=== PATIENT | female | born 1975 | race Caucasian/White ===

== ENCOUNTER 2024-04-22 00:16 | Outpatient (CLI) | payer MEDICARE, SELFPAY ==
--- NOTE | 2024-04-22 | DI.US_ITS ---
Exam(s) US RENAL EXAM: US RENAL CLINICAL HISTORY: Urinary retention, R33.9; assess for hydro and f/u on renal cysts TECHNIQUE: Ultrasound of both kidneys performed using standard protocol. COMPARISON: No exams were available for comparison FINDINGS: RIGHT KIDNEY: Measures 9.2 cm in length. There is somewhat decreased corticomedullary differentiation implying chr onic renal disease, similar to the opposite side.. There are cortical cysts seen in both kidneys, la rgest on the right side measuring 1.3 x 1.5 cm. No solid renal masses. However, there are multiple tiny hyperechoic foci seen throughout the kidney, similar to the opposite side. These are probably t iny nonobstructive calculi LEFT KIDNEY: Exhibits similar appearance to the right kidney. Measures 9.4 cm in length. Also exhibits decreased corticomedullary differentiation, similar to the opposite side. There are few cortical cysts also noted the largest measuring 1.0 x 1.4 cm. This is at the midpole level. There are no solid renal masses but there also multiple small hyperechoic foci seen throughout the left kidney similar to the opposite side. URINARY BLADDER: Prevoid volume is 562 cc Postvoid volume is 11 cc No evidence of bladder mass nor diverticuli. However, the bladder wall is indented by what appears t o be a lobulated fibroid uterus. Ureterovesical jets: Both not able to be visualized. IMPRESSION: 1. Both kidneys exhibit symmetrical appearing decreased corticomedullary differentiation and multipl e hyperechoic foci throughout both kidneys, possibly representing nonobstructive calculi. Appearance of the kidneys is that of chronic bilateral medical renal disease. There are no solid renal masses and no hydronephrosis. 2. Urinary bladder empties adequately. There is no obvious mass within the urinary bladder but the urinary bladder is significantly indented by enlarged lobulated fibroid appearing uterus. Recommend dedicated ultrasound examination of uterus to differentiate fibroids from endometrium and endometrial thickness as well as visualization of the ovaries. DATA REPOSITORY:
--- OUTSIDE RECORDS SUMMARY | 2024-04-22 00:18 | XMS_ITS | Encounter Summary ---
Author Organization [facility] [place] [address] Care Team Providers Care Resort Manager Name Role Phone Haylie Steward MD Primary Care Provider + [phone] Encounter Details Date Type Department Care Team (Latest Contact Info) Description 04/18/2024 Travel Social History Tobacco Use Types Packs/Day Years Used Date Smoking Tobacco: Never Smokeless Tobacco: Never Alcohol Use Standard Drinks/Week Comments Not Currently 0 (1 standard drink = 0.6 oz pur e alcohol) [id number] Health Literacy Answer Date Recor ded How often do you need to hav e someone help you when you read instructions, pamphlets, or other written material from your doctor or pharmacy? Rarely 02/15/2024 [facility] Utilities Answer Date Recorded In the past 12 months has th e electric, gas, oil, or water company threatened to shut off services in your home? No 02/15/2024 Overall Financial Resource Strain (CARDIA) Answe r Date Recorded How hard is it for you to pa y for the very basics like food, housing, medical care, and heating? Not hard at all 02/15/2024 Hunger Vital Sign Answer Date Recorded Within the past 12 months, y ou worried that your food would run out before you got the money to buy more. Never true 02/15/20 24 Within the past 12 months, t he food you bought just didn't last and you didn't have money to get more. Never true 02/15/2024 PRAPARE - Transportation Answer Date Re corded In the past 12 months, has l ack of transportation kept you from medical appointments or from getting medications? No 02/01 In the past 12 months, has l ack of transportation kept you from meetings, work, or from getting things needed for daily living? No 02/15/2024 Housing Stability Vital Sign Answer Jevon e Recorded In the last 12 months, was t here a time when you were not able to pay the mortgage or rent on time? Patient declined 02/15/20 24 In the past 12 months, how m any times have you moved where you were living? 0 02/15/2024 At any time in the past 12 m onths, were you homeless or living in a care home (including now)? No 02/15/2024 [facility] IPV Inpatient Questions Answer Date Recorded Does Anyone Try to Keep You From Having Contact with Others or Doing Things Outside Your Home? no 02/29/2024 Feels Threatened by Someone no 02/02 Feels Unsafe at Home or Work/School no 02/29/2024 Physical Signs of Abuse Present no 02/29/2024 Sex and Gender Information Value Date Recorded Sex Assigned at Female 02/25/2023 12:01 PM EDT Gender Identity Female 02/25/2023 12:01 PM EDT Sexual Orientation Straight 02/25/2023 12 :01 PM EDT documented as of this encounter Plan of Treatment Upcoming Encounters Date Type Department Care Team (Latest Contact Info) Description 04/22/2024 9:45 AM EST Scheduled View Only Radiation Oncology at [address] [phone] 04/25/2024 8:30 AM EST Scheduled View Only Radiation Oncology at [address] [phone] 04/26/2024 3:00 PM EST Scheduled View Only Radiation Oncology at [address] [phone] 04/26/2024 3:30 PM EST Office Visit Radiation Oncology at [address] [phone] Ofe Fonseca MD [facility] [place] [address] 04/28/2024 2:45 PM EST Scheduled View Only Radiation Oncology at [address] [phone] 04/29/2024 3:00 PM EST Scheduled View Only Radiation Oncology at [address] [address] 05/02/2024 3:45 PM EST Scheduled View Only Radiation Oncology at [address] [phone] 05/03/2024 1:45 PM EST Scheduled View Only Radiation Oncology at [address] [address] 05/03/2024 2:15 PM EST Office Visit Radiation Oncology at [address] [phone] Ofe Fonseca MD [facility] [place] [address] 05/05/2024 8:15 AM EST Scheduled View Only Radiation Oncology at [address] [address] 05/06/2024 12:30 PM EST Scheduled View Only Radiation Oncology at [address] [phone] 05/09/2024 3:00 PM EST Scheduled View Only Radiation Oncology at [address] [address] 05/10/2024 2:30 PM EST Scheduled View Only Radiation Oncology at [address] [phone] 05/10/2024 3:15 PM EST Office Visit Radiation Oncology at [address] [address] Ofe Fonseca MD [facility] [place] [address] 05/11/2024 2:45 PM EST Scheduled View Only Radiation Oncology at [address] [phone] 06/03/2024 3:30 PM EST Appointment Ultrasound at [place] [phone] Mira Hutchison [facility] [place] [address] 06/23/2024 4:00 PM EST Appointment Mammography/DXA at [place] [phone] Miryam Feliciano MD [facility] [place] [address] 07/12/2024 8:00 AM EDT Laboratory Appointment Lab [address] [place], [place] [phone] 07/12/2024 9:30 AM EDT Office Visit Nephrology Hypertension at [place] [phone] Sharmin Jean-Baptiste, [facility] [place] [address] 07/13/2024 10:30 AM EDT Laboratory Appointment [place] [facility] [address] [place] [phone] 07/13/2024 11:30 AM EDT Office Visit Hematology [place] [phone] Salena Alvares, [facility] [place] [address] 07/13/2024 12:45 PM EDT Appointment Hematology and Oncology at [place] [phone] documented as of this encounter Visit Diagnoses Not on filedocumented in this encounter Care Teams Resort Manager Relationship Specialty Start Date End Date Haylie Steward MD [facility] [place] [place] [address] PCP - General General Internal Medicine 08/04/22 documented as of this encounter
--- OUTSIDE RECORDS SUMMARY | 2024-04-22 00:18 | XMS_ITS | Encounter Summary ---
Author Organization [facility] [place] [address] Care Team Providers Care Circuit Breaker Mechanic Name Role Phone Haylie Steward MD Primary Care Provider + [phone] Encounter Details Date Type Department Care Team (Latest Contact Info) Description 04/20/2024 Travel Social History Tobacco Use Types Packs/Day [...] from your doctor or pharmacy? Rarely 02/15/2024 [facility] Utilities Answer Date Recorded In the past [...] were you homeless or living in a assisted (including now)? No 02/15/2024 [facility] IPV Inpatient [...] EST Scheduled View Only Radiation Oncology at [address] [address] 04/25/2024 8:30 AM EST Scheduled View Only Radiation Oncology at [address] [phone] 04/26/2024 3:00 PM EST Scheduled View Only Radiation Oncology at [address] [phone] 04/26/2024 3:30 PM EST Office Visit Radiation Oncology at [address] [phone] Ofe Fonseca MD [facility] [place] [address] 04/28/2024 2:45 PM EST Scheduled View Only Radiation Oncology at [address] [address] 04/29/2024 3:00 PM EST Scheduled View Only Radiation Oncology at [address] [address] 05/02/2024 3:45 PM EST Scheduled View Only Radiation Oncology at [address] [phone] 05/03/2024 1:45 PM EST Scheduled View Only Radiation Oncology at [address] [phone] 05/03/2024 2:15 PM EST Office Visit Radiation Oncology at [address] [address] Ofe Fonseca MD [facility] [place] [address] 05/05/2024 8:15 AM EST Scheduled View Only Radiation Oncology at [address] [address] 05/06/2024 12:30 PM EST Scheduled View Only Radiation Oncology at [address] [address] 05/09/2024 3:00 PM EST Scheduled View Only Radiation Oncology at [address] [address] 05/10/2024 2:30 PM EST Scheduled View Only Radiation Oncology at [address] [address] 05/10/2024 3:15 PM EST Office Visit Radiation Oncology at [address] [address] Ofe Fonseca MD [facility] [place] [address] 05/11/2024 2:45 PM EST Scheduled View Only Radiation Oncology at [address] [address] 06/03/2024 3:30 PM EST Appointment Ultrasound at [place] [phone] Mira Hutchison [facility] [place] [address] 06/23/2024 4:00 PM EST Appointment Mammography/DXA at [place] [phone] Miryam Feliciano MD [facility] [place] [address] 07/12/2024 8:00 AM EDT Laboratory Appointment Lab [address] [place], [place] [phone] 07/12/2024 9:30 AM EDT Office Visit Nephrology Hypertension at [place] [phone] Sharmin Jean-Baptiste, [facility] [place] [address] 07/13/2024 10:30 AM EDT Laboratory Appointment [place] [facility] [place] [address] [place] [phone] 07/13/2024 11:30 AM EDT Office Visit Hematology [place] [phone] Salena Alvares, [facility] [place] [address] 07/13/2024 12:45 PM EDT Appointment Hematology and Oncology at [place] [phone] documented as of this encounter Visit Diagnoses Not on filedocumented in this encounter Care Teams Circuit Breaker Mechanic Relationship Specialty Start Date End Date Haylie Steward MD [facility] [place] [address] PCP - General General Internal Medicine 08/04/22 documented as of this encounter
--- OUTSIDE RECORDS SUMMARY | 2024-04-22 00:18 | XMS_ITS ---
[place] [address] Care Team Providers Care Assembler Skylights Name Role Phone Haylie Steward MD Primary Care Provider [phone] Active Problems Problem Noted Date Diagnosed Date Malignant neoplasm of lower- inner quadrant of left breast in female, estrogen receptor positive 01/19/2024 Overview (01/19/2024): 01/14/24 bx [place]: ER+/ID+/HER2 pending left breast IDC, low grade, and DCIS, low grade 01/14/24 left breast U/S bx [place]: 1.3 cm, 7:00, 3 FN Bipolar 1 disorder 07/15/2023 [place] intoxication, accide ntal or unintentional, initial encounter 09/06/2022 CKD (chronic kidney disease) stage 2, GFR 60-89 ml/min 08/08/2022 Hyperparathyroidism 08/08/2022 Anemia 08/08/2022 Chronic pansinusitis 08/13/2020 Chronic tonsillitis 08/13/2020 White coat syndrome without diagnosis of hyperte nsion 07/15/2018 Abnormal antibody titer 11/29/2017 Herpes zoster without complication 11/29/2017 Bipolar affective, mixed 03/03/2016 Overview (10/01/2022): On lithium since 2003 On lithium since 2003 Overview: On lithium since 2003 H/O toe surgery 03/03/2016 Hypothyroidism 03/03/2016 Irritable bowel syndrome 03/03/2016 Overview (10/01/2022): Uses Lotronex Uses Lotronex Overview: Uses Lotronex Benign neoplasm of skin 08/10/2013 Current Oncology Plans Goserelin (Zoladex) [place] [place] 10.8 mg* Plan Start Date:04/15/2024 Plan Provider:Miryam Feliciano MD Linked Problems Malignant neoplasm of lower- inner quadrant of left breast in female, estrogen receptor positive Treatment Medications No medications scheduled. Past Plans No past plan information found. Radiation Treatments * No radiation treatments are documented for this patient in [facility]. Treatments may have been administered in another system.
--- OUTSIDE RECORDS SUMMARY | 2024-04-22 00:18 | XMS_ITS | Clinical Summary ---
Author Organization [facility] Address [facility] [place] [address] Care Team Providers Care Hospital Coordinator Name Role Phone Haylie Steward MD Primary Care Provider [phone] Allergies Active Allergy Reactions Criticality Noted Date Comments Ibuprofen Low 08/10/2013 Patient states it affects her bipolar medication [place]. Nsaids (Non-Steroidal Anti-Inflammatory Drug) 03/03/2016 All interfere with lithium Tolmetin 03/03/2016 All interfere with lithium Medications Medication Sig Dispensed Refills Start Date End Date Status clonazePAM (KlonoPIN) 0.5 mg disintegrating tablet Take 0.5 mg by mouth daily as needed. Active acetaminophen (Tylenol) 500 mg tablet Take 1,000 mg by mouth every 6 hours as needed for Pain. Active calciTRIoL (Rocaltrol) 0.25 mcg capsuleIndications:S tage 3a chronic kidney disease (CKD) Take 1 capsule by mouth daily. 90 tablet 3 07/28/2023 Active zolpidem (Ambien) 5 mg tablet Take 1 tablet by mouth nightly as needed for Sleep. 10 tablet 1 02/08/2024 Active Additional Information Patient not taking.Reported on 04/19/2024 Bifidobacterium infantis (ALIGN) 4 mg Capsule Take by mouth. Active loperamide (Imodium A-D) 2 mg capsule Take 2 mg by mouth 4 times daily as needed for Diarrhea. Takes one tablet twice daily Active psyllium seed, with sugar, (FIBER ORAL) Take by mouth 3 times daily. Active emollient combination no.111 (REMEDY PHYTOPLEX MOISTURIZER TOP) Apply topically. Phytoplex Remedy Moisturizer: Apply to area of radiation twice a day but no less than 2 hours before a treatment. Active divalproex ER (Depakote ER) 250 mg ER 24 hr tablet 2 tabs AM and 3 tabs PM. 150 tablet 2 03/23/2024 Active buPROPion XL (Wellbutrin XL) 150 mg XL 24 hr tablet Take 1 tablet by mouth every morning. 90 tablet 03/23/2024 Active pilocarpine (Salagen) 5 mg tablet Take 1 tablet by mouth 3 times daily. 90 tablet 2 03/23/2024 Active cariprazine (Vraylar) 1.5 mg capsule 03/23/2021 Active multivitamin with minerals (One-A-Day) Tablet Take 1 tablet by mouth. Active letrozole (Femara) 2.5 mg tablet Take 1 tablet by mouth daily. Please call clinic before starting. 90 tablet 3 04/15/2024 Active Additional Information Patient not taking.Reported on 04/19/2024 Active Problems Problem Noted Date Diagnosed Date Malignant neoplasm of lower- inner quadrant of left breast in female, estrogen receptor positive 01/19/2024 Overview (01/19/2024): 01/14/24 bx [place]: ER+/MS+/HER2 pending left breast IDC, low grade, and DCIS, low grade 01/14/24 left breast U/S bx [place]: 1.3 cm, 7:00, 3 FN Bipolar 1 disorder 07/15/2023 [place] intoxication, accide ntal or unintentional, initial encounter [...] Uses Lotronex Benign neoplasm of skin 08/10/2013 Encounters Date Type Department Care Team Description 04/20/2024 Travel 04/19/2024 11:00 AM EST Office Visit Radiation Oncology at [address] [phone] Ofe Fonseca MD Malignant neoplasm of lower-inner quadrant of left breast in female, estrogen receptor positive 04/18/2024 Travel 04/15/2024 2:42 PM EST - 04/15/2024 11:59 PM EST Hospital Encounter Hematology and Oncology at [place] [phone] Malignant neoplasm of lower-inner quadrant of left breast in female, estrogen receptor positive Discharge Disposition: Home 04/15/2024 Travel 04/15/2024 Orders Only Hematology [place] [phone] Salena Alvares APRN 04/14/2024 9:20 AM EST [place] [address] Mira Hutchison, JULIUS Urinary retention 04/14/2024 Telephone Hematology [place] [phone] Haylie Pinzon, bull chain operator Management (Misc questions about AI and [place]) 04/13/2024 Travel 04/13/2024 Telephone Hematology [place] [phone] Kimberlee Kennedy RN 04/12/2024 12:15 PM EST Office Visit Radiation Oncology at [address] [phone] Ofe Fonseca MD Malignant neoplasm of lower-inner quadrant of left breast in female, estrogen receptor positive 04/11/2024 9:40 AM EST Office Visit Neph[place] [address] Sharmin Jean-Baptiste APRN CKD (chronic kidney disease) stage 2, GFR 60-89 ml/min; Vitamin D deficiency; Stress incontinence, female 04/11/2024 8:30 AM EST Laboratory Appointment Lab [address] [place] [address] CKD (chronic kidney disease) stage 2, GFR 60-89 ml/min; Vitamin D deficiency 04/11/2024 Travel 04/08/2024 Travel 04/07/2024 3:30 PM EST Office [place] [address] Yoselin Rolle APRN Malignant neoplasm of lower-inner quadrant of left breast in female, estrogen receptor positive 04/07/2024 2:00 PM EST Office Visit Hematology [place] [address] Miryam Feliciano MD Malignant neoplasm of lower-inner quadrant of left breast in female, estrogen receptor positive; Aromatase inhibitor use; Medication management 04/07/2024 Travel 03/22/2024 12:30 PM EST Ancillary Appointment Radiation Oncology at [address] [address] Ofe Fonseca MD Malignant neoplasm of lower-inner quadrant of left breast in female, estrogen receptor positive 03/22/2024 Notes Only Radiation Oncology at [address] [phone] Anusha Washburn, GRAIN MIXER 03/22/2024 Travel 03/22/2024 Orders [place] [address] Ofe Fonseca MD Malignant neoplasm of lower-inner quadrant of left breast in female, estrogen receptor positive 03/20/2024 Travel 03/15/2024 2:55 PM EST Laboratory Appointment Lab [address] [place] [address] Bipolar 1 disorder 03/15/2024 Travel 03/01/2024 Telephone General [place] [address] Danelle Davis RN 02/29/2024 2:30 PM EDT - 02/29/2024 3:48 PM EDT Surgery Out[facility] [place] [phone] Hailey Dawson MD MASTECTOMY PARTIAL (WRVU 10.13) 02/29/2024 2:05 PM EDT Anesthesia Event Outpatient Surgery [place] [phone] Obdulio Herring MD Mancini, Amy L, [facility] 02/29/2024 1:00 PM EDT - 02/29/2024 4:42 PM EDT Hospital Encounter Out[facility] [place] [phone] Hailey Dawson MD Discharge Disposition: Home 02/22/2024 9:00 AM EDT Office Visit Radiation Oncology at [address] [phone] Ofe Fonseca MD Malignant neoplasm of lower-inner quadrant of left breast in female, estrogen receptor positive 02/22/2024 Travel 02/15/2024 External Results Laboratory [place] [phone] 02/15/2024 Travel 02/12/2024 Telephone Hematology and Oncology at [place] [phone] Sharmin Farnsworth Other (02/11 - Oncotype submitted) 02/11/2024 Notes Only Hematology and Oncology at [place] [phone] Miryam Feliciano MD 02/05/2024 1:12 PM EDT Anesthesia Event [place] [place] [address] Betsy Alcaraz MD 02/05/2024 12:40 PM EDT - 02/05/2024 2:37 PM EDT Surgery [facility] [place] [phone] Hailey Dawson MD MASTECTOMY PARTIAL (WRVU 10.13) 02/05/2024 12:30 PM EDT - 02/05/2024 11:59 PM EDT Hospital [place] [address] Hailey Dawson MD History of breast cancer Discharge Disposition: Home 02/05/2024 12:00 PM EDT - 02/05/2024 12:29 PM EDT Hospital [place] [address] Hailey Dawson MD History of breast cancer Discharge Disposition: Home 02/05/2024 11:12 AM EDT - 02/05/2024 4:30 PM EDT Hospital Encounter Outpatient [facility] [place] [phone] Hailey Dawson MD Discharge Disposition: Home 02/04/2024 Telephone Mammography at [place] [phone] Glendy Tovar, RN 02/02/2024 Patient Outreach Hematology and Oncology at [place] [phone] Alma Moseley RN 02/01/2024 8:50 AM EDT - 02/01/2024 11:59 PM EDT Hospital [place] [address] Aleida Sosa MD Abnormal finding on breast imaging Discharge Disposition: Home 02/01/2024 8:49 AM EDT Hospital [place] [address] Hailey Dawson MD History of breast cancer Discharge Disposition: Home 02/01/2024 8:49 AM EDT Hospital [place] [address] Aleida Sosa MD Abnormal finding on breast imaging Discharge Disposition: Home 02/01/2024 Travel 01/28/2024 8:05 AM EDT Laboratory Appointment Lab [place] [address] Bipolar 1 disorder 01/28/2024 Orders Only General Surgery at [place] [phone] Hailey Dawson MD History of breast cancer 01/28/2024 Travel 01/26/2024 Travel 01/26/2024 Patient Outreach Hematology and Oncology at [place] [phone] Alma Moseley RN 01/25/2024 12:51 PM EDT - 01/25/2024 11:59 PM EDT Hospital [place] [address] Martha Martino MD Abnormal finding on breast imaging Discharge Disposition: Home 01/25/2024 7:00 AM EDT Office [place] [address] Hailey Dawson MD History of breast cancer; Malignant neoplasm of lower-inner quadrant of left breast in female, estrogen receptor positive 01/25/2024 Patient Outreach Hematology [place] [address] Alma Moseley RN 01/24/2024 Travel 01/22/2024 Patient Outreach Hematology [place] [address] Alma Moseley, RN from Last 3 Months Immunizations Name Administration Dates Next Due Hepatitis B Adult (Engerix-B, Recombivax) 2018 Influenza (FluBlok) Quadriva lent, Recombinant Preservative Free 01/24/2020 Influenza Quadrivalent, Preservative Free 2018,05/24/2018 Influenza Unspecified Formulation 02/22/2017 MMR Vaccine LIVE 04/21/2018 Tdap (Adacel, Boostrix) 11/19/2017 Tuberculin Skin Test, PPD 11/19/2017 Family History Medical History Relation Comments Prostate Cancer Father Prostate Cancer Maternal Grandfather Arrhythmia Mother Bladder Cancer Mother Melanoma Mother Cancer Paternal Aunt salivary gland c ancer Pancreatic Cancer Paternal Aunt Prostate Cancer Paternal Uncle Breast Cancer Neg Hx Ovarian Cancer Neg Hx Relation Status Comments Father Alive Maternal Grandfather Mother Alive Paternal Aunt Alive Paternal Uncle Alive Social History Tobacco Use Types Packs/Day Years Used Date Smoking Tobacco: Never Smokeless Tobacco: Never Tobacco Cessation:Counseling Given: Not Answered Alcohol Use Standard Drinks/Week Comments Not Currently 0 (1 standard drink = 0.6 oz pur e alcohol) B1300 Health Literacy Answer Date Recor ded How often do you need to hav e someone help you when you read instructions, pamphlets, or other written material from your doctor or pharmacy? Rarely 02/15/2024 [facility] Utilities Answer Date Recorded In [...] were you homeless or living in a snf (including now)? No 02/15/2024 [facility] IPV Inpatient [...] Orientation Straight 02/25/2023 12 :01 PM EDT Last Filed Vital Signs Vital Sign Reading Time Taken Comments Blood Pressure 144/74 04/19/2024 11:12 AM EST Pulse 69 04/19/2024 11:12 AM EST Temperature 37.1 ??C (98.8 ??F) 04/19/2024 1 1:12 AM EST Respiratory Rate 16 04/19/2024 11:1 2 AM EST Oxygen Saturation 100% 04/19/2024 11: 12 AM EST Inhaled Oxygen Concentration - - Weight 65.7 kg (144 lb 12.8 oz) 024 11:12 AM EST Height 157.5 cm (5' 2.01) 04/12/2024 1 2:02 PM EST Body Mass Index 26.48 04/12/2024 12:02 PM EST Plan of Treatment Upcoming Encounters Date Type Department Care Team (Latest Contact Info) Description 04/22/2024 9:45 AM EST Scheduled View Only Radiation Oncology at [address] [phone] 04/25/2024 8:30 AM EST Scheduled View Only Radiation Oncology at [address] [phone] 04/26/2024 3:00 PM EST Scheduled View Only Radiation Oncology at [address] [phone] 04/26/2024 3:30 PM EST Office Visit Radiation Oncology at [address] [phone] Ofe Fonseca MD [facility] [place] [address] 04/28/2024 2:45 PM EST Scheduled View Only Radiation Oncology at [address] [phone] 04/29/2024 3:00 PM EST Scheduled View Only Radiation Oncology at [address] [phone] 05/02/2024 3:45 PM EST Scheduled View Only Radiation Oncology at [address] [phone] 05/03/2024 1:45 PM EST Scheduled View Only Radiation Oncology at [address] [address] 05/03/2024 2:15 PM EST Office Visit Radiation Oncology at [address] [phone] Ofe Fonseca MD [facility] [place] [address] 05/05/2024 8:15 AM EST Scheduled View Only Radiation Oncology at [address] [address] 05/06/2024 12:30 PM EST Scheduled View Only Radiation Oncology at [address] [phone] 05/09/2024 3:00 PM EST Scheduled View Only Radiation Oncology at [address] [phone] 05/10/2024 2:30 PM EST Scheduled View Only Radiation Oncology at [address] [phone] 05/10/2024 3:15 PM EST Office Visit Radiation Oncology at [address] [phone] Ofe Fonseca MD [facility] [place] [address] 05/11/2024 2:45 PM EST Scheduled View Only Radiation Oncology at [address] [address] 06/03/2024 3:30 PM EST Appointment Ultrasound at [place] [phone] Mira Hutchison [facility] [place] [address] 06/23/2024 4:00 PM EST Appointment Mammography/DXA at [place] [phone] Miryam Feliciano MD [facility] [place] [address] 07/12/2024 8:00 AM EDT Laboratory Appointment Lab [place] [phone] 07/12/2024 9:30 AM EDT Office Visit Nephrology Hypertension at [place] [phone] Sharmin Jean-Baptiste [facility] [place] [address] 07/13/2024 10:30 AM EDT Laboratory Appointment Lab at [facility] Hematology Oncology [address] [place] [phone] 07/13/2024 11:30 AM EDT Office Visit Hematology and Oncology at [place] [phone] Salena Alvares APRN [facility] [place] [address] 07/13/2024 12:45 PM EDT Appointment Hematology and Oncology at [facility] [place] [phone] Health Maintenance Due Date Last Done Comments CT Colonography 1974 FIT DNA 1974 FIT 1974 Sigmoidoscopy 1974 Pneumococcal Vaccine: At-Ris k 5-64yrs (1 of 2 - PCV) 02/24/1980 HIV screen 02/24/1992 Hepatitis C Screening 02/24/1992 HPV test 02/24/2004 PAP Smear 02/24/2004 Breast Cancer Share Decision Needed 2014 Hepatitis B vaccine (0-59 yrs) (2) 06/29/20182018 Covid-19 Vaccine (2 - 2023-2 5 season) 2024 04/12/2021 Influenza (Flu) vaccine (1 o f 1 - Influenza standard series) 01/03/2024 01/24/2020, 01/18/2019, 05/24/2018, Additional history exists Zoster vaccine (1 of 2) 02/24/2024 Breast Cancer screening 01/13/2026 01/14/20, 11/10/2022, 11/10/2022 Diabetes Screening (HgbA1C o r Glucose) 04/11/2027 04/11/2024, 01/21/2024, 10/26/2023, Additional history exists Lipid Screening 06/25/2027 06/25/2022 Tetanus/Diphtheria/Pertussis Vaccines (2 - Td or Tdap) 11/20/2027 11/19/2017 Colonoscopy 06/11/2033 06/11/2023, 06/11/2023 Colorectal Cancer Screening 06/11/2033 Sigmoidoscopy (10 year) with FIT yearly 06/11/2033 06/11/2023, 06/11/2023 Procedures Procedure Name Priority Date/Time Associated Diagnosis Comments URINALYSIS MICROSCOPIC EXAM Routine 04/11/2024 9:07 AM EST CKD (chronic kidney disease) stage 2, GFR 60-89 ml/min URINALYSIS DIPSTICK Routine 04/11/2024 9 :07 AM EST CKD (chronic kidney disease) stage 2, GFR 60-89 ml/min _URINALYSIS WITH MICRSOCOPIC Routine 04/11/2024 9:07 AM EST CKD (chronic kidney disease) stage 2, GFR 60-89 ml/min PROTEIN/CREATININE RATIO, URINE Routine 04/11/2024 9:07 AM EST CKD (chronic kidney disease) stage 2, GFR 60-89 ml/min ALBUMIN LEVEL Routine 04/11/2024 9:05 AM EST CKD (chronic kidney disease) stage 2, GFR 60-89 ml/min BASIC METABOLIC PANEL Routine 04/11/2024 9:05 AM EST CKD (chronic kidney disease) stage 2, GFR 60-89 ml/min CBC (WITH DIFF) Routine 04/11/2024 9:05 AM EST CKD (chronic kidney disease) stage 2, GFR 60-89 ml/min FERRITIN Routine 04/11/2024 9:05 AM EST CKD (chronic kidney disease) stage 2, GFR 60-89 ml/min IRON AND TIBC Routine 04/11/2024 9:05 AM EST CKD (chronic kidney disease) stage 2, GFR 60-89 ml/min PHOSPHORUS Routine 04/11/2024 9:05 AM EST CKD (chronic kidney disease) stage 2, GFR 60-89 ml/min PTH Routine 04/11/2024 9:05 AM EST CKD (chronic kidney disease) stage 2, GFR 60-89 ml/min VITAMIN D, 25-HYDROXY Routine 04/11/2024 9:05 AM EST CKD (chronic kidney disease) stage 2, GFR 60-89 ml/min Vitamin D deficiency CT RAD ONC CHEST INTERP ONLY Routine 03/22/2024 1:33 PM EST Carcinoma of lower-inner quadrant of breast, left TSH Routine 03/15/2024 12:27 PM EST Bipolar 1 disorder T4, FREE Routine 03/15/2024 12:27 PM EST Bipolar 1 disorder T3, FREE Routine 03/15/2024 12:27 PM EST Bipolar 1 disorder T4 TOTAL Routine 03/15/2024 12:27 PM EST Bipolar 1 disorder T3 TOTAL Routine 03/15/2024 12:27 PM EST Bipolar 1 disorder XR FLUORO NO RAD <1HR - OR USE Routine 02/29/2024 3:25 PM EDT MAMMO SPECIMEN LEFT Routine 02/29/2024 3 :20 PM EDT SURGICAL PATHOLOGY Routine 02/29/2024 3: 16 PM EDT MODIFIER MAGSEED Yes 02/29/2024 2:07 PM EDT BREAST CANCER MODIFIER , RE-EXCISION Yes 02/29/2024 2:07 PM EDT BREAST CANCER Mastectomy Partial ([id number]) Yes 02/29/2024 2:07 PM EDT BREAST CANCER GENETIC STUDY SCAN 02/24/2024 12 :00 AM EDT SURGICAL PATHOLOGY SCAN Routine 02/15/2024 1:24 PM EDT MAMMO SPECIMEN LEFT Routine 02/05/2024 2 :53 PM EDT History of breast cancer MAMMO SPECIMEN LEFT Routine 02/05/2024 2 :24 PM EDT History of breast cancer SURGICAL PATHOLOGY Routine 02/05/2024 2: 03 PM EDT MODIFIER MAGSEED Yes 02/05/2024 1:12 PM EDT breast cancer Intraop [place] Lymph Id W/Dye Injection ([id number]) Yes 02/05/2024 1:12 PM EDT breast cancer Bx/Remv, Lymph Node, Deep Axill ([id number]) Yes 02/05/2024 1:12 PM EDT breast cancer Mastectomy Partial ([id number]) Yes 02/05/2024 1:12 PM EDT breast cancer MAMMO DIAGNOSTIC WITHOUT CAD LEFT Routine 02/01/2024 10:36 AM EDT Abnormal finding on breast imaging MAMMO MAGSEED PLACEMENT MULTIPLE LEFT Routine 02/01/2024 10:17 AM EDT History of breast cancer MAMMO US BIOPSY MULTIPLE LEFT Routine 02/01/2024 10:17 AM EDT Abnormal finding on breast imaging SURGICAL PATHOLOGY Routine 02/01/2024 10 :06 AM EDT Abnormal finding on breast imaging VALPROIC ACID LEVEL, TOTAL Routine 01/28/2024 8:10 AM EDT Bipolar 1 disorder MAMMO BREAST US LIMITED LEFT Routine 01/25/2024 1:45 PM EDT Abnormal finding on breast imaging MAMMO SCREENING CAD BILATERAL (CH) Routine 01/14/2024 8:39 AM EDT COLONOSCOPY Routine 06/11/2023 3:10 PM EST HC VENIPUNCTURE Routine 06/25/2022 9:49 AM EST Bipolar affective disorder, remission status unspecified from Last 3 Months or Most Recently Relevant to Health Maintenance Results * Urinalysis Microscopic Exam (04/11/2024 9:07 AM EST) Bacteria, Urine None None /HPF 10:15 AM EST [facility] RBC, Urine 0 0 - 4 /HPF 04/11/2024 10:15 AM EST [facility] WBC, Urine 0 0 - 5 /HPF 04/11/2024 10:15 AM [facility] Squamous Epithelial Cells, Urine 0 0 - 5 /HPF 04/11/2024 10:15 AM [facility] Hyaline Casts, Urine 0 0 - 2 /LPF 04/11/2024 10:15 AM [facility] Urine Non Blood Collection / Unknown 04/11/2024 9:07 AM EST 04/11/2024 9:07 AM EST Sharmin eJan-Baptiste APRN URINE ORDERABLES Performing Organization Address City/[facility]/ZIP Co de Phone Number [facility] [place] [address] * Protein/Creatinine Ratio, urine (04/11/2024 9:07 AM EST) Protein, Urine <4 0 - 12 mg/dL 04/11/2024 10:07 AM [facility] Creatinine, Urine 10 mg/dL 04/11/2024 10:07 AM [facility] Protein / Creatinine Ratio, Urine <0.4 ratio 04/11/2024 10:07 AM [facility] Urine URINE SPECIMEN / Unknown Non Blood Collection / Unknown 04/11/2024 9:07 AM EST 04/11/2024 9:07 AM EST Sharmin Jean-Baptiste APRN URINE ORDERABLES Performing Organization Address City/[facility]/ZIP Co de Phone Number [facility] [place] [address] * Urinalysis Dipstick (04/11/2024 9:07 AM EST) Glucose, Urine Dipstick Negative Negative 04/11/2024 10:15 AM [facility] Protein, Urine Dipstick Negative Negative 04/11/2024 10:15 AM [facility] Bilirubin, Urine Dipstick Negative Negative 04/11/2024 10:15 AM [facility] Comment:Clinical correlation required for positive Urine Bilirubin results as false positive may occur with some drugs and drug related products. If a false positive is suspected a serum total bilirubin should be considered if clinically indicated. Urobilinogen, Urine Dipstick Normal Normal, 0.2 mg/dL, 1.0 mg/dL 04/11/2024 10:15 AM [facility] pH, Urine (dipstick) 7.0 5.0 - 8.0 04/11/2024 10:15 AM [facility] Blood, Urine Dipstick Negative Negative 04/11/2024 10:15 AM [facility] Ketone, Urine Dipstick Negative Negative 04/11/2024 10:15 AM [facility] Nitrite, Urine Dipstick Negative Negative 04/11/2024 10:15 AM [facility] Leukocytes, Urine Dipstick Negative Negative 04/11/2024 10:15 AM [facility] Specific [place] Urine Automated 1.006 1.005 - 1.030 04/11/2024 10:15 AM [facility] Appearance, Urine Dipstick Clear Clear 04/11/2024 10:15 AM [facility] Color, Urine Dipstick Yellow Yellow, Dark Yellow 04/11/2024 10:15 AM [facility] CULTURE ADDED? 04/11/2024 10:15 AM [facility] Urine Non Blood Collection / Unknown 04/11/2024 9:07 AM EST 04/11/2024 9:07 AM EST Sharmin Jean-Baptiste APRN URINE ORDERABLES [facility] [place] [address] * (ABNORMAL) PTH (04/11/2024 9:05 AM EST) Parathyroid Hormone 92(H) 15 - 65 pg/mL 04/11/2024 10:03 AM [facility] Blood VENOUS BLOOD SPECIMEN / Unknown Venipuncture / Unknown 04/11/2024 9:05 AM EST 04/11/2024 9:05 AM EST Sharmin Antonia Jean-Baptiste VISUAL MERCHANDISING DIRECTOR CHEMISTRY ORDERAB LES [facility] [place] [address] * (ABNORMAL) Iron and TIBC (04/11/2024 9:05 AM EST) Iron 73 30 - 150 mcg/dL 04/11/2024 11:11 AM EST [facility] TIBC 381 250 - 450 mcg/dL 04/11/2024 11:11 AM EST [facility] Iron Saturation 19(L) 20 - 50 % 11:11 AM EST [facility] Blood VENOUS BLOOD SPECIMEN / Unknown Venipuncture / Unknown 04/11/2024 9:05 AM EST 04/11/2024 9:05 AM EST Sharmin Antonia Jean-Baptiste VISUAL MERCHANDISING DIRECTOR CHEMISTRY ORDERAB LES Performing Organization Address City/[facility]/ZIP Co de Phone Number [facility] [place] [address] * Vitamin D, 25-Hydroxy (04/11/2024 9:05 AM EST) Vitamin D Total 25 OH 33 21 - 100 ng/ml 04/11/2024 11:53 AM EST [facility] Vitamin D Total 25 OH Interp Sufficient 04/11/2024 11:53 AM EST [facility] Blood VENOUS BLOOD SPECIMEN / Unknown Venipuncture / Unknown 04/11/2024 9:05 AM EST 04/11/2024 9:05 AM EST Sharmin Antonia Jean-Baptiste VISUAL MERCHANDISING DIRECTOR CHEMISTRY ORDERAB LES [facility] [place] [address] * (ABNORMAL) CBC (with Diff) (04/11/2024 9:05 AM [facility]) [facility] White Blood Cell 4.88 4.00 - 9.50 x10(3)/mc L 04/11/2024 9:37 AM [facility] Red Blood Cell 4.47 4.00 - 5.21 x10(6)/mc L 04/11/2024 9:37 AM [facility] Hemoglobin 13.7 11.7 - 15.5 g/dL 04/11/2024 9:37 AM [facility] Hematocrit 43.1 35.7 - 45.8 % 04/11/2024 9:37 AM [facility] Mean Cell Volume 96.4(H) 82.6 - 94.4 fL 04/11/2024 9:37 AM [facility] Mean Cell Hemoglobin 30.6 27.1 - 32.0 pg 04/11/2024 9:37 AM [facility] Mean Cell Hemoglobin Concentration 31.8 31.7 - 35.0 g/dL 04/11/2024 9:37 AM [facility] Platelet 185 145 - 357 x10(3)/mc L 04/11/2024 9:37 AM [facility] Mean Platelet Volume 9.6 7.6 - 12.9 fL 04/11/2024 9:37 AM [facility] RDW Standard Deviation 47.8(H) 37.0 - 46.0 fL 04/11/2024 9:37 AM [facility] RDW coefficient of variation 13.3 11.5 - 14.1 % 04/11/2024 9:37 AM [facility] NRBC% auto 0.0 % 04/11/2024 9:37 AM [facility] NRBC Absolute <0.01 <0.01 x10(3)/mc L 04/11/2024 9:37 AM [facility] Neutrophil % 60.7 % 04/11/2024 9:37 AM [facility] Neutrophil Absolute (ANC) - Automated 2.96 1.70 - 6.10 x10(3)/mc L 04/11/2024 9:37 AM [facility] Lymph % 25.8 % 04/11/2024 9:37 AM [facility] Lymph Absolute 1.26 0.90 - 3.20 x10(3)/mc L 04/11/2024 9:37 AM [facility] Monocyte % 9.0 % 04/11/2024 9:37 AM [facility] Monocyte Absolute 0.44 0.30 - 0.90 x10(3)/mc L 04/11/2024 9:37 AM [facility] Eos % 3.7 % 04/11/2024 9:37 AM [facility] Eos Absolute 0.18 0.00 - 0.40 x10(3)/mc L 04/11/2024 9:37 AM [facility] Basophil % 0.6 % 04/11/2024 9:37 AM [facility] Baso Absolute <0.04 0.00 - 0.10 x10(3)/mc L 04/11/2024 9:37 AM [facility] Immature Gran % 0.2 % 9:37 AM [facility] Immature Gran Absolute <0.04 0.00 - 0.04 x10(3)/mc L 04/11/2024 9:37 AM [facility] Blood VENOUS BLOOD SPECIMEN / Unknown Venipuncture / Unknown 04/11/2024 9:05 AM EST 04/11/2024 9:05 AM EST Sharmin Jean-Baptiste VISUAL MERCHANDISING DIRECTOR HEMATOLOGY ORDERA BLES [facility] [address] * Phosphorus (04/11/2024 9:05 AM EST) Phosphorus 2.8 2.5 - 4.5 mg/dL 04/11/2024 9:59 AM EST [facility] Blood VENOUS BLOOD SPECIMEN / Unknown Venipuncture / Unknown 04/11/2024 9:05 AM EST 04/11/2024 9:05 AM EST Sharmin L Estiven VISUAL MERCHANDISING DIRECTOR CHEMISTRY ORDERAB LES Performing Organization Address City/[facility]/ZIP Co de Phone Number [facility] [place] [address] * Ferritin (04/11/2024 9:05 AM EST) Pathologist [facility] Ferritin 37 6 - 175 ng/ml 04/11/2024 10:05 AM EST [facility] Blood VENOUS BLOOD SPECIMEN / Unknown Venipuncture / Unknown 04/11/2024 9:05 AM EST 04/11/2024 9:05 AM EST Sharmin L Estiven VISUAL MERCHANDISING DIRECTOR CHEMISTRY ORDERAB LES Performing Organization Address [facility] Co de Phone Number [facility] [place] [address] * Albumin Level (04/11/2024 9:05 AM EST) Pathologist [facility] Albumin 4.1 3.2 - 5.2 g/dL 04/11/2024 9:59 AM EST [facility] Blood VENOUS BLOOD SPECIMEN / Unknown Venipuncture / Unknown 04/11/2024 9:05 AM EST 04/11/2024 9:05 AM EST Sharmin L Estiven VISUAL MERCHANDISING DIRECTOR CHEMISTRY ORDERAB LES Performing Organization Address City/[facility] Co de Phone Number [facility] [place] [address] * (ABNORMAL) Basic Metabolic Panel Non-fasting (04/11/2024 9:05 AM EST) Pathologist [facility] Glucose 83 65 - 99 mg/dL 04/11/2024 9:59 AM [facility] Comment: Fasting Glucose Interpretive Criteria: Normal: 65-99 mg/dL ?? Prediabetes: 100-125 mg/dL ?? Consistent with Diabetes Mellitus: > or = 126 mg/dL ?? Classification and Diagnosis of Diabetes: Standards of Care in Diabetes - 2022. Diabetes Care 2022; 46:S19. Fasting is defined as no caloric intake for at least 8 hours. Blood Urea Nitrogen 26(H) 8 - 18 mg/dL 04/11/2024 9:59 AM [facility] Creatinine 0.99 0.70 - 1.20 mg/dL 04/11/2024 9:59 AM [facility] Sodium 144 135 - 145 mMol/L 04/11/2024 9:59 AM [facility] Potassium 4.7 3.5 - 5.0 mMol/L 04/11/2024 9:59 AM [facility] Chloride 110(H) 98 - 107 mMol/L 04/11/2024 9:59 AM [facility] Carbon Dioxide 20(L) 22 - 31 mMol/L 04/11/2024 9:59 AM [facility] Anion Gap 14 5 - 15 mMol/L 04/11/2024 9:59 AM [facility] Calcium 10.2 8.5 - 10.5 mg/dL 04/11/2024 9:59 AM [facility] Est Glomerular Filtration Rate - Female 70 mL/min/1. 73 m?? 04/11/2024 9:59 AM [facility] Comment: This patient's estimated GFR was calculated using the 2020 CKD-EPI equation. The estimated GFR can vary from the measured GFR by up to 30% in the absence of rapidly changing kidney function. Assessment of the estimated GFR is not appropriate when creatinine concentrations are rapidly changing. For clinical situations in which a more precise estimate of GFR is necessary, consider alternative methods of GFR estimation such as a 24-hour urine creatinine clearance. Assignment of CKD stage 1 - 5 for patients with an eGFR near the transition point between stages may be based on clinical assessment of muscle mass and symptoms in addition to eGFR. Link: eGFR Calculator [employer] Fasting Status Yes 04/11/2024 9:59 AM EST [facility] Blood VENOUS BLOOD SPECIMEN / Unknown Venipuncture / Unknown 04/11/2024 9:05 AM EST 04/11/2024 9:05 AM EST Sharmin Jean-Baptiste VISUAL MERCHANDISING DIRECTOR CHEMISTRY ORDERAB LES [facility] [place] [address] * CT Rad Onc Chest Interp Only (03/22/2024 1:33 PM EST) WORKSTATION ID [id number] RAD Anatomical Region Laterality Modality Chest Computed Tomogra phy Impressions 03/22/2024 3:[address] for radiation planning. Postsurgical changes in left breast and left axilla. Thank you for letting us participate in the care of this patient. ??If you are a health care provider and have any questions regarding this report, please contact the number below. ??For patients who have questions please contact the health director career services that requested your imaging first. ? Electronically signed by: Obdulio Gilliland MD, [facility] ??([phone]), at 03/22/2024 3:53 PM Narrative 03/22/2024 3:53 PM EST EXAMINATION: CT RAD ONC CHEST INTERP ONLY CLINICAL HISTORY: 49 y/o f w/breast ca, L, IDC, gr 1, ER+MS+, Her2-, DCIS, s/p lumpectomy & SNB followed by reexcision, pT1b pN0. ??Oncotype DX 12. C50.312, Malignant neoplasm of lower-inner quadrant of left female breast TECHNIQUE: Limited CT without the use of oral or IV contrast performed for the purposes of localization for radiation treatment. COMPARISON: MRI abdomen 06/25/2023 FINDINGS: Chest: Expiratory motion degraded study. The heart is normal in size. There are postsurgical changes in the left breast and left axilla. Abdomen: There is cholelithiasis. Hypodense lesions in the kidneys have been characterized previously as cysts. There are nonobstructing renal stones. Osseous structures: No aggressive bone lesions. Procedure Note Obdulio Gilliland MD - 03/22/2024 EXAMINATION: CT RAD ONC CHEST INTERP ONLY CLINICAL HISTORY: 49 y/o f w/breast ca, L, IDC, gr 1, ER+MS+, Her2-, DCIS,s/p lumpectomy & SNB followed by reexcision, pT1b pN0. Oncotype DX 12. C50.312, Malignant neoplasm of lower-inner quadrant of left femalebreast TECHNIQUE: Limited CT without the use of oral or IV contrast performed forthe purposes of localization for radiation treatment. COMPARISON: MRI abdomen 06/25/2023 FINDINGS: Chest: Expiratory motion degraded study. The heart is normal in size. There are postsurgical changes in the left breast and left axilla. Abdomen: There is cholelithiasis. Hypodense lesions in the kidneys have been characterized previously as cysts. There are nonobstructing renalstones. Osseous structures: No aggressive bone lesions. IMPRESSION Limited CT for radiation planning. Postsurgical changes in left breast andleft axilla. Thank you for letting us participate in the care of this patient. If youare a health care provider and have any questions regarding this report,please contact the number below. For patients who have questions please contactthe health director career services that requested your imaging first. Electronically signed by: Obdulio Gilliland MD, [facility]([phone]), at 03/22/2024 3:53 PM Ofe Fonseca MD IMG OUTSIDE INTERPRE TATION ORDERABLES * T3, free (03/15/2024 12:27 PM EST) Free T3 2.3 2.0 - 4.4 pg/mL 03/15/2024 1:18 PM EST [facility] Blood VENOUS BLOOD SPECIMEN / Unknown Venipuncture / Unknown 03/15/2024 12:27 PM EST 03/15/2024 12:27 PM EST Michelet Monge MD CHEMISTRY ORDERABLES Performing Organization Address City/[facility]/ZIP Co de Phone Number [facility] [place] [address] * (ABNORMAL) T3 Total (03/15/2024 12:27 PM EST) Pathologist [facility] T3 Total 73(L) 80 - 200 ng/dL 03/15/2024 1:18 PM EST [facility] Blood VENOUS BLOOD SPECIMEN / Unknown Venipuncture / Unknown 03/15/2024 12:27 PM EST 03/15/2024 12:27 PM EST Michelet Monge MD CHEMISTRY ORDERABLES Performing Organization Address [facility] Co de Phone Number [facility] [place] [address] * TSH (03/15/2024 12:27 PM EST) Pathologist [facility] Thyroid Stimulating Hormone 1.85 0.27 - 4.20 mcIU/mL 03/15/2024 1:18 PM EST [facility] Comment: Reference Interval (mcIU/mL): ?? Females: ? First Trimester: 0.23-3.88 ? Second Trimester: 0.22-3.90 ? Third Trimester: 0.44-4.66 Blood VENOUS BLOOD SPECIMEN / Unknown Venipuncture / Unknown 03/15/2024 12:27 PM EST 03/15/2024 12:27 PM EST Michelet Monge MD CHEMISTRY ORDERABLES Performing Organization Address City/[facility]/ZIP Co de Phone Number [facility] [place] [address] * T4, free (03/15/2024 12:27 PM EST) Free T4 1.49 0.93 - 1.70 ng/dL 03/15/2024 1:18 PM EST [facility] Comment: Reference Interval (ng/dL): ?? Females: ? First Trimester: 0.97-1.68 ? Second Trimester: 0.77-1.51 ? Third Trimester: 0.77-1.49 Blood VENOUS BLOOD SPECIMEN / Unknown Venipuncture / Unknown 03/15/2024 12:27 PM EST 03/15/2024 12:27 PM EST Michelet Monge MD CHEMISTRY ORDERABLES Performing Organization Address City/[facility]/ZIP Co de Phone Number [facility] [place] [address] * T4 Total (03/15/2024 12:27 PM EST) T4 Total 8.6 5.3 - 11.6 mcg/dL 03/15/2024 1:18 PM EST [facility] Comment: Reference Interval (mcg/dL): ?? Females: ? First Trimester: 6.3-13.5 ? Second Trimester: 7.1-14.3 ? Third Trimester: 6.9-14.1 Blood VENOUS BLOOD SPECIMEN / Unknown Venipuncture / Unknown 03/15/2024 12:27 PM EST 03/15/2024 12:27 PM EST Michelet Monge MD CHEMISTRY ORDERABLES Performing Organization Address City/[facility]/ZIP Co de Phone Number [facility] [place] [address] * XR Fluoro No Rad <1Hr - OR Use (02/29/2024 3:25 PM EDT) Narrative Dicom, Auditing User - 02/29/2024 3:58 PM EDT This exam is auto-finalizing. No interpretation was done. Hailey Dawson MD [facility] FLUORO ORDERABL ES * Mammo Specimen Left (02/29/2024 3:20 PM EDT) Only the most recent of3 resultswithin the time period is included. WORKSTATION ID [id number] 1 RAD Anatomical Region Laterality Modality Breast Left Mammography Narrative 02/29/2024 4:06 PM EDT EXAMINATION: MAMMO SPECIMEN LEFT INDICATION: Intraoperative specimen image for adequacy of lesion and/or clip removal TECHNIQUE: A radiograph was obtained of the excised Left breast specimen. COMPARISONS: Preoperative imaging FINDINGS: The Magseed, ??was present in the specimen. ??Margins were felt to be adequate by single plane radiography. Dr. Urrutia was informed in the operating room of the results by Gunner at 1525. Thank you for letting us participate in the care of this patient. ??If you are a health care provider and have any questions regarding this report, please contact the number below. ??For patients who have questions please contact the health director career services that requested your imaging first. ? [facility] [address] [place], [place] ??[id number] Hailey Dawson MD [facility] MAMMO ORDERABLE S * Surgical Pathology (02/29/2024 3:16 PM EDT) Only the most recent of3 resultswithin the time period is included. Case Report Surgical Pathology Report ? Case: [id number] ? Authorizing Provider: ??Hailey Dawson MD ? Collected: ? 02/29/2024 1516 ? [facility] ??Received: ?02/29/2024 1538 ? [facility] ? Pathologist: ? Andrez, Sil, MD ? Specimens: ?? A) - Breast, Left, Left breast partial mastectomy lesion 3 ? B) - Breast, Left, Margin, Lateral Margin of Left Breast Lesion 1 ? C) - Breast, Left, Margin, Posterior Margin of Left Breast Lesion 1 ? 03/15/2024 4:06 PM [facility] Final Diagnosis A. Breast, Left, Partial Mastectomy: - Benign breast tissue with fibrocystic changes including columnar cell change/hyperplasia, adenosis, usual ductal hyperplasia and apocrine metaplasia. - Negative for malignancy. B. Breast, Left lateral margin, Excision: - Breast tissue with marked procedure related changes. - Negative for malignancy. C. Breast, Left posterior margin, Excision: - Breast tissue with focal florid usual ductal hyperplasia, negative for malignancy. 03/15/2024 4:06 PM [facility] Additional Studies Task ID IHC/Special Stains Result A2-2 Calponin Positive A5-2 Calponin Positive A10-2 Calponin Positive A13-2 Calponin Positive A14-2 Calponin Positive A15-2 Calponin Positive B3-2 p63 Positive B3-3 Calponin Positive C2-2 CK5 Positive in area of interest C2-3 ER (Clone SP1) Patchy positive in area of interest 03/15/2024 4:06 PM [facility] Disclaimer(s) Formalin-fixed, paraffin-embedded tissue sections are studied using the polymer technique with appropriate positive and negative controls. These IHC studies provide the pathologist with adjunctive diagnostic information. Antibody specificity has been verified by testing antibodies on a series of in-house tissues with known immunohistochemical performance characteristics. The clinical interpretation of any antibody positive staining or its absence is evaluated within the context of clinical presentation, morphology, histopathological criteria and other diagnostic tests. 03/15/2024 4:06 PM [facility] Clinical Information A. Breast, Left, Left breast partial mastectomy lesion 3 Known malignancy - as specified in Clinical Information BREAST CANCER Left breast partial mastectomy lesion 3 03/15/2024 4:06 PM [facility] Gross Description A. Breast, Left, Left breast partial mastectomy lesion 3. A - Labeled/Fixative: C - Labeled/Fixative: Posterior margin of left breast lesion #1, fresh., fresh. Quantity/Size/Weight: Single, 5.0 x 4.5 x 1.7 cm ,17 g. SPECIMEN DESCRIPTION Resection Specimen: Intact, partial mastectomy. Lesion 3. Specimen radiograph: The Magseed, was present in the specimen. Margins were felt to be adequate by radiograph. Specimen Description: According to the established protocol the ink designations are red (medial), yellow (lateral), orange (superior), green (inferior), black (posterior) and blue (anterior). Tissue Sections: The specimen is serially sectioned perpendicular to the long axis from medial-red to lateral-yellow into slices, each averaging 0.7 cm in thickness. LESION Description: 1.2 x 0.9 x 0.7 cm, white, firm, mass, with ill-defined borders. Very ill-defined dense fibrous tissue with the Magseeds in Slice V Location: Slice V. Nearest Margin(s): 0.1 cm. Other Margin(s): 0.2 cm, anterior-blue. Other Margin(s): 0.2 cm, inferior-green. Other Margin(s): 1 cm, superior-orange. Other Margin(s): 0.1 cm, lateral-yellow. Parenchyma: Fibroadipose tissue Sections/Processing: Entirely submit sections in 17 cassettes as follows: A1-A2: Slice I, medial margin, perpendicular entirely submitted A3-A5: Slice II, dense fibrous tissue with anterior and posterior margin, entirely submitted A6-A9: Slice III, dense fibrous tissues anterior to posterior margin, entirely submitted A10-A12: Slice IV, dense fibrous tissue with anterior and posterior margin A13-A15: Slice V, dense fibrous tissue with anterior posterior and superior inferior margin, Megseeds is identified A16-A17: Slice , lateral margin, perpendicular entirely submitted Ischemic time: 38 minutes B. Breast, Left, Margin, Lateral Margin of Left Breast Lesion 1. B - Labeled/Fixative: Lateral margin of left breast lesion #1, fresh. Quantity/Size: Single, 3.0 x 2.0 x 1.1 cm. Tissue Description: Single fibroadipose tissue, and the margin is inked yellow; 2 clippers are identified within the tissue. Sections/Processing: Entirely submitted in 3 cassettes labeled B1-B3. C. Breast, Left, Margin, Posterior Margin of Left Breast Lesion 1. C - Labeled/Fixative: Posterior margin of left breast lesion #1, fresh. Quantity/Size: Two, 3.2 x 2.5 x 0.9 cm. Tissue Description: 2 fragmented fibroadipose tissue; the margin is inked black. Sections/Processing: Entirely submitted in 3 cassettes as follows: C1-C2: Fibroadipose tissue with black inked margin C3: Additional separate fragmented tissue 03/15/2024 4:06 PM [facility] Result Note Routine 03/15/2024 4:06 PM [facility] Tissue LEFT BREAST STRUCTURE / Unknown 02/29/2024 3:16 PM EDT 02/29/2024 3:38 PM EDT Comment:BREAST CANCER Left breast partial mastectomy lesion 3 Tissue specimen (specimen) SPECIMEN FROM LEFT BREAST / Unknown 02/29/2024 3:20 PM EDT 02/29/2024 3:52 PM EDT Comment:BREAST CANCER Lateral Margin of Left Breast Tissue specimen (specimen) SPECIMEN FROM LEFT BREAST / Unknown 02/29/2024 3:23 PM EDT 02/29/2024 3:52 PM EDT Comment:BREAST CANCER Posterior Margin of Left Breast Lesion 1 Hailey Dawson MD PATHOLOGY/CYTOLOGY ORDERABLES [facility] [place] [phone] * Scan Doc: Genetic Study (02/24/2024 12:00 AM EDT) Narrative 02/24/2024 12:00 AM EDT Ordered by an unspecified provider. Scanning Provider MEDIA MGR SCAN EXT O RDR/RSLT * Scan Doc: Surgical Pathology (02/15/2024 1:24 PM EDT) Historical Provider MEDIA MGR SCAN EX T ORDR/RSLT * Mammo Diagnostic Without Cad Left (02/01/2024 10:36 AM EDT) WORKSTATION ID [id number] 1 DH RAD Anatomical Region Laterality Modality Breast Left Mammography Narrative 02/01/2024 1:27 PM EDT EXAMINATION: MAMMO DIAGNOSTIC WITHOUT CAD LEFT CLINICAL INDICATION: Check marker placement TECHNIQUE: Cranio-caudal and lateral digital mammography of the right breast was performed to determine biopsy marker placement COMPARISON: Pre biopsy imaging. BREAST DENSITY: The breast tissue is heterogeneously dense, which may obscure small masses. FINDINGS: LEFT: The Magseed marker was in the expected location for lesion #1, #2 and #3. Please see separately dictated report from same day for lesion location descriptors. ASSESSMENT: Post procedure mammogram for marker placement. I have personally reviewed the image(s) and the resident's interpretation and agree with the findings, Martha Martino MD at 02/01/2024 1:27 PM Thank you for letting us participate in the care of this patient. ??If you are a health care provider and have any questions regarding this report, please contact the number below. ??For patients who have questions please contact the health director career services that requested your imaging first. ? [facility] [address] [place], [place] ??[address] Aleida Urban MD IMG MAMM O ORDERABLES * Mammo Magseed Placement Multiple Left (02/01/2024 10:17 AM EDT) WORKSTATION ID [id number] 1 RAD Anatomical Region Laterality Modality Breast Left Mammography Impressions 02/01/2024 1:27 PM EDT Status post successful Magseed localization of left breast lesions #1, #2, and #3. Images annotated on PACS for the operating surgeon. PROCEDURAL ATTESTATION: Fellow: Fernandez Welch M.D. Attending: I was present with the resident for the guevara component(s) of the procedure and otherwise remained immediately available for the duration of the procedure. I attest to having personally viewed the images/test and approve the above interpretation. I have personally reviewed the image(s) and the resident's interpretation and agree with the findings, Martha Martino MD at 02/01/2024 1:27 PM Thank you for letting us participate in the care of this patient. ??If you are a health care provider and have any questions regarding this report, please contact the number below. ??For patients who have questions please contact the health director career services that requested your imaging first. ? [facility] [address] [place], [place] ??[id number] Narrative 02/01/2024 1:27 PM EDT EXAMINATION: MAMMO MAGSEED PLACEMENT MULTIPLE LEFT CLINICAL HISTORY: breast cancer- please place seeds in lesions 1, 2,3 Left Breast Lesion # 1: 1.2 cm mass, 6:00 radian, 3 cm from the nipple. Left Breast Lesion # 2: 0.4 cm mass, 6:00 radian, 4 cm from the nipple Left Breast Lesion # 3: 0.7 cm mass, 12:00 radian, 2 cm the nipple TECHNIQUE:Informed consent was confirmed and a timeout procedure was performed per protocol. Using sterile technique and local anesthetic (less than 5 cc's of 1% lidocaine) a needle localization of lesion #1, #2, and #3 in the Left was performed using ultrasound guidance. The needle tip was placed at the lesion. After confirming satisfactory positioning of the needle the Magseed was deployed. The same process was repeated for all 3 lesions. CC and ML views of the breast were performed to mammographically verify seed placement for the surgeon. There were no complications. Images were annotated in PACS for the operating surgeon. Hailey Dawson MD IMG MAMMO ORDERABLE S * Mammo US Biopsy Multiple Left (02/01/2024 10:17 AM EDT) WORKSTATION ID [id number] 3 RAD Anatomical Region Laterality Modality Breast Left Mammography Impressions 02/07/2024 1:26 PM EDT Probably concordant result RECOMMENDATION: Surgical consultation for known left breast cancer and conveyed to the operating surgeon via Joppel message. These results were discussed with the patient by Glendy Tovar RN 02/04/2024 9:56 AM REVIEW PATH CONFERENCE?: No Preliminary report signed by: Fernandez Welch MD at 02/05/2024 7:50 AM I have personally reviewed the image(s) and the resident's interpretation and agree with the findings, Martha Martino MD at 02/07/2024 1:26 PM Thank you for letting us participate in the care of this patient. ??If you are a health care provider and have any questions regarding this report, please contact the number below. ??For patients who have questions please contact the health director career services that requested your imaging first. ? [facility] [address] [place], [place] ??[phone] Narrative 02/07/2024 1:26 PM EDT EXAMINATION: MAMMO US BIOPSY MULTIPLE LEFT CLINICAL HISTORY: abnormal finding on breast imaging Lesion #2 Left Breast Lesion # 2: 0.6 cm mass, 6:00 radian, 4 cm from the nipple Lesion #3 Left Breast Lesion # 3: 0.7 cm mass, 12:00 radian, 2 cm from the nipple PROCEDURAL DETAILS: Informed consent was obtained. Sterile technique was deployed. Approximately 10 cc of 1% lidocaine used for local anesthesia. A small skin incision was made and a biopsy was performed under ultrasound guidance. 4 core biopsy specimens were obtained using a Achieve 14g device. A Magseed marker clip was placed. The same process was repeated for lesion #3. Cranio-caudal and lateral digital mammography performed to determine Magseed placement. All three Magseeds were shown to be at the expected location. Images were annotated on PACS for the operating surgeon. COMPLICATIONS: None. ?? PROCEDURAL ATTESTATION: Fellow: Fernandez Welch M.D. Attending: I was present with the resident for the guevara component(s) of the procedure and otherwise remained immediately available for the duration of the procedure. I attest to having personally viewed the images/test and approve the above interpretation. PATHOLOGIC DIAGNOSIS: Lesion #2: Benign breast tissue with adenosis, columnar cell change, pseudoangiomatous stromal hyperplasia (PASH), and stromal fibrosis. Lesion #3: Benign breast tissue with columnar cell change, pseudoangiomatous stromal hyperplasia (PASH), stromal fibrosis, and cysts. Aleida Urban MD IMG MAMM O ORDERABLES * Valproic Acid Level, Total (01/28/2024 8:10 AM EDT) Valproic Acid 82 <=125 mg/L 01/28/2024 9:40 AM EDT [facility] Comment: Therapeutic Range: ??Anticonvulsant Therapy: ??50-100 mg/L ?? Manic Episodes Associated with Bipolar Disorder: ??50-125 mg/L Blood VENOUS BLOOD SPECIMEN / Unknown Venipuncture / Unknown 01/28/2024 8:10 AM EDT 01/28/2024 8:12 AM EDT Michelet Monge MD CHEMISTRY ORDERABLES [facility] [place] [address] * US Breast Limited Left (01/25/2024 1:45 PM EDT) WORKSTATION ID [id number] 1 RAD Anatomical Region Laterality Modality Breast Left Mammography Impressions 01/25/2024 2:52 PM EDT Sonographic correlates for breast MRI lesions #2 and #3 identified above. RECOMMENDATION: Recommend ultrasound-guided biopsy of lesion #2 and lesion #3 FINAL ASSESSMENT: BI-RADS Category 4b: Suspicious Finding - Biopsy Should Be Considered. ??Moderate suspicion of malignancy (more than 10% but no more than 50%) Thank you for letting us participate in the care of this patient. ??If you are a health care provider and have any questions regarding this report, please contact the number below. ??For patients who have questions please contact the health director career services that requested your imaging first. ? Narrative 01/25/2024 2:52 PM EDT EXAMINATION: US ??BREAST LIMITED LEFT CLINICAL HISTORY: abnormal finding Call back from staging breast MRI 2 additional lesions in the left breast COMPARISONS: Prior mammograms, ultrasound, and breast MRI AREA SCANNED: Superior and inferior left breast, 12:00 and 6:00 FINDINGS: Breast MRI lesion #2 corresponds to an irregular mass with associated vascularity at 6:00, 4 cm from the nipple measuring 0.6 x 0.4 cm in greatest dimension. Recommend ultrasound-guided biopsy. Breast MRI lesion #3 corresponds to an irregular mass at 12:00, 2 cm radial from the nipple measuring 0.7 x 0.5 cm in greatest dimension. Associated vascularity is identified. Recommend ultrasound-guided biopsy. Martha Martino MD IMG MAMMO ORDERABLES * MAMMO SCREENING CAD BILATERAL (CH) (01/14/2024 8:39 AM EDT) PT CLASS O RAD ADMITDTTM [id number] RAD PT RAD INFO [id number]^Steward^ Haylie RAD EXAM DESC MADDSCCH^MG Mammo Digital Screening Bilateral.^RIS RAD WORKSTATION ID [id number] RAD Anatomical Region Laterality Modality Other 01/14/2024 8:39 AM EDT Impressions 01/14/2024 11:24 AM EDT BI-RADS Category 0: Incomplete - Need Additional Imaging Evaluation RECOMMENDATION: Recall for additional imaging and/or comparison with prior examination(s) * ??Regular screening mammograms starting at age 40 reduce the risk of from breast cancer. * ??Individuals should discuss the risks and benefits with their provider to determine their preferred breast cancer screening schedule, and at what age screening should stop. * ??Individuals should report any breast changes to a health care provider right away. * ??Some Individuals, because of their family history, a genetic tendency, or other factors, should consider being screened with annual breast MRI as well as with mammograms. * ??Screening mammography may not detect 10-15% of?breast cancers. Thank you for letting us participate in the care of this patient. ??If you are a health care provider and have any questions regarding this report, please contact the number below. ??For patients who have questions please contact the health director career services that requested your imaging first. ? [address], [place] ??[address] Narrative 01/14/2024 11:24 AM EDT EXAMINATION: MG Mammo Digital Screening Bilateral. REASON FOR EXAM: Screening Family history of breast cancer: None Reproductive history: Nulliparous No personal history of breast cancer. COMPARISON: Previous mammograms were reviewed. TECHNIQUE: ??CC and MLO views were obtained of BOTH breasts. 2D and 3D tomosynthesis images were obtained. Computer aided detection was used FINDINGS: A 13 mm focal asymmetry with architectural distortion at approximately 7 o'clock 3 cm from the nipple in the left breast. BREAST DENSITY: The breasts are heterogeneously dense, which may obscure small masses. Procedure Note Mario Lee MD - 01/14/2024 EXAMINATION: MG Mammo Digital Screening Bilateral. REASON FOR EXAM: Screening Family history of breast cancer: None Reproductive history: Nulliparous No personal history of breast cancer. COMPARISON: Previous mammograms were reviewed. TECHNIQUE: CC and MLO views were obtained of BOTH breasts. 2D and 3D tomosynthesis images were obtained. Computer aided detection was used FINDINGS: A 13 mm focal asymmetry with architectural distortion atapproximately 7 o'clock 3 cm from the nipple in the left breast. BREAST DENSITY: The breasts are heterogeneously dense, which may obscuresmall masses. IMPRESSION BI-RADS Category 0: Incomplete - Need Additional Imaging Evaluation RECOMMENDATION: Recall for additional imaging and/or comparison with priorexamination(s) * Regular screening mammograms starting at age 40 reduce the risk ofdeath from breast cancer. * Individuals should discuss the risks and benefits with their providerto determine their preferred breast cancer screening schedule, and at whatage screening should stop. * Individuals should report any breast changes to a health care providerright away. * Some Individuals, because of their family history, a genetic tendency,or other factors, should consider being screened with annual breast MRI aswell as with mammograms. * Screening mammography may not detect 10-15% of?breast cancers. Thank you for letting us participate in the care of this patient. If youare a health care provider and have any questions regarding this report,please contact the number below. For patients who have questions please contactthe health director career services that requested your imaging first. [address] [address] Haylie Steward MD PACS IMAGES * COLONOSCOPY (06/11/2023 3:10 PM EST) [facility] Signature COLONOSCOPY [facility] Procedure Date: 06/11/2023 3:10 PM ? Patient Name: Nataliya Morifn ? N: [id number] ? Date of : 1975 ? Age: 48 ? Order #: [id number] ? Instrument Name: [id number] ? Procedure: ? Colonoscopy Indications: ? Chronic diarrhea, Iron deficiency ? anemia, prior normal colo 2014 ? (including non-targeted colon ? biopsies) Providers: ? Jack Page MD, Iggy Mason ? Juancarlos, Ольга Gurrola, Marce ? Rolly Bermeo MD: ?Haylie Steward MD, Lyssa Tolliver ? [place] Medicines: ? Monitored Anesthesia Care Complications: ? No immediate complications. Procedure: ? Pre-Anesthesia Assessment: ? - Prior to the procedure, a History ? and Physical was performed, and ? patient medications, allergies and ? sensitivities were reviewed. The ? patient's tolerance of previous ? anesthesia was reviewed. ? - The risks and benefits of the ? procedure and the sedation options ? and risks were discussed with the ? patient. All questions were ? answered and informed consent was ? obtained. ? - Patient identification and ? proposed procedure were verified ? prior to the procedure by the ? physician, the nurse, the ? manufacturers agent and the light technician. The ? procedure was verified in the ? pre-procedure area in the endoscopy ? suite. ? - Pre-procedure physical ? examination revealed no ? contraindications to sedation. ? - ASA Grade Assessment: III - A ? patient with severe systemic ? disease. ? - After reviewing the risks and ? benefits, the patient was deemed in ? satisfactory condition to undergo ? the procedure. ? - Monitored anesthesia care under ? the supervision of a DIRECTOR PHARMACY SERVICES was ? determined to be medically ? necessary for this procedure based ? on severe comorbidity (greater than ? ASA Grade II) and patient's history ? of problems with anesthesia. ? The procedure, indications, ? benefits, risks and alternatives ? were explained to the patient. ? Specifically discussed were ? potential complications including, ? but not limited to, bleeding, ? perforation, infection, missing a ? cancer, and adverse medication ? reactions. The patient was placed ? in the left lateral decubitus ? position, and a digital rectal exam ? was performed. The Colonoscope was ? inserted in the anus and under ? direct visualization, advanced to ? the terminal ileum. Careful ? inspection was made as the ? colonoscope was withdrawn. The ? colonoscopy was performed without ? difficulty. The patient tolerated ? the procedure well. The quality of ? the bowel preparation was evaluated ? using the BBPS ([place] Bowel ? Preparation Scale) with scores of: ? Right Colon = 3 (entire mucosa seen ? well with no residual staining, ? small fragments of stool or opaque ? liquid), Transverse Colon = 3 ? (entire mucosa seen well with no ? residual staining, small fragments ? of stool or opaque liquid) and Left ? Colon = 3 (entire mucosa seen well ? with no residual staining, small ? fragments of stool or opaque ? liquid). The total BBPS score ? equals 9. The quality of the bowel ? preparation was excellent. The ? terminal ileum, ileocecal valve, ? appendiceal orifice, and rectum ? were photographed. Scope withdrawal ? time was 7 minutes. ? Findings: ? The terminal ileum appeared normal. ? The colonic mucosa appeared normal throughout. ? Biopsies for histology were taken with a cold forceps ? from the ascending colon, transverse colon, ? descending colon and sigmoid colon for evaluation of ? microscopic colitis. No polyps. ? Moderate Sedation: ? See anesthesia notes. Impression: ?- No obvious lower GI sources of ? chronic blood loss. ? - No overt ileitis or colitis to ? explain chronic diarrhea. ? - Non-targeted colon biopsies taken ? to rule out microscopic colitis. ? - Suspect iron deficiency anemia ? was in setting of abnormal uterine ? bleeding rather than GI losses. ? Consider evaluation for small bowel ? sources of blood loss if iron ? deficiency recurs in absence of ? uterine bleeding. Recommendation: ?- Patient has a contact number ? available for emergencies. The ? signs and symptoms of potential ? delayed complications were ? discussed with the patient. Return ? to normal activities tomorrow. ? Written discharge instructions were ? provided to the patient. ? - Await pathology results. ? - OK to use loperamide (Imodium) as ? needed (up to 16 mg total daily ? dose) for constipation. ? - Follow-up with Ms. Euceda in GI ? clinic to discuss further testing ? and next-line medications if ? diarrhea persists despite Imodium. ? - Repeat average-risk colorectal ? cancer screening in 10 years. ? Attending Participation: ? I was present and participated during the entire ? procedure, including non-guevara portions. ? Jack Page MD 06/11/2023 4:11:27 PM This report has been signed electronically. Number of Addenda: 0 Note Initiated On: 06/11/2023 3:10 PM PROVATION 06/11/2023 3:10 PM EST Haylie Steward MD GENERAL SURGICAL ORD ERABLES PROVATION * Lipid Panel (Reflex Direct LDL) (06/25/2022 9:49 AM EST) Cholesterol, Total 202 mg/dL [facility] Comment: Lower Risk: <200 mg/dL Average Risk: 200-239 mg/dL Higher Risk: >qa=429 mg/dL Triglyceride 97 mg/dL [facility] Comment: Average Risk/Lower Risk: <150 mg/dL Borderline High Risk: 150-199 mg/dL High Risk: 200-499 mg/dL Very High Risk: >ki=606 mg/dL HDL Cholesterol 83 mg/dL [facility] Comment: Males: ?? Higher Risk: <40 mg/dL Females: ?? Higher Risk: <50 mg/dL LDL Cholesterol 100 mg/dL [facility] Comment: Lowest Risk: <100 mg/dL Lower Risk: 100-129 mg/dL Borderline High Risk: 130-159 mg/dL High Risk: 160-189 mg/dL Very High Risk: >za=196 mg/dL Cholesterol/HDL Ratio 2.4 ratio [facility] Lipid Interpretation See Note [facility] Comment: Lipid management should be guided by a patient? s ASCVD risk, goals and preferences. ACC/AHA Guidelines recommend high intensity statin if clinical ASCVD or LDL greater than or equal to 190 mg/dL. http://[employer].com/KAR-TSO-Owomzglfa Adults aged 40-75 with LDL 70-189 mg/dL should have their 10 year ASCVD risk estimated with the ACC/AHA ASCVD risk pedigree researcher http://tools.acc.org/EEGZH-Gknc-Wdfffveev/ Statin should be discussed if risk greater than or equal to 7.5% in non-diabetics. With diabetes, moderate intensity statin is recommended if risk less than 7.5%, high intensity if risk greater than or equal to 7.5%. Annual lipid monitoring on statins is not necessary. Evaluate secondary causes of Triglycerides greater than 500 mg/dL or LDL greater than 190 mg/dL: See table 6 of ACC/AHA Guideline. Lifestyle modification is a critical component of ASCVD risk reduction. Blood 06/25/2022 9:49 AM EST 06/25/2022 9:55 AM EST Narrative Resulting Agency Comment Spec In Lab Michelet Monge MD CHEMISTRY ORDERABLES [facility] [place] [address] from Last 3 Months or Most Recently Relevant to Health Maintenance Advance Directives * Attempt Cardiopulmonary Resuscitation - Inpatient (Latest Code Status on File) Date Activated Date Inactivated Comments 09/06/2022 11:08 PM 09/09/2022 2:21 PM Question Answer Comments Code Status decision made by: Patient Care Teams Hospital Coordinator Relationship Specialty Start Date End Date Haylie Steward [place] [address] [place] [address] PCP - General General Internal Medicine 08/04/22
--- OUTSIDE RECORDS SUMMARY | 2024-04-22 00:18 | XMS_ITS | Encounter Summary ---
Author Organization [facility] [place] [address] Care Team Providers Care Timber Trimmer Name Role Phone Haylie Steward MD Primary Care Provider + [phone] Encounter Details Date Type Department Care Team (Latest Contact Info) Description 04/15/2024 Travel Social History Tobacco Use Types Packs/Day [...] from your doctor or pharmacy? Rarely 02/15/2024 [facility] Utilities Answer Date Recorded In the [...] were you homeless or living in a prison (including now)? No 02/15/2024 [facility] IPV Inpatient [...] EST Scheduled View Only Radiation Oncology at [address] [phone] 04/25/2024 8:30 AM EST Scheduled View Only Radiation Oncology at [address] [phone] 04/26/2024 3:00 PM EST Scheduled View Only Radiation Oncology at [address] [phone] 04/26/2024 3:30 PM EST Office Visit Radiation Oncology at [address] [phone] Ofe Fonseca MD [facility] [place] [address] 04/28/2024 2:45 PM EST Scheduled View Only Radiation Oncology at [address] [phone] 04/29/2024 3:00 PM EST Scheduled View Only Radiation Oncology at [address] [phone] 05/02/2024 3:45 PM EST Scheduled View Only Radiation Oncology at [address] [phone] 05/03/2024 1:45 PM EST Scheduled View Only Radiation Oncology at [address] [phone] 05/03/2024 2:15 PM EST Office Visit Radiation Oncology at [address] [phone] Ofe Fonseca MD [facility] [place] [address] 05/05/2024 8:15 AM EST Scheduled View Only Radiation Oncology at [address] [phone] 05/06/2024 12:30 PM EST Scheduled View Only Radiation Oncology at [address] [address] 05/09/2024 3:00 PM EST Scheduled View Only Radiation Oncology at [address] [phone] 05/10/2024 2:30 PM EST Scheduled View Only Radiation Oncology at [address] [phone] 05/10/2024 3:15 PM EST Office Visit Radiation Oncology at [address] [phone] Ofe Fonseca MD [facility] [place] [address] 05/11/2024 2:45 PM EST Scheduled View Only Radiation Oncology at [address] [phone] 06/03/2024 3:30 PM EST Appointment Ultrasound at [place] [phone] Mira Hutchison [facility] [place] [address] 06/23/2024 4:00 PM EST Appointment Mammography/DXA at [place] [phone] Miryam Feliciano MD [facility] [place] [address] 07/12/2024 8:00 AM EDT Laboratory Appointment Lab [address] [place], [place] [phone] 07/12/2024 9:30 AM EDT Office Visit Nephrology Hypertension at [place] [phone] Sharmin Jean-Baptiste, [facility] [place] [address] 07/13/2024 10:30 AM EDT Laboratory Appointment Lab at [facility] Hematology Oncology [address] [place] [phone] 07/13/2024 11:30 AM EDT Office Visit Hematology [place] [phone] Salena Alvares, [facility] [place] [place] [address] 07/13/2024 12:45 PM EDT Appointment Hematology and Oncology at [place] [phone] documented as of this encounter Visit Diagnoses Not on filedocumented in this encounter Care Teams Timber Trimmer Relationship Specialty Start Date End Date Haylie Steward MD [place] [address] PCP - General General Internal Medicine 08/04/22 documented as of this encounter
--- OUTSIDE RECORDS SUMMARY | 2024-04-22 00:18 | XMS_ITS | Encounter Summary ---
Author Organization [facility] Address [facility] [place] [address] Care Team Providers Care Key Account Executive Name Role Phone Haylie Steward MD Primary Care Provider + [phone] Reason for Visit * Reason Comments On Treatment Visit Encounter Details Date Type Department Care Team (Late st Contact Info) Description 04/19/2024 11:00 AM EST Office Visit Radiation Oncology at [address] [phone] Ofe Fonseca MD [facility] [place] [address] Malignant neoplasm of lower-inner quadrant of left breast in female, estrogen receptor positive Social History Tobacco Use Types Packs/Day Years [...] from your doctor or pharmacy? Rarely 02/15/2024 [facility] Utilities Answer Date Recorded In the past 12 months has th e [employer], gas, oil, or water company threatened to [...] money to buy more. Never true 02/15/20 Within the past 12 months, t he [...] or rent on time? Patient declined 02/15/20 In the past 12 months, how m any times have you moved where you were living? 0 02/15/2024 At any time in the past [address] [facility], were you homeless or living in a longterm (including now)? No 02/15/2024 DH IPV Inpatient [...] PM EDT documented as of this encounter Last Filed Vital Signs Vital Sign Reading [...] 12.8 oz) 024 11:12 AM EST Height - - Body Mass Index 26.48 04/12/2024 12:02 PM EST documented in this encounter Progress Notes * Ofe Fonseca MD - 04/19/2024 11:00 AM EST Images from the original note were not included. DIAGNOSIS: Breast ca, L, IDC, gr 1, ER+OK+, Her2-, DCIS, s/p lumpectomy & SNB followed by reexcision, pT1b pN0. Oncotype DX 12. CURRENT TREATMENT DOSE: 15.96 Gy L breast ANTICIPATED TOTAL DOSE: 42.56 Gy L breast, 52.56 Gy lumpectomy bed Current # of xrt received: 6 L breast Anticipated total # of xrt txs: 16 L breast, 20 lumpectomy bed Evaluation of port verification films: Approved. For details, see electronic film record in [employer]. Changes in Medical Condition: Headache yesterday, took 1000 mg tylenol which lessened it; mild headache today, less than yesterday; h/o headaches in the past which were more frequent & more painful than recent headaches. Tired. Skin w/in irrad'd area ok; asks if residual bruise on upper L breast is expected. Urologist has ordered US of kidneys, to be done @ [facility] 04/22/24. PCP not concerned about cholelithiasis seen on Ctsim. Pain?: See above. Your Medications Accurate as of April 19, 2024 11:34 AM. If you have any questions, ask your nurse or doctor. Continued medications, unchanged Dose Details acetaminophen 500 mg tablet Commonly known as: Tylenol Take 1,000 mg by mouth every 6 hours as needed for Pain. 1,000 mg Refills: 0 Bifidobacterium infantis 4 mg Capsule Commonly known as: ALIGN Take by mouth. Refills: 0 buPROPion XL 150 mg XL 24 hr tablet Commonly known as: Wellbutrin XL Take 1 tablet by mouth every morning. 150 mg Quantity: 90 tablet Refills: 0 calciTRIoL 0.25 mcg capsule Commonly known as: Rocaltrol Take 1 capsule by mouth daily. 0.25 mcg Quantity: 90 tablet Refills: 3 clonazePAM 0.5 mg disintegrating tablet Commonly known as: KlonoPIN Take 0.5 mg by mouth daily as needed. 0.5 mg Refills: 0 divalproex ER 250 mg ER 24 hr tablet Commonly known as: Depakote ER 2 tabs AM and 3 tabs PM. Quantity: 150 tablet Refills: 2 FIBER ORAL Take by mouth 3 times daily. Refills: 0 letrozole 2.5 mg tablet Commonly known as: Femara Take 1 tablet by mouth daily. Please call clinic before starting. 2.5 mg Quantity: 90 tablet Refills: 3 loperamide 2 mg capsule Commonly known as: Imodium A-D Take 2 mg by mouth 4 times daily as needed for Diarrhea. Takes one tablet twice daily 2 mg Refills: 0 multivitamin with minerals Tablet Commonly known as: One-A-Day Take 1 tablet by mouth. 1 tablet Refills: 0 pilocarpine 5 mg tablet Commonly known as: Salagen Take 1 tablet by mouth 3 times daily. 5 mg Quantity: 90 tablet Refills: 2 REMEDY PHYTOPLEX MOISTURIZER TOP Apply topically. Phytoplex Remedy Moisturizer: Apply to area of radiation twice a day but no less than 2 hours before a treatment. Refills: 0 Vraylar 1.5 mg capsule Generic drug: cariprazine Refills: 0 zolpidem 5 mg tablet Commonly known as: Ambien Take 1 tablet by mouth nightly as needed for Sleep. 5 mg Quantity: 10 tablet Refills: 1 Physical Exam: BP 144/74 (Patient Position: Sitting) Pulse 69 Temp 37.1 ??C (98.8 ??F) (Temporal) Resp 16 Wt 65.7 kg (144 lb 12.8 oz) SpO2 100% BMI 26.48 kg/m?? A&Ox3, NAD. 10 x 5 cm light green ecchymosis L breast @ 12:00. L breast w/o erythema. No neuro deficit. Amb stable. Imagin03/22/24 Dx'ic Rad Interp Ctsim: There is cholelithiasis. Hypodense lesions in the kidneyshave been characterized previously as cysts. There are nonobstructing renal stones. Performance Status: KPS 100% Response to xrt: As expected. Irradiation Related Symptoms: None. Reassurement given that bruising after lumpectomy can take a while to clear; will likely be resolved by about a month after xrt completion. Treatment for Symptom Control: Remedy cream. Pain Management: Not needed. Recommendation on Continuing Course of xrt: Continue. Watch headaches; if worsen consider MRI brain. documented in this encounter Plan of Treatment Upcoming Encounters Date Type Department Care Team (Latest Contact Info) Description 04/22/2024 9:45 AM EST Scheduled View Only Radiation Oncology at [address] [phone] 04/25/2024 8:30 AM EST Scheduled View Only Radiation Oncology at [address] [phone] 04/26/2024 3:00 PM EST Scheduled View Only Radiation Oncology at [address] [phone] 04/26/2024 3:30 PM EST Office Visit Radiation Oncology at [address] [phone] Ofe Fonseca MD [facility] [place] [address] 04/28/2024 2:45 PM EST Scheduled View Only Radiation Oncology at [address] [phone] 04/29/2024 3:00 PM EST Scheduled View Only Radiation Oncology at [address] [phone] 05/02/2024 3:45 PM EST Scheduled View Only Radiation Oncology at [address] [phone] 05/03/2024 1:45 PM EST Scheduled View Only Radiation Oncology at [address] [phone] 05/03/2024 2:15 PM EST Office Visit Radiation Oncology at [address] [phone] Ofe Fonseca MD [facility] [place] [place] [address] 05/05/2024 8:15 AM EST Scheduled View Only Radiation Oncology at [address] [phone] 05/06/2024 12:30 PM EST Scheduled View Only Radiation Oncology at [address] [phone] 05/09/2024 3:00 PM EST Scheduled View Only Radiation Oncology at [address] [phone] 05/10/2024 2:30 PM EST Scheduled View Only Radiation Oncology at [address] [phone] 05/10/2024 3:15 PM EST Office Visit Radiation Oncology at [address] [phone] Ofe Fonseca MD [facility] [place] [address] 05/11/2024 2:45 PM EST Scheduled View Only Radiation Oncology at [address] [phone] 06/03/2024 3:30 PM EST Appointment Ultrasound at [place] [phone] Mira Hutchison APRN [facility] [place] [address] 06/23/2024 4:00 PM EST Appointment Mammography/[place] [phone] Miryam Feliciano MD [facility] [place] [address] 07/12/2024 8:00 AM EDT Laboratory Appointment Lab [address] [place] [phone] 07/12/2024 9:30 AM EDT Office Visit Neph[place] [phone] Sharmin Jean-Baptiste, [facility] [place] [address] 07/13/2024 10:30 AM EDT Laboratory Appointment Lab at [facility] Hematology Oncology [address] [place], [place] [phone] 07/13/2024 11:30 AM EDT Office Visit Hematology [place] [phone] Salena Alvares, [facility] [place] [address] 07/13/2024 12:45 PM EDT Appointment Hematology [place] [phone] documented as of this encounter Visit Diagnoses Diagnosis Malignant neoplasm of lower-inner quadrant of left breast in female, estrogen receptor positive documented in this encounter Care Teams Key Account Executive Relationship Specialty Start Date [place] [address] PCP - General General Internal Medicine 08/04/22 documented as of this encounter
--- OUTSIDE RECORDS SUMMARY | 2024-04-22 00:19 | XMS_ITS | Encounter Summary ---
Author Organization [facility] [place] [address] Care Team Providers Care Special Warfare Combatant Crewman Name Role Phone Haylie Steward MD Primary Care Provider [phone] Encounter Details Date Type Department Care Team (Latest Contact Info) Description 04/11/2024 8:30 AM EST Laboratory Appointment Lab [address] [place] [phone] CKD (chronic kidney disease) stage 2, GFR 60-89 ml/min; Vitamin D deficiency Social History Tobacco Use Types Packs/Day Years [...] from your doctor or pharmacy? Rarely 02/15/2024 [employer] Utilities Answer Date Recorded In the past 12 months has th e [employer], gas, oil, or water [employer] threatened to shut off services in your [...] any time in the past 12 m [facility], were you homeless or living in a fpc (including now)? No 02/15/2024 DH IPV Inpatient [...] EST Scheduled View Only Radiation Oncology at [address] [phone] 04/25/2024 8:30 AM EST Scheduled View Only Radiation Oncology at [address] [phone] 04/26/2024 3:00 PM EST Scheduled View Only Radiation Oncology at [address] [phone] 04/26/2024 3:30 PM EST Office Visit Radiation Oncology at [address] [phone] Ofe Fonseca MD [facility] [place] [address] 04/28/2024 2:45 PM EST Scheduled View Only Radiation Oncology at [address] [phone] 04/29/2024 3:00 PM EST Scheduled View Only Radiation Oncology at [address] [phone] 05/02/2024 3:45 PM EST Scheduled View Only Radiation Oncology at [address] [phone] 05/03/2024 1:45 PM EST Scheduled View Only Radiation Oncology at [address] [phone] 05/03/2024 2:15 PM EST Office Visit Radiation Oncology at [address] [phone] Ofe Fonseca MD [facility] [place] [address] 05/05/2024 8:15 AM EST Scheduled View Only Radiation Oncology at [address] [phone] 05/06/2024 12:30 PM EST Scheduled View Only Radiation Oncology at [address] [phone] 05/09/2024 3:00 PM EST Scheduled View Only Radiation Oncology at [address] [phone] 05/10/2024 2:30 PM EST Scheduled View Only Radiation Oncology at [address] [phone] 05/10/2024 3:15 PM EST Office Visit Radiation Oncology at [address] [phone] Ofe Fonseca MD [facility] [place] [address] 05/11/2024 2:45 PM EST Scheduled View Only Radiation Oncology at [address] [phone] 06/03/2024 3:30 PM EST Appointment Ultrasound at [place] [phone] Mira Hutchison SENIOR MAINTENANCE MACHINIST [facility] [place] [address] 06/23/2024 4:00 PM EST Appointment Mammography/DXA at [place] [phone] Miryam Feliciano MD [facility] [place] [address] 07/12/2024 8:00 AM EDT Laboratory Appointment Lab [address] [place], [place] [phone] 07/12/2024 9:30 AM EDT Office Visit Nephrology Hypertension at [place] [phone] Sharmin Jean-Baptiste [facility] [place] [address] 07/13/2024 10:30 AM EDT Laboratory Appointment Lab at [facility] [place] Oncology [address] [place] [phone] 07/13/2024 11:30 AM EDT Office Visit Hematology and Oncology at [place] [phone] Salena Alvares SENIOR MAINTENANCE MACHINIST [facility] [address] 07/13/2024 12:45 PM EDT Appointment Hematology [place] [phone] documented as of this encounter Procedures Procedure Name Priority Date/Time Associated Diagnosis Comments _URINALYSIS WITH MICRSOCOPIC Routine 04/11/2024 9:07 AM EST CKD (chronic kidney disease) stage 2, GFR 60-89 ml/min URINALYSIS MICROSCOPIC EXAM Routine 04/11/2024 9:07 AM [...] 2, GFR 60-89 ml/min Vitamin D deficiency CBC (WITH DIFF) Routine 04/11/2024 9:05 AM [...] kidney disease) stage 2, GFR 60-89 ml/min documented in this encounter Results * Urinalysis Microscopic Exam (04/11/2024 9:07 AM EST) Bacteria, Urine None None /HPF 10:15 AM [facility] RBC, Urine 0 0 - 4 /HPF 04/11/2024 10:15 AM [facility] WBC, Urine 0 0 - 5 /HPF 04/11/2024 10:15 AM [facility] Squamous Epithelial Cells, Urine 0 0 - 5 /HPF 04/11/2024 10:15 AM [facility] Hyaline Casts, Urine 0 0 - 2 /LPF 04/11/2024 10:15 AM [facility] Urine Non Blood Collection / Unknown 04/11/2024 9:07 AM EST 04/11/2024 9:07 AM EST Sharmin Jean-Baptiste APRN URINE ORDERABLES [facility] [place] [address] * Urinalysis Dipstick (04/11/2024 9:07 AM EST) Glucose, Urine Dipstick Negative Negative 04/11/2024 10:15 AM EST [facility] Protein, Urine Dipstick Negative Negative 04/11/2024 10:15 AM [facility] Bilirubin, Urine Dipstick Negative Negative 04/11/2024 10:15 AM [facility] Comment:Clinical correlation required for positive Urine Bilirubin results as false positive may occur with some drugs and drug related products. If a false positive is suspected a serum total bilirubin should be considered if clinically indicated. Urobilinogen, Urine Dipstick Normal Normal, 0.2 mg/dL, 1.0 mg/dL 04/11/2024 10:15 AM [facility] pH, Urine (dipstick) 7.0 5.0 - 8.0 04/11/2024 10:15 AM [facility] Blood, Urine Dipstick Negative Negative 04/11/2024 10:15 AM [facility] Ketone, Urine Dipstick Negative Negative 04/11/2024 10:15 AM [facility] Nitrite, Urine Dipstick Negative Negative 04/11/2024 10:15 AM [facility] Leukocytes, Urine Dipstick Negative Negative 04/11/2024 10:15 AM [facility] Specific [place] Urine Automated 1.006 1.005 - 1.030 04/11/2024 10:15 AM [facility] Appearance, Urine Dipstick Clear Clear 04/11/2024 10:15 AM [facility] Color, Urine Dipstick Yellow Yellow, Dark Yellow 04/11/2024 10:15 AM [facility] CULTURE ADDED? 04/11/2024 10:15 AM [facility] Urine Non Blood Collection / Unknown 04/11/2024 9:07 AM EST 04/11/2024 9:07 AM EST Sharmin Jean-Baptiste APRN URINE ORDERABLES [facility] [place] [address] * Protein/Creatinine Ratio, urine (04/11/2024 9:07 AM EST) Protein, Urine <4 0 - 12 mg/dL 04/11/2024 10:07 AM [facility] Creatinine, Urine 10 mg/dL 04/11/2024 10:07 AM [facility] Protein / Creatinine Ratio, Urine <0.4 ratio 04/11/2024 10:07 AM EST [facility] Urine URINE SPECIMEN / Unknown Non Blood Collection / Unknown 04/11/2024 9:07 AM EST 04/11/2024 9:07 AM EST Sharmin Jean-Baptiste SENIOR MAINTENANCE MACHINIST URINE ORDERABLES Performing Organization Address City/[facility]/ZIP Co de Phone Number [facility] [place] [address] * Albumin Level (04/11/2024 9:05 AM EST) Albumin 4.1 3.2 - 5.2 g/dL 04/11/2024 9:59 AM [facility] Blood VENOUS BLOOD SPECIMEN / Unknown Venipuncture / Unknown 04/11/2024 9:05 AM EST 04/11/2024 9:05 AM EST Sharmin Jean-Baptiste SENIOR MAINTENANCE MACHINIST CHEMISTRY ORDERAB LES [facility] [place] [address] * (ABNORMAL) Basic Metabolic Panel Non-fasting (04/11/2024 9:05 AM EST) Glucose 83 65 - 99 mg/dL 04/11/2024 9:59 AM [facility] Comment: Fasting Glucose Interpretive Criteria: Normal: 65-99 mg/dL ?? Prediabetes: 100-125 mg/dL ?? Consistent with Diabetes Mellitus: > or = 126 mg/dL ?? Classification and Diagnosis of Diabetes: Standards of Care in Diabetes - 2022. Diabetes Care 202; 46:S19. Fasting is defined as no caloric intake for at least 8 hours. Blood Urea Nitrogen 26(H) 8 - 18 mg/dL 04/11/2024 9:59 AM EST [facility] Creatinine 0.99 0.70 - 1.20 mg/dL 04/11/2024 9:59 AM [facility] Sodium 144 135 - 145 mMol/L 04/11/2024 9:59 AM [facility] Potassium 4.7 3.5 - 5.0 mMol/L 04/11/2024 9:59 AM [facility] Chloride 110(H) 98 - 107 mMol/L 04/11/2024 9:59 AM [facility] Carbon Dioxide 20(L) 22 - 31 mMol/L 04/11/2024 9:59 AM [facility] Anion Gap 14 5 - 15 mMol/L 04/11/2024 9:59 AM [facility] Calcium 10.2 8.5 - 10.5 mg/dL 04/11/2024 9:59 AM [facility] Est Glomerular Filtration Rate - Female 70 mL/min/1. 73 m?? 04/11/2024 9:59 AM [facility] Comment: This patient's estimated GFR [...] Foundation Fasting Status Yes 04/11/2024 9:59 AM [facility] Blood VENOUS BLOOD SPECIMEN / Unknown Venipuncture / Unknown 04/11/2024 9:05 AM EST 04/11/2024 9:05 AM EST Sharmin Jean-Baptiste APRN CHEMISTRY ORDERAB LES [facility] [place] [address] * (ABNORMAL) CBC (with Diff) (04/11/2024 9:05 AM EST) White Blood Cell 4.88 4.00 - 9.50 x10(3)/mc L 04/11/2024 9:37 AM [facility] Red Blood Cell 4.47 4.00 - 5.21 x10(6)/mc L 04/11/2024 9:37 AM [facility] Hemoglobin 13.7 11.7 - 15.5 g/dL 04/11/2024 9:37 AM [facility] Hematocrit 43.1 35.7 - 45.8 % 04/11/2024 9:37 AM [facility] Mean Cell Volume 96.4(H) 82.6 - 94.4 fL 04/11/2024 9:37 AM [facility] Mean Cell Hemoglobin 30.6 27.1 - 32.0 pg 04/11/2024 9:37 AM [facility] Mean Cell Hemoglobin Concentration 31.8 31.7 - 35.0 g/dL 04/11/2024 9:37 AM [facility] Platelet 185 145 - 357 x10(3)/mc L 04/11/2024 9:37 AM [facility] Mean Platelet Volume 9.6 7.6 - 12.9 fL 04/11/2024 9:37 AM [facility] RDW Standard Deviation 47.8(H) 37.0 - 46.0 fL 04/11/2024 9:37 AM [facility] RDW coefficient of variation 13.3 11.5 - 14.1 % 04/11/2024 9:37 AM [facility] NRBC% auto 0.0 % 04/11/2024 9:37 AM [facility] NRBC Absolute <0.01 <0.01 x10(3)/mc L 04/11/2024 9:37 AM [facility] Neutrophil % 60.7 % 04/11/2024 9:37 AM [facility] Neutrophil Absolute (ANC) - Automated 2.96 1.70 - 6.10 x10(3)/mc L 04/11/2024 9:37 AM [facility] Lymph % 25.8 % 04/11/2024 9:37 AM [facility] Lymph Absolute 1.26 0.90 - 3.20 x10(3)/mc L 04/11/2024 9:37 AM [facility] Monocyte % 9.0 % 04/11/2024 9:37 AM [facility] Monocyte Absolute 0.44 0.30 - 0.90 x10(3)/mc L 04/11/2024 9:37 AM [facility] Eos % 3.7 % 04/11/2024 9:37 AM [facility] Eos Absolute 0.18 0.00 - 0.40 x10(3)/mc L 04/11/2024 9:37 AM [facility] Basophil % 0.6 % 04/11/2024 9:37 AM [facility] Baso Absolute <0.04 0.00 - 0.10 x10(3)/mc L 04/11/2024 9:37 AM [facility] Immature Gran % 0.2 % 9:37 AM [facility] Immature Gran Absolute <0.04 0.00 - 0.04 x10(3)/mc L 04/11/2024 9:37 AM [facility] Blood VENOUS BLOOD SPECIMEN / Unknown Venipuncture / Unknown 04/11/2024 9:05 AM EST 04/11/2024 9:05 AM EST Sharmin Jean-Baptiste SENIOR MAINTENANCE MACHINIST HEMATOLOGY ORDERA BLES [facility] [place] [address] * Ferritin (04/11/2024 9:05 AM EST) Ferritin 37 6 - 175 ng/ml 04/11/2024 10:05 AM [facility] Blood VENOUS BLOOD SPECIMEN / Unknown Venipuncture / Unknown 04/11/2024 9:05 AM EST 04/11/2024 9:05 AM EST Sharmin Jean-Baptiste SENIOR MAINTENANCE MACHINIST CHEMISTRY ORDERAB LES Performing Organization Address City/[facility]/ZIP Co de Phone Number [facility] [place] [address] * (ABNORMAL) Iron and TIBC (04/11/2024 9:05 [...] 04/11/2024 9:05 AM EST Sharmin Antonia Jean-Baptiste SENIOR MAINTENANCE MACHINIST CHEMISTRY ORDERAB LES Performing Organization Address City/[facility]/ZIP Co de Phone Number [facility] [place] [address] * Phosphorus (04/11/2024 9:05 AM EST) Phosphorus 2.8 2.5 - 4.5 mg/dL 04/11/2024 9:59 AM EST [facility] Blood VENOUS BLOOD SPECIMEN / Unknown Venipuncture / Unknown 04/11/2024 9:05 AM EST 04/11/2024 9:05 AM EST Sharmingilberto Jean-Baptiste SENIOR MAINTENANCE MACHINIST CHEMISTRY ORDERAB LES [facility] [place] [address] * (ABNORMAL) PTH (04/11/2024 9:05 AM EST) Parathyroid Hormone 92(H) 15 - 65 pg/mL 04/11/2024 10:03 AM EST [facility] Blood VENOUS BLOOD SPECIMEN / Unknown Venipuncture / Unknown 04/11/2024 9:05 AM EST 04/11/2024 9:05 AM EST Sharmin Jean-Baptiste SENIOR MAINTENANCE MACHINIST CHEMISTRY ORDERAB LES Performing Organization Address City/[facility]/ZIP Co de Phone Number [facility] [place] [address] * Vitamin D, 25-Hydroxy (04/11/2024 9:05 AM EST) Vitamin D Total 25 OH 33 21 - 100 ng/ml 04/11/2024 11:53 AM EST [facility] Vitamin D Total 25 OH Interp Sufficient 04/11/2024 11:53 AM EST [facility] Blood VENOUS BLOOD SPECIMEN / Unknown Venipuncture / Unknown 04/11/2024 9:05 AM EST 04/11/2024 9:05 AM EST Sharmin Jean-Baptiste SENIOR MAINTENANCE MACHINIST CHEMISTRY ORDERAB LES Performing Organization Address City/[facility]/ZIP Co de Phone Number [facility] [place] [address] documented in this encounter Visit Diagnoses Diagnosis CKD (chronic kidney disease) stage 2, GFR 60-89 ml/min Chronic kidney disease, Stage II (mild) Vitamin D deficiency Unspecified vitamin D deficiency documented in this encounter Care Teams Special Warfare Combatant Crewman Relationship Specialty Start Date End Date Haylie Steward MD [place] [address] PCP - General General Internal Medicine 08/04/22 documented as of this encounter
--- OUTSIDE RECORDS SUMMARY | 2024-04-22 00:19 | XMS_ITS | Encounter Summary ---
[place] [address] Care Team Providers Care Sap Functional Analyst Name Role Phone Haylie Steward MD Primary Care Provider + [phone] Reason for Referral * Consultation (Routine) - Closed Specialty Diagnoses / Procedures Referred By Contac t Referred To Contact Urology Diagnoses Stress incontinence, female Sharmin Jean-Baptiste APRN [facility] [place] [address] [facility] [place] [address] Referral ID Status Reason Start Date Expiration Date V isits Requested Visits Authorized [id number] Closed Consult, Test & Treat 04/11/2024 04/11/2025 1 1 Encounter Details Date Type Department Care Team (Latest Contact Info) Description 04/11/2024 9:40 AM EST Office Visit Nephrology [place] [phone] Sharmin Jean-Baptiste APRN [facility] [place] [address] CKD (chronic kidney disease) stage 2, GFR 60-89 ml/min; Vitamin D deficiency; Stress incontinence, female Social History Tobacco Use Types Packs/Day Years [...] from your doctor or pharmacy? Rarely 02/15/2024 [facility] Utilities Answer Date Recorded In the [...] any time in the past 12 m [facility], were you homeless or living in a halfway (including now)? No 02/15/2024 [facility] Inpatient [...] Sign Reading Time Taken Comments Blood Pressure 132/79 04/11/2024 9:26 AM EST Pulse 67 04/11/2024 9:26 AM EST Temperature - - Respiratory Rate - - Oxygen Saturation - - Inhaled Oxygen Concentration - - Weight 67.1 kg (148 lb) 04/11/2024 9:26 AM EST Height 157.5 cm (5' 2) 04/11/2024 9:26 AM EST Body Mass Index 27.07 04/11/2024 9:26 AM EST documented in this encounter Progress Notes * Sharmin Jean-Baptiste, ELECTRONICS DEPARTMENT MANAGER - 04/11/2024 9:40 AM EST Images from the original note were not included. Nephrology/Hypertension Clinic Follow-up Note [id number] ID: 49 y.o.year-old female being seen for follow up of CKD Stage 2 with history of lithium use. S: Interim history - Patient was last seen by nephrology on 10/27/23, when at that time her GFR was stable at 65. She has been diagnosed with breast cancer. She underwent a left partial mastectomy on 02/29/24 and will be starting radiation tomorrow. Since her last visit, Nataliya has been doing well. Trying to stay active with walking. She just returned from a long weekend in [place]. She shares that her energy level is doing better. She is sleeping well. No lightheadedness or dizziness. No SOB. No chest pain/pressure. Appetite good. Hydration good. No N/V/D. She reports some urinary leakage which is distressing for her. She is wearing a pad and leaking urine daily. No bloody or foamy urine. No dysuria. No swelling. Occasional use of NSAIDs for post op pain. GFR Trend Over Time: Lab Results Component Value Date ESTGFR 70 04/11/2024 ESTGFR 67 01/21/2024 ESTGFR 65 10/26/2023 ESTGFR 64 07/28/2023 ESTGFR 48 (L) 06/08/2023 ESTGFR 57 (L) 04/23/2023 ESTGFR 58 (L) 02/12/2023 ESTGFR 52 (L) 01/06/2023 ESTGFR 59 (L) 10/01/2022 ESTGFR 37 (L) 09/09/2022 ESTGFR 40 (L) 09/08/2022 ESTGFR 39 (L) 09/07/2022 ESTGFR 36 (L) 09/07/2022 ESTGFR 33 (L) 09/06/2022 ESTGFR 48 (L) 08/04/2022 ESTGFR 42 (L) 06/25/2022 ESTGFR 46 (L) 12/26/2020 Past Medical History: Patient Active Problem List Diagnosis Code CKD (chronic kidney disease) stage 2, GFR 60-89 ml/min N18.2 Hyperparathyroidism E21.3 Anemia D64.9 [place] intoxication, accidental or unintentional, initial encounter T56.891A Abnormal antibody titer R76.0 Benign neoplasm of skin D23.9 Bipolar affective, mixed F31.60 Chronic pansinusitis J32.4 Chronic tonsillitis J35.01 H/O toe surgery Z98.890 Herpes zoster without complication B02.9 Hypothyroidism E03.9 Irritable bowel syndrome K58.9 White coat syndrome without diagnosis of hypertension R03.0 Bipolar 1 disorder F31.9 Malignant neoplasm of lower-inner quadrant of left breast in female, estrogen receptor positive C50.312, Z17.0 Outpatient Encounter Medications as of 04/11/2024 Medication Sig Dispense Refill divalproex ER (Depakote ER) 250 mg ER 24 hr tablet 2 tabs AM and 3 tabs PM. 150 tablet 2 buPROPion XL (Wellbutrin XL) 150 mg XL 24 hr tablet Take 1 tablet by mouth every morning. 90 tablet0 pilocarpine (Salagen) 5 mg tablet Take 1 tablet by mouth 3 times daily. 90 tablet 2 emollient combination no.111 (REMEDY PHYTOPLEX MOISTURIZER TOP) Apply topically. Phytoplex Remedy Moisturizer: Apply to area of radiation twice a day but no less than 2 hours before a treatment. Bifidobacterium infantis (ALIGN) 4 mg Capsule Take by mouth. loperamide (Imodium A-D) 2 mg capsule Take 2 mg by mouth 4 times daily as needed for Diarrhea. Takes one tablet twice daily psyllium seed, with sugar, (FIBER ORAL) Take by mouth 3 times daily. zolpidem (Ambien) 5 mg tablet Take 1 tablet by mouth nightly as needed for Sleep. 10 tablet 1 calciTRIoL (Rocaltrol) 0.25 mcg capsule Take 1 capsule by mouth daily. 90 tablet 3 clonazePAM (KlonoPIN) 0.5 mg disintegrating tablet Take 0.5 mg by mouth daily as needed. acetaminophen (Tylenol) 500 mg tablet Take 1,000 mg by mouth every 6 hours as needed for Pain. No facility-administered encounter medications on file as of 04/11/2024. Allergies Allergen Reactions Nsaids (Non-Steroidal Anti-Inflammatory Drug) All interfere with lithium Tolmetin All interfere with lithium Ibuprofen Patient states it affects her bipolar medication [place]. O: Vitals: 04/11/24 0926 BP: 132/79 Pulse: 67 Weight: 67.1 kg (148 lb) Height: 157.5 cm (5' 2) General: Arrived ambulatory. Alert, comfortable. Cooperative with exam. CV: S1 and S2. HR regular. JVP not elevated. Resp: Lungs clear with no crackles or wheezes. Respirations non labored. : No CVA tenderness. Ext: Warm. No cyanosis. No edema. Labs: Recent Results (from the past 72 hour(s)) Phosphorus Result Value Ref Range Phosphorus 2.8 2.5 - 4.5 mg/dL CBC (with Diff) Result Value Ref Range White Blood Cell 4.88 4.00 - 9.50 x10(3)/mcL Red Blood Cell 4.47 4.00 - 5.21 x10(6)/mcL Hemoglobin 13.7 11.7 - 15.5 g/dL Hematocrit 43.1 35.7 - 45.8 % Mean Cell Volume 96.4 (H) 82.6 - 94.4 fL Mean Cell Hemoglobin 30.6 27.1 - 32.0 pg Mean Cell Hemoglobin Concentration 31.8 31.7 - 35.0 g/dL Platelet 185 145 - 357 x10(3)/mcL Mean Platelet Volume 9.6 7.6 - 12.9 fL RDW Standard Deviation 47.8 (H) 37.0 - 46.0 fL RDW coefficient of variation 13.3 11.5 - 14.1 % NRBC% auto 0.0 % NRBC Absolute <0.01 <0.01 x10(3)/mcL Neutrophil % 60.7 % Neutrophil Absolute (ANC) - Automated 2.96 1.70 - 6.10 x10(3)/mcL Lymph % 25.8 % Lymph Absolute 1.26 0.90 - 3.20 x10(3)/mcL Monocyte % 9.0 % Monocyte Absolute 0.44 0.30 - 0.90 x10(3)/mcL Eos % 3.7 % Eos Absolute 0.18 0.00 - 0.40 x10(3)/mcL Basophil % 0.6 % Baso Absolute <0.04 0.00 - 0.10 x10(3)/mcL Immature Gran % 0.2 % Immature Gran Absolute <0.04 0.00 - 0.04 x10(3)/mcL Basic Metabolic Panel Non-fasting Result Value Ref Range Glucose 83 65 - 99 mg/dL Blood Urea Nitrogen 26 (H) 8 - 18 mg/dL Creatinine 0.99 0.70 - 1.20 mg/dL Sodium 144 135 - 145 mMol/L Potassium 4.7 3.5 - 5.0 mMol/L Chloride 110 (H) 98 - 107 mMol/L Carbon Dioxide 20 (L) 22 - 31 mMol/L Anion Gap 14 5 - 15 mMol/L Calcium 10.2 8.5 - 10.5 mg/dL Est Glomerular Filtration Rate - Female 70 mL/min/1.73 m?? Fasting Status Yes Albumin Level Result Value Ref Range Albumin 4.1 3.2 - 5.2 g/dL A/P: 49 y.o.year-old female seen for follow up for CKD Stage 2 with history of lithium use. CKD Stage 2 with a GFR of 70 today. Her GFR has been improving since September of 2022. Risk factors for worsening renal function reviewed. Discussed importance of good blood pressure control, adequate hydration, and avoidance of NSAIDs. Will refer to urology for stress incontinence. Hemodynamics - BP appears to be adequately controlled. Continue current management. Fluid volume status acceptable. Anemia - No anemia related to chronic disease. KDIGO Hgb goal in CKD is 10.0-11.5g/dL. Ferritin >100ng/dl, TSAT >20% Bone and mineral - PTH, calcium and phos acceptable. Continue calcitriol 0.25mcg daily. KDIGO PTH goals in CKD: PTH < 150pg/ml Acid-base - Metabolic acidosis is not present. Electrolytes - Potassium and sodium are in range. Nutrition - Normal albumin suggests adequate protein intake. Transplant/access referral - Not indicated. Return to clinic - Will return in approximately 3 months for follow-up. Patient encouraged to reachout with any questions or concerns. >the total time spent [id number] AND total time the provider spent counseling was 30 minutes. CC: Haylie Steward MD @[email or web address]@ documented in this encounter Plan of Treatment Upcoming Encounters Date Type Department Care Team (Latest Contact Info) Description 04/22/2024 9:45 AM EST Scheduled View Only Radiation Oncology at [address] [phone] 04/25/2024 8:30 AM EST Scheduled View Only Radiation Oncology at [address] [phone] 04/26/2024 3:00 PM EST Scheduled View Only Radiation Oncology at [address] [phone] 04/26/2024 3:30 PM EST Office Visit Radiation Oncology at [address] [phone] Ofe Fonseca MD [facility] DR RADIATION [place] [address] 04/28/2024 2:45 PM EST Scheduled View Only Radiation Oncology at [address] [phone] 04/29/2024 3:00 PM EST Scheduled View Only Radiation Oncology at [address] [phone] 05/02/2024 3:45 PM EST Scheduled View Only Radiation Oncology at [address] [phone] 05/03/2024 1:45 PM EST Scheduled View Only Radiation Oncology at [address] [phone] 05/03/2024 2:15 PM EST Office Visit Radiation Oncology at [address] [phone] Ofe Fonseca MD [facility] RADIATION [place] [address] 05/05/2024 8:15 AM EST Scheduled View Only Radiation Oncology at [address] [phone] 05/06/2024 12:30 PM EST Scheduled View Only Radiation Oncology at [address] [phone] 05/09/2024 3:00 PM EST Scheduled View Only Radiation Oncology at [address] [phone] 05/10/2024 2:30 PM EST Scheduled View Only Radiation Oncology at [address] [phone] 05/10/2024 3:15 PM EST Office Visit Radiation Oncology at [address] [phone] Ofe Fonseca MD [facility] RADIATION [place] [address] 05/11/2024 2:45 PM EST Scheduled View Only Radiation Oncology at [address] [phone] 06/03/2024 3:30 PM EST Appointment [place] [phone] Mira Hutchison APRN [facility] [place] [address] 06/23/2024 4:00 PM EST Appointment Mammography/[place] [phone] Miryam Feliciano MD [facility] DR MEDICAL [place] [address] 07/12/2024 8:00 AM EDT Laboratory Appointment Lab [address] [phone] 07/12/2024 9:30 AM EDT Office Visit Nephrology [place] [phone] Sharmin Jean-Baptiste [facility] [place] [address] 07/13/2024 10:30 AM EDT Laboratory Appointment Lab at [facility] Hematology Oncology [address] [place] [phone] 07/13/2024 11:30 AM EDT Office Visit Hematology [place] [phone] Salena Alvares [facility] DR MEDICAL [place] [address] 07/13/2024 12:45 PM EDT Appointment Hematology [place] [phone] Scheduled Referrals Name Type Priority Associated Diagnoses Orde r Schedule Referral to Urology Outpatient Referral Routine Stress incontinence, female Ordered: 04/11/2024 documented as of this encounter Results * Protein/Creatinine Ratio, urine (04/11/2024 9:07 AM EST) Protein, Urine <4 0 - 12 mg/dL 04/11/2024 10:07 AM [facility] Creatinine, Urine 10 mg/dL 04/11/2024 10:07 AM [facility] Protein / Creatinine Ratio, Urine <0.4 ratio 04/11/2024 10:07 AM [facility] Urine URINE SPECIMEN / Unknown Non Blood Collection / Unknown 04/11/2024 9:07 AM EST 04/11/2024 9:07 AM EST Sharmin Jean-Baptiste ELECTRONICS DEPARTMENT MANAGER URINE ORDERABLES Performing Organization Address City/[facility]/ZIP Co de Phone Number [facility] [place] [address] * Vitamin D, 25-Hydroxy (04/11/2024 9:05 AM EST) Vitamin D Total 25 OH 33 21 - 100 ng/ml 04/11/2024 11:53 AM EST [facility] Vitamin D Total 25 OH Interp Sufficient 04/11/2024 11:53 AM EST [facility] Blood VENOUS BLOOD SPECIMEN / Unknown Venipuncture / Unknown 04/11/2024 9:05 AM EST 04/11/2024 9:05 AM EST Sharmin Antonia AgueroEstiven ELECTRONICS DEPARTMENT MANAGER CHEMISTRY ORDERAB LES Performing Organization Address City/[facility]/ZIP Co de Phone Number [facility] [place] [address] * (ABNORMAL) PTH (04/11/2024 9:05 AM EST) Parathyroid Hormone 92(H) 15 - 65 pg/mL 04/11/2024 10:03 AM EST [facility] Blood VENOUS BLOOD SPECIMEN / Unknown Venipuncture / Unknown 04/11/2024 9:05 AM EST 04/11/2024 9:05 AM EST Sharmin Antonia MckenzieEstiven ELECTRONICS DEPARTMENT MANAGER CHEMISTRY ORDERAB LES Performing Organization Address City/[facility]/ZIP Co de Phone Number [facility] [place] [address] * Phosphorus (04/11/2024 9:05 AM EST) Phosphorus 2.8 2.5 - 4.5 mg/dL 04/11/2024 9:59 AM EST [facility] Blood VENOUS BLOOD SPECIMEN / Unknown Venipuncture / Unknown 04/11/2024 9:05 AM EST 04/11/2024 9:05 AM EST Sharmingilberto Jean-Baptiste ELECTRONICS DEPARTMENT MANAGER CHEMISTRY ORDERAB LES Performing Organization Address City/[facility]/ZIP Co de Phone Number [facility] [place] [address] * (ABNORMAL) Iron and TIBC (04/11/2024 9:05 AM EST) Iron 73 30 - 150 mcg/dL 04/11/2024 11:11 AM EST [facility] TIBC 381 250 - 450 mcg/dL 04/11/2024 11:11 AM EST [facility] Iron Saturation 19(L) 20 - 50 % 11:11 AM EST [facility] Blood VENOUS BLOOD SPECIMEN / Unknown Venipuncture / Unknown 04/11/2024 9:05 AM EST 04/11/2024 9:05 AM EST Sharmin L Estiven ELECTRONICS DEPARTMENT MANAGER CHEMISTRY ORDERAB LES Performing Organization Address City/[facility]/ZIP Co de Phone Number [facility] [place] [address] * Ferritin (04/11/2024 9:05 AM EST) Ferritin 37 6 - 175 ng/ml 04/11/2024 10:05 AM EST [facility] Blood VENOUS BLOOD SPECIMEN / Unknown Venipuncture / Unknown 04/11/2024 9:05 AM EST 04/11/2024 9:05 AM EST Sharmin L Estiven ELECTRONICS DEPARTMENT MANAGER CHEMISTRY ORDERAB LES Performing Organization Address City/[facility]/ZIP Co de Phone Number [facility] [place] [address] * (ABNORMAL) CBC (with Diff) (04/11/2024 9:05 AM EST) White Blood Cell 4.88 4.00 - 9.50 x10(3)/mc L 04/11/2024 9:37 AM [facility] Red Blood Cell 4.47 4.00 - 5.21 x10(6)/mc L 04/11/2024 9:37 AM [facility] Hemoglobin 13.7 11.7 - 15.5 g/dL 04/11/2024 9:37 AM [facility] Hematocrit 43.1 35.7 - 45.8 % 04/11/2024 9:37 AM [facility] Mean Cell Volume 96.4(H) 82.6 - 94.4 fL 04/11/2024 9:37 AM [facility] Mean Cell Hemoglobin 30.6 27.1 - 32.0 pg 04/11/2024 9:37 AM [facility] Mean Cell Hemoglobin Concentration 31.8 31.7 - 35.0 g/dL 04/11/2024 9:37 AM [facility] Platelet 185 145 - 357 x10(3)/mc L 04/11/2024 9:37 AM [facility] Mean Platelet Volume 9.6 7.6 - 12.9 fL 04/11/2024 9:37 AM [facility] RDW Standard Deviation 47.8(H) 37.0 - 46.0 fL 04/11/2024 9:37 AM [facility] RDW coefficient of variation 13.3 11.5 - 14.1 % 04/11/2024 9:37 AM [facility] NRBC% auto 0.0 % 04/11/2024 9:37 AM [facility] NRBC Absolute <0.01 <0.01 x10(3)/mc L 04/11/2024 9:37 AM [facility] Neutrophil % 60.7 % 04/11/2024 9:37 AM [facility] Neutrophil Absolute (ANC) - Automated 2.96 1.70 - 6.10 x10(3)/mc L 04/11/2024 9:37 AM [facility] Lymph % 25.8 % 04/11/2024 9:37 AM [facility] Lymph Absolute 1.26 0.90 - 3.20 x10(3)/mc L 04/11/2024 9:37 AM [facility] Monocyte % 9.0 % 04/11/2024 9:37 AM [facility] Monocyte Absolute 0.44 0.30 - 0.90 x10(3)/mc L 04/11/2024 9:37 AM [facility] Eos % 3.7 % 04/11/2024 9:37 AM [facility] Eos Absolute 0.18 0.00 - 0.40 x10(3)/mc L 04/11/2024 9:37 AM [facility] Basophil % 0.6 % 04/11/2024 9:37 AM [facility] Baso Absolute <0.04 0.00 - 0.10 x10(3)/mc L 04/11/2024 9:37 AM [facility] Immature Gran % 0.2 % 9:37 AM [facility] Immature Gran Absolute <0.04 0.00 - 0.04 x10(3)/mc L 04/11/2024 9:37 AM [facility] Blood VENOUS BLOOD SPECIMEN / Unknown Venipuncture / Unknown 04/11/2024 9:05 AM EST 04/11/2024 9:05 AM EST Sharmin Jean-Baptiste ELECTRONICS DEPARTMENT MANAGER HEMATOLOGY ORDERA BLES [facility] [place] [address] * (ABNORMAL) Basic Metabolic Panel Non-fasting (04/11/2024 9:05 AM EST) Glucose 83 65 - 99 mg/dL 04/11/2024 9:59 AM [facility] Comment: Fasting Glucose Interpretive Criteria: Normal: 65-99 mg/dL ?? Prediabetes: 100-125 mg/dL ?? Consistent with Diabetes Mellitus: > or = 126 mg/dL ?? Classification and Diagnosis of Diabetes: Standards of Care in Diabetes - 2022. Diabetes Care 202; 46:S19. Fasting is defined as no caloric intake for at least 8 hours. Blood Urea Nitrogen 26(H) 8 - 18 mg/dL 04/11/2024 9:59 AM [facility] Creatinine 0.99 0.70 - 1.20 mg/dL 04/11/2024 9:59 AM [facility] Sodium 144 135 - 145 mMol/L 04/11/2024 9:59 AM [facility] Potassium 4.7 3.5 - 5.0 mMol/L 04/11/2024 9:59 AM [facility] Chloride 110(H) 98 - 107 mMol/L 04/11/2024 9:59 AM [facility] Carbon Dioxide 20(L) 22 - 31 mMol/L 04/11/2024 9:59 AM [facility] Anion Gap 14 5 - 15 mMol/L 04/11/2024 9:59 AM [facility] Calcium 10.2 8.5 - 10.5 mg/dL 04/11/2024 9:59 AM [facility] Est Glomerular Filtration Rate - Female 70 mL/min/1. 73 m?? 04/11/2024 9:59 AM [facility] Comment: This patient's estimated GFR was [...] Fasting Status Yes 04/11/2024 9:59 AM EST [facility] Blood VENOUS BLOOD SPECIMEN / Unknown Venipuncture / Unknown 04/11/2024 9:05 AM EST 04/11/2024 9:05 AM EST Sharmin Antonia Jean-Baptiste ELECTRONICS DEPARTMENT MANAGER CHEMISTRY ORDERAB LES [facility] [place] [address] * Albumin Level (04/11/2024 9:05 AM EST) Albumin 4.1 3.2 - 5.2 g/dL 04/11/2024 9:59 AM EST [facility] Blood VENOUS BLOOD SPECIMEN / Unknown Venipuncture / Unknown 04/11/2024 9:05 AM EST 04/11/2024 9:05 AM EST Sharmin L Estiven ELECTRONICS DEPARTMENT MANAGER CHEMISTRY ORDERAB LES Performing Organization Address City/[facility]/ZIP Co de Phone Number [facility] [place] [address] documented in this encounter Visit Diagnoses Diagnosis CKD (chronic kidney disease) stage 2, GFR 60-89 ml/min Chronic kidney disease, Stage II (mild) Vitamin D deficiency Unspecified vitamin D deficiency Stress incontinence, female Female stress incontinence documented in this encounter Care Teams Sap Functional Analyst Relationship Specialty Start Date End Date Haylie Steward MD [facility] [address] PCP - General General Internal Medicine 08/04/22 documented as of this encounter
--- OUTSIDE RECORDS SUMMARY | 2024-04-22 00:19 | XMS_ITS | Encounter Summary ---
[place] [address] Care Team Providers Care Co Founder And President Name Role Phone Haylie Steward MD Primary Care Provider + [phone] Encounter Details Date Type Department Care Team (Latest Contact Info) Description 03/15/2024 2:55 PM EST Laboratory Appointment Lab [address]L [place] [phone] Bipolar 1 disorder Social History Tobacco Use Types Packs/Day Years [...] from your doctor or pharmacy? Rarely 02/15/2024 [facility] Utilities Answer Date Recorded In the past 12 months has [employer], [employer], oil, or water [employer] threatened to shut off services in your [...] any time in the past 12 m [facility], were you homeless or living in a fci (including now)? No 02/15/2024 DH IPV Inpatient [...] EST Scheduled View Only Radiation Oncology at [address] [address] 04/25/2024 8:30 AM EST Scheduled View Only Radiation Oncology at [address] [address] 04/26/2024 3:00 PM EST Scheduled View Only Radiation Oncology at [address] [address] 04/26/2024 3:30 PM EST Office Visit Radiation Oncology at [address] [address] Ofe Fonseca MD [facility] DR [place] [address] 04/28/2024 2:45 PM EST Scheduled View Only Radiation Oncology at [address] [address] 04/29/2024 3:00 PM EST Scheduled View Only Radiation Oncology at [address] [address] 05/02/2024 3:45 PM EST Scheduled View Only Radiation Oncology at [address] [address] 05/03/2024 1:45 PM EST Scheduled View Only Radiation Oncology at [address] [address] 05/03/2024 2:15 PM EST Office Visit Radiation Oncology at [address] [address] Ofe Fonseca MD [facility] [place] [address] 05/05/2024 8:15 AM EST Scheduled View Only Radiation Oncology at [address] [address] 05/06/2024 12:30 PM EST Scheduled View Only Radiation Oncology at [address] [address] 05/09/2024 3:00 PM EST Scheduled View Only Radiation Oncology at [address] [address] 05/10/2024 2:30 PM EST Scheduled View Only Radiation Oncology at [address] [address] 05/10/2024 3:15 PM EST Office Visit Radiation Oncology at [address] [address] Ofe Fonseca MD [facility] [place] [address] 05/11/2024 2:45 PM EST Scheduled View Only Radiation Oncology at [address] [address] 06/03/2024 3:30 PM EST Appointment Ultrasound at [place] [phone] Mira Hutchison G[employer] REGULATOR REPAIRER HELPER [facility] [place] [address] 06/23/2024 4:00 PM EST Appointment Mammography/[place] [address] Miryam Feliciano MD [facility] [place] [address] 07/12/2024 8:00 AM EDT Laboratory Appointment Lab [address] [place], [place] [phone] 07/12/2024 9:30 AM EDT Office Visit Nephrology Hypertension at [place] [phone] Sharmin Jean-Baptiste [facility] [place] [address] 07/13/2024 10:30 AM EDT Laboratory Appointment Lab at [facility] Hematology Oncology [address] [place] [phone] 07/13/2024 11:30 AM EDT Office Visit Hematology [place] [phone] Salena Alvares [facility] [place] [address] 07/13/2024 12:45 PM EDT Appointment Hematology [place] [address] documented as of this encounter Procedures Procedure Name Priority Date/Time Associated Diagnosis Comments T3, FREE Routine 03/15/2024 12:27 PM EST Bipolar 1 disorder T3 TOTAL Routine 03/15/2024 12:27 PM EST Bipolar 1 disorder TSH Routine 03/15/2024 12:27 PM EST Bipolar 1 disorder T4, FREE Routine 03/15/2024 12:27 PM EST Bipolar 1 disorder T4 TOTAL Routine 03/15/2024 12:27 PM EST Bipolar 1 disorder documented in this encounter Results * TSH (03/15/2024 12:27 PM EST) Thyroid Stimulating Hormone 1.85 0.27 - 4.20 mcIU/mL 03/15/2024 1:18 PM EST [facility] Comment: Reference Interval (mcIU/mL): ?? Females: ? First Trimester: 0.23-3.88 ? Second Trimester: 0.22-3.90 ? Third Trimester: 0.44-4.66 Blood VENOUS BLOOD SPECIMEN / Unknown Venipuncture / Unknown 03/15/2024 12:27 PM EST 03/15/2024 12:27 PM EST Michelet Monge MD CHEMISTRY ORDERABLES [facility] [place] [address] * T4, free (03/15/2024 12:27 PM EST) Free T4 1.49 0.93 - 1.70 ng/dL 03/15/2024 1:18 PM EST [facility] Comment: Reference Interval (ng/dL): ?? Females: ? First Trimester: 0.97-1.68 ? Second Trimester: 0.77-1.51 ? Third Trimester: 0.77-1.49 Blood VENOUS BLOOD SPECIMEN / Unknown Venipuncture / Unknown 03/15/2024 12:27 PM EST 03/15/2024 12:27 PM EST Michelet Monge MD CHEMISTRY ORDERABLES [facility] [place] [address] * T3, free (03/15/2024 12:27 PM EST) Free T3 2.3 2.0 - 4.4 pg/mL 03/15/2024 1:18 PM EST [facility] Blood VENOUS BLOOD SPECIMEN / Unknown Venipuncture / Unknown 03/15/2024 12:27 PM EST 03/15/2024 12:27 PM EST Michelet Monge MD CHEMISTRY ORDERABLES Performing Organization Address City/[facility]/ZIP Co de Phone Number [facility] [place] [address] * T4 Total (03/15/2024 12:27 PM EST) T4 Total 8.6 5.3 - 11.6 mcg/dL 03/15/2024 1:18 PM EST [facility] Comment: Reference Interval (mcg/dL): ?? Females: ? First Trimester: 6.3-13.5 ? Second Trimester: 7.1-14.3 ? Third Trimester: 6.9-14.1 Blood VENOUS BLOOD SPECIMEN / Unknown Venipuncture / Unknown 03/15/2024 12:27 PM EST 03/15/2024 12:27 PM EST Michelet Monge MD CHEMISTRY ORDERABLES Performing Organization Address City/[facility]/ZIP Co de Phone Number [facility] [place] [address] * (ABNORMAL) T3 Total (03/15/2024 12:27 PM EST) T3 Total 73(L) 80 - 200 ng/dL 03/15/2024 1:18 PM EST [facility] Blood VENOUS BLOOD SPECIMEN / Unknown Venipuncture / Unknown 03/15/2024 12:27 PM EST 03/15/2024 12:27 PM EST Michelet Monge MD CHEMISTRY ORDERABLES Performing Organization Address City/State/[place] Co de Phone Number [facility] [place] [address] documented in this encounter Visit Diagnoses Diagnosis Bipolar 1 disorder Bipolar I disorder, most recent episode (or current) unspecified documented in this encounter Care Teams Co Founder And President Relationship Specialty Start Date [place] [address] PCP - General General Internal Medicine 08/04/22 documented as of this encounter
--- OUTSIDE RECORDS SUMMARY | 2024-04-22 00:19 | XMS_ITS | Encounter Summary ---
[place] [address] Care Team Providers Care Variety Lathe Operator Name Role Phone Haylie Steward MD Primary Care Provider + [phone] Reason for Visit * Treatment/Therapy Plan Authorization (Routine) - Authorized Specialty Diagnoses / Procedures Referred By Contac t Referred To Contact Diagnoses Malignant neoplasm of lower-inner quadrant of left breast in female, estrogen receptor positive Procedures INFUSION Miryam Feliciano MD [facility] [place] [address] [facility] Hem Onc [address] [place] [address] Referral ID Status Reason Start Date Expiration Date V isits Requested Visits Authorized [id number] Authorized 04/14/2024 04/14/2025 99 Encounter Details Date Type Department Care Team (Latest Contact Info) Description 04/15/2024 2:42 PM EST - 04/15/2024 11:59 PM EST Hospital Encounter Hematology [place] [phone] Malignant neoplasm of lower-inner quadrant of left breast in female, estrogen receptor positive Discharge Disposition: Home Social History Tobacco Use Types Packs/Day Years [...] from your doctor or pharmacy? Rarely 02/15/2024 [facility] Utilities Answer Date Recorded In the past [...] any time in the past 12 m [facility], were you homeless or living in [...] Sign Reading Time Taken Comments Blood Pressure 168/96 04/15/2024 3:03 PM EST Pulse 65 04/15/2024 3:03 PM EST Temperature 36.9 ??C (98.5 ??F) 04/15/2024 3:03 PM ES T Respiratory Rate 18 04/15/2024 3:03 PM EST Oxygen Saturation 95% 04/15/2024 3:03 PM EST Inhaled Oxygen Concentration - - Weight - - Height - - Body Mass Index - - documented in this encounter Medications at Time of Discharge Medication Sig Dispensed Refills Start Date End Date letrozole (Femara) 2.5 mg tablet Take 1 tablet by mouth daily. Please call clinic before starting. 90 tablet 3 04/15/2024 cariprazine (Vraylar) 1.5 mg capsule 03/23/2021 multivitamin with minerals (One-A-Day) Tablet Take 1 tablet by mouth. divalproex ER (Depakote ER) 250 mg ER 24 hr tablet 2 tabs AM and 3 tabs PM. 150 tablet 2 03/23/2024 buPROPion XL (Wellbutrin XL) 150 mg XL 24 hr tablet Take 1 tablet by mouth every morning. 90 tablet 03/23/2024 pilocarpine (Salagen) 5 mg tablet Take 1 tablet by mouth 3 times daily. 90 tablet 2 03/23/2024 emollient combination no.111 (REMEDY PHYTOPLEX MOISTURIZER TOP) [...] needed for Sleep. 10 tablet 1 02/08/2024 calciTRIoL (Rocaltrol) 0.25 mcg capsuleIndications:Stage 3a chronic kidney disease (CKD) Take 1 capsule by mouth daily. 90 tablet 3 07/28/2023 clonazePAM (KlonoPIN) 0.5 mg disintegrating tablet Take 0.5 mg by mouth daily as needed. acetaminophen (Tylenol) 500 mg tablet Take 1,000 mg by mouth every 6 hours as needed for Pain. lithium 300 mg capsule 04/11/202104/19 documented as of this encounter Progress Notes * Ольга Stallings RN - 04/15/2024 3:16 PM EST Patient Name: Nataliya Morfin Patient Age: 49 y.o. Birthdate: 1975 Admit date: 04/15/2024 Attending Physician: No att. providers found Nataliya Morfin is a 49 y.o. female with a diagnosis of 1. Malignant neoplasm of lower-inner quadrant of left breast in female, estrogen receptor positive who presents to [facility] today for a medication injection of Zoladex. PROTOCOL: [id number] (first time injection) This patient meets criteria per their therapy plan to receive treatment at this date/time. Permission to treat from provider confirmed. See MAR for complete admiration details. Injection administered to LLQ. Tolerated well. documented in this encounter Plan of Treatment Upcoming Encounters Date Type Department Care Team (Latest Contact Info) Description 04/22/2024 9:45 AM EST Scheduled View Only Radiation Oncology at [address] [address] 04/25/2024 8:30 AM EST Scheduled View Only Radiation Oncology at [address] [address] 04/26/2024 3:00 PM EST Scheduled View Only Radiation Oncology at [address] [address] 04/26/2024 3:30 PM EST Office Visit Radiation Oncology at [address] [address] Ofe Fonseca MD [facility] [place] [address] 04/28/2024 2:45 PM EST Scheduled View Only Radiation Oncology at [address] [address] 04/29/2024 3:00 PM EST Scheduled View Only Radiation Oncology at [address] [address] 05/02/2024 3:45 PM EST Scheduled View Only Radiation Oncology at [address] [address] 05/03/2024 1:45 PM EST Scheduled View Only Radiation Oncology at [address] [address] 05/03/2024 2:15 PM EST Office Visit Radiation Oncology at [address] [address] Ofe Fonseca MD [facility] [place] [address] 05/05/2024 8:15 AM EST Scheduled View Only Radiation Oncology at [address] [address] 05/06/2024 12:30 PM EST Scheduled View Only Radiation Oncology at [address] [address] 05/09/2024 3:00 PM EST Scheduled View Only Radiation Oncology at [address] [address] 05/10/2024 2:30 PM EST Scheduled View Only Radiation Oncology at [address] [address] 05/10/2024 3:15 PM EST Office Visit Radiation Oncology at [address] [address] Ofe Fonseca MD [facility] [place] [address] 05/11/2024 2:45 PM EST Scheduled View Only Radiation Oncology at [address] [address] 06/03/2024 3:30 PM EST Appointment Ultrasound at [place] [phone] Mira Hutchison [facility] [place] [address] 06/23/2024 4:00 PM EST Appointment Mammography/DXA at [place] [phone] Miryam Feliciano MD [facility] [place] [address] 07/12/2024 8:00 AM EDT Laboratory Appointment Lab [address] [place], [place] [phone] 07/12/2024 9:30 AM EDT Office Visit Nephrology Hypertension at [place] [phone] Sharmin Jean-Baptiste, [facility] [place] [address] 07/13/2024 10:30 AM EDT Laboratory Appointment Lab at [facility] Hematology Oncology [address] [place] [phone] 07/13/2024 11:30 AM EDT Office Visit Hematology [place] [phone] Salena Alvares [facility] [place] [address] 07/13/2024 12:45 PM EDT Appointment Hematology [place] [phone] documented as of this encounter Visit Diagnoses Diagnosis Malignant neoplasm of lower-inner quadrant of left breast in female, estrogen receptor positive documented in this encounter Administered Medications Inactive Administered Medications - up to 3 most recent administrations Medication Order MAR Action Action Date Dose Rate Site goserelin (Zoladex) implant 10.8 mg 10.8 mg, Subcutaneous, ONCE, 1 dose, On Thu04/15/24 at 1515, Routine, This agent is restricted to outpatient use. Is this drug being given as an outpatient? Yes Given 04/15/2024 3:12 PM EST 10.8 mg Left Lower Quadrant lidocaine (Xylocaine) 1% (10 mg/mL) injection 30 mg 30 mg (3 mL), Subcutaneous, ONCE, 1 dose, On Thu04/15/24 at 1515, Order either ice or lidocaine for the injection. Inject up to 3 mL., Routine Given 04/15/2024 3:12 PM EST 30 mg documented in this encounter Care Teams Variety Lathe Operator Relationship Specialty Start Date [place] [address] PCP - General General Internal Medicine 08/04/22 documented as of this encounter
--- OUTSIDE RECORDS SUMMARY | 2024-04-22 00:19 | XMS_ITS | Encounter Summary ---
Author Organization [facility] [place] [address] Care Team Providers Care Buzzle Buffer Name Role Phone Haylie Steward MD Primary Care Provider + [phone] Encounter Details Date Type Department Care Team (Latest Contact Info) Description 04/13/2024 Travel Social History Tobacco Use Types Packs/Day [...] from your doctor or pharmacy? Rarely 02/15/2024 [facility] Utilities Answer Date Recorded In [...] were you homeless or living in a alf (including now)? No 02/15/2024 DH IPV Inpatient [...] EST Scheduled View Only Radiation Oncology at [address] [address] 04/25/2024 8:30 AM EST Scheduled View Only Radiation Oncology at [address] [address] 04/26/2024 3:00 PM EST Scheduled View Only Radiation Oncology at [address] [address] 04/26/2024 3:30 PM EST Office Visit Radiation Oncology at [address] [address] Ofe Fonseca MD [facility] [place] [address] 04/28/2024 2:45 PM EST Scheduled View Only Radiation Oncology at [address] [address] 04/29/2024 3:00 PM EST Scheduled View Only Radiation Oncology at [address] [address] 05/02/2024 3:45 PM EST Scheduled View Only Radiation Oncology at [address] [address] 05/03/2024 1:45 PM EST Scheduled View Only Radiation Oncology at [address] [address] 05/03/2024 2:15 PM EST Office Visit Radiation Oncology at [address] [address] Ofe Fonseca MD [facility] [place] [address] 05/05/2024 8:15 AM EST Scheduled View Only Radiation Oncology at [address] [address] 05/06/2024 12:30 PM EST Scheduled View Only Radiation Oncology at [address] [address] 05/09/2024 3:00 PM EST Scheduled View Only Radiation Oncology at [address] [address] 05/10/2024 2:30 PM EST Scheduled View Only Radiation Oncology at [address] [address] 05/10/2024 3:15 PM EST Office Visit Radiation Oncology at [address] [address] Ofe Fonseca MD [facility] [place] [address] 05/11/2024 2:45 PM EST Scheduled View Only Radiation Oncology at [address] [address] 06/03/2024 3:30 PM EST Appointment Ultrasound at [place] [phone] Mira Hutchison [facility] [place] [address] 06/23/2024 4:00 PM EST Appointment Mammography/DXA at [place] [phone] Miryam Feliciano MD [facility] [place] [address] 07/12/2024 8:00 AM EDT Laboratory Appointment Lab [address] [place], [place] [phone] 07/12/2024 9:30 AM EDT Office Visit Nephrology Hypertension at [place] [phone] Sharmin Jean-Baptiste, [facility] [place] [address] 07/13/2024 10:30 AM EDT Laboratory Appointment Lab at [facility] Hematology Oncology [address] [place] [phone] 07/13/2024 11:30 AM EDT Office Visit Hematology [place] [phone] Salena Avlares, [facility] [place] [address] 07/13/2024 12:45 PM EDT Appointment Hematology and Oncology at [place] [phone] documented as of this encounter Visit Diagnoses Not on filedocumented in this encounter Care Teams Buzzle Buffer Relationship Specialty Start Date End Date Haylie Steward MD [facility] [place] [address] PCP - General General Internal Medicine 08/04/22 documented as of this encounter
--- OUTSIDE RECORDS SUMMARY | 2024-04-22 00:19 | XMS_ITS | Encounter Summary ---
Author Organization [facility] [place] [address] Care Team Providers Care Metal Polisher Name Role Phone Haylie Steward MD Primary Care Provider + [phone] Encounter Details Date Type Department Care Team (Late st Contact Info) Description 04/13/2024 Telephone Hematology [place] [phone] Kimberlee Kennedy, RN Social History Tobacco Use Types Packs/Day Years [...] from your doctor or pharmacy? Rarely 02/15/2024 [facility] Utilities Answer Date Recorded In the past 12 months has [facility], gas, oil, or water [employer] threatened to shut off services in your [...] any time in the past 12 m [facility], were you homeless or living in a nursing home (including now)? No 02/15/2024 DH IPV [...] PM EDT documented as of this encounter Miscellaneous Notes * Telephone Encounter - Kimberlee Kennedy RN - 04/13/2024 10:10 AM EST Message forwarded to the team. No order or note found for letrozole. Letrozole unknown to this RN administered via injection. Regarding: letrozole Nataliya called today and has decided to get the letrozole injections. She is scheduled for this Thursday for the one. She has a few questions about side affects and also about getting COVID shot Please give her a call back [phone] documented in this encounter Plan of Treatment Upcoming Encounters Date Type Department Care Team (Latest Contact Info) Description 04/22/2024 9:45 AM EST Scheduled View Only Radiation Oncology at [address] [address] 04/25/2024 8:30 AM EST Scheduled View Only Radiation Oncology at [address] [address] 04/26/2024 3:00 PM EST Scheduled View Only Radiation Oncology at [address] [address] 04/26/2024 3:30 PM EST Office Visit Radiation Oncology at [address] [address] Ofe Fonseca MD [facility] [place] [place] [address] 04/28/2024 2:45 PM EST Scheduled View Only Radiation Oncology at [address] [address] 04/29/2024 3:00 PM EST Scheduled View Only Radiation Oncology at [address] [address] 05/02/2024 3:45 PM EST Scheduled View Only Radiation Oncology at [address] [address] 05/03/2024 1:45 PM EST Scheduled View Only Radiation Oncology at [address] [address] 05/03/2024 2:15 PM EST Office Visit Radiation Oncology at [address] [address] Ofe Fonseca MD [facility] [place] [address] 05/05/2024 8:15 AM EST Scheduled View Only Radiation Oncology at [address] [address] 05/06/2024 12:30 PM EST Scheduled View Only Radiation Oncology at [address] [address] 05/09/2024 3:00 PM EST Scheduled View Only Radiation Oncology at [address] [address] 05/10/2024 2:30 PM EST Scheduled View Only Radiation Oncology at [address] [address] 05/10/2024 3:15 PM EST Office Visit Radiation Oncology at [address] [address] Ofe Fonseca MD [facility] [place] [address] 05/11/2024 2:45 PM EST Scheduled View Only Radiation Oncology at [address] [address] 06/03/2024 3:30 PM EST Appointment [place] [address] Mira Hutchison [facility] [place] [address] 06/23/2024 4:00 PM EST Appointment Mammography/DXA at [place] [phone] Miryam Feliciano MD [facility] [place] [address] 07/12/2024 8:00 AM EDT Laboratory Appointment Lab [address] [phone] 07/12/2024 9:30 AM EDT Office Visit Nephrology Hypertension at [place] [phone] Sharmin Jean-Baptiste [facility] [place] [address] 07/13/2024 10:30 AM EDT Laboratory Appointment Lab at [facility] Hematology Oncology [address] [place] [phone] 07/13/2024 11:30 AM EDT Office Visit Hematology [place] [phone] Salena Alvares APRN [facility] [place] [address] 07/13/2024 12:45 PM EDT Appointment Hematology [place] [phone] documented as of this encounter Visit Diagnoses Not on filedocumented in this encounter Care Teams Metal Polisher Relationship Specialty Start Date End Date Haylie Steward MD [facility] [place] [address] PCP - General General Internal Medicine 08/04/22 documented as of this encounter
--- OUTSIDE RECORDS SUMMARY | 2024-04-22 00:19 | XMS_ITS | Encounter Summary ---
Author Organization [facility] [place] [address] Care Team Providers Care Respiratory Therapy Aide Name Role Phone Haylie Steward MD Primary Care Provider + [phone] Encounter Details Date Type Department Care Team (Latest Contact Info) Description 03/22/2024 Travel Social History Tobacco Use Types Packs/Day [...] from your doctor or pharmacy? Rarely 02/15/2024 [facility] Utilities Answer Date Recorded In the [...] EST Scheduled View Only Radiation Oncology at [address] [address] 04/25/2024 8:30 AM EST Scheduled View Only Radiation Oncology at [address] [address] 04/26/2024 3:00 PM EST Scheduled View Only Radiation Oncology at [address] [address] 04/26/2024 3:30 PM EST Office Visit Radiation Oncology at [address] [address] Ofe Fonseca MD [facility] [place] [address] 04/28/2024 2:45 PM EST Scheduled View Only Radiation Oncology at [address] [address] 04/29/2024 3:00 PM EST Scheduled View Only Radiation Oncology at [address] [address] 05/02/2024 3:45 PM EST Scheduled View Only Radiation Oncology at [address] [address] 05/03/2024 1:45 PM EST Scheduled View Only Radiation Oncology at [address] [address] 05/03/2024 2:15 PM EST Office Visit Radiation Oncology at [address] [address] Ofe Fonseca MD [facility] RADIATION [place] [address] 05/05/2024 8:15 AM EST Scheduled View Only Radiation Oncology at [address] [address] 05/06/2024 12:30 PM EST Scheduled View Only Radiation Oncology at [address] [address] 05/09/2024 3:00 PM EST Scheduled View Only Radiation Oncology at [address] [address] 05/10/2024 2:30 PM EST Scheduled View Only Radiation Oncology at [address] [address] 05/10/2024 3:15 PM EST Office Visit Radiation Oncology at [address] [address] Ofe Fonseca MD [facility] [place] [address] 05/11/2024 2:45 PM EST Scheduled View Only Radiation Oncology at [address] [address] 06/03/2024 3:30 PM EST Appointment Ultrasound at [place] [phone] Mira Hutchison [facility] [place] [address] 06/23/2024 4:00 PM EST Appointment Mammography/DXA at [place] [phone] Miryam Feliciano MD [facility] [place] [place] [address] 07/12/2024 8:00 AM EDT Laboratory Appointment Lab [address] [place], [place] [phone] 07/12/2024 9:30 AM EDT Office Visit Nephrology Hypertension at [place] [phone] Sharmin Jean-Baptiste, [facility] [place] [address] 07/13/2024 10:30 AM EDT Laboratory Appointment Lab at [facility] [place] [place] Hematology Oncology [address] [place] [phone] 07/13/2024 11:30 AM EDT Office Visit Hematology [place] [phone] Salena Alvares, [facility] [place] [address] 07/13/2024 12:45 PM EDT Appointment Hematology and Oncology at [place] [phone] documented as of this encounter Visit Diagnoses Not on filedocumented in this encounter Care Teams Respiratory Therapy Aide Relationship Specialty Start Date End Date Haylie Steward MD [facility] [place] [address] PCP - General General Internal Medicine 08/04/22 documented as of this encounter
--- OUTSIDE RECORDS SUMMARY | 2024-04-22 00:19 | XMS_ITS | Encounter Summary ---
Author Organization [facility] [place] [address] Care Team Providers Care Car Designer Name Role Phone Haylie Steward MD Primary Care Provider + [phone] Encounter Details Date Type Department Care Team (Latest Contact Info) Description 04/07/2024 Travel Social History Tobacco Use Types Packs/Day [...] from your doctor or pharmacy? Rarely 02/15/2024 [facility] Utilities Answer Date Recorded In the past [...] were you homeless or living in a usp (including now)? No 02/15/2024 [facility] IPV Inpatient [...] EST Scheduled View Only Radiation Oncology at [address] [address] 04/25/2024 8:30 AM EST Scheduled View Only Radiation Oncology at [address] [address] 04/26/2024 3:00 PM EST Scheduled View Only Radiation Oncology at [address] [address] 04/26/2024 3:30 PM EST Office Visit Radiation Oncology at [address] [address] Ofe Fonseca MD [facility] [place] [address] 04/28/2024 2:45 PM EST Scheduled View Only Radiation Oncology at [address] [address] 04/29/2024 3:00 PM EST Scheduled View Only Radiation Oncology at [address] [address] 05/02/2024 3:45 PM EST Scheduled View Only Radiation Oncology at [address] [address] 05/03/2024 1:45 PM EST Scheduled View Only Radiation Oncology at [address] [address] 05/03/2024 2:15 PM EST Office Visit Radiation Oncology at [address] [address] Ofe Fonseca MD [facility] [place] [address] 05/05/2024 8:15 AM EST Scheduled View Only Radiation Oncology at [address] [address] 05/06/2024 12:30 PM EST Scheduled View Only Radiation Oncology at [address] [address] 05/09/2024 3:00 PM EST Scheduled View Only Radiation Oncology at [address] [address] 05/10/2024 2:30 PM EST Scheduled View Only Radiation Oncology at [address] [address] 05/10/2024 3:15 PM EST Office Visit Radiation Oncology at [address] [address] Ofe Fonseca MD [facility] [place] [address] 05/11/2024 2:45 PM EST Scheduled View Only Radiation Oncology at [address] [address] 06/03/2024 3:30 PM EST Appointment Ultrasound at [place] [phone] Mira Hutchison [facility] [place] [address] 06/23/2024 4:00 PM EST Appointment Mammography/DXA at [place] [phone] Miryam Feliciano MD [facility] [place] [address] 07/12/2024 8:00 AM EDT Laboratory Appointment Lab [address] [place], [place] [phone] 07/12/2024 9:30 AM EDT Office Visit Nephrology Hypertension at [place] [phone] Sharmin Jean-Baptiste, [facility] [place] [address] 07/13/2024 10:30 AM EDT Laboratory Appointment Lab at [facility] Hematology Oncology [address] [place] [phone] 07/13/2024 11:30 AM EDT Office Visit H[place] [phone] Salena Alvares, [facility] [place] [address] 07/13/2024 12:45 PM EDT Appointment Hematology and Oncology at [place] [phone] documented as of this encounter Visit Diagnoses Not on filedocumented in this encounter Care Teams Car Designer Relationship Specialty Start Date End Date Haylie Steward MD [facility] [place] [address] PCP - General General Internal Medicine 08/04/22 documented as of this encounter
--- OUTSIDE RECORDS SUMMARY | 2024-04-22 00:19 | XMS_ITS | Encounter Summary ---
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 Rarely 02/15/2024 [facility] Utilities Answer Date Recorded In the past 12 months has e electric, gas, oil, or water company [...] were you homeless or living in a retirement (including now)? No 02/15/2024 [facility] IPV Inpatient [...] PM EDT documented as of this encounter Progress Notes * Yoselin Rolle, DONOR SERVICES TEAM LEADER - 04/07/2024 3:30 PM EST Nataliya Morfin returns to clinic today for a hospital check. She is s/p left partial mastectomy performed by Dr. [place] on 02/29/24. She states She is doing well postoperatively and is not needing pain medication. She denies fever or chills. She has no other complaints at this time. On Physical examination, looks well and is in NAD. The inframammary incision is intact without disruption, erythema or drainage. She is healing quite well. Assessment: S/P left partial mastectomy. Doing well, no evidence of cellulitis or wound disruption.Plan for radiation therapy to start next week. Plan: Will return in follow up with new baseline mammogram in January of 2025. She will call in the interim with any new concerns. Yoselin Rolle APRN documented in this encounter Plan of Treatment Upcoming Encounters Date Type Department Care Team (Latest Contact Info) Description 04/22/2024 9:45 AM EST Scheduled View Only Radiation Oncology at [address] [address] 04/25/2024 8:30 AM EST Scheduled View Only Radiation Oncology at [address] [address] 04/26/2024 3:00 PM EST Scheduled View Only Radiation Oncology at [address] [address] 04/26/2024 3:30 PM EST Office Visit Radiation Oncology at [address] [address] Ofe Fonseca MD [facility] RADI[place] [address] 04/28/2024 2:45 PM EST Scheduled View Only Radiation Oncology at [address] [address] 04/29/2024 3:00 PM EST Scheduled View Only Radiation Oncology at [address] [address] 05/02/2024 3:45 PM EST Scheduled View Only Radiation Oncology at [address] [address] 05/03/2024 1:45 PM EST Scheduled View Only Radiation Oncology at [address] [address] 05/03/2024 2:15 PM EST Office Visit Radiation Oncology at [address] [address] Ofe Fonseca MD [facility] RADIATION [place] [address] 05/05/2024 8:15 AM EST Scheduled View Only Radiation Oncology at [address] [address] 05/06/2024 12:30 PM EST Scheduled View Only Radiation Oncology at [address] [address] 05/09/2024 3:00 PM EST Scheduled View Only Radiation Oncology at [address] [address] 05/10/2024 2:30 PM EST Scheduled View Only Radiation Oncology at [address] [address] 05/10/2024 3:15 PM EST Office Visit Radiation Oncology at [address] [address] Ofe Fonseca MD [facility] RADIATION ONCOLOGY [place] [phone] 05/11/2024 2:45 PM EST Scheduled View Only Radiation Oncology at [address] [address] 06/03/2024 3:30 PM EST Appointment Ultrasound at [place] [phone] Mira Hutchison APRN [facility] [place] [address] 06/23/2024 4:00 PM EST Appointment Mammography/[place] [phone] Miryam Feliciano MD [facility] MED[place] [address] 07/12/2024 8:00 AM EDT Laboratory Appointment Lab [place] [address] 07/12/2024 9:30 AM EDT Office Visit Nephrology Hypertension at [place] [phone] Sharmin Jean-Baptiste, [facility] [place] [address] 07/13/2024 10:30 AM EDT Laboratory Appointment Lab at [facility] [place]ology Oncology [address] [place] [phone] 07/13/2024 11:30 AM EDT Office Visit Hematology and Oncology at [place] [phone] Salena Alvares, [facility] [place] [address] 07/13/2024 12:45 PM EDT Appointment Hematology and Oncology at [place] [phone] Scheduled Orders Name Type Priority Associated Diagnoses Orde r Schedule Mammo Diagnostic CAD and Edward Bilateral Imaging Routine Malignant neoplasm of lower-inner quadrant of left breast in female, estrogen receptor positive Expected: 01/18/2025, Expires: 10/11/2025 documented as of this encounter Visit Diagnoses Diagnosis Malignant neoplasm of lower-inner quadrant of left breast in female, estrogen receptor positive documented in this encounter Care Teams 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
--- OUTSIDE RECORDS SUMMARY | 2024-04-22 00:19 | XMS_ITS | Encounter Summary ---
Author Organization [facility] Address [facility] [place] [address] Care Team Providers Care Shelter Director Name Role Phone Haylie Steward MD Primary Care Provider + [phone] Reason for Visit * Reason Comments On Treatment Visit Encounter Details Date Type Department Care Team (Late st Contact Info) Description 04/12/2024 12:15 PM EST Office Visit Radiation Oncology at [address] [phone] Ofe Fonseca MD [facility] [place] [address] Malignant neoplasm of lower-inner quadrant of left [...] from your doctor or pharmacy? Rarely 02/15/2024 [facility] Utilities Answer Date Recorded In the past 12 months has th e [employer], gas, oil, or water company threatened to [...] any time in the past 12 [facility], were you homeless or living in a detention (including now)? No 02/15/2024 [facility] IPV Inpatient [...] Sign Reading Time Taken Comments Blood Pressure 145/83 04/12/2024 12:02 PM EST Pulse 60 04/12/2024 12:02 PM EST Temperature 37 ??C (98.6 ??F) 04/12/2024 12:02 PM EST Respiratory Rate 18 04/12/2024 12:02 PM EST Oxygen Saturation 100% 04/12/2024 12:02 PM EST Inhaled Oxygen Concentration - - Weight 65.1 kg (143 lb 9.6 oz) 04/12/2024 12:02 PM EST Height 157.5 cm (5' 2.01) 04/12/2024 12:[address] Body Mass Index 26.26 04/12/2024 12:02 PM EST documented in this encounter Progress Notes * Ofe Fonseca MD - 04/12/2024 12:15 PM EST Images from the original note were not included. DIAGNOSIS: Breast ca, L, IDC, gr 1, ER+VT+, Her2-, DCIS, s/p lumpectomy & SNB followed by reexcision, pT1b pN0. Oncotype DX 12. CURRENT TREATMENT DOSE: 2.66 Gy L breast ANTICIPATED TOTAL DOSE: 42.56 Gy L breast, 52.56 Gy lumpectomy bed Current # of xrt received: 1 L breast Anticipated total # of xrt txs: 16 L breast, 20 lumpectomy bed Evaluation of port verification films: Approved. For details, see electronic film record in [employer]. Changes in Medical Condition: None. Pain?: No Your Medications Accurate as of April 12, 2024 1:04 PM. If you have any questions, ask your [...] by mouth 3 times daily. Refills: 0 loperamide 2 mg capsule Commonly known as: Imodium A-D Take 2 mg by mouth 4 times daily as needed for Diarrhea. Takes one tablet twice daily 2 mg Refills: 0 pilocarpine 5 mg tablet Commonly known as: Salagen Take 1 tablet by mouth 3 times daily. 5 mg Quantity: 90 tablet Refills: 2 REMEDY PHYTOPLEX MOISTURIZER TOP Apply topically. Phytoplex Remedy Moisturizer: Apply to area of radiation twice a day but no less than 2 hours before a treatment. Refills: 0 zolpidem 5 mg tablet Commonly known as: Ambien Take 1 tablet by mouth nightly as needed for Sleep. 5 mg Quantity: 10 tablet Refills: 1 Physical Exam: BP 145/83 (Patient Position: Sitting) Pulse 60 Temp 37 ??C (98.6 ??F) (Temporal) Resp 18 Ht 157.5 cm (5' 2.01) Wt 65.1 kg (143 lb 9.6 oz) SpO2 100% BMI 26.26 kg/m?? A&Ox3, NAD. Amb stable. Imagin03/22/24 Dx'ic Rad Interp Ctsim: There is cholelithiasis. Hypodense lesions in the kidneyshave been characterized previously as cysts. There are nonobstructing renal stones. Performance Status: KPS 100% Response to xrt: As expected. Irradiation Related Symptoms: None. Treatment for Symptom Control: Remedy cream. Pain Management: Not needed. Recommendation on Continuing Course of xrt: Continue. Discussed Ctsim finding of cholelithiasis & hypodense lesions in kidneys probably representing cysts. Recommend defer eval/tx of cholelithiasis to PCP (Isael Chou); Nataliya agrees and she asked that her solar process engineer (Mary Jean-Baptiste APRN) be informed about the kidney findings. documented in this encounter Plan of Treatment Upcoming Encounters Date Type Department Care Team (Latest Contact Info) Description 04/22/2024 9:45 AM EST Scheduled View Only Radiation Oncology at [address] [address] 04/25/2024 8:30 AM EST Scheduled View Only Radiation Oncology at [address] [address] 04/26/2024 3:00 PM EST Scheduled View Only Radiation Oncology at [address] [address] 04/26/2024 3:30 PM EST Office Visit Radiation Oncology at [address] [phone] Ofe Fonseca MD [facility] [place] [address] 04/28/2024 2:45 PM EST Scheduled View Only Radiation Oncology at [address] [address] 04/29/2024 3:00 PM EST Scheduled View Only Radiation Oncology at [address] [address] 05/02/2024 3:45 PM EST Scheduled View Only Radiation Oncology at [address] [address] 05/03/2024 1:45 PM EST Scheduled View Only Radiation Oncology at [address] [address] 05/03/2024 2:15 PM EST Office Visit Radiation Oncology at [address] [address] Ofe Fonseca MD [facility] [place] [address] 05/05/2024 8:15 AM EST Scheduled View Only Radiation Oncology at [address] [address] 05/06/2024 12:30 PM EST Scheduled View Only Radiation Oncology at [address] [address] 05/09/2024 3:00 PM EST Scheduled View Only Radiation Oncology at [address] [address] 05/10/2024 2:30 PM EST Scheduled View Only Radiation Oncology at [address] [address] 05/10/2024 3:15 PM EST Office Visit Radiation Oncology at [address] [address] Ofe Fonseca MD [facility] DR [place] [address] 05/11/2024 2:45 PM EST Scheduled View Only Radiation Oncology at [address] [address] 06/03/2024 3:30 PM EST Appointment Ultrasound at [place] [phone] [facility] [address] 06/23/2024 4:00 PM EST Appointment Mammography/DXA at [place] [phone] Miryam Feliciano MD [facility] [place] [address] 07/12/2024 8:00 AM EDT Laboratory Appointment Lab [place] [phone] 07/12/2024 9:30 AM EDT Office Visit [place] [phone] [facility] [address] 07/13/2024 10:30 AM EDT Laboratory Appointment Lab at [facility] Hematology Oncology [address] [place] [phone] 07/13/2024 11:30 AM EDT Office Visit H[place]ology [place] [address] Salena Alvares APRN [facility] [place] [address] 07/13/2024 12:45 PM EDT Appointment H[place]ology [place] [phone] documented as of this encounter Visit Diagnoses Diagnosis Malignant neoplasm of lower-inner quadrant of left breast in female, estrogen receptor positive documented in this encounter Care Teams Shelter Director Relationship Specialty Start Date [place] [address] PCP - General General Internal Medicine 08/04/22 documented as of this encounter
--- OUTSIDE RECORDS SUMMARY | 2024-04-22 00:19 | XMS_ITS | Encounter Summary ---
Author Organization [facility] Address [facility] [place] [address] Care Team Providers Care [employer] Power [employer] Manager Name Role Phone Haylie Steward MD Primary Care Provider + [phone] Reason for Visit * Reason Comments Advice Only * Consultation (Routine) - Closed Specialty Diagnoses / Procedures Referred By Contac t Referred To Contact Hematology and Oncology Diagnoses Breast cancer s/p L breast partial mastectomy on 02.05.24 Procedures NEW PATIENT Hailey Dawson MD [facility] [place] [address] Miryam Feliciano MD [facility] [place] [address] Referral ID Status Reason Start Date Expiration Date Visits Re quested Visits Authorized [id number] Closed 03/02/2024 03/02/2025 1 1 Encounter Details Date Type Department Care Team (Late st Contact Info) Description 04/07/2024 2:00 PM EST Office Visit [place] [address] Miryam Feliciano MD [facility] [place] [address] Malignant neoplasm of lower-inner quadrant of left breast in female, estrogen receptor positive; Aromatase inhibitor use; Medication management Social History Tobacco Use Types Packs/Day Years [...] from your doctor or pharmacy? Rarely 02/15/2024 [facility] Utilities Answer Date Recorded In [...] in the past 12 m [facility], were you homeless or living in a intermediate (including now)? No 02/15/2024 [facility] IPV Inpatient [...] Sign Reading Time Taken Comments Blood Pressure 148/93 04/07/2024 2:09 PM EST Pulse 75 04/07/2024 2:09 PM EST Temperature 37 ??C (98.6 ??F) 04/07/2024 2:09 PM EST Respiratory Rate 18 04/07/2024 2:09 PM EST Oxygen Saturation 99% 04/07/2024 2:09 PM EST Inhaled Oxygen Concentration - - Weight 67.4 kg (148 lb 9.4 oz) 04/07/2024 2:09 P M EST Height 157.9 cm (5' 2.17) 04/07/2024 2:09 PM ES T Body Mass Index 27.03 04/07/2024 2:09 PM EST documented in this encounter Progress Notes * Miryam Feliciano MD - 04/07/2024 2:00 PM EST Images from the original note were not included. [facility] Patient Name: Nataliya Morfin is a 49 y.o. female from [place], [place] (45 min away). : 1975 Visit Date: 04/07/2024 PCP: Haylie Steward MD Breast surgical oncology: Hailey Dawson MD Radiation oncology: Ofe Fonseca MD Referring provider: Hailey Dawson MD [facility] [place] [address] Reason for visit: Consultation was requested by Dr. Dawson for new diagnosis of breast cancer. Summary: 49 y.o. female with stage IA invasive ductal carcinoma of the LEFT breast, ER+ / ME+ / HER2-, Oncotype 12, originally diagnosed 01/14/2024, s/p BCS & SLNB on 02/08 w/ positive margins, s/pre-excision on 02/28, here to establish care. Oncotype DX RS: 12; 3% recurrence risk Genetics: 01/19/2024: IXI-Playitae 74-gene panel showed VUS in CHEK2 and RB1 CHEK2 [id number] NGS: N/A Menopausal Status: pre-menopausal Contraception/ Fertility: Not sexually active CURRENT TX: Pending ONCOLOGIC HX: Presented with screening mammogrram 01/14/2024- screening mammogram ([facility]) A 13 mm focal asymmetry with architectural distortion at approximately 7 o'clock 3 cm from the nipple in the left breast. 01/14/2024- diagnostic mammogram and ultrasound ([facility]) Diagnostic mammogram: 15 mm spiculated mass in the left breast at 7 o'clock 4 cm from the nipple. Diagnostic ultrasound: Spiculated hypoechoic mass, 12 mm in greatest dimension containing central calcifications at 7 o'clock 4 cm from the nipple. 01/21/2024- MRI breast IMPRESSION LEFT BREAST: Biopsy-proven malignancy in the lower inner quadrant, anterior to mid depth measuring about 1.5 cm. 2. Areas of more confluent nonmass enhancement and possible mass as described above (#2 and #3) while these areas likely represent background parenchymal enhancement, further evaluation with ultrasound is recommended. If the ultrasound is negative, MRI guided biopsy may be suggested. RIGHT BREAST: Exam limited by marked background parenchymal enhancement without focal suspicious findings. RECOMMENDATION: MRI directed ultrasound of the left breast as described above. If ultrasound is negative, MR guided biopsy may be recommended. Ultrasound evaluation of left-sided low axillary lymph nodes. 01/25/2024- diagnostic mammogram and ultrasound AREA SCANNED: Superior and inferior left breast, [...] Associated vascularity is identified. Recommend ultrasound-guided biopsy. IMPRESSION Sonographic correlates for breast MRI lesions #2 and #3 identified above. RECOMMENDATION: Recommend ultrasound-guided biopsy of lesion #2 and lesion #3 01/14/2024- core needle biopsy, left breast IDC, low grade, LVI- DCIS, low grade, cribiform pattern wo comedonecrosis ER+ >90%, moderate. ME+ >90%, strong. HER2- by FISH with ratio 1.8. 02/01/2024- core needle biopsy, left breast lesion #2 and #3 Lesion #2: Benign breast tissue with adenosis, columnar cell change, pseudoangiomatous stromal hyperplasia (PASH), and stromal fibrosis. Lesion #3: Benign breast tissue with columnar cell change, pseudoangiomatous stromal hyperplasia (PASH), stromal fibrosis, and cysts. 02/05/2024- BCS & SLNB A. Breast, left. partial mastectomy Lesion 2: - Focal ductal carcinoma in situ (DCIS), intermediate nuclear grade without necrosis, measuring 2 mm in greatest dimension. - Margin negative for DCIS: 1.5 mm to inferior, 2 mm to anterior, >2 mm to residual margins in this specimen. - Columnar cell change and columnar cell hyperplasia. - Fibrocystic changes (cysts, sclerosing adenosis, and stromal fibrosis). - Biopsy site changes. B. Breast, left, lesion 1, excision: - Invasive ductal carcinoma, 9mm, low grade, single focus. LVI-. DCIS present, EIC-, grade 2, solidand cribiform patterns. Margins: invasive carcinoma present at posterior and lateral margins. DCIS present at lateral margin. - Ductal carcinoma in situ. - Columnar cell change and columnar cell hyperplasia. - Fibrocystic changes (cysts, sclerosing adenosis, and stromal fibrosis). - Biopsy site changes. C. Left sentinel node excision: - Two lymph nodes, negative for malignancy. (0/2) 02/29/2024- Re-excision surgery A. Breast, Left, Partial Mastectomy: Lesion 3 Benign breast tissue with fibrocystic changes including columnar cell change/hyperplasia, adenosis, usual ductal hyperplasia and apocrine metaplasia. - Negative for malignancy. B. Breast, Left lateral margin, Excision: - Breast tissue with marked procedure related changes. - Negative for malignancy. C. Breast, Left posterior margin, Excision: - Breast tissue with focal florid usual ductal hyperplasia, negative for malignancy. 03/22/2024- Ctsim Interval History: 04/07/2024- here to establish care Starting radiation next week with Dr. Fonseca Doing well after surgery - full ROM and no lymphedema ROS negative for headache, CP, SOB, n/v/d/c. Assessment & Plan: 49 y.o. female with stage IA invasive ductal carcinoma of the LEFT breast, ER+ / ME+ / HER2-, Oncotype 12, originally diagnosed 01/14/2024, s/p BCS & SLNB on 02/08 w/ positive margins, s/p re-excision on 02/28, here to establish care. Today we discussed the diagnosis of breast cancer in broad strokes starting with the anatomy of thebreast and normal ductal cells, through the evolution of atypia, ductal carcinoma in situ, and invasive disease. We reviewed her imaging and pathology reports in detail. The significance of invasive disease was discussed in terms of having access to lymph and blood vessels, allowing for spread of cancer cells throughout the body despite local treatment with surgery and radiation. I let her know the purpose of antihormonal therapy is to reduce her risk for cancer cells surviving outside of the breast and metastatic breast cancer. We discussed the option of tamoxifen briefly. Side effects including rare occurrence of uterine cancer and VTE were discussed. Given her use of Wellbutrin and desire to continue on this medication, and the interaction this has with tamoxifen, we discussed in more detail the option of ovarian suppression with aromatase inhibitor, which is her preferred treatment. I let her know ovarian suppressioncan be achieved with a shot that is given just underneath the skin every 12 weeks. We would monitorher estradiol and FSH levels periodically to ensure adequate suppression. I let her know the other option is oophorectomy. I encouraged her to try the shot first to see how she feels with it. After this shot is given, a few weeks later we can start letrozole. I explained the mechanism of action of letrozole which is an aromatase inhibitor. It is an oral medication taken once a day without regard to food, for a duration of at least 5 years. Side effects include arthralgia, vaginal dryness, hot flashes, mood change, weight gain, hair loss, brain fog, and loss in bone density. We would obtain a baseline DEXA, and every 2 years. If she were approaching osteoporosis we would start a bisphosphonate. I encouraged her to take vitamin D 2000 units daily and start weightbearing exercise, 30 minutes/day, 5 days/week to prevent bone loss. Regarding the CHEK2 variant of uncertain significance - evidence suggests that cancer risks for heterozygotes range from population to high risk, influenced by the specific variant, family history, and other risk factors. This CHEK2 variant is a rare missense mutation. Studies suggest that it does not affect protein function, however there are insufficient data to conclude its role in disease. I encouraged Nataliya to remain up-to-date with cancer screenings including colorectal, DISASTER RECOVERY COORDINATOR and skin checks. I do not plan on any additional surveillance testing beyond standard of care given the uncertainsignificance of this mutation. 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, rare, uncertain significance -Encouraged routine cancer screenings Recommendations/Plan: Schedule OFS, check estradiol/FSH in 2-3 weeks (will try to arrange when she is at [facility]) Proceed with radiation as planned Start letrozole 2 weeks after radiation is complete; assuming adequate ovarian suppression - Rx sent Follow-up: RTC in 12 weeks with labs, 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 Was working as [employer]; stopped when she was diagnosed. Enjoys art, spending time with family/friends, being outside, walking, skiing. Review of Symptoms: As per HPI, all other systems were reviewed and are negative. Review of Systems - Oncology Allergies: Allergies as of 04/07/2024 - Review Complete 03/22/2024 Allergen Reaction Noted Nsaids (non-steroidal anti-inflammatory drug) 03/03/2016 Tolmetin 03/03/2016 Ibuprofen 08/10/2013 Medical History: Past Medical History: Diagnosis Date Bipolar 1 disorder Breast cancer Chronic kidney disease (CKD) stage G3b/A1, moderately decreased glomerular filtration rate (GFR) between 30-44 mL/min/1.73 square meter and albuminuria creatinine ratio less than 30 mg/g Hyperparathyroidism Hypothyroid OCD (obsessive compulsive disorder) IBS - takes immodium daily Current Medications: Current Outpatient Medications Medication Sig divalproex ER (Depakote ER) 250 mg ER 24 hr tablet 2 tabs AM and 3 tabs PM. buPROPion XL (Wellbutrin XL) 150 mg XL 24 hr tablet Take 1 tablet by mouth every morning. pilocarpine (Salagen) 5 mg tablet Take 1 tablet by mouth 3 times daily. emollient combination no.111 (REMEDY PHYTOPLEX MOISTURIZER TOP) [...] by mouth nightly as needed for Sleep. calciTRIoL (Rocaltrol) 0.25 mcg capsule Take 1 capsule by mouth daily. clonazePAM (KlonoPIN) 0.5 mg disintegrating tablet Take 0.5 mg by mouth daily as needed. acetaminophen (Tylenol) 500 mg tablet Take 1,000 mg by mouth every 6 hours as needed for Pain. Stopped Synthroid recently Vitamin D daily Surgical History: Past Surgical History: Procedure Laterality Date EYE SURGERY tear ducts as a child MAMMO MAGSEED PLACEMENT MULTIPLE LEFT Left 02/01/2024 Mammo Magseed Placement Multiple Left 02/01/2024 Martha Martino MD [facility] RAD MAMMOGRAPHY MAMMO US BIOPSY LEFT Left 01/14/2024 Mammo Us Biopsy Left 01/14/2024 MAMMO US BIOPSY MULTIPLE LEFT Left 02/01/2024 Mammo US Biopsy Multiple Left 02/01/2024 Martha Martino MD [facility] RAD MAMMOGRAPHY PRO BX/REMV, LYMPH NODE, DEEP AXILL Left 02/05/2024 BIOPSY OR EXCISION OF LYMPH NODE(S), OPEN, DEEP AXILLARY NODE(S) (WRVU 6.43) performed by Hailey Dawson MD at [facility] OSC PRO COLONOSCOPY, BIOPSY N/A 06/11/2023 COLONOSCOPY FLEXIBLE, WITH BX (WRVU 3.56) performed by Jack Page MD at [facility] ENDOSCOPY PRO INTRAOP SENTINEL LYMPH ID W/DYE INJECTION Left 02/05/2024 INTRAOPERATIVE ID (MAPPING) SENTINEL LYMPH NODE,INCLUDES INJECTION (WRVU 2.5) performed by Hailey Dawson MD at [facility] OSC PRO MASTECTOMY PARTIAL Left 02/05/2024 MASTECTOMY PARTIAL (WRVU 10.13) performed by Hailey Dawson MD at [facility] OSC PRO MASTECTOMY PARTIAL Left 02/29/2024 MASTECTOMY PARTIAL (WRVU 10.13) performed by Hailey Dawson MD at [facility] OSC PRO UPPER GI ENDOSCOPY, BIOPSY N/A 06/11/2023 EGD WITH BIOPSY (WRVU 2.39) performed by Jack Page MD at [facility] ENDOSCOPY TOE SURGERY Family History: Family History Problem (# of Occurrences) Relation (Name,Age of Onset) Arrhythmia (1) Mother Cancer (1) Paternal Aunt: salivary gland cancer Prostate Cancer (3) Father (71), Maternal Grandfather, Paternal Uncle Pancreatic Cancer (1) Paternal Aunt Bladder Cancer (1) Mother (82) Melanoma (1) Mother (62) Negative family history of: Breast Cancer, Ovarian Cancer Social History: reports that she has never smoked. She has never used smokeless tobacco. She reports that she does not currently use alcohol. She reports that she does not use drugs. Physical Exam: Vital signs and weight : Wt Readings from Last 3 Encounters: 02/29/24 62.7 kg (138 lb 4.8 oz) 02/22/24 63.9 kg (140 lb 12.8 oz) 02/05/24 62.1 kg (137 lb) Temp Readings from Last 3 Encounters: 02/29/24 36 ??C (96.8 ??F) (Temporal) 02/22/24 37.2 ??C (98.9 ??F) (Temporal) 02/05/24 36 ??C (96.8 ??F) (Temporal) BP Readings from Last 3 Encounters: 02/29/24 142/85 02/22/24 143/78 02/05/24 158/79 Pulse Readings from Last 3 Encounters: 02/29/24 77 02/22/24 76 02/05/24 68 ECOG PS: 0 Physical Exam Vitals reviewed. Constitutional: General: She is not in acute distress. Appearance: Normal appearance. She is not ill-appearing. HENT: Head: Normocephalic and atraumatic. Mouth/Throat: Mouth: Mucous membranes are moist. Pharynx: Oropharynx is clear. Eyes: Extraocular Movements: Extraocular movements intact. Conjunctiva/sclera: Conjunctivae normal. Pupils: Pupils are equal, round, and reactive to light. Cardiovascular: Rate and Rhythm: Normal rate and regular rhythm. Heart sounds: No murmur heard. Pulmonary: Effort: Pulmonary effort is normal. Breath sounds: Normal breath sounds. No wheezing or rales. Chest: Chest wall: No mass or tenderness. Breasts: Right: No mass or tenderness. Left: No mass or tenderness. Abdominal: General: Abdomen is flat. Bowel sounds are normal. There is no distension. Palpations: There is no mass. Musculoskeletal: General: No swelling or tenderness. Normal range of motion. Cervical back: Normal range of motion. Lymphadenopathy: Cervical: No cervical adenopathy. Skin: General: Skin is warm and dry. Neurological: General: No focal deficit present. Mental Status: She is alert and oriented to person, place, and time. Psychiatric: Mood and Affect: Mood normal. Behavior: Behavior normal. Labs: Lab Results Component Value Date WBC 5.97 01/21/2024 HGB 14.6 01/21/2024 HCT 46.2 (H) 01/21/2024 MCV 98.1 (H) 01/21/2024 PLATELET 226 01/21/2024 Lab Results Component Value Date NEUTROABS 3.68 01/21/2024 Lab Results Component Value Date NA 143 01/21/2024 K 4.3 01/21/2024 CL 109 (H) 01/21/2024 CO2 23 01/21/2024 BUN 29 (H) 01/21/2024 CREATININE 1.03 01/21/2024 GLUCOSE 77 01/21/2024 CALCIUM 10.1 01/21/2024 ESTGFR 67 01/21/2024 Lab Results Component Value Date ALT 25 01/21/2024 AST 23 01/21/2024 ALKPHOS 82 01/21/2024 BILITOT 0.2 01/21/2024 BILIDIR <0.1 09/26/2022 ALBUMIN 4.1 01/21/2024 PROT 6.8 01/21/2024 Pathology: Biopsy - Pathology : Component Ref Range & Units Case Report Surgical Pathology Report Case: [id number] Authorizing Provider: Mario Lee MD Collected: 01/14/2024 1330 Ordering Location: Laboratory Received: 01/14/2024 1727 Pathologist: Tati Wilkins DO Specimen: Breast, Left, Left Breast Mass Final Diagnosis Left breast, core needle biopsy: - Invasive ductal carcinoma, low grade (modified SBR score = 5), measuring at least 6 mm. - Lymphovascular invasion absent. 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 - Studies for ER, ME, and HER2 have been ordered; results will be issued in an addendum. at 1120 Addendum 2 SPECIAL TEST PERFORMED: Test: Oncotype DX [facility] Case: [id number] Performing Lab: [facility] Performing Lab Case: [id number] Reported by Owen Barbour M.D. Date reported: 02/24/2024 For the full text of the [facility] report(s), please refer to the Chart Review Media tab in the electronic health record (eDH). Addendum electronically signed by Tati Wilkins DO on 03/01/2024 at 1332 Addendum Immunohistochemistry Studies (A1) Estrogen Receptor (ER) immunoreactivity: Positive Cancer cells with immunostaining: >90% Stain intensity: Moderate Progesterone Receptor (ME) immunoreactivity: Positive Cancer cells with immunostaining: >90% Stain intensity: Strong HER2 FISH: separate report to follow Component Indication for Study Specimen Tissue Case/Block ID [id number] A1-6 HER2 FISH Final Report Method Fluorescence in situ hybridization (FISH) with chromosome 17 centromere (17p11.1-q11.1) probe and alocus specific probe for the HER2 gene locus (17q11.2-q12). HER2/CHRISTOFER FISH Results Negative Total # signals/Total # nuclei counted for HER2 probe 145 Total # Signals/Total # Nuclei counted for CEP-17 probe 81 HER2 to CEP-17 Ratio (Normal Range <2.0) 1.8 Total # Nuclei Counted 40 Average # HER2 Signals/Cell 3.6 Surgical Pathology s/p definitive breast surgery: Synoptic Report INVASIVE CARCINOMA OF THE BREAST: Resection 8th Edition - Protocol posted: 04/15/2023INVASIVE CARCINOMA OF THE BREAST: RESECTION - B, C SPECIMEN Procedure Excision (less than total mastectomy) Specimen Laterality Left TUMOR Tumor Site Lesion 1 Histologic Type Invasive carcinoma of no special type (ductal) Histologic Grade (Dyana Histologic Score) Glandular (Acinar) / Tubular Differentiation Score 2 Nuclear Pleomorphism Score 2 Mitotic Rate Score 1 Overall Grade Grade 1 (scores of 3, 4 or 5) Tumor Size Greatest dimension of largest invasive focus (Millimeters): 9 mm Tumor Focality Single focus of invasive carcinoma Ductal Carcinoma In Situ (DCIS) Present Negative for extensive intraductal component (EIC) Architectural Patterns Cribriform Solid Nuclear Grade Grade II (intermediate) Necrosis Not identified Lymphatic and / or Vascular Invasion Not identified Treatment Effect in the Breast No known presurgical therapy MARGINS Margin Status for Invasive Carcinoma Invasive carcinoma present at margin Margin(s) Involved by Invasive Carcinoma Posterior: in specimen B Lateral: in specimen B Distance from Invasive Carcinoma to Anterior Margin 4 mm Distance from Invasive Carcinoma to Superior Margin Greater than: 5 mm Distance from Invasive Carcinoma to Inferior Margin Greater than: 5 mm Distance from Invasive Carcinoma to Medial Margin Greater than: 5 mm Margin Status for DCIS DCIS present at margin Margin(s) Involved by DCIS Lateral REGIONAL LYMPH NODES Regional Lymph Node Status All regional lymph nodes negative for tumor Total Number of Lymph Nodes Examined (sentinel and non-sentinel) 2 Number of Elba Nodes Examined 2 pTNM CLASSIFICATION (AJCC 8th Edition) Reporting of pT, pN, and (when applicable) pM categories is based on information available to the pathologist at the time the report is issued. As per the AJCC (Chapter 1, 8th Ed.) it is the managingphysician???s responsibility to establish the final pathologic stage based upon all pertinent information, including but potentially not limited to this pathology report. pT Category pT1b pN Category pN0 N Suffix (sn) . Clinical Information A. Breast, Left, left partial breast mastectomy *Other - as specified in Clinical Information Left partial breast mastectomy Clin info-breast cancer B. Breast, Left, left breast tissue lesion 1 *Other - as specified in Clinical Information left breast tissue lesion 1 Clin info-Breast cancer C. Elba Lymph Node, Left [place]ba Node *Other - as specified in Clinical Information Left [place] Node Gross Description A. Breast, Left, left partial breast mastectomy. A - Labeled/Fixative: Left partial breast mastectomy, fresh. Quantity/Size/Weight: Single, 4.5 x 4.3 x 1.3 cm ,9 g. SPECIMEN DESCRIPTION Resection Specimen: Intact, partial mastectomy. Specimen radiograph: Coiled clip identified on radiograph. Specimen Description: According to the established protocol the ink designations are red (medial), yellow (lateral), orange (superior), green (inferior), black (posterior) and blue (anterior). Tissue Sections: The specimen is serially sectioned perpendicular to the long axis from medial-red to lateral-yellow into VII slices, each averaging 0.3 cm in thickness. LESION Description: 0.8 x 0.7 x 0.5 cm, ruiz-brown to white, firm, mass, with circumscribed borders. Location: Slice 3 and slice 4. Nearest Margin(s): 0.2 cm, posterior-black. Other Margin(s): 0.8 cm, superior-orange. Other Margin(s): 0.9 cm, medial-red. Other Margin(s): 0.9 cm, lateral-yellow. Other Margin(s): 1.0 cm, anterior-blue. Other Margin(s): 1.6 cm, inferior-green. Wire/clip: Slice #4, within the mass Parenchyma: Yellow lobulated adipose tissue with a scant amount of intermixed ruiz-white fibrous tissue comprising less than 10% of the entire specimen Sections/Processing: Inked, serially sectioned and entirely submitted in 12 cassettes as follows: A1: Perpendicular sections of the medial margin A2-A3: Bisected slice #2 A4-A5: Bisected slice #3 to include new accounts representative mass in block A5 A6-A7: Bisected slice #4 to include new accounts representative mass and the site containing the biopsy clip A8-A9: Bisected slice #5 A10-A11: Bisected slice #6 A12: Perpendicular sections of the lateral margin B. Breast, Left, left breast tissue lesion 1. B - Labeled/Fixative: Breast, left, breast tissue lesion #1, fresh. Quantity/Size/Weight: Single, 3.5 x 3.3 x 1.7 cm ,8 g. SPECIMEN DESCRIPTION Resection Specimen: Intact, partial mastectomy. Specimen radiograph: Coiled clip identified on radiograph. Specimen Description: According to the established protocol the ink designations are red (medial), yellow (lateral), orange (superior), green (inferior), black (posterior) and blue (anterior). Tissue Sections: The specimen is serially sectioned perpendicular to the long axis from medial-red to lateral-yellow into slices, each averaging 0.3 cm in thickness. LESION Description: 0.7 x 0.6 x 0.5 cm, ruiz-white, firm, mass, with circumscribed borders. Location: Slice #4 and slice #5. Nearest Margin(s): 0.2 cm, posterior-black. Other Margin(s): 0.3 cm, lateral-yellow. Other Margin(s): 0.7 cm, medial-red. Other Margin(s): 0.1 cm, inferior-green. Other Margin(s): 0.8 cm, anterior-blue. Other Margin(s): 1.3 cm, superior-orange. Wire/clip: Slice #5 within the mass Parenchyma: Yellow lobulated adipose tissue with a minimal amount of intermixed ruiz-white fibrous tissue comprising approximately 10% of the entire specimen Sections/Processing: Inked, serially sectioned and entirely submitted in 9 cassettes as follows: B1: Perpendicular sections of the medial margin B2: Slice #2 B3-B4: Bisected slice #3 B5-B6: Bisected slice #4 to include new accounts representative mass B7-B8: Bisected slice #5 to include new accounts representative mass and the site containing the biopsy clip B9: Perpendicular sections of the lateral margin C. Elba Lymph Node, Left Elba Node. C - Labeled/Fixative: Elba lymph node, left, fresh. Quantity/Size: Two, 0.5 x 0.4 x 0.4 cm and 0.7 x 0.4 x 0.3 cm. Tissue Description: Adipose tissue with two, up to 0.7 x 0.4 x 0.3 cm. Sections/Processing: Entirely submitted in 2 cassettes as follows: C1: Smaller bisected candidate lymph node C2: Larger bisected candidate lymph node CAK Result Note Routine Resulting Agency [facility] Specimen Collected: 02/05/24 14:03 Last Resulted: 02/18/24 11:55 Status: Final result Visible to patient: Yes (not seen) Next appt: Today at 02:00 PM in Hematology and Oncology (Miryam Feliciano MD) 0 Result Notes Component Ref Range & Units Case Report Surgical Pathology Report Case: [id number] Authorizing Provider: Hailey Dawson MD Collected: 02/29/2024 0196 [facility] Received: 02/29/2024 1538 [facility] Pathologist: Sil Maguire MD Specimens: A) - Breast, Left, Left breast partial mastectomy lesion 3 B) - Breast, Left, Margin, Lateral Margin of Left Breast Lesion 1 C) - Breast, Left, Margin, Posterior Margin of Left Breast Lesion 1 Final Diagnosis A. Breast, Left, Partial Mastectomy: [...] florid usual ductal hyperplasia, negative for malignancy. at 1606 Additional Studies Task ID IHC/Special Stains Result A2-2 Calponin Positive A5-2 Calponin Positive A10-2 Calponin Positive A13-2 Calponin Positive A14-2 Calponin Positive A15-2 Calponin Positive B3-2 p63 Positive B3-3 Calponin Positive C2-2 CK5 Positive in area of interest C2-3 ER (Clone SP1) Patchy positive in area of interest Disclaimer(s) Formalin-fixed, paraffin-embedded tissue sections are studied [...] morphology, histopathological criteria and other diagnostic tests. Clinical Information A. Breast, Left, Left breast partial mastectomy lesion 3 Known malignancy - as specified in Clinical Information BREAST CANCER Left breast partial mastectomy lesion 3 Gross Description A. Breast, Left, Left breast [...] inked margin C3: Additional separate fragmented tissue Result Note Routine Resulting Agency [facility] Specimen Collected: 02/29/24 15:16 Last Resulted: 03/15/24 16:06 Breast Imaging: Screening mammogram: Details Reading Physician Reading Date Result Priority Mario Lee MD [phone] 2753 01/14/2024 Routine Narrative & Impression EXAMINATION: MG Mammo Digital Screening Bilateral. REASON [...] heterogeneously dense, which may obscure small masses. IMPRESSION BI-RADS Category 0: Incomplete - Need Additional Imaging Evaluation RECOMMENDATION: Recall for additional imaging and/or comparison with prior examination(s) * Regular screening mammograms starting at age 40 reduce the risk of from breast cancer. * Individuals should discuss the risks and benefits with their provider to determine their preferred breast cancer screening schedule, and at what age screening should stop. * Individuals should report any breast changes to a health care provider right away. * Some Individuals, because of their family history, a genetic tendency, or other factors, should consider being screened with annual breast MRI as well as with mammograms. * Screening mammography may not detect 10-15% of?breast cancers. Thank you for letting us participate in the care of this patient. If you are a health care provider and have any questions regarding this report, please contact the number below. For patients who have questions please contact the health neonatal critical care nurse that requested your imaging first. [address] [place] [id number] Component 2 mo ago PT CLASS O ADMITDTTM [id number] PT INFO [id number]^Steward^Haylie EXAM DESC [facility]^MG Mammo Digital Screening Bilateral.^RIS WORKSTATION ID [id number] Resulting Agency [facility] Exam Ended: 01/14/24 08:39 Last Resulted: 01/14/24 11:24 Details Reading Physician Reading Date Result Priority Mario Lee MD [phone] 01/14/2024 Routine Narrative & Impression EXAMINATION: US Breast Limited Left. CLINICAL HISTORY: Left breast- 7 o'clock 3 cmm fn 13 mm FA with arc dist TECHNIQUE AND VIEWS OBTAINED: Full field ML, compression CC and MLO views were obtained of the LEFT breast. 2D and 3D tomosynthesis images were obtained. Computer Assisted Detection was used. Diagnostic ultrasound followed. COMPARISON: Prior images BREAST DENSITY: FINDINGS: Diagnostic mammogram: 15 mm spiculated mass in the left breast at 7 o'clock 4 cm from the nipple. Diagnostic ultrasound: Spiculated hypoechoic mass, 12 mm in greatest dimension containing central calcifications at 7 o'clock 4 cm from the nipple. IMPRESSION Suspicious breast mass FINAL ASSESSMENT: BI-RADS Category 4c: Suspicious Finding - Biopsy Should Be Considered. High suspicion of malignancy (more than 50% but no more than 95%) RECOMMENDATION: Tissue diagnosis Thank you for letting us participate in the care of this patient. If you are a health care provider and have any questions regarding this report, please contact the number below. For patients who have questions please contact the health neonatal critical care nurse that requested your imaging first. Component 2 mo ago PT CLASS O ADMITDTTM [phone] PT INFO [phone]^Jesus^Mario EXAM DESC [facility]^US Breast Limited Left.^RIS WORKSTATION ID [id number] Resulting Agency [facility] Exam Ended: 01/14/24 13:23 Last Resulted: 01/14/24 14:17 Diagnostic mammogram and U/S: MRI breast: Details Reading Physician Reading Date Result Priority Malgorzata De aSntiago MD [phone] 01/21/2024 Narrative & Impression EXAMINATION: MRI BREAST WWO CONTRAST BILAT CLINICAL INDICATION: 48 year-old with recently diagnosed left breast cancer based on biopsy of screen detected mass. Staging TECHNIQUE: Multiplanar sequences were obtained pre- and post- Dotarem enhancement, to include SPGR weighted dynamic run-off and subtraction sequences obtained after the intravenous administration of 12 ccs of Dotarem. Computer algorithm analysis for lesion detection and kinetic contrast enhancement curve analysis was performed, using [employer] software. COMPARISON STUDIES: Compared and/or correlated with prior studies including recent mammography and ultrasound. FINDINGS: Background Enhancement Pattern (first post Dotarem image): Marked (>75% breast) Amount of Fibroglandular Tissue: The breast tissue is heterogeneously dense, which may obscure small masses. LEFT Breast: Evaluation for small masses is limited due to marked background parenchymal enhancement in the form of scattered foci with some areas more confluent than others. 1. In the inferior, slightly medial breast, anterior to mid depth, there is an approximately 15 x 14 x 11 mm spiculated, homogeneously enhancing mass with biopsy clip artifact, corresponding to the biopsy-proven malignancy (postcontrast axial series image 95, sagittal series image 54). It shows persistent kinetics. 2. Inferior and slightly lateral to the known malignancy, at mid depth, there is an oblong, partially circumscribed heterogeneously enhancing mass measuring about 14 x 15 mm, with persistent kinetics (axial series image 109, sagittal series image 52). 3. In the upper, slightly lateral breast at anterior depth, there is a confluent area of focal, heterogeneous nonmass enhancement measuring approximately 11 x 7 mm (axial series image 73). On the delayed sagittal image this has the appearance of a mass (sagittal series image 48). Associated persistent kinetics noted. RIGHT Breast: Evaluation for small masses is limited due to marked background parenchymal enhancement in the form of scattered foci with some areas more confluent than others. No dominant or suspicious mass or nonmass enhancement is seen. A subcentimeter, circumscribed, rim-enhancing mass with internal precontrast T1 signal is seen on axial images 90 and sagittal image 157. This is consistent with a cyst with proteinaceous contents. Other scattered cysts are seen on the T2-weighted series. Lymph Node Basins/Other: There is no evidence of internal mammary or axillary adenopathy. However, a small group of 3 left low axillary lymph nodes may be better evaluated with ultrasound. No significant abnormalities are seen in the chest wall or skin. IMPRESSION LEFT BREAST: Biopsy-proven malignancy in the lower inner quadrant, anterior to mid depth measuring about 1.5 cm. 2. Areas of more confluent nonmass enhancement and possible mass as described above (#2 and #3) while these areas likely represent background parenchymal enhancement, further evaluation with ultrasound is recommended. If the ultrasound is negative, MRI guided biopsy may be suggested. RIGHT BREAST: Exam limited by marked background parenchymal enhancement without focal suspicious findings. RECOMMENDATION: MRI directed ultrasound of the left breast as described above. If ultrasound is negative, MR guided biopsy may be recommended. Ultrasound evaluation of left-sided low axillary lymph nodes. FINAL ASSESSMENT: LEFT BREAST: BI-RADS Category 4b: Suspicious Finding - Biopsy Should Be Considered. Moderate suspicion of malignancy (more than 10% but no more than 50%) RIGHT BREAST: BI-RADS Category 2: Benign Thank you for letting us participate in the care of this patient. If you are a health care provider and have any questions regarding this report, please contact the number below. For patients who have questions please contact the health neonatal critical care nurse that requested your imaging first. Electronically signed by: Malgorzata De Santiago [facility] ([phone]), at 01/21/2024 3:42 PM Component 2 mo ago WORKSTATION ID [id number] Resulting Agency [facility] Exam Ended: 01/21/24 11:05 Last Resulted: 01/21/24 15:42 Narrative & Impression EXAMINATION: US BREAST LIMITED LEFT CLINICAL HISTORY: abnormal finding Call [...] Associated vascularity is identified. Recommend ultrasound-guided biopsy. IMPRESSION Sonographic correlates for breast MRI lesions #2 and #3 identified above. RECOMMENDATION: Recommend ultrasound-guided biopsy of lesion #2 and lesion #3 FINAL ASSESSMENT: BI-RADS Category 4b: Suspicious Finding - Biopsy Should Be Considered. Moderate suspicion of malignancy (more than 10% but no more than 50%) Thank you for letting us participate in the care of this patient. If you are a health care provider and have any questions regarding this report, please contact the number below. For patients who have questions please contact the health neonatal critical care nurse that requested your imaging first. Electronically signed by: Aleida Bolanos MD, [facility] ([phone]), at 01/25/2024 2:52 PM Component 2 mo ago WORKSTATION ID [id number] Resulting Agency Rad Exam Ended: 01/25/24 13:45 Last Resulted: 01/25/24 14:52 Annual mammogram: Ordered per surgery Imaging: DEXA scan: Ordered and pending Total time spent: 100 minutes with > 50% spend in discussion of above, [id number] time and coordination of care with the patient today Perla Feliciano MD Medical Oncology [facility] Distribution TechEnvironmental Engineer, [facility] [employer] Office Cancer.[facility] documented in this encounter Plan of Treatment Upcoming Encounters Date Type Department Care Team (Latest Contact Info) Description 04/22/2024 9:45 AM EST Scheduled View Only Radiation Oncology at [address] [phone] 04/25/2024 8:30 AM EST Scheduled View Only Radiation Oncology at [address] [phone] 04/26/2024 3:00 PM EST Scheduled View Only Radiation Oncology at [address] [phone] 04/26/2024 3:30 PM EST Office Visit Radiation Oncology at [address] [phone] Ofe Fonseca MD [facility] [place] [address] 04/28/2024 2:45 PM EST Scheduled View Only Radiation Oncology at [address] [phone] 04/29/2024 3:00 PM EST Scheduled View Only Radiation Oncology at [address] [phone] 05/02/2024 3:45 PM EST Scheduled View Only Radiation Oncology at [address] [phone] 05/03/2024 1:45 PM EST Scheduled View Only Radiation Oncology at [address] [phone] 05/03/2024 2:15 PM EST Office Visit Radiation Oncology at [address] [phone] Ofe Fonseca MD [facility] [place] [address] 05/05/2024 8:15 AM EST Scheduled View Only Radiation Oncology at [address] [phone] 05/06/2024 12:30 PM EST Scheduled View Only Radiation Oncology at [address] [phone] 05/09/2024 3:00 PM EST Scheduled View Only Radiation Oncology at [address] [phone] 05/10/2024 2:30 PM EST Scheduled View Only Radiation Oncology at [address] [phone] 05/10/2024 3:15 PM EST Office Visit Radiation Oncology at [address] [phone] Ofe Fonseca MD [facility] [address] [place] [address] 05/11/2024 2:45 PM EST Scheduled View Only Radiation Oncology at [address] [address] 06/03/2024 3:30 PM EST Appointment Ultrasound at [address] Mira Hutchison [facility] [place] [address] 06/23/2024 4:00 PM EST Appointment Mammography/[place] [address] Miryam Feliciano MD [facility] [place] [address] 07/12/2024 8:00 AM EDT Laboratory Appointment Lab [address] [place] [address] 07/12/2024 9:30 AM EDT Office Visit Neph[place] [address] Sharmin Jean-Baptiste [facility] [place] [address] 07/13/2024 10:30 AM EDT Laboratory Appointment Lab at [facility] Hematology Oncology [address] [place], [place] [phone] 07/13/2024 11:30 AM EDT Office Visit Hematology and Oncology at [place] [phone] Salena Alvares [facility] [place] [address] 07/13/2024 12:45 PM EDT Appointment Hematology and Oncology at [place] [phone] Scheduled Orders Name Type Priority Associated Diagnoses Orde r Schedule Estradiol Lab Routine Malignant neoplasm of lower-inner quadrant of left breast in female, estrogen receptor positive Every 12 Weeks for 4 Occurrences starting 04/14/2024 until 04/14/2025 Follicle Stimulating Hormone Lab Routine Malignant neoplasm of lower-inner quadrant of left breast in female, estrogen receptor positive Every 12 Weeks for 4 Occurrences starting 04/14/2024 until 04/14/2025 DXA Central Spine, Hip, and/or Whole Body (Generic) Imaging Routine Malignant neoplasm of lower-inner quadrant of left breast in female, estrogen receptor positive Aromatase inhibitor use Expected: 05/16/2024 (Approximate), Expires: 04/15/2026 Estradiol Lab Routine Malignant neoplasm of lower-inner quadrant of left breast in female, estrogen receptor positive Expected: 04/29/2024 (Approximate), Expires: 10/29/2024 Follicle Stimulating Hormone Lab Routine Malignant neoplasm of lower-inner quadrant of left breast in female, estrogen receptor positive Expected: 04/29/2024 (Approximate), Expires: 10/29/2024 documented as of this encounter Visit Diagnoses Diagnosis Malignant neoplasm of lower-inner quadrant of left breast in female, estrogen receptor positive Aromatase inhibitor use Use of aromatase inhibitors Medication management Encounter for long-term (current) use of other medications documented in this encounter Care Teams [employer] Manager Relationship Specialty Start Date [place] [address] PCP - General General Internal Medicine 08/04/22 documented as of this encounter
--- OUTSIDE RECORDS SUMMARY | 2024-04-22 00:19 | XMS_ITS | Encounter Summary ---
Author [facility] [place] [address] Care Team Providers Care Accountant Controller Name Role Phone Haylie Steward MD Primary Care Provider [phone] Reason for Referral * Consultation (Routine) - Closed Specialty Diagnoses / Procedures Referred By Contac t Referred To Contact Radiation Oncology Diagnoses Malignant neoplasm of lower-inner quadrant of left breast in female, estrogen receptor positive Procedures Simulation for Radiation Therapy Planning Ofe Fonseca MD [facility] [place] [address] [facility] Rad Onc Office [address] [place] [phone] Referral ID Status Reason Start Date Expiration Date V isits Requested Visits Authorized [id number] Closed Consult, Test & Treat 03/22/2024 05/03/2024 6 6 Encounter Details Date Type Department Care Team (Late st Contact Info) Description 03/22/2024 Orders Only Radiation [place] [address] Ofe Fonseca MD [facility] [place] [address] Malignant neoplasm of lower-inner quadrant of left [...] from your doctor or pharmacy? Rarely 02/15/2024 [facility] Utilities Answer Date Recorded In [...] any time in the past 12 [address] [place], were you homeless or living in a [...] EST Scheduled View Only Radiation Oncology at [address] [phone] 04/25/2024 8:30 AM EST Scheduled View Only Radiation Oncology at [address] [phone] 04/26/2024 3:00 PM EST Scheduled View Only Radiation Oncology at [address] [phone] 04/26/2024 3:30 PM EST Office Visit Radiation Oncology at [address] [phone] Ofe Fonseca MD [facility] [place] [address] 04/28/2024 2:45 PM EST Scheduled View Only Radiation Oncology at [address] [phone] 04/29/2024 3:00 PM EST Scheduled View Only Radiation Oncology at [address] [address] 05/02/2024 3:45 PM EST Scheduled View Only Radiation Oncology at [address] [address] 05/03/2024 1:45 PM EST Scheduled View Only Radiation Oncology at [address] [phone] 05/03/2024 2:15 PM EST Office Visit Radiation Oncology at [address] [phone] Ofe Fonseca MD [facility] [place] [place] [address] 05/05/2024 8:15 AM EST Scheduled View Only Radiation Oncology at [address] [phone] 05/06/2024 12:30 PM EST Scheduled View Only Radiation Oncology at [address] [address] 05/09/2024 3:00 PM EST Scheduled View Only Radiation Oncology at [address] [phone] 05/10/2024 2:30 PM EST Scheduled View Only Radiation Oncology at [address] [phone] 05/10/2024 3:15 PM EST Office Visit Radiation Oncology at [address] [phone] Ofe Fonseca MD [facility] [place] [address] 05/11/2024 2:45 PM EST Scheduled View Only Radiation Oncology at [address] [phone] 06/03/2024 3:30 PM EST Appointment Ultrasound at [place] [phone] Mira Hutchison APRN [facility] [place] [address] 06/23/2024 4:00 PM EST Appointment Mammography/[place] [address] Miryam Feliciano MD [facility] [place] [address] 07/12/2024 8:00 AM EDT Laboratory Appointment Lab [address] [place] [phone] 07/12/2024 9:30 AM EDT Office Visit Nephrology Hypertension at [place] [address] Sharmin Jean-Baptiste, [facility] [place] [address] 07/13/2024 10:30 AM EDT Laboratory Appointment Lab at [facility] Hematology Oncology [address] [place], [place] [phone] 07/13/2024 11:30 AM EDT Office Visit Hematology [place] [address] Slaena Alvares, [facility] [place] [address] 07/13/2024 12:45 PM EDT Appointment Hematology and Oncology at [place] [address] Scheduled Orders Name Type Priority Associated Diagnoses Orde r Schedule Simulation for Radiation Therapy Planning Radiation Oncology Routine Malignant neoplasm of lower-inner quadrant of left breast in female, estrogen receptor positive Expected: 03/22/2024, Expires: 09/21/2024 documented as of this encounter Visit Diagnoses Diagnosis Malignant neoplasm of lower-inner quadrant of left breast in female, estrogen receptor positive documented in this encounter Care Teams Accountant Controller Relationship Specialty Start Date End [place] [address] PCP - General General Internal Medicine 08/04/22 documented as of this encounter
--- OUTSIDE RECORDS SUMMARY | 2024-04-22 00:19 | XMS_ITS | Encounter Summary ---
Author Organization Formerly [facility] [place] [address] Care Team Providers Care Squeegeer And Former Name Role Phone Haylie Steward MD Primary Care Provider + [phone] Encounter Details Date Type Department Care Team (Late st Contact Info) Description 04/15/2024 Orders Only [place] [phone] Salena Alvares APRN [facility] [place] [address] Social History Tobacco Use Types Packs/Day Years [...] from your doctor or pharmacy? Rarely 02/15/2024 [facility] Utilities Answer Date Recorded In the past 12 months has [employer] electric, gas, oil, or water company threatened [...] the money to buy more. Never true 10/14/20 24 Within the past 12 months, t [...] any time in the past 12 m [facility], were you homeless or living in a [...] EST Scheduled View Only Radiation Oncology at [address] [phone] 04/25/2024 8:30 AM EST Scheduled View Only Radiation Oncology at [address] [phone] 04/26/2024 3:00 PM EST Scheduled View Only Radiation Oncology at [address] [phone] 04/26/2024 3:30 PM EST Office Visit Radiation Oncology at [address] [address] [facility] RADIATION [place] [address] 04/28/2024 2:45 PM EST Scheduled View Only Radiation Oncology at [address] [phone] 04/29/2024 3:00 PM EST Scheduled View Only Radiation Oncology at [address] [address] 05/02/2024 3:45 PM EST Scheduled View Only Radiation Oncology at [address] [address] 05/03/2024 1:45 PM EST Scheduled View Only Radiation Oncology at [address] [phone] 05/03/2024 2:15 PM EST Office Visit Radiation Oncology at [address] [phone] [facility] [place] [address] 05/05/2024 8:15 AM EST Scheduled View Only Radiation Oncology at [address] [address] 05/06/2024 12:30 PM EST Scheduled View Only Radiation Oncology at [address] [address] 05/09/2024 3:00 PM EST Scheduled View Only Radiation Oncology at [address] [address] 05/10/2024 2:30 PM EST Scheduled View Only Radiation Oncology at [address] [address] 05/10/2024 3:15 PM EST Office Visit Radiation Oncology at [address] [phone] [facility] [place] [address] 05/11/2024 2:45 PM EST Scheduled View Only Radiation Oncology at [address] [address] 06/03/2024 3:30 PM EST Appointment Ultrasound at [place] [phone] Mira Hutchison [facility] [address] 06/23/2024 4:00 PM EST Appointment Mammography/DXA at [place] [phone] [facility] [place] [address] 07/12/2024 8:00 AM EDT Laboratory Appointment Lab [address] [place], [place] [phone] 07/12/2024 9:30 AM EDT Office Visit Nephrology Hypertension at [place] [phone] Sharmin Jean-Baptiste MANAGER OF PROJECT MANAGEMENT [facility] [place] [address] 07/13/2024 10:30 AM EDT Laboratory Appointment Lab at [facility] Hematology Oncology [address] [place] [phone] 07/13/2024 11:30 AM EDT Office Visit Hematology [place] [phone] [address] [facility] [place] [address] 07/13/2024 12:45 PM EDT Appointment Hematology [place] [phone] documented as of this encounter Visit Diagnoses Not on filedocumented in this encounter Care Teams Squeegeer And Former Relationship Specialty Start Date [place] [address] PCP - General General Internal Medicine 08/04/22 documented as of this encounter
--- OUTSIDE RECORDS SUMMARY | 2024-04-22 00:19 | XMS_ITS | Encounter Summary ---
Author Organization [facility] [place] [address] Care Team Providers Care Rn Observation Name Role Phone Haylie Steward MD Primary Care Provider + [phone] Encounter Details Date Type Department Care Team (Latest Contact Info) Description 04/11/2024 Travel Social History Tobacco Use Types Packs/Day [...] doctor or pharmacy? Rarely 02/15/2024 [facility] Utilities Answer Date Recorded In the past [...] EST Scheduled View Only Radiation Oncology at [address] [phone] 04/25/2024 8:30 AM EST Scheduled View Only Radiation Oncology at [address] [phone] 04/26/2024 3:00 PM EST Scheduled View Only Radiation Oncology at [address] [phone] 04/26/2024 3:30 PM EST Office Visit Radiation Oncology at [address] [phone] Ofe Fonseca MD [facility] [place] [address] 04/28/2024 2:45 PM EST Scheduled View Only Radiation Oncology at [address] [address] 04/29/2024 3:00 PM EST Scheduled View Only Radiation Oncology at [address] [address] 05/02/2024 3:45 PM EST Scheduled View Only Radiation Oncology at [address] [address] 05/03/2024 1:45 PM EST Scheduled View Only Radiation Oncology at [address] [phone] 05/03/2024 2:15 PM EST Office Visit Radiation Oncology at [address] [phone] Ofe Fonseca MD [facility] [place] [address] 05/05/2024 8:15 AM EST Scheduled View Only Radiation Oncology at [address] [address] 05/06/2024 12:30 PM EST Scheduled View Only Radiation Oncology at [address] [address] 05/09/2024 3:00 PM EST Scheduled View Only Radiation Oncology at [address] [address] 05/10/2024 2:30 PM EST Scheduled View Only Radiation Oncology at [address] [address] 05/10/2024 3:15 PM EST Office Visit Radiation Oncology at [address] [phone] Ofe Fonseca MD [facility] [place] [address] 05/11/2024 2:45 PM EST Scheduled View Only Radiation Oncology at [address] [address] 06/03/2024 3:30 PM EST Appointment Ultrasound at [place] [phone] Mira Hutchison [facility] [address] 06/23/2024 4:00 PM EST Appointment Mammography/DXA at [place] [phone] Miryam Feliciano MD [facility] [place] [address] 07/12/2024 8:00 AM EDT Laboratory Appointment Lab [address] [place], [place] [phone] 07/12/2024 9:30 AM EDT Office Visit Nephrology Hypertension at [place] [phone] Sharmin Jean-Baptiste, [facility] [place] [address] 07/13/2024 10:30 AM EDT Laboratory Appointment Lab at [facility] Hematology Oncology [address] [place] [phone] 07/13/2024 11:30 AM EDT Office Visit Hematology [place] [phone] Salena Alvares, [facility] [place] [address] 07/13/2024 12:45 PM EDT Appointment Hematology and Oncology at [place] [phone] documented as of this encounter Visit Diagnoses Not on filedocumented in this encounter Care Teams Rn Observation Relationship Specialty Start Date End Date Haylie Steward MD [facility] [place] [address] PCP - General General Internal Medicine 08/04/22 documented as of this encounter
--- OUTSIDE RECORDS SUMMARY | 2024-04-22 00:19 | XMS_ITS | Encounter Summary ---
Author Organization [facility] [place] [address] Care Team Providers Care Director Consumer Affairs Name Role Phone Haylie Steward MD Primary Care Provider [phone] Reason for Visit * Consultation (Routine) - Closed Specialty Diagnoses / Procedures Referred By Contac t Referred To Contact Radiation Oncology Diagnoses Malignant neoplasm of lower-inner quadrant of left breast in female, estrogen receptor positive Procedures Simulation for Radiation Therapy Planning Ofe Fonseca MD [facility] [place] [address] [facility] Rad Onc Office [address] [place] [phone] Referral ID Status Reason Start Date Expiration Date V isits Requested Visits Authorized [id number] Closed Consult, Test & Treat 02/22/2024 02/21/2025 1 1 Encounter Details Date Type Department Care Team (Latest Contact Info) Description 03/22/2024 12:30 PM EST Ancillary Appointment Radiation Oncology at [address] [phone] Ofe Fonseca MD [facility] [place] [address] Malignant neoplasm of lower-inner quadrant of left [...] from your doctor or pharmacy? Rarely 02/15/2024 [facility] Utilities Answer Date Recorded In the [...] any time in the past 12 m [facility], were you homeless or living in [...] PM EDT documented as of this encounter Patient Instructions * Patient Instructions* Mell Blum RN - 03/22/2024 12:30 PM EST Information for Patients receiving radiation therapy to the Breast Approximately two weeks after your first treatment, you may begin to experience side effects causedby the radiation. These effects may continue throughout the treatment period and not start improving until 1-2 weeks after treatment is completed. Your doctor will tell you which side effects you aremost likely to experience, when you will notice them and how long they might last. It is important to follow the appropriate instructions to minimize your discomfort. Skin Care Wash skin in the treatment field with lukewarm water and mild or moisturizing, unscented soap daily. Blot skin dry with a soft towel. Do not apply any ointment, salve, deodorant, perfume, cologne, cosmetic or self- remedy to the treatment area while you are undergoing radiation and for 1-2 weeks following treatment. An all natural deodorant with no aluminum can be used if necessary. Moisturizing cream will be provided for you. This may be used in the treatment area once daily beginning on your first treatment day. Do not apply 2 hours before your radiation treatments. As dryness/redness develop you can use this more often. Do not rub or scratch the skin in the treatment field. This includes shaving unless you use an electric razor. If your skin becomes dry or itchy, tell your nurse or doctor. If necessary, your doctor may order a medication specifically for this problem. Do not use hot water bottles, heating lights, electric heating pads, or hot packs to the treatment area. Keep treated areas out of the sun throughout the treatment period. Be careful of sun exposure to the treatment field for one year following treatment. Please use SPF> 30 to all exposed areas of skin and limit sun exposure. Avoid tight fitting clothes. Examine your skin in the treatment area daily and watch for changes. If you cannot reach the whole treatment field ask a family member to look at it and apply cream as needed. Be careful to keep the area under your breast clean and dry as this area can get irritated first. You will meet with your nurse and doctor weekly, typically on Thursday following radiation treatment. They will check your skin and help you with any side effects you are having. Please ask to see thenurse if you have concerns in between these days. During the last weeks of treatment you may notice some peeling of skin and/or a moist reaction. Be sure to let us know if this happens so we can provide you with further skin care instructions.. Continue to stay active, walk daily, eat healthy foods and drink several glasses of water each day. Fatigue You may notice that you feel unusually tired towards the end of treatment. This is not unusual. We recommend that you pace your activities and plan for rest periods to avoid becoming over-tired. Feel free to direct any questions or concerns you may have related to your treatment to your nurse or doctor. [facility] Radiation Oncology Our normal business hours are: Thursday - Thursday 8 AM to 5 PM [place], [place], [place] For emergent situations after hours please call for either location and ask for the Radiation Oncologist oncology physician. documented in this encounter Progress Notes * Mell Blum RN - 03/22/2024 12:30 PM EST Radiation Oncology Simulation Note Nataliya Morfin is here for radiation planning , undergoing a simulation to the left breast for breastcancer treatment . Usual radiation oncology routines and purpose of on treatment visits were explained. Remedy Moisturizing cream provided and instructions for use reviewed Anticipatory Guidance: Please see AVS Barriers to Treatment/ Compliance issues identified: Patient confirms they can have no difficulties lying flat. pre- medication plan made: OTC acetaminophen prn Referrals: [facility] per routine Answers submitted by the patient for this visit: (Submitted on 03/20/2024) Distress: 3 * Ofe Fonseca MD - 03/22/2024 12:30 PM EST Here for sim. 02/29/24 reexcision of L inframammary lumpectomy margins including fascia of pec major followed by supra-areolar incision to excise 3rd lesion & inferior margin of this lumpectomy noted to be superior margin of prior lumpectomy cavity, placement bx cavity clips, L breast partial recon. Path: Lumpectomy & reexcision of margins neg. S: No c/o. O: Ecchymosis central L breast. L inframammary incision 5-7:00 well healed. Periareolar L breast lumpectomy incision 11-2:00 healing well. A: Healed adequately for sim. Discussed possible partial breast xrt of 5 fxs targeting just L inframammary lumpectomy bed vs 20 fxs including whole L breast. P: Sim today. Sim: Breast bd immobilization; wire on L breast inframammary & suprareolar lumpectomy scars; flat bbs on L breast perimeter; CT through chest free breathing & then with deep inspiration breath hold (DIBH) angled & then also flat; VMAT aPBI vs 3D WBRT planned. She tolerated sim well, w/o problem. Tx Plan: VMAT aPBI vs 3D WBRT. Start xrt 1-[address] Jodie yepez for sytemic tx 04/07/24. documented in this encounter Plan of Treatment Upcoming Encounters Date Type Department Care Team (Latest Contact Info) Description 04/22/2024 9:45 AM EST Scheduled View Only Radiation Oncology at [address] [phone] 04/25/2024 8:30 AM EST Scheduled View Only Radiation Oncology at [address] [address] 04/26/2024 3:00 PM EST Scheduled View Only Radiation Oncology at [address] [address] 04/26/2024 3:30 PM EST Office Visit Radiation Oncology at [address] [phone] Ofe Fonseca MD [facility] [place] [address] 04/28/2024 2:45 PM EST Scheduled View Only Radiation Oncology at [address] [address] 04/29/2024 3:00 PM EST Scheduled View Only Radiation Oncology at [address] [address] 05/02/2024 3:45 PM EST Scheduled View Only Radiation Oncology at [address] [address] 05/03/2024 1:45 PM EST Scheduled View Only Radiation Oncology at [address] [address] 05/03/2024 2:15 PM EST Office Visit Radiation Oncology at [address] [address] Ofe Fonseca MD [facility] [place] [address] 05/05/2024 8:15 AM EST Scheduled View Only Radiation Oncology at [address] [address] 05/06/2024 12:30 PM EST Scheduled View Only Radiation Oncology at [address] [address] 05/09/2024 3:00 PM EST Scheduled View Only Radiation Oncology at [address] [address] 05/10/2024 2:30 PM EST Scheduled View Only Radiation Oncology at [address] [address] 05/10/2024 3:15 PM EST Office Visit Radiation Oncology at [address] [address] Ofe Fonseca MD [facility] [place] [address] 05/11/2024 2:45 PM EST Scheduled View Only Radiation Oncology at [address] [phone] 06/03/2024 3:30 PM EST Appointment Ultrasound at [place] [phone] Mira Hutchison, [facility] [place] [address] 06/23/2024 4:00 PM EST Appointment Mammography/DXA at [place] [phone] Miryam Feliciano MD [facility] [place] [address] 07/12/2024 8:00 AM EDT Laboratory Appointment Lab [address] [place], [place] [phone] 07/12/2024 9:30 AM EDT Office Visit Nephrology Hypertension at [place] [phone] Sharmin Jean-Baptiste [facility] [place] [address] 07/13/2024 10:30 AM EDT Laboratory Appointment Lab at [facility] Hematology Oncology [address] [place], [place] [phone] 07/13/2024 11:30 AM EDT Office Visit Hematology [place] [phone] Salena Alvares [facility] [place] [address] 07/13/2024 12:45 PM EDT Appointment Hematology and Oncology at [place] [phone] documented as of this encounter Visit Diagnoses Diagnosis Malignant neoplasm of lower-inner quadrant of left breast in female, estrogen receptor positive documented in this encounter Care Teams Director Consumer Affairs Relationship Specialty Start Date [place] [address] PCP - General General Internal Medicine 08/04/22 documented as of this encounter
--- OUTSIDE RECORDS SUMMARY | 2024-04-22 00:19 | XMS_ITS | Encounter Summary ---
[place] [address] Care Team Providers Care Train Dispatcher Name Role Phone Haylie Steward MD Primary Care Provider + [phone] Reason for Visit * Consultation (Routine) - Closed Specialty Diagnoses / Procedures Referred By Contac t Referred To Contact Urology Diagnoses Stress incontinence, female Sharmin Jean-Baptiste [facility] [place] [address] [facility] [place] [address] Referral ID Status Reason Start Date Expiration Date V isits Requested Visits Authorized [id number] Closed Consult, Test & Treat 04/11/2024 04/11/2025 1 1 Encounter Details Date Type Department Care Team (Late st Contact Info) Description 04/14/2024 9:20 AM EST Office [place] [address] Mira Rod [facility] [place] [address] Urinary retention Social History Tobacco Use Types Packs/Day Years [...] from your doctor or pharmacy? Rarely 02/15/2024 [facility] Utilities Answer Date Recorded In the past [...] in the past 12 m [facility], were you homeless or living in a [facility] (including now)? No 02/15/2024 IPV Inpatient Questions Answer Date Recorded Does [...] Sign Reading Time Taken Comments Blood Pressure 150/72 04/14/2024 9:22 AM EST Pulse 70 04/14/2024 9:22 AM EST Temperature - - Respiratory Rate - - Oxygen Saturation - - Inhaled Oxygen Concentration - - Weight - - Height - - Body Mass Index - - documented in this encounter Patient Instructions * Patient Instructions* Mira Rod APRN - 04/14/2024 9:20 AM EST Please feel free to call and schedule your imaging at your convenience. Please be aware you may be on hold for awhile waiting to hear from a hybrid car mechanic, please be patient with them as they are receiving many calls. [facility] [place] Ultrasounds: [phone] documented in this encounter Progress Notes * Mira Rod APRN - 04/14/2024 9:20 AM EST Urinary Incontinence New Patient Workup - Female Nataliya Morfin 1975 [id number] Reason for Visit: This is a female 49 y.o. seen in follow up for urinary incontinence. 09/16/2022 She is wearing a pad and is leaking without warning. No dysuria or hematuria. She never feels that she empties well and does not feel the urge to push. Sometimes however. She will double void within 10-15 mins. Symptoms were at their worst August 16-. They have been recently a bit better. She presented to the ED 10 days ago with elevated Orin levels and was switched to Depakote at that time. She is followed by Nephrology for elevated creatinine. Notes from Haylie Steward MD on file have been received and reviewed. Nocturia: x 4. Nocturnal enuresis: No. Drinks mostly water, about 8 glasses per a day. 04/14/2024: Nataliya returns today for follow up of her urinary incontinence. At her last visit, we discussed pelvic stretching, behavioral modifications including timed and double voiding. We had discussed pelvic floor PT, however she declined. She is here today to follow up. Was doing well for some time. She has started having some intermittent leakage again. She is up 4 or more times at night to urinate. If she limits fluids prior to bed, this doesn't seemto help. PVR 450cc shortly after she had voided. She was able to void an additional 200cc. She is currently receiving treatment for breast cancer and this is stressful for her. Last UTI: None recently. Bowel Problems: Normal Gyne: G 0 P 0 # 0 Patient Active Problem List Diagnosis Code CKD (chronic kidney disease) stage 2, GFR 60-89 ml/min N18.2 Hyperparathyroidism E21.3 Anemia D64.9 Orin intoxication, accidental or unintentional, initial encounter T56.891A [...] in female, estrogen receptor positive C50.312, Z17.0 Past Medical History: Diagnosis Date Bipolar 1 disorder Breast cancer Chronic kidney disease (CKD) stage G3b/A1, moderately decreased glomerular filtration rate (GFR) between 30-44 mL/min/1.73 square meter and albuminuria creatinine ratio less than 30 mg/g Hyperparathyroidism Hypothyroid OCD (obsessive compulsive disorder) Past Surgical History: Procedure Laterality Date EYE SURGERY tear ducts as a child MAMMO MAGSEED PLACEMENT MULTIPLE LEFT Left 02/01/2024 Mammo Magseed Placement Multiple Left 02/01/2024 Martha Martino MD [facility] RAD MAMMOGRAPHY MAMMO US BIOPSY LEFT Left 01/14/2024 Mammo Us Biopsy Left 01/14/2024 MAMMO US BIOPSY MULTIPLE LEFT Left 02/01/2024 Mammo US Biopsy Multiple Left 02/01/2024 Martha Martino MD [facility] RAD MAMMOGRAPHY PRO BX/REMV, LYMPH NODE, DEEP AXILL Left 02/05/2024 BIOPSY OR EXCISION OF LYMPH NODE(S), OPEN, DEEP AXILLARY NODE(S) (WRVU 6.43) performed by Hailey Dawson MD at [facility] OSC PRO COLONOSCOPY, BIOPSY N/A 06/11/2023 COLONOSCOPY FLEXIBLE, WITH BX (WRVU 3.56) performed by Jack Page MD at [facility] ENDOSCOPY PRO INTRAOP SENTINEL LYMPH ID W/DYE INJECTION Left 02/05/2024 INTRAOPERATIVE ID (MAPPING) SENTINEL LYMPH NODE,INCLUDES INJECTION (WRVU 2.5) performed by Hailey Dawson MD at [facility] OSC PRO MASTECTOMY PARTIAL Left 02/05/2024 MASTECTOMY PARTIAL (WRVU 10.13) performed by Hailey Dawson MD at [facility] OSC PRO MASTECTOMY PARTIAL Left 02/29/2024 MASTECTOMY PARTIAL (WRVU 10.13) performed by Hailey Dawson MD at [facility] OSC PRO UPPER GI ENDOSCOPY, BIOPSY N/A 06/11/2023 EGD WITH BIOPSY (WRVU 2.39) performed by Jack Page MD at [facility] ENDOSCOPY TOE SURGERY Social: No smoking No alcohol. 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 RS - No cough or breathing difficulties. CVS No chest pain or WOO. No claudication. GI - Normal appetite and bowels. MUSCULOSKELETAL: No joint or muscle aches or dysfunction. Physical Exam Pleasant woman in no acute distress. Oriented to Person, place and time. Healthy appearance. Color normal. No significant skin lesions. Abdomen: The abdomen is soft, non-tender, without masses or organomegaly. There is no hepatosplenomegaly. The bladder is not palpable. There is no CV angle tenderness. Pelvic: The external genitalia are normal with normal hair distribution and no lesions. The meatus is in a normal location with a normal configuration. The urethra is not tender. There are no urethral masses. The patient does not leak in the supine position with valsalva and with coughing. There kari Gr. 0 cystocele and a Gr. 0 rectocele. There are no pelvic masses. The patient can Kegel effectively. Pelvic floor tenderness bilaterally. PVR: 450cc measured in the supine position with the bladder scanner shortly after the patient had voided. Able to void an additional 200cc. U/A: negative for RBC, WBC and Nitrates. Impression: 47 year old with elevated PVR. Urinary incontinence likely was overflow incontinence. Likely a pelvic floor dysfunction component, Symptoms had improved by recently worsened. Plan: Continue Behavioral modifications including timed and double voiding, moderation of bladder irritants moderation of bowels. . Discussed Pelvic floor dysfunction and high tone pelvic floor. Discussed PFPT. Patient declined. Discussed relaxation, medication, yoga, stretching and stress management. Discussed recommendation for CIC to preserve kidney function and to help with leakage. OAB symptoms. We discussed risk of kidney injury if we do nothing. She declined attempting in clinic, however, we discussed the process and she brought home a few catheters. She will think about giving this a try. Next available CHANDANA documented in this encounter Miscellaneous Notes * Addendum Note - Mira Rod APRN - 04/14/2024 9:20 AM ESTAddended by: MIRA ROD on: 04/14/2024 03:19 PM Modules accepted: Orders documented in this encounter Plan of Treatment Upcoming Encounters Date Type Department Care Team (Latest Contact Info) Description 04/22/2024 9:45 AM EST Scheduled View Only Radiation Oncology at [address] [phone] 04/25/2024 8:30 AM EST Scheduled View Only Radiation Oncology at [address] [phone] 04/26/2024 3:00 PM EST Scheduled View Only Radiation Oncology at [address] [phone] 04/26/2024 3:30 PM EST Office Visit Radiation Oncology at [address] [address] Ofe Fonseca MD [facility] [place] [address] 04/28/2024 2:45 PM EST Scheduled View Only Radiation Oncology at [address] [address] 04/29/2024 3:00 PM EST Scheduled View Only Radiation Oncology at [address] [address] 05/02/2024 3:45 PM EST Scheduled View Only Radiation Oncology at [address] [address] 05/03/2024 1:45 PM EST Scheduled View Only Radiation Oncology at [address] [phone] 05/03/2024 2:15 PM EST Office Visit Radiation Oncology at [address] [phone] Ofe Fonseca MD [facility] RADI[place] [address] 05/05/2024 8:15 AM EST Scheduled View Only Radiation Oncology at [address] [address] 05/06/2024 12:30 PM EST Scheduled View Only Radiation Oncology at [address] [phone] 05/09/2024 3:00 PM EST Scheduled View Only Radiation Oncology at [address] [phone] 05/10/2024 2:30 PM EST Scheduled View Only Radiation Oncology at [address] [address] 05/10/2024 3:15 PM EST Office Visit Radiation Oncology at [address] [phone] Ofe Fonseca MD [facility] [place] [address] 05/11/2024 2:45 PM EST Scheduled View Only Radiation Oncology at [address] [phone] 06/03/2024 3:30 PM EST Appointment Ultrasound at [place] [phone] Mira Rod [employer] [facility] [place] [address] 06/23/2024 4:00 PM EST Appointment Mammography/DXA at [place] [phone] Miryam Feliciano MD [facility] [place] [address] 07/12/2024 8:00 AM EDT Laboratory Appointment Lab [address] [place], [place] [phone] 07/12/2024 9:30 AM EDT Office Visit Nephrology Hypertension at [place] [phone] Sharmin Jean-Baptiste [facility] [place] [address] 07/13/2024 10:30 AM EDT Laboratory Appointment Lab at [facility] [place] On[place] [address] [place] [phone] 07/13/2024 11:30 AM EDT Office Visit Hematology and Oncology at [place] [phone] Salena Alvares APRN [facility] [place] [address] 07/13/2024 12:45 PM EDT Appointment Hematology [place] [phone] Scheduled Orders Name Type Priority Associated Diagnoses Orde r Schedule US Retroperitoneal Complete Imaging Routine Urinary retention Expected: 04/14/2024, Expires: 10/14/2024 documented as of this encounter Visit Diagnoses Diagnosis Urinary retention Retention of urine, unspecified documented in this encounter Care Teams Train Dispatcher Relationship Specialty Start Date End [place] [address] PCP - General General Internal Medicine 08/04/22 documented as of this encounter
--- OUTSIDE RECORDS SUMMARY | 2024-04-22 00:19 | XMS_ITS | Encounter Summary ---
Author Organization [facility] [place] [address] Care Team Providers Care Field Counsel Name Role Phone Haylie Steward MD Primary Care Provider + [phone] Encounter Details Date Type Department Care Team (Latest Contact Info) Description 04/08/2024 Travel Social History Tobacco Use Types Packs/Day [...] from your doctor or pharmacy? Rarely 02/15/2024 [facility] Utilities Answer Date Recorded In the [...] were you homeless or living in a penitentiary (including now)? No 02/15/2024 [facility] IPV Inpatient [...] EST Scheduled View Only Radiation Oncology at [address] [phone] 04/25/2024 8:30 AM EST Scheduled View Only Radiation Oncology at [address] [phone] 04/26/2024 3:00 PM EST Scheduled View Only Radiation Oncology at [address] [address] 04/26/2024 3:30 PM EST Office Visit Radiation Oncology at [address] [phone] Ofe Fonseca MD [facility] DR [place] [address] 04/28/2024 2:45 PM EST Scheduled View Only Radiation Oncology at [address] [phone] 04/29/2024 3:00 PM EST Scheduled View Only Radiation Oncology at [address] [phone] 05/02/2024 3:45 PM EST Scheduled View Only Radiation Oncology at [address] [phone] 05/03/2024 1:45 PM EST Scheduled View Only Radiation Oncology at [address] [address] 05/03/2024 2:15 PM EST Office Visit Radiation Oncology at [address] [phone] Ofe Fonseca MD [facility] [place] [address] 05/05/2024 8:15 AM EST Scheduled View Only Radiation Oncology at [address] [phone] 05/06/2024 12:30 PM EST Scheduled View Only Radiation Oncology at [address] [phone] 05/09/2024 3:00 PM EST Scheduled View Only Radiation Oncology at [address] [phone] 05/10/2024 2:30 PM EST Scheduled View Only Radiation Oncology at [address] [address] 05/10/2024 3:15 PM EST Office Visit Radiation Oncology at [address] [phone] Ofe Fonseca MD [facility] [place] [address] 05/11/2024 2:45 PM EST Scheduled View Only Radiation Oncology at [address] [address] 06/03/2024 3:30 PM EST Appointment Ultrasound at [place] [phone] Mira Hutchison [facility] [place] [address] 06/23/2024 4:00 PM EST Appointment Mammography/DXA at [place] [phone] Miryam Feliciano MD [facility] DR [place]ICAL [place] [address] 07/12/2024 8:00 AM EDT Laboratory Appointment Lab [address] [place], [place] [phone] 07/12/2024 9:30 AM EDT Office Visit Nephrology Hypertension at [place] [phone] Sharmin Jean-Baptiste, [facility] [place] [address] 07/13/2024 10:30 AM EDT Laboratory Appointment Lab at [facility] Hematology Oncology [address] [place] [phone] 07/13/2024 11:30 AM EDT Office Visit Hematology [place] [phone] Salena Alvares, [facility] DR [place]ICAL [place] [address] 07/13/2024 12:45 PM EDT Appointment Hematology and Oncology at [place] [phone] documented as of this encounter Visit Diagnoses Not on filedocumented in this encounter Care Teams Field Counsel Relationship Specialty Start Date End Date Haylie Steward MD [facility] [place] [address] PCP - General General Internal Medicine 08/04/22 documented as of this encounter
--- OUTSIDE RECORDS SUMMARY | 2024-04-22 00:19 | XMS_ITS | Encounter Summary ---
Author Organization [facility] [place] [address] Care Team Providers Care Fire And Safety Helper Name Role Phone Haylie Steward MD Primary Care Provider [phone] Encounter Details Date Type Department Care Team (Late st Contact Info) Description 03/22/2024 Notes Only Radiation Oncology at [address] [phone] Anusha Washburn, RISK MANAGEMENT MANAGER OFFICE OF CARE MANAGEMENT Social History Tobacco Use Types Packs/Day Years [...] your doctor or pharmacy? Rarely 02/15/2024 [facility] Utilities Answer Date Recorded In the past 12 months has [employer], gas, oil, or water boosk threatened to shut off services in your [...] were you homeless or living in a fdc (including now)? No 02/15/2024 [facility] IPV Inpatient [...] as of this encounter Progress Notes * Anusha Washburn, RISK MANAGEMENT MANAGER - 03/22/2024 1:54 PM EST Reason for Referral: Brief assessment of social and emotional needs. Met with Nataliya after her sim today to introduce myself and role of dialysis social worker to assess/address barriers to getting to and through treatments; address support needs and connect with community services and resources as needed. Family/Social Supports: Nataliya identified her parents as her primary supports. She also identified other extended family and friends as supports. Living Situation/Daily Activities/Transportation: Nataliya manages her daily chores and activities. She does not expect any issues with transportation. Work/Finances/Insurance: Nataliya has income from [employer] 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 She indicated she is able to manage her financial obligations. Nataliyahas Medicare A&B. Gave her the contact information to Oanh robles she needs to look into financial assistance with out of pocket medical expenses. Advance Directives: Nataliya has not completed her advance directive. Utilization of Community Resources: None at this time. Adjustment to Illness/Mental Health Concerns: Nataliya indicated she does have a team of mental healthproviders that she sees on a regular basis. Nataliya indicated she feels she is coping as best as she can. Offered support. Identified Needs: Nataliya did not identify any specific needs at this time. Referrals: None at this time. Social Work Interventions: Brief assessment Supportive Counseling Plan: Informed Nataliya of RISK MANAGEMENT MANAGER availability and contact information. Will follow to assess/address psychosocial needs. INDIA Clifford, FIELD PROPERTY LOSS SPECIALIST, OSW-C Store Cashier [facility] documented in this encounter Plan of Treatment Upcoming Encounters Date Type Department Care Team (Latest Contact Info) Description 04/22/2024 9:45 AM EST Scheduled View Only Radiation Oncology at [address] [phone] 04/25/2024 8:30 AM EST Scheduled View Only Radiation Oncology at [address] [address] 04/26/2024 3:00 PM EST Scheduled View Only Radiation Oncology at [address] [phone] 04/26/2024 3:30 PM EST Office Visit Radiation Oncology at [address] [phone] Ofe Fonseca MD [facility] [place] [address] 04/28/2024 2:45 PM EST Scheduled View Only Radiation Oncology at [address] [address] 04/29/2024 3:00 PM EST Scheduled View Only Radiation Oncology at [address] [phone] 05/02/2024 3:45 PM EST Scheduled View Only Radiation Oncology at [address] [phone] 05/03/2024 1:45 PM EST Scheduled View Only Radiation Oncology at [address] [phone] 05/03/2024 2:15 PM EST Office Visit Radiation Oncology at [address] [phone] Ofe Fonseca MD [facility] [place] [address] 05/05/2024 8:15 AM EST Scheduled View Only Radiation Oncology at [address] [address] 05/06/2024 12:30 PM EST Scheduled View Only Radiation Oncology at [address] [address] 05/09/2024 3:00 PM EST Scheduled View Only Radiation Oncology at [address] [address] 05/10/2024 2:30 PM EST Scheduled View Only Radiation Oncology at [address] [address] 05/10/2024 3:15 PM EST Office Visit Radiation Oncology at [address] [address] Ofe Fonseca MD [facility] [place] [address] 05/11/2024 2:45 PM EST Scheduled View Only Radiation Oncology at [address] [address] 06/03/2024 3:30 PM EST Appointment Ultrasound at [place] [address] Mira Hutchison [facility] [address] 06/23/2024 4:00 PM EST Appointment Mammography/DXA at [address] Miryam Feliciano MD [facility] [place] [address] 07/12/2024 8:00 AM EDT Laboratory Appointment Lab [address] [place] [address] 07/12/2024 9:30 AM EDT Office Visit Nephrology Hypertension at [place] [address] Sharmin Jean-Baptiste [facility] [place] [address] 07/13/2024 10:30 AM EDT Laboratory Appointment Lab at [facility] Hematology Oncology [address] [place] [address] 07/13/2024 11:30 AM EDT Office Visit Hematology and Oncology at [place] [phone] Salena Alvares [facility] [place] [address] 07/13/2024 12:45 PM EDT Appointment Hematology and Oncology at [address] documented as of this encounter Visit Diagnoses Not on filedocumented in this encounter Care Teams Fire And Safety Helper Relationship Specialty Start Date End Date Haylie Steward MD [facility] [address] PCP - General General Internal Medicine 08/04/22 documented as of this encounter
--- OUTSIDE RECORDS SUMMARY | 2024-04-22 00:19 | XMS_ITS | Encounter Summary ---
Author Organization [facility] [place] [address] Care Team Providers Care Wagon Winder Name Role Phone Haylie Steward MD Primary Care Provider + [phone] Encounter Details Date Type Department Care Team (Latest Contact Info) Description 03/20/2024 Travel Social History Tobacco Use Types Packs/Day [...] from your doctor or pharmacy? Rarely 02/15/[address] [facility] Utilities Answer Date Recorded In the [...] EST Scheduled View Only Radiation Oncology at [address] [phone] 04/25/2024 8:30 AM EST Scheduled View Only Radiation Oncology at [address] [address] 04/26/2024 3:00 PM EST Scheduled View Only Radiation Oncology at [address] [address] 04/26/2024 3:30 PM EST Office Visit Radiation Oncology at [address] [address] Ofe Fonseca MD [facility] [place] [address] 04/28/2024 2:45 PM EST Scheduled View Only Radiation Oncology at [address] [address] 04/29/2024 3:00 PM EST Scheduled View Only Radiation Oncology at [address] [address] 05/02/2024 3:45 PM EST Scheduled View Only Radiation Oncology at [address] [address] 05/03/2024 1:45 PM EST Scheduled View Only Radiation Oncology at [address] [address] 05/03/2024 2:15 PM EST Office Visit Radiation Oncology at [address] [address] Ofe Fonseca MD [facility] RADIATION [place] [address] 05/05/2024 8:15 AM EST Scheduled View Only Radiation Oncology at [address] [address] 05/06/2024 12:30 PM EST Scheduled View Only Radiation Oncology at [address] [phone] 05/09/2024 3:00 PM EST Scheduled View Only Radiation Oncology at [address] [address] 05/10/2024 2:30 PM EST Scheduled View Only Radiation Oncology at [address] [address] 05/10/2024 3:15 PM EST Office Visit Radiation Oncology at [address] [address] Ofe Fonseca MD [facility] [place] [address] 05/11/2024 2:45 PM EST Scheduled View Only Radiation Oncology at [address] [address] 06/03/2024 3:30 PM EST Appointment Ultrasound at [place] [phone] Mira Hutchison [facility] [place] [address] 06/23/2024 4:00 PM EST Appointment Mammography/DXA at [place] [phone] Miryam Feliciano MD [facility] [place] [address] 07/12/2024 8:00 AM EDT Laboratory Appointment Lab [address] [place], [place] [phone] 07/12/2024 9:30 AM EDT Office Visit Nephrology Hypertension at [place] [phone] Sharmin Jean-Baptiste, [facility] [place] [address] 07/13/2024 10:30 AM EDT Laboratory Appointment Lab [place] [facility] [place] [address] [place] [phone] 07/13/2024 11:30 AM EDT Office Visit H[place]ology [place] [phone] Salena Alvares, [facility] [place] [address] 07/13/2024 12:45 PM EDT Appointment Hematology and Oncology at [place] [phone] documented as of this encounter Visit Diagnoses Not on filedocumented in this encounter Care Teams Wagon Winder Relationship Specialty Start Date End Date Haylie Steward MD [facility] [place] [address] PCP - General General Internal Medicine 08/04/22 documented as of this encounter
--- OUTSIDE RECORDS SUMMARY | 2024-04-22 00:19 | XMS_ITS | Encounter Summary ---
Author Organization [facility] [place] [address] Care Team Providers Care Generator Mechanic Name Role Phone Haylie Steward MD Primary Care Provider + [phone] Encounter Details Date Type Department Care Team (Latest Contact Info) Description 03/15/2024 Travel Social History Tobacco Use Types Packs/Day [...] from your doctor or pharmacy? Rarely 02/15/2024 [facility] Utilities Answer Date Recorded In the [...] EST Scheduled View Only Radiation Oncology at [address] [address] 04/25/2024 8:30 AM EST Scheduled View Only Radiation Oncology at [address] [address] 04/26/2024 3:00 PM EST Scheduled View Only Radiation Oncology at [address] [address] 04/26/2024 3:30 PM EST Office Visit Radiation Oncology at [address] [address] Ofe Fonseca MD [facility] [place] [address] 04/28/2024 2:45 PM EST Scheduled View Only Radiation Oncology at [address] [address] 04/29/2024 3:00 PM EST Scheduled View Only Radiation Oncology at [address] [address] 05/02/2024 3:45 PM EST Scheduled View Only Radiation Oncology at [address] [address] 05/03/2024 1:45 PM EST Scheduled View Only Radiation Oncology at [address] [address] 05/03/2024 2:15 PM EST Office Visit Radiation Oncology at [address] [address] Ofe Fonseca MD [facility] [place] [address] 05/05/2024 8:15 AM EST Scheduled View Only Radiation Oncology at [address] [address] 05/06/2024 12:30 PM EST Scheduled View Only Radiation Oncology at [address] [address] 05/09/2024 3:00 PM EST Scheduled View Only Radiation Oncology at [address] [address] 05/10/2024 2:30 PM EST Scheduled View Only Radiation Oncology at [address] [address] 05/10/2024 3:15 PM EST Office Visit Radiation Oncology at [address] [address] Ofe Fonseca MD [facility] [place] [address] 05/11/2024 2:45 PM EST Scheduled View Only Radiation Oncology at [address] [address] 06/03/2024 3:30 PM EST Appointment Ultrasound at [place] [phone] Mira Hutchison [facility] [address] 06/23/2024 4:00 PM EST Appointment Mammography/DXA at [place] [phone] Miryam Feliciano MD [facility] [place] [address] 07/12/2024 8:00 AM EDT Laboratory Appointment Lab [address] [place], [place] [phone] 07/12/2024 9:30 AM EDT Office Visit Nephrology Hypertension at [place] [phone] Sharmin Jean-Baptiste, [facility] [place] [address] 07/13/2024 10:30 AM EDT Laboratory Appointment Lab at [facility] Hematology Oncology [address] [place] [phone] 07/13/2024 11:30 AM EDT Office Visit Hematology [place] [phone] Salena Alvares, [facility] [place] [address] 07/13/2024 12:45 PM EDT Appointment Hematology and Oncology at [place] [phone] documented as of this encounter Visit Diagnoses Not on filedocumented in this encounter Care Teams Generator Mechanic Relationship Specialty Start Date End Date Haylie Steward MD [facility] [place] [address] PCP - General General Internal Medicine 08/04/22 documented as of this encounter
--- OUTSIDE RECORDS SUMMARY | 2024-04-22 00:19 | XMS_ITS | Encounter Summary ---
[place] [address] Care Team Providers Care Restaurant General Manager Name Role Phone Haylie Steward MD Primary Care Provider + [phone] Reason for Visit * Reason Onset Date Comments Medication Management 04/14/2024 Misc quest ions about AI and Goserlin Encounter Details Date Type Department Care Team (Late st Contact Info) Description 04/14/2024 Telephone Hematology [place] [phone] Haylie Pinzon, filler shredder Management (Misc questions about AI and Goserlin) Social History Tobacco Use Types Packs/Day Years [...] from your doctor or pharmacy? Rarely 02/15/2024 [facility] Utilities Answer Date Recorded In the [...] in the past 12 m [facility], were you homeless or living in a [...] encounter Miscellaneous Notes * Telephone Encounter - Haylie Pinzon RN - 04/14/2024 10:53 AM EST Summary: [facility] questions From: Kimberlee Kennedy RN Sent: 04/13/2024 11:06 AM EST To: Miryam Feliciano MD; Salena Alvares APRN Subject: Letrozole injection Patient left a message re letrozole injection and S/E. She is schedule for this this Thursday. ----- Message from Salena Alvares sent at 04/14/2024 10:35 AM EST ----- Regarding: RE: Letrozole injection Letrozole is not an injection. She has a therapy plan in place for goserelin which is an injection.Once she is good on goserelin we will add letrozole Call placed to patient and spoke to Nataliya. Reviewed side effect profile from [facility]. Reviewed common side effects with endocrine therapy. Sent UpToDate patient information on Goserelin via [employer] message. All questions answered to patient's apparent satisfaction. documented in this encounter Plan of Treatment Upcoming Encounters Date Type Department Care Team (Latest Contact Info) Description 04/22/2024 9:45 AM EST Scheduled View Only Radiation Oncology at [address] [address] 04/25/2024 8:30 AM EST Scheduled View Only Radiation Oncology at [address] [address] 04/26/2024 3:00 PM EST Scheduled View Only Radiation Oncology at [address] [address] 04/26/2024 3:30 PM EST Office Visit Radiation Oncology at [address] [address] Ofe Fonseca MD [facility] [place] [address] 04/28/2024 2:45 PM EST Scheduled View Only Radiation Oncology at [address] [address] 04/29/2024 3:00 PM EST Scheduled View Only Radiation Oncology at [address] [address] 05/02/2024 3:45 PM EST Scheduled View Only Radiation Oncology at [address] [address] 05/03/2024 1:45 PM EST Scheduled View Only Radiation Oncology at [address] [address] 05/03/2024 2:15 PM EST Office Visit Radiation Oncology at [address] [address] Ofe Fonseca MD [facility] [place] [address] 05/05/2024 8:15 AM EST Scheduled View Only Radiation Oncology at [address] [address] 05/06/2024 12:30 PM EST Scheduled View Only Radiation Oncology at [address] [address] 05/09/2024 3:00 PM EST Scheduled View Only Radiation Oncology at [address] [address] 05/10/2024 2:30 PM EST Scheduled View Only Radiation Oncology at [address] [address] 05/10/2024 3:15 PM EST Office Visit Radiation Oncology at [address] [address] Ofe Fonseca MD [facility] [place] [address] 05/11/2024 2:45 PM EST Scheduled View Only Radiation Oncology at [address] [address] 06/03/2024 3:30 PM EST [place]oint[place] [phone] Mira Hutchison APRN [facility] [place] [address] 06/23/2024 4:00 PM EST Appointment Mammography/[place] [phone] Miryam Feliciano MD [facility] [place] [address] 07/12/2024 8:00 AM EDT Laboratory Appointment Lab [place] [address] 07/12/2024 9:30 AM EDT Office Visit Nephrology Hypertension at [place] [address] Sharmin Jean-Baptiste, [facility] [place] [address] 07/13/2024 10:30 AM EDT Laboratory Appointment Lab at [facility] Hematology Oncology [address] [place], [place] [phone] 07/13/2024 11:30 AM EDT Office Visit Hematology [place] [phone] Salena Alvares [facility] [place] [place] [address] 07/13/2024 12:45 PM EDT Appointment Hematology and Oncology at [place] [phone] documented as of this encounter Visit Diagnoses Not on filedocumented in this encounter Care Teams Restaurant General Manager Relationship Specialty Start Date End Date Haylie Steward [place] [address] PCP - General General Internal Medicine 08/04/22 documented as of this encounter
--- OUTSIDE RECORDS SUMMARY | 2024-04-22 00:20 | XMS_ITS | Encounter Summary ---
Author Organization [facility] [place] [address] Care Team Providers Care Marketing Proposal Coordinator Name Role Phone Haylie Steward MD Primary Care Provider + [phone] Encounter Details Date Type Department Care Team (Late st Contact Info) Description 02/02/2024 Patient Outreach Hematology and Oncology at [facility] [place] [phone] Alma Moseley, RN Social History Tobacco Use Types Packs/Day Years Used Date Smoking Tobacco: Never Smokeless Tobacco: Never Alcohol Use Standard Drinks/Week Comments Not Currently 0 (1 standard drink = 0.6 oz pur e alcohol) Overall Financial Resource Strain (CARDIA) Answe r Date Recorded How hard is it for you to pa y for the very basics like food, housing, medical care, and heating? Not very hard 01/20/2024 PRAPARE - Transportation Answer Date Re corded In the past 12 months, has l ack of transportation kept you from medical appointments or from getting medications? No 01/02 In the past 12 months, has l ack of transportation kept you from meetings, work, or from getting things needed for daily living? No 01/20/2024 [facility] Inpatient Questions Answer Date Recorded Does Anyone Try to Keep You From Having Contact with Others or Doing Things Outside Your Home? no 09/06/2022 Feels Threatened by Someone no 10/2022 Feels Unsafe at Home or Work/School no 09/06/2022 Physical Signs of Abuse Present no 09/06/2022 Sex and Gender Information Value Date Recorded Sex Assigned at Female 02/25/2023 12:01 PM EDT Gender Identity Female 02/25/2023 12:01 PM EDT Sexual Orientation Straight 02/25/2023 12 :01 PM EDT documented as of this encounter Progress Notes * Alma Moseley RN - 02/02/2024 3:40 PM EDT [facility] Nurse Navigator Call for the Comprehensive Breast Program (CBP) Nataliya Morfin is a 48 y.o. 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 She met with Dr. Dawson on 01/24 in surgical oncology consultation. Additional left breast biopsies (2) were done on 01/31 at [facility]. Reason for call: Nataliya called Dr. Dawson today regarding her surgical pathology report from her01/31 left breast biopsies. Contacted Nataliya per request of Dr. Dawsno and left her a message on her listed cell phone. Plan: The pathology report is not yet ready. Let Nataliya know that Dr. Dawson will call her with the results when available. Nataliya has our contact numbers. documented in this encounter Plan of Treatment Upcoming Encounters Date Type Department Care Team (Latest Contact Info) Description 04/22/2024 9:45 AM EST Scheduled View Only Radiation Oncology at [address] [address] 04/25/2024 8:30 AM EST Scheduled View Only Radiation Oncology at [address] [address] 04/26/2024 3:00 PM EST Scheduled View Only Radiation Oncology at [address] [address] 04/26/2024 3:30 PM EST Office Visit Radiation Oncology at [address] [address] Ofe Fonseca MD [facility] [place] [address] 04/28/2024 2:45 PM EST Scheduled View Only Radiation Oncology at [address] [address] 04/29/2024 3:00 PM EST Scheduled View Only Radiation Oncology at [address] [address] 05/02/2024 3:45 PM EST Scheduled View Only Radiation Oncology at [address] [address] 05/03/2024 1:45 PM EST Scheduled View Only Radiation Oncology at [address] [address] 05/03/2024 2:15 PM EST Office Visit Radiation Oncology at [address] [address] Ofe Fonseca MD [facility] [place] [address] 05/05/2024 8:15 AM EST Scheduled View Only Radiation Oncology at [address] [address] 05/06/2024 12:30 PM EST Scheduled View Only Radiation Oncology at [address] [address] 05/09/2024 3:00 PM EST Scheduled View Only Radiation Oncology at [address] [address] 05/10/2024 2:30 PM EST Scheduled View Only Radiation Oncology at [address] [address] 05/10/2024 3:15 PM EST Office Visit Radiation Oncology at [address] [address] Ofe Fonseca MD [facility] [place] [address] 05/11/2024 2:45 PM EST Scheduled View Only Radiation Oncology at [address] [address] 06/03/2024 3:30 PM EST Appointment Ultrasound at [place] [phone] Mira Hutchison, [facility] [place] [address] 06/23/2024 4:00 PM EST Appointment Mammography/DXA at [place] [phone] Miryam Feliciano MD [facility] [place] [address] 07/12/2024 8:00 AM EDT Laboratory Appointment Lab [address] [place], [place] [phone] 07/12/2024 9:30 AM EDT Office Visit Nephrology Hypertension at [place] [phone] Sharmin Jean-Baptiste, [facility] [place] [address] 07/13/2024 10:30 AM EDT Laboratory Appointment Lab at [facility] Hematology Oncology [address] [place] [phone] 07/13/2024 11:30 AM EDT Office Visit Hematology [place] [phone] Salena Alvares, [facility] [place] [address] 07/13/2024 12:45 PM EDT Appointment Hematology [place] [phone] documented as of this encounter Visit Diagnoses Not on filedocumented in this encounter Care Teams Marketing Proposal Coordinator Relationship Specialty Start Date End Date Haylie Steward MD [place] [address] PCP - General General Internal Medicine 08/04/22 documented as of this encounter
--- OUTSIDE RECORDS SUMMARY | 2024-04-22 00:20 | XMS_ITS | Encounter Summary ---
Author Organization [facility] [place] [address] Care Team Providers Care Smooth [employer] Worker [employer] Name Role Phone Haylie Steward MD Primary Care Provider [phone] Encounter Details Date Type Department Care Team (Late st Contact Info) Description 02/05/2024 12:40 PM EDT - 02/05/2024 2:37 PM EDT Surgery [place] [address] Mignon Dawson MD [facility] [place] [address] MASTECTOMY PARTIAL (WRVU 10.13) Social History Tobacco Use Types Packs/Day Years [...] things needed for daily living? No 01/20/2024 DH IPV Inpatient Questions Answer Date Recorded Does Anyone Try to Keep You From Having Contact with Others or Doing Things Outside Your Home? no 02/05/2024 Feels Threatened by Someone no 0 08/2023 Feels Unsafe at Home or Work/School no 02/05/2024 Physical Signs of Abuse Present no 02/05/2024 Sex and Gender Information Value Date Recorded Sex Assigned at Female 02/25/2023 12:01 PM EDT Gender Identity Female 02/25/2023 12:01 PM EDT Sexual Orientation Straight 02/25/2023 12 :01 PM EDT documented as of this encounter Last Filed Vital Signs Vital Sign Reading Time Taken Comments Blood Pressure 152/73 02/05/2024 12:10 PM EDT Pulse 66 02/05/2024 12:10 PM EDT Temperature 36.1 ??C (97 ??F) 02/05/2024 12:10 PM EDT Respiratory Rate 18 02/05/2024 12:10 PM EDT Oxygen Saturation 95% 02/05/2024 12:10 PM EDT Inhaled Oxygen Concentration - - Weight 62.1 kg (137 lb) 02/05/2024 12:10 PM EDT Height 157.5 cm (5' 2) 02/05/2024 12:10 PM EDT Body Mass Index 25.06 02/05/2024 12:10 PM EDT documented in this encounter Discharge Instructions * Discharge Instructions* Lynette Almonte RN - 02/05/2024 10:39 AM EDT Okay to shower 24 hours Activity as tolerated Call [phone] with any questions Do not soak incision for 2 weeks Will call with pathology results when available Ice pack to breast as needed Okay to use tylenol and/or ibuprofen as needed for pain (Recommend taking 650 mg of tylenol 4 hours as needed) Wear bra for comfort (you may want to wear / until swelling improves) At 3:45pm you received 975 mg of acetaminophen- Your next dose should not be taken before 6-8 hourshave passed or as advised by your provider. Next dose not before- 10pm-midnight You should not take more than a total of 3000 mg of acetaminophen in a 24 hour period. General Anesthesia Discharge Instructions Go home and rest. You may be sleepy for several hours. Take it easy as sudden position changes may cause nausea and/or dizziness. Use caution on stairs. Follow a light to regular diet as tolerated today. If nausea occurs, start with clear liquids, and progress slowly to a regular diet. Do not drive, operate machinery, drink alcoholic beverages or make any legal decisions after havinggeneral anesthesia. The medications given change your reaction time and alter your judgement. IV site -- slight redness is normal, you can use warm compresses. If tenderness and redness increases or foul drainage occurs, please contact your M.D. Patients who have had endotracheal tubes/LMA (tubes used by the anesthesia staff to ensure a safe airway during your operation) may have a sore throat. This is normal and cold liquids or soothing lozenges will help ease this discomfort. Narcotic pain medications can cause constipation, please ask the surgeons office what they recommend for prevention of this. Some non-pharmaceutical means of constipation prevention include increasing intake of fluids, eating more fruits and vegetables as well as fruit juices. If you are uncomfortable and/or unable to urinate within 8 hours of discharge and it is before 5 pm, call your physician. If it is after 5pm go to the closest emergency room or call the hospital paint striping machine operator at [phone] and ask for physician director of slot operations covering for your physician. Questions or problems after 5pm or on a weekend: Call the [facility] paint striping machine operator at and ask for the physician director of slot operations covering for your doctor. documented in this encounter Medications at Time of Discharge Medication Sig Dispensed Refills Start Date End Date cariprazine (Vraylar) 1.5 mg capsule 03/23/2021 zolpidem (Ambien) 5 mg tablet Take 1 [...] for Pain. lithium 300 mg capsule 04/11/202104/19 buPROPion XL (Wellbutrin XL) 150 mg XL 24 hr tablet Take 1 tablet by mouth every morning. 90 tablet 01/26/2024 03/23/2024 levothyroxine (Synthroid) 75 mcg tablet Take 1 tablet by mouth every morning. 90 tablet 01/26/2024 03/23/2024 divalproex ER (Depakote ER) 250 mg ER 24 hr tablet 2 tabs AM and 3 tabs PM. 150 tablet 2 01/12/2024 03/23/2024 pilocarpine (Salagen) 5 mg tablet Take 1 tablet by mouth 3 times daily. 90 tablet 2 01/12/2024 03/23/2024 documented as of this encounter H&P Notes * Mignon Dawson MD - 02/05/2024 10:38 AM EDT Patient Name: Nataliya Morfin Patient Age: 48 y.o. Birthdate: 1975 Admit date: (Not on file) Attending Physician: Mignon Dawson MD HPI Nataliya is a 48 yo female seen in surgical consultation at the request of Dr. Steward. She presents to discuss newly diagnosed left breast cancer. She does have a FH of cancer and genetic testing has been performed which was negative for a deleterious mutation. Nataliya presented for screening mammogram in January,. Breasts are hetherogenously dense. Right breast was normal. In the left breast: FINDINGS: A 13 mm focal asymmetry with architectural distortion at approximately 7 o'clock 3 cm from the nipple in the left breast. Call back imaging was suspicious and biopsy confirmed low grade ER/CT+ IDC , her2 negative. Given breast density, MRI was performed- additional imaging is recommended on the left. IMPRESSION LEFT BREAST: Biopsy-proven malignancy in the [...] background parenchymal enhancement without focal suspicious findings. Nataliya denies known breast masses or adenopathy. She has no nipple discharge or prior biopsies. FH Family History of Cancer Problem Relation Age of Onset Melanoma Mother 62 Bladder Cancer Mother 82 Prostate Cancer Father 71 Prostate Cancer Maternal Grandfather Prostate Cancer Paternal Uncle Pancreatic Cancer Paternal Aunt Cancer Paternal Aunt salivary gland cancer SH: non smoker. 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 . Past Medical History Past Medical History: Diagnosis Date Bipolar 1 disorder Chronic kidney disease (CKD) stage G3b/A1, moderately decreased glomerular filtration rate (GFR) between 30-44 mL/min/1.73 square meter and albuminuria creatinine ratio less than 30 mg/g Hyperparathyroidism Hypothyroid OCD (obsessive compulsive disorder) Review of Systems Constitutional: Negative. HENT: Negative. Eyes: Negative. Respiratory: Negative. Cardiovascular: Negative. Gastrointestinal: Negative. Endocrine: Negative. Genitourinary: Negative. Musculoskeletal: Negative. Skin: Negative. Allergic/Immunologic: Negative. Neurological: Negative. Hematological: Negative. Psychiatric/Behavioral: The patient is nervous/anxious. Objective Physical Exam Constitutional: Appearance: Normal appearance. Cardiovascular: Rate and Rhythm: Normal rate and regular rhythm. Pulmonary: Effort: Pulmonary effort is normal. Breath sounds: Normal breath sounds. Chest: Breasts: Right: No mass. Left: No mass. Lymphadenopathy: Upper Body: Right upper body: No supraclavicular or axillary adenopathy. Left upper body: No supraclavicular or axillary adenopathy. Skin: General: Skin is warm. Neurological: General: No focal deficit present. Mental Status: She is alert. Imaging as in hpi. I have personally reviewed MRI and mammogram. Assessment and Plan Nataliya is a 48 yo female with radiographic stage I IDC of the left breast.No symptomatic or chemicaleidence of metastasis. Discussed options for surgery. We reviewed the MRI findings and plan u/s later today. Regardless of results, Nataliya is a candidate for breast conservation and is most interestedin this option understanding survival is equivalent. We will plan seed localization of lesion 1 (and 2 or 3 if needed). . We also discussed the technique and rationale for sentinel node biopsy and wewill proceed with this as well. We briefly touched upon systemic adjuvant therapy. Nataliya is willing to undergo chemotherapy if indicated and understands that oncotype DX testing will likely be recommended to determine the need. Sheis also aware that we will recommend at least 5 years of endocrine therapy for management of her2+ disease. Lesions 2 and 3 benign on biopsy. Stable for partial mastectomy of lesion 1 and sentinel node. documented in this encounter Miscellaneous Notes * Op Note - Mignon Dawson MD - 02/05/2024 1:40 PM EDT [facility] Operative Note Patient Name: Nataliya Morfin : [id number] MR#: [id number] Case Date: 02/05/2024 Surgeon: Surgeons and Role: * Mignon Dawson MD - Primary * Jurgen Bell MD - Resident - Assisting * Natalie Vargas MD - Resident - Assisting Preoperative diagnosis: breast cancer - left Postoperative diagnosis: breast cancer Procedure(s) (LRB): MASTECTOMY PARTIAL (WRVU 10.13) (Left) BIOPSY OR EXCISION OF LYMPH NODE(S), OPEN, DEEP AXILLARY NODE(S) (WRVU 6.43) (Left) INTRAOPERATIVE ID (MAPPING) SENTINEL LYMPH NODE,INCLUDES INJECTION (WRVU 2.5) (Left) MODIFIER MAGSEED (Left) Anesthesia: General Estimated Blood Loss: 14cc Specimens removed during surgery: ID Type Source Tests Collected by Time Destination 1 : left partial breast mastectomy Tissue Breast, Left SURGICAL PATHOLOGY Mignon Dawson MD 02/05/2024 1403 2 : left breast tissue lesion 1 Tissue Breast, Left SURGICAL PATHOLOGY Mignon Dawson MD 02/05/2024 1430 3 : Left Wilson Node Tissue Wilson Lymph Node SURGICAL PATHOLOGY Mignon Dawson MD 02/05/2024 1449 Surgical Closure: Primary Closure - skin incision is completely closed without any wires, malachi, drains or other devices Disposition: awakened from anesthesia, extubated and taken to the recovery room in a stable condition, having suffered no apparent untoward event. Condition: doing well without problems (Please see the Surgical Encounter Summary for any Implant and Specimen details pertinent to this patient.) HPI/Surgical Indications: Nataliya is a 48 yo female with left breast cancer. She presents for partialmastectomy and sentinel node excision. Procedure Description: Operative Procedure: Nataliya presented to radiology for seed localization of the mass and clip in thelower central left breast. She then was admitted through Same-Day Surgery. She was brought to the Operating Room and laid supine on the operating table. Sedatives were administered intravenously and an LMA was placed. The left breast was prepped and draped in sterile fashion. Time-out confirmed thepatient's identity, the correct surgical site, and the administration of prophylactic antibiotics. Once the time out had been confirmed, attention was turned to the breast. I injected 2cc of magtracefor lymphatic mapping and performed massage for 5 minutes. Here an incision was made in the inframammary fold. A flap was elevated superiorly. Guided by the seed, we attempted excision of lesion 1. On xray however, this lesion 2. I then widely excised a circumferential . A circumferential core of tissue was widely excised superiorly. The tissue was inked on the anatomic margins and sent to Radiology where the mass and clip were confirmed to be in the surgical specimen. Of note, the inferior margin of the second excision was the superior margin of the initial excision and the medial margin was excised asthe lateral margin of excision 1. The wound was irrigated and hemostasis achieved. Biopsy cavity clips were placed. Partial breast reconstruction was undertaken, and the wound was closed in layers. Sterile dressings were applied. Attention was then turned to the axilla. Here an incision was made and brought through the clavipectoral fascia. Guided by the magtrace, I identified 2 sentinel nodes which I excised. The highest hadan ex vivo count of 3842. Remaining count within the axilla was 204. There was not palpable adenopathy. Satisfied that all sentinel nodes were removed, the wound was irrigated and hemostased and closed in layers. Surgical Infection Prevention Bundle Used? N/A Attestation: Case Date: 02/05/2024 I was present and I participated during the entire procedure (does not need to include opening and closing). MIGNON DAWSON MD 02/05/2024 documented in this encounter Plan of Treatment Upcoming Encounters Date Type Department Care Team (Latest Contact Info) Description 04/22/2024 9:45 AM EST Scheduled View Only Radiation Oncology at [address] [phone] 04/25/2024 8:30 AM EST Scheduled View Only Radiation Oncology at [address] [phone] 04/26/2024 3:00 PM EST Scheduled View Only Radiation Oncology at [address] [phone] 04/26/2024 3:30 PM EST Office Visit Radiation Oncology at [address] [address] Ofe Fonseca MD [facility] [place] [address] 04/28/2024 2:45 PM EST Scheduled View Only Radiation Oncology at [address] [address] 04/29/2024 3:00 PM EST Scheduled View Only Radiation Oncology at [address] [phone] 05/02/2024 3:45 PM EST Scheduled View Only Radiation Oncology at [address] [address] 05/03/2024 1:45 PM EST Scheduled View Only Radiation Oncology at [address] [phone] 05/03/2024 2:15 PM EST Office Visit Radiation Oncology at [address] [address] Ofe Fonseca MD [facility] RADIATION [place] [address] 05/05/2024 8:15 AM EST Scheduled View Only Radiation Oncology at [address] [address] 05/06/2024 12:30 PM EST Scheduled View Only Radiation Oncology at [address] [address] 05/09/2024 3:00 PM EST Scheduled View Only Radiation Oncology at [address] [phone] 05/10/2024 2:30 PM EST Scheduled View Only Radiation Oncology at [address] [phone] 05/10/2024 3:15 PM EST Office Visit Radiation Oncology at [address] [address] Ofe Fonseca MD [facility] [place] [address] 05/11/2024 2:45 PM EST Scheduled View Only Radiation Oncology at [address] [address] 06/03/2024 3:30 PM EST Appointment Ultrasound at [place] [phone] Mira Hutchison [facility] [place] [address] 06/23/2024 4:00 PM EST Appointment Mammography/DXA at [place] [phone] Miryam Feliciano MD [facility] [place] [address] 07/12/2024 8:00 AM EDT Laboratory Appointment Lab [address] [phone] 07/12/2024 9:30 AM EDT Office Visit Nephrology Hypertension at [place] [phone] Sharmin Jean-Baptiste [employer] [facility] [place] [address] 07/13/2024 10:30 AM EDT Laboratory Appointment Lab at [facility] Hematology Oncology [address] [place] [phone] 07/13/2024 11:30 AM EDT Office Visit H[place] [address] Salena Alvares APRN [facility] DR MEDICAL ONCOLOGY [place] [phone] 07/13/2024 12:45 PM EDT Appointment Hematology [place] [address] documented as of this encounter Procedures Procedure Name Priority Date/Time Associated Diagnosis Comments SURGICAL PATHOLOGY Routine 02/05/2024 2: 03 PM EDT MODIFIER MAGSEED Yes 02/05/2024 1:12 PM EDT breast cancer Intraop Wilson Lymph Id W/Dye Injection (11951) Yes 02/05/2024 1:12 PM EDT breast cancer Bx/Remv, Lymph Node, Deep Axill (84738) Yes 02/05/2024 1:12 PM EDT breast cancer Mastectomy Partial (07361) Yes 02/05/2024 1:12 PM EDT breast cancer documented in this encounter Results * Surgical Pathology (02/05/2024 2:03 PM EDT) Case Report Surgical Pathology Report ? Case: [id number] ? Authorizing Provider: ??Mignon Dawson MD ? Collected: ? 02/05/2024 1403 ? Ordering Location: ? [facility] ??Received: ?02/05/2024 1455 ? [facility] ? Hospital ? Pathologist: ? Tati Wilkins, DO ? Specimens: ?? A) - Breast, Left, left partial breast mastectomy ? B) - Breast, Left, left breast tissue lesion 1 ? C) - Wilson Lymph Node, Left Wilson Node ? 02/18/2024 11:55 AM EDT [facility] Final Diagnosis A. Breast, left. partial mastectomy: - Focal ductal carcinoma in situ (DCIS), [...] left, lesion 1, excision: - Invasive ductal carcinoma (see Synoptic Report). - Ductal carcinoma in situ. - Columnar cell change and columnar cell hyperplasia. - Fibrocystic changes (cysts, sclerosing adenosis, and stromal fibrosis). - Biopsy site changes. C. Left sentinel node excision: - Two lymph nodes, negative for malignancy. (0/2) 02/18/2024 11:55 AM [facility] Synoptic Report INVASIVE CARCINOMA OF THE BREAST: Resection INVASIVE CARCINOMA OF THE BREAST: RESECTION - B, C 8th Edition - Protocol posted: 04/15/2023 SPECIMEN ?? Procedure: ?Excision (less than total mastectomy) ?? Specimen Laterality: ?Left TUMOR ?? Tumor Site: ?Lesion 1 ?? Histologic Type: ?Invasive carcinoma of no special type (ductal) ?? Histologic Grade (Dyana Histologic Score): ? Glandular (Acinar) / Tubular Differentiation: ?Score 2 ? Nuclear Pleomorphism: ?Score 2 ? Mitotic Rate: ?Score 1 ? Overall Grade: ?Grade 1 (scores of 3, 4 or 5) ?? Tumor Size: ?Greatest dimension of largest invasive focus (Millimeters): 9 mm ?? Tumor Focality: ?Single focus of invasive carcinoma ?? Ductal Carcinoma In Situ (DCIS): ?Present ? : ?Negative for extensive intraductal component (EIC) ? Architectural Patterns: ?Cribriform ? Architectural Patterns: ?Solid ? Nuclear Grade: ?Grade II (intermediate) ? Necrosis: ?Not identified ?? Lymphatic and / or Vascular Invasion: ?Not identified ?? Treatment Effect in the Breast: ?No known presurgical therapy MARGINS ?? Margin Status for Invasive Carcinoma: ?Invasive carcinoma present at margin ? Margin(s) Involved by Invasive Carcinoma: ?Posterior: in specimen B ? Margin(s) Involved by Invasive Carcinoma: ?Lateral: in specimen B ? Distance from Invasive Carcinoma to Anterior Margin: ?4 mm ? Distance from Invasive Carcinoma to Superior Margin: ?Greater than: 5 mm ? Distance from Invasive Carcinoma to Inferior Margin: ?Greater than: 5 mm ? Distance from Invasive Carcinoma to Medial Margin: ?Greater than: 5 mm ?? Margin Status for DCIS: ?DCIS present at margin ? Margin(s) Involved by DCIS: ?Lateral REGIONAL LYMPH NODES ?? Regional Lymph Node Status: ? : ?All regional lymph nodes negative for tumor ? Total Number of Lymph Nodes Examined (sentinel and non-sentinel): ?2 ? Number of Wilson Nodes Examined: ?2 pTNM CLASSIFICATION (AJCC 8th Edition) ?? Reporting of pT, pN, and (when applicable) pM categories is based on information available to the pathologist at the time the report is issued. As per the AJCC (Chapter 1, 8th Ed.) it is the managing physician? s responsibility to establish the final pathologic stage based upon all pertinent information, including but potentially not limited to this pathology report. ?? pT Category: ?pT1b ?? pN Category: ?pN0 ?? N Suffix: ?(sn) 02/18/2024 11:55 AM EDT [facility] Clinical Information A. Breast, Left, left partial breast mastectomy *Other - as specified in Clinical Information Left partial breast mastectomy Clin info-breast cancer B. Breast, Left, left breast tissue lesion 1 *Other - as specified in Clinical Information left breast tissue lesion 1 Clin info-Breast cancer C. Wilson Lymph Node, Left Wilson Node *Other - as specified in Clinical Information Left Wilson Node 02/18/2024 11:55 AM EDT [facility] Gross Description A. Breast, Left, left partial breast mastectomy. A - Labeled/Fixative: Left partial breast mastectomy, fresh. Quantity/Size/Ryan ght: Single, 4.5 x 4.3 x 1.3 cm [...] less than 10% of the entire specimen Sections/Processi ng: Inked, serially sectioned and entirely submitted in 12 cassettes as follows: A1: Perpendicular sections of the medial margin A2-A3: Bisected slice #2 A4-A5: Bisected slice #3 to include account representative mass in block A5 A6-A7: Bisected slice #4 to include account representative mass and the site containing the biopsy clip A8-A9: Bisected slice #5 A10-A11: Bisected slice #6 A12: Perpendicular sections of the lateral margin B. Breast, Left, left breast tissue lesion 1. B - Labeled/Fixative: Breast, left, breast tissue lesion #1, fresh. Quantity/Size/Ryan ght: Single, 3.5 x 3.3 x 1.7 cm [...] comprising approximately 10% of the entire specimen Sections/Processi ng: Inked, serially sectioned and entirely submitted in 9 cassettes as follows: B1: Perpendicular sections of the medial margin B2: Slice #2 B3-B4: Bisected slice #3 B5-B6: Bisected slice #4 to include account representative mass B7-B8: Bisected slice #5 to include account representative mass and the site containing the biopsy clip B9: Perpendicular sections of the lateral margin C. Wilson Lymph Node, Left Wilson Node. C - Labeled/Fixative: Wilson lymph node, left, fresh. Quantity/Size: Two, 0.5 x 0.4 x 0.4 cm and 0.7 x 0.4 x 0.3 cm. Tissue Description: Adipose tissue with two, up to 0.7 x 0.4 x 0.3 cm. Sections/Processi ng: Entirely submitted in 2 cassettes as follows: C1: Smaller bisected candidate lymph node C2: Larger bisected candidate lymph node CAK 02/18/2024 11:55 AM EDT [facility] Result Note Routine 02/18/2024 11:55 AM EDT [facility] Tissue LEFT BREAST STRUCTURE / Unknown 02/05/2024 2:03 PM EDT 02/05/2024 2:55 PM EDT Comment:Left partial breast mastectomy Clin info-breast cancer Tissue specimen (specimen) LEFT BREAST STRUCTURE / Unknown 02/05/2024 2:30 PM EDT 02/05/2024 2:55 PM EDT Comment:left breast tissue l esion 1 Clin info-Breast cancer Tissue specimen (specimen) SENTINEL LYMPH NODE / Unknown 02/05/2024 2:49 PM EDT 02/05/2024 3:12 PM EDT Comment:Left Wilson Node Mignon Dawson MD PATHOLOGY/CYTOLOGY ORDERABLES [facility] [place] [address] documented in this encounter Visit Diagnoses Not on filedocumented in this encounter Administered Medications Inactive Administered Medications - up to 3 most recent administrations Medication Order MAR Action Action Date Dose Rate Site acetaminophen (Tylenol) tablet 975 mg 975 mg, Oral, ONCE, 1 dose, On Thu02/05/24 at 1600, Administer with a SIP of water only. Maximum dose of acetaminophen is 4,000 mg from all sources in 24 hours., PACU Recovery, Routine Given 02/05/2024 3:39 PM EDT 975 mg BUPivacaine (pf) (Marcaine) (5 mg/mL) 0.5% injection PRN, Starting on Thu02/05/24 at 1340, Until Thu02/05/24 at 1838, Intra-Operative (Intra-Procedure), Routine Given 02/05/2024 1:40 PM EDT 15.5 mLs 19- Surgical Site fentaNYL (pf) (50 mcg/mL) multi-dose injection 25 mcg 25 mcg, Intravenous, EVERY 5 MIN PRN, Starting on Thu02/05/24 at 1512, Until Thu02/05/24 at 1636, Pain, Mild to moderate pain (1-5 out of 10), Hold for respiratory rate less than 10 per minute. Maximum dose 200 mcg over one hour, including OR administration. If ordered with HYDROmorphone or morphine, give HYDROmorphone or morphine first and use fentaNYL for breakthrough pain., PACU Recovery, Routine Given 02/05/2024 3:47 PM EDT 25 mcg lidocaine (pf) (Xylocaine) (10 mg/mL) 1% injection PRN, Starting on Thu02/05/24 at 1415, Until Thu02/05/24 at 1838, Intra-Operative (Intra-Procedure), Routine Given 02/05/2024 2:15 PM EDT 15.5 mLs 19- Surgical Site documented in this encounter Active and Recently Administered Medications Times are shown in EDT. Scheduled Medication Order 02/03/2024 02/04/2024 02/05/2024 acetaminophen (Tylenol) tablet 975 mg (COMPLETED) 975 mg, Oral, ONCE, 1 dose, On Thu02/05/24 at 1600, Administer with a SIP of water only. Maximum dose of acetaminophen is 4,000 mg from all sources in 24 hours., PACU Recovery, Routine 1539 (Given - Provid er: Lynette Almonte RN) ceFAZolin (Ancef) (100 mg/mL) injection solution 2 g (COMPLETED) 2 g, Intravenous, ONCE, 1 dose, On Thu02/05/24 at 1215, To be prepared by and administered by Anesthesia. Reconstitute each ceFAZolin 1 gram vial with 10 mL of NS or SWFI = 100 mg/mL May inject IV without further dilution over 3 to 5 minutes., Day of Surgery (Day of Procedure), Indication for (Active or Suspected): Prophylaxis 1328 (New Bag - Prov ider: Nicole Maza CRNA) PRN Medication Order 02/03/2024 02/04/2024 02/05/2024 BUPivacaine (pf) (Marcaine) (5 mg/mL) 0.5% injection (CANCELED) PRN, Starting on Thu02/05/24 at 1340, Until Thu02/05/24 at 1838, Intra-Operative (Intra-Procedure), Routine 1340 (Given - Provid er: Mignon Dawson MD - Comment: Bupivacaine 0.5% plain 30 mls mixed w/ Lidocaine 1% plain 30 mls on sterile field) fentaNYL (pf) (50 mcg/mL) multi-dose injection 25 mcg (CANCELED)(Linked Group 1) 25 mcg, Intravenous, EVERY 5 MIN PRN, Starting on Thu02/05/24 at 1512, Until Thu02/05/24 at 1636, Pain, Mild to moderate pain (1-5 out of 10), Hold for respiratory rate less than 10 per minute. Maximum dose 200 mcg over one hour, including OR administration. If ordered with HYDROmorphone or morphine, give HYDROmorphone or morphine first and use fentaNYL for breakthrough pain., PACU Recovery, Routine 1547 (Given - Provid er: Lynette Almonte RN) lidocaine (pf) (Xylocaine) (10 mg/mL) 1% injection (CANCELED) PRN, Starting on Thu02/05/24 at 1415, Until Thu02/05/24 at 1838, Intra-Operative (Intra-Procedure), Routine 1415 (Given - Provid er: Mignon Dawson MD - Comment: Bupivacaine 0.5% plain 30 mls mixed w/ Lidocaine 1% plain 30 mls on sterile field) Linked Groups Order Group 1: fentaNYL (pf) (50 mcg/mL) multi-dose injection 25 mcg (CANCELED)Jump to med 25 mcg, Intravenous, EVERY 5 MIN PRN, Starting on Thu02/05/24 at 1512, Until Thu02/05/24 at 1636, Pain, Mild to moderate pain (1-5 out of 10), Hold for respiratory rate less than 10 per minute. Maximum dose 200 mcg over one hour, including OR administration. If ordered with HYDROmorphone or morphine, give HYDROmorphone or morphine first and use fentaNYL for breakthrough pain., PACU Recovery, Routine Or fentaNYL (pf) (50 mcg/mL) multi-dose injection 50 mcg (CANCELED) 50 mcg, Intravenous, EVERY 5 MIN PRN, Starting on Thu02/05/24 at 1512, Until Thu02/05/24 at 1636, Pain, Moderate to severe pain (6-10 out of 10), Hold for respiratory rate less than 10 per minute. Maximum dose 200 mcg over one hour, including OR administration. If ordered with HYDROmorphone or morphine, give HYDROmorphone or morphine first and use fentaNYL for breakthrough pain., PACU Recovery, Routine documented in this encounter Care Teams Smooth And Burr Worker Composites Relationship Specialty Start Date End Date [place] [address] [place] [address] PCP - General General Internal Medicine 08/04/22 documented as of this encounter
--- OUTSIDE RECORDS SUMMARY | 2024-04-22 00:20 | XMS_ITS | Encounter Summary ---
Author Organization [facility] [place] [address] Care Team Providers Care Card Mounter Name Role Phone Haylie Steward MD Primary Care Provider + [phone] Encounter Details Date Type Department Care Team (Latest Contact Info) Description 02/22/2024 Travel Social History Tobacco Use Types Packs/Day [...] from your doctor or pharmacy? Rarely 02/15/2024 [facility] Utilities Answer Date Recorded In the [...] were you homeless or living in a jail (including now)? No 02/15/2024 [facility] Inpatient Questions Answer Date Recorded Does Anyone Try to Keep You From Having Contact with Others or Doing Things Outside Your Home? no 02/05/2024 Feels Threatened by Someone no 08/2023 Feels Unsafe at Home or Work/School [...] EST Scheduled View Only Radiation Oncology at [address] [phone] 04/25/2024 8:30 AM EST Scheduled View Only Radiation Oncology at [address] [phone] 04/26/2024 3:00 PM EST Scheduled View Only Radiation Oncology at [address] [phone] 04/26/2024 3:30 PM EST Office Visit Radiation Oncology at [address] [address] Ofe Fonseca MD [facility] [place] [address] 04/28/2024 2:45 PM EST Scheduled View Only Radiation Oncology at [address] [phone] 04/29/2024 3:00 PM EST Scheduled View Only Radiation Oncology at [address] [address] 05/02/2024 3:45 PM EST Scheduled View Only Radiation Oncology at [address] [address] 05/03/2024 1:45 PM EST Scheduled View Only Radiation Oncology at [address] [phone] 05/03/2024 2:15 PM EST Office Visit Radiation Oncology at [address] [phone] Ofe Fonseca MD [facility] [place] [address] 05/05/2024 8:15 AM EST Scheduled View Only Radiation Oncology at [address] [address] 05/06/2024 12:30 PM EST Scheduled View Only Radiation Oncology at [address] [address] 05/09/2024 3:00 PM EST Scheduled View Only Radiation Oncology at [address] [phone] 05/10/2024 2:30 PM EST Scheduled View Only Radiation Oncology at [address] [address] 05/10/2024 3:15 PM EST Office Visit Radiation Oncology at [address] [address] Ofe Fonseca MD [facility] DR [facility] [address] 05/11/2024 2:45 PM EST Scheduled View Only Radiation Oncology at [address] [phone] 06/03/2024 3:30 PM EST Appointment Ultrasound at [place] [phone] Mira Hutchison [facility] [place] [address] 06/23/2024 4:00 PM EST Appointment Mammography/DXA at [place] [phone] Miryam Feliciano MD [facility] [place] [address] 07/12/2024 8:00 AM EDT Laboratory Appointment Lab [address] [place], [place] [phone] 07/12/2024 9:30 AM EDT Office Visit Nephrology Hypertension at [place] [phone] Sharmin Jean-Baptiste, [facility] [place] [address] 07/13/2024 10:30 AM EDT Laboratory Appointment Lab at [facility] [place] On[place] [address] [place] [phone] 07/13/2024 11:30 AM EDT Office Visit H[place] [phone] Salena Alvares, [facility] [place] [address] 07/13/2024 12:45 PM EDT Appointment Hematology and Oncology at [place] [phone] documented as of this encounter Visit Diagnoses Not on filedocumented in this encounter Care Teams Card Mounter Relationship Specialty Start Date End Date Haylie Steward MD [facility] [place] [address] PCP - General General Internal Medicine 08/04/22 documented as of this encounter
--- OUTSIDE RECORDS SUMMARY | 2024-04-22 00:20 | XMS_ITS | Encounter Summary ---
Author Organization [facility] [place] [address] Care Team Providers Care Sales Development Associate Name Role Phone Haylie Steward MD Primary Care Provider [phone] Encounter Details Date Type Department Care Team (Latest Contact Info) Description 02/01/2024 8:49 AM EDT Hospital Encounter [place]ography [place] [phone] Hailey Dawson MD [facility] [address] History of breast cancer Discharge Disposition: Home Social History Tobacco Use [...] things needed for daily living? No 01/20/2024 [facility] Inpatient Questions Answer Date Recorded Does Anyone [...] PM EDT documented as of this encounter Medications at Time of Discharge [...] 01/12/2024 03/23/2024 documented as of this encounter Plan of Treatment Upcoming Encounters Date Type Department Care Team (Latest Contact Info) Description 04/22/2024 9:45 AM EST Scheduled View Only Radiation Oncology at [address] [phone] 04/25/2024 8:30 AM EST Scheduled View Only Radiation Oncology at [address] [phone] 04/26/2024 3:00 PM EST Scheduled View Only Radiation Oncology at [address] [address] 04/26/2024 3:30 PM EST Office Visit Radiation Oncology at [address] [phone] fOe Fonseca MD [facility] [place] [address] 04/28/2024 2:45 PM EST Scheduled View Only Radiation Oncology at [address] [address] 04/29/2024 3:00 PM EST Scheduled View Only Radiation Oncology at [address] [address] 05/02/2024 3:45 PM EST Scheduled View Only Radiation Oncology at [address] [address] 05/03/2024 1:45 PM EST Scheduled View Only Radiation Oncology at [address] [address] 05/03/2024 2:15 PM EST Office Visit Radiation Oncology at [address] [address] Ofe Fonseca MD [facility] [place] [address] 05/05/2024 8:15 AM EST Scheduled View Only Radiation Oncology at [address] [address] 05/06/2024 12:30 PM EST Scheduled View Only Radiation Oncology at [address] [address] 05/09/2024 3:00 PM EST Scheduled View Only Radiation Oncology at [address] [address] 05/10/2024 2:30 PM EST Scheduled View Only Radiation Oncology at [address] [address] 05/10/2024 3:15 PM EST Office Visit Radiation Oncology at [address] [address] Ofe Fonseca MD [facility] [place] [address] 05/11/2024 2:45 PM EST Scheduled View Only Radiation Oncology at [address] [address] 06/03/2024 3:30 PM EST Appointment [place]tras[place] [phone] Mira Hutchison [employer] [facility] [place] [address] 06/23/2024 4:00 PM EST Appointment Mammography/DXA at [place] [phone] Miryam Feliciano MD [facility] [place] [address] 07/12/2024 8:00 AM EDT Laboratory Appointment Lab [address] [place] [phone] 07/12/2024 9:30 AM EDT Office Visit Nephrology [place] [phone] Sharmin Jean-Baptiste [facility] [place] [address] 07/13/2024 10:30 AM EDT Laboratory Appointment [place] [facility] [place] [address] [place] [phone] 07/13/2024 11:30 AM EDT Office Visit Hematology [place] [address] Salena Alvares APRN [facility] [place] [address] 07/13/2024 12:45 PM EDT Appointment Hematology [place] [phone] documented as of this encounter Procedures Procedure Name Priority Date/Time Associated Diagnosis Comments MAMMO MAGSEED PLACEMENT MULTIPLE LEFT Routine 02/01/2024 10:17 AM EDT History of breast cancer documented in this encounter Results * Mammo Magseed Placement Multiple Left (02/01/2024 10:17 AM EDT) WORKSTATION ID [id number] 1 RAD Anatomical Region Laterality Modality Breast [...] who have questions please contact the health life care planner that requested your imaging first. ? [facility] [address] [place], [place] [id number] Narrative 02/01/2024 1:27 PM EDT EXAMINATION: MAMMO [...] Hailey Dawson MD IMG MAMMO ORDERABLE S documented in this encounter Visit Diagnoses Diagnosis History of breast cancer Personal history of malignant neoplasm of breast documented in this encounter Administered Medications Inactive Administered Medications - up to 3 most recent administrations Medication Order MAR Action Action Date Dose Rate Site lidocaine (Xylocaine) 1% (10 mg/mL) injection 0-200 mg 0-200 mg (0-20 mL), Subcutaneous, ONCE, 1 dose, On 02/01/24 at 0945, Radiology Protocol Medication, Routine Given 02/01/2024 9:30 AM EDT 10 mg documented in this encounter Care Teams Sales Development Associate Relationship Specialty Start Date End Date Haylie tSeward MD [facility] [address] PCP - General General Internal Medicine 08/04/22 documented as of this encounter
--- OUTSIDE RECORDS SUMMARY | 2024-04-22 00:20 | XMS_ITS | Encounter Summary ---
Author Organization [facility] [place] [address] Care Team Providers Care Freelance Director Name Role Phone Haylie Steward MD Primary Care Provider + [phone] Encounter Details Date Type Department Care Team (Latest Contact Info) Description 02/15/2024 Travel Social History Tobacco Use Types Packs/Day [...] your doctor or pharmacy? Rarely 02/15/2024 [facility] Utilities Answer Date Recorded In the [...] were you homeless or living in a half-way (including now)? No 02/15/2024 [facility] Inpatient [...] EST Scheduled View Only Radiation Oncology at [address] [phone] 04/25/2024 8:30 AM EST Scheduled View Only Radiation Oncology at [address] [phone] 04/26/2024 3:00 PM EST Scheduled View Only Radiation Oncology at [address] [address] 04/26/2024 3:30 PM EST Office Visit Radiation Oncology at [address] [address] Ofe Fonseca MD [facility] [place] [address] 04/28/2024 2:45 PM EST Scheduled View Only Radiation Oncology at [address] [address] 04/29/2024 3:00 PM EST Scheduled View Only Radiation Oncology at [address] [address] 05/02/2024 3:45 PM EST Scheduled View Only Radiation Oncology at [address] [address] 05/03/2024 1:45 PM EST Scheduled View Only Radiation Oncology at [address] [address] 05/03/2024 2:15 PM EST Office Visit Radiation Oncology at [address] [phone] Ofe Fonseca MD [facility] RADIATION [place] [address] 05/05/2024 8:15 AM EST Scheduled View Only Radiation Oncology at [address] [address] 05/06/2024 12:30 PM EST Scheduled View Only Radiation Oncology at [address] [address] 05/09/2024 3:00 PM EST Scheduled View Only Radiation Oncology at [address] [address] 05/10/2024 2:30 PM EST Scheduled View Only Radiation Oncology at [address] [address] 05/10/2024 3:15 PM EST Office Visit Radiation Oncology at [address] [address] Ofe Fonseca MD [facility] [place] [address] 05/11/2024 2:45 PM EST Scheduled View Only Radiation Oncology at [address] [address] 06/03/2024 3:30 PM EST Appointment Ultrasound at [place] [phone] Mira Hutchison [facility] [place] [address] 06/23/2024 4:00 PM EST Appointment Mammography/DXA at [place] [phone] Miryam Feliciano MD [facility] [place] [place] [address] 07/12/2024 8:00 AM EDT Laboratory Appointment Lab [address] [place], [place] [phone] 07/12/2024 9:30 AM EDT Office Visit Nephrology Hypertension at [place] [phone] Sharmin Jean-Baptiste, [facility] [place] [address] 07/13/2024 10:30 AM EDT Laboratory Appointment Lab at [facility] [place] Hematology Oncology [address] [place] [phone] 07/13/2024 11:30 AM EDT Office Visit Hematology [place] [phone] Salena Alvares, [facility] [place] [address] 07/13/2024 12:45 PM EDT Appointment Hematology and Oncology at [place] [phone] documented as of this encounter Visit Diagnoses Not on filedocumented in this encounter Care Teams Freelance Director Relationship Specialty Start Date End Date Haylie Steward MD [facility] [place] [address] PCP - General General Internal Medicine 08/04/22 documented as of this encounter
--- OUTSIDE RECORDS SUMMARY | 2024-04-22 00:20 | XMS_ITS | Encounter Summary ---
Author Organization [place] [address] Care Team Providers Care Animal Feeder Name Role Phone Haylie Steward MD Primary Care Provider + [phone] Encounter Details Date Type Department Care Team (Late st Contact Info) Description 02/11/2024 Notes Only Hematology [place] [address] Miryam Feliciano MD [facility] [place] [address] Social History Tobacco Use Types Packs/Day Years [...] for daily living? No 01/20/2024 [facility] Inpatient Questions Answer Date Recorded Does Anyone [...] as of this encounter Progress Notes * Miryam Feliciano MD - 02/11/2024 7:45 PM EDT Please submit for Oncotype testing Node status: [x] Negative [] Micromets [] Node Positive 1-3 nodes [] Node Positive 4+ nodes ER [] Negative [x] Positive CT [] Negative [x] Positive HER2 [x] Negative [] Positive Menopausal status: [x] Pre [] Post [] Unknown Tumor size (in centimeters): 1.5cm ICD-10 code: C50.919 Do you want a specific sample tested? If so, please include specimen ID#: documented in this encounter Plan of Treatment Upcoming Encounters Date Type Department Care Team (Latest Contact Info) Description 04/22/2024 9:45 AM EST Scheduled View Only Radiation Oncology at [address] [phone] 04/25/2024 8:30 AM EST Scheduled View Only Radiation Oncology at [address] [phone] 04/26/2024 3:00 PM EST Scheduled View Only Radiation Oncology at [address] [address] 04/26/2024 3:30 PM EST Office Visit Radiation Oncology at [address] [address] Ofe Fonseca MD [facility] RADI[place] [address] 04/28/2024 2:45 PM EST Scheduled View Only Radiation Oncology at [address] [address] 04/29/2024 3:00 PM EST Scheduled View Only Radiation Oncology at [address] [address] 05/02/2024 3:45 PM EST Scheduled View Only Radiation Oncology at [address] [address] 05/03/2024 1:45 PM EST Scheduled View Only Radiation Oncology at [address] [address] 05/03/2024 2:15 PM EST Office Visit Radiation Oncology at [address] [address] Ofe Fonseca MD [facility] [place] [address] 05/05/2024 8:15 AM EST Scheduled View Only Radiation Oncology at [address] [address] 05/06/2024 12:30 PM EST Scheduled View Only Radiation Oncology at [address] [address] 05/09/2024 3:00 PM EST Scheduled View Only Radiation Oncology at [address] [address] 05/10/2024 2:30 PM EST Scheduled View Only Radiation Oncology at [address] [address] 05/10/2024 3:15 PM EST Office Visit Radiation Oncology at [address] [address] Ofe Fonseca MD [facility] [address] [place] [address] 05/11/2024 2:45 PM EST Scheduled View Only Radiation Oncology at [address] [address] 06/03/2024 3:30 PM EST Appointment Ultrasound at [place] [address] Mira Hutchison, [facility] [place] [address] 06/23/2024 4:00 PM EST Appointment Mammography/DXA at [place] [address] Miryam Feliciano MD [facility] [place] [address] 07/12/2024 8:00 AM EDT Laboratory Appointment Lab [address] [place] [address] 07/12/2024 9:30 AM EDT Office Visit Nephrology Hypertension at [place] [address] Sharmin Jean-Baptiste, [facility] [place] [address] 07/13/2024 10:30 AM EDT Laboratory Appointment Lab at [facility] [place] Hematology Oncology [address] [place], [place] [phone] 07/13/2024 11:30 AM EDT Office Visit Hematology and Oncology at [place] [phone] Salena Alvares [facility] [place] [address] 07/13/2024 12:45 PM EDT Appointment Hematology and Oncology at [place] [phone] documented as of this encounter Visit Diagnoses Not on filedocumented in this encounter Care Teams Animal Feeder Relationship Specialty Start Date End Date Haylie Steward MD [facility] [address] PCP - General General Internal Medicine 08/04/22 documented as of this encounter
--- OUTSIDE RECORDS SUMMARY | 2024-04-22 00:20 | XMS_ITS | Encounter Summary ---
Author Organization [facility] [place] [address] Care Team Providers Care Betting Clerks Name Role Phone Haylie Steward MD Primary Care Provider [phone] Encounter Details Date Type Department Care Team (Late st Contact Info) Description 02/29/2024 2:30 PM EDT - 02/29/2024 3:48 PM EDT Surgery [facility] [place] [address] Mignon Dawson MD [facility] [place] [address] MASTECTOMY PARTIAL (WRVU 10.13) Social History Tobacco [...] from your doctor or pharmacy? Rarely 02/15/2024 [place] Utilities Answer Date Recorded In the past [...] any time in the past 12 m [facility], were you homeless or living in a correction (including now)? No 02/15/2024 DH IPV Inpatient [...] Sign Reading Time Taken Comments Blood Pressure 148/86 02/29/2024 1:25 PM EDT Pulse 69 02/29/2024 1:25 PM EDT Temperature 37 ??C (98.6 ??F) 02/29/2024 1:25 PM EDT Respiratory Rate 14 02/29/2024 1:25 PM EDT Oxygen Saturation 99% 02/29/2024 1:25 PM EDT Inhaled Oxygen Concentration - - Weight 62.7 kg (138 lb 4.8 oz) 02/29/2024 1:00 P M EDT Height 157.5 cm (5' 2) 02/29/2024 1:00 PM EDT Body Mass Index 25.3 02/29/2024 1:00 PM EDT documented in this encounter Discharge Instructions * Discharge Instructions* Lilian Lozano, RN - 02/29/2024 7:18 AM EDT General Anesthesia Discharge Instructions Go home and rest. You may be sleepy for several hours. Take it easy as sudden position changes may cause nausea and/or dizziness. Use caution on stairs. Do not smoke if you are alone. Follow a light to regular diet as [...] closest emergency room or call the hospital drier operator head at [phone] and ask for physician green promotions specialist covering for your physician. Questions or problems after 5pm or on a weekend: Call the [facility] drier operator head at and ask for the physician green promotions specialist covering for your doctor. You received 15 mg of Toradol at 2 pm. Your next dose should not be taken before 8 pm today. Okay to shower 24 hours Activity as tolerated Call [phone] with any questions Do not soak incision for 2 weeks Will call with pathology results when available Ice pack to breast as needed Okay to use tylenol and/or ibuprofen as needed for pain (Recommend taking 650 mg of tylenol and 400 mg ibuprofen every 6 hours as needed) Wear bra for comfort (you may want to wear 24/11 until swelling improves) I documented in this encounter Medications at Time of Discharge Medication Sig Dispensed Refills Start Date End Date cariprazine (Vraylar) 1.5 mg capsule 03/23/2021 Bifidobacterium infantis (ALIGN) 4 mg Capsule Take [...] 01/12/2024 03/23/2024 documented as of this encounter Progress Notes * Lilian Lozano RN - 02/29/2024 4:44 PM EDT Pt arrived to pacu awake and with unsupported airway on 6L simple mask O2. Bra with fluffy gauze inplace, no drainage present. Incisions appear c/d/I. Pt is reporting no nausea but does have 4/10 pain to L breast. Applied ice pack and gave PO Tylenol. Tolerated sips of water. Discharge instructions and medications reviewed with patient and escort. All questions answered andwritten copy sent home with patient. Patient ambulated to car for discharge accompanied by [facility] staff member. documented in this encounter H&P Notes * Mignon Dawson MD - 02/29/2024 7:19 AM EDT Patient Name: Nataliya Morfin Patient Age: 49 y.o. Birthdate: 1975 Admit date: (Not on [...] was suspicious and biopsy confirmed low grade ER/WY+ IDC , her2 negative. Given breast density, [...] salivary gland cancer SH: non smoker. 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 . [...] radiographic stage I IDC of the left breast.stable for re-excision including lesion 3 given radiographic appearance is similar to lesion 2 which was unexpectedly upgraded. documented in this encounter Miscellaneous Notes * Op Note - Mignon Dawson MD - 02/29/2024 2:27 PM EDT [facility] Operative Note Patient Name: Nataliya Morfin : [id number] MR#: [id number] Case Date: 02/29/2024 Surgeon: Surgeons and Role: * Mignon Dawson MD - Primary * Yudith Walter MD - Resident - Assisting Preoperative diagnosis: BREAST CANCER Postoperative diagnosis: BREAST CANCER Procedure(s) (LRB): MASTECTOMY PARTIAL (WRVU 10.13) (Left) MODIFIER , RE-EXCISION (N/A) MODIFIER MAGSEED (Left) Anesthesia: General Estimated Blood Loss: 22 mL Specimens removed during surgery: ID Type Source Tests Collected by Time Destination 1 : Left breast partial mastectomy lesion 3 Tissue Breast, Left SURGICAL PATHOLOGY Yudy Dawson MD 02/29/2024 1516 2 : Lateral Margin of Left Breast Lesion 1 Tissue Breast, Left, Margin SURGICAL PATHOLOGY Mignon Dawson MD 02/29/2024 1520 3 : Posterior Margin of Left Breast Lesion 1 Tissue Breast, Left, Margin SURGICAL PATHOLOGY Mignon Dawson MD 02/29/2024 1523 Surgical Closure: Primary Closure - skin incision [...] this patient.) HPI/Surgical Indications: Nataliya is a 49 yo female with left breast cancer. She returns for positivemargins after partial mastectomy of lesion 1. 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 Plan for excision of lesion 3given similarity in features. Procedure Description: Operative Procedure: Nataliya was admitted through Same-Day Surgery. She was brought to the Operating Room and laid supine on the operating table. Sedatives were administered intravenously and an LMA was placed. The left breast was prepped and draped in sterile fashion. Time-out confirmed the patient's identity, the correct surgical site, and the administration of prophylactic antibiotics. Once the time out had been confirmed, attention was turned to the breast. I then re-opened the incision in the infra-mammary fold. I identified the biopsy cavity and excised the posterior margin (including fascia of the pec major) and lateral marging. Guided by the localizing seed, I then made a counter incision on the areolar border. I widely excised a circumferential core of tissue. The tissue was inked on the anatomic margins and sent to Radiology where the seed was confirmed to be in the surgical specimen. Of note, the inferior margin of this excision was the superior margin of the prior cavity. The wound was irrigated and hemostasis achieved. Biopsy cavity clips were placed. Partial breast reconstruction was undertaken, and the wound was closed in layers. Sterile dressings were applied. Surgical Infection Prevention Bundle Used? N/A Attestation: Case Date: 02/29/2024 I was present and I participated during the entire procedure (does not need to include opening and closing). MIGNON DAWSON MD 02/29/2024 documented in this encounter Plan of Treatment Upcoming Encounters Date Type Department Care Team (Latest Contact Info) Description 04/22/2024 9:45 AM EST Scheduled View Only Radiation Oncology at [address] [address] 04/25/2024 8:30 AM EST Scheduled View Only Radiation Oncology at [address] [address] 04/26/2024 3:00 PM EST Scheduled View Only Radiation Oncology at [address] [address] 04/26/2024 3:30 PM EST Office Visit Radiation Oncology at [address] [address] Ofe Fonseca MD [facility] [place] [address] 04/28/2024 2:45 PM EST Scheduled View Only Radiation Oncology at [address] [address] 04/29/2024 3:00 PM EST Scheduled View Only Radiation Oncology at [address] [address] 05/02/2024 3:45 PM EST Scheduled View Only Radiation Oncology at [address] [address] 05/03/2024 1:45 PM EST Scheduled View Only Radiation Oncology at [address] [address] 05/03/2024 2:15 PM EST Office Visit Radiation Oncology at [address] [address] Ofe Fonseca MD [facility] [place] [address] 05/05/2024 8:15 AM EST Scheduled View Only Radiation Oncology at [address] [address] 05/06/2024 12:30 PM EST Scheduled View Only Radiation Oncology at [address] [address] 05/09/2024 3:00 PM EST Scheduled View Only Radiation Oncology at [address] [address] 05/10/2024 2:30 PM EST Scheduled View Only Radiation Oncology at [address] [address] 05/10/2024 3:15 PM EST Office Visit Radiation Oncology at [address] [address] Ofe Fonseca MD [facility] [place] [address] 05/11/2024 2:45 PM EST Scheduled View Only Radiation Oncology at [address] [phone] 06/03/2024 3:30 PM EST [place] [address] Mira Hutchison APRN [facility] [place] [address] 06/23/2024 4:00 PM EST Appointment Mammography/[place] [phone] Miryam Feliciano MD [facility] [place] [address] 07/12/2024 8:00 AM EDT Laboratory Appointment Lab [address] [address] 07/12/2024 9:30 AM EDT Office Visit Nephrology Hypertension at [place] [phone] Sharmin Jean-Baptiste, [facility] [place] [address] 07/13/2024 10:30 AM EDT Laboratory Appointment Lab at [facility] Hematology Oncology [address] [place], [place] [phone] 07/13/2024 11:30 AM EDT Office Visit Hematology and Oncology at [place] [phone] Salena Alvares, [facility] [place] [address] 07/13/2024 12:45 PM EDT Appointment Hematology [place] [phone] documented as of this encounter Procedures Procedure Name Priority Date/Time Associated Diagnosis Comments XR FLUORO NO RAD <1HR - OR USE Routine 02/29/2024 3:25 PM EDT MAMMO SPECIMEN LEFT Routine 02/29/2024 3 :20 PM EDT SURGICAL PATHOLOGY Routine 02/29/2024 3: 16 PM EDT MODIFIER MAGSEED Yes 02/29/2024 2:07 PM EDT BREAST CANCER MODIFIER , RE-EXCISION Yes 02/29/2024 2:07 PM EDT BREAST CANCER Mastectomy Partial (17423) Yes 02/29/2024 2:07 PM EDT BREAST CANCER documented in this encounter Results * XR Fluoro No Rad <1Hr - OR Use (02/29/2024 3:25 PM EDT) Narrative Dicom, Auditing User - 02/29/2024 3:58 PM EDT This exam is auto-finalizing. No interpretation was done. Mignon Dawson MD IMG FLUORO ORDERABL ES * Mammo Specimen Left (02/29/2024 3:20 PM EDT) WORKSTATION ID Radio [id number] RAD Anatomical Region Laterality Modality Breast [...] who have questions please contact the health career development coordinator/teacher that requested your imaging first. ? [facility] [address], [place] ??[address] Mignon Dawson MD IMG MAMMO ORDERABLE S * Surgical Pathology (02/29/2024 3:16 PM EDT) Case Report Surgical Pathology Report ? Case: [id number] ? Authorizing Provider: ??Mignon Dawson MD ? Collected: ? 02/29/2024 1516 ? Ordering Location: ? [facility] ??Received: ?02/29/2024 1538 ? [facility] ? Hospital ? Pathologist: ? Sil Maguire MD ? Specimens: ?? A) - Breast, Left, Left breast partial mastectomy lesion 3 ? B) - Breast, Left, Margin, Lateral Margin of Left Breast Lesion 1 ? C) - Breast, Left, Margin, Posterior Margin of Left Breast Lesion 1 ? 03/15/2024 4:06 PM [facility] Final Diagnosis A. Breast, Left, [...] negative for malignancy. 03/15/2024 4:06 PM [facility] Additional Studies Task ID IHC/Special Stains Result A2-2 Calponin Positive A5-2 Calponin Positive A10-2 Calponin Positive A13-2 Calponin Positive A14-2 Calponin Positive A15-2 Calponin Positive B3-2 p63 Positive B3-3 Calponin Positive C2-2 CK5 Positive in area of interest C2-3 ER (Clone SP1) Patchy positive in area of interest 03/15/2024 4:06 PM [facility] Disclaimer(s) Formalin-fixed, paraffin-embedded tissue sections [...] other diagnostic tests. 03/15/2024 4:06 PM [facility] Clinical Information A. Breast, Left, Left breast partial mastectomy lesion 3 Known malignancy - as specified in Clinical Information BREAST CANCER Left breast partial mastectomy lesion 3 03/15/2024 4:06 PM [facility] Gross Description A. Breast, Left, [...] separate fragmented tissue 03/15/2024 4:06 PM [facility] Result Note Routine 03/15/2024 4:06 PM [facility] Tissue LEFT BREAST STRUCTURE / [...] Posterior Margin of Left Breast Lesion 1 Mignon Dawson MD PATHOLOGY/CYTOLOGY ORDERABLES [facility] [place] [address] documented in this encounter Visit Diagnoses Not on filedocumented in this encounter Administered Medications Inactive Administered Medications - up to 3 most recent administrations Medication Order MAR Action Action Date Dose Rate Site acetaminophen (Tylenol) tablet 650 mg 650 mg, Oral, EVERY 4 HOURS PRN, Starting on Thu02/29/24 at 1537, Until Thu02/29/24 at 1848, Pain, Maximum dose of acetaminophen is 4000 mg from all sources in 24 hours. When ordered for pain, acetaminophen should be given even when other ordered pain medications are indicated. , Routine Given 02/29/2024 4:11 PM EDT 650 mg BUPivacaine (pf) (Marcaine) (5 mg/mL) 0.5% injection PRN, Starting on Thu02/29/24 at 1428, Until Thu02/29/24 at 1848, Intra-Operative (Intra-Procedure), Routine Given 02/29/2024 3:30 PM EDT 10 mLs 19- Surgical Site Given 02/29/2024 2:48 PM EDT 1 mL 19 - Surgical Site Given 02/29/2024 2:28 PM EDT 1 mL 19 - Surgical Site lidocaine (pf) (Xylocaine) (10 mg/mL) 1% injection PRN, Starting on Thu02/29/24 at 1430, Until Thu02/29/24 at 1848, Intra-Operative (Intra-Procedure), Routine Given 02/29/2024 3:31 PM EDT 10 mLs 19- Surgical Site Given 02/29/2024 2:48 PM EDT 1 mL 19 - Surgical Site Given 02/29/2024 2:28 PM EDT 1 mL 19 - Surgical Site documented in this encounter Active and Recently Administered Medications Times are shown in EDT. Scheduled Medication Order 02/27/2024 02/28/2024 02/29/2024 ceFAZolin (Ancef) (100 mg/mL) injection solution 2 g (COMPLETED) 2 g, Intravenous, ONCE, 1 dose, On Thu02/29/24 at 1330, To be prepared by and administered by Anesthesia. Reconstitute each ceFAZolin 1 gram vial with 10 mL of NS or SWFI = 100 mg/mL May inject IV without further dilution over 3 to 5 minutes., Day of Surgery (Day of Procedure), Indication for (Active or Suspected): Prophylaxis 1419 (New Bag - Prov ider: Ann Pugh CRNA) Continuous Medication Order 02/27/2024 02/28/2024 02/29/2024 lactated ringers infusion (CANCELED) 1,000 mL, at 100 mL/hr, Intravenous, CONTINUOUS, Starting on Thu02/29/24 at 1330, Until Thu02/29/24 at 1646, Day of Surgery (Day of Procedure) 1405 (New Bag - Prov ider: Ann Pugh CRNA)1436 (Anesthesia Volume Adjustment - Provider: Ann Pugh CRNA)1556 (Anesthesia Volume Adjustment - Provider: Ann Pugh CRNA) PRN Medication Order 02/27/2024 02/28/2024 02/29/2024 acetaminophen (Tylenol) tablet 650 mg 650 mg, Oral, EVERY 4 HOURS PRN, Starting on Thu02/29/24 at 1537, Until Thu02/29/24 at 1848, Pain, Maximum dose of acetaminophen is 4000 mg from all sources in 24 hours. When ordered for pain, acetaminophen should be given even when other ordered pain medications are indicated. , Routine 1611 (Given - Provid er: Liilan Lozano RN) BUPivacaine (pf) (Marcaine) (5 mg/mL) 0.5% injection (CANCELED) PRN, Starting on Thu02/29/24 at 1428, Until Thu02/29/24 at 1848, Intra-Operative (Intra-Procedure), Routine 1428 (Given - Provid er: Mignon Dawson MD - Comment: 30mL 0.5% Bupivicaine mixed 1:1 with 30mL 1% Lidocaine; total given 2 mL)1448 (Given - Provider: Mignon Dawson MD - Comment: 30mL 0.5% Bupivicaine mixed 1:1 with 30mL 1% Lidocaine; total given 4 mL)1530 (Given - Provider: Mignon Dawson MD - Comment: 30mL 0.5% Bupivicaine mixed 1:1 with 30mL 1% Lidocaine; total given 24 mL) lidocaine (pf) (Xylocaine) (10 mg/mL) 1% injection (CANCELED) PRN, Starting on Thu02/29/24 at 1430, Until Thu02/29/24 at 1848, Intra-Operative (Intra-Procedure), Routine 1428 (Given - Provid er: Mignon Dawson MD - Comment: 30mL 0.5% Bupivicaine mixed 1:1 with 30mL 1% Lidocaine; total given 2 mL)1448 (Given - Provider: Mignon Dawson MD - Comment: 30mL 0.5% Bupivicaine mixed 1:1 with 30mL 1% Lidocaine; total given 4 mL)1531 (Given - Provider: Mignon Dawson MD - Comment: 30mL 0.5% Bupivicaine mixed 1:1 with 30mL 1% Lidocaine; total given 24 mL) No Frequency Medication Order 02/27/2024 02/28/2024 02/29/2024 ceFAZolin (Ancef) 1 gram injection 1 dose, Starting on Thu02/29/24 at 1310, Until Thu02/29/24 at 1848, Maya Solomon: cabinet override 1315 (Due) documented in this encounter Care Teams Betting Clerks Relationship Specialty Start Date [place] [address] PCP - General General Internal Medicine 08/04/22 documented as of this encounter
--- OUTSIDE RECORDS SUMMARY | 2024-04-22 00:20 | XMS_ITS | Encounter Summary ---
Author Organization [facility] [place] [address] Care Team Providers Care Stagecraft Professor Name Role Phone Haylie Steward MD Primary Care Provider + [phone] Encounter Details Date Type Department Care Team (Latest Contact Info) Description 02/01/2024 Travel Social History Tobacco Use Types Packs/Day [...] Scheduled View Only Radiation Oncology at [address] [address] 04/25/2024 8:30 AM EST Scheduled View Only Radiation Oncology at [address] [address] 04/26/2024 3:00 PM EST Scheduled View Only Radiation Oncology at [address] [address] 04/26/2024 3:30 PM EST Office Visit Radiation Oncology at [address] [address] Ofe Fonseca MD [facility] [address] [place] [address] 04/28/2024 2:45 PM EST Scheduled View Only Radiation Oncology at [address] [address] 04/29/2024 3:00 PM EST Scheduled View Only Radiation Oncology at [address] [address] 05/02/2024 3:45 PM EST Scheduled View Only Radiation Oncology at [address] [address] 05/03/2024 1:45 PM EST Scheduled View Only Radiation Oncology at [address] [address] 05/03/2024 2:15 PM EST Office Visit Radiation Oncology at [address] [address] Ofe Fonseca MD [facility] [place] [address] 05/05/2024 8:15 AM EST Scheduled View Only Radiation Oncology at [address] [address] 05/06/2024 12:30 PM EST Scheduled View Only Radiation Oncology at [address] [address] 05/09/2024 3:00 PM EST Scheduled View Only Radiation Oncology at [address] [address] 05/10/2024 2:30 PM EST Scheduled View Only Radiation Oncology at [address] [address] 05/10/2024 3:15 PM EST Office Visit Radiation Oncology at [address] [address] Ofe Fonseca MD [facility] [place] [address] 05/11/2024 2:45 PM EST Scheduled View Only Radiation Oncology at [address] [address] 06/03/2024 3:30 PM EST Appointment [place] [phone] Mira Hutchison APRN [facility] [place] [address] 06/23/2024 4:00 PM EST Appointment Mammography/[place] [phone] Miryam Feliciano MD [facility] [place] [address] 07/12/2024 8:00 AM EDT Laboratory Appointment Lab [address] [address] 07/12/2024 9:30 AM EDT Office Visit Nephrology [place] [address] Sharmin Jean-Baptiste, [facility] [place] [address] 07/13/2024 10:30 AM EDT Laboratory Appointment Lab at [facility] [place] [address] [place] [address] 07/13/2024 11:30 AM EDT Office Visit Hematology and Oncology at [place] [phone] Salena Alvares, [facility] [place] [address] 07/13/2024 12:45 PM EDT Appointment Hematology and Oncology at [place] [address] documented as of this encounter Visit Diagnoses Not on filedocumented in this encounter Care Teams Stagecraft Professor Relationship Specialty Start Date End [place] [address] PCP - General General Internal Medicine 08/04/22 documented as of this encounter
--- OUTSIDE RECORDS SUMMARY | 2024-04-22 00:20 | XMS_ITS | Encounter Summary ---
Author Organization [facility] [place] [address] Care Team Providers Care Medication Assistant Name Role Phone Haylie Steward MD Primary Care Provider + [phone] Encounter Details Date Type Department Care Team (Late st Contact Info) Description 02/04/2024 Telephone [place] [phone] Glendy Tovar, RN Social History Tobacco Use Types Packs/Day [...] things needed for daily living? No 01/20/2024 IPV Inpatient Questions Answer Date Recorded Does [...] Scheduled View Only Radiation Oncology at [address] [address] 04/25/2024 8:30 AM EST Scheduled View Only Radiation Oncology at [address] [address] 04/26/2024 3:00 PM EST Scheduled View Only Radiation Oncology at [address] [address] 04/26/2024 3:30 PM EST Office Visit Radiation Oncology at [address] [address] Ofe Fonseca MD [facility] [place] [address] 04/28/2024 2:45 PM EST Scheduled View Only Radiation Oncology at [address] [address] 04/29/2024 3:00 PM EST Scheduled View Only Radiation Oncology at [address] [address] 05/02/2024 3:45 PM EST Scheduled View Only Radiation Oncology at [address] [address] 05/03/2024 1:45 PM EST Scheduled View Only Radiation Oncology at [address] [address] 05/03/2024 2:15 PM EST Office Visit Radiation Oncology at [address] [address] Ofe Fonseca MD [facility] [place] [address] 05/05/2024 8:15 AM EST Scheduled View Only Radiation Oncology at [address] [address] 05/06/2024 12:30 PM EST Scheduled View Only Radiation Oncology at [address] [address] 05/09/2024 3:00 PM EST Scheduled View Only Radiation Oncology at [address] [address] 05/10/2024 2:30 PM EST Scheduled View Only Radiation Oncology at [address] [address] 05/10/2024 3:15 PM EST Office Visit Radiation Oncology at [address] [address] Ofe Fonseca MD [facility] DR [place] [address] 05/11/2024 2:45 PM EST Scheduled View Only Radiation Oncology at [address] [address] 06/03/2024 3:30 PM EST Appointment Ultrasound at [place] [phone] Mira Hutchison APRN [facility] [place] [address] 06/23/2024 4:00 PM EST Appointment Mammography/[place] [address] Miryam Feliciano MD [facility] [place] [address] 07/12/2024 8:00 AM EDT Laboratory Appointment Lab [address] [place] [phone] 07/12/2024 9:30 AM EDT Office Visit Nephrology Hypertension at [place] [address] Sharmin Jean-Baptiste, [facility] [place] [address] 07/13/2024 10:30 AM EDT Laboratory Appointment Lab [place] [facility] On[place] [address] [place] [address] 07/13/2024 11:30 AM EDT Office Visit Hematology [place] [address] Salena Alvares, [facility] [address] [place] [address] 07/13/2024 12:45 PM EDT Appointment Hematology [place] [address] documented as of this encounter Visit Diagnoses Not on filedocumented in this encounter Care Teams Medication Assistant Relationship Specialty Start Date [place] [address] PCP - General General Internal Medicine 08/04/22 documented as of this encounter
--- OUTSIDE RECORDS SUMMARY | 2024-04-22 00:20 | XMS_ITS | Encounter Summary ---
Author Organization [facility] [place] [address] Care Team Providers Care Weaving Supervisor Name Role Phone Haylie Steward MD Primary Care Provider + [phone] Encounter Details Date Type Department Care Team (Late st Contact Info) Description 03/01/2024 Telephone [place] [phone] Danelle Davis, RN Social History Tobacco Use Types Packs/Day [...] from your doctor or pharmacy? Rarely 02/15/2024 [facility] Utilities Answer Date Recorded In the past 12 months has [facility] [employer], gas, oil, or water [employer] threatened to shut off services in your [...] any time in the past 12 m [facility], were you homeless or living in a [...] encounter Miscellaneous Notes * Telephone Encounter - Danelle Davis RN - 03/01/2024 11:40 AM EDT Received a VMM from Nataliya wanting to confirm if it was okay for her to use deodorant following her procedure with Dr. Dawson yesterday. Per Dr. Dawson I called Nataliya back to inform her that is was okay to use deodorant. Nataliya was appreciative of my call. documented in this encounter Plan of Treatment Upcoming Encounters Date Type Department Care Team (Latest Contact Info) Description 04/22/2024 9:45 AM EST Scheduled View Only Radiation Oncology at [address] [address] 04/25/2024 8:30 AM EST Scheduled View Only Radiation Oncology at [address] [phone] 04/26/2024 3:00 PM EST Scheduled View Only Radiation Oncology at [address] [address] 04/26/2024 3:30 PM EST Office Visit Radiation Oncology at [address] [address] Ofe Fonseca MD [facility] [place] [address] 04/28/2024 2:45 PM EST Scheduled View Only Radiation Oncology at [address] [address] 04/29/2024 3:00 PM EST Scheduled View Only Radiation Oncology at [address] [address] 05/02/2024 3:45 PM EST Scheduled View Only Radiation Oncology at [address] [address] 05/03/2024 1:45 PM EST Scheduled View Only Radiation Oncology at [address] [address] 05/03/2024 2:15 PM EST Office Visit Radiation Oncology at [address] [address] Ofe Fonseca MD [facility] [place] [address] 05/05/2024 8:15 AM EST Scheduled View Only Radiation Oncology at [address] [address] 05/06/2024 12:30 PM EST Scheduled View Only Radiation Oncology at [address] [address] 05/09/2024 3:00 PM EST Scheduled View Only Radiation Oncology at [address] [address] 05/10/2024 2:30 PM EST Scheduled View Only Radiation Oncology at [address] [address] 05/10/2024 3:15 PM EST Office Visit Radiation Oncology at [address] [address] Ofe Fonseca MD [facility] [place] [address] 05/11/2024 2:45 PM EST Scheduled View Only Radiation Oncology at [address] [address] 06/03/2024 3:30 PM EST Appointment [place] [address] Mira Hutchison [facility] [place] [address] 06/23/2024 4:00 PM EST Appointment Mammography/DXA at [place] [phone] Miryam Feliciano MD [facility] [place] [address] 07/12/2024 8:00 AM EDT Laboratory Appointment Lab [address] [place] [phone] 07/12/2024 9:30 AM EDT Office Visit Nephrology Hypertension at [place] [phone] Sharmin Jean-Baptiste [facility] [place] [address] 07/13/2024 10:30 AM EDT Laboratory Appointment Lab [place] [facility] [place] [address] [place] [phone] 07/13/2024 11:30 AM EDT Office Visit Hematology [place] [address] Salena Alvares APRN [facility] [place] [address] 07/13/2024 12:45 PM EDT Appointment Hematology [place] [address] documented as of this encounter Visit Diagnoses Not on filedocumented in this encounter Care Teams Weaving Supervisor Relationship Specialty Start Date [place] [address] PCP - General General Internal Medicine 08/04/22 documented as of this encounter
--- OUTSIDE RECORDS SUMMARY | 2024-04-22 00:20 | XMS_ITS | Encounter Summary ---
Author Organization [facility] [place] [address] Care Team Providers Care Ballet Company Member Name Role Phone Haylie Steward MD Primary Care Provider [phone] Encounter Details Date Type Department Care Team (Latest Contact Info) Description 02/05/2024 11:12 AM EDT - 02/05/2024 4:30 PM EDT Hospital Encounter [place] [address] Mignon Dawson MD [facility] [place] [address] Discharge Disposition: Home Social History Tobacco Use [...] Sign Reading Time Taken Comments Blood Pressure 158/79 02/05/2024 3:45 PM EDT Pulse 68 02/05/2024 3:45 PM EDT Temperature 36 ??C (96.8 ??F) 02/05/2024 3:0 5 PM EDT warm blankets applied Respiratory Rate 20 02/05/2024 3:30 PM EDT Oxygen Saturation 100% 02/05/2024 3:4 5 PM EDT Inhaled Oxygen Concentration - - Weight 62.1 kg (137 lb) 02/05/2024 12:1 0 PM EDT Height 157.5 cm (5' 2) 02/05/2024 12:1 0 PM EDT Body Mass Index 25.06 02/05/2024 12:10 PM EDT documented in this encounter Discharge Instructions * Discharge Instructions* Lynette Almonte RN - 02/05/2024 10:39 AM EDT Okay to shower 24 hours Activity as tolerated Call [phone] with any questions Do not soak incision [...] closest emergency room or call the hospital soaking room operator at [phone] and ask for physician filteration operator covering for your physician. Questions or problems after 5pm or on a weekend: Call the [facility] soaking room operator at and ask for the physician filteration operator covering for your doctor. 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 Given breast density, [...] salivary gland cancer SH: non smoker. 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 . [...] Dawson MD - 02/05/2024 1:40 PM EDT [facility] Operative Note Patient Name: Nataliya Morfin : [id number] MR#: [id number] Case Date: 02/05/2024 Surgeon: Surgeons and Role: [...] Dawson MD 02/05/2024 1430 3 : Left Caldwell Node Tissue Caldwell Lymph Node SURGICAL PATHOLOGY Mignon Dawson MD [...] EST Scheduled View Only Radiation Oncology at [address] [address] 04/25/2024 8:30 AM EST Scheduled View Only Radiation Oncology at [address] [address] 04/26/2024 3:00 PM EST Scheduled View Only Radiation Oncology at [address] [address] 04/26/2024 3:30 PM EST Office Visit Radiation Oncology at [address] [address] Ofe Fonseca MD [facility] [place] [address] 04/28/2024 2:45 PM EST Scheduled View Only Radiation Oncology at [address] [address] 04/29/2024 3:00 PM EST Scheduled View Only Radiation Oncology at [address] [address] 05/02/2024 3:45 PM EST Scheduled View Only Radiation Oncology at [address] [address] 05/03/2024 1:45 PM EST Scheduled View Only Radiation Oncology at [address] [address] 05/03/2024 2:15 PM EST Office Visit Radiation Oncology at [address] [address] Ofe Fonseca MD [facility] [place] [address] 05/05/2024 8:15 AM EST Scheduled View Only Radiation Oncology at [address] [address] 05/06/2024 12:30 PM EST Scheduled View Only Radiation Oncology at [address] [address] 05/09/2024 3:00 PM EST Scheduled View Only Radiation Oncology at [address] [address] 05/10/2024 2:30 PM EST Scheduled View Only Radiation Oncology at [address] [address] 05/10/2024 3:15 PM EST Office Visit Radiation Oncology at [address] [address] Ofe Fonseca MD [facility] [place] [address] 05/11/2024 2:45 PM EST Scheduled View Only Radiation Oncology at [address] [address] 06/03/2024 3:30 PM EST [place] [address] Mira Hutchison ORDER PICKER [facility] [place] [address] 06/23/2024 4:00 PM EST Appointment Mammography/DXA at [place] [phone] Miryam Feliciano MD [facility] [place] [address] 07/12/2024 8:00 AM EDT Laboratory Appointment Lab [place] [phone] 07/12/2024 9:30 AM EDT Office Visit Nephrology Hypertension at [place] [phone] Sharmin Jean-Baptiste ORDER PICKER [facility] [place] [address] 07/13/2024 10:30 AM EDT Laboratory Appointment Lab at [facility] Hematology Oncology [address] [place] [phone] 07/13/2024 11:30 AM EDT Office Visit Hematology [place] [address] Salena Alvares APRN [facility] DR MEDICAL ONCOLOGY [place] [phone] 07/13/2024 12:45 PM EDT Appointment Hematology [place] [address] documented as of this encounter Procedures Procedure Name Priority Date/Time Associated Diagnosis Comments SURGICAL PATHOLOGY Routine 02/05/2024 2: 03 PM EDT MODIFIER MAGSEED Yes 02/05/2024 1:12 PM EDT breast cancer Intraop Caldwell Lymph Id W/Dye Injection (85882) Yes 02/05/2024 1:12 PM EDT breast cancer Bx/Remv, Lymph Node, Deep Axill ([id number]) Yes 02/05/2024 1:12 PM EDT breast cancer Mastectomy Partial ([id number]) Yes 02/05/2024 1:12 PM EDT breast cancer documented in this encounter Results * Surgical Pathology (02/05/2024 2:03 PM EDT) Case Report Surgical Pathology Report ? Case: [id number] ? Authorizing Provider: ??Mignon Dawson MD ? Collected: ? 02/05/2024 1403 ? Ordering Location: ? [facility] ??Received: ?02/05/2024 1455 ? [facility] ? Hospital ? Pathologist: ? Tait Wilkins, DO ? Specimens: ?? A) - Breast, Left, left partial breast mastectomy ? B) - Breast, Left, left breast tissue lesion 1 ? C) - Caldwell Lymph Node, Left Caldwell Node ? 02/18/2024 11:55 AM EDT [facility] Final Diagnosis A. Breast, left. [...] negative for malignancy. (0/2) 02/18/2024 11:55 AM T [facility] Synoptic Report INVASIVE CARCINOMA OF THE [...] (sentinel and non-sentinel): ?2 ? Number of Caldwell Nodes Examined: ?2 pTNM CLASSIFICATION (AJCC 8th [...] N Suffix: ?(sn) 02/18/2024 11:55 AM EDT [facility] Clinical Information A. Breast, Left, left partial breast mastectomy *Other - as specified in Clinical Information Left partial breast mastectomy Clin info-breast cancer B. Breast, Left, left breast tissue lesion 1 *Other - as specified in Clinical Information left breast tissue lesion 1 Clin info-Breast cancer C. Caldwell Lymph Node, Left Caldwell Node *Other - as specified in Clinical Information Left Caldwell Node 02/18/2024 11:55 AM EDT [facility] Gross Description A. Breast, Left, [...] #2 A4-A5: Bisected slice #3 to include hvac sales representative mass in block A5 A6-A7: Bisected slice #4 to include hvac sales representative mass and the site containing the [...] #3 B5-B6: Bisected slice #4 to include hvac sales representative mass B7-B8: Bisected slice #5 to include hvac sales representative mass and the site containing the biopsy clip B9: Perpendicular sections of the lateral margin C. Caldwell Lymph Node, Left Caldwell Node. C - Labeled/Fixative: Caldwell lymph node, left, fresh. Quantity/Size: Two, 0.5 x 0.4 x 0.4 cm and 0.7 x 0.4 x 0.3 cm. Tissue Description: Adipose tissue with two, up to 0.7 x 0.4 x 0.3 cm. Sections/Processi ng: Entirely submitted in 2 cassettes as follows: C1: Smaller bisected candidate lymph node C2: Larger bisected candidate lymph node CAK 02/18/2024 11:55 AM EDT [facility] Result Note Routine 02/18/2024 11:55 AM T [facility] Tissue LEFT BREAST STRUCTURE / [...] PM EDT 02/05/2024 3:12 PM EDT Comment:Left Caldwell Node Mignon Dawson MD PATHOLOGY/CYTOLOGY ORDERABLES [facility] [place] [address] documented in this encounter Visit Diagnoses Not [...] Given 02/05/2024 3:39 PM EDT 975 mg fentaNYL (pf) (50 mcg/mL) multi-dose injection 25 [...] Given 02/05/2024 3:47 PM EDT 25 mcg documented in this encounter Active and Recently [...] Routine documented in this encounter Care Teams Ballet Company Member Relationship Specialty Start Date End [place] [address] PCP - General General Internal Medicine 08/04/22 documented as of this encounter
--- OUTSIDE RECORDS SUMMARY | 2024-04-22 00:20 | XMS_ITS | Encounter Summary ---
Author Organization [facility] Address [facility] [place] [address] Care Team Providers Care Project Analyst Name Role Phone Haylie Steward MD Primary Care Provider [phone] Encounter Details Date Type Department Care Team (Latest Contact Info) Description 02/05/2024 12:00 PM EDT - 02/05/2024 12:29 PM EDT Hospital [place] [phone] Mignon Dawson MD [facility] [address] History of breast cancer Discharge Disposition: Home [...] things needed for daily living? No 01/20/2024 [facility] Inpatient Questions Answer Date Recorded Does Anyone [...] Scheduled View Only Radiation Oncology at [address] [phone] 04/25/2024 8:30 AM EST Scheduled View Only Radiation Oncology at [address] [address] 04/26/2024 3:00 PM EST Scheduled View Only Radiation Oncology at [address] [address] 04/26/2024 3:30 PM EST Office Visit Radiation Oncology at [address] [address] fOe Fonseca MD [facility] [place] [address] 04/28/2024 2:45 PM EST Scheduled View Only Radiation Oncology at [address] [address] 04/29/2024 3:00 PM EST Scheduled View Only Radiation Oncology at [address] [address] 05/02/2024 3:45 PM EST Scheduled View Only Radiation Oncology at [address] [address] 05/03/2024 1:45 PM EST Scheduled View Only Radiation Oncology at [address] [address] 05/03/2024 2:15 PM EST Office Visit Radiation Oncology at [address] [address] Ofe Fonseca MD [facility] [place] [address] 05/05/2024 8:15 AM EST Scheduled View Only Radiation Oncology at [address] [address] 05/06/2024 12:30 PM EST Scheduled View Only Radiation Oncology at [address] [address] 05/09/2024 3:00 PM EST Scheduled View Only Radiation Oncology at [address] [address] 05/10/2024 2:30 PM EST Scheduled View Only Radiation Oncology at [address] [address] 05/10/2024 3:15 PM EST Office Visit Radiation Oncology at [address] [address] Ofe Fonseca MD [facility] [place] [address] 05/11/2024 2:45 PM EST Scheduled View Only Radiation Oncology at [address] [address] 06/03/2024 3:30 PM EST Appointment Ultrasound at [place] [phone] Mira Hutchison, [facility] [place] [address] 06/23/2024 4:00 PM EST Appointment Mammography/DXA at [place] [phone] Miryam Feliciano MD [facility] [place] [address] 07/12/2024 8:00 AM EDT Laboratory Appointment Lab [address] [phone] 07/12/2024 9:30 AM EDT Office Visit Ne[place] [phone] Sharmin Jean-Baptiste, [facility] [place] [address] 07/13/2024 10:30 AM EDT Laboratory Appointment Lab at [facility] Hematology Oncology [address] [place] [address] 07/13/2024 11:30 AM EDT Office Visit Hematology [place] [address] Salena Alvares APRN [facility] [place] [address] 07/13/2024 12:45 PM EDT Appointment Hematology [place] [address] documented as of this encounter Procedures Procedure Name Priority Date/Time Associated Diagnosis Comments MAMMO SPECIMEN LEFT Routine 02/05/2024 2 :24 PM EDT History of breast cancer documented in this encounter Results * Mammo Specimen Left (02/05/2024 2:24 PM EDT) Pathologist [employer] WORKSTATION ID [id number] 1 RAD Anatomical Region Laterality Modality Breast Left Mammography Narrative 02/11/2024 11:11 AM EDT EXAMINATION: MAMMO SPECIMEN LEFT INDICATION: Intraoperative specimen image for adequacy of lesion and/or clip removal TECHNIQUE: A radiograph was obtained of the excised Left breast specimen. COMPARISONS: Preoperative imaging FINDINGS: The Magseed is in the specimen. No mass or biopsy clip is present within the specimen. Margins were felt to be not adequately clear by single plane radiography. This may represent either lesion #2 or #3. MIGNON DAWSON was informed in the operating room of the results by Dr. Bolanos ??at 14:12 hours. I have personally reviewed the image(s) and the resident's interpretation and agree with the findings, Aleida Bolanos MD at 02/11/2024 11:11 AM Thank you for letting us participate in the care of this patient. ??If you are a health care provider and have any questions regarding this report, please contact the number below. ??For patients who have questions please contact the health childcare teacher that requested your imaging first. ? [facility] [address] [place], [place] ??[address] Mignon Dawson MD IMG MAMMO ORDERABLE S documented in this encounter Visit Diagnoses Diagnosis History of breast cancer Personal history of malignant neoplasm of breast documented in this encounter Care Teams Project Analyst Relationship Specialty Start Date [place] [address] PCP - General General Internal Medicine 08/04/22 documented as of this encounter
--- OUTSIDE RECORDS SUMMARY | 2024-04-22 00:20 | XMS_ITS | Encounter Summary ---
[place] [address] Care Team Providers Care Calcine Furnace Loader Name Role Phone Haylie Steward MD Primary Care Provider + [phone] Encounter Details Date Type Department Care Team (Late st Contact Info) Description 02/05/2024 1:12 PM EDT Anesthesia Event [facility] [place] [address] Betsy Alcaraz MD [facility] [place] [address] Anesthesia Record Procedure Summary Procedure Name Responsible Anesthesiologist Anesthesia Start Time Anesthesia Stop Time MASTECTOMY PARTIAL (WRVU 10.13) (Left: Breast) Betsy Alcaraz MD 02/05/24 1312 02/05/24 1510 Events Date Time Event Comment 02/05/2024 1254 1312 AN Verify 1312 Start 1317 An Start Data 1317 An Induction 1319 An Intubation 1321 Anesthesia Ready 1335 Break/Relief In I assumed ca re for Break Relief before which we: 1. Identified the patient 2. Identified the responsible provider(s) 3. Reviewed the pertinent medical history 4. Discussed the surgical plan and course 5. Reviewed intra-op anesthesia management and issues during anesthesia 6. Set expectations for the relief (and/or post-procedure) period 7. Allowed opportunity for questions and acknowledgement of understanding Jourdan Dickerson CRNA 1341 Quick Note Local injected by surgeon 1359 Break/Relief In I assumed ca re for Break Relief before which we: 1. Identified the patient 2. Identified the responsible provider(s) 3. Reviewed the pertinent medical history 4. Discussed the surgical plan and course 5. Reviewed intra-op anesthesia management and issues during anesthesia 6. Set expectations for the relief (and/or post-procedure) period 7. Allowed opportunity for questions and acknowledgement of understanding Elda Garcia CRNA 1415 Break/Relief Out 1510 Stop 1510 Recovery or ICU Handoff Shahla ent care was transferred to the destination unit staff after review of the patient's medical history, current anesthetic/surgical status and plan, according to the Provider Handoff Checklist. Meds Name Total midazolam 2 mg fentaNYL 100 mcg lidocaine IV 100 mg propofoL 200 mg propofol INF 521.55 mg dexAMETHasone 8 mg ondansetron 8 mg PHENYLephrine 480 mcg ceFAZolin (Ancef) (100 mg/mL) injection solution 2 g 2 g lactated ringers 800 mL * Agents Name O2 * Blood No blood administrations on file. Lines, Drains, and Airways Type Details Placement Removal Incision 02/05/24; (in OR); L eft; axilla; LDA not present upon assessment; 02/29/24; 1528 02/05/24 0000 by Lynette Almonte RN 02/29/24 1528 by Estelle Danielle RN PIV 02/05/24; 1220; yinh-cxj-livmio catheter system; 20 gauge; Anatomical Landmarks; emk; intradermal injection; no longer indicated, removed per policy/procedure, site care per policy/procedure, catheter/device intact; 02/05/24; 1620 (site benign) 02/05/24 1220 by Ale Clemens RN 02/05/24 1620 by Lynette Almonte RN Supraglottic Mask Ventilation: No t Attempted (0); LMA Type: iGel; LMA Size: 3; Inserted by: Link SCHNEIDER; Removal Date: 02/05/24; Removal Time: 151302/05/24 1319 by Nicole Maza CRNA 02/05/24 1514 by Lynette Almonte, ORALIA documented in this encounter Social History Tobacco Use Types Packs/Day Years [...] PM EDT documented as of this encounter OR Notes * Anesthesia Postprocedure Evaluation - Betsy Alcaraz MD - 02/05/2024 3:55 PM EDT Department of Anesthesiology Post-procedure Note Patient: Nataliya Morfin Procedure Summary Date: 02/05/24 Room / Location: [facility] [place] [address] [place] [address] OSC Anesthesia Start: 1312 Anesthesia Stop: 151 Procedures: MASTECTOMY PARTIAL (WRVU 10.13) (Left: Breast) BIOPSY OR EXCISION OF LYMPH NODE(S), OPEN, DEEP AXILLARY NODE(S) (WRVU 6.43) (Left: Axilla) INTRAOPERATIVE ID (MAPPING) SENTINEL LYMPH NODE,INCLUDES INJECTION (WRVU 2.5) (Left) MODIFIER MAGSEED (Left) Diagnosis: (breast cancer) Surgeons: Hailey Dawson MD Responsible Provider: Betsy Alcaraz MD Anesthesia Type: general ASA Status: 3 All Anesthesia Providers: Anesthesiologist: Betsy Alcaraz MD [place] MACHINE OPERATOR: Nicole Maza CRNA Vitals Value Taken Time BP 158/79 02/05/24 1545 Temp 36 ??C (96.8 ??F) 02/05/24 1505 Pulse 71 02/05/24 1552 Resp 20 02/05/24 1530 SpO2 100 % 02/05/24 1552 Pain Level 7 02/05/24 1547 Vitals shown include unfiled device data. Patient Location: PACU/[facility] Level of Consciousness: Awake and Alert Pain Management: Satisfactory Analgesia PONV: None Cardiovascular Status: At Baseline Respiratory Status: At Baseline Postoperative Fluid Status: Intravascular EUvolemia Possible Anesthetic Complications: NONE apparent at time of evaluation Final Primary Anesthesia Type: General (The anesthetic type performed was the same as planned.) Comments: * Anesthesia Preprocedure Evaluation - Betsy Alcaraz MD - 02/05/2024 12:52 PM EDT Pre-Anesthesia Evaluation for: Nataliya Morfin a 48 y.o. female. Procedure(s): MASTECTOMY PARTIAL (WRVU 10.13) BIOPSY OR EXCISION OF LYMPH NODE(S), OPEN, DEEP AXILLARY NODE(S) (WRVU 6.43) INTRAOPERATIVE ID (MAPPING) SENTINEL LYMPH NODE,INCLUDES INJECTION (WRVU 2.5) MODIFIER MAGSEED Patient Active Problem List Diagnosis Date Noted ??? Malignant neoplasm of lower-inner quadrant of left breast in female, estrogen receptor hdfaacqu47/17/2024 ??? Bipolar 1 disorder 07/15/2023 ??? [place] intoxication, accidental or unintentional, initial encounter 09/06/2022 ??? CKD (chronic kidney disease) stage 2, GFR 60-89 ml/min 08/08/2022 ??? Hyperparathyroidism 08/08/2022 ??? Anemia 08/08/2022 ??? Chronic pansinusitis 08/13/2020 ??? Chronic tonsillitis 08/13/2020 ??? White coat syndrome without diagnosis of hypertension 07/15/2018 ??? Abnormal antibody titer 11/29/2017 ??? Herpes zoster without complication 11/29/2017 ??? Bipolar affective, mixed 03/03/2016 ??? H/O toe surgery 03/03/2016 ??? Hypothyroidism 03/03/2016 ??? Irritable bowel syndrome 03/03/2016 ??? Benign neoplasm of skin 08/10/2013 Past Medical History: Diagnosis Date ??? Bipolar 1 disorder ??? Chronic kidney disease (CKD) stage G3b/A1, moderately decreased glomerular filtration rate (GFR) between 30-44 mL/min/1.73 square meter and albuminuria creatinine ratio less than 30 mg/g ??? Hyperparathyroidism ??? Hypothyroid ??? OCD (obsessive compulsive disorder) Past Surgical History: Procedure Laterality Date ??? EYE SURGERY tear ducts as a child ??? MAMMO MAGSEED PLACEMENT MULTIPLE LEFT Left 02/01/2024 Mammo Magseed Placement Multiple Left 02/01/2024 Martha Martino MD [facility] RAD MAMMOGRAPHY ??? MAMMO US BIOPSY LEFT Left 01/14/2024 Mammo Us Biopsy Left 01/14/2024 ??? PRO COLONOSCOPY, BIOPSY N/A 06/11/2023 COLONOSCOPY FLEXIBLE, WITH BX (WRVU 3.56) performed by Jack Page MD at [facility] ENDOSCOPY ??? PRO UPPER GI ENDOSCOPY, BIOPSY N/A 06/11/2023 EGD WITH BIOPSY (WRVU 2.39) performed by Jack Page MD at [facility] ENDOSCOPY ??? TOE SURGERY Social History Tobacco Use ??? Smoking status: Never ??? Smokeless tobacco: Never Substance Use Topics ??? Alcohol use: Not Currently Social History Substance and Sexual Activity Drug Use Never Allergies Allergen Reactions ??? Nsaids (Non-Steroidal Anti-Inflammatory Drug) All interfere with lithium All interfere with lithium ??? Tolmetin All interfere with lithium ??? Ibuprofen Other reaction(s): Other, Other (See Comments), Unknown Patient states it affects her bipolar medication [place]. Medications: MAR and/or home medications have been reviewed. Physical Exam: Preprocedure Vitals Current as of 02/05/24 1252 BP: 152/73 Pulse: 66 Resp: 18 SpO2: 95 Temp: 36.1 ??C (97 ??F) Height: 157.5 cm (5' 2) (02/05/24) Weight: 62.1 kg (137 lb) (02/05/24) BMI: 25.05 IBW: 50.1 kg (110 lb 7.8 oz) Last edited 02/05/24 1210 by CC Airway Assessment: Mallampati: I TM distance: >3 FB Neck ROM: full Cardiovascular Assessment: Rhythm: regular Rate: normal Pulmonary Assessment: unlabored breathing Dental Assessment: - normal exam Misc Assessment: IV access: Peripheral line Last Filed Perioperative Cognitive Screening None Anesthesia Plan: ASA 3 general, with a(n) intravenous induction 48 y.o. female with a history of bipolar disorder and OCD, hypothyroidism, CKD, and breast cancer scheduled for: Procedure(s): MASTECTOMY PARTIAL (WRVU 10.13) BIOPSY OR EXCISION OF LYMPH NODE(S), OPEN, DEEP AXILLARY NODE(S) (WRVU 6.43) INTRAOPERATIVE ID (MAPPING) SENTINEL LYMPH NODE,INCLUDES INJECTION (WRVU 2.5) MODIFIER MAGSEED Previous anesthetics without issue- no airway records at URI/COVID symptoms: no Tobacco: no GERD: no Plan GA with routine monitors- LMA. Plans and risks reviewed. Questions answered. Region - Other Informed Consent: Anesthetic plan and risks discussed with patient. Plan discussed with [place] MACHINE OPERATOR and attending. Anesthesia Screening documented in this encounter Miscellaneous Notes * Addendum Note - Nicole Maza CRNA - 02/05/2024 4:23 PM EDT Addendum created 02/05/24 1623 by Nicole Maza CRNA Intraprocedure Meds edited documented in this encounter Plan of Treatment Upcoming Encounters Date Type Department Care Team (Latest Contact Info) Description 04/22/2024 9:45 AM EST Scheduled View Only Radiation Oncology at [address] [phone] 04/25/2024 8:30 AM EST Scheduled View Only Radiation Oncology at [address] [phone] 04/26/2024 3:00 PM EST Scheduled View Only Radiation Oncology at [address] [phone] 04/26/2024 3:30 PM EST Office Visit Radiation Oncology at [address] [phone] Ofe Fonseca MD [facility] [place] [address] 04/28/2024 2:45 PM EST Scheduled View Only Radiation Oncology at [address] [phone] 04/29/2024 3:00 PM EST Scheduled View Only Radiation Oncology at [address] [phone] 05/02/2024 3:45 PM EST Scheduled View Only Radiation Oncology at [address] [phone] 05/03/2024 1:45 PM EST Scheduled View Only Radiation Oncology at [address] [phone] 05/03/2024 2:15 PM EST Office Visit Radiation Oncology at [address] [phone] Ofe Fonseca MD [facility] [place] [address] 05/05/2024 8:15 AM EST Scheduled View Only Radiation Oncology at [address] [phone] 05/06/2024 12:30 PM EST Scheduled View Only Radiation Oncology at [address] [phone] 05/09/2024 3:00 PM EST Scheduled View Only Radiation Oncology at [address] [phone] 05/10/2024 2:30 PM EST Scheduled View Only Radiation Oncology at [address] [phone] 05/10/2024 3:15 PM EST Office Visit Radiation Oncology at [address] [phone] Ofe Fonseca MD [facility] [place] [address] 05/11/2024 2:45 PM EST Scheduled View Only Radiation Oncology at [address] [phone] 06/03/2024 3:30 PM EST Appointment Ultrasound at [place] [phone] Mira Hutchison [facility] [place] [address] 06/23/2024 4:00 PM EST Appointment Mammography/DXA at [place] [phone] Miryam Feliciano MD [facility] [place] [address] 07/12/2024 8:00 AM EDT Laboratory Appointment Lab [address] [place] [phone] 07/12/2024 9:30 AM EDT Office Visit Nephrology [place] [phone] Sharmin Jean-Baptiste [facility] [address] 07/13/2024 10:30 AM EDT Laboratory Appointment [place] [facility] [address] [place] [phone] 07/13/2024 11:30 AM EDT Office Visit Hematology [place] [phone] Salena Alvares APRN [facility] [place] [address] 07/13/2024 12:45 PM EDT Appointment Hematology [place] [phone] documented as of this encounter Visit Diagnoses Not on filedocumented in this encounter Administered Medications Inactive Administered Medications - up to 3 most recent administrations Medication Order MAR Action Action Date Dose Rate Site ceFAZolin (Ancef) (100 mg/mL) injection solution 2 g 2 g, Intravenous, ONCE, 1 dose, On Thu02/05/24 at 1215, To be prepared by and administered by Anesthesia. Reconstitute each ceFAZolin 1 gram vial with 10 mL of NS or SWFI = 100 mg/mL May inject IV without further dilution over 3 to 5 minutes., Day of Surgery (Day of Procedure), Indication for (Active or Suspected): Prophylaxis New Bag 02/05/2024 1:28 PM EDT 2 g dexAMETHasone (Decadron) injection Intravenous, PRN, Starting on Thu02/05/24 at 1324, Until Thu02/05/24 at 1511, Anesthesia Intra-op, Routine Given 02/05/2024 2:57 PM EDT 4 mg Given 02/05/2024 1:24 PM EDT 4 mg fentaNYL (pf) (50 mcg/mL) multi-dose injection Intravenous, PRN, Starting on Thu02/05/24 at 1317, Until Thu02/05/24 at 1511, Anesthesia Intra-op, Routine Given 02/05/2024 2:25 PM EDT 25 mcg Given 02/05/2024 1:59 PM EDT 25 mcg Given 02/05/2024 1:17 PM EDT 50 mcg lactated ringers infusion Intravenous, CONTINUOUS PRN, Starting on Thu02/05/24 at 1314, Until Thu02/05/24 at 1511, Anesthesia Intra-op New Bag 02/05/2024 1:14 PM EDT lidocaine (pf) (Xylocaine) (20 mg/mL) 2% injection syringe Intravenous, PRN, Starting on Thu02/05/24 at 1318, Until Thu02/05/24 at 1511, Anesthesia Intra-op, Routine Given 02/05/2024 1:18 PM EDT 100 mg midazolam (pf) (Versed) (1 mg/mL) multi-dose injection Intravenous, PRN, Starting on Thu02/05/24 at 1315, Until Thu02/05/24 at 1511, Anesthesia Intra-op, Routine Given 02/05/2024 1:15 PM EDT 2 mg ondansetron (pf) (Zofran) (2 mg/mL) injection Intravenous, PRN, Starting on Thu02/05/24 at 1326, Until Thu02/05/24 at 1511, Anesthesia Intra-op, Routine Given 02/05/2024 3:00 PM EDT 4 mg Given 02/05/2024 1:26 PM EDT 4 mg PHENYLephrine in NS (PF) (KYRA-SYNEPHRINE) 0.8 mg/10 mL (80 mcg/mL) multi-dose injection Syringe Intravenous, PRN, Starting on Thu02/05/24 at 1332, Until Thu02/05/24 at 1511, Anesthesia Intra-op, Routine Given 02/05/2024 2:50 PM EDT 80 mcg Given 02/05/2024 2:44 PM EDT 80 mcg Given 02/05/2024 2:38 PM EDT 80 mcg propofoL (Diprivan) (10 mg/mL) infusion Intravenous, CONTINUOUS PRN, Starting on Thu02/05/24 at 1322, Until Thu02/05/24 at 1511, Anesthesia Intra-op, Routine New Bag 02/05/2024 1:22 PM EDT 100 mcg/kg/min 32.94 mL/hr propofoL (Diprivan) 10 mg/mL bolus injection (Anesthesia) Intravenous, PRN, Starting on Thu02/05/24 at 1318, Until Thu02/05/24 at 1511, Anesthesia Intra-op Given 02/05/2024 1:22 PM EDT 30 mg Given 02/05/2024 1:18 PM EDT 170 mg documented in this encounter Care Teams Calcine Furnace Loader Relationship Specialty Start Date End Date [place] [address] PCP - General General Internal Medicine 08/04/22 documented as of this encounter
--- OUTSIDE RECORDS SUMMARY | 2024-04-22 00:20 | XMS_ITS | Encounter Summary ---
Author Organization [facility] [place] [address] Care Team Providers Care Boat Outfitting Supervisor Name Role Phone Haylie Steward MD Primary Care Provider [phone] Reason for Referral * Consultation (Routine) - Closed Specialty Diagnoses / Procedures Referred By Contac t Referred To Contact Radiation Oncology Diagnoses Malignant neoplasm of lower-inner quadrant of left breast in female, estrogen receptor positive Procedures Simulation for Radiation Therapy Planning Ofe Fonseca MD [facility] [place] [address] St Rad Onc Office [address] [place] [phone] Referral ID Status Reason Start Date Expiration Date V isits Requested Visits Authorized [id number] Closed Consult, Test & Treat 02/22/2024 02/21/2025 1 1 Reason for Visit * Reason Comments Radiation Consult * Consultation (Routine) - Closed Specialty Diagnoses / Procedures Referred By Contac t Referred To Contact Radiation Oncology Diagnoses Breast cancer Hailey Dawson MD [facility] [place] [address] [facility] [address] [place] [phone] Referral ID Status Reason Start Date Expiration Date Visits Re quested Visits Authorized [id number] Closed 01/28/2024 01/27/2025 1 1 Encounter Details Date Type Department Care Team (Late st Contact Info) Description 02/22/2024 9:00 AM EDT Office Visit Radiation Oncology at [address] [phone] Ofe Fonseca MD [facility] DR [place] [address] Malignant neoplasm of lower-inner quadrant of left [...] the past 12 months has th e [employer], gas, oil, or water [employer] threatened to shut off services in your [...] any time in the past 12 m [facility], were you homeless or living in a long term (including now)? No 02/15/2024 DH IPV Inpatient [...] Sign Reading Time Taken Comments Blood Pressure 143/78 02/22/2024 9:00 AM EDT Pulse 76 02/22/2024 9:00 AM EDT Temperature 37.2 ??C (98.9 ??F) 02/22/2024 9:00 AM ED T Respiratory Rate 18 02/22/2024 9:00 AM EDT Oxygen Saturation 100% 02/22/2024 9:00 AM EDT Inhaled Oxygen Concentration - - Weight 63.9 kg (140 lb 12.8 oz) 02/22/2024 9:00 AM EDT Height - - Body Mass Index 25.75 02/05/2024 12:10 PM EDT documented in this encounter Patient Instructions * Patient Instructions* Ofe Fonseca MD - 02/22/2024 9:00 AM EDT Someone will call you to schedule Ctsimulation for T., 04/12/24 @ soonest. documented in this encounter Progress Notes * Mell Blum RN - 02/22/2024 9:00 AM EDT RADIATION ONCOLOGY NURSING INITIAL NURSING ASSESSMENT IDENTIFICATION: Nataliya Morfin is a 48 y.o. year-old female with left breast cancer PRESENTING SYMPTOMS/CHIEF COMPLAINT: Here today for NPW REVIEW OF SYSTEMS: Review of Systems - Oncology 02/15/2024 10:19 AM REVIEW OF SYSTEMS Constitutional Weight gain Weakness Fatigue, lack of energy Drowsiness Pain Ear / nose / throat / mouth None of the above Eyes None of the above Respiratory None of the above Cardiovascular None of the above Gastrointestinal None of the above Skin, hair None of the above Musculoskeletal None of the above Neurological Headaches Hematologic / Lymphatic Sore or swollen lymph nodes, glands Genitourinary Frequent urination IN THE PAST 12 MONTHS HAVE YOU: Fallen more than one time? No Injured yourself as result of the fall? N/a Experienced difficulty with walking/problems with balance? No Do you use any assistive devices? No Any history of collagen vascular diseases:No Any Implanted Devices/Hardware: No If yes please put alert in ARIA patient summary Prior Radiotherapy: No Prior Chemotherapy: No Prior Hormone Therapy: No Other: Patient denies history of Scleroderma and Lupus LEARNING ASSESSMENT REVIEWED: Yes ADVANCED DIRECTIVE: Not discussed today. PAIN ASSESSMENT: 4-5 out of 10 left breast/axillary region *eD-H Adult PCS Flow Sheet if 4 or above SOCIAL ASSESSMENT: See EDH social assessment information entered. Support Systems: Here today with her father Barriers to treatment: None identified Referrals/Interventions: vegetable worker visit on day per routine. RADIATION SPECIFIC TEACHING: [facility] Radiation Therapy and You provided by Dr. Fonseca Site specific teaching : Breast teaching to be done by nursing on day of simulation Other: PLAN: Per Dr. Fonseca * Ofe Fonseca MD - 02/22/2024 9:00 AM EDT Images from the original note were not included. CC: Referred by Dr. Steward for eval for xrt for breast ca. HPI: Nataliya is a 48 y/o f who presented w/L breast abnlty on screening mmg. 01/05/24 genetic testing neg, 2 Variants of Uncertain Significance. 01/14/24 B screening mm mm L breast focal asymmetry w/architectural distortion @ 7:00, 3 cm from nipple. 01/14/24 dx'ic L mmg & L breast US: Spiculated mass @ 7:00, 4 cm from nipple. 01/14/24 US guided core needle bx L breast. Path: IDC, DCIS, ER+IL+, Her2-. Oncotype DX 12. 01/21/24 MRI B breasts: LEFT BREAST: Biopsy-proven malignancy in the lower inner quadrant, anterior to mid depth measuring about 1.5 cm. 2. Areas of more confluent nonmass enhancement and possible mass as described above (#2 and #3) while these areas likely represent background parenchymal enhancement, further evaluation with ultrasound is recommended. If the ultrasound is negative, MRI guided biopsy may be suggested. 01/25/24 US L breast: Breast MRI lesion #2 corresponds to an irregular mass with associated vascularity at 6:00, 4 cm from the nipple measuring 0.6 x 0.4 cm in greatest dimension. Recommend ultrasound-guided biopsy. Breast MRI lesion #3 corresponds to an irregular mass at 12:00, 2 cm radial from the nipple measuring 0.7 x 0.5 cm in greatest dimension. Associated vascularity is identified. Recommend ultrasound-guided biopsy. 02/01/24 core needle bx L breast lesion #2 (0.6 cm mass @ 6:00, 4 cm from nipple) & L breast lesion #3 (0.7 cm mass @ 12:00, 2 cm from nipple). Path: L breast lesion #2 bx benign. L breast lesion #3 bx benign. 02/05/24 L breast lumpectomy w/inframammary incision, inferior margin of 2nd excision was superior margin of initial excision & medial margin was excised as lateral margin of excision 1; placementbx cavity clips, partial breast recon, SNB. Path: DCIS, low to intermed gr, 2 mm, RM neg. IDC, gr 1, 9 mm, DCIS, RM + (posterior & lateral RM), 2 sentinel lymph nodes (both neg, 0/2), pT1b pN0. S: Still w/discomfort L axilla. No hand/arm swelling. ROM shoulders ok; doing exercises. Energy level decreased. Accompanied by father. Past Medical History: Diagnosis Date Bipolar 1 disorder Breast cancer Chronic kidney disease (CKD) stage G3b/A1, moderately decreased glomerular filtration rate (GFR) between 30-44 mL/min/1.73 square meter and albuminuria creatinine ratio less than 30 mg/g Hyperparathyroidism Hypothyroid OCD (obsessive compulsive disorder) No lupus/scleroderma. No prior xrt. Past Surgical History: Procedure Laterality Date EYE SURGERY tear ducts as a child MAMMO MAGSEED PLACEMENT MULTIPLE LEFT Left 02/01/2024 Mammo Magseed Placement Multiple Left 02/01/2024 Martha Martino MD [facility] RAD MAMMOGRAPHY MAMMO US BIOPSY LEFT Left 01/14/2024 Mammo Us Biopsy Left 01/14/2024 MAMMO US BIOPSY MULTIPLE LEFT Left 02/01/2024 Mammo US Biopsy Multiple Left 02/01/2024 Martha Martino MD [facility] RAD MAMMOGRAPHY PRO BX/REMV, LYMPH NODE, DEEP AXILL Left 02/05/2024 BIOPSY OR EXCISION OF LYMPH NODE(S), OPEN, DEEP AXILLARY NODE(S) (WRVU 6.43) performed by Hailey Dawson MD at [facility] OSC PRO COLONOSCOPY, BIOPSY N/A 06/11/2023 COLONOSCOPY FLEXIBLE, WITH BX (WRVU 3.56) performed by Jack Page MD at [facility] ENDOSCOPY PRO INTRAOP SENTINEL LYMPH ID W/DYE INJECTION Left 02/05/2024 INTRAOPERATIVE ID (MAPPING) SENTINEL LYMPH NODE,INCLUDES INJECTION (WRVU 2.5) performed by Hailey Dawson MD at [facility] OSC PRO MASTECTOMY PARTIAL Left 02/05/2024 MASTECTOMY PARTIAL (WRVU 10.13) performed by Hailey Dawson MD at [facility] OSC PRO UPPER GI ENDOSCOPY, BIOPSY N/A 06/11/2023 EGD WITH BIOPSY (WRVU 2.39) performed by Jack Page MD at [facility] ENDOSCOPY TOE SURGERY Your Medications Accurate as of February 22, 2024 10:06 AM. If you have any questions, ask [...] tablet Refills: 2 FIBER ORAL Take by mouth. Refills: 0 levothyroxine 75 mcg tablet Commonly known as: Synthroid Take 1 tablet by mouth every morning. 75 mcg Quantity: 90 tablet Refills: 0 loperamide 2 mg capsule Commonly known as: Imodium A-D Take 2 mg by mouth 4 times daily as needed for Diarrhea. Takes one tablet twice daily 2 mg Refills: 0 pilocarpine 5 mg tablet Commonly known as: Salagen Take 1 tablet by mouth 3 times daily. 5 mg Quantity: 90 tablet Refills: 2 zolpidem 5 mg tablet Commonly known as: Ambien Take 1 tablet by mouth nightly as needed for Sleep. 5 mg Quantity: 10 tablet Refills: 1 Physical Exam Constitutional: General: She is not in acute distress. Comments: BP 143/78 (Patient Position: Sitting) Pulse 76 Temp 37.2 ??C (98.9 ??F) (Temporal) Resp 18 Wt 63.9 kg (140 lb 12.8 oz) LMP 02/29/2024 (Exact Date) SpO2 100% BMI 25.75 kg/m?? HENT: Head: Normocephalic. Eyes: General: No scleral icterus. Right eye: No discharge. Left eye: No discharge. Extraocular Movements: Extraocular movements intact. Conjunctiva/sclera: Conjunctivae normal. Pulmonary: Effort: Pulmonary effort is normal. No respiratory distress. Breath sounds: No stridor. Chest: Breasts: Right: No inverted nipple, mass, nipple discharge, skin change or tenderness. Left: Skin change (Walsh ecchymosis along superior border NAC) present. No inverted nipple, mass, nipple discharge or tenderness. Abdominal: General: There is no distension. Palpations: Abdomen is soft. There is no mass. Tenderness: There is no abdominal tenderness. There is no guarding or rebound. Musculoskeletal: General: No swelling. Cervical back: Normal range of motion and neck supple. No tenderness. Right lower leg: No edema. Left lower leg: No edema. Lymphadenopathy: Head: Right side of head: No submental, submandibular, preauricular, posterior auricular or occipital adenopathy. Left side of head: No submental, submandibular, preauricular, posterior auricular or occipital adenopathy. Cervical: No cervical adenopathy. Upper Body: Right upper body: No supraclavicular or axillary adenopathy. Left upper body: No supraclavicular or axillary adenopathy. Neurological: Mental Status: She is alert and oriented to person, place, and time. Coordination: Coordination normal. Gait: Gait normal. Psychiatric: Mood and Affect: Mood normal. Behavior: Behavior normal. Thought Content: Thought content normal. Judgment: Judgment normal. A: Breast ca, L, IDC, gr 1, ER+IL+, Her2-, DCIS, s/p lumpectomy & SNB, pT1b pN0, w/+ resection margin. Oncotype DX 12. P: Reexcision 02/29/24. Following reexcision, we discussed possible xrt to improve likelihood of cure. Xrt would likely be given in 20 fxs. Possible side effects of xrt to breast discussed, w/acute/immediate side effects including: Pinkening, soreness & peeling of skin in treated area; swelling of treated breast; soreness of treated breast; cough; shortness of breath; tiredness. Acute/immediate side effects usually temporary. Late/termite control technician side effects to breast discussed include: Treated breast may shrink, become firmer & sit higher on chest; achiness/stiffness of chest wall on treated side; small risk of adverse effect on heart; rib fracture on treated side; CT after xrt may show scarring w/in small volume of lung on treated side; radiotherapy associated 2nd malignancy. Risk of occurrence of late/long-term sideeffects small. Need for CTsim prior to xrt discussed. She would like to proceed w/xrt & will return 03/22/[address] Jodie yepez for systemic tx 04/07/24. I certify spending at least 50 mins in providing care to this patient today as reflected by the following activities: - review of patient's medical record in the chart, including interpretation of imaging, laboratory and pathologic studies referenced above - documenting the outcome of today's visit as above documented in this encounter Plan of Treatment Upcoming Encounters Date Type Department Care Team (Latest Contact Info) Description 04/22/2024 9:45 AM EST Scheduled View Only Radiation Oncology at [address] [phone] 04/25/2024 8:30 AM EST Scheduled View Only Radiation Oncology at [address] [phone] 04/26/2024 3:00 PM EST Scheduled View Only Radiation Oncology at [address] [phone] 04/26/2024 3:30 PM EST Office Visit Radiation Oncology at [address] [phone] Ofe Fonseca MD [facility] [place] [address] 04/28/2024 2:45 PM EST Scheduled View Only Radiation Oncology at [address] [phone] 04/29/2024 3:00 PM EST Scheduled View Only Radiation Oncology at [address] [phone] 05/02/2024 3:45 PM EST Scheduled View Only Radiation Oncology at [address] [phone] 05/03/2024 1:45 PM EST Scheduled View Only Radiation Oncology at [address] [phone] 05/03/2024 2:15 PM EST Office Visit Radiation Oncology at [address] [phone] Ofe Fonseca MD [facility] [place] [address] 05/05/2024 8:15 AM EST Scheduled View Only Radiation Oncology at [address] [phone] 05/06/2024 12:30 PM EST Scheduled View Only Radiation Oncology at [address] [phone] 05/09/2024 3:00 PM EST Scheduled View Only Radiation Oncology at [address] [phone] 05/10/2024 2:30 PM EST Scheduled View Only Radiation Oncology at [address] [phone] 05/10/2024 3:15 PM EST Office Visit Radiation Oncology at [address] [phone] Ofe Fonseca MD [facility] [place] [address] 05/11/2024 2:45 PM EST Scheduled View Only Radiation Oncology at [address] [phone] 06/03/2024 3:30 PM EST Appointment Ultrasound at [place] [phone] Mira Hutchison APRN [facility] [place] [address] 06/23/2024 4:00 PM EST Appointment Mammography/[place] [phone] Miryam Feliciano MD [facility] [place] [address] 07/12/2024 8:00 AM EDT Laboratory Appointment Lab [address] [place] [phone] 07/12/2024 9:30 AM EDT Office Visit Nephrology [place] [address] Sharmin Jean-Baptiste, [facility] [address] 07/13/2024 10:30 AM EDT Laboratory Appointment Lab at [facility] Hematology Oncology [address] [place] [phone] 07/13/2024 11:30 AM EDT Office Visit Hematology [place] [address] Salena Alvares, [facility] [place] [address] 07/13/2024 12:45 PM EDT Appointment Hematology [place] [address] Scheduled Orders Name Type Priority Associated Diagnoses Orde r Schedule Simulation for Radiation Therapy Planning Radiation Oncology Routine Malignant neoplasm of lower-inner quadrant of left breast in female, estrogen receptor positive Expected: 04/12/2024, Expires: 10/12/2024 documented as of this encounter Visit Diagnoses Diagnosis Malignant neoplasm of lower-inner quadrant of left breast in female, estrogen receptor positive documented in this encounter Care Teams Boat Outfitting Supervisor Relationship Specialty Start Date [place] [address] PCP - General General Internal Medicine 08/04/22 documented as of this encounter
--- OUTSIDE RECORDS SUMMARY | 2024-04-22 00:20 | XMS_ITS | Encounter Summary ---
Author Organization [facility] Address [facility] [place] [address] Care Team Providers Care Adult And Pediatric Neurologist Name Role Phone Haylie Steward MD Primary Care Provider [phone] Encounter Details Date Type Department Care Team (Latest Contact Info) Description 02/05/2024 12:30 PM EDT - 02/05/2024 11:59 PM EDT Hospital En[place] [address] Mignon Dawson MD [facility] [place] [address] History of breast cancer Discharge Disposition: Home [...] for daily living? No 01/20/2024 [facility] Inpatient Questions Answer Date Recorded [...] EST Scheduled View Only Radiation Oncology at [address] [phone] 04/25/2024 8:30 AM EST Scheduled View Only Radiation Oncology at [address] [phone] 04/26/2024 3:00 PM EST Scheduled View Only Radiation Oncology at [address] [phone] 04/26/2024 3:30 PM EST Office Visit Radiation Oncology at [address] [phone] fOe Fonseca MD [facility] [place] [address] 04/28/2024 2:45 PM EST Scheduled View Only Radiation Oncology at [address] [phone] 04/29/2024 3:00 PM EST Scheduled View Only Radiation Oncology at [address] [phone] 05/02/2024 3:45 PM EST Scheduled View Only Radiation Oncology at [address] [phone] 05/03/2024 1:45 PM EST Scheduled View Only Radiation Oncology at [address] [phone] 05/03/2024 2:15 PM EST Office Visit Radiation Oncology at [address] [address] Ofe Fonseca MD [facility] [place] [address] 05/05/2024 8:15 AM EST Scheduled View Only Radiation Oncology at [address] [phone] 05/06/2024 12:30 PM EST Scheduled View Only Radiation Oncology at [address] [address] 05/09/2024 3:00 PM EST Scheduled View Only Radiation Oncology at [address] [address] 05/10/2024 2:30 PM EST Scheduled View Only Radiation Oncology at [address] [phone] 05/10/2024 3:15 PM EST Office Visit Radiation Oncology at [address] [phone] Ofe Fonseca MD [facility] [place] [address] 05/11/2024 2:45 PM EST Scheduled View Only Radiation Oncology at [address] [address] 06/03/2024 3:30 PM EST Appointment Ultrasound at [place] [phone] Mira Hutchison, [facility] [address] 06/23/2024 4:00 PM EST Appointment Mammography/DXA at [place] [phone] Miryam Feliciano MD [facility] [place] [address] 07/12/2024 8:00 AM EDT Laboratory Appointment Lab [address], [place] [phone] 07/12/2024 9:30 AM EDT Office Visit [place] [phone] Sharmin Jean-Baptiste, [facility] [place] [address] 07/13/2024 10:30 AM EDT Laboratory Appointment Lab at [facility] Hematology Oncology [address] [place] [phone] 07/13/2024 11:30 AM EDT Office Visit Hematology [place] [address] Salena Alvares APRN [facility] [place] [address] 07/13/2024 12:45 PM EDT Appointment Hematology [place] [address] documented as of this encounter Procedures Procedure Name Priority Date/Time Associated Diagnosis Comments MAMMO SPECIMEN LEFT Routine 02/05/2024 2 :53 PM EDT History of breast cancer documented in this encounter Results * Mammo Specimen Left (02/05/2024 2:53 PM EDT) Pathologist ServiceMesh WORKSTATION ID [id number] 1 RAD Anatomical Region Laterality Modality Breast Left Mammography Narrative 02/05/2024 3:17 PM EDT EXAMINATION: MAMMO SPECIMEN LEFT INDICATION: Intraoperative specimen image for adequacy of lesion and/or clip removal TECHNIQUE: A radiograph was obtained of the excised Left breast specimen. COMPARISONS: Preoperative imaging FINDINGS: The Magseed, heart shaped shaped clip and mass are in the specimen. ??Margins were felt to be adequate by single plane radiography. MIGNON DAWSON was informed in the operating room of the results by Dr. Bolanos at 14:42 hours. Thank you for letting us participate in the care of this patient. ??If you are a health care provider and have any questions regarding this report, please contact the number below. ??For patients who have questions please contact the health respiratory care technician that requested your imaging first. ? [facility] [address] [place], [place] ??[address] Mignon Dawson MD IMG MAMMO ORDERABLE S documented in this encounter Visit Diagnoses Diagnosis History of breast cancer Personal history of malignant neoplasm of breast documented in this encounter Care Teams Adult And Pediatric Neurologist Relationship Specialty Start Date End Date Haylie Steward MD [facility] [address] PCP - General General Internal Medicine 08/04/22 documented as of this encounter
--- OUTSIDE RECORDS SUMMARY | 2024-04-22 00:20 | XMS_ITS | Encounter Summary ---
Author [facility] [place] [address] Care Team Providers Care Box Toe Buffer Name Role Phone Haylie Steward MD Primary Care Provider [phone] Encounter Details Date Type Department Care Team (Latest Contact Info) Description 02/29/2024 1:00 PM EDT - 02/29/2024 4:42 PM EDT Hospital Encounter [place] [address] Mignon Dawson MD [facility] [place] [address] Discharge Disposition: Home Social History Tobacco Use [...] your doctor or pharmacy? Rarely 02/15/2024 [facility] Utilities Answer Date Recorded In [...] any time in the past 12 m [facility], were you homeless or living in a chcf (including now)? No 02/15/2024 [facility] IPV Inpatient [...] Sign Reading Time Taken Comments Blood Pressure 142/85 02/29/2024 4:15 PM EDT Pulse 77 02/29/2024 4:30 PM EDT Temperature 36 ??C (96.8 ??F) 02/29/2024 3:53 PM EDT Respiratory Rate 15 02/29/2024 4:15 PM EDT Oxygen Saturation 99% 02/29/2024 4:30 PM EDT Inhaled Oxygen Concentration - - Weight 62.7 kg (138 lb 4.8 oz) 02/29/2024 1:00 P M EDT Height 157.5 cm (5' 2) 02/29/2024 1:00 PM EDT Body Mass Index 25.3 02/29/2024 1:00 PM EDT documented in this encounter Discharge Instructions * Discharge Instructions* Lilian Lozano RN - 02/29/2024 7:18 AM EDT General [...] closest emergency room or call the hospital profiler operator at [phone] and ask for physician sales enablement consultant covering for your physician. Questions or problems after 5pm or on a weekend: Call the [facility] profiler operator at and ask for the physician sales enablement consultant covering for your doctor. You received 15 mg of Toradol at 2 pm. Your next dose should not be taken before 8 pm today. Okay to shower 24 hours Activity as tolerated Call [phone] with any questions Do not soak incision [...] was suspicious and biopsy confirmed low grade ER/VT+ IDC , her2 negative. Given breast density, [...] salivary gland cancer SH: non smoker. 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 [...] Dawson MD - 02/29/2024 2:27 PM EDT [facility] Operative Note Patient Name: Nataliya Morfin : [id number] MR#: [id number] Case Date: 02/29/2024 Surgeon: Surgeons and Role: [...] EST Scheduled View Only Radiation Oncology at [address] [phone] 04/25/2024 8:30 AM EST Scheduled View Only Radiation Oncology at [address] [address] 04/26/2024 3:00 PM EST Scheduled View Only Radiation Oncology at [address] [address] 04/26/2024 3:30 PM EST Office Visit Radiation Oncology at [address] [address] Ofe Fonseca MD [facility] [place] [address] 04/28/2024 2:45 PM EST Scheduled View Only Radiation Oncology at [address] [phone] 04/29/2024 3:00 PM EST Scheduled View Only Radiation Oncology at [address] [address] 05/02/2024 3:45 PM EST Scheduled View Only Radiation Oncology at [address] [address] 05/03/2024 1:45 PM EST Scheduled View Only Radiation Oncology at [address] [address] 05/03/2024 2:15 PM EST Office Visit Radiation Oncology at [address] [address] Ofe Fonseca MD [facility] [place] [address] 05/05/2024 8:15 AM EST Scheduled View Only Radiation Oncology at [address] [address] 05/06/2024 12:30 PM EST Scheduled View Only Radiation Oncology at [address] [address] 05/09/2024 3:00 PM EST Scheduled View Only Radiation Oncology at [address] [address] 05/10/2024 2:30 PM EST Scheduled View Only Radiation Oncology at [address] [address] 05/10/2024 3:15 PM EST Office Visit Radiation Oncology at [address] [address] Ofe Fonseca MD [facility] [place] [address] 05/11/2024 2:45 PM EST Scheduled View Only Radiation Oncology at [address] [address] 06/03/2024 3:30 PM EST [place] [phone] Mira Hutchison APRN [facility] [place] [address] 06/23/2024 4:00 PM EST Appointment Mammography/[place] [address] Miryam Feliciano MD [facility] [place] [address] 07/12/2024 8:00 AM EDT Laboratory Appointment Lab [address] [phone] 07/12/2024 9:30 AM EDT Office Visit Nephrology Hypertension at [place] [phone] Sharmin Jean-Baptiste, [facility] [place] [address] 07/13/2024 10:30 AM EDT Laboratory Appointment Lab at [facility] Hematology Oncology [address] [place], [place] [phone] 07/13/2024 11:30 AM EDT Office Visit Hematology and Oncology at [place] [phone] Salena Alvares, [facility] [place] [address] 07/13/2024 12:45 PM EDT Appointment Hematology and Oncology at [place] [phone] documented as of this encounter Procedures Procedure [...] 2:07 PM EDT BREAST CANCER Mastectomy Partial (83727) Yes 02/29/2024 2:07 PM EDT BREAST CANCER documented in this encounter Results * XR Fluoro No Rad <1Hr - OR Use (02/29/2024 3:25 PM EDT) Narrative Dicom, Auditing User - 02/29/2024 3:58 PM EDT This exam is auto-finalizing. No interpretation was done. Mignon Dawson MD IMG FLUORO ORDERABL ES * Mammo Specimen Left (02/29/2024 3:20 PM EDT) WORKSTATION ID [id number] 1 RAD Anatomical Region Laterality Modality Breast [...] who have questions please contact the health rn progressive care unit that requested your imaging first. ? [facility] [address], [place] ??[address] Mignon Dawson MD IMG MAMMO ORDERABLE S * Surgical Pathology (02/29/2024 3:16 PM EDT) Case Report Surgical Pathology Report ? Case: [id number] ? Authorizing Provider: ??Mignon Dawson MD ? Collected: ? 02/29/2024 1516 ? Ordering Location: ? [facility] ??Received: ?02/29/2024 1538 ? [facility] ? Hospital ? Pathologist: ? Sil Maguire MD ? Specimens: ?? A) - Breast, Left, Left breast partial mastectomy lesion 3 ? B) - Breast, Left, Margin, Lateral Margin of Left Breast Lesion 1 ? C) - Breast, Left, Margin, Posterior Margin of Left Breast Lesion 1 ? 03/15/2024 4:06 PM [facility] Final Diagnosis A. Breast, Left, [...] negative for malignancy. 03/15/2024 4:06 PM [facility] Additional Studies Task ID IHC/Special Stains Result A2-2 Calponin Positive A5-2 Calponin Positive A10-2 Calponin Positive A13-2 Calponin Positive A14-2 Calponin Positive A15-2 Calponin Positive B3-2 p63 Positive B3-3 Calponin Positive C2-2 CK5 Positive in area of interest C2-3 ER (Clone SP1) Patchy positive in area of interest 03/15/2024 4:06 PM [facility] Disclaimer(s) Formalin-fixed, paraffin-embedded tissue sections [...] other diagnostic tests. 03/15/2024 4:06 PM [facility] Clinical Information A. Breast, Left, Left breast partial mastectomy lesion 3 Known malignancy - as specified in Clinical Information BREAST CANCER Left breast partial mastectomy lesion 3 03/15/2024 4:06 PM [facility] Gross Description A. Breast, Left, [...] separate fragmented tissue 03/15/2024 4:06 PM [facility] Result Note Routine 03/15/2024 4:06 PM [facility] Tissue LEFT BREAST STRUCTURE / [...] Lesion 1 Mignon Dawson MD PATHOLOGY/CYTOLOGY ORDERABLES [facility] [place] [address] documented in this encounter Visit Diagnoses Not [...] Given 02/29/2024 4:11 PM EDT 650 mg documented in this encounter Active and Recently [...] , Routine 1611 (Given - Provid er: Lilian Lozano RN) BUPivacaine (pf) (Marcaine) (5 mg/mL) [...] (Due) documented in this encounter Care Teams Box Toe Buffer Relationship Specialty Start Date End Date Haylie Steward MD [facility] [place] [address] PCP - General General Internal Medicine 08/04/22 documented as of this encounter
--- OUTSIDE RECORDS SUMMARY | 2024-04-22 00:20 | XMS_ITS | Encounter Summary ---
[place] [address] Care Team Providers Care Slp Teacher Name Role Phone Haylie Steward MD Primary Care Provider [phone] Encounter Details Date Type Department Care Team (Late st Contact Info) Description 02/29/2024 2:05 PM EDT Anesthesia Event [place] [phone] Obdulio Herring MD [facility] [place] [address] Ann Pugh CRNA [facility] [place] [address] Anesthesia Record Procedure Summary Procedure Name Responsible Anesthesiologist Anesthesia Start Time Anesthesia Stop Time MASTECTOMY PARTIAL (WRVU 10.13) (Left: Breast) Obdulio Herring MD 02/29/24 1405 02/29/24 1556 Events Date Time Event Comment 02/29/2024 1405 AN Verify 1405 Start 1408 1408 An Start Data 1412 An Induction 1415 An Intubation 1419 Anesthesia Ready 1427 Procedure Start 1434 Break/Relief In I assumed ca re for Break Relief before which we: 1. Identified the patient 2. Identified the responsible provider(s) 3. Reviewed the pertinent medical history 4. Discussed the surgical plan and course 5. Reviewed intra-op anesthesia management and issues during anesthesia 6. Set expectations for the relief (and/or post-procedure) period 7. Allowed opportunity for questions and acknowledgement of understanding Gladis Womack CRNA 1453 Break/Relief Out 1545 Procedure Stop 1550 Extubation/LMA Out 1551 an stop data 1556 Recovery or ICU Handoff Shahla ent care was transferred to the destination unit staff after review of the patient's medical history, current anesthetic/surgical status and plan, according to the Provider Handoff Checklist. 1556 Stop Meds Name Total midazolam 2 mg fentaNYL 100 mcg lidocaine IV 25 mg propofoL 400 mg propofol INF 256.22 mg ePHEDrine 15 mg PHENYLephrine 480 mcg dexAMETHasone 8 mg ondansetron 8 mg ceFAZolin (Ancef) (100 mg/mL) injection solution 2 g 2 g ketorolac 15 mg lactated ringers infusion 1,100 mL * Agents Name O2 Air * Blood No blood administrations on file. Lines, Drains, and Airways Type Details Placement Removal Incision 02/29/24; 1427; Left , lower; breast 02/29/24 1427 by Estelle Danielle RN Incision 02/29/24; 1427; Left , upper; breast (aerola incision) 02/29/24 1427 by Kimberlee Pagan RN Incision 02/05/24; (in OR); L eft; axilla; LDA not present upon assessment; 02/29/24; 1528 02/05/24 0000 by Lynette Almonte RN 02/29/24 1528 by Estelle Danielle, RN Supraglottic Mask Ventilation: Ea sy (1); LMA Type: iGel; LMA Size: 3; Inserted by: Ann Pugh CRNA; Removal Date: 02/29/24; Removal Time: 1550 02/29/24 1420 by Ann Pugh CRNA 02/29/24 1550 by Ann Pugh CRNA PIV 02/29/24; 1426; 02/29/24; 1633 02/29/24 1426 by Ann Pugh CRNA 02/29/24 1633 by Lilian Lozano RN documented in this encounter Social History Tobacco [...] from your doctor or pharmacy? Rarely 02/15/2024 [facility] Utilities Answer Date Recorded In [...] in the past 12 m [facility], were you homeless or living in a senior living (including now)? No 02/15/2024 [facility] IPV Inpatient [...] OR Notes * Anesthesia Postprocedure Evaluation - Obdulio Herring MD - 03/01/2024 6:21 AM EDT Department of Anesthesiology Post-procedure Note Patient: Nataliya Morfin Procedure Summary Date: 02/29/24 Room / Location: [address] [facility] Anesthesia Start: 1405 Anesthesia Stop: 1556 Procedures: MASTECTOMY PARTIAL (WRVU 10.13) (Left: Breast) MODIFIER , RE-EXCISION MODIFIER MAGSEED (Left: Breast) Diagnosis: (BREAST CANCER) Surgeons: Hailey Dawson MD Responsible Provider: Obdulio Herring MD Anesthesia Type: general ASA Status: 2 All Anesthesia Providers: Anesthesiologist: Obdulio Herring MD [employer]: Ann Pugh CRNA Vitals Value Taken Time BP 142/85 02/29/24 1615 Temp 36 ??C (96.8 ??F) 02/29/24 1553 Pulse 77 02/29/24 1630 Resp 15 02/29/24 1615 SpO2 99 % 02/29/24 1630 Pain Level 4 02/29/24 1630 Patient Location: PACU/[facility] Level of Consciousness: Awake and Alert Pain Management: Satisfactory Analgesia PONV: None Cardiovascular Status: At Baseline and Hemodynamically Stable Respiratory Status: At Baseline and Room Air Postoperative Fluid Status: Intravascular EUvolemia Possible Anesthetic Complications: NONE apparent at time of evaluation Final Primary Anesthesia Type: General (The anesthetic type performed was the same as planned.) Comments: * Anesthesia Preprocedure Evaluation - Obdulio Herring MD - 02/29/2024 1:17 PM EDT Pre-Anesthesia Evaluation for: Nataliya Morfin a 49 y.o. female. Procedure(s): MASTECTOMY PARTIAL (WRVU 10.13) MODIFIER , RE-EXCISION Patient Active Problem List Diagnosis Date Noted ??? 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 Bipolar 1 disorder 07/15/2023 ??? Rodanthe intoxication, accidental or unintentional, initial encounter 09/06/2022 [...] Diagnosis Date ??? Bipolar 1 disorder ??? Breast cancer ??? Chronic kidney disease (CKD) stage G3b/A1, [...] Placement Multiple Left 02/01/2024 Martha Martino MD [facility] RAD MAMMOGRAPHY ??? MAMMO US BIOPSY LEFT Left 01/14/2024 Mammo Us Biopsy Left 01/14/2024 ??? MAMMO US BIOPSY MULTIPLE LEFT Left 02/01/2024 Mammo US Biopsy Multiple Left 02/01/2024 Martha Martino MD [facility] RAD MAMMOGRAPHY ??? PRO BX/REMV, LYMPH NODE, DEEP AXILL Left 02/05/2024 BIOPSY OR EXCISION OF LYMPH NODE(S), OPEN, DEEP AXILLARY NODE(S) (WRVU 6.43) performed by Hailey Dawson MD at [facility] OSC ??? PRO COLONOSCOPY, BIOPSY N/A 06/11/2023 COLONOSCOPY FLEXIBLE, WITH BX (WRVU 3.56) performed by Jack Page MD at [facility] ENDOSCOPY ??? PRO INTRAOP SENTINEL LYMPH ID W/DYE INJECTION Left 02/05/2024 INTRAOPERATIVE ID (MAPPING) SENTINEL LYMPH NODE,INCLUDES INJECTION (WRVU 2.5) performed by Hailey Dawson MD at [facility] OSC ??? PRO MASTECTOMY PARTIAL Left 02/05/2024 MASTECTOMY PARTIAL (WRVU 10.13) performed by Hailey Dawson MD at [facility] OSC ??? PRO UPPER GI ENDOSCOPY, BIOPSY N/A 06/11/2023 EGD WITH BIOPSY (WRVU 2.39) performed by Jack Page MD at [facility] ENDOSCOPY ??? TOE SURGERY Social History Tobacco Use ??? Smoking status: Never ??? Smokeless tobacco: Never Substance Use Topics ??? Alcohol use: Not Currently Social History Substance and Sexual Activity Drug Use Never Allergies Allergen Reactions ??? Nsaids (Non-Steroidal Anti-Inflammatory Drug) All interfere with lithium ??? Tolmetin All interfere with lithium ??? Ibuprofen Patient states it affects her bipolar medication Rodanthe. Medications: MAR and/or home medications have been reviewed. Physical Exam: Preprocedure Vitals Current as of 02/29/24 1317 No BP, pulse, respiration, SpO2, or temperature recorded. Height: Weight: BMI: IBW: Airway Assessment: Mallampati: I TM distance: >3 FB Neck ROM: full Cardiovascular Assessment: Rhythm: regular Rate: normal Pulmonary Assessment: unlabored breathing Dental Assessment: - normal exam Misc Assessment: IV access: Peripheral line Last Filed Perioperative Cognitive Screening None Anesthesia Plan: ASA 2 general, with a(n) intravenous induction Nataliya Morfin is a 49 y.o. female who presents for partial mastectomy PMH: bipolar disorder and OCD, hypothyroidism, CKD, and breast cancer Anesth Hx: similar procedure about 3 weeks ago, no issues, iGel 3 METS > 4, denies card/pulm hx or symptoms. Labs: 01/21/24 10/26/23 07/28/23 0913 0827 0947 WBC 5.97 5.0 5.8 HGB 14.6 14.9 14.2 HCT 46.2* 46.4* 45.2 PLATELET 226 187 210 01/21/24 10/26/23 07/28/23 0913 0827 0947 NA 143 139 141 K 4.3 4.3 4.5 CL 109* 108* 108* CO2 23 22 25 BUN 29* 32* 31* CREATININE 1.03 1.05 1.06 01/21/24 07/09/23 0913 0812 AST 23 22 ALT 25 22 ALKPHOS 82 78 BILITOT 0.2 -- No results for input(s): PT, INR, PTT in the last 168 hours. No results found for: ABORH Pt is appropriately NPO Anesthetic Plan GA with LMA Standard ASA monitors, IV access Region - Other Informed Consent: Anesthetic plan and risks discussed with patient. Plan discussed with [employer] and attending. Anesthesia Screening documented in this encounter Plan of Treatment Upcoming Encounters Date Type Department Care Team (Latest Contact Info) Description 04/22/2024 9:45 AM EST Scheduled View Only Radiation Oncology at [address] [phone] 04/25/2024 8:30 AM EST Scheduled View Only Radiation Oncology at [address] [address] 04/26/2024 3:00 PM EST Scheduled View Only Radiation Oncology at [address] [address] 04/26/2024 3:30 PM EST Office Visit Radiation Oncology at [address] [phone] Ofe Fonseca MD [facility] [place] [address] 04/28/2024 2:45 PM EST Scheduled View Only Radiation Oncology at [address] [phone] 04/29/2024 3:00 PM EST Scheduled View Only Radiation Oncology at [address] [address] 05/02/2024 3:45 PM EST Scheduled View Only Radiation Oncology at [address] [phone] 05/03/2024 1:45 PM EST Scheduled View Only Radiation Oncology at [address] [address] 05/03/2024 2:15 PM EST Office Visit Radiation Oncology at [address] [address] Ofe Fonseca MD [facility] [place] [address] 05/05/2024 8:15 AM EST Scheduled View Only Radiation Oncology at [address] [phone] 05/06/2024 12:30 PM EST Scheduled View Only Radiation Oncology at [address] [phone] 05/09/2024 3:00 PM EST Scheduled View Only Radiation Oncology at [address] [phone] 05/10/2024 2:30 PM EST Scheduled View Only Radiation Oncology at [address] [phone] 05/10/2024 3:15 PM EST Office Visit Radiation Oncology at [address] [phone] Ofe Fonseca MD [facility] [place] [address] 05/11/2024 2:45 PM EST Scheduled View Only Radiation Oncology at [address] [phone] 06/03/2024 3:30 PM EST [place] [address] Mira Hutchison APRN [facility] [place] [address] 06/23/2024 4:00 PM EST Appointment Mammography/[place] [phone] Miryam Feliciano MD [facility] [place] [address] 07/12/2024 8:00 AM EDT Laboratory Appointment Lab [address] [place] [phone] 07/12/2024 9:30 AM EDT Office Visit Nephrology Hypertension at [place] [phone] Sharmin Jean-Baptiste, [facility] [place] [address] 07/13/2024 10:30 AM EDT Laboratory Appointment Lab at [facility] Hemat[facility] Oncology [address] [place], [place] [phone] 07/13/2024 11:30 AM EDT Office Visit Hematology and Oncology at [place] [phone] Salena Alvares, [facility] [place] [address] 07/13/2024 12:45 PM EDT Appointment Hematology [place] [phone] documented as of this encounter Visit Diagnoses [...] for (Active or Suspected): Prophylaxis New Bag 02/29/2024 2:19 PM EDT 2 g dexAMETHasone (Decadron) injection Intravenous, PRN, Starting on Thu02/29/24 at 1419, Until Thu02/29/24 at 1556, Anesthesia Intra-op, Routine Given 02/29/2024 2:19 PM EDT 8 mg ePHEDrine sulfate (5 mg/mL) multi-dose injection Intravenous, PRN, Starting on Thu02/29/24 at 1505, Until Thu02/29/24 at 1556, Anesthesia Intra-op, Routine Given 02/29/2024 3:25 PM EDT 5 mg Given 02/29/2024 3:13 PM EDT 5 mg Given 02/29/2024 3:05 PM EDT 5 mg fentaNYL (pf) (50 mcg/mL) multi-dose injection Intravenous, PRN, Starting on Thu02/29/24 at 1412, Until Thu02/29/24 at 1556, Anesthesia Intra-op, Routine Given 02/29/2024 2:49 PM EDT 50 mcg Given 02/29/2024 2:26 PM EDT 25 mcg Given 02/29/2024 2:12 PM EDT 25 mcg ketorolac (Toradol) (30 mg/mL) injection Intravenous, PRN, Starting on Thu02/29/24 at 1419, Until Thu02/29/24 at 1556, Anesthesia Intra-op, Routine Given 02/29/2024 2:19 PM EDT 15 mg lactated ringers infusion 1,000 mL, at 100 mL/hr, Intravenous, CONTINUOUS, Starting on Thu02/29/24 at 1330, Until Thu02/29/24 at 1646, Day of Surgery (Day of Procedure) New Bag 02/29/2024 2:05 PM EDT lidocaine (pf) (Xylocaine) (20 mg/mL) 2% injection syringe Intravenous, PRN, Starting on Thu02/29/24 at 1412, Until Thu02/29/24 at 1556, Anesthesia Intra-op, Routine Given 02/29/2024 2:12 PM EDT 25 mg midazolam (pf) (Versed) (1 mg/mL) multi-dose injection Intravenous, PRN, Starting on Thu02/29/24 at 1407, Until Thu02/29/24 at 1556, Anesthesia Intra-op, Routine Given 02/29/2024 2:09 PM EDT 1 mg Given 02/29/2024 2:07 PM EDT 1 mg ondansetron (pf) (Zofran) (2 mg/mL) injection Intravenous, PRN, Starting on Thu02/29/24 at 1419, Until Thu02/29/24 at 1556, Anesthesia Intra-op, Routine Given 02/29/2024 3:33 PM EDT 4 mg Given 02/29/2024 2:19 PM EDT 4 mg PHENYLephrine in NS (PF) (KYRA-SYNEPHRINE) 0.8 mg/10 mL (80 mcg/mL) multi-dose injection Syringe Intravenous, PRN, Starting on Thu02/29/24 at 1430, Until Thu02/29/24 at 1556, Anesthesia Intra-op, Routine Given 02/29/2024 3:25 PM EDT 80 mcg Given 02/29/2024 3:13 PM EDT 40 mcg Given 02/29/2024 3:05 PM EDT 40 mcg propofoL (Diprivan) (10 mg/mL) infusion Intravenous, CONTINUOUS PRN, Starting on Thu02/29/24 at 1413, Until Thu02/29/24 at 1556, Anesthesia Intra-op, Routine Rate/Dose Change 02/29/2024 3:36 PM EDT 100 mcg/kg/min 33.06 mL/hr New Bag 02/29/2024 2:13 PM EDT 50 mcg/kg/min 16.53 mL/h r propofoL (Diprivan) 10 mg/mL bolus injection (Anesthesia) Intravenous, PRN, Starting on Thu02/29/24 at 1412, Until Thu02/29/24 at 1556, Anesthesia Intra-op Given 02/29/2024 3:41 PM EDT 20 mg Given 02/29/2024 3:37 PM EDT 30 mg Given 02/29/2024 3:36 PM EDT 30 mg documented in this encounter Care Teams Slp Teacher Relationship Specialty Start Date End Date Haylie Steward MD [facility] [place] [address] PCP - General General Internal Medicine 08/04/22 documented as of this encounter
--- OUTSIDE RECORDS SUMMARY | 2024-04-22 00:20 | XMS_ITS | Encounter Summary ---
[facility] [place] [address] Care Team Providers Care Book Packer Name Role Phone Haylie Steward MD Primary Care Provider + [phone] Encounter Details Date Type Department Care Team (Late st Contact Info) Description 02/15/2024 External [place] [address] Social History Tobacco Use Types Packs/Day Years [...] from your doctor or pharmacy? Rarely 02/15/2024 [facility] Utilities Answer Date Recorded In the past 12 months has e [employer], gas, oil, or water [employer] threatened to shut off services in your [...] EST Scheduled View Only Radiation Oncology at [address] [address] 04/25/2024 8:30 AM EST Scheduled View Only Radiation Oncology at [address] [address] 04/26/2024 3:00 PM EST Scheduled View Only Radiation Oncology at [address] [address] 04/26/2024 3:30 PM EST Office Visit Radiation Oncology at [address] [address] Ofe Fonseca MD [facility] [place] [address] 04/28/2024 2:45 PM EST Scheduled View Only Radiation Oncology at [address] [address] 04/29/2024 3:00 PM EST Scheduled View Only Radiation Oncology at [address] [address] 05/02/2024 3:45 PM EST Scheduled View Only Radiation Oncology at [address] [address] 05/03/2024 1:45 PM EST Scheduled View Only Radiation Oncology at [address] [address] 05/03/2024 2:15 PM EST Office Visit Radiation Oncology at [address] [address] Ofe Fonseca MD [facility] [place] [address] 05/05/2024 8:15 AM EST Scheduled View Only Radiation Oncology at [address] [address] 05/06/2024 12:30 PM EST Scheduled View Only Radiation Oncology at [address] [address] 05/09/2024 3:00 PM EST Scheduled View Only Radiation Oncology at [address] [address] 05/10/2024 2:30 PM EST Scheduled View Only Radiation Oncology at [address] [address] 05/10/2024 3:15 PM EST Office Visit Radiation Oncology at [address] [address] Ofe Fonseca MD [facility] [place] [address] 05/11/2024 2:45 PM EST Scheduled View Only Radiation Oncology at [address] [address] 06/03/2024 3:30 PM EST Appointment Ultrasound at [place] [phone] Mira Hutchison, [facility] [place] [address] 06/23/2024 4:00 PM EST Appointment Mammography/DXA at [place] [phone] Miryam Feliciano MD [facility] [place] [address] 07/12/2024 8:00 AM EDT Laboratory Appointment Lab [address] [place] [address] 07/12/2024 9:30 AM EDT Office Visit Nephrology Hypertension at [place] [phone] Sharmin Jean-Baptiste, [facility] [place] [address] 07/13/2024 10:30 AM EDT Laboratory Appointment Lab at [facility] [place] Oncology [address] [place], [place] [phone] 07/13/2024 11:30 AM EDT Office Visit Hematology [place] [address] Salena Alvares [facility] [place] [address] 07/13/2024 12:45 PM EDT Appointment Hematology and Oncology at [place] [phone] documented as of this encounter Procedures Procedure Name Priority Date/Time Associated Diagnosis Comments SURGICAL PATHOLOGY SCAN Routine 02/15/2024 1:24 PM EDT documented in this encounter Results * Scan Doc: Surgical Pathology (02/15/2024 1:24 PM EDT) Historical Provider MD MORRISSEY MGR SCAN EX T ORDR/RSLT documented in this encounter Visit Diagnoses Not on filedocumented in this encounter Care Teams Book Packer Relationship Specialty Start Date End Date Haylie Steward MD [facility] [place] [address] PCP - General General Internal Medicine 08/04/22 documented as of this encounter
--- OUTSIDE RECORDS SUMMARY | 2024-04-22 00:20 | XMS_ITS | Encounter Summary ---
[place] [address] Care Team Providers Care Jet Operator Name Role Phone Haylie Steward MD Primary Care Provider + [phone] Reason for Visit * Reason Onset Date Comments Other 02/12/202402/11 - Oncotype submitted Encounter Details Date Type Department Care Team (Late st Contact Info) Description 02/12/2024 Telephone Hematology [place] [phone] Sharmin Farnsworth Other (02/11 - Oncotype submitted) Social History Tobacco Use Types Packs/Day Years [...] things needed for daily living? No 01/20/2024 [facility] Inpatient Questions Answer Date Recorded Does [...] Scheduled View Only Radiation Oncology at [address] [address] 04/25/2024 8:30 AM EST Scheduled View Only Radiation Oncology at [address] [address] 04/26/2024 3:00 PM EST Scheduled View Only Radiation Oncology at [address] [address] 04/26/2024 3:30 PM EST Office Visit Radiation Oncology at [address] [address] Ofe Fonseca MD [facility] [place] [address] 04/28/2024 2:45 PM EST Scheduled View Only Radiation Oncology at [address] [address] 04/29/2024 3:00 PM EST Scheduled View Only Radiation Oncology at [address] [address] 05/02/2024 3:45 PM EST Scheduled View Only Radiation Oncology at [address] [address] 05/03/2024 1:45 PM EST Scheduled View Only Radiation Oncology at [address] [address] 05/03/2024 2:15 PM EST Office Visit Radiation Oncology at [address] [address] Ofe Fonseca MD [facility] [place] [address] 05/05/2024 8:15 AM EST Scheduled View Only Radiation Oncology at [address] [address] 05/06/2024 12:30 PM EST Scheduled View Only Radiation Oncology at [address] [address] 05/09/2024 3:00 PM EST Scheduled View Only Radiation Oncology at [address] [address] 05/10/2024 2:30 PM EST Scheduled View Only Radiation Oncology at [address] [address] 05/10/2024 3:15 PM EST Office Visit Radiation Oncology at [address] [address] Ofe Fonseca MD [facility] [place] [address] 05/11/2024 2:45 PM EST Scheduled View Only Radiation Oncology at [address] [address] 06/03/2024 3:30 PM EST Appointment Ultrasound at [place] [phone] Mira Hutchison APRN [facility] [place] [address] 06/23/2024 4:00 PM EST Appointment Mammography/[place] [phone] Miryam Feliciano MD [facility] [place] [address] 07/12/2024 8:00 AM EDT Laboratory Appointment Lab [address] [place] [address] 07/12/2024 9:30 AM EDT Office Visit Neph[place] [phone] Sharmin Jean-Baptiste, [facility] [place] [address] 07/13/2024 10:30 AM EDT Laboratory Appointment Lab at [facility] [facility] Hematology Oncology [address] [place] [phone] 07/13/2024 11:30 AM EDT Office Visit Hematology [place] [phone] Salena Alvares, [facility] [place] [address] 07/13/2024 12:45 PM EDT Appointment Hematology [place] [phone] documented as of this encounter Visit Diagnoses Not on filedocumented in this encounter Care Teams Jet Operator Relationship Specialty Start Date [place] [address] PCP - General General Internal Medicine 08/04/22 documented as of this encounter
--- OUTSIDE RECORDS SUMMARY | 2024-04-22 00:21 | XMS_ITS | Encounter Summary ---
Author Organization [facility] [place] [address] Care Team Providers Care Beet Flumer Name Role Phone Haylie Steward MD Primary Care Provider + [phone] Encounter Details Date Type Department Care Team (Late st Contact Info) Description 01/14/2024 Interpretation Only [address] [address] Mario Lee MD [facility] [place] [address] Social History Tobacco Use Types Packs/Day Years Used Date Smoking Tobacco: Never Smokeless Tobacco: Never Alcohol Use Standard Drinks/Week Comments Not Currently 0 (1 standard drink = 0.6 oz pur e alcohol) DH IPV Inpatient Questions Answer Date Recorded Does Anyone Try to Keep You From Having Contact with Others or Doing Things Outside Your Home? no 09/06/2022 Feels Threatened by Someone no 050 10/2022 Feels Unsafe at Home or Work/School [...] EST Scheduled View Only Radiation Oncology at [address] [address] 04/25/2024 8:30 AM EST Scheduled View Only Radiation Oncology at [address] [address] 04/26/2024 3:00 PM EST Scheduled View Only Radiation Oncology at [address] [address] 04/26/2024 3:30 PM EST Office Visit Radiation Oncology at [address] [address] Ofe Fonseca MD [facility] [place] [address] 04/28/2024 2:45 PM EST Scheduled View Only Radiation Oncology at [address] [address] 04/29/2024 3:00 PM EST Scheduled View Only Radiation Oncology at [address] [address] 05/02/2024 3:45 PM EST Scheduled View Only Radiation Oncology at [address] [address] 05/03/2024 1:45 PM EST Scheduled View Only Radiation Oncology at [address] [address] 05/03/2024 2:15 PM EST Office Visit Radiation Oncology at [address] [address] Ofe Fonseca MD [facility] [place] [address] 05/05/2024 8:15 AM EST Scheduled View Only Radiation Oncology at [address] [address] 05/06/2024 12:30 PM EST Scheduled View Only Radiation Oncology at [address] [address] 05/09/2024 3:00 PM EST Scheduled View Only Radiation Oncology at [address] [address] 05/10/2024 2:30 PM EST Scheduled View Only Radiation Oncology at [address] [address] 05/10/2024 3:15 PM EST Office Visit Radiation Oncology at [address] [address] Ofe Fonseca MD [facility] [place] [address] 05/11/2024 2:45 PM EST Scheduled View Only Radiation Oncology at [address] [address] 06/03/2024 3:30 PM EST [place]ointment [place] [address] Mira Hutchison COMPLETION MANAGER [facility] [place] [address] 06/23/2024 4:00 PM EST Appointment Mammography/DXA at [place] [phone] Miryam Feliciano MD [facility] [place] [address] 07/12/2024 8:00 AM EDT Laboratory Appointment Lab [place] [phone] 07/12/2024 9:30 AM EDT Office Visit Nephrology Hypertension at [place] [phone] Sharmin Jean-Baptiste COMPLETION MANAGER [facility] [place] [address] 07/13/2024 10:30 AM EDT Laboratory Appointment Lab at [facility] [place] Oncology [address] [place] [phone] 07/13/2024 11:30 AM EDT Office Visit Hematology [place] [address] Salena Alvares APRN [facility] DR MEDICAL ONCOLOGY [place] [phone] 07/13/2024 12:45 PM EDT Appointment Hematology [place] [address] documented as of this encounter Procedures Procedure Name Priority Date/Time Associated Diagnosis Comments MAMMO US BIOPSY LEFT Routine 01/14/2024 2:12 PM EDT documented in this encounter Results * Mammo Us Biopsy Left (01/14/2024 2:12 PM EDT) PT CLASS O RAD ADMITDTTM [id number] RAD PT RAD MD INFO [id number]^Viazme nski^Mario RAD EXAM DESC MAUBXL^US Guided Breast Biopsy Core Left.^RIS RAD WORKSTATION ID [id number] RAD Anatomical Region Laterality Modality Breast Left Mammography 01/14/2024 2:12 PM EDT Impressions 01/14/2024 2:16 PM EDT Successful ultrasound guided biopsy of left breast. Thank you for letting us participate in the care of this patient. ??If you are a health care provider and have any questions regarding this report, please contact the number below. ??For patients who have questions please contact the health home care specialist that requested your imaging first. ? [address] [place], [place] ??[address] Narrative 01/14/2024 2:16 PM EDT EXAMINATION: US Guided Breast Biopsy Core Left., MG Mammo Post Clip Placement Left CLINICAL HISTORY: left breast mass Suspicious breast mass on diagnostic evaluation. TECHNIQUE: Following discussion of relative risks and benefits, patient signed informed consent. The patient was placed supine on the examination table, the left breast was prepped and draped in normal sterile fashion. The mass was reidentified with ultrasound and the site was marked. Skin and intervening soft tissues were infiltrated with 1% lidocaine, a john was made in the skin with an 11 blade, and 14-gauge biopsy instrument was utilized to obtain several cores under ultrasonographic guidance. Biopsy marker was placed. All instruments were withdrawn. Skin incision was secured with a Steri-Strip, gauze and Tegaderm dressing was applied. Postprocedure two-view mammogram demonstrates biopsy marker at the site of mammographic abnormality. There were no immediate complications. FINDINGS: left breast mass. Procedure Note Mario Lee MD - 01/14/2024 EXAMINATION: US Guided Breast Biopsy Core Left., MG Mammo Post ClipPlacement Left CLINICAL HISTORY: left breast mass Suspicious breast mass on diagnostic evaluation. TECHNIQUE: Following discussion of relative risks and benefits, patient signedinformed consent. The patient was placed supine on the examination table, the leftbreast was prepped and draped in normal sterile fashion. The mass wasreidentified with ultrasound and the site was marked. Skin and intervening soft tissueswere infiltrated with 1% lidocaine, a john was made in the skin with an 11blade, and 14-gauge biopsy instrument was utilized to obtain several cores under ultrasonographic guidance. Biopsy marker was placed. All instrumentswere withdrawn. Skin incision was secured with a Steri-Strip, gauze andTegaderm dressing was applied. Postprocedure two-view mammogram demonstratesbiopsy marker at the site of mammographic abnormality. There were no immediate complications. FINDINGS: left breast mass. IMPRESSION Successful ultrasound guided biopsy of left breast. Thank you for letting us participate in the care of this patient. If youare a health care provider and have any questions regarding this report,please contact the number below. For patients who have questions please contactthe health home care specialist that requested [place] [address] Mario Lee MD IMG MAMMO ORDERAB LES documented in this encounter Visit Diagnoses Not on filedocumented in this encounter Care Teams Beet Flumer Relationship Specialty Start Date [place] [address] PCP - General General Internal Medicine 08/04/22 documented as of this encounter
--- OUTSIDE RECORDS SUMMARY | 2024-04-22 00:21 | XMS_ITS | Encounter Summary ---
Author Organization [place] [address] Care Team Providers Care Supervisor [employer] Name Role Phone Haylie Steward MD Primary Care Provider + [phone] Encounter Details Date Type Department Care Team (Late st Contact Info) Description 01/22/2024 Patient Outreach Hematology and Oncology at [facility] [place] [phone] Alma Moseley, RN Social History Tobacco Use [...] needed for daily living? No 01/20/2024 [facility] Inpatient Questions Answer Date Recorded [...] Progress Notes * Alma Moseley RN - 01/22/2024 2:19 PM EDT [facility] Nurse Navigator Call for the Comprehensive Breast Program (CBP) Nataliya Morfin is a 48 y.o. 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 Surgical consultation is scheduled on 01/[address] Dawson. Reason for call: contacted Nataliya per request of Dr. Dawson to let her know additional imaging (from 01/20 breast MRI) is recommended. 01/21/24 breast MRI - radiologist's RECOMMENDATION: MRI directed ultrasound of the left breast as described above. If ultrasound is negative, MR guided biopsy may be recommended. Ultrasound evaluation of left- sided low axillary lymph nodes. Plan: We spoke briefly as Nataliya was on another call attempting to get the ultrasound scheduled and coordinate time off with her boss. She understands she may contact this life insurance underwriter should she have any questions about the imaging recommended by our radiologist and Dr. Dawson. Nataliya has our contact numbers and thanked us for our time. Plan to meet with her on 01/24 after her surgical oncology consult. documented in this encounter Plan of Treatment Upcoming Encounters Date Type Department Care Team (Latest Contact Info) Description 04/22/2024 9:45 AM EST Scheduled View Only Radiation Oncology at [address] [address] 04/25/2024 8:30 AM EST Scheduled View Only Radiation Oncology at [address] [address] 04/26/2024 3:00 PM EST Scheduled View Only Radiation Oncology at [address] [address] 04/26/2024 3:30 PM EST Office Visit Radiation Oncology at [address] [address] Ofe Fonseca MD [facility] RADIATION [place] [address] 04/28/2024 2:45 PM EST Scheduled View Only Radiation Oncology at [address] [address] 04/29/2024 3:00 PM EST Scheduled View Only Radiation Oncology at [address] [address] 05/02/2024 3:45 PM EST Scheduled View Only Radiation Oncology at [address] [address] 05/03/2024 1:45 PM EST Scheduled View Only Radiation Oncology at [address] [address] 05/03/2024 2:15 PM EST Office Visit Radiation Oncology at [address] [address] Ofe Fonseca MD [facility] RADI[place] [address] 05/05/2024 8:15 AM EST Scheduled View Only Radiation Oncology at [address] [address] 05/06/2024 12:30 PM EST Scheduled View Only Radiation Oncology at [address] [address] 05/09/2024 3:00 PM EST Scheduled View Only Radiation Oncology at [address] [address] 05/10/2024 2:30 PM EST Scheduled View Only Radiation Oncology at [address] [address] 05/10/2024 3:15 PM EST Office Visit Radiation Oncology at [address] [phone] Ofe Fonseca MD [facility] [place] [address] 05/11/2024 2:45 PM EST Scheduled View Only Radiation Oncology at [address] [phone] 06/03/2024 3:30 PM EST Appointment Ultrasound at [place] [phone] Mira Hutchison [facility] [place] [address] 06/23/2024 4:00 PM EST Appointment Mammography/DXA at [place] [phone] Miryam Feliciano MD [facility] [place] [address] 07/12/2024 8:00 AM EDT Laboratory Appointment Lab [address] [place], [place] [phone] 07/12/2024 9:30 AM EDT Office Visit Nephrology Hypertension at [place] [phone] Sharmin Jean-Baptiste [facility] [place] [address] 07/13/2024 10:30 AM EDT Laboratory Appointment Lab at [facility] Hematology Oncology [address] [place] [phone] 07/13/2024 11:30 AM EDT Office Visit Hematology and Oncology at [place] [phone] Salena Alvares [facility] [place] [address] 07/13/2024 12:45 PM EDT Appointment Hematology [place] [address] documented as of this encounter Visit Diagnoses Not on filedocumented in this encounter Care Teams Supervisor Epoxy Fabrication Relationship Specialty Start Date End [place] [address] PCP - General General Internal Medicine 08/04/22 documented as of this encounter
--- OUTSIDE RECORDS SUMMARY | 2024-04-22 00:21 | XMS_ITS | Encounter Summary ---
Author Organization [facility] [place] [address] Care Team Providers Care Softball Coach Name Role Phone Haylie Steward MD Primary Care Provider + [phone] Reason for Visit * Reason Onset Date Comments Results 01/19/2024 Encounter Details Date Type Department Care Team (Late st Contact Info) Description 01/19/2024 Telephone Hematology [place] [address] Iggy Gandhi V, [facility] Hematology/[place] [address] Results Social History Tobacco Use Types Packs/Day Years [...] things needed for daily living? No 01/20/2024 [facility] Inpatient Questions Answer Date Recorded Does Anyone [...] encounter Miscellaneous Notes * Telephone Encounter - Iggy Gandhi V [facility] - 01/19/2024 4:01 PM EDT This test result was discussed with the patient by phone. A copy of the test results have been scanned in the medical record and sent to Nataliya. A summary of the results is provided below. Please be advised that [place] law requires that all health care workers respect the confidentiality of this information and not pass it along to other health care providers, insurance companies, or individuals without the written permission of the patient. The Familial Cancer Program welcomes any questions about these matters. Our phone number is: [phone]. On 01/05/2024 Nataliya was seen for genetic counseling and subsequently underwent genetic testing for a hereditary predisposition to cancers in eight major organ systems including breast, gynecologic, gastrointestinal, endocrine, genitourinary, skin, brain/nervous system, sarcoma and hematologic, as well as predisposition to hyperparathyroidism. Following are the results of this test. Result: [facility]'s Multi-Cancer Panel and Hereditary Hyperparathyroidism Panel showed no pathogenic mutations were detected. This means that Nataliya does not carry a mutation in the genes detectable by this test. The following 74 genes were evaluated for sequence changes and exonic deletions/duplications: AIP, ALK, AP2S1, APC, EVELYN, AXIN2, BAP1, BARD1, BLM, BMPR1A, BRCA1, BRCA2, BRIP1, CASR, CDC73, CDH1, CDK4, CDKN1B, CDKN2A (p14ARF), CDKN2A (w32JLM1L), CHEK2, CTNNA1, DICER1, EGFR, EPCAM (Deletion/duplication testing only), FH, FLCN, GNA11, GREM1 (Promoter region deletion/duplication testing only), HOXB13, KIT, LZTR1, MAX, MBD4, MEN1, MET, MITF, MLH1, MSH2, MSH3, MSH6, MUTYH, NF1, NF2, NTHL1, PALB2, PDGFRA, PMS2, POLD1, POLE, POT1, LROWG4B, PTCH1, PTEN, RAD51C, RAD51D, RB1, RET, SDHA (sequencing only), SDHAF2, SDHB, SDHC, SDHD, SMAD4, SMARCA4, SMARCB1, SMARCE1, STK11, SUFU, CUCJ795, TP53, TRPV6, TSC1, TSC2, and VHL. A variant of uncertain significance (VUS) was detected in the following two genes: CHEK2, specifically c.1336A>G (p.Ixv390Wez) RB1, specifically c.2558G>A (p.Djs366Htg) Please see discussion below regarding VUS classifications. Interpretation: This test did not identify an underlying genetic cause for the personal history of hyperparathyroidism and breast cancer or family history of prostate cancer, bladder cancer, pancreatic cancer, and melanoma. Possible explanations for this negative test result include: Nataliya's hyperparathyroidism and breast cancer and the cancer in her family may be due to non genetic, environmental causes. There could be a mutation in Nataliya's family that Nataliya did not inherit. There could be mutations in other cancer genes not included in this test, or in genes yet to be discovered. There is a very small chance that a pathogenic variant/mutation could be missed due to limitations in the testing. Additional germline genetic testing for Nataliya is not recommended at this time. Variant of Uncertain Significance (VUS) It is unclear at this time whether the CHEK2 or RB1 VUSs identified in Nataliya are cancer-associated mutations or benign changes in the genes with no increased cancer risks. [facility] is continually collecting and analyzing their data, in an effort to reclassify these variants as either cancer-causing mutations or benign changes. It is important to remember that a vast majority of variants of uncertain significance are normal, benign changes in the gene. Given her recent diagnosis of breast cancer, the CHEK2 variant was investigated further. Per ClinVar, this CHEK2 variant is currently classified as Likely Benign by several labs including [facility] [employer] [place], [facility], and [employer]. There are several other labs that also classify this variant as a VUS alongside [facility]. There are no labs reporting a Pathogenic or Likely Pathogenic classification per ClinVar. Based on this evidence, it is unlikely that this CHEK2 variant is related to Nataliya's recent diagnosis of breast cancer. The RB1 variant is currently reported in ClinVar as being classified as a VUS by [facility], [facility] [employer] [place], and [facility]. There are no alternative classifications of this variant reported in ClinVar. We will be contacted by the laboratory, in the future, if a reclassification is made and we would then notify Nataliya. It is important that Nataliya's phone number and mailing address stay updated in the [facility] system, in order for us to reach her in the future, should an amended report be issued. Family members should NOT be tested for the variants of uncertain significance identified inSarah in order to find out their own cancer risks. Screening Recommendations Based on genetic test results and personal and/or family history, we recommend: Breast cancer screening Clinical breast exams and imaging as recommended by Nataliya's oncologists. Gynecologic cancer screening Pelvic exams and/or Pap smears as recommended by Nataliya's sports director or primary care provider. Colon cancer screening Baseline colorectal cancer screening starting by age 45-50 is important for everyone, regardless ofgenetic predisposition. If Nataliya hasn't begun screening yet she should discuss the available screening options with her primary care provider. Skin cancer screening Skin cancer screening and sun protection are important for everyone, regardless of genetic predisposition. Consideration of routine dermatologic/skin exams, as recommended by Nataliya's primary care provider or filling operator. documented in this encounter Plan of Treatment Upcoming Encounters Date Type Department Care Team (Latest Contact Info) Description 04/22/2024 9:45 AM EST Scheduled View Only Radiation Oncology at [address] [phone] 04/25/2024 8:30 AM EST Scheduled View Only Radiation Oncology at [address] [address] 04/26/2024 3:00 PM EST Scheduled View Only Radiation Oncology at [address] [address] 04/26/2024 3:30 PM EST Office Visit Radiation Oncology at [address] [address] Ofe Fonseca MD [facility] [place] [address] 04/28/2024 2:45 PM EST Scheduled View Only Radiation Oncology at [address] [address] 04/29/2024 3:00 PM EST Scheduled View Only Radiation Oncology at [address] [address] 05/02/2024 3:45 PM EST Scheduled View Only Radiation Oncology at [address] [address] 05/03/2024 1:45 PM EST Scheduled View Only Radiation Oncology at [address] [address] 05/03/2024 2:15 PM EST Office Visit Radiation Oncology at [address] [address] Ofe Fonseca MD [facility] [place] [address] 05/05/2024 8:15 AM EST Scheduled View Only Radiation Oncology at [address] [address] 05/06/2024 12:30 PM EST Scheduled View Only Radiation Oncology at [address] [address] 05/09/2024 3:00 PM EST Scheduled View Only Radiation Oncology at [address] [address] 05/10/2024 2:30 PM EST Scheduled View Only Radiation Oncology at [address] [address] 05/10/2024 3:15 PM EST Office Visit Radiation Oncology at [address] [phone] Ofe Fonseca MD [facility] [place] [address] 05/11/2024 2:45 PM EST Scheduled View Only Radiation Oncology at [address] [address] 06/03/2024 3:30 PM EST Appointment Ultrasound at [place] [phone] Mira Hutchison [facility] [address] 06/23/2024 4:00 PM EST Appointment Mammography/DXA at [place] [phone] Miryam Feliciano MD [facility] [place] [place] [address] 07/12/2024 8:00 AM EDT Laboratory Appointment Lab [address] [place], [place] [phone] 07/12/2024 9:30 AM EDT Office Visit Nephrology Hypertension at [place] [phone] Sharmin Jean-Baptiste TATTOO AND BODY ARTIST [facility] [place] [address] 07/13/2024 10:30 AM EDT Laboratory Appointment Lab at [facility] Hematology Oncology [address] [place] [phone] 07/13/2024 11:30 AM EDT Office Visit Hematology [place] [address] Salena Alvares APRN [facility] [place] [address] 07/13/2024 12:45 PM EDT Appointment Hematology [place] [phone] documented as of this encounter Visit Diagnoses Not on filedocumented in this encounter Care Teams Softball Coach Relationship Specialty Start Date End [place] [address] PCP - General General Internal Medicine 08/04/22 documented as of this encounter
--- OUTSIDE RECORDS SUMMARY | 2024-04-22 00:21 | XMS_ITS | Encounter Summary ---
Author Organization [facility] [place] [address] Care Team Providers Care Slip Tender Name Role Phone Haylie Steward MD Primary Care Provider + [phone] Encounter Details Date Type Department Care Team (Latest Contact Info) Description 01/19/2024 Travel Social History Tobacco Use Types Packs/Day [...] EST Scheduled View Only Radiation Oncology at [address] [address] 04/25/2024 8:30 AM EST Scheduled View Only Radiation Oncology at [address] [address] 04/26/2024 3:00 PM EST Scheduled View Only Radiation Oncology at [address] [address] 04/26/2024 3:30 PM EST Office Visit Radiation Oncology at [address] [phone] Ofe Fonseca MD [facility] DR [place] [address] 04/28/2024 2:45 PM EST Scheduled View Only Radiation Oncology at [address] [address] 04/29/2024 3:00 PM EST Scheduled View Only Radiation Oncology at [address] [address] 05/02/2024 3:45 PM EST Scheduled View Only Radiation Oncology at [address] [address] 05/03/2024 1:45 PM EST Scheduled View Only Radiation Oncology at [address] [address] 05/03/2024 2:15 PM EST Office Visit Radiation Oncology at [address] [address] Ofe Fonseca MD [facility] [place] [address] 05/05/2024 8:15 AM EST Scheduled View Only Radiation Oncology at [address] [address] 05/06/2024 12:30 PM EST Scheduled View Only Radiation Oncology at [address] [address] 05/09/2024 3:00 PM EST Scheduled View Only Radiation Oncology at [address] [address] 05/10/2024 2:30 PM EST Scheduled View Only Radiation Oncology at [address] [address] 05/10/2024 3:15 PM EST Office Visit Radiation Oncology at [address] [address] Ofe Fonseca MD [facility] [place] [address] 05/11/2024 2:45 PM EST Scheduled View Only Radiation Oncology at [address] [address] 06/03/2024 3:30 PM EST [place] [phone] Mira Hutchison APRN [facility] [place] [address] 06/23/2024 4:00 PM EST Appointment Mammography/[place] [phone] Miryam Feliciano MD [facility] [place] [address] 07/12/2024 8:00 AM EDT Laboratory Appointment Lab [place] [phone] 07/12/2024 9:30 AM EDT Office Visit Ne[place] [address] Sharmin Jean-Baptiste, [facility] [place] [address] 07/13/2024 10:30 AM EDT Laboratory Appointment Lab at [facility] Hematology Oncology [address] [place] [address] 07/13/2024 11:30 AM EDT Office Visit Hematology and Oncology at [place] [phone] Salena Alvares, [facility] [place] [address] 07/13/2024 12:45 PM EDT Appointment Hematology and Oncology at [place] [address] documented as of this encounter Visit Diagnoses Not on filedocumented in this encounter Care Teams Slip Tender Relationship Specialty Start Date End [place] [address] PCP - General General Internal Medicine 08/04/22 documented as of this encounter
--- OUTSIDE RECORDS SUMMARY | 2024-04-22 00:21 | XMS_ITS | Encounter Summary ---
Author Organization [facility] [place] [address] Care Team Providers Care Nurses Assistant Name Role Phone Haylie Steward MD Primary Care Provider + [phone] Encounter Details Date Type Department Care Team (Late st Contact Info) Description 01/20/2024 Patient Outreach Hematology and Oncology at [facility] [place] [phone] Alma Moseley, RN Social History Tobacco Use [...] things needed for daily living? No 01/20/2024 COUNTS INCLUDE 234 BEDS AT [facility] Inpatient Questions Answer Date Recorded Does [...] Progress Notes * Alma Moseley RN - 01/20/2024 1:31 PM EDT [facility] Nurse Navigation Patient Care Plan for the Comprehensive Breast Program (CBP) Date of call: 01/19 (01/19 left message) Reason for call: contacted Nataliya Morfin via phone to assess for nurse navigation services, per CBP notification, and to see if she had any questions prior to her surgical oncology consultation at [facility]. Introduced her to the CBP. Nataliya Morfin is a 48 y.o. 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 Nataliya sounds positive and states she has support from family and friends. A friend who is a PA at [facility] will accompany her to her surgical consultaiton. She appears to be coping ok but is anxious to meet with a breast surgeon to determine a treatment plan. Nataliya is followed by Dr. Chente Soto in [place] and meets with him regularly. 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 She asked when she will be able to return to work and we discussed that if a partial mastectomy is planned she may be able to return to work in about a week or so and if a mastecotmy is planned it would be several weeks. We reviewed that Dr. Dawson will discuss surgical options (partial mastecotmy or mastectomy) with her and, if she is ready to schedule surgery on 01/24, she may meet with our operating room surgical technician. She asked when surgery might happen and we discussed a few weeks after her consult. She understands she will meet with a breast medical oncologist after surgery to discuss systemic treatment options which may include endocrine therapy. Menopausal status: LMP was 12/27. She states her menses have been irregular for about 2 years and previous to this she had frequent periods. MyDH is active. Plan: Appointments for breast MRI and consultation with a breast surgeon have been scheduled. She was introduced to the CBP and told she would receive information about her diagnosis and treatment for her review (the Breast Cancer Treatment Handbook). Plan to meet with Nataliya on the day of her surgical oncology consultation. She understands that Marybeth Linton, IDNIA, CCM, our social studies teacher, and I are available to her for support/concerns. Addressed her questions and encouraged her to contact me with any additional questions or concerns.She has our contact information. FAMILY HISTORY Nataliya met with one of our genetic counselors on 01/04 (Personal history of hyperparathyroidism, high serum calcium, and low urine calcium) and underwent genetic testing. Per her conversation with Gavino Gandhi [facility], on 01/18: Multi-Cancer Panel and Hereditary Hyperparathyroidism Panel showed no pathogenic mutations were detected. Nataliya states she did not understand the significance of a variant of uncertain significance (VUS) detected in two genes. We reviewed that no additional genetic testing was recommended and,per this marine underwriter's separate communication with Brandie Pickett [facility], no further genetic testing is recommended in light of her recent breast cancer diagnosis. Laterality:Left Is this a recurrence:No Family history of breast cancer:No Family history of ovarian cancer: No Personal history or breast cancer:No Method of detection: Mammogram Method of diagnosis: Ultrasound Core Biopsy Identified Barriers: Patient comments or concerns: none identified at this time. She has no concerns regarding insurance(states her insurance has been good in covering a lot so far), finances or transportation. documented in this encounter Plan of Treatment Upcoming Encounters Date Type Department Care Team (Latest Contact Info) Description 04/22/2024 9:45 AM EST Scheduled View Only Radiation Oncology at [address] [address] 04/25/2024 8:30 AM EST Scheduled View Only Radiation Oncology at [address] [address] 04/26/2024 3:00 PM EST Scheduled View Only Radiation Oncology at [address] [address] 04/26/2024 3:30 PM EST Office Visit Radiation Oncology at [address] [address] Ofe Fonseca MD [facility] [place] [address] 04/28/2024 2:45 PM EST Scheduled View Only Radiation Oncology at [address] [address] 04/29/2024 3:00 PM EST Scheduled View Only Radiation Oncology at [address] [address] 05/02/2024 3:45 PM EST Scheduled View Only Radiation Oncology at [address] [address] 05/03/2024 1:45 PM EST Scheduled View Only Radiation Oncology at [address] [address] 05/03/2024 2:15 PM EST Office Visit Radiation Oncology at [address] [address] Ofe Fonseca MD [facility] [place] [address] 05/05/2024 8:15 AM EST Scheduled View Only Radiation Oncology at [address] [address] 05/06/2024 12:30 PM EST Scheduled View Only Radiation Oncology at [address] [address] 05/09/2024 3:00 PM EST Scheduled View Only Radiation Oncology at [address] [address] 05/10/2024 2:30 PM EST Scheduled View Only Radiation Oncology at [address] [address] 05/10/2024 3:15 PM EST Office Visit Radiation Oncology at [address] [phone] Ofe Fonseca MD [facility] [place] [address] 05/11/2024 2:45 PM EST Scheduled View Only Radiation Oncology at [address] [phone] 06/03/2024 3:30 PM EST Appointment Ultrasound at [place] [phone] Mira Hutchison BUCKLE INSPECTOR [facility] [address] 06/23/2024 4:00 PM EST Appointment Mammography/DXA at [place] [phone] Miryam Feliciano MD [facility] [place] [address] 07/12/2024 8:00 AM EDT Laboratory Appointment Lab [address] [place], [place] [phone] 07/12/2024 9:30 AM EDT Office Visit Nephrology Hypertension at [place] [phone] Sharmin Jean-Baptiste [facility] [place] [address] 07/13/2024 10:30 AM EDT Laboratory Appointment Lab at [facility] Hematology Oncology [address] [place] [phone] 07/13/2024 11:30 AM EDT Office Visit Hematology and Oncology at [place] [phone] Salena Alvares APRN [facility] [place] [address] 07/13/2024 12:45 PM EDT Appointment Hematology [place] [phone] documented as of this encounter Visit Diagnoses Not on filedocumented in this encounter Care Teams Nurses Assistant Relationship Specialty Start Date End [place] [address] PCP - General General Internal Medicine 08/04/22 documented as of this encounter
--- OUTSIDE RECORDS SUMMARY | 2024-04-22 00:21 | XMS_ITS | Encounter Summary ---
[place] [address] Care Team Providers Care Tool Smith Name Role Phone Haylie Steward MD Primary Care Provider [phone] Reason for Referral * Diagnostic Test (Routine) - Closed Specialty Diagnoses / Procedures Referred By Contac t Referred To Contact Radiology Diagnoses Malignant neoplasm of left female breast, unspecified estrogen receptor status, unspecified site of breast Procedures MRI Breast wwo Contrast Hailey Oro MD [facility] [place] [address] [place] [address] Referral ID Status Reason Start Date Expiration Date V isits Requested Visits Authorized [id number] Closed Specialty Service Requested 01/18/2024 07/17/2025 1 1 Reason for Visit * Diagnostic Test (Routine) - Closed Specialty Diagnoses / Procedures Referred By Contac t Referred To Contact Radiology Diagnoses Malignant neoplasm of left female breast, unspecified estrogen receptor status, unspecified site of breast Procedures MRI Breast wwo Contrast Hailey Oro MD [facility] [address] [place] [address] Referral ID Status Reason Start Date Expiration Date V isits Requested Visits Authorized [id number] Closed Specialty Service Requested 01/18/2024 07/17/2025 1 1 Encounter Details Date Type Department Care Team (Latest Contact Info) Description 01/21/2024 9:42 AM EDT - 01/21/2024 11:59 PM EDT Hospital Encounter MRI at [facility] [address] Hailey Dawson MD [facility] [address] Malignant neoplasm of left female breast, unspecified estrogen receptor status, unspecified site of breast Discharge Disposition: Home Social History Tobacco Use [...] things needed for daily living? No 01/20/2024 [facility] Inpatient Questions Answer Date Recorded Does [...] Date cariprazine (Vraylar) 1.5 mg capsule 03/23/2021 calciTRIoL (Rocaltrol) 0.25 mcg capsuleIndications:Stage 3a chronic kidney disease (CKD) Take 1 capsule by mouth daily. 90 tablet 3 07/28/2023 clonazePAM (KlonoPIN) 0.5 mg disintegrating tablet Take 0.5 mg by mouth daily as needed. acetaminophen (Tylenol) 500 mg tablet Take 1,000 mg by mouth every 6 hours as needed for Pain. lithium 300 mg capsule 04/11/202104/19 divalproex ER (Depakote ER) 250 mg ER 24 hr tablet 2 tabs AM and 3 tabs PM. 150 tablet 2 01/12/2024 03/23/2024 pilocarpine (Salagen) 5 mg tablet Take 1 tablet by mouth 3 times daily. 90 tablet 2 01/12/2024 03/23/2024 buPROPion XL (Wellbutrin XL) 150 mg XL 24 hr tablet Take 1 tablet by mouth every morning. 90 tablet 10/20/2023 01/26/2024 levothyroxine (Synthroid) 75 mcg tablet Take 1 tablet by mouth every morning. 90 tablet 10/20/2023 01/26/2024 documented as of this encounter Plan of Treatment Upcoming Encounters Date Type Department Care Team (Latest Contact Info) Description 04/22/2024 9:45 AM EST Scheduled View Only Radiation Oncology at [address] [address] 04/25/2024 8:30 AM EST Scheduled View Only Radiation Oncology at [address] [address] 04/26/2024 3:00 PM EST Scheduled View Only Radiation Oncology at [address] [address] 04/26/2024 3:30 PM EST Office Visit Radiation Oncology at [address] [address] Ofe Fonseca MD [facility] [place] [address] 04/28/2024 2:45 PM EST Scheduled View Only Radiation Oncology at [address] [address] 04/29/2024 3:00 PM EST Scheduled View Only Radiation Oncology at [address] [address] 05/02/2024 3:45 PM EST Scheduled View Only Radiation Oncology at [address] [address] 05/03/2024 1:45 PM EST Scheduled View Only Radiation Oncology at [address] [address] 05/03/2024 2:15 PM EST Office Visit Radiation Oncology at [address] [address] Ofe Fonseca MD [facility] [address] 05/05/2024 8:15 AM EST Scheduled View Only Radiation Oncology at [address] [address] 05/06/2024 12:30 PM EST Scheduled View Only Radiation Oncology at [address] [address] 05/09/2024 3:00 PM EST Scheduled View Only Radiation Oncology at [address] [address] 05/10/2024 2:30 PM EST Scheduled View Only Radiation Oncology at [address] [address] 05/10/2024 3:15 PM EST Office Visit Radiation Oncology at [address] [address] Ofe Fonseca MD [facility] RADIATION [place] [address] 05/11/2024 2:45 PM EST Scheduled View Only Radiation Oncology at [address] [address] 06/03/2024 3:30 PM EST Appointment Ultrasound at [address] Mira Hutchison [facility] [place] [address] 06/23/2024 4:00 PM EST Appointment Mammography/DXA at [place] [phone] Miryam Feliciano MD [facility] [place] [address] 07/12/2024 8:00 AM EDT Laboratory Appointment Lab [address] [place] [address] 07/12/2024 9:30 AM EDT Office Visit Ne[place] [address] Sharmin Jean-Baptiste [facility] [place] [address] 07/13/2024 10:30 AM EDT Laboratory Appointment Lab at [facility] H[facility] Oncology [address] [place], [place] [phone] 07/13/2024 11:30 AM EDT Office Visit Hematology and Oncology at [place] [phone] Salena Alvares [facility] [place] [address] 07/13/2024 12:45 PM EDT Appointment Hematology and Oncology at [place] [phone] documented as of this encounter Procedures Procedure Name Priority Date/Time Associated Diagnosis Comments MRI BREAST WWO CONTRAST BILAT Routine 01/21/2024 11:05 AM EDT Malignant neoplasm of left female breast, unspecified estrogen receptor status, unspecified site of breast documented in this encounter Results * MRI Breast wwo Contrast Bilat (01/21/2024 11:05 AM EDT) WORKSTATION ID [id number] 2 DH RAD Anatomical Region Laterality Modality Breast Bilateral Magnetic Resonan ce Impressions 01/21/2024 3:42 PM EDT LEFT BREAST: Biopsy-proven malignancy in the lower [...] who have questions please contact the health care coordinator that requested your imaging first. ? Electronically signed by: Malgorzata De Santiago [facility] [place] ([phone]), at 01/21/2024 3:42 PM Narrative 01/21/2024 3:42 PM EDT EXAMINATION: MRI BREAST WWO CONTRAST BILAT CLINICAL [...] contrast enhancement curve analysis was performed, using [employer] software. COMPARISON STUDIES: Compared and/or correlated with [...] seen in the chest wall or skin. Hailey Dawson MD IMG MRI ORDERABLES documented in this encounter Visit Diagnoses Diagnosis Malignant neoplasm of left female breast, unspecified estrogen receptor status, unspecified site of breast documented in this encounter Administered Medications Inactive Administered Medications - up to 3 most recent administrations Medication Order MAR Action Action Date Dose Rate Site gadoterate meglumine (Dotarem) (0.5 mMol/mL) injection solution 0-100 mL 0-100 mL, Intravenous, ONCE PRN, 1 dose, Starting on Yaneth 01/21/24 at 1144, Until Yaneth 01/21/24 at 1055, Per Protocol, Radiology Contrast, Routine Given 01/21/2024 10:55 AM EDT 12 mLs documented in this encounter Care Teams Tool Smith Relationship Specialty Start Date End [place] [address] PCP - General General Internal Medicine 08/04/22 documented as of this encounter
--- OUTSIDE RECORDS SUMMARY | 2024-04-22 00:21 | XMS_ITS | Encounter Summary ---
Author Organization Formerly [facility] Address [facility] [place] [address] Care Team Providers Care Glass Cleaning Machine Tender Name Role Phone Haylie Steward MD Primary Care Provider + [phone] Encounter Details Date Type Department Care Team (Latest Contact Info) Description 01/25/2024 12:51 PM EDT - 01/25/2024 11:59 PM EDT Hospital [place] [address] Martha Martino MD [facility] [place] [address] Abnormal finding on breast imaging Discharge Disposition: Home Social History Tobacco Use [...] things needed for daily living? No 01/20/2024 [facility] Inpatient Questions Answer Date Recorded Does Anyone Try to Keep You From Having Contact with Others or Doing Things Outside Your Home? no 09/06/2022 Feels Threatened by Someone no 05/0 10/2022 Feels Unsafe at Home or Work/School [...] EST Scheduled View Only Radiation Oncology at [address] [phone] 04/25/2024 8:30 AM EST Scheduled View Only Radiation Oncology at [address] [address] 04/26/2024 3:00 PM EST Scheduled View Only Radiation Oncology at [address] [address] 04/26/2024 3:30 PM EST Office Visit Radiation Oncology at [address] [address] Ofe Fonseca MD [facility] [place] [address] 04/28/2024 2:45 PM EST Scheduled View Only Radiation Oncology at [address] [address] 04/29/2024 3:00 PM EST Scheduled View Only Radiation Oncology at [address] [address] 05/02/2024 3:45 PM EST Scheduled View Only Radiation Oncology at [address] [address] 05/03/2024 1:45 PM EST Scheduled View Only Radiation Oncology at [address] [address] 05/03/2024 2:15 PM EST Office Visit Radiation Oncology at [address] [address] Ofe Fonseca MD [facility] [place] [address] 05/05/2024 8:15 AM EST Scheduled View Only Radiation Oncology at [address] [address] 05/06/2024 12:30 PM EST Scheduled View Only Radiation Oncology at [address] [address] 05/09/2024 3:00 PM EST Scheduled View Only Radiation Oncology at [address] [address] 05/10/2024 2:30 PM EST Scheduled View Only Radiation Oncology at [address] [address] 05/10/2024 3:15 PM EST Office Visit Radiation Oncology at [address] [address] Ofe Fonseca MD [facility] [place] [address] 05/11/2024 2:45 PM EST Scheduled View Only Radiation Oncology at [address] [address] 06/03/2024 3:30 PM EST Appointment Ultrasound at [place] [phone] Mira Hutchison [facility] [place] [address] 06/23/2024 4:00 PM EST Appointment Mammography/DXA at [place] [phone] Miryam Feliciano MD [facility] [place] [address] 07/12/2024 8:00 AM EDT Laboratory Appointment Lab [address] [phone] 07/12/2024 9:30 AM EDT Office Visit [place] [phone] Sharmin Jean-Baptiste [facility] [place] [address] 07/13/2024 10:30 AM EDT Laboratory Appointment Lab at [facility] Hematology Oncology [address] [place] [phone] 07/13/2024 11:30 AM EDT Office Visit Hematology [place] [address] Salena Alvares APRN [facility] DR MEDICAL ONCOLOGY [place] [phone] 07/13/2024 12:45 PM EDT Appointment Hematology [place] [address] documented as of this encounter Procedures Procedure Name Priority Date/Time Associated Diagnosis Comments MAMMO BREAST US LIMITED LEFT Routine 01/25/2024 1:45 PM EDT Abnormal finding on breast imaging documented in this encounter Results * US Breast Limited Left (01/25/2024 1:45 PM EDT) WORKSTATION ID [id number] 1 [facility] Anatomical Region Laterality Modality Breast Left Mammography [...] who have questions please contact the health patient care specialist that requested your imaging first. ? Narrative [...] biopsy. Martha Martino MD IMG MAMMO ORDERABLES documented in this encounter Visit Diagnoses Diagnosis Abnormal finding on breast imaging Other (abnormal) findings on radiological examination of breast documented in this encounter Care Teams Glass Cleaning Machine Tender Relationship Specialty Start Date End [place] [address] PCP - General General Internal Medicine 08/04/22 documented as of this encounter
--- OUTSIDE RECORDS SUMMARY | 2024-04-22 00:21 | XMS_ITS | Encounter Summary ---
Author Organization Formerly [facility] [place] [address] Care Team Providers Care Perfect Binder Operator Name Role Phone Haylie Steward MD Primary Care Provider + [phone] Encounter Details Date Type Department Care Team (Late st Contact Info) Description 01/14/2024 Interpretation Only [address] [address] Mario Lee MD [facility] [place] [address] Social History Tobacco Use Types Packs/Day Years [...] EST Scheduled View Only Radiation Oncology at [address] [address] 04/25/2024 8:30 AM EST Scheduled View Only Radiation Oncology at [address] [address] 04/26/2024 3:00 PM EST Scheduled View Only Radiation Oncology at [address] [address] 04/26/2024 3:30 PM EST Office Visit Radiation Oncology at [address] [address] Ofe Fonseca MD [facility] [place] [address] 04/28/2024 2:45 PM EST Scheduled View Only Radiation Oncology at [address] [address] 04/29/2024 3:00 PM EST Scheduled View Only Radiation Oncology at [address] [address] 05/02/2024 3:45 PM EST Scheduled View Only Radiation Oncology at [address] [address] 05/03/2024 1:45 PM EST Scheduled View Only Radiation Oncology at [address] [address] 05/03/2024 2:15 PM EST Office Visit Radiation Oncology at [address] [address] Ofe Fonseca MD [facility] [place] [address] 05/05/2024 8:15 AM EST Scheduled View Only Radiation Oncology at [address] [address] 05/06/2024 12:30 PM EST Scheduled View Only Radiation Oncology at [address] [address] 05/09/2024 3:00 PM EST Scheduled View Only Radiation Oncology at [address] [address] 05/10/2024 2:30 PM EST Scheduled View Only Radiation Oncology at [address] [address] 05/10/2024 3:15 PM EST Office Visit Radiation Oncology at [address] [address] Ofe Fonseca MD [facility] [place] [address] 05/11/2024 2:45 PM EST Scheduled View Only Radiation Oncology at [address] [address] 06/03/2024 3:30 PM EST [place] [address] Mira Hutchison [employer] [facility] [place] [address] 06/23/2024 4:00 PM EST Appointment Mammography/DXA at [place] [phone] Miryam Feliciano MD [facility] [place] [address] 07/12/2024 8:00 AM EDT Laboratory Appointment Lab [address] [phone] 07/12/2024 9:30 AM EDT Office Visit Nephrology Hypertension at [place] [phone] Sharmin Jean-Baptiste [employer] [facility] [place] [address] 07/13/2024 10:30 AM EDT Laboratory Appointment Lab at [facility] Hematology Oncology [address] [place] [phone] 07/13/2024 11:30 AM EDT Office Visit Hematology [place] [address] Salena Alvares APRN [facility] DR MEDICAL ONCOLOGY [place] [phone] 07/13/2024 12:45 PM EDT Appointment Hematology [place] [address] documented as of this encounter Procedures Procedure Name Priority Date/Time Associated Diagnosis Comments MAMMO DIAGNOSTIC CAD AND EDWARD RIGHT Routine 01/14/2024 2:13 PM EDT documented in this encounter Results * Mammo Diagnostic Cad and Edward Right (01/14/2024 2:13 PM EDT) PT CLASS O RAD ADMITDTTM [id number] RAD PT RAD INFO [id number]^Viazme nski^Mario RAD EXAM DESC MADDUIRTO^MG Mammo Post Clip Placement Left^RIS RAD WORKSTATION ID [id number] RAD Anatomical Region Laterality Modality Breast Right Mammography 01/14/2024 1:47 PM EDT Impressions 01/14/2024 2:16 PM EDT Successful ultrasound guided biopsy of left breast. Thank you for letting us participate in the care of this patient. ??If you are a health care provider and have any questions regarding this report, please contact the number below. ??For patients who have questions please contact the health hearing healthcare practitioner that requested your imaging first. ? [address] ??[address] Narrative 01/14/2024 2:16 PM EDT EXAMINATION: US [...] patients who have questions please contactthe health hearing healthcare practitioner that [place] [address] Mario Lee MD IMG MAMMO ORDERAB LES documented in this encounter Visit Diagnoses Not on filedocumented in this encounter Care Teams Perfect Binder Operator Relationship Specialty Start Date End Date Haylie Steward MD [facility] [place] [address] PCP - General General Internal Medicine 08/04/22 documented as of this encounter
--- OUTSIDE RECORDS SUMMARY | 2024-04-22 00:21 | XMS_ITS | Encounter Summary ---
Author Organization [facility] [place] [address] Care Team Providers Care Swimming Coach Name Role Phone Haylie Steward MD Primary Care Provider + [phone] Encounter Details Date Type Department Care Team (Late st Contact Info) Description 01/14/2024 Lab [place] [id number] Mario Lee MD [facility] [place] [address] Social History Tobacco Use Types Packs/Day Years [...] EST Scheduled View Only Radiation Oncology at [address] [phone] 04/25/2024 8:30 AM EST Scheduled View Only Radiation Oncology at [address] [phone] 04/26/2024 3:00 PM EST Scheduled View Only Radiation Oncology at [address] [phone] 04/26/2024 3:30 PM EST Office Visit Radiation Oncology at [address] [phone] Ofe Fonseca MD [facility] [place] [address] 04/28/2024 2:45 PM EST Scheduled View Only Radiation Oncology at [address] [address] 04/29/2024 3:00 PM EST Scheduled View Only Radiation Oncology at [address] [address] 05/02/2024 3:45 PM EST Scheduled View Only Radiation Oncology at [address] [address] 05/03/2024 1:45 PM EST Scheduled View Only Radiation Oncology at [address] [address] 05/03/2024 2:15 PM EST Office Visit Radiation Oncology at [address] [address] Ofe Fonseca MD [facility] [place] [address] 05/05/2024 8:15 AM EST Scheduled View Only Radiation Oncology at [address] [address] 05/06/2024 12:30 PM EST Scheduled View Only Radiation Oncology at [address] [address] 05/09/2024 3:00 PM EST Scheduled View Only Radiation Oncology at [address] [address] 05/10/2024 2:30 PM EST Scheduled View Only Radiation Oncology at [address] [address] 05/10/2024 3:15 PM EST Office Visit Radiation Oncology at [address] [address] Ofe Fonseca MD [facility] [place] [address] 05/11/2024 2:45 PM EST Scheduled View Only Radiation Oncology at [address] [address] 06/03/2024 3:30 PM EST Appointment Ultrasound at [place] [phone] Mira Hutchison [facility] [place] [address] 06/23/2024 4:00 PM EST Appointment Mammography/DXA at [place] [phone] Miryam Feliciano MD [facility] [place] [address] 07/12/2024 8:00 AM EDT Laboratory Appointment Lab [address] [phone] 07/12/2024 9:30 AM EDT Office Visit Nephrology Hypertension at [place] [phone] Sharmin Jean-Baptiste LOTTERY OFFICE MANAGER [facility] [place] [address] 07/13/2024 10:30 AM EDT Laboratory Appointment Lab at [facility] Hematology Oncology [address] [place] [phone] 07/13/2024 11:30 AM EDT Office Visit Hematology [place] [phone] Salena Alvares APRN [facility] DR MEDICAL ONCOLOGY [place], [place] [phone] 07/13/2024 12:45 PM EDT Appointment Hematology [place] [phone] documented as of this encounter Procedures Procedure Name Priority Date/Time Associated Diagnosis Comments HER-2 FISH Routine 01/14/2024 1:30 PM EDT SURGICAL PATHOLOGY (REQ ENTRY) Routine 01/14/2024 1:30 PM EDT documented in this encounter Results * HER-2 FISH (01/14/2024 1:30 PM EDT) Indication for Study 01/20/2024 9:11 AM T [facility] Specimen Tissue Case/Block ID [id number] 01/20/2024 9:11 AM EDT [facility] HER2 FISH Final Report Method Fluorescence in situ hybridization (FISH) with chromosome 17 centromere (17p11.1-q11.1) probe and a locus specific probe for the HER2 gene locus (17q11.2-q12). 01/20/2024 9:11 AM EDT [facility] HER2/CHRISTOFER FISH Results Negative 01/20/2024 9:11 AM EDT [facility] Total # signals/Total # nuclei counted for HER2 probe 145 01/20/2024 9:11 AM EDT [facility] Total # Signals/Total # Nuclei counted for CEP-17 probe 81 01/20/2024 9:11 AM EDT [facility] HER2 to CEP-17 Ratio (Normal Range <2.0) 1.8 01/20/2024 9:11 AM EDT [facility] Total # Nuclei Counted 40 01/20/2024 9:11 AM EDT [facility] Average # HER2 Signals/Cell 3.6 01/20/2024 9:11 AM EDT [facility] HER2 FISH Interpretation Paraffin-embedded tissue sections were submitted for HER2 (ERBB2) gene amplification analysis by FISH. Direct analysis was performed using the Telogis Kit. Slide adequacy and signal enumeration were evaluated and satisfactory for both control and patient slides. A signal ratio derived from the HER2 probe and the CEP-17 centromere probe of greater than or equal to 2.0 is considered positive for HER2 gene amplification. The 2013 ASCO/CAP guideline recommendation for HER2 testing in breast cancer states that samples with a HER2 to CEP-17 ratio of less than 2.0 are non-amplified. Specimens with a HER2 to CEP-17 range of greater than or equal to 2.0 are considered amplified. This test is approved by the U.S. FDA for clinical diagnostic use. Reference: Omero CURTIS, et al. Recommendations for human epidermal growth factor receptor 2 testing in breast cancer: [place] Society of Clinical Oncology/College of [place] Pathologists clinical practice guideline update. J Clin Oncol. 2013 Mar 04. Omero CURTIS, et al. Human Epidermal Growth Factor Receptor 2 Testing in Breast Cancer: [place] Society of Clinical Oncology/College of [place] Pathologists Clinical Practice Guideline Focused Update. Arch Pathol Lab Med. 2017September 30/J Clin Oncol. 2017September 30. 01/20/2024 9:11 AM EDT [facility] Sign-out by This result has been reviewed by MARNI CALLAHAN MD, on 01/20/24 at 9:11 AM. 01/20/2024 9:11 AM EDT [facility] Tissue LEFT BREAST STRUCTURE / Unknown 01/14/2024 1:30 PM EDT 01/15/2024 10:24 AM EDT Mario Lee MD MOLECULAR ORDERAB LES [facility] [place] [address] * (ABNORMAL) Surgical Pathology (Req Entry) (01/14/2024 1:30 PM EDT) Case Report Surgical Pathology Report ? Case: [id number] ? Authorizing Provider: ??Mario Lee MD ?? Collected: ? 01/14/2024 1330 ? Ordering Location: ? Laboratory ? Received: ?01/14/2024 1727 ? Pathologist: ? Tati Wilkins, DO ? Specimen: ?Breast, Left, Left Breast Mass ? 4 1:32 PM EDT [facility] Final Diagnosis Left breast, core needle biopsy: - Invasive ductal carcinoma, low grade (modified SBR score = 5), measuring at least 6 mm. - Lymphovascular invasion absent. 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 - Studies for ER, NM, and HER2 have been ordered; results will be issued in an addendum. 4 1:32 PM EDT [facility] Addendum 2 SPECIAL TEST PERFORMED: Test: Oncotype DX [facility] Case: [id number] Performing Lab: [facility] Performing Lab Case: [id number] Reported by Owen Barbour M.D. Date reported: 02/24/2024 For the full text of the [employer] report(s), please refer to the Chart Review Media tab in the electronic health record (eDH). 1:32 PM EDT [facility] Addendum electronically signed by Tati Wilkins DO on 03/01/2024 at 1:32 PM Addendum Immunohistochemistry Studies (A1) Estrogen Receptor (ER) immunoreactivity: Positive Cancer cells with immunostaining: >90% Stain intensity: Moderate Progesterone Receptor (NM) immunoreactivity: Positive Cancer cells with immunostaining: >90% Stain intensity: Strong HER2 FISH: separate report to follow -- *Diagnostic guevara for hormone receptors (ASCO/CAP GUIDELINES, 2020): Negative immunoreactivity: <1% tumor cells with immunostaining Positive immunoreactivity: >=1% tumor cells with immunostaining Low Positive: 1-10% tumor cells with immunostaining* *There are limited data on the overall benefit of endocrine therapies for patients with low level (1-10%) ER expression, but they currently suggest possible benefit, so patients are considered eligible for endocrine treatment. There are data that suggest invasive cancers with these results are heterogeneous in both behavior and biology and often have gene expression profiles more similar to ER-negative cancers. Immunohistochemical assays were performed on paraffin-embedded tissue sections fixed in 10% neutral buffered formalin for 6-72 hours using the polymer system technique with appropriate controls. The assays were performed according to the gear shaper set up operator's instructions using Anti-ER (SP1) and Anti-NM (16) antibodies. These tests were developed and their performance characteristics determined by [facility]. They may not have been cleared or approved by the US Food and Drug Administration. The FDA does not require such tests to go through premarket FDA review. These tests are used for clinical purposes and should not be regarded as investigational or for research. This laboratory is certified under the Clinical Laboratory Improvement Amendments (CLIA) as qualified to perform high complexity clinical laboratory testing. 1:32 PM EDT [facility] Addendum electronically signed by Tati Wilkins DO on 01/18/2024 at 10:41 AM Clinical Information Left Breast Mass 1:32 PM EDT [facility] Gross Description A. Breast, Left, Left Breast Mass. A - Labeled/Fixative: Left breast mass, formalin. Quantity/Size: Three, 1.0 x 0.1 cm to 1.6 x 0.2 cm Tissue Description: Yellow fibrofatty needle core biopsies. Sections/Processing: Entirely submitted in 1 cassette labeled A1. Ischemic time: 1 minute Total fixation time in formalin: 7 hours 29 minutes The ASCO/CAP guideline related to formalin fixation time has been met (6-72 hours). The ASCO/CAP guideline related to cold ischemic time has been met (<1 hour). 1:32 PM EDT [facility] Result Note THIS RESULT REQUIR ES PHYSICIAN/JAZMIN FOLLOW UP(A) 1:32 PM EDT [facility] Tissue LEFT BREAST STRUCTURE / Unknown 01/14/2024 1:30 PM EDT 01/14/2024 5:27 PM EDT Mario Lee MD PATHOLOGY/CYTOLOG Y ORDERABLES [facility] [place] [address] documented in this encounter Visit Diagnoses Not on filedocumented in this encounter Care Teams Swimming Coach Relationship Specialty Start Date End Date Haylie Steward MD [facility] [place] [address] PCP - General General Internal Medicine 08/04/22 documented as of this encounter
--- OUTSIDE RECORDS SUMMARY | 2024-04-22 00:21 | XMS_ITS | Encounter Summary ---
[place] [address] Care Team Providers Care Lead Network Engineer Name Role Phone Haylie Steward MD Primary Care Provider + [phone] Reason for Referral * Diagnostic Test (Routine) - Closed Specialty Diagnoses / Procedures Referred By Contac t Referred To Contact Radiology Diagnoses Malignant neoplasm of left female breast, unspecified estrogen receptor status, unspecified site of breast Procedures MRI Breast wwo Contrast Hailey Oro MD [facility] [place] [address] [place] [address] Referral ID Status Reason Start Date Expiration Date V isits Requested Visits Authorized [id number] Closed Specialty Service Requested 01/18/2024 07/17/2025 1 1 Encounter Details Date Type Department Care Team (Late st Contact Info) Description 01/18/2024 Orders [place] [phone] [facility] [place] [place] [address] Malignant neoplasm of left female breast, unspecified estrogen receptor status, unspecified site of breast Social History Tobacco Use Types Packs/Day Years [...] Scheduled View Only Radiation Oncology at [address] [phone] 04/25/2024 8:30 AM EST Scheduled View Only Radiation Oncology at [address] [phone] 04/26/2024 3:00 PM EST Scheduled View Only Radiation Oncology at [address] [phone] 04/26/2024 3:30 PM EST Office Visit Radiation Oncology at [address] [address] [facility] DR [place] [address] 04/28/2024 2:45 PM EST Scheduled View Only Radiation Oncology at [address] [address] 04/29/2024 3:00 PM EST Scheduled View Only Radiation Oncology at [address] [address] 05/02/2024 3:45 PM EST Scheduled View Only Radiation Oncology at [address] [address] 05/03/2024 1:45 PM EST Scheduled View Only Radiation Oncology at [address] [address] 05/03/2024 2:15 PM EST Office Visit Radiation Oncology at [address] [address] [facility] [place] [address] 05/05/2024 8:15 AM EST Scheduled View Only Radiation Oncology at [address] [address] 05/06/2024 12:30 PM EST Scheduled View Only Radiation Oncology at [address] [address] 05/09/2024 3:00 PM EST Scheduled View Only Radiation Oncology at [address] [address] 05/10/2024 2:30 PM EST Scheduled View Only Radiation Oncology at [address] [address] 05/10/2024 3:15 PM EST Office Visit Radiation Oncology at [address] [phone] [facility] [place] [address] 05/11/2024 2:45 PM EST Scheduled View Only Radiation Oncology at [address] [address] 06/03/2024 3:30 PM EST [place]ointment [place] [phone] Mira Hutchison APRN [facility] [place] [address] 06/23/2024 4:00 PM EST Appointment Mammography/[place] [phone] [facility] [place] [address] 07/12/2024 8:00 AM EDT Laboratory Appointment Lab [address] [place] [phone] 07/12/2024 9:30 AM EDT Office Visit Neph[place] [address] Sharmin Jean-Baptiste, [facility] [place] [address] 07/13/2024 10:30 AM EDT Laboratory Appointment Lab at [facility] Hematology Oncology [address] [place] [phone] 07/13/2024 11:30 AM EDT Office Visit Hematology [place] [phone] Salena Alvares, [facility] [place] [address] 07/13/2024 12:45 PM EDT Appointment Hematology [place] [phone] documented as of this encounter Results * MRI Breast wwo Contrast Bilat (01/21/2024 11:05 AM EDT) WORKSTATION ID [id number] 2 DH RAD Anatomical Region Laterality Modality [...] who have questions please contact the health acute care occupational therapist that requested your imaging first. ? Electronically signed by: Malgorzata De [facility] ([phone]), at 01/21/2024 3:42 PM Narrative 01/21/2024 3:42 [...] contrast enhancement curve analysis was performed, using Versa software. COMPARISON STUDIES: Compared and/or correlated with [...] chest wall or skin. Hailey Dawson MD [facility] [place] ORDERABLES * (ABNORMAL) Comprehensive metabolic panel Non-fasting (01/21/2024 9:13 AM EDT) Glucose 77 65 - 99 mg/dL 01/21/2024 9:58 AM EDT [facility] Comment: Fasting Glucose Interpretive Criteria: Normal: 65-99 mg/dL ?? Prediabetes: 100-125 mg/dL ?? Consistent with Diabetes Mellitus: > or = 126 mg/dL ?? Classification and Diagnosis of Diabetes: Standards of Care in Diabetes - 2022. Diabetes Care 202; 46:S19. Fasting is defined as no caloric intake for at least 8 hours. Blood Urea Nitrogen 29(H) 8 - 18 mg/dL 01/21/2024 9:58 AM [facility] Creatinine 1.03 0.70 - 1.20 mg/dL 01/21/2024 9:58 AM [facility] Sodium 143 135 - 145 mMol/L 01/21/2024 9:58 AM [facility] Potassium 4.3 3.5 - 5.0 mMol/L 01/21/2024 9:58 AM [facility] Chloride 109(H) 98 - 107 mMol/L 01/21/2024 9:58 AM [facility] Carbon Dioxide 23 22 - 31 mMol/L 01/21/2024 9:58 AM [facility] Anion Gap 11 5 - 15 mMol/L 01/21/2024 9:58 AM [facility] Calcium 10.1 8.5 - 10.5 mg/dL 01/21/2024 9:58 AM [facility] Protein, Total 6.8 6.1 - 8.0 g/dL 01/21/2024 9:58 AM [facility] Albumin 4.1 3.2 - 5.2 g/dL 01/21/2024 9:58 AM [facility] Aspartate Aminotransferase 23 <=30 unit/L 01/21/2024 9:58 AM [facility] Alanine Aminotransferase 25 0 - 30 unit/L 01/21/2024 9:58 AM [facility] Alkaline Phosphatase 82 35 - 105 unit/L 01/21/2024 9:58 AM [facility] Bilirubin, Total 0.2 <=1.3 mg/dL 01/21/2024 9:58 AM [facility] Est Glomerular Filtration Rate - Female 67 mL/min/1. 73 m?? 01/21/2024 9:58 AM [facility] Comment: This patient's estimated GFR was [...] Calculator [employer] Fasting Status Yes 01/21/2024 9:58 AM EDT [facility] Blood VENOUS BLOOD SPECIMEN / Unknown Venipuncture / Unknown 01/21/2024 9:13 AM EDT 01/21/2024 9:13 AM EDT Hailey Dawson MD CHEMISTRY ORDERABLE S [facility] [place] [address] * (ABNORMAL) CBC (with Diff) (01/21/2024 9:13 AM EDT) White Blood Cell 5.97 4.00 - 9.50 x10(3)/mc L 01/21/2024 10:06 AM [facility] Red Blood Cell 4.71 4.00 - 5.21 x10(6)/mc L 01/21/2024 10:06 AM [facility] Hemoglobin 14.6 11.7 - 15.5 g/dL 01/21/2024 10:06 AM [facility] Hematocrit 46.2(H) 35.7 - 45.8 % 01/21/2024 10:06 AM [facility] Mean Cell Volume 98.1(H) 82.6 - 94.4 fL 01/21/2024 10:06 AM [facility] Mean Cell Hemoglobin 31.0 27.1 - 32.0 pg 01/21/2024 10:06 AM [facility] Mean Cell Hemoglobin Concentration 31.6(L) 31.7 - 35.0 g/dL 01/21/2024 10:06 AM [facility] Platelet 226 145 - 357 x10(3)/mc L 01/21/2024 10:06 AM [facility] Mean Platelet Volume 9.6 7.6 - 12.9 fL 01/21/2024 10:06 AM [facility] RDW Standard Deviation 47.8(H) 37.0 - 46.0 fL 01/21/2024 10:06 AM [facility] RDW coefficient of variation 13.2 11.5 - 14.1 % 01/21/2024 10:06 AM [facility] NRBC% auto 0.0 % 01/21/2024 10:06 AM [facility] NRBC Absolute <0.01(H) 0.00 - 0.00 x10(3)/mc L 01/21/2024 10:06 AM [facility] Neutrophil % 61.7 % 01/21/2024 10:06 AM [facility] Neutrophil Absolute (ANC) - Automated 3.68 1.70 - 6.10 x10(3)/mc L 01/21/2024 10:06 AM [facility] Lymph % 26.5 % 01/21/2024 10:06 AM [facility] Lymph Absolute 1.58 0.90 - 3.20 x10(3)/mc L 01/21/2024 10:06 AM [facility] Monocyte % 8.5 % 01/21/2024 10:06 AM [facility] Monocyte Absolute 0.51 0.30 - 0.90 x10(3)/mc L 01/21/2024 10:06 AM [facility] Eos % 2.5 % 01/21/2024 10:06 AM [facility] Eos Absolute 0.15 0.00 - 0.40 x10(3)/mc L 01/21/2024 10:06 AM EDT [facility] Basophil % 0.3 % 01/21/2024 10:06 AM EDT [facility] Baso Absolute <0.04 0.00 - 0.10 x10(3)/mc L 01/21/2024 10:06 AM EDT [facility] Immature Gran % 0.5 % 10:06 AM EDT [facility] Immature Gran Absolute <0.04 0.00 - 0.04 x10(3)/mc L 01/21/2024 10:06 AM EDT [facility] Blood VENOUS BLOOD SPECIMEN / Unknown Venipuncture / Unknown 01/21/2024 9:13 AM EDT 01/21/2024 9:13 AM EDT Hailey Dawson MD HEMATOLOGY ORDERABL ES Performing Organization Address City/State/[facility] Co de Phone Number [facility] [place] [phone] documented in this encounter Visit Diagnoses Diagnosis Malignant neoplasm of left female breast, unspecified estrogen receptor status, unspecified site of breast Malignant neoplasm of left female breast, unspecified estrogen receptor status, unspecified site of breast documented in this encounter Care Teams Lead Network Engineer Relationship Specialty Start Date [place] [address] PCP - General General Internal Medicine 08/04/22 documented as of this encounter
--- OUTSIDE RECORDS SUMMARY | 2024-04-22 00:21 | XMS_ITS | Encounter Summary ---
Author Organization [facility] [place] [address] Care Team Providers Care Automotive Lube Technician Name Role Phone Haylie Steward MD Primary Care Provider + [phone] Encounter Details Date Type Department Care Team (Latest Contact Info) Description 01/28/2024 8:05 AM EDT Laboratory Appointment Lab [address] [place] [phone] Bipolar 1 disorder Social History Tobacco Use [...] Scheduled View Only Radiation Oncology at [address] [address] 04/25/2024 8:30 AM EST Scheduled View Only Radiation Oncology at [address] [address] 04/26/2024 3:00 PM EST Scheduled View Only Radiation Oncology at [address] [address] 04/26/2024 3:30 PM EST Office Visit Radiation Oncology at [address] [address] Ofe Fonseca MD [facility] [place] [address] 04/28/2024 2:45 PM EST Scheduled View Only Radiation Oncology at [address] [address] 04/29/2024 3:00 PM EST Scheduled View Only Radiation Oncology at [address] [address] 05/02/2024 3:45 PM EST Scheduled View Only Radiation Oncology at [address] [address] 05/03/2024 1:45 PM EST Scheduled View Only Radiation Oncology at [address] [address] 05/03/2024 2:15 PM EST Office Visit Radiation Oncology at [address] [address] Ofe Fonseca MD [facility] RADIATION ONCOLOGY [place], [place] [address] 05/05/2024 8:15 AM EST Scheduled View Only Radiation Oncology at [address] [address] 05/06/2024 12:30 PM EST Scheduled View Only Radiation Oncology at [address] [address] 05/09/2024 3:00 PM EST Scheduled View Only Radiation Oncology at [address] [address] 05/10/2024 2:30 PM EST Scheduled View Only Radiation Oncology at [address] [address] 05/10/2024 3:15 PM EST Office Visit Radiation Oncology at [address] [address] Ofe Fonseca MD [facility] [place] [address] 05/11/2024 2:45 PM EST Scheduled View Only Radiation Oncology at [address] [address] 06/03/2024 3:30 PM EST Appointment Ultrasound at [place] [phone] Mira Hutchison APRN [facility] [place] [address] 06/23/2024 4:00 PM EST Appointment Mammography/DXA at [place] [phone] Miryam Feliciano MD [facility] [place] [address] 07/12/2024 8:00 AM EDT Laboratory Appointment Lab [place] [phone] 07/12/2024 9:30 AM EDT Office Visit [place] [address] Sharmin Jean-Baptiste, [facility] [place] [address] 07/13/2024 10:30 AM EDT Laboratory Appointment Lab at [facility] Hematology Oncology [address] [place] [address] 07/13/2024 11:30 AM EDT Office Visit Hematology [place] [address] Salena Alvares, [facility] [place] [address] 07/13/2024 12:45 PM EDT Appointment Hematology [place] [address] documented as of this encounter Procedures Procedure Name Priority Date/Time Associated Diagnosis Comments VALPROIC ACID LEVEL, TOTAL Routine 01/28/2024 8:10 AM EDT Bipolar 1 disorder documented in this encounter Results * Valproic Acid Level, Total (01/28/2024 8:10 AM EDT) Valproic Acid 82 <=125 mg/L 01/28/2024 9:[address] [facility] Comment: Therapeutic Range: ??Anticonvulsant Therapy: ??50-100 mg/L ?? Manic Episodes Associated with Bipolar Disorder: ??50-125 mg/L Blood VENOUS BLOOD SPECIMEN / Unknown Venipuncture / Unknown 01/28/2024 8:10 AM EDT 01/28/2024 8:12 AM EDT Michelet Monge MD CHEMISTRY ORDERABLES [place] [address] documented in this encounter Visit Diagnoses Diagnosis Bipolar 1 disorder Bipolar I disorder, most recent episode (or current) unspecified documented in this encounter Care Teams Automotive Lube Technician Relationship Specialty Start Date [place] [address] PCP - General General Internal Medicine 08/04/22 documented as of this encounter
--- OUTSIDE RECORDS SUMMARY | 2024-04-22 00:21 | XMS_ITS | Encounter Summary ---
Author Organization [facility] [place] [address] Care Team Providers Care Entry Table Operator Name Role Phone Haylie Steward MD Primary Care Provider + [phone] Encounter Details Date Type Department Care Team (Late st Contact Info) Description 01/26/2024 Patient Outreach Hematology and Oncology at [facility] [place] [phone] Alma Moseley, RN Social History Tobacco Use [...] things needed for daily living? No 01/20/2024 [facility] Inpatient Questions Answer Date Recorded [...] Progress Notes * Alma Moseley RN - 01/26/2024 2:41 PM EDT [facility] Nurse Navigator Call for the Comprehensive Breast Program (CBP) Nataliya Morfin is a 48 y.o. female with ER/WY+/Her-2 negative left breast cancer. She met with Dr. Dawson on 01/24 in surgical oncology consultation. Reason for call: contacted Nataliya per request of Dr. Dawson regarding upcoming breast biopsy appt. on 01/31. (Breast MRI 01/20 and left breast U/S 01/24: our radiologist recommend ultrasound- guided biopsy of (left) lesion #2 and lesion #3). Plan: Nataliya states she is fine with the date and time of this appt. on 01/31. She has our contact numbers and thanked us for our time. documented in this encounter Plan of Treatment Upcoming Encounters Date Type Department Care Team (Latest Contact Info) Description 04/22/2024 9:45 AM EST Scheduled View Only Radiation Oncology at [address] [address] 04/25/2024 8:30 AM EST Scheduled View Only Radiation Oncology at [address] [address] 04/26/2024 3:00 PM EST Scheduled View Only Radiation Oncology at [address] [address] 04/26/2024 3:30 PM EST Office Visit Radiation Oncology at [address] [address] Ofe Fonseca MD [facility] [place] [address] 04/28/2024 2:45 PM EST Scheduled View Only Radiation Oncology at [address] [address] 04/29/2024 3:00 PM EST Scheduled View Only Radiation Oncology at [address] [address] 05/02/2024 3:45 PM EST Scheduled View Only Radiation Oncology at [address] [address] 05/03/2024 1:45 PM EST Scheduled View Only Radiation Oncology at [address] [address] 05/03/2024 2:15 PM EST Office Visit Radiation Oncology at [address] [address] Ofe Fonseca MD [facility] [place] [address] 05/05/2024 8:15 AM EST Scheduled View Only Radiation Oncology at [address] [address] 05/06/2024 12:30 PM EST Scheduled View Only Radiation Oncology at [address] [address] 05/09/2024 3:00 PM EST Scheduled View Only Radiation Oncology at [address] [address] 05/10/2024 2:30 PM EST Scheduled View Only Radiation Oncology at [address] [address] 05/10/2024 3:15 PM EST Office Visit Radiation Oncology at [address] [address] Ofe Fonseca MD [facility] [place] [address] 05/11/2024 2:45 PM EST Scheduled View Only Radiation Oncology at [address] [address] 06/03/2024 3:30 PM EST Appointment Ultrasound at [place] [phone] Mira Hutchison, [facility] [place] [address] 06/23/2024 4:00 PM EST Appointment Mammography/DXA at [place] [phone] Miryam Feliciano MD [facility] [place] [address] 07/12/2024 8:00 AM EDT Laboratory Appointment Lab [address] [place], [place] [phone] 07/12/2024 9:30 AM EDT Office Visit Nephrology Hypertension at [place] [phone] Sharmin Jean-Baptiste, [facility] [place] [address] 07/13/2024 10:30 AM EDT Laboratory Appointment Lab at [facility] Hematology Oncology [address] [place] [phone] 07/13/2024 11:30 AM EDT Office Visit Hematology [place] [address] Salena Alvares, [facility] [address] 07/13/2024 12:45 PM EDT Appointment Hematology [place] [phone] documented as of this encounter Visit Diagnoses Not on filedocumented in this encounter Care Teams Entry Table Operator Relationship Specialty Start Date End Date Haylie Steward MD [facility] [place] [address] PCP - General General Internal Medicine 08/04/22 documented as of this encounter
--- OUTSIDE RECORDS SUMMARY | 2024-04-22 00:21 | XMS_ITS | Encounter Summary ---
Author Organization [facility] [place] [address] Care Team Providers Care Hair Designer Name Role Phone Haylie Steward MD Primary Care Provider + [phone] Encounter Details Date Type Department Care Team (Latest Contact Info) Description 01/28/2024 Travel Social History Tobacco Use Types Packs/Day [...] EST Scheduled View Only Radiation Oncology at [address] [address] 04/25/2024 8:30 AM EST Scheduled View Only Radiation Oncology at [address] [address] 04/26/2024 3:00 PM EST Scheduled View Only Radiation Oncology at [address] [address] 04/26/2024 3:30 PM EST Office Visit Radiation Oncology at [address] [address] Ofe Fonseca MD [facility] DR [facility] [address] 04/28/2024 2:45 PM EST Scheduled View Only Radiation Oncology at [address] [address] 04/29/2024 3:00 PM EST Scheduled View Only Radiation Oncology at [address] [address] 05/02/2024 3:45 PM EST Scheduled View Only Radiation Oncology at [address] [address] 05/03/2024 1:45 PM EST Scheduled View Only Radiation Oncology at [address] [address] 05/03/2024 2:15 PM EST Office Visit Radiation Oncology at [address] [address] Ofe Fonseca MD [facility] [place] [address] 05/05/2024 8:15 AM EST Scheduled View Only Radiation Oncology at [address] [address] 05/06/2024 12:30 PM EST Scheduled View Only Radiation Oncology at [address] [address] 05/09/2024 3:00 PM EST Scheduled View Only Radiation Oncology at [address] [address] 05/10/2024 2:30 PM EST Scheduled View Only Radiation Oncology at [address] [address] 05/10/2024 3:15 PM EST Office Visit Radiation Oncology at [address] [address] Ofe Fonseca MD [facility] [place] [address] 05/11/2024 2:45 PM EST Scheduled View Only Radiation Oncology at [address] [address] 06/03/2024 3:30 PM EST Appointment [place] [phone] Mira Hutchison APRN [facility] [place] [address] 06/23/2024 4:00 PM EST Appointment Mammography/[place] [address] Miryam Feliciano MD [facility] [place] [address] 07/12/2024 8:00 AM EDT Laboratory Appointment Lab [place] [address] 07/12/2024 9:30 AM EDT Office Visit Nephrology [place] [address] Sharmin Jean-Baptiste, [facility] [place] [address] 07/13/2024 10:30 AM EDT Laboratory Appointment Lab at [facility] Hematology Oncology [address] [place] [address] 07/13/2024 11:30 AM EDT Office Visit Hematology and Oncology at [place] [phone] Salena Alvares, [facility] [place] [address] 07/13/2024 12:45 PM EDT Appointment Hematology and Oncology at [place] [address] documented as of this encounter Visit Diagnoses Not on filedocumented in this encounter Care Teams Hair Designer Relationship Specialty Start Date [place] [address] PCP - General General Internal Medicine 08/04/22 documented as of this encounter
--- OUTSIDE RECORDS SUMMARY | 2024-04-22 00:21 | XMS_ITS | Encounter Summary ---
[place] [address] Care Team Providers Care Senior Product Designer Name Role Phone Haylie Steward MD Primary Care Provider + [phone] Reason for Referral * Diagnostic Test (Routine) - Authorized Specialty Diagnoses / Procedures Referred By Contac heike Referred To Contact Radiology Diagnoses History of breast cancer Procedures Mammo Magtrace Mignon Dawson MD [facility] [place] [address] [facility] [place] [address] Referral ID Status Reason Start Date Expiration Date Visits Requested Visits Authorized [id number] Authorized Specialty Service Requested 01/28/2024 07/27/2025 1 1 Encounter Details Date Type Department Care Team (Late st Contact Info) Description 01/28/2024 Orders Only [place] [address] Mignon Dawson MD [facility] [place] [address] History of breast cancer Social History Tobacco Use Types Packs/Day Years [...] EST Scheduled View Only Radiation Oncology at [address] [address] 04/25/2024 8:30 AM EST Scheduled View Only Radiation Oncology at [address] [address] 04/26/2024 3:00 PM EST Scheduled View Only Radiation Oncology at [address] [address] 04/26/2024 3:30 PM EST Office Visit Radiation Oncology at [address] [address] Ofe Fonseca MD [facility] [place] [address] 04/28/2024 2:45 PM EST Scheduled View Only Radiation Oncology at [address] [address] 04/29/2024 3:00 PM EST Scheduled View Only Radiation Oncology at [address] [address] 05/02/2024 3:45 PM EST Scheduled View Only Radiation Oncology at [address] [address] 05/03/2024 1:45 PM EST Scheduled View Only Radiation Oncology at [address] [address] 05/03/2024 2:15 PM EST Office Visit Radiation Oncology at [address] [address] Ofe Fonseca MD [facility] [place] [address] 05/05/2024 8:15 AM EST Scheduled View Only Radiation Oncology at [address] [address] 05/06/2024 12:30 PM EST Scheduled View Only Radiation Oncology at [address] [address] 05/09/2024 3:00 PM EST Scheduled View Only Radiation Oncology at [address] [address] 05/10/2024 2:30 PM EST Scheduled View Only Radiation Oncology at [address] [address] 05/10/2024 3:15 PM EST Office Visit Radiation Oncology at [address] [address] Ofe Fonseca MD [facility] [place] [address] 05/11/2024 2:45 PM EST Scheduled View Only Radiation Oncology at [address] [address] 06/03/2024 3:30 PM EST Appointment Ultrasound at [address] Mira Hutchison [facility] [place] [address] 06/23/2024 4:00 PM EST Appointment Mammography/[place] [address] Miryam Feliciano MD [facility] [place] [address] 07/12/2024 8:00 AM EDT Laboratory Appointment Lab [address] [place] [address] 07/12/2024 9:30 AM EDT Office Visit [place] [address] Sharmin Jean-Baptiste [facility] [place] [address] 07/13/2024 10:30 AM EDT Laboratory Appointment Lab at [facility] Hematology Oncology [address] [place], [place] [phone] 07/13/2024 11:30 AM EDT Office Visit Hematology and Oncology at [place] [phone] Salena Alvares [facility] [place] [address] 07/13/2024 12:45 PM EDT Appointment Hematology and Oncology at [place] [phone] Scheduled Orders Name Type Priority Associated Diagnoses Orde r Schedule Mammo Magtrace Imaging Routine History of breast cancer Expected: 01/28/2024, Expires: 04/28/2024 documented as of this encounter Results * Mammo Specimen Left (02/05/2024 2:53 PM EDT) WORKSTATION ID [id number] 1 RAD Anatomical Region [...] who have questions please contact the health emergency care tech that requested your imaging first. ? Electronically signed by: Aleida Bolanos MD, [facility] ([phone]), at 02/05/2024 3:17 PM [facility] [address] [place], [place] ??[address] Mignon Daswon MD IMG MAMMO ORDERABLE S * Mammo Specimen Left (02/05/2024 2:24 PM EDT) WORKSTATION ID [id number] 1 RAD Anatomical Region [...] who have questions please contact the health emergency care tech that requested your imaging first. ? Electronically signed by: Aleida Bolanos MD, [facility] ([phone]), at 02/11/2024 11:11 AM [facility] [address] [place], [place] ??[address] Mignon Dawson MD IMG MAMMO ORDERABLE S documented in this encounter Visit Diagnoses Diagnosis History of breast cancer Personal history of malignant neoplasm of breast History of breast cancer Personal history of malignant neoplasm of breast History of breast cancer Personal history of malignant neoplasm of breast documented in this encounter Care Teams Senior Product Designer Relationship Specialty Start Date [place] [address] PCP - General General Internal Medicine 08/04/22 documented as of this encounter
--- OUTSIDE RECORDS SUMMARY | 2024-04-22 00:21 | XMS_ITS | Encounter Summary ---
Author Organization [facility] [place] [address] Care Team Providers Care Heel Coverer Machine Operator Name Role Phone Haylie Steward MD Primary Care Provider + [phone] Encounter Details Date Type Department Care Team (Latest Contact Info) Description 01/21/2024 Travel Social History Tobacco Use Types Packs/Day [...] EST Scheduled View Only Radiation Oncology at [address] [address] 04/25/2024 8:30 AM EST Scheduled View Only Radiation Oncology at [address] [address] 04/26/2024 3:00 PM EST Scheduled View Only Radiation Oncology at [address] [address] 04/26/2024 3:30 PM EST Office Visit Radiation Oncology at [address] [address] Ofe Fonseca MD [facility] DR [place] [address] 04/28/2024 2:45 PM EST Scheduled View Only Radiation Oncology at [address] [address] 04/29/2024 3:00 PM EST Scheduled View Only Radiation Oncology at [address] [address] 05/02/2024 3:45 PM EST Scheduled View Only Radiation Oncology at [address] [address] 05/03/2024 1:45 PM EST Scheduled View Only Radiation Oncology at [address] [address] 05/03/2024 2:15 PM EST Office Visit Radiation Oncology at [address] [address] Ofe Fonseca MD [facility] [place] [address] 05/05/2024 8:15 AM EST Scheduled View Only Radiation Oncology at [address] [address] 05/06/2024 12:30 PM EST Scheduled View Only Radiation Oncology at [address] [address] 05/09/2024 3:00 PM EST Scheduled View Only Radiation Oncology at [address] [address] 05/10/2024 2:30 PM EST Scheduled View Only Radiation Oncology at [address] [address] 05/10/2024 3:15 PM EST Office Visit Radiation Oncology at [address] [address] Ofe Fonseca MD [facility] [place] [address] 05/11/2024 2:45 PM EST Scheduled View Only Radiation Oncology at [address] [address] 06/03/2024 3:30 PM EST [place] [address] Mira Hutchison APRN [facility] [place] [address] 06/23/2024 4:00 PM EST Appointment Mammography/[place] [address] Miryam Feliciano MD [facility] [place] [address] 07/12/2024 8:00 AM EDT Laboratory Appointment Lab 3[place] [address] 07/12/2024 9:30 AM EDT Office Visit [place] [address] Sharmin Jean-Baptiste, [facility] [place] [address] 07/13/2024 10:30 AM EDT Laboratory Appointment Lab at [facility] [place]ology Oncology [address] [place] [address] 07/13/2024 11:30 AM EDT Office Visit Hematology and Oncology at [place] [phone] Salena Alvares, [facility] [place] [address] 07/13/2024 12:45 PM EDT Appointment Hematology and Oncology at [place] [address] documented as of this encounter Visit Diagnoses Not on filedocumented in this encounter Care Teams Heel Coverer Machine Operator Relationship Specialty Start Date [place] [address] PCP - General General Internal Medicine 08/04/22 documented as of this encounter
--- OUTSIDE RECORDS SUMMARY | 2024-04-22 00:21 | XMS_ITS | Encounter Summary ---
Author Organization [facility] [place] [address] Care Team Providers Care Retail Field Merchandiser Name Role Phone Haylie Steward MD Primary Care Provider + [phone] Encounter Details Date Type Department Care Team (Latest Contact Info) Description 01/24/2024 Travel Social History Tobacco Use Types Packs/Day [...] Scheduled View Only Radiation Oncology at [address] [address] 04/25/2024 8:30 AM EST Scheduled View Only Radiation Oncology at [address] [address] 04/26/2024 3:00 PM EST Scheduled View Only Radiation Oncology at [address] [address] 04/26/2024 3:30 PM EST Office Visit Radiation Oncology at [address] [address] Ofe Fonseca MD [facility] DR [place] [address] 04/28/2024 2:45 PM EST Scheduled View Only Radiation Oncology at [address] [address] 04/29/2024 3:00 PM EST Scheduled View Only Radiation Oncology at [address] [address] 05/02/2024 3:45 PM EST Scheduled View Only Radiation Oncology at [address] [address] 05/03/2024 1:45 PM EST Scheduled View Only Radiation Oncology at [address] [address] 05/03/2024 2:15 PM EST Office Visit Radiation Oncology at [address] [address] Ofe Fonseca MD [facility] [place] [address] 05/05/2024 8:15 AM EST Scheduled View Only Radiation Oncology at [address] [address] 05/06/2024 12:30 PM EST Scheduled View Only Radiation Oncology at [address] [address] 05/09/2024 3:00 PM EST Scheduled View Only Radiation Oncology at [address] [address] 05/10/2024 2:30 PM EST Scheduled View Only Radiation Oncology at [address] [address] 05/10/2024 3:15 PM EST Office Visit Radiation Oncology at [address] [address] Ofe Fonseca MD [facility] [place] [address] 05/11/2024 2:45 PM EST Scheduled View Only Radiation Oncology at [address] [address] 06/03/2024 3:30 PM EST Appointment [place] [address] Mira Hutchison APRN [facility] [address] 06/23/2024 4:00 PM EST Appointment Mammography/[place] [address] Miryam Feliciano MD [facility] [place] [address] 07/12/2024 8:00 AM EDT Laboratory Appointment Lab [address] [address] 07/12/2024 9:30 AM EDT Office Visit Nephrology [place] [address] Sharmin Jean-Baptiste, [facility] [place] [address] 07/13/2024 10:30 AM EDT Laboratory Appointment Lab at [facility] Hematology Oncology [address] [place] [address] 07/13/2024 11:30 AM EDT Office Visit Hematology and Oncology at [place] [phone] Salena Alvares, [facility] [place] [address] 07/13/2024 12:45 PM EDT Appointment Hematology and Oncology at [place] [address] documented as of this encounter Visit Diagnoses Not on filedocumented in this encounter Care Teams Retail Field Merchandiser Relationship Specialty Start Date [place] [address] PCP - General General Internal Medicine 08/04/22 documented as of this encounter
--- OUTSIDE RECORDS SUMMARY | 2024-04-22 00:21 | XMS_ITS | Encounter Summary ---
Author Organization [facility] [place] [address] Care Team Providers Care Cocoa Powder Mixer Operator Name Role Phone Haylie Steward MD Primary Care Provider [phone] Encounter Details Date Type Department Care Team (Late st Contact Info) Description 01/18/2024 Notes Only General Surgery at [facility] [place] [phone] Madison Ng Social History Tobacco Use Types Packs/Day Years [...] doctor or pharmacy? Rarely 02/15/2024 [facility] Utilities Answer Date Recorded In the past 12 months has [facility] [employer], gas, oil, or water [employer] threatened to shut off services in your [...] time in the past 12 m [place], were you homeless or living in a [...] as of this encounter Progress Notes * Madison Ng - 01/18/2024 5:04 PM EDT New Breast Cancer Referral Nataliya Morfin [id number] Biopsy Location: Biopsy Date:01/13/24 Date of referral:01.18.24 [x]Packet sent [x]Patient notified of appointments [] Nakia to deliver packet at first appt Diagnoses: Left breast, core needle biopsy: - Invasive ductal carcinoma, low grade (modified SBR score = 5), measuring at least 6 mm. - Lymphovascular invasion absent. 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 Receptors: ER/NV+ Her 2 - Tumor size: 6mm Scans: MRI 01/21/24 Lab: 01/21/24 Surgeon: Samir 01/25/24 - Post/op 03/02/24(per Hailey move to 930 on 03.03.24) Confirmed with pt through portal on 02.16.24. Post/op with Yoselin Rolle 04.07.24 to c/w Dr. Feliciano [employer]: Date of Surgery:03.07.24 Med/Onc: Jodie 04.07.24 Rad/Onc:[facility] - 02.22.24 Physical Therapy: Outside Records: [x]Path slides [x] Images [x] Clinic notes [] Image review ordered Neoadjuvant []Yes []No Pt responded to [facility] message 02.16.24 [facility]'s Perla and Yoselin to 04/07 Per Perla - Pt agrees to this plan documented in this encounter Plan of Treatment Upcoming Encounters Date Type Department Care Team (Latest Contact Info) Description 04/22/2024 9:45 AM EST Scheduled View Only Radiation Oncology at [address] [phone] 04/25/2024 8:30 AM EST Scheduled View Only Radiation Oncology at [address] [phone] 04/26/2024 3:00 PM EST Scheduled View Only Radiation Oncology at [address] [address] 04/26/2024 3:30 PM EST Office Visit Radiation Oncology at [address] [address] Ofe Fonseca MD [facility] RADIATION [place] [address] 04/28/2024 2:45 PM EST Scheduled View Only Radiation Oncology at [address] [address] 04/29/2024 3:00 PM EST Scheduled View Only Radiation Oncology at [address] [address] 05/02/2024 3:45 PM EST Scheduled View Only Radiation Oncology at [address] [address] 05/03/2024 1:45 PM EST Scheduled View Only Radiation Oncology at [address] [phone] 05/03/2024 2:15 PM EST Office Visit Radiation Oncology at [address] [address] Ofe Fonseca MD [facility] [place] [address] 05/05/2024 8:15 AM EST Scheduled View Only Radiation Oncology at [address] [address] 05/06/2024 12:30 PM EST Scheduled View Only Radiation Oncology at [address] [phone] 05/09/2024 3:00 PM EST Scheduled View Only Radiation Oncology at [address] [address] 05/10/2024 2:30 PM EST Scheduled View Only Radiation Oncology at [address] [address] 05/10/2024 3:15 PM EST Office Visit Radiation Oncology at [address] [address] Ofe Fonseca MD [facility] [place] [address] 05/11/2024 2:45 PM EST Scheduled View Only Radiation Oncology at [address] [address] 06/03/2024 3:30 PM EST [place] [address] Mira Hutchison APRN [facility] [address] 06/23/2024 4:00 PM EST Appointment Mammography/[place] [phone] Miryam Feliciano MD [facility] [place] [address] 07/12/2024 8:00 AM EDT Laboratory Appointment Lab [address] [address] 07/12/2024 9:30 AM EDT Office Visit Nephrology [place] [phone] Sharmin Jean-Baptiste, [facility] [place] [address] 07/13/2024 10:30 AM EDT Laboratory Appointment Lab at [place] Hematology Oncology [address] [place], [place] [phone] 07/13/2024 11:30 AM EDT Office Visit Hematology and Oncology at [place] [phone] Salena Alvares, [facility] [place] [address] 07/13/2024 12:45 PM EDT Appointment Hematology and Oncology at [place] [phone] documented as of this encounter Visit Diagnoses Not on filedocumented in this encounter Care Teams Cocoa Powder Mixer Operator Relationship Specialty Start Date [place] [address] PCP - General General Internal Medicine 08/04/22 documented as of this encounter
--- OUTSIDE RECORDS SUMMARY | 2024-04-22 00:21 | XMS_ITS | Encounter Summary ---
[place] [address] Care Team Providers Care Home Health Assistant Name Role Phone Haylie Steward MD Primary Care Provider + [phone] Encounter Details Date Type Department Care Team (Latest Contact Info) Description 01/21/2024 9:15 AM EDT Laboratory Appointment Lab [address] [place] [phone] Malignant neoplasm of left female breast, unspecified [...] Scheduled View Only Radiation Oncology at [address] [phone] 04/25/2024 8:30 AM EST Scheduled View Only Radiation Oncology at [address] [address] 04/26/2024 3:00 PM EST Scheduled View Only Radiation Oncology at [address] [address] 04/26/2024 3:30 PM EST Office Visit Radiation Oncology at [address] [address] Ofe Fonseca MD [facility] RADI[place] [address] 04/28/2024 2:45 PM EST Scheduled View Only Radiation Oncology at [address] [address] 04/29/2024 3:00 PM EST Scheduled View Only Radiation Oncology at [address] [address] 05/02/2024 3:45 PM EST Scheduled View Only Radiation Oncology at [address] [address] 05/03/2024 1:45 PM EST Scheduled View Only Radiation Oncology at [address] [phone] 05/03/2024 2:15 PM EST Office Visit Radiation Oncology at [address] [address] Ofe Fonseca MD [facility] DR [place] [address] 05/05/2024 8:15 AM EST Scheduled View Only Radiation Oncology at [address] [phone] 05/06/2024 12:30 PM EST Scheduled View Only Radiation Oncology at [address] [phone] 05/09/2024 3:00 PM EST Scheduled View Only Radiation Oncology at [address] [address] 05/10/2024 2:30 PM EST Scheduled View Only Radiation Oncology at [address] [address] 05/10/2024 3:15 PM EST Office Visit Radiation Oncology at [address] [address] Ofe Fonseca MD [facility] DR [place] [address] 05/11/2024 2:45 PM EST Scheduled View Only Radiation Oncology at [address] [address] 06/03/2024 3:30 PM EST [place] [phone] Mira Hutchison APRN [facility] [place] [address] 06/23/2024 4:00 PM EST Appointment Mammography/[place] [phone] Miryam Feliciano MD [facility] DR [place] [address] 07/12/2024 8:00 AM EDT Laboratory Appointment Lab [address] [place] [address] 07/12/2024 9:30 AM EDT Office Visit [place] [address] Sharmin Jean-Baptiste, [facility] [place] [address] 07/13/2024 10:30 AM EDT Laboratory Appointment Lab at [facility] [place]ematology Oncology [address] [place] [phone] 07/13/2024 11:30 AM EDT Office Visit Hematology [place] [phone] Salena Alvares, [facility] [place] [address] 07/13/2024 12:45 PM EDT Appointment Hematology [place] [address] documented as of this encounter Procedures Procedure Name Priority Date/Time Associated Diagnosis Comments CBC (WITH DIFF) Routine 01/21/2024 9:13 AM EDT Malignant neoplasm of left female breast, unspecified estrogen receptor status, unspecified site of breast COMPREHENSIVE METABOLIC PANEL Routine 01/21/2024 9:13 AM EDT Malignant neoplasm of left female breast, unspecified estrogen receptor status, unspecified site of breast documented in this encounter Results * (ABNORMAL) Comprehensive metabolic panel Non-fasting (01/21/2024 9:13 AM EDT) Glucose 77 65 - 99 mg/dL 01/21/2024 9:58 AM EDT [facility] Comment: Fasting Glucose Interpretive Criteria: [...] 8 - 18 mg/dL 01/21/2024 9:58 AM [facility] Creatinine 1.03 0.70 - 1.20 mg/dL 01/21/2024 9:58 AM [facility] Sodium 143 135 - 145 mMol/L 01/21/2024 9:58 AM [facility] Potassium 4.3 3.5 - 5.0 mMol/L 01/21/2024 9:58 AM [facility] Chloride 109(H) 98 - 107 mMol/L 01/21/2024 9:58 AM [facility] Carbon Dioxide 23 22 - 31 mMol/L 01/21/2024 9:58 AM [facility] Anion Gap 11 5 - 15 mMol/L 01/21/2024 9:58 AM [facility] Calcium 10.1 8.5 - 10.5 mg/dL 01/21/2024 9:58 AM [facility] Protein, Total 6.8 6.1 - 8.0 g/dL 01/21/2024 9:58 AM [facility] Albumin 4.1 3.2 - 5.2 g/dL 01/21/2024 9:58 AM [facility] Aspartate Aminotransferase 23 <=30 unit/L 01/21/2024 9:58 AM [facility] Alanine Aminotransferase 25 0 - 30 unit/L 01/21/2024 9:58 AM [facility] Alkaline Phosphatase 82 35 - 105 unit/L 01/21/2024 9:58 AM [facility] Bilirubin, Total 0.2 <=1.3 mg/dL 01/21/2024 9:58 AM [facility] Est Glomerular Filtration Rate - Female 67 mL/min/1. 73 m?? 01/21/2024 9:58 AM [facility] Comment: This patient's estimated GFR [...] Foundation Fasting Status Yes 01/21/2024 9:58 AM [facility] Blood VENOUS BLOOD SPECIMEN / Unknown Venipuncture / Unknown 01/21/2024 9:13 AM EDT 01/21/2024 9:13 AM EDT Hailey Dawson MD CHEMISTRY ORDERABLE S [facility] [place] [address] * (ABNORMAL) CBC (with Diff) (01/21/2024 9:13 AM EDT) White Blood Cell 5.97 4.00 - 9.50 x10(3)/mc L 01/21/2024 10:06 AM [facility] Red Blood Cell 4.71 4.00 - 5.21 x10(6)/mc L 01/21/2024 10:06 AM [facility] Hemoglobin 14.6 11.7 - 15.5 g/dL 01/21/2024 10:06 AM [facility] Hematocrit 46.2(H) 35.7 - 45.8 % 01/21/2024 10:06 AM [facility] Mean Cell Volume 98.1(H) 82.6 - 94.4 fL 01/21/2024 10:06 AM [facility] Mean Cell Hemoglobin 31.0 27.1 - 32.0 pg 01/21/2024 10:06 AM [facility] Mean Cell Hemoglobin Concentration 31.6(L) 31.7 - 35.0 g/dL 01/21/2024 10:06 AM [facility] Platelet 226 145 - 357 x10(3)/mc L 01/21/2024 10:06 AM [facility] Mean Platelet Volume 9.6 7.6 - 12.9 fL 01/21/2024 10:06 AM [facility] RDW Standard Deviation 47.8(H) 37.0 - 46.0 fL 01/21/2024 10:06 AM [facility] RDW coefficient of variation 13.2 11.5 - 14.1 % 01/21/2024 10:06 AM [facility] NRBC% auto 0.0 % 01/21/2024 10:06 AM [facility] NRBC Absolute <0.01(H) 0.00 - 0.00 x10(3)/mc L 01/21/2024 10:06 AM [facility] Neutrophil % 61.7 % 01/21/2024 10:06 AM [facility] Neutrophil Absolute (ANC) - Automated 3.68 1.70 - 6.10 x10(3)/mc L 01/21/2024 10:06 AM [facility] Lymph % 26.5 % 01/21/2024 10:06 AM [facility] Lymph Absolute 1.58 0.90 - 3.20 x10(3)/mc L 01/21/2024 10:06 AM [facility] Monocyte % 8.5 % 01/21/2024 10:06 AM [facility] Monocyte Absolute 0.51 0.30 - 0.90 x10(3)/mc L 01/21/2024 10:06 AM [facility] Eos % 2.5 % 01/21/2024 10:06 AM EDT [facility] Eos Absolute 0.15 0.00 - 0.40 x10(3)/mc L 01/21/2024 10:06 AM EDT [facility] Basophil % 0.3 % 01/21/2024 10:06 AM EDT [facility] Baso Absolute <0.04 0.00 - 0.10 x10(3)/mc L 01/21/2024 10:06 AM EDT [facility] Immature Gran % 0.5 % 10:06 AM EDT [facility] Immature Gran Absolute <0.04 0.00 - 0.04 x10(3)/mc L 01/21/2024 10:06 AM EDT [facility] Blood VENOUS BLOOD SPECIMEN / Unknown Venipuncture / Unknown 01/21/2024 9:13 AM EDT 01/21/2024 9:13 AM EDT Hailey Dawson MD HEMATOLOGY ORDERABL ES [facility] [place] [address] documented in this encounter Visit Diagnoses Diagnosis Malignant neoplasm of left female breast, unspecified estrogen receptor status, unspecified site of breast documented in this encounter Care Teams Home Health Assistant Relationship Specialty Start Date End Date Haylie Steward [place] [address] PCP - General General Internal Medicine 08/04/22 documented as of this encounter
--- OUTSIDE RECORDS SUMMARY | 2024-04-22 00:21 | XMS_ITS | Encounter Summary ---
[place] [address] Care Team Providers Care Snagger Name Role Phone Haylie Steward MD Primary Care Provider + [phone] Reason for Visit * Consultation (Urgent) - Authorized Specialty Diagnoses / Procedures Referred By Contac t Referred To Contact Surgical Oncology / General Surgery Diagnoses Malignant neoplasm of unspecified site of left female breast Date and time per Hailey Knight BREAST, INVASIVE DUCTAL CARCINOMA, LOW GRADE, W/ DCIS Procedures [facility] [place] [address] [place] [address] Hailey Dawson MD [facility] [place] [address] Referral ID Status Reason Start Date Expiration Date Visits Requested Visits Authorized [id number] Authorized Consult, Test & Treat PCP Updated and/or Approved 01/17/2024 07/16/2024 6 6 Encounter Details Date Type Department Care Team (Late st Contact Info) Description 01/25/2024 7:00 AM EDT Office [place] [address] Hailey Dawson MD [facility] [place] [address] History of breast cancer; Malignant neoplasm of [...] Sign Reading Time Taken Comments Blood Pressure 163/82 01/25/2024 6:58 AM EDT Pulse 84 01/25/2024 6:58 AM EDT Temperature 36.2 ??C (97.2 ??F) 01/25/2024 6:58 AM ED T Respiratory Rate 16 01/25/2024 6:58 AM EDT Oxygen Saturation 97% 01/25/2024 6:58 AM EDT Inhaled Oxygen Concentration - - Weight - - Height - - Body Mass Index - - documented in this encounter Progress Notes * Hailey Dawson MD - 01/25/2024 7:00 AM EDT Subjective Patient ID: Nataliya Morfin is a 48 y.o. female. HPI Nataliya is a 48 yo female [...] was suspicious and biopsy confirmed low grade ER/AK+ IDC , her2 negative. Given breast density, [...] salivary gland cancer SH: non smoker. 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 . Past Medical History: Diagnosis Date Bipolar 1 [...] years of endocrine therapy for management of er+ disease. I will follow up with Nataliya pending call back imaging. Risks of surgery including bleeding, infection, need for additional surgery and lymphedema were discussed. We will finalize the surgical plan once we have results from pending evaluation. documented in this encounter Plan of Treatment Upcoming Encounters Date Type Department Care Team (Latest Contact Info) Description 04/22/2024 9:45 AM EST Scheduled View Only Radiation Oncology at [address] [address] 04/25/2024 8:30 AM EST Scheduled View Only Radiation Oncology at [address] [address] 04/26/2024 3:00 PM EST Scheduled View Only Radiation Oncology at [address] [address] 04/26/2024 3:30 PM EST Office Visit Radiation Oncology at [address] [phone] Ofe Fonseca MD [facility] [place] [address] 04/28/2024 2:45 PM EST Scheduled View Only Radiation Oncology at [address] [address] 04/29/2024 3:00 PM EST Scheduled View Only Radiation Oncology at [address] [address] 05/02/2024 3:45 PM EST Scheduled View Only Radiation Oncology at [address] [phone] 05/03/2024 1:45 PM EST Scheduled View Only Radiation Oncology at [address] [phone] 05/03/2024 2:15 PM EST Office Visit Radiation Oncology at [address] [address] Ofe Fonseca MD [facility] [place] [address] 05/05/2024 8:15 AM EST Scheduled View Only Radiation Oncology at [address] [phone] 05/06/2024 12:30 PM EST Scheduled View Only Radiation Oncology at [address] [address] 05/09/2024 3:00 PM EST Scheduled View Only Radiation Oncology at [address] [address] 05/10/2024 2:30 PM EST Scheduled View Only Radiation Oncology at [address] [phone] 05/10/2024 3:15 PM EST Office Visit Radiation Oncology at [address] [phone] Ofe Fonseca MD [facility] [place] [address] 05/11/2024 2:45 PM EST Scheduled View Only Radiation Oncology at [address] [phone] 06/03/2024 3:30 PM EST Appointment Ultrasound at [place] [phone] Mira Hutchison, [facility] [address] 06/23/2024 4:00 PM EST Appointment Mammography/DXA at [place] [phone] Miryam Feliciano MD [facility] [place] [address] 07/12/2024 8:00 AM EDT Laboratory Appointment Lab [address] [place], [place] [phone] 07/12/2024 9:30 AM EDT Office Visit Nephrology Hypertension at [place] [phone] Sharmin Jean-Baptiste, [facility] [address] 07/13/2024 10:30 AM EDT Laboratory Appointment Lab at [facility] [place] [address] [place] [phone] 07/13/2024 11:30 AM EDT Office Visit Hematology [place] [phone] Salena Alvares, [facility] [place] [address] 07/13/2024 12:45 PM EDT Appointment Hematology and Oncology at [place] [phone] documented as of this encounter Results * Mammo Magseed Placement Multiple Left (02/01/2024 10:17 AM EDT) WORKSTATION ID [id number] 1 RAD Anatomical [...] who have questions please contact the health critical care transport nurse that requested your imaging first. ? Formerly [facility] [place] ??[id number] Narrative 02/01/2024 1:27 PM EDT EXAMINATION: MAMMO [...] Personal history of malignant neoplasm of breast Malignant neoplasm of lower-inner quadrant of left breast in female, estrogen receptor positive History of breast cancer Personal history of malignant neoplasm of breast documented in this encounter Care Teams Snagger Relationship Specialty Start Date End Date Haylie Steward MD [facility] [place] [address] PCP - General General Internal Medicine 08/04/22 documented as of this encounter
--- OUTSIDE RECORDS SUMMARY | 2024-04-22 00:21 | XMS_ITS | Encounter Summary ---
Author Organization [facility] [place] [address] Care Team Providers Care Senior Enterprise Architect Name Role Phone Haylie Steward MD Primary Care Provider + [phone] Encounter Details Date Type Department Care Team (Late st Contact Info) Description 01/14/2024 Interpretation Only [address] [address] Mario Lee MD [facility] DR [place] [address] Social History Tobacco Use Types Packs/Day Years [...] Scheduled View Only Radiation Oncology at [address] [address] 04/25/2024 8:30 AM EST Scheduled View Only Radiation Oncology at [address] [address] 04/26/2024 3:00 PM EST Scheduled View Only Radiation Oncology at [address] [address] 04/26/2024 3:30 PM EST Office Visit Radiation Oncology at [address] [address] Ofe Fonseca MD [facility] [place] [address] 04/28/2024 2:45 PM EST Scheduled View Only Radiation Oncology at [address] [address] 04/29/2024 3:00 PM EST Scheduled View Only Radiation Oncology at [address] [address] 05/02/2024 3:45 PM EST Scheduled View Only Radiation Oncology at [address] [address] 05/03/2024 1:45 PM EST Scheduled View Only Radiation Oncology at [address] [address] 05/03/2024 2:15 PM EST Office Visit Radiation Oncology at [address] [address] Ofe Fonseca MD [facility] [place] [address] 05/05/2024 8:15 AM EST Scheduled View Only Radiation Oncology at [address] [address] 05/06/2024 12:30 PM EST Scheduled View Only Radiation Oncology at [address] [address] 05/09/2024 3:00 PM EST Scheduled View Only Radiation Oncology at [address] [address] 05/10/2024 2:30 PM EST Scheduled View Only Radiation Oncology at [address] [address] 05/10/2024 3:15 PM EST Office Visit Radiation Oncology at [address] [address] Ofe Fonseca MD [facility] [place] [address] 05/11/2024 2:45 PM EST Scheduled View Only Radiation Oncology at [address] [address] 06/03/2024 3:30 PM EST Appointment [place] [address] Mira Hutchison BATTERY INSTALLER [facility] [address] 06/23/2024 4:00 PM EST Appointment Mammography/DXA at [place] [phone] Miryam Feliciano MD [facility] [place] [address] 07/12/2024 8:00 AM EDT Laboratory Appointment Lab [place] [phone] 07/12/2024 9:30 AM EDT Office Visit Nephrology Hypertension at [place] [phone] Sharmin Jean-Baptiste BAT[employer] INST[employer]ER [facility] [place] [address] 07/13/2024 10:30 AM EDT Laboratory Appointment Lab [place] [facility] [place] [address] [place] [phone] 07/13/2024 11:30 AM EDT Office Visit Hematology [place] [address] Salena Alvares APRN [facility] DR MEDICAL ONCOLOGY [place] [phone] 07/13/2024 12:45 PM EDT Appointment Hematology [place] [address] documented as of this encounter Procedures Procedure Name Priority Date/Time Associated Diagnosis Comments MAMMO BREAST US LIMITED LEFT Routine 01/14/2024 1:23 PM EDT documented in this encounter Results * US Breast Limited Left (01/14/2024 1:23 PM EDT) PT CLASS O RAD ADMITDTTM [id number] RAD PT RAD MD INFO [id number]^Viazme nski^Mario RAD EXAM DESC MAUBRL^US Breast Limited Left.^RIS RAD WORKSTATION ID [id number] RAD Anatomical Region Laterality Modality Breast Left Mammography 01/14/2024 12:3 6 PM EDT Impressions 01/14/2024 2:17 PM EDT Suspicious breast mass FINAL ASSESSMENT: BI-RADS Category 4c: Suspicious Finding - Biopsy Should Be Considered. ??High suspicion of malignancy (more than 50% but no more than 95%) RECOMMENDATION: Tissue diagnosis Thank you for letting us participate in the care of this patient. ??If you are a health care provider and have any questions regarding this report, please contact the number below. ??For patients who have questions please contact the health medical care administrator that requested your imaging first. ? Electronically signed by: Mario Lee MD, [facility] ([phone]), at 01/14/2024 2:17 PM Narrative 01/14/2024 2:17 PM EDT EXAMINATION: US Breast Limited Left. CLINICAL HISTORY: Left breast- 7 o'clock 3 cmm fn 13 mm FA with arc dist TECHNIQUE AND VIEWS OBTAINED: Full field ML, compression CC and MLO views were obtained of the LEFT breast. 2D and 3D tomosynthesis images were obtained. ?? Computer Assisted Detection was used. Diagnostic ultrasound followed. COMPARISON: Prior images BREAST DENSITY: FINDINGS: Diagnostic mammogram: 15 mm spiculated mass in the left breast at 7 o'clock 4 cm from the nipple. Diagnostic ultrasound: Spiculated hypoechoic mass, 12 mm in greatest dimension containing central calcifications at 7 o'clock 4 cm from the nipple. Procedure Note Mario Lee MD - 01/14/2024 EXAMINATION: US Breast Limited Left. CLINICAL HISTORY: Left breast- 7 o'clock 3 cmm fn 13 mm FA with arc dist TECHNIQUE AND VIEWS OBTAINED: Full field ML, compression CC and MLO views were obtained of the LEFTbreast. 2D and 3D tomosynthesis images were obtained. Computer AssistedDetection was used. Diagnostic ultrasound followed. COMPARISON: Prior images BREAST DENSITY: FINDINGS: Diagnostic mammogram: 15 mm spiculated mass in the left breast at 7o'clock 4 cm from the nipple. Diagnostic ultrasound: Spiculated hypoechoic mass, 12 mm in greatestdimension containing central calcifications at 7 o'clock 4 cm from the nipple. IMPRESSION Suspicious breast mass FINAL ASSESSMENT: BI-RADS Category 4c: Suspicious Finding - Biopsy Should Be Considered.High suspicion of malignancy (more than 50% but no more than 95%) RECOMMENDATION: Tissue diagnosis Thank you for letting us participate in the care of this patient. If youare a health care provider and have any questions regarding this report,please contact the number below. For patients who have questions please contactthe health medical care administrator that requested your imaging first. Electronically signed by: Mario Lee MD, [facility]([phone]), at 01/14/2024 2:17 PM Mario Lee MD IMG MAMMO ORDERAB LES documented in this encounter Visit Diagnoses Not on filedocumented in this encounter Care Teams Senior Enterprise Architect Relationship Specialty Start Date End Date Haylie Steward MD [facility] [place] [address] PCP - General General Internal Medicine 08/04/22 documented as of this encounter
--- OUTSIDE RECORDS SUMMARY | 2024-04-22 00:21 | XMS_ITS | Encounter Summary ---
Author Organization [facility] [place] [address] Care Team Providers Care Hay Baler Name Role Phone Haylie Steward MD Primary Care Provider + [phone] Encounter Details Date Type Department Care Team (Latest Contact Info) Description 01/26/2024 Travel Social History Tobacco Use Types Packs/Day [...] EST Scheduled View Only Radiation Oncology at [address] [address] 04/25/2024 8:30 AM EST Scheduled View Only Radiation Oncology at [address] [address] 04/26/2024 3:00 PM EST Scheduled View Only Radiation Oncology at [address] [address] 04/26/2024 3:30 PM EST Office Visit Radiation Oncology at [address] [address] Ofe Fonseca MD [facility] DR [place] [address] 04/28/2024 2:45 PM EST Scheduled View Only Radiation Oncology at [address] [address] 04/29/2024 3:00 PM EST Scheduled View Only Radiation Oncology at [address] [address] 05/02/2024 3:45 PM EST Scheduled View Only Radiation Oncology at [address] [address] 05/03/2024 1:45 PM EST Scheduled View Only Radiation Oncology at [address] [address] 05/03/2024 2:15 PM EST Office Visit Radiation Oncology at [address] [address] Ofe Fonseca MD [facility] [place] [address] 05/05/2024 8:15 AM EST Scheduled View Only Radiation Oncology at [address] [address] 05/06/2024 12:30 PM EST Scheduled View Only Radiation Oncology at [address] [address] 05/09/2024 3:00 PM EST Scheduled View Only Radiation Oncology at [address] [address] 05/10/2024 2:30 PM EST Scheduled View Only Radiation Oncology at [address] [address] 05/10/2024 3:15 PM EST Office Visit Radiation Oncology at [address] [address] Ofe Fonseca MD [facility] [place] [address] 05/11/2024 2:45 PM EST Scheduled View Only Radiation Oncology at [address] [address] 06/03/2024 3:30 PM EST Appointment [place] [phone] Mira Hutchison APRN [facility] [place] [address] 06/23/2024 4:00 PM EST Appointment Mammography/[place] [phone] Miryam Feliciano MD [facility] [place] [address] 07/12/2024 8:00 AM EDT Laboratory Appointment Lab [place] [phone] 07/12/2024 9:30 AM EDT Office Visit Nephrology [place] [address] Sharmin Jean-Baptiste, [facility] [place] [address] 07/13/2024 10:30 AM EDT Laboratory Appointment Lab [place] [facility] [place] On[place] [address] [place] [address] 07/13/2024 11:30 AM EDT Office Visit Hematology and Oncology at [place] [phone] Salena Alvares, [facility] [place] [place] [address] 07/13/2024 12:45 PM EDT Appointment Hematology and Oncology at [place] [address] documented as of this encounter Visit Diagnoses Not on filedocumented in this encounter Care Teams Hay Baler Relationship Specialty Start Date [place] [address] PCP - General General Internal Medicine 08/04/22 documented as of this encounter
--- OUTSIDE RECORDS SUMMARY | 2024-04-22 00:21 | XMS_ITS | Encounter Summary ---
Author Organization [facility] Address [facility] [place] [address] Care Team Providers Care Distribution Supervisor Name Role Phone Haylie Steward MD Primary Care Provider + [phone] Encounter Details Date Type Department Care Team (Latest Contact Info) Description 02/01/2024 8:50 AM EDT - 02/01/2024 11:59 PM EDT Hospital En[place] [address] Aleida Sosa MD [facility] [place] [address] Abnormal finding on breast imaging Discharge Disposition: [...] for daily living? No 01/20/2024 [facility] Inpatient Questions Answer Date Recorded Does Anyone Try to Keep You From Having Contact with Others or Doing Things Outside Your Home? no 09/06/2022 Feels Threatened by Someone no 0 10/2022 Feels Unsafe at Home or Work/School [...] Scheduled View Only Radiation Oncology at [address] [address] 04/25/2024 8:30 AM EST Scheduled View Only Radiation Oncology at [address] [address] 04/26/2024 3:00 PM EST Scheduled View Only Radiation Oncology at [address] [address] 04/26/2024 3:30 PM EST Office Visit Radiation Oncology at [address] [address] Ofe Fonseca MD [facility] [place] [address] 04/28/2024 2:45 PM EST Scheduled View Only Radiation Oncology at [address] [address] 04/29/2024 3:00 PM EST Scheduled View Only Radiation Oncology at [address] [address] 05/02/2024 3:45 PM EST Scheduled View Only Radiation Oncology at [address] [address] 05/03/2024 1:45 PM EST Scheduled View Only Radiation Oncology at [address] [address] 05/03/2024 2:15 PM EST Office Visit Radiation Oncology at [address] [address] Ofe Fonseca MD [facility] [place] [address] 05/05/2024 8:15 AM EST Scheduled View Only Radiation Oncology at [address] [address] 05/06/2024 12:30 PM EST Scheduled View Only Radiation Oncology at [address] [address] 05/09/2024 3:00 PM EST Scheduled View Only Radiation Oncology at [address] [address] 05/10/2024 2:30 PM EST Scheduled View Only Radiation Oncology at [address] [address] 05/10/2024 3:15 PM EST Office Visit Radiation Oncology at [address] [address] Ofe Fonseca MD [facility] [place] [address] 05/11/2024 2:45 PM EST Scheduled View Only Radiation Oncology at [address] [address] 06/03/2024 3:30 PM EST Appointment Ultrasound at [place] [phone] Mira Hutchison, [facility] [place] [address] 06/23/2024 4:00 PM EST Appointment Mammography/DXA at [place] [phone] Miryam Feliciano MD [facility] [address] 07/12/2024 8:00 AM EDT Laboratory Appointment Lab [address] [place] [phone] 07/12/2024 9:30 AM EDT Office Visit Nephrology [place] [address] Sharmin Jean-Baptiste [facility] [place] [address] 07/13/2024 10:30 AM EDT Laboratory Appointment Lab at [facility] Hematology Oncology [address] [place] [phone] 07/13/2024 11:30 AM EDT Office Visit Hematology [place] [phone] Salena Alvares APRN [facility] [place] [address] 07/13/2024 12:45 PM EDT Appointment Hematology [place] [address] documented as of this encounter Procedures Procedure Name Priority Date/Time Associated Diagnosis Comments MAMMO DIAGNOSTIC WITHOUT CAD LEFT Routine 02/01/2024 10:36 AM EDT Abnormal finding on breast imaging documented in this encounter Results * Mammo Diagnostic Without Cad Left (02/01/2024 10:36 AM EDT) [employer] WORKSTATION ID [id number] RAD Anatomical Region Laterality Modality Breast [...] who have questions please contact the health family member caretaker that requested your imaging first. ? [facility] [address] [place], [place] ??[address] Aleida Urban MD IMG MAMM O ORDERABLES documented in this encounter Visit Diagnoses Diagnosis Abnormal finding on breast imaging Other (abnormal) findings on radiological examination of breast documented in this encounter Care Teams Distribution Supervisor Relationship Specialty Start Date [place] [address] PCP - General General Internal Medicine 08/04/22 documented as of this encounter
--- OUTSIDE RECORDS SUMMARY | 2024-04-22 00:21 | XMS_ITS | Encounter Summary ---
Author Organization [facility] [place] [address] Care Team Providers Care Manufacturing Engineering Director Name Role Phone Haylie Steward MD Primary Care Provider + [phone] Encounter Details Date Type Department Care Team (Late st Contact Info) Description 01/25/2024 Patient Outreach Hematology and Oncology at [facility] [place] [phone] Bob Flower, RN Social History Tobacco Use Types Packs/Day [...] for daily living? No 01/20/2024 [facility] Inpatient Questions Answer Date Recorded Does Anyone [...] as of this encounter Progress Notes * Bob Flower, RN - 01/25/2024 7:52 AM EDT Images from the original note were not included. Comprehensive Breast Program (CBP) Nurse Navigator Note Nataliya Morfin is a 48 y.o. female with ER/AZ+/Her-2 negative left breast cancer. I met with the patient and her friend, Aruna, after her surgical oncology consultation. Nataliya plans for partial mastectomy and SLN surgery. She states her surgery may be on 02/04. She understands she will have left breast ultrasound today and her plan may change based upon results. Dr. Dawson will call her to review any needed changes. 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 She will plans to take a few days off (up to a week) after partial mastectomy. SPECIFIC TEACHIN. Breast Cancer Treatment Handbook (Nellie Royal, 2021) was sent via mail. 2. She understands she will meet with a medical oncologist and a radiation oncologist after surgeryand that [facility] will arrange these appts. as well as a follow up with Dr. Dawson post operatively. 3. Contact phone number for questions or concerns in the immediate post- operative period. 4. Comprehensive Breast Program Binder provided. 5. Post Breast Surgery Exercises handout created by physical therapists at [facility] to begin after partial mastectomy and continue until she is back to her baseline. 6. Breast Cancer Treatment Process care map provided and reviewed. 7. Contact information for the general surgery clinic nurses was given and the doctor java integration developer system explained. Twenty minutes was spent in education and providing support. She verbalized understanding of the plan of care and states all her questions were answered. Nataliya has our contact information. She will schedule surgery after results of ultrasound (and possibly biopsy) are known. Pre-op MRI: Yes Abnormalities detected Ipsilateral (other than index lesion) Referral to familial counseling: No 01/25/2024 Cancer Distress Distress 7 Distress - money None of the above Distress - emotional Worry or anxiety Sadness or depression Fear Distress - symptoms Sleep Fatigue What kind of help I would like information about help Multiple values from one day are sorted in reverse-chronological order 01/25/2024 Social Determinants of Health (SDoH v3) What kind of help? I would like information about help Referrals made today Social work Nataliya has our social work associate's number and will call her as needed. Currently she reports no financial difficulties and states her insurance is good. BOB FLOWER RN documented in this encounter Plan of Treatment Upcoming Encounters Date Type Department Care Team (Latest Contact Info) Description 04/22/2024 9:45 AM EST Scheduled View Only Radiation Oncology at [address] [address] 04/25/2024 8:30 AM EST Scheduled View Only Radiation Oncology at [address] [address] 04/26/2024 3:00 PM EST Scheduled View Only Radiation Oncology at [address] [address] 04/26/2024 3:30 PM EST Office Visit Radiation Oncology at [address] [phone] Ofe Fonseca MD [facility] [place] [address] 04/28/2024 2:45 PM EST Scheduled View Only Radiation Oncology at [address] [address] 04/29/2024 3:00 PM EST Scheduled View Only Radiation Oncology at [address] [address] 05/02/2024 3:45 PM EST Scheduled View Only Radiation Oncology at [address] [address] 05/03/2024 1:45 PM EST Scheduled View Only Radiation Oncology at [address] [address] 05/03/2024 2:15 PM EST Office Visit Radiation Oncology at [address] [address] Ofe Fonseca MD [facility] [place] [address] 05/05/2024 8:15 AM EST Scheduled View Only Radiation Oncology at [address] [address] 05/06/2024 12:30 PM EST Scheduled View Only Radiation Oncology at [address] [address] 05/09/2024 3:00 PM EST Scheduled View Only Radiation Oncology at [address] [address] 05/10/2024 2:30 PM EST Scheduled View Only Radiation Oncology at [address] [address] 05/10/2024 3:15 PM EST Office Visit Radiation Oncology at [address] [address] Ofe Fonseca MD [facility] [place] [address] 05/11/2024 2:45 PM EST Scheduled View Only Radiation Oncology at [address] [address] 06/03/2024 3:30 PM EST Appointment [place] [phone] Mira Hutchison APRN [facility] [address] 06/23/2024 4:00 PM EST Appointment Mammography/[place] [phone] Miryam Feliciano MD [facility] [place] [place] [address] 07/12/2024 8:00 AM EDT Laboratory Appointment Lab [address] [place] [address] 07/12/2024 9:30 AM EDT Office Visit Nephrology Hypertension [place] [address] Sharmin Jean-Baptiste, [facility] [place] [address] 07/13/2024 10:30 AM EDT Laboratory Appointment Lab at [facility] Hematology Oncology [address] [place], [place] [phone] 07/13/2024 11:30 AM EDT Office Visit Hematology [place] [address] Salena Alvares [facility] [place] [address] 07/13/2024 12:45 PM EDT Appointment Hematology and Oncology at [place] [phone] documented as of this encounter Visit Diagnoses Not on filedocumented in this encounter Care Teams Manufacturing Engineering Director Relationship Specialty Start Date End Date Haylie Steward MD [facility] [place] [address] PCP - General General Internal Medicine 08/04/22 documented as of this encounter
--- OUTSIDE RECORDS SUMMARY | 2024-04-22 00:21 | XMS_ITS | Encounter Summary ---
Author Organization Formerly [facility] [place] [address] Care Team Providers Care Chief Growth Officer Name Role Phone Haylie Steward MD Primary Care Provider + [phone] Encounter Details Date Type Department Care Team (Latest Contact Info) Description 02/01/2024 8:49 AM EDT Hospital Encounter [place] [phone] Aleida Sosa MD [facility] [place] [address] Abnormal finding on breast imaging Discharge Disposition: [...] things needed for daily living? No 01/20/2024 [facility] Inpatient Questions Answer Date Recorded Does Anyone [...] as of this encounter Progress Notes * Fernandez Welch MD - 01/29/2024 12:05 PM EDT Procedure date: scheduled for 01/31 Procedure type: left Breast biopsy and Magseed placement, multiple Special Instructions: none Allergies: Nsaids (non-steroidal anti-inflammatory drug), Tolmetin, and Ibuprofen Medications: Current Outpatient Medications: buPROPion XL (Wellbutrin XL) 150 mg XL 24 hr tablet, Take 1 tablet by mouth every morning., Disp: 90 tablet, Rfl: 0 levothyroxine (Synthroid) 75 mcg tablet, Take 1 tablet by mouth every morning., Disp: 90 tablet, Rfl: 0 divalproex ER (Depakote ER) 250 mg ER 24 hr tablet, 2 tabs AM and 3 tabs PM., Disp: 150 tablet, Rfl: 2 pilocarpine (Salagen) 5 mg tablet, Take 1 tablet by mouth 3 times daily., Disp: 90 tablet, Rfl: 2 calciTRIoL (Rocaltrol) 0.25 mcg capsule, Take 1 capsule by mouth daily., Disp: 90 tablet, Rfl: 3 clonazePAM (KlonoPIN) 0.5 mg disintegrating tablet, Take 0.5 mg by mouth daily as needed., Disp: , Rfl: acetaminophen (Tylenol) 500 mg tablet, Take 1,000 mg by mouth every 6 hours as needed for Pain., Disp: , Rfl: Anticoagulation status: none Imaging reviewed and procedural plan approved by Dr. Fernandez Welch MD documented in this encounter Plan of Treatment Upcoming Encounters Date Type Department Care Team (Latest Contact Info) Description 04/22/2024 9:45 AM EST Scheduled View Only Radiation Oncology at [address] [phone] 04/25/2024 8:30 AM EST Scheduled View Only Radiation Oncology at [address] [phone] 04/26/2024 3:00 PM EST Scheduled View Only Radiation Oncology at [address] [address] 04/26/2024 3:30 PM EST Office Visit Radiation Oncology at [address] [phone] Ofe Fonseca MD [facility] [place] [address] 04/28/2024 2:45 PM EST Scheduled View Only Radiation Oncology at [address] [address] 04/29/2024 3:00 PM EST Scheduled View Only Radiation Oncology at [address] [address] 05/02/2024 3:45 PM EST Scheduled View Only Radiation Oncology at [address] [address] 05/03/2024 1:45 PM EST Scheduled View Only Radiation Oncology at [address] [phone] 05/03/2024 2:15 PM EST Office Visit Radiation Oncology at [address] [phone] Ofe Fonseca MD [facility] [place] [address] 05/05/2024 8:15 AM EST Scheduled View Only Radiation Oncology at [address] [phone] 05/06/2024 12:30 PM EST Scheduled View Only Radiation Oncology at [address] [phone] 05/09/2024 3:00 PM EST Scheduled View Only Radiation Oncology at [address] [phone] 05/10/2024 2:30 PM EST Scheduled View Only Radiation Oncology at [address] [address] 05/10/2024 3:15 PM EST Office Visit Radiation Oncology at [address] [phone] Ofe Fonseca MD [facility] [place] [address] 05/11/2024 2:45 PM EST Scheduled View Only Radiation Oncology at [address] [address] 06/03/2024 3:30 PM EST Appointment Ultrasound at [place] [phone] Mira Hutchison [facility] [place] [address] 06/23/2024 4:00 PM EST Appointment Mammography/DXA at [place] [phone] Miryam Feliciano MD [facility] DR [place] [address] 07/12/2024 8:00 AM EDT Laboratory Appointment Lab [address] [place], [place] [phone] 07/12/2024 9:30 AM EDT Office Visit Nephrology Hypertension at [place] [phone] Sharmin Jean-Baptiste, [facility] [place] [address] 07/13/2024 10:30 AM EDT Laboratory Appointment Lab at [place] Hematology Oncology [address] [place] [phone] 07/13/2024 11:30 AM EDT Office Visit Hematology [place] [phone] Salena Alvares [facility] DR [place]ICAL [place] [address] 07/13/2024 12:45 PM EDT Appointment Hematology [place] [phone] documented as of this encounter Procedures Procedure Name Priority Date/Time Associated Diagnosis Comments MAMMO US BIOPSY MULTIPLE LEFT Routine 02/01/2024 10:17 AM EDT Abnormal finding on breast imaging SURGICAL PATHOLOGY Routine 02/01/2024 10 :06 AM EDT Abnormal finding on breast imaging documented in this encounter Results * Mammo US Biopsy Multiple Left (02/01/2024 10:17 AM EDT) WORKSTATION ID [id number] RAD Anatomical Region Laterality Modality Breast Left Mammography Impressions 02/07/2024 1:26 PM EDT Probably concordant result RECOMMENDATION: Surgical consultation for known left breast cancer and conveyed to the operating surgeon via [employer] message. These results were discussed with the [...] have questions please contact the health career manager that requested your imaging first. ? [facility] [address] [place], [place] ??[address] Narrative 02/07/2024 1:26 PM EDT EXAMINATION: MAMMO [...] Urban MD IMG MAMM O ORDERABLES * Surgical Pathology (02/01/2024 10:06 AM EDT) Case Report Surgical Pathology Report ? Case: [id number] ? Authorizing Provider: ??Cj Urban, ?Collected: ? 02/01/2024 1006 ? Aleida Rowley MD ? Ordering Location: ? Mammography at [place] ?Received: ?02/01/2024 1446 ? Pathologist: ? Fely Carter DO ? Specimens: ?? A) - Breast, Left, LEFT BREAST LESION #2 ? B) - Breast, Left, LEFT BREAST LESION #3 ? 02/04/2024 8:38 AM EDT [facility] Final Diagnosis A. Breast, Left, lesion #2, core needle biopsy: - Benign breast tissue with adenosis, columnar cell change, pseudoangiomatous stromal hyperplasia (PASH), and stromal fibrosis. B. Breast, Left, lesion #3, core needle biopsy: - Benign breast tissue with columnar cell change, pseudoangiomatous stromal hyperplasia (PASH), stromal fibrosis, and cysts. 02/04/2024 8:38 AM EDT [facility] Discussion Deeper levels were examined. 02/04/2024 8:38 AM EDT [facility] Clinical Information A. Breast, Left, LEFT BREAST LESION #2 Mass Rule out malignancy B. Breast, Left, LEFT BREAST LESION #3 Mass Rule out malignancy 02/04/2024 8:38 AM EDT [facility] Gross Description A. Breast, Left, LEFT BREAST LESION #2. A - Labeled/Fixative: Left breast lesion #2, formalin. Quantity/Size: Multiple, ranging from 0.2 to 1.8 cm Tissue Description: Hernandez-yellow fibrofatty needle core biopsies. Sections/Processing : Entirely submitted in 2 cassettes labeled A1-A2. Ischemic time: 1 minute B. Breast, Left, LEFT BREAST LESION #3. B - Labeled/Fixative: Left breast lesion #3, formalin. Quantity/Size: Multiple, ranging from 0.1 to 1.6 cm Tissue Description: Hernandez-yellow fibrofatty needle core biopsies. Sections/Processing : Entirely submitted in 2 cassettes labeled B1-B2. Ischemic time: 3 minutes CCP 02/04/2024 8:38 AM EDT [facility] Result Note Routine 02/04/2024 8:38 AM EDT [facility] Tissue LEFT BREAST STRUCTURE / Unknown 02/01/2024 10:06 AM EDT 02/01/2024 2:46 PM EDT Tissue specimen (specimen) LEFT BREAST STRUCTURE / Unknown 02/01/2024 10:10 AM EDT 02/01/2024 2:50 PM EDT Aleida Urban MD PATHOLOG Y/CYTOLOGY ORDERABLES Performing Organization Address City/State/[facility] Co de Phone Number [facility] [place] [phone] documented in this encounter Visit Diagnoses Diagnosis Abnormal finding on breast imaging Other (abnormal) findings on radiological examination of breast documented in this encounter Administered Medications Inactive Administered Medications - up to 3 most recent administrations Medication Order MAR Action Action Date Dose Rate Site lidocaine (Xylocaine) 1% (10 mg/mL) injection 0-200 mg 0-200 mg (0-20 mL), Subcutaneous, ONCE, 1 dose, On 02/01/24 at 0945, Radiology Protocol Medication, Routine Given 02/01/2024 9:40 AM EDT 10 mg documented in this encounter Care Teams Chief Growth Officer Relationship Specialty Start Date End Date aHylie Steward MD [facility] [place] [address] PCP - General General Internal Medicine 08/04/22 documented as of this encounter
--- OUTSIDE RECORDS SUMMARY | 2024-04-22 00:22 | XMS_ITS | Encounter Summary ---
Author Organization Formerly [facility] [place] [address] Care Team Providers Care Weight Loss Sales Consultant Name Role Phone Haylie Steward MD Primary Care Provider + [phone] Encounter Details Date Type Department Care Team (Late st Contact Info) Description 01/14/2024 Interpretation Only [address] [phone] Mario Lee MD [facility] [place] [address] Social History Tobacco Use Types Packs/Day Years [...] Scheduled View Only Radiation Oncology at [address] [phone] 04/25/2024 8:30 AM EST Scheduled View Only Radiation Oncology at [address] [address] 04/26/2024 3:00 PM EST Scheduled View Only Radiation Oncology at [address] [phone] 04/26/2024 3:30 PM EST Office Visit Radiation Oncology at [address] [phone] Ofe Fonseca MD [facility] [place] [address] 04/28/2024 2:45 PM EST Scheduled View Only Radiation Oncology at [address] [phone] 04/29/2024 3:00 PM EST Scheduled View Only Radiation Oncology at [address] [phone] 05/02/2024 3:45 PM EST Scheduled View Only Radiation Oncology at [address] [phone] 05/03/2024 1:45 PM EST Scheduled View Only Radiation Oncology at [address] [phone] 05/03/2024 2:15 PM EST Office Visit Radiation Oncology at [address] [phone] Ofe Fonseca MD [facility] [place] [address] 05/05/2024 8:15 AM EST Scheduled View Only Radiation Oncology at [address] [phone] 05/06/2024 12:30 PM EST Scheduled View Only Radiation Oncology at [address] [phone] 05/09/2024 3:00 PM EST Scheduled View Only Radiation Oncology at [address] [address] 05/10/2024 2:30 PM EST Scheduled View Only Radiation Oncology at [address] [address] 05/10/2024 3:15 PM EST Office Visit Radiation Oncology at [address] [phone] Ofe Fonseca MD [facility] [place] [address] 05/11/2024 2:45 PM EST Scheduled View Only Radiation Oncology at [address] [phone] 06/03/2024 3:30 PM EST [place] [phone] Mira Hutchison EXPORT FREIGHT MANAGER [facility] [address] 06/23/2024 4:00 PM EST Appointment Mammography/DXA at [place] [phone] Miryam Feliciano MD [facility] [place] [address] 07/12/2024 8:00 AM EDT Laboratory Appointment Lab [address] [phone] 07/12/2024 9:30 AM EDT Office Visit Nephrology Hypertension at [place] [phone] Sharmin Jean-Baptiste EXPORT FREIGHT MANAGER [facility] [place] [address] 07/13/2024 10:30 AM EDT Laboratory Appointment Lab at [facility] Hematology Oncology [address] [place] [phone] 07/13/2024 11:30 AM EDT Office Visit Hematology [place] [phone] Salena Alvares APRN [facility] DR MEDICAL ONCOLOGY [place] [phone] 07/13/2024 12:45 PM EDT Appointment Hematology [place] [phone] documented as of this encounter Procedures Procedure Name Priority Date/Time Associated Diagnosis Comments MAMMO DIAGNOSTIC CAD AND JOAN LEFT (CH) Routine 01/14/2024 1:46 PM EDT documented in this encounter Results * MAMMO DIAGNOSTIC CAD AND JOAN LEFT (CH) (01/14/2024 1:46 PM EDT) PT CLASS O RAD ADMITDTTM [id number] RAD PT RAD MD INFO [id number]^Viazme nski^Mario RAD EXAM DESC MADDUILTOCH^MG Mammo Diagnostic Left w/ Joan.^RIS RAD WORKSTATION ID [id number] RAD Anatomical Region Laterality Modality Other 01/14/2024 1:46 PM EDT Impressions 01/14/2024 2:14 PM EDT Suspicious breast mass FINAL ASSESSMENT: [...] who have questions please contact the health healthcare architect that requested your imaging first. ? [address] [place], [place] ??[address] Narrative 01/14/2024 2:14 PM EDT EXAMINATION: MG Mammo Diagnostic Left w/ Joan. CLINICAL HISTORY: Left breast- 7 o'clock 3 cmm fn 13 mm FA with arc dist TECHNIQUE AND VIEWS OBTAINED: Full field ML, compression CC and MLO views were obtained of the LEFT breast. 2D and 3D tomosynthesis images were obtained. ?? Computer Assisted Detection was used. Diagnostic ultrasound followed. COMPARISON: Prior images BREAST DENSITY: The breasts are heterogeneously dense, which may obscure small masses. FINDINGS: Diagnostic mammogram: 15 mm spiculated mass in the left breast at 7 o'clock 4 cm from the nipple. Diagnostic ultrasound: Spiculated hypoechoic mass, 12 mm in greatest dimension containing central calcifications at 7 o'clock 4 cm from the nipple. Procedure Note Mario Lee MD - 01/14/2024 EXAMINATION: MG Mammo Diagnostic Left w/ Joan. CLINICAL HISTORY: Left breast- 7 o'clock 3 cmm fn 13 mm FA with arc dist TECHNIQUE AND VIEWS OBTAINED: Full field ML, compression CC and MLO views were obtained of the LEFTbreast. 2D and 3D tomosynthesis images were obtained. Computer AssistedDetection was used. Diagnostic ultrasound followed. COMPARISON: Prior images BREAST DENSITY: The breasts are heterogeneously dense, which may obscure small masses. FINDINGS: Diagnostic mammogram: 15 mm spiculated mass [...] patients who have questions please contactthe health healthcare architect that [place] [address] Mario Lee MD PACS IMAGES documented in this encounter Visit Diagnoses Not on filedocumented in this encounter Care Teams Weight Loss Sales Consultant Relationship Specialty Start Date End Date Haylie Steward MD [place] [address] PCP - General General Internal Medicine 08/04/22 documented as of this encounter
--- OUTSIDE RECORDS SUMMARY | 2024-04-22 00:22 | XMS_ITS | Encounter Summary ---
[place] [address] Care Team Providers Care Humidifier Maintenance Worker Name Role Phone Haylie Steward MD Primary Care Provider [phone] Encounter Details Date Type Department Care Team (Latest Contact Info) Description 07/09/2023 7:55 AM EST Laboratory Appointment Lab [address] [place] [phone] Hypercalcemia; Hypothyroidism, acquired; Stage 3b chronic kidney disease; Bipolar 1 disorder Social History Tobacco Use Types Packs/Day Years Used Date Smoking Tobacco: Never Smokeless Tobacco: Never Alcohol Use Standard Drinks/Week Comments Not Currently 0 (1 standard drink = 0.6 oz pur e alcohol) IPV Inpatient Questions Answer Date Recorded Does [...] Scheduled View Only Radiation Oncology at [address] [phone] 04/25/2024 8:30 AM EST Scheduled View Only Radiation Oncology at [address] [address] 04/26/2024 3:00 PM EST Scheduled View Only Radiation Oncology at [address] [phone] 04/26/2024 3:30 PM EST Office Visit Radiation Oncology at [address] [phone] Ofe Fonseca MD [facility] [place] [address] 04/28/2024 2:45 PM EST Scheduled View Only Radiation Oncology at [address] [phone] 04/29/2024 3:00 PM EST Scheduled View Only Radiation Oncology at [address] [phone] 05/02/2024 3:45 PM EST Scheduled View Only Radiation Oncology at [address] [phone] 05/03/2024 1:45 PM EST Scheduled View Only Radiation Oncology at [address] [phone] 05/03/2024 2:15 PM EST Office Visit Radiation Oncology at [address] [phone] Ofe Fonseca MD [facility] [place] [address] 05/05/2024 8:15 AM EST Scheduled View Only Radiation Oncology at [address] [phone] 05/06/2024 12:30 PM EST Scheduled View Only Radiation Oncology at [address] [address] 05/09/2024 3:00 PM EST Scheduled View Only Radiation Oncology at [address] [address] 05/10/2024 2:30 PM EST Scheduled View Only Radiation Oncology at [address] [address] 05/10/2024 3:15 PM EST Office Visit Radiation Oncology at [address] [phone] Ofe Fonseca MD [facility] [place] [address] 05/11/2024 2:45 PM EST Scheduled View Only Radiation Oncology at [address] [address] 06/03/2024 3:30 PM EST Appointment Ultrasound at [address] Mira Hutchison [facility] [place] [address] 06/23/2024 4:00 PM EST Appointment Mammography/DXA at [place] [phone] Miryam Feliciano MD [facility] [place] [address] 07/12/2024 8:00 AM EDT Laboratory Appointment Lab [address] [phone] 07/12/2024 9:30 AM EDT Office Visit Nephrology Hypertension at [place] [phone] Sharmin Jean-Baptiste [facility] [place] [address] 07/13/2024 10:30 AM EDT Laboratory Appointment Lab at [facility] Hematology Oncology [address] [place] [address] 07/13/2024 11:30 AM EDT Office Visit Hematology [place] [phone] Salena Alvares, SUPERVISOR CORRESPONDENCE SECTION [facility] [place] [address] 07/13/2024 12:45 PM EDT Appointment Hematology [place] [phone] documented as of this encounter Procedures Procedure Name Priority Date/Time Associated Diagnosis Comments TSH CASCADE Routine 07/09/2023 8:12 AM EST Hypothyroidism, acquired CALCIUM IONIZED SERUM Routine 07/09/2023 8:12 AM EST Hypercalcemia CYSTATIN C Routine 07/09/2023 8:12 AM EST Stage 3b chronic kidney disease ALANINE AMINOTRANSFERASE Routine 8:12 AM EST Bipolar 1 disorder ASPARTATE AMINOTRANSFERASE Routine 07/09/2023 8:12 AM EST Bipolar 1 disorder ALKALINE PHOSPHATASE Routine 07/09/2023 8:12 AM EST Bipolar 1 disorder documented in this encounter Results * Alanine Aminotransferase (07/09/2023 8:12 AM EST) Alanine Aminotransferase 22 0 - 30 unit/L [facility] Blood 07/09/2023 8:12 AM EST 07/09/2023 8:16 AM EST Narrative Resulting Agency Comment Spec In Lab Michelet Monge MD CHEMISTRY ORDERABLES [facility] [place] [address] * Aspartate Aminotransferase (07/09/2023 8:12 AM EST) Aspartate Aminotransferase 22 0 - 30 unit/L [facility] Blood 07/09/2023 8:12 AM EST 07/09/2023 8:16 AM EST Narrative Resulting Agency Comment Spec In Lab Michelet Monge MD CHEMISTRY ORDERABLES Performing Organization Address City/[facility] Co de Phone Number [facility] [place] [address] * Alkaline Phosphatase (07/09/2023 8:12 AM EST) Alkaline Phosphatase 78 35 - 105 unit/L [facility] Blood 07/09/2023 8:12 AM EST 07/09/2023 8:16 AM EST Narrative Resulting Agency Comment Spec In Lab Michelet Monge MD CHEMISTRY ORDERABLES Performing Organization Address [facility] de Phone Number [facility] [place] [address] * (ABNORMAL) Cystatin C (07/09/2023 8:12 AM EST) Cystatin C (SEPTEMBER) 1.23(H) 0.63 - 1.03 mg/L [facility] Comment: Test Performed by: [address] [address] [address] Reporter: Owen Zurita M.D. Ph.D.; CLIA# [id number] Cystatin C Egfr (SEPTEMBER) 58(L) >60 mL/min/BS A [facility] Comment: Estimated GFR calculated using the CKD-EPI Cystatin C (2012) equation. ADDITIONAL INFORMATION Cystatin C-based eGFR may differ substantially from creatinine- based eGFR in patients with abnormal muscle mass or acutely changing renal function. ??Please interpret together with relevant clinical features. On 09/27/2020 the cystatin C assay method changed. Cystatin C eGFR results > 50 ml/min/1.73m2 are approximately 10% lower with the new assay. Test Performed by: [address] [address] [address] Reporter: Owen Zurita M.D. Ph.D.; CLIA# [id number] Blood 07/09/2023 8:12 AM EST 07/09/2023 12:53 PM EST Narrative Resulting Agency Comment Spec In Lab Angela Heredia MD LAB SEND OUT ORDERAB LES Performing Organization Address [facility] de Phone Number [facility] [place] [address] * TSH [place] (07/09/2023 8:12 AM EST) Thyroid Stimulating Hormone 1.91 0.27 - 4.20 mcIU/mL [facility] Comment: Reference Interval (mcIU/mL): Females: ??First Trimester: 0.23-3.88 ??Second Trimester: 0.22-3.90 ??Third Trimester: 0.44-4.66 Blood 07/09/2023 8:12 AM EST 07/09/2023 8:16 AM EST Narrative Resulting Agency Comment Spec In Lab Angela Heredia MD CHEMISTRY ORDERABLES Performing Organization Address [facility] Phone Number [facility] [place] [address] * Calcium, Ionized, Serum (07/09/2023 8:12 AM EST) Ionized Calcium 1.32 1.15 - 1.33 mmol/L [facility] Comment: Note: Total bilirubin higher than 20 mg/dL may lead to falsely low ionized calcium. This test has not been cleared by the [place] FDA. Performance characteristics of this test were determined by [facility] in accordance with CLIA requirements. This laboratory is qualified under CLIA to perform high-complexity testing. Blood 07/09/2023 8:12 AM EST 07/09/2023 8:16 AM EST Narrative Resulting Agency Comment Spec In Lab Angela Heredia MD CHEMISTRY ORDERABLES Performing Organization Address [facility]/State/[place] [address] documented in this encounter Visit Diagnoses Diagnosis Hypercalcemia Hypothyroidism, acquired Unspecified hypothyroidism Stage 3b chronic kidney disease Bipolar 1 disorder Bipolar I disorder, most recent episode (or current) unspecified documented in this encounter Care Teams Humidifier Maintenance Worker Relationship Specialty Start Date [place] [address] PCP - General General Internal Medicine 08/04/22 documented as of this encounter
--- OUTSIDE RECORDS SUMMARY | 2024-04-22 00:22 | XMS_ITS | Encounter Summary ---
[place] [address] Care Team Providers Care Comp Field Case Manager Name Role Phone Haylie Steward MD Primary Care Provider [phone] Encounter Details Date Type Department Care Team (Latest Contact Info) Description 10/26/2023 8:05 AM EDT Laboratory Appointment Lab [address] [place] [phone] CKD (chronic kidney disease) stage 2, GFR 60-89 ml/min; Hyperparathyroidism ; Bipolar 1 disorder Social History Tobacco Use [...] Scheduled View Only Radiation Oncology at [address] [phone] 04/25/2024 8:30 AM EST Scheduled View Only Radiation Oncology at [address] [address] 04/26/2024 3:00 PM EST Scheduled View Only Radiation Oncology at [address] [phone] 04/26/2024 3:30 PM EST Office Visit Radiation Oncology at [address] [phone] Ofe Fonseca MD [facility] [place] [address] 04/28/2024 2:45 PM EST Scheduled View Only Radiation Oncology at [address] [phone] 04/29/2024 3:00 PM EST Scheduled View Only Radiation Oncology at [address] [phone] 05/02/2024 3:45 PM EST Scheduled View Only Radiation Oncology at [address] [address] 05/03/2024 1:45 PM EST Scheduled View Only Radiation Oncology at [address] [phone] 05/03/2024 2:15 PM EST Office Visit Radiation Oncology at [address] [phone] Ofe Fonseca MD [facility] [place] [address] 05/05/2024 8:15 AM EST Scheduled View Only Radiation Oncology at [address] [phone] 05/06/2024 12:30 PM EST Scheduled View Only Radiation Oncology at [address] [phone] 05/09/2024 3:00 PM EST Scheduled View Only Radiation Oncology at [address] [address] 05/10/2024 2:30 PM EST Scheduled View Only Radiation Oncology at [address] [phone] 05/10/2024 3:15 PM EST Office Visit Radiation Oncology at [address] [phone] Ofe Fonseca MD [facility] [place] [address] 05/11/2024 2:45 PM EST Scheduled View Only Radiation Oncology at [address] [address] 06/03/2024 3:30 PM EST Appointment Ultrasound at [place] [phone] [facility] [place] [address] 06/23/2024 4:00 PM EST Appointment Mammography/DXA at [place] [phone] Miryam Feliciano MD [facility] [place] [address] 07/12/2024 8:00 AM EDT Laboratory Appointment Lab [address] [phone] 07/12/2024 9:30 AM EDT Office Visit Nephrology [place] [phone] [address] Jean-Baptiste [facility] [place] [address] 07/13/2024 10:30 AM EDT Laboratory Appointment Lab at [facility] Hematology Oncology [address] [place] [phone] 07/13/2024 11:30 AM EDT Office Visit Hematology [place] [phone] Salena Alvares APRN [facility] [place] [address] 07/13/2024 12:45 PM EDT Appointment Hematology [place] [phone] documented as of this encounter Procedures Procedure Name Priority Date/Time Associated Diagnosis Comments HC URINALYSIS ROUTINE Routine 10/26/2023 9:38 AM EDT CKD (chronic kidney disease) stage 2, GFR 60-89 ml/min PROTEIN/CREATININE RATIO, URINE Routine 10/26/2023 9:38 AM EDT CKD (chronic kidney disease) stage 2, GFR 60-89 ml/min PTH Routine 10/26/2023 8:27 AM EDT CKD (chronic kidney disease) stage 2, GFR 60-89 ml/min Hyperparathyroidism HEMOGRAM Routine 10/26/2023 8:27 AM EDT CKD (chronic kidney disease) stage 2, GFR 60-89 ml/min DIFFERENTIAL, AUTOMATED Routine 10/26/2023 8:27 AM EDT CKD (chronic kidney disease) stage 2, GFR 60-89 ml/min IRON AND TIBC Routine 10/26/2023 8:27 AM EDT CKD (chronic kidney disease) stage 2, GFR 60-89 ml/min VITAMIN D, 25-HYDROXY Routine 10/26/2023 8:27 AM EDT CKD (chronic kidney disease) stage 2, GFR 60-89 ml/min Hyperparathyroidism CBC (WITH DIFF) Routine 10/26/2023 8:27 AM EDT CKD (chronic kidney disease) stage 2, GFR 60-89 ml/min TSH Routine 10/26/2023 8:27 AM EDT Bipolar 1 disorder PHOSPHORUS Routine 10/26/2023 8:27 AM EDT CKD (chronic kidney disease) stage 2, GFR 60-89 ml/min Hyperparathyroidism FERRITIN Routine 10/26/2023 8:27 AM EDT CKD (chronic kidney disease) stage 2, GFR 60-89 ml/min ALBUMIN LEVEL Routine 10/26/2023 8:27 AM EDT CKD (chronic kidney disease) stage 2, GFR 60-89 ml/min VALPROIC ACID LEVEL, TOTAL Routine 10/26/2023 8:27 AM EDT Bipolar 1 disorder BASIC METABOLIC PANEL Routine 10/26/2023 8:27 AM EDT CKD (chronic kidney disease) stage 2, GFR 60-89 ml/min documented in this encounter Results * Protein/Creatinine Ratio, urine (10/26/2023 9:38 AM EDT) Creatinine, Urine 13 mg/dL [facility] Protein, Urine <6 0 - 12 mg/dL [facility] Protein / Creatinine Ratio, Urine <0.5 ratio [facility] Urine 10/26/2023 9:38 AM EDT 10/26/2023 9:47 AM EDT Narrative Resulting Agency Comment Spec In Lab Sharmin Jean-Baptiste APRN URINE ORDERABLES [facility] [place] [address] * _Urinalysis with microscopic (10/26/2023 9:38 AM EDT) Glucose, Urine Dipstick Negative Negative mg/dL [facility] Protein, Urine Dipstick Negative Negative mg/dL [facility] Bilirubin, Urine Dipstick Negative Negative mg/dL [facility] Comment: Clinical correlation required for positive Urine Bilirubin results as false positive may occur with some drugs and drug related products. If a false positive is suspected a serum total bilirubin should be considered if clinically indicated. Urobilinogen, Urine Dipstick Normal Normal mg/dL [facility] pH, Urn (dipstick) 6.5 5.0 - 8.0 [facility] Blood, Urine Dipstick Negative Negative mg/dL [facility] Ketone, Urine Dipstick Negative Negative mg/dL [facility] Nitrite, Urine Dipstick Negative Negative [facility] Leukocytes, Urine Dipstick Negative Negative [facility] Appearance, Urine Dipstick Clear Clear [facility] Specific Bath Urine Automated 1.006 1.005 - 1.030 [facility] Color, Urine Dipstick Yellow Yellow [facility] RBC, Urine 0 0 - 4 /HPF [facility] WBC, Urine 0 0 - 5 /HPF [facility] Squamous Epithelial Cells Raw Data, Urine 1 <=4 /HPF [facility] Urine 10/26/2023 9:38 AM EDT 10/26/2023 9:47 AM EDT Narrative Resulting Agency Comment Spec In Lab Sharmin Jean-Baptiste APRN URINE ORDERABLES [facility] [place] [address] * Differential, Automated (10/26/2023 8:27 AM EDT) Neutrophil % 58.3 % [facility] Neutrophil Absolute 2.94 1.70 - 6.10 x10(3)/[facility] Lymph % 29.0 % [facility] Lymphocytes Abs 1.5 0.9 - 3.2 x10(3)/[facility] Monocyte % 8.7 % [facility] Monocyte Abs 0.4 0.3 - 0.9 x10(3)/[facility] Eos % 3.4 % [facility] Eosinophils Abs 0.2 0.0 - 0.4 x10(3)/[facility] Basophil % 0.4 % [facility] Baso Absolute 0.0 0.0 - 0.1 x10(3)/[facility] Immature Gran % 0.20 % [facility] Comment: Immature granulocytes(IG's)percentage and absolute count will include metamyelocytes, myelocytes, and promyelocytes. Blood smears from CBCs yielding IG's will be scanned manually for concordance. If this scan disagrees with the automated IG or if promyelocytes are noted, a manual differential will be performed. Immature Gran Absolute 0.01 0.00 - 0.04 x10(3)/[facility] Blood 10/26/2023 8:27 AM EDT 10/26/2023 8:33 AM EDT Narrative Resulting Agency Comment Spec In Lab Sharmin Jean-Baptiste APRN HEMATOLOGY ORDERA BLES [facility] [place] [address] * (ABNORMAL) Hemogram (10/26/2023 8:27 AM EDT) White Blood Cell 5.0 4.0 - 9.5 x10(3)/[facility] Red Blood Cell 4.77 4.00 - 5.21 x10(6)/[facility] Hemoglobin 14.9 11.7 - 15.5 g/dL [facility] Hematocrit 46.4(H) 35.7 - 45.8 % [facility] Mean Cell Volume 97.3(H) 82.6 - 94.4 fL [facility] Mean Cell Hemoglobin 31.2 27.1 - 32.0 pg [facility] Mean Cell Hemoglobin Concentration 32.1 31.7 - 35.0 g/dL [facility] Platelet 187 145 - 357 x10(3)/mc L [facility] RDW Standard Deviation 47.1(H) 37.0 - 46.0 fL [facility] RDW coefficient of variation 13.2 11.5 - 14.1 % [facility] Mean Platelet Volume 9.5 7.6 - 12.9 fL [facility] NRBC% auto 0.0 % [facility] NRBC Absolute 0.000 0.000 - 0.000 x10(3)/mc L [facility] Blood 10/26/2023 8:27 AM EDT 10/26/2023 8:33 AM EDT Narrative Resulting Agency Comment Spec In Lab Sharmin Jean-Baptiste APRN HEMATOLOGY ORDERA BLES Performing Organization Address City/[facility]/ZIP Co de Phone Number [facility] [place] [address] * Valproic Acid Level, Total (10/26/2023 8:27 AM EDT) Valproic Acid 80 mg/L [facility] Comment: Therapeutic Range: Anticonvulsant Therapy: ??50-100 mg/L Manic Episodes Associated with Bipolar Disorder: ??50-125 mg/L Blood 10/26/2023 8:27 AM EDT 10/26/2023 8:33 AM EDT Narrative Resulting Agency Comment Spec In Lab Michelet Monge MD CHEMISTRY ORDERABLES Performing Organization Address City/[facility]/ZIP Co de Phone Number [facility] [place] [address] * TSH (10/26/2023 8:27 AM EDT) Thyroid Stimulating Hormone 1.89 0.27 - 4.20 mcIU/mL [facility] Comment: Reference Interval (mcIU/mL): Females: ??First Trimester: 0.23-3.88 ??Second Trimester: 0.22-3.90 ??Third Trimester: 0.44-4.66 Blood 10/26/2023 8:27 AM EDT 10/26/2023 8:33 AM EDT Narrative Resulting Agency Comment Spec In Lab Michelet Monge MD CHEMISTRY ORDERABLES Performing Organization Address [facility]/ZIP Co de Phone Number [facility] [place] [address] * Ferritin (10/26/2023 8:27 AM EDT) Ferritin 45 6 - 175 ng/mL [facility] Comment: Please note that as of 04/08/2023, the reference intervals for Ferritin have been updated. Blood 10/26/2023 8:27 AM EDT 10/26/2023 8:33 AM EDT Narrative Resulting Agency Comment Spec In Lab Sharmin L Estiven TRAIN ENGINEER CHEMISTRY ORDERAB LES Performing Organization Address [facility] Co de Phone Number [facility] [place] [address] * Iron and TIBC (10/26/2023 8:27 AM EDT) Iron 89 30 - 150 mcg/dL [facility] TIBC 323 250 - 450 mcg/dL [facility] Iron Saturation 28 20 - 50 % [facility] Blood 10/26/2023 8:27 AM EDT 10/26/2023 8:33 AM EDT Narrative Resulting Agency Comment Spec In Lab Sharmin L Estiven TRAIN ENGINEER CHEMISTRY ORDERAB LES Performing Organization Address [facility]/ZIP Co de Phone Number [facility] [place] [address] * Phosphorus (10/26/2023 8:27 AM EDT) Phosphorus 3.2 2.5 - 4.5 mg/dL [facility] Blood 10/26/2023 8:27 AM EDT 10/26/2023 8:33 AM EDT Narrative Resulting Agency Comment Spec In Lab Sharmin L Estiven TRAIN ENGINEER CHEMISTRY ORDERAB LES Performing Organization Address [facility]/ZIP Co de Phone Number [facility] [place] [address] * Vitamin D, 25-Hydroxy (10/26/2023 8:27 AM EDT) Vitamin D Total 25 OH 33 21 - 100 ng/mL [facility] Vit D Interp Sufficient [facility] Blood 10/26/2023 8:27 AM EDT 10/26/2023 8:33 AM EDT Narrative Resulting Agency Comment Spec In Lab Sharmin L Estiven TRAIN ENGINEER CHEMISTRY ORDERAB LES Performing Organization Address [facility] Co de Phone Number [facility] [place] [address] * (ABNORMAL) PTH (10/26/2023 8:27 AM EDT) Parathyroid Hormone 103(H) 15 - 65 pg/mL [facility] Blood 10/26/2023 8:27 AM EDT 10/26/2023 8:33 AM EDT Narrative Resulting Agency Comment Spec In Lab Sharmin L Estiven TRAIN ENGINEER CHEMISTRY ORDERAB LES Performing Organization Address [facility] Co de Phone Number [facility] [place] [address] * (ABNORMAL) Basic Metabolic Panel (non-fasting) (10/26/2023 8:27 AM EDT) Glucose 72 65 - 199 mg/dL [facility] Comment:Diabetes: >=200 mg/d L plus symptoms Blood Urea Nitrogen 32(H) 8 - 18 mg/dL [facility] Creatinine 1.05 0.70 - 1.20 mg/dL [facility] Sodium 139 135 - 145 mmol/L [facility] Potassium 4.3 3.5 - 5.0 mmol/L [facility] Comment: Please note: ??Patients with WBC >100,000 may have falsely elevated Potassium levels. ??For accurate Potassium quantification in these patients send serum separator tube (gold top) for subsequent determinations. ??Contact the Clinical Chemistry Laboratory if there are any questions. Chloride 108(H) 98 - 107 mmol/L [facility] Carbon Dioxide 22 22 - 31 mmol/L [facility] Anion Gap 9 5 - 15 mmol/L [facility] Calcium 10.3 8.5 - 10.5 mg/dL [facility] Est Glomerular Filtration Rate 65 >=60 mL/min/1. 73 m?? [facility] Comment: This patient's estimated [...] urine creatinine clearance. Assignment of CKD stage 1-5 for patients with an eGFR near the transition point between stages may be based on clinical assessment of muscle mass and symptoms in addition to eGFR. Blood 10/26/2023 8:27 AM EDT 10/26/2023 8:33 AM EDT Narrative Resulting Agency Comment Spec In Lab Sharmin Jean-Baptiste TRAIN ENGINEER CHEMISTRY ORDERAB LES [facility] [place] [address] * Albumin Level (10/26/2023 8:27 AM EDT) Albumin 3.9 3.2 - 5.2 g/dL [facility] Blood 10/26/2023 8:27 AM EDT 10/26/2023 8:33 AM EDT Narrative Resulting Agency Comment Spec In Lab Sharmin Jean-Baptiste TRAIN ENGINEER CHEMISTRY ORDERAB LES [facility] [place] [address] documented in this encounter Visit Diagnoses Diagnosis CKD (chronic kidney disease) stage 2, GFR 60-89 ml/min Chronic kidney disease, Stage II (mild) Hyperparathyroidism Hyperparathyroidism, unspecified Bipolar 1 disorder Bipolar I disorder, most recent episode (or current) unspecified documented in this encounter Care Teams Comp Field Case Manager Relationship Specialty Start Date End [place] [address] PCP - General General Internal Medicine 08/04/22 documented as of this encounter
--- OUTSIDE RECORDS SUMMARY | 2024-04-22 00:22 | XMS_ITS | Encounter Summary ---
Author Organization [facility] [place] [address] Care Team Providers Care Mica Machine Operator Name Role Phone Haylie Steward MD Primary Care Provider [phone] Encounter Details Date Type Department Care Team (Latest Contact Info) Description 10/27/2023 Travel Social History Tobacco Use Types Packs/Day [...] EST Scheduled View Only Radiation Oncology at [address] [phone] 04/25/2024 8:30 AM EST Scheduled View Only Radiation Oncology at [address] [phone] 04/26/2024 3:00 PM EST Scheduled View Only Radiation Oncology at [address] [phone] 04/26/2024 3:30 PM EST Office Visit Radiation Oncology at [address] [phone] Ofe Fonseca MD [facility] [place] [address] 04/28/2024 2:45 PM EST Scheduled View Only Radiation Oncology at [address] [phone] 04/29/2024 3:00 PM EST Scheduled View Only Radiation Oncology at [address] [phone] 05/02/2024 3:45 PM EST Scheduled View Only Radiation Oncology at [address] [phone] 05/03/2024 1:45 PM EST Scheduled View Only Radiation Oncology at [address] [phone] 05/03/2024 2:15 PM EST Office Visit Radiation Oncology at [address] [phone] Ofe Fonseca MD [facility] [place] [address] 05/05/2024 8:15 AM EST Scheduled View Only Radiation Oncology at [address] [phone] 05/06/2024 12:30 PM EST Scheduled View Only Radiation Oncology at [address] [phone] 05/09/2024 3:00 PM EST Scheduled View Only Radiation Oncology at [address] [phone] 05/10/2024 2:30 PM EST Scheduled View Only Radiation Oncology at [address] [phone] 05/10/2024 3:15 PM EST Office Visit Radiation Oncology at [address] [phone] Ofe Fonseca MD [facility] [place] [address] 05/11/2024 2:45 PM EST Scheduled View Only Radiation Oncology at [address] [phone] 06/03/2024 3:30 PM EST [place] [phone] Mira Hutchison, [facility] [place] [address] 06/23/2024 4:00 PM EST Appointment Mammography/[place] [phone] Miryam Feliciano MD [facility] [place] [address] 07/12/2024 8:00 AM EDT Laboratory Appointment Lab [address] [place] [phone] 07/12/2024 9:30 AM EDT Office Visit [place] [phone] Sharmin Jean-Baptiste [facility] [address] 07/13/2024 10:30 AM EDT Laboratory Appointment Lab at [facility] Hematology Oncology [address] [place] [phone] 07/13/2024 11:30 AM EDT Office Visit Hematology [place] [address] Salena Alvares APRN [facility] [place] [address] 07/13/2024 12:45 PM EDT Appointment Hematology [place] [phone] documented as of this encounter Visit Diagnoses Not on filedocumented in this encounter Care Teams Mica Machine Operator Relationship Specialty Start Date End [place] [address] PCP - General General Internal Medicine 08/04/22 documented as of this encounter
--- OUTSIDE RECORDS SUMMARY | 2024-04-22 00:22 | XMS_ITS | Encounter Summary ---
Author Organization [facility] [place] [address] Care Team Providers Care Volleyball Player Name Role Phone Haylie Steward MD Primary Care Provider [phone] Encounter Details Date Type Department Care Team (Late st Contact Info) Description 12/31/2023 Orders Only Hematology [place] [address] [address] [facility] [facility] [place] [address] Hyperparathyroidism Social History Tobacco Use Types Packs/Day Years Used Date Smoking Tobacco: Never Smokeless Tobacco: Never Alcohol Use Standard Drinks/Week Comments Not Currently 0 (1 standard drink = 0.6 oz pur e alcohol) [facility] Inpatient Questions Answer Date Recorded Does [...] Scheduled View Only Radiation Oncology at [address] [phone] 04/25/2024 8:30 AM EST Scheduled View Only Radiation Oncology at [address] [phone] 04/26/2024 3:00 PM EST Scheduled View Only Radiation Oncology at [address] [phone] 04/26/2024 3:30 PM EST Office Visit Radiation Oncology at [address] [phone] Ofe Fonseca MD [facility] [place] [address] 04/28/2024 2:45 PM EST Scheduled View Only Radiation Oncology at [address] [phone] 04/29/2024 3:00 PM EST Scheduled View Only Radiation Oncology at [address] [phone] 05/02/2024 3:45 PM EST Scheduled View Only Radiation Oncology at [address] [phone] 05/03/2024 1:45 PM EST Scheduled View Only Radiation Oncology at [address] [phone] 05/03/2024 2:15 PM EST Office Visit Radiation Oncology at [address] [phone] Ofe Fonseca MD [facility] [place] [address] 05/05/2024 8:15 AM EST Scheduled View Only Radiation Oncology at [address] [phone] 05/06/2024 12:30 PM EST Scheduled View Only Radiation Oncology at [address] [phone] 05/09/2024 3:00 PM EST Scheduled View Only Radiation Oncology at [address] [phone] 05/10/2024 2:30 PM EST Scheduled View Only Radiation Oncology at [address] [phone] 05/10/2024 3:15 PM EST Office Visit Radiation Oncology at [address] [phone] Ofe Fonseca MD [facility] [place] [address] 05/11/2024 2:45 PM EST Scheduled View Only Radiation Oncology at [address] [phone] 06/03/2024 3:30 PM EST [place]oint[place] [phone] Mira Hutchison EXPERIMENTAL MECHANIC [facility] [place] [place] [address] 06/23/2024 4:00 PM EST Appointment Mammography/DXA at [place] [phone] Miryam Feliciano MD [facility] [place] [address] 07/12/2024 8:00 AM EDT Laboratory Appointment Lab [address] [phone] 07/12/2024 9:30 AM EDT Office Visit Nephrology Hypertension at [place] [phone] Sharmin Jean-Baptiste EXPERIMENTAL MECHANIC [facility] [place] [address] 07/13/2024 10:30 AM EDT Laboratory Appointment Lab at [facility] Hematology Oncology [address] [place] [phone] 07/13/2024 11:30 AM EDT Office Visit Hematology [place] [phone] Salena Alvares APRN [facility] [place] [address] 07/13/2024 12:45 PM EDT Appointment Hematology [place] [phone] documented as of this encounter Visit Diagnoses Diagnosis Hyperparathyroidism Hyperparathyroidism, unspecified documented in this encounter Care Teams Volleyball Player Relationship Specialty Start Date End Date Haylie Steward MD [facility] [place] [address] PCP - General General Internal Medicine 08/04/22 documented as of this encounter
--- OUTSIDE RECORDS SUMMARY | 2024-04-22 00:22 | XMS_ITS | Encounter Summary ---
Author Organization [facility] [place] [address] Care Team Providers Care Agriscience Teacher Name Role Phone Haylie Steward MD Primary Care Provider [phone] Encounter Details Date Type Department Care Team (Latest Contact Info) Description 07/09/2023 Travel Social History Tobacco Use Types Packs/Day [...] EST Scheduled View Only Radiation Oncology at [address] [phone] 04/25/2024 8:30 AM EST Scheduled View Only Radiation Oncology at [address] [phone] 04/26/2024 3:00 PM EST Scheduled View Only Radiation Oncology at [address] [phone] 04/26/2024 3:30 PM EST Office Visit Radiation Oncology at [address] [phone] Ofe Fonseca MD [facility] [place] [address] 04/28/2024 2:45 PM EST Scheduled View Only Radiation Oncology at [address] [phone] 04/29/2024 3:00 PM EST Scheduled View Only Radiation Oncology at [address] [phone] 05/02/2024 3:45 PM EST Scheduled View Only Radiation Oncology at [address] [phone] 05/03/2024 1:45 PM EST Scheduled View Only Radiation Oncology at [address] [phone] 05/03/2024 2:15 PM EST Office Visit Radiation Oncology at [address] [phone] fOe Fonseca MD [facility] [place] [address] 05/05/2024 8:15 AM EST Scheduled View Only Radiation Oncology at [address] [address] 05/06/2024 12:30 PM EST Scheduled View Only Radiation Oncology at [address] [phone] 05/09/2024 3:00 PM EST Scheduled View Only Radiation Oncology at [address] [phone] 05/10/2024 2:30 PM EST Scheduled View Only Radiation Oncology at [address] [phone] 05/10/2024 3:15 PM EST Office Visit Radiation Oncology at [address] [phone] Ofe Fonseca MD [facility] [place] [address] 05/11/2024 2:45 PM EST Scheduled View Only Radiation Oncology at [address] [phone] 06/03/2024 3:30 PM EST [place] [phone] Mira Hutchison, [facility] [address] 06/23/2024 4:00 PM EST Appointment Mammography/[place] [phone] Miryam Feliciano MD [facility] [place] [address] 07/12/2024 8:00 AM EDT Laboratory Appointment Lab [address] [place] [phone] 07/12/2024 9:30 AM EDT Office Visit [place] [phone] Sharmin Jean-Baptiste [facility] [place] [address] 07/13/2024 10:30 AM EDT Laboratory Appointment Lab at [facility] [place] Hematology Oncology [address] [place] [phone] 07/13/2024 11:30 AM EDT Office Visit Hematology [place] [address] Salena Alvares APRN [facility] [place] [place] [address] 07/13/2024 12:45 PM EDT Appointment Hematology [place] [phone] documented as of this encounter Visit Diagnoses Not on filedocumented in this encounter Care Teams Agriscience Teacher Relationship Specialty Start Date [place] [address] PCP - General General Internal Medicine 08/04/22 documented as of this encounter
--- OUTSIDE RECORDS SUMMARY | 2024-04-22 00:22 | XMS_ITS | Encounter Summary ---
[place] [address] Care Team Providers Care Bill Of Lading Clerk Name Role Phone Haylie Steward MD Primary Care Provider [phone] Reason for Visit * Reason Comments Genetic Evaluation * Consultation (Priority 1) - Closed Specialty Diagnoses / Procedures Referred By Mirlande burroughs Referred To Contact Hematology and Oncology Diagnoses Hyperparathyroidism Hypocalciuria Angela Heredia MD [facility] [place] [address] [facility] [address] [place] [address] Referral ID Status Reason Start Date Expiration Date V isits Requested Visits Authorized [id number] Closed Consult, Test & Treat 07/16/2023 07/15/2024 1 1 Encounter Details Date Type Department Care Team (Late st Contact Info) Description 01/05/2024 10:00 AM EDT Office Visit Hematology [place] [address] Brandie Pickett, [facility] [place] [address] Hyperparathyroidism; Hypocalciuria; Family history of malignant neoplasm of prostate; Family history of pancreatic cancer Social History Tobacco Use Types Packs/Day [...] as of this encounter Progress Notes * Brandie Pickett LGC - 01/05/2024 10:00 AM EDT Nataliya Morfin was seen by EDGARD Bellamy in consultation at the request of Angela rob regarding possible heritable predisposition to cancer. I spent 25 minutes of this in person encounter with the patient gathering medical and family history and discussing the likelihood of a genetic predisposition to cancer and the option of genetic testing. EDGARD Webster was present for today's visit, with Nataliya's permission. Reason for referral/Chief complaint Personal history of hyperparathyroidism, high serum calcium, and low urine calcium. Medical history Cancer hx and treatment: Nataliya is 48yo female who denies any personal history of cancer. Other relevant medical history: Nataliya follows with Dr. Heredia in endocrinology for her history of hyperparathyroidism. Per encounter with Dr. Heredia on 07/07/2023, Nataliya's history is as follows: She has a history of bipolar disorder and was previously on Rosa starting from 2003 until September 2022, when it was discontinued during a hospitalization for lithium toxicity. She has been noted since early 2022 to have hyperparathyroidism in setting of CKD and a high normal calcium. Not currently o n calcium supplementation, does take 1000 IU of vitamin D daily. Was previously drinking 2 glasses of milk daily, but has not been doing so recently. She has been following with nephrology, next visit this month. She does continue to have polyuria and polydipsia. 24 hour urine calcium was performedtwice so far, with urine calcium low. Of note, urine volume was high. Hypercalcemia now resolved, although calcium remains high normal with elevated PTH. Initially thought that hyperparathyroidism was caused by long winder tender use of lithium, as lithium is known to be associated with hyperparathyroidism. Rosa use can be associated with 4 gland hyperplasia or a parathyroid adenoma/unmasking of primary hyperparathyroidism. It is also known to raise the calcium set point. Since cessation of lithium, her serum calcium level has fallen, which is reassuring, but it remains high normal. However, her PTH level remains high. I have reviewed her case at our weekly endocrine case conference. As her 24 hour urine calcium is very low, this makes primary hyperparathyroidism unlikely and raises the possibility that she could possibly have FHH. In this case, genetic testing could be pursued. Another possibility is secondary hyperparathyroidism from CKD. Her estimate GFR isnow 48. Will obtain a cystatin- C as an alternative measure of her renal function to assess if her CKD could explain this degree of hyperparathyroidism. Will also check a serum ionized calcium. Her urine volume is very high and she endorses symptoms of polyuria, polydipsia - unclear if she also has a component of nephrogenic DI. Follow up to be determined by results of above testing. Family History of Cancer Problem Relation Age of Onset Melanoma Mother 62 Bladder Cancer Mother 82 Prostate Cancer Father 71 Prostate Cancer Maternal Grandfather Prostate Cancer Paternal Uncle Pancreatic Cancer Paternal Aunt Cancer Paternal Aunt salivary gland cancer Nataliya does not report any family history of hyperparathyroidism. Maternal ethnic background is Citizen [place], Turkish, and [place]. Paternal ethnic background is Mongolian, Citizen [place], and [place]. There is no known Ashkenazi Caodaism ancestry. Genetic risk assessment Based on Nataliya's history of hyperparathyroidism in the setting of hypercalcemia and hypocalciuria, the likelihood Nataliya would be found to have a mutation in a gene associated with familial hypocalciuric hypercalcemia (FHH) is high enough to offer Nataliya genetic testing. While Nataliya has a history of lithium use and CKD which have been associated with hyperparathyroidism and hypercalcemia, the persistent hyperparathyroidism and hypercalcemia in the setting of low urine calcium remains unexplained.Therefore, it is reasonable to offer Nataliya genetic analysis of FHH genes. We reviewed FHH is typically a benign condition that does not require surgical intervention as treatment, therefore, results of this testing may guide medical management recommendations for Nataliya and her family members. Additionally, based on personal and/or family history, the likelihood that Nataliya would be found to have a mutation in a cancer predisposition gene is high enough to offer the option of genetic testing. Specifically, Nataliya meets NCCN criteria for BRCA1/2 gene analysis based on her family history of prostate cancer in her father and paternal uncle and pancreatic cancer in her paternal aunt. Genetic test results may inform Nataliya and her family members of their hereditary cancer risks and guide cancer screening recommendations. We reviewed the three types of results: positive, negative, variant of uncertain significance. Positive results indicate a genetic mutation associated with a risk for cancer or FHH was identified andwe will review medical management recommendations for Nataliya and her family. Negative results indicate no mutations associated with a risk for cancer or FHH were identified. Variants of uncertain significance are genetic changes that do not have enough evidence to determine if they are a genetic mutation associated with a risk for cancer/FHH, or if they are a benign change in the gene that do not cause a risk. Panel genetic testing for an inherited predisposition to cancer, including breast cancer, was discussed. The risks, benefits and limitations of panel genetic testing were reviewed, specifically a high rate of identifying a variant of uncertain significance, lack of knowledge of cancer risk for newly identified, moderate risk genes included in the panel and lack of effective screening, as well as cancer risk for other cancers not observed in the family. We reviewed dominant inheritance, meaning that if a mutation is detected there is a 50% chance for Nataliya's siblings to have also inherited the same gene alteration. Nataliya opted for testing with [facility] Multi-Cancer Panel and Hereditary Hyperparathyroidism Panel,a next generation sequencing panel that simultaneously analyzes 74 genes, including FHH genes, BRCA1, and BRCA2, that contribute to increased risk for hyperparathyroidism and/or cancer. Nataliya was consented. Her blood sample was drawn and sent to [facility]. We reviewed [facility] billing policy. [facility] offers a patient assistance program (PAP) to help reduce the cost of testing. Once the insurance claim is settled, a billing services manager from [facility] will reach out to Nataliya to discuss potential ways to reduce cost (such as the PAP) should the final patient cost be greater than $100. Testing will take up to 3 weeks from when the lab receives the sample. Nataliya will be contacted via telephone once her test results become available. At that time, we will discuss with Nataliya the implications that this test result may have for her as well as her family members, review any recommendedscreening guidelines for cancer prevention and early detection, and answer any questions she may have. documented in this encounter Plan of Treatment Upcoming Encounters Date Type Department Care Team (Latest Contact Info) Description 04/22/2024 9:45 AM EST Scheduled View Only Radiation Oncology at [address] [phone] 04/25/2024 8:30 AM EST Scheduled View Only Radiation Oncology at [address] [phone] 04/26/2024 3:00 PM EST Scheduled View Only Radiation Oncology at [address] [phone] 04/26/2024 3:30 PM EST Office Visit Radiation Oncology at [address] [phone] Ofe Fonseca MD [facility] [place] [address] 04/28/2024 2:45 PM EST Scheduled View Only Radiation Oncology at [address] [phone] 04/29/2024 3:00 PM EST Scheduled View Only Radiation Oncology at [address] [phone] 05/02/2024 3:45 PM EST Scheduled View Only Radiation Oncology at [address] [phone] 05/03/2024 1:45 PM EST Scheduled View Only Radiation Oncology at [address] [phone] 05/03/2024 2:15 PM EST Office Visit Radiation Oncology at [address] [phone] Ofe Fonseca MD [facility] [place] [address] 05/05/2024 8:15 AM EST Scheduled View Only Radiation Oncology at [address] [phone] 05/06/2024 12:30 PM EST Scheduled View Only Radiation Oncology at [address] [phone] 05/09/2024 3:00 PM EST Scheduled View Only Radiation Oncology at [address] [address] 05/10/2024 2:30 PM EST Scheduled View Only Radiation Oncology at [address] [phone] 05/10/2024 3:15 PM EST Office Visit Radiation Oncology at [address] [phone] Ofe Fonseac MD [facility] DR [place] [address] 05/11/2024 2:45 PM EST Scheduled View Only Radiation Oncology at [address] [phone] 06/03/2024 3:30 PM EST Appointment Ultrasound at [place] [phone] Mira Hutchison APRN [facility] [place] [place] [address] 06/23/2024 4:00 PM EST Appointment Mammography/DXA at [place] [phone] Miryam Feliciano MD [facility] [place]ICAL [place] [address] 07/12/2024 8:00 AM EDT Laboratory Appointment Lab [address] [phone] 07/12/2024 9:30 AM EDT Office Visit Nephrology Hypertension at [place] [address] Sharmin Jean-Baptiste, [facility] [place] [address] 07/13/2024 10:30 AM EDT Laboratory Appointment Lab [place] [facility] [place] On[place] [address] [place] [phone] 07/13/2024 11:30 AM EDT Office Visit Hematology and Oncology at [place] [phone] Salena Alvares, [facility] DR [place]ICAL [place] [address] 07/13/2024 12:45 PM EDT Appointment Hematology and Oncology at [place] [phone] Scheduled Referrals Name Type Priority Associated Diagnoses Orde r Schedule Referral to Genetics Outpatient Referral Routine Hyperparathyroidism Hypocalciuria Ordered: 07/16/2023 documented as of this encounter Visit Diagnoses Diagnosis Hyperparathyroidism Hyperparathyroidism, unspecified Hypocalciuria Hypocalcemia Family history of malignant neoplasm of prostate Family history of pancreatic cancer Family history of malignant neoplasm of gastrointestinal tract documented in this encounter Care Teams Bill Of Lading Clerk Relationship Specialty Start Date [place] [address] PCP - General General Internal Medicine 08/04/22 documented as of this encounter
--- OUTSIDE RECORDS SUMMARY | 2024-04-22 00:22 | XMS_ITS | Encounter Summary ---
Author Organization [facility] [place] [address] Care Team Providers Care Scrap Piler Name Role Phone Haylie Steward MD Primary Care Provider + [phone] Encounter Details Date Type Department Care Team (Latest Contact Info) Description 07/28/2023 11:00 AM EDT Office Visit Nephrology [place] [address] Sharmin Jean-Baptiste APRN [facility] [place] [address] Stage 3a chronic kidney disease (CKD); CKD (chronic kidney disease) stage 2, GFR 60-89 ml/min; Hyperparathyroidism; White coat syndrome without diagnosis of hypertension Social History Tobacco Use Types Packs/Day Years Used Date Smoking Tobacco: Never Smokeless Tobacco: Never Alcohol Use Standard Drinks/Week Comments Not Currently 0 (1 standard drink = 0.6 oz pur e alcohol) [facility] Inpatient Questions Answer Date Recorded [...] Sign Reading Time Taken Comments Blood Pressure 138/56 07/28/2023 10:53 AM EDT Pulse 65 07/28/2023 10:53 AM EDT Temperature - - Respiratory Rate - - Oxygen Saturation 100% 07/28/2023 10:53 AM EDT Inhaled Oxygen Concentration - - Weight 58 kg (127 lb 12.8 oz) 07/28/2023 10:53 A M EDT Height 160 cm (5' 2.99) 07/28/2023 10:53 AM EDT Body Mass Index 22.64 07/28/2023 10:53 AM EDT documented in this encounter Progress Notes * Sharmin Jean-Baptiste, JULIUS - 07/28/2023 11:00 AM EDT Images from the original note were not included. Nephrology/Hypertension Clinic Follow-up Note [id number] ID: 48 y.o.year-old female being seen for follow up of CKD Stage 3 with history of lithium use. S: Interim history - Patient was last seen by nephrology on 04/23/23, when at that time her GFR was stable at 57. No hospitalizations, surgeries, or new diagnoses since last visit. Since last visit, Nataliya has been feeling well. Energy level good. No SOB. No chest pain/pressure. Appetite good. Hydration good. No N/V/D. No changes in urination. Voiding several times a day. Nocturia every few hours. No dysuria. No swelling. Mood and memory good. GFR Trend Over Time: Lab Results Component Value Date ESTGFR 64 07/28/2023 ESTGFR 48 (L) 06/08/2023 [...] History: Patient Active Problem List Diagnosis Code Stage 3a chronic kidney disease (CKD) N18.31 Hyperparathyroidism E21.3 Anemia D64.9 Ulmer intoxication, accidental or unintentional, initial encounter T56.891A Abnormal antibody titer R76.0 Benign neoplasm of skin D23.9 Bipolar affective, mixed F31.60 Chronic pansinusitis J32.4 Chronic tonsillitis J35.01 H/O toe surgery Z98.890 Herpes zoster without complication B02.9 Hypothyroidism E03.9 Irritable bowel syndrome K58.9 White coat syndrome without diagnosis of hypertension R03.0 Bipolar 1 disorder F31.9 Outpatient Encounter Medications as of 07/28/2023 Medication Sig Dispense Refill buPROPion XL (Wellbutrin XL) 150 mg XL 24 hr tablet Take 1 tablet by mouth every morning. 90 tablet0 pilocarpine (Salagen) 5 mg tablet Take 1 tablet by mouth 3 times daily. 90 tablet 2 levothyroxine (Synthroid) 75 mcg tablet Take 1 tablet by mouth every morning. 90 tablet 0 divalproex ER (Depakote ER) 250 mg ER 24 hr tablet 2 tabs AM and 3 tabs PM. 150 tablet 2 [DISCONTINUED] cholecalciferol, Vitamin D3, 25 mcg (1,000 unit) Capsule Take 1,000 Units by mouth daily. clonazePAM (KlonoPIN) 0.5 mg disintegrating tablet Take 0.5 mg by mouth daily as needed. acetaminophen (Tylenol) 500 mg tablet Take 1,000 mg by mouth every 6 hours as needed for Pain. calciTRIoL (Rocaltrol) 0.25 mcg capsule Take 1 capsule by mouth daily. 90 tablet 3 [DISCONTINUED] buPROPion XL (Wellbutrin XL) 150 mg XL 24 hr tablet Take 1 tablet by mouth every morning. 90 tablet 0 [DISCONTINUED] levothyroxine (Synthroid) 75 mcg tablet Take 1 tablet by mouth every morning. 90 tablet 0 [DISCONTINUED] pilocarpine (Salagen) 5 mg tablet Take 1 tablet by mouth 3 times daily. 90 tablet 2 [DISCONTINUED] Alosetron (Lotronex) 0.5 mg tablet Take 0.5 mg by mouth 2 times daily. No facility-administered encounter medications on file as of 07/28/2023. Allergies Allergen Reactions Nsaids (Non-Steroidal Anti-Inflammatory Drug) All interfere with lithium All interfere with lithium Tolmetin All interfere with lithium Ibuprofen Other reaction(s): Other, Other (See Comments), Unknown Patient states it affects her bipolar medication Ulmer. O: Vitals: 07/28/23 1053 BP: 138/56 BP Location (NBP): Left arm Patient Position: Sitting BP Cuff Sizes: Adult (25-34 cm) Pulse: 65 SpO2: 100% Weight: 58 kg (127 lb 12.8 oz) Height: 160 cm (5' 2.99) General: Arrived ambulatory. Alert, comfortable. Cooperative with exam. HEENT: Sclera white. Mucous membranes moist. No lymphadenopathy. CV: S1 and S2. HR regular. JVP not elevated. Resp: Lungs clear with no crackles or wheezes. Respirations non labored. Abd: Soft. + BS. No bruit. Non tender. : No CVA tenderness. Ext: Warm. No cyanosis. No edema. Skin: No rash. Neuro: Intact. Psych: Mood appropriate Labs: Recent Results (from the past 72 hour(s)) PTH Result Value Ref Range PTH 121 (H) 15 - 65 pg/mL Phosphorus Result Value Ref Range Phosphorus 3.5 2.5 - 4.5 mg/dL Iron and TIBC Result Value Ref Range Iron 94 30 - 150 mcg/dL TIBC 363 250 - 450 mcg/dL Iron Saturation 26 20 - 50 % Ferritin Result Value Ref Range Ferritin 36 6 - 175 ng/mL Basic Metabolic Panel (non-fasting) Result Value Ref Range Glucose Lvl 72 65 - 199 mg/dL BUN 31 (H) 8 - 18 mg/dL Creatinine 1.06 0.70 - 1.20 mg/dL Sodium 141 135 - 145 mmol/L Potassium 4.5 3.5 - 5.0 mmol/L Chloride 108 (H) 98 - 107 mmol/L CO2 25 22 - 31 mmol/L Anion Gap 8 5 - 15 mmol/L Calcium 9.9 8.5 - 10.5 mg/dL Estimated GFR 64 >=60 mL/min/1.73 m?? Albumin Level Result Value Ref Range Albumin 4.3 3.2 - 5.2 g/dL Hemogram Result Value Ref Range WBC 5.8 4.0 - 9.5 x10(3)/mcL RBC 4.74 4.00 - 5.21 x10(6)/mcL Hemoglobin 14.2 11.7 - 15.5 g/dL Hematocrit 45.2 35.7 - 45.8 % MCV 95.4 (H) 82.6 - 94.4 fL MCH 30.0 27.1 - 32.0 pg MCHC 31.4 (L) 31.7 - 35.0 g/dL Platelets 210 145 - 357 x10(3)/mcL RDWSD 56.6 (H) 37.0 - 46.0 fL RDWCV 15.9 (H) 11.5 - 14.1 % MPV 9.8 7.6 - 12.9 fL nRBC % Auto 0.0 % nRBC Abs Auto 0.000 0.000 - 0.000 x10(3)/mcL Differential, Automated Result Value Ref Range Neutrophils % 61.5 % Neutr Abs (ANC) 3.60 1.70 - 6.10 x10(3)/mcL Lymphocytes % 27.4 % Lymphocytes Abs 1.6 0.9 - 3.2 x10(3)/mcL Monocytes % 8.2 % Monocyte Abs 0.5 0.3 - 0.9 x10(3)/mcL Eosinophils % 2.1 % Eosinophils Abs 0.1 0.0 - 0.4 x10(3)/mcL Basophils % 0.3 % Basophils Abs 0.0 0.0 - 0.1 x10(3)/mcL Immature Gran % 0.50 % Nessa Gran Abs 0.03 0.00 - 0.04 x10(3)/mcL Protein/Creatinine Ratio, urine Result Value Ref Range U Creatinine 9 mg/dL U Protein Ran <6 0 - 12 mg/dL Prot/Cre Ratio <0.7 ratio _Urinalysis with microscopic Result Value Ref Range Glucose UA Negative Negative mg/dL Protein UA Negative Negative mg/dL Bilirubin UA Negative Negative mg/dL Urobilinogen UA Normal Normal mg/dL pH UA 6.5 5.0 - 8.0 Blood UA Negative Negative mg/dL Ketones UA Negative Negative mg/dL Nitrite UA Negative Negative Leukocytes UA Negative Negative mcL Appearance UA Clear Clear Spec Advance UA 1.005 1.005 - 1.030 Color UA Yellow Yellow RBC UA 0 0 - 4 /HPF WBC UA 0 0 - 5 /HPF Squam Epith UA 1 <=4 /HPF A/P: 48 y.o.year-old female seen for follow up for CKD Stage 3 with history of lithium use. CKD Stage 2 with GFR of 64 today, slowing improved over the last 3 years. By cystin-c her GFR is 58and very stable. HTN - BP appears to be adequately controlled without antihypertensives. Diabetes - Not present. Anemia - No anemia related to chronic disease. Iron stores adequate. KDIGO Hgb goal in CKD is 10.0-11.5g/dL. Ferritin >100ng/dl, TSAT >20% Bone and mineral - PTH mildly elevated. Will increase calcitriol to 0.5mcg. Calcium and phos in range. KDIGO PTH goals in CKD: Stage 3 - PTH 35-70pg/ml Stage 4 - PTH 70-110pg/ml Stage 5 - PTH 150-300pg/ml Acid-base - Metabolic acidosis is not present. Electrolytes - Potassium and sodium are in range. Nutrition - Normal albumin suggests adequate protein intake. Transplant/access referral - Not indicated. Return to clinic - Will return in approximately 3-4 months for follow-up. Patient encouraged to reach out with any questions or concerns. >the total time spent [id number] AND total time the provider spent counseling was 30 minutes. CC: Haylie Steward MD @[email or web address]@ documented in this encounter Plan of Treatment Upcoming Encounters Date Type Department Care Team (Latest Contact Info) Description 04/22/2024 9:45 AM EST Scheduled View Only Radiation Oncology at [address] [phone] 04/25/2024 8:30 AM EST Scheduled View Only Radiation Oncology at [address] [phone] 04/26/2024 3:00 PM EST Scheduled View Only Radiation Oncology at [address] [phone] 04/26/2024 3:30 PM EST Office Visit Radiation Oncology at [address] [phone] Ofe Fonseca MD [facility] [place] [place] [address] 04/28/2024 2:45 PM EST Scheduled View Only Radiation Oncology at [address] [phone] 04/29/2024 3:00 PM EST Scheduled View Only Radiation Oncology at [address] [phone] 05/02/2024 3:45 PM EST Scheduled View Only Radiation Oncology at [address] [phone] 05/03/2024 1:45 PM EST Scheduled View Only Radiation Oncology at [address] [phone] 05/03/2024 2:15 PM EST Office Visit Radiation Oncology at [address] [phone] Ofe Fonseca MD [facility] [place] [address] 05/05/2024 8:15 AM EST Scheduled View Only Radiation Oncology at [address] [phone] 05/06/2024 12:30 PM EST Scheduled View Only Radiation Oncology at [address] [phone] 05/09/2024 3:00 PM EST Scheduled View Only Radiation Oncology at [address] [phone] 05/10/2024 2:30 PM EST Scheduled View Only Radiation Oncology at [address] [phone] 05/10/2024 3:15 PM EST Office Visit Radiation Oncology at [address] [phone] Ofe Fonseca MD [facility] [place] [address] 05/11/2024 2:45 PM EST Scheduled View Only Radiation Oncology at [address] [phone] 06/03/2024 3:30 PM EST Appointment Ultrasound at [place] [phone] Mira Hutchison, [facility] [place] [address] 06/23/2024 4:00 PM EST Appointment Mammography/DXA at [place] [phone] Miryam Feliciano MD [facility] [place] [place] [address] 07/12/2024 8:00 AM EDT Laboratory Appointment Lab [address] [place], [place] [phone] 07/12/2024 9:30 AM EDT Office Visit Nephrology Hypertension at [place] [phone] Sharmin Jean-Baptiste, [facility] [place] [address] 07/13/2024 10:30 AM EDT Laboratory Appointment Lab at [facility] Hematology Oncology [address] [place], [place] [phone] 07/13/2024 11:30 AM EDT Office Visit Hematology [place] [phone] [facility] [address] 07/13/2024 12:45 PM EDT Appointment Hematology and Oncology at [place] [phone] documented as of this encounter Results * Protein/Creatinine Ratio, urine (07/28/2023 9:48 AM EDT) Creatinine, Urine 9 mg/dL [facility] Protein, Urine <6 0 - 12 mg/dL [facility] Protein / Creatinine Ratio, Urine <0.7 ratio [facility] Urine 07/28/2023 9:48 AM EDT 07/28/2023 10:01 AM EDT Narrative Resulting Agency Comment Spec In Lab Sharmingilberto Mckenzieeverett MADRID URINE ORDERABLES [facility] [place] [address] * _Urinalysis with microscopic (07/28/2023 9:48 AM EDT) Glucose, Urine Dipstick Negative Negative mg/dL [facility] Protein, Urine Dipstick Negative Negative mg/dL [facility] Bilirubin, Urine Dipstick Negative Negative mg/dL [facility] Comment: Clinical correlation required for positive Urine Bilirubin results as false positive may occur with some drugs and drug related products. If a false positive is suspected a serum total bilirubin should be considered if clinically indicated. Urobilinogen, Urine Dipstick Normal Normal mg/dL [facility] pH, Urn (dipstick) 6.5 5.0 - 8.0 [facility] Blood, Urine Dipstick Negative Negative mg/dL [facility] Ketone, Urine Dipstick Negative Negative mg/dL [facility] Nitrite, Urine Dipstick Negative Negative [facility] Leukocytes, Urine Dipstick Negative Negative [facility] Appearance, Urine Dipstick Clear Clear [facility] Specific Advance Urine Automated 1.005 1.005 - 1.030 [facility] Color, Urine Dipstick Yellow Yellow [facility] RBC, Urine 0 0 - 4 /HPF [facility] WBC, Urine 0 0 - 5 /HPF [facility] Squamous Epithelial Cells Raw Data, Urine 1 <=4 /HPF [facility] Urine 07/28/2023 9:48 AM EDT 07/28/2023 10:01 AM EDT Narrative Resulting Agency Comment Spec In Lab Sharmingilberto Jean-Baptiste TRAINING AND DEVELOPMENT ASSISTANT URINE ORDERABLES Performing Organization Address City/[facility]/ZIP Co de Phone Number [facility] [place] [address] * Vitamin D, 25-Hydroxy (07/28/2023 9:47 AM EDT) Vitamin D Total 25 OH 41 21 - 100 ng/mL [facility] Vit D Interp Sufficient [facility] Blood 07/28/2023 9:47 AM EDT 07/28/2023 10:06 AM EDT Narrative Resulting Agency Comment Spec In Lab Sharmingilberto Jean-Baptiste TRAINING AND DEVELOPMENT ASSISTANT CHEMISTRY ORDERAB LES Performing Organization Address City/[facility] Co de Phone Number [facility] [place] [address] * (ABNORMAL) PTH (07/28/2023 9:47 AM EDT) Parathyroid Hormone 121(H) 15 - 65 pg/mL [facility] Blood 07/28/2023 9:47 AM EDT 07/28/2023 10:06 AM EDT Narrative Resulting Agency Comment Spec In Lab Sharmingilberto Jean-Baptiste TRAINING AND DEVELOPMENT ASSISTANT CHEMISTRY ORDERAB LES Performing Organization Address [facility] Co de Phone Number [facility] [place] [address] * Phosphorus (07/28/2023 9:47 AM EDT) Phosphorus 3.5 2.5 - 4.5 mg/dL [facility] Blood 07/28/2023 9:47 AM EDT 07/28/2023 10:06 AM EDT Narrative Resulting Agency Comment Spec In Lab Sharmin Jean-Baptiste TRAINING AND DEVELOPMENT ASSISTANT CHEMISTRY ORDERAB LES Performing Organization Address [facility]/ZIP Co de Phone Number [facility] [place] [address] * Iron and TIBC (07/28/2023 9:47 AM EDT) Iron 94 30 - 150 mcg/dL [facility] TIBC 363 250 - 450 mcg/dL [facility] Iron Saturation 26 20 - 50 % [facility] Blood 07/28/2023 9:47 AM EDT 07/28/2023 10:06 AM EDT Narrative Resulting Agency Comment Spec In Lab Sharmin Jean-Baptiste TRAINING AND DEVELOPMENT ASSISTANT CHEMISTRY ORDERAB LES Performing Organization Address [facility] Co de Phone Number [facility] [place] [address] * Ferritin (07/28/2023 9:47 AM EDT) Ferritin 36 6 - 175 ng/mL [facility] Comment: Please note that as of 04/08/2023, the reference intervals for Ferritin have been updated. Blood 07/28/2023 9:47 AM EDT 07/28/2023 10:06 AM EDT Narrative Resulting Agency Comment Spec In Lab Sharmin Jean-Baptiste TRAINING AND DEVELOPMENT ASSISTANT CHEMISTRY ORDERAB LES Performing Organization Address [facility] Co de Phone Number [facility] [place] [address] * (ABNORMAL) Basic Metabolic Panel (non-fasting) (07/28/2023 9:47 AM EDT) Glucose 72 65 - 199 mg/dL [facility] Comment:Diabetes: >=200 mg/d L plus symptoms Blood Urea Nitrogen 31(H) 8 - 18 mg/dL [facility] Creatinine 1.06 0.70 - 1.20 mg/dL [facility] Sodium 141 135 - 145 mmol/L [facility] Potassium 4.5 3.5 - 5.0 mmol/L [facility] Comment: Please note: ??Patients with WBC >100,000 may have falsely elevated Potassium levels. ??For accurate Potassium quantification in these patients send serum separator tube (gold top) for subsequent determinations. ??Contact the Clinical Chemistry Laboratory if there are any questions. Chloride 108(H) 98 - 107 mmol/L [facility] Carbon Dioxide 25 22 - 31 mmol/L [facility] Anion Gap 8 5 - 15 mmol/L [facility] Calcium 9.9 8.5 - 10.5 mg/dL [facility] Est Glomerular Filtration Rate 64 >=60 mL/min/1. 73 m?? [facility] Comment: This patient's estimated GFR [...] and symptoms in addition to eGFR. Blood 07/28/2023 9:47 AM EDT 07/28/2023 10:06 AM EDT Narrative Resulting Agency Comment Spec In Lab Sharmin Jean-Baptiste APRN CHEMISTRY ORDERAB LES [facility] [place] [address] * Albumin Level (07/28/2023 9:47 AM EDT) Albumin 4.3 3.2 - 5.2 g/dL [facility] Blood 07/28/2023 9:47 AM EDT 07/28/2023 10:06 AM EDT Narrative Resulting Agency Comment Spec In Lab Sharmin Jean-Baptiste TRAINING AND DEVELOPMENT ASSISTANT CHEMISTRY ORDERAB LES [facility] [place] [address] documented in this encounter Visit Diagnoses Diagnosis Stage 3a chronic kidney disease (CKD) CKD (chronic kidney disease) stage 2, GFR 60-89 ml/min Chronic kidney disease, Stage II (mild) Hyperparathyroidism Hyperparathyroidism, unspecified White coat syndrome without diagnosis of hypertension Elevated blood pressure reading without diagnosis of hypertension documented in this encounter Care Teams Scrap Piler Relationship Specialty Start Date [place] [address] PCP - General General Internal Medicine 08/04/22 documented as of this encounter
--- OUTSIDE RECORDS SUMMARY | 2024-04-22 00:22 | XMS_ITS | Encounter Summary ---
Author Organization [facility] [place] [address] Care Team Providers Care Productivity Engineer Name Role Phone Haylie Steward MD Primary Care Provider [phone] Encounter Details Date Type Department Care Team (Latest Contact Info) Description 01/05/2024 Travel Social History Tobacco Use Types Packs/Day [...] EST Scheduled View Only Radiation Oncology at [address] [phone] 04/25/2024 8:30 AM EST Scheduled View Only Radiation Oncology at [address] [phone] 04/26/2024 3:00 PM EST Scheduled View Only Radiation Oncology at [address] [phone] 04/26/2024 3:30 PM EST Office Visit Radiation Oncology at [address] [phone] Ofe Fonseca MD [facility] [place] [address] 04/28/2024 2:45 PM EST Scheduled View Only Radiation Oncology at [address] [phone] 04/29/2024 3:00 PM EST Scheduled View Only Radiation Oncology at [address] [phone] 05/02/2024 3:45 PM EST Scheduled View Only Radiation Oncology at [address] [phone] 05/03/2024 1:45 PM EST Scheduled View Only Radiation Oncology at [address] [phone] 05/03/2024 2:15 PM EST Office Visit Radiation Oncology at [address] [phone] Ofe Fonseca MD [facility] [place] [address] 05/05/2024 8:15 AM EST Scheduled View Only Radiation Oncology at [address] [phone] 05/06/2024 12:30 PM EST Scheduled View Only Radiation Oncology at [address] [phone] 05/09/2024 3:00 PM EST Scheduled View Only Radiation Oncology at [address] [phone] 05/10/2024 2:30 PM EST Scheduled View Only Radiation Oncology at [address] [phone] 05/10/2024 3:15 PM EST Office Visit Radiation Oncology at [address] [phone] Ofe Fonseca MD [facility] [place] [address] 05/11/2024 2:45 PM EST Scheduled View Only Radiation Oncology at [address] [phone] 06/03/2024 3:30 PM EST Appointment [place] [phone] Mira Hutchison, [facility] [place] [place] [address] 06/23/2024 4:00 PM EST Appointment Mammography/[place] [phone] Miryam Feliciano MD [facility] [place] [address] 07/12/2024 8:00 AM EDT Laboratory Appointment Lab [address] [place] [phone] 07/12/2024 9:30 AM EDT Office Visit Nephrology [place] [phone] Sharmin Jean-Baptiste [facility] [place] [address] 07/13/2024 10:30 AM EDT Laboratory Appointment Lab at [facility] [place] Oncology [address] [place] [phone] 07/13/2024 11:30 AM EDT Office Visit Hematology [place] [address] Salena Alvares APRN [facility] [place] [address] 07/13/2024 12:45 PM EDT Appointment Hematology [place] [phone] documented as of this encounter Visit Diagnoses Not on filedocumented in this encounter Care Teams Productivity Engineer Relationship Specialty Start Date [place] [address] PCP - General General Internal Medicine 08/04/22 documented as of this encounter
--- OUTSIDE RECORDS SUMMARY | 2024-04-22 00:22 | XMS_ITS | Encounter Summary ---
Author Organization [facility] [place] [address] Care Team Providers Care Account Services Coordinator Name Role Phone Haylie Steward MD Primary Care Provider + [phone] Encounter Details Date Type Department Care Team (Latest Contact Info) Description 10/27/2023 11:30 AM EDT Office Visit Neph[place] [phone] Sharmin Jean-Baptiste APRN [facility] [place] [address] CKD (chronic kidney disease) stage 2, GFR 60-89 ml/min; Hyperparathyroidism Social History Tobacco Use Types Packs/Day Years Used Date Smoking Tobacco: Never Smokeless Tobacco: Never Alcohol Use Standard Drinks/Week Comments Not Currently 0 (1 standard drink = 0.6 oz pur e alcohol) [facility] Inpatient Questions Answer Date Recorded Does [...] Sign Reading Time Taken Comments Blood Pressure 125/63 10/27/2023 11:48 AM EDT Pulse 61 10/27/2023 11:48 AM EDT Temperature - - Respiratory Rate - - Oxygen Saturation - - Inhaled Oxygen Concentration - - Weight 58.5 kg (129 lb) 10/27/2023 11:48 AM EDT Height 160 cm (5' 3) 10/27/2023 11:48 AM EDT Body Mass Index 22.85 10/27/2023 11:48 AM EDT documented in this encounter Progress Notes * Sharmin Jean-Baptiste, BRICK TOSSER - 10/27/2023 11:30 AM EDT Images from the original note were not included. Nephrology/Hypertension Clinic Follow-up Note [id number] ID: 48 y.o.year-old female being seen for follow up of CKD Stage 2 with history of lithium use. S: Interim history - Patient was last seen by nephrology on 07/28/23, when at that time her GFR was stable/improved at 64. No hospitalizations, surgeries, or new diagnoses since last visit. Today, Nataliya shares that she has been feeling well. No lightheadedness or dizziness. No SOB. No chest pain/pressure. Appetite good. Hydration good. No N/V/D. No changes in urination. Voiding several times a day. Nocturia. No bloody or foamy urine. No dysuria. Able to empty bladder. No swelling. GFR Trend Over Time: Lab Results Component Value Date ESTGFR 65 10/26/2023 ESTGFR 64 07/28/2023 ESTGFR [...] 60-89 ml/min N18.2 Hyperparathyroidism E21.3 Anemia D64.9 [place] intoxication, accidental or unintentional, initial encounter T56.891A Abnormal antibody titer R76.0 Benign neoplasm of skin D23.9 Bipolar affective, mixed F31.60 Chronic pansinusitis J32.4 Chronic tonsillitis J35.01 H/O toe surgery Z98.890 Herpes zoster without complication B02.9 Hypothyroidism E03.9 Irritable bowel syndrome K58.9 White coat syndrome without diagnosis of hypertension R03.0 Bipolar 1 disorder F31.9 Outpatient Encounter Medications as of 10/27/2023 Medication Sig Dispense Refill buPROPion XL (Wellbutrin [...] and 3 tabs PM. 150 tablet 2 calciTRIoL (Rocaltrol) 0.25 mcg capsule Take 1 capsule by mouth daily. 90 tablet 3 clonazePAM (KlonoPIN) 0.5 mg disintegrating tablet Take 0.5 mg by mouth daily as needed. acetaminophen (Tylenol) 500 mg tablet Take 1,000 mg by mouth every 6 hours as needed for Pain. [DISCONTINUED] divalproex ER (Depakote ER) 250 mg ER 24 hr tablet Take 2 tablets by mouth twice daily 120 tablet 0 No facility-administered encounter medications on file as of 10/27/2023. Allergies Allergen Reactions Nsaids (Non-Steroidal Anti-Inflammatory Drug) All interfere with lithium All interfere with lithium Tolmetin All interfere with lithium Ibuprofen Other reaction(s): Other, Other (See Comments), Unknown Patient states it affects her bipolar medication [place]. O: Vitals: 10/27/23 1148 BP: 125/63 Pulse: 61 Weight: 58.5 kg (129 lb) Height: 160 cm (5' 3) General: Arrived ambulatory. Alert, comfortable. Cooperative with [...] Recent Results (from the past 72 hour(s)) Albumin Level Result Value Ref Range Albumin 3.9 3.2 - 5.2 g/dL Basic Metabolic Panel (non-fasting) Result Value Ref Range Glucose Lvl 72 65 - 199 mg/dL BUN 32 (H) 8 - 18 mg/dL Creatinine 1.05 0.70 - 1.20 mg/dL Sodium 139 135 - 145 mmol/L Potassium 4.3 3.5 - 5.0 mmol/L Chloride 108 (H) 98 - 107 mmol/L CO2 22 22 - 31 mmol/L Anion Gap 9 5 - 15 mmol/L Calcium 10.3 8.5 - 10.5 mg/dL Estimated GFR 65 >=60 mL/min/1.73 m?? PTH Result Value Ref Range PTH 103 (H) 15 - 65 pg/mL Vitamin D, 25-Hydroxy Result Value Ref Range 25-OH Vit D Total 33 21 - 100 ng/mL 25-OH Vit D Interp Sufficient Phosphorus Result Value Ref Range Phosphorus 3.2 2.5 - 4.5 mg/dL Iron and TIBC Result Value Ref Range Iron 89 30 - 150 mcg/dL TIBC 323 250 - 450 mcg/dL Iron Saturation 28 20 - 50 % Ferritin Result Value Ref Range Ferritin 45 6 - 175 ng/mL TSH Result Value Ref Range TSH 1.89 0.27 - 4.20 mcIU/mL Valproic Acid Level, Total Result Value Ref Range Valproic Lvl 80 mg/L Hemogram Result Value Ref Range WBC 5.0 4.0 - 9.5 x10(3)/mcL RBC 4.77 4.00 - 5.21 x10(6)/mcL Hemoglobin 14.9 11.7 - 15.5 g/dL Hematocrit 46.4 (H) 35.7 - 45.8 % MCV 97.3 (H) 82.6 - 94.4 fL MCH 31.2 27.1 - 32.0 pg MCHC 32.1 31.7 - 35.0 g/dL Platelets 187 145 - 357 x10(3)/mcL RDWSD 47.1 (H) 37.0 - 46.0 fL RDWCV 13.2 11.5 - 14.1 % MPV 9.5 7.6 - 12.9 fL nRBC % Auto 0.0 % nRBC Abs Auto 0.000 0.000 - 0.000 x10(3)/mcL Differential, Automated Result Value Ref Range Neutrophils % 58.3 % Neutr Abs (ANC) 2.94 1.70 - 6.10 x10(3)/mcL Lymphocytes % 29.0 % Lymphocytes Abs 1.5 0.9 - 3.2 x10(3)/mcL Monocytes % 8.7 % Monocyte Abs 0.4 0.3 - 0.9 x10(3)/mcL Eosinophils % 3.4 % Eosinophils Abs 0.2 0.0 - 0.4 x10(3)/mcL Basophils % 0.4 % Basophils Abs 0.0 0.0 - 0.1 x10(3)/mcL Immature Gran % 0.20 % Nessa Gran Abs 0.01 0.00 - 0.04 x10(3)/mcL _Urinalysis with microscopic Result Value Ref Range Glucose UA Negative Negative mg/dL Protein UA Negative Negative mg/dL Bilirubin UA Negative Negative mg/dL Urobilinogen UA Normal Normal mg/dL pH UA 6.5 5.0 - 8.0 Blood UA Negative Negative mg/dL Ketones UA Negative Negative mg/dL Nitrite UA Negative Negative Leukocytes UA Negative Negative mcL Appearance UA Clear Clear Spec Turin UA 1.006 1.005 - 1.030 Color UA Yellow Yellow RBC UA 0 0 - 4 /HPF WBC UA 0 0 - 5 /HPF Squam Epith UA 1 <=4 /HPF Protein/Creatinine Ratio, urine Result Value Ref Range U Creatinine 13 mg/dL U Protein Ran <6 0 - 12 mg/dL Prot/Cre Ratio <0.5 ratio A/P: 48 y.o.year-old female seen for follow up for CKD Stage 2 with history of lithium use. CKD Stage 2 with a GFR of 65 today. Stable/improving over last several years. Proteinuria and hematuria are absent. Risk factors for worsening renal function reviewed. Discussed importance of adequate hydration and avoidance of NSAIDs. HTN - BP appears to be adequately controlled, not on any antihypertensives. Anemia - No anemia related to chronic disease. Iron stores adequate. KDIGO Hgb goal in CKD is 10.0-11.5g/dL. Ferritin >100ng/dl, TSAT >20% Bone and mineral - PTH improving. Calcium and phos in range. 25 OH Vit D sufficient. Continue calcitriol 0.25mcg daily. Will continue to trend BMM labs every 3-4 months. KDIGO PTH goals in CKD: PTH < 150pg/ml Acid-base - Metabolic acidosis is not present. Electrolytes - Potassium and sodium are in range. Nutrition - Normal albumin suggests adequate protein intake. Transplant/access referral - Not indicated. Return to clinic - Will return in approximately 3-4 year for follow-up. Patient encouraged to reachout with any questions or concerns. >the total time spent [id number] AND total time the provider spent counseling was 30 minutes. CC: Haylie Steward MD @[email or web address]@ documented in this encounter Plan of Treatment Upcoming Encounters Date Type Department Care Team (Latest Contact Info) Description 04/22/2024 9:45 AM EST Scheduled View Only Radiation Oncology at [address] [phone] 04/25/2024 8:30 AM EST Scheduled View Only Radiation Oncology at [address] [phone] 04/26/2024 3:00 PM EST Scheduled View Only Radiation Oncology at [address] [phone] 04/26/2024 3:30 PM EST Office Visit Radiation Oncology at [address] [phone] Ofe Fonseca MD [facility] [place] [address] 04/28/2024 2:45 PM EST Scheduled View Only Radiation Oncology at [address] [phone] 04/29/2024 3:00 PM EST Scheduled View Only Radiation Oncology at [address] [phone] 05/02/2024 3:45 PM EST Scheduled View Only Radiation Oncology at [address] [phone] 05/03/2024 1:45 PM EST Scheduled View Only Radiation Oncology at [address] [phone] 05/03/2024 2:15 PM EST Office Visit Radiation Oncology at [address] [phone] Ofe Fonseca MD [facility] [place] [address] 05/05/2024 8:15 AM EST Scheduled View Only Radiation Oncology at [address] [phone] 05/06/2024 12:30 PM EST Scheduled View Only Radiation Oncology at [address] [phone] 05/09/2024 3:00 PM EST Scheduled View Only Radiation Oncology at [address] [phone] 05/10/2024 2:30 PM EST Scheduled View Only Radiation Oncology at [address] [phone] 05/10/2024 3:15 PM EST Office Visit Radiation Oncology at [address] [phone] Ofe Fonseca MD [facility] [place] [address] 05/11/2024 2:45 PM EST Scheduled View Only Radiation Oncology at [address] [phone] 06/03/2024 3:30 PM EST [place]ment [place] [phone] Mira Hutchison BRICK TOSSER [facility] [place] [address] 06/23/2024 4:00 PM EST Appointment Mammography/DXA at [place] [phone] Miryam Feliciano MD [facility] [place] [address] 07/12/2024 8:00 AM EDT Laboratory Appointment Lab [address] [place] [phone] 07/12/2024 9:30 AM EDT Office Visit Nephrology Hypertension at [place] [phone] Sharmin Jean-Baptiste [facility] [address] 07/13/2024 10:30 AM EDT Laboratory Appointment Lab at [facility] Hematology Oncology [address] [place], [place] [phone] 07/13/2024 11:30 AM EDT Office Visit Hematology and Oncology at [place] [phone] Salena Alvares BRICK TOSSER [facility] [place] [address] 07/13/2024 12:45 PM EDT Appointment Hematology [place] [phone] documented as of this encounter Results * Protein/Creatinine Ratio, urine (10/26/2023 9:38 AM EDT) Creatinine, Urine 13 mg/dL [facility] Protein, Urine <6 0 - 12 mg/dL [facility] Protein / Creatinine Ratio, Urine <0.5 ratio [facility] Urine 10/26/2023 9:38 AM EDT 10/26/2023 9:47 AM EDT Narrative Resulting Agency Comment Spec In Lab Sharmin Jean-Baptiste BRICK TOSSER URINE ORDERABLES [facility] [place] [address] * _Urinalysis with microscopic (10/26/2023 9:38 AM EDT) Glucose, Urine Dipstick Negative Negative mg/dL [facility] Protein, Urine Dipstick Negative Negative mg/dL [facility] Bilirubin, Urine Dipstick Negative Negative mg/dL [facility] Comment: Clinical correlation required for positive Urine Bilirubin results as false positive may occur with some drugs and drug related products. If a false positive is suspected a serum total bilirubin should be considered if clinically indicated. Urobilinogen, Urine Dipstick Normal Normal mg/dL [facility] pH, Urn (dipstick) 6.5 5.0 - 8.0 [facility] Blood, Urine Dipstick Negative Negative mg/dL [facility] Ketone, Urine Dipstick Negative Negative mg/dL [facility] Nitrite, Urine Dipstick Negative Negative [facility] Leukocytes, Urine Dipstick Negative Negative [facility] Appearance, Urine Dipstick Clear Clear [facility] Specific Turin Urine Automated 1.006 1.005 - 1.030 [facility] Color, Urine Dipstick Yellow Yellow [facility] RBC, Urine 0 0 - 4 /HPF [facility] WBC, Urine 0 0 - 5 /HPF [facility] Squamous Epithelial Cells Raw Data, Urine 1 <=4 /HPF [facility] Urine 10/26/2023 9:38 AM EDT 10/26/2023 9:47 AM EDT Narrative Resulting Agency Comment Spec In Lab Sharmin Jean-Baptiste BRICK TOSSER URINE ORDERABLES Performing Organization Address City/[facility]/ZIP Co de Phone Number [facility] [place] [address] * Ferritin (10/26/2023 8:27 AM EDT) Ferritin 45 6 - 175 ng/mL [facility] Comment: Please note that as of 04/08/2023, the reference intervals for Ferritin have been updated. Blood 10/26/2023 8:27 AM EDT 10/26/2023 8:33 AM EDT Narrative Resulting Agency Comment Spec In Lab Sharmingilberto Jean-Baptiste BRICK TOSSER CHEMISTRY ORDERAB LES Performing Organization Address [facility] Co de Phone Number [facility] [place] [address] * Iron and TIBC (10/26/2023 8:27 AM EDT) Iron 89 30 - 150 mcg/dL [facility] TIBC 323 250 - 450 mcg/dL [facility] Iron Saturation 28 20 - 50 % [facility] Blood 10/26/2023 8:27 AM EDT 10/26/2023 8:33 AM EDT Narrative Resulting Agency Comment Spec In Lab Sharmin Jean-Baptiste BRICK TOSSER CHEMISTRY ORDERAB LES Performing Organization Address City/[facility]/ZIP Co de Phone Number [facility] [place] [address] * Phosphorus (10/26/2023 8:27 AM EDT) Phosphorus 3.2 2.5 - 4.5 mg/dL [facility] Blood 10/26/2023 8:27 AM EDT 10/26/2023 8:33 AM EDT Narrative Resulting Agency Comment Spec In Lab Sharmin Jean-Baptiste BRICK TOSSER CHEMISTRY ORDERAB LES Performing Organization Address City/[facility]/ZIP Co de Phone Number [facility] [place] [address] * Vitamin D, 25-Hydroxy (10/26/2023 8:27 AM EDT) Vitamin D Total 25 OH 33 21 - 100 ng/mL [facility] Vit D Interp Sufficient [facility] Blood 10/26/2023 8:27 AM EDT 10/26/2023 8:33 AM EDT Narrative Resulting Agency Comment Spec In Lab Sharmin Jean-Baptiste BRICK TOSSER CHEMISTRY ORDERAB LES Performing Organization Address [facility]/ZIP Co de Phone Number [facility] [place] [address] * (ABNORMAL) PTH (10/26/2023 8:27 AM EDT) Parathyroid Hormone 103(H) 15 - 65 pg/mL [facility] Blood 10/26/2023 8:27 AM EDT 10/26/2023 8:33 AM EDT Narrative Resulting Agency Comment Spec In Lab Sharmin Jean-Baptiste BRICK TOSSER CHEMISTRY ORDERAB LES Performing Organization Address City/[facility]/ZIP Co de Phone Number [facility] [address] * (ABNORMAL) Basic Metabolic Panel (non-fasting) (10/26/2023 8:27 AM EDT) Glucose 72 65 - 199 mg/dL [facility] Comment:Diabetes: >=200 mg/d L plus symptoms Blood Urea Nitrogen 32(H) 8 - 18 mg/dL [facility] Creatinine 1.05 0.70 - 1.20 mg/dL [facility] Sodium 139 135 - 145 mmol/L [facility] Potassium 4.3 3.5 - 5.0 mmol/L [facility] Comment: Please note: ??Patients with WBC >100,000 may have falsely elevated Potassium levels. ??For accurate Potassium quantification in these patients send serum separator tube (gold top) for subsequent determinations. ??Contact the Clinical Chemistry Laboratory if there are any questions. Chloride 108(H) 98 - 107 mmol/L [facility] Carbon Dioxide 22 22 - 31 mmol/L [facility] Anion Gap 9 5 - 15 mmol/L [facility] Calcium 10.3 8.5 - 10.5 mg/dL [facility] Est Glomerular Filtration Rate 65 >=60 mL/min/1. 73 m?? [facility] Comment: This patient's estimated [...] Agency Comment Spec In Lab Sharmin Jean-Baptiste BRICK TOSSER CHEMISTRY ORDERAB LES [facility] [place] [address] * Albumin Level (10/26/2023 8:27 AM EDT) Albumin 3.9 3.2 - 5.2 g/dL [facility] Blood 10/26/2023 8:27 AM EDT 10/26/2023 8:33 AM EDT Narrative Resulting Agency Comment Spec In Lab Sharmin Jean-Baptiste BRICK TOSSER CHEMISTRY ORDERAB LES [facility] [place] [address] documented in this encounter Visit Diagnoses Diagnosis CKD (chronic kidney disease) stage 2, GFR 60-89 ml/min Chronic kidney disease, Stage II (mild) Hyperparathyroidism Hyperparathyroidism, unspecified documented in this encounter Care Teams Account Services Coordinator Relationship Specialty Start Date End Date Haylie Steward MD [facility] [place] [address] PCP - General General Internal Medicine 08/04/22 documented as of this encounter
--- OUTSIDE RECORDS SUMMARY | 2024-04-22 00:22 | XMS_ITS | Encounter Summary ---
Author Organization [facility] [place] [address] Care Team Providers Care Cane Flume Feeding Machine Operator Name Role Phone Haylie Steward MD Primary Care Provider [phone] Encounter Details Date Type Department Care Team (Latest Contact Info) Description 07/28/2023 Travel Social History Tobacco Use Types Packs/Day [...] Scheduled View Only Radiation Oncology at [address] [phone] 04/25/2024 8:30 AM EST Scheduled View Only Radiation Oncology at [address] [phone] 04/26/2024 3:00 PM EST Scheduled View Only Radiation Oncology at [address] [phone] 04/26/2024 3:30 PM EST Office Visit Radiation Oncology at [address] [phone] Ofe Fonseca MD [facility] [place] [address] 04/28/2024 2:45 PM EST Scheduled View Only Radiation Oncology at [address] [address] 04/29/2024 3:00 PM EST Scheduled View Only Radiation Oncology at [address] [phone] 05/02/2024 3:45 PM EST Scheduled View Only Radiation Oncology at [address] [phone] 05/03/2024 1:45 PM EST Scheduled View Only Radiation Oncology at [address] [phone] 05/03/2024 2:15 PM EST Office Visit Radiation Oncology at [address] [phone] Ofe Fonseca MD [facility] [place] [address] 05/05/2024 8:15 AM EST Scheduled View Only Radiation Oncology at [address] [address] 05/06/2024 12:30 PM EST Scheduled View Only Radiation Oncology at [address] [phone] 05/09/2024 3:00 PM EST Scheduled View Only Radiation Oncology at [address] [phone] 05/10/2024 2:30 PM EST Scheduled View Only Radiation Oncology at [address] [phone] 05/10/2024 3:15 PM EST Office Visit Radiation Oncology at [address] [phone] Ofe Fonseca MD [facility] [place] [address] 05/11/2024 2:45 PM EST Scheduled View Only Radiation Oncology at [address] [phone] 06/03/2024 3:30 PM EST Appointment [place] [phone] Mira Hutchison, [facility] [place] [address] 06/23/2024 4:00 PM EST Appointment Mammography/[place] [phone] Miryam Feliciano MD [facility] [place] [address] 07/12/2024 8:00 AM EDT Laboratory Appointment Lab [address] [place] [phone] 07/12/2024 9:30 AM EDT Office Visit Nephrology [place] [phone] Sharmin Jean-Baptiste [facility] [place] [address] 07/13/2024 10:30 AM EDT Laboratory Appointment Lab at [facility] Hematology Oncology [address] [place] [phone] 07/13/2024 11:30 AM EDT Office Visit Hematology [place] [address] Salena Avlares APRN [facility] [place] [address] 07/13/2024 12:45 PM EDT Appointment Hematology [place] [phone] documented as of this encounter Visit Diagnoses Not on filedocumented in this encounter Care Teams Cane Flume Feeding Machine Operator Relationship Specialty Start Date [place] [address] PCP - General General Internal Medicine 08/04/22 documented as of this encounter
--- OUTSIDE RECORDS SUMMARY | 2024-04-22 00:22 | XMS_ITS | Encounter Summary ---
Author Organization [facility] [place] [address] Care Team Providers Care Butcher All Round Name Role Phone Haylie Steward MD Primary Care Provider [phone] Encounter Details Date Type Department Care Team (Latest Contact Info) Description 07/19/2023 Travel Social History Tobacco Use Types Packs/Day [...] Scheduled View Only Radiation Oncology at [address] [phone] 04/25/2024 8:30 AM EST Scheduled View Only Radiation Oncology at [address] [phone] 04/26/2024 3:00 PM EST Scheduled View Only Radiation Oncology at [address] [address] 04/26/2024 3:30 PM EST Office Visit Radiation Oncology at [address] [phone] Ofe Fonseca MD [facility] [place] [address] 04/28/2024 2:45 PM EST Scheduled View Only Radiation Oncology at [address] [phone] 04/29/2024 3:00 PM EST Scheduled View Only Radiation Oncology at [address] [phone] 05/02/2024 3:45 PM EST Scheduled View Only Radiation Oncology at [address] [phone] 05/03/2024 1:45 PM EST Scheduled View Only Radiation Oncology at [address] [phone] 05/03/2024 2:15 PM EST Office Visit Radiation Oncology at [address] [phone] Ofe Fonseca MD [facility] [place] [address] 05/05/2024 8:15 AM EST Scheduled View Only Radiation Oncology at [address] [phone] 05/06/2024 12:30 PM EST Scheduled View Only Radiation Oncology at [address] [phone] 05/09/2024 3:00 PM EST Scheduled View Only Radiation Oncology at [address] [phone] 05/10/2024 2:30 PM EST Scheduled View Only Radiation Oncology at [address] [phone] 05/10/2024 3:15 PM EST Office Visit Radiation Oncology at [address] [phone] Ofe Fonseca MD [facility] [place] [address] 05/11/2024 2:45 PM EST Scheduled View Only Radiation Oncology at [address] [phone] 06/03/2024 3:30 PM EST [place] [phone] Mira Hutchison, [facility] [place] [address] 06/23/2024 4:00 PM EST Appointment Mammography/[place] [phone] Miryam Feliciano MD [facility] [place] [address] 07/12/2024 8:00 AM EDT Laboratory Appointment Lab [address] [place] [phone] 07/12/2024 9:30 AM EDT Office Visit Ne[place] [phone] Sharmin Jean-Baptiste [facility] [place] [address] 07/13/2024 10:30 AM EDT Laboratory Appointment Lab at [facility] Hematology Oncology [address] [place] [phone] 07/13/2024 11:30 AM EDT Office Visit Hematology [place] [address] Salena Alvares APRN [facility] [place] [address] 07/13/2024 12:45 PM EDT Appointment Hematology [place] [phone] documented as of this encounter Visit Diagnoses Not on filedocumented in this encounter Care Teams Butcher All Round Relationship Specialty Start Date [place] [address] PCP - General General Internal Medicine 08/04/22 documented as of this encounter
--- OUTSIDE RECORDS SUMMARY | 2024-04-22 00:22 | XMS_ITS | Encounter Summary ---
[place] [address] Care Team Providers Care Principal Java Developer Name Role Phone Haylie Steward MD Primary Care Provider + [phone] Reason for Referral * Consultation (Priority 1) - Closed Specialty Diagnoses / Procedures Referred By Contac t Referred To Contact Hematology and Oncology Diagnoses Hyperparathyroidism Hypocalciuria Angela Heredia MD [facility] [place] [address] [facility] Hem Onc [address] [place] [address] Referral ID Status Reason Start Date Expiration Date V isits Requested Visits Authorized [id number] Closed Consult, Test & Treat 07/16/2023 07/15/2024 1 1 Encounter Details Date Type Department Care Team (Late st Contact Info) Description 07/16/2023 Orders [place] [phone] Angela Heredia MD [facility] [place] [address] Hyperparathyroidism; Hypocalciuria Social History Tobacco Use Types Packs/Day Years Used Date Smoking Tobacco: Never Smokeless Tobacco: Never Alcohol Use Standard Drinks/Week Comments Not Currently 0 (1 standard drink = 0.6 oz pur e alcohol) [facility] Inpatient Questions Answer Date Recorded [...] Scheduled View Only Radiation Oncology at [address] [phone] 04/25/2024 8:30 AM EST Scheduled View Only Radiation Oncology at [address] [address] 04/26/2024 3:00 PM EST Scheduled View Only Radiation Oncology at [address] [phone] 04/26/2024 3:30 PM EST Office Visit Radiation Oncology at [address] [phone] Ofe Fonseca MD [facility] [place] [address] 04/28/2024 2:45 PM EST Scheduled View Only Radiation Oncology at [address] [address] 04/29/2024 3:00 PM EST Scheduled View Only Radiation Oncology at [address] [address] 05/02/2024 3:45 PM EST Scheduled View Only Radiation Oncology at [address] [address] 05/03/2024 1:45 PM EST Scheduled View Only Radiation Oncology at [address] [address] 05/03/2024 2:15 PM EST Office Visit Radiation Oncology at [address] [phone] Ofe Fonseca MD [facility] [place] [address] 05/05/2024 8:15 AM EST Scheduled View Only Radiation Oncology at [address] [address] 05/06/2024 12:30 PM EST Scheduled View Only Radiation Oncology at [address] [address] 05/09/2024 3:00 PM EST Scheduled View Only Radiation Oncology at [address] [address] 05/10/2024 2:30 PM EST Scheduled View Only Radiation Oncology at [address] [address] 05/10/2024 3:15 PM EST Office Visit Radiation Oncology at [address] [address] Ofe Fonseca MD [facility] [place] [address] 05/11/2024 2:45 PM EST Scheduled View Only Radiation Oncology at [address] [address] 06/03/2024 3:30 PM EST Appointment [place] [phone] Mira Hutchison APRN [facility] [place] [address] 06/23/2024 4:00 PM EST Appointment Mammography/[place] [phone] Miryam Feliciano MD [facility] [place] [address] 07/12/2024 8:00 AM EDT Laboratory Appointment Lab [address] [place] [address] 07/12/2024 9:30 AM EDT Office Visit Nephrology Hypertension at [place] [address] Sharmin Jean-Baptiste, [facility] [place] [address] 07/13/2024 10:30 AM EDT Laboratory Appointment Lab at [facility] Hematology Oncology [address] [place], [place] [phone] 07/13/2024 11:30 AM EDT Office Visit Hematology and Oncology at [place] [phone] Salena Alvares, [facility] [place] [address] 07/13/2024 12:45 PM EDT Appointment Hematology and Oncology at [place] [phone] Scheduled Referrals Name Type Priority Associated Diagnoses Orde r Schedule Referral to Genetics Outpatient Referral Routine Hyperparathyroidism Hypocalciuria Ordered: 07/16/2023 documented as of this encounter Visit Diagnoses Diagnosis Hyperparathyroidism Hyperparathyroidism, unspecified Hypocalciuria Hypocalcemia documented in this encounter Care Teams Principal Java Developer Relationship Specialty Start Date End Date [place] [address] PCP - General General Internal Medicine 08/04/22 documented as of this encounter
--- OUTSIDE RECORDS SUMMARY | 2024-04-22 00:22 | XMS_ITS | Encounter Summary ---
Author Organization [facility] [place] [address] Care Team Providers Care Cigar Sorter Name Role Phone Haylie Steward MD Primary Care Provider [phone] Encounter Details Date Type Department Care Team (Latest Contact Info) Description 07/25/2023 Travel Social History Tobacco Use Types Packs/Day [...] Scheduled View Only Radiation Oncology at [address] [address] 04/25/2024 8:30 AM EST Scheduled View Only Radiation Oncology at [address] [address] 04/26/2024 3:00 PM EST Scheduled View Only Radiation Oncology at [address] [address] 04/26/2024 3:30 PM EST Office Visit Radiation Oncology at [address] [phone] Ofe Fonseca MD [facility] [place] [address] 04/28/2024 2:45 PM EST Scheduled View Only Radiation Oncology at [address] [phone] 04/29/2024 3:00 PM EST Scheduled View Only Radiation Oncology at [address] [address] 05/02/2024 3:45 PM EST Scheduled View Only Radiation Oncology at [address] [address] 05/03/2024 1:45 PM EST Scheduled View Only Radiation Oncology at [address] [address] 05/03/2024 2:15 PM EST Office Visit Radiation Oncology at [address] [phone] Ofe Fonseca MD [facility] [place] [address] 05/05/2024 8:15 AM EST Scheduled View Only Radiation Oncology at [address] [address] 05/06/2024 12:30 PM EST Scheduled View Only Radiation Oncology at [address] [address] 05/09/2024 3:00 PM EST Scheduled View Only Radiation Oncology at [address] [address] 05/10/2024 2:30 PM EST Scheduled View Only Radiation Oncology at [address] [address] 05/10/2024 3:15 PM EST Office Visit Radiation Oncology at [address] [phone] Ofe Fonseca MD [facility] [place] [address] 05/11/2024 2:45 PM EST Scheduled View Only Radiation Oncology at [address] [phone] 06/03/2024 3:30 PM EST [place]oint[place] [phone] Mira Hutchison, [facility] [place] [address] 06/23/2024 4:00 PM EST Appointment Mammography/[place] [phone] Miryam Feliciano MD [facility] [place] [address] 07/12/2024 8:00 AM EDT Laboratory Appointment Lab [address] [place] [phone] 07/12/2024 9:30 AM EDT Office Visit Neph[place] [phone] Sharmin Jean-Baptiste [facility] [place] [address] 07/13/2024 10:30 AM EDT Laboratory Appointment Lab at [facility] Hematology Oncology [address] [place] [phone] 07/13/2024 11:30 AM EDT Office Visit Hematology [place] [phone] Salena Alvares APRN [facility] [place] [address] 07/13/2024 12:45 PM EDT Appointment Hematology [place] [phone] documented as of this encounter Visit Diagnoses Not on filedocumented in this encounter Care Teams Cigar Sorter Relationship Specialty Start Date [place] [address] PCP - General General Internal Medicine 08/04/22 documented as of this encounter
--- OUTSIDE RECORDS SUMMARY | 2024-04-22 00:22 | XMS_ITS | Encounter Summary ---
Author Organization [facility] [place] [address] Care Team Providers Care Director Of Women'S Services Name Role Phone Haylie Steward MD Primary Care Provider [phone] Encounter Details Date Type Department Care Team (Latest Contact Info) Description 08/01/2023 Travel Social History Tobacco Use Types Packs/Day [...] EST Scheduled View Only Radiation Oncology at [address] [address] 04/25/2024 8:30 AM EST Scheduled View Only Radiation Oncology at [address] [address] 04/26/2024 3:00 PM EST Scheduled View Only Radiation Oncology at [address] [phone] 04/26/2024 3:30 PM EST Office Visit Radiation Oncology at [address] [address] Ofe Fonseca MD [facility] [place] [address] 04/28/2024 2:45 PM EST Scheduled View Only Radiation Oncology at [address] [address] 04/29/2024 3:00 PM EST Scheduled View Only Radiation Oncology at [address] [phone] 05/02/2024 3:45 PM EST Scheduled View Only Radiation Oncology at [address] [address] 05/03/2024 1:45 PM EST Scheduled View Only Radiation Oncology at [address] [phone] 05/03/2024 2:15 PM EST Office Visit Radiation Oncology at [address] [phone] Ofe Fonseca MD [facility] [place] [address] 05/05/2024 8:15 AM EST Scheduled View Only Radiation Oncology at [address] [address] 05/06/2024 12:30 PM EST Scheduled View Only Radiation Oncology at [address] [address] 05/09/2024 3:00 PM EST Scheduled View Only Radiation Oncology at [address] [address] 05/10/2024 2:30 PM EST Scheduled View Only Radiation Oncology at [address] [address] 05/10/2024 3:15 PM EST Office Visit Radiation Oncology at [address] [phone] Ofe Fonseca MD [facility] [place] [address] 05/11/2024 2:45 PM EST Scheduled View Only Radiation Oncology at [address] [phone] 06/03/2024 3:30 PM EST Appointment [place] [phone] Mira Hutchison, [facility] [place] [address] 06/23/2024 4:00 PM EST Appointment Mammography/[place] [phone] Miryam Feliciano MD [facility] [place] [address] 07/12/2024 8:00 AM EDT Laboratory Appointment Lab [address] [place] [phone] 07/12/2024 9:30 AM EDT Office Visit Nephrology [place] [phone] Sharmin Jean-Baptiste [facility] [place] [address] 07/13/2024 10:30 AM EDT Laboratory Appointment Lab at [facility] Hematology Oncology [address] [place] [phone] 07/13/2024 11:30 AM EDT Office Visit Hematology [place] [address] Salena Alvares APRN [facility] [place] [address] 07/13/2024 12:45 PM EDT Appointment Hematology [place] [phone] documented as of this encounter Visit Diagnoses Not on filedocumented in this encounter Care Teams Director Of Women'S Services Relationship Specialty Start Date [place] [address] PCP - General General Internal Medicine 08/04/22 documented as of this encounter
--- OUTSIDE RECORDS SUMMARY | 2024-04-22 00:22 | XMS_ITS | Encounter Summary ---
Author Organization [facility] [place] [address] Care Team Providers Care Lawn Mower Name Role Phone Haylie Steward MD Primary Care Provider [phone] Encounter Details Date Type Department Care Team (Latest Contact Info) Description 07/21/2023 Travel Social History Tobacco Use Types Packs/Day [...] Scheduled View Only Radiation Oncology at [address] [address] 04/25/2024 8:30 AM EST Scheduled View Only Radiation Oncology at [address] [address] 04/26/2024 3:00 PM EST Scheduled View Only Radiation Oncology at [address] [address] 04/26/2024 3:30 PM EST Office Visit Radiation Oncology at [address] [address] Ofe Fonseca MD [facility] [place] [address] 04/28/2024 2:45 PM EST Scheduled View Only Radiation Oncology at [address] [address] 04/29/2024 3:00 PM EST Scheduled View Only Radiation Oncology at [address] [address] 05/02/2024 3:45 PM EST Scheduled View Only Radiation Oncology at [address] [address] 05/03/2024 1:45 PM EST Scheduled View Only Radiation Oncology at [address] [address] 05/03/2024 2:15 PM EST Office Visit Radiation Oncology at [address] [phone] Ofe Fonseca MD [facility] [place] [address] 05/05/2024 8:15 AM EST Scheduled View Only Radiation Oncology at [address] [address] 05/06/2024 12:30 PM EST Scheduled View Only Radiation Oncology at [address] [phone] 05/09/2024 3:00 PM EST Scheduled View Only Radiation Oncology at [address] [address] 05/10/2024 2:30 PM EST Scheduled View Only Radiation Oncology at [address] [phone] 05/10/2024 3:15 PM EST Office Visit Radiation Oncology at [address] [phone] Ofe Fonseca MD [facility] [place] [address] 05/11/2024 2:45 PM EST Scheduled View Only Radiation Oncology at [address] [phone] 06/03/2024 3:30 PM EST Appointment [place] [phone] Mira Hutchison, [facility] [place] [address] 06/23/2024 4:00 PM EST Appointment Mammography/[place] [phone] Miryam Feliciano MD [facility] [place] [address] 07/12/2024 8:00 AM EDT Laboratory Appointment Lab [address] [place] [phone] 07/12/2024 9:30 AM EDT Office Visit Nephrology [place] [phone] Sharmin Jean-Baptiste [facility] [place] [address] 07/13/2024 10:30 AM EDT Laboratory Appointment Lab [place] [facility] [place] On[place] [address] [place] [phone] 07/13/2024 11:30 AM EDT Office Visit Hematology [place] [address] Salena Alvares APRN [facility] [place] [address] 07/13/2024 12:45 PM EDT Appointment Hematology [place] [phone] documented as of this encounter Visit Diagnoses Not on filedocumented in this encounter Care Teams Lawn Mower Relationship Specialty Start [place] [address] PCP - General General Internal Medicine 08/04/22 documented as of this encounter
--- OUTSIDE RECORDS SUMMARY | 2024-04-22 00:22 | XMS_ITS | Encounter Summary ---
Author Organization [facility] [place] [address] Care Team Providers Care Milk Pickup Driver Name Role Phone Haylie Steward MD Primary Care Provider + [phone] Encounter Details Date Type Department Care Team (Latest Contact Info) Description 08/24/2023 2:30 PM EDT TH Visit (TeleHealth) [place] [address] Rolly Cook MD [facility] [place] [address] Irritable bowel syndrome with both constipation and diarrhea Social History Tobacco Use Types Packs/Day Years Used Date Smoking Tobacco: Never Smokeless Tobacco: Never Alcohol Use Standard Drinks/Week Comments Not Currently 0 (1 standard drink = 0.6 oz pur e alcohol) IPV Inpatient Questions Answer Date Recorded Does Anyone Try to Keep You From Having Contact with Others or Doing Things Outside Your Home? no 09/06/2022 Feels Threatened by Someone no 0510/2022 Feels Unsafe at Home or Work/School no 09/06/2022 Physical Signs of Abuse Present no 09/06/2022 Sex and Gender Information Value Date Recorded Sex Assigned at Female 02/25/2023 12:01 PM EDT Gender Identity Female 02/25/2023 12:01 PM EDT Sexual Orientation Straight 02/25/2023 12 :01 PM EDT documented as of this encounter Progress Notes * Rolly Cook MD - 08/24/2023 2:30 PM EDT Images from the original note were not included. [facility] TELEMEDICINE PRO[facility] Chief Complaint: Nataliya Morfin is a 48 y[address] of Dr[address] Whit santos. provider found here for follow-up Detailed history: She was last seen by me June 15, 2023 my thoughts at that time were as follows: Assessment/Plan: Ms. Morfin is a 48 y.o. patient with the following issues: #Chronic altered bowel pattern with associated abdominal discomfort and bloating consistent with IBS -diarrhea predominant (IBS-D). Noted constipation when taking iron supplements. Recent worsening of diarrhea with discontinuation of iron supplements and recent antibiotics. Possible element of antibiotic related diarrhea - should ensure rule out C.diff. Also noted recent increased stress with newjob. Symptoms were improving but worsened with bowel prep last week. Normal colonoscopy last week but pending biopsies. Finally noted new diagnosis of hyperparathyroidism but calcium levels normal (and generally expect constipation with elevated calcium). # DARRIUS - no overt GI bleeding. History of menorrhagia and irregular periods. Hgb dropped to 9.5 in September 2022. Ferritin low at 12 at that time. Currently stable and stopped iron supplements recently. #Recent onset of esophageal dysphagia - negative EGD for structural causes. #Chronic heartburn and regurgitation consistent with GERD. No symptoms currently. We discussed that complete symptom relief may not be a fully achievable goal for this chronic condition, but that improvement in quality of life, healthy days at work and family functions, and also general symptom improvement may be more reasonable goals. We discussed that treatments should be tried individually and for periods of at least 4-8 weeks to truly assess symptom response. I did my bestto answer questions to the fullest ability. We discussed that recommended treatments should be tried individually for at least three months at a time to truly assess for a meaningful response, or as long as tolerated, before changing therapy. Recommendations: We discussed GI functional/motility disorders in depth today including pathophysiology, expected course, impact and treatment categories We also discussed realistic goals (with emphasis on improved quality of life) and patient responsibilities. Please see the patient handout for recommendations on general treatment measures including lifestyle, dietary, and non-prescription pharmacologic options. I will arrange a comprehensive evaluation of the structure and function of the patient's GI tract including the following investigations +/- referrals: Pending biopsies for celiac and microscopic colitis Stool studies - O+P, C.difficile, fecal elastase MRE Esophageal high resolution manometry Hydrogen breath test Follow-up with PCP for ongoing surveillance of DARRIUS Consider capsule endoscopy if recurrent anemia and menorrhagia resolves Try taking regular scheduled imodium Consider bile acid binder if refractory diarrhea We discussed the safety profile alosetron (Lotronex) - risk of ischemic colitis Consider referral to GI Behavioral Health team to work on specific psychologic measures for functional disorders Consider referral to GI dietitian Interval history: Her MRI revealed a large fibroid and I put a referral into gynecology - seen already - no plan for surgery Current regime working well - 2 BM per day Current Regimen: Imodium 4 mg BID Psyllium Align Past Therapies: Alosetron (Lotronex) Review of systems: 14-point review of systems reviewed and negative except as above. Medications: Outpatient Medications Prior to Visit Medication Sig Dispense Refill calciTRIoL (Rocaltrol) 0.25 mcg capsule Take 1 capsule by mouth daily. 90 tablet 3 buPROPion XL (Wellbutrin XL) 150 mg XL [...] and 3 tabs PM. 150 tablet 2 clonazePAM (KlonoPIN) 0.5 mg disintegrating tablet Take 0.5 mg by mouth daily as needed. acetaminophen (Tylenol) 500 mg tablet Take 1,000 mg by mouth every 6 hours as needed for Pain. No facility-administered medications prior to visit. Allergies: is allergic to nsaids (non-steroidal anti-inflammatory drug), tolmetin, and ibuprofen. Past Medical History: has a past medical history of Bipolar 1 disorder, Chronic kidney disease (CKD) stage G3b/A1, moderately decreased glomerular filtration rate (GFR) between 30-44 mL/min/1.73 square meter and albuminuria creatinine ratio less than 30 mg/g, Hyperparathyroidism, Hypothyroid, and OCD (obsessive compulsive disorder). Past Surgical History: has a past surgical history that includes Toe Surgery; Eye surgery; Upper GiEndoscopy, Biopsy (99224) (N/A, 06/11/2023); and Colonoscopy, Biopsy (71020) (N/A, 06/11/2023). Family History: family history includes Arrhythmia in her mother; Prostate Cancer in her father. denies family history of colon cancer, IBD, or celiac disease in mother father or other family members Social History: reports that she has never smoked. She has never used smokeless tobacco. She reports that she does not currently use alcohol. She reports that she does not use drugs. No Physical Examination performed during this telemedicine visit Questionnaire: 08/23/2023 4:11 PM [facility] Healthy Day Score 2 Work Absenteeism 0 Work Presenteeism 0.01 Laboratory studies, imaging, and procedures (in summary of my review of prior records): Fecal elastase was normal Stool O&P was negative MRI Enterography wwo Contrast Order: [id number] Status: Final result Visible to patient: Yes (seen) Next appt: Today at 02:30 PM in Gastroenterology (Rolly Cook MD) Dx: Irritable bowel syndrome with both co... 0 Result Notes 1 Follow-up Encounter Details Reading Physician Reading Date Result Priority Wenceslao Barksdale MD [phone] 2922 06/26/2023 Rober Del Rosario MD [phone] 06/26/2023 Narrative & Impression EXAMINATION: MRI ENTEROGRAPHY WWO CONTRAST CLINICAL HISTORY: diarrhea - rule out crohn's K58.2, Mixed irritable bowel syndrome TECHNIQUE: MRI of the abdomen and pelvis prior to and following the intravenous administration of 12ml of Dotarem. 0.5mg glucagon was also administered. Breeza was administered as an oral contrast. COMPARISON: None FINDINGS: GI tract: No dilated small or large bowel, bowel wall thickening, or mesenteric inflammation. No mural edema or hyperenhancement. Liver: Normal signal. Multiple punctate T2 hyperintense nonenhancing lesions, consistent with cysts. Bile ducts: Nondilated. Gallbladder: Cholelithiasis. Normal caliber wall. No pericholecystic fluid. Pancreas: Normal. Spleen: Normal. Adrenals: Normal. Kidneys: Symmetric nephrograms. No hydronephrosis. Numerous bilateral T2 hyperintense, nonenhancing lesions consistent with cysts. There is a T1 hyperintense, T2 hypointense, nonenhancing left upper pole lesion consistent with a proteinaceous or hemorrhagic cyst. Lymph nodes: No lymphadenopathy. Reproductive structures: Enlarged fibroid uterus with the largest posterior subserosal fibroid measuring 9 cm in diameter and compressing/ displacing the rectum. Osseous structures: No marrow signal abnormality. IMPRESSION 1. No evidence of active inflammatory bowel disease. 2. Enlarged fibroid uterus including a 9 cm posterior fibroid compressing/displacing the rectum. This measures slightly larger compared to ultrasounds from 2022. Consider CAREER PLACEMENT SERVICES COUNSELOR consultation. 3. Numerous bilateral renal cysts consistent with history of lithium usage. HIGH-RESOLUTION ESOPHAGEAL MANOMETRY PROCEDURE NOTE Patient: Nataliya Morfin [address]: [address] [address] : 1975 Date of service: 06/22/2023 Indication: Dysphagia Procedure: The patient arrived after an overnight fast. After verbal consent, a Nallely motility catheter with 36 circumferential sensors on 1 cm spacing with impedance sensors was inserted transnasally after application of topical anesthesia to the nasal passage. The catheter was positioned so that at least 2distal sensors were in the stomach and 2 proximal sensors were located above the UES. A 3-5 minute a cclimation period was provided followed by 10 wet swallows of 5 cc of water while supine. Normal values while supine: Upper esophageal sphincter residual pressure: < 12 mmHg Upper esophageal sphincter relaxation duration: > 480 msec Distal contractile integral (DCI): > 450 and < 8,000 mmHg x cm x s Distal latency time: > 4.5 sec Integrated EGJ relaxation pressure (IRP): < 15 mmHg Normal EGJ resting pressure (respiratory mean): 15-34 mmHg Findings: - Upper Esophageal Sphincter: normal mean residual pressure and relaxation duration - Body: 0% of swallows failed. 0% of swallows had premature contractions with shortened distal latency time. The remaining 100% of swallows were peristaltic, includin% of swallows with hypercontractility, 10% of swallows with weak peristalsis, and 0% of swallows with large breaks (>5 cm) in the 20mmHg isocontour line. - Esophagogastric Junction: Midpoint located 42 cm from the nares, and proximal extent located at 40 cm. 1cm hiatal hernia present. Normal resting pressure (mean 43 mmHg) and normal IRP in 90% of swallows (median 12.4 mmHg). - Bolus transit: Liquid boluses cleared in 100% of swallows. - Multiple rapid swallows: Peristaltic reserve: intact (ratio of post-multiple rapid swallow DCI to median DCI on 10 supine swallows is >=1.0) Deglutitive inhibition: normal deglutitive inhibition (DCI <100 mmHg*s*cm) during the maneuver Integrated relaxation pressure: 0 mmHg (normal <12 mmHg) - Rapid drink challenge: Esophageal body contractility: normal deglutitive inhibition (DCI <100 mmHg*s*cm) during the maneuver Integrated relaxation pressure: 0 mmHg (normal <12 mmHg) Workers Compensation Legal Secretary swallow: Impressions based on Westminster Classification v4.0: No evidence of a clinically significant disorder of peristalsis or EGJ outflow obstruction. Biopsies from colonoscopy negative for microscopic colitis Recent Hgb normal and ferritin stable at 36 Assessment/Plan: Ms. Morfin is a 48 y.o. patient with the following issues: #Chronic altered bowel pattern with associated abdominal discomfort and bloating consistent with IBS -diarrhea predominant (IBS-D). Noted constipation when taking iron supplements. Recent worsening of diarrhea with discontinuation of iron supplements and recent antibiotics. Possible element of antibiotic related diarrhea - should ensure rule out C.diff. Also noted recent increased stress with newjob. Symptoms were improving but worsened with bowel prep last week. Normal colonoscopy last week with normal biopsies. Finally noted new diagnosis of hyperparathyroidism but calcium levels normal (and generally expect constipation with elevated calcium). # DARRIUS - no overt GI bleeding. History of menorrhagia and irregular periods. Hgb dropped to 9.5 in September 2022. Ferritin low at 12 at that time. Currently stable despite stopping iron supplements. #Esophageal dysphagia - negative EGD for structural causes and HREM normal. #Chronic heartburn and regurgitation consistent with GERD. No symptoms currently. Recommendations: We further discussed GI functional/motility disorders in depth today including pathophysiology, expected course, impact and treatment categories We also discussed realistic goals (with emphasis on improved quality of life) and patient responsibilities. Please see the patient handout for recommendations on general treatment measures including lifestyle, dietary, and non-prescription pharmacologic options. Can forego Hydrogen breath test and C.difficile testing as doing so well (of course noting that sheis on Imodium but I would not expect her diarrhea to be completely controlled with small doses of Imodium. Also noting that she is not having any fever or abdominal pain or bleeding which is all reassuring and goes against the possibility of infection) Follow-up with PCP for ongoing surveillance of DARRIUS Consider capsule endoscopy if recurrent anemia and menorrhagia resolves Continue regular scheduled imodium Consider bile acid binder such as colestid or cholestyramine if refractory diarrhea We discussed the safety profile alosetron (Lotronex) - risk of ischemic colitis Consider referral to GI Behavioral Health team to work on specific psychologic measures for functional disorders Consider referral to GI dietitian We have not scheduled further follow-up at our center at this time, as the GI issues have improved and can be managed locally following our recommendations. We will refer the patient back to PCP for continued local care management, based on the care plan provided above. If the problem returns or worsens in the future despite following all of these recommendations, please submit a new consult to our center for re-evaluation. The patient was located in [place] at the time of their visit. TIME SPENT WITH PATIENT Time spent reviewing records prior to this encounter on day of appointment: 5 minutes Time spent during encounter with patient including counselin minutes Time spent documenting encounter after office visit: 2 minutes Rolly Cook MD [facility] [place] [address] documented in this encounter Plan of Treatment Upcoming Encounters Date Type Department Care Team (Latest Contact Info) Description 04/22/2024 9:45 AM EST Scheduled View Only Radiation Oncology at [address] [phone] 04/25/2024 8:30 AM EST Scheduled View Only Radiation Oncology at [address] [phone] 04/26/2024 3:00 PM EST Scheduled View Only Radiation Oncology at [address] [phone] 04/26/2024 3:30 PM EST Office Visit Radiation Oncology at [address] [phone] Ofe Fonseca MD [facility] [place] [address] 04/28/2024 2:45 PM EST Scheduled View Only Radiation Oncology at [address] [address] 04/29/2024 3:00 PM EST Scheduled View Only Radiation Oncology at [address] [phone] 05/02/2024 3:45 PM EST Scheduled View Only Radiation Oncology at [address] [address] 05/03/2024 1:45 PM EST Scheduled View Only Radiation Oncology at [address] [address] 05/03/2024 2:15 PM EST Office Visit Radiation Oncology at [address] [phone] Ofe Fonseca MD [facility] [place] [address] 05/05/2024 8:15 AM EST Scheduled View Only Radiation Oncology at [address] [address] 05/06/2024 12:30 PM EST Scheduled View Only Radiation Oncology at [address] [address] 05/09/2024 3:00 PM EST Scheduled View Only Radiation Oncology at [address] [address] 05/10/2024 2:30 PM EST Scheduled View Only Radiation Oncology at [address] [address] 05/10/2024 3:15 PM EST Office Visit Radiation Oncology at [address] [address] Ofe Fonseca MD [facility] [address] 05/11/2024 2:45 PM EST Scheduled View Only Radiation Oncology at [address] [phone] 06/03/2024 3:30 PM EST Appointment Ultrasound at [place] [phone] Mira Hutchison [employer] [facility] [place] [address] 06/23/2024 4:00 PM EST Appointment Mammography/DXA at [address] Miryam Feliciano MD [facility] [place] [address] 07/12/2024 8:00 AM EDT Laboratory Appointment Lab [address] [place], [place] [phone] 07/12/2024 9:30 AM EDT Office Visit Nephrology Hypertension at [address] Sharmin Jean-Baptiste [facility] [place] [address] 07/13/2024 10:30 AM EDT Laboratory Appointment Lab at [facility] Hematology Oncology [address] [place], [place] [phone] 07/13/2024 11:30 AM EDT Office Visit H[place]ology [place] [address] Salena Alvares [facility] [place] [address] 07/13/2024 12:45 PM EDT Appointment Hematology and Oncology at [place] [phone] documented as of this encounter Visit Diagnoses Diagnosis Irritable bowel syndrome with both constipation and diarrhea documented in this encounter Care Teams Milk Pickup Driver Relationship Specialty Start Date [place] [address] PCP - General General Internal Medicine 08/04/22 documented as of this encounter
--- OUTSIDE RECORDS SUMMARY | 2024-04-22 00:22 | XMS_ITS | Encounter Summary ---
[place] [address] Care Team Providers Care Golf Player Assistant Name Role Phone Haylie Steward MD Primary Care Provider + [phone] Reason for Visit * Reason Comments Follow-up * Consultation (Routine) - Closed Specialty Diagnoses / Procedures Referred By Mirlande burroughs Referred To Contact Obstetrics and Gynecology Diagnoses Fibroid OPERATIONS ENGINEER Rolly Cook MD [facility] [place] [address] [facility] Coagulating Drying Supervisor [address] [place] [address] Referral ID Status Reason Start Date Expiration Date V isits Requested Visits Authorized [id number] Closed Consult, Test & Treat 06/29/2023 06/28/2024 1 1 Encounter Details Date Type Department Care Team (Late st Contact Info) Description 07/21/2023 10:20 AM EDT Office Visit Obstetrics [place] [address] [place] Garcia MD [facility] DR OBSTETRICS [place] [address] Perimenopausal; Uterine leiomyoma, unspecified location Social History Tobacco Use Types Packs/Day Years [...] Sign Reading Time Taken Comments Blood Pressure 137/69 07/21/2023 10:22 AM EDT Pulse 68 07/21/2023 10:22 AM EDT Temperature 36.3 ??C (97.3 ??F) 07/21/2023 10:22 AM E DT Respiratory Rate 14 07/21/2023 10:22 AM EDT Oxygen Saturation 100% 07/21/2023 10:22 AM EDT Inhaled Oxygen Concentration - - Weight - - Height - - Body Mass Index - - documented in this encounter Progress Notes * [place] Garcia MD - 07/21/2023 10:20 AM EDT Images from the original note were not included. Gynecology Follow Up Visit Subjective: NATALIYA MORFIN is a 48 y.o. G0. female with PMH significant for Stage 3 CKD (last Cr 1.16), IBS, anemia, trauma history, hypothyroidism, who presents to discuss AUB-M. Use to be monthly for a couple of days. Workup thus far includes: -- Pelvic US demonstrating multiple fibroids, largest 8cm in diameter with possible intracavitary involvement. Normal 7mm endometrium thickness. Ovaries grossly within normal limits -- TSH 1.68 -- 01/2023 Hgb 14.0 At her last visit, she was counseled on hormonal medical management which she declined. In February,she experienced one day of light bleeding; only 2 days of light bleeding in March. In general, her menses have been more irregular and starting to spread out. Her bleeding is not super heavy or unmanageable. Not sure if she has any discomfort from the fibroid. No pelvic pain , pressure, heaviness. She does have some urinary frequency. Gets up many times per night to urinate. 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 Patient unsure when last pap was, believes >5 years ago. She is not sexually active for many years. Objective: Patient Vitals for the past 24 hrs: Temp Pulse Resp BP SpO2 07/21/23 1022 36.3 ??C (97.3 ??F) 68 14 137/69 100 % Physical Examination: General appearance - well appearing, NAD Chest - no increased WOB Abdomen - soft, nontender, nondistended Extremities - minimal LE edema 03/18/2023 TVUS: ------- UTERUS: ------- Uterus: Visualized Position: Anteverted Size (cm) L: 9.7 W: 5.3 H: 10.3 Description: Multiple fibroids - Largest 2 measured. ------- MYOMAS: ------- Site L(cm) W(cm) D(cm) Location Posterior 7.9 8.1 6.5 Subserosal Posterior right 2.2 2.2 2.7 Intramural, displaces endometrium Blood Flow RI PI Comments ENDOMETRIUM: Endometrium: Normal appearance Thickness(mm): 6.8 RIGHT OVARY: Status: Limited visualization Size (cm) L: 2.6 W: 1.5 H: 1.0 Vol (ml): 2.0 LEFT OVARY: Status: Visualized Size (cm) L: 1.5 W: 1.4 H: 1.1 Vol (ml): 1.2 Morphology: Normal appearance IMPRESSION Please note exam was performed transabdominally as patient was unable to tolerate the endovaginal probe, which limits detailed assessment of the pelvic structures. 1. Enlarged fibroid uterus, largest fibroid seen posteriorly, subserosal in location measuring nearly 8 cm in maximal diameter. Other fibroids displace the endometrium, cannot definitively exclude intracavitary involvement on this exam. 2. Suboptimal assessment of the endometrium, measured thickness of approximately 7 mm is within normal limits for a menstruating woman. 3. Normal appearance of the left ovary. 4. Limited visualization of the right ovary, grossly unremarkable as visualized. Assessment/Plan: Nataliya Morfin is 48 y.o. G0 with history significant for OCD, bipolar disorder (follows with psychiatry), CKD Stage 3 (last Cr 1.16) who presents to discuss fibroid management. She is currently not having any symptoms from the fibroids, except maybe it is contributing to her urinary frequency. She prefers to avoid surgery if possible, which I support. I think with the amount of bleeding that she is describing over recent months, she does not need endometrial sampling at this time. We talked about needing to reach out if she has increase in her bleeding. She agrees with this plan. In regard to cervical cancer screening, I think if she has had HPV neg paps in the past and has notbeen sexually active in many years, it is probably ok to defer further pap testing. An alternative would be to have pt self-collect and HPV swab. She declines pap testing at this time. A total of 35 minutes was spent on the day of the visit for completion of this encounter, includingpre-charting time, patient time, and post service wrap up. (Established patient total visit time: 94855 - 20min, 14673 - 30 min, 10061 - 40 min; New patient total visit times: 46868 - 30 min, 86544 - 45 min, 48071 - 60 min) [place] Garcia MD Obstetrics and Gynecology 07/21/2023 documented in this encounter Plan of Treatment Upcoming Encounters Date Type Department Care Team (Latest Contact Info) Description 04/22/2024 9:45 AM EST Scheduled View Only Radiation Oncology at [address] [phone] 04/25/2024 8:30 AM EST Scheduled View Only Radiation Oncology at [address] [phone] 04/26/2024 3:00 PM EST Scheduled View Only Radiation Oncology at [address] [phone] 04/26/2024 3:30 PM EST Office Visit Radiation Oncology at [address] [address] Ofe Fonseca MD [facility] [place] [address] 04/28/2024 2:45 PM EST Scheduled View Only Radiation Oncology at [address] [phone] 04/29/2024 3:00 PM EST Scheduled View Only Radiation Oncology at [address] [phone] 05/02/2024 3:45 PM EST Scheduled View Only Radiation Oncology at [address] [phone] 05/03/2024 1:45 PM EST Scheduled View Only Radiation Oncology at [address] [address] 05/03/2024 2:15 PM EST Office Visit Radiation Oncology at [address] [phone] Ofe Fonseca MD [facility] [place] [address] 05/05/2024 8:15 AM EST Scheduled View Only Radiation Oncology at [address] [phone] 05/06/2024 12:30 PM EST Scheduled View Only Radiation Oncology at [address] [phone] 05/09/2024 3:00 PM EST Scheduled View Only Radiation Oncology at [address] [phone] 05/10/2024 2:30 PM EST Scheduled View Only Radiation Oncology at [address] [phone] 05/10/2024 3:15 PM EST Office Visit Radiation Oncology at [address] [address] Ofe Fonseca MD [facility] [place] [address] 05/11/2024 2:45 PM EST Scheduled View Only Radiation Oncology at [address] [address] 06/03/2024 3:30 PM EST Appointment Ultrasound at [place] [phone] Mira Hutchison STAFF DESIGN ENGINEER [facility] [place] [address] 06/23/2024 4:00 PM EST Appointment Mammography/DXA at [place] [phone] Miryam Feliciano MD [facility] [place] [address] 07/12/2024 8:00 AM EDT Laboratory Appointment Lab [address] [phone] 07/12/2024 9:30 AM EDT Office Visit Neph[place] [phone] Sharmin Jean-Baptiste [facility] [place] [address] 07/13/2024 10:30 AM EDT Laboratory Appointment Lab at [facility] Hematology Oncology [address] [place] [phone] 07/13/2024 11:30 AM EDT Office Visit Hematology [place] [address] Salena Alvares APRN [facility] [place] [address] 07/13/2024 12:45 PM EDT Appointment Hematology [place] [address] Scheduled Referrals Name Type Priority Associated Diagnoses Order Schedule Referral to Gynecologic Oncology Outpatient Referral Routine Fibroid Ordered: 06/29/2023 documented as of this encounter Visit Diagnoses Diagnosis Perimenopausal Symptomatic menopausal or female climacteric states Uterine leiomyoma, unspecified location documented in this encounter Care Teams Golf Player Assistant Relationship Specialty Start Date [place] [address] PCP - General General Internal Medicine 08/04/22 documented as of this encounter
--- OUTSIDE RECORDS SUMMARY | 2024-04-22 00:22 | XMS_ITS | Encounter Summary ---
[place] [address] Care Team Providers Care Culinary Instructor Name Role Phone Haylie Steward MD Primary Care Provider [phone] Encounter Details Date Type Department Care Team (Latest Contact Info) Description 07/28/2023 9:45 AM EDT Laboratory Appointment Lab [address] [phone] Stage 3a chronic kidney disease (CKD) Social History Tobacco Use Types Packs/Day Years [...] EST Scheduled View Only Radiation Oncology at [address] [phone] 04/25/2024 8:30 AM EST Scheduled View Only Radiation Oncology at [address] [phone] 04/26/2024 3:00 PM EST Scheduled View Only Radiation Oncology at [address] [phone] 04/26/2024 3:30 PM EST Office Visit Radiation Oncology at [address] [phone] Ofe Fonseca MD [facility] [place] [address] 04/28/2024 2:45 PM EST Scheduled View Only Radiation Oncology at [address] [phone] 04/29/2024 3:00 PM EST Scheduled View Only Radiation Oncology at [address] [phone] 05/02/2024 3:45 PM EST Scheduled View Only Radiation Oncology at [address] [phone] 05/03/2024 1:45 PM EST Scheduled View Only Radiation Oncology at [address] [phone] 05/03/2024 2:15 PM EST Office Visit Radiation Oncology at [address] [phone] Ofe Fonseca MD [facility] [place] [address] 05/05/2024 8:15 AM EST Scheduled View Only Radiation Oncology at [address] [address] 05/06/2024 12:30 PM EST Scheduled View Only Radiation Oncology at [address] [address] 05/09/2024 3:00 PM EST Scheduled View Only Radiation Oncology at [address] [address] 05/10/2024 2:30 PM EST Scheduled View Only Radiation Oncology at [address] [phone] 05/10/2024 3:15 PM EST Office Visit Radiation Oncology at [address] [phone] Ofe Fonseca MD [facility] [place] [address] 05/11/2024 2:45 PM EST Scheduled View Only Radiation Oncology at [address] [address] 06/03/2024 3:30 PM EST Appointment Ultrasound at [place] [phone] Mira Hutchison [facility] [place] [address] 06/23/2024 4:00 PM EST Appointment Mammography/DXA at [place] [phone] Miryam Feliciano MD [facility] [place] [place] [address] 07/12/2024 8:00 AM EDT Laboratory Appointment Lab [place] [phone] 07/12/2024 9:30 AM EDT Office Visit Nephrology Hypertension at [place] [phone] Sharmin Jean-Baptiste [facility] [address] 07/13/2024 10:30 AM EDT Laboratory Appointment Lab at [facility] Hematology Oncology [address] [place] [phone] 07/13/2024 11:30 AM EDT Office Visit Hematology [place] [phone] Salena Alvares APRN [facility] [place] [address] 07/13/2024 12:45 PM EDT Appointment Hematology [place] [phone] documented as of this encounter Procedures Procedure Name Priority Date/Time Associated Diagnosis Comments HC URINALYSIS ROUTINE Routine 07/28/2023 9:48 AM EDT Stage 3a chronic kidney disease (CKD) PROTEIN/CREATININE RATIO, URINE Routine 07/28/2023 9:48 AM EDT Stage 3a chronic kidney disease (CKD) PTH Routine 07/28/2023 9:47 AM EDT Stage 3a chronic kidney disease (CKD) HEMOGRAM Routine 07/28/2023 9:47 AM EDT Stage 3a chronic kidney disease (CKD) DIFFERENTIAL, AUTOMATED Routine 07/28/2023 9:47 AM EDT Stage 3a chronic kidney disease (CKD) IRON AND TIBC Routine 07/28/2023 9:47 AM EDT Stage 3a chronic kidney disease (CKD) VITAMIN D, 25-HYDROXY Routine 07/28/2023 9:47 AM EDT Stage 3a chronic kidney disease (CKD) CBC (WITH DIFF) Routine 07/28/2023 9:47 AM EDT Stage 3a chronic kidney disease (CKD) PHOSPHORUS Routine 07/28/2023 9:47 AM EDT Stage 3a chronic kidney disease (CKD) FERRITIN Routine 07/28/2023 9:47 AM EDT Stage 3a chronic kidney disease (CKD) ALBUMIN LEVEL Routine 07/28/2023 9:47 AM EDT Stage 3a chronic kidney disease (CKD) BASIC METABOLIC PANEL Routine 07/28/2023 9:47 AM EDT Stage 3a chronic kidney disease (CKD) documented in this encounter Results * _Urinalysis with microscopic (07/28/2023 9:48 AM EDT) Glucose, Urine Dipstick Negative Negative mg/dL [facility] Protein, Urine Dipstick Negative Negative mg/dL [facility] Bilirubin, Urine Dipstick Negative Negative mg/dL [facility] Comment: Clinical correlation required for positive Urine Bilirubin results as false positive may occur with some drugs and drug related products. If a false positive is suspected a serum total bilirubin should be considered if clinically indicated. Urobilinogen, Urine Dipstick Normal Normal mg/dL [facility] pH, Urn (dipstick) 6.5 5.0 - 8.0 [facility] Blood, Urine Dipstick Negative Negative mg/dL [facility] Ketone, Urine Dipstick Negative Negative mg/dL [facility] Nitrite, Urine Dipstick Negative Negative [facility] Leukocytes, Urine Dipstick Negative Negative [facility] Appearance, Urine Dipstick Clear Clear [facility] Specific [place] Urine Automated 1.005 1.005 - 1.030 [facility] Color, Urine Dipstick Yellow Yellow [facility] RBC, Urine 0 0 - 4 /HPF [facility] WBC, Urine 0 0 - 5 /HPF [facility] Squamous Epithelial Cells Raw Data, Urine 1 <=4 /HPF [facility] Urine 07/28/2023 9:48 AM EDT 07/28/2023 10:01 AM EDT Narrative Resulting Agency Comment Spec In Lab Sharmin Jean-Baptiste WILDLIFE PHOTOGRAPHER URINE ORDERABLES Performing Organization Address City/[facility]/ZIP Co de Phone Number [facility] [place] [address] * Protein/Creatinine Ratio, urine (07/28/2023 9:48 AM EDT) Creatinine, Urine 9 mg/dL [facility] Protein, Urine <6 0 - 12 mg/dL [facility] Protein / Creatinine Ratio, Urine <0.7 ratio [facility] Urine 07/28/2023 9:48 AM EDT 07/28/2023 10:01 AM EDT Narrative Resulting Agency Comment Spec In Lab Sharmin Jean-Baptiste WILDLIFE PHOTOGRAPHER URINE ORDERABLES Performing Organization Address [facility] Co de Phone Number [facility] [place] [address] * Differential, Automated (07/28/2023 9:47 AM EDT) Neutrophil % 61.5 % [facility] Neutrophil Absolute 3.60 1.70 - 6.10 x10(3)/[facility] Lymph % 27.4 % [facility] Lymphocytes Abs 1.6 0.9 - 3.2 x10(3)/[facility] Monocyte % 8.2 % [facility] Monocyte Abs 0.5 0.3 - 0.9 x10(3)/[facility] Eos % 2.1 % [facility] Eosinophils Abs 0.1 0.0 - 0.4 x10(3)/[facility] Basophil % 0.3 % [facility] Baso Absolute 0.0 0.0 - 0.1 x10(3)/[facility] Immature Gran % 0.50 % [facility] Comment: Immature granulocytes(IG's)percentage and absolute count will include metamyelocytes, myelocytes, and promyelocytes. Blood smears from CBCs yielding IG's will be scanned manually for concordance. If this scan disagrees with the automated IG or if promyelocytes are noted, a manual differential will be performed. Immature Gran Absolute 0.03 0.00 - 0.04 x10(3)/[facility] Blood 07/28/2023 9:47 AM EDT 07/28/2023 10:06 AM EDT Narrative Resulting Agency Comment Spec In Lab Sharmin Jean-Baptiste WILDLIFE PHOTOGRAPHER HEMATOLOGY ORDERA BLES [facility] [place] [address] * (ABNORMAL) Hemogram (07/28/2023 9:47 AM EDT) White Blood Cell 5.8 4.0 - 9.5 x10(3)/ L [facility] Red Blood Cell 4.74 4.00 - 5.21 x10(6)/mc L [facility] Hemoglobin 14.2 11.7 - 15.5 g/dL [facility] Hematocrit 45.2 35.7 - 45.8 % [facility] Mean Cell Volume 95.4(H) 82.6 - 94.4 fL [facility] Mean Cell Hemoglobin 30.0 27.1 - 32.0 pg [facility] Mean Cell Hemoglobin Concentration 31.4(L) 31.7 - 35.0 g/dL [facility] Platelet 210 145 - 357 x10(3)/ L [facility] RDW Standard Deviation 56.6(H) 37.0 - 46.0 fL [facility] RDW coefficient of variation 15.9(H) 11.5 - 14.1 % [facility] Mean Platelet Volume 9.8 7.6 - 12.9 fL [facility] NRBC% auto 0.0 % [facility] NRBC Absolute 0.000 0.000 - 0.000 x10(3)/ L [facility] Blood 07/28/2023 9:47 AM EDT 07/28/2023 10:06 AM EDT Narrative Resulting Agency Comment Spec In Lab Sharmin Jean-Baptiste WILDLIFE PHOTOGRAPHER HEMATOLOGY ORDERA BLES Performing Organization Address [facility]/ZIP Co de Phone Number [facility] [place] [address] * Albumin Level (07/28/2023 9:47 AM EDT) Albumin 4.3 3.2 - 5.2 g/dL [facility] Blood 07/28/2023 9:47 AM EDT 07/28/2023 10:06 AM EDT Narrative Resulting Agency Comment Spec In Lab Sharmin Jean-Baptiste WILDLIFE PHOTOGRAPHER CHEMISTRY ORDERAB LES Performing Organization Address [facility] Co de Phone Number [facility] [place] [address] * (ABNORMAL) Basic Metabolic Panel (non-fasting) (07/28/2023 9:47 AM EDT) Glucose 72 65 - 199 mg/dL [facility] Comment:Diabetes: >=200 mg/d L plus symptoms Blood Urea Nitrogen 31(H) 8 - 18 mg/dL [facility] Creatinine 1.06 0.70 - 1.20 mg/dL [facility] Sodium 141 135 - 145 mmol/L [facility] Potassium 4.5 3.5 - 5.0 mmol/L [facility] Comment: Please note: ??Patients with WBC >100,000 may have falsely elevated Potassium levels. ??For accurate Potassium quantification in these patients send serum separator tube (gold top) for subsequent determinations. ??Contact the Clinical Chemistry Laboratory if there are any questions. Chloride 108(H) 98 - 107 mmol/L [facility] Carbon Dioxide 25 22 - 31 mmol/L [facility] Anion Gap 8 5 - 15 mmol/L [facility] Calcium 9.9 8.5 - 10.5 mg/dL [facility] Est Glomerular Filtration Rate 64 >=60 mL/min/1. 73 m?? [facility] Comment: This patient's estimated GFR [...] Comment Spec In Lab Sharmin L Estiven WILDLIFE PHOTOGRAPHER CHEMISTRY ORDERAB LES Performing Organization Address City/[facility]/ZIP Co de Phone Number [facility] [place] [address] * Ferritin (07/28/2023 9:47 AM EDT) Ferritin 36 6 - 175 ng/mL [facility] Comment: Please note that as of 04/08/2023, the reference intervals for Ferritin have been updated. Blood 07/28/2023 9:47 AM EDT 07/28/2023 10:06 AM EDT Narrative Resulting Agency Comment Spec In Lab Sharmin L Estiven WILDLIFE PHOTOGRAPHER CHEMISTRY ORDERAB LES [facility] [place] [address] * Iron and TIBC (07/28/2023 9:47 AM EDT) Iron 94 30 - 150 mcg/dL [facility] TIBC 363 250 - 450 mcg/dL [facility] Iron Saturation 26 20 - 50 % [facility] Blood 07/28/2023 9:47 AM EDT 07/28/2023 10:06 AM EDT Narrative Resulting Agency Comment Spec In Lab Sharmin Jean-Baptiste WILDLIFE PHOTOGRAPHER CHEMISTRY ORDERAB LES Performing Organization Address City/[facility]/ZIP Co de Phone Number [facility] [place] [address] * Phosphorus (07/28/2023 9:47 AM EDT) Phosphorus 3.5 2.5 - 4.5 mg/dL [facility] Blood 07/28/2023 9:47 AM EDT 07/28/2023 10:06 AM EDT Narrative Resulting Agency Comment Spec In Lab Sharmingilberto Jean-Baptiste WILDLIFE PHOTOGRAPHER CHEMISTRY ORDERAB LES Performing Organization Address City/[facility]/ZIP Co de Phone Number [facility] [place] [address] * (ABNORMAL) PTH (07/28/2023 9:47 AM EDT) Parathyroid Hormone 121(H) 15 - 65 pg/mL [facility] Blood 07/28/2023 9:47 AM EDT 07/28/2023 10:06 AM EDT Narrative Resulting Agency Comment Spec In Lab Sharmin Jean-Baptiste WILDLIFE PHOTOGRAPHER CHEMISTRY ORDERAB LES Performing Organization Address City/[facility]/ZIP Co de Phone Number [facility] [place] [address] * Vitamin D, 25-Hydroxy (07/28/2023 9:47 AM EDT) Vitamin D Total 25 OH 41 21 - 100 ng/mL [facility] Vit D Interp Sufficient [facility] Blood 07/28/2023 9:47 AM EDT 07/28/2023 10:06 AM EDT Narrative Resulting Agency Comment Spec In Lab Sharmin Jean-Baptiste WILDLIFE PHOTOGRAPHER CHEMISTRY ORDERAB LES [facility] [place] [address] documented in this encounter Visit Diagnoses Diagnosis Stage 3a chronic kidney disease (CKD) documented in this encounter Care Teams Culinary Instructor Relationship Specialty Start Date [place] [address] PCP - General General Internal Medicine 08/04/22 documented as of this encounter
--- OUTSIDE RECORDS SUMMARY | 2024-04-22 00:22 | XMS_ITS | Encounter Summary ---
Author Organization [facility] [place] [address] Care Team Providers Care Embedded Systems Designer Name Role Phone Haylie Steward MD Primary Care Provider [phone] Encounter Details Date Type Department Care Team (Late st Contact Info) Description 01/14/2024 Interpretation Only [address] [address] Haylie Steward MD [address] [place] [address] Social History Tobacco Use Types Packs/Day Years [...] Scheduled View Only Radiation Oncology at [address] [address] 04/25/2024 8:30 AM EST Scheduled View Only Radiation Oncology at [address] [address] 04/26/2024 3:00 PM EST Scheduled View Only Radiation Oncology at [address] [address] 04/26/2024 3:30 PM EST Office Visit Radiation Oncology at [address] [address] Ofe Fonseca MD [facility] RADIATION [place] [address] 04/28/2024 2:45 PM EST Scheduled View Only Radiation Oncology at [address] [address] 04/29/2024 3:00 PM EST Scheduled View Only Radiation Oncology at [address] [address] 05/02/2024 3:45 PM EST Scheduled View Only Radiation Oncology at [address] [address] 05/03/2024 1:45 PM EST Scheduled View Only Radiation Oncology at [address] [address] 05/03/2024 2:15 PM EST Office Visit Radiation Oncology at [address] [address] Ofe Fonseca MD [facility] [place] [address] 05/05/2024 8:15 AM EST Scheduled View Only Radiation Oncology at [address] [address] 05/06/2024 12:30 PM EST Scheduled View Only Radiation Oncology at [address] [address] 05/09/2024 3:00 PM EST Scheduled View Only Radiation Oncology at [address] [address] 05/10/2024 2:30 PM EST Scheduled View Only Radiation Oncology at [address] [address] 05/10/2024 3:15 PM EST Office Visit Radiation Oncology at [address] [address] Ofe Fonseca MD [facility] [place] [address] 05/11/2024 2:45 PM EST Scheduled View Only Radiation Oncology at [address] [address] 06/03/2024 3:30 PM EST Appointment Ultrasound at [place] [phone] Mira Hutchison TECHNICIAN INVENTORY SPECIALIST [facility] [address] 06/23/2024 4:00 PM EST Appointment Mammography/DXA at [place] [phone] Miryam Feliciano MD [facility] [place] [address] 07/12/2024 8:00 AM EDT Laboratory Appointment Lab [place] [phone] 07/12/2024 9:30 AM EDT Office Visit Nephrology Hypertension at [place] [phone] Sharmin Jean-Baptiste TECHNICIAN INVENTORY SPECIALIST [facility] [place] [address] 07/13/2024 10:30 AM EDT Laboratory Appointment Lab at [facility] Hematology Oncology [address] [place] [phone] 07/13/2024 11:30 AM EDT Office Visit Hematology [place] [address] Salena Alvares APRN [facility] DR MEDICAL ONCOLOGY [place] [phone] 07/13/2024 12:45 PM EDT Appointment Hematology [place] [address] documented as of this encounter Procedures Procedure Name Priority Date/Time Associated Diagnosis Comments MAMMO SCREENING CAD BILATERAL (CH) Routine 01/14/2024 8:39 AM EDT documented in this encounter Results * MAMMO SCREENING CAD BILATERAL (CH) (01/14/2024 8:39 AM EDT) PT CLASS O RAD ADMITDTTM [id number] RAD PT RAD MD INFO [id number]^Steward^ Haylie RAD EXAM DESC MADDSCCH^MG Mammo Digital [...] who have questions please contact the health health care sanitary technician that requested your imaging first. ? [address] ??[address] Narrative 01/14/2024 11:24 AM EDT EXAMINATION: MG [...] patients who have questions please contactthe health health care sanitary technician that [place] [address] Haylie Steward MD PACS IMAGES documented in this encounter Visit Diagnoses Not on filedocumented in this encounter Care Teams Embedded Systems Designer Relationship Specialty Start Date End Date Haylie Steward MD [facility] [place] [address] PCP - General General Internal Medicine 08/04/22 documented as of this encounter
--- OUTSIDE RECORDS SUMMARY | 2024-04-22 00:22 | XMS_ITS | Encounter Summary ---
[place] [address] Care Team Providers Care Atm Manager Name Role Phone Haylie Steward MD Primary Care Provider [phone] Encounter Details Date Type Department Care Team (Latest Contact Info) Description 01/05/2024 10:44 AM EDT - 01/05/2024 11:59 PM EDT Hospital Encounter [place]ematology [place] [address] Hyperparathyroidism Discharge Disposition: Home Social History Tobacco Use Types Packs/Day Years Used Date Smoking Tobacco: Never Smokeless Tobacco: Never Alcohol Use Standard Drinks/Week Comments Not Currently 0 (1 standard drink = 0.6 oz pur e alcohol) [facility] Questions Answer Date Recorded Does [...] mouth every morning. 90 tablet 10/20/2023 01/26/2024 pilocarpine (Salagen) 5 mg tablet Take 1 tablet by mouth 3 times daily. 90 tablet 2 10/20/2023 01/12/2024 levothyroxine (Synthroid) 75 mcg tablet Take 1 tablet by mouth every morning. 90 tablet 10/20/2023 01/26/2024 divalproex ER (Depakote ER) 250 mg ER 24 hr tablet 2 tabs AM and 3 tabs PM. 150 tablet 2 09/15/2023 01/12/2024 documented as of this encounter Plan of Treatment Upcoming Encounters Date Type Department Care Team (Latest Contact Info) Description 04/22/2024 9:45 AM EST Scheduled View Only Radiation Oncology at [address] [address] 04/25/2024 8:30 AM EST Scheduled View Only Radiation Oncology at [address] [address] 04/26/2024 3:00 PM EST Scheduled View Only Radiation Oncology at [address] [address] 04/26/2024 3:30 PM EST Office Visit Radiation Oncology at [address] [address] Ofe Fonseca MD [facility] [place] [address] 04/28/2024 2:45 PM EST Scheduled View Only Radiation Oncology at [address] [address] 04/29/2024 3:00 PM EST Scheduled View Only Radiation Oncology at [address] [address] 05/02/2024 3:45 PM EST Scheduled View Only Radiation Oncology at [address] [address] 05/03/2024 1:45 PM EST Scheduled View Only Radiation Oncology at [address] [address] 05/03/2024 2:15 PM EST Office Visit Radiation Oncology at [address] [address] Ofe Fonseca MD [facility] RADI[place] [address] 05/05/2024 8:15 AM EST Scheduled View Only Radiation Oncology at [address] [address] 05/06/2024 12:30 PM EST Scheduled View Only Radiation Oncology at [address] [address] 05/09/2024 3:00 PM EST Scheduled View Only Radiation Oncology at [address] [address] 05/10/2024 2:30 PM EST Scheduled View Only Radiation Oncology at [address] [address] 05/10/2024 3:15 PM EST Office Visit Radiation Oncology at [address] [address] Ofe Fonseca MD [facility] RADIATION [place] [address] 05/11/2024 2:45 PM EST Scheduled View Only Radiation Oncology at [address] [address] 06/03/2024 3:30 PM EST [place] [phone] Mira Hutchison [facility] [place] [address] 06/23/2024 4:00 PM EST Appointment Mammography/DXA at [place] [address] Miryam Feliciano MD [facility] [place] [address] 07/12/2024 8:00 AM EDT Laboratory Appointment Lab [address] [place] [address] 07/12/2024 9:30 AM EDT Office Visit Nephrology Hypertension at [place] [address] Sharmin Jean-Baptiste [facility] [place] [address] 07/13/2024 10:30 AM EDT Laboratory Appointment Lab at [facility] Hematology Oncology [address] [place] [address] 07/13/2024 11:30 AM EDT Office Visit Hematology [place] [address] Salena Alvares [facility] [place] [address] 07/13/2024 12:45 PM EDT Appointment Hematology [place] [address] documented as of this encounter Visit Diagnoses Diagnosis Hyperparathyroidism Hyperparathyroidism, unspecified documented in this encounter Care Teams Atm Manager Relationship Specialty Start Date [place] [address] PCP - General General Internal Medicine 08/04/22 documented as of this encounter
--- OUTSIDE RECORDS SUMMARY | 2024-04-22 00:22 | XMS_ITS | Encounter Summary ---
Author Organization [facility] [place] [address] Care Team Providers Care Director Operating Room Name Role Phone Haylie Steward MD Primary Care Provider [phone] Encounter Details Date Type Department Care Team (Latest Contact Info) Description 10/26/2023 Travel Social History Tobacco Use Types Packs/Day [...] Scheduled View Only Radiation Oncology at [address] [address] 04/25/2024 8:30 AM EST Scheduled View Only Radiation Oncology at [address] [address] 04/26/2024 3:00 PM EST Scheduled View Only Radiation Oncology at [address] [address] 04/26/2024 3:30 PM EST Office Visit Radiation Oncology at [address] [address] Ofe Fonseca MD [facility] [place] [address] 04/28/2024 2:45 PM EST Scheduled View Only Radiation Oncology at [address] [address] 04/29/2024 3:00 PM EST Scheduled View Only Radiation Oncology at [address] [address] 05/02/2024 3:45 PM EST Scheduled View Only Radiation Oncology at [address] [address] 05/03/2024 1:45 PM EST Scheduled View Only Radiation Oncology at [address] [address] 05/03/2024 2:15 PM EST Office Visit Radiation Oncology at [address] [address] Ofe Fonseca MD [facility] [place] [address] 05/05/2024 8:15 AM EST Scheduled View Only Radiation Oncology at [address] [address] 05/06/2024 12:30 PM EST Scheduled View Only Radiation Oncology at [address] [address] 05/09/2024 3:00 PM EST Scheduled View Only Radiation Oncology at [address] [address] 05/10/2024 2:30 PM EST Scheduled View Only Radiation Oncology at [address] [address] 05/10/2024 3:15 PM EST Office Visit Radiation Oncology at [address] [phone] Ofe Fonseca MD [facility] [place] [address] 05/11/2024 2:45 PM EST Scheduled View Only Radiation Oncology at [address] [phone] 06/03/2024 3:30 PM EST Appointment [place] [address] Mira Hutchison, [facility] [place] [address] 06/23/2024 4:00 PM EST Appointment Mammography/[place] [phone] Miryam Feliciano MD [facility] [place] [address] 07/12/2024 8:00 AM EDT Laboratory Appointment Lab [address] [place] [phone] 07/12/2024 9:30 AM EDT Office Visit Nephrology [place] [phone] Sharmin Jean-Baptiste [facility] [place] [address] 07/13/2024 10:30 AM EDT Laboratory Appointment Lab at [facility] [place] Oncology [address] [place] [phone] 07/13/2024 11:30 AM EDT Office Visit Hematology [place] [address] Salena Alvares APRN [facility] [place] [address] 07/13/2024 12:45 PM EDT Appointment Hematology [place] [address] documented as of this encounter Visit Diagnoses Not on filedocumented in this encounter Care Teams Director Operating Room Relationship Specialty Start Date [place] [address] PCP - General General Internal Medicine 08/04/22 documented as of this encounter
--- OUTSIDE RECORDS SUMMARY | 2024-04-22 00:23 | XMS_ITS | Encounter Summary ---
Author Organization [facility] [place] [address] Care Team Providers Care Dishwasher Name Role Phone Haylie Steward MD Primary Care Provider [phone] Encounter Details Date Type Department Care Team (Late st Contact Info) Description 06/10/2023 Telephone [place] [phone] Dahiana Johnston, RN Social History Tobacco Use Types Packs/Day Years Used Date Smoking Tobacco: Never Smokeless Tobacco: Never Alcohol Use Standard Drinks/Week Comments Not Currently 0 (1 standard drink = 0.6 oz pur e alcohol) [facility] Inpatient Questions Answer Date Recorded Does [...] encounter Miscellaneous Notes * Telephone Encounter - Dahiana Johnston, RN - 06/10/2023 8:16 AM EST Copied from CRM #[id number]. Topic: Specialty Dept CRMs - Orders >> Jun 08, 2023 11:58 AM Rosemarie Rapp wrote: Orders Request Specialist: Relationship (if other than patient-full name): self Type of Request: [x] Send orders Type/Name of Order: Labs If Labs and Imaging list name of specific test(s): 24 hour urine Date of Lab/Imaging/Testing Appt: Thursday morning 06/14/23 Date of Provider Appt: Angelina Heredia MD Appt Type with Provider: FUV Patient Requesting to Have Orders Sent to Facility Outside of [facility]: Yes If Yes, Name of Facility:[facility] Address: [address] [place] [address] Phone #: Fax #: [phone] Orders for 24 hr urine Ca & Creatinine have been faxed to [facility] with OK transmission report. Pt made aware via portal message. documented in this encounter Plan of Treatment Upcoming Encounters Date Type Department Care Team (Latest Contact Info) Description 04/22/2024 9:45 AM EST Scheduled View Only Radiation Oncology at [address] [address] 04/25/2024 8:30 AM EST Scheduled View Only Radiation Oncology at [address] [address] 04/26/2024 3:00 PM EST Scheduled View Only Radiation Oncology at [address] [address] 04/26/2024 3:30 PM EST Office Visit Radiation Oncology at [address] [address] Ofe Fonseca MD [facility] [place] [address] 04/28/2024 2:45 PM EST Scheduled View Only Radiation Oncology at [address] [address] 04/29/2024 3:00 PM EST Scheduled View Only Radiation Oncology at [address] [address] 05/02/2024 3:45 PM EST Scheduled View Only Radiation Oncology at [address] [address] 05/03/2024 1:45 PM EST Scheduled View Only Radiation Oncology at [address] [address] 05/03/2024 2:15 PM EST Office Visit Radiation Oncology at [address] [address] Ofe Fonseca MD [facility] [place] [address] 05/05/2024 8:15 AM EST Scheduled View Only Radiation Oncology at [address] [address] 05/06/2024 12:30 PM EST Scheduled View Only Radiation Oncology at [address] [address] 05/09/2024 3:00 PM EST Scheduled View Only Radiation Oncology at [address] [address] 05/10/2024 2:30 PM EST Scheduled View Only Radiation Oncology at [address] [address] 05/10/2024 3:15 PM EST Office Visit Radiation Oncology at [address] [address] Ofe Fonseca MD [facility] [place] [address] 05/11/2024 2:45 PM EST Scheduled View Only Radiation Oncology at [address] [address] 06/03/2024 3:30 PM EST Appointment [place] [address] Mira Hutchison APRN [facility] [place] [address] 06/23/2024 4:00 PM EST Appointment Mammography/[place] [address] Miryam Feliciano MD [facility] [place] [address] 07/12/2024 8:00 AM EDT Laboratory Appointment Lab [address] [place], [place] [phone] 07/12/2024 9:30 AM EDT Office Visit Nephrology [place] [address] Sharmin Jean-Baptiste [facility] [place] [address] 07/13/2024 10:30 AM EDT Laboratory Appointment Lab at [facility] Hematology Oncology [address] [place], [place] [phone] 07/13/2024 11:30 AM EDT Office Visit Hematology and Oncology at [place] [phone] Salena Alvares, [facility] [place] [address] 07/13/2024 12:45 PM EDT Appointment Hematology and Oncology at [place] [phone] documented as of this encounter Visit Diagnoses Not on filedocumented in this encounter Care Teams Dishwasher Relationship Specialty Start [place] [address] PCP - General General Internal Medicine 08/04/22 documented as of this encounter
--- OUTSIDE RECORDS SUMMARY | 2024-04-22 00:23 | XMS_ITS | Encounter Summary ---
[place] [address] Care Team Providers Care Sales Management Trainee Name Role Phone Haylie Steward MD Primary Care Provider + [phone] Reason for Visit * Diagnostic Test (Routine) - Closed Specialty Diagnoses / Procedures Referred By Contac t Referred To Contact Gastroenterology Diagnoses Dysphagia, unspecified type HREM - dysphagia Procedures High Resolution Esophageal Manometry PRG UNLISTED DIAGNOSTIC GASTROENTEROLOGY PROCEDURE PRG ESOPHAGEAL MOTILITY STUDY PRG GERD TST W NASAL IMPEDENCE ELECTROD Rolly Cook MD [facility] [place] [address] [facility] [address] [address] Referral ID Status Reason Start Date Expiration Date V isits Requested Visits Authorized [id number] Closed Test Only 06/15/2023 06/14/2024 1 1 Encounter Details Date Type Department Care Team (Latest Contact Info) Description 06/22/2023 9:00 AM EST Procedure [place] [address] Dysphagia, unspecified type Social History Tobacco Use Types Packs/Day Years Used Date Smoking Tobacco: Never Smokeless Tobacco: Never Alcohol Use Standard Drinks/Week Comments Not Currently 0 (1 standard drink = 0.6 oz pur e alcohol) [facility] Inpatient Questions Answer Date Recorded Does Anyone [...] as of this encounter Progress Notes * Kristie Noe RN - 06/22/2023 9:00 AM EST A description of the esophageal manometry procedure was provided to the patient. All questions wereanswered and the patient verbalized understanding. The HREM catheter was placed via the left naris without difficulty. The esophageal manometry procedure was performed and the catheter was removed. The patient tolerated the procedure well. * Rolly Cook MD - 06/22/2023 9:00 AM EST Images from the original note were not included. HIGH-RESOLUTION ESOPHAGEAL MANOMETRY PROCEDURE NOTE Patient: Nataliya Morfni Address: [address] [address] : 1975 Date of service: 06/22/2023 Indication: [...] relaxation pressure: 0 mmHg (normal <12 mmHg) Erp Programmer swallow: Impressions based on Weatherford Classification v4.0: No evidence of a clinically significant disorder of peristalsis or EGJ outflow obstruction. *These findings assume that mechanical obstruction has been ruled out. Rolly Cook MD, FRCPC Section of Gastroenterology and Hepatology [facility] [place] [address] V: [phone] F: [phone] CC/EC: [place] [address] documented in this encounter Plan of Treatment Upcoming Encounters Date Type Department Care Team (Latest Contact Info) Description 04/22/2024 9:45 AM EST Scheduled View Only Radiation Oncology at [address] [phone] 04/25/2024 8:30 AM EST Scheduled View Only Radiation Oncology at [address] [address] 04/26/2024 3:00 PM EST Scheduled View Only Radiation Oncology at [address] [address] 04/26/2024 3:30 PM EST Office Visit Radiation Oncology at [address] [address] Ofe Fonseca MD [facility] [place] [address] 04/28/2024 2:45 PM EST Scheduled View Only Radiation Oncology at [address] [address] 04/29/2024 3:00 PM EST Scheduled View Only Radiation Oncology at [address] [address] 05/02/2024 3:45 PM EST Scheduled View Only Radiation Oncology at [address] [address] 05/03/2024 1:45 PM EST Scheduled View Only Radiation Oncology at [address] [address] 05/03/2024 2:15 PM EST Office Visit Radiation Oncology at [address] [address] Ofe Fonseca MD [facility] [place] [address] 05/05/2024 8:15 AM EST Scheduled View Only Radiation Oncology at [address] [address] 05/06/2024 12:30 PM EST Scheduled View Only Radiation Oncology at [address] [address] 05/09/2024 3:00 PM EST Scheduled View Only Radiation Oncology at [address] [address] 05/10/2024 2:30 PM EST Scheduled View Only Radiation Oncology at [address] [address] 05/10/2024 3:15 PM EST Office Visit Radiation Oncology at [address] [address] Ofe Fonseca MD [facility] [place] [address] 05/11/2024 2:45 PM EST Scheduled View Only Radiation Oncology at [address] [address] 06/03/2024 3:30 PM EST Appointment Ultrasound at [place] [phone] Mira Hutchison [facility] [place] [address] 06/23/2024 4:00 PM EST Appointment Mammography/DXA at [place] [phone] Miryam Feliciano MD [facility] [place] [address] 07/12/2024 8:00 AM EDT Laboratory Appointment Lab [address] [place] [phone] 07/12/2024 9:30 AM EDT Office Visit Nephrology Hypertension at [place] [phone] Sharmin Jean-Baptiste [facility] [place] [address] 07/13/2024 10:30 AM EDT Laboratory Appointment Lab at [facility] Hematology Oncology [address] [place] [phone] 07/13/2024 11:30 AM EDT Office Visit Hematology [place] [phone] Salena Alvares APRN [facility] [place] [address] 07/13/2024 12:45 PM EDT Appointment Hematology [place] [phone] documented as of this encounter Visit Diagnoses Diagnosis Dysphagia, unspecified type documented in this encounter Care Teams Sales Management Trainee Relationship Specialty Start Date [place] [address] PCP - General General Internal Medicine 08/04/22 documented as of this encounter
--- OUTSIDE RECORDS SUMMARY | 2024-04-22 00:23 | XMS_ITS | Encounter Summary ---
[place] [address] Care Team Providers Care Compliance Spec Name Role Phone Haylie Steward MD Primary Care Provider + [phone] Reason for Referral * Consultation (Routine) - Closed Specialty Diagnoses / Procedures Referred By Contac t Referred To Contact Obstetrics and Gynecology Diagnoses Fibroid TRAFFIC RATE COMPUTER Rolly Cook MD [facility] [place] [address] [facility] [employer] [address] [place] [address] Referral ID Status Reason Start Date Expiration Date V isits Requested Visits Authorized [id number] Closed Consult, Test & Treat 06/29/2023 06/28/2024 1 1 Encounter Details Date Type Department Care Team (Late st Contact Info) Description 06/29/2023 Telephone [place] [address] Rolly Cook MD [facility] [place] [address] Social History Tobacco Use Types Packs/Day Years Used Date Smoking Tobacco: Never Smokeless Tobacco: Never Alcohol Use Standard Drinks/Week Comments Not Currently 0 (1 standard drink = 0.6 oz pur e alcohol) [facility] Inpatient Questions Answer Date Recorded Does [...] encounter Miscellaneous Notes * Telephone Encounter - Rolly Cook MD - 06/29/2023 1:15 PM EST Called regarding enlarging fibroid on MR enterography. She is aware of this finding and already contacted the nursing staff. Left message that I will put in referral as suggested by the radiologist. Rolly Cook MD, FRCPC Section of Gastroenterology and Hepatology [facility] [place] [address] [address] V: [phone] F: [phone] documented in this encounter Plan of Treatment Upcoming Encounters Date Type Department Care Team (Latest Contact Info) Description 04/22/2024 9:45 AM EST Scheduled View Only Radiation Oncology at [address] [phone] 04/25/2024 8:30 AM EST Scheduled View Only Radiation Oncology at [address] [phone] 04/26/2024 3:00 PM EST Scheduled View Only Radiation Oncology at [address] [address] 04/26/2024 3:30 PM EST Office Visit Radiation Oncology at [address] [phone] Ofe Fonseca MD [facility] RADIATION [place] [address] 04/28/2024 2:45 PM EST Scheduled View Only Radiation Oncology at [address] [address] 04/29/2024 3:00 PM EST Scheduled View Only Radiation Oncology at [address] [address] 05/02/2024 3:45 PM EST Scheduled View Only Radiation Oncology at [address] [address] 05/03/2024 1:45 PM EST Scheduled View Only Radiation Oncology at [address] [address] 05/03/2024 2:15 PM EST Office Visit Radiation Oncology at [address] [address] Ofe Fonseca MD [facility] [place] [address] 05/05/2024 8:15 AM EST Scheduled View Only Radiation Oncology at [address] [address] 05/06/2024 12:30 PM EST Scheduled View Only Radiation Oncology at [address] [address] 05/09/2024 3:00 PM EST Scheduled View Only Radiation Oncology at [address] [address] 05/10/2024 2:30 PM EST Scheduled View Only Radiation Oncology at [address] [address] 05/10/2024 3:15 PM EST Office Visit Radiation Oncology at [address] [phone] Ofe Fonseca MD [facility] RADIATION [place] [address] 05/11/2024 2:45 PM EST Scheduled View Only Radiation Oncology at [address] [address] 06/03/2024 3:30 PM EST Appointment Ultrasound at [place] [phone] Mira Hutchison REFINING STILL OPERATOR [facility] [place] [address] 06/23/2024 4:00 PM EST Appointment Mammography/DXA at [address] Miryam Feliciano MD [facility] [place] [address] 07/12/2024 8:00 AM EDT Laboratory Appointment Lab [address] [place] [address] 07/12/2024 9:30 AM EDT Office Visit Nephrology Hypertension at [address] Sharmin Jean-Baptiste [facility] [place] [address] 07/13/2024 10:30 AM EDT Laboratory Appointment Lab at [facility] Hematology Oncology [address] [place], [place] [phone] 07/13/2024 11:30 AM EDT Office Visit Hematology and Oncology at [place] [phone] Salena Alvares [facility] [place] [address] 07/13/2024 12:45 PM EDT Appointment Hematology and Oncology at [place] [phone] Scheduled Referrals Name Type Priority Associated Diagnoses Order Schedule Referral to Gynecologic Oncology Outpatient Referral Routine Fibroid Ordered: 06/29/2023 documented as of this encounter Visit Diagnoses Diagnosis Fibroid Leiomyoma of uterus, unspecified documented in this encounter Care Teams Compliance Spec Relationship Specialty Start Date [place] [address] PCP - General General Internal Medicine 08/04/22 documented as of this encounter
--- OUTSIDE RECORDS SUMMARY | 2024-04-22 00:23 | XMS_ITS | Encounter Summary ---
Author Organization [facility] [place] [address] Care Team Providers Care Hotel Or Motel Receptionist Name Role Phone Haylie Steward MD Primary Care Provider [phone] Encounter Details Date Type Department Care Team (Latest Contact Info) Description 06/08/2023 Travel Social History Tobacco Use Types Packs/Day [...] Scheduled View Only Radiation Oncology at [address] [address] 04/25/2024 8:30 AM EST Scheduled View Only Radiation Oncology at [address] [address] 04/26/2024 3:00 PM EST Scheduled View Only Radiation Oncology at [address] [address] 04/26/2024 3:30 PM EST Office Visit Radiation Oncology at [address] [address] Ofe Fonseca MD [facility] [place] [address] 04/28/2024 2:45 PM EST Scheduled View Only Radiation Oncology at [address] [address] 04/29/2024 3:00 PM EST Scheduled View Only Radiation Oncology at [address] [address] 05/02/2024 3:45 PM EST Scheduled View Only Radiation Oncology at [address] [address] 05/03/2024 1:45 PM EST Scheduled View Only Radiation Oncology at [address] [address] 05/03/2024 2:15 PM EST Office Visit Radiation Oncology at [address] [address] Ofe Fonseca MD [facility] [place] [address] 05/05/2024 8:15 AM EST Scheduled View Only Radiation Oncology at [address] [address] 05/06/2024 12:30 PM EST Scheduled View Only Radiation Oncology at [address] [address] 05/09/2024 3:00 PM EST Scheduled View Only Radiation Oncology at [address] [address] 05/10/2024 2:30 PM EST Scheduled View Only Radiation Oncology at [address] [address] 05/10/2024 3:15 PM EST Office Visit Radiation Oncology at [address] [phone] Ofe Fonseca MD [facility] [place] [address] 05/11/2024 2:45 PM EST Scheduled View Only Radiation Oncology at [address] [phone] 06/03/2024 3:30 PM EST Appointment [place] [phone] Mira Hutchison, [facility] [place] [address] 06/23/2024 4:00 PM EST Appointment Mammography/[place] [phone] Miryam Feliciano MD [facility] [place] [address] 07/12/2024 8:00 AM EDT Laboratory Appointment Lab [address] [place] [phone] 07/12/2024 9:30 AM EDT Office Visit Nephrology [place] [phone] Sharmin Jean-Baptiste [facility] [place] [address] 07/13/2024 10:30 AM EDT Laboratory Appointment Lab at [facility] Hematology Oncology [address] [place] [phone] 07/13/2024 11:30 AM EDT Office Visit Hematology [place] [address] Salena Alvares APRN [facility] [place] [address] 07/13/2024 12:45 PM EDT Appointment Hematology [place] [phone] documented as of this encounter Visit Diagnoses Not on filedocumented in this encounter Care Teams Hotel Or Motel Receptionist Relationship Specialty Start Date [place] [address] PCP - General General Internal Medicine 08/04/22 documented as of this encounter
--- OUTSIDE RECORDS SUMMARY | 2024-04-22 00:23 | XMS_ITS | Encounter Summary ---
Author Organization Formerly [facility] Address [facility] [place] [address] Care Team Providers Care Remedial Masseur Name Role Phone Haylie Steward MD Primary Care Provider [phone] Encounter Details Date Type Department Care Team (Latest Contact Info) Description 06/11/2023 1:19 PM EST - 06/11/2023 5:34 PM EST Hospital En[place] [address] Jack Page MD [facility] [place] [address] Discharge Disposition: Home Social History Tobacco Use Types Packs/Day Years Used Date Smoking Tobacco: Never Smokeless Tobacco: Never Alcohol Use Standard Drinks/Week Comments Not Currently 0 (1 standard drink = 0.6 oz pur e alcohol) [facility] Inpatient Questions Answer Date Recorded Does Anyone [...] Sign Reading Time Taken Comments Blood Pressure 125/71 06/11/2023 5:10 PM EST Pulse 64 06/11/2023 4:15 PM EST Temperature 36.5 ??C (97.7 ??F) 06/11/2023 1:59 PM ES T Respiratory Rate 18 06/11/2023 5:10 PM EST Oxygen Saturation 100% 06/11/2023 5:10 PM EST Inhaled Oxygen Concentration - - Weight - - Height - - Body Mass Index - - documented in this encounter Discharge Instructions * Discharge Instructions* Jenelle Pickett RN - 06/11/2023 4:34 PM EST Upper Endoscopy (EGD) and Colonoscopy: What to Expect at Home Your Recovery After you have an EGD and colonoscopy, you will stay at the clinic for 1 to 2 hours until the medicines wear off. Then you can go home. But you will need to arrange for a ride. Your doctor will tell you when you can eat and do your other usual activities. Your doctor will talk to you about when you will need your next colonoscopy. Your doctor can help you decide how often you need to be checked. This will depend on the results of your test and your risk for colorectal cancer. You may have a sore throat for a day or two after the test. After the test, you may be bloated or have gas pains. You may need to pass gas. If a biopsy was done or a polyp was removed, you may have streaks of blood in your stool (feces) for a few days. Problems such as heavy rectal bleeding may notoccur until several weeks after the test. This isn't common. But it can happen after polyps are arie stefano. This care sheet gives you a general idea about how long it will take for you to recover. But each person recovers at a different pace. Follow the steps below to get better as quickly as possible. How can you care for yourself at home? Activity Rest when you feel tired. You can do your normal activities when it feels okay to do so. Diet Follow your doctor's directions for eating. Unless your doctor has told you not to, drink plenty of fluids. This helps to replace the fluids that were lost during the colon prep. Do not drink alcohol. Medicines If you have a sore throat the day after the test, use an [id number]-[id number] spray or lozenges to numbyour throat. Warm salt water gargles can also help the discomfort. Your doctor will tell you if and when you can restart your medicines. He or she will also give you instructions about taking any new medicines. If you take blood thinners, such as warfarin (Coumadin), clopidogrel (Plavix), or aspirin, be sure to talk to your doctor. He or she will tell you if and when to start taking those medicines again. Make sure that you understand exactly what your doctor wants you to do. If polyps were removed or a biopsy was done during the test, your doctor may tell you not to take aspirin or other anti-inflammatory medicines for a few days. These include ibuprofen (Advil, Motrin) and naproxen (Aleve). Other instructions for patients who received sedation: You may have received medications during the procedure which effect your judgement and reaction time. For your safety, do not drive or operate machinery until the medicine wears off and you can think clearly. Your doctor may tell you not to drive or operate machinery until the day after your test. Do not sign legal documents or make major decisions until the medicine wears off and you can think clearly. The anesthesia can make it hard for you to fully understand what you are agreeing to. Be careful on stairs and when standing up quickly as you may be unsteady on your feet. IV site: Slight redness or tenderness is normal. You can use a warm compress if you would like. If tenderness and/or redness increase or if foul drainage occurs, please contact your doctor. Please call [phone] before 8pm Mon-Fri with problems, questions, or concerns. If you call after 8pm or on weekends, call the Hospital at [phone] and ask for the Candy Separator Enrobing filler leaf cutter long and the clean room operator will contact that person for you. When should you call for help? Call 325 anytime you think you may need emergency care. For example, call if: You passed out (lost consciousness). You pass maroon or bloody stools. You have trouble breathing. Call your doctor now or seek immediate medical care if: You have pain that does not get better after you take pain medicine. You are sick to your stomach or cannot drink fluids. You have new or worse belly pain. You have blood in your stools. You have a fever. You cannot pass stools or gas. Your throat still hurts after a day or two. Your throat still hurts after a day or two. Watch closely for changes in your health, and be sure to contact your doctor if you have any problems. Where can you learn more? You can view health information on myinfoQ, your personal patient account. Log in or sign up today. Content Version: 12.2 ?? [id number] [employer]. Care instructions adapted under license by [facility]. If you have questions about a medical condition or this instruction, always ask your healthcare professional. [employer] disclaims any warranty or liability for your use of this information. documented in this encounter Medications at Time of Discharge Medication Sig Dispensed Refills Start Date End Date cariprazine (Vraylar) 1.5 mg capsule 03/23/2021 clonazePAM (KlonoPIN) 0.5 mg disintegrating tablet Take 0.5 mg by mouth daily as needed. acetaminophen (Tylenol) 500 mg tablet Take 1,000 mg by mouth every 6 hours as needed for Pain. lithium 300 mg capsule 04/11/202104/19 cholecalciferol, Vitamin D3, 25 mcg (1,000 unit) Capsule Take 1,000 Units by mouth daily. 07/28/2023 buPROPion XL (Wellbutrin XL) 150 mg XL 24 hr tablet Take 1 tablet by mouth every morning. 90 tablet 04/15/2023 07/15/2023 divalproex ER (Depakote ER) 250 mg ER 24 hr tablet 2 tabs BID. 120 tablet 02 04/15/2023 06/29/2023 levothyroxine (Synthroid) 75 mcg tablet Take 1 tablet by mouth every morning. 90 tablet 04/15/2023 07/15/2023 pilocarpine (Salagen) 5 mg tablet Take 1 tablet by mouth 3 times daily. 90 tablet 2 04/15/2023 07/15/2023 Alosetron (Lotronex) 0.5 mg tablet Take 0.5 mg by mouth 2 times daily. 07/24/2022 07/07/2023 documented as of this encounter H&P Notes * Iggy Bauer MD - 06/11/2023 3:05 PM EST Gastroenterology and Hepatology Pre-Procedure History and Physical Exam Procedure: EGD / colo Indication: now-resolved DARRIUS, hx of abnormal uterine bleeding, hx of IBS-D, formerly on alosetron since stopped (05/22), having more loose stools since then, recent course of azithromycin for respiratory infection Patient Active Problem List Diagnosis Code Stage 3a chronic kidney disease (CKD) N18.31 Hyperparathyroidism E21.3 Anemia D64.9 [place] intoxication, accidental or unintentional, initial encounter T56.891A Abnormal antibody titer R76.0 Benign neoplasm of skin D23.9 Bipolar affective, mixed F31.60 Chronic pansinusitis J32.4 Chronic tonsillitis J35.01 H/O toe surgery Z98.890 Herpes zoster without complication B02.9 Hypothyroidism E03.9 Irritable bowel syndrome K58.9 White coat syndrome without diagnosis of hypertension R03.0 EXAM: HEENT: Airway examined, oropharynx clear Mallampati Score: per anesthesia LUNGS: Clear to auscultation HEART: Regular rate and rhythm, normal S1, S2 ABDOMEN: Normal bowel sounds, soft, non tender, non distended A/P: Proceed with the planned endoscopic procedure. ASA 3 - Patient with moderate systemic disease with functional limitations Sedation Plan: anesthesia Risks and benefits of the procedure explained to the patient. Consent form signed and included in the patient's chart. Iggy Bauer MD Advanced Endoscopy Fellow Gastroenterology & Hepatology documented in this encounter Plan of Treatment Upcoming Encounters Date Type Department Care Team (Latest Contact Info) Description 04/22/2024 9:45 AM EST Scheduled View Only Radiation Oncology at [address] [phone] 04/25/2024 8:30 AM EST Scheduled View Only Radiation Oncology at [address] [phone] 04/26/2024 3:00 PM EST Scheduled View Only Radiation Oncology at [address] [phone] 04/26/2024 3:30 PM EST Office Visit Radiation Oncology at [address] [phone] Ofe Fonseca MD [facility] [place] [address] 04/28/2024 2:45 PM EST Scheduled View Only Radiation Oncology at [address] [phone] 04/29/2024 3:00 PM EST Scheduled View Only Radiation Oncology at [address] [phone] 05/02/2024 3:45 PM EST Scheduled View Only Radiation Oncology at [address] [phone] 05/03/2024 1:45 PM EST Scheduled View Only Radiation Oncology at [address] [phone] 05/03/2024 2:15 PM EST Office Visit Radiation Oncology at [address] [phone] Ofe Fonseca MD [facility] [place] [address] 05/05/2024 8:15 AM EST Scheduled View Only Radiation Oncology at [address] [phone] 05/06/2024 12:30 PM EST Scheduled View Only Radiation Oncology at [address] [phone] 05/09/2024 3:00 PM EST Scheduled View Only Radiation Oncology at [address] [phone] 05/10/2024 2:30 PM EST Scheduled View Only Radiation Oncology at [address] [phone] 05/10/2024 3:15 PM EST Office Visit Radiation Oncology at [address] [phone] Ofe Fonseca MD [facility] [place] [address] 05/11/2024 2:45 PM EST Scheduled View Only Radiation Oncology at [address] [phone] 06/03/2024 3:30 PM EST Appointment Ultrasound at [place] [phone] Mira Hutchison [facility] [place] [address] 06/23/2024 4:00 PM EST Appointment Mammography/DXA at [place] [phone] Miryam Feliciano MD [facility] [place] [address] 07/12/2024 8:00 AM EDT Laboratory Appointment Lab [address] [place] [phone] 07/12/2024 9:30 AM EDT Office Visit Nephrology Hypertension at [place] [phone] Sharmin Jean-Baptiste [facility] [address] 07/13/2024 10:30 AM EDT Laboratory Appointment Lab at [facility] Hematology Oncology [address] [place] [phone] 07/13/2024 11:30 AM EDT Office Visit Hematology [place] [phone] Salena Alvares [facility] [place] [address] 07/13/2024 12:45 PM EDT Appointment Hematology and Oncology at [facility] [place] [address] documented as of this encounter Procedures Procedure Name Priority Date/Time Associated Diagnosis Comments SPECIMEN TO PATHOLOGY Routine 06/11/2023 4:05 PM EST SPECIMEN TO PATHOLOGY Routine 06/11/2023 3:51 PM EST SPECIMEN TO PATHOLOGY Routine 06/11/2023 3:51 PM EST SURGICAL PATHOLOGY REPORT Routine 06/11/2023 3:45 PM EST Colonoscopy, Biopsy ([id number]) 06/11/2023 3:27 PM EST Iron deficiency anemia, unspecified iron deficiency anemia type Upper Gi Endoscopy, Biopsy ([id number]) 06/11/2023 3:27 PM EST Iron deficiency anemia, unspecified iron deficiency anemia type UPPER GI ENDOSCOPY Routine 06/11/2023 3: 11 PM EST COLONOSCOPY Routine 06/11/2023 3:10 PM EST documented in this encounter Results * Specimen to Pathology (06/11/2023 4:05 PM EST) AP Specimen 06/11/2023 4:05 PM EST 06/11/2023 4:05 PM EST Narrative [facility] - 06/11/2023 4:05 PM EST Specimen requisition ordered. ??Separate Pathology report to follow Jack Page MD PATHOLOGY/CYTOLOGY O PADMINI [facility] [place] [address] * Specimen to Pathology (06/11/2023 3:51 PM EST) AP Specimen 06/11/2023 3:51 PM EST 06/11/2023 3:51 PM EST Narrative [facility] - 06/11/2023 3:51 PM EST Specimen requisition ordered. ??Separate Pathology report to follow Iggy Bauer MD PATHOLOGY/CYTOLOGY ORDERABLES Performing Organization Address [facility] [place] [address] * Specimen to Pathology (06/11/2023 3:51 PM EST) AP Specimen 06/11/2023 3:51 PM EST 06/11/2023 3:51 PM EST Narrative [facility] - 06/11/2023 3:51 PM EST Specimen requisition ordered. ??Separate Pathology report to follow Iggy Bauer MD PATHOLOGY/CYTOLOGY ORDERABLES Performing Organization Address [facility] [place] [address] * Surgical Pathology Report (06/11/2023 3:45 PM EST) Final Diagnosis [id number] ? Location: 4T; EA06; A The signing pathologist has (i) examined the relevant preparation(s) for the specimen(s) and (ii) rendered or confirmed the diagnosis(es). . ?Surgical Pathology DIAGNOSIS A - Duodenum biopsies. ??R/O celiac disease, biopsy (Multiple): - Duodenal mucosa within normal limits including preserved villous architecture. B - Gastric biopsies. ??R/O H. pylori, biopsy (Multiple): - Gastric antral type mucosa with mild reactive epithelial change. - Gastric body type mucosa within normal limits. - No h. pylori like microorganisms seen. C - Non targeted colon biopsies. R/O microscopic colitis, biopsy (Multiple) ?: - Colonic mucosa within normal limits. CR-PX Electronically signed by: ?Andrez NÚÑEZ, Sil Verified: ??06/17/2023 14:46 ??Pathologist Performed at: ??[facility], [place] [address] Real Estate Teacher: Eileen Singleton MD, [facility], ??CLIA Certificate: [id number] SPECIMEN(S) SUBMITTED A - duodenum biopsies. ??R/O celiac disease, biopsy (Multiple) B - gastric biopsies. ??R/O H. pylori, biopsy (Multiple) C - non targeted colon biopsies. R/O microscopic colitis, biopsy (Multiple) CLINICAL INFORMATION History of DARRIUS, diarrhea SPECIMEN PROCESSING A - Labeled/Fixative: Duodenum biopsies rule out celiac disease, formalin. Quantity/Size: Four, ranging from 0.5 to 0.6 cm. Tissue Description: Soft, pink tissues. Sections/Processi ng: Submitted in toto ??in 1 cassette labeled A1. B - Labeled/Fixative: Gastric biopsies rule out H. pylori, formalin. Quantity/Size: Six, ranging from 0.4 to 0.7 cm. Tissue Description: Soft, ruiz-pink tissues. Sections/Processi ng: Submitted in toto ??in 2 cassettes labeled B1-B2. C - Labeled/Fixative: Nontargeted colon biopsies, formalin. Quantity/Size: Multiple, ranging from 0.3 to 0.5 cm. Tissue Description: Soft, ruiz-pink tissues. Sections/Processi ng: Submitted in toto ??in 2 cassettes labeled C1-C2. ??sdy 06/17/2023 2:46 PM EST [facility] GI Biopsy 06/11/2023 3:45 PM EST 06/11/2023 3:45 PM EST GI Biopsy 06/11/2023 3:45 PM EST 06/11/2023 3:45 PM EST GI Biopsy 06/11/2023 3:45 PM EST 06/11/2023 3:45 PM EST Iggy Bauer MD PATHOLOGY/CYTOLOGY ORDERABLES [facility] [place] [address] [facility] [place] [address] * UPPER GI ENDOSCOPY (06/11/2023 3:11 PM EST) UPPER GI ENDOSCOPY [facility] Endoscopy Procedure Date: 06/11/2023 3:11 PM ? Patient Name: Nataliya Morfin ? Date of : 1975 ? Age: 48 ? Order #: [id number] ? Instrument Name: [id number] ? Procedure: ? Upper GI endoscopy Indications: ? Iron deficiency anemia Providers: ? Jack Page MD, Iggy Mason ? Marce Bauer, Ольга Warner ? Rolly Gurrola MD: ?Haylie Steward MD Medicines: ? Monitored Anesthesia Care Complications: ? [...] the ? physician, the nurse, the ? director of surgery and the holter scanning technician. The ? procedure was verified in [...] care under ? the supervision of a JEWEL SUPERVISOR was ? determined to be medically ? [...] cancer, and adverse medication ? reactions. The Endoscope was ? introduced through the mouth, and ? advanced to the third part of ? duodenum The upper GI endoscopy was ? accomplished without difficulty. ? The patient tolerated the procedure ? well. ? Findings: ? The Z-line was regular and was found 36 cm from the ? incisors. ? The esophagus was normal. ? The stomach was normal. Biopsies were taken with a ? cold forceps for Helicobacter pylori testing. ? The examined duodenum was normal. Biopsies for ? histology were taken with a cold forceps for ? evaluation of celiac disease. ? Moderate Sedation: ? See anesthesia notes. Impression: ?- Normal endoscopy without obvious ? upper GI source of chronic blood ? loss. ? - Gastric and duodenal biopsies ? obtained given history of iron ? deficiency anemia. Recommendation: ?- Await pathology results. ? - Proceed to colonoscopy. ? Attending Participation: ? I was present and participated during the entire ? procedure, including non-guevara portions. ? Jack Page MD 06/11/2023 3:47:35 PM This report has been signed electronically. Number of Addenda: 0 Note Initiated On: 06/11/2023 3:11 PM PROVATION 06/11/2023 3:11 PM EST Haylie Steward MD GENERAL SURGICAL ORD ERABLES PROVATION * COLONOSCOPY (06/11/2023 3:10 PM EST) COLONOSCOPY [facility] Endoscopy Procedure Date: 06/11/2023 3:10 PM ? Patient Name: Nataliya Morfin ? Date of : 1975 ? Age: 48 ? Order #: [id number] ? Instrument Name: [id number] ? Procedure: ? Colonoscopy Indications: ? Chronic diarrhea, Iron deficiency ? anemia, prior normal colo 2014 ? (including non-targeted colon ? biopsies) Providers: ? Jack Page MD, Iggy Mason ? Ольга Bauer, Marce ? Rolly Bermeo Referring MD: ?Haylie Steward MD, Lyssa Bland. ? [place] Medicines: ? Monitored Anesthesia Care Complications: ? [...] the ? physician, the nurse, the ? director of surgery and the holter scanning technician. The ? procedure was verified in [...] care under ? the supervision of a JEWEL SUPERVISOR was ? determined to be medically ? [...] preparation was evaluated ? using the BBPS ([place] Bowel ? Preparation Scale) with scores of: [...] Steward MD GENERAL SURGICAL ORD ERABLES PROVATION documented in this encounter Visit Diagnoses Not on filedocumented in this encounter Administered Medications Inactive Administered Medications - up to 3 most recent administrations Medication Order MAR Action Action Date Dose Rate Site lactated ringers infusion 100 mL/hr, Intravenous, CONTINUOUS, Starting on Yaneth 06/11/23 at 1415, Until Yaneth 06/11/23 at 1722, Endoscopy (Day of Procedure) New Bag 06/11/2023 3:20 PM EST New Bag 06/11/2023 2:08 PM EST 100 mL/hr 100 mL/hr documented in this encounter Active and Recently Administered Medications Times are shown in EST. Continuous Medication Order 06/09/2023 06/10/2023 06/11/2023 lactated ringers infusion (CANCELED) 100 mL/hr, Intravenous, CONTINUOUS, Starting on Yaneth 06/11/23 at 1415, Until Yaneth 06/11/23 at 1722, Endoscopy (Day of Procedure) 1408 (New Bag - Prov ider: Alison Howell RN)1519 (Paused - Provider: Fernandez Martino CRNA - Comment: Switch to gravity)1520 (New Bag - Provider: Fernandez Martino CRNA)1550 (Canceled Entry - Provider: Fernandez Martino CRNA - Comment: Switch to gravity)1551 (Anesthesia Volume Adjustment - Provider: Fernandez Martino CRNA)1614 (Stopped - Provider: Fernandez Martino CRNA) documented in this encounter Care Teams Remedial Masseur Relationship Specialty Start Date End [place] [address] PCP - General General Internal Medicine 08/04/22 documented as of this encounter
--- OUTSIDE RECORDS SUMMARY | 2024-04-22 00:23 | XMS_ITS | Encounter Summary ---
[place] [address] Care Team Providers Care Photovoltaic Technician Name Role Phone Haylie Steward MD Primary Care Provider + [phone] Encounter Details Date Type Department Care Team (Late st Contact Info) Description 06/17/2023 Telephone [place] [phone] Dahiana Johnston, RN Social History Tobacco Use [...] Telephone Encounter - Dahiana Johnston, RN - 06/17/2023 9:08 AM EST Copied from [facility] #[id number]. Topic: Specialty Dept CRMs - Generic Call >> Jun 17, 2023 8:45 AM Elin Rowley wrote: Specialist: Angela Heredia MD Relationship (if other than patient-full name): self Reason for Call: Patient had a 07/[address] Heredia and wants to know if she can do her 24 hour urine this Thursday or does it need to be done closer to the appointment. Please call to advise Per Dr Heredia's JEOVANNY note plan; At this point, suggest that we obtain DEXA imaging that includes the radius and also obtain a 24 hour urine calcium/creatinine. Her renal function is improving. I would have her follow up in severalmonths for reassessment and plan to repeat labs again at that time, to see if they continue to improve. Call to pt to LVM advising pt to see the answer to her question in a [employer] message. documented in this encounter Plan of Treatment Upcoming Encounters Date Type Department Care Team (Latest Contact Info) Description 04/22/2024 9:45 AM EST Scheduled View Only Radiation Oncology at [address] [phone] 04/25/2024 8:30 AM EST Scheduled View Only Radiation Oncology at [address] [address] 04/26/2024 3:00 PM EST Scheduled View Only Radiation Oncology at [address] [address] 04/26/2024 3:30 PM EST Office Visit Radiation Oncology at [address] [address] Ofe Fonseca MD [facility] [place] [address] 04/28/2024 2:45 PM EST Scheduled View Only Radiation Oncology at [address] [address] 04/29/2024 3:00 PM EST Scheduled View Only Radiation Oncology at [address] [address] 05/02/2024 3:45 PM EST Scheduled View Only Radiation Oncology at [address] [address] 05/03/2024 1:45 PM EST Scheduled View Only Radiation Oncology at [address] [address] 05/03/2024 2:15 PM EST Office Visit Radiation Oncology at [address] [address] Ofe Fonseca MD [facility] [place] [address] 05/05/2024 8:15 AM EST Scheduled View Only Radiation Oncology at [address] [address] 05/06/2024 12:30 PM EST Scheduled View Only Radiation Oncology at [address] [address] 05/09/2024 3:00 PM EST Scheduled View Only Radiation Oncology at [address] [address] 05/10/2024 2:30 PM EST Scheduled View Only Radiation Oncology at [address] [address] 05/10/2024 3:15 PM EST Office Visit Radiation Oncology at [address] [address] Ofe Fonseca MD [facility] [place] [address] 05/11/2024 2:45 PM EST Scheduled View Only Radiation Oncology at [address] [address] 06/03/2024 3:30 PM EST [place] [address] Mira Hutchison APRN [facility] [place] [address] 06/23/2024 4:00 PM EST Appointment Mammography/DXA at [place] [phone] Miryam Feliciano MD [facility] [place] [address] 07/12/2024 8:00 AM EDT Laboratory Appointment Lab [address] [phone] 07/12/2024 9:30 AM EDT Office Visit Nephrology Hypertension at [place] [phone] Sharmin Jean-Baptiste, [facility] [place] [address] 07/13/2024 10:30 AM EDT Laboratory Appointment Lab at [facility] Hematology Oncology [address] [place] [phone] 07/13/2024 11:30 AM EDT Office Visit Hematology and Oncology at [place] [phone] Salena Alvares, [facility] [place] [address] 07/13/2024 12:45 PM EDT Appointment Hematology [place] [phone] documented as of this encounter Visit Diagnoses Not on filedocumented in this encounter Additional Health Concerns Infection Onset Date Last Indicated Resolved Time Rule Out C. difficile 06/18/2023 06/18/20232023 2:04 PM EST documented as of this encounter Care Teams Photovoltaic Technician Relationship Specialty Start Date End [place] [address] PCP - General General Internal Medicine 08/04/22 documented as of this encounter
--- OUTSIDE RECORDS SUMMARY | 2024-04-22 00:23 | XMS_ITS | Encounter Summary ---
Author Organization [facility] [place] [address] Care Team Providers Care Industrial Relations Analyst Name Role Phone Haylie Steward MD Primary Care Provider [phone] Encounter Details Date Type Department Care Team (Latest Contact Info) Description 06/18/2023 12:44 PM EST - 06/18/2023 11:59 PM EST Hospital [place] [phone] Irritable bowel syndrome with both constipation and diarrhea Discharge Disposition: Home Social History Tobacco Use Types Packs/Day Years Used Date Smoking Tobacco: Never Smokeless Tobacco: Never Alcohol Use Standard Drinks/Week Comments Not Currently 0 (1 standard drink = 0.6 oz pur e alcohol) [facility] Inpatient Questions Answer Date Recorded Does [...] 07/24/2022 07/07/2023 documented as of this encounter Plan of Treatment Upcoming Encounters Date Type Department Care Team (Latest Contact Info) Description 04/22/2024 9:45 AM EST Scheduled View Only Radiation Oncology at [address] [address] 04/25/2024 8:30 AM EST Scheduled View Only Radiation Oncology at [address] [address] 04/26/2024 3:00 PM EST Scheduled View Only Radiation Oncology at [address] [address] 04/26/2024 3:30 PM EST Office Visit Radiation Oncology at [address] [phone] Ofe Fonseca MD [facility] [place] [address] 04/28/2024 2:45 PM EST Scheduled View Only Radiation Oncology at [address] [address] 04/29/2024 3:00 PM EST Scheduled View Only Radiation Oncology at [address] [address] 05/02/2024 3:45 PM EST Scheduled View Only Radiation Oncology at [address] [address] 05/03/2024 1:45 PM EST Scheduled View Only Radiation Oncology at [address] [address] 05/03/2024 2:15 PM EST Office Visit Radiation Oncology at [address] [address] Ofe Fonseca MD [facility] [address] 05/05/2024 8:15 AM EST Scheduled View Only Radiation Oncology at [address] [address] 05/06/2024 12:30 PM EST Scheduled View Only Radiation Oncology at [address] [address] 05/09/2024 3:00 PM EST Scheduled View Only Radiation Oncology at [address] [address] 05/10/2024 2:30 PM EST Scheduled View Only Radiation Oncology at [address] [phone] 05/10/2024 3:15 PM EST Office Visit Radiation Oncology at [address] [address] Ofe Fonseca MD [facility] [address] [place] [address] 05/11/2024 2:45 PM EST Scheduled View Only Radiation Oncology at [address] [address] 06/03/2024 3:30 PM EST Appointment Ultrasound at [place] [phone] Mira Hutchison, [facility] [place] [address] 06/23/2024 4:00 PM EST Appointment Mammography/[place] [phone] Miryam Feliciano MD [facility] [place] [address] 07/12/2024 8:00 AM EDT Laboratory Appointment Lab [address] [place] [address] 07/12/2024 9:30 AM EDT Office Visit [place] [phone] Sharmin Jean-Baptiste, [facility] [place] [address] 07/13/2024 10:30 AM EDT Laboratory Appointment Lab at [facility] Hematology Oncology [address] [place], [place] [phone] 07/13/2024 11:30 AM EDT Office Visit Hematology and Oncology at [place] [phone] Salena Alvares [facility] [place] [address] 07/13/2024 12:45 PM EDT Appointment Hematology and Oncology at [place] [phone] documented as of this encounter Procedures Procedure Name Priority Date/Time Associated Diagnosis Comments GIARDIA/CRYPTOSPOR IDIUM ANTIGENS ([facility]/CGP/APD/NLH) Routine 06/18/2023 7:58 AM EST Irritable bowel syndrome with both constipation and diarrhea ELASTASE, STOOL Routine 06/18/2023 7:58 AM EST Irritable bowel syndrome with both constipation and diarrhea documented in this encounter Results * Elastase, Stool (06/18/2023 7:58 AM EST) Elastase Stool (QST) 485 mcg/g [facility] Comment: Adult and Pediatric Reference Ranges for ??Pancreatic Elastase-1: ? Normal: ?>200 mcg/g Moderate Pancreatic ?Insufficiency: ?? 100-200 mcg/g ??Severe Pancreatic ?Insufficiency: ?<100 mcg/g Elastase-1 (E-1) assay results are expressed in mcg/g, which represent mcg E1/g feces. It is not necessary to interrupt enzyme substitution therapy. Test performed by [facility] ?[id number] [facility], ?[place] [address] ? Stepdown Nurse: Annemarie Coon MD,PHD,DEANN Test Reported by Ludivina Montero, Social IQ (Social Influence Quotient) [facility], [address] [place] [address] Arnulfo Sarah M.D., Ph.D., Director of Laboratories , [facility] [id number] Stool 06/18/2023 7:58 AM EST 06/18/2023 2:33 PM EST Narrative Resulting Agency Comment Spec In Lab Rolly Cook MD LAB SEND OUT ORDERAB LES [facility] [place] [address] * Giardia/Cryptosporidium Antigens ([facility]/CGP/APD/NLH) (06/18/2023 7:58 AM EST) Giardia Antigen Negative Negative [facility] Comment:Examination for othe r intestinal parasites requires foreign travel history. Cryptosporidium Antigen Negative Negative [facility] Stool 06/18/2023 7:58 AM EST 06/18/2023 1:09 PM EST Narrative Resulting Agency Comment Spec In Lab Rolly Cook MD MICROBIOLOGY - GENER AL ORDERABLES [facility] [address] documented in this encounter Visit Diagnoses Diagnosis Irritable bowel syndrome with both constipation and diarrhea documented in this encounter Additional Health Concerns Infection Onset Date Last Indicated Resolved Time Rule Out C. difficile 06/18/2023 06/18/20232023 2:04 PM EST documented as of this encounter Care Teams Industrial Relations Analyst Relationship Specialty Start Date End Date Haylie Steward [place] [address] PCP - General General Internal Medicine 08/04/22 documented as of this encounter
--- OUTSIDE RECORDS SUMMARY | 2024-04-22 00:23 | XMS_ITS | Encounter Summary ---
Author Organization [facility] [place] [address] Care Team Providers Care Software Engineer Intern Name Role Phone Haylie Steward MD Primary Care Provider [phone] Encounter Details Date Type Department Care Team (Latest Contact Info) Description 07/06/2023 Travel Social History Tobacco Use Types Packs/Day [...] Scheduled View Only Radiation Oncology at [address] [phone] 04/25/2024 8:30 AM EST Scheduled View Only Radiation Oncology at [address] [phone] 04/26/2024 3:00 PM EST Scheduled View Only Radiation Oncology at [address] [address] 04/26/2024 3:30 PM EST Office Visit Radiation Oncology at [address] [address] Ofe Fonseca MD [facility] [place] [address] 04/28/2024 2:45 PM EST Scheduled View Only Radiation Oncology at [address] [address] 04/29/2024 3:00 PM EST Scheduled View Only Radiation Oncology at [address] [address] 05/02/2024 3:45 PM EST Scheduled View Only Radiation Oncology at [address] [address] 05/03/2024 1:45 PM EST Scheduled View Only Radiation Oncology at [address] [address] 05/03/2024 2:15 PM EST Office Visit Radiation Oncology at [address] [address] Ofe Fonseca MD [facility] [place] [address] 05/05/2024 8:15 AM EST Scheduled View Only Radiation Oncology at [address] [address] 05/06/2024 12:30 PM EST Scheduled View Only Radiation Oncology at [address] [address] 05/09/2024 3:00 PM EST Scheduled View Only Radiation Oncology at [address] [address] 05/10/2024 2:30 PM EST Scheduled View Only Radiation Oncology at [address] [address] 05/10/2024 3:15 PM EST Office Visit Radiation Oncology at [address] [phone] Ofe Fonseca MD [facility] [place] [address] 05/11/2024 2:45 PM EST Scheduled View Only Radiation Oncology at [address] [phone] 06/03/2024 3:30 PM EST [place]oint[place] [phone] Mira Hutchison, [facility] [place] [address] 06/23/2024 4:00 PM EST Appointment Mammography/[place] [phone] Miryam Feliciano MD [facility] [place] [address] 07/12/2024 8:00 AM EDT Laboratory Appointment Lab [address] [place] [phone] 07/12/2024 9:30 AM EDT Office Visit Nephrology [place] [phone] Sharmin Jean-Baptiste [facility] [place] [address] 07/13/2024 10:30 AM EDT Laboratory Appointment Lab at [facility] Hematology Oncology [address] [place] [phone] 07/13/2024 11:30 AM EDT Office Visit Hematology [place] [address] Salena Alvares APRN [facility] [place] [address] 07/13/2024 12:45 PM EDT Appointment Hematology [place] [phone] documented as of this encounter Visit Diagnoses Not on filedocumented in this encounter Care Teams Software Engineer Intern Relationship Specialty Start Date [place] [address] PCP - General General Internal Medicine 08/04/22 documented as of this encounter
--- OUTSIDE RECORDS SUMMARY | 2024-04-22 00:23 | XMS_ITS | Encounter Summary ---
Author Organization [place], [place] Care Team Providers Care Bike Shop Manager Name Role Phone Haylie Steward MD Primary Care Provider [phone] Encounter Details Date Type Department Care Team (Latest Contact Info) Description 06/26/2023 7:10 AM EST Laboratory Appointment Lab [address] [place] [phone] Bipolar 1 disorder Social History Tobacco Use [...] EST Scheduled View Only Radiation Oncology at [address] [phone] 04/25/2024 8:30 AM EST Scheduled View Only Radiation Oncology at [address] [address] 04/26/2024 3:00 PM EST Scheduled View Only Radiation Oncology at [address] [address] 04/26/2024 3:30 PM EST Office Visit Radiation Oncology at [address] [address] Ofe Fonseca MD [facility] [place] [address] 04/28/2024 2:45 PM EST Scheduled View Only Radiation Oncology at [address] [address] 04/29/2024 3:00 PM EST Scheduled View Only Radiation Oncology at [address] [address] 05/02/2024 3:45 PM EST Scheduled View Only Radiation Oncology at [address] [address] 05/03/2024 1:45 PM EST Scheduled View Only Radiation Oncology at [address] [address] 05/03/2024 2:15 PM EST Office Visit Radiation Oncology at [address] [address] Ofe Fonseca MD [facility] [place] [address] 05/05/2024 8:15 AM EST Scheduled View Only Radiation Oncology at [address] [address] 05/06/2024 12:30 PM EST Scheduled View Only Radiation Oncology at [address] [address] 05/09/2024 3:00 PM EST Scheduled View Only Radiation Oncology at [address] [address] 05/10/2024 2:30 PM EST Scheduled View Only Radiation Oncology at [address] [address] 05/10/2024 3:15 PM EST Office Visit Radiation Oncology at [address] [address] Ofe Fonseca MD [facility] [place] [address] 05/11/2024 2:45 PM EST Scheduled View Only Radiation Oncology at [address] [address] 06/03/2024 3:30 PM EST Appointment Ultrasound at [place] [phone] Mira Hutchison, [facility] [place] [address] 06/23/2024 4:00 PM EST Appointment Mammography/DXA at [place] [phone] Miryam Feliciano MD [facility] [place] [address] 07/12/2024 8:00 AM EDT Laboratory Appointment Lab [address] [phone] 07/12/2024 9:30 AM EDT Office Visit [place] [phone] Sharmin Jean-Baptiste, [facility] [place] [address] 07/13/2024 10:30 AM EDT Laboratory Appointment Lab at [facility] Hematology Oncology [address] [place] [phone] 07/13/2024 11:30 AM EDT Office Visit Hematology [place] [address] Salena Alvares APRN [facility] [place] [address] 07/13/2024 12:45 PM EDT Appointment Hematology [place] [address] documented as of this encounter Procedures Procedure Name Priority Date/Time Associated Diagnosis Comments VALPROIC ACID LEVEL, TOTAL Routine 06/26/2023 7:19 AM EST Bipolar 1 disorder documented in this encounter Results * Valproic Acid Level, Total (06/26/2023 7:19 AM EST) Valproic Acid 37 mg/L [facility] Comment: Therapeutic Range: Anticonvulsant Therapy: ??50-100 mg/L Manic Episodes Associated with Bipolar Disorder: ??50-125 mg/L Blood 06/26/2023 7:19 AM EST 06/26/2023 7:26 AM EST Narrative Resulting Agency Comment Spec In Lab Michelet Monge MD CHEMISTRY ORDERABLES [facility] [place] [address] documented in this encounter Visit Diagnoses Diagnosis Bipolar 1 disorder Bipolar I disorder, most recent episode (or current) unspecified documented in this encounter Care Teams Bike Shop Manager Relationship Specialty Start Date End Date Haylie Steward MD [facility] [place] [address] PCP - General General Internal Medicine 08/04/22 documented as of this encounter
--- OUTSIDE RECORDS SUMMARY | 2024-04-22 00:23 | XMS_ITS | Encounter Summary ---
Author Organization [facility] [place] [address] Care Team Providers Care Acute Care Nursing Assistant Name Role Phone Haylie Steward MD Primary Care Provider [phone] Encounter Details Date Type Department Care Team (Latest Contact Info) Description 06/22/2023 Travel Social History Tobacco Use Types Packs/Day [...] EST Scheduled View Only Radiation Oncology at [address] [address] 04/25/2024 8:30 AM EST Scheduled View Only Radiation Oncology at [address] [address] 04/26/2024 3:00 PM EST Scheduled View Only Radiation Oncology at [address] [phone] 04/26/2024 3:30 PM EST Office Visit Radiation Oncology at [address] [phone] Ofe Fonseca MD [facility] [place] [address] 04/28/2024 2:45 PM EST Scheduled View Only Radiation Oncology at [address] [address] 04/29/2024 3:00 PM EST Scheduled View Only Radiation Oncology at [address] [address] 05/02/2024 3:45 PM EST Scheduled View Only Radiation Oncology at [address] [address] 05/03/2024 1:45 PM EST Scheduled View Only Radiation Oncology at [address] [address] 05/03/2024 2:15 PM EST Office Visit Radiation Oncology at [address] [address] Ofe Fonseca MD [facility] [place] [address] 05/05/2024 8:15 AM EST Scheduled View Only Radiation Oncology at [address] [address] 05/06/2024 12:30 PM EST Scheduled View Only Radiation Oncology at [address] [phone] 05/09/2024 3:00 PM EST Scheduled View Only Radiation Oncology at [address] [address] 05/10/2024 2:30 PM EST Scheduled View Only Radiation Oncology at [address] [address] 05/10/2024 3:15 PM EST Office Visit Radiation Oncology at [address] [phone] Ofe Fonseca MD [facility] [place] [address] 05/11/2024 2:45 PM EST Scheduled View Only Radiation Oncology at [address] [phone] 06/03/2024 3:30 PM EST Appointment [place] [phone] Mira Hutchison, [facility] [place] [address] 06/23/2024 4:00 PM EST Appointment Mammography/[place] [phone] Miryam Feliciano MD [facility] [place] [address] 07/12/2024 8:00 AM EDT Laboratory Appointment Lab [address] [place] [phone] 07/12/2024 9:30 AM EDT Office Visit Ne[place] [phone] Sharmin Jean-Baptiste [facility] [place] [address] 07/13/2024 10:30 AM EDT Laboratory Appointment Lab at [facility] Hematology Oncology [address] [place] [phone] 07/13/2024 11:30 AM EDT Office Visit Hematology [place] [address] Salena Alvares APRN [facility] [place] [address] 07/13/2024 12:45 PM EDT Appointment Hematology [place] [phone] documented as of this encounter Visit Diagnoses Not on filedocumented in this encounter Care Teams Acute Care Nursing Assistant Relationship Specialty Start Date [place] [address] PCP - General General Internal Medicine 08/04/22 documented as of this encounter
--- OUTSIDE RECORDS SUMMARY | 2024-04-22 00:23 | XMS_ITS | Encounter Summary ---
Author Organization [facility] [place] [address] Care Team Providers Care Tailoring Teacher Name Role Phone Haylie Steward MD Primary Care Provider [phone] Encounter Details Date Type Department Care Team (Latest Contact Info) Description 06/17/2023 Travel Social History Tobacco Use Types Packs/Day [...] Scheduled View Only Radiation Oncology at [address] [phone] 04/25/2024 8:30 AM EST Scheduled View Only Radiation Oncology at [address] [phone] 04/26/2024 3:00 PM EST Scheduled View Only Radiation Oncology at [address] [address] 04/26/2024 3:30 PM EST Office Visit Radiation Oncology at [address] [phone] Ofe Fonseca MD [facility] [place] [address] 04/28/2024 2:45 PM EST Scheduled View Only Radiation Oncology at [address] [address] 04/29/2024 3:00 PM EST Scheduled View Only Radiation Oncology at [address] [address] 05/02/2024 3:45 PM EST Scheduled View Only Radiation Oncology at [address] [address] 05/03/2024 1:45 PM EST Scheduled View Only Radiation Oncology at [address] [address] 05/03/2024 2:15 PM EST Office Visit Radiation Oncology at [address] [phone] Ofe Fonseca MD [facility] [place] [address] 05/05/2024 8:15 AM EST Scheduled View Only Radiation Oncology at [address] [address] 05/06/2024 12:30 PM EST Scheduled View Only Radiation Oncology at [address] [address] 05/09/2024 3:00 PM EST Scheduled View Only Radiation Oncology at [address] [address] 05/10/2024 2:30 PM EST Scheduled View Only Radiation Oncology at [address] [address] 05/10/2024 3:15 PM EST Office Visit Radiation Oncology at [address] [phone] Ofe Fonseca MD [facility] [place] [address] 05/11/2024 2:45 PM EST Scheduled View Only Radiation Oncology at [address] [phone] 06/03/2024 3:30 PM EST [place] [phone] Mira Hutchison, [facility] [place] [address] 06/23/2024 4:00 PM EST Appointment Mammography/[place] [phone] Miryam Feliciano MD [facility] [place] [address] 07/12/2024 8:00 AM EDT Laboratory Appointment Lab [address] [place] [phone] 07/12/2024 9:30 AM EDT Office Visit Ne[place] [phone] Sharmin Jean-Baptiste [facility] [place] [address] 07/13/2024 10:30 AM EDT Laboratory Appointment Lab at [facility] Hematology Oncology [address] [place] [phone] 07/13/2024 11:30 AM EDT Office Visit Hematology [place] [address] Salena Alvares APRN [facility] [place] [address] 07/13/2024 12:45 PM EDT Appointment Hematology [place] [phone] documented as of this encounter Visit Diagnoses Not on filedocumented in this encounter Care Teams Tailoring Teacher Relationship Specialty Start Date [place] [address] PCP - General General Internal Medicine 08/04/22 documented as of this encounter
--- OUTSIDE RECORDS SUMMARY | 2024-04-22 00:23 | XMS_ITS | Encounter Summary ---
Author [facility] [place] [address] Care Team Providers Care Slp Teacher Name Role Phone Haylie Steward MD Primary Care Provider + [phone] Encounter Details Date Type Department Care Team (Late st Contact Info) Description 06/18/2023 Telephone [place] [phone] Geoffrey Crews RN Social History Tobacco Use Types Packs/Day Years Used Date Smoking Tobacco: Never Smokeless Tobacco: Never Alcohol Use Standard Drinks/Week Comments Not Currently 0 (1 standard drink = 0.6 oz pur e alcohol) [facility], [facility] Inpatient Questions Answer Date Recorded Does [...] encounter Miscellaneous Notes * Telephone Encounter - Pallavi Maldonado RN - 06/19/2023 12:17 PM EST Images from the original note were not included. Rolly Cook MD Wilson, Tammy-Lynn A, RN; P [facility] [place] Caller: Unspecified (Yesterday, 3:00 PM) I think her diarrhea was worse in AM if I recall correctly. Recommend starting with 2 mg at qhs Can add 1 mg in early AM if ongoing Can increase to 2 mg if needed Can add additional dosing at noon if needed Thank you, Rolly HANKINS to pt. Spoke with pt. Discussed Dr. Cook's recommendations per this encounter. Pt agrees with plan and verbalizes understanding. She will call us next week with an update on how she responds. * Telephone Encounter - Geoffrey Crews RN - 06/18/2023 3:00 PM EST Patient calls the office leaving a message on the RN voicemail stating that Dr. Cook recommended Imodium and recommended it be on a schedule. Patient is asking when/? Should it be set times, how many times a day and how much? documented in this encounter Plan of Treatment Upcoming Encounters Date Type Department Care Team (Latest Contact Info) Description 04/22/2024 9:45 AM EST Scheduled View Only Radiation Oncology at [address] [phone] 04/25/2024 8:30 AM EST Scheduled View Only Radiation Oncology at [address] [address] 04/26/2024 3:00 PM EST Scheduled View Only Radiation Oncology at [address] [phone] 04/26/2024 3:30 PM EST Office Visit Radiation Oncology at [address] [phone] Ofe Fonseca MD [facility] [place] [address] 04/28/2024 2:45 PM EST Scheduled View Only Radiation Oncology at [address] [address] 04/29/2024 3:00 PM EST Scheduled View Only Radiation Oncology at [address] [address] 05/02/2024 3:45 PM EST Scheduled View Only Radiation Oncology at [address] [address] 05/03/2024 1:45 PM EST Scheduled View Only Radiation Oncology at [address] [address] 05/03/2024 2:15 PM EST Office Visit Radiation Oncology at [address] [phone] Ofe Fonseca MD [facility] [place] [address] 05/05/2024 8:15 AM EST Scheduled View Only Radiation Oncology at [address] [address] 05/06/2024 12:30 PM EST Scheduled View Only Radiation Oncology at [address] [address] 05/09/2024 3:00 PM EST Scheduled View Only Radiation Oncology at [address] [address] 05/10/2024 2:30 PM EST Scheduled View Only Radiation Oncology at [address] [address] 05/10/2024 3:15 PM EST Office Visit Radiation Oncology at [address] [phone] Ofe Fonseca MD [facility] [place] [address] 05/11/2024 2:45 PM EST Scheduled View Only Radiation Oncology at [address] [address] 06/03/2024 3:30 PM EST Appointment Ultrasound at [place] [phone] Mira Hutchison, [facility] [place] [address] 06/23/2024 4:00 PM EST Appointment Mammography/DXA at [place] [phone] Miryam Feliciano MD [facility] [place] [address] 07/12/2024 8:00 AM EDT Laboratory Appointment Lab [address] [place], [place] [phone] 07/12/2024 9:30 AM EDT Office Visit Nephrology Hypertension at [place] [phone] Sharmin Jean-Baptiste [facility] [place] [address] 07/13/2024 10:30 AM EDT Laboratory Appointment [place] [facility] [place] [address] [place], [place] [phone] 07/13/2024 11:30 AM EDT Office Visit Hematology and Oncology at [place] [phone] Salena Alvares [facility] [place] [address] 07/13/2024 12:45 PM EDT Appointment Hematology and Oncology at [place] [phone] documented as of this encounter Visit Diagnoses Not on filedocumented in this encounter Additional Health Concerns Infection Onset Date Last Indicated Resolved Time Rule Out C. difficile 06/18/2023 06/18/20232023 2:04 PM EST documented as of this encounter Care Teams Slp Teacher Relationship Specialty Start Date End [place] [address] PCP - General General Internal Medicine 08/04/22 documented as of this encounter
--- OUTSIDE RECORDS SUMMARY | 2024-04-22 00:23 | XMS_ITS | Encounter Summary ---
[place] [address] Care Team Providers Care Drier Name Role Phone Haylie Steward MD Primary Care Provider [phone] Encounter Details Date Type Department Care Team (Late st Contact Info) Description 06/17/2023 1:25 PM EST Laboratory Appointment Lab [address] [place] [phone] Social History Tobacco Use Types Packs/Day Years [...] Scheduled View Only Radiation Oncology at [address] [phone] 04/25/2024 8:30 AM EST Scheduled View Only Radiation Oncology at [address] [address] 04/26/2024 3:00 PM EST Scheduled View Only Radiation Oncology at [address] [address] 04/26/2024 3:30 PM EST Office Visit Radiation Oncology at [address] [phone] Ofe Fonseca MD [facility] [place] [address] 04/28/2024 2:45 PM EST Scheduled View Only Radiation Oncology at [address] [address] 04/29/2024 3:00 PM EST Scheduled View Only Radiation Oncology at [address] [address] 05/02/2024 3:45 PM EST Scheduled View Only Radiation Oncology at [address] [address] 05/03/2024 1:45 PM EST Scheduled View Only Radiation Oncology at [address] [address] 05/03/2024 2:15 PM EST Office Visit Radiation Oncology at [address] [address] Ofe Fonseca MD [facility] [place] [address] 05/05/2024 8:15 AM EST Scheduled View Only Radiation Oncology at [address] [address] 05/06/2024 12:30 PM EST Scheduled View Only Radiation Oncology at [address] [address] 05/09/2024 3:00 PM EST Scheduled View Only Radiation Oncology at [address] [address] 05/10/2024 2:30 PM EST Scheduled View Only Radiation Oncology at [address] [address] 05/10/2024 3:15 PM EST Office Visit Radiation Oncology at [address] [phone] Ofe Fonseca MD [facility] DR [place] [address] 05/11/2024 2:45 PM EST Scheduled View Only Radiation Oncology at [address] [address] 06/03/2024 3:30 PM EST Appointment Ultrasound at [place] [phone] Mira Hutchison, [facility] [place] [address] 06/23/2024 4:00 PM EST Appointment Mammography/DXA at [place] [phone] Miryam Feliciano MD [facility] [place] [address] 07/12/2024 8:00 AM EDT Laboratory Appointment Lab [address] [phone] 07/12/2024 9:30 AM EDT Office Visit Neph[place] [phone] Sharmin Jean-Baptiste, [facility] [place] [address] 07/13/2024 10:30 AM EDT Laboratory Appointment Lab [place] [facility] [place] [address] [place] [phone] 07/13/2024 11:30 AM EDT Office Visit Hematology [place] [address] Salena Alvares APRN [facility] [place] [address] 07/13/2024 12:45 PM EDT Appointment Hematology [place] [address] documented as of this encounter Visit Diagnoses Not on filedocumented in this encounter Care Teams Drier Relationship Specialty Start Date [place] [address] PCP - General General Internal Medicine 08/04/22 documented as of this encounter
--- OUTSIDE RECORDS SUMMARY | 2024-04-22 00:23 | XMS_ITS | Encounter Summary ---
[place] [address] Care Team Providers Care Histological Illustrator Name Role Phone Haylie Steward MD Primary Care Provider [phone] Encounter Details Date Type Department Care Team (Late st Contact Info) Description 06/11/2023 3:25 PM EST Anesthesia [place] [phone] Giselle Wall MD [facility] [place] [address] Fernandez Martino CRNA [facility] [place] [address] Anesthesia Record Procedure Summary Procedure Name Responsible Anesthesiologist Anesthesia Start Time Anesthesia Stop Time EGD WITH BIOPSY (WRVU 2.39) (Trunk) Giselle Wall MD 06/11/23 1525 06/11/23 1616 Events Date Time Event Comment 06/11/2023 1422 1525 AN Verify 1525 Start 1531 An Start Data Bite block angelica ju by Endo Staff. 1531 An Induction 1531 Anesthesia Ready 1536 Break/Relief In I assumed ca re for Break Relief before which we: 1. Identified the patient 2. Identified the responsible provider(s) 3. Reviewed the pertinent medical history 4. Discussed the surgical plan and course 5. Reviewed intra-op anesthesia management and issues during anesthesia 6. Set expectations for the relief (and/or post-procedure) period 7. Allowed opportunity for questions and acknowledgement of understanding Kali Hal DiamondROD 1554 Break/Relief Out 1612 an stop data 1616 Recovery or ICU Handoff Shahla ent care was transferred to the destination unit staff after review of the patient's medical history, current anesthetic/surgical status and plan, according to the Provider Handoff Checklist. 1616 Stop Meds Name Total Propofol INF 655.2 mg Dexmedetomidine 8 mcg lactated ringers infusion 400 mL * Agents Name O2 Air N2O O2 Auxiliary Flowmeter 1 * Blood No blood administrations on file. Lines, Drains, and Airways Type Details Placement Removal PIV 06/11/23; 1408; imka-qse-pefikt catheter system; 22 gauge; metacarpal vein (top of hand), right; no longer indicated, catheter/device intact; 06/11/23; 1717 06/11/23 1408 by Alison Howell, RN 06/11/23 171 by Jenelle Pickett RN documented in this encounter Social History [...] OR Notes * Anesthesia Postprocedure Evaluation - Giselle Wall MD - 06/11/2023 4:31 PM EST Department of Anesthesiology Post-procedure Note Patient: Nataliya Morfin Procedure Summary Date: 06/11/23 Room / Location: [facility] ENDO 2 / [facility] ENDOSCOPY Anesthesia Start: 1525 Anesthesia Stop: 1616 Procedures: EGD WITH BIOPSY (WRVU 2.39) (Trunk) COLONOSCOPY FLEXIBLE, WITH BX (WRVU 3.56) (Abdomen) Diagnosis: Iron deficiency anemia, unspecified iron deficiency anemia type (DARRIUS; diarrhea) Surgeons: Jack Page MD Responsible Provider: Giselle Wall MD Anesthesia Type: MAC ASA Status: 2 All Anesthesia Providers: Anesthesiologist: Giselle Wall MD LOOP PULLER: Fernandez Martino CRNA Vitals Value Taken Time BP 121/76 06/11/23 1630 Temp Pulse 64 06/11/23 1615 Resp 18 06/11/23 1615 SpO2 100 % 06/11/23 1631 Pain Level 0 06/11/23 1615 Vitals shown include unfiled device data. Patient Location: PACU/[facility] Level of Consciousness: Awake and Alert Pain Management: Satisfactory Analgesia PONV: None Cardiovascular Status: At Baseline and Hemodynamically Stable Respiratory Status: At Baseline and Room Air Postoperative Fluid Status: Intravascular EUvolemia Possible Anesthetic Complications: NONE apparent at time of evaluation Final Primary Anesthesia Type: MAC (The anesthetic type performed was the same as planned.) Comments: GISELLE WALL MD * Anesthesia Preprocedure Evaluation - Giselle Wall MD - 06/11/2023 2:20 PM EST Pre-Anesthesia Evaluation for: Nataliya Morfin a 48 y.o. female. Procedure(s): EGD, UPPER GI ENDOSCOPY (WRVU 2.09) COLONOSCOPY, DIAGNOSTIC (WRVU 3.26) Patient Active Problem List Diagnosis Date Noted ??? Riviera intoxication, accidental or unintentional, initial encounter 09/06/2022 ??? Stage 3a chronic kidney disease (CKD) 08/08/2022 ??? Hyperparathyroidism 08/08/2022 ??? Anemia 08/08/2022 [...] creatinine ratio less than 30 mg/g ??? OCD (obsessive compulsive disorder) Past Surgical History: Procedure Laterality Date ??? EYE SURGERY tear ducts as a child ??? TOE SURGERY Social History Tobacco Use [...] Patient states it affects her bipolar medication Riviera. Medications: MAR and/or home medications have been reviewed. Physical Exam: Preprocedure Vitals Current as of 06/11/23 1420 BP: 146/93 Pulse: 73 Resp: 16 SpO2: 100 Temp: 36.5 ??C (97.7 ??F) Height: Weight: BMI: IBW: Last edited 06/11/[address] Airway Assessment: Mallampati: II TM distance: >3 FB Neck ROM: full Cardiovascular Assessment: system normal Pulmonary Assessment: unlabored breathing Dental Assessment: - normal exam Misc Assessment: Patient is wearing No contact(s). 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 Plan discussed with LOOP PULLER. Anesthesia Screening documented in this encounter Plan of Treatment Upcoming Encounters Date Type Department Care Team (Latest Contact Info) Description 04/22/2024 9:45 AM EST Scheduled View Only Radiation Oncology at [address] [address] 04/25/2024 8:30 AM EST Scheduled View Only Radiation Oncology at [address] [address] 04/26/2024 3:00 PM EST Scheduled View Only Radiation Oncology at [address] [address] 04/26/2024 3:30 PM EST Office Visit Radiation Oncology at [address] [address] Ofe Fonseca MD [facility] [place] [address] 04/28/2024 2:45 PM EST Scheduled View Only Radiation Oncology at [address] [address] 04/29/2024 3:00 PM EST Scheduled View Only Radiation Oncology at [address] [address] 05/02/2024 3:45 PM EST Scheduled View Only Radiation Oncology at [address] [address] 05/03/2024 1:45 PM EST Scheduled View Only Radiation Oncology at [address] [address] 05/03/2024 2:15 PM EST Office Visit Radiation Oncology at [address] [address] Ofe Fonseca MD [facility] RAD[place] [address] 05/05/2024 8:15 AM EST Scheduled View Only Radiation Oncology at [address] [address] 05/06/2024 12:30 PM EST Scheduled View Only Radiation Oncology at [address] [address] 05/09/2024 3:00 PM EST Scheduled View Only Radiation Oncology at [address] [address] 05/10/2024 2:30 PM EST Scheduled View Only Radiation Oncology at [address] [address] 05/10/2024 3:15 PM EST Office Visit Radiation Oncology at [address] [address] Ofe Fonseca MD [facility] [place] [address] 05/11/2024 2:45 PM EST Scheduled View Only Radiation Oncology at [address] [address] 06/03/2024 3:30 PM EST Appointment Ultrasound at [place] [phone] Mira Hutchison IMMUNOHEMATOLOGIST [facility] [place] [address] 06/23/2024 4:00 PM EST Appointment Mammography/[place] [phone] Miryam Feliciano MD [facility] [place] [address] 07/12/2024 8:00 AM EDT Laboratory Appointment Lab [address] [phone] 07/12/2024 9:30 AM EDT Office Visit Neph[place] [phone] Sharmin Jean-Baptiste IMMUNOHEMATOLOGIST [facility] [place] [place] [address] 07/13/2024 10:30 AM EDT Laboratory Appointment Lab [place] [facility] [place] [address] [place] [phone] 07/13/2024 11:30 AM EDT Office Visit Hematology [place] [phone] Salena Alvares APRN [facility] [place] [address] 07/13/2024 12:45 PM EDT Appointment Hematology [place] [phone] documented as of this encounter Visit Diagnoses Not on filedocumented in this encounter Administered Medications Inactive Administered Medications - up to 3 most recent administrations Medication Order MAR Action Action Date Dose Rate Site dexmedeTOMIDine (Precedex) (4 mcg/mL) bolus injection (Anesthsia) Intravenous, PRN, Starting on Yaneth 24 at 1531, Until Yaneth 06/11/23 at 1618, Anesthesia Intra-op, Routine Given 06/11/2023 3:31 PM EST 8 mcg lactated ringers infusion 100 mL/hr, Intravenous, CONTINUOUS, Starting on Yaneth 06/11/23 at 1415, Until Yaneth 24 at 1722, Endoscopy (Day of Procedure) New Bag 06/11/2023 3:20 PM EST New Bag 06/11/2023 2:08 PM EST 100 mL/hr 100 mL/hr propofoL (Diprivan) (10 mg/mL) infusion Intravenous, CONTINUOUS PRN, Starting on Yaneth 06/11/23 at 1531, Until Yaneth 06/11/23 at 1618, Anesthesia Intra-op, Routine Rate/Dose Change 06/11/2023 3:46 PM EST 200 mcg/kg/min 75.6 mL/hr Rate/Dose Change 06/11/2023 3:44 PM EST 250 mcg/kg/min 94. 5 mL/hr New Bag 06/11/2023 3:31 PM EST 300 mcg/kg/min 113.4 mL/ hr documented in this encounter Care Teams Histological Illustrator Relationship Specialty Start Date End Date Haylie Steward MD [facility] [place] [address] PCP - General General Internal Medicine 08/04/22 documented as of this encounter
--- OUTSIDE RECORDS SUMMARY | 2024-04-22 00:23 | XMS_ITS | Encounter Summary ---
Author Organization [facility] [place] [address] Care Team Providers Care Structural Layout Worker Name Role Phone Haylie Steward MD Primary Care Provider [phone] Encounter Details Date Type Department Care Team (Latest Contact Info) Description 06/20/2023 Travel Social History Tobacco Use Types Packs/Day [...] Scheduled View Only Radiation Oncology at [address] [phone] 04/25/2024 8:30 AM EST Scheduled View Only Radiation Oncology at [address] [phone] 04/26/2024 3:00 PM EST Scheduled View Only Radiation Oncology at [address] [phone] 04/26/2024 3:30 PM EST Office Visit Radiation Oncology at [address] [phone] Ofe Fonseca MD [facility] [place] [address] 04/28/2024 2:45 PM EST Scheduled View Only Radiation Oncology at [address] [phone] 04/29/2024 3:00 PM EST Scheduled View Only Radiation Oncology at [address] [phone] 05/02/2024 3:45 PM EST Scheduled View Only Radiation Oncology at [address] [phone] 05/03/2024 1:45 PM EST Scheduled View Only Radiation Oncology at [address] [phone] 05/03/2024 2:15 PM EST Office Visit Radiation Oncology at [address] [phone] Ofe Fonseca MD [facility] [place] [address] 05/05/2024 8:15 AM EST Scheduled View Only Radiation Oncology at [address] [phone] 05/06/2024 12:30 PM EST Scheduled View Only Radiation Oncology at [address] [phone] 05/09/2024 3:00 PM EST Scheduled View Only Radiation Oncology at [address] [phone] 05/10/2024 2:30 PM EST Scheduled View Only Radiation Oncology at [address] [phone] 05/10/2024 3:15 PM EST Office Visit Radiation Oncology at [address] [phone] Ofe Fonseca MD [facility] [place] [address] 05/11/2024 2:45 PM EST Scheduled View Only Radiation Oncology at [address] [phone] 06/03/2024 3:30 PM EST [place]oint[place] [phone] Mira Hutchison, [facility] [place] [address] 06/23/2024 4:00 PM EST Appointment Mammography/[place] [phone] Miryam Feliciano MD [facility] [place] [address] 07/12/2024 8:00 AM EDT Laboratory Appointment Lab [address] [place] [phone] 07/12/2024 9:30 AM EDT Office Visit Neph[place] [phone] Sharmin Jean-Bapitste [facility] [place] [address] 07/13/2024 10:30 AM EDT Laboratory Appointment Lab at [facility] Hematology Oncology [address] [place] [phone] 07/13/2024 11:30 AM EDT Office Visit Hematology [place] [address] Salena Alvares APRN [facility] [place] [address] 07/13/2024 12:45 PM EDT Appointment Hematology [place] [phone] documented as of this encounter Visit Diagnoses Not on filedocumented in this encounter Care Teams Structural Layout Worker Relationship Specialty Start Date End [place] [address] PCP - General General Internal Medicine 08/04/22 documented as of this encounter
--- OUTSIDE RECORDS SUMMARY | 2024-04-22 00:23 | XMS_ITS | Encounter Summary ---
Author Organization [facility] [place] [address] Care Team Providers Care Senior It Project Manager Name Role Phone Haylie Steward MD Primary Care Provider [phone] Encounter Details Date Type Department Care Team (Late st Contact Info) Description 06/21/2023 9:08 AM EST - 06/21/2023 11:59 PM EST Hospital Encounter [facility] [address] [place] [phone] Angela Heredia MD [facility] [place] [address] Discharge Disposition: Home Social History Tobacco Use [...] Scheduled View Only Radiation Oncology at [address] [phone] 04/25/2024 8:30 AM EST Scheduled View Only Radiation Oncology at [address] [phone] 04/26/2024 3:00 PM EST Scheduled View Only Radiation Oncology at [address] [phone] 04/26/2024 3:30 PM EST Office Visit Radiation Oncology at [address] [phone] Ofe Fonseca MD [facility] [place] [address] 04/28/2024 2:45 PM EST Scheduled View Only Radiation Oncology at [address] [phone] 04/29/2024 3:00 PM EST Scheduled View Only Radiation Oncology at [address] [phone] 05/02/2024 3:45 PM EST Scheduled View Only Radiation Oncology at [address] [phone] 05/03/2024 1:45 PM EST Scheduled View Only Radiation Oncology at [address] [phone] 05/03/2024 2:15 PM EST Office Visit Radiation Oncology at [address] [phone] Ofe Fonseca MD [facility] [place] [address] 05/05/2024 8:15 AM EST Scheduled View Only Radiation Oncology at [address] [phone] 05/06/2024 12:30 PM EST Scheduled View Only Radiation Oncology at [address] [phone] 05/09/2024 3:00 PM EST Scheduled View Only Radiation Oncology at [address] [phone] 05/10/2024 2:30 PM EST Scheduled View Only Radiation Oncology at [address] [phone] 05/10/2024 3:15 PM EST Office Visit Radiation Oncology at [address] [phone] Ofe Fonseca MD [facility] [place] [address] 05/11/2024 2:45 PM EST Scheduled View Only Radiation Oncology at [address] [phone] 06/03/2024 3:30 PM EST Appointment Ultrasound at [place] [phone] Mira Hutchison [facility] [place] [address] 06/23/2024 4:00 PM EST Appointment Mammography/DXA at [place] [phone] Miryam Feliciano MD [facility] [place] [address] 07/12/2024 8:00 AM EDT Laboratory Appointment Lab [address] [place], [place] [phone] 07/12/2024 9:30 AM EDT Office Visit Nephrology Hypertension at [place] [phone] Sharmin Jean-Baptiste [facility] [place] [address] 07/13/2024 10:30 AM EDT Laboratory Appointment Lab at [facility] Hematology Oncology [address] [place], [place] [phone] 07/13/2024 11:30 AM EDT Office Visit Hematology [place] [phone] Salena Alvares [facility] [place] [address] 07/13/2024 12:45 PM EDT Appointment Hematology and Oncology at [place] [phone] documented as of this encounter Procedures Procedure Name Priority Date/Time Associated Diagnosis Comments U24 HRS AND VOLUME Routine 06/21/2023 7: 14 AM EST CALCIUM, URINE, 24 HOUR Routine 06/21/2023 7:14 AM EST documented in this encounter Results * U24 Hrs and Volume (06/21/2023 7:14 AM EST) Hours Collected 24 hour(s) [facility] Total Volume 5,678 mL [facility] Urine 06/21/2023 7:14 AM EST 06/21/2023 11:51 AM EST Narrative Resulting Agency Comment Spec In Lab Angela Heredia MD CHEMISTRY ORDERABLES Performing Organization Address City/[facility]/ZIP Co de Phone Number [facility] [place] [address] * Calcium, urine, 24 hour (06/21/2023 7:14 AM EST) Ca Concentration, U24 1.4 mg/dL [facility] Calcium, 24 Hour Urine 79.5 50.0 - 300.0 mg/24hr [facility] Comment:Reference Range: 50. 0-300.0 mg/24 hour based on diet. Urine 06/21/2023 7:14 AM EST 06/21/2023 11:51 AM EST Narrative Resulting Agency Comment Spec In Lab Angela Heredia MD URINE ORDERABLES Performing Organization Address City/[facility]/ZIP Co de Phone Number [facility] [place] [address] documented in this encounter Visit Diagnoses Not on filedocumented in this encounter Care Teams Senior It Project Manager Relationship Specialty Start Date End [place] [address] [place] [address] PCP - General General Internal Medicine 08/04/22 documented as of this encounter
--- OUTSIDE RECORDS SUMMARY | 2024-04-22 00:23 | XMS_ITS | Encounter Summary ---
[place] [address] Care Team Providers Care Operation Agent Name Role Phone Haylie Steawrd MD Primary Care Provider [phone] Reason for Referral * Diagnostic Test (Routine) - Closed Specialty Diagnoses / Procedures Referred By Mirlande burroughs Referred To Contact Radiology Diagnoses Irritable bowel syndrome with both constipation and diarrhea Procedures MRI Enterography wwo Contrast Rolly Cook MD [facility] [place] [address] [place] [address] Referral ID Status Reason Start Date Expiration Date V isits Requested Visits Authorized [id number] Closed Specialty Service Requested 06/15/2023 12/13/2024 1 1 * Diagnostic Test (Routine) - Closed Specialty Diagnoses / Procedures Referred By Mirlande burroughs Referred To Contact Gastroenterology Diagnoses Dysphagia, unspecified type HREM - dysphagia Procedures High Resolution Esophageal Manometry PRG UNLISTED DIAGNOSTIC GASTROENTEROLOGY PROCEDURE PRG ESOPHAGEAL MOTILITY STUDY PRG GERD TST W NASAL IMPEDENCE ELECTROD Rolly Cook MD [facility] [place] [address] [facility] [place] [address] [place] [address] Referral ID Status Reason Start Date Expiration Date V isits Requested Visits Authorized [id number] Closed Test Only 06/15/2023 06/14/2024 1 1 Encounter Details Date Type Department Care Team (Latest Contact Info) Description 06/15/2023 3:00 PM EST TH Visit (TeleHealth) [place] [address] Rolly Cook MD [facility] [place] [address] Dysphagia, unspecified type; Irritable bowel syndrome with both constipation and diarrhea Social History Tobacco Use Types Packs/Day Years Used Date Smoking Tobacco: Never Smokeless Tobacco: Never Alcohol Use Standard Drinks/Week Comments Not Currently 0 (1 standard drink = 0.6 oz pur e alcohol) [facility] Inpatient Questions Answer Date Recorded Does [...] this encounter Patient Instructions * Patient Instructions* Rolly Cook MD - 06/15/2023 3:00 PM EST Functional Bowel Disorders: Information Handout for Patients and Primary Care Providers Rolly Cook MD, FRCPC + Mukesh Torres MD, DEANN Chuck Fay APRN + Mehnaz Acosta APRN + Estelle Leon APRN + ANU Pierson RN + ORALIA Armenta, PhD [facility] What are functional bowel disorders? These are the most common type of gastrointestinal disorders in the [place] The most common functional bowel disorder in the [place] is irritable bowel syndrome (IBS) Irritable bowel syndrome affects the lower GI tract and can cause bloating, abdominal pain, diarrhea, and constipation Functional dyspepsia (FD) affects the upper GI tract and can cause bloating, burping, heartburn, nausea, fullness and stomach discomfort In functional disorders the gut is structurally/anatomically normal but is not functioning properlydue to abnormalities in the enteric (gut) nervous system Two mechanisms cause symptoms - heightened sensitivity of the gut to normal sensations (sensory nerves) and abnormal gut motility (motor nerves) These disorders are caused by a combination of a genetic factors, changes to the gut microbiota (intestinal bacteria) and environmental triggers How common are these disorders and what is the impact? 15-20% of general [place] population has IBS or FD or both IBS is the 2nd most common cause for lost work days (after common cold) in [place] IBS is estimated to cost the [place] economy 30 billion dollars per year These disorders are typically chronic and can have a significant impact on quality of life How is the diagnosis made? The diagnosis of a functional disorder is NOT a ???diagnosis of exclusion?? (common misconception) Investigations may be necessary to look for other disorders (such as celiac disease) that may be contributing to symptoms. Sometimes investigations are required if the diagnosis is unclear Work-up may include history (description of symptoms), physical exam, bloodwork, stool studies, diagnostic imaging, motility tests and endoscopy What is the prognosis? Functional bowel disorders are unfortunately chronic disorders and often have a major impact on patient quality of life, function, and relationships Symptoms may gradually resolve in some patients (highest rate in patients with immediate onset of symptoms after infection); remote computer terminal operator symptoms are expected in most patients however Most patients experience a variable course with varying degrees of symptom severity. Intermittent exacerbations (i.e. ???flares?? ) are common and may be caused by stress, infections, antibiotic exposure, and lack of adherence to treatment plans. Often there is no clear precipitant for an exacerbation though. When should a patient be re-evaluated? Patients with stable symptoms do NOT need episodic re-evaluation Subtle changes in symptoms and symptom flares are common Patients should be re-evaluated if they have progression or dramatic changes in symptoms, severe abdominal pain, swallowing difficulties, unexplained weight loss, anemia (low blood counts), or bleeding If you have concerns be sure to talk to your PRP or GI provider How do I use this information? Set realistic goals! Remember it is unlikely that any one measure will completely eliminate all symptoms ???Start low and go slow?? with all measures to avoid potential side effects Stay on any measure continuously for at least 4-6 weeks prior to assessing whether or not it is helping (improvements are often slow to occur) After an adequate trial ask yourself if the benefit is worth continuing the treatment Most patients will need multiple treatment measures (each giving a partial benefit) - this is called the ???layering strategy?? Remember that finding the right combination for you takes time and patience - there is NO ???miracle cure?? for functional disorders Remember there are limited treatment options available. We want to be absolutely sure that a measure is not effective or intolerable before stopping it and considering other options We specifically recommend all patients to do ALL general lifestyle and dietary measures. Patients that do not follow these general measures generally do not have improvement. We also specifically suggest using a fiber supplement (such as Metamucil) and probiotics together - this approach benefits most patients OTC (urwr-mdc-kfoqfog) medications can be used for ongoing bothersome symptoms as listed below Your doctor (PCP or [facility] Gastroenterology provider or Gastroenterology provider) may decide to use prescription medications if you have ongoing symptoms despite using lifestyle and dietary measures and OTC medications Your doctor will give you advice on treatments but it is your responsibility to work on these measures to improve your symptoms. Lack of following recommendations is a common cause for ongoing symptoms. If symptoms are controlled try easing back on measures - remember the main goal is to improve quality of life (not necessarily eliminate symptoms). Goals of Therapy Complete resolution of all symptoms is not a realistic goal for most patients. Although we hope for you to have decreased symptoms we believe the most important goal is to help you find strategies to cope with and understand your disorder. Ultimately, we hope that you are able to improve your quality of life and do the things that are important in your life! Non-Pharmacologic General Treatments Lifestyle measures Many lifestyle factors can worsen IBS symptoms However, IBS is not caused by these factors (common misconception) These lifestyle factors include the following: Inadequate sleep Weight gain Inadequate exercise Stress Depression/anxiety - this should be brought up to your Primary Care Provider (if left untreated it is unlikely the functional bowel disorder will improve) Dietary measures Trigger food avoidance - you should re-introduce foods once symptoms settle as overly restrictive diet can be unhealthy and even harmful Fatty foods, spicy foods, alcohol, and caffeine can worsen symptoms Consider a 2 week dairy-free trial for possible lactose-intolerance Your PCP or GI provider can refer you to a dietitian for formal instruction on specialized diets including the low FODMAP diet (but we don't recommend using this without dietitian involvement). Fiber Aim for a goal is 30 g fiber/day - some patients may require more or less Increase fiber by 5 g per week (remember ???start low and go slow?? ) Fiber can be from multiple dietary sources but supplementation may be helpful Fiber intake should include psyllium fiber; this is the type of fiber used in research studies for treatment of IBS Sources of psyllium include All-Bran psyllium buds, Metamucil, bulk psyllium ([employer]plerno stores and SurfEasy stores) Specifically we recommend starting Metamucil at a low dosage such as one teaspoon a day for one week then gradually increasing by one teaspoon per week until no further benefit with increasing dosageis achieved. Most patients take between 2 and 6 teaspoons per day. Fluid intake goal is 8-10 glasses/day (caffeine and alcohol count as minus one in calculation) Probiotics Promising area but convincing medical evidence is still lacking Txlm-yhm-cvryrbs supplements are not typically evaluated by FDA - quality/safety unclear and many products actually do not contain any probiotics at all Live-culture yogurts, kombucha and other dietary sources are an option Align, TuZen, and Visbiome are the three probiotics that are supported by medical research to have been shown benefit for IBS (available in most pharmacies, supermarkets or online) Florastor has been shown to benefit some post-infectious patients Psychology/Coping Skills Coping with chronic bothersome symptoms from functional disorders can be very challenging. Additionally it is not uncommon for functional disorders to contribute to feelings of stress, anxiety, and depression, which can actually worsen functional disorders. This can be a vicious cycle! Smartphone apps can be helpful for coping with IBS symptoms, and lessening the impact of stressors on IBS Headspace (anxiety/stress/mindfulness) Calm (anxiety/stress/mindfulness) CBT-I executive coach (insomnia/sleep problems) Curable (chronic pain) There is evidence for Cognitive Behavioral Therapy (CBT) for IBS - you can try this at home using aworkbook (Controlling IBS the Drug-Free Way: A 10-Step Plan for Symptom Relief by Joey Greenwood, Ph.D.) or work with a GI psychologist A local therapist may also be helpful for managing the impact of IBS and decreasing the likelihood that stressors will cause flares psychologytoday.[facility] ABCT.org ContextualScience.org Gut-directed hypnotherapy for IBS is also supported by research - you may find a provider at IBShyosis.efw-suhl OT Medications for Functional Gut Disorders Diarrhea Loperamide (Imodium) should be considered first for mild and intermittent symptoms - start with small doses and take several hours before needed (or even before bed) (it is generally considered safe for long-term use) Constipation Patients with mild constipation can use laxatives ???as needed?? (in other words, if you feel constipated or haven't had a regular bowel movement). However, patients with more severe constipation generally will need laxatives on a regular schedule (every day or every second day for example). This is called ???maintenance therapy?? . PEG 3350 (Miralax) is a stool softener that is safe for remote computer terminal operator usage (no risk of dependency) andthe dosage can be adjusted to achieve 1-2 soft bowel movements per day; you can take 17g twice daily if needed Milk of magnesia, magnesium supplements and lactulose are alternate stool softeners that are generally safe for regular use in most patients (you should ask your doctor though) Bisacodyl (Dulcolax) and senna (Senokot) are stimulant laxatives for occasional use only (they may lead to dependency with regular long-term use) Enemas and bowel preparations (e.g. Golytely) can be used to treat severe stool impaction ---- thisis called ???rescue therapy?? . Drink 2 litres in 4 hours in the evening then take another 2 litresover 4 hours the next morning. Alternately, you can mix 14 capfuls of Miralax with 64 oz (2 litres) of Gatorade. Drink half over 2hours in the evening then take the rest over 2 hours the next morning. After rescue therapy immediately begin aggressive ???maintenance therapy?? with the therapies above. Bloating/Pain Ensure constipation is completely treated - ongoing constipation is one of the most common causes for refractory pain and bloating in patients with a history of constipation Heating pad or hot-water bottle, exercise, , warm bath or shower, and warm beverages are all good treatments for painful bloating episodes Simethicone (Gas-X) can be helpful for occasional usage for painful bloating Peppermint oil may also be useful; a capsule form exists (IBgard) Tumeric may help with pain and bloating in some patients Acetominophen (Tylenol) is safest analgesic (pain reliever) on the GI tract NSAIDs (e.g. ibuprofen) can cause gut irritation/inflammation - it's best to use this type of pain reliever in low doses and frequency only While medical cannabis has been used to treat a variety of chronic pain disorders it has not been rigorously studied in functional disorders and may actually worsen symptoms in some patients. At thispoint we do NOT recommend using medical cannabis to treat functional disorders AVOID narcotics/opioids as they typically make symptoms much worse and there is a risk of addictionand/or dependence Heartburn/Nausea/Vomiting/Dyspepsia Weight loss, elevation of the head of the bed frame, cutting back on nicotine/alcohol/caffeine/fatty foods, and avoiding eating or drinking prior to bed may help with reflux symptoms OTC antacids can be used for mild and/or infrequent reflux symptoms Acid reducing medications such as proton-pump inhibitors (PPIs) and H2 blockers are effective at relieving reflux if persistent and bothersome symptoms despite dietary and lifestyle measures Chel and vitamin B6 may help with nausea L-carnitine, riboflavin, and coenzyme Q10 supplements have been reported to help some patients withchronic nausea and vomiting Capsaicin, turmeric, and FDgard (combination of peppermint and torrey) may help with after-meal bloating, fullness and discomfort If using cannabis (recreational or medical) consider stopping for at least a full month. While cannabis has been reported to help some patients with nausea, it may actually contribute to symptoms in some patients. Disclaimer This information is intended for educational purposes only It is not meant to replace direct patient-doctor care All medications should be used under the supervision of a Gastroenterology provider (local or ) or Primary Care Provider Authors are not liable for misuse/misinterpretation of this information Patient Resources [place] [employer] https://www.gastro.org/practice-guidance/hp-vzixlry-tytrbf/ topic/uexdyswwh-pkxla-kusgntni-ibs Badgut.org https://badgut.org/information-centre/e-q-fdueklois-topics/ibs/ AboutIBS.org https://www.aboutibs.org/ Uptodate.com https://www.BeepldaPlusmo.efw-suhl/contents/pfxfrniee-wszbf-wwkascoz-eteucc-vur-exfmcu documented in this encounter Progress Notes * Rolly Cook MD - 06/15/2023 3:00 PM EST [facility] TELEMEDICINE PROGRAM Chief Complaint: Nataliya Morfin is a 48 y.o. patient referred for consultation by Dr. Sherman ref. provider found for chronic diarrhea, DARRIUS History of Present Illness: 48 y.o. female with past medical history of chronic kidney disease (from chronic lithium), hyperparathyroidism, iron deficiency anemia, bipolar affective disorder, hypothyroidism She was seen by Lyssa Euceda with [facility] gastroenterology December 29, 2022 Chronically altered bowel movements -historically predominantly diarrhea. Variable course over timewith worsening 1-2 month again since taking antibiotic. Also noted recent increased stress with newjob. Currently 2-3 bowel movements per day. Can have associated urgency. No accidental bowel discharged. Associated generalized lower abdominal discomfort and bloating. No blood in stools or melena. Relatively new esophageal dysphagia for solids with intermittent sensation of food bolus obstruction requiring regurgitation or drinking water. Chronic heartburn and regurgitation. Only rare symptoms currently. No dyspepsia symptoms or nausea and vomiting. Appetite and weight stable. No NSAIDs. History of menorrhagia and irregular periods. Hgb dropped to 9.5 in September 2022. Ferritin low at 12 at that time. Treated with iron supplements - stopped 2 months ago Current Regimen: Imodium 2 mg - 2 to 4 pill prn Past Therapies: Alosetron (Lotronex) Review of systems: 14-point review of systems reviewed and negative except as above. Medications: Outpatient Medications Prior to Visit Medication Sig Dispense Refill buPROPion XL (Wellbutrin XL) 150 mg XL 24 hr tablet Take 1 tablet by mouth every morning. 90 tablet0 divalproex ER (Depakote ER) 250 mg ER 24 hr tablet 2 tabs BID. 120 tablet 02 levothyroxine (Synthroid) 75 mcg tablet Take 1 tablet by mouth every morning. 90 tablet 0 pilocarpine (Salagen) 5 mg tablet Take 1 tablet by mouth 3 times daily. 90 tablet 2 clonazePAM (KlonoPIN) 0.5 mg disintegrating tablet Take 0.5 mg by mouth daily as needed. acetaminophen (Tylenol) 500 mg tablet Take 1,000 mg by mouth every 6 hours as needed for Pain. cholecalciferol, Vitamin D3, 25 mcg (1,000 unit) Capsule Take 1,000 Units by mouth daily. Alosetron (Lotronex) 0.5 mg tablet Take 0.5 mg by mouth 2 times daily. No facility-administered medications prior to visit. Allergies: [...] Toe Surgery; Eye surgery; Upper GiEndoscopy, Biopsy (85579) (N/A, 06/11/2023); and Colonoscopy, Biopsy ([id number]) (N/A, 06/11/2023). Family History: family history includes [...] that she does not use drugs. Physical exam: No Physical Examination performed during this telemedicine visit Questionnaire: 06/14/2023 8:03 PM Q-[facility] BATTERY CDC Healthy Day Score 27 Work Absenteeism 0 Work Presenteeism 0 Laboratory studies, imaging, and procedures (in summary of my review of prior records): Collected: 06/11/23 9063 Result status: Final Resulting lab: [facility] Value: [facility] Procedure Date: 06/11/2023 3:11 PM Patient Name: Nataliya Morfin Date of : 1975 Age: 48 Order #: [id number] Instrument Name: [id number] Procedure: Upper GI endoscopy Indications: Iron deficiency anemia Providers: Jack Page MD, Iggy Bauer, Marce Bermeo, Ольга Gurrola, Rolly Maldonado Referring MD: Haylie Steward MD Medicines: Monitored Anesthesia Care Complications: No immediate complications. Procedure: Pre-Anesthesia Assessment: - Prior to the procedure, a History and Physical was performed, and patient medications, allergies and sensitivities were reviewed. The patient's tolerance of previous anesthesia was reviewed. - The risks and benefits of the procedure and the sedation options and risks were discussed with the patient. All questions were answered and informed consent was obtained. - Patient identification and proposed procedure were verified prior to the procedure by the physician, the nurse, the geologist petroleum and the computer forensics technician. The procedure was verified in the pre-procedure area in the endoscopy suite. - Pre-procedure physical examination revealed no contraindications to sedation. - ASA Grade Assessment: III - A patient with severe systemic disease. - After reviewing the risks and benefits, the patient was deemed in satisfactory condition to undergo the procedure. - Monitored anesthesia care under the supervision of a UNIVERSITY RELATIONS RECRUITER was determined to be medically necessary for this procedure based on severe comorbidity (greater than ASA Grade II) and patient's history of problems with anesthesia. The procedure, indications, benefits, risks and alternatives were explained to the patient. Specifically discussed were potential complications including, but not limited to, bleeding, perforation, infection, missing a cancer, and adverse medication reactions. The Endoscope was introduced through the mouth, and advanced to the third part of duodenum The upper GI endoscopy was accomplished without difficulty. The patient tolerated the procedure well. Findings: The Z-line was regular and was found 36 cm from the incisors. The esophagus was normal. The stomach was normal. Biopsies were taken with a cold forceps for Helicobacter pylori testing. The examined duodenum was normal. Biopsies for histology were taken with a cold forceps for evaluation of celiac disease. Moderate Sedation: See anesthesia notes. Impression: - Normal endoscopy without obvious upper GI source of chronic blood loss. - Gastric and duodenal biopsies obtained given history of iron deficiency anemia. Recommendation: - Await pathology results. - Proceed to colonoscopy. Collected: 06/11/23 1510 Result status: Corrected Resulting lab: [facility] Value: [facility] Procedure Date: 06/11/2023 3:10 PM Patient Name: Nataliya Morfin Date of : 1975 Age: 48 Order #: [id number] Instrument Name: [id number] Procedure: Colonoscopy Indications: Chronic diarrhea, Iron deficiency anemia, prior normal colo 2014 (including non-targeted colon biopsies) Providers: Jack Page MD, Iggy Bauer, Ольга Gurrola, Marce Bermeo, Rolly Maldonado Referring MD: Haylie Steward MD, Lyssa Euceda Medicines: Monitored Anesthesia Care Complications: No immediate complications. Procedure: Pre-Anesthesia Assessment: - Prior to the procedure, a History and Physical was performed, and patient medications, allergies and sensitivities were reviewed. The patient's tolerance of previous anesthesia was reviewed. - The risks and benefits of the procedure and the sedation options and risks were discussed with the patient. All questions were answered and informed consent was obtained. - Patient identification and proposed procedure were verified prior to the procedure by the physician, the nurse, the geologist petroleum and the computer forensics technician. The procedure was verified in the pre-procedure area in the endoscopy suite. - Pre-procedure physical examination revealed no contraindications to sedation. - ASA Grade Assessment: III - A patient with severe systemic disease. - After reviewing the risks and benefits, the patient was deemed in satisfactory condition to undergo the procedure. - Monitored anesthesia care under the supervision of a UNIVERSITY RELATIONS RECRUITER was determined to be medically necessary for this procedure based on severe comorbidity (greater than ASA Grade II) and patient's history of problems with anesthesia. The procedure, indications, benefits, risks and alternatives were explained to the patient. Specifically discussed were potential complications including, but not limited to, bleeding, perforation, infection, missing a cancer, and adverse medication reactions. The patient was placed in the left lateral decubitus position, and a digital rectal exam was performed. The Colonoscope was inserted in the anus and under direct visualization, advanced to the terminal ileum. Careful inspection was made as the colonoscope was withdrawn. The colonoscopy was performed without difficulty. The patient tolerated the procedure well. The quality of the bowel preparation was evaluated using the BBPS ([place] Bowel Preparation Scale) with scores of: Right Colon = 3 (entire mucosa seen well with no residual staining, small fragments of stool or opaque liquid), Transverse Colon = 3 (entire mucosa seen well with no residual staining, small fragments of stool or opaque liquid) and Left Colon = 3 (entire mucosa seen well with no residual staining, small fragments of stool or opaque liquid). The total BBPS score equals 9. The quality of the bowel preparation was excellent. The terminal ileum, ileocecal valve, appendiceal orifice, and rectum were photographed. Scope withdrawal time was 7 minutes. Findings: The terminal ileum appeared normal. The colonic mucosa appeared normal throughout. Biopsies for histology were taken with a cold forceps from the ascending colon, transverse colon, descending colon and sigmoid colon for evaluation of microscopic colitis. No polyps. Moderate Sedation: See anesthesia notes. Impression: - No obvious lower GI sources of chronic blood loss. - No overt ileitis or colitis to explain chronic diarrhea. - Non-targeted colon biopsies taken to rule out microscopic colitis. - Suspect iron deficiency anemia was in setting of abnormal uterine bleeding rather than GI losses. Consider evaluation for small bowel sources of blood loss if iron deficiency recurs in absence of uterine bleeding. Recommendation: - Patient has a contact number available for emergencies. The signs and symptoms of potential delayed complications were discussed with the patient. Return to normal activities tomorrow. Written discharge instructions were provided to the patient. - Await pathology results. - OK to use loperamide (Imodium) as needed (up to 16 mg total daily dose) for constipation. - Follow-up with Ms. Euceda in GI clinic to discuss further testing and next-line medications if diarrhea persists despite Imodium. - Repeat average-risk colorectal cancer screening in 10 years. Pathology still pending Assessment/Plan: Ms. Morfin is a 48 y.o. [...] functional disorders Consider referral to GI dietitian I will arrange a follow-up appointment after the above investigations to review the results and consolidate the diagnosis. Please note that generally specific treatment recommendations will not be discussed at that time. An additional follow-up appointment with a motility JAZMIN will be scheduled after this appointment to discuss specific recommendations for management. Patients should continue to work on general measures provided in our handout while awaiting this appointment. We also discussed the collaborative care model of the [facility] GI motility program. The patient should continue to work with their PCP +/- local GI as the primary point(s) of contact for urgent issues, medication refills and adjustments as needed for continuity of care purposes in between visits to our center based on the recommendations above. Recommend PCP to refer to local GI if patient does not have a local GI currently. Yearly or bi-yearly visits with a member of the motility team may be available for co-management purposes depending upon the specific circumstances of the patient's medical condition. RTC with me in after testing completed The patient was located in [place] at the time of their visit. TIME SPENT WITH PATIENT Time spent reviewing records prior to this encounter on day of appointment: 5 minutes Time spent during encounter with patient including counselin minutes Time spent documenting encounter after office visit: 5 minutes Rolly Cook MD [facility] [place] [address] documented in this encounter Plan of Treatment Upcoming Encounters Date Type Department Care Team (Latest Contact Info) Description 04/22/2024 9:45 AM EST Scheduled View Only Radiation Oncology at [address] [phone] 04/25/2024 8:30 AM EST Scheduled View Only Radiation Oncology at [address] [address] 04/26/2024 3:00 PM EST Scheduled View Only Radiation Oncology at [address] [address] 04/26/2024 3:30 PM EST Office Visit Radiation Oncology at [address] [phone] Ofe Fonseca MD [facility] [place] [address] 04/28/2024 2:45 PM EST Scheduled View Only Radiation Oncology at [address] [phone] 04/29/2024 3:00 PM EST Scheduled View Only Radiation Oncology at [address] [address] 05/02/2024 3:45 PM EST Scheduled View Only Radiation Oncology at [address] [address] 05/03/2024 1:45 PM EST Scheduled View Only Radiation Oncology at [address] [address] 05/03/2024 2:15 PM EST Office Visit Radiation Oncology at [address] [address] Ofe Fonseca MD [facility] [place] [address] 05/05/2024 8:15 AM EST Scheduled View Only Radiation Oncology at [address] [address] 05/06/2024 12:30 PM EST Scheduled View Only Radiation Oncology at [address] [address] 05/09/2024 3:00 PM EST Scheduled View Only Radiation Oncology at [address] [address] 05/10/2024 2:30 PM EST Scheduled View Only Radiation Oncology at [address] [address] 05/10/2024 3:15 PM EST Office Visit Radiation Oncology at [address] [phone] Ofe Fonseca MD [facility] [place] [address] 05/11/2024 2:45 PM EST Scheduled View Only Radiation Oncology at [address] [phone] 06/03/2024 3:30 PM EST Appointment Ultrasound at [place] [phone] Mira Hutchison APRN [facility] [place] [address] 06/23/2024 4:00 PM EST Appointment Mammography/DXA at [place] [phone] Miryam Feliciano MD [facility] [place] [address] 07/12/2024 8:00 AM EDT Laboratory Appointment Lab [address] [place] [address] 07/12/2024 9:30 AM EDT Office Visit Nephrology [place] [phone] Sharmin Jean-Baptiste, [facility] [place] [address] 07/13/2024 10:30 AM EDT Laboratory Appointment Lab at [facility] Hematology Oncology [address] [place] [phone] 07/13/2024 11:30 AM EDT Office Visit Hematology [place] [phone] Salena Alvares, [facility] [place] [address] 07/13/2024 12:45 PM EDT Appointment Hematology [place] [phone] Scheduled Orders Name Type Priority Associated Diagnoses Orde r Schedule High Resolution Esophageal Manometry GI Routine Dysphagia, unspecified type Expected: 06/15/2023, Expires: 12/15/2023 documented as of this encounter Results * MRI Enterography wwo Contrast (06/25/2023 6:04 PM EST) Anatomical Region Laterality Modality Abdomen Magnetic Resonan ce Impressions 06/26/2023 11:43 AM EST 1. ??No evidence of active inflammatory bowel disease. 2. ??Enlarged fibroid uterus including a 9 cm posterior fibroid compressing/displacing the rectum. This measures slightly larger compared to ultrasounds from 2022. Consider PROCESS CONTROL OPERATOR consultation. 3. ??Numerous bilateral renal cysts consistent with history of lithium usage. I have personally reviewed the image(s) and the resident's interpretation and agree with the findings, Wenceslao Barksdale MD at 06/26/2023 11:43 AM Thank you for letting us participate in the care of this patient. ??If you are a health care provider and have any questions regarding this report, please contact the number below. ??For patients who have questions please contact the health health care technician that requested your imaging first. ? Electronically signed by: Wenceslao Barksdale MD, [facility] ([phone]), at 06/26/2023 11:43 AM Narrative 06/26/2023 11:43 AM EST EXAMINATION: MRI ENTEROGRAPHY WWO CONTRAST CLINICAL HISTORY: diarrhea - rule out crohn's K58.2, Mixed irritable bowel syndrome TECHNIQUE: ??MRI of the abdomen and pelvis prior to and following the intravenous administration of 12ml of Dotarem. ??0.5mg glucagon was also administered. Breeza was administered [...] rectum. Osseous structures: No marrow signal abnormality. Procedure Note Wenceslao Barksdale MD - 06/26/2023 EXAMINATION: MRI ENTEROGRAPHY WWO CONTRAST CLINICAL HISTORY: diarrhea - rule out crohn's K58.2, Mixed irritable bowel syndrome TECHNIQUE: MRI of the abdomen and pelvis prior to and following theintravenous administration of 12ml of Dotarem. 0.5mg glucagon was also administered. Breeza was administered as an oral contrast. COMPARISON: None FINDINGS: GI tract: No dilated small or large bowel, bowel wall thickening, ormesenteric inflammation. No mural edema or hyperenhancement. Liver: Normal signal. Multiple punctate T2 hyperintense nonenhancinglesions, consistent with cysts. Bile ducts: Nondilated. Gallbladder: Cholelithiasis. Normal caliber wall. No pericholecysticfluid. Pancreas: Normal. Spleen: Normal. Adrenals: Normal. Kidneys: Symmetric nephrograms. No hydronephrosis. Numerous bilateral T2 hyperintense, nonenhancing lesions consistent with cysts. There is a T1 hyperintense, T2 hypointense, nonenhancing left upper pole lesionconsistent with a proteinaceous or hemorrhagic cyst. Lymph nodes: No lymphadenopathy. Reproductive structures: Enlarged fibroid uterus with the largestposterior subserosal fibroid measuring 9 cm in diameter and compressing/ displacingthe rectum. Osseous structures: No marrow signal abnormality. IMPRESSION 1. No evidence of active inflammatory bowel disease. 2. Enlarged fibroid uterus including a 9 cm posterior fibroid compressing/displacing the rectum. This measures slightly larger comparedto ultrasounds from 2022. Consider PROCESS CONTROL OPERATOR consultation. 3. Numerous bilateral renal cysts consistent with history of lithiumusage. I have personally reviewed the image(s) and the resident's interpretationand agree with the findings, Wenceslao Barksdale MD at 06/26/2023 11:43 AM Thank you for letting us participate in the care of this patient. If youare a health care provider and have any questions regarding this report,please contact the number below. For patients who have questions please contactthe health health care technician that requested your imaging first. Electronically signed by: Wenceslao Barksdale MD, [facility]([phone]), at 06/26/2023 11:43 AM Rolly Cook MD [facility] MRI ORDERABLES * Elastase, Stool (06/18/2023 7:58 AM EST) Pathologist [facility] Elastase Stool (QST) 485 mcg/g [facility] Comment: Adult and Pediatric Reference Ranges for ??Pancreatic Elastase-1: ? Normal: ?>200 mcg/g Moderate Pancreatic ?Insufficiency: ?? 100-200 mcg/g ??Severe Pancreatic ?Insufficiency: ?<100 mcg/g Elastase-1 (E-1) assay results are expressed in mcg/g, which represent mcg E1/g feces. It is not necessary to interrupt enzyme substitution therapy. Test performed by [facility] [place] ?[id number], ?[place] [address] ? National Van Owner Operator: Annemarie Coon MD,PHD,DEANN Test Reported by Ludivina Montero, [facility], [id number] [place] [address] Arnulfo Sarah M.D., Ph.D., Director of Laboratories , [facility] [id number] Stool 06/18/2023 7:58 AM EST 06/18/2023 2:33 PM EST Narrative Resulting Agency Comment Spec In Lab Rolly Cook MD LAB SEND OUT ORDERAB LES [facility] [place] [address] * Giardia/Cryptosporidium Antigens (MC/CGP/APD/NLH) (06/18/2023 7:58 AM EST) [facility] Giardia Antigen Negative Negative [facility] Comment:Examination for othe r intestinal parasites requires foreign travel history. Cryptosporidium Antigen Negative Negative [facility] Stool 06/18/2023 7:58 AM EST 06/18/2023 1:09 PM EST Narrative Resulting Agency Comment Spec In Lab Rolly Cook MD MICROBIOLOGY - GENER AL ORDERABLES [facility] [place] [address] documented in this encounter Visit Diagnoses Diagnosis Dysphagia, unspecified type Irritable bowel syndrome with both constipation and diarrhea Irritable bowel syndrome with both constipation and diarrhea documented in this encounter Care Teams Operation Agent Relationship Specialty Start Date End [place] [address] PCP - General General Internal Medicine 08/04/22 documented as of this encounter
--- OUTSIDE RECORDS SUMMARY | 2024-04-22 00:23 | XMS_ITS | Encounter Summary ---
[place] [address] Care Team Providers Care Manager Transmission Name Role Phone Haylie Steward MD Primary Care Provider [phone] Encounter Details Date Type Department Care Team (Latest Contact Info) Description 07/06/2023 7:50 AM EST Laboratory Appointment Lab [address] [place] [phone] Bipolar 1 disorder Social History Tobacco Use [...] EST Scheduled View Only Radiation Oncology at [address] [phone] 04/25/2024 8:30 AM EST Scheduled View Only Radiation Oncology at [address] [phone] 04/26/2024 3:00 PM EST Scheduled View Only Radiation Oncology at [address] [phone] 04/26/2024 3:30 PM EST Office Visit Radiation Oncology at [address] [phone] Ofe Fonseca MD [facility] [place] [address] 04/28/2024 2:45 PM EST Scheduled View Only Radiation Oncology at [address] [phone] 04/29/2024 3:00 PM EST Scheduled View Only Radiation Oncology at [address] [address] 05/02/2024 3:45 PM EST Scheduled View Only Radiation Oncology at [address] [phone] 05/03/2024 1:45 PM EST Scheduled View Only Radiation Oncology at [address] [phone] 05/03/2024 2:15 PM EST Office Visit Radiation Oncology at [address] [phone] Ofe Fonseca MD [facility] [place] [address] 05/05/2024 8:15 AM EST Scheduled View Only Radiation Oncology at [address] [phone] 05/06/2024 12:30 PM EST Scheduled View Only Radiation Oncology at [address] [phone] 05/09/2024 3:00 PM EST Scheduled View Only Radiation Oncology at [address] [phone] 05/10/2024 2:30 PM EST Scheduled View Only Radiation Oncology at [address] [phone] 05/10/2024 3:15 PM EST Office Visit Radiation Oncology at [address] [phone] Ofe Fonseca MD [facility] [place] [address] 05/11/2024 2:45 PM EST Scheduled View Only Radiation Oncology at [address] [phone] 06/03/2024 3:30 PM EST Appointment Ultrasound at [place] [phone] Mira Hutchison, [facility] [place] [address] 06/23/2024 4:00 PM EST Appointment Mammography/DXA at [place] [phone] Miryam Feliciano MD [facility] [place] [address] 07/12/2024 8:00 AM EDT Laboratory Appointment Lab [place] [phone] 07/12/2024 9:30 AM EDT Office Visit [place] [phone] Sharmin Jean-Baptiste, [facility] [address] 07/13/2024 10:30 AM EDT Laboratory Appointment Lab at [facility] Hematology Oncology [address] [place] [phone] 07/13/2024 11:30 AM EDT Office Visit Hematology [place] [address] Salena Alvares APRN [facility] [place] [address] 07/13/2024 12:45 PM EDT Appointment Hematology [place] [address] documented as of this encounter Procedures Procedure Name Priority Date/Time Associated Diagnosis Comments VALPROIC ACID LEVEL, TOTAL Routine 07/06/2023 8:03 AM EST Bipolar 1 disorder documented in this encounter Results * Valproic Acid Level, Total (07/06/2023 8:03 AM EST) Valproic Acid 90 mg/L [facility] Comment: Therapeutic Range: Anticonvulsant Therapy: ??50-100 mg/L Manic Episodes Associated with Bipolar Disorder: ??50-125 mg/L Blood 07/06/2023 8:03 AM EST 07/06/2023 8:23 AM EST Narrative Resulting Agency Comment Spec In Lab Michelet Monge MD CHEMISTRY ORDERABLES [facility] [place] [address] documented in this encounter Visit Diagnoses Diagnosis Bipolar 1 disorder Bipolar I disorder, most recent episode (or current) unspecified documented in this encounter Care Teams Manager Transmission Relationship Specialty Start Date End Date Haylie Steward MD [facility] [place] [address] PCP - General General Internal Medicine 08/04/22 documented as of this encounter
--- OUTSIDE RECORDS SUMMARY | 2024-04-22 00:23 | XMS_ITS | Encounter Summary ---
Author Organization [facility] [place] [address] Care Team Providers Care Motion Picture Director Name Role Phone Haylie Steward MD Primary Care Provider [phone] Encounter Details Date Type Department Care Team (Latest Contact Info) Description 06/09/2023 Travel Social History Tobacco Use Types Packs/Day [...] Scheduled View Only Radiation Oncology at [address] [phone] 04/25/2024 8:30 AM EST Scheduled View Only Radiation Oncology at [address] [phone] 04/26/2024 3:00 PM EST Scheduled View Only Radiation Oncology at [address] [phone] 04/26/2024 3:30 PM EST Office Visit Radiation Oncology at [address] [phone] Ofe Fonseca MD [facility] [place] [address] 04/28/2024 2:45 PM EST Scheduled View Only Radiation Oncology at [address] [phone] 04/29/2024 3:00 PM EST Scheduled View Only Radiation Oncology at [address] [address] 05/02/2024 3:45 PM EST Scheduled View Only Radiation Oncology at [address] [phone] 05/03/2024 1:45 PM EST Scheduled View Only Radiation Oncology at [address] [phone] 05/03/2024 2:15 PM EST Office Visit Radiation Oncology at [address] [phone] Ofe Fonseca MD [facility] [place] [address] 05/05/2024 8:15 AM EST Scheduled View Only Radiation Oncology at [address] [address] 05/06/2024 12:30 PM EST Scheduled View Only Radiation Oncology at [address] [phone] 05/09/2024 3:00 PM EST Scheduled View Only Radiation Oncology at [address] [phone] 05/10/2024 2:30 PM EST Scheduled View Only Radiation Oncology at [address] [address] 05/10/2024 3:15 PM EST Office Visit Radiation Oncology at [address] [phone] Ofe Fonseca MD [facility] [place] [address] 05/11/2024 2:45 PM EST Scheduled View Only Radiation Oncology at [address] [phone] 06/03/2024 3:30 PM EST Appointment [place] [phone] Mira Hutchison, [facility] [place] [address] 06/23/2024 4:00 PM EST Appointment Mammography/[place] [phone] Miryam Feliciano MD [facility] [place] [address] 07/12/2024 8:00 AM EDT Laboratory Appointment Lab [address] [place] [phone] 07/12/2024 9:30 AM EDT Office Visit Neph[place] [phone] Sharmin Jean-Baptiste [facility] [place] [address] 07/13/2024 10:30 AM EDT Laboratory Appointment Lab at [facility] Hematology Oncology [address] [place] [phone] 07/13/2024 11:30 AM EDT Office Visit Hematology [place] [address] Salena Alvares APRN [facility] [place] [address] 07/13/2024 12:45 PM EDT Appointment Hematology [place] [phone] documented as of this encounter Visit Diagnoses Not on filedocumented in this encounter Care Teams Motion Picture Director Relationship Specialty Start Date End [place] [address] PCP - General General Internal Medicine 08/04/22 documented as of this encounter
--- OUTSIDE RECORDS SUMMARY | 2024-04-22 00:23 | XMS_ITS | Encounter Summary ---
Author Organization [facility] Address [facility] [place] [address] Care Team Providers Care Drawing Hand Name Role Phone Haylie Steward MD Primary Care Provider + [phone] Encounter Details Date Type Department Care Team (Late st Contact Info) Description 06/11/2023 2:15 PM EST - 06/11/2023 3:15 PM EST [place] [address] Jack Page MD [facility] [place] [address] EGD WITH BIOPSY (WRVU 2.39) Social History Tobacco Use Types Packs/Day Years Used Date Smoking Tobacco: Never Smokeless Tobacco: Never Alcohol Use Standard Drinks/Week Comments Not Currently 0 (1 standard drink = 0.6 oz pur e alcohol) [facility] Inpatient Questions Answer Date Recorded Does Anyone [...] Sign Reading Time Taken Comments Blood Pressure - - Pulse 73 06/11/2023 1:59 PM EST Temperature 36.5 ??C (97.7 ??F) 06/11/2023 1:59 PM ES T Respiratory Rate 16 06/11/2023 1:59 PM EST Oxygen Saturation 100% 06/11/2023 1:59 PM EST Inhaled Oxygen Concentration - - [...] the day after the test, use an pvnw-bbi-brmfdrk spray or lozenges to numbyour throat. Warm [...] occurs, please contact your doctor. Please call [phone] before 8pm Mon-Fri with problems, questions, or concerns. If you call after 8pm or on weekends, call the Hospital at [phone] and ask for the Motor Power Connector compensation coordinator and the plugging machine operator will contact that person for you. When should you call for help? Call 446 anytime you think you may need emergency [...] more? You can view health information on [employer], your personal patient account. Log in or sign up today. Content Version: 12.2 ?? [id number] [employer]. Care instructions adapted under license by [facility]. If you have questions about a medical condition or this instruction, always ask your healthcare professional. [employer] disclaims any warranty or liability for your [...] disease (CKD) N18.31 Hyperparathyroidism E21.3 Anemia D64.9 Poneto intoxication, accidental or unintentional, initial encounter T56.891A [...] Scheduled View Only Radiation Oncology at [address] [phone] 04/25/2024 8:30 AM EST Scheduled View Only Radiation Oncology at [address] [address] 04/26/2024 3:00 PM EST Scheduled View Only Radiation Oncology at [address] [phone] 04/26/2024 3:30 PM EST Office Visit Radiation Oncology at [address] [phone] Ofe Fonseca MD [facility] [place] [address] 04/28/2024 2:45 PM EST Scheduled View Only Radiation Oncology at [address] [phone] 04/29/2024 3:00 PM EST Scheduled View Only Radiation Oncology at [address] [address] 05/02/2024 3:45 PM EST Scheduled View Only Radiation Oncology at [address] [address] 05/03/2024 1:45 PM EST Scheduled View Only Radiation Oncology at [address] [address] 05/03/2024 2:15 PM EST Office Visit Radiation Oncology at [address] [phone] Ofe Fonseca MD [facility] [place] [address] 05/05/2024 8:15 AM EST Scheduled View Only Radiation Oncology at [address] [address] 05/06/2024 12:30 PM EST Scheduled View Only Radiation Oncology at [address] [address] 05/09/2024 3:00 PM EST Scheduled View Only Radiation Oncology at [address] [address] 05/10/2024 2:30 PM EST Scheduled View Only Radiation Oncology at [address] [address] 05/10/2024 3:15 PM EST Office Visit Radiation Oncology at [address] [phone] Ofe Fonseca MD [facility] [place] [address] 05/11/2024 2:45 PM EST Scheduled View Only Radiation Oncology at [address] [phone] 06/03/2024 3:30 PM EST Appointment Ultrasound at [place] [phone] Mira Hutchison [facility] [place] [address] 06/23/2024 4:00 PM EST Appointment Mammography/DXA at [place] [phone] Miryam Feliciano MD [facility] [place] [address] 07/12/2024 8:00 AM EDT Laboratory Appointment Lab [address] [place], [place] [phone] 07/12/2024 9:30 AM EDT Office Visit Nephrology Hypertension at [place] [phone] Sharmin Jean-Baptiste [facility] [place] [address] 07/13/2024 10:30 AM EDT Laboratory Appointment Lab at [facility] Hematology Oncology [address] [place] [phone] 07/13/2024 11:30 AM EDT Office Visit Hematology and Oncology at [place] [phone] Salena Alvares [facility] [place] [address] 07/13/2024 12:45 PM EDT Appointment Hematology and Oncology at [facility] [place] [address] documented as of this encounter Procedures Procedure Name Priority Date/Time Associated Diagnosis Comments SPECIMEN TO PATHOLOGY Routine 06/11/2023 4:05 PM EST SPECIMEN TO PATHOLOGY Routine 06/11/2023 3:51 PM EST SPECIMEN TO PATHOLOGY Routine 06/11/2023 3:51 PM EST SURGICAL PATHOLOGY REPORT Routine 06/11/2023 3:45 PM EST Colonoscopy, Biopsy ([id number]) 06/11/2023 3:27 PM EST Iron deficiency anemia, unspecified iron deficiency anemia type Upper Gi Endoscopy, Biopsy ([id number]) 06/11/2023 3:27 PM EST Iron deficiency anemia, unspecified iron deficiency anemia type UPPER GI ENDOSCOPY Routine 06/11/2023 3: 11 PM EST COLONOSCOPY Routine 06/11/2023 3:10 PM EST documented in this encounter Results * Specimen to Pathology (06/11/2023 4:05 PM EST) AP Specimen 06/11/2023 4:05 PM EST 06/11/2023 4:05 PM EST Narrative [facility] - 06/11/2023 4:05 PM EST Specimen requisition ordered. ??Separate Pathology report to follow Jack Page MD PATHOLOGY/CYTOLOGY O PADMINI [facility] [place] [address] * Specimen to Pathology (06/11/2023 3:51 PM EST) AP Specimen 06/11/2023 3:51 PM EST 06/11/2023 3:51 PM EST Narrative [facility] - 06/11/2023 3:51 PM EST Specimen requisition ordered. ??Separate Pathology report to follow Iggy Bauer MD PATHOLOGY/CYTOLOGY ORDERABLES Performing Organization Address [facility] [place] [address] * Specimen to Pathology (06/11/2023 3:51 PM EST) AP Specimen 06/11/2023 3:51 PM EST 06/11/2023 3:51 PM EST Narrative [facility] - 06/11/2023 3:51 PM EST Specimen requisition ordered. ??Separate Pathology report to follow Iggy Bauer MD PATHOLOGY/CYTOLOGY ORDERABLES Performing Organization Address [facility] [place] [address] * Surgical Pathology Report (06/11/2023 3:45 PM EST) Final Diagnosis [id number] ? Location: 4T; EA06; A The signing [...] within normal limits. CR-PX Electronically signed by: ?Sil Maguire MD Verified: ??06/17/2023 14:46 ??Pathologist Performed at: ??-[facility] Dept. of Pathology, [place] [address] Sr. Payroll Processor: Eileen Singleton MD, FCAP, ??CLIA Certificate: [id number] SPECIMEN(S) SUBMITTED A - duodenum biopsies. ??R/O [...] labeled C1-C2. ??sdy 06/17/2023 2:[address] [facility] GI Biopsy 06/11/2023 3:45 PM EST 06/11/2023 3:45 PM EST GI Biopsy 06/11/2023 3:45 PM EST 06/11/2023 3:45 PM EST GI Biopsy 06/11/2023 3:45 PM EST 06/11/2023 3:45 PM EST Iggy Bauer MD PATHOLOGY/CYTOLOGY ORDERABLES [facility] [place] [id number] [facility] [place] [address] * UPPER GI ENDOSCOPY (06/11/2023 3:11 PM EST) UPPER GI ENDOSCOPY [facility] Endoscopy Procedure Date: 06/11/2023 3:11 PM ? Patient Name: Nataliya Morfin ? Date of : 1975 ? Age: 48 ? Order #: [id number] ? Instrument Name: [id number]- [id number] ? Procedure: ? Upper GI endoscopy Indications: [...] the ? physician, the nurse, the ? shovel operator and the renal technician. The ? procedure was verified in [...] care under ? the supervision of a DIRECT SUPPORT PROFESSIONAL was ? determined to be medically ? [...] * COLONOSCOPY (06/11/2023 3:10 PM EST) COLONOSCOPY [facility] Endoscopy Procedure Date: 06/11/2023 3:10 PM ? Patient Name: Nataliya Morfin ? Date of : 1975 ? Age: 48 ? Order #: [id number] ? Instrument Name: [id number]- [id number] ? Procedure: ? Colonoscopy Indications: ? Chronic diarrhea, Iron deficiency ? anemia, prior normal colo 2014 ? (including non-targeted colon ? biopsies) Providers: ? Jack Page MD, Iggy Mason ? Ольга Bauer, Marce ? Rolly Bermeo MD: ?Haylie Steward MD, Lyssa Bland. ? [place] Medicines: ? Monitored Anesthesia Care Complications: ? [...] the ? physician, the nurse, the ? shovel operator and the renal technician. The ? procedure was verified in [...] care under ? the supervision of a DIRECT SUPPORT PROFESSIONAL was ? determined to be medically ? [...] preparation was evaluated ? using the BBPS ([place] Bowel ? Preparation Scale) with scores of: [...] PR[employer]ATION documented in this encounter Visit Diagnoses Diagnosis Iron deficiency anemia, unspecified iron deficiency anemia type documented in this encounter Administered Medications Inactive [...] CRNA) documented in this encounter Care Teams Drawing Hand Relationship Specialty Start Date End Date [place] [address] PCP - General General Internal Medicine 08/04/22 documented as of this encounter
--- OUTSIDE RECORDS SUMMARY | 2024-04-22 00:23 | XMS_ITS | Encounter Summary ---
[place] [address] Care Team Providers Care Credit Historian Name Role Phone Haylie Steward MD Primary Care Provider [phone] Reason for Referral * Diagnostic Test (Routine) - Closed Specialty Diagnoses / Procedures Referred By Contac t Referred To Contact Radiology Diagnoses Irritable bowel syndrome with both constipation and diarrhea Procedures MRI Enterography wwo Contrast Rolly Cook MD [facility] [place] [address] [place] [address] Referral ID Status Reason Start Date Expiration Date V isits Requested Visits Authorized [id number] Closed Specialty Service Requested 06/15/2023 12/13/2024 1 1 Reason for Visit * Diagnostic Test (Routine) - Closed Specialty Diagnoses / Procedures Referred By Contac t Referred To Contact Radiology Diagnoses Irritable bowel syndrome with both constipation and diarrhea Procedures MRI Enterography wwo Contrast Rolly Cook MD [facility] [place] [address] [place] [address] Referral ID Status Reason Start Date Expiration Date V isits Requested Visits Authorized [id number] Closed Specialty Service Requested 06/15/2023 12/13/2024 1 1 Encounter Details Date Type Department Care Team (Latest Contact Info) Description 06/25/2023 2:58 PM EST - 06/25/2023 11:59 PM EST Hospital Encounter MRI [place] [place] [address] Rolly Cook MD [facility] [place] [address] Irritable bowel syndrome with both constipation and diarrhea Discharge Disposition: Home Social History Tobacco Use Types Packs/Day Years Used Date Smoking Tobacco: Never Smokeless Tobacco: Never Alcohol Use Standard Drinks/Week Comments Not Currently 0 (1 standard drink = 0.6 oz pur e alcohol) [facility] Inpatient Questions Answer Date Recorded Does [...] Scheduled View Only Radiation Oncology at [address] [address] 04/25/2024 8:30 AM EST Scheduled View Only Radiation Oncology at [address] [address] 04/26/2024 3:00 PM EST Scheduled View Only Radiation Oncology at [address] [phone] 04/26/2024 3:30 PM EST Office Visit Radiation Oncology at [address] [phone] Ofe Fonseca MD [facility] [place] [address] 04/28/2024 2:45 PM EST Scheduled View Only Radiation Oncology at [address] [phone] 04/29/2024 3:00 PM EST Scheduled View Only Radiation Oncology at [address] [address] 05/02/2024 3:45 PM EST Scheduled View Only Radiation Oncology at [address] [phone] 05/03/2024 1:45 PM EST Scheduled View Only Radiation Oncology at [address] [phone] 05/03/2024 2:15 PM EST Office Visit Radiation Oncology at [address] [phone] Ofe Fonseca MD [facility] [place] [address] 05/05/2024 8:15 AM EST Scheduled View Only Radiation Oncology at [address] [phone] 05/06/2024 12:30 PM EST Scheduled View Only Radiation Oncology at [address] [address] 05/09/2024 3:00 PM EST Scheduled View Only Radiation Oncology at [address] [address] 05/10/2024 2:30 PM EST Scheduled View Only Radiation Oncology at [address] [address] 05/10/2024 3:15 PM EST Office Visit Radiation Oncology at [address] [phone] Ofe Fonseca MD [facility] [place] [address] 05/11/2024 2:45 PM EST Scheduled View Only Radiation Oncology at [address] [phone] 06/03/2024 3:30 PM EST Appointment [place] [phone] Mira Hutchison APRN [facility] [address] 06/23/2024 4:00 PM EST Appointment Mammography/[place] [phone] Miryam Feliciano MD [facility] [place] [address] 07/12/2024 8:00 AM EDT Laboratory Appointment Lab [address] [address] 07/12/2024 9:30 AM EDT Office Visit Neph[place] [phone] Sharmin Jean-Baptiste, [facility] [place] [address] 07/13/2024 10:30 AM EDT Laboratory Appointment Lab at [facility] Hematology Oncology [address] [place] [phone] 07/13/2024 11:30 AM EDT Office Visit Hematology [place] [phone] Salena Alvares, [facility] [place] [address] 07/13/2024 12:45 PM EDT Appointment Hematology [place] [address] documented as of this encounter Procedures Procedure Name Priority Date/Time Associated Diagnosis Comments MRI ENTEROGRAPHY WITH/WO CONTRAST Routine 06/25/2023 6:04 PM EST Irritable bowel syndrome with both constipation and diarrhea documented in this encounter Results * MRI Enterography wwo Contrast (06/25/2023 6:04 PM EST) Anatomical Region Laterality Modality Abdomen Magnetic Resonan ce Impressions 06/26/2023 11:43 AM EST 1. ??No evidence of active inflammatory bowel disease. 2. ??Enlarged fibroid uterus including a 9 cm posterior fibroid compressing/displacing the rectum. This measures slightly larger compared to ultrasounds from 2022. Consider MIS SPECIALIST consultation. 3. ??Numerous bilateral renal cysts consistent [...] who have questions please contact the health medicare biller that requested your imaging first. ? Narrative 06/26/2023 11:43 AM EST EXAMINATION: MRI [...] slightly larger comparedto ultrasounds from 2022. Consider MIS SPECIALIST consultation. 3. Numerous bilateral renal cysts consistent [...] patients who have questions please contactthe health medicare biller that requested your imaging first. Rolly Cook MD IMG MRI ORDERABLES documented in this encounter Visit Diagnoses Diagnosis Irritable bowel syndrome with both constipation and diarrhea documented in this encounter Administered Medications Inactive Administered Medications - up to 3 most recent administrations Medication Order MAR Action Action Date Dose Rate Site flavored contrast (BREEZA) oral liquid 1,500 mL 1,500 mL, Oral, ONCE PRN, 1 dose, Starting on Yaneth 06/25/23 at 1803, Until Yaneth 06/25/23 at 1803, Per Protocol, Radiology Contrast, Routine Given 06/25/2023 6:03 PM EST 1,500 mLs gadoterate meglumine (Dotarem) (0.5 mMol/mL) injection solution 0-100 mL 0-100 mL, Intravenous, ONCE PRN, 1 dose, Starting on Yaneth 06/25/23 at 1802, Until Yaneth 06/25/23 at 1803, Per Protocol, Radiology Contrast, Routine Given 06/25/2023 6:03 PM EST 12 mLs glucagon (Glucagen) (1 mg/mL) injection solution 0.5 mg 0.5 mg, Intramuscular, ONCE, 1 dose, On Yaneth 06/25/23 at 0730, Radiology Protocol Medication, Routine Given 06/25/2023 5:30 PM EST 0.5 mg Left Deltoid documented in this encounter Care Teams Credit Historian Relationship Specialty Start Date End [place] [address] PCP - General General Internal Medicine 08/04/22 documented as of this encounter
--- OUTSIDE RECORDS SUMMARY | 2024-04-22 00:23 | XMS_ITS | Encounter Summary ---
Author Organization [facility] [place] [address] Care Team Providers Care Welt Cutter Name Role Phone Haylie Steward MD Primary Care Provider + [phone] Encounter Details Date Type Department Care Team (Late st Contact Info) Description 07/07/2023 1:00 PM EST Office [place] [phone] Angela Heredia MD [facility] [place] [address] Stage 3b chronic kidney disease; Hypothyroidism, acquired; Hypercalcemia; Hyperparathyroidism Social History Tobacco Use Types Packs/Day [...] Sign Reading Time Taken Comments Blood Pressure 124/81 07/07/2023 12:45 PM EST Pulse 68 07/07/2023 12:45 PM EST Temperature 36.9 ??C (98.4 ??F) 07/07/2023 12:[address] Respiratory Rate - - Oxygen Saturation 99% 07/07/2023 12:45 PM EST Inhaled Oxygen Concentration - - Weight 60 kg (132 lb 3.2 oz) 07/07/2023 12:45 PM EST Height 160 cm (5' 3) 07/07/2023 12:45 PM EST Body Mass Index 23.42 07/07/2023 12:45 PM EST documented in this encounter Progress Notes * Angela Heredia MD - 07/07/2023 1:00 PM EST Images from the original note were not included. [facility] Follow up visit: Reason for visit: hyperparathyroidism History: Nataliya Morfin is a 48 y.o. woman with a history of bipolar disorder diagnosed in 2003, CKD3, OCD, here for follow up of hyperparathyroidism. Last visit with me in 02/2023. She has a history of bipolardisorder and was previously on Kline starting from 2003 until September 2022, when it was discontinued during a hospitalization for lithium toxicity. She has been noted since early 2022 to have hyperparathyroidism in setting of CKD and a high normal calcium. Not currently on calcium supplementation, does take 1000 IU of vitamin D daily. Was previously drinking 2 glasses of milk daily, but has not been doing so recently. She has been following with nephrology, next visit this month. She does continue to have polyuria and polydipsia. 24 hour urine calcium was performed twice so far, with urine calcium low. Of note, urine volume was high. She has been losing some weight, and believes she has lost at least a few lbs since her last visit with me. History of Hyperparathyroidism: yes History of nephrolithiasis: no History of renal disease: yes History of vitamin D insufficiency/deficiency: no History of hypercalcemia: one episode of hypercalcemia in 09/2022 History of falls/fractures: no History of osteoporosis: no Family history of nephrolithiasis: possibly in father Family history of osteoporosis: no Family history of fractures: no History of thyroid disease: yes, on LT4 75 mcg daily - takes it in the morning Dental: last visit summer - does not require dental work to be done Past Medical History: Past Medical History Past Medical History: Diagnosis Date Bipolar 1 disorder Chronic kidney disease (CKD) stage G3b/A1, moderately decreased glomerular filtration rate (GFR) between 30-44 mL/min/1.73 square meter and albuminuria creatinine ratio less than 30 mg/g OCD (obsessive compulsive disorder) Past Surgical History: Past Surgical History Past Surgical History: Procedure Laterality Date EYE SURGERY tear ducts as a child TOE SURGERY Medications: Pilocarpine Depakote Wellbutrin Klonopin Levothyroxine Allergies: Nsaids (non-steroidal anti-inflammatory drug), Tolmetin, and Ibuprofen Social history: Lives with parents No cigarette use No alcohol use Review of systems: As noted in HPI, all other systems reviewed and negative Patient Vitals for the past 24 hrs: Temp Pulse BP SpO2 07/07/23 1245 36.9 ??C (98.4 ??F) 68 124/81 99 % Physical Exam: General: No acute distress, well appearing Head: atraumatic, normocephalic Eyes: no proptosis, no erythema Neck: no visible scars or goiter Resp: breathing comfortably; no respiratory distress Psych: AAO x 3; normal affect; memory intact Labs/Imaging: Latest Reference Range & Units 09/09/22 04:46 10/01/22 15:06 01/06/23 07:47 02/12/23 07:41 04/23/23 08:52 06/08/23 11:04 Sodium 135 - 145 mmol/L 145 148 (H) 141 142 142 141 Potassium 3.5 - 5.0 mmol/L 4.5 4.5 4.6 4.1 4.5 4.5 Chloride 98 - 107 mmol/L 115 (H) 113 (H) 108 (H) 113 (H) 108 (H) 107 CO2 22 - 31 mmol/L 22 19 (L) 25 18 (L) 26 21 (L) Anion Gap 5 - 15 mmol/L 8 16 (H) 8 11 8 13 BUN 8 - 18 mg/dL 14 34 (H) 18 31 (H) 26 (H) 20 (H) Creatinine 0.70 - 1.20 mg/dL 1.71 (H) 1.14 1.28 (H) 1.16 1.17 1.36 (H) Estimated GFR >=60 mL/min/1.73 m?? 37 (L) 59 (L) 52 (L) 58 (L) 57 (L) 48 (L) Calcium 8.5 - 10.5 mg/dL 10.3 10.5 10.2 9.9 10.1 10.1 Magnesium 0.69 - 1.07 mmol/L 0.95 Phosphorus 2.5 - 4.5 mg/dL 3.6 4.0 2.5 2.9 3.2 Glucose Lvl 65 - 199 mg/dL 102 75 85 85 77 81 (H): Data is abnormally high (L): Data is abnormally low Latest Reference Range & Units 09/26/22 08:44 10/01/22 15:06 01/06/23 07:47 02/12/23 07:41 04/23/23 08:52 06/08/23 11:04 Total Protein 6.1 - 8.0 g/dL 6.8 6.7 Albumin 3.2 - 5.2 g/dL 4.2 4.4 4.1 3.9 4.3 4.4 Total Bilirubin 0.2 - 1.3 mg/dL <0.2 (L) <0.2 (L) Bili, Direct 0.0 - 0.3 mg/dL <0.1 Alk Phos 35 - 105 unit/L 99 89 AST 0 - 30 unit/L 12 11 ALT 0 - 30 unit/L 13 12 (L): Data is abnormally low Latest Reference Range & Units 09/09/22 04:46 10/01/22 15:06 01/06/23 07:47 04/23/23 08:52 06/08/23 11:04 25-OH Vit D Total 21 - 100 ng/mL 24 36 36 31 41 25-OH Vit D Interp Insufficient Sufficient Sufficient Sufficient Sufficient Latest Reference Range & Units 06/25/22 09:49 08/04/22 13:58 09/06/22 08:52 09/09/22 04:46 10/01/22 15:06 01/06/23 07:47 02/12/23 07:41 04/23/23 08:52 06/08/23 11:04 TSH 0.27 - 4.20 mcIU/mL 4.10 0.61 1.68 PTH 15 - 65 pg/mL 187 (H) 143 (H) 125 (H) 109 (H) 94 (H) 138 (H) (H): Data is abnormally high Latest Reference Range & Units 02/13/23 06:46 06/21/23 07:14 Urine TV (ml) mL 3,800 3,800 5,678 Hours Collected hour(s) 24 24 U24 Ca Calc 50.0 - 300.0 mg/24hr 53.2 79.5 U24 Ca Conc mg/dL 1.4 1.4 U24 Creat Calc 0.70 - 1.60 g/24hr 0.38 (L) U24 Creat Conc mg/dL 10 (L): Data is abnormally low Dawn Sanchez MD [phone] 205410/01/2022 Narrative & Impression Renal (Signed Final 10/01/2022 07:53 pm) PATIENT INFO: ID #: [id number] : [birth year] (47 yrs)(F) Name: NATALIYA MORFIN Visit Date: 10/01/2022 02:08 pm PERFORMED BY: Attending: Dawn Sanchez MD Resident: Jayne NÚÑEZ [facility] Performed By: Monster Bhatia RDMS Referred By: SHAKA EPPS Location: [place] SERVICE(S) PROVIDED: URETRO - Retroperitoneal Complete - [id number] INDICATIONS: long-standing lithium use and CKD, requested by nephrology consultants to look for changes consistent with chronic renal damage from lithium, please coordinate with nephrology clinic (date/time currently pending) COMPARISON: No prior studies for comparison. RIGHT KIDNEY: Size (cm) L: 10.1 Cortical Thickness: Normal Cortical Echogenicity: Echogenic Hydronephrosis: No sonographic evidence Comment: Several cysts seen, largest seen in the mid pole measuring 1.2 x 1.3 x 1.1 cm and simple. Additional scattered punctate echogenic non- shadowing foci . LEFT KIDNEY: Size (cm) L: 9.4 Cortical Thickness: Normal Cortical Echogenicity: Echogenic Hydronephrosis: No sonographic evidence Comment: Several cysts seen, largest in the superior pole measuring 1.7 x 1.5 x 1.4 cm with avascular septation. Additional scattered punctate echogenic non-shadowing foci . URINARY BLADDER: Pre-void (cm) L: 10.0 AP: 4.7 TV: 9.1 Vol (ml): 223.9 Comment: Partially distended, normal contour. ADDITIONAL FINDINGS: Incompletely evaluated fibroid uterus, including nearly 7 cm posterior fibroid noted. IMPRESSION 1. Bilateral echogenic symmetric in size kidneys with several small cysts seen, largest on the left measuring up to 1.7 cm with avascular septation, as well as scattered punctate nonshadowing echogenic foci, sonographic appearance of which can be seen with lithium-induced nephropathy. 2. No collecting system dilatation, bilaterally 3. Normal contour of the partially distended bladder. 4. Incompletely evaluated fibroid uterus, including nearly 7 cm posterior fibroid. Consider dedicated pelvic ultrasound for more complete characterization. I have personally reviewed the image(s) and the resident's interpretation and agree with the findings, Dawn Sanchez MD at 10/01/2022 7:46 PM Assessment and Plan: 48 year old woman pleasant woman with hyperparathyroidism Hypercalcemia/hyperparathyroidism: Hypercalcemia now resolved, although calcium remains high normalwith elevated PTH. Initially thought that hyperparathyroidism was caused by fdc use of lithium, as lithium is known to be associated with hyperparathyroidism. Kline use can be associated with4 gland hyperplasia or a parathyroid adenoma/unmasking of primary hyperparathyroidism. It is also kn own to raise the calcium set point. Since cessation of lithium, her serum calcium level has fallen,which is reassuring, but it remains high normal. [...] secondary hyperparathyroidism from CKD. Her estimate GFR is now 48. Will obtain a cystatin-C as an alternative measure of herrenal function to assess if her CKD could explain this degree of hyperparathyroidism. Will also check a serum ionized calcium. Her urine volume is very high and she endorses symptoms of polyuria, polydipsia - unclear if she also has a component of nephrogenic DI. Follow up to be determined by results of above testing. Hypothyroidism, acquired: Repeat TFTs today. 40 minutes total time spent seeing patient today, pre-charting/reviewing previous labs/office notes, discussing evaluation and management of hyperparathyroidism, placing orders and on documentation. Angela Heredia MD [employer] driver Endocrinology Section [facility] documented in this encounter Plan of Treatment Upcoming Encounters Date Type Department Care Team (Latest Contact Info) Description 04/22/2024 9:45 AM EST Scheduled View Only Radiation Oncology at [address] [phone] 04/25/2024 8:30 AM EST Scheduled View Only Radiation Oncology at [address] [phone] 04/26/2024 3:00 PM EST Scheduled View Only Radiation Oncology at [address] [phone] 04/26/2024 3:30 PM EST Office Visit Radiation Oncology at [address] [phone] Ofe Fonseca MD [facility] [place] [place] [address] 04/28/2024 2:45 PM EST Scheduled View Only Radiation Oncology at [address] [phone] 04/29/2024 3:00 PM EST Scheduled View Only Radiation Oncology at [address] [phone] 05/02/2024 3:45 PM EST Scheduled View Only Radiation Oncology at [address] [phone] 05/03/2024 1:45 PM EST Scheduled View Only Radiation Oncology at [address] [phone] 05/03/2024 2:15 PM EST Office Visit Radiation Oncology at [address] [phone] Ofe Fonseca MD [facility] [place] [address] 05/05/2024 8:15 AM EST Scheduled View Only Radiation Oncology at [address] [phone] 05/06/2024 12:30 PM EST Scheduled View Only Radiation Oncology at [address] [phone] 05/09/2024 3:00 PM EST Scheduled View Only Radiation Oncology at [address] [phone] 05/10/2024 2:30 PM EST Scheduled View Only Radiation Oncology at [address] [phone] 05/10/2024 3:15 PM EST Office Visit Radiation Oncology at [address] [phone] Ofe Fonseca MD [facility] [place] [address] 05/11/2024 2:45 PM EST Scheduled View Only Radiation Oncology at [address] [phone] 06/03/2024 3:30 PM EST Appointment Ultrasound at [place] [phone] Mira Hutchison [facility] [place] [address] 06/23/2024 4:00 PM EST Appointment Mammography/[place] [phone] Miryam Feliciano MD [facility] [place] [address] 07/12/2024 8:00 AM EDT Laboratory Appointment Lab [address] [place] [phone] 07/12/2024 9:30 AM EDT Office Visit Nephrology [place] [phone] Sharmin Jean-Baptiste [facility] [place] [address] 07/13/2024 10:30 AM EDT Laboratory Appointment Lab at [facility] Hematology Oncology [address] [place] [phone] 07/13/2024 11:30 AM EDT Office Visit Hematology [place] [phone] Salena Alvares APRN [facility] [place] [address] 07/13/2024 12:45 PM EDT Appointment Hematology [place] [phone] documented as of this encounter Results * Calcium, Ionized, Serum (07/09/2023 8:12 AM EST) Ionized Calcium 1.32 1.15 - 1.33 mmol/L [facility] Comment: Note: Total bilirubin higher than 20 mg/dL may lead to falsely low ionized calcium. This test has not been cleared by the [place] FDA. Performance characteristics of this test were determined by [facility] in accordance with CLIA requirements. This laboratory is qualified under CLIA to perform high-complexity testing. Blood 07/09/2023 8:12 AM EST 07/09/2023 8:16 AM EST Narrative Resulting Agency Comment Spec In Lab Angela Heredia MD CHEMISTRY ORDERABLES Performing Organization Address City/[facility]/ZIP Co de Phone Number [facility] [place] [place] [address] * TSH [place] (07/09/2023 8:12 AM EST) Thyroid Stimulating Hormone 1.91 0.27 - 4.20 mcIU/mL [facility] Comment: Reference Interval (mcIU/mL): Females: ??First Trimester: 0.23-3.88 ??Second Trimester: 0.22-3.90 ??Third Trimester: 0.44-4.66 Blood 07/09/2023 8:12 AM EST 07/09/2023 8:16 AM EST Narrative Resulting Agency Comment Spec In Lab Angela Heredia MD CHEMISTRY ORDERABLES [facility] [place] [place] [address] * (ABNORMAL) Cystatin C (07/09/2023 8:12 AM EST) Cystatin C (SEPTEMBER) 1.23(H) 0.63 - 1.03 mg/L [facility] Comment: Test Performed by: [address] [address] Banana Carrier: Owen Zurita M.D. Ph.D.; CLIA# [id number] Cystatin C Egfr (SEPTEMBER) 58(L) >60 mL/min/BS A [facility] Comment: Estimated GFR calculated using the [...] with the new assay. Test Performed by: [facility] - [address] [address] Banana Carrier: Owen Zurita M.D. Ph.D.; CLIA# [id number] Blood 07/09/2023 8:12 AM EST 07/09/2023 12:53 PM EST Narrative Resulting Agency Comment Spec In Lab Angela Heredia MD LAB SEND OUT ORDERAB LES [facility] [place] [place] [address] documented in this encounter Visit Diagnoses Diagnosis Stage 3b chronic kidney disease Hypothyroidism, acquired Unspecified hypothyroidism Hypercalcemia Hyperparathyroidism Hyperparathyroidism, unspecified documented in this encounter Care Teams Welt Cutter Relationship Specialty Start Date End Date Haylie Steward MD [facility] [place] [address] PCP - General General Internal Medicine 08/04/22 documented as of this encounter
--- OUTSIDE RECORDS SUMMARY | 2024-04-22 00:23 | XMS_ITS | Encounter Summary ---
[place] [address] Care Team Providers Care Stable Hand Name Role Phone Haylie Steward MD Primary Care Provider [phone] Encounter Details Date Type Department Care Team (Latest Contact Info) Description 06/08/2023 11:25 AM EST Laboratory Appointment Lab [address] [place] [phone] Primary hyperparathyroidism ; Hyperparathyroidism ; Anemia in stage 3a chronic kidney disease; Stage 3a chronic kidney disease Social History Tobacco Use Types Packs/Day Years [...] Scheduled View Only Radiation Oncology at [address] [phone] 04/25/2024 8:30 AM EST Scheduled View Only Radiation Oncology at [address] [phone] 04/26/2024 3:00 PM EST Scheduled View Only Radiation Oncology at [address] [phone] 04/26/2024 3:30 PM EST Office Visit Radiation Oncology at [address] [phone] Ofe Fonseca MD [facility] [place] [address] 04/28/2024 2:45 PM EST Scheduled View Only Radiation Oncology at [address] [phone] 04/29/2024 3:00 PM EST Scheduled View Only Radiation Oncology at [address] [phone] 05/02/2024 3:45 PM EST Scheduled View Only Radiation Oncology at [address] [phone] 05/03/2024 1:45 PM EST Scheduled View Only Radiation Oncology at [address] [phone] 05/03/2024 2:15 PM EST Office Visit Radiation Oncology at [address] [phone] Ofe Fonseca MD [facility] [place] [address] 05/05/2024 8:15 AM EST Scheduled View Only Radiation Oncology at [address] [phone] 05/06/2024 12:30 PM EST Scheduled View Only Radiation Oncology at [address] [phone] 05/09/2024 3:00 PM EST Scheduled View Only Radiation Oncology at [address] [phone] 05/10/2024 2:30 PM EST Scheduled View Only Radiation Oncology at [address] [phone] 05/10/2024 3:15 PM EST Office Visit Radiation Oncology at [address] [phone] Ofe Fonseca MD [facility] [place] [address] 05/11/2024 2:45 PM EST Scheduled View Only Radiation Oncology at [address] [phone] 06/03/2024 3:30 PM EST Appointment Ultrasound at [address] Mira Hutchison [facility] [place] [address] 06/23/2024 4:00 PM EST Appointment Mammography/DXA at [place] [phone] Miryam Feliciano MD [facility] [place] [address] 07/12/2024 8:00 AM EDT Laboratory Appointment Lab [address] [phone] 07/12/2024 9:30 AM EDT Office Visit Nephrology Hypertension at [place] [phone] Sharmin Jean-Baptiste [facility] [place] [address] 07/13/2024 10:30 AM EDT Laboratory Appointment Lab at [facility] Hematology Oncology [address] [place] [phone] 07/13/2024 11:30 AM EDT Office Visit Hematology [place] [phone] Salena Alvares, ROLL THREADER OPERATOR [facility] [place] [address] 07/13/2024 12:45 PM EDT Appointment Hematology [place] [phone] documented as of this encounter Procedures Procedure Name Priority Date/Time Associated Diagnosis Comments PROTEIN/CREATININ E RATIO, URINE Routine 06/08/2023 11:22 AM EST Hyperparathyroidism Anemia in stage 3a chronic kidney disease Stage 3a chronic kidney disease PTH Routine 06/08/2023 11:04 AM EST Primary hyperparathyroidism IRON AND TIBC Routine 06/08/2023 11:04 AM EST Hyperparathyroidism Anemia in stage 3a chronic kidney disease Stage 3a chronic kidney disease VITAMIN D, 25-HYDROXY Routine 06/08/2023 11:04 AM EST Primary hyperparathyroidism PHOSPHORUS Routine 06/08/2023 11:04 AM EST Hyperparathyroidism Anemia in stage 3a chronic kidney disease Stage 3a chronic kidney disease FERRITIN Routine 06/08/2023 11:04 AM EST Hyperparathyroidism Anemia in stage 3a chronic kidney disease Stage 3a chronic kidney disease ALBUMIN LEVEL Routine 06/08/2023 11:04 AM EST Hyperparathyroidism Anemia in stage 3a chronic kidney disease Stage 3a chronic kidney disease BASIC METABOLIC PANEL Routine 06/08/2023 11:04 AM EST Hyperparathyroidism Anemia in stage 3a chronic kidney disease Stage 3a chronic kidney disease documented in this encounter Results * Protein/Creatinine Ratio, urine (06/08/2023 11:22 AM EST) Creatinine, Urine 24 mg/dL [facility] Protein, Urine <6 0 - 12 mg/dL [facility] Protein / Creatinine Ratio, Urine <0.2 ratio [facility] Urine 06/08/2023 11:2 2 AM EST 06/08/2023 11:37 AM EST Narrative Resulting Agency Comment Spec In Lab Horace Rogers MD URINE ORDERABLES Performing Organization Address City/State/[facility] Co de Phone Number [facility] [place] [address] * (ABNORMAL) Basic Metabolic Panel (non-fasting) (06/08/2023 11:04 AM EST) Glucose 81 65 - 199 mg/dL [facility] Comment:Diabetes: >=200 mg/d L plus symptoms Blood Urea Nitrogen 20(H) 8 - 18 mg/dL [facility] Creatinine 1.36(H) 0.70 - 1.20 mg/dL [facility] Sodium 141 135 - 145 mmol/L [facility] Potassium 4.5 3.5 - 5.0 mmol/L [facility] Comment: Please note: ??Patients with WBC >100,000 may have falsely elevated Potassium levels. ??For accurate Potassium quantification in these patients send serum separator tube (gold top) for subsequent determinations. ??Contact the Clinical Chemistry Laboratory if there are any questions. Chloride 107 98 - 107 mmol/L [facility] Carbon Dioxide 21(L) 22 - 31 mmol/L [facility] Anion Gap 13 5 - 15 mmol/L [facility] Calcium 10.1 8.5 - 10.5 mg/dL [facility] Est Glomerular Filtration Rate 48(L) >=60 mL/min/1. 73 m?? [facility] Comment: This patient's estimated GFR was [...] and symptoms in addition to eGFR. Blood 06/08/2023 11:0 4 AM EST 06/08/2023 11:19 AM EST Narrative Resulting Agency Comment Spec In Lab Horace Rogers MD CHEMISTRY ORDERABLES Performing Organization Address City/[facility]/ZIP Co de Phone Number [facility] [place] [address] * Ferritin (06/08/2023 11:04 AM EST) Ferritin 44 6 - 175 ng/mL [facility] Comment: Please note that as of 04/08/2023, the reference intervals for Ferritin have been updated. Blood 06/08/2023 11:0 4 AM EST 06/08/2023 11:19 AM EST Narrative Resulting Agency Comment Spec In Lab Horace Rogers MD CHEMISTRY ORDERABLES Performing Organization Address [facility] Co de Phone Number [facility] [place] [address] * Iron and TIBC (06/08/2023 11:04 AM EST) Iron 117 30 - 150 mcg/dL [facility] TIBC Not Calculated 250 - 450 mcg/dL [facility] Iron Saturation Not Calculated 20 - 50 % [facility] Blood 06/08/2023 11:0 4 AM EST 06/08/2023 11:19 AM EST Narrative Resulting Agency Comment Spec In Lab Horace Rogers MD CHEMISTRY ORDERABLES Performing Organization Address City/[facility] Co de Phone Number [facility] [place] [address] * Albumin Level (06/08/2023 11:04 AM EST) Albumin 4.4 3.2 - 5.2 g/dL [facility] Blood 06/08/2023 11:0 4 AM EST 06/08/2023 11:19 AM EST Narrative Resulting Agency Comment Spec In Lab Horace Rogers MD CHEMISTRY ORDERABLES Performing Organization Address City/[facility]/[place] [address] * Phosphorus (06/08/2023 11:04 AM EST) Phosphorus 3.2 2.5 - 4.5 mg/dL [facility] Blood 06/08/2023 11:0 4 AM EST 06/08/2023 11:19 AM EST Narrative Resulting Agency Comment Spec In Lab Horace Rogers MD CHEMISTRY ORDERABLES Performing Organization Address [facility] Co de Phone Number [facility] [place] [address] * (ABNORMAL) PTH (06/08/2023 11:04 AM EST) Parathyroid Hormone 138(H) 15 - 65 pg/mL [facility] Blood 06/08/2023 11:0 4 AM EST 06/08/2023 11:20 AM EST Narrative Resulting Agency Comment Spec In Lab Angela Heredia MD CHEMISTRY ORDERABLES Performing Organization Address [facility] Co de Phone Number [facility] [place] [address] * Vitamin D, 25-Hydroxy (06/08/2023 11:04 AM EST) Vitamin D Total 25 OH 41 21 - 100 ng/mL [facility] Vit D Interp Sufficient [facility] Blood 06/08/2023 11:0 4 AM EST 06/08/2023 11:19 AM EST Narrative Resulting Agency Comment Spec In Lab Angela Heredia MD CHEMISTRY ORDERABLES Performing Organization Address City/[facility] Co de Phone Number [facility] [place] [address] documented in this encounter Visit Diagnoses Diagnosis Primary hyperparathyroidism Hyperparathyroidism Hyperparathyroidism, unspecified Anemia in stage 3a chronic kidney disease Stage 3a chronic kidney disease documented in this encounter Care Teams Stable Hand Relationship Specialty Start Date End Date Haylie Steward MD PO [facility] [place] [address] PCP - General General Internal Medicine 08/04/22 documented as of this encounter
--- OUTSIDE RECORDS SUMMARY | 2024-04-22 00:23 | XMS_ITS | Encounter Summary ---
Author Organization [facility] [place] [address] Care Team Providers Care Nanotechnology Engineering Technician Name Role Phone Haylie Steward MD Primary Care Provider [phone] Encounter Details Date Type Department Care Team (Latest Contact Info) Description 06/25/2023 Travel Social History Tobacco Use Types Packs/Day [...] Scheduled View Only Radiation Oncology at [address] [phone] 04/25/2024 8:30 AM EST Scheduled View Only Radiation Oncology at [address] [phone] 04/26/2024 3:00 PM EST Scheduled View Only Radiation Oncology at [address] [phone] 04/26/2024 3:30 PM EST Office Visit Radiation Oncology at [address] [phone] [facility] [place] [address] 04/28/2024 2:45 PM EST Scheduled View Only Radiation Oncology at [address] [phone] 04/29/2024 3:00 PM EST Scheduled View Only Radiation Oncology at [address] [phone] 05/02/2024 3:45 PM EST Scheduled View Only Radiation Oncology at [address] [phone] 05/03/2024 1:45 PM EST Scheduled View Only Radiation Oncology at [address] [phone] 05/03/2024 2:15 PM EST Office Visit Radiation Oncology at [address] [phone] [facility] [place] [address] 05/05/2024 8:15 AM EST Scheduled View Only Radiation Oncology at [address] [phone] 05/06/2024 12:30 PM EST Scheduled View Only Radiation Oncology at [address] [phone] 05/09/2024 3:00 PM EST Scheduled View Only Radiation Oncology at [address] [phone] 05/10/2024 2:30 PM EST Scheduled View Only Radiation Oncology at [address] [phone] 05/10/2024 3:15 PM EST Office Visit Radiation Oncology at [address] [phone] [facility] [place] [address] 05/11/2024 2:45 PM EST Scheduled View Only Radiation Oncology at [address] [phone] 06/03/2024 3:30 PM EST Appointment [place] [phone] Mira Hutchison, [facility] [place] [address] 06/23/2024 4:00 PM EST Appointment Mammography/[place] [phone] [facility] [place] [address] 07/12/2024 8:00 AM EDT Laboratory Appointment Lab [address] [place] [phone] 07/12/2024 9:30 AM EDT Office Visit Nephrology [place] [phone] Sharmin Jean-Baptiste [facility] [place] [address] 07/13/2024 10:30 AM EDT Laboratory Appointment Lab at [facility] Oncology [address] [place] [phone] 07/13/2024 11:30 AM EDT Office Visit Hematology [place] [phone] [facility] [place] [address] 07/13/2024 12:45 PM EDT Appointment Hematology [place] [phone] documented as of this encounter Visit Diagnoses Not on filedocumented in this encounter Care Teams Nanotechnology Engineering Technician Relationship Specialty Start Date [place] [address] PCP - General General Internal Medicine 08/04/22 documented as of this encounter
--- OUTSIDE RECORDS SUMMARY | 2024-04-22 00:24 | XMS_ITS | Encounter Summary ---
[place] [address] Care Team Providers Care Superintendent Transmission Name Role Phone Haylie Steward MD Primary Care Provider [phone] Encounter Details Date Type Department Care Team (Latest Contact Info) Description 02/12/2023 7:15 AM EDT Laboratory Appointment Lab [address] [place] [phone] Bipolar 1 disorder Social History Tobacco Use [...] Scheduled View Only Radiation Oncology at [address] [phone] 04/25/2024 8:30 AM EST Scheduled View Only Radiation Oncology at [address] [phone] 04/26/2024 3:00 PM EST Scheduled View Only Radiation Oncology at [address] [phone] 04/26/2024 3:30 PM EST Office Visit Radiation Oncology at [address] [phone] Ofe Fonseca MD [facility] [place] [address] 04/28/2024 2:45 PM EST Scheduled View Only Radiation Oncology at [address] [phone] 04/29/2024 3:00 PM EST Scheduled View Only Radiation Oncology at [address] [phone] 05/02/2024 3:45 PM EST Scheduled View Only Radiation Oncology at [address] [phone] 05/03/2024 1:45 PM EST Scheduled View Only Radiation Oncology at [address] [phone] 05/03/2024 2:15 PM EST Office Visit Radiation Oncology at [address] [phone] Ofe Fonseca MD [facility] [place] [address] 05/05/2024 8:15 AM EST Scheduled View Only Radiation Oncology at [address] [phone] 05/06/2024 12:30 PM EST Scheduled View Only Radiation Oncology at [address] [phone] 05/09/2024 3:00 PM EST Scheduled View Only Radiation Oncology at [address] [phone] 05/10/2024 2:30 PM EST Scheduled View Only Radiation Oncology at [address] [phone] 05/10/2024 3:15 PM EST Office Visit Radiation Oncology at [address] [phone] Ofe Fonseca MD [facility] [place] [address] 05/11/2024 2:45 PM EST Scheduled View Only Radiation Oncology at [address] [phone] 06/03/2024 3:30 PM EST Appointment Ultrasound at [place] [phone] Mira Hutchison, [facility] [place] [address] 06/23/2024 4:00 PM EST Appointment Mammography/DXA at [place] [phone] Miryam Feliciano MD [facility] [place] [address] 07/12/2024 8:00 AM EDT Laboratory Appointment Lab [address] [place] [phone] 07/12/2024 9:30 AM EDT Office Visit Ne[place] [phone] Sharmin Jean-Baptiste [facility] [place] [address] 07/13/2024 10:30 AM EDT Laboratory Appointment Lab at [facility] Hematology Oncology [address] [place] [phone] 07/13/2024 11:30 AM EDT Office Visit Hematology [place] [phone] Salena Alvares APRN [facility] [place] [address] 07/13/2024 12:45 PM EDT Appointment Hematology [place] [phone] documented as of this encounter Procedures Procedure Name Priority Date/Time Associated Diagnosis Comments TSH Routine 02/12/2023 7:41 AM EDT Bipolar 1 disorder VALPROIC ACID LEVEL, TOTAL Routine 02/12/2023 7:41 AM EDT Bipolar 1 disorder COMPREHENSIVE METABOLIC PANEL Routine 02/12/2023 7:41 AM EDT Bipolar 1 disorder documented in this encounter Results * (ABNORMAL) Comprehensive metabolic panel (non-fasting) (02/12/2023 7:41 AM EDT) Glucose 85 65 - 199 mg/dL [facility] Comment:Diabetes: >=200 mg/d L plus symptoms Blood Urea Nitrogen 31(H) 8 - 18 mg/dL [facility] Creatinine 1.16 0.70 - 1.20 mg/dL [facility] Sodium 142 135 - 145 mmol/L [facility] Potassium 4.1 3.5 - 5.0 mmol/L [facility] Comment: Please note: ??Patients with WBC >100,000 may have falsely elevated Potassium levels. ??For accurate Potassium quantification in these patients send serum separator tube (gold top) for subsequent determinations. ??Contact the Clinical Chemistry Laboratory if there are any questions. Chloride 113(H) 98 - 107 mmol/L [facility] Carbon Dioxide 18(L) 22 - 31 mmol/L [facility] Anion Gap 11 5 - 15 mmol/L [facility] Calcium 9.9 8.5 - 10.5 mg/dL [facility] Protein, Total 6.7 6.1 - 8.0 g/dL [facility] Albumin 3.9 3.2 - 5.2 g/dL [facility] Aspartate Aminotransferase 11 0 - 30 unit/L [facility] Alanine Aminotransferase 12 0 - 30 unit/L [facility] Alkaline Phosphatase 89 35 - 105 unit/L [facility] Bilirubin, Total <0.2(L) 0.2 - 1.3 mg/dL [facility] Est Glomerular Filtration Rate 58(L) >=60 mL/min/1. 73 m?? [facility] Comment: This patient's estimated GFR [...] and symptoms in addition to eGFR. Blood 02/12/2023 7:41 AM EDT 02/12/2023 8:00 AM EDT Narrative Resulting Agency Comment Spec In Lab Michelet Monge MD CHEMISTRY ORDERABLES Performing Organization Address City/[facility] Co de Phone Number [facility] [place] [address] * TSH (02/12/2023 7:41 AM EDT) Thyroid Stimulating Hormone 1.68 0.27 - 4.20 mcIU/mL [facility] Comment: Reference Interval (mcIU/mL): Females: ??First Trimester: 0.23-3.88 ??Second Trimester: 0.22-3.90 ??Third Trimester: 0.44-4.66 Blood 02/12/2023 7:41 AM EDT 02/12/2023 8:00 AM EDT Narrative Resulting Agency Comment Spec In Lab Michelet Monge MD CHEMISTRY ORDERABLES [facility] [place] [address] * Valproic Acid Level, Total (02/12/2023 7:41 AM EDT) Valproic Acid 52 mg/L [facility] Comment: Therapeutic Range: Anticonvulsant Therapy: ??50-100 mg/L Manic Episodes Associated with Bipolar Disorder: ??50-125 mg/L Blood 02/12/2023 7:41 AM EDT 02/12/2023 8:00 AM EDT Narrative Resulting Agency Comment Spec In Lab Michelet Monge MD CHEMISTRY ORDERABLES Performing Organization Address [facility] Co de Phone Number [facility] [place] [address] documented in this encounter Visit Diagnoses Diagnosis Bipolar 1 disorder Bipolar I disorder, most recent episode (or current) unspecified documented in this encounter Care Teams Superintendent Transmission Relationship Specialty Start Date [place] [address] PCP - General General Internal Medicine 08/04/22 documented as of this encounter
--- OUTSIDE RECORDS SUMMARY | 2024-04-22 00:24 | XMS_ITS | Encounter Summary ---
Author Organization [facility] [place] [address] Care Team Providers Care Powder Coat Painter Name Role Phone Haylie Steward MD Primary Care Provider [phone] Encounter Details Date Type Department Care Team (Late st Contact Info) Description 02/24/2023 Telephone Obstetrics [place] [phone] Apoorva Gruber Social History Tobacco Use Types Packs/Day Years Used Date Smoking Tobacco: Never Smokeless Tobacco: Never Alcohol Use Standard Drinks/Week Comments Not Currently 0 (1 standard drink = 0.6 oz pur e alcohol) [facility] Inpatient Questions Answer Date Recorded Does [...] Scheduled View Only Radiation Oncology at [address] [phone] 04/25/2024 8:30 AM EST Scheduled View Only Radiation Oncology at [address] [phone] 04/26/2024 3:00 PM EST Scheduled View Only Radiation Oncology at [address] [address] 04/26/2024 3:30 PM EST Office Visit Radiation Oncology at [address] [phone] Ofe Fonseca MD [facility] [place] [address] 04/28/2024 2:45 PM EST Scheduled View Only Radiation Oncology at [address] [phone] 04/29/2024 3:00 PM EST Scheduled View Only Radiation Oncology at [address] [address] 05/02/2024 3:45 PM EST Scheduled View Only Radiation Oncology at [address] [address] 05/03/2024 1:45 PM EST Scheduled View Only Radiation Oncology at [address] [address] 05/03/2024 2:15 PM EST Office Visit Radiation Oncology at [address] [address] Ofe Fonseca MD [facility] [place] [address] 05/05/2024 8:15 AM EST Scheduled View Only Radiation Oncology at [address] [address] 05/06/2024 12:30 PM EST Scheduled View Only Radiation Oncology at [address] [address] 05/09/2024 3:00 PM EST Scheduled View Only Radiation Oncology at [address] [address] 05/10/2024 2:30 PM EST Scheduled View Only Radiation Oncology at [address] [phone] 05/10/2024 3:15 PM EST Office Visit Radiation Oncology at [address] [phone] Ofe Fonseca MD [facility] [place] [address] 05/11/2024 2:45 PM EST Scheduled View Only Radiation Oncology at [address] [phone] 06/03/2024 3:30 PM EST Appointment Ultrasound at [place] [phone] Mira Hutchison [facility] [address] 06/23/2024 4:00 PM EST Appointment Mammography/DXA at [place] [phone] Miryam Feliciano MD [facility] [place] [address] 07/12/2024 8:00 AM EDT Laboratory Appointment Lab [place] [phone] 07/12/2024 9:30 AM EDT Office Visit Ne[place] [phone] Sharmin Jean-Baptiste [facility] [place] [address] 07/13/2024 10:30 AM EDT Laboratory Appointment Lab at [facility] Hematology Oncology [address] [place] [phone] 07/13/2024 11:30 AM EDT Office Visit Hematology [place] [address] Salena Alvares APRN [facility] [place] [address] 07/13/2024 12:45 PM EDT Appointment Hematology [place] [address] documented as of this encounter Visit Diagnoses Not on filedocumented in this encounter Care Teams Powder Coat Painter Relationship Specialty Start Date [place] [address] PCP - General General Internal Medicine 08/04/22 documented as of this encounter
--- OUTSIDE RECORDS SUMMARY | 2024-04-22 00:24 | XMS_ITS | Encounter Summary ---
[place] [address] Care Team Providers Care Director Of Marketing Operations Name Role Phone Haylie Steward MD Primary Care Provider [phone] Reason for Visit * Consultation (Routine) - Closed Specialty Diagnoses / Procedures Referred By Contcele t Referred To Contact Obstetrics and Gynecology Diagnoses Menometrorrhagia [place] [address] [place] [address] [employer] [employer] [address] [place] [address] Referral ID Status Reason Start Date Expiration Date V isits Requested Visits Authorized [id number] Closed Consult, Test & Treat PCP Updated and/or Approved 01/07/2023 01/07/2024 12 12 Encounter Details Date Type Department Care Team (Latest Contact Info) Description 02/25/2023 1:00 PM EDT TH Visit (TeleHealth) Obstetrics [place] [phone] Claudia Andrews APRN [facility] [place] [address] Abnormal uterine bleeding (AUB); Perimenopausal Social History Tobacco Use Types Packs/Day Years [...] Taken Comments Blood Pressure - - Pulse - - Temperature - - Respiratory Rate - - Oxygen Saturation - - Inhaled Oxygen Concentration - - Weight 56.2 kg (124 lb) 02/20/2023 4:51 PM EDT Height 160 cm (5' 3) 02/20/2023 4:51 PM EDT Body Mass Index 21.97 02/20/2023 4:51 PM EDT documented in this encounter Progress Notes * Radha Barksdale LNA - 02/25/2023 1:00 PM EDT ____ Patient not reached ___X_Patient reached and the following information was reviewed/obtained per protocol. __X_Confirmed patient name and date of __X_Confirmed tele med appt (Virtual visit) is downloaded and functioning __X_Confirmed location of patient- TeleVisit is taking place in [place]__ [place]__[place]__[place]__ If not on myD, working on signing up for my Confirmed has completed any pre-visit questionnaires If has not received required previsit questionnaires, send via [facility] _X__Reviewed medications, allergies, pharmacy, pain/depression, education _X__Documented height/weight/LMP Other information or concerns: SERVANDO Scales * Claudia Andrews APRN - 02/25/2023 1:00 PM EDT Division of Obstetrics and Gynecology [facility] NEURORADIOLOGIST TeleHealth Encounter I provided care to the patient today via telehealth TOV. The patient voiced an understanding of thereason and intent of the visit. The patient provided verbal consent to bill their insurance for thevisit. [place] at time of this visit. Subjective: Nataliya Morfin is a 48 y.o. No obstetric history on file. who presents today on kind referral from Haylie Steward MD for AUB. Her history is significant for: stage 3 CKD, bipolar disorder, IBS, anemia, and hyperparathyroid disorder. Reports since October, she's had period more often - 2-3x/mo, sometimes lasting 2 days, sometimes lasting 10 days. Use to be monthly for a couple of days. Denies hot flashes, night sweats. Not sexually active, never on BC. Patient Active Problem List Diagnosis Date Noted Union intoxication, accidental or unintentional, initial encounter 09/06/2022 Stage 3b chronic kidney disease (CKD) 08/08/2022 Hyperparathyroidism 08/08/2022 Anemia 08/08/2022 Chronic pansinusitis 08/13/2020 Chronic tonsillitis 08/13/2020 White coat syndrome without diagnosis of hypertension 07/15/2018 Abnormal antibody titer 11/29/2017 Herpes zoster without complication 11/29/2017 Bipolar affective, mixed 03/03/2016 H/O toe surgery 03/03/2016 Hypothyroidism 03/03/2016 Irritable bowel syndrome 03/03/2016 Benign neoplasm of skin 08/10/2013 Past Medical History: Diagnosis Date Bipolar 1 disorder Chronic kidney disease (CKD) stage G3b/A1, moderately decreased glomerular filtration rate (GFR) between 30-44 mL/min/1.73 square meter and albuminuria creatinine ratio less than 30 mg/g OCD (obsessive compulsive disorder) Past Surgical History: Procedure Laterality Date EYE SURGERY tear ducts as a child TOE SURGERY Outpatient Medications Marked as Taking for the 02/25/23 encounter (TH Visit (TeleHealth)) with Claudia Andrews APRN Medication Sig Dispense Refill pilocarpine (Salagen) 5 mg tablet Take 1 tablet by mouth 3 times daily. 90 tablet 2 buPROPion XL (Wellbutrin XL) 150 mg XL 24 hr tablet Take 1 tablet by mouth every morning. 90 tablet0 divalproex ER (Depakote ER) 250 mg ER 24 hr tablet 2 tabs BID. 120 tablet 02 levothyroxine (Synthroid) 75 mcg tablet Take 1 tablet by mouth every morning. 90 tablet 0 clonazePAM (KlonoPIN) 0.5 mg disintegrating tablet Take 0.5 mg by mouth daily as needed. acetaminophen (Tylenol) 500 mg tablet Take 1,000 mg by mouth every 6 hours as needed for Pain. Alosetron (Lotronex) 0.5 mg tablet Take 0.5 mg by mouth 2 times daily. Allergies Allergen Reactions Nsaids (Non-Steroidal Anti-Inflammatory Drug) All interfere with lithium All interfere with lithium Tolmetin All interfere with lithium Ibuprofen Other reaction(s): Other, Other (See Comments), Unknown Patient states it affects her bipolar medication Union. ROS: See HPI, all others negative. Objective: Latest Reference Range & Units 01/06/23 07:47 Hemoglobin 11.7 - 15.5 g/dL 14.0 Hematocrit 35.7 - 45.8 % 44.6 Latest Reference Range & Units 02/12/23 07:41 TSH 0.27 - 4.20 mcIU/mL 1.68 General: Patient sitting comfortably in no acute distress. Appears stated age, average size female.Breathing unlabored. HEENT: Normocephalic, atraumatic, normal hair distribution, facial nerves grossly intact. Musculoskeletal: grossly normal, active ROM Psychiatric: A&O x4. Intact recent and remote memory, judgement and insight. Normal mood and affect. Assessment/Plan: Nataliya Morfin is a 48 y.o. No obstetric history on file. who presents today with AUB, likely indicative of typical perimenopause. Discussed expectant management, TVUS, EMB and medical management. Prefers TVUS and scheduled f/u w/Maryjane to review. US ordered - nervous about TVUS, discussed can convert to abdominal PRN. Claudia Andrews APRN documented in this encounter Plan of Treatment Upcoming Encounters Date Type Department Care Team (Latest Contact Info) Description 04/22/2024 9:45 AM EST Scheduled View Only Radiation Oncology at [address] [phone] 04/25/2024 8:30 AM EST Scheduled View Only Radiation Oncology at [address] [phone] 04/26/2024 3:00 PM EST Scheduled View Only Radiation Oncology at [address] [address] 04/26/2024 3:30 PM EST Office Visit Radiation Oncology at [address] [phone] Ofe Fonseca MD [facility] RADIATION [place] [address] 04/28/2024 2:45 PM EST Scheduled View Only Radiation Oncology at [address] [address] 04/29/2024 3:00 PM EST Scheduled View Only Radiation Oncology at [address] [phone] 05/02/2024 3:45 PM EST Scheduled View Only Radiation Oncology at [address] [phone] 05/03/2024 1:45 PM EST Scheduled View Only Radiation Oncology at [address] [address] 05/03/2024 2:15 PM EST Office Visit Radiation Oncology at [address] [phone] Ofe Fonseca MD [facility] [place] [address] 05/05/2024 8:15 AM EST Scheduled View Only Radiation Oncology at [address] [phone] 05/06/2024 12:30 PM EST Scheduled View Only Radiation Oncology at [address] [address] 05/09/2024 3:00 PM EST Scheduled View Only Radiation Oncology at [address] [address] 05/10/2024 2:30 PM EST Scheduled View Only Radiation Oncology at [address] [address] 05/10/2024 3:15 PM EST Office Visit Radiation Oncology at [address] [phone] Ofe Fonseca MD [facility] [place] [address] 05/11/2024 2:45 PM EST Scheduled View Only Radiation Oncology at [address] [address] 06/03/2024 3:30 PM EST Appointment Ultrasound at [place] [phone] Mira Hutchison [facility] [place] [address] 06/23/2024 4:00 PM EST Appointment Mammography/DXA at [place] [phone] Miryam Feliciano MD [facility] [place] [address] 07/12/2024 8:00 AM EDT Laboratory Appointment Lab 3[place] [phone] 07/12/2024 9:30 AM EDT Office Visit Nephrology Hypertension at [place] [phone] Sharmin Jean-Baptiste [facility] [place] [address] 07/13/2024 10:30 AM EDT Laboratory Appointment Lab at [facility] Hematology Oncology [address] [place] [phone] 07/13/2024 11:30 AM EDT Office Visit Hematology [place] [phone] Salena Alvares APRN [facility] [place] [address] 07/13/2024 12:45 PM EDT Appointment Hematology [place] [address] documented as of this encounter Visit Diagnoses Diagnosis Abnormal uterine bleeding (AUB) Perimenopausal Symptomatic menopausal or female climacteric states documented in this encounter Care Teams Director Of Marketing Operations Relationship Specialty Start Date [place] [address] PCP - General General Internal Medicine 08/04/22 documented as of this encounter
--- OUTSIDE RECORDS SUMMARY | 2024-04-22 00:24 | XMS_ITS | Encounter Summary ---
[place] [address] Care Team Providers Care Mobile Heavy Equipment Mechanic Name Role Phone Haylie Steward MD Primary Care Provider + [phone] Encounter Details Date Type Department Care Team (Latest Contact Info) Description 04/03/2023 3:00 PM EST Clinical Support Obstetrics [place] [phone] Abnormal uterine bleeding (AUB) Social History Tobacco Use Types Packs/Day Years Used Date Smoking Tobacco: Never Smokeless Tobacco: Never Alcohol Use Standard Drinks/Week Comments Not Currently 0 (1 standard drink = 0.6 oz pur e alcohol) [facility] Inpatient Questions Answer Date [...] as of this encounter Progress Notes * Hollie Shah, RN - 04/03/2023 3:00 PM EST Nataliya returns to the clinic with follow-up questions regarding her earlier appointment with Dr. Martini. Nataliya would like to discuss the possibility of EMB under conscious sedation. We discussed that thisis not something currently being offered in clinic, but likely can be performed [facility] atthe [facility] if she is unable to tolerate a pelvic exam. Message sent to attending to confirmMargot An would also like to discuss hysteroscopy versus EMB, and which might be a more effective procedure. documented in this encounter Plan of Treatment Upcoming Encounters Date Type Department Care Team (Latest Contact Info) Description 04/22/2024 9:45 AM EST Scheduled View Only Radiation Oncology at [address] [address] 04/25/2024 8:30 AM EST Scheduled View Only Radiation Oncology at [address] [phone] 04/26/2024 3:00 PM EST Scheduled View Only Radiation Oncology at [address] [address] 04/26/2024 3:30 PM EST Office Visit Radiation Oncology at [address] [phone] Ofe Fonseca MD [facility] [place] [address] 04/28/2024 2:45 PM EST Scheduled View Only Radiation Oncology at [address] [phone] 04/29/2024 3:00 PM EST Scheduled View Only Radiation Oncology at [address] [address] 05/02/2024 3:45 PM EST Scheduled View Only Radiation Oncology at [address] [address] 05/03/2024 1:45 PM EST Scheduled View Only Radiation Oncology at [address] [address] 05/03/2024 2:15 PM EST Office Visit Radiation Oncology at [address] [phone] Ofe Fonseca MD [facility] [address] 05/05/2024 8:15 AM EST Scheduled View Only Radiation Oncology at [address] [address] 05/06/2024 12:30 PM EST Scheduled View Only Radiation Oncology at [address] [address] 05/09/2024 3:00 PM EST Scheduled View Only Radiation Oncology at [address] [address] 05/10/2024 2:30 PM EST Scheduled View Only Radiation Oncology at [address] [address] 05/10/2024 3:15 PM EST Office Visit Radiation Oncology at [address] [address] Ofe Fonseca MD [facility] [address] 05/11/2024 2:45 PM EST Scheduled View Only Radiation Oncology at [address] [phone] 06/03/2024 3:30 PM EST Appointment Ultrasound at [place] [phone] Mira Hutchison APRN [facility] [place] [address] 06/23/2024 4:00 PM EST Appointment Mammography/DXA at [place] [phone] Miryam Feliciano MD [facility] [place] [address] 07/12/2024 8:00 AM EDT Laboratory Appointment Lab 3[place] [phone] 07/12/2024 9:30 AM EDT Office Visit Nephrology Hypertension at [place] [phone] Sharmin Jean-Baptiste, [facility] [place] [address] 07/13/2024 10:30 AM EDT Laboratory Appointment Lab at [facility] Hematology Oncology [address] [place] [phone] 07/13/2024 11:30 AM EDT Office Visit Hematology and Oncology at [place] [phone] Salena Alvares, [facility] [place] [address] 07/13/2024 12:45 PM EDT Appointment Hematology and Oncology at [place] [phone] documented as of this encounter Visit Diagnoses Diagnosis Abnormal uterine bleeding (AUB) documented in this encounter Care Teams Mobile Heavy Equipment Mechanic Relationship Specialty Start Date End Date Haylie Steward MD [facility] [place] [address] PCP - General General Internal Medicine 08/04/22 documented as of this encounter
--- OUTSIDE RECORDS SUMMARY | 2024-04-22 00:24 | XMS_ITS | Encounter Summary ---
Author Organization [facility] [place] [address] Care Team Providers Care Asphalt Worker Name Role Phone Haylie Steward MD Primary Care Provider + [phone] Encounter Details Date Type Department Care Team (Latest Contact Info) Description 04/23/2023 10:30 AM EST Office Visit Nephrology [place] [phone] Sharmin Jean-Baptiste APRN [facility] [place] [address] Stage 3b chronic kidney disease (CKD); Stage 3a chronic kidney disease (CKD); Hyperparathyroidism; Anemia, unspecified type Social History Tobacco Use Types Packs/Day Years Used Date Smoking Tobacco: Never Smokeless Tobacco: Never Alcohol Use Standard Drinks/Week Comments Not Currently 0 (1 standard drink = 0.6 oz pur e alcohol) [facility] Inpatient Questions Answer Date Recorded [...] Sign Reading Time Taken Comments Blood Pressure 138/74 04/23/2023 10:25 AM EST Pulse 74 04/23/2023 10:25 AM EST Temperature - - Respiratory Rate - - Oxygen Saturation - - Inhaled Oxygen Concentration - - Weight 60.3 kg (133 lb) 04/23/2023 10:25 AM EST Height 160 cm (5' 3) 04/23/2023 10:25 AM EST Body Mass Index 23.56 04/23/2023 10:25 AM EST documented in this encounter Progress Notes * Sharmin Jean-Baptiste, EXTENSION CLERK - 04/23/2023 10:30 AM EST Nephrology/Hypertension Clinic Follow-up Note [id number] ID: 48 y.o.year-old female being seen for follow up of CKD Stage 3 with history of lithium use. S: Interim history - Patient was last seen by nephrology on 01/06/23, when at that time her GFR was stable at 52. No hospitalizations, surgeries, or new diagnoses since last visit. Since last visit, Nataliya has been doing well. 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 She shares that her energy level is ok. She is sleeping well. No lightheadedness or dizziness. No SOB. No chest pain/pressure. Appetite good. Hydration good. No N/V/D. No changes in urination. Voiding several times a day. No bloody or foamy urine. No dysuria. No swelling. Bipolar symptoms controlled on current meds. No use of NSAIDs. Past Medical History: Patient Active Problem List Diagnosis Code Stage 3b chronic kidney disease (CKD) N18.32 Hyperparathyroidism E21.3 Anemia D64.9 Blessing intoxication, accidental or unintentional, initial encounter T56.891A Abnormal antibody titer R76.0 Benign neoplasm of skin D23.9 Bipolar affective, mixed F31.60 Chronic pansinusitis J32.4 Chronic tonsillitis J35.01 H/O toe surgery Z98.890 Herpes zoster without complication B02.9 Hypothyroidism E03.9 Irritable bowel syndrome K58.9 White coat syndrome without diagnosis of hypertension R03.0 Outpatient Encounter Medications as of 04/23/2023 Medication Sig Dispense Refill buPROPion XL (Wellbutrin [...] facility-administered encounter medications on file as of 04/23/2023. Allergies Allergen Reactions Nsaids (Non-Steroidal Anti-Inflammatory Drug) All interfere with lithium All interfere with lithium Tolmetin All interfere with lithium Ibuprofen Other reaction(s): Other, Other (See Comments), Unknown Patient states it affects her bipolar medication Blessing. O: There were no vitals filed for this visit. General: Arrived ambulatory. Alert, comfortable. Cooperative with exam. HEENT: Sclera white. Mucous membranes moist. No lymphadenopathy. CV: S1 and S2. HR regular. JVP not elevated. Resp: Lungs clear with no crackles or wheezes. Respirations non labored. Abd: Soft. + BS. No bruit. Non tender. : No CVA tenderness. Ext: Warm. No cyanosis. No edema. Skin: No rash. Neuro: Intact. Psych: Mood appropriate Labs: No results found for this or any previous visit (from the past 72 hour(s)). A/P: 48 y.o.year-old female seen for follow up for CKD Stage 3 with history of lithium use. CKD Stage 3a with GFR off 57 today, slowly improved since 2020. Risk factors for worsening renal function reviewed. Discussed importance of good blood pressure control, adequate hydration, and avoidance of NSAIDs. HTN - BP appears to be adequately controlled. Continue current management. Diabetes - Not present. Anemia - No anemia related to chronic disease. KDIGO Hgb goal in CKD is 10.0-11.5g/dL. Ferritin >100ng/dl, TSAT >20% Bone and mineral - PTH mildly elevated. She as recently started cholecalciferol 1,000u daily. Will recheck at next visit. Calcium and phos in range. KDIGO PTH [...] questions or concerns. >the total time spent [id number] AND total time the provider spent counseling was 30 minutes. CC: Haylie Steward MD @[email or web address]@ documented in this encounter Plan of Treatment Upcoming Encounters Date Type Department Care Team (Latest Contact Info) Description 04/22/2024 9:45 AM EST Scheduled View Only Radiation Oncology at [address] [phone] 04/25/2024 8:30 AM EST Scheduled View Only Radiation Oncology at [address] [phone] 04/26/2024 3:00 PM EST Scheduled View Only Radiation Oncology at [address] [phone] 04/26/2024 3:30 PM EST Office Visit Radiation Oncology at [address] [phone] Ofe Fonseca MD [facility] [place] [address] 04/28/2024 2:45 PM EST Scheduled View Only Radiation Oncology at [address] [phone] 04/29/2024 3:00 PM EST Scheduled View Only Radiation Oncology at [address] [phone] 05/02/2024 3:45 PM EST Scheduled View Only Radiation Oncology at [address] [phone] 05/03/2024 1:45 PM EST Scheduled View Only Radiation Oncology at [address] [phone] 05/03/2024 2:15 PM EST Office Visit Radiation Oncology at [address] [phone] Ofe Fonseca MD [facility] [place] [address] 05/05/2024 8:15 AM EST Scheduled View Only Radiation Oncology at [address] [phone] 05/06/2024 12:30 PM EST Scheduled View Only Radiation Oncology at [address] [phone] 05/09/2024 3:00 PM EST Scheduled View Only Radiation Oncology at [address] [phone] 05/10/2024 2:30 PM EST Scheduled View Only Radiation Oncology at [address] [phone] 05/10/2024 3:15 PM EST Office Visit Radiation Oncology at [address] [phone] Ofe Fonseca MD [facility] [place] [address] 05/11/2024 2:45 PM EST Scheduled View Only Radiation Oncology at [address] [phone] 06/03/2024 3:30 PM EST Appointment [place] [address] Mira Hutchison APRN [facility] [place] [address] 06/23/2024 4:00 PM EST Appointment Mammography/DXA at [place] [phone] Miryam Feliciano MD [facility] [place] [address] 07/12/2024 8:00 AM EDT Laboratory Appointment Lab [address] [place], [place] [phone] 07/12/2024 9:30 AM EDT Office Visit Nephrology Hypertension at [place] [phone] Sharmin Jean-Baptiste, [facility] [place] [address] 07/13/2024 10:30 AM EDT Laboratory Appointment Lab at [facility] Hematology Oncology [address] [place], [place] [phone] 07/13/2024 11:30 AM EDT Office Visit Hematology and Oncology at [place] [phone] Salena Alvares, [facility] [place] [address] 07/13/2024 12:45 PM EDT Appointment Hematology and Oncology at [place] [phone] documented as of this encounter Results * Protein/Creatinine Ratio, urine (04/23/2023 9:26 AM EST) Creatinine, Urine 12 mg/dL [facility] Protein, Urine <6 0 - 12 mg/dL [facility] Protein / Creatinine Ratio, Urine <0.5 ratio [facility] Urine 04/23/2023 9:26 AM EST 04/23/2023 9:32 AM EST Narrative Resulting Agency Comment Spec In Lab Sharmin Jean-Baptiste EXTENSION CLERK URINE ORDERABLES Performing Organization Address City/[facility]/ZIP Co de Phone Number [facility] [place] [address] * (ABNORMAL) _Urinalysis with microscopic (04/23/2023 9:26 AM EST) Glucose, Urine Dipstick Negative Negative mg/dL [facility] Protein, Urine Dipstick Negative Negative mg/dL [facility] Bilirubin, Urine Dipstick Negative Negative mg/dL [facility] Comment: Clinical correlation required for positive Urine Bilirubin results as false positive may occur with some drugs and drug related products. If a false positive is suspected a serum total bilirubin should be considered if clinically indicated. Urobilinogen, Urine Dipstick Normal Normal mg/dL [facility] pH, Urn (dipstick) 6.5 5.0 - 8.0 [facility] Blood, Urine Dipstick Trace(A) Negative mg/dL [facility] Ketone, Urine Dipstick Negative Negative mg/dL [facility] Nitrite, Urine Dipstick Negative Negative [facility] Leukocytes, Urine Dipstick Negative Negative mcL [facility] Appearance, Urine Dipstick Clear Clear [facility] Specific [place] Urine Automated 1.005 1.005 - 1.030 [facility] Color, Urine Dipstick Yellow Yellow [facility] RBC, Urine 0 0 - 4 /HPF [facility] WBC, Urine 0 0 - 5 /HPF [facility] Squamous Epithelial Cells Raw Data, Urine 1 <=4 /HPF [facility] Urine 04/23/2023 9:26 AM EST 04/23/2023 9:32 AM EST Narrative Resulting Agency Comment Spec In Lab Sharmin Jean-Baptiste EXTENSION CLERK URINE ORDERABLES Performing Organization Address City/[facility]/ZIP Co de Phone Number [facility] [place] [address] * Vitamin D, 25-Hydroxy (04/23/2023 8:52 AM EST) Vitamin D Total 25 OH 31 21 - 100 ng/mL [facility] Vit D Interp Sufficient [facility] Blood 04/23/2023 8:52 AM EST 04/23/2023 9:00 AM EST Narrative Resulting Agency Comment Spec In Lab Sharmin L Estiven EXTENSION CLERK CHEMISTRY ORDERAB LES Performing Organization Address City/[facility] Co de Phone Number [facility] [place] [address] * (ABNORMAL) PTH (04/23/2023 8:52 AM EST) Parathyroid Hormone 94(H) 15 - 65 pg/mL [facility] Blood 04/23/2023 8:52 AM EST 04/23/2023 9:00 AM EST Narrative Resulting Agency Comment Spec In Lab Sharmin L Estiven EXTENSION CLERK CHEMISTRY ORDERAB LES Performing Organization Address [facility] Co de Phone Number [facility] [place] [address] * Phosphorus (04/23/2023 8:52 AM EST) Phosphorus 2.9 2.5 - 4.5 mg/dL [facility] Blood 04/23/2023 8:52 AM EST 04/23/2023 9:00 AM EST Narrative Resulting Agency Comment Spec In Lab Sharmin L Estiven EXTENSION CLERK CHEMISTRY ORDERAB LES Performing Organization Address [facility] Co de Phone Number [facility] [place] [address] * (ABNORMAL) Iron and TIBC (04/23/2023 8:52 AM EST) Iron 71 30 - 150 mcg/dL [facility] TIBC 397 250 - 450 mcg/dL [facility] Iron Saturation 18(L) 20 - 50 % [facility] Blood 04/23/2023 8:52 AM EST 04/23/2023 9:00 AM EST Narrative Resulting Agency Comment Spec In Lab Sharmin L Estiven EXTENSION CLERK CHEMISTRY ORDERAB LES Performing Organization Address City/[facility]/ZIP Co de Phone Number [facility] [place] [address] * Ferritin (04/23/2023 8:52 AM EST) Ferritin 18 6 - 175 ng/mL [facility] Comment: Please note that as of 04/08/2023, the reference intervals for Ferritin have been updated. Blood 04/23/2023 8:52 AM EST 04/23/2023 9:00 AM EST Narrative Resulting Agency Comment Spec In Lab Sharmin Jean-Baptiste EXTENSION CLERK CHEMISTRY ORDERAB LES Performing Organization Address [facility] Co de Phone Number [facility] [place] [address] * (ABNORMAL) Basic Metabolic Panel (non-fasting) (04/23/2023 8:52 AM EST) Glucose 77 65 - 199 mg/dL [facility] Comment:Diabetes: >=200 mg/d L plus symptoms Blood Urea Nitrogen 26(H) 8 - 18 mg/dL [facility] Creatinine 1.17 0.70 - 1.20 mg/dL [facility] Sodium 142 135 - 145 mmol/L [facility] Potassium 4.5 3.5 - 5.0 mmol/L [facility] Comment: Please note: ??Patients with WBC >100,000 may have falsely elevated Potassium levels. ??For accurate Potassium quantification in these patients send serum separator tube (gold top) for subsequent determinations. ??Contact the Clinical Chemistry Laboratory if there are any questions. Chloride 108(H) 98 - 107 mmol/L [facility] Carbon Dioxide 26 22 - 31 mmol/L [facility] Anion Gap 8 5 - 15 mmol/L [facility] Calcium 10.1 8.5 - 10.5 mg/dL [facility] Est Glomerular Filtration Rate 57(L) >=60 mL/min/1. 73 m?? [facility] Comment: This patient's estimated GFR [...] and symptoms in addition to eGFR. Blood 04/23/2023 8:52 AM EST 04/23/2023 9:00 AM EST Narrative Resulting Agency Comment Spec In Lab Sharmin L Estiven EXTENSION CLERK CHEMISTRY ORDERAB LES Performing Organization Address City/[facility]/ZIP Co de Phone Number [facility] [place] [address] * Albumin Level (04/23/2023 8:52 AM EST) Albumin 4.3 3.2 - 5.2 g/dL [facility] Blood 04/23/2023 8:52 AM EST 04/23/2023 9:00 AM EST Narrative Resulting Agency Comment Spec In Lab Sharmin L Estiven EXTENSION CLERK CHEMISTRY ORDERAB LES Performing Organization Address City/[facility]/ZIP Co de Phone Number [facility] [place] [address] documented in this encounter Visit Diagnoses Diagnosis Stage 3b chronic kidney disease (CKD) Stage 3a chronic kidney disease (CKD) Hyperparathyroidism Hyperparathyroidism, unspecified Anemia, unspecified type documented in this encounter Care Teams Asphalt Worker Relationship Specialty Start Date [place] [address] PCP - General General Internal Medicine 08/04/22 documented as of this encounter
--- OUTSIDE RECORDS SUMMARY | 2024-04-22 00:24 | XMS_ITS | Encounter Summary ---
Author Organization [facility] [place] [address] Care Team Providers Care Airline Pilot Name Role Phone Haylie Steward MD Primary Care Provider + [phone] Encounter Details Date Type Department Care Team (Late st Contact Info) Description 02/14/2023 10:52 AM EDT - 02/14/2023 11:59 PM EDT Hospital Encounter [facility] Lab [address] [place] [phone] Angela Heredia MD [facility] [place] [address] Discharge Disposition: Home Social History Tobacco Use [...] for Pain. lithium 300 mg capsule 04/11/202104/19 pilocarpine (Salagen) 5 mg tablet Take 1 tablet by mouth 3 times daily. 90 tablet 2 02/11/2023 04/15/2023 buPROPion XL (Wellbutrin XL) 150 mg XL 24 hr tablet Take 1 tablet by mouth every morning. 90 tablet 02/11/2023 04/15/2023 divalproex ER (Depakote ER) 250 mg ER 24 hr tablet 2 tabs BID. 120 tablet 02 02/11/2023 04/15/2023 levothyroxine (Synthroid) 75 mcg tablet Take 1 tablet by mouth every morning. 90 tablet 02/02/2023 04/15/2023 ferrous sulfate EC (FeroSul) 325 mg (65 mg iron) DR tablet Take 1 tablet by mouth daily. 30 tablet 3 12/08/2022 02/25/2023 Alosetron (Lotronex) 0.5 mg tablet Take 0.5 mg by mouth 2 times daily. 07/24/2022 07/07/2023 documented as of this encounter Plan of Treatment Upcoming Encounters Date Type Department Care Team (Latest Contact Info) Description 04/22/2024 9:45 AM EST Scheduled View Only Radiation Oncology at [address] [phone] 04/25/2024 8:30 AM EST Scheduled View Only Radiation Oncology at [address] [phone] 04/26/2024 3:00 PM EST Scheduled View Only Radiation Oncology at [address] [phone] 04/26/2024 3:30 PM EST Office Visit Radiation Oncology at [address] [phone] Ofe Fonseca MD [facility] [place] [address] 04/28/2024 2:45 PM EST Scheduled View Only Radiation Oncology at [address] [phone] 04/29/2024 3:00 PM EST Scheduled View Only Radiation Oncology at [address] [phone] 05/02/2024 3:45 PM EST Scheduled View Only Radiation Oncology at [address] [phone] 05/03/2024 1:45 PM EST Scheduled View Only Radiation Oncology at [address] [phone] 05/03/2024 2:15 PM EST Office Visit Radiation Oncology at [address] [phone] Ofe Fonseca MD [facility] [place] [address] 05/05/2024 8:15 AM EST Scheduled View Only Radiation Oncology at [address] [phone] 05/06/2024 12:30 PM EST Scheduled View Only Radiation Oncology at [address] [phone] 05/09/2024 3:00 PM EST Scheduled View Only Radiation Oncology at [address] [phone] 05/10/2024 2:30 PM EST Scheduled View Only Radiation Oncology at [address] [phone] 05/10/2024 3:15 PM EST Office Visit Radiation Oncology at [address] [phone] Ofe Fonseca MD [facility] [place] [address] 05/11/2024 2:45 PM EST Scheduled View Only Radiation Oncology at [address] [phone] 06/03/2024 3:30 PM EST Appointment Ultrasound at [place] [phone] Mira Hutchison, [facility] [place] [address] 06/23/2024 4:00 PM EST Appointment Mammography/DXA at [place] [phone] Miryam Feliciano MD [facility] [place] [address] 07/12/2024 8:00 AM EDT Laboratory Appointment Lab [address] [place], [place] [phone] 07/12/2024 9:30 AM EDT Office Visit Nephrology Hypertension at [place] [phone] Sharmin Jean-Baptiste, [facility] [address] 07/13/2024 10:30 AM EDT Laboratory Appointment Lab at [facility] Hematology Oncology [address] [place] [phone] 07/13/2024 11:30 AM EDT Office Visit Hematology [place] [phone] Salena Alvares, [facility] [place] [address] 07/13/2024 12:45 PM EDT Appointment Hematology [place] [address] documented as of this encounter Procedures Procedure Name Priority Date/Time Associated Diagnosis Comments U24 HRS AND VOLUME Routine 02/13/2023 6: 46 AM EDT U24 HRS AND VOLUME Routine 02/13/2023 6: 46 AM EDT CALCIUM, URINE, 24 HOUR Routine 02/13/2023 6:46 AM EDT CREATININE, URINE, 24 HOUR Routine 02/13/2023 6:46 AM EDT documented in this encounter Results * U24 Hrs and Volume (02/13/2023 6:46 AM EDT) Hours Collected 24 hour(s) [facility] Total Volume 3,800 mL [facility] Urine 02/13/2023 6:46 AM EDT 02/14/2023 5:54 PM EDT Narrative Resulting Agency Comment Spec In Lab Angela Heredia MD CHEMISTRY ORDERABLES Performing Organization Address City/[facility]/ZIP Co de Phone Number [facility] [place] [address] * Calcium, urine, 24 hour (02/13/2023 6:46 AM EDT) Ca Concentration, U24 1.4 mg/dL [facility] Calcium, 24 Hour Urine 53.2 50.0 - 300.0 mg/24hr [facility] Comment:Reference Range: 50. 0-300.0 mg/24 hour based on diet. Urine 02/13/2023 6:46 AM EDT 02/14/2023 5:54 PM EDT Narrative Resulting Agency Comment Spec In Lab Angela Heredia MD URINE ORDERABLES [facility] [place] [address] * U24 Hrs and Volume (02/13/2023 6:46 AM EDT) Hours Collected 24 hour(s) [facility] Total Volume 3,800 mL [facility] Urine 02/13/2023 6:46 AM EDT 02/14/2023 5:54 PM EDT Narrative Resulting Agency Comment Spec In Lab Angela Heredia MD CHEMISTRY ORDERABLES Performing Organization Address City/[facility]/ZIP Co de Phone Number [facility] [place] [address] * (ABNORMAL) Creatinine, urine, 24 hour (02/13/2023 6:46 AM EDT) Cre Concentration, U24 10 mg/dL [facility] Creatinine, 24 Hour Urine 0.38(L) 0.70 - 1.60 g/24hr [facility] Urine 02/13/2023 6:46 AM EDT 02/14/2023 5:54 PM EDT Narrative Resulting Agency Comment Spec In Lab Angela Heredia MD URINE ORDERABLES Performing Organization Address City/[facility]/ZIP Co de Phone Number [facility] [place] [address] documented in this encounter Visit Diagnoses Not on filedocumented in this encounter Care Teams Airline Pilot Relationship Specialty Start Date End Date Haylie Steward MD [facility] [place] [address] PCP - General General Internal Medicine 08/04/22 documented as of this encounter
--- OUTSIDE RECORDS SUMMARY | 2024-04-22 00:24 | XMS_ITS | Encounter Summary ---
Author Organization [facility] [place] [address] Care Team Providers Care Manager Fast Food Name Role Phone Haylie Steward MD Primary Care Provider + [phone] Encounter Details Date Type Department Care Team (Late st Contact Info) Description 05/30/2023 Telephone [place] [phone] Penny Rosales Social History Tobacco Use Types Packs/Day Years [...] encounter Miscellaneous Notes * Telephone Encounter - Penny Rosales - 05/30/2023 11:51 AM EST Nataliya Morfin [id number] Diagnosis/Indication: DARRIUS; diarrhea Please review patient chart to confirm if previous Endoscopy procedure was performed within system. If yes, take note of Anesthesia type used. If previous procedure found, and with MAC/propofol Anesthesia support was used, schedule this procedure with Anesthesia and skip the Anesthesia portion of questions. If not performed within system, not performed at all, or performed with IVCS, ask Anesthesia questions. SCHEDULING QUESTIONS (ask all patient these questions) Have you ever had a/an Upper Endoscopy & Colonoscopy before? Yes: Date 01/22/14 [facility] If yes, did you have any problems with the procedure (such as waking up during the procedure, pain or difficulties afterwards, etc.)? No What type of sedation was used: MAC Do you take any blood thinners or have you been diagnosed with a bleeding disorder that increases your risk of bleeding with procedures? No Do you have a Pacemaker or Defibrillator device? If yes, send pool message to Cardiology with patient information and date or procedure. No Are you a diabetic? If yes, call PCP/managing provider to discuss use of prep and any questions or concerns related to. No Do you take any iron supplements or vitamins that contain iron? No Do you have a preference regarding the gender of your provider? No ANESTHESIA QUESTIONS (YES to any question, please book with Anesthesia support) Have you ever been diagnosed with Pulmonary Hypertension and/or Congential Heart Disease? No Have you been diagnosed with A-Fib (atrial fibrillation) that is NOT being well controled with medications? No Have you ever had an allergic or adverse reaction to Fentanyl or Versed? No Have you had a problem with sedation or anesthesia? (Waking up during procedure, extreme confusion after, etc.) No Do you have a diagnosis of Obstructive Sleep Apnea that requires the use of a c- pap machine? No Do you use an oxygen tank at home? No Do you use a rescue inhaler more than twice per day? (COPD, severe asthma) No Do you experience breathing problems when you lay flat for a period of time? No Do you take prescription narcotic pain medications, including suboxone or methodone? No SCHEDULING CONFIRMATIONS: Please note any and all parts of your conversation with the patient here. We offer all new patients an opportunity to have an appointment with one of our associate care providers to learn more about your upcoming procedure, ask questions and get answers. These appointmentsare offered via telehealth. Would you be interested in scheduling this appointment? (Only ask if NEW referral patient; skip this question if GI provider ordered the procedure.) No Is there any other information or concerns you would like to us to share with your care team in relation to your upcoming scheduled procedure? No You must have a responsible republican who will drive you to your procedure, stay on campus for the entire duration of your procedure, and drive you home from your procedure. Who will likely be your entry driver operator for the procedure? Please Verify the height and weight, and adjust if height and/or weight have changed Estimated body mass index is 23.56 kg/m?? as calculated from the following: Height as of 04/23/23: 160 cm (5' 3). Weight as of 04/23/23: 60.3 kg (133 lb). Age:48 y.o. documented in this encounter Plan of Treatment Upcoming Encounters Date Type Department Care Team (Latest Contact Info) Description 04/22/2024 9:45 AM EST Scheduled View Only Radiation Oncology at [address] [phone] 04/25/2024 8:30 AM EST Scheduled View Only Radiation Oncology at [address] [phone] 04/26/2024 3:00 PM EST Scheduled View Only Radiation Oncology at [address] [address] 04/26/2024 3:30 PM EST Office Visit Radiation Oncology at [address] [address] Ofe Fonseca MD [facility] RADIATION [place] [address] 04/28/2024 2:45 PM EST Scheduled View Only Radiation Oncology at [address] [address] 04/29/2024 3:00 PM EST Scheduled View Only Radiation Oncology at [address] [address] 05/02/2024 3:45 PM EST Scheduled View Only Radiation Oncology at [address] [address] 05/03/2024 1:45 PM EST Scheduled View Only Radiation Oncology at [address] [phone] 05/03/2024 2:15 PM EST Office Visit Radiation Oncology at [address] [address] Ofe Fonseca MD [facility] RADIATION [place] [address] 05/05/2024 8:15 AM EST Scheduled View Only Radiation Oncology at [address] [address] 05/06/2024 12:30 PM EST Scheduled View Only Radiation Oncology at [address] [address] 05/09/2024 3:00 PM EST Scheduled View Only Radiation Oncology at [address] [address] 05/10/2024 2:30 PM EST Scheduled View Only Radiation Oncology at [address] [address] 05/10/2024 3:15 PM EST Office Visit Radiation Oncology at [address] [address] Ofe Fonseca MD [facility] RADIATION [place] [address] 05/11/2024 2:45 PM EST Scheduled View Only Radiation Oncology at [address] [address] 06/03/2024 3:30 PM EST [place] [address] Mira Hutchison APRN [facility] [place] [address] 06/23/2024 4:00 PM EST Appointment Mammography/[place] [address] Miryam Feliciano MD [facility] [place] [address] 07/12/2024 8:00 AM EDT Laboratory Appointment Lab [address] [address] 07/12/2024 9:30 AM EDT Office Visit Nephrology Hypertension at [place] [address] Sharmin Jean-Baptiste, [facility] [place] [address] 07/13/2024 10:30 AM EDT Laboratory Appointment Lab at [place] Hematology Oncology [address] [place] [address] 07/13/2024 11:30 AM EDT Office Visit Hematology and Oncology at [place] [address] Salena Alvares, [facility] [place] [address] 07/13/2024 12:45 PM EDT Appointment Hematology and Oncology at [place] [address] documented as of this encounter Visit Diagnoses Not on filedocumented in this encounter Care Teams Manager Fast Food Relationship Specialty Start Date End [place] [address] PCP - General General Internal Medicine 08/04/22 documented as of this encounter
--- OUTSIDE RECORDS SUMMARY | 2024-04-22 00:24 | XMS_ITS | Encounter Summary ---
Author Organization [facility] [place] [address] Care Team Providers Care Weighbridge Operator Name Role Phone Haylie Steward MD Primary Care Provider [phone] Encounter Details Date Type Department Care Team (Latest Contact Info) Description 02/17/2023 Travel Social History Tobacco Use Types Packs/Day [...] EST Scheduled View Only Radiation Oncology at [address] [phone] 04/25/2024 8:30 AM EST Scheduled View Only Radiation Oncology at [address] [address] 04/26/2024 3:00 PM EST Scheduled View Only Radiation Oncology at [address] [address] 04/26/2024 3:30 PM EST Office Visit Radiation Oncology at [address] [address] Ofe Fonseca MD [facility] [place] [address] 04/28/2024 2:45 PM EST Scheduled View Only Radiation Oncology at [address] [address] 04/29/2024 3:00 PM EST Scheduled View Only Radiation Oncology at [address] [address] 05/02/2024 3:45 PM EST Scheduled View Only Radiation Oncology at [address] [address] 05/03/2024 1:45 PM EST Scheduled View Only Radiation Oncology at [address] [address] 05/03/2024 2:15 PM EST Office Visit Radiation Oncology at [address] [phone] Ofe Fonseca MD [facility] [address] 05/05/2024 8:15 AM EST Scheduled View Only Radiation Oncology at [address] [address] 05/06/2024 12:30 PM EST Scheduled View Only Radiation Oncology at [address] [address] 05/09/2024 3:00 PM EST Scheduled View Only Radiation Oncology at [address] [address] 05/10/2024 2:30 PM EST Scheduled View Only Radiation Oncology at [address] [address] 05/10/2024 3:15 PM EST Office Visit Radiation Oncology at [address] [phone] Ofe Fonseca MD [facility] [place] [address] 05/11/2024 2:45 PM EST Scheduled View Only Radiation Oncology at [address] [phone] 06/03/2024 3:30 PM EST Appointment [place] [phone] Mira Hutchison, [facility] [place] [address] 06/23/2024 4:00 PM EST Appointment Mammography/[place] [phone] Miryam Feliciano MD [facility] [place] [address] 07/12/2024 8:00 AM EDT Laboratory Appointment Lab [address] [place] [phone] 07/12/2024 9:30 AM EDT Office Visit Nephrology [place] [phone] Sharmin Jean-Baptiste [facility] [place] [address] 07/13/2024 10:30 AM EDT Laboratory Appointment Lab at [facility] Hematology Oncology [address] [place] [phone] 07/13/2024 11:30 AM EDT Office Visit Hematology [place] [address] Salena Alvares APRN [facility] [place] [address] 07/13/2024 12:45 PM EDT Appointment Hematology [place] [address] documented as of this encounter Visit Diagnoses Not on filedocumented in this encounter Care Teams Weighbridge Operator Relationship Specialty Start Date [place] [address] PCP - General General Internal Medicine 08/04/22 documented as of this encounter
--- OUTSIDE RECORDS SUMMARY | 2024-04-22 00:24 | XMS_ITS | Encounter Summary ---
Author Organization [facility] [place] [address] Care Team Providers Care Engineering Writer Name Role Phone Haylie Steward MD Primary Care Provider + [phone] Encounter Details Date Type Department Care Team (Latest Contact Info) Description 03/18/2023 2:40 PM EST - 03/18/2023 11:59 PM [facility] Hospital [place] [address] Ronaldo Andrews APRN [facility] OBSTETRICS [place] [address] Abnormal uterine bleeding (AUB); Perimenopausal Discharge Disposition: Home Social History Tobacco Use Types Packs/Day Years Used Date Smoking Tobacco: Never Smokeless Tobacco: Never Alcohol Use Standard Drinks/Week Comments Not Currently 0 (1 standard drink = 0.6 oz pur e alcohol) [facility] Inpatient Questions Answer [...] mouth every morning. 90 tablet 02/02/2023 04/15/2023 Alosetron (Lotronex) 0.5 mg tablet Take 0.5 mg by mouth 2 times daily. 07/24/2022 07/07/2023 documented as of this encounter Plan of Treatment Upcoming Encounters Date Type Department Care Team (Latest Contact Info) Description 04/22/2024 9:45 AM EST Scheduled View Only Radiation Oncology at [address] [address] 04/25/2024 8:30 AM EST Scheduled View Only Radiation Oncology at [address] [address] 04/26/2024 3:00 PM EST Scheduled View Only Radiation Oncology at [address] [address] 04/26/2024 3:30 PM EST Office Visit Radiation Oncology at [address] [phone] Ofe Fonseca MD [facility] [place] [address] 04/28/2024 2:45 PM EST Scheduled View Only Radiation Oncology at [address] [address] 04/29/2024 3:00 PM EST Scheduled View Only Radiation Oncology at [address] [address] 05/02/2024 3:45 PM EST Scheduled View Only Radiation Oncology at [address] [address] 05/03/2024 1:45 PM EST Scheduled View Only Radiation Oncology at [address] [phone] 05/03/2024 2:15 PM EST Office Visit Radiation Oncology at [address] [address] Ofe Fonseca MD [facility] [place] [address] 05/05/2024 8:15 AM EST Scheduled View Only Radiation Oncology at [address] [address] 05/06/2024 12:30 PM EST Scheduled View Only Radiation Oncology at [address] [phone] 05/09/2024 3:00 PM EST Scheduled View Only Radiation Oncology at [address] [address] 05/10/2024 2:30 PM EST Scheduled View Only Radiation Oncology at [address] [phone] 05/10/2024 3:15 PM EST Office Visit Radiation Oncology at [address] [address] Ofe Fonseca MD [facility] [place] [address] 05/11/2024 2:45 PM EST Scheduled View Only Radiation Oncology at [address] [address] 06/03/2024 3:30 PM EST Appointment Ultrasound at [place] [phone] Mira Hutchison [facility] [place] [place] [address] 06/23/2024 4:00 PM EST Appointment Mammography/DXA at [place] [phone] Miryam Feliciano MD [facility] [place] [address] 07/12/2024 8:00 AM EDT Laboratory Appointment Lab [address] [place], [place] [phone] 07/12/2024 9:30 AM EDT Office Visit Nephrology Hypertension at [place] [phone] Sharmin Jean-Baptiste, [facility] [place] [address] 07/13/2024 10:30 AM EDT Laboratory Appointment Lab at [facility] Hematology Oncology [address] [place], [place] [phone] 07/13/2024 11:30 AM EDT Office Visit Hematology and Oncology at [place] [phone] Salena Alvares, [facility] [address] 07/13/2024 12:45 PM EDT Appointment Hematology and Oncology at [place] [phone] documented as of this encounter Procedures Procedure Name Priority Date/Time Associated Diagnosis Comments US PELVIS COMPLETE Routine 03/18/2023 3: 12 PM EST Abnormal uterine bleeding (AUB) Perimenopausal documented in this encounter Results * US Pelvis Complete (03/18/2023 3:12 PM EST) Anatomical Region Laterality Modality Pelvis Ultrasound 03/18/2023 3:10 PM EST Impressions 03/18/2023 5:43 PM EST Please note exam was performed transabdominally as patient was unable to tolerate the endovaginal probe, which limits detailed assessment of the pelvic structures. 1. ??Enlarged fibroid uterus, largest fibroid seen posteriorly, subserosal in location measuring nearly 8 cm in maximal diameter. Other fibroids displace the endometrium, cannot definitively exclude intracavitary involvement on this exam. 2. ??Suboptimal assessment of the endometrium, measured thickness of approximately 7 mm is within normal limits for a menstruating woman. 3. ??Normal appearance of the left ovary. 4. ??Limited visualization of the right ovary, grossly unremarkable as visualized. I have personally reviewed the image(s) and the resident's interpretation and agree with the findings, Dawn Sanchez MD at 03/18/2023 5:36 PM Thank you for letting us participate in the care of this patient. If you are a health care provider and have any questions regarding this report, please contact the number above. For patients who have questions, please contact the health childcare center director that requested your imaging first. ? Dawn Sanchez Kierra Assistant Scientist Electronically Signed Final Report ?? 03/18/2023 05:43 pm Narrative 03/18/2023 5:43 PM EST Gynecological Report ?(Signed Final 03/18/2023 05:43 pm) PATIENT INFO: ID #: ? [id number] ?: ??[birth year] (48 yrs)(F) Name: ? EDTYA MORFIN ? Visit Date: 03/18/2023 03:10 pm PERFORMED BY: Attending: ?Laura NÚÑEZ, Dwan Wiseman Resident: ? Kalpesh NÚÑEZ, Saw Performed By: ? Betzy Miranda RDMS Referred By: ?RONALDO ANDREWS Location: ? [place] SERVICE(S) PROVIDED: UPEL - Pelvis Complete - [id number] ?[id number] INDICATIONS: NEEDS FEMALE TECH. AUB - likely typical perimenopausal; History of: Abnormal bleeding TECHNIQUE/SCAN QUALITY: Scan Quality: ?? Transabdominal US. ??Pt unable to ? tolerate endovaginal probe. -------- HISTORY: -------- Age: ?? 48 LMP: ?? 03/14/23 ?Day Of Cycle: ?? 5 Menses: ?Irregular Hormone Treatment: ? None per pt ------- UTERUS: ------- Uterus: ? Visualized Position: ?? Anteverted Size (cm) ?L: ??9.7 ? W: ?? 5.3 ?H: ??10.3 Description: ?? Multiple fibroids - Largest 2 measured. ------- MYOMAS: ------- Site ? L(cm) ? W(cm) ? D(cm) ? Location Posterior ?7.9 ? 8.1 ? 6.5 ? Subserosal Posterior right ?2.2 ? 2.2 ? 2.7 ? Intramural, ?displaces ?endometrium Blood Flow ?RI ? PI ?Comments ENDOMETRIUM: Endometrium: ?Normal appearance Thickness(mm): ?6.8 RIGHT OVARY: Status: ?? Limited visualization Size (cm) ?L: ??2.6 ? W: ?? 1.5 ?H: ??1.0 Vol (ml): ?2.0 LEFT OVARY: Status: ?? Visualized Size (cm) ?L: ??1.5 ? W: ?? 1.4 ?H: ??1.1 Vol (ml): ?1.2 Morphology: ?Normal appearance Procedure Note Dawn Sanchez MD - 03/18/2023 Gynecological Report (Signed Final 03/18/2023 05:43 pm) PATIENT INFO: ID #: [id number] : [birth year] (48 yrs)(F) Name: EDYTA MORFIN Visit Date: 03/18/2023 03:10 pm PERFORMED BY: Attending: Dawn Sanchez MD Resident: Saw Posey MD Performed By: Betzy Miranda RDMS Referred By: RONALDO ANDREWS Location: [place] SERVICE(S) PROVIDED: UPEL - Pelvis Complete - [id number] INDICATIONS: NEEDS FEMALE TECH. AUB - likely typical perimenopausal; History of: Abnormal bleeding TECHNIQUE/SCAN QUALITY: Scan Quality: Transabdominal US. Pt unable to tolerate endovaginal probe. -------- HISTORY: -------- Age: 48 LMP: 03/14/23 Day Of Cycle: 5 Menses: Irregular Hormone Treatment: None per pt ------- UTERUS: ------- Uterus: Visualized Position: Anteverted [...] the right ovary, grossly unremarkable as visualized. I have personally reviewed the image(s) and the resident's interpretation and agree with the findings, Dawn Sanchez MD at 03/18/2023 5:36 PM Thank you for letting us participate in the care of this patient. If you are a health care provider and have any questions regarding this report, please contact the number above. For patients who have questions, please contact the health childcare center director that requested your imaging first. Dawn Sanchez, [facility] Assistant Scientist Electronically Signed Final Report 03/18/2023 05:43 pm Ronaldo Andrews APRN IMG US PELVIC ORDERABLES documented in this encounter Visit Diagnoses Diagnosis Abnormal uterine bleeding (AUB) Perimenopausal Symptomatic menopausal or female climacteric states documented in this encounter Care Teams Engineering Writer Relationship Specialty Start Date [place] [address] PCP - General General Internal Medicine 08/04/22 documented as of this encounter
--- OUTSIDE RECORDS SUMMARY | 2024-04-22 00:24 | XMS_ITS | Encounter Summary ---
Author Organization [facility] [place] [address] Care Team Providers Care Sow Farm Technician Name Role Phone Haylie Steward MD Primary Care Provider [phone] Encounter Details Date Type Department Care Team (Latest Contact Info) Description 04/03/2023 Travel Social History Tobacco Use Types Packs/Day [...] Scheduled View Only Radiation Oncology at [address] [phone] 04/25/2024 8:30 AM EST Scheduled View Only Radiation Oncology at [address] [address] 04/26/2024 3:00 PM EST Scheduled View Only Radiation Oncology at [address] [address] 04/26/2024 3:30 PM EST Office Visit Radiation Oncology at [address] [phone] Ofe Fonseca MD [facility] [place] [address] 04/28/2024 2:45 PM EST Scheduled View Only Radiation Oncology at [address] [address] 04/29/2024 3:00 PM EST Scheduled View Only Radiation Oncology at [address] [address] 05/02/2024 3:45 PM EST Scheduled View Only Radiation Oncology at [address] [address] 05/03/2024 1:45 PM EST Scheduled View Only Radiation Oncology at [address] [address] 05/03/2024 2:15 PM EST Office Visit Radiation Oncology at [address] [address] Ofe Fonseca MD [facility] [place] [address] 05/05/2024 8:15 AM EST Scheduled View Only Radiation Oncology at [address] [address] 05/06/2024 12:30 PM EST Scheduled View Only Radiation Oncology at [address] [address] 05/09/2024 3:00 PM EST Scheduled View Only Radiation Oncology at [address] [address] 05/10/2024 2:30 PM EST Scheduled View Only Radiation Oncology at [address] [address] 05/10/2024 3:15 PM EST Office Visit Radiation Oncology at [address] [phone] Ofe Fonseca MD [facility] [place] [address] 05/11/2024 2:45 PM EST Scheduled View Only Radiation Oncology at [address] [phone] 06/03/2024 3:30 PM EST [place] [phone] Mira Hutchison, [facility] [place] [address] 06/23/2024 4:00 PM EST Appointment Mammography/[place] [phone] Miryam Feliciano MD [facility] [place] [address] 07/12/2024 8:00 AM EDT Laboratory Appointment Lab [address] [place] [phone] 07/12/2024 9:30 AM EDT Office Visit Neph[place] [phone] Sharmin Jean-Baptiste [facility] [place] [address] 07/13/2024 10:30 AM EDT Laboratory Appointment Lab at [facility] Hematology Oncology [address] [place] [phone] 07/13/2024 11:30 AM EDT Office Visit Hematology [place] [address] Salnea Alvares APRN [facility] [place] [address] 07/13/2024 12:45 PM EDT Appointment Hematology [place] [phone] documented as of this encounter Visit Diagnoses Not on filedocumented in this encounter Care Teams Sow Farm Technician Relationship Specialty Start Date [place] [address] PCP - General General Internal Medicine 08/04/22 documented as of this encounter
--- OUTSIDE RECORDS SUMMARY | 2024-04-22 00:24 | XMS_ITS | Encounter Summary ---
Author Organization [facility] [address] Care Team Providers Care Sheet Metal Roofer Name Role Phone Haylie Steward MD Primary Care Provider [phone] Encounter Details Date Type Department Care Team (Latest Contact Info) Description 04/08/2023 Travel Social History Tobacco Use Types Packs/Day [...] Scheduled View Only Radiation Oncology at [address] [phone] 04/25/2024 8:30 AM EST Scheduled View Only Radiation Oncology at [address] [address] 04/26/2024 3:00 PM EST Scheduled View Only Radiation Oncology at [address] [phone] 04/26/2024 3:30 PM EST Office Visit Radiation Oncology at [address] [address] Ofe Fonseca MD [facility] [place] [address] 04/28/2024 2:45 PM EST Scheduled View Only Radiation Oncology at [address] [address] 04/29/2024 3:00 PM EST Scheduled View Only Radiation Oncology at [address] [address] 05/02/2024 3:45 PM EST Scheduled View Only Radiation Oncology at [address] [address] 05/03/2024 1:45 PM EST Scheduled View Only Radiation Oncology at [address] [address] 05/03/2024 2:15 PM EST Office Visit Radiation Oncology at [address] [address] Ofe Fonseca MD [facility] [place] [address] 05/05/2024 8:15 AM EST Scheduled View Only Radiation Oncology at [address] [phone] 05/06/2024 12:30 PM EST Scheduled View Only Radiation Oncology at [address] [address] 05/09/2024 3:00 PM EST Scheduled View Only Radiation Oncology at [address] [address] 05/10/2024 2:30 PM EST Scheduled View Only Radiation Oncology at [address] [address] 05/10/2024 3:15 PM EST Office Visit Radiation Oncology at [address] [phone] Ofe Fonseca MD [facility] [place] [address] 05/11/2024 2:45 PM EST Scheduled View Only Radiation Oncology at [address] [phone] 06/03/2024 3:30 PM EST Appointment [place] [phone] Mira Hutchison, [facility] [address] 06/23/2024 4:00 PM EST Appointment Mammography/[place] [phone] Miryam Feliciano MD [facility] [place] [address] 07/12/2024 8:00 AM EDT Laboratory Appointment Lab [address] [place] [phone] 07/12/2024 9:30 AM EDT Office Visit Nephrology [place] [phone] Sharmin Jean-Baptiste [facility] [address] 07/13/2024 10:30 AM EDT Laboratory Appointment Lab at [facility] [place] Hematology Oncology [address] [place] [phone] 07/13/2024 11:30 AM EDT Office Visit Hematology [place] [address] Salena Alvares APRN [facility] [place] [address] 07/13/2024 12:45 PM EDT Appointment Hematology [place] [phone] documented as of this encounter Visit Diagnoses Not on filedocumented in this encounter Care Teams Sheet Metal Roofer Relationship Specialty Start Date End [place] [address] PCP - General General Internal Medicine 08/04/22 documented as of this encounter
--- OUTSIDE RECORDS SUMMARY | 2024-04-22 00:24 | XMS_ITS | Encounter Summary ---
Author Organization [facility] [place] [address] Care Team Providers Care Dinkey Mechanic Name Role Phone Haylie Steward MD Primary Care Provider [phone] Encounter Details Date Type Department Care Team (Late st Contact Info) Description 04/20/2023 Telephone [place] [phone] Mira Reyes Social History Tobacco Use Types Packs/Day Years Used Date Smoking Tobacco: Never Smokeless Tobacco: Never Alcohol Use Standard Drinks/Week Comments Not Currently 0 (1 standard drink = 0.6 oz pur e alcohol) [facility] Inpatient Questions Answer Date Recorded Does Anyone [...] Scheduled View Only Radiation Oncology at [address] [address] 04/25/2024 8:30 AM EST Scheduled View Only Radiation Oncology at [address] [address] 04/26/2024 3:00 PM EST Scheduled View Only Radiation Oncology at [address] [address] 04/26/2024 3:30 PM EST Office Visit Radiation Oncology at [address] [address] Ofe Fonseca MD [facility] [place] [address] 04/28/2024 2:45 PM EST Scheduled View Only Radiation Oncology at [address] [address] 04/29/2024 3:00 PM EST Scheduled View Only Radiation Oncology at [address] [address] 05/02/2024 3:45 PM EST Scheduled View Only Radiation Oncology at [address] [address] 05/03/2024 1:45 PM EST Scheduled View Only Radiation Oncology at [address] [address] 05/03/2024 2:15 PM EST Office Visit Radiation Oncology at [address] [phone] Ofe Fonseca MD [facility] [place] [address] 05/05/2024 8:15 AM EST Scheduled View Only Radiation Oncology at [address] [address] 05/06/2024 12:30 PM EST Scheduled View Only Radiation Oncology at [address] [address] 05/09/2024 3:00 PM EST Scheduled View Only Radiation Oncology at [address] [address] 05/10/2024 2:30 PM EST Scheduled View Only Radiation Oncology at [address] [address] 05/10/2024 3:15 PM EST Office Visit Radiation Oncology at [address] [phone] Ofe Fonseca MD [facility] [place] [address] 05/11/2024 2:45 PM EST Scheduled View Only Radiation Oncology at [address] [address] 06/03/2024 3:30 PM EST Appointment Ultrasound at [place] [phone] Mira Hutchison [facility] [place] [address] 06/23/2024 4:00 PM EST Appointment Mammography/DXA at [place] [phone] Miryam Feliciano MD [facility] [place] [address] 07/12/2024 8:00 AM EDT Laboratory Appointment Lab [address] [phone] 07/12/2024 9:30 AM EDT Office Visit [place] [phone] Sharmin Jean-Baptiste [facility] [address] 07/13/2024 10:30 AM EDT Laboratory Appointment Lab at [facility] [place] On[place] [address] [place] [phone] 07/13/2024 11:30 AM EDT Office Visit Hematology [place] [address] Salena Alvares APRN [facility] DR MEDICAL ONCOLOGY [place] [phone] 07/13/2024 12:45 PM EDT Appointment Hematology [place] [address] documented as of this encounter Visit Diagnoses Not on filedocumented in this encounter Care Teams Dinkey Mechanic Relationship Specialty Start Date End [place] [address] PCP - General General Internal Medicine 08/04/22 documented as of this encounter
--- OUTSIDE RECORDS SUMMARY | 2024-04-22 00:24 | XMS_ITS | Encounter Summary ---
Author Organization [facility] [place] [address] Care Team Providers Care Clock Smith Name Role Phone Haylie Steward MD Primary Care Provider [phone] Encounter Details Date Type Department Care Team (Latest Contact Info) Description 03/18/2023 Travel Social History Tobacco Use Types Packs/Day [...] Scheduled View Only Radiation Oncology at [address] [phone] 04/25/2024 8:30 AM EST Scheduled View Only Radiation Oncology at [address] [phone] 04/26/2024 3:00 PM EST Scheduled View Only Radiation Oncology at [address] [address] 04/26/2024 3:30 PM EST Office Visit Radiation Oncology at [address] [phone] Ofe Fonseca MD [facility] [place] [address] 04/28/2024 2:45 PM EST Scheduled View Only Radiation Oncology at [address] [address] 04/29/2024 3:00 PM EST Scheduled View Only Radiation Oncology at [address] [address] 05/02/2024 3:45 PM EST Scheduled View Only Radiation Oncology at [address] [address] 05/03/2024 1:45 PM EST Scheduled View Only Radiation Oncology at [address] [address] 05/03/2024 2:15 PM EST Office Visit Radiation Oncology at [address] [address] Ofe Fonseca MD [facility] [place] [address] 05/05/2024 8:15 AM EST Scheduled View Only Radiation Oncology at [address] [address] 05/06/2024 12:30 PM EST Scheduled View Only Radiation Oncology at [address] [address] 05/09/2024 3:00 PM EST Scheduled View Only Radiation Oncology at [address] [address] 05/10/2024 2:30 PM EST Scheduled View Only Radiation Oncology at [address] [address] 05/10/2024 3:15 PM EST Office Visit Radiation Oncology at [address] [phone] Ofe Fonseca MD [facility] DR [place] [address] 05/11/2024 2:45 PM EST Scheduled View Only Radiation Oncology at [address] [phone] 06/03/2024 3:30 PM EST [place] [phone] Mira Hutchison, [facility] [place] [address] 06/23/2024 4:00 PM EST Appointment Mammography/[place] [phone] Miryam Feliciano MD [facility] [place] [address] 07/12/2024 8:00 AM EDT Laboratory Appointment Lab [address] [place] [phone] 07/12/2024 9:30 AM EDT Office Visit [place] [phone] Sharmin Jean-Baptiste [facility] [place] [address] 07/13/2024 10:30 AM EDT Laboratory Appointment Lab at [facility] [place]ology Oncology [address] [place] [phone] 07/13/2024 11:30 AM EDT Office Visit Hematology [place] [address] Salena Alvares APRN [facility] DR [place] [address] 07/13/2024 12:45 PM EDT Appointment Hematology [place] [phone] documented as of this encounter Visit Diagnoses Not on filedocumented in this encounter Care Teams Clock Smith Relationship Specialty Start Date [place] [address] PCP - General General Internal Medicine 08/04/22 documented as of this encounter
--- OUTSIDE RECORDS SUMMARY | 2024-04-22 00:24 | XMS_ITS | Encounter Summary ---
Author Organization [facility] [place] [address] Care Team Providers Care Middle School Tutor Name Role Phone Haylie Steward MD Primary Care Provider [phone] Reason for Visit * Reason Comments Follow-up Encounter Details Date Type Department Care Team (Late st Contact Info) Description 04/03/2023 1:40 PM EST Office Visit Obstetrics [place] [address] Vini Martini MD [facility]ST[facility] [place] [address] Abnormal uterine bleeding (AUB); Perimenopausal; Stage 3b chronic kidney disease (CKD); Obsessive-compulsive disorder, unspecified type Social History Tobacco Use Types Packs/Day Years Used Date Smoking Tobacco: Never Smokeless Tobacco: Never Alcohol Use Standard Drinks/Week Comments Not Currently 0 (1 standard drink = 0.6 oz pur e alcohol) [facility] Inpatient Questions Answer Date Recorded [...] Sign Reading Time Taken Comments Blood Pressure 140/78 04/03/2023 1:42 PM EST Pulse 76 04/03/2023 1:42 PM EST Temperature 36.4 ??C (97.5 ??F) 04/03/2023 1:42 PM ES T Respiratory Rate 16 04/03/2023 1:42 PM EST Oxygen Saturation 100% 04/03/2023 1:42 PM EST Inhaled Oxygen Concentration - - Weight 58.7 kg (129 lb 8 oz) 04/03/2023 1:42 PM EST Height - - Body Mass Index 22.94 02/20/2023 4:51 PM EDT documented in this encounter Progress Notes * Vini Martini MD - 04/03/2023 1:40 PM EST Images from the original note were not included. Gynecology Follow Up Visit CC: AUB, desires surgical management Subjective: NATALIYA MORFIN is a 48 y.o. G0. female with PMH significant for Stage 3 CKD (last Cr 1.), IBS, anemia, trauma history, hypothyroidism, who presents to discuss surgical management of AUB. Since October, she's had period more often - 2-3x/mo, sometimes lasting 2 days, sometimes lasting 10 days. Use to be monthly for a couple of days. Workup thus far includes: -- TVUS demonstrating multiple fibroids, largest 8cm in diameter with possible intracavitary involvement. Normal 7mm endometrium thickness. Ovaries grossly within normal limits -- TSH 1.68 -- 01/2023 Hgb 14.0 At her last visit, she was counseled on hormonal medical management which she declined. In February,she experienced one day of light bleeding; only 2 days of light bleeding in March. 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 Patient unsure when last pap was, believes >5 years ago. Objective: Patient Vitals for the past 24 hrs: Temp Pulse Resp BP SpO2 04/03/23 1342 36.4 ??C (97.5 ??F) 76 16 140/78 100 % Physical Examination: General appearance - [...] Dawn Sanchez MD at 03/18/2023 5:36 PM Assessment/Plan: Nataliya Morfin is 48 y.o. G0 with history significant for OCD, bipolar disorder (follows with psychiatry), CKD Stage 3 (last Cr 1.16) who presents to review TVUS ordered in the settingof AUB, initially earlier this year with menses q2-3 weeks apart, now only 1-2 days of light vaginal spotting over the last 2 months. TVUS with findings of fibroid uterus, patient reports being told this previously. She reports no significant abdominal pain or cramping with or without menses; wouldalso expect fibroids to cause heavier and more irregular bleeding - fibroids appear asymptomatic atthis time. Given patient age, suspect menstrual changes to be consistent with perimenopausal changewould be reasonable to consider endometrial evaluation to r/o hyperplasia vs. malignancy. Patient is very nervous about pelvic exams in general, including need for speculum placement - reports history of uncomfortable gynecological exams in the past and preference for female providers. Toalleviate her anxiety regarding exams, I showed her sample speculums, pipelle used for biopsy, brush used for pap smear collection, etc. We thoroughly reviewed options outlined below: 1) endometrial biopsy in office - can offer PO medications, including ibuprofen and Ativan. Declines attempt today 2) hysteroscopy, D&C in the OR - would involve risks of anesthesia, however will avoid discomfort with exams and may allow more thorough endometrial evaluation 3) expectant management - which is reasonable given minimal bleeding x2 months. At minimum, recommend pap smear given no recent screening. All 40 minutes of today's appointment was spent counseling the patient on the above options. She isnot sure how to proceed and plans to reach out to our department with her decision. She would like to make a phone call right now to help guide her decision. Pt was discussed with Dr. Denny, attending portrait studio photographer, with whom the plan was formulated. Vini Martini MD, PGY3 Obstetrics and Gynecology 04/04/2023 * Maya Denny MD - 04/03/2023 1:40 PM EST The case was discussed in person at the time of the visit or immediately after the visit. The assessment and plan were formulated in discussion with me and I agree with them as documented. I have reviewed the history, physical exam, assessment and plan with the resident. Maya Denny MD documented in this encounter Plan of Treatment Upcoming Encounters Date Type Department Care Team (Latest Contact Info) Description 04/22/2024 9:45 AM EST Scheduled View Only Radiation Oncology at [address] [phone] 04/25/2024 8:30 AM EST Scheduled View Only Radiation Oncology at [address] [phone] 04/26/2024 3:00 PM EST Scheduled View Only Radiation Oncology at [address] [phone] 04/26/2024 3:30 PM EST Office Visit Radiation Oncology at [address] [phone] Ofe Fonseca MD [facility] [place] [address] 04/28/2024 2:45 PM EST Scheduled View Only Radiation Oncology at [address] [address] 04/29/2024 3:00 PM EST Scheduled View Only Radiation Oncology at [address] [phone] 05/02/2024 3:45 PM EST Scheduled View Only Radiation Oncology at [address] [address] 05/03/2024 1:45 PM EST Scheduled View Only Radiation Oncology at [address] [phone] 05/03/2024 2:15 PM EST Office Visit Radiation Oncology at [address] [phone] Ofe Fonseca MD [facility] [place] [address] 05/05/2024 8:15 AM EST Scheduled View Only Radiation Oncology at [address] [phone] 05/06/2024 12:30 PM EST Scheduled View Only Radiation Oncology at [address] [address] 05/09/2024 3:00 PM EST Scheduled View Only Radiation Oncology at [address] [address] 05/10/2024 2:30 PM EST Scheduled View Only Radiation Oncology at [address] [address] 05/10/2024 3:15 PM EST Office Visit Radiation Oncology at [address] [phone] Ofe Fonseca MD [facility] [place] [address] 05/11/2024 2:45 PM EST Scheduled View Only Radiation Oncology at [address] [address] 06/03/2024 3:30 PM EST Appointment Ultrasound at [place] [phone] Mira Hutchison APRN [facility] [place] [address] 06/23/2024 4:00 PM EST Appointment Mammography/DXA at [place] [phone] Miryam Feliciano MD [facility] [place] [address] 07/12/2024 8:00 AM EDT Laboratory Appointment Lab [place] [address] 07/12/2024 9:30 AM EDT Office Visit Neph[place] [phone] Sharmin Jean-Baptiste, [facility] [place] [address] 07/13/2024 10:30 AM EDT Laboratory Appointment Lab at [facility] [place] Hematology Oncology [address] [place] [phone] 07/13/2024 11:30 AM EDT Office Visit Hematology [place] [phone] Salena Alvares, [facility] [place] [address] 07/13/2024 12:45 PM EDT Appointment Hematology and Oncology at [place] [phone] documented as of this encounter Visit Diagnoses Diagnosis Abnormal uterine bleeding (AUB) Perimenopausal Symptomatic menopausal or female climacteric states Stage 3b chronic kidney disease (CKD) Obsessive-compulsive disorder, unspecified type documented in this encounter Care Teams Middle School Tutor Relationship Specialty Start Date End [place] [address] PCP - General General Internal Medicine 08/04/22 documented as of this encounter
--- OUTSIDE RECORDS SUMMARY | 2024-04-22 00:24 | XMS_ITS | Encounter Summary ---
[place] [address] Care Team Providers Care Ticker Maintainer Name Role Phone Haylie Steward MD Primary Care Provider [phone] Encounter Details Date Type Department Care Team (Latest Contact Info) Description 04/23/2023 9:00 AM EST Laboratory Appointment Lab [address] [place] [phone] Stage 3b chronic kidney disease (CKD) Social History Tobacco [...] EST Scheduled View Only Radiation Oncology at [address] [phone] 04/25/2024 8:30 AM EST Scheduled View Only Radiation Oncology at [address] [phone] 04/26/2024 3:00 PM EST Scheduled View Only Radiation Oncology at [address] [phone] 04/26/2024 3:30 PM EST Office Visit Radiation Oncology at [address] [phone] Ofe Fonseca MD [facility] [place] [address] 04/28/2024 2:45 PM EST Scheduled View Only Radiation Oncology at [address] [phone] 04/29/2024 3:00 PM EST Scheduled View Only Radiation Oncology at [address] [phone] 05/02/2024 3:45 PM EST Scheduled View Only Radiation Oncology at [address] [phone] 05/03/2024 1:45 PM EST Scheduled View Only Radiation Oncology at [address] [phone] 05/03/2024 2:15 PM EST Office Visit Radiation Oncology at [address] [phone] Ofe Fonseca MD [facility] [place] [address] 05/05/2024 8:15 AM EST Scheduled View Only Radiation Oncology at [address] [phone] 05/06/2024 12:30 PM EST Scheduled View Only Radiation Oncology at [address] [phone] 05/09/2024 3:00 PM EST Scheduled View Only Radiation Oncology at [address] [phone] 05/10/2024 2:30 PM EST Scheduled View Only Radiation Oncology at [address] [phone] 05/10/2024 3:15 PM EST Office Visit Radiation Oncology at [address] [phone] Ofe Fonseca MD [facility] [place] [address] 05/11/2024 2:45 PM EST Scheduled View Only Radiation Oncology at [address] [phone] 06/03/2024 3:30 PM EST Appointment Ultrasound at [place] [phone] Mira Hucthison [facility] [place] [address] 06/23/2024 4:00 PM EST Appointment Mammography/[place] [phone] Miryam Feliciano MD [facility] [place] [place] [address] 07/12/2024 8:00 AM EDT Laboratory Appointment Lab [address] [place] [phone] 07/12/2024 9:30 AM EDT Office Visit Nephrology Hypertension at [place] [phone] Sharmin Jean-Baptiste [facility] [place] [address] 07/13/2024 10:30 AM EDT Laboratory Appointment [place] [facility] [place] [address] [place] [phone] 07/13/2024 11:30 AM EDT Office Visit Hematology [place] [phone] Salena Alvares APRN [facility] [place] [address] 07/13/2024 12:45 PM EDT Appointment Hematology [place] [phone] documented as of this encounter Procedures Procedure Name Priority Date/Time Associated Diagnosis Comments HC URINALYSIS ROUTINE Routine 04/23/2023 9:26 AM EST Stage 3b chronic kidney disease (CKD) PROTEIN/CREATININE RATIO, URINE Routine 04/23/2023 9:26 AM EST Stage 3b chronic kidney disease (CKD) PTH Routine 04/23/2023 8:52 AM EST Stage 3b chronic kidney disease (CKD) HEMOGRAM Routine 04/23/2023 8:52 AM EST Stage 3b chronic kidney disease (CKD) DIFFERENTIAL, AUTOMATED Routine 04/23/2023 8:52 AM EST Stage 3b chronic kidney disease (CKD) IRON AND TIBC Routine 04/23/2023 8:52 AM EST Stage 3b chronic kidney disease (CKD) VITAMIN D, 25-HYDROXY Routine 04/23/2023 8:52 AM EST Stage 3b chronic kidney disease (CKD) CBC (WITH DIFF) Routine 04/23/2023 8:52 AM EST Stage 3b chronic kidney disease (CKD) PHOSPHORUS Routine 04/23/2023 8:52 AM EST Stage 3b chronic kidney disease (CKD) FERRITIN Routine 04/23/2023 8:52 AM EST Stage 3b chronic kidney disease (CKD) ALBUMIN LEVEL Routine 04/23/2023 8:52 AM EST Stage 3b chronic kidney disease (CKD) BASIC METABOLIC PANEL Routine 04/23/2023 8:52 AM EST Stage 3b chronic kidney disease (CKD) documented in this encounter Results * (ABNORMAL) _Urinalysis with microscopic (04/23/2023 9:26 AM EST) Glucose, Urine Dipstick Negative Negative mg/dL [facility] Protein, Urine Dipstick Negative Negative mg/dL [facility] Bilirubin, Urine Dipstick Negative Negative mg/dL [facility] Comment: Clinical correlation required for positive Urine Bilirubin results as false positive may occur with some drugs and drug related products. If a false positive is suspected a serum total bilirubin should be considered if clinically indicated. Urobilinogen, Urine Dipstick Normal Normal mg/dL [facility] pH, Urn (dipstick) 6.5 5.0 - 8.0 [facility] Blood, Urine Dipstick Trace(A) Negative mg/dL [facility] Ketone, Urine Dipstick Negative Negative mg/dL [facility] Nitrite, Urine Dipstick Negative Negative [facility] Leukocytes, Urine Dipstick Negative Negative mcL [facility] Appearance, Urine Dipstick Clear Clear [facility] Specific [place] Urine Automated 1.005 1.005 - 1.030 [facility] Color, Urine Dipstick Yellow Yellow [facility] RBC, Urine 0 0 - 4 /HPF [facility] WBC, Urine 0 0 - 5 /HPF [facility] Squamous Epithelial Cells Raw Data, Urine 1 <=4 /HPF [facility] Urine 04/23/2023 9:26 AM EST 04/23/2023 9:32 AM EST Narrative Resulting Agency Comment Spec In Lab Sharmin Jean-Baptiste APRN URINE ORDERABLES [facility] [place] [address] * Protein/Creatinine Ratio, urine (04/23/2023 9:26 AM EST) Creatinine, Urine 12 mg/dL [facility] Protein, Urine <6 0 - 12 mg/dL [facility] Protein / Creatinine Ratio, Urine <0.5 ratio [facility] Urine 04/23/2023 9:26 AM EST 04/23/2023 9:32 AM EST Narrative Resulting Agency Comment Spec In Lab Sharmin L Estiven [employer] URINE ORDERABLES [facility] [place] [address] * Differential, Automated (04/23/2023 8:52 AM EST) Neutrophil % 58.7 % [facility] Neutrophil Absolute 3.06 1.70 - 6.10 x10(3)/[facility] Lymph % 28.7 % [facility] Lymphocytes Abs 1.5 0.9 - 3.2 x10(3)/[facility] Monocyte % 8.1 % [facility] Monocyte Abs 0.4 0.3 - 0.9 x10(3)/[facility] Eos % 3.7 % [facility] Eosinophils Abs 0.2 0.0 - 0.4 x10(3)/[facility] Basophil % 0.6 % [facility] Baso Absolute 0.0 0.0 - 0.1 x10(3)/[facility] LABORATORY Immature Gran % 0.20 % [facility] Comment: Immature granulocytes(IG's)percentage and absolute count will include metamyelocytes, myelocytes, and promyelocytes. Blood smears from CBCs yielding IG's will be scanned manually for concordance. If this scan disagrees with the automated IG or if promyelocytes are noted, a manual differential will be performed. Immature Gran Absolute 0.01 0.00 - 0.04 x10(3)/[facility]ATORY Blood 04/23/2023 8:52 AM EST 04/23/2023 9:00 AM EST Narrative Resulting Agency Comment Spec In Lab Sharmin L Estiven [employer] HEMATOLOGY ORDERA BLES Performing Organization Address City/[facility]/ZIP Co de Phone Number [facility] [place] [address] * (ABNORMAL) Hemogram (04/23/2023 8:52 AM EST) White Blood Cell 5.2 4.0 - 9.5 x10(3)/mc L [facility] Red Blood Cell 4.63 4.00 - 5.21 x10(6)/mc L [facility] Hemoglobin 13.8 11.7 - 15.5 g/dL [facility] Hematocrit 43.8 35.7 - 45.8 % [facility] Mean Cell Volume 94.6(H) 82.6 - 94.4 fL [facility] Mean Cell Hemoglobin 29.8 27.1 - 32.0 pg [facility] Mean Cell Hemoglobin Concentration 31.5(L) 31.7 - 35.0 g/dL [facility] Platelet 249 145 - 357 x10(3)/mc L [facility] RDW Standard Deviation 48.6(H) 37.0 - 46.0 fL [facility] RDW coefficient of variation 13.8 11.5 - 14.1 % [facility] Mean Platelet Volume 9.2 7.6 - 12.9 fL [facility] NRBC% auto 0.0 % [facility] NRBC Absolute 0.000 0.000 - 0.000 x10(3)/mc L [facility] Blood 04/23/2023 8:52 AM EST 04/23/2023 9:00 AM EST Narrative Resulting Agency Comment Spec In Lab Sharmin L Estiven [employer] HEMATOLOGY ORDERA BLES Performing Organization Address City/[facility]/ZIP Co de Phone Number [facility] [place] [address] * Albumin Level (04/23/2023 8:52 AM EST) Albumin 4.3 3.2 - 5.2 g/dL [facility] Blood 04/23/2023 8:52 AM EST 04/23/2023 9:00 AM EST Narrative Resulting Agency Comment Spec In Lab Sharmin Jean-Baptiste [employer] CHEMISTRY ORDERAB LES [facility] [place] [address] * (ABNORMAL) Basic Metabolic Panel (non-fasting) (04/23/2023 8:52 AM EST) Glucose 77 65 - 199 mg/dL [facility] Comment:Diabetes: >=200 mg/d L plus symptoms Blood Urea Nitrogen 26(H) 8 - 18 mg/dL [facility] Creatinine 1.17 0.70 - 1.20 mg/dL [facility] Sodium 142 135 - 145 mmol/L [facility] Potassium 4.5 3.5 - 5.0 mmol/L [facility] Comment: Please note: ??Patients with WBC >100,000 may have falsely elevated Potassium levels. ??For accurate Potassium quantification in these patients send serum separator tube (gold top) for subsequent determinations. ??Contact the Clinical Chemistry Laboratory if there are any questions. Chloride 108(H) 98 - 107 mmol/L [facility] Carbon Dioxide 26 22 - 31 mmol/L [facility] Anion Gap 8 5 - 15 mmol/L [facility] Calcium 10.1 8.5 - 10.5 mg/dL [facility] Est Glomerular Filtration Rate 57(L) >=60 mL/min/1. 73 m?? [facility] Comment: This patient's estimated GFR [...] Comment Spec In Lab Sharmin L Estiven [employer] CHEMISTRY ORDERAB LES Performing Organization Address City/[facility]/ZIP Co de Phone Number [facility] [place] [address] * Ferritin (04/23/2023 8:52 AM EST) Ferritin 18 6 - 175 ng/mL [facility] Comment: Please note that as of 04/08/2023, the reference intervals for Ferritin have been updated. Blood 04/23/2023 8:52 AM EST 04/23/2023 9:00 AM EST Narrative Resulting Agency Comment Spec In Lab Sharmin L Estiven [employer] CHEMISTRY ORDERAB LES Performing Organization Address [facility] Co de Phone Number [facility] [address] * (ABNORMAL) Iron and TIBC (04/23/2023 8:52 AM EST) Iron 71 30 - 150 mcg/dL [facility] TIBC 397 250 - 450 mcg/dL [facility] Iron Saturation 18(L) 20 - 50 % [facility] Blood 04/23/2023 8:52 AM EST 04/23/2023 9:00 AM EST Narrative Resulting Agency Comment Spec In Lab Sharmin L Estiven [employer] CHEMISTRY ORDERAB LES Performing Organization Address [facility] Co de Phone Number [facility] [address] * Phosphorus (04/23/2023 8:52 AM EST) Phosphorus 2.9 2.5 - 4.5 mg/dL [facility] Blood 04/23/2023 8:52 AM EST 04/23/2023 9:00 AM EST Narrative Resulting Agency Comment Spec In Lab Sharmin L Estiven [employer] CHEMISTRY ORDERAB LES Performing Organization Address City/[facility] Co de Phone Number [facility] [address] * (ABNORMAL) PTH (04/23/2023 8:52 AM EST) Parathyroid Hormone 94(H) 15 - 65 pg/mL [facility] Blood 04/23/2023 8:52 AM EST 04/23/2023 9:00 AM EST Narrative Resulting Agency Comment Spec In Lab Sharmin L Estiven [employer] CHEMISTRY ORDERAB LES [facility] [address] * Vitamin D, 25-Hydroxy (04/23/2023 8:52 AM EST) Vitamin D Total 25 OH 31 21 - 100 ng/mL [facility] Vit D Interp Sufficient [facility] Blood 04/23/2023 8:52 AM EST 04/23/2023 9:00 AM EST Narrative Resulting Agency Comment Spec In Lab Sharmin L Estiven [employer] CHEMISTRY ORDERAB LES Performing Organization Address City/[facility]/ZIP Co de Phone Number [facility] [place] [address] documented in this encounter Visit Diagnoses Diagnosis Stage 3b chronic kidney disease (CKD) documented in this encounter Care Teams Ticker Maintainer Relationship Specialty Start Date End Date Haylie Steward MD [facility] [place] [address] PCP - General General Internal Medicine 08/04/22 documented as of this encounter
--- OUTSIDE RECORDS SUMMARY | 2024-04-22 00:24 | XMS_ITS | Encounter Summary ---
[place] [address] Care Team Providers Care Wood Heel Flap Trimmer Name Role Phone Haylie Steward MD Primary Care Provider [phone] Reason for Visit * Consultation (Routine) - Closed Specialty Diagnoses / Procedures Referred By Contac t Referred To Contact Endocrinology Diagnoses Disorder of parathyroid gland, unspecified [place] [address] [place] [address] [facility] [address] [place] [address] Referral ID Status Reason Start Date Expiration Date Visits Re quested Visits Authorized [id number] Closed 02/05/2023 02/05/2024 1 1 Encounter Details Date Type Department Care Team (Late st Contact Info) Description 02/12/2023 9:00 AM EDT Office [place] [phone] Victoriano Heredia MD [facility] [place] [address] Primary hyperparathyroidism; Hypercalcemia Social History Tobacco Use Types Packs/Day Years Used Date Smoking Tobacco: Never Smokeless Tobacco: Never Alcohol Use Standard Drinks/Week Comments Not Currently 0 (1 standard drink = 0.6 oz pur e alcohol) [facility] Inpatient Questions Answer Date Recorded Does Anyone [...] Sign Reading Time Taken Comments Blood Pressure 137/76 02/12/2023 8:43 AM EDT Pulse 66 02/12/2023 8:43 AM EDT Temperature 36.6 ??C (97.9 ??F) 02/12/2023 8:43 AM ED T Respiratory Rate - - Oxygen Saturation 99% 02/12/2023 8:43 AM EDT Inhaled Oxygen Concentration - - Weight 58.3 kg (128 lb 9.6 oz) 02/12/2023 8:43 A M EDT Height 160 cm (5' 3) 02/12/2023 8:43 AM EDT Body Mass Index 22.78 02/12/2023 8:43 AM EDT documented in this encounter Progress Notes * Victoriano Heredia MD - 02/12/2023 9:00 AM EDT Images from the original note were not included. [facility] New Patient Chief complaint: hyperparathyroidism History: Edyta Morfin is a 47 y.o. female with significant PMH of bipolar disorder diagnosed in 2003, CKD3, OCD, here for evaluation of hyperparathyroidism. She was on [place] starting from 2003 until September 2022. Diagnosed: in 2022 DEXA: not performed Still having menses History of Hyperparathyroidism: yes History of nephrolithiasis: no History of renal disease: yes History of vitamin D insufficiency/deficiency: no History of hypercalcemia: yes History of falls/fractures: no History of osteoporosis: no Family history of nephrolithiasis: possibly in father Family history of osteoporosis: no Family history of fractures: no History of thyroid disease: yes, on LT4 75 mcg daily - takes it in the morning, eats at variable times afterwards - 30 minutes to 1 hour later Calcium supplement: no Vitamin D supplement: no Dietary calcium intake: has cheese almost daily; has at least 2 glasses of milk daily Dental: last visit summer - does not require dental work to be done She tested positive for COVID at the end of January 2023. Still suffering from fatigue, sore throat. No SOB. Lost about 30 lbs in one year, has since gained back a few lbs. She does have some polydipsia - drinks at least 8 glasses of water daily, with resulting polyuria. Was having constipation, which may have been due to iron supplements. Past Medical History: Past Medical History: Diagnosis Date Bipolar 1 disorder Chronic kidney disease (CKD) stage G3b/A1, moderately decreased glomerular filtration rate (GFR) between 30-44 mL/min/1.73 square meter and albuminuria creatinine ratio less than 30 mg/g OCD (obsessive compulsive disorder) Past Surgical History: Past Surgical History: Procedure Laterality Date EYE SURGERY tear ducts as a child TOE SURGERY Medications: Current Outpatient Medications: pilocarpine (Salagen) 5 mg tablet, Take 1 tablet by mouth 3 times daily., Disp: 90 tablet, Rfl: 2 buPROPion XL (Wellbutrin XL) 150 mg XL 24 hr tablet, Take 1 tablet by mouth every morning., Disp: 90 tablet, Rfl: 0 divalproex ER (Depakote ER) 250 mg ER 24 hr tablet, 2 tabs BID., Disp: 120 tablet, Rfl: 02 levothyroxine (Synthroid) 75 mcg tablet, Take 1 tablet by mouth every morning., Disp: 90 tablet, Rfl: 0 clonazePAM (KlonoPIN) 0.5 mg disintegrating tablet, Take 0.5 mg by mouth daily as needed., Disp: , Rfl: acetaminophen (Tylenol) 500 mg tablet, Take 1,000 mg by mouth every 6 hours as needed for Pain., Disp: , Rfl: Alosetron (Lotronex) 0.5 mg tablet, Take 0.5 mg by mouth 2 times daily., Disp: , Rfl: ferrous sulfate EC (FeroSul) 325 mg (65 mg iron) DR tablet, Take 1 tablet by mouth daily., Disp: 30tablet, Rfl: 3 Allergies: Nsaids (non-steroidal anti-inflammatory drug), Tolmetin, and Ibuprofen Family history: Family History Problem Relation Age of Onset Arrhythmia Mother Prostate Cancer Father Social history: Lives with parents No cigarette use No alcohol use Review of systems: As noted in HPI, all other systems reviewed and negative Patient Vitals for the past 24 hrs: Temp Pulse BP SpO2 02/12/23 0843 36.6 ??C (97.9 ??F) 66 137/76 99 % Physical Exam: General: No acute distress, well appearing Eyes: no proptosis, no erythema Neck: no visible scars or goiter Resp: breathing comfortably; chest expansion bilaterally Extremities: no clubbing; no cyanosis Neuro: + tremor Psych: AAO x 3; normal affect; memory intact Skin: warm to touch; no jaundice Labs/Imaging: Latest Reference Range & Units 01/06/23 07:47 WBC 4.0 - 9.5 x10(3)/mcL 4.7 RBC 4.00 - 5.21 x10(6)/mcL 4.85 Hemoglobin 11.7 - 15.5 g/dL 14.0 Hematocrit 35.7 - 45.8 % 44.6 MCV 82.6 - 94.4 fL 92.0 MCH 27.1 - 32.0 pg 28.9 MCHC 31.7 - 35.0 g/dL 31.4 (L) RDWSD 37.0 - 46.0 fL 51.5 (H) RDWCV 11.5 - 14.1 % 15.3 (H) Platelets 145 - 357 x10(3)/mcL 273 MPV 7.6 - 12.9 fL 9.2 nRBC % Auto % 0.0 nRBC Abs Auto 0.000 - 0.000 x10(3)/mcL 0.000 Neutr Abs (ANC) 1.70 - 6.10 x10(3)/mcL 2.75 (L): Data is abnormally low (H): Data is abnormally high Latest Reference Range & Units 09/07/22 01:55 09/07/22 12:34 09/08/22 01:55 09/09/22 04:46 10/01/22 15:06 01/06/23 07:47 02/12/23 07:41 Sodium 135 - 145 mmol/L 145 145 145 145 148 (H) 141 142 Potassium 3.5 - 5.0 mmol/L 4.3 4.3 4.5 4.5 4.5 4.6 4.1 Chloride 98 - 107 mmol/L 120 (H) 118 (H) 117 (H) 115 (H) 113 (H) 108 (H) 113 (H) CO2 22 - 31 mmol/L 17 (L) 20 (L) 18 (L) 22 19 (L) 25 18 (L) Anion Gap 5 - 15 mmol/L 8 7 10 8 16 (H) 8 11 BUN 8 - 18 mg/dL 14 11 11 14 34 (H) 18 31 (H) Creatinine 0.70 - 1.20 mg/dL 1.74 (H) 1.61 (H) 1.57 (H) 1.71 (H) 1.14 1.28 (H) 1.16 Estimated GFR >=60 mL/min/1.73 m?? 36 (L) 39 (L) 40 (L) 37 (L) 59 (L) 52 (L) 58 (L) Calcium 8.5 - 10.5 mg/dL 9.5 10.0 10.2 10.3 10.5 10.2 9.9 Magnesium 0.69 - 1.07 mmol/L 0.99 1.17 (H) 0.99 0.95 Phosphorus 2.5 - 4.5 mg/dL 2.5 2.6 3.1 3.6 4.0 2.5 (H): Data is abnormally high (L): Data is abnormally low Latest Reference Range & Units 01/06/23 07:47 25-OH Vit D Total 21 - 100 ng/mL 36 25-OH Vit D Interp Sufficient Latest Reference Range & Units 02/12/23 07:41 TSH 0.27 - 4.20 mcIU/mL 1.68 Latest Reference Range & Units 08/04/22 13:58 09/09/22 04:46 10/01/22 15:06 01/06/23 07:47 PTH 15 - 65 pg/mL 187 (H) 143 (H) 125 (H) 109 (H) (H): Data is abnormally high Dawn Sanchez MD [phone] 205410/01/2022 Narrative & Impression Renal (Signed Final 10/01/2022 07:53 pm) PATIENT INFO: ID #: [id number] : [birth year] (47 yrs)(F) Name: EDYTA MORFIN Visit Date: 10/01/2022 02:08 pm PERFORMED BY: Attending: Dawn Sanchez MD Resident: Jayne NÚÑEZ, [facility] Performed By: Monster Bhatia RDMS Referred By: SHAKA EPPS Location: [place] SERVICE(S) PROVIDED: URETRO - Retroperitoneal Complete - [id number] INDICATIONS: long-standing lithium use and CKD, requested [...] at 10/01/2022 7:46 PM Assessment and Plan: 47 year old woman with mild intermittent hypercalcemia and hyperparathyroidism Hypercalcemia/hyperparathyroidism: May be caused by fci use of lithium. [place] is known to be associated with hyperparathyroidism, as it can be associated with 4 gland hyperplasia or a parathyroid adenoma/unmasking of primary hyperparathyroidism. It is also known to raise the calcium set point. Since cessation of lithium, her serum calcium level has fallen, which is reassuring. Her PTH level has also decreased, although it remains elevated. At this point, suggest that we obtain DEXA imaging that includes the radius and also obtain a 24 hour urine calcium/creatinine. Her renal function is improving. I would have her follow up in several months for reassessment and plan to repeat labs again at that time, to see if they continue to improve. 60 minutes total time spent seeing patient today, pre-charting/reviewing previous labs/office notes, placing orders and on documentation. Thank you for allowing me to participate in the care of Edyta Morfin. If you have any questions regarding the management/treatment plan as outlined above, or if I can be of further assistance, pleasedo not hesitate to contact me. Victoriano Heredia MD Associatehome care attendant Endocrinology Section [facility] documented in this encounter Plan of Treatment Upcoming Encounters Date Type Department Care Team (Latest Contact Info) Description 04/22/2024 9:45 AM EST Scheduled View Only Radiation Oncology at [address] [phone] 04/25/2024 8:30 AM EST Scheduled View Only Radiation Oncology at [address] [phone] 04/26/2024 3:00 PM EST Scheduled View Only Radiation Oncology at [address] [phone] 04/26/2024 3:30 PM EST Office Visit Radiation Oncology at [address] [phone] Ofe Fonseca MD [facility] [place] [address] 04/28/2024 2:45 PM EST Scheduled View Only Radiation Oncology at [address] [phone] 04/29/2024 3:00 PM EST Scheduled View Only Radiation Oncology at [address] [phone] 05/02/2024 3:45 PM EST Scheduled View Only Radiation Oncology at [address] [phone] 05/03/2024 1:45 PM EST Scheduled View Only Radiation Oncology at [address] [phone] 05/03/2024 2:15 PM EST Office Visit Radiation Oncology at [address] [phone] Ofe Fonseca MD [facility] [place] [address] 05/05/2024 8:15 AM EST Scheduled View Only Radiation Oncology at [address] [phone] 05/06/2024 12:30 PM EST Scheduled View Only Radiation Oncology at [address] [phone] 05/09/2024 3:00 PM EST Scheduled View Only Radiation Oncology at [address] [phone] 05/10/2024 2:30 PM EST Scheduled View Only Radiation Oncology at [address] [phone] 05/10/2024 3:15 PM EST Office Visit Radiation Oncology at [address] [phone] Ofe Fonseca MD [facility] [place] [address] 05/11/2024 2:45 PM EST Scheduled View Only Radiation Oncology at [address] [phone] 06/03/2024 3:30 PM EST Appointment Ultrasound at [place] [phone] Mira Hutchison APRN [facility] [address] 06/23/2024 4:00 PM EST Appointment Mammography/DXA at [place] [phone] Miryam Feliciano MD [facility] [place] [place] [address] 07/12/2024 8:00 AM EDT Laboratory Appointment Lab [address] [place] [phone] 07/12/2024 9:30 AM EDT Office Visit Ne[place] [address] Sharmin Jean-Baptiste, [facility] [place] [address] 07/13/2024 10:30 AM EDT Laboratory Appointment Lab at [facility] Hematology Oncology [address] [place] [phone] 07/13/2024 11:30 AM EDT Office Visit Hematology [place] [address] Salena Alvares, [facility] [place] [address] 07/13/2024 12:45 PM EDT Appointment Hematology [place] [phone] documented as of this encounter Results * DXA Central Spine, Hip, and/or Whole Body (Generic) (02/18/2023 1:23 PM EDT) Anatomical Region Laterality Modality C-spine, Hip N/A Digital Radiogra phy Impressions 02/19/2023 9:33 AM EDT Since the patient is a premenopausal woman, the ISCD recommends reporting bone mineral density diagnostic categories based on Z-scores. Measurements meet criteria for bone mineral density that is within expected range for patient age. Estimating Fracture Risk: ? The relationship between bone mineral density (BMD) and risk of fracture is well established. As BMD decreases, risk increases. Quantifying risk is difficult and is usually limited to estimation of the relative risk - a term which may have limited value when trying to discuss an individual's risk. Estimating the absolute risk for a patient requires an understanding of the incidence rate in a given population and consideration of multiple, partially independent, risk factors in addition to BMD. ? The World Health Organization (WHO) has developed a fracture risk prediction tool that calculates a ten-year risk of major osteoporotic fracture based on femoral neck bone density measurements and nine clinical risk factors for individuals who have not been treated for osteoporosis. This is available through an interactive web-based interface (http://www.shef.ac.uk/FRAX/) and can be used to estimate a given patient's absolute risk of major osteoporotic fracture or hip fracture over the next 10 years. These estimates may prove useful when discussing risk with a patient. It is important, however, to understand the tool's limitations and how a given individual's risk might differ from the tool's estimate. The tool does not take into account the dose-response associated with most risk factors. For example, the significant increase in risk associated with multiple prior fractures compared to a single prior fracture is not taken into account. Similarly, the location of a previous fracture, the amount of glucocorticoids and number of cigarettes smoked are not considered. These limitations are discussed in a Frequently Asked Questions section of the FRAX website which you are encouraged to review. ? DXA data sheets with BMD measurements and plots are available in [employer] under the imaging tab. Paper copies will be sent to providers without [employer] access. If you have received this report without the data sheet and do not have access to [employer], please contact Radiology Joinery Factory Worker at [phone] Thursday thru Thursday 8am-4pm. ? Bone Density Report ? Name: ?Edyta Morfin Age: ? 47 Sex: ? Female Ethnicity: ? White Date of : 1975 Referring Provider: VICTORIANO HEREDIA Study: Bone densitometry was performed. Model: Talk Local (S/N [id number]) SW version 13.6.1.3 Exam Date: February 18, 2023 Accession number: [id number] Bone Density: Region ? BMD ?T-score ??Z-score ? AP Spine(L1-L4) ?1.062 ?0.1 ?0.8 ? Femoral Neck (Left) ?0.735 ?? -1.0 ? -0.4 ? Total Hip (Left) ? 0.910 ?? -0.3 ?0.2 ? 1/3 Forearm (Left) ? 0.695 ?0.0 ?0.7 ? World Health Organization criteria for BMD/Z-score impression classify patients as: Within the expected range for age (Z-score greater than -2.0) Below the expected range for age ??(Z-score -2.0 or lower) Thank you for letting us participate in the care of this patient. ??If you are a health care provider and have any questions regarding this report, please contact the number below. ??For patients who have questions please contact the health disabilities caregiver that requested your imaging first. ? Narrative 02/19/2023 9:33 AM EDT EXAMINATION: DXA CENTRAL SPINE, HIP, AND/OR WHOLE BODY (GENERIC) CLINICAL HISTORY: 47 years Female hyperparathyroidism, evaluate for osteoporosis - please image forearm as well (as entered by ordering provider in the order requisition) TECHNIQUE: Scans were acquired at the lumbar spine, distal left forearm and left hip using the Hologic Horizon A system. COMPARISON: None FINDINGS: Femoral neck BMD: 0.735 g/cm2 Lowest Z-score at a diagnostic region of interest: Z-score: -0.4, PORSHA: Femoral neck, WHO diagnosis: ??within expected range for patient age. Procedure Note Brandee Nguyen MD - 02/19/2023 EXAMINATION: DXA CENTRAL SPINE, HIP, AND/OR WHOLE BODY (GENERIC) CLINICAL HISTORY: 47 years Female hyperparathyroidism, evaluate for osteoporosis - please image forearm as well (as entered by orderingprovider in the order requisition) TECHNIQUE: Scans were acquired at the lumbar spine, distal left forearmand left hip using the Hologic Horizon A system. COMPARISON: None FINDINGS: Femoral neck BMD: 0.735 g/cm2 Lowest Z-score at a diagnostic region of interest: Z-score: -0.4, PORSHA: Femoral neck, WHO diagnosis: within expected rangefor patient age. IMPRESSION Since the patient is a premenopausal woman, the ISCD recommends reportingbone mineral density diagnostic categories based on Z-scores. Measurements meet criteria for bone mineral density that is withinexpected range for patient age. Estimating Fracture Risk: ? The relationship between bone mineral density (BMD) and risk of fractureis well established. As BMD decreases, risk increases. Quantifying risk isdifficult and is usually limited to estimation of the relative risk - a term which mayhave limited value when trying to discuss an individual's risk. Estimatingthe absolute risk for a patient requires an understanding of the incidencerate in a given population and consideration of multiple, partially independent,risk factors in addition to BMD. ? The World Health Organization (WHO) has developed a fracture riskprediction tool that calculates a ten-year risk of major osteoporotic fracture basedon femoral neck bone density measurements and nine clinical risk factorsfor individuals who have not been treated for osteoporosis. This isavailable through an interactive web-based interface (http://www.shef.ac.uk/FRAX/)and can be used to estimate a given patient's absolute risk of majorosteoporotic fracture or hip fracture over the next 10 years. These estimates mayprove useful when discussing risk with a patient. It is important, however, to understand the tool's limitations and how a given individual's risk mightdiffer from the tool's estimate. The tool does not take into account thedose-response associated with most risk factors. For example, the significant increasein risk associated with multiple prior fractures compared to a single priorfracture is not taken into account. Similarly, the location of a previous fracture,the amount of glucocorticoids and number of cigarettes smoked are notconsidered. These limitations are discussed in a Frequently Asked Questions sectionof the FRAX website which you are encouraged to review. ? DXA data sheets with BMD measurements and plots are available in [employer] the imaging tab. Paper copies will be sent to providers without [employer] access.If you have received this report without the data sheet and do not haveaccess to [employer], please contact Radiology Joinery Factory Worker at [phone] Thursday 8am-4pm. Bone Density Report Name: Edyta Morfin Age: 47 Sex: Female Ethnicity: White Date of : 1975 Referring Provider: VICTORIANO HEREDIA Study: Bone densitometry was performed. Model: Talk Local (S/N [id number]) SW version 13.6.1.3 Exam Date: February 18, 2023 Accession number: [id number] Bone Density: Region BMD T-score Z-score AP Spine(L1-L4) 1.062 0.1 0.8 Femoral Neck (Left) 0.735 -1.0 -0.4 Total Hip (Left) 0.910 -0.3 0.2 1/3 Forearm (Left) 0.695 0.0 0.7 World Health Organization criteria for BMD/Z-score impression classify patients as: Within the expected range for age (Z-score greater than -2.0) Below the expected range for age (Z-score -2.0 or lower) Thank you for letting us participate in the care of this patient. If youare a health care provider and have any questions regarding this report,please contact the number below. For patients who have questions please contactthe health disabilities caregiver that requested your imaging first. Victoriano Heredia MD IMG DEXA ORDERABLES documented in this encounter Visit Diagnoses Diagnosis Primary hyperparathyroidism Hypercalcemia Primary hyperparathyroidism documented in this encounter Care Teams Wood Heel Flap Trimmer Relationship Specialty Start Date End Date [place] [address] PCP - General General Internal Medicine 08/04/22 documented as of this encounter
--- OUTSIDE RECORDS SUMMARY | 2024-04-22 00:24 | XMS_ITS | Encounter Summary ---
Author Organization [facility] [place] [address] Care Team Providers Care Manager Php Name Role Phone Haylie Steward MD Primary Care Provider + [phone] Encounter Details Date Type Department Care Team (Late st Contact Info) Description 02/17/2023 Telephone [place] [phone] Kamila Noriega, RN Social History Tobacco Use Types Packs/Day Years Used Date Smoking Tobacco: Never Smokeless Tobacco: Never Alcohol Use Standard Drinks/Week Comments Not Currently 0 (1 standard drink = 0.6 oz pur e alcohol) [facility] Inpatient Questions Answer Date Recorded Does Anyone [...] encounter Miscellaneous Notes * Telephone Encounter - Jamie Casey - 02/18/2023 4:14 PM EDT Patient is calling back again hoping for a call today with her test results. Please Call to Advise. * Telephone Encounter - Alexandra Ocampo - 02/18/2023 11:21 AM EDT Patient stated she was able to see results over the portal but would like to discuss with a provider Patient stated she is going to get her DXA scan today * Telephone Encounter - Jamie Casey - 02/17/2023 3:59 PM EDT Patient calling back again. Please Call to Advise. * Telephone Encounter - Kamila Noriega RN - 02/17/2023 1:34 PM EDT Copied from CRM #[id number]. Topic: Specialty Dept CRMs - Test Results >> Feb 16, 2023 3:42 PM Deya Soliman wrote: Test Results Request Specialist: Echt Relationship (if other than patient-full name): Patient Ordering Provider: Echt Type of Test: Labs Date of Test: 02/13/23 Where Was This Test Performed: [facility] >> Feb 17, 2023 9:38 AM Haylee Givens wrote: Patient said she collected a 24 hour urine sample on 02.13.23, and dropped it off at [facility] on 02.14.23. Patient would like to discuss results, and would also like to know if blood work is needed, per a message she received on [facility]. documented in this encounter Plan of Treatment Upcoming Encounters Date Type Department Care Team (Latest Contact Info) Description 04/22/2024 9:45 AM EST Scheduled View Only Radiation Oncology at [address] [phone] 04/25/2024 8:30 AM EST Scheduled View Only Radiation Oncology at [address] [address] 04/26/2024 3:00 PM EST Scheduled View Only Radiation Oncology at [address] [address] 04/26/2024 3:30 PM EST Office Visit Radiation Oncology at [address] [address] Ofe Fonseca MD [facility] RADIATION [place] [address] 04/28/2024 2:45 PM EST Scheduled View Only Radiation Oncology at [address] [address] 04/29/2024 3:00 PM EST Scheduled View Only Radiation Oncology at [address] [address] 05/02/2024 3:45 PM EST Scheduled View Only Radiation Oncology at [address] [address] 05/03/2024 1:45 PM EST Scheduled View Only Radiation Oncology at [address] [address] 05/03/2024 2:15 PM EST Office Visit Radiation Oncology at [address] [address] Ofe Fonseca MD [facility] [place] [address] 05/05/2024 8:15 AM EST Scheduled View Only Radiation Oncology at [address] [address] 05/06/2024 12:30 PM EST Scheduled View Only Radiation Oncology at [address] [address] 05/09/2024 3:00 PM EST Scheduled View Only Radiation Oncology at [address] [address] 05/10/2024 2:30 PM EST Scheduled View Only Radiation Oncology at [address] [address] 05/10/2024 3:15 PM EST Office Visit Radiation Oncology at [address] [address] Ofe Fonseca MD [facility] [place] [address] 05/11/2024 2:45 PM EST Scheduled View Only Radiation Oncology at [address] [address] 06/03/2024 3:30 PM EST Appointment Ultrasound at [place] [phone] Mira Hutchison [facility] [place] [place] [address] 06/23/2024 4:00 PM EST Appointment Mammography/DXA at [place] [phone] Miryam Feliciano MD [facility] [place] [address] 07/12/2024 8:00 AM EDT Laboratory Appointment Lab [address] [phone] 07/12/2024 9:30 AM EDT Office Visit Nephrology [place] [phone] Sharmin Jean-Baptiste [facility] [place] [address] 07/13/2024 10:30 AM EDT Laboratory Appointment Lab at [facility] [place] Oncology [address] [place] [phone] 07/13/2024 11:30 AM EDT Office Visit Hematology [place] [address] Salena Alvares APRN [facility] [place] [address] 07/13/2024 12:45 PM EDT Appointment Hematology [place] [phone] documented as of this encounter Visit Diagnoses Not on filedocumented in this encounter Care Teams Manager Php Relationship Specialty Start Date End Date [place] [address] PCP - General General Internal Medicine 08/04/22 documented as of this encounter
--- OUTSIDE RECORDS SUMMARY | 2024-04-22 00:24 | XMS_ITS | Encounter Summary ---
Author Organization [facility] [place] [address] Care Team Providers Care Textile Slitting Machine Operator Name Role Phone Haylie Steward MD Primary Care Provider + [phone] Encounter Details Date Type Department Care Team (Late st Contact Info) Description 02/20/2023 Orders [place] [phone] Victoriano Heredia MD [facility] [place] [address] Primary hyperparathyroidism Social History Tobacco Use Types Packs/Day Years Used Date Smoking Tobacco: Never Smokeless Tobacco: Never Alcohol Use Standard Drinks/Week Comments Not Currently 0 (1 standard drink = 0.6 oz pur e alcohol) [facility] Inpatient Questions Answer Date Recorded [...] as of this encounter Miscellaneous Notes * Addendum Note - Victoriano Heredia MD - 02/20/2023 3:20 PM EDTAddended by: VICTORIANO HEREDIA on: 02/20/2023 03:27 PM Modules accepted: Orders documented in this encounter Plan of Treatment Upcoming Encounters Date Type Department Care Team (Latest Contact Info) Description 04/22/2024 9:45 AM EST Scheduled View Only Radiation Oncology at [address] [phone] 04/25/2024 8:30 AM EST Scheduled View Only Radiation Oncology at [address] [address] 04/26/2024 3:00 PM EST Scheduled View Only Radiation Oncology at [address] [address] 04/26/2024 3:30 PM EST Office Visit Radiation Oncology at [address] [address] Ofe Fonseca MD [facility] DR [place] [address] 04/28/2024 2:45 PM EST Scheduled View Only Radiation Oncology at [address] [address] 04/29/2024 3:00 PM EST Scheduled View Only Radiation Oncology at [address] [address] 05/02/2024 3:45 PM EST Scheduled View Only Radiation Oncology at [address] [address] 05/03/2024 1:45 PM EST Scheduled View Only Radiation Oncology at [address] [address] 05/03/2024 2:15 PM EST Office Visit Radiation Oncology at [address] [address] Ofe Fonseca MD [facility] [place] [address] 05/05/2024 8:15 AM EST Scheduled View Only Radiation Oncology at [address] [address] 05/06/2024 12:30 PM EST Scheduled View Only Radiation Oncology at [address] [address] 05/09/2024 3:00 PM EST Scheduled View Only Radiation Oncology at [address] [address] 05/10/2024 2:30 PM EST Scheduled View Only Radiation Oncology at [address] [address] 05/10/2024 3:15 PM EST Office Visit Radiation Oncology at [address] [address] Ofe Fonseca MD [facility] [place] [place] [address] 05/11/2024 2:45 PM EST Scheduled View Only Radiation Oncology at [address] [address] 06/03/2024 3:30 PM EST Appointment Ultrasound at [place] [phone] Mira Hutchison APRN [facility] [place] [address] 06/23/2024 4:00 PM EST Appointment Mammography/[place] [phone] Miryam Feliciano MD [facility] [place] [address] 07/12/2024 8:00 AM EDT Laboratory Appointment Lab [address] [phone] 07/12/2024 9:30 AM EDT Office Visit Nephrology [place] [address] Sharmin Jean-Baptiste, [facility] [place] [address] 07/13/2024 10:30 AM EDT Laboratory Appointment Lab at [facility] Hematology Oncology [address] [place] [address] 07/13/2024 11:30 AM EDT Office Visit Hematology [place] [address] Salena Alvares, [facility] [place] [address] 07/13/2024 12:45 PM EDT Appointment Hematology [place] [address] documented as of this encounter Results * Vitamin D, 25-Hydroxy (06/08/2023 11:04 AM EST) Vitamin D Total 25 OH 41 21 - 100 ng/mL [facility] Vit D Interp Sufficient [facility] Blood 06/08/2023 11:0 4 AM EST 06/08/2023 11:19 AM EST Narrative Resulting Agency Comment Spec In Lab Victoriano Heredia MD CHEMISTRY ORDERABLES [facility] [place] [address] * (ABNORMAL) PTH (06/08/2023 11:04 AM EST) Parathyroid Hormone 138(H) 15 - 65 pg/mL [facility] Blood 06/08/2023 11:0 4 AM EST 06/08/2023 11:20 AM EST Narrative Resulting Agency Comment Spec In Lab Victoriano Heredia MD CHEMISTRY ORDERABLES [facility] [place] [address] documented in this encounter Visit Diagnoses Diagnosis Primary hyperparathyroidism documented in this encounter Care Teams Textile Slitting Machine Operator Relationship Specialty Start Date End Date Haylie Steward MD [facility] [place] [address] PCP - General General Internal Medicine 08/04/22 documented as of this encounter
--- OUTSIDE RECORDS SUMMARY | 2024-04-22 00:24 | XMS_ITS | Encounter Summary ---
Author Organization [facility] [place] [address] Care Team Providers Care Naval Marine Engineer Name Role Phone Haylie Steward MD Primary Care Provider + [phone] Encounter Details Date Type Department Care Team (Late st Contact Info) Description 06/05/2023 [place] [phone] Kamila Noriega RN Social History Tobacco Use Types Packs/Day Years Used Date Smoking Tobacco: Never Smokeless Tobacco: Never Alcohol Use Standard Drinks/Week Comments Not Currently 0 (1 standard drink = 0.6 oz pur e alcohol) [facility] In[facility] Questions Answer Date Recorded Does [...] encounter Miscellaneous Notes * Telephone Encounter - Kamila Noriega RN - 06/05/2023 2:54 PM EST Copied from [facility] #[id number]. Topic: Specialty Dept CRMs - Generic Call >> Jun 05, 2023 12:55 PM Kristie Merlos wrote: Specialist: : Angela Heredia MD Relationship (if other than patient-full name): self Reason for Call: Patient is calling and wondering if she needs to hold off on taking any of her meds before her getting her labs done. Please call to advise. documented in this encounter Plan of Treatment Upcoming Encounters Date Type Department Care Team (Latest Contact Info) Description 04/22/2024 9:45 AM EST Scheduled View Only Radiation Oncology at [address] [address] 04/25/2024 8:30 AM EST Scheduled View Only Radiation Oncology at [address] [address] 04/26/2024 3:00 PM EST Scheduled View Only Radiation Oncology at [address] [address] 04/26/2024 3:30 PM EST Office Visit Radiation Oncology at [address] [address] Ofe Fonseca MD [facility] [place] [address] 04/28/2024 2:45 PM EST Scheduled View Only Radiation Oncology at [address] [address] 04/29/2024 3:00 PM EST Scheduled View Only Radiation Oncology at [address] [address] 05/02/2024 3:45 PM EST Scheduled View Only Radiation Oncology at [address] [address] 05/03/2024 1:45 PM EST Scheduled View Only Radiation Oncology at [address] [address] 05/03/2024 2:15 PM EST Office Visit Radiation Oncology at [address] [address] Ofe Fonseca MD [facility] [place] [address] 05/05/2024 8:15 AM EST Scheduled View Only Radiation Oncology at [address] [address] 05/06/2024 12:30 PM EST Scheduled View Only Radiation Oncology at [address] [address] 05/09/2024 3:00 PM EST Scheduled View Only Radiation Oncology at [address] [address] 05/10/2024 2:30 PM EST Scheduled View Only Radiation Oncology at [address] [address] 05/10/2024 3:15 PM EST Office Visit Radiation Oncology at [address] [address] Ofe Fonseca MD [facility] [place] [address] 05/11/2024 2:45 PM EST Scheduled View Only Radiation Oncology at [address] [address] 06/03/2024 3:30 PM EST Appointment Ultrasound at [place] [phone] Mira Hutchison APRN [facility] [place] [address] 06/23/2024 4:00 PM EST Appointment Mammography/DXA at [place] [phone] Miryam Feliciano MD [facility] [place] [address] 07/12/2024 8:00 AM EDT Laboratory Appointment Lab [place] [address] 07/12/2024 9:30 AM EDT Office Visit Nephrology Hypertension at [place] [phone] Sharmin Jean-Baptiste, [facility] [address] 07/13/2024 10:30 AM EDT Laboratory Appointment Lab at [facility] Hematology Oncology [address] [place] [phone] 07/13/2024 11:30 AM EDT Office Visit Hematology [place] [phone] Salena Alvares, [facility] [place] [address] 07/13/2024 12:45 PM EDT Appointment Hematology and Oncology at [place] [phone] documented as of this encounter Visit Diagnoses Not on filedocumented in this encounter Additional Health Concerns Infection Onset Date Last Indicated Resolved Time Rule Out C. difficile 06/18/2023 06/18/20232023 2:04 PM EST documented as of this encounter Care Teams Naval Marine Engineer Relationship Specialty Start Date End Date Haylie Steward MD [facility] [place] [address] PCP - General General Internal Medicine 08/04/22 documented as of this encounter
--- OUTSIDE RECORDS SUMMARY | 2024-04-22 00:24 | XMS_ITS | Encounter Summary ---
Author Organization [facility] [place] [address] Care Team Providers Care Tower Control Operator Name Role Phone Haylie Steward MD Primary Care Provider + [phone] Reason for Visit * Reason Comments Follow-up Encounter Details Date Type Department Care Team (Late st Contact Info) Description 03/19/2023 8:00 AM EST Office Visit Obstetrics [place] [address] Maryjane Morton V, [facility] OBSTETRICS [place] [address] Abnormal uterine bleeding (AUB) Social History Tobacco Use Types Packs/Day Years Used Date Smoking Tobacco: Never Smokeless Tobacco: Never Alcohol Use Standard Drinks/Week Comments Not Currently 0 (1 standard drink = 0.6 oz pur e alcohol) [facility] Inpatient Questions Answer Date Recorded [...] Sign Reading Time Taken Comments Blood Pressure 146/79 03/19/2023 8:22 AM EST Pulse 74 03/19/2023 8:22 AM EST Temperature 35.9 ??C (96.7 ??F) 03/19/2023 8:22 AM ES T Respiratory Rate 18 03/19/2023 8:22 AM EST Oxygen Saturation 100% 03/19/2023 8:22 AM EST Inhaled Oxygen Concentration - - Weight 56.9 kg (125 lb 8 oz) 03/19/2023 8:22 AM EST Height - - Body Mass Index 22.23 02/20/2023 4:51 PM EDT documented in this encounter Progress Notes * Maryjane Morton V, SPECIAL EDUCATION CASE MANAGER - 03/19/2023 8:00 AM EST CC: ANGELA Subjective: Nataliya Morfin is a 48 y.o. No obstetric history on file. who presents today with concern for abnormal menstrual cycles. Pt arrived 17 minutes late for appointment. Her history is significant for Hypothyroid Hyperparathyroid Bipolar Chronic kidney disease Nataliya was seen for this concern 02/25/23 and per that note she described: Reports since October, she's had period more often - 2-3x/mo, sometimes lasting 2 days, sometimes lasting 10 days. Use to be monthly for a couple of days. Denies hot flashes, night sweats. Not sexually active, never on BC. She was given several options for follow up and opted for a TVUS. She had that done yesterday and is here to review the results. Pt has a significant trauma history ROS: See HPI, all others negative. Objective: LMP 02/20/2023 BP 146/79 Pulse 74 Temp 35.9 ??C (96.7 ??F) (Temporal) Resp 18 Wt 56.9 kg (125 lb 8 oz) LMP 03/15/2023 SpO2 100% BMI 22.23 kg/m?? Lab Results Component Value Date WBC 4.7 01/06/2023 HGB 14.0 01/06/2023 HCT 44.6 01/06/2023 MCV 92.0 01/06/2023 PLATELET 273 01/06/2023 Lab Results Component Value Date TSH 1.68 02/12/2023 Transabdominal pelvic US 03/18/23 TECHNIQUE/SCAN QUALITY: Scan Quality: Transabdominal US. Pt [...] the right ovary, grossly unremarkable as visualized. Pelvic Exam: deferred Assessment/Plan Nataliya Morfin is a 48 y.o. No obstetric history on file. who presents today with to discuss her abnormal periods and follow up TVUS results Likely etiology for AUB is fibroid uterus. We discussed medical and surgical options including Tranexamic acid 1.3gm PO TID until bleeding stops (typically about 4 days). Hormonal control including pill, patch, ring, LNG-IUD Surgical management At this time, Nataliya Morfin desires discussing surgical options. Referral to MD for follow up RTC for MD visit and prn Maryjane Morton APRN documented in this encounter Plan of Treatment Upcoming Encounters Date Type Department Care Team (Latest Contact Info) Description 04/22/2024 9:45 AM EST Scheduled View Only Radiation Oncology at [address] [phone] 04/25/2024 8:30 AM EST Scheduled View Only Radiation Oncology at [address] [address] 04/26/2024 3:00 PM EST Scheduled View Only Radiation Oncology at [address] [address] 04/26/2024 3:30 PM EST Office Visit Radiation Oncology at [address] [address] Ofe Fonseca MD [facility] [place] [address] 04/28/2024 2:45 PM EST Scheduled View Only Radiation Oncology at [address] [address] 04/29/2024 3:00 PM EST Scheduled View Only Radiation Oncology at [address] [address] 05/02/2024 3:45 PM EST Scheduled View Only Radiation Oncology at [address] [address] 05/03/2024 1:45 PM EST Scheduled View Only Radiation Oncology at [address] [address] 05/03/2024 2:15 PM EST Office Visit Radiation Oncology at [address] [address] Ofe Fonseca MD [facility] [place] [address] 05/05/2024 8:15 AM EST Scheduled View Only Radiation Oncology at [address] [address] 05/06/2024 12:30 PM EST Scheduled View Only Radiation Oncology at [address] [address] 05/09/2024 3:00 PM EST Scheduled View Only Radiation Oncology at [address] [address] 05/10/2024 2:30 PM EST Scheduled View Only Radiation Oncology at [address] [address] 05/10/2024 3:15 PM EST Office Visit Radiation Oncology at [address] [address] Ofe Fonseca MD [facility] [place] [address] 05/11/2024 2:45 PM EST Scheduled View Only Radiation Oncology at [address] [address] 06/03/2024 3:30 PM EST [place] [address] Mira Hutchison APRN [facility] [place] [address] 06/23/2024 4:00 PM EST Appointment Mammography/DXA at [place] [phone] Miryam Feliciano MD [facility] [place] [place] [address] 07/12/2024 8:00 AM EDT Laboratory Appointment Lab [place] [phone] 07/12/2024 9:30 AM EDT Office Visit Neph[place] [phone] Sharmin Jean-Baptiste, [facility] [place] [address] 07/13/2024 10:30 AM EDT Laboratory Appointment Lab at [facility] Hematology Oncology [address] [place], [place] [phone] 07/13/2024 11:30 AM EDT Office Visit Hematology and Oncology at [place] [phone] Salena Alvares, [facility] [place] [address] 07/13/2024 12:45 PM EDT Appointment Hematology and Oncology at [place] [phone] documented as of this encounter Visit Diagnoses Diagnosis Abnormal uterine bleeding (AUB) documented in this encounter Care Teams Tower Control Operator Relationship Specialty Start Date End Date Haylie Steward MD [facility] [place] [address] PCP - General General Internal Medicine 08/04/22 documented as of this encounter
--- OUTSIDE RECORDS SUMMARY | 2024-04-22 00:24 | XMS_ITS | Encounter Summary ---
Author Organization [facility] [place] [address] Care Team Providers Care Automatic Grinder Operator Name Role Phone Haylie Steward MD Primary Care Provider [phone] Encounter Details Date Type Department Care Team (Latest Contact Info) Description 04/23/2023 Travel Social History Tobacco Use Types Packs/Day [...] Scheduled View Only Radiation Oncology at [address] [address] 04/25/2024 8:30 AM EST Scheduled View Only Radiation Oncology at [address] [phone] 04/26/2024 3:00 PM EST Scheduled View Only Radiation Oncology at [address] [address] 04/26/2024 3:30 PM EST Office Visit Radiation Oncology at [address] [address] Ofe Fonseca MD [facility] [address] 04/28/2024 2:45 PM EST Scheduled View Only Radiation Oncology at [address] [address] 04/29/2024 3:00 PM EST Scheduled View Only Radiation Oncology at [address] [address] 05/02/2024 3:45 PM EST Scheduled View Only Radiation Oncology at [address] [address] 05/03/2024 1:45 PM EST Scheduled View Only Radiation Oncology at [address] [address] 05/03/2024 2:15 PM EST Office Visit Radiation Oncology at [address] [address] Ofe Fonseca MD [facility] [address] 05/05/2024 8:15 AM EST Scheduled View Only Radiation Oncology at [address] [address] 05/06/2024 12:30 PM EST Scheduled View Only Radiation Oncology at [address] [address] 05/09/2024 3:00 PM EST Scheduled View Only Radiation Oncology at [address] [address] 05/10/2024 2:30 PM EST Scheduled View Only Radiation Oncology at [address] [address] 05/10/2024 3:15 PM EST Office Visit Radiation Oncology at [address] [phone] Ofe Fonseca MD [facility] [place] [address] 05/11/2024 2:45 PM EST Scheduled View Only Radiation Oncology at [address] [phone] 06/03/2024 3:30 PM EST [place] [phone] Mira Hutchison, [facility] [address] 06/23/2024 4:00 PM EST Appointment Mammography/[place] [phone] Miryam Feliciano MD [facility] [place] [address] 07/12/2024 8:00 AM EDT Laboratory Appointment Lab [address] [place] [phone] 07/12/2024 9:30 AM EDT Office Visit [place] [phone] Sharmin Jean-Baptiste [facility] [place] [address] 07/13/2024 10:30 AM EDT Laboratory Appointment Lab at [facility] [place] On[place] [address] [place] [phone] 07/13/2024 11:30 AM EDT Office Visit [place] [address] Salena Alvares APRN [facility] [place] [address] 07/13/2024 12:45 PM EDT Appointment [place] [phone] documented as of this encounter Visit Diagnoses Not on filedocumented in this encounter Care Teams Automatic Grinder Operator Relationship Specialty Start Date End [place] [address] PCP - General General Internal Medicine 08/04/22 documented as of this encounter
--- OUTSIDE RECORDS SUMMARY | 2024-04-22 00:24 | XMS_ITS | Encounter Summary ---
Author Organization [facility] [place] [address] Care Team Providers Care Pony Cylinder Press Operator Name Role Phone Haylie Steward MD Primary Care Provider + [phone] Encounter Details Date Type Department Care Team (Latest Contact Info) Description 02/18/2023 1:00 PM EDT Ancillary Procedure Radiology DXA at [facility] at [facility] [address] [place] [phone] Victoriano Heredia MD [facility] [place] [address] Primary hyperparathyroidism Social History Tobacco Use Types [...] Scheduled View Only Radiation Oncology at [address] [address] 04/25/2024 8:30 AM EST Scheduled View Only Radiation Oncology at [address] [address] 04/26/2024 3:00 PM EST Scheduled View Only Radiation Oncology at [address] [address] 04/26/2024 3:30 PM EST Office Visit Radiation Oncology at [address] [address] Ofe Fonseca MD [facility] [place] [address] 04/28/2024 2:45 PM EST Scheduled View Only Radiation Oncology at [address] [address] 04/29/2024 3:00 PM EST Scheduled View Only Radiation Oncology at [address] [address] 05/02/2024 3:45 PM EST Scheduled View Only Radiation Oncology at [address] [address] 05/03/2024 1:45 PM EST Scheduled View Only Radiation Oncology at [address] [address] 05/03/2024 2:15 PM EST Office Visit Radiation Oncology at [address] [address] Ofe Fonseca MD [facility] [place] [address] 05/05/2024 8:15 AM EST Scheduled View Only Radiation Oncology at [address] [address] 05/06/2024 12:30 PM EST Scheduled View Only Radiation Oncology at [address] [address] 05/09/2024 3:00 PM EST Scheduled View Only Radiation Oncology at [address] [address] 05/10/2024 2:30 PM EST Scheduled View Only Radiation Oncology at [address] [address] 05/10/2024 3:15 PM EST Office Visit Radiation Oncology at [address] [address] Ofe Fonseca MD [facility] [place] [address] 05/11/2024 2:45 PM EST Scheduled View Only Radiation Oncology at [address] [address] 06/03/2024 3:30 PM EST Appointment Ultrasound at [place] [phone] Mira Hutchison VOCATIONAL ADVISER [facility] [place] [address] 06/23/2024 4:00 PM EST Appointment Mammography/DXA at [place] [phone] Miryam Feliciano MD [facility] [place] [address] 07/12/2024 8:00 AM EDT Laboratory Appointment Lab [place] [phone] 07/12/2024 9:30 AM EDT Office Visit Neph[place] [phone] Sharmin Jean-Baptiste VOCATIONAL ADVISER [facility] [place] [address] 07/13/2024 10:30 AM EDT Laboratory Appointment Lab at [facility] [place]ematology Oncology [address] [place] [phone] 07/13/2024 11:30 AM EDT Office Visit Hematology [place] [address] Salena Alvares APRN [facility] DR MEDICAL ONCOLOGY [place] [phone] 07/13/2024 12:45 PM EDT Appointment Hematology [place] [phone] documented as of this encounter Procedures Procedure Name Priority Date/Time Associated Diagnosis Comments DXA CENTRAL SPINE, HIP, AND/OR WHOLE BODY (GENERIC) Routine 02/18/2023 1:23 PM EDT Primary hyperparathyroidism documented in this encounter Results * DXA Central Spine, [...] BMD measurements and plots are available in EHango under the imaging tab. Paper copies will be sent to providers without E- access. If you have received this report without the data sheet and do not have access to EHango, please contact Radiology Classified Advertising Clerk at [phone] Thursday thru Thursday 8am-4pm. ? Bone Density Report ? Name: ?Nataliya Morfin Age: ? 47 Sex: ? Female Ethnicity: ? White Date of : 1975 Referring Provider: VICTORIANO HEREDIA Study: Bone densitometry was performed. Model: Well Done (S/N 116474B) SW version 13.6.1.3 Exam Date: February 18, 2023 Accession number: [id number] Bone Density: Region ? BMD ?T-score ??Z-score [...] have questions please contact the health healthcare financial analyst that requested your imaging first. ? Electronically signed by: Brandee Nguyen MD, [facility] ([phone]), at 02/19/2023 9:33 AM Narrative 02/19/2023 9:33 AM EDT EXAMINATION: DXA CENTRAL SPINE, HIP, AND/OR WHOLE BODY (GENERIC) CLINICAL HISTORY: 47 years Female hyperparathyroidism, evaluate for osteoporosis - please image forearm as well (as entered by ordering provider in the order requisition) TECHNIQUE: Scans were acquired at the lumbar spine, distal left forearm and left hip using the Holo[employer] Med A system. COMPARISON: None FINDINGS: Femoral neck [...] distal left forearmand left hip using the smartclip A system. COMPARISON: None FINDINGS: Femoral neck [...] BMD measurements and plots are available in EHangounder the imaging tab. Paper copies will be sent to providers without iloho access.If you have received this report without the data sheet and do not haveaccess to iloho, please contact Radiology Classified Advertising Clerk at [phone] Thursday 8am-4pm. Bone Density Report Name: Nataliya Morfin Age: 47 Sex: Female Ethnicity: White Date of : 1975 Referring Provider: VICTORIANO HEREDIA Study: Bone densitometry was performed. Model: Well Done (S/N 513086S) [facility] version 13.6.1.3 Exam Date: February 18, 2023 Accession number: [id number] Bone Density: Region BMD T-score Z-score AP [...] who have questions please contactthe health healthcare financial analyst that requested your imaging first. Victoriano Heredia MD IMG DEXA ORDERABLES documented in this encounter Visit Diagnoses Diagnosis Primary hyperparathyroidism documented in this encounter Care Teams Pony Cylinder Press Operator Relationship Specialty Start Date [place] [address] PCP - General General Internal Medicine 08/04/22 documented as of this encounter
--- OUTSIDE RECORDS SUMMARY | 2024-04-22 00:24 | XMS_ITS | Encounter Summary ---
Author Organization [facility] [place] [address] Care Team Providers Care Inspector Timers Name Role Phone Haylie Steward MD Primary Care Provider [phone] Encounter Details Date Type Department Care Team (Late st Contact Info) Description 03/18/2023 Telephone Obstetrics [place] [phone] Apoorva rGuber Social History Tobacco Use Types Packs/Day Years Used Date Smoking Tobacco: Never Smokeless Tobacco: Never Alcohol Use Standard Drinks/Week Comments Not Currently 0 (1 standard drink = 0.6 oz pur e alcohol) [facility] Inpatient Questions Answer Date Recorded Does Anyone [...] Scheduled View Only Radiation Oncology at [address] [address] 04/25/2024 8:30 AM EST Scheduled View Only Radiation Oncology at [address] [address] 04/26/2024 3:00 PM EST Scheduled View Only Radiation Oncology at [address] [address] 04/26/2024 3:30 PM EST Office Visit Radiation Oncology at [address] [address] Ofe Fonseca MD [facility] RADIATION [place] [address] 04/28/2024 2:45 PM EST Scheduled View Only Radiation Oncology at [address] [address] 04/29/2024 3:00 PM EST Scheduled View Only Radiation Oncology at [address] [address] 05/02/2024 3:45 PM EST Scheduled View Only Radiation Oncology at [address] [address] 05/03/2024 1:45 PM EST Scheduled View Only Radiation Oncology at [address] [address] 05/03/2024 2:15 PM EST Office Visit Radiation Oncology at [address] [address] Ofe Fonseca MD [facility] [place] [address] 05/05/2024 8:15 AM EST Scheduled View Only Radiation Oncology at [address] [address] 05/06/2024 12:30 PM EST Scheduled View Only Radiation Oncology at [address] [address] 05/09/2024 3:00 PM EST Scheduled View Only Radiation Oncology at [address] [address] 05/10/2024 2:30 PM EST Scheduled View Only Radiation Oncology at [address] [phone] 05/10/2024 3:15 PM EST Office Visit Radiation Oncology at [address] [phone] Ofe Fonseca MD [facility] [place] [address] 05/11/2024 2:45 PM EST Scheduled View Only Radiation Oncology at [address] [phone] 06/03/2024 3:30 PM EST Appointment Ultrasound at [place] [phone] Mira Hutchison [facility] [place] [address] 06/23/2024 4:00 PM EST Appointment Mammography/DXA at [place] [phone] Miryam Feliciano MD [facility] [place] [address] 07/12/2024 8:00 AM EDT Laboratory Appointment Lab [place] [phone] 07/12/2024 9:30 AM EDT Office Visit [place] [phone] Sharmin Jean-Baptiste [facility] [place] [address] 07/13/2024 10:30 AM EDT Laboratory Appointment Lab at [facility] Hematology Oncology [address] [place] [phone] 07/13/2024 11:30 AM EDT Office Visit Hematology [place] [address] Salena Alvares APRN [facility] [place] [address] 07/13/2024 12:45 PM EDT Appointment Hematology [place] [address] documented as of this encounter Visit Diagnoses Not on filedocumented in this encounter Care Teams Inspector Timers Relationship Specialty Start Date [place] [address] PCP - General General Internal Medicine 08/04/22 documented as of this encounter
--- OUTSIDE RECORDS SUMMARY | 2024-04-22 00:25 | XMS_ITS | Encounter Summary ---
Author Organization [facility] [place] [address] Care Team Providers Care Offset Press Operator Apprentice Name Role Phone Haylie Steward MD Primary Care Provider [phone] Encounter Details Date Type Department Care Team (Late st Contact Info) Description 11/21/2022 Telephone Nephrology [place] [phone] Lashae Ryan Social History Tobacco Use Types Packs/Day Years Used Date Smoking Tobacco: Never Smokeless Tobacco: Never Alcohol Use Standard Drinks/Week Comments Not Currently 0 (1 standard drink = 0.6 oz pur e alcohol) [facility] Inpatient Questions Answer Date Recorded Does [...] Scheduled View Only Radiation Oncology at [address] [address] 04/25/2024 8:30 AM EST Scheduled View Only Radiation Oncology at [address] [address] 04/26/2024 3:00 PM EST Scheduled View Only Radiation Oncology at [address] [address] 04/26/2024 3:30 PM EST Office Visit Radiation Oncology at [address] [address] Ofe Fonseca MD [facility] RADIATION [place] [address] 04/28/2024 2:45 PM EST Scheduled View Only Radiation Oncology at [address] [address] 04/29/2024 3:00 PM EST Scheduled View Only Radiation Oncology at [address] [address] 05/02/2024 3:45 PM EST Scheduled View Only Radiation Oncology at [address] [address] 05/03/2024 1:45 PM EST Scheduled View Only Radiation Oncology at [address] [address] 05/03/2024 2:15 PM EST Office Visit Radiation Oncology at [address] [address] Ofe Fonseca MD [facility] [place] [address] 05/05/2024 8:15 AM EST Scheduled View Only Radiation Oncology at [address] [address] 05/06/2024 12:30 PM EST Scheduled View Only Radiation Oncology at [address] [address] 05/09/2024 3:00 PM EST Scheduled View Only Radiation Oncology at [address] [address] 05/10/2024 2:30 PM EST Scheduled View Only Radiation Oncology at [address] [phone] 05/10/2024 3:15 PM EST Office Visit Radiation Oncology at [address] [phone] Ofe Fonseca MD [facility] [place] [address] 05/11/2024 2:45 PM EST Scheduled View Only Radiation Oncology at [address] [phone] 06/03/2024 3:30 PM EST Appointment Ultrasound at [place] [phone] Mira Hutchison [facility] [place] [address] 06/23/2024 4:00 PM EST Appointment Mammography/DXA at [place] [phone] Miryam Feliciano MD [facility] [place] [address] 07/12/2024 8:00 AM EDT Laboratory Appointment Lab [address] [phone] 07/12/2024 9:30 AM EDT Office Visit Nephrology [place] [phone] Sharmin Jean-Baptiste [facility] [place] [address] 07/13/2024 10:30 AM EDT Laboratory Appointment Lab [place] [facility] [place] [address] [place] [phone] 07/13/2024 11:30 AM EDT Office Visit Hematology [place] [address] Salena Alvares APRN [facility] [place] [address] 07/13/2024 12:45 PM EDT Appointment Hematology [place] [address] documented as of this encounter Visit Diagnoses Not on filedocumented in this encounter Care Teams Offset Press Operator Apprentice Relationship Specialty Start Date End [place] [address] PCP - General General Internal Medicine 08/04/22 documented as of this encounter
--- OUTSIDE RECORDS SUMMARY | 2024-04-22 00:25 | XMS_ITS | Encounter Summary ---
Author Organization [facility] [place] [address] Care Team Providers Care Electronics Maintenance Technician Name Role Phone Haylie Steward MD Primary Care Provider + [phone] Encounter Details Date Type Department Care Team (Late st Contact Info) Description 12/15/2022 Orders Only [place] [phone] Betina Varma, CARROTING MACHINE OFFBEARER [facility] [place] [address] Social History Tobacco Use Types Packs/Day Years Used Date Smoking Tobacco: Never Smokeless Tobacco: Never Alcohol Use Standard Drinks/Week Comments Not Currently 0 (1 standard drink = 0.6 oz pur e alcohol) [facility] Inpatient Questions Answer Date Recorded [...] Scheduled View Only Radiation Oncology at [address] [address] 04/25/2024 8:30 AM EST Scheduled View Only Radiation Oncology at [address] [address] 04/26/2024 3:00 PM EST Scheduled View Only Radiation Oncology at [address] [address] 04/26/2024 3:30 PM EST Office Visit Radiation Oncology at [address] [phone] Ofe Fonseca MD [facility] [place] [address] 04/28/2024 2:45 PM EST Scheduled View Only Radiation Oncology at [address] [address] 04/29/2024 3:00 PM EST Scheduled View Only Radiation Oncology at [address] [address] 05/02/2024 3:45 PM EST Scheduled View Only Radiation Oncology at [address] [address] 05/03/2024 1:45 PM EST Scheduled View Only Radiation Oncology at [address] [address] 05/03/2024 2:15 PM EST Office Visit Radiation Oncology at [address] [address] Ofe Fonseca MD [facility] RADIATION [place] [address] 05/05/2024 8:15 AM EST Scheduled View Only Radiation Oncology at [address] [address] 05/06/2024 12:30 PM EST Scheduled View Only Radiation Oncology at [address] [address] 05/09/2024 3:00 PM EST Scheduled View Only Radiation Oncology at [address] [address] 05/10/2024 2:30 PM EST Scheduled View Only Radiation Oncology at [address] [address] 05/10/2024 3:15 PM EST Office Visit Radiation Oncology at [address] [address] Ofe Fonseca MD [facility] [place] [address] 05/11/2024 2:45 PM EST Scheduled View Only Radiation Oncology at [address] [address] 06/03/2024 3:30 PM EST Appointment Ultrasound at [place] [phone] Mira Hutchison [facility] [place] [address] 06/23/2024 4:00 PM EST Appointment Mammography/DXA at [place] [phone] Miryam Feliciano MD [facility] [place] [address] 07/12/2024 8:00 AM EDT Laboratory Appointment Lab [address] [phone] 07/12/2024 9:30 AM EDT Office Visit Nephrology Hypertension at [place] [phone] Sharmin Jean-Baptiste CARROTING MACHINE OFFBEARER [facility] [place] [address] 07/13/2024 10:30 AM EDT Laboratory Appointment Lab [place] [facility] [place] [address] [place] [address] 07/13/2024 11:30 AM EDT Office Visit Hematology [place] [address] Salena Alvares APRN [facility] [place] [address] 07/13/2024 12:45 PM EDT Appointment Hematology [place] [phone] documented as of this encounter Procedures Procedure Name Priority Date/Time Associated Diagnosis Comments MUMPS ANTIBODY, IGG Routine 12/15/2022 4 :56 PM EDT documented in this encounter Results * Mumps Antibody, IgG (12/15/2022 4:56 PM EDT) Mumps Antibody IgG Positive Positive [facility] Comment: A positive result for this assay is considered to be an indicator of positive immune status. Blood Venous Draw / Unknown 12/15/2022 4:56 PM EDT 12/16/2022 7:18 AM EDT Narrative Resulting Agency Comment Spec In Lab Betina Varma CARROTING MACHINE OFFBEARER IMMUNOLOGY ORDERABLE [facility] [place] [address] documented in this encounter Visit Diagnoses Not on filedocumented in this encounter Care Teams Electronics Maintenance Technician Relationship Specialty Start Date End Date [place] [address] [place] [address] PCP - General General Internal Medicine 08/04/22 documented as of this encounter
--- OUTSIDE RECORDS SUMMARY | 2024-04-22 00:25 | XMS_ITS | Encounter Summary ---
[facility] [place] [address] Care Team Providers Care Steel Erector Apprentice Name Role Phone Haylie Steward MD Primary Care Provider + [phone] Encounter Details Date Type Department Care Team (Late st Contact Info) Description 09/17/2022 [place] [phone] Ольга Bazzi RN Social History Tobacco Use Types Packs/Day [...] encounter Miscellaneous Notes * Telephone Encounter - Ольга Bazzi RN - 09/17/2022 11:54 AM EDT I attempted to return the pt's call. No answer, left voicemail requesting a return call as needed. Copied from [facility] #[id number]. Topic: Specialty Dept CRMs - Generic Call >> September 17, 2022 10:01 AM Toma Gilmore wrote: Specialist: Foster Relationship (if other than patient-full name): self Reason for Call: Patient states was seen yesterday for Urinary Incontinence but wants to know what she thinks has caused that? Please call the patient back after 11am today if possible. documented in this encounter Plan of Treatment Upcoming Encounters Date Type Department Care Team (Latest Contact Info) Description 04/22/2024 9:45 AM EST Scheduled View Only Radiation Oncology at [address] [phone] 04/25/2024 8:30 AM EST Scheduled View Only Radiation Oncology at [address] [phone] 04/26/2024 3:00 PM EST Scheduled View Only Radiation Oncology at [address] [phone] 04/26/2024 3:30 PM EST Office Visit Radiation Oncology at [address] [phone] Ofe Fonseca MD [facility] [place] [address] 04/28/2024 2:45 PM EST Scheduled View Only Radiation Oncology at [address] [phone] 04/29/2024 3:00 PM EST Scheduled View Only Radiation Oncology at [address] [phone] 05/02/2024 3:45 PM EST Scheduled View Only Radiation Oncology at [address] [phone] 05/03/2024 1:45 PM EST Scheduled View Only Radiation Oncology at [address] [phone] 05/03/2024 2:15 PM EST Office Visit Radiation Oncology at [address] [phone] Ofe Fonseca MD [facility] [place] [address] 05/05/2024 8:15 AM EST Scheduled View Only Radiation Oncology at [address] [address] 05/06/2024 12:30 PM EST Scheduled View Only Radiation Oncology at [address] [address] 05/09/2024 3:00 PM EST Scheduled View Only Radiation Oncology at [address] [address] 05/10/2024 2:30 PM EST Scheduled View Only Radiation Oncology at [address] [address] 05/10/2024 3:15 PM EST Office Visit Radiation Oncology at [address] [address] Ofe Fonseca MD [facility] [place] [address] 05/11/2024 2:45 PM EST Scheduled View Only Radiation Oncology at [address] [address] 06/03/2024 3:30 PM EST [place] [phone] Mira Hutchison APRN [facility] [place] [address] 06/23/2024 4:00 PM EST Appointment Mammography/[place] [phone] Miryam Feliciano MD [facility] [place] [address] 07/12/2024 8:00 AM EDT Laboratory Appointment Lab [address] [address] 07/12/2024 9:30 AM EDT Office Visit [place] [address] Sharmin Jean-Baptiste, [facility] [place] [address] 07/13/2024 10:30 AM EDT Laboratory Appointment Lab at [facility] Hematology Oncology [address] [place], [place] [phone] 07/13/2024 11:30 AM EDT Office Visit Hematology and Oncology at [place] [phone] Salena Alvares, [facility] [place] [address] 07/13/2024 12:45 PM EDT Appointment Hematology and Oncology at [place] [phone] documented as of this encounter Visit Diagnoses Not on filedocumented in this encounter Care Teams Steel Erector Apprentice Relationship Specialty Start Date [place] [address] PCP - General General Internal Medicine 08/04/22 documented as of this encounter
--- OUTSIDE RECORDS SUMMARY | 2024-04-22 00:25 | XMS_ITS | Encounter Summary ---
[facility] Organization [facility] [place] [address] Care Team Providers Care Handle Attacher Name Role Phone Haylie Steward MD Primary Care Provider + [phone] Encounter Details Date Type Department Care Team (Latest Contact Info) Description 10/01/2022 2:30 PM EDT Office Visit [place] [phone] Sharmin Jean-Baptiste APRN [facility] [place] [address] Stage 3b chronic kidney disease (CKD) Social [...] Sign Reading Time Taken Comments Blood Pressure 122/70 10/01/2022 2:36 PM EDT Pulse 69 10/01/2022 2:36 PM EDT Temperature - - Respiratory Rate - - Oxygen Saturation 100% 10/01/2022 2:36 PM EDT Inhaled Oxygen Concentration - - Weight 56.3 kg (124 lb 3.2 oz) 10/01/2022 2:36 P M EDT Height - - Body Mass Index 22 09/06/2022 10:52 PM EDT documented in this encounter Progress Notes * Sharmin Jean-Baptiste, NETWORKING TECHNICIAN - 10/01/2022 2:30 PM EDT Nephrology/Hypertension Clinic Follow-up Note [id number] ID: 47 y.o.year-old female for follow up of CKD. Past Medical History: Patient Active Problem List Diagnosis Code Stage 3b chronic kidney disease (CKD) N18.32 Hyperparathyroidism E21.3 Anemia D64.9 [place] intoxication, accidental or unintentional, initial encounter T56.891A Abnormal antibody titer R76.0 Benign neoplasm of skin D23.9 Bipolar affective, mixed F31.60 Chronic pansinusitis J32.4 Chronic tonsillitis J35.01 H/O toe surgery Z98.890 Herpes zoster without complication B02.9 Hypothyroidism E03.9 Irritable bowel syndrome K58.9 White coat syndrome without diagnosis of hypertension R03.0 Outpatient Encounter Medications as of 10/01/2022 Medication Sig Dispense Refill clonazePAM (KlonoPIN) 0.5 mg disintegrating tablet Take 0.5 mg by mouth daily as needed. acetaminophen (Tylenol) 500 mg tablet Take 1,000 mg by mouth every 6 hours as needed for Pain. divalproex ER (Depakote ER) 250 mg ER 24 hr tablet 2 tabs BID. 120 tablet 02 ferrous sulfate EC (FeroSul) 325 mg (65 mg iron) DR tablet Take 1 tablet by mouth daily. 30 tablet 3 Alosetron (Lotronex) 0.5 mg tablet Take 0.5 mg by mouth 2 times daily. buPROPion XL (Wellbutrin XL) 150 mg XL 24 hr tablet Take 150 mg by mouth every morning. levothyroxine (Synthroid) 75 mcg tablet Take 75 mcg by mouth every morning. [DISCONTINUED] fluvoxaMINE (Luvox) 100 mg tablet [DISCONTINUED] lamoTRIgine (LaMICtal) 100 mg tablet 1/2 tab AM and PM. (Patient not taking: Reported on 10/01/2022) 30 tablet 2 [DISCONTINUED] divalproex ER (Depakote ER) 250 mg ER 24 hr tablet Take 1 tablet by mouth daily for 3 days, THEN 1 tablet 2 times daily for 30 days. 63 tablet 0 [DISCONTINUED] clonazePAM (KlonoPIN) 0.5 mg tablet Take 0.5 mg by mouth daily as needed. TAKE 1 TABLET BY MOUTH ONCE DAILY NEEDED FOR ANXIETY AND FOR INSOMNIA [DISCONTINUED] lamoTRIgine (LaMICtal) 200 mg tablet Take 200 mg by mouth nightly. [DISCONTINUED] lamoTRIgine (LaMICtal) 100 mg tablet Take 50 mg by mouth every morning. No facility-administered encounter medications on file as of 10/01/2022. Allergies Allergen Reactions Nsaids (Non-Steroidal Anti-Inflammatory Drug) All interfere with lithium All interfere with lithium Tolmetin All interfere with lithium Ibuprofen Other reaction(s): Other, Other (See Comments), Unknown Patient states it affects her bipolar medication [place]. Interim history - Patient was last seen by nephrology on 08/04/22, when at that time her GFR was 48. She was started on amiloride for renal protection in setting of lithium. She was hospitalized 09/06/22- 09/09/22 with elevated lithium level and increase in OCD symptoms. Both amiloride and lithium were stopped and patient was transitioned to Depakote for her bipolar. S: Tolerating Depakote well, however has an increase in dry mouth. Working with her psychiatrist on solution for this side effect. She states she is drinking at least the same amount or more than when she was on lithium. No lightheadedness or dizziness. No SOB. No chest pain/pressure. Appetite good. No N/V/D. Feels sheis urinating more, especially with her increased water intake. No use of NSAIDs. O: Vitals: 10/01/22 1436 BP: 122/70 BP Location (NBP): Left arm Patient Position: Sitting BP Cuff Sizes: Adult (25-34 cm) Pulse: 69 SpO2: 100% Weight: 56.3 kg (124 lb 3.2 oz) General: Arrived ambulatory. Alert, comfortable. Cooperative with [...] Recent Results (from the past 72 hour(s)) Protein/Creatinine Ratio, urine Result Value Ref Range U Creatinine 10 mg/dL U Protein Ran <6 0 - 12 mg/dL Prot/Cre Ratio <0.6 ratio _Urinalysis with microscopic Result Value Ref Range Glucose UA Negative Negative mg/dL Protein UA Negative Negative mg/dL Bilirubin UA Negative Negative mg/dL Urobilinogen UA Normal Normal mg/dL pH UA 7.0 5.0 - 8.0 Blood UA Negative Negative mg/dL Ketones UA Negative Negative mg/dL Nitrite UA Negative Negative Leukocytes UA Negative Negative mcL Appearance UA Clear Clear Spec Mcalester UA 1.006 1.005 - 1.030 Color UA Yellow Yellow RBC UA 1 0 - 4 /HPF WBC UA 1 0 - 5 /HPF Squam Epith UA 1 <=4 /HPF Vitamin D, 25-Hydroxy Result Value Ref Range 25-OH Vit D Total 36 21 - 100 ng/mL 25-OH Vit D Interp Sufficient PTH Result Value Ref Range PTH 125 (H) 15 - 65 pg/mL Phosphorus Result Value Ref Range Phosphorus 4.0 2.5 - 4.5 mg/dL Iron and TIBC Result Value Ref Range Iron 27 (L) 30 - 150 mcg/dL TIBC 429 250 - 450 mcg/dL Iron Saturation 6 (L) 20 - 50 % Ferritin Result Value Ref Range Ferritin 12 (L) 15 - 150 ng/mL Basic Metabolic Panel (non-fasting) Result Value Ref Range Glucose Lvl 75 65 - 199 mg/dL BUN 34 (H) 8 - 18 mg/dL Creatinine 1.14 0.70 - 1.20 mg/dL Sodium 148 (H) 135 - 145 mmol/L Potassium 4.5 3.5 - 5.0 mmol/L Chloride 113 (H) 98 - 107 mmol/L CO2 19 (L) 22 - 31 mmol/L Anion Gap 16 (H) 5 - 15 mmol/L Calcium 10.5 8.5 - 10.5 mg/dL Estimated GFR 59 (L) >=60 mL/min/1.73 m?? Albumin Level Result Value Ref Range Albumin 4.4 3.2 - 5.2 g/dL Hemogram Result Value Ref Range WBC 6.9 4.0 - 9.5 x10(3)/mcL RBC 4.63 4.00 - 5.21 x10(6)/mcL Hemoglobin 11.5 (L) 11.7 - 15.5 g/dL Hematocrit 38.4 35.7 - 45.8 % MCV 82.9 82.6 - 94.4 fL MCH 24.8 (L) 27.1 - 32.0 pg MCHC 29.9 (L) 31.7 - 35.0 g/dL Platelets 287 145 - 357 x10(3)/mcL RDWSD 53.2 (H) 37.0 - 46.0 fL RDWCV 17.6 (H) 11.5 - 14.1 % MPV 9.9 7.6 - 12.9 fL nRBC % Auto 0.0 % nRBC Abs Auto 0.000 0.000 - 0.000 x10(3)/mcL Differential, Automated Result Value Ref Range Neutrophils % 67.1 % Neutr Abs (ANC) 4.65 1.70 - 6.10 x10(3)/mcL Lymphocytes % 24.2 % Lymphocytes Abs 1.7 0.9 - 3.2 x10(3)/mcL Monocytes % 6.3 % Monocyte Abs 0.4 0.3 - 0.9 x10(3)/mcL Eosinophils % 1.9 % Eosinophils Abs 0.1 0.0 - 0.4 x10(3)/mcL Basophils % 0.4 % Basophils Abs 0.0 0.0 - 0.1 x10(3)/mcL Immature Gran % 0.10 % Nessa Gran Abs 0.01 0.00 - 0.04 x10(3)/mcL Studies: INDICATIONS: long-standing lithium use and CKD, requested [...] dedicated pelvic ultrasound for more complete characterization. A/P: 47 y.o.year-old female for CKD related to lithium. CKD Stage 3a with GFR of 59. GFR has increased since lithium has been stopped. 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 Risk factors for worsening renal function reviewed. Discussed importance of good blood pressure control, adequate hydration, and avoidance of NSAIDs.No clinical indication for FIBERGLASS INSULATION INSTALLER. HTN -BP adequately controlled. No history of high blood pressure. Diabetes - Not present. Anemia - No anemia related to chronic disease. Iron stores insufficient. Will increase oral iron totwice daily. If Hgb falls below 10.0, will consider IV iron repletion. KDIGO Hgb goal in CKD is 10.0-11.5g/dL. Ferritin >100ng/dl, TSAT >20% Bone and mineral - PTH is trending down since lithium has been stopped. Since lithium may cause hypercalcemia and elevated PTH, will continue to monitor and trend PTH and calcium rather than treat her elevated PTH. Will check PTH and calcium again in 3 months. Calcium and phos in range. KDIGO PTH goals in CKD: Stage 3 - PTH 35-70pg/ml Stage 4 - PTH 70-110pg/ml Stage 5 - PTH 150-300pg/ml Acid-base - Metabolic acidosis currently present. Will check again in 3 months. If CO2 remains lessthan 22, will start sodium bicarbonate supplement. Electrolytes - Potassium in range. Sodium newly elevated since lithium has been stopped. She reports no decrease in fluid intake. Will recheck in 1 week. Nutrition - Normal albumin suggests adequate protein intake. Transplant/access referral - Not indicated. Return to clinic - Will return in approximately 3 months for follow-up. Patient encouraged to reachout with any questions or concerns. >the total time spent [id number] AND total time the provider spent counseling was 30 minutes. CC: Haylie Steward MD @[email or web address]@ documented in this encounter Plan of Treatment Upcoming Encounters Date Type Department Care Team (Latest Contact Info) Description 04/22/2024 9:45 AM EST Scheduled View Only Radiation Oncology at [address] [phone] 04/25/2024 8:30 AM EST Scheduled View Only Radiation Oncology at [address] [phone] 04/26/2024 3:00 PM EST Scheduled View Only Radiation Oncology at [address] [phone] 04/26/2024 3:30 PM EST Office Visit Radiation Oncology at [address] [phone] Ofe Fonseca MD [facility] [place] [address] 04/28/2024 2:45 PM EST Scheduled View Only Radiation Oncology at [address] [phone] 04/29/2024 3:00 PM EST Scheduled View Only Radiation Oncology at [address] [phone] 05/02/2024 3:45 PM EST Scheduled View Only Radiation Oncology at [address] [phone] 05/03/2024 1:45 PM EST Scheduled View Only Radiation Oncology at [address] [phone] 05/03/2024 2:15 PM EST Office Visit Radiation Oncology at [address] [phone] Ofe Fonseca MD [facility] [place] [address] 05/05/2024 8:15 AM EST Scheduled View Only Radiation Oncology at [address] [phone] 05/06/2024 12:30 PM EST Scheduled View Only Radiation Oncology at [address] [phone] 05/09/2024 3:00 PM EST Scheduled View Only Radiation Oncology at [address] [phone] 05/10/2024 2:30 PM EST Scheduled View Only Radiation Oncology at [address] [phone] 05/10/2024 3:15 PM EST Office Visit Radiation Oncology at [address] [phone] Ofe Fonseca MD [facility] [place] [address] 05/11/2024 2:45 PM EST Scheduled View Only Radiation Oncology at [address] [phone] 06/03/2024 3:30 PM EST Appointment Ultrasound at [place] [phone] Mira Hutchison NETWORKING TECHNICIAN [facility] [place] [address] 06/23/2024 4:00 PM EST Appointment Mammography/DXA at [place] [phone] Miryam Feliciano MD [facility] [place] [place] [address] 07/12/2024 8:00 AM EDT Laboratory Appointment Lab [address] [place] [phone] 07/12/2024 9:30 AM EDT Office Visit Nephrology Hypertension at [place] [phone] Sharmin Jean-Baptiste [facility] [address] 07/13/2024 10:30 AM EDT Laboratory Appointment Lab at [facility] Hematology Oncology [address] [place] [phone] 07/13/2024 11:30 AM EDT Office Visit [place] [phone] Salena Alvares NETWORKING TECHNICIAN [facility] [place] [address] 07/13/2024 12:45 PM EDT Appointment Hematology and Oncology at [facility] [place] [address] documented as of this encounter Procedures Procedure Name Priority Date/Time Associated Diagnosis Comments PTH Routine 10/01/2022 3:06 PM EDT Stage 3b chronic kidney disease (CKD) HEMOGRAM Routine 10/01/2022 3:06 PM EDT Stage 3b chronic kidney disease (CKD) DIFFERENTIAL, AUTOMATED Routine 10/01/2022 3:06 PM EDT Stage 3b chronic kidney disease (CKD) IRON AND TIBC Routine 10/01/2022 3:06 PM EDT Stage 3b chronic kidney disease (CKD) VITAMIN D, 25-HYDROXY Routine 10/01/2022 3:06 PM EDT Stage 3b chronic kidney disease (CKD) CBC (WITH DIFF) Routine 10/01/2022 3:06 PM EDT Stage 3b chronic kidney disease (CKD) PHOSPHORUS Routine 10/01/2022 3:06 PM EDT Stage 3b chronic kidney disease (CKD) FERRITIN Routine 10/01/2022 3:06 PM EDT Stage 3b chronic kidney disease (CKD) ALBUMIN LEVEL Routine 10/01/2022 3:06 PM EDT Stage 3b chronic kidney disease (CKD) BASIC METABOLIC PANEL Routine 10/01/2022 3:06 PM EDT Stage 3b chronic kidney disease (CKD) HC URINALYSIS ROUTINE Routine 10/01/2022 2:30 PM EDT Stage 3b chronic kidney disease (CKD) PROTEIN/CREATININE RATIO, URINE Routine 10/01/2022 2:30 PM EDT Stage 3b chronic kidney disease (CKD) documented in this encounter Results * Differential, Automated (10/01/2022 3:06 PM EDT) Neutrophil % 67.1 % [facility] Neutrophil Absolute 4.65 1.70 - 6.10 x10(3)/[facility] LAB[facility] Lymph % 24.2 % [facility] Lymphocytes Abs 1.7 0.9 - 3.2 x10(3)/[facility] Monocyte % 6.3 % [facility] Monocyte Abs 0.4 0.3 - 0.9 x10(3)/[facility] Eos % 1.9 % [facility] Eosinophils Abs 0.1 0.0 - 0.4 x10(3)/[facility] Basophil % 0.4 % [facility] Baso Absolute 0.0 0.0 - 0.1 x10(3)/[facility] Immature Gran % 0.10 % [facility] Comment: Immature granulocytes(IG's)percentage and absolute count will include metamyelocytes, myelocytes, and promyelocytes. Blood smears from CBCs yielding IG's will be scanned manually for concordance. If this scan disagrees with the automated IG or if promyelocytes are noted, a manual differential will be performed. Immature Gran Absolute 0.01 0.00 - 0.04 x10(3)/[facility] Blood 10/01/2022 3:06 PM EDT 10/01/2022 3:19 PM EDT Narrative Resulting Agency Comment Spec In Lab Sharmin Jean-Baptiste NETWORKING TECHNICIAN HEMATOLOGY ORDERA BLES [facility] [place] [address] * (ABNORMAL) Hemogram (10/01/2022 3:06 PM EDT) White Blood Cell 6.9 4.0 - 9.5 x10(3)/mc L [facility] Red Blood Cell 4.63 4.00 - 5.21 x10(6)/mc L [facility] Hemoglobin 11.5(L) 11.7 - 15.5 g/dL [facility] Hematocrit 38.4 35.7 - 45.8 % [facility] Mean Cell Volume 82.9 82.6 - 94.4 fL [facility] Mean Cell Hemoglobin 24.8(L) 27.1 - 32.0 pg [facility] Mean Cell Hemoglobin Concentration 29.9(L) 31.7 - 35.0 g/dL [facility] Platelet 287 145 - 357 x10(3)/mc L [facility] RDW Standard Deviation 53.2(H) 37.0 - 46.0 fL [facility] RDW coefficient of variation 17.6(H) 11.5 - 14.1 % [facility] Mean Platelet Volume 9.9 7.6 - 12.9 fL [facility] NRBC% auto 0.0 % [facility] NRBC Absolute 0.000 0.000 - 0.000 x10(3)/mc L [facility] Blood 10/01/2022 3:06 PM EDT 10/01/2022 3:19 PM EDT Narrative Resulting Agency Comment Spec In Lab Sharmin L Estiven NETWORKING TECHNICIAN HEMATOLOGY ORDERA BLES [facility] [place] [address] * Vitamin D, 25-Hydroxy (10/01/2022 3:06 PM EDT) Vitamin D Total 25 OH 36 21 - 100 ng/mL [facility] Vit D Interp Sufficient [facility] Blood 10/01/2022 3:06 PM EDT 10/01/2022 3:19 PM EDT Narrative Resulting Agency Comment Spec In Lab Sharmin L Estiven NETWORKING TECHNICIAN CHEMISTRY ORDERAB LES Performing Organization Address City/[facility]/ZIP Co de Phone Number [facility] [place] [address] * (ABNORMAL) PTH (10/01/2022 3:06 PM EDT) Parathyroid Hormone 125(H) 15 - 65 pg/mL [facility] Blood 10/01/2022 3:06 PM EDT 10/01/2022 3:19 PM EDT Narrative Resulting Agency Comment Spec In Lab Sharmin L Estiven NETWORKING TECHNICIAN CHEMISTRY ORDERAB LES Performing Organization Address City/[facility]/ZIP Co de Phone Number [facility] [place] [address] * Phosphorus (10/01/2022 3:06 PM EDT) Phosphorus 4.0 2.5 - 4.5 mg/dL [facility] Blood 10/01/2022 3:06 PM EDT 10/01/2022 3:19 PM EDT Narrative Resulting Agency Comment Spec In Lab Sharmin L Estiven NETWORKING TECHNICIAN CHEMISTRY ORDERAB LES Performing Organization Address City/[facility] Co de Phone Number [facility] [place] [address] * (ABNORMAL) Iron and TIBC (10/01/2022 3:06 PM EDT) Iron 27(L) 30 - 150 mcg/dL [facility] TIBC 429 250 - 450 mcg/dL [facility] Iron Saturation 6(L) 20 - 50 % [facility] Blood 10/01/2022 3:06 PM EDT 10/01/2022 3:19 PM EDT Narrative Resulting Agency Comment Spec In Lab Sharmin L Estiven NETWORKING TECHNICIAN CHEMISTRY ORDERAB LES Performing Organization Address City/[facility]/ZIP Co de Phone Number [facility] [place] [address] * (ABNORMAL) Ferritin (10/01/2022 3:06 PM EDT) Ferritin 12(L) 15 - 150 ng/mL [facility] Comment: Pediatric reference ranges not verified at [facility], interpret with caution. Reference ranges for females greater than 50 years of age approach values for men, i.e., 30-400 ng/mL. Blood 10/01/2022 3:06 PM EDT 10/01/2022 3:19 PM EDT Narrative Resulting Agency Comment Spec In Lab Sharmin Jean-Baptiste NETWORKING TECHNICIAN CHEMISTRY ORDERAB LES [facility] [place] [address] * (ABNORMAL) Basic Metabolic Panel (non-fasting) (10/01/2022 3:06 PM EDT) Glucose 75 65 - 199 mg/dL [facility] Comment:Diabetes: >=200 mg/d L plus symptoms Blood Urea Nitrogen 34(H) 8 - 18 mg/dL [facility] Creatinine 1.14 0.70 - 1.20 mg/dL [facility] Sodium 148(H) 135 - 145 mmol/L [facility] Potassium 4.5 3.5 - 5.0 mmol/L [facility] Comment: Please note: ??Patients with WBC >100,000 may have falsely elevated Potassium levels. ??For accurate Potassium quantification in these patients send serum separator tube (gold top) for subsequent determinations. ??Contact the Clinical Chemistry Laboratory if there are any questions. Chloride 113(H) 98 - 107 mmol/L [facility] Carbon Dioxide 19(L) 22 - 31 mmol/L [facility] Anion Gap 16(H) 5 - 15 mmol/L [facility] Calcium 10.5 8.5 - 10.5 mg/dL [facility] Est Glomerular Filtration Rate 59(L) >=60 mL/min/1. 73 m?? [facility] Comment: This patient's estimated GFR [...] and symptoms in addition to eGFR. Blood 10/01/2022 3:06 PM EDT 10/01/2022 3:19 PM EDT Narrative Resulting Agency Comment Spec In Lab Sharmin Jean-Baptiste NETWORKING TECHNICIAN CHEMISTRY ORDERAB LES Performing Organization Address City/[facility]/ZIP Co de Phone Number [facility] [place] [address] * Albumin Level (10/01/2022 3:06 PM EDT) Albumin 4.4 3.2 - 5.2 g/dL [facility] Blood 10/01/2022 3:06 PM EDT 10/01/2022 3:19 PM EDT Narrative Resulting Agency Comment Spec In Lab Sharmin Jean-Bpatiste NETWORKING TECHNICIAN CHEMISTRY ORDERAB LES Performing Organization Address [facility] Co de Phone Number [facility] [place] [address] * Protein/Creatinine Ratio, urine (10/01/2022 2:30 PM EDT) Creatinine, Urine 10 mg/dL [facility] Protein, Urine <6 0 - 12 mg/dL [facility] Protein / Creatinine Ratio, Urine <0.6 ratio [facility] Urine 10/01/2022 2:30 PM EDT 10/01/2022 3:47 PM EDT Narrative Resulting Agency Comment Spec In Lab Sharmin Jean-Baptiste NETWORKING TECHNICIAN URINE ORDERABLES Performing Organization Address [facility] Co de Phone Number [facility] [place] [address] * _Urinalysis with microscopic (10/01/2022 2:30 PM EDT) Glucose, Urine Dipstick Negative Negative mg/dL [facility] Protein, Urine Dipstick Negative Negative mg/dL [facility] Bilirubin, Urine Dipstick Negative Negative mg/dL [facility] Comment: Clinical correlation required for positive Urine Bilirubin results as false positive may occur with some drugs and drug related products. If a false positive is suspected a serum total bilirubin should be considered if clinically indicated. Urobilinogen, Urine Dipstick Normal Normal mg/dL [facility] pH, Urn (dipstick) 7.0 5.0 - 8.0 [facility] Blood, Urine Dipstick Negative Negative mg/dL [facility] Ketone, Urine Dipstick Negative Negative mg/dL [facility] Nitrite, Urine Dipstick Negative Negative [facility] Leukocytes, Urine Dipstick Negative Negative mcL [facility] Appearance, Urine Dipstick Clear Clear [facility] Specific Mcalester Urine Automated 1.006 1.005 - 1.030 [facility] Color, Urine Dipstick Yellow Yellow [facility] RBC, Urine 1 0 - 4 /HPF [facility] WBC, Urine 1 0 - 5 /HPF [facility] Squamous Epithelial Cells Raw Data, Urine 1 <=4 /HPF [facility] Urine 10/01/2022 2:30 PM EDT 10/01/2022 3:47 PM EDT Narrative Resulting Agency Comment Spec In Lab Sharmin Jean-Baptiste NETWORKING TECHNICIAN URINE ORDERABLES [facility] [address] documented in this encounter Visit Diagnoses Diagnosis Stage 3b chronic kidney disease (CKD) documented in this encounter Care Teams Handle Attacher Relationship Specialty Start Date End Date Haylie Steward MD [facility] [place] [address] PCP - General General Internal Medicine 08/04/22 documented as of this encounter
--- OUTSIDE RECORDS SUMMARY | 2024-04-22 00:25 | XMS_ITS | Encounter Summary ---
Author Organization [facility] [place] [address] Care Team Providers Care Specimen Collector Name Role Phone Haylie Steward MD Primary Care Provider + [phone] Encounter Details Date Type Department Care Team (Late st Contact Info) Description 12/15/2022 Orders Only [place] [phone] Betina Varma, CURB SETTER [facility] [address] Social History Tobacco Use Types Packs/Day Years Used Date Smoking Tobacco: Never Smokeless Tobacco: Never Alcohol Use Standard Drinks/Week Comments Not Currently 0 (1 standard drink = 0.6 oz pur e alcohol) [facility] Inpatient Questions Answer Date Recorded Does Anyone [...] Scheduled View Only Radiation Oncology at [address] [address] 04/25/2024 8:30 AM EST Scheduled View Only Radiation Oncology at [address] [address] 04/26/2024 3:00 PM EST Scheduled View Only Radiation Oncology at [address] [address] 04/26/2024 3:30 PM EST Office Visit Radiation Oncology at [address] [address] Ofe Fonseca MD [facility] [place] [address] 04/28/2024 2:45 PM EST Scheduled View Only Radiation Oncology at [address] [address] 04/29/2024 3:00 PM EST Scheduled View Only Radiation Oncology at [address] [address] 05/02/2024 3:45 PM EST Scheduled View Only Radiation Oncology at [address] [address] 05/03/2024 1:45 PM EST Scheduled View Only Radiation Oncology at [address] [address] 05/03/2024 2:15 PM EST Office Visit Radiation Oncology at [address] [address] Ofe Fonseca MD [facility] RAD[place] [address] 05/05/2024 8:15 AM EST Scheduled View Only Radiation Oncology at [address] [address] 05/06/2024 12:30 PM EST Scheduled View Only Radiation Oncology at [address] [address] 05/09/2024 3:00 PM EST Scheduled View Only Radiation Oncology at [address] [address] 05/10/2024 2:30 PM EST Scheduled View Only Radiation Oncology at [address] [address] 05/10/2024 3:15 PM EST Office Visit Radiation Oncology at [address] [address] Ofe Fonseca MD [facility] [place] [address] 05/11/2024 2:45 PM EST Scheduled View Only Radiation Oncology at [address] [address] 06/03/2024 3:30 PM EST Appointment Ultrasound at [place] [phone] Mira Hutchison [facility] [place] [address] 06/23/2024 4:00 PM EST Appointment Mammography/DXA at [place] [phone] Miryam Feliciano MD [facility] [place] [address] 07/12/2024 8:00 AM EDT Laboratory Appointment Lab [place] [phone] 07/12/2024 9:30 AM EDT Office Visit Nephrology Hypertension at [place] [phone] Sharmin Jean-Baptiste CURB SETTER [facility] [place] [address] 07/13/2024 10:30 AM EDT Laboratory Appointment Lab at [facility] Hematology Oncology [address] [place] [phone] 07/13/2024 11:30 AM EDT Office Visit Hematology [place] [phone] Salena Alvares APRN [facility] DR MEDICAL ONCOLOGY [place] [phone] 07/13/2024 12:45 PM EDT Appointment Hematology [place] [phone] documented as of this encounter Procedures Procedure Name Priority Date/Time Associated Diagnosis Comments QUANTIFERON-TB GOLD Routine 12/15/2022 4 :56 PM EDT documented in this encounter Results * QuantiFERON-TB Gold (12/15/2022 4:56 PM EDT) Quantiferon Nil 0.000 IU/mL [facility] QFT TB Ag1-Nil 0.018 IU/mL [facility] QFT TB Ag2-Nil 0.009 IU/mL [facility] Quantiferon Mitogen-Nil 10.000 IU/mL [facility] Quantiferon-TB Gold Negative Negative [facility] Quantiferon Tb Interp M. tuberculosis infection NOT likely A negative specimen should have a TB1 Ag minus Nil value and TB2 Ag minus Nil value of less than 0.35 IU/mL OR a TB1 Ag minus Nil or TB2 Ag minus Nil value greater than or equal to 0.35 IU/mL AND a TB Ag minus Nil value from the same tube of less than 25% of the Nil value. A negative specimen must also have a mitogen minus Nil value greater than or equal to 0.5 IU/mL. A negative QFT-Plus result does not preclude the possibility of M. tuberculosis infection. False negative results can occur due to stage of infection (specimen obtained prior to the development of immune response), co-morbid conditions which affect immune function, or other immunological factors. [facility] Blood Venous Draw / Unknown 12/15/2022 4:56 PM EDT 12/16/2022 2:08 PM EDT Narrative Resulting Agency Comment Spec In Lab Betinashay Varma CURB SETTER CHEMISTRY ORDERABLES [facility] [address] documented in this encounter Visit Diagnoses Not on filedocumented in this encounter Care Teams Specimen Collector Relationship Specialty Start Date End Date Haylie Steward MD [facility] [place] [address] PCP - General General Internal Medicine 08/04/22 documented as of this encounter
--- OUTSIDE RECORDS SUMMARY | 2024-04-22 00:25 | XMS_ITS | Encounter Summary ---
Author Organization [facility] [place] [address] Care Team Providers Care Instrument Mechanics Supervisor Name Role Phone Haylie Steward MD Primary Care Provider + [phone] Encounter Details Date Type Department Care Team (Late st Contact Info) Description 12/15/2022 Orders [place] [phone] Betina Varma, YARN WRAPPER [facility] [place] [address] Social History Tobacco Use Types Packs/Day Years Used Date Smoking Tobacco: Never Smokeless Tobacco: Never Alcohol Use Standard Drinks/Week Comments Not Currently 0 (1 standard drink = 0.6 oz pur e alcohol) [facility] Inpatient Questions Answer Date Recorded Does [...] Scheduled View Only Radiation Oncology at [address] [address] 04/25/2024 8:30 AM EST Scheduled View Only Radiation Oncology at [address] [address] 04/26/2024 3:00 PM EST Scheduled View Only Radiation Oncology at [address] [address] 04/26/2024 3:30 PM EST Office Visit Radiation Oncology at [address] [address] Ofe Fonseca MD [facility] [place] [address] 04/28/2024 2:45 PM EST Scheduled View Only Radiation Oncology at [address] [address] 04/29/2024 3:00 PM EST Scheduled View Only Radiation Oncology at [address] [address] 05/02/2024 3:45 PM EST Scheduled View Only Radiation Oncology at [address] [address] 05/03/2024 1:45 PM EST Scheduled View Only Radiation Oncology at [address] [address] 05/03/2024 2:15 PM EST Office Visit Radiation Oncology at [address] [address] Ofe Fonseca MD [facility] RADI[place] [address] 05/05/2024 8:15 AM EST Scheduled View Only Radiation Oncology at [address] [address] 05/06/2024 12:30 PM EST Scheduled View Only Radiation Oncology at [address] [address] 05/09/2024 3:00 PM EST Scheduled View Only Radiation Oncology at [address] [address] 05/10/2024 2:30 PM EST Scheduled View Only Radiation Oncology at [address] [address] 05/10/2024 3:15 PM EST Office Visit Radiation Oncology at [address] [address] Ofe Fonseca MD [facility] [place] [address] 05/11/2024 2:45 PM EST Scheduled View Only Radiation Oncology at [address] [address] 06/03/2024 3:30 PM EST Appointment Ultrasound at [place] [phone] Mira Hutchison [facility] [place] [address] 06/23/2024 4:00 PM EST Appointment Mammography/DXA at [place] [phone] Miryam Feliciano MD [facility] [place] [address] 07/12/2024 8:00 AM EDT Laboratory Appointment Lab [address] [phone] 07/12/2024 9:30 AM EDT Office Visit Nephrology Hypertension at [place] [phone] Sharmin Jean-Baptiste YARN WRAPPER [facility] [place] [address] 07/13/2024 10:30 AM EDT Laboratory Appointment Lab at [facility] Hematology Oncology [address] [place] [address] 07/13/2024 11:30 AM EDT Office Visit Hematology [place] [phone] Salena Alvares APRN [facility] [place] [address] 07/13/2024 12:45 PM EDT Appointment Hematology [place] [phone] documented as of this encounter Procedures Procedure Name Priority Date/Time Associated Diagnosis Comments RUBELLA ANTIBODY, IGG Routine 12/15/2022 4:56 PM EDT documented in this encounter Results * Rubella Antibody, IgG (12/15/2022 4:56 PM EDT) Rubella Antibody IgG Positive Positive [facility] Comment: Please note: ??A positive result for this assay indicates that antibody levels are >or= 10.0 IU/mL and is considered to be an indicator of positive immune status. Blood Venous Draw / Unknown 12/15/2022 4:56 PM EDT 12/15/2022 5:20 PM EDT Narrative Resulting Agency Comment Spec In Lab Betina Varma YARN WRAPPER CHEMISTRY ORDERABLES [facility] [place] [address] documented in this encounter Visit Diagnoses Not on filedocumented in this encounter Care Teams Instrument Mechanics Supervisor Relationship Specialty Start Date End Date Hay[place] [address] [place] [address] PCP - General General Internal Medicine 08/04/22 documented as of this encounter
--- OUTSIDE RECORDS SUMMARY | 2024-04-22 00:25 | XMS_ITS | Encounter Summary ---
[place] [address] Care Team Providers Care Front Loader Residential Driver Name Role Phone Haylie Steward MD Primary Care Provider [phone] Encounter Details Date Type Department Care Team (Latest Contact Info) Description 09/26/2022 8:55 AM EDT Laboratory Appointment Lab [address] [place] [phone] Bipolar 1 disorder Social History Tobacco Use [...] Scheduled View Only Radiation Oncology at [address] [address] 04/25/2024 8:30 AM EST Scheduled View Only Radiation Oncology at [address] [address] 04/26/2024 3:00 PM EST Scheduled View Only Radiation Oncology at [address] [address] 04/26/2024 3:30 PM EST Office Visit Radiation Oncology at [address] [address] Oef Fonseca MD [facility] [place] [address] 04/28/2024 2:45 PM EST Scheduled View Only Radiation Oncology at [address] [address] 04/29/2024 3:00 PM EST Scheduled View Only Radiation Oncology at [address] [address] 05/02/2024 3:45 PM EST Scheduled View Only Radiation Oncology at [address] [address] 05/03/2024 1:45 PM EST Scheduled View Only Radiation Oncology at [address] [address] 05/03/2024 2:15 PM EST Office Visit Radiation Oncology at [address] [address] Ofe Fonseca MD [facility] [place] [address] 05/05/2024 8:15 AM EST Scheduled View Only Radiation Oncology at [address] [address] 05/06/2024 12:30 PM EST Scheduled View Only Radiation Oncology at [address] [address] 05/09/2024 3:00 PM EST Scheduled View Only Radiation Oncology at [address] [address] 05/10/2024 2:30 PM EST Scheduled View Only Radiation Oncology at [address] [address] 05/10/2024 3:15 PM EST Office Visit Radiation Oncology at [address] [address] Ofe Fonseca MD [facility] [place] [address] 05/11/2024 2:45 PM EST Scheduled View Only Radiation Oncology at [address] [address] 06/03/2024 3:30 PM EST Appointment Ultrasound at [place] [phone] Mira Hutchison, [facility] [address] 06/23/2024 4:00 PM EST Appointment Mammography/DXA at [place] [phone] Miryam Feliciano MD [facility] [address] 07/12/2024 8:00 AM EDT Laboratory Appointment Lab [address] [place] [phone] 07/12/2024 9:30 AM EDT Office Visit Neph[place] [phone] Sharmin Jean-Baptiste [facility] [place] [address] 07/13/2024 10:30 AM EDT Laboratory Appointment Lab at [facility] Hematology Oncology [address] [place] [phone] 07/13/2024 11:30 AM EDT Office Visit Hematology [place] [phone] Salena Alvares APRN [facility] [place] [address] 07/13/2024 12:45 PM EDT Appointment Hematology [place] [phone] documented as of this encounter Procedures Procedure Name Priority Date/Time Associated Diagnosis Comments LAMOTRIGINE LVL Routine 09/26/2022 8:44 AM EDT Bipolar 1 disorder VALPROIC ACID LEVEL, TOTAL Routine 09/26/2022 8:44 AM EDT Bipolar 1 disorder HEPATIC FUNCTION PANEL Routine 09/26/2022 8:44 AM EDT Bipolar 1 disorder documented in this encounter Results * Lamotrigine Lvl (09/26/2022 8:44 AM EDT) [facility] Lamotrigine Lvl (SEPTEMBER) 5.8 3.0 - 15.0 mcg/mL [facility] Comment: ADDITIONAL INFORMATION This test was developed and its performance characteristics determined by [facility] in a manner consistent with CLIA requirements. This test has not been cleared or approved by the U.S. Food and Drug Administration. Test Performed by: [facility] - [address] [address] Almond Grinder: Owen Zurita M.D. Ph.D.; CLIA# [id number] Blood 09/26/2022 8:44 AM EDT 09/26/2022 1:45 PM EDT Narrative Resulting Agency Comment Spec In Lab Michelet Monge MD LAB SEND OUT ORDERAB LES Performing Organization Address City/[facility] Co de Phone Number [facility] [place] [address] * Valproic Acid Level, Total (09/26/2022 8:44 AM EDT) Valproic Acid 62 mg/L [facility] Comment: Therapeutic Range: Anticonvulsant Therapy: ??50-100 mg/L Manic Episodes Associated with Bipolar Disorder: ??50-125 mg/L Blood 09/26/2022 8:44 AM EDT 09/26/2022 8:49 AM EDT Narrative Resulting Agency Comment Spec In Lab Michelet Monge MD CHEMISTRY ORDERABLES Performing Organization Address [facility] Co de Phone Number [facility] [place] [address] * (ABNORMAL) Hepatic Function Panel (09/26/2022 8:44 AM EDT) Pathologist [facility] Protein, Total 6.8 6.1 - 8.0 g/dL [facility] Albumin 4.2 3.2 - 5.2 g/dL [facility] Aspartate Aminotransferase 12 0 - 30 unit/L [facility] Alanine Aminotransferase 13 0 - 30 unit/L [facility] Alkaline Phosphatase 99 35 - 105 unit/L [facility] Bilirubin, Total <0.2(L) 0.2 - 1.3 mg/dL [facility] Bilirubin, Direct <0.1 0.0 - 0.3 mg/dL [facility] Blood 09/26/2022 8:44 AM EDT 09/26/2022 8:49 AM EDT Narrative Resulting Agency Comment Spec In Lab Michelet Monge MD CHEMISTRY ORDERABLES Performing Organization Address [facility] Co de Phone Number [facility] [place] [place] [address] documented in this encounter Visit Diagnoses Diagnosis Bipolar 1 disorder Bipolar I disorder, most recent episode (or current) unspecified documented in this encounter Care Teams Front Loader Residential Driver Relationship Specialty Start Date End Date Haylie Steward MD [facility] [address] PCP - General General Internal Medicine 08/04/22 documented as of this encounter
--- OUTSIDE RECORDS SUMMARY | 2024-04-22 00:25 | XMS_ITS | Encounter Summary ---
Author Organization [facility] [place] [address] Care Team Providers Care Playground Official Name Role Phone Haylie Steward MD Primary Care Provider + [phone] Reason for Visit * Reason Onset Date Comments Medication Refill 12/05/2022 Encounter Details Date Type Department Care Team (Late st Contact Info) Description 12/05/2022 Refill Nephrology [place] [address] Sharmin Jean-Baptiste, [facility] [place] [address] Social History Tobacco Use Types Packs/Day Years Used Date Smoking Tobacco: Never Smokeless Tobacco: Never Alcohol Use Standard Drinks/Week Comments Not Currently 0 (1 standard drink = 0.6 oz pur e alcohol) [facility] Inpatient Questions Answer Date [...] Scheduled View Only Radiation Oncology at [address] [address] 04/25/2024 8:30 AM EST Scheduled View Only Radiation Oncology at [address] [address] 04/26/2024 3:00 PM EST Scheduled View Only Radiation Oncology at [address] [address] 04/26/2024 3:30 PM EST Office Visit Radiation Oncology at [address] [phone] Ofe Fonseca MD [facility] [place] [address] 04/28/2024 2:45 PM EST Scheduled View Only Radiation Oncology at [address] [address] 04/29/2024 3:00 PM EST Scheduled View Only Radiation Oncology at [address] [address] 05/02/2024 3:45 PM EST Scheduled View Only Radiation Oncology at [address] [address] 05/03/2024 1:45 PM EST Scheduled View Only Radiation Oncology at [address] [address] 05/03/2024 2:15 PM EST Office Visit Radiation Oncology at [address] [address] Ofe Fonseca MD [facility] [place] [address] 05/05/2024 8:15 AM EST Scheduled View Only Radiation Oncology at [address] [address] 05/06/2024 12:30 PM EST Scheduled View Only Radiation Oncology at [address] [address] 05/09/2024 3:00 PM EST Scheduled View Only Radiation Oncology at [address] [address] 05/10/2024 2:30 PM EST Scheduled View Only Radiation Oncology at [address] [address] 05/10/2024 3:15 PM EST Office Visit Radiation Oncology at [address] [phone] Ofe Fonseca MD [facility] [address] 05/11/2024 2:45 PM EST Scheduled View Only Radiation Oncology at [address] [address] 06/03/2024 3:30 PM EST Appointment Ultrasound at [place] [phone] Mira Hutchison PHARMACEUTICAL SALES SPECIALIST [facility] [address] 06/23/2024 4:00 PM EST Appointment Mammography/DXA at [place] [phone] Miryam Feliciano MD [facility] [place] [address] 07/12/2024 8:00 AM EDT Laboratory Appointment Lab [address] [phone] 07/12/2024 9:30 AM EDT Office Visit Nephrology Hypertension at [place] [phone] Sharmin Jean-Baptiste [place] [address] 07/13/2024 10:30 AM EDT Laboratory Appointment Lab at [facility] Hematology Oncology [address] [place] [phone] 07/13/2024 11:30 AM EDT Office Visit Hematology [place] [phone] Salena Alvares APRN [facility] [place] [address] 07/13/2024 12:45 PM EDT Appointment Hematology and Oncology at [place] [phone] documented as of this encounter Visit Diagnoses Not on filedocumented in this encounter Care Teams Playground Official Relationship Specialty Start Date End [place] [address] PCP - General General Internal Medicine 08/04/22 documented as of this encounter
--- OUTSIDE RECORDS SUMMARY | 2024-04-22 00:25 | XMS_ITS | Encounter Summary ---
Author [place] [address] Care Team Providers Care Cotton Dispatcher Name Role Phone Haylie Steward MD Primary Care Provider + [phone] Reason for Referral * Consultation (Urgent) - Closed Specialty Diagnoses / Procedures Referred By Contac t Referred To Contact Gastroenterology Diagnoses Irritable bowel syndrome, unspecified type Haylie Steward MD [facility] [place] [address] [facility] [place] [address] Referral ID Status Reason Start Date Expiration Date V isits Requested Visits Authorized [id number] Closed Consult, Test & Treat PCP Updated and/or Approved 12/17/2022 12/18/2023 12 12 Encounter Details Date Type Department Care Team (Late st Contact Info) Description 12/18/2022 Transcribe Orders eDH Incoming Referrals [phone] Haylie Steward MD [facility] [place] [address] Irritable bowel syndrome, unspecified type Social History Tobacco Use Types [...] Scheduled View Only Radiation Oncology at [address] [address] 04/25/2024 8:30 AM EST Scheduled View Only Radiation Oncology at [address] [address] 04/26/2024 3:00 PM EST Scheduled View Only Radiation Oncology at [address] [address] 04/26/2024 3:30 PM EST Office Visit Radiation Oncology at [address] [address] Ofe Fonseca MD [facility] [place] [address] 04/28/2024 2:45 PM EST Scheduled View Only Radiation Oncology at [address] [address] 04/29/2024 3:00 PM EST Scheduled View Only Radiation Oncology at [address] [address] 05/02/2024 3:45 PM EST Scheduled View Only Radiation Oncology at [address] [address] 05/03/2024 1:45 PM EST Scheduled View Only Radiation Oncology at [address] [address] 05/03/2024 2:15 PM EST Office Visit Radiation Oncology at [address] [address] Ofe Fonseca MD [facility] RADIATION [place] [address] 05/05/2024 8:15 AM EST Scheduled View Only Radiation Oncology at [address] [address] 05/06/2024 12:30 PM EST Scheduled View Only Radiation Oncology at [address] [address] 05/09/2024 3:00 PM EST Scheduled View Only Radiation Oncology at [address] [address] 05/10/2024 2:30 PM EST Scheduled View Only Radiation Oncology at [address] [address] 05/10/2024 3:15 PM EST Office Visit Radiation Oncology at [address] [address] Ofe Fonseca MD [facility] [address] 05/11/2024 2:45 PM EST Scheduled View Only Radiation Oncology at [address] [address] 06/03/2024 3:30 PM EST [place] [address] Mira Hutchison APRN [facility] [place] [address] 06/23/2024 4:00 PM EST Appointment Mammography/[place] [address] Miryam Feliciano MD [facility] [place] [address] 07/12/2024 8:00 AM EDT Laboratory Appointment Lab [address] [phone] 07/12/2024 9:30 AM EDT Office Visit Nephrology Hypertension at [place] [phone] Sharmin Jean-Baptiste, [facility] [place] [address] 07/13/2024 10:30 AM EDT Laboratory Appointment Lab at [facility] Hematology Oncology [address] [place], [place] [phone] 07/13/2024 11:30 AM EDT Office Visit Hematology and Oncology at [place] [phone] Salena Alvares, [facility] [place] [address] 07/13/2024 12:45 PM EDT Appointment Hematology and Oncology at [place] [phone] Scheduled Referrals Name Type Priority Associated Diagnoses Order Schedule Referral to Gastroenterology Outpatient Referral Urgent Irritable bowel syndrome, unspecified type Ordered: 12/18/2022 documented as of this encounter Visit Diagnoses Diagnosis Irritable bowel syndrome, unspecified type documented in this encounter Care Teams Cotton Dispatcher Relationship Specialty Start Date [place] [address] PCP - General General Internal Medicine 08/04/22 documented as of this encounter
--- OUTSIDE RECORDS SUMMARY | 2024-04-22 00:25 | XMS_ITS | Encounter Summary ---
Author Organization [facility] [place] [address] Care Team Providers Care Teaching Artist Name Role Phone Haylie Steward MD Primary Care Provider + [phone] Encounter Details Date Type Department Care Team (Late st Contact Info) Description 09/17/2022 [place] [phone] Ольга Bazzi RN Social History Tobacco Use Types Packs/Day Years Used Date Smoking Tobacco: Never Smokeless Tobacco: Never Alcohol Use Standard Drinks/Week Comments Not Currently 0 (1 standard drink = 0.6 oz pur e alcohol) [facility] Inpatient Questions Answer Date Recorded [...] Encounter - Ольга Bazzi RN - 09/17/2022 12:14 PM EDT I returned the pt's call. She had questions regarding her appointment with Mira Hutchison APRN yesterday. I reviewed Mira's note and discussed that urinary incontinence likely was overflow incontinence. I explained what overflow incontinence means. Reviewed behavioral therapies with patient including timed and double voiding, moderation of bladder irritants, and decreasing stress. Copied from [facility] #[id number]. Topic: Specialty Dept CRMs - Generic Call >> September 17, 2022 12:02 PM Chuck Waddell wrote: Specialist: Mira Hutchison MD Relationship self Patient Reason for Call: Patient is returning a phone call to the nurse's station for a callback. In regards to Patient states was seen yesterday for Urinary Incontinence but wants to know what she thinks has caused that? documented in this encounter Plan of Treatment Upcoming Encounters Date Type Department Care Team (Latest Contact Info) Description 04/22/2024 9:45 AM EST Scheduled View Only Radiation Oncology at [address] [address] 04/25/2024 8:30 AM EST Scheduled View Only Radiation Oncology at [address] [address] 04/26/2024 3:00 PM EST Scheduled View Only Radiation Oncology at [address] [address] 04/26/2024 3:30 PM EST Office Visit Radiation Oncology at [address] [address] Ofe Fonseca MD [facility] [place] [address] 04/28/2024 2:45 PM EST Scheduled View Only Radiation Oncology at [address] [address] 04/29/2024 3:00 PM EST Scheduled View Only Radiation Oncology at [address] [address] 05/02/2024 3:45 PM EST Scheduled View Only Radiation Oncology at [address] [address] 05/03/2024 1:45 PM EST Scheduled View Only Radiation Oncology at [address] [address] 05/03/2024 2:15 PM EST Office Visit Radiation Oncology at [address] [address] Ofe Fonseca MD [facility] [place] [address] 05/05/2024 8:15 AM EST Scheduled View Only Radiation Oncology at [address] [address] 05/06/2024 12:30 PM EST Scheduled View Only Radiation Oncology at [address] [address] 05/09/2024 3:00 PM EST Scheduled View Only Radiation Oncology at [address] [address] 05/10/2024 2:30 PM EST Scheduled View Only Radiation Oncology at [address] [address] 05/10/2024 3:15 PM EST Office Visit Radiation Oncology at [address] [address] Ofe Fonseca MD [facility] [place] [address] 05/11/2024 2:45 PM EST Scheduled View Only Radiation Oncology at [address] [address] 06/03/2024 3:30 PM [place] [address] Mira Hutchison APRN [facility] [place] [address] 06/23/2024 4:00 PM EST Appointment Mammography/DXA at [place] [address] Miryam Feliciano MD [facility] [place] [address] 07/12/2024 8:00 AM EDT Laboratory Appointment Lab [address] [place] [address] 07/12/2024 9:30 AM EDT Office Visit Nephrology Hypertension at [place] [address] Sharmin Jean-Baptiste, [facility] [place] [address] 07/13/2024 10:30 AM EDT Laboratory Appointment Lab at [facility] Hematology Oncology [address] [place] [address] 07/13/2024 11:30 AM EDT Office Visit Hematology and Oncology at [place] [address] Salena Alvares, [facility] [place] [address] 07/13/2024 12:45 PM EDT Appointment Hematology and Oncology at [place] [address] documented as of this encounter Visit Diagnoses Not on filedocumented in this encounter Care Teams Teaching Artist Relationship Specialty Start Date End Date Haylie Steward MD [facility] [place] [address] PCP - General General Internal Medicine 08/04/22 documented as of this encounter
--- OUTSIDE RECORDS SUMMARY | 2024-04-22 00:25 | XMS_ITS | Encounter Summary ---
Author Organization [facility] [place] [address] Care Team Providers Care Irrigation Laborer Name Role Phone Haylie Steward MD Primary Care Provider [phone] Encounter Details Date Type Department Care Team (Latest Contact Info) Description 10/01/2022 Travel Social History Tobacco Use Types Packs/Day [...] EST Scheduled View Only Radiation Oncology at [address] [address] 04/25/2024 8:30 AM EST Scheduled View Only Radiation Oncology at [address] [address] 04/26/2024 3:00 PM EST Scheduled View Only Radiation Oncology at [address] [address] 04/26/2024 3:30 PM EST Office Visit Radiation Oncology at [address] [address] Ofe Fonseca MD [facility] [place] [address] 04/28/2024 2:45 PM EST Scheduled View Only Radiation Oncology at [address] [address] 04/29/2024 3:00 PM EST Scheduled View Only Radiation Oncology at [address] [address] 05/02/2024 3:45 PM EST Scheduled View Only Radiation Oncology at [address] [address] 05/03/2024 1:45 PM EST Scheduled View Only Radiation Oncology at [address] [address] 05/03/2024 2:15 PM EST Office Visit Radiation Oncology at [address] [address] Ofe Fonseca MD [facility] [place] [address] 05/05/2024 8:15 AM EST Scheduled View Only Radiation Oncology at [address] [address] 05/06/2024 12:30 PM EST Scheduled View Only Radiation Oncology at [address] [address] 05/09/2024 3:00 PM EST Scheduled View Only Radiation Oncology at [address] [address] 05/10/2024 2:30 PM EST Scheduled View Only Radiation Oncology at [address] [address] 05/10/2024 3:15 PM EST Office Visit Radiation Oncology at [address] [phone] Ofe Fonseca MD [facility] [place] [address] 05/11/2024 2:45 PM EST Scheduled View Only Radiation Oncology at [address] [phone] 06/03/2024 3:30 PM EST Appointment [place] [phone] Mira Hutchison, [facility] [place] [address] 06/23/2024 4:00 PM EST Appointment Mammography/[place] [phone] Miryam Feliciano MD [facility] [place] [address] 07/12/2024 8:00 AM EDT Laboratory Appointment Lab [address] [place] [phone] 07/12/2024 9:30 AM EDT Office Visit Nephrology [place] [phone] Sharmin Jean-Baptiste [facility] [address] 07/13/2024 10:30 AM EDT Laboratory Appointment Lab at [facility] Hematology Oncology [address] [place] [address] 07/13/2024 11:30 AM EDT Office Visit Hematology [place] [address] Salena Alvares APRN [facility] [place] [address] 07/13/2024 12:45 PM EDT Appointment Hematology [place] [phone] documented as of this encounter Visit Diagnoses Not on filedocumented in this encounter Care Teams Irrigation Laborer Relationship Specialty Start Date [place] [address] PCP - General General Internal Medicine 08/04/22 documented as of this encounter
--- OUTSIDE RECORDS SUMMARY | 2024-04-22 00:25 | XMS_ITS | Encounter Summary ---
Author Organization [facility] [place] [address] Care Team Providers Care Archaeologist Name Role Phone Haylie Steward MD Primary Care Provider + [phone] Encounter Details Date Type Department Care Team (Late st Contact Info) Description 12/15/2022 Orders Only [place] [phone] Betina Varma, MICROFILM MACHINE OPERATOR [facility] [address] Social History Tobacco Use Types Packs/Day Years Used Date Smoking Tobacco: Never Smokeless Tobacco: Never Alcohol Use Standard Drinks/Week Comments Not Currently 0 (1 standard drink = 0.6 oz pur e alcohol) [facility] Inpatient Questions Answer Date Recorded Does [...] Scheduled View Only Radiation Oncology at [address] [address] 04/25/2024 8:30 AM EST Scheduled View Only Radiation Oncology at [address] [address] 04/26/2024 3:00 PM EST Scheduled View Only Radiation Oncology at [address] [address] 04/26/2024 3:30 PM EST Office Visit Radiation Oncology at [address] [address] Ofe Fonseca MD [facility] [place] [address] 04/28/2024 2:45 PM EST Scheduled View Only Radiation Oncology at [address] [address] 04/29/2024 3:00 PM EST Scheduled View Only Radiation Oncology at [address] [address] 05/02/2024 3:45 PM EST Scheduled View Only Radiation Oncology at [address] [address] 05/03/2024 1:45 PM EST Scheduled View Only Radiation Oncology at [address] [address] 05/03/2024 2:15 PM EST Office Visit Radiation Oncology at [address] [address] Ofe Fonseca MD [facility] RADIATION [place] [address] 05/05/2024 8:15 AM EST Scheduled View Only Radiation Oncology at [address] [address] 05/06/2024 12:30 PM EST Scheduled View Only Radiation Oncology at [address] [address] 05/09/2024 3:00 PM EST Scheduled View Only Radiation Oncology at [address] [address] 05/10/2024 2:30 PM EST Scheduled View Only Radiation Oncology at [address] [address] 05/10/2024 3:15 PM EST Office Visit Radiation Oncology at [address] [address] Ofe Fonseca MD [facility] [place] [address] 05/11/2024 2:45 PM EST Scheduled View Only Radiation Oncology at [address] [address] 06/03/2024 3:30 PM EST Appointment Ultrasound at [place] [phone] Mira Hutchison [facility] [place] [address] 06/23/2024 4:00 PM EST Appointment Mammography/DXA at [place] [phone] Miryam Feliciano MD [facility] [place] [address] 07/12/2024 8:00 AM EDT Laboratory Appointment Lab [address] [phone] 07/12/2024 9:30 AM EDT Office Visit Nephrology Hypertension at [place] [phone] Sharmin Jean-Baptiste MICROFILM MACHINE OPERATOR [facility] [place] [address] 07/13/2024 10:30 AM EDT Laboratory Appointment Lab at [facility] Hematology Oncology [address] [place] [address] 07/13/2024 11:30 AM EDT Office Visit Hematology [place] [phone] Salena Alvares APRN [facility] [place] [address] 07/13/2024 12:45 PM EDT Appointment Hematology [place] [address] documented as of this encounter Procedures Procedure Name Priority Date/Time Associated Diagnosis Comments MEASLES (RUBEOLA) ANTIBODY, IGG Routine 12/15/2022 4:56 PM EDT documented in this encounter Results * Measles (Rubeola) Antibody, IgG (12/15/2022 4:56 PM EDT) Rubeola Antibody IgG Positive Positive [facility] Comment: A positive result for this assay is considered to be an indicator of positive immune status. Blood Venous Draw / Unknown 12/15/2022 4:56 PM EDT 12/16/2022 7:18 AM EDT Narrative Resulting Agency Comment Spec In Lab Betina Varma MICROFILM MACHINE OPERATOR IMMUNOLOGY ORDERABLE S [facility] [place] [address] documented in this encounter Visit Diagnoses Not on filedocumented in this encounter Care Teams Archaeologist Relationship Specialty Start Date End [place] [address] [place] [address] PCP - General General Internal Medicine 08/04/22 documented as of this encounter
--- OUTSIDE RECORDS SUMMARY | 2024-04-22 00:25 | XMS_ITS | Encounter Summary ---
Author Organization [facility] [place] [address] Care Team Providers Care Stereotype Finisher Name Role Phone Haylie Steward MD Primary Care Provider + [phone] Encounter Details Date Type Department Care Team (Latest Contact Info) Description 01/06/2023 9:00 AM EDT Office Visit [place] [phone] Sharmin Jean-Baptiste APRN [facility] [place] [address] Stage 3b chronic kidney disease (CKD); Hyperparathyroidism; Anemia in stage 3a chronic kidney disease; [...] Sign Reading Time Taken Comments Blood Pressure 124/80 01/06/2023 9:00 AM EDT Pulse 61 01/06/2023 9:00 AM EDT Temperature - - Respiratory Rate - - Oxygen Saturation 100% 01/06/2023 9:00 AM EDT Inhaled Oxygen Concentration - - Weight 56.7 kg (125 lb) 01/06/2023 9:00 AM EDT Height 160 cm (5' 2.99) 01/06/2023 9:00 AM EDT Body Mass Index 22.15 01/06/2023 9:00 AM EDT documented in this encounter Progress Notes * Horace Rogers MD - 01/06/2023 9:00 AM EDT Nephrology/Hypertension Clinic Follow-up Note [id number] ID: 47 y.o.year-old female being seen for follow up of CKD Stage 3 with history of lithium use. Past Medical History: Patient Active Problem List Diagnosis Code Stage 3b chronic kidney disease (CKD) N18.32 Hyperparathyroidism E21.3 Anemia D64.9 [place] intoxication, accidental or unintentional, initial encounter T56.891A Abnormal antibody titer R76.0 Benign neoplasm of skin D23.9 Bipolar affective, mixed F31.60 Chronic pansinusitis J32.4 Chronic tonsillitis J35.01 H/O toe surgery Z98.890 Herpes zoster without complication B02.9 Hypothyroidism E03.9 Irritable bowel syndrome K58.9 White coat syndrome without diagnosis of hypertension R03.0 Outpatient Encounter Medications as of 01/06/2023 Medication Sig Dispense Refill pilocarpine (Salagen) 5 mg tablet Take 1 tablet by mouth 3 times daily. 90 tablet 2 ferrous sulfate EC (FeroSul) 325 mg (65 mg iron) DR tablet Take 1 tablet by mouth daily. 30 tablet 3 levothyroxine (Synthroid) 75 mcg tablet Take 1 tablet by mouth every morning. 90 tablet 0 buPROPion XL (Wellbutrin XL) 150 mg XL 24 hr tablet Take 1 tablet by mouth every morning. 90 tablet0 divalproex ER (Depakote ER) 250 mg ER 24 hr tablet 2 tabs BID. 120 tablet 02 clonazePAM (KlonoPIN) 0.5 mg disintegrating tablet Take 0.5 mg by mouth daily as needed. acetaminophen (Tylenol) 500 mg tablet Take 1,000 mg by mouth every 6 hours as needed for Pain. Alosetron (Lotronex) 0.5 mg tablet Take 0.5 mg by mouth 2 times daily. [DISCONTINUED] pilocarpine (Salagen) 5 mg tablet Take 1 tablet by mouth 3 times daily. 60 tablet 2 No facility-administered encounter medications on file as of 01/06/2023. Allergies Allergen Reactions Nsaids (Non-Steroidal Anti-Inflammatory Drug) All interfere with lithium All interfere with lithium Tolmetin All interfere with lithium Ibuprofen Other reaction(s): Other, Other (See Comments), Unknown Patient states it affects her bipolar medication [place]. Interim history - Patient was last seen by nephrology on 10/01/22, when at that time her GFR was 59. No hospitalizations, surgeries, or new diagnoses since last visit. S: Having some issues with constipation. Was told to hold alosteron and developed diarrhea yesterday. Has been taking FeSO4 tabs twice daily. Otherwise feeling well. O: Vitals: 01/06/23 0900 BP: 124/80 BP Location ([facility]): Right arm Patient Position: Sitting BP Cuff Sizes: Adult (25-34 cm) Pulse: 61 SpO2: 100% Weight: 56.7 kg (125 lb) Height: 160 cm (5' 2.99) General: Arrived [...] hour(s)) PTH Result Value Ref Range PTH 109 (H) 15 - 65 pg/mL Phosphorus Result Value Ref Range Phosphorus 2.5 2.5 - 4.5 mg/dL Iron and TIBC Result Value Ref Range Iron 95 30 - 150 mcg/dL TIBC 347 250 - 450 mcg/dL Iron Saturation 27 20 - 50 % Ferritin Result Value Ref Range Ferritin 38 15 - 150 ng/mL Basic Metabolic Panel (non-fasting) Result Value Ref Range Glucose Lvl 85 65 - 199 mg/dL BUN 18 8 - 18 mg/dL Creatinine 1.28 (H) 0.70 - 1.20 mg/dL Sodium 141 135 - 145 mmol/L Potassium 4.6 3.5 - 5.0 mmol/L Chloride 108 (H) 98 - 107 mmol/L CO2 25 22 - 31 mmol/L Anion Gap 8 5 - 15 mmol/L Calcium 10.2 8.5 - 10.5 mg/dL Estimated GFR 52 (L) >=60 mL/min/1.73 m?? Albumin Level Result Value Ref Range Albumin 4.1 3.2 - 5.2 g/dL Hemogram Result Value Ref Range WBC 4.7 4.0 - 9.5 x10(3)/mcL RBC 4.85 4.00 - 5.21 x10(6)/mcL Hemoglobin 14.0 11.7 - 15.5 g/dL Hematocrit 44.6 35.7 - 45.8 % MCV 92.0 82.6 - 94.4 fL MCH 28.9 27.1 - 32.0 pg MCHC 31.4 (L) 31.7 - 35.0 g/dL Platelets 273 145 - 357 x10(3)/mcL RDWSD 51.5 (H) 37.0 - 46.0 fL RDWCV 15.3 (H) 11.5 - 14.1 % MPV 9.2 7.6 - 12.9 fL nRBC % Auto 0.0 % nRBC Abs Auto 0.000 0.000 - 0.000 x10(3)/mcL Differential, Automated Result Value Ref Range Neutrophils % 58.1 % Neutr Abs (ANC) 2.75 1.70 - 6.10 x10(3)/mcL Lymphocytes % 28.5 % Lymphocytes Abs 1.4 0.9 - 3.2 x10(3)/mcL Monocytes % 10.1 % Monocyte Abs 0.5 0.3 - 0.9 x10(3)/mcL Eosinophils % 2.5 % Eosinophils Abs 0.1 0.0 - 0.4 x10(3)/mcL Basophils % 0.6 % Basophils Abs 0.0 0.0 - 0.1 x10(3)/mcL Immature Gran % 0.20 % Nessa Gran Abs 0.01 0.00 - 0.04 x10(3)/mcL Protein/Creatinine Ratio, urine Result Value Ref Range U Creatinine 15 mg/dL U Protein Ran <6 0 - 12 mg/dL Prot/Cre Ratio <0.4 ratio _Urinalysis with microscopic Result Value Ref Range Glucose UA Negative Negative mg/dL Protein UA Negative Negative mg/dL Bilirubin UA Negative Negative mg/dL Urobilinogen UA Normal Normal mg/dL pH UA 7.0 5.0 - 8.0 Blood UA Negative Negative mg/dL Ketones UA Negative Negative mg/dL Nitrite UA Negative Negative Leukocytes UA Negative Negative mcL Appearance UA Clear Clear Spec [place] UA 1.005 1.005 - 1.030 Color UA Yellow Yellow RBC UA 0 0 - 4 /HPF WBC UA 0 0 - 5 /HPF A/P: 47 y.o.year-old female seen for follow up for CKD Stage 3 with history of lithium use. CKD Stage 3a. Risk factors for worsening renal function reviewed. Discussed importance of good blood pressure control, good blood sugar control, adequate hydration, and avoidance of NSAIDs. No clinical indication for OUTSIDE RIGGER. HTN - BP appears to be adequately controlled. Continue current management. Diabetes - Not present. Anemia - hgb and Fe stores have normalized. Will hold FeSO4 in light of GI symptoms. Bone and mineral - PTH improving off Li. Ca remains high normal. Vit D stores adequate. Will hold on calcitriol for now in light of relatively high Ca. KDIGO PTH goals in CKD: Stage 3 [...] to reachout with any questions or concerns. CC: Haylie Steward MD @[email or web address]@ documented in this encounter Plan of Treatment Upcoming Encounters Date Type Department Care Team (Latest Contact Info) Description 04/22/2024 9:45 AM EST Scheduled View Only Radiation Oncology at [address] [phone] 04/25/2024 8:30 AM EST Scheduled View Only Radiation Oncology at [address] [phone] 04/26/2024 3:00 PM EST Scheduled View Only Radiation Oncology at [address] [phone] 04/26/2024 3:30 PM EST Office Visit Radiation Oncology at [address] [phone] Ofe Fonseca MD [facility] [place] [address] 04/28/2024 2:45 PM EST Scheduled View Only Radiation Oncology at [address] [phone] 04/29/2024 3:00 PM EST Scheduled View Only Radiation Oncology at [address] [phone] 05/02/2024 3:45 PM EST Scheduled View Only Radiation Oncology at [address] [phone] 05/03/2024 1:45 PM EST Scheduled View Only Radiation Oncology at [address] [phone] 05/03/2024 2:15 PM EST Office Visit Radiation Oncology at [address] [phone] Ofe Fonseca MD [facility] [place] [address] 05/05/2024 8:15 AM EST Scheduled View Only Radiation Oncology at [address] [phone] 05/06/2024 12:30 PM EST Scheduled View Only Radiation Oncology at [address] [phone] 05/09/2024 3:00 PM EST Scheduled View Only Radiation Oncology at [address] [phone] 05/10/2024 2:30 PM EST Scheduled View Only Radiation Oncology at [address] [phone] 05/10/2024 3:15 PM EST Office Visit Radiation Oncology at [address] [phone] Ofe Fonseca MD [facility] [place] [address] 05/11/2024 2:45 PM EST Scheduled View Only Radiation Oncology at [address] [phone] 06/03/2024 3:30 PM EST Appointment Ultrasound at [place] [phone] Mira Hutchison [facility] [address] 06/23/2024 4:00 PM EST Appointment Mammography/DXA at [place] [phone] Miryam Feliciano MD [facility] [place] [address] 07/12/2024 8:00 AM EDT Laboratory Appointment Lab [address] [phone] 07/12/2024 9:30 AM EDT Office Visit [place] [phone] Sharmin Jean-Baptiste [facility] [place] [address] 07/13/2024 10:30 AM EDT Laboratory Appointment Lab at [facility] Hematology Oncology [address] [place] [phone] 07/13/2024 11:30 AM EDT Office Visit Hematology [place] [address] Salena Alvares APRN [facility] [place] [address] 07/13/2024 12:45 PM EDT Appointment Hematology [place] [address] documented as of this encounter Results * Protein/Creatinine Ratio, urine (06/08/2023 11:22 AM EST) Creatinine, Urine 24 mg/dL [facility] Protein, Urine <6 0 - 12 mg/dL [facility] Protein / Creatinine Ratio, Urine <0.2 ratio [facility] Urine 06/08/2023 11:2 2 AM EST 06/08/2023 11:37 AM EST Narrative Resulting Agency Comment Spec In Lab Horace Rogers MD URINE ORDERABLES [facility] [place] [address] * Phosphorus (06/08/2023 11:04 AM EST) Phosphorus 3.2 2.5 - 4.5 mg/dL [facility] Blood 06/08/2023 11:0 4 AM EST 06/08/2023 11:19 AM EST Narrative Resulting Agency Comment Spec In Lab Horace Rogers MD CHEMISTRY ORDERABLES [facility] [place] [address] * Albumin Level (06/08/2023 11:04 AM EST) Albumin 4.4 3.2 - 5.2 g/dL [facility] Blood 06/08/2023 11:0 4 AM EST 06/08/2023 11:19 AM EST Narrative Resulting Agency Comment Spec In Lab Horace Rogers MD CHEMISTRY ORDERABLES Performing Organization Address [facility] de Phone Number [facility] [place] [address] * Iron and TIBC (06/08/2023 11:04 AM EST) Iron 117 30 - 150 mcg/dL [facility] TIBC Not Calculated 250 - 450 mcg/dL [facility] Iron Saturation Not Calculated 20 - 50 % [facility] Blood 06/08/2023 11:0 4 AM EST 06/08/2023 11:19 AM EST Narrative Resulting Agency Comment Spec In Lab Horace Rogers MD CHEMISTRY ORDERABLES Performing Organization Address [facility] de Phone Number [facility] [place] [address] * Ferritin (06/08/2023 11:04 AM EST) Ferritin 44 6 - 175 ng/mL [facility] Comment: Please note that as of 04/08/2023, the reference intervals for Ferritin have been updated. Blood 06/08/2023 11:0 4 AM EST 06/08/2023 11:19 AM EST Narrative Resulting Agency Comment Spec In Lab Horace Rogers MD CHEMISTRY ORDERABLES Performing Organization Address [facility] de Phone Number [facility] [place] [address] * (ABNORMAL) Basic Metabolic Panel (non-fasting) (06/08/2023 11:04 AM EST) Glucose 81 65 - 199 mg/dL [facility] Comment:Diabetes: >=200 mg/d L plus symptoms Blood Urea Nitrogen 20(H) 8 - 18 mg/dL [facility] Creatinine 1.36(H) 0.70 - 1.20 mg/dL [facility] Sodium 141 135 - 145 mmol/L [facility] Potassium 4.5 3.5 - 5.0 mmol/L [facility] Comment: Please note: ??Patients with WBC >100,000 may have falsely elevated Potassium levels. ??For accurate Potassium quantification in these patients send serum separator tube (gold top) for subsequent determinations. ??Contact the Clinical Chemistry Laboratory if there are any questions. Chloride 107 98 - 107 mmol/L [facility] Carbon Dioxide 21(L) 22 - 31 mmol/L [facility] Anion Gap 13 5 - 15 mmol/L [facility] Calcium 10.1 8.5 - 10.5 mg/dL [facility] Est Glomerular Filtration Rate 48(L) >=60 mL/min/1. 73 m?? [facility] Comment: This patient's estimated GFR was [...] Rogers MD CHEMISTRY ORDERABLES Performing Organization Address City/[facility]/ZIP Co de Phone Number [facility] [place] [address] * Protein/Creatinine Ratio, urine (01/06/2023 7:53 AM EDT) Creatinine, Urine 15 mg/dL [facility] Protein, Urine <6 0 - 12 mg/dL [facility] Protein / Creatinine Ratio, Urine <0.4 ratio [facility] Urine 01/06/2023 7:53 AM EDT 01/06/2023 8:07 AM EDT Narrative Resulting Agency Comment Spec In Lab Sharmin Jean-Baptiste APRN URINE ORDERABLES [facility] [place] [address] * _Urinalysis with microscopic (01/06/2023 7:53 AM EDT) Glucose, Urine Dipstick Negative Negative mg/dL [facility] Protein, Urine Dipstick Negative Negative mg/dL [facility] Bilirubin, Urine Dipstick Negative Negative mg/dL [facility] Comment: Clinical correlation required for positive Urine Bilirubin results as false positive may occur with some drugs and drug related products. If a false positive is suspected a serum total bilirubin should be considered if clinically indicated. Urobilinogen, Urine Dipstick Normal Normal mg/dL [facility] pH, Urn (dipstick) 7.0 5.0 - 8.0 [facility] Blood, Urine Dipstick Negative Negative mg/dL [facility] Ketone, Urine Dipstick Negative Negative mg/dL [facility] Nitrite, Urine Dipstick Negative Negative [facility] Leukocytes, Urine Dipstick Negative Negative mcL [facility] Appearance, Urine Dipstick Clear Clear [facility] Specific [place] Urine Automated 1.005 1.005 - 1.030 [facility] Color, Urine Dipstick Yellow Yellow [facility] RBC, Urine 0 0 - 4 /HPF [facility] WBC, Urine 0 0 - 5 /HPF [facility] Urine 01/06/2023 7:53 AM EDT 01/06/2023 8:07 AM EDT Narrative Resulting Agency Comment Spec In Lab Sharmin Jean-Baptiste [employer] URINE ORDERABLES [facility] [place] [address] * Vitamin D, 25-Hydroxy (01/06/2023 7:47 AM EDT) Vitamin D Total 25 OH 36 21 - 100 ng/mL [facility] Vit D Interp Sufficient [facility] Blood 01/06/2023 7:47 AM EDT 01/06/2023 7:53 AM EDT Narrative Resulting Agency Comment Spec In Lab Sharmin L Estiven [employer] CHEMISTRY ORDERAB LES Performing Organization Address City/[facility]/ZIP Co de Phone Number [facility] [place] [address] * (ABNORMAL) PTH (01/06/2023 7:47 AM EDT) Parathyroid Hormone 109(H) 15 - 65 pg/mL [facility] Blood 01/06/2023 7:47 AM EDT 01/06/2023 7:53 AM EDT Narrative Resulting Agency Comment Spec In Lab Sharmin L Estiven [employer] CHEMISTRY ORDERAB LES Performing Organization Address [facility] Co de Phone Number [facility] [place] [address] * Phosphorus (01/06/2023 7:47 AM EDT) Phosphorus 2.5 2.5 - 4.5 mg/dL [facility] Blood 01/06/2023 7:47 AM EDT 01/06/2023 7:53 AM EDT Narrative Resulting Agency Comment Spec In Lab Sharmin L Estiven [employer] CHEMISTRY ORDERAB LES Performing Organization Address [facility] Co de Phone Number [facility] [place] [address] * Iron and TIBC (01/06/2023 7:47 AM EDT) Iron 95 30 - 150 mcg/dL [facility] TIBC 347 250 - 450 mcg/dL [facility] Iron Saturation 27 20 - 50 % [facility] Blood 01/06/2023 7:47 AM EDT 01/06/2023 7:53 AM EDT Narrative Resulting Agency Comment Spec In Lab Sharmin L Estiven [employer] CHEMISTRY ORDERAB LES Performing Organization Address City/[facility]/ZIP Co de Phone Number [facility] [place] [address] * Ferritin (01/06/2023 7:47 AM EDT) Ferritin 38 15 - 150 ng/mL [facility] Comment: Pediatric reference ranges not verified at [facility], interpret with caution. Reference ranges for females greater than 50 years of age approach values for men, i.e., 30-400 ng/mL. Blood 01/06/2023 7:47 AM EDT 01/06/2023 7:53 AM EDT Narrative Resulting Agency Comment Spec In Lab Sharmin Agueroersoll [employer] CHEMISTRY ORDERAB LES [facility] [place] [address] * (ABNORMAL) Basic Metabolic Panel (non-fasting) (01/06/2023 7:47 AM EDT) Glucose 85 65 - 199 mg/dL [facility] Comment:Diabetes: >=200 mg/d L plus symptoms Blood Urea Nitrogen 18 8 - 18 mg/dL [facility] Creatinine 1.28(H) 0.70 - 1.20 mg/dL [facility] Sodium 141 135 - 145 mmol/L [facility] Potassium 4.6 3.5 - 5.0 mmol/L [facility] Comment: Please note: ??Patients with WBC >100,000 may have falsely elevated Potassium levels. ??For accurate Potassium quantification in these patients send serum separator tube (gold top) for subsequent determinations. ??Contact the Clinical Chemistry Laboratory if there are any questions. Chloride 108(H) 98 - 107 mmol/L [facility] Carbon Dioxide 25 22 - 31 mmol/L [facility] Anion Gap 8 5 - 15 mmol/L [facility] Calcium 10.2 8.5 - 10.5 mg/dL [facility] Est Glomerular Filtration Rate 52(L) >=60 mL/min/1. 73 m?? [facility] Comment: This patient's estimated GFR was [...] and symptoms in addition to eGFR. Blood 01/06/2023 7:47 AM EDT 01/06/2023 7:53 AM EDT Narrative Resulting Agency Comment Spec In Lab Sharmin Jean-Baptiste [employer] CHEMISTRY ORDERAB LES Performing Organization Address City/[facility]/ZIP Co de Phone Number [facility] [place] [address] * Albumin Level (01/06/2023 7:47 AM EDT) Albumin 4.1 3.2 - 5.2 g/dL [facility] Blood 01/06/2023 7:47 AM EDT 01/06/2023 7:53 AM EDT Narrative Resulting Agency Comment Spec In Lab Sharmin Jean-Baptiste [employer] CHEMISTRY ORDERAB LES Performing Organization Address City/[facility] Co de Phone Number [facility] [place] [address] documented in this encounter Visit Diagnoses Diagnosis Stage 3b chronic kidney disease (CKD) Hyperparathyroidism Hyperparathyroidism, unspecified Anemia in stage 3a chronic kidney disease Stage 3a chronic kidney disease documented in this encounter Care Teams Stereotype Finisher Relationship Specialty Start Date End Date Haylie Steward MD [facility] [address] PCP - General General Internal Medicine 08/04/22 documented as of this encounter
--- OUTSIDE RECORDS SUMMARY | 2024-04-22 00:25 | XMS_ITS | Encounter Summary ---
Author Organization [facility] [place] [address] Care Team Providers Care Last Waxer Name Role Phone Haylie Steward MD Primary Care Provider [phone] Encounter Details Date Type Department Care Team (Latest Contact Info) Description 02/11/2023 Travel Social History Tobacco Use Types Packs/Day [...] EST Scheduled View Only Radiation Oncology at [address] [phone] 04/25/2024 8:30 AM EST Scheduled View Only Radiation Oncology at [address] [phone] 04/26/2024 3:00 PM EST Scheduled View Only Radiation Oncology at [address] [phone] 04/26/2024 3:30 PM EST Office Visit Radiation Oncology at [address] [phone] Ofe Fonseca MD [facility] [place] [address] 04/28/2024 2:45 PM EST Scheduled View Only Radiation Oncology at [address] [phone] 04/29/2024 3:00 PM EST Scheduled View Only Radiation Oncology at [address] [phone] 05/02/2024 3:45 PM EST Scheduled View Only Radiation Oncology at [address] [phone] 05/03/2024 1:45 PM EST Scheduled View Only Radiation Oncology at [address] [phone] 05/03/2024 2:15 PM EST Office Visit Radiation Oncology at [address] [phone] Ofe Fonseca MD [facility] [place] [address] 05/05/2024 8:15 AM EST Scheduled View Only Radiation Oncology at [address] [phone] 05/06/2024 12:30 PM EST Scheduled View Only Radiation Oncology at [address] [phone] 05/09/2024 3:00 PM EST Scheduled View Only Radiation Oncology at [address] [phone] 05/10/2024 2:30 PM EST Scheduled View Only Radiation Oncology at [address] [phone] 05/10/2024 3:15 PM EST Office Visit Radiation Oncology at [address] [phone] Ofe Fonseca MD [facility] [place] [address] 05/11/2024 2:45 PM EST Scheduled View Only Radiation Oncology at [address] [phone] 06/03/2024 3:30 PM EST [place] [phone] Mira Hutchison, [facility] [place] [address] 06/23/2024 4:00 PM EST Appointment Mammography/[place] [phone] Miryam Feliciano MD [facility] [place] [address] 07/12/2024 8:00 AM EDT Laboratory Appointment Lab [address] [place] [phone] 07/12/2024 9:30 AM EDT Office Visit Ne[place] [phone] Sharmin Jean-Baptiste [facility] [place] [address] 07/13/2024 10:30 AM EDT Laboratory Appointment Lab at [facility] [place] Oncology [address] [place] [phone] 07/13/2024 11:30 AM EDT Office Visit Hematology [place] [address] Salena Alvares APRN [facility] [place] [address] 07/13/2024 12:45 PM EDT Appointment Hematology [place] [phone] documented as of this encounter Visit Diagnoses Not on filedocumented in this encounter Care Teams Last Waxer Relationship Specialty Start Date [place] [address] PCP - General General Internal Medicine 08/04/22 documented as of this encounter
--- OUTSIDE RECORDS SUMMARY | 2024-04-22 00:25 | XMS_ITS | Encounter Summary ---
Author Organization [facility] [place] [address] Care Team Providers Care Operations Welder Name Role Phone Haylie Steward MD Primary Care Provider [phone] Encounter Details Date Type Department Care Team (Late st Contact Info) Description 11/10/2022 Interpretation Only [address] [address] Haylie Steward [place] [address] [place] [address] Social History Tobacco Use Types Packs/Day Years [...] Scheduled View Only Radiation Oncology at [address] [address] 04/25/2024 8:30 AM EST Scheduled View Only Radiation Oncology at [address] [phone] 04/26/2024 3:00 PM EST Scheduled View Only Radiation Oncology at [address] [address] 04/26/2024 3:30 PM EST Office Visit Radiation Oncology at [address] [address] Ofe Fonseca MD [facility] RADI[place] [address] 04/28/2024 2:45 PM EST Scheduled View Only Radiation Oncology at [address] [address] 04/29/2024 3:00 PM EST Scheduled View Only Radiation Oncology at [address] [address] 05/02/2024 3:45 PM EST Scheduled View Only Radiation Oncology at [address] [address] 05/03/2024 1:45 PM EST Scheduled View Only Radiation Oncology at [address] [address] 05/03/2024 2:15 PM EST Office Visit Radiation Oncology at [address] [phone] Ofe Fonseca MD [facility] [place] [address] 05/05/2024 8:15 AM EST Scheduled View Only Radiation Oncology at [address] [address] 05/06/2024 12:30 PM EST Scheduled View Only Radiation Oncology at [address] [address] 05/09/2024 3:00 PM EST Scheduled View Only Radiation Oncology at [address] [address] 05/10/2024 2:30 PM EST Scheduled View Only Radiation Oncology at [address] [address] 05/10/2024 3:15 PM EST Office Visit Radiation Oncology at [address] [address] Ofe Fonseca MD [facility] [place] [address] 05/11/2024 2:45 PM EST Scheduled View Only Radiation Oncology at [address] [address] 06/03/2024 3:30 PM EST Appointment Ultrasound at [place] [phone] Mira Hutchison TON CYLINDER INSPECTOR [facility] [place] [address] 06/23/2024 4:00 PM EST Appointment Mammography/DXA at [place] [phone] Miryam Feliciano MD [facility] [place] [address] 07/12/2024 8:00 AM EDT Laboratory Appointment Lab [address] [phone] 07/12/2024 9:30 AM EDT Office Visit Nephrology Hypertension at [place] [phone] Sharmin Jean-Baptiste TON CYLINDER INSPECTOR [facility] [place] [address] 07/13/2024 10:30 AM EDT Laboratory Appointment Lab at [facility] Hematology Oncology [address] [place] [phone] 07/13/2024 11:30 AM EDT Office Visit Hematology [place] [address] Salena Alvares APRN [facility] DR MEDICAL ONCOLOGY [place] [phone] 07/13/2024 12:45 PM EDT Appointment H[place]ology [place] [address] documented as of this encounter Procedures Procedure Name Priority Date/Time Associated Diagnosis Comments MAMMO SCREENING CAD BILATERAL Routine 11/10/2022 1:35 PM EDT documented in this encounter Results * Mammo Screening Cad Bilateral (11/10/2022 1:35 PM EDT) PT CLASS O DH RAD ADMITDTTM DH RAD PT RAD MD INFO [id number]^HI ATT^HAYLIE RAD EXAM DESC MADDSC^SCREEN MAMMO BL INCLUDES CAD^RIS RAD Anatomical Region Laterality Modality Breast Bilateral Mammography Impressions 11/19/2022 9:26 AM EDT BI-RADS ??category 1: negative- No mammographic evidence of malignancy. RECOMMENDATION: Routine annual screening * ??Regular screening mammograms starting between age 40 and 50 reduces the risk of from breast cancer. * ??All screening tests have both risks and benefits. These risks and benefits should be assessed for each individual patient through discussion with their provider to determine their preferred breast cancer screening schedule. * ??Women should report any breast changes to a health care provider right away. * ??Some women, because of their family history, a genetic tendency, or other factors, should be screened with annual breast MRI as well as with mammograms. (The number of women who fall into this category is very small). Patients and health care providers should discuss the history of each patient to decide if earlier screening and/or breast MRI are appropriate. * ??Screening should continue as long as a woman is in good health and is expected to live 10 years or longer. * ??Screening mammography may not detect 10-15% of breast cancers. Thank you for letting us participate in the care of this patient. ??If you are a health care provider and have any questions regarding this report, please contact the number below. ??For patients who have questions please contact the health clinical care coordinator that requested your imaging first. ? Narrative 11/19/2022 9:26 AM EDT EXAMINATION: SCREEN MAMMO BL INCLUDES CAD CLINICAL HISTORY: screening mammo Family history of breast cancer: None Reproductive history: Nulliparous No personal history of breast cancer. COMPARISON: Previous mammograms were reviewed. TECHNIQUE: ??Bilateral MLO and CC digital mammograms were obtained and reviewed with CAD. ?? 2-D and 3-D tomosynthesis images were obtained. FINDINGS: There are no suspicious microcalcifications, masses, or areas of distortion. No changes compared to prior studies. Breast density: The breasts are heterogeneously dense, which may obscure small masses. Procedure Note Mario [place] MD - 11/19/2022 EXAMINATION: SCREEN MAMMO BL INCLUDES CAD CLINICAL HISTORY: screening mammo Family history of breast cancer: None Reproductive history: Nulliparous No personal history of breast cancer. COMPARISON: Previous mammograms were reviewed. TECHNIQUE: Bilateral MLO and CC digital mammograms were obtained andreviewed with CAD. 2-D and 3-D tomosynthesis images were obtained. FINDINGS: There are no suspicious microcalcifications, masses, or areasof distortion. No changes compared to prior studies. Breast density: The breasts are heterogeneously dense, which may obscuresmall masses. IMPRESSION BI-RADS category 1: negative- No mammographic evidence of malignancy. RECOMMENDATION: Routine annual screening * Regular screening mammograms starting between age 40 and 50 reduces therisk of from breast cancer. * All screening tests have both risks and benefits. These risks andbenefits should be assessed for each individual patient through discussion withtheir provider to determine their preferred breast cancer screening schedule. * Women should report any breast changes to a health care provider rightaway. * Some women, because of their family history, a genetic tendency, orother factors, should be screened with annual breast MRI as well as withmammograms. (The number of women who fall into this category is very small). Patientsand health care providers should discuss the history of each patient to decideif earlier screening and/or breast MRI are appropriate. * Screening should continue as long as a woman is in good health and is expected to live 10 years or longer. * Screening mammography may not detect 10-15% of breast cancers. Thank you for letting us participate in the care of this patient. If youare a health care provider and have any questions regarding this report,please contact the number below. For patients who have questions please contactthe health clinical care coordinator that requested your imaging first. Haylie Steward MD IMG MAMMO ORDERABLES documented in this encounter Visit Diagnoses Not on filedocumented in this encounter Care Teams Operations Welder Relationship Specialty Start Date End Date Haylie Steward MD [facility] [place] [address] PCP - General General Internal Medicine 08/04/22 documented as of this encounter
--- OUTSIDE RECORDS SUMMARY | 2024-04-22 00:25 | XMS_ITS | Encounter Summary ---
Author Organization [facility] [place] [address] Care Team Providers Care Handy Worker Name Role Phone Haylie Steward MD Primary Care Provider [phone] Reason for Visit * Consultation (Urgent) - Closed Specialty Diagnoses / Procedures Referred By Contac t Referred To Contact Gastroenterology Diagnoses Irritable bowel syndrome, unspecified type Haylie Steward [place] [address] [place] [address] [facility] [address] [place] [address] Referral ID Status Reason Start Date Expiration Date V isits Requested Visits Authorized [id number] Closed Consult, Test & Treat PCP Updated and/or Approved 12/17/2022 12/18/2023 12 12 Encounter Details Date Type Department Care Team (Latest Contact Info) Description 12/29/2022 8:05 AM EDT TH Visit (TeleHealth) [place] [address] Lyssa Euceda, INSULATION CUPOLA OPERATOR [facility] [place] [address] Iron deficiency anemia, unspecified iron deficiency anemia type Social History Tobacco Use Types Packs/Day [...] as of this encounter Progress Notes * Ok Lysas Edwina, INSULATION CUPOLA OPERATOR - 12/29/2022 8:05 AM EDT Gastroenterology [facility] (telemedicine) Chief Complaint: Nataliya Morfin is a 47 y.o. patient referred for consultation by Dr. Steward for [place] 1 stools while on Lotronex. History of Present Illness: 47 y.o. female with longstanding IBS concerned about [place] 1 stools while taking lotronex, and Iron daily. Diarrhea a few years ago. Has been on lotronex for many years ago for IBS-D. Started iron at end of September. Constipation started at the end of September as well. She is still having a bowel movement every day No black stools, or bloody stools. No thin stools. Still having some normal stools as well. She tells me she will have [place] one stool, then a regular stool, does have to bear down No thin caliper stools Last colonoscopy in [place] in 2019 geri No family history of colon cancer. No personal history of polyps. No known family hx of instructional interventionist malignancy. Has some symptoms of hb and reflux. She is taking pepcid as needed which works well for her. No dysphagia Aooetite is normal No unintentional weight loss Other than slightly harder stools she feels well. Has some cramps prior to [place] 1 stools. Relevant prior GI evaluation Colonoscopy a few years ago. Laboratory studies: none Imaging: none Endoscopy: none Medications: Outpatient Medications Prior to Visit Medication Sig Dispense Refill ferrous sulfate EC (FeroSul) 325 mg (65 [...] tablet 2 tabs BID. 120 tablet 02 pilocarpine (Salagen) 5 mg tablet Take 1 tablet by mouth 3 times daily. 60 tablet 2 clonazePAM (KlonoPIN) 0.5 mg disintegrating tablet Take 0.5 mg by mouth daily as needed. acetaminophen (Tylenol) 500 mg tablet Take 1,000 mg by mouth every 6 hours as needed for Pain. Alosetron (Lotronex) 0.5 mg tablet Take 0.5 mg by mouth 2 times daily. No facility-administered medications prior to visit. Allergies: is allergic to nsaids (non-steroidal anti-inflammatory drug), tolmetin, and ibuprofen. Relevant Past Medical History: Patient Active Problem List Diagnosis Code Stage 3b chronic kidney disease (CKD) N18.32 Hyperparathyroidism E21.3 Anemia D64.9 [place] intoxication, accidental or unintentional, initial encounter T56.891A Abnormal antibody titer R76.0 Benign neoplasm of skin D23.9 Bipolar affective, mixed F31.60 Chronic pansinusitis J32.4 Chronic tonsillitis J35.01 H/O toe surgery Z98.890 Herpes zoster without complication B02.9 Hypothyroidism E03.9 Irritable bowel syndrome K58.9 White coat syndrome without diagnosis of hypertension R03.0 Relevant Past Surgical History: Past Surgical History: Procedure Laterality Date EYE SURGERY tear ducts as a child TOE SURGERY Family History: non-contributory Social History: reports that she has never smoked. She has never used smokeless tobacco. She reports that she does not currently use alcohol. She reports that she does not use drugs. Physical exam: No physical examination performed during this telemedicine visit Assessment/Plan: Ms. Morfin is a 47 y.o. patient with longstanding IBS-D diagnosed by a previous provider. She has controlled her symptoms over the years with lotronex. When she started iron earlier this spring she developed more frequent [place] 1 stools. She does have an FLOR which has not been investigated from spencer standpoint yet. Symptoms seem to coincide with medication changes. Given she is having [place] 1 stools would hold further lotronex dosing. Discussed stopping lotronex. Continue iron-ordered as twice daily dosing per nephrology. Will order colo/endo for evaluation of FLOR. Her last scope was a few years ago. Has never had an endoscopy. Plan: -Oradell/endo to evaluate flor -Stop lotronex -Continue PO Iron, ok to take colace -Ensure adequate hydration -Remain active -High fiber diet. Please schedule with Motility or CGC team after scopes are completed. This patient, if needed, will be scheduled for the next available clinic visit with a provider within the Gastroenterology Department at [facility] If testing is being performed the follow-up will be after these results are reviewed. Patient should continue to seek help from their primary care team while waiting for any relevant testing and results. They have not been assigned a gastroenterology provider as of this triage visit. Lyssa Euceda APRN [facility] [place] [address] documented in this encounter Plan of Treatment Upcoming Encounters Date Type Department Care Team (Latest Contact Info) Description 04/22/2024 9:45 AM EST Scheduled View Only Radiation Oncology at [address] [address] 04/25/2024 8:30 AM EST Scheduled View Only Radiation Oncology at [address] [phone] 04/26/2024 3:00 PM EST Scheduled View Only Radiation Oncology at [address] [address] 04/26/2024 3:30 PM EST Office Visit Radiation Oncology at [address] [address] Ofe Fonseca MD [facility] [place] [address] 04/28/2024 2:45 PM EST Scheduled View Only Radiation Oncology at [address] [address] 04/29/2024 3:00 PM EST Scheduled View Only Radiation Oncology at [address] [address] 05/02/2024 3:45 PM EST Scheduled View Only Radiation Oncology at [address] [address] 05/03/2024 1:45 PM EST Scheduled View Only Radiation Oncology at [address] [address] 05/03/2024 2:15 PM EST Office Visit Radiation Oncology at [address] [address] Ofe Fonseca MD [facility] RADIATION [place] [address] 05/05/2024 8:15 AM EST Scheduled View Only Radiation Oncology at [address] [address] 05/06/2024 12:30 PM EST Scheduled View Only Radiation Oncology at [address] [address] 05/09/2024 3:00 PM EST Scheduled View Only Radiation Oncology at [address] [address] 05/10/2024 2:30 PM EST Scheduled View Only Radiation Oncology at [address] [address] 05/10/2024 3:15 PM EST Office Visit Radiation Oncology at [address] [address] Ofe Fonseca MD [facility] [place] [address] 05/11/2024 2:45 PM EST Scheduled View Only Radiation Oncology at [address] [address] 06/03/2024 3:30 PM EST Appointment Ultrasound at [address] Mira Hutchison, [facility] [place] [address] 06/23/2024 4:00 PM EST Appointment Mammography/DXA at [address] Miryam Feliciano MD [facility] [place] [address] 07/12/2024 8:00 AM EDT Laboratory Appointment Lab [address] [place], [place] [phone] 07/12/2024 9:30 AM EDT Office Visit Nephrology Hypertension at [place] [address] Sharmin Jean-Baptiste, [facility] [place] [address] 07/13/2024 10:30 AM EDT Laboratory Appointment Lab at [facility] Hematology Oncology [address] [place], [place] [phone] 07/13/2024 11:30 AM EDT Office Visit Hematology and Oncology at [place] [phone] [facility] [place] [address] 07/13/2024 12:45 PM EDT Appointment Hematology and Oncology at [place] [phone] Scheduled Orders Name Type Priority Associated Diagnoses Orde r Schedule ENDOSCOPY CASE REQUEST: EGD, UPPER GI ENDOSCOPY (WRVU 2.09), COLONOSCOPY, DIAGNOSTIC (WRVU 3.26) Procedures Routine Iron deficiency anemia, unspecified iron deficiency anemia type Ordered: 12/29/2022 documented as of this encounter Visit Diagnoses Diagnosis Iron deficiency anemia, unspecified iron deficiency anemia type documented in this encounter Care Teams Handy Worker Relationship Specialty Start Date End [place] [address] PCP - General General Internal Medicine 08/04/22 documented as of this encounter
--- OUTSIDE RECORDS SUMMARY | 2024-04-22 00:25 | XMS_ITS | Encounter Summary ---
[place] [address] Care Team Providers Care Concrete Pourer Name Role Phone Haylie Steward MD Primary Care Provider [phone] Encounter Details Date Type Department Care Team (Latest Contact Info) Description 01/06/2023 7:30 AM EDT Laboratory Appointment Lab 3L [place] [phone] Stage 3b chronic kidney disease (CKD) Social [...] Scheduled View Only Radiation Oncology at [address] [phone] 04/25/2024 8:30 AM EST Scheduled View Only Radiation Oncology at [address] [phone] 04/26/2024 3:00 PM EST Scheduled View Only Radiation Oncology at [address] [phone] 04/26/2024 3:30 PM EST Office Visit Radiation Oncology at [address] [phone] Ofe Fonseca MD [facility] [place] [address] 04/28/2024 2:45 PM EST Scheduled View Only Radiation Oncology at [address] [phone] 04/29/2024 3:00 PM EST Scheduled View Only Radiation Oncology at [address] [phone] 05/02/2024 3:45 PM EST Scheduled View Only Radiation Oncology at [address] [phone] 05/03/2024 1:45 PM EST Scheduled View Only Radiation Oncology at [address] [phone] 05/03/2024 2:15 PM EST Office Visit Radiation Oncology at [address] [phone] Ofe Fonseca MD [facility] [place] [address] 05/05/2024 8:15 AM EST Scheduled View Only Radiation Oncology at [address] [phone] 05/06/2024 12:30 PM EST Scheduled View Only Radiation Oncology at [address] [phone] 05/09/2024 3:00 PM EST Scheduled View Only Radiation Oncology at [address] [phone] 05/10/2024 2:30 PM EST Scheduled View Only Radiation Oncology at [address] [phone] 05/10/2024 3:15 PM EST Office Visit Radiation Oncology at [address] [address] Ofe Fonseca MD [facility] [place] [address] 05/11/2024 2:45 PM EST Scheduled View Only Radiation Oncology at [address] [phone] 06/03/2024 3:30 PM EST Appointment Ultrasound at [place] [phone] Mira Hutchison [facility] [place] [address] 06/23/2024 4:00 PM EST Appointment Mammography/DXA at [place] [phone] Miryam Feliciano MD [facility] [place] [address] 07/12/2024 8:00 AM EDT Laboratory Appointment Lab 3[place] [phone] 07/12/2024 9:30 AM EDT Office Visit Nephrology Hypertension at [place] [phone] Sharmin Jean-Baptiste [facility] [place] [address] 07/13/2024 10:30 AM EDT Laboratory Appointment Lab at [facility] Hematology Oncology [address] [place] [phone] 07/13/2024 11:30 AM EDT Office Visit Hematology [place] [phone] Salena Alvares APRN [facility] [place] [address] 07/13/2024 12:45 PM EDT Appointment Hematology [place] [phone] documented as of this encounter Procedures Procedure Name Priority Date/Time Associated Diagnosis Comments HC URINALYSIS ROUTINE Routine 01/06/2023 7:53 AM EDT Stage 3b chronic kidney disease (CKD) PROTEIN/CREATININE RATIO, URINE Routine 01/06/2023 7:53 AM EDT Stage 3b chronic kidney disease (CKD) PTH Routine 01/06/2023 7:47 AM EDT Stage 3b chronic kidney disease (CKD) HEMOGRAM Routine 01/06/2023 7:47 AM EDT Stage 3b chronic kidney disease (CKD) DIFFERENTIAL, AUTOMATED Routine 01/06/2023 7:47 AM EDT Stage 3b chronic kidney disease (CKD) IRON AND TIBC Routine 01/06/2023 7:47 AM EDT Stage 3b chronic kidney disease (CKD) VITAMIN D, 25-HYDROXY Routine 01/06/2023 7:47 AM EDT Stage 3b chronic kidney disease (CKD) CBC (WITH DIFF) Routine 01/06/2023 7:47 AM EDT Stage 3b chronic kidney disease (CKD) PHOSPHORUS Routine 01/06/2023 7:47 AM EDT Stage 3b chronic kidney disease (CKD) FERRITIN Routine 01/06/2023 7:47 AM EDT Stage 3b chronic kidney disease (CKD) ALBUMIN LEVEL Routine 01/06/2023 7:47 AM EDT Stage 3b chronic kidney disease (CKD) BASIC METABOLIC PANEL Routine 01/06/2023 7:47 AM EDT Stage 3b chronic kidney disease (CKD) documented in this encounter Results * _Urinalysis with microscopic (01/06/2023 7:53 AM EDT) Glucose, Urine Dipstick Negative Negative mg/dL [facility] Protein, Urine Dipstick Negative Negative mg/dL [facility] Bilirubin, Urine Dipstick Negative Negative mg/dL [facility] Comment: Clinical correlation required for positive Urine Bilirubin results as false positive may occur with some drugs and drug related products. If a false positive is suspected a serum total bilirubin should be considered if clinically indicated. Urobilinogen, Urine Dipstick Normal Normal mg/dL [facility] pH, Urn (dipstick) 7.0 5.0 - 8.0 [facility] Blood, Urine Dipstick Negative Negative mg/dL [facility] Ketone, Urine Dipstick Negative Negative mg/dL [facility] Nitrite, Urine Dipstick Negative Negative [facility] Leukocytes, Urine Dipstick Negative Negative mcL [facility] Appearance, Urine Dipstick Clear Clear [facility] Specific [place] Urine Automated 1.005 1.005 - 1.030 [facility] Color, Urine Dipstick Yellow Yellow [facility] RBC, Urine 0 0 - 4 /HPF [facility] WBC, Urine 0 0 - 5 /HPF [facility] Urine 01/06/2023 7:53 AM EDT 01/06/2023 8:07 AM EDT Narrative Resulting Agency Comment Spec In Lab Sharmin Jean-Baptiste APRN URINE ORDERABLES [facility] [place] [address] * Protein/Creatinine Ratio, urine (01/06/2023 7:53 AM EDT) Creatinine, Urine 15 mg/dL [facility] Protein, Urine <6 0 - 12 mg/dL [facility] Protein / Creatinine Ratio, Urine <0.4 ratio [facility] Urine 01/06/2023 7:53 AM EDT 01/06/2023 8:07 AM EDT Narrative Resulting Agency Comment Spec In Lab Sharmin L Estiven CATERING SERVICE MANAGER URINE ORDERABLES [facility] [place] [address] * Differential, Automated (01/06/2023 7:47 AM EDT) Neutrophil % 58.1 % [facility] Neutrophil Absolute 2.75 1.70 - 6.10 x10(3)/[facility] Lymph % 28.5 % [facility] Lymphocytes Abs 1.4 0.9 - 3.2 x10(3)/[facility] Monocyte % 10.1 % [facility] Monocyte Abs 0.5 0.3 - 0.9 x10(3)/[facility] Eos % 2.5 % [facility] Eosinophils Abs 0.1 0.0 - 0.4 x10(3)/[facility] Basophil % 0.6 % [facility] Baso Absolute 0.0 0.0 - 0.1 x10(3)/[facility] Immature Gran % 0.20 % [facility] Comment: Immature granulocytes(IG's)percentage and absolute count will include metamyelocytes, myelocytes, and promyelocytes. Blood smears from CBCs yielding IG's will be scanned manually for concordance. If this scan disagrees with the automated IG or if promyelocytes are noted, a manual differential will be performed. Immature Gran Absolute 0.01 0.00 - 0.04 x10(3)/[facility] Blood 01/06/2023 7:47 AM EDT 01/06/2023 7:53 AM EDT Narrative Resulting Agency Comment Spec In Lab Sharmin L Estiven CATERING SERVICE MANAGER HEMATOLOGY ORDERA BLES [facility] [place] [address] * (ABNORMAL) Hemogram (01/06/2023 7:47 AM EDT) White Blood Cell 4.7 4.0 - 9.5 x10(3)/mc L [facility] Red Blood Cell 4.85 4.00 - 5.21 x10(6)/mc L [facility] Hemoglobin 14.0 11.7 - 15.5 g/dL [facility] Hematocrit 44.6 35.7 - 45.8 % [facility] Mean Cell Volume 92.0 82.6 - 94.4 fL [facility] Mean Cell Hemoglobin 28.9 27.1 - 32.0 pg [facility] Mean Cell Hemoglobin Concentration 31.4(L) 31.7 - 35.0 g/dL [facility] Platelet 273 145 - 357 x10(3)/mc L [facility] RDW Standard Deviation 51.5(H) 37.0 - 46.0 fL [facility] RDW coefficient of variation 15.3(H) 11.5 - 14.1 % [facility] Mean Platelet Volume 9.2 7.6 - 12.9 fL [facility] NRBC% auto 0.0 % [facility] NRBC Absolute 0.000 0.000 - 0.000 x10(3)/mc L [facility] Blood 01/06/2023 7:47 AM EDT 01/06/2023 7:53 AM EDT Narrative Resulting Agency Comment Spec In Lab Sharmin Knight Estiven CATERING SERVICE MANAGER HEMATOLOGY ORDERA BLES [facility] [place] [address] * Albumin Level (01/06/2023 7:47 AM EDT) Albumin 4.1 3.2 - 5.2 g/dL [facility] Blood 01/06/2023 7:47 AM EDT 01/06/2023 7:53 AM EDT Narrative Resulting Agency Comment Spec In Lab Sharmin Jean-Baptiste CATERING SERVICE MANAGER CHEMISTRY ORDERAB LES [facility] [place] [address] * (ABNORMAL) Basic Metabolic Panel (non-fasting) (01/06/2023 7:47 AM EDT) Glucose 85 65 - 199 mg/dL [facility] Comment:Diabetes: >=200 mg/d L plus symptoms Blood Urea Nitrogen 18 8 - 18 mg/dL [facility] Creatinine 1.28(H) 0.70 - 1.20 mg/dL [facility] Sodium 141 135 - 145 mmol/L [facility] Potassium 4.6 3.5 - 5.0 mmol/L [facility] Comment: Please note: ??Patients with WBC >100,000 may have falsely elevated Potassium levels. ??For accurate Potassium quantification in these patients send serum separator tube (gold top) for subsequent determinations. ??Contact the Clinical Chemistry Laboratory if there are any questions. Chloride 108(H) 98 - 107 mmol/L [facility] Carbon Dioxide 25 22 - 31 mmol/L [facility] Anion Gap 8 5 - 15 mmol/L [facility] Calcium 10.2 8.5 - 10.5 mg/dL [facility] Est Glomerular Filtration Rate 52(L) >=60 mL/min/1. 73 m?? [facility] Comment: This patient's estimated GFR was [...] Comment Spec In Lab Sharmin L Estiven CATERING SERVICE MANAGER CHEMISTRY ORDERAB LES Performing Organization Address City/[facility] Co de Phone Number [facility] [place] [address] * Ferritin (01/06/2023 7:47 AM EDT) Ferritin 38 15 - 150 ng/mL [facility] Comment: Pediatric reference ranges not verified at [facility], interpret with caution. Reference ranges for females greater than 50 years of age approach values for men, i.e., 30-400 ng/mL. Blood 01/06/2023 7:47 AM EDT 01/06/2023 7:53 AM EDT Narrative Resulting Agency Comment Spec In Lab Sharmin L Estiven CATERING SERVICE MANAGER CHEMISTRY ORDERAB LES Performing Organization Address [facility] Co de Phone Number [facility] [place] [address] * Iron and TIBC (01/06/2023 7:47 AM EDT) Iron 95 30 - 150 mcg/dL [facility] TIBC 347 250 - 450 mcg/dL [facility] Iron Saturation 27 20 - 50 % [facility] Blood 01/06/2023 7:47 AM EDT 01/06/2023 7:53 AM EDT Narrative Resulting Agency Comment Spec In Lab Sharmin L Estivne CATERING SERVICE MANAGER CHEMISTRY ORDERAB LES Performing Organization Address City/[facility]/ZIP Co de Phone Number [facility] [place] [address] * Phosphorus (01/06/2023 7:47 AM EDT) Phosphorus 2.5 2.5 - 4.5 mg/dL [facility] Blood 01/06/2023 7:47 AM EDT 01/06/2023 7:53 AM EDT Narrative Resulting Agency Comment Spec In Lab Sharmin L Estiven CATERING SERVICE MANAGER CHEMISTRY ORDERAB LES Performing Organization Address City/[facility]/ZIP Co de Phone Number [facility] [place] [address] * (ABNORMAL) PTH (01/06/2023 7:47 AM EDT) Parathyroid Hormone 109(H) 15 - 65 pg/mL [facility] Blood 01/06/2023 7:47 AM EDT 01/06/2023 7:53 AM EDT Narrative Resulting Agency Comment Spec In Lab Sharmin Jean-Baptiste CATERING SERVICE MANAGER CHEMISTRY ORDERAB LES [facility] [place] [address] * Vitamin D, 25-Hydroxy (01/06/2023 7:47 AM EDT) Vitamin D Total 25 OH 36 21 - 100 ng/mL [facility] Vit D Interp Sufficient [facility] Blood 01/06/2023 7:47 AM EDT 01/06/2023 7:53 AM EDT Narrative Resulting Agency Comment Spec In Lab Sharmin Jean-Baptiste CATERING SERVICE MANAGER CHEMISTRY ORDERAB LES [facility] [place] [address] documented in this encounter Visit Diagnoses Diagnosis Stage 3b chronic kidney disease (CKD) documented in this encounter Care Teams Concrete Pourer Relationship Specialty Start Date End Date Haylie Steward MD [facility] [place] [address] PCP - General General Internal Medicine 08/04/22 documented as of this encounter
--- OUTSIDE RECORDS SUMMARY | 2024-04-22 00:25 | XMS_ITS | Encounter Summary ---
Author Organization [facility] [place] [address] Care Team Providers Care Theatrical Dresser Name Role Phone Haylie Steward MD Primary Care Provider [phone] Encounter Details Date Type Department Care Team (Latest Contact Info) Description 09/26/2022 Travel Social History Tobacco Use Types Packs/Day [...] Scheduled View Only Radiation Oncology at [address] [phone] 04/25/2024 8:30 AM EST Scheduled View Only Radiation Oncology at [address] [phone] 04/26/2024 3:00 PM EST Scheduled View Only Radiation Oncology at [address] [phone] 04/26/2024 3:30 PM EST Office Visit Radiation Oncology at [address] [phone] Ofe Fonseca MD [facility] [place] [address] 04/28/2024 2:45 PM EST Scheduled View Only Radiation Oncology at [address] [phone] 04/29/2024 3:00 PM EST Scheduled View Only Radiation Oncology at [address] [phone] 05/02/2024 3:45 PM EST Scheduled View Only Radiation Oncology at [address] [phone] 05/03/2024 1:45 PM EST Scheduled View Only Radiation Oncology at [address] [phone] 05/03/2024 2:15 PM EST Office Visit Radiation Oncology at [address] [phone] Ofe Fonseca MD [facility] [place] [address] 05/05/2024 8:15 AM EST Scheduled View Only Radiation Oncology at [address] [phone] 05/06/2024 12:30 PM EST Scheduled View Only Radiation Oncology at [address] [phone] 05/09/2024 3:00 PM EST Scheduled View Only Radiation Oncology at [address] [phone] 05/10/2024 2:30 PM EST Scheduled View Only Radiation Oncology at [address] [phone] 05/10/2024 3:15 PM EST Office Visit Radiation Oncology at [address] [phone] Ofe Fonseca MD [facility] [place] [address] 05/11/2024 2:45 PM EST Scheduled View Only Radiation Oncology at [address] [phone] 06/03/2024 3:30 PM EST [place] [phone] Mira Hutchison, [facility] [place] [address] 06/23/2024 4:00 PM EST Appointment Mammography/[place] [phone] Miryam Feliciano MD [facility] [place] [address] 07/12/2024 8:00 AM EDT Laboratory Appointment Lab [address] [place] [phone] 07/12/2024 9:30 AM EDT Office Visit Ne[place] [phone] Sharmin Jean-Baptiste [facility] [place] [address] 07/13/2024 10:30 AM EDT Laboratory Appointment Lab at [facility] Hematology Oncology [address] [place] [phone] 07/13/2024 11:30 AM EDT Office Visit Hematology [place] [address] Salena Alvares APRN [facility] [place] [address] 07/13/2024 12:45 PM EDT Appointment Hematology [place] [phone] documented as of this encounter Visit Diagnoses Not on filedocumented in this encounter Care Teams Theatrical Dresser Relationship Specialty Start Date [place] [address] PCP - General General Internal Medicine 08/04/22 documented as of this encounter
--- OUTSIDE RECORDS SUMMARY | 2024-04-22 00:25 | XMS_ITS | Encounter Summary ---
[place] [address] Care Team Providers Care Laborer Poultry Hatchery Name Role Phone Haylie Steward MD Primary Care Provider [phone] Reason for Referral * Consultation (Routine) - Closed Specialty Diagnoses / Procedures Referred By Contac t Referred To Contact Obstetrics and Gynecology Diagnoses Menometrorrhagia Haylie Steward MD [facility] [place] [address] [facility] [address] [place] [address] Referral ID Status Reason Start Date Expiration Date V isits Requested Visits Authorized [id number] Closed Consult, Test & Treat PCP Updated and/or Approved 01/07/2023 01/07/2024 12 12 Encounter Details Date Type Department Care Team (Late st Contact Info) Description 01/07/2023 Transcribe Orders eDH Incoming Referrals [phone] Haylie Steward MD [facility] [place] [address] Menometrorrhagia Social History Tobacco Use Types Packs/Day Years [...] Scheduled View Only Radiation Oncology at [address] [phone] 04/25/2024 8:30 AM EST Scheduled View Only Radiation Oncology at [address] [phone] 04/26/2024 3:00 PM EST Scheduled View Only Radiation Oncology at [address] [phone] 04/26/2024 3:30 PM EST Office Visit Radiation Oncology at [address] [phone] Ofe Fonseca MD [facility] [place] [address] 04/28/2024 2:45 PM EST Scheduled View Only Radiation Oncology at [address] [phone] 04/29/2024 3:00 PM EST Scheduled View Only Radiation Oncology at [address] [phone] 05/02/2024 3:45 PM EST Scheduled View Only Radiation Oncology at [address] [phone] 05/03/2024 1:45 PM EST Scheduled View Only Radiation Oncology at [address] [phone] 05/03/2024 2:15 PM EST Office Visit Radiation Oncology at [address] [phone] Ofe Fonseca MD [facility] [place] [address] 05/05/2024 8:15 AM EST Scheduled View Only Radiation Oncology at [address] [phone] 05/06/2024 12:30 PM EST Scheduled View Only Radiation Oncology at [address] [phone] 05/09/2024 3:00 PM EST Scheduled View Only Radiation Oncology at [address] [phone] 05/10/2024 2:30 PM EST Scheduled View Only Radiation Oncology at [address] [phone] 05/10/2024 3:15 PM EST Office Visit Radiation Oncology at [address] [phone] Ofe Fonseca MD [facility] [place] [address] 05/11/2024 2:45 PM EST Scheduled View Only Radiation Oncology at [address] [phone] 06/03/2024 3:30 PM EST [place]oint[place] [phone] Mira Hutchison APRN [facility] [address] 06/23/2024 4:00 PM EST Appointment Mammography/[place] [phone] Miryam Feliciano MD [facility] [place] [address] 07/12/2024 8:00 AM EDT Laboratory Appointment Lab [address] [address] 07/12/2024 9:30 AM EDT Office Visit [place] [phone] Sharmin Jean-Baptiste, [facility] [place] [address] 07/13/2024 10:30 AM EDT Laboratory Appointment Lab at [facility] Hematology Oncology [address] [place], [place] [phone] 07/13/2024 11:30 AM EDT Office Visit Hematology [place] [phone] Salena Alvares [facility] [place] [address] 07/13/2024 12:45 PM EDT Appointment Hematology and Oncology at [place] [phone] Scheduled Referrals Name Type Priority Associated Diagnoses Orde r Schedule Referral to Ob-Fruit Rancher Outpatient Referral Routine Menometrorrhagia Ordered: 01/07/2023 documented as of this encounter Visit Diagnoses Diagnosis Menometrorrhagia Excessive or frequent menstruation documented in this encounter Care Teams Laborer Poultry Hatchery Relationship Specialty Start Date End Date Haylie Steward MD [facility] [place] [address] PCP - General General Internal Medicine 08/04/22 documented as of this encounter
--- OUTSIDE RECORDS SUMMARY | 2024-04-22 00:25 | XMS_ITS | Encounter Summary ---
Author Organization [facility] [place] [address] Care Team Providers Care Promotions Team Leader Name Role Phone Haylie Steward MD Primary Care Provider [phone] Encounter Details Date Type Department Care Team (Late st Contact Info) Description 11/10/2022 Interpretation Only [address] [phone] Haylie Steward [place] [address] [place] [address] Social History Tobacco Use Types Packs/Day Years [...] EST Scheduled View Only Radiation Oncology at [address] [phone] 04/25/2024 8:30 AM EST Scheduled View Only Radiation Oncology at [address] [address] 04/26/2024 3:00 PM EST Scheduled View Only Radiation Oncology at [address] [address] 04/26/2024 3:30 PM EST Office Visit Radiation Oncology at [address] [address] Ofe Fonseca MD [facility] RADIATION [place] [address] 04/28/2024 2:45 PM EST Scheduled View Only Radiation Oncology at [address] [phone] 04/29/2024 3:00 PM EST Scheduled View Only Radiation Oncology at [address] [address] 05/02/2024 3:45 PM EST Scheduled View Only Radiation Oncology at [address] [address] 05/03/2024 1:45 PM EST Scheduled View Only Radiation Oncology at [address] [address] 05/03/2024 2:15 PM EST Office Visit Radiation Oncology at [address] [address] Ofe Fonseca MD [facility] [place] [address] 05/05/2024 8:15 AM EST Scheduled View Only Radiation Oncology at [address] [address] 05/06/2024 12:30 PM EST Scheduled View Only Radiation Oncology at [address] [address] 05/09/2024 3:00 PM EST Scheduled View Only Radiation Oncology at [address] [address] 05/10/2024 2:30 PM EST Scheduled View Only Radiation Oncology at [address] [address] 05/10/2024 3:15 PM EST Office Visit Radiation Oncology at [address] [address] Ofe Fonseca MD [facility] [place] [address] 05/11/2024 2:45 PM EST Scheduled View Only Radiation Oncology at [address] [address] 06/03/2024 3:30 PM EST Appointment Ultrasound at [place] [phone] Mira Hutchison CLINICAL DOCUMENTATION NURSE [facility] [place] [address] 06/23/2024 4:00 PM EST Appointment Mammography/DXA at [place] [phone] Miryam Feliciano MD [facility] [place] [address] 07/12/2024 8:00 AM EDT Laboratory Appointment Lab [address] [phone] 07/12/2024 9:30 AM EDT Office Visit Nephrology Hypertension at [place] [phone] Sharmin Jean-Baptiste CLINICAL DOCUMENTATION NURSE [facility] [place] [address] 07/13/2024 10:30 AM EDT Laboratory Appointment Lab at [facility] Hematology Oncology [address] [place] [phone] 07/13/2024 11:30 AM EDT Office Visit [place] [phone] Salena Alvares APRN [facility] DR MEDICAL ONCOLOGY [place] [phone] 07/13/2024 12:45 PM EDT Appointment [place] [phone] documented as of this encounter Procedures Procedure Name Priority Date/Time Associated Diagnosis Comments MAMMO SCREENING CAD AND EDWARD BILATERAL Routine 11/10/2022 1:35 PM EDT documented in this encounter Results * Mammo Screening Cad and Edward Bilateral (11/10/2022 1:35 PM EDT) PT CLASS O DH RAD ADMITDTTM RAD PT RAD MD INFO [id number]^STEWARD^ HAYLIE RAD EXAM DESC MADDSCTO^BREAST SCREEN TOMOSYNTHESIS BI^RIS RAD Anatomical Region Laterality Modality Breast Bilateral Mammography Impressions 11/24/2022 9:39 AM EDT BI-RADS category 1: negative- No mammographic evidence of malignancy. RECOMMENDATION: Routine annual screening * Regular screening mammograms starting between age 40 and 50 reduces the risk of from breast cancer. * All screening tests have both risks and benefits. These risks and benefits should be assessed for each individual patient through discussion with their provider to determine their preferred breast cancer screening schedule. * Women should report any breast changes to a health care provider right away. * Some women, because of their family [...] who have questions please contact the health pharmacy customer care specialist that requested your imaging first. Thank you for letting us participate in the care of this patient. ??If you are a health care provider and have any questions regarding this report, please contact the number below. ??For patients who have questions please contact the health pharmacy customer care specialist that requested your imaging first. ? Narrative 11/24/2022 9:39 AM EDT EXAMINATION: BREAST SCREEN TOMOSYNTHESIS BI CLINICAL HISTORY: screening mammo Family history of breast cancer: None Reproductive history: Nulliparous No personal history of breast cancer. COMPARISON: Previous mammograms were reviewed. TECHNIQUE: Bilateral MLO and CC digital mammograms were obtained and reviewed with CAD. 2-D and 3-D tomosynthesis images were obtained. FINDINGS: There are no suspicious microcalcifications, masses, or areas of distortion. No changes compared to prior studies. Breast density: The breasts are heterogeneously dense, which may obscure small masses. Procedure Note Mario Lee MD - 11/24/2022 EXAMINATION: BREAST SCREEN TOMOSYNTHESIS BI CLINICAL HISTORY: screening mammo Family history of [...] a woman is in good health and isexpected to live 10 years or longer. * Screening mammography may not detect 10-15% of breast cancers. Thank you for letting us participate in the care of this patient. If youare a health care provider and have any questions regarding this report,please contact the number below. For patients who have questions please contactthe health pharmacy customer care specialist that requested your imaging first. Thank you for letting us participate in the care of this patient. If youare a health care provider and have any questions regarding this report,please contact the number below. For patients who have questions please contactthe health pharmacy customer care specialist that requested your imaging first. Haylie Steward MD IMG MAMMO ORDERABLES documented in this encounter Visit Diagnoses Not on filedocumented in this encounter Care Teams Promotions Team Leader Relationship Specialty Start Date End Date Haylie Steward MD [facility] [place] [address] PCP - General General Internal Medicine 08/04/22 documented as of this encounter
--- OUTSIDE RECORDS SUMMARY | 2024-04-22 00:25 | XMS_ITS | Encounter Summary ---
Author Organization [facility] [place] [address] Care Team Providers Care Community Associate Name Role Phone Haylie Steward MD Primary Care Provider [phone] Encounter Details Date Type Department Care Team (Latest Contact Info) Description 01/05/2023 Travel Social History Tobacco Use Types Packs/Day [...] Scheduled View Only Radiation Oncology at [address] [address] 04/25/2024 8:30 AM EST Scheduled View Only Radiation Oncology at [address] [phone] 04/26/2024 3:00 PM EST Scheduled View Only Radiation Oncology at [address] [address] 04/26/2024 3:30 PM EST Office Visit Radiation Oncology at [address] [address] Ofe Fonseca MD [facility] [place] [address] 04/28/2024 2:45 PM EST Scheduled View Only Radiation Oncology at [address] [address] 04/29/2024 3:00 PM EST Scheduled View Only Radiation Oncology at [address] [address] 05/02/2024 3:45 PM EST Scheduled View Only Radiation Oncology at [address] [phone] 05/03/2024 1:45 PM EST Scheduled View Only Radiation Oncology at [address] [address] 05/03/2024 2:15 PM EST Office Visit Radiation Oncology at [address] [address] Ofe Fonseca MD [facility] [address] 05/05/2024 8:15 AM EST Scheduled View Only Radiation Oncology at [address] [address] 05/06/2024 12:30 PM EST Scheduled View Only Radiation Oncology at [address] [address] 05/09/2024 3:00 PM EST Scheduled View Only Radiation Oncology at [address] [address] 05/10/2024 2:30 PM EST Scheduled View Only Radiation Oncology at [address] [address] 05/10/2024 3:15 PM EST Office Visit Radiation Oncology at [address] [phone] Ofe Fonseca MD [facility] [place] [address] 05/11/2024 2:45 PM EST Scheduled View Only Radiation Oncology at [address] [phone] 06/03/2024 3:30 PM EST [place] [phone] Mira Hutchison, [facility] [address] 06/23/2024 4:00 PM EST Appointment Mammography/[place] [phone] Miryam Feliciano MD [facility] [place] [address] 07/12/2024 8:00 AM EDT Laboratory Appointment Lab [address] [place] [phone] 07/12/2024 9:30 AM EDT Office Visit Ne[place] [phone] Sharmin Jean-Baptiste [facility] [place] [address] 07/13/2024 10:30 AM EDT Laboratory Appointment Lab at [facility] Hematology Oncology [address] [place] [phone] 07/13/2024 11:30 AM EDT Office Visit Hematology [place] [address] Salena Alvares APRN [facility] [place] [address] 07/13/2024 12:45 PM EDT Appointment Hematology [place] [phone] documented as of this encounter Visit Diagnoses Not on filedocumented in this encounter Care Teams Community Associate Relationship Specialty Start Date [place] [address] PCP - General General Internal Medicine 08/04/22 documented as of this encounter
--- OUTSIDE RECORDS SUMMARY | 2024-04-22 00:25 | XMS_ITS | Encounter Summary ---
Author Organization [facility] [place] [address] Care Team Providers Care District Associate Judge Name Role Phone Haylie Steward MD Primary Care Provider + [phone] Encounter Details Date Type Department Care Team (Late st Contact Info) Description 12/15/2022 Orders Only [place] [phone] Betina Varma, [employer] [facility] [place] [address] Social History Tobacco Use Types Packs/Day Years Used Date Smoking Tobacco: Never Smokeless Tobacco: Never Alcohol Use Standard Drinks/Week Comments Not Currently 0 (1 standard drink = 0.6 oz pur e alcohol) [facility] Inpatient Questions Answer Date [...] EST Scheduled View Only Radiation Oncology at [address] [address] 04/25/2024 8:30 AM EST Scheduled View Only Radiation Oncology at [address] [phone] 04/26/2024 3:00 PM EST Scheduled View Only Radiation Oncology at [address] [phone] 04/26/2024 3:30 PM EST Office Visit Radiation Oncology at [address] [address] Ofe Fonseca MD [facility] RADIATION [place] [address] 04/28/2024 2:45 PM EST Scheduled View Only Radiation Oncology at [address] [phone] 04/29/2024 3:00 PM EST Scheduled View Only Radiation Oncology at [address] [address] 05/02/2024 3:45 PM EST Scheduled View Only Radiation Oncology at [address] [phone] 05/03/2024 1:45 PM EST Scheduled View Only Radiation Oncology at [address] [address] 05/03/2024 2:15 PM EST Office Visit Radiation Oncology at [address] [address] Ofe Fonseca MD [facility] [place] [address] 05/05/2024 8:15 AM EST Scheduled View Only Radiation Oncology at [address] [address] 05/06/2024 12:30 PM EST Scheduled View Only Radiation Oncology at [address] [address] 05/09/2024 3:00 PM EST Scheduled View Only Radiation Oncology at [address] [address] 05/10/2024 2:30 PM EST Scheduled View Only Radiation Oncology at [address] [address] 05/10/2024 3:15 PM EST Office Visit Radiation Oncology at [address] [address] Ofe Fonseca MD [facility] [place] [address] 05/11/2024 2:45 PM EST Scheduled View Only Radiation Oncology at [address] [address] 06/03/2024 3:30 PM EST Appointment Ultrasound at [place] [phone] Mira Hutchison [facility] [place] [address] 06/23/2024 4:00 PM EST Appointment Mammography/DXA at [place] [phone] Miryam Feliciano MD [facility] [place] [address] 07/12/2024 8:00 AM EDT Laboratory Appointment Lab [place] [phone] 07/12/2024 9:30 AM EDT Office Visit Nephrology Hypertension at [place] [phone] Sharmin Jean-Baptiste [employer] [facility] [place] [address] 07/13/2024 10:30 AM EDT Laboratory Appointment Lab [place] [facility] [place] [address] [place] [phone] 07/13/2024 11:30 AM EDT Office Visit Hematology [place] [phone] Salena Alvares APRN [facility] [place] [address] 07/13/2024 12:45 PM EDT Appointment Hematology [place] [phone] documented as of this encounter Procedures Procedure Name Priority Date/Time Associated Diagnosis Comments VARICELLA ZOSTER ANTIBODY, IGG Routine 12/15/2022 4:56 PM EDT documented in this encounter Results * Varicella zoster Antibody, IgG (12/15/2022 4:56 PM EDT) Varicella Zoster Antibody IgG Positive Positive [facility] Comment: A positive result for this assay is considered to be an indicator of positive immune status. Blood Venous Draw / Unknown 12/15/2022 4:56 PM EDT 12/16/2022 7:18 AM EDT Narrative Resulting Agency Comment Spec In Lab Betina Varma [employer] IMMUNOLOGY ORDERABLE S [facility] [place] [address] documented in this encounter Visit Diagnoses Not on filedocumented in this encounter Care Teams District Associate Judge Relationship Specialty Start Date End [place] [address] [place] [address] PCP - General General Internal Medicine 08/04/22 documented as of this encounter
--- OUTSIDE RECORDS SUMMARY | 2024-04-22 00:25 | XMS_ITS | Encounter Summary ---
Author Organization [facility] [address] Care Team Providers Care Multimedia Specialist Name Role Phone Haylie Steward MD Primary Care Provider + [phone] Encounter Details Date Type Department Care Team (Latest Contact Info) Description 10/01/2022 1:20 PM EDT - 10/01/2022 11:59 PM EDT Hospital [place] [address] [place] [address] Stage 3b chronic kidney disease (CKD) Discharge Disposition: Home Social History Tobacco Use Types Packs/Day Years Used Date Smoking Tobacco: Never Smokeless Tobacco: Never Alcohol Use Standard Drinks/Week Comments Not Currently 0 (1 standard drink = 0.6 oz pur e alcohol) [facility] Inpatient Questions Answer Date Recorded [...] mouth 3 times daily. 60 tablet 2 10/13/2022 01/01/2023 divalproex ER (Depakote ER) 250 mg ER 24 hr tablet 2 tabs BID. 120 tablet 02 09/25/2022 11/05/2022 ferrous sulfate EC (FeroSul) 325 mg (65 mg iron) DR tablet Take 1 tablet by mouth daily. 30 tablet 3 09/10/2022 12/05/2022 Alosetron (Lotronex) 0.5 mg tablet Take 0.5 mg by mouth 2 times daily. 07/24/2022 07/07/2023 buPROPion XL (Wellbutrin XL) 150 mg XL 24 hr tablet Take 150 mg by mouth every morning. 06/13/2022 10/22/2022 levothyroxine (Synthroid) 75 mcg tablet Take 75 mcg by mouth every morning. 07/18/2022 11/14/2022 documented as of this encounter Plan of Treatment Upcoming Encounters Date Type Department Care Team (Latest Contact Info) Description 04/22/2024 9:45 AM EST Scheduled View Only Radiation Oncology at [address] [phone] 04/25/2024 8:30 AM EST Scheduled View Only Radiation Oncology at [address] [address] 04/26/2024 3:00 PM EST Scheduled View Only Radiation Oncology at [address] [address] 04/26/2024 3:30 PM EST Office Visit Radiation Oncology at [address] [address] Ofe Fonseca MD [facility] [place] [address] 04/28/2024 2:45 PM EST Scheduled View Only Radiation Oncology at [address] [phone] 04/29/2024 3:00 PM EST Scheduled View Only Radiation Oncology at [address] [address] 05/02/2024 3:45 PM EST Scheduled View Only Radiation Oncology at [address] [address] 05/03/2024 1:45 PM EST Scheduled View Only Radiation Oncology at [address] [address] 05/03/2024 2:15 PM EST Office Visit Radiation Oncology at [address] [address] Ofe Fonseca MD [facility] [place] [address] 05/05/2024 8:15 AM EST Scheduled View Only Radiation Oncology at [address] [address] 05/06/2024 12:30 PM EST Scheduled View Only Radiation Oncology at [address] [address] 05/09/2024 3:00 PM EST Scheduled View Only Radiation Oncology at [address] [address] 05/10/2024 2:30 PM EST Scheduled View Only Radiation Oncology at [address] [address] 05/10/2024 3:15 PM EST Office Visit Radiation Oncology at [address] [phone] Ofe Fonseca MD [facility] [place] [address] 05/11/2024 2:45 PM EST Scheduled View Only Radiation Oncology at [address] [phone] 06/03/2024 3:30 PM EST [place] [phone] Mira Hutchison, [facility] [place] [address] 06/23/2024 4:00 PM EST Appointment Mammography/DXA at [place] [phone] Miryam Feliciano MD [facility] [place] [address] 07/12/2024 8:00 AM EDT Laboratory Appointment Lab [address] [place] [phone] 07/12/2024 9:30 AM EDT Office Visit Nephrology Hypertension at [place] [phone] Sharmin Jean-Baptiste [facility] [place] [address] 07/13/2024 10:30 AM EDT Laboratory Appointment Lab at [facility] Hematology Oncology [address] [place] [phone] 07/13/2024 11:30 AM EDT Office Visit Hematology [place] [phone] Salena Alvares [facility] [place] [address] 07/13/2024 12:45 PM EDT Appointment Hematology [place] [address] documented as of this encounter Procedures Procedure Name Priority Date/Time Associated Diagnosis Comments US RETROPERITONEAL COMPLETE Routine 10/01/2022 2:07 PM EDT Stage 3b chronic kidney disease (CKD) documented in this encounter Results * US Retroperitoneal Complete (10/01/2022 2:07 PM EDT) Anatomical Region Laterality Modality Abdomen Ultrasound 10/01/2022 2:08 PM EDT Impressions 10/01/2022 7:53 PM EDT 1. 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 2. ??No collecting system dilatation, bilaterally 3. ??Normal contour of the partially distended bladder. 4. ??Incompletely evaluated fibroid uterus, including nearly 7 cm posterior fibroid. Consider dedicated pelvic ultrasound for more complete characterization. I have personally reviewed the image(s) and the resident's interpretation and agree with the findings, Dawn Sanchez MD at 10/01/2022 7:46 PM Electronically signed by: Dawn Sanchez MD, [facility] ([phone]), at 10/01/2022 7:46 PM Thank you for letting us participate in the care of this patient. If you are a health care provider and have any questions regarding this report, please contact the number above. For patients who have questions, please contact the health child day care teacher that requested your imaging first. ?Dawn Sanchez Jose A [employer] Worker Electronically Signed Final Report ?? 10/01/2022 07:53 pm Narrative 10/01/2022 7:53 PM EDT Renal ? (Signed Final 10/01/2022 07:53 pm) PATIENT INFO: ID #: ? [id number] ?: ??[birth year] (47 yrs)(F) Name: ? EDYTA MORFIN ? Visit Date: 10/01/2022 02:08 pm PERFORMED BY: Attending: ?Laura NÚÑEZ, Dawn Wiseman Resident: ? Jayne NÚÑEZ, [facility] Performed By: ? Monster Bhatia RDMS Referred By: ?SHAKA HOOVER Location: ? [place] SERVICE(S) PROVIDED: URETRO - Retroperitoneal Complete - [id number] ? [id number] INDICATIONS: long-standing lithium use and CKD, requested by nephrology consultants to look for changes consistent with chronic renal damage from lithium, please coordinate with nephrology clinic (date/time currently pending) COMPARISON: No prior studies for comparison. RIGHT KIDNEY: Size (cm) ?L: ??10.1 Cortical Thickness: ?Normal Cortical Echogenicity: ?? Echogenic Hydronephrosis: ?No sonographic evidence Comment: ?Several cysts seen, largest seen in the mid pole ? measuring 1.2 x 1.3 x 1.1 cm and simple. ? Additional scattered punctate echogenic non- ? shadowing foci . LEFT KIDNEY: Size (cm) ?L: ??9.4 Cortical Thickness: ?Normal Cortical Echogenicity: ?? Echogenic Hydronephrosis: ?No sonographic evidence Comment: ?Several cysts seen, largest in the superior pole ? measuring 1.7 x 1.5 x 1.4 cm with avascular ? septation. ??Additional scattered punctate echogenic ? non-shadowing foci . URINARY BLADDER: Pre-void (cm) ? L: ??10.0 ?AP: ??4.7 ? TV: ??9.1 Vol (ml): ?223.9 Comment: ?Partially distended, normal contour. ADDITIONAL FINDINGS: Incompletely evaluated fibroid uterus, including nearly 7 cm posterior fibroid noted. Procedure Note Dawn Sanchez MD - 10/01/2022 Renal (Signed Final 10/01/2022 07:53 pm) PATIENT INFO: ID #: [id number] : [birth year] (47 yrs)(F) Name: EDYTA MORFIN Visit Date: 10/01/2022 02:08 pm PERFORMED BY: Attending: Dawn Sanchez MD Resident: Nato Godoy MD Performed By: Monster Bhatia RDMS Referred By: SHAKA HOOVER Location: [place] SERVICE(S) PROVIDED: URETRO - Retroperitoneal Complete - [id number] INDICATIONS: long-standing lithium use and CKD, requested [...] Dawn Sanchez MD at 10/01/2022 7:46 PM Electronically signed by: Dawn Sanchez MD, [facility] ([phone]), at 10/01/2022 7:46 PM Thank you for letting us participate in the care of this patient. If you are a health care provider and have any questions regarding this report, please contact the number above. For patients who have questions, please contact the health child day care teacher that requested your imaging first. Dawn Sanchez, [facility] Coke Worker Electronically Signed Final Report 10/01/2022 07:53 pm Shaka Hoover MD IMG US GEN ORDERABLE S documented in this encounter Visit Diagnoses Diagnosis Stage 3b chronic kidney disease (CKD) documented in this encounter Care Teams Multimedia Specialist Relationship Specialty Start Date End Date Haylie Steward MD [facility] [place] [address] PCP - General General Internal Medicine 08/04/22 documented as of this encounter
--- OUTSIDE RECORDS SUMMARY | 2024-04-22 00:26 | XMS_ITS | Encounter Summary ---
Author Organization [facility] [place] [address] Care Team Providers Care [employer] Supervisor Name Role Phone Hyalie Steward MD Primary Care Provider + [phone] Encounter Details Date Type Department Care Team (Late st Contact Info) Description 09/06/2022 [place] [phone] Wilmar Grande MD [facility] [place] [address] Social History Tobacco Use Types Packs/Day Years [...] encounter Miscellaneous Notes * Telephone Encounter - Wilmar Grande MD - 09/06/2022 1:12 PM EDT Brief psychiatry DOP note: I received a call from the lab that this patient's lithium level came back at 2.16. I called the patient and left a voicemail encouraging her to call the hospital. I informed the oncall sales consultant residential manager about the situation. Wilmar Grande MD PGY3 documented in this encounter Plan of Treatment Upcoming Encounters Date Type Department Care Team (Latest Contact Info) Description 04/22/2024 9:45 AM EST Scheduled View Only Radiation Oncology at [address] [phone] 04/25/2024 8:30 AM EST Scheduled View Only Radiation Oncology at [address] [phone] 04/26/2024 3:00 PM EST Scheduled View Only Radiation Oncology at [address] [phone] 04/26/2024 3:30 PM EST Office Visit Radiation Oncology at [address] [phone] Ofe Fonseca MD [facility] [place] [address] 04/28/2024 2:45 PM EST Scheduled View Only Radiation Oncology at [address] [phone] 04/29/2024 3:00 PM EST Scheduled View Only Radiation Oncology at [address] [phone] 05/02/2024 3:45 PM EST Scheduled View Only Radiation Oncology at [address] [phone] 05/03/2024 1:45 PM EST Scheduled View Only Radiation Oncology at [address] [phone] 05/03/2024 2:15 PM EST Office Visit Radiation Oncology at [address] [phone] Ofe Fonseca MD [facility] [place] [address] 05/05/2024 8:15 AM EST Scheduled View Only Radiation Oncology at [address] [phone] 05/06/2024 12:30 PM EST Scheduled View Only Radiation Oncology at [address] [phone] 05/09/2024 3:00 PM EST Scheduled View Only Radiation Oncology at [address] [phone] 05/10/2024 2:30 PM EST Scheduled View Only Radiation Oncology at [address] [phone] 05/10/2024 3:15 PM EST Office Visit Radiation Oncology at [address] [phone] Ofe Fonseca MD [facility] [place] [address] 05/11/2024 2:45 PM EST Scheduled View Only Radiation Oncology at [address] [phone] 06/03/2024 3:30 PM EST Appointment Ultrasound at [place] [phone] Mira Hutchison APRN [facility] [place] [address] 06/23/2024 4:00 PM EST Appointment Mammography/[place] [phone] Miryam Feliciano MD [facility] [place] [address] 07/12/2024 8:00 AM EDT Laboratory Appointment Lab [address] [place] [address] 07/12/2024 9:30 AM EDT Office Visit Nephrology Hypertension at [place] [phone] Sharmin Jean-Baptiste, [facility] [place] [address] 07/13/2024 10:30 AM EDT Laboratory Appointment Lab at [facility] Hematology Oncology [address] [place] [phone] 07/13/2024 11:30 AM EDT Office Visit H[place] [phone] Salena Alvares, [facility] [place] [place] [address] 07/13/2024 12:45 PM EDT Appointment Hematology [place] [phone] documented as of this encounter Visit Diagnoses Not on filedocumented in this encounter Care Teams [employer] Supervisor Relationship Specialty Start Date End Date Haylie Steward MD [facility] [place] [address] PCP - General General Internal Medicine 08/04/22 documented as of this encounter
--- OUTSIDE RECORDS SUMMARY | 2024-04-22 00:26 | XMS_ITS | Encounter Summary ---
Author Organization [facility] [place] [address] Care Team Providers Care Biology Laboratory Assistant Name Role Phone Haylie Steward MD Primary Care Provider + [phone] Reason for Visit * Reason Comments Abnormal Labs * Auth/Cert (Routine) Specialty Diagnoses / Procedures Referred By Contac t Referred To Contact Diagnoses [place] intoxication, accidental or unintentional, initial encounter Procedures EMERGENCY IPI Joaquina Vallejo MD [facility] [place] [address] [facility] Referral ID Status Reason Start Date Expiration Date Visits Re quested Visits Authorized [id number] 1 1 Encounter Details Date Type Department Care Team (Late st Contact Info) Description 09/06/2022 5:05 PM EDT - 09/09/2022 12:21 PM EDT Hospital Encounter Medical Specialites Unit Level 1 [place] [id number] Iggy Lynch MD [facility] [place] [address] Joaquina Vallejo MD [facility] [place] [address] Gaby Ramesh MD [facility] [place] [address] [place] [address] [place]tenburg intoxication, accidental or unintentional, initial encounter (Primary Dx); Stage 3b chronic kidney disease (CKD); Elevated lithium level Discharge Disposition: Home Social History Tobacco Use [...] Sign Reading Time Taken Comments Blood Pressure 143/69 09/09/2022 10:43 AM EDT Pulse 73 09/08/2022 4:30 PM EDT Temperature 36.7 ??C (98.1 ??F) 09/09/2022 1 0:43 AM EDT Respiratory Rate 16 09/09/2022 10:4 3 AM EDT Oxygen Saturation 100% 09/09/2022 10: 43 AM EDT Inhaled Oxygen Concentration - - Weight 56.2 kg (123 lb 12.8 oz) 09/09/2022 4:56 AM EDT Height 160 cm (5' 3) 09/06/2022 10:52 PM EDT Body Mass Index 21.93 09/06/2022 10:52 PM EDT documented in this encounter Discharge Summaries * Shaka Epps MD - 09/07/2022 2:00 PM EDT Discharge Summary Patient Name: Edyta Rowe Patient Age: 47 y.o. Language: Haitian Race: White Ethnicity: Not nor Admit date: 09/06/2022 Discharge date and time: 09/09/22 Attending Physician: Shaka Epps MD Discharge Physician: Shaka Epps MD Follow-up Recommendations for Providers: - given admission with lithium toxicity and progressive CKD, decision was made in conversation withinpatient psychiatry consult team, Edyta's outpatient psychiatrist and nephrology to stop lithium and convert to depakote - depakote ER started at 250 mg daily for three days, to be increased to 250 mg BID thereafter withfurther dose titration at the discretion of Dr. Monge's office - Edyta is on depakote and lamictal, please ensure careful monitoring of depakote levels given concomitant usage of these medications - given depakote initiation, baseline hepatic panel was essentially normal, save for an alkaline phosphatase of 136, hemogram showed a baseline anemia likely due to iron deficiency, Edyta is still having menses, we recommended a urine test and discussed potential risks of depakote but she declined as she was adamant she is not prengnant - amiloride was discontinued, Edyta will follow-up with nephrology clinic (appointment pending at discharge), renal ultrasound ordered as an outpatient, nephrology will order 24 hour urine testing and consider additional work-up for hyperparathyroidism - iron studies indicated anemia is likely due to iron deficiency, we started iron supplementation, CBC should be obtained in the next several months and if anemia is not resolved additional work-up (eg colonoscopy) should be undertaken, Edyta was recently told by her PCP that she would no longer beseen at her current clinic and she is looking for a new PCP, I discussed with Edyta and her mother that if she struggles to find a new PCP another provider (Dr. Monge or nephrology) could order the CBC as they will both likely need routine blood-work for their purposes - Dr. Monge's office will arrange follow-up in the next ~one week after discharge Inpatient Provider Contact Information: For questions regarding this document or issues relating to this hospitalization on the Medical Service, please contact your inpatient physician through the [facility] Merchandiser Retail Representative . Issues afterhours and on weekends will be handled by the Hospitalist staff on-call. Discharge Diagnoses (Hospital Problems) and Secondary Diagnoses (Chronic Problems): Active Hospital Problems Diagnosis ??? [place] intoxication, accidental or unintentional, initial encounter Resolved Hospital Problems No resolved problems to display. Active Non-Hospital Problems Diagnosis ??? Stage 3b chronic kidney disease (CKD) ??? Hyperparathyroidism ??? Anemia Operations/Major Procedures: Operations: Other Major Procedures: History of Presentation: Edyta Rowe is a 47 y.o. female pmh significant for bipolar disorder, hypothyroidism, OCD, and CKDthought to be related to longstanding lithium usage who presents to the ER after getting outpatientlabs and being found to have a lithium level of 2.16. ?? She recently moved to the [facility] from [place] and is living with her parents. She used to get all her care in [place]. She has been on lithium for many years and has been stable. Since moving to the [facility], she established with a distributor operator for her CKD related to chronic lithium usage. Her baseline creatinine is around 1.45.The distributor operator recommended she start amiloride after a visit on 08/04. Shortly after starting this new medication, Edyta reports several weeks of diarrhea, nausea, and worsening of her upper extremity tremors. She stated that since the symptoms started after initiating the amiloride that she stopped taking the medication to see if it would improve her symptoms. The symptoms were persistent despite holding the medication. ?? She saw an outpatient psychiatrist, Dr. Michelet Monge ([facility]) who ordered a lithium level which revealed a significantly elevated lithium level of 2.16 and she was recommended to present to the ER. She reports that she has been on lithium for about 20 years and has not had a change in her dose for several years. She has never had any issues with it and reports that she has not taken any extra doses. ?? In the ER, she was found to have OLY with creatinine of 1.86 and lithium level at the ER was 2.02. Poison control was called and recommended bolus followed by maintenance fluids and checking lithium levels every 4 hours. ?? Hospital Course: # Acute lithium toxicity with resultant GI upset (diarrhea), sinus bradycardia and sinus pauses, extremity tremors # OLY on CKD stage 3b Edyta was started on aggressive IV fluid hydration. Al[place]burg was discontinued. Electrolyte panel including kidney function as well as serial lithium measurements were monitored frequently to ensure resolution of acute lithium toxicity. Serum creatine was 1.86 on admission (relative to her baseline of ~1.3 to 1.5). Poison control was also consulted. Edyta had normalization of lithium levels by discharge. Edyta did experience pauses on telemetry monitoring which resolved with treatment of acute lithium toxicity. GI symptoms and tremor also resolved. She did not have hemodynamic instability or symptoms due to sinus pauses. Case was discussed with cardiology who recommended treatment of acute lithium toxicity and no further intervention for the arrhythmia. Psychiatry was consulted and in discussion with Edyta's outpatient psychiatrist, Dr. Monge, she will be started on depakote at discharge,in place of lithium. Nephrology was consulted and agreed with discontinuation of amiloride. As no change in lithium dose was undertaken for many months prior to admission, we ultimately feel her presentation was due to initiation of amiloride, vis a vis diuretic effect and/or diarrhea and dehydration leading to decreased renal clearance and lithium accumulation. #Hyperparathyroidism Calcium was as high as 10.3 this admission and 10.8 in June. PTH was 143. As discussed with theinpatient nephrology consult service, they will pursue additional work-up in clinic. #Chronic normocytic anemia Iron studies were consistent with iron deficiency anemia (ferritin 11, iron 25). She was started oniron sulfate daily. She may also have some amount of anemia of chronic kidney disease. As above, she should have another CBC done in the next few months and if anemia is persistent, additional work-up should be considered (eg age appropriate colonoscopy screening, further workup for anemia of chronic kidney disease). ?? #Bipolar d/o #OCD The patient is followed by Dr. Michelet Monge with [facility]. She has been stable on her dose of lithium for years. She was continued on her home doses of Wellbutrin and Lamictal. Once her acute toxicity was treated, inpatient psychiatry was consulted and recommended transition from lithium to depakote, as discussed above. Vital Signs at Discharge: BP: 143/69, Heart Rate: 73, Temp: 36.7 ??C (98.1 ??F), Resp: 16, BMI (Calculated): 22.03 Height: 160 cm (5' 3) (09/06/22 2252) Weight: 56.2 kg (123 lb 12.8 oz) (09/09/22455) Functional and Cognitive Status: Intact Important Studies and Lab Data: Labs: Recent Labs 09/09/2244509/08/2215409/07/22154 WBC 6.4 9.3 9.0 HGB 10.1* 10.2* 9.5* HCT 35.6* 36.4 33.3* PLATELET 289 303 277 Recent Labs 09/09/2244509/08/2215409/07/22 1234 NA 145 145 145 K 4.5 4.5 4.3 CL 115* 117* 118* CO2 22 18* 20* BUN 14 11 11 CREATININE 1.71* 1.57* 1.61* Recent Labs 09/07/22154 AST 10 13 ALT 11 15 ALKPHOS 136* 134* BILITOT <0.2* <0.2* BILIDIR 0.1 Recent Labs 09/09/2244509/08/2215409/07/22 1234 CALCIUM 10.3 10.2 10.0 PHOS 3.6 3.1 2.6 No results for input(s): PT, INR, PTT in the last 168 hours. No results for input(s): CK, TROPONINT in the last 168 hours. Pending Studies and Lab Data: - n/a Discharge Conditions/Prognosis: - lithium toxicity - resolved Discharge to: Home Updated Allergies/ADRs: Allergies Allergen Reactions ??? Nsaids (Non-Steroidal Anti-Inflammatory Drug) All interfere with lithium All interfere with lithium Immunizations Given this Hospitalization: There is no immunization history on file for this patient. Discharge Medications: Your Medications New Medications Dose Details divalproex ER 250 mg ER 24 hr tablet Commonly known as: Depakote ER Take 1 tablet by mouth daily for 3 days, THEN 1 tablet 2 times daily for 30 days. Start taking on: September 09, 2022 Quantity: 63 tablet Refills: 0 ferrous sulfate EC 325 mg (65 mg iron) DR tablet Commonly known as: FeroSul Take 1 tablet by mouth daily. Start taking on: September 10, 2022 325 mg Quantity: 30 tablet Refills: 3 Continued medications, unchanged Dose Details Alosetron 0.5 mg tablet Commonly known as: Lotronex Take 0.5 mg by mouth 2 times daily. 0.5 mg Refills: 0 buPROPion XL 150 mg XL 24 hr tablet Commonly known as: Wellbutrin XL Take 150 mg by mouth every morning. 150 mg Refills: 0 clonazePAM 0.5 mg tablet Commonly known as: KlonoPIN Take 0.5 mg by mouth daily as needed. TAKE 1 TABLET BY MOUTH ONCE DAILY NEEDED FOR ANXIETY AND FOR INSOMNIA 0.5 mg Refills: 0 * lamoTRIgine 200 mg tablet Commonly known as: LaMICtal Take 200 mg by mouth nightly. 200 mg Refills: 0 * lamoTRIgine 100 mg tablet Commonly known as: LaMICtal Take 50 mg by mouth every morning. 50 mg Refills: 0 levothyroxine 75 mcg tablet Commonly known as: Synthroid Take 75 mcg by mouth every morning. 75 mcg Refills: 0 * This list has 2 medication(s) that are the same as other medications prescribed for you. Read thedirections carefully, and ask your doctor or other care provider to review them with you. STOPPED Medications aMILoride 5 mg tablet Commonly known as: Midamor famotidine 20 mg tablet Commonly known as: Pepcid lithium 300 mg capsule lurasidone 20 mg tablet Commonly known as: Latuda zolpidem 5 mg tablet Commonly known as: Ambien Smoking Status at Discharge: Social History Tobacco Use Smoking Status Never Smokeless Tobacco Never Instructions Given to Patient at Discharge: Patient Instructions Patient Instructions on Discharge to Home Why you were hospitalized - increase lithium level/lithium toxicity Call your doctor or seek medical attention if you develop the following - chest pain, shortness of breath, passing out, feeling dizzy upon standing, passing out, diarrhea, constipation lasting longerthan 2 days, fevers (temperature over 100.3), chills, abdominal pain, vomiting, difficulty or discomfort when urinating, bloody or black bowel movements, or any other acute or concerning symptom. Activity level - as tolerated Diet - as previous Driving - as previous Shower/Bath - no restrictions Wound Care - n/a Home Oxygen Therapy - n/a Medication Changes - New Medications: - iron sulfate once daily - depakote 250 mg daily for three days (09/09/22-09/11/22) then increase to 250 mg twice daily Stop these Medications: - amiloride - lithium - zolpidem - Latuda - famotidine Medications with new dose: - n/a Other Important Instructions - please ensure you fill out insurance paperwork at Dr. Monge's office this week so that you can beseen in their office moving forward - keep working on finding a primary care provider, we are sorry that our clinic currently has no openings for new patients - I have ordered a kidney ultrasound to be done after discharge, I have asked the radiology schedulers to arrange this to be done on the same day when you see the nephrology doctors in their clinic - the kidney (nephrology) clinic will call to schedule a follow-up appointment in the next few weeks, if you do not receive a call by next week please call [phone] and ask about the status of your appointment Follow-up Appointments Future Appointments Date Time Provider Department Center 11/05/2022 9:00 AM Michelet Monge MD [facility] Your Inpatient Medical Team at [facility] Name(s) of your inpatient provider(s): Shaka Epps MD For questions regarding issues relating to your hospitalization on the Hospital Medicine Service, please contact your inpatient physician through the [facility] Merchandiser Retail Representative ([phone]. Issues after hours and on weekends will be handled by the Hospitalist staff on-call. Your Primary Care Provider Haylie Steward MD [phone] General Instructions None Future Appointments and Orders Future Appointments and Orders Future Appointments Provider Department Dept Phone 11/05/2022 9:00 AM Michelet Monge MD [facility] [phone] Future Orders Complete By Expires US Retroperitoneal Complete [94440 Custom] 09/09/2022 (Approximate) 03/11/2023 Process Instructions: This exam includes imaging of both kidneys, ureters & bladder. Scheduling Instructions: Questions: Where will study be performed?: [facility] Radiology Portable exam?: Ultrasound scheduling priority: E - coordinate with appointment or 2 weeks or more out Reason for exam and clinical history: long-standing lithium use and CKD, requested by nephrology consultants to look for changes consistent with chronic renal damage from lithium please coordinate with nephrology clinic (date/time currently pending) Clinical information / guevara questions for radiologist: Stat read required?: Date of injury if applicable: Requested Time: Discharge References/Attachments None documented in this encounter Discharge Instructions * Patient Instructions* Shaka Epps MD - 09/09/2022 11:01 AM EDT Patient Instructions on Discharge to Home Why you were hospitalized - increase lithium level/lithium toxicity Call your doctor or seek medical attention if you develop the following - chest pain, shortness of breath, passing out, feeling dizzy upon standing, passing out, diarrhea, constipation lasting longerthan 2 days, fevers (temperature over 100.3), chills, abdominal pain, vomiting, difficulty or discomfort when urinating, bloody or black bowel movements, or any other acute or concerning symptom. Activity level - as tolerated Diet - as previous Driving - as previous Shower/Bath - no restrictions Wound Care - n/a Home Oxygen Therapy - n/a Medication Changes - New Medications: - iron sulfate once daily - depakote 250 mg daily for three days (09/09/22-09/11/22) then increase to 250 mg twice daily Stop these Medications: - amiloride - lithium - zolpidem - Latuda - famotidine Medications with new dose: - n/a Other Important Instructions - please ensure you fill out insurance paperwork at Dr. Monge's office this week so that you can beseen in their office moving forward - keep working on finding a primary care provider, we are sorry that our clinic currently has no openings for new patients - I have ordered a kidney ultrasound to be done after discharge, I have asked the radiology schedulers to arrange this to be done on the same day when you see the nephrology doctors in their clinic - the kidney (nephrology) clinic will call to schedule a follow-up appointment in the next few weeks, if you do not receive a call by next week please call [phone] and ask about the status of your appointment Follow-up Appointments Future Appointments Date Time Provider Department Center 11/05/2022 9:00 AM Michelet Monge MD [facility] Your Inpatient Medical Team at [facility] Name(s) of your inpatient provider(s): Shaka Epps MD For questions regarding issues relating to your hospitalization on the Hospital Medicine Service, please contact your inpatient physician through the [facility] Merchandiser Retail Representative [phone]. Issues after hours and on weekends will be handled by the Hospitalist staff on-call. Your Primary Care Provider Haylie Steward MD [phone] documented in this encounter Medications at Time of Discharge Medication Sig Dispensed Refills Start Date End Date cariprazine (Vraylar) 1.5 mg capsule 03/23/2021 lithium 300 mg capsule 04/11/202104/19 fluvoxaMINE (Luvox) 100 mg tablet 1/2 tab QD. 15 tablet 2 09/28/2022 09/28/2022 ferrous sulfate EC (FeroSul) 325 mg (65 mg iron) DR tablet Take 1 tablet by mouth daily. 30 tablet 3 09/10/2022 12/05/2022 divalproex ER (Depakote ER) 250 mg ER 24 hr tablet Take 1 tablet by mouth daily for 3 days, THEN 1 tablet 2 times daily for 30 days. 63 tablet 09/09/2022 09/25/2022 Alosetron (Lotronex) 0.5 mg tablet Take 0.5 mg by mouth 2 times daily. 07/24/2022 07/07/2023 buPROPion XL (Wellbutrin XL) 150 mg XL 24 hr tablet Take 150 mg by mouth every morning. 06/13/2022 10/22/2022 clonazePAM (KlonoPIN) 0.5 mg tablet Take 0.5 mg by mouth daily as needed. TAKE 1 TABLET BY MOUTH ONCE DAILY NEEDED FOR ANXIETY AND FOR INSOMNIA 06/13/2022 10/01/2022 lamoTRIgine (LaMICtal) 200 mg tablet Take 200 mg by mouth nightly. 07/18/2022 09/25/2022 lamoTRIgine (LaMICtal) 100 mg tablet Take 50 mg by mouth every morning. 07/18/2022 09/25/2022 levothyroxine (Synthroid) 75 mcg tablet Take 75 mcg by mouth every morning. 07/18/2022 11/14/2022 documented as of this encounter Progress Notes * Shaka Epps MD - 09/09/2022 10:52 AM EDT Hospital Medicine - Attending Day of Discharge Documentation Discharge diagnosis Active Hospital Problems Diagnosis ??? [place] intoxication, accidental or unintentional, initial encounter Resolved Hospital Problems No resolved problems to display. Secondary Issues Active Non-Hospital Problems Diagnosis ??? Stage 3b chronic kidney disease (CKD) ??? Hyperparathyroidism ??? Anemia I have personally seen and examined the patient and they are ready for discharge. I spent >30 minutes (Day of Discharge Code 18946) involved in the final examination of the patient, discussion of the hospital stay, instructions for continuing care to all relevant caregivers, and preparation of discharge records, prescriptions and referral forms. Plans ? Discharge to home ? Follow-up pending with psychiatry and nephrology ? Please see the Discharge Summary for complete details of any medication changes and additional plans. * Hal Patel MD - 09/09/2022 7:56 AM EDT Hypertension-Nephrology Inpatient Follow-up Edyta Rowe [id number] 1975 ID: 47 y.o. old female seen for lithium toxicity. Interval History: Bradycardia improved, lithium level now low. She feels okay today. Tells me that she is nervous about the potential shift to Depakote, particularly given the side effect of weight gain. Discussed herPTH and the need to monitor this and her calcium as well. Physical Examination: Last value 24 Hour Temperature Range Temp: [36.6 ??C (97.9 ??F)-37 ??C (98.6 ??F)] 12 Hour Heart Rate Range Heart Rate: -- 24 Hour Blood Pressure Range BP: (124-165)/(68-87) Respiratory Rate Resp: 16 SpO2 SpO2: 100 % Body mass index is 21.93 kg/m??. General: Patient is in no distress today, seated comfortably on the hospital couch today. HEENT: Mucous membranes moist, EOM intact, sclera clear. CV: S1 & S2 audible, no MGR Resp: Breathing comfortably on room air, CTAB. Abd: Soft, non-tender, non-distended. Ext: No edema. Skin: No rashes or lesions on the exposed skin Neuro: Alert and oriented, no focal deficits. Psych: Pleasant and calm, conversational attention is intact. Allergies Allergen Reactions ??? Nsaids (Non-Steroidal Anti-Inflammatory Drug) All interfere with lithium All interfere with lithium Lab Results Component Value Date CREATININE 1.71 (H) 09/09/2022 CREATININE 1.57 (H) 09/08/2022 CREATININE 1.61 (H) 09/07/2022 CREATININE 1.74 (H) 09/07/2022 CREATININE 1.86 (H) 09/06/2022 ESTGFR 37 (L) 09/09/2022 ESTGFR 40 (L) 09/08/2022 ESTGFR 39 (L) 09/07/2022 ESTGFR 36 (L) 09/07/2022 ESTGFR 33 (L) 09/06/2022 CO2 22 09/09/2022 CO2 18 (L) 09/08/2022 CO2 20 (L) 09/07/2022 CO2 17 (L) 09/07/2022 CO2 19 (L) 09/06/2022 NA 145 09/09/2022 NA 145 09/08/2022 NA 145 09/07/2022 NA 145 09/07/2022 NA 138 09/06/2022 K 4.5 09/09/2022 K 4.5 09/08/2022 K 4.3 09/07/2022 K 4.3 09/07/2022 K 4.5 09/06/2022 Lab Results Component Value Date UPROTCREAT <0.8 08/04/2022 Lab Results Component Value Date HGB 10.1 (L) 09/09/2022 FERRITIN 11 (L) 09/07/2022 IRONSAT 7 (L) 09/07/2022 Lab Results Component Value Date CALCIUM 10.3 09/09/2022 CALCIUM 10.2 09/08/2022 CALCIUM 10.0 09/07/2022 PHOS 3.6 09/09/2022 PHOS 3.1 09/08/2022 PHOS 2.6 09/07/2022 PTH 143 (H) 09/09/2022 25OHVITD 24 09/09/2022 Summary: Edyta Rowe is 47 y.o. yo female requiring inpatient consultation for lithium toxicity. Medical comorbidities include Bipolar I disorder on lithium since 2003, OCD, Depression, CKD III, Hypothyroidism, IBS with diarrhea. She was recently seen in CKD clinic and amiloride was added at that time to help ameliorate symptoms. ?? Agree with plan set forth by psychiatry and primary team to transition to depakote. This will surely be safer from a renal standpoint. I advised her to let her psychiatrist know if appetite/weight gain becomes an issue. ?? CKD IIIB Bipolar I on chronic lithium since 2003 [place] toxicity, resolving Hx Hypercalcemia Hyperparathyroidism (2/2 lithium v.s. a primary process) Hypothyroidism ?? - I've messaged our schedulers to help arrange followup in clinic. We will plan for renal U/S on day of appointment if scheduling allows and will consider 24 hour urine studies. - She does have vitamin D deficiency and hyperparathyroidism which we will address in the out patient setting. Please avoid NSAIDs, contrast, nephrotoxins and dose adjust renally toxic medications as able. This case was discussed with staff distributor operator Dr. Ordonez and the patient's primary team. Please contact me at phone: [phone] or pager: [phone] with any questions. Hal Patel MD Nephrology Fellow, PGY-4 Associated attestation - Roseann Ordonez MD - 09/10/2022 12:03 PM EDT I have seen and examined the patient, reviewed the relevant clinical and laboratory data and images, and discussed the case with The patient's mother, Dr Epps, and Dr Patel. His note accurately reflects our joint assessment and recommendations. 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 Renal US will be done as an outpatient. Edyta's psychiatrist Dr Monge plans to d/c lithium and trial switch to alternate medication. 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 Recommend avoid amiloride as she does not tolerate it. * Shaka Epps MD - 09/08/2022 4:38 PM EDT Hospital Medicine Attending Daily Progress Note Admit Date: 09/06/2022 Hospital Day 2 days Active Hospital Problems Diagnosis ??? [place] intoxication, accidental or unintentional, initial encounter Resolved Hospital Problems No resolved problems to display. PMH Active Non-Hospital Problems Diagnosis ??? Stage 3b chronic kidney disease (CKD) ??? Hyperparathyroidism ??? Anemia Interval History: - last pause on telemetry happened 09/07 at 21:00, none since then - no diarrhea, GI upset - fully oriented this morning and afternoon - arm/hand tremor improved ROS: denies chest pain or SOB. No palpitations. No lightheadedness or dizziness. No nausea, vomiting, abdominal pain. No headache Physical Exam Vitals Range last 24 hrs Temperature Temp: [36.4 ??C (97.5 ??F)-36.8 ??C (98.3 ??F)] Heart Rate Heart Rate: [38-73] Blood Pressure BP: (123-152)/(65-77) Respiratory Rate Resp: [16-25] SpO2 SpO2: [97 %-100 %] Intake/Output Summary (Last 24 hours) at 09/08/2022 1638 Last data filed at 09/08/2022 1600 Gross per 24 hour Intake 1380 ml Output -- Net 1380 ml Patient Vitals for the past 168 hrs: Weight 09/06/22 2252 56.4 kg (124 lb 6.4 oz) 09/06/221951 52.2 kg (115 lb) Body mass index is 22.04 kg/m??. Gen: NAD HEENT: dry mucus membranes CV: regular Lungs: clear; no crackles or wheezes Abd: soft, NT, NABS Ext: no LE edema Skin: warm, dry; no rash Neuro: mild UE tremors Psych: normal mood and affect Studies reviewed in eDH. Remarkable for the following: LABS: Recent Labs 09/08/2215409/07/22 01509/06/22 1949 WBC 9.3 9.0 8.4 HGB 10.2* 9.5* 9.8* HCT 36.4 33.3* 34.7* PLATELET 303 277 276 Recent Labs 09/08/22 01509/07/22 1234 09/07/22 0155 NA 145 145 145 K 4.5 4.3 4.3 CL 117* 118* 120* CO2 18* 20* 17* BUN 11 11 14 CREATININE 1.57* 1.61* 1.74* Recent Labs 09/07/22 0155 AST 10 13 ALT 11 15 ALKPHOS 136* 134* BILITOT <0.2* <0.2* BILIDIR 0.1 Recent Labs 09/08/22 0155 09/07/22 1234 09/07/22 0155 CALCIUM 10.2 10.0 9.5 PHOS 3.1 2.6 2.5 No results for input(s): PT, INR, PTT in the last 168 hours. No results for input(s): CK, TROPONINT in the last 168 hours. FSBG Trend No results for input(s): POCGLU in the last 72 hours. MICRO: No results for input(s): URINECULTURE in the last 720 hours. No results for input(s): GRAMSTAIN, BFCX, LOWERRESPCX, TISSUECX in the last 720 hours. No results for input(s): BLOODCX in the last 720 hours. ECG: Recent Labs 09/07/22 0404 DIAGLINE Suspect arm lead reversal, interpretation assumes no reversal Sinus bradycardia Right axis deviation Nonspecific ST and T wave abnormality Abnormal ECG No previous ECGs available Confirmed by Alyson Beaulieu MD ([id number]) on 09/07/2022 7:44:56 AM QTCCALC 409 VASCULAR: No results for input(s): VBTEXTRPT in the last 720 hours. IMAGING: No results found for this visit on 09/06/22. OTHER Studies: EKG: sinus krista 56bpm, nonspecific ST-T changes (I have reviewed) Assessment: 47 y.o. female pmh significant for bipolar disorder, hypothyroidism, OCD, and CKD 3, thought to be related to longstanding lithium usage who presents to the ER with toxic lithium level of2.16 and OLY on CKD. Of note, she was recently started on amilioride in the [facility] as her CKD in part may be due to chronic interstitial nephrosis due to longstanding lithium use, but experienced GI side effects, including diarrhea, which prompted her to stop taking amiloride. The etiology of her supratherapeutic lithium level is unclear. She denies intentional overdose. She seems reliable with medications so I doubt unintentional overdose. The amiloride may have increase her serum levels. Otherwise, given GI upset and diarrhea she may have been relatively dehydrated (although did not have OLY on admission labs) and this contributed to increased serum level. Symptoms now largely improved with discontinuation of lithium. She remains a bit encephalopathic, although seems almost back tobaseline. [place] level normalized. Psychiatry recommending ongoing hold of lithium, will attempt to speak to Edyta's outpatient psychiatrist on 09/09 regarding ongoing plan for lithium. Also will discuss/consult nephrology given the timing of amiloride initiation and resultant supratherapeutic lithium level. No longer needs step down status, okay to discontinue telemetry. Plan: # Acute [place] toxicity #Sinus pauses/bradycardia (resolved) #OLY on CKD stage 3b - sinus pauses/bradycardia are likely due to lithium toxicity further exacerbated by ongoing diarrhea, nausea, and vomiting. Possible component of hypovolemia from amilioride if adverse GI side effects from med Monitor for these GI symptoms when [place]burg levels normalize. If these persist despite normal lithium levels, will likely need more of a workup -Cardiac monitoring. Cardiology curbsided earlier and no acute management changes with the pauses noted. As no pauses since 09/07 at 21:00, discontinue telemetry and transfer to med/surg floor -daily BMP, Li level - stop IV fluids -Holding lithium -nephrology consult -do not restart amilioride -Appreciate Poison Control assistance #Chronic normocytic anemia - appears iron deficient on labs, start iron sulfate daily for component of DARRIUS #Bipolar d/o #OCD -Followed by Dr. Michelet Monge with [facility]. She has been stable on her dose of lithium for years. -HOLD lithium in setting of toxicity; further plan pending -psychiatry consultation -Continue Wellbutrin -Continue Lamictal #Hypothyroidism -Continue home levothyroxine DVT PPX: heparin SQ BID Anticipated Disposition: home when medically ready. Lives with parents. Goals of Care: Team Pager( Coverage 24/11): #[phone] PCP: Haylie Steward MD [phone] Attestation: IPI Certification I certify that I am a D-H credentialed attending provider with admitting privileges and that the patient meets or has met medical necessity to require an inpatient IPI level of care meeting a minimumof two midnights or is on the [facility] inpatient only procedure list (status C) due to: acute kidney injury necessitating close monitoring of fluid balance such as intravenous fluids and/or titration of medication to achieve optimal effect and minimize the chance of immediate or severe side effects Shaka Epps MD 09/08/2022 * Maria Elena Noriega RN - 09/08/2022 2:44 AM EDT OUTCOME EVALUATION NOTE: OUTCOME SUMMARY: Pt A&O X 3. Pt up ad manjula to bathroom frequently this shift. LR @ 150cc/hr infusing via IV pump.Heart rate krista 40-50's. Pt denies pain. Slight BUE tremor noted during venipuncture. 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 Pending results from AM [place] level. Continue to closely monitor. PLAN MOVING FORWARD: Monitor [place]burg level & cardiac observation Discharge assistance needed for teaching & scheduling for proper dose regulation. INDIVIDUALIZED FALL PREVENTION INTERVENTIONS: Patient-specific fall risk factors per assessment: [current deficits]: IV lines/pump & pole. Assistance [level of assistance required for transfers and ambulation]: Independent Supervision [direct monitoring required during toileting and ADLs]: Eyes on Surveillance [continuous indirect monitoring]: Rounds,telemetry monitoring Patient-specific fall prevention interventions for sensory deficits provided, if applicable: [X] N/A CARE PLAN GOAL OUTCOME EVALUATION: * Iggy Arcos RN - 09/07/2022 7:17 PM EDT OUTCOME EVALUATION NOTE: OUTCOME SUMMARY: Pt arrived as transfer around 8AM. AOx4, lungs clear and satting above 95% on RA. Pt krista on tele with irregular heartrate and occasional pauses, pt asymptomatic and MD aware. [place]burg level at 1200 check came back in normal range at 1.10. Pt independent in room. Voiding QS CYU in bathroom. +BM this shift. Towards end of shift pt HR sustaining in 50s-70s. BUE tremors decreasing in severity over the day. Bed in low/locked position, call christopher within reach, nonskid footwear on when OOB, safety maintained this shift. PLAN MOVING FORWARD: [place]burg lvl monitoring, telemetry monitoring, DC planning INDIVIDUALIZED FALL PREVENTION INTERVENTIONS: Patient-specific fall risk factors per assessment: [current deficits]: IV lines, monitor lines Assistance [level of assistance required for transfers and ambulation]: IND Supervision [direct monitoring required during toileting and ADLs]: Eyes on/IND Surveillance [continuous indirect monitoring]: Purposeful rounding, telemetry Patient-specific fall prevention interventions for sensory deficits provided, if applicable: [X] N/A CARE PLAN GOAL OUTCOME EVALUATION: * Gaby Ramesh MD - 09/07/2022 10:10 AM EDT Hospital Medicine Attending Daily Progress Note Admit Date: 09/06/2022 Hospital Day 1 day Active Hospital Problems Diagnosis ??? [place] intoxication, accidental or unintentional, initial encounter Resolved Hospital Problems No resolved problems to display. PMH Active Non-Hospital Problems Diagnosis ??? Stage 3b chronic kidney disease (CKD) ??? Hyperparathyroidism ??? Anemia Inpatient Medications: Scheduled ??? buPROPion XL 150 mg Oral QAM ??? famotidine 20 mg Oral BID ??? lamoTRIgine 50 mg Oral QAM ??? lamoTRIgine 200 mg Oral Nightly ??? levothyroxine 75 mcg Oral QAM ??? sodium chloride 0.9 % (flush) 5 mL Intravenous BID ??? heparin (porcine) 5,000 Units Subcutaneous 2 times per day Continuous infusions: ??? lactated Ringers 150 mL/hr (09/07/22 0845) PRN: clonazePAM, sodium chloride 0.9 % (flush), lidocaine, bisacodyL, magnesium hydroxide, acetaminophen, prochlorperazine OR prochlorperazine Interval History: admitted with lithium toxicity. Multiple pauses <2 seconds recorded. Pt asymptomatic. Patient will be moved to step down states for closer cardiac monitoring ROS: denies chest pain or SOB. No palpitations. No lightheadedness or dizziness. No nausea, vomiting, abdominal pain. No headache Physical Exam Vitals Range last 24 hrs Temperature Temp: [36.4 ??C (97.5 ??F)-36.8 ??C (98.2 ??F)] Heart Rate Heart Rate: [46-68] Blood Pressure BP: (127-152)/(50-85) Respiratory Rate Resp: [16-21] SpO2 SpO2: [98 %-100 %] Intake/Output Summary (Last 24 hours) at 09/07/2022 1010 Last data filed at 09/07/2022 0837 Gross per 24 hour Intake 2030 ml Output 2800 ml Net -770 ml Patient Vitals for the past 168 hrs: Weight 09/06/222251 56.4 kg (124 lb 6.4 oz) 09/06/221951 52.2 kg (115 lb) Body mass index is 22.04 kg/m??. Gen: NAD HEENT: dry mucus membranes CV: RRR, nl s1s2; no murmur Lungs: clear; no crackles or wheezes Abd: soft, NT, NABS Ext: no LE edema Skin: warm, dry; no rash Neuro: mild UE tremors; 5/5 b/l LE strength Psych: normal mood and affect Studies reviewed in eDH. Remarkable for the following: LABS: Recent Labs 09/07/2215409/06/22 194 WBC 9.0 8.4 HGB 9.5* 9.8* HCT 33.3* 34.7* PLATELET 277 276 Recent Labs 09/07/2215409/06/22 185 NA 145 138 K 4.3 4.5 CL 120* 110* CO2 17* 19* BUN 14 14 CREATININE 1.74* 1.86* Recent Labs 09/07/22154 AST 10 13 ALT 11 15 ALKPHOS 136* 134* BILITOT <0.2* <0.2* BILIDIR 0.1 Recent Labs 09/07/22 01509/06/22 185 CALCIUM 9.5 10.4 PHOS 2.5 -- No results for input(s): PT, INR, PTT in the last 168 hours. No results for input(s): CK, TROPONINT in the last 168 hours. FSBG Trend No results for input(s): POCGLU in the last 72 hours. MICRO: No results for input(s): URINECULTURE in the last 720 hours. No results for input(s): GRAMSTAIN, BFCX, LOWERRESPCX, TISSUECX in the last 720 hours. No results for input(s): BLOODCX in the last 720 hours. ECG: Recent Labs 09/07/22 0404 DIAGLINE Suspect arm lead reversal, interpretation assumes no reversal Sinus bradycardia Right axis deviation Nonspecific ST and T wave abnormality Abnormal ECG No previous ECGs available Confirmed by Alyson Beaulieu MD ([id number]) on 09/07/2022 7:44:56 AM QTCCALC 409 VASCULAR: No results for input(s): VBTEXTRPT in the last 720 hours. IMAGING: No results found for this visit on 09/06/22. OTHER Studies: EKG: sinus krista 56bpm, nonspecific ST-T changes (I have reviewed) Assessment: 47 y.o. female pmh significant for bipolar disorder, hypothyroidism, OCD, and CKD 3, thought to be related to longstanding lithium usage who presents to the ER with toxic lithium level of2.16 and OLY on CKD. Of note, she was recently started on amilioride in the [facility] as her CKD in part may be due to chronic interstitial nephrosis due to longstanding lithium use, but experienced GI side effects, including diarrhea, which prompted her to stop taking about 1 1/2 weeks ago. Plan: # Acute [place] toxicity #Sinus pauses #OLY on CKD stage 3b -Likely 2/2 to lithium toxicity further exacerbated by ongoing diarrhea, nausea, and vomiting. Possible component of hypovolemia from amilioride if adverse GI side effects from med Monitor for these GI symptoms when [place] levels normalize. If these persist despite normal lithium levels, will likely need more of a workup -Cardiac monitoring. Cardiology curbsided earlier and no acute management changes with the pauses noted earlier in the morning. If pauses worsen to >4 seconds, will re-discuss with them. Anticipate this will resolve with reversal of lithium toxicity. -Check BMP q4 hrs and [place] q 4 hrs for first 24 hrs -Cont LR at 150ml/hr for next 24 hrs. Reassess for additional IVF on 09/08 -Holding lithium -Consider nephro consult pending course, however no acute need for HD, lithium levels are decreasing and serum Cr is as well. She is making good UOP. -do not restart amilioride -Appreciate Poison Control assistance #Chronic normocytic anemia -Check Iron studies/B12/Folate -Check haptoglobin, retic count, LDH -Start iron sulfate daily for component of DARRIUS #Bipolar d/o #OCD -Followed by Dr. Michelet Monge with [facility]. She has been stable on her dose of lithium for years. -HOLD lithium in setting of toxicity; will need dose adjustment once levels are back to normal ranges. -Continue Wellbutrin -Continue Lamictal -Will likely need to discuss with inpatient Psychiatry here in concert with Dr. Monge about lithiumdosing when ready #Hypothyroidism -Continue home levothyroxine DVT PPX: heparin SQ BID Anticipated Disposition: home when medically ready. Lives with parents. Goals of Care: Team Pager(MD Coverage 24/11): #[phone] PCP: Haylie Steward MD [phone] Attestation: IPI Certification I certify that I am a D-H credentialed attending provider with admitting privileges and that the patient meets or has met medical necessity to require an inpatient IPI level of care meeting a minimumof two midnights or is on the [facility] inpatient only procedure list (status C) due to: acute kidney injury necessitating close monitoring of fluid balance such as intravenous fluids and/or titration of medication to achieve optimal effect and minimize the chance of immediate or severe side effects GABY RAMESH MD 09/07/2022 * Km Hilliard RN - 09/07/2022 7:38 AM EDT Pt admitted to unit at 2250. VSS. No complaints at this time. Pt w/ tremors in B/L UE with arms at rest at side. No tremors anywhere else. Tele monitor applied. Skin check completed, skin cdi. Urine yellow and clear, near colorless. No edema present. Call for critical lithium called in at 02:51. Provider notified of lithium level of 1.52. Pt had five pauses on tele tonight. 2 sec, 1.9 sec, 2 sec, 2.1 sec, 2.3 sec. W/ heart rate dropping into the 40s unsustained. Pt remains asymptomatic. VSS. Provider paged. Pt had three more pauses all around 2 seconds within 1 minute. Provider paged. 7 pauses of 1.5 seconds in ~10 minutes. VSS. NÚÑEZ paged. Orders in for pt to transfer to stepdown forfurther monitoring. documented in this encounter H&P Notes * Joaquina Vallejo MD - 09/06/2022 11:09 PM EDT [facility] Adult Inpatient Medicine Admission History and Physical Patient Name: Edyta Rowe Date of : 1975 Age/Gender 47 y.o. female PCP Haylie Steward MD [phone] ER Provider [place] Date of Admission 09/06/2022 ( Hospital Day 1 day ) Admitting Provider Joaquina Vallejo MD Service: Medicine PATIENT ID 47 y.o. female with pmh significant for bipolar disorder, hypothyroidism, OCD, and CKD thought to be related to longstanding lithium usage who presents to the ER after getting outpatient labs and being found to have a lithium level of 2.16. CC: Chief Complaint Patient presents with ??? Abnormal Labs HISTORY OF PRESENT ILLNESS Edyta Rowe is a 47 y.o. female pmh significant for bipolar disorder, hypothyroidism, OCD, and CKDthought to be related to longstanding lithium usage who presents to the ER after getting outpatientlabs and being found to have a lithium level of 2.16. She recently moved to the [facility] from [place] and is living with her parents. She used to get all her care in [place]. She has been on lithium for many years and has been stable. Since moving to the [facility], she established with a distributor operator for her CKD related to chronic lithium usage. Her baseline creatinine is around 1.45.The distributor operator recommended she start amiloride after a visit on 08/04. Shortly after starting this new medication, Edyta reports several weeks of diarrhea, nausea, and worsening of her upper extremity tremors. She stated that since the symptoms started after initiating the amiloride that she stopped taking the medication to see if it would improve her symptoms. The symptoms were persistent despite holding the medication. She saw an outpatient psychiatrist, Dr. Michelet Monge ([facility]) who ordered a lithium level which revealed a significantly elevated lithium level of 2.16 and she was recommended to present to the ER. She reports that she has been on lithium for about 20 years and has not had a change in her dose for several years. She has never had any issues with it and reports that she has not taken any extra doses. In the ER, she was found to have OLY with creatinine of 1.86 and lithium level at the ER was 2.02. Poison control was called and recommended bolus followed by maintenance fluids and checking lithium levels every 4 hours. PAST MEDICAL HISTORY Past Medical History: Diagnosis Date ??? Bipolar 1 disorder ??? Chronic kidney disease (CKD) stage G3b/A1, moderately decreased glomerular filtration rate (GFR) between 30-44 mL/min/1.73 square meter and albuminuria creatinine ratio less than 30 mg/g ??? OCD (obsessive compulsive disorder) PAST SURGICAL HISTORY Past Surgical History: Procedure Laterality Date ??? EYE SURGERY tear ducts as a child ??? TOE SURGERY FAMILY HISTORY Family History Problem Relation Age of Onset ??? Arrhythmia Mother ??? Prostate Cancer Father SOCIAL HISTORY Social History Socioeconomic History ??? Marital status: Single Spouse name: Not on file ??? Number of children: Not on file ??? Years of education: Not on file ??? Highest education level: Not on file Occupational History ??? Not on file Tobacco Use ??? Smoking status: Never ??? Smokeless tobacco: Never Substance and Sexual Activity ??? Alcohol use: Not Currently ??? Drug use: Never ??? Sexual activity: Not on file Other Topics Concern ??? 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 Nsaids (Non-Steroidal Anti-Inflammatory Drug) All interfere with lithium All interfere with lithium HOME MEDICATIONS No current facility-administered medications on file prior to encounter. Current Outpatient Medications on File Prior to Encounter Medication Sig Dispense Refill ??? lithium 300 mg capsule Take 300 mg by mouth nightly. ??? Alosetron (Lotronex) 0.5 mg tablet Take 0.5 mg by mouth 2 times daily. ??? buPROPion XL (Wellbutrin XL) 150 mg XL 24 hr tablet Take 150 mg by mouth every morning. ??? lamoTRIgine (LaMICtal) 200 mg tablet Take 200 mg by mouth nightly. ??? lamoTRIgine (LaMICtal) 100 mg tablet Take 50 mg by mouth every morning. ??? levothyroxine (Synthroid) 75 mcg tablet Take 75 mcg by mouth every morning. ??? lithium 300 mg capsule Take 300 mg by mouth every morning. TAKE 1 CAPSULE BY MOUTH IN THE MORNING AND 3 NIGHTLY AT BEDTIM ??? [DISCONTINUED] zolpidem (Ambien) 5 mg tablet 1-2 tabs nightly for sleep as directed. 20 tablet 1 ??? [DISCONTINUED] aMILoride (Midamor) 5 mg tablet Take 1 tablet by mouth daily. 90 tablet 3 ??? clonazePAM (KlonoPIN) 0.5 mg tablet Take 0.5 mg by mouth daily as needed. TAKE 1 TABLET BY MOUTH ONCE DAILY NEEDED FOR ANXIETY AND FOR INSOMNIA ??? [DISCONTINUED] famotidine (Pepcid) 20 mg tablet Take 20 mg by mouth 2 times daily. ??? [DISCONTINUED] lurasidone (Latuda) 20 mg Tablet Take 1 tablet by mouth daily. (Patient not taking: Reported on 08/04/2022) 30 tablet 2 REVIEW OF SYSTEMS Review of Systems Constitutional: Positive for activity change. Negative for appetite change, chills, diaphoresis, fatigue and fever. HENT: Negative for congestion, dental problem, nosebleeds, postnasal drip, sinus pressure, sneezing, sore throat, trouble swallowing and voice change. Eyes: Negative for pain, redness and visual disturbance. Respiratory: Negative for cough, chest tightness, shortness of breath and wheezing. Cardiovascular: Negative for chest pain, palpitations and leg swelling. Gastrointestinal: Positive for diarrhea, nausea and vomiting. Negative for abdominal distention, abdominal pain, blood in stool and constipation. Endocrine: Negative for cold intolerance and heat intolerance. Genitourinary: Negative for decreased urine volume, difficulty urinating, dysuria, flank pain, frequency and hematuria. Musculoskeletal: Negative for arthralgias, back pain, myalgias, neck pain and neck stiffness. Neurological: Positive for tremors. Negative for dizziness, seizures, facial asymmetry, weakness, light-headedness, numbness and headaches. Slow processing Hematological: Negative for adenopathy. Does not bruise/bleed easily. Psychiatric/Behavioral: Negative for agitation, behavioral problems, confusion, dysphoric mood, hallucinations and suicidal ideas. The patient is nervous/anxious. More OCD than normal PHYSICAL EXAM BP 127/74 Pulse 60 Temp 36.8 ??C (98.2 ??F) (Oral) Resp 20 Ht 160 cm (5' 3) Wt 56.4 kg (124 lb 6.4 oz) SpO2 98% BMI 22.04 kg/m?? Physical Exam Constitutional: General: She is not in acute distress. Appearance: Normal appearance. She is not ill-appearing, toxic-appearing or diaphoretic. HENT: Head: Normocephalic and atraumatic. Nose: Nose normal. No congestion. Mouth/Throat: Mouth: Mucous membranes are dry. Eyes: Extraocular Movements: Extraocular movements intact. Pupils: Pupils are equal, round, and reactive to light. Cardiovascular: Rate and Rhythm: Normal rate and regular rhythm. Heart sounds: No murmur heard. Pulmonary: Effort: Pulmonary effort is normal. No respiratory distress. Breath sounds: Normal breath sounds. No stridor. No wheezing, rhonchi or rales. Abdominal: General: Abdomen is flat. Bowel sounds are normal. There is no distension. Palpations: Abdomen is soft. There is no mass. Tenderness: There is no abdominal tenderness. There is no guarding. Musculoskeletal: General: No swelling, tenderness or deformity. Normal range of motion. Cervical back: Normal range of motion and neck supple. No tenderness. Right lower leg: No edema. Left lower leg: No edema. Skin: General: Skin is warm and dry. Coloration: Skin is not jaundiced. Findings: No bruising, lesion or rash. Neurological: General: No focal deficit present. Mental Status: She is alert and oriented to person, place, and time. Cranial Nerves: No cranial nerve deficit. Psychiatric: Mood and Affect: Mood normal. Behavior: Behavior normal. Comments: Blunted affect LABORATORY DATA Recent Labs 09/07/2215409/06/221948 WBC 9.0 8.4 HGB 9.5* 9.8* HCT 33.3* 34.7* PLATELET 277 276 Recent Labs 09/07/2215409/06/22 1855 NA 145 138 K 4.3 4.5 CL 120* 110* CO2 17* 19* BUN 14 14 CREATININE 1.74* 1.86* GLUCOSE 110 104 CALCIUM 9.5 10.4 MAGNESIUM 0.99 -- PHOS 2.5 -- Recent Labs 09/07/22 0155 PROT 6.1 6.0* ALBUMIN 3.8 3.8 BILITOT <0.2* <0.2* BILIDIR 0.1 AST 10 13 ALT 11 15 ALKPHOS 136* 134* Urine Analysis: Component Value Date/Time SPGRAVITYUA 1.004 (L) 08/04/2022 1339 PHUADIP 7.5 08/04/2022 1339 PROTEINUADIP Negative 08/04/2022 1339 GLUCOSEU Negative 08/04/2022 1339 KETONESUA Negative 08/04/2022 1339 UROBILIUADIP Normal 08/04/2022 1339 BLOODUADIP Negative 08/04/2022 1339 NITRATEUA Negative 08/04/2022 1339 LEUKOESTERUA Negative 08/04/2022 1339 WBCUA <1 08/04/2022 1339 BILIRUBINUA Negative 08/04/2022 1339 MICROBIOLOGY Microbiology Results (Last 30 days) No results found for the last 720 hours. IMAGING No orders to display No results found. EKG Pending ASSESSMENT AND PLAN Edyta Rowe is a 47 y.o. female pmh significant for bipolar disorder, hypothyroidism, OCD, and CKDthought to be related to longstanding lithium usage who presents to the ER after getting outpatientlabs and being found to have a lithium level of 2.16 and OLY superimposed on CKD. Suspect that her reduced creatinine clearance lead to a toxic build up of her lithium. OLY might have started with the use of amiloride which lead to lithium toxicity which lead to further OLY and then dehydration with the associated diarrhea and vomiting. #[place] Toxicity with symptoms of diarrhea, vomiting, 2 second sinus pauses, tremulousness, worsening OCD -Poison control consulted, appreciate recommendations -Check lithium level and electrolytes q 4 hrs -Replete electrolytes as needed -NS is preferred as sodium required to lithium excretion, but transitioned to LR with increase in chloride -Discussed sinus pauses with cardiology; not concerned at this time, but would get involved if pauses are more than 4 seconds #OLY superimposed on CKD stage 3b, baseline creatinine ~1.45 with creatinine of 1.86. Likely 2/2 tolithium toxicity further exacerbated by ongoing diarrhea, nausea, and vomiting -IV fluids -Clear excess lithium -Consider nephro consult pending course #Normocytic Anemia: Hgb ~9 Appears to be chronic. Suspect this is related to chronic kidney diseasevs. Nutritional deficiencies. -Check Iron studies/B12/Folate -Check haptoglobin, retic count, LDH to rule out hemolysis and assess production #Bipolar Disorder, OCD: Followed by Dr. Michelet Monge with [facility]. She has been stable on her dose of lithium for several years. -HOLD lithium in setting of toxicity; will need dose adjustment once levels are back to normal ranges. -Continue Wellbutrin -Continue Lamictal -Contact Dr. Monge about any medication changes #Hypothyroidism -Continue home levothyroxine GLOBAL ISSUES - DVT ppx: Heparin Subq - Diet: Regular diet - Access:PIV - Consults: Poison Control - Dispo:Pending course Code: Attempt Cardiopulmonary Resuscitation - Inpatient Signed Joaquina Vallejo MD 09/07/2022 7:26 AM [facility] 2300 IPI Certification I certify that I am a D-H credentialed attending provider with admitting privileges and that the patient meets or has met medical necessity to require an inpatient IPI level of care meeting a minimumof two midnights or is on the [facility] inpatient only procedure list (status C) due to: monitoring of fluid status given an inability to regulate fluid balance and the need for administration or restriction of fluids and acute kidney injury necessitating close monitoring of fluid balance such as intravenous fluids and/or titration of medication to achieve optimal effect and minimize the chance of immediate or severe side effects documented in this encounter ED Notes * Xander Coombs MD - 09/06/2022 5:06 PM EDT ED Resident Note HPI: Edyta Rowe is a 47 y.o. female with a past medical history of CKD stage 3 and bipolar disorder, who presents to the Emergency Department with the chief concern of lithium toxicity. Mother was present during this interview. Patient reports diarrhea, nausea, worsening of chronic bilateral UE tremors, and worsening of baseline OCD-symptoms (I.e. more handwashing) over the past 3 weeks. Patient reports diarrhea is non-bloody and non-watery. Denies recent fevers, chills, and sweats. Mother reports that the patient is mildly slower to respond, as well. Outpatient provider Dr. Monge recommended an outpatient lithium level, which came back at 2.16 @852this morning. It was recommended she come to the ED for further evaluation. Patient denies taking extra doses or any overdoses. Patient reports she has been on lithium for approximately 20 years withno dose changes in several years. Patient repots she started amiloride in August per nephrology's recommendation, but discontinued this medication about 1.5 weeks ago as she thought her symptoms were secondary to this medication. Per chart review, creatinine ranging 1.37-1.51 since December of 2020. Was last evaluated by neprhology on 08/04/22. At that time, CKD was thought to be secondary to chronic lithium use. Started amiloride. Dr. Monge is her psychiatrist. Per chart review (confirmed by patient), medication regimen includes: Wellbutrin 150 mg XL every morning, lithium carbonate 300 mg a.m. and 900 mg p.m., lamotrigine 50 mg a.m. and 200 mg p.m., Synthroid 75 mcg daily, Lotrenox 0.5 mgs BID. ROS as per HPI Vitals: ED Triage Vitals [09/06/22 1656] BP: 152/85 Heart Rate: 68 Resp: 16 Temp: n/a Temp src: n/a SpO2: 99 % O2 Device: O2 Flow Rate (L/min): n/a Physical Exam HENT: Head: Normocephalic. Mouth/Throat: Mouth: Mucous membranes are moist. Eyes: Extraocular Movements: Extraocular movements intact. Cardiovascular: Rate and Rhythm: Normal rate and regular rhythm. Pulmonary: Effort: Pulmonary effort is normal. Breath sounds: Normal breath sounds. Skin: General: Skin is warm. Neurological: Mental Status: She is alert. Sensory: No sensory deficit. Motor: No weakness. Comments: hyperrflexic thorughout; bilateral tremors in UE; mild head tremor at rest ED Course: I have reviewed labs and imaging, images and available reports, and they are significant for: ED Course as of 09/06/22 2200 Sat September 06, [id number] [place] Lvl(!!): 2.02 Reviewed. Minimal improvement from early AM reading 2103 Differential, Automated(!) Unremarkable 2106 Creatinine(!): 1.86 2106 Elevated from baseline No orders to display Procedures Assessment and Plan: Edyta Rowe is a 47 y.o. female with a past medical history of CKD stage 3 and bipolar disorder, who presents to the Emergency Department with the chief concern of lithium toxicity. Mother was present during this interview. Patient's history, physical exam, and lithium level appear consistent with acute lithium toxicity, as nausea, diarrhea, and tremors are common symptoms of lithium toxicity. Initial lithium level elevated. Called poison control for further recommendations. Agreed with initial plan for bolus of fluids. Recommended following initial bolus at 1.5-2x maintenance rate with lithium levels every 4-5 hours. Received 1L NS. Initiated maintenance fluids at 150. Will recheck lithium level around midnight. Creatinine noted to be elevated from prior baseline at 1.86; prior baseline was 1.37-1.51. Ultimately lithium toxicity with an OLY on CKD. Etiology of lithium level includes a broad differential: decreased PO intake/diarrhea leading to OLY, worsening CKD, interaction with recently started (but discontinued) amiloride, correlation to discontinuing Vraylar in August. Suspicion for intentional/unintentional overdose is low. Patient will be admitted to medicine. Medicine requested lipase and hepatic function labs - ordered. Xander Coombs MD 09/06/2022 9:20 PM Xander Coombs MD Resident 09/06/222213 Xander Coombs MD Resident 09/06/222219 Associated attestation - Iggy Lynch MD - 09/13/2022 10:20 PM EDT ED ATTENDING ATTESTATION The patient was seen in conjunction with the resident physician. I have independently performed thekey portions of the history and physical exam. I have personally reviewed nursing notes, vital signs, and diagnostic studies including labs, imaging studies and EKGs. I have discussed the details of the case with the resident and agree with the assessment and plan as described in the resident's note, unless stated otherwise in my separate note. Did this case involve critical care? No documented in this encounter Miscellaneous Notes * Care Management Discharge - Lubna Castle RN - 09/09/2022 10:29 AM EDT CARE MANAGEMENT FINAL DISCHARGE NOTE Chart reviewed, care reviewed with primary team and at interdisciplinary rounds. Patient is medically ready for discharge to home. Needs for Transition of Care: Plan for discharge is: Home w/o Services Outpatient Agency/Support Group Needs: None Agency Referrals & Follow-up Care: Transportation: family or friend will provide Wheelchair van/Ambulance? No Functional status prior to admission: Independent Home Environment: Others in the home: parent(s). Current Living Arrangements: home/apartment/condo. Accessibility Concerns:Patient lives with her parents in a 2 story home [facility] reports no difficuly climbing stairs. Current Functional Ability: Independent DME used at home: none DME Needed at Discharge: Patient is insured through: Primary Insurance: [employer] Payor: [employer] / Plan: [employer] / Product Type: *No Product type* / Secondary Insurance: N/A Prescription Coverage: Yes This plan was formulated with input from patien and team. All are in agreement with plan. Lubna Castle [facility] [phone] * Plan of Care - Mulu Rome RN - 09/09/2022 5:16 AM EDT OUTCOME EVALUATION NOTE: OUTCOME SUMMARY: Pt A&Ox4 VSS on RA Medications administered per MAR Pt ambulating independently in room Overnight provider stated pt did not need overnight tele No events, safety maintained PLAN MOVING FORWARD: Renal ultrasound + 24 hr urine (outpatient?) Discharge planning INDIVIDUALIZED FALL PREVENTION INTERVENTIONS: Patient-specific fall risk factors per assessment: [current deficits]: PIV Assistance [level of assistance required for transfers and ambulation]: IND Supervision [direct monitoring required during toileting and ADLs]: IND Surveillance [continuous indirect monitoring]: Masimo, purposeful rounding Patient-specific fall prevention interventions for sensory deficits provided, if applicable: [X] N/A CARE PLAN GOAL OUTCOME EVALUATION: Mulu Rome RN * Plan of Care - Ann Frank RN - 09/08/2022 5:05 PM EDT OUTCOME EVALUATION NOTE: OUTCOME SUMMARY: Pt with intermittent confusion towards place, date, and situation, currently alert/oriented x4, ambulates independently in room, pt constantly removing tele and sat monitor, NSR when she is on monitor, denies pain or other complaints, mother in to see pt. PLAN MOVING FORWARD: Discharge planning INDIVIDUALIZED FALL PREVENTION INTERVENTIONS: Patient-specific fall risk factors per assessment: [current deficits]: medical equipment Assistance [level of assistance required for transfers and ambulation]: independent Supervision [direct monitoring required during toileting and ADLs]: independent Surveillance [continuous indirect monitoring]: bed in low position, call christopher in reach, purposeful rounding Patient-specific fall prevention interventions for sensory deficits provided, if applicable: [X] N/A CPG GOAL OUTCOME EVALUATION: * Consult Note - Jessica Domínguez MD - 09/08/2022 4:16 PM EDT Psychiatric Initial Inpatient Consultation Note Time of Consultation: 12:00 PM Information Sources: Patient. Other: Patient's mother Wyatt. Electronic Medical Record. Reason for consultation: I have been asked to see Edyta Rowe for recommendations regarding the management of re-starting lithium following toxicity and I have outlined my findings and recommendations in this report. Chief Complaint (in patient's own words): I feel pretty good right now History of Present Illness: Edyta is a 47-year-old female with past psychiatric history of OCD, and bipolar type I, who presented in lithium toxicity with a level of 2.16, and psychiatry was consulted for help with psychiatric medication management. Patient reports that leading up to this hospitalization she had started amiloride. She noticed that the amiloride may have caused her diarrhea. She denies a recent infection, ordecreased p.o. intake. Denies taking any NSAIDs, or other antihypertensive medications recently. Patient also denies taking more of her lithium than she was supposed to, or any suicide attempts. She reports that in terms of her bipolar she has been doing well, however she has noticed worsening OCD symptoms. She states that her margy first presents as her being highly distractible. She denies any of the symptoms right now. Patient is orientated to place, and time. She however is unable to complete delayed recall. Patient's clock is also slightly abnormal when it comes to number placement, as well as the placement of her hands. Patient denies any current suicidal ideations, or recent suicide a ttempts. She denies ever being psychiatrically hospitalized. Patient also denies any homicidal ideations. She reports that she lives with her parents. Independent Collateral: Patient's mother Leisa was called in order to better understand the patient's baseline. Mom does report that for the past 2 weeks the patient has seemed more out of it. Mom does say that Edyta isthe one who is in charge of her medications, however mom is happy to help with Edyta's medications if that is something Edyta agrees to. Mom denies any recent concern that the patient has been suicidal, or homicidal. Psychiatric Review of Systems: Sustained Depressed Mood: Denies Sustained Elevated Mood: Denies Sustained Irritable Mood: Denies Psychotic Symptoms: Denies Obsessions/compulsions: Was not formally assessed Violence: Denies Past Psychiatric History: Diagnoses: - Bipolar type one - OCD Current treatment: - Was on lithium 300 mg in morning + 900 mg in afternoon (this was a stable dose for a very long time) - Lamictal 50 mg daily + 200 mg nightly - Wellbutrin 150 mg in the morning Past hospitalizations: - Denies Suicide attempts: - Denies Substance Use History/Treatment: - Denies Problem List: Patient Active Problem List Diagnosis Code ??? Stage 3b chronic kidney disease (CKD) N18.32 ??? Hyperparathyroidism E21.3 ??? Anemia D64.9 ??? [place] intoxication, accidental or unintentional, initial encounter T56.590L Past Medical/Surgical History: Past Medical History: Diagnosis Date ??? Bipolar 1 disorder ??? Chronic kidney disease (CKD) stage G3b/A1, moderately decreased glomerular filtration rate (GFR) between 30-44 mL/min/1.73 square meter and albuminuria creatinine ratio less than 30 mg/g ??? OCD (obsessive compulsive disorder) Past Surgical History: Procedure Laterality Date ??? EYE SURGERY tear ducts as a child ??? TOE SURGERY Inpatient Medications: Current Facility-Administered Medications Medication Dose Route Frequency Provider Last Rate Last Admin ??? ferrous sulfate EC (FeroSul) tablet 325 mg 325 mg Oral Daily with breakfast Gaby Ramesh MD325 mg at 09/08/22811 ??? buPROPion XL (Wellbutrin XL) tablet 150 mg 150 mg Oral QAM Joaquina Vallejo MD 150 mg at 09/08/22810 ??? clonazePAM (KlonoPIN) tablet 0.5 mg 0.5 mg Oral Daily PRN Joaquina Vallejo MD ??? famotidine (Pepcid) tablet 20 mg 20 mg Oral BID Joaquina Vallejo MD 20 mg at 09/08/22811 ??? lamoTRIgine (LaMICtal) tablet 50 mg 50 mg Oral QAM Joaquina Vallejo MD 50 mg at 09/08/22810 ??? lamoTRIgine (LaMICtal) tablet 200 mg 200 mg Oral Nightly Joaquina Vallejo MD 200 mg at 09/07/222041 ??? levothyroxine (Synthroid) tablet 75 mcg 75 mcg Oral QAM Joaquina Vallejo MD 75 mcg at 09/08/22811 ??? sodium chloride 0.9 % (flush) (BD PosiFlush Normal Saline 0.9) flush 5 mL 5 mL Intravenous BID Joaquina Vallejo MD 5 mL at 09/07/222044 ??? sodium chloride 0.9 % (flush) (BD PosiFlush Normal Saline 0.9) flush 5-20 mL 5-20 mL Intravenous Q1 Min PRN Joaquina Vallejo MD ??? lidocaine (Xylocaine) 1% (10 mg/mL) injection 3 mg 0.3 mL Subcutaneous Once PRN Joaquina Vallejo MD ??? heparin (porcine) (5,000 units/1 mL) subcutaneous injection 5,000 Units 5,000 Units Subcutaneous 2 times per day Joaquina Vallejo MD 5,000 Units at 09/08/22810 ??? bisacodyL (Dulcolax) suppository 10 mg 10 mg Rectal Daily PRN Joaquina Vallejo MD ??? magnesium hydroxide (Milk of Magnesia) (80mg/mL) oral liquid 30 mL 30 mL Oral Daily PRN Joaquina Vallejo MD ??? acetaminophen (Tylenol) tablet 650 mg 650 mg Oral Q6H PRN Joaquina Vallejo MD ??? prochlorperazine (Compazine) tablet 10 mg 10 mg Oral Q6H PRN Joaquina Vallejo MD Or ??? prochlorperazine (Compazine) (5 mg/mL) injection 10 mg 10 mg Intravenous Q6H PRN Joaquina Vallejo MD Pertinent Medical Review of Systems: Social History: Patient currently lives with her parents and has good support at home. Family Medical/Psychiatric History: Family history of depression, bipolar disorder, and schizophrenia Physical Exam: Last value Range last 24 hrs Temperature Temp: 36.7 ??C (98.1 ??F) Temp: [36.4 ??C (97.5 ??F)-36.8 ??C (98.3 ??F)] Heart Rate Heart Rate: 67 Heart Rate: [38-71] Blood Pressure BP: 123/77 BP: (123-151)/(65-77) Respiratory Rate Resp: 17 Resp: [16-19] SpO2 SpO2: 100 % SpO2: [97 %-100 %] Mental Status Examination: Musculoskeletal System: ??? Muscle Strength/Tone (note atrophy, abnormal movements): Patient does have a tremor to her upper extremities bilaterally ??? Gait and Station: Was not formally assessed Psychiatric: Patient is sitting comfortably in hospital bed, with tremor to her upper extremities. She has a normal intonation and volume to her speech. She reports that she is doing well today, and she is euthymic. She is linear and logical and does not report anything delusional in nature. She denies any current SI or HI. She is orientated to place and time. She is unable to complete clock drawing, and also has difficulty with delayed recall. Assessment: Edyta is a 47 year old female, history of bipolar type one, who was on lithium as an outpatient, and presented toxic. At this time we do not recommend re- starting lithium. Would schedule close followup with her outpatient psychiatrist. Patient is denying any acute psychiatric concerns at this time. She is linear and logical and denying at SI or HI. She, however, is having some neurocognitive testing issues. It is likely that she is still slightly encephalopathic. Likely starting the amiloride lead to diarrhea and this diarrhea lead to dehydration and the elevation in her level. Could consider consulting nephrology to see if they have any further input, they have already evaluated her here in the past as well. Diagnoses (chronic, acute, include progression/severity): [place] toxicity likely 2/2 diarrhea Plan/Recommendations: - Please do not re-start lithium at this time - Recommend speaking with nephrology - Also recommend close follow up with outpatient psychiatry - No concern for margy, or any acute psychiatric symptoms at this time Patient on IEA Status? IEA: NO, patient is not on IEA and does not have any psychiatric contraindication to discharge at the time of this assessment. Recommendations were communicated to primary child care team lead. Jessica Domínguez MD 09/08/2022 Coding Determination 1. Problems/Diagnosis (check one): High Minimal refers to a single minor problem. Example: Poor sleep due to noise in the hospital room. Low refers to two minor problems, or one stable/uncomplicated illness. Examples: Major depression in remission; adjustment disorder with depressed mood. Moderate refers to one illness with new onset, progression, exacerbation, complication, or side effects; or two stable problems. Examples: Recurrent major depression with exacerbation or progression or side effects of treatment; stable schizophrenia and alcohol use disorder; acute alcohol withdrawal; anorexia with systemic symptoms such as bradycardia. High refers to one chronic problem with severe progression, exacerbation, or side effects; or one problem with threat to life or bodily function. Examples: any psychiatric illness with suicidal or homicidal ideation or thoughts of self- harm; delirium; any eating disorder with severe medical consequences; major depression with significant functional decline; any severe side effects of psychiatric interventions (NMS, hyponatremia, lithium toxicity syndrome, etc); any psychiatric illness meeting the severe specifier. 2. Data Review/Analysis (check one): Moderate Low refers to (1) review of notes and test results or (2) assessment from a collateral source. Moderate requires one of the following: ??? All three of the following: review of notes, review of test results, assessment from a collateral source. ??? Discussion of test interpretation or management with an external physician/provider (primary team included). High requires both of the following (same options from Moderate above): ??? All three of the following: review of notes, review of test results, assessment from a collateral source. ??? Discussion of test interpretation or management with an external physician/provider (primary team included). 3. Patient Risk (check one): High Minimal refers to minimal risk from additional testing/treatment. Example: Bereavement. No medications recommended. Low refers to low risk from additional testing/treatment. Example: only interventions are minimallyinvasive or otherwise low risk (serum labs, melatonin, continuing an SSRI). Moderate refers to moderate risk from additional testing/treatment. Examples: starting prescriptionmedication with only moderate risk. Moderate also includes diagnosis or treatment significantly limited by social determinants of health such as food/housing insecurity, transportation issues, financial limitations, etc. High refers to high risk from additional testing/treatment. Examples: therapies requiring monitoring of serum level (lithium, valproate), medications with specific identified risks (QTc-prolonging medications in certain patients, SSRIs in patients with risk of bleeding). Discussions of higher levels of psychiatric intervention/care (1:1 sitter, voluntary psychiatric hospitalization, IEA, ECT). Patients who may require medical interventions against their wishes when they lack capacity to refuse those interventions; patients who lack capacity to choose to leave the hospital AMA. Discussion of high risk interventions that may be necessary to ensure safety (parenteral medications for managementof agitation; restraints; security presence). Risk of acute withdrawal. Complexity of MDM Determination: Choose the appropriate level in the first 3 columns based upon what you indicated above. Then 2 outof 3 elements must be met to qualify for the highest appropriate level of complexity. Problems/Diagnosis Data Review/Analysis Patient Risk Complexity of Medical Decision-Making CPT CODE [] Minimal - [] Minimal [] Straightforward 49313 [] Low [] Low [] Low [] Low 82090 [] Moderate [x] Moderate [] Moderate [] Moderate 70386 [x] High [] High [x] High [x] High 11234 Final Coding Determination: High Associated attestation - Dylan Medina MD - 09/12/2022 12:52 PM EDT Psychiatry Attending Note I discussed the case with the resident, and saw and evaluated the patient (on 09/08) within 24 hours of the service described in the resident's note. I reviewed the patient???s history during the visit and I agree with the details as written. My exam confirms the resident's findings. The assessment and plan were formulated in discussion with me and I agree with them as documented. Major issues addressed/discussed: 47F with hx of bipolar I d/o on lithium presenting with lithium toxicity. Cont to hold lithium for now; recommend involved nephrology as they recently started amiloride. Dylan Medina MD Psychiatry Consultation Pager: [phone] * Consult Note - Hal Patel MD - 09/08/2022 3:00 PM EDT Hypertension-Nephrology Consultation Edyta Rowe [id number] ID: Edyta Rowe is 47 y.o. yo female requiring inpatient consultation for [place] Toxicity at the request of Dr. Epps. Past Medical History: Bipolar I disorder on lithium since 2003, OCD, Depression, CKD III, Hypothyroidism, IBS with diarrhea History of Present Illness: Patient was admitted to the hospital with lithium level of 2.16 and symptoms of lithium toxicity including nausea, tremor and ataxia. She was recently seen in the out patient nephrology clinic for CKD IIIB in the setting of her chronic lithium use. She was started on amiloride on or around 08/10 in addition to the lithium with the goal for added renal protection. Unfortunately she fairly quickly developed nausea and diarrhea (was not sure if the latter was related to her IBS). Mother is present and helps with her history and says that she developed a tremor and ataxia as well. She was recently on another psychiatric medication Vraylar which caused an abnormal gait and ataxia as well, her mom n otes that her gait was the same on both of these medications. She has been off of the Vraylar priorto the introduction of the amiloride. No other recent medication changes. Her out patient psychiatrist is worried about the renal function which prompted the initial referral to nephrology. There hasbeen some discussion of trying to switch her off of the lithium as well. She notes that she has felt thirsty on the lithium since initially starting it in 2003. Since arrival to the hospital her symptoms have largely resolved. Her lithium level is now back to normal and her sinus bradycardia/pauses are improving. Review of Systems: Ten point ROS performed. All positive symptoms noted in HPI. Family History: Family History Problem Relation Age of Onset ??? Arrhythmia Mother ??? Prostate Cancer Father Social History: Social History Socioeconomic History ??? Marital status: Single Spouse name: Not on file ??? Number of children: Not on file ??? Years of education: Not on file ??? Highest education level: Not on file Occupational History ??? Not on file Tobacco Use ??? Smoking status: Never ??? Smokeless tobacco: Never Substance and Sexual Activity ??? Alcohol use: Not Currently ??? Drug use: Never ??? Sexual activity: Not on file Other Topics Concern ??? 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 General: Patient is in no distress today, seated comfortably on the hospital couch today. HEENT: Mucous membranes moist, EOM intact, sclera clear. CV: S1 & S2 audible, no MGR Resp: Breathing comfortably on room air, CTAB. Abd: Soft, non-tender, non-distended. Ext: No edema. Skin: No rashes or lesions on the exposed skin Neuro: Alert and oriented, no focal deficits. Psych: Pleasant and calm, conversational attention is intact. ??? ferrous sulfate EC 325 mg Oral Daily with breakfast ??? buPROPion XL 150 mg Oral QAM ??? famotidine 20 mg Oral BID ??? lamoTRIgine 50 mg Oral QAM ??? lamoTRIgine 200 mg Oral Nightly ??? levothyroxine 75 mcg Oral QAM ??? sodium chloride 0.9 % (flush) 5 mL Intravenous BID ??? heparin (porcine) 5,000 Units Subcutaneous 2 times per day Allergies Allergen Reactions ??? Nsaids (Non-Steroidal Anti-Inflammatory Drug) All interfere with lithium All interfere with lithium Lab Results Component Value Date CREATININE 1.57 (H) 09/08/2022 CREATININE 1.61 (H) 09/07/2022 CREATININE 1.74 (H) 09/07/2022 CREATININE 1.86 (H) 09/06/2022 CREATININE 1.37 (H) 08/04/2022 ESTGFR 40 (L) 09/08/2022 ESTGFR 39 (L) 09/07/2022 ESTGFR 36 (L) 09/07/2022 ESTGFR 33 (L) 09/06/2022 ESTGFR 48 (L) 08/04/2022 CO2 18 (L) 09/08/2022 CO2 20 (L) 09/07/2022 CO2 17 (L) 09/07/2022 CO2 19 (L) 09/06/2022 CO2 20 (L) 08/04/2022 NA 145 09/08/2022 NA 145 09/07/2022 NA 145 09/07/2022 NA 138 09/06/2022 NA 143 08/04/2022 K 4.5 09/08/2022 K 4.3 09/07/2022 K 4.3 09/07/2022 K 4.5 09/06/2022 K 4.2 08/04/2022 Lab Results Component Value Date UPROTCREAT <0.8 08/04/2022 Lab Results Component Value Date HGB 10.2 (L) 09/08/2022 FERRITIN 11 (L) 09/07/2022 IRONSAT 7 (L) 09/07/2022 Lab Results Component Value Date CALCIUM 10.2 09/08/2022 CALCIUM 10.0 09/07/2022 CALCIUM 9.5 09/07/2022 PHOS 3.1 09/08/2022 PHOS 2.6 09/07/2022 PHOS 2.5 09/07/2022 PTH 187 (H) 08/04/2022 25OHVITD 32 08/04/2022 Summary: Edyta Rowe is 47 y.o. yo female requiring inpatient consultation for lithium toxicity. Medical comorbidities include Bipolar I disorder on lithium since 2003, OCD, Depression, CKD III, Hypothyroidism, IBS with diarrhea. She was recently seen in CKD clinic and amiloride was added at that time to help ameliorate symptoms. [place] is primarily renally cleared and it's clearance can be affected by certain medications including ACEs/ARBs and NSAIDS by altering renal blood flow and perfusion. Amiloride is a diuretic that blocks distal Na channels which should not impact the pharmacokinetics of lithium itself. However very likely that the diuretic effect led to volume depletion and symptoms which in turn led to poor pointake etc all culminating in her recent symptoms and lithium toxicity. Fortunately her lithium level is back to normal. In the shorter term very reasonable to continue lithium, but would defer to psychiatry. However would advise against the reintroduction of amiloride which is primarily used to help with symptoms of nephrogenic DI when they are troublesome. She is a young patient and her GFR has shown a decline since 2020 which is concerning. If at all possible it would be best to get off of the lithium if a safe alternative can be found, however understand that for her quality of life she may need continue this indefinitely if an alternative cannot be found. She did recently have hypercalcemia and her PTH is elevated which is concerning either for primary hyperparathyroidism v.s. a lithium side effect. I note that she is also on thyroid replacement for hypothyroidism which may be a sequelae of the lithium as well. CKD IIIB Bipolar I on chronic lithium since 2003 [place] toxicity, resolving Hx Hypercalcemia Hyperparathyroidism (2/2 lithium v.s. a primary process) Hypothyroidism - Please obtain a renal US to look for chronic changes of lithium. Note that this can be done out patient if time does not allow here. - A 24 hour urine collection with volume, Cr, and BUN measurements is quite reasonable to better assess renal function and true GFR. If hospitalization will be longer than 24 hours we can obtain thishere otherwise this can also be outpatient. - Please note that I've ordered PTH and vitamin D levels with am labs to better assess etiology of her hypercalcemia - Stop amiloride as the risks outweigh the benefits. Reasonable to restart lithium but will defer to psychiatry. If an alternative can be found this would be highly preferable to the lithium given the CKD, hyperparathyroidsium, and hypothyroidism and concern that these are all medication side effects. This case was discussed with staff distributor operator Dr. Ordonez and the patient's primary team. Please contact me at phone: [phone] or pager: [phone] with any questions. Hal Patel MD Nephrology & Hypertension Fellow, PGY-4 Associated attestation - Roseann Ordonez MD - 09/08/2022 8:04 PM EDT Attending: Thank you for this consult I have seen and examined the patient, reviewed the relevant clinical and laboratory data and images, and discussed the case with Dr Patel. His excellent note accurately reflects our joint assessment and recommendations. * Initial Assessments - Lubna Castle RN - 09/08/2022 10:33 AM EDT Office of Care Management Initial Assessment Lubna Castle RN reviewed record and discussed patient with Care Team. Source of Information: Team, bedside nurse, medical record, and Patient Introduced self/reviewed role; services accepted. Reason for Hospitalization: lithium level was too high Covid Vaccination Status: 1st, 2nd & booster (Moderna) Last COVID test: Past medical History: Past Medical History: Diagnosis Date ??? Bipolar 1 disorder ??? Chronic kidney disease (CKD) stage G3b/A1, moderately decreased glomerular filtration rate (GFR) between 30-44 mL/min/1.73 square meter and albuminuria creatinine ratio less than 30 mg/g ??? OCD (obsessive compulsive disorder) Hospitalizations Within the Past 30 Days: no previous admission in last 30 days Current Decision-Making Capacity: Self If AD's have not been completed the following surrogate would be surrogate decision maker per [place] surrogate decision making law. (Only good for 180 days) mother Wyatt Any patient receiving care in [place] must abide by [place] law. The hierarchy for surrogate decision making is: (a) Patient???s spouse or civil union partner unless there is a divorce proceeding, separation agreement, or restraining order limiting that person???s relationship with the patient. (b) Any adult son or daughter of the patient. (c) Either parent of the patient. (d) Any adult brother or sister of the patient. (e) Any adult grandchild of the patient. (f) Any grandparent of the patient. (g) Any adult aunt, uncle, niece, or nephew of the patient. (h) A close friend of the patient. (i) The agent with financial power of patcher wood welder or a conservator appointed in accordance with RSA 464-A. (j) The guardian of the patient???s estate. Advance Care Planning: Attempt Cardiopulmonary Resuscitation - Inpatient <no information> -Advanced Directive: No, need to discuss Current Coping/Education/Information Needs: Educated the patient on the role of the CM and the DC planning process Current Functional Ability: Independent Functional Status Prior to Admission: Independent Prior ADLs & IADLs: Independent with all ADLs & IADLs Home Environment: Others in the home: parent(s). Current Living Arrangements: home/apartment/condo. Accessibility Concerns:Patient lives with her parents in a 2 story home [facility] reports no difficuly climbing stairs. Resource / Environmental Concerns: Resource/Environmental Concerns: none Current DME: none Home Address confirmed as: [address] [place] [address] [address] [place] [address] Social & Family Supports: All names listed below confirmed with patient as current and correct Extended Emergency Contact Information Primary Emergency Contact: Shelbie Schneider Mobile Relation: Parent Current Care Provided by: self Provides Primary Care For: no one Caregiver if needed: parent(s) Quality of Family relationships: helpful, involved, supportive Community Resources being provided currently: none Behavioral Health History: Bipolar Substance Use/Abuse confirmed: Social History Tobacco Use Smoking Status Never Smokeless Tobacco Never In the past year have you used an illegal drug or used a prescription medication for non-medical reasons?: No 0 No problems reported 1-2 Low level 3-5 Moderate level 6-8 Substantial level 9- 10 Severe level In the past year have you had 4 or more drinks a day containing alcohol?: No 0 to 7 points: Low risk 8 to 15 points: Medium risk 16 to 19 points: High risk 20 to 40 points: Addiction likely Other Pertinent/Service Specific Information: NA Health/Prescription Coverage: Primary Insurance: [employer] HE[employer] PLANS MANAGED MEDICAID Payor: [employer] HEALTH PLANS [employer]NAGED MEDICAID / Plan: [employer] HEALTH / Product Type: *No Product type* / Secondary Insurance: N/A ; Prescription Coverage: Yes [facility] [address] [place] [id number] [place] Status: Patient is a : No Primary Care Provider confirmed: Haylie Steward MD [phone] Patient/Caregiver Goals of Treatment: [place] home to her parent's house Potential Needs for Transition of Care: none Agency Referrals: Not Applicable Transportation: no concerns Transportation Anticipated: family or friend will provide Concerns to be Addressed: no discharge needs identified Assessment: Patient is admitted to med service for lithium intoxication Plan: The patient alert and oriented and able to participate in discussion regarding DC plan. Patient with no apparent RNCM/SW needs at this time. No housing, transportation, insurance, resources concerns identified at this time. Supports in place to achieve a safe post-hospital transition. No identifiedbarriers to accessing necessary care and/or follow-up after discharge. ??? Monitor pt progress ??? Review recommendations from other providers ??? Make referrals as needed A member of the Care Management team will continue to monitor progress, follow for continuity of care and assist with transition of care planning. Lubna Castle [facility] [phone] * Consult Note - Josh Garcia [facility] - 09/07/2022 12:29 AM EDT TelePharmacy Home Medication List Update for Medication Reconciliation 09/07/22 12:29 AM Edyta Rowe 1975 Allergies Allergen Reactions ??? Nsaids (Non-Steroidal Anti-Inflammatory Drug) All interfere with lithium All interfere with lithium ??? Person Interviewed: patient ??? Quality of Interview/accuracy of medication list: excellent ??? Sources used to compile medication list: [x] Epic medication list [x] SureScripts [] PCP/Specialist list [] Retail pharmacy [] Patient list [] MAR [] Other ??? Changes made to home medication list: o Additions: - none o Deletions: - Amiloride - pepcid - latuda - zolpidem o Changes: - none ??? Additional Notes: none ??? Recommended changes: none The home medication list is now updated to the best of my knowledge and is ready to be reconciled by the provider. Please contact the TelePharmacy Medication Reconciliation Pharmacist at for any questions. Josh Garcia RPH * ED Triage - Tone Caballero RN - 09/06/2022 4:55 PM EDT Pt states she is feeling ok and pt states she has had some diarrhea as well but denies n/v. Pt states she has IBS HPI (Adult) Stated Reason for Visit: accordig to mother pt is on lithium and over the last few days she has hadconfusion, diarrhea, anxiety. pt was seen to get a lithium level and it was noted to be high (in chart). History Obtained From: patient, family Precipitating Event(s): none documented in this encounter Plan of Treatment Upcoming Encounters Date Type Department Care Team (Latest Contact Info) Description 04/22/2024 9:45 AM EST Scheduled View Only Radiation Oncology at [address] [phone] 04/25/2024 8:30 AM EST Scheduled View Only Radiation Oncology at [address] [phone] 04/26/2024 3:00 PM EST Scheduled View Only Radiation Oncology at [address] [phone] 04/26/2024 3:30 PM EST Office Visit Radiation Oncology at [address] [phone] Ofe Fonseca MD [facility] [place] [address] 04/28/2024 2:45 PM EST Scheduled View Only Radiation Oncology at [address] [phone] 04/29/2024 3:00 PM EST Scheduled View Only Radiation Oncology at [address] [phone] 05/02/2024 3:45 PM EST Scheduled View Only Radiation Oncology at [address] [phone] 05/03/2024 1:45 PM EST Scheduled View Only Radiation Oncology at [address] [phone] 05/03/2024 2:15 PM EST Office Visit Radiation Oncology at [address] [phone] Ofe Fonseca MD [facility] [place] [address] 05/05/2024 8:15 AM EST Scheduled View Only Radiation Oncology at [address] [phone] 05/06/2024 12:30 PM EST Scheduled View Only Radiation Oncology at [address] [phone] 05/09/2024 3:00 PM EST Scheduled View Only Radiation Oncology at [address] [phone] 05/10/2024 2:30 PM EST Scheduled View Only Radiation Oncology at [address] [phone] 05/10/2024 3:15 PM EST Office Visit Radiation Oncology at [address] [phone] Ofe Fonseca MD [facility] [place] [address] 05/11/2024 2:45 PM EST Scheduled View Only Radiation Oncology at [address] [phone] 06/03/2024 3:30 PM EST Appointment Ultrasound at [place] [phone] Mira Hutchison [facility] [place] [address] 06/23/2024 4:00 PM EST Appointment Mammography/DXA at [place] [phone] Miryam Feliciano MD [facility] [place] [address] 07/12/2024 8:00 AM EDT Laboratory Appointment Lab [address] [place], [place] [phone] 07/12/2024 9:30 AM EDT Office Visit Nephrology Hypertension at [place] [phone] Sharmin Jean-Baptiste DIRECTOR OF PLANT OPERATIONS [facility] [place] [address] 07/13/2024 10:30 AM EDT Laboratory Appointment Lab at [facility] Hematology Oncology [address] [place] [phone] 07/13/2024 11:30 AM EDT Office Visit Hematology [place] [phone] Salena Alvares APRN [facility] [place] [address] 07/13/2024 12:45 PM EDT Appointment Hematology [place] [phone] documented as of this encounter Procedures Procedure Name Priority Date/Time Associated Diagnosis Comments PTH Routine 09/09/2022 4:46 AM EDT HEMOGRAM Routine 09/09/2022 4:46 AM EDT DIFFERENTIAL, AUTOMATED Routine 09/09/2022 4:46 AM EDT VITAMIN D, 25-HYDROXY Routine 09/09/2022 4:46 AM EDT HC CBC,PLT & AUTO DIFF Routine 4:46 AM EDT PHOSPHORUS Routine 09/09/2022 4:46 AM EDT MAGNESIUM Routine 09/09/2022 4:46 AM EDT LITHIUM LEVEL Routine 09/09/2022 4:46 AM EDT BASIC METABOLIC PANEL Routine 09/09/2022 4:46 AM EDT HEMOGRAM Routine 09/08/2022 1:55 AM EDT DIFFERENTIAL, AUTOMATED Routine 09/08/2022 1:55 AM EDT HC CBC,PLT & AUTO DIFF Routine 1:55 AM EDT PHOSPHORUS Routine 09/08/2022 1:55 AM EDT MAGNESIUM Routine 09/08/2022 1:55 AM EDT LITHIUM LEVEL Routine 09/08/2022 1:55 AM EDT BASIC METABOLIC PANEL Routine 09/08/2022 1:55 AM EDT PHOSPHORUS Routine 09/07/2022 12:34 PM EDT MAGNESIUM Routine 09/07/2022 12:34 PM EDT LITHIUM LEVEL Routine 09/07/2022 12:34 PM EDT BASIC METABOLIC PANEL Routine 09/07/2022 12:34 PM EDT HAPTOGLOBIN Routine 09/07/2022 6:09 AM EDT FOLATE, SERUM Routine 09/07/2022 6:09 AM EDT FERRITIN Routine 09/07/2022 6:09 AM EDT VITAMIN B12 Routine 09/07/2022 6:09 AM EDT LITHIUM LEVEL Routine 09/07/2022 6:09 AM EDT EKG 12-LEAD STAT 09/07/2022 4:04 AM EDT [place] intoxication, accidental or unintentional, initial encounter HEMOGRAM Routine 09/07/2022 1:55 AM EDT DIFFERENTIAL, AUTOMATED Routine 09/07/2022 1:55 AM EDT IRON AND TIBC Routine 09/07/2022 1:55 AM EDT RETICULOCYTE COUNT Routine 09/07/2022 1: 55 AM EDT HC CBC,PLT & AUTO DIFF Routine 1:55 AM EDT PHOSPHORUS Routine 09/07/2022 1:55 AM EDT MAGNESIUM Routine 09/07/2022 1:55 AM EDT LACTATE DEHYDROGENASE Routine 09/07/2022 1:55 AM EDT LITHIUM LEVEL Timed 09/07/2022 1:55 AM EDT HEPATIC FUNCTION PANEL STAT 1:55 AM EDT COMPREHENSIVE METABOLIC PANEL Routine 09/07/2022 1:55 AM EDT HEMOGRAM STAT 09/06/2022 7:49 PM EDT DIFFERENTIAL, AUTOMATED STAT 09/06/2022 7:49 PM EDT GOLD TUBE HOLD STAT 09/06/2022 7:49 PM EDT BLUE TUBE HOLD STAT 09/06/2022 7:49 PM EDT GREEN TUBE HOLD STAT 09/06/2022 7:49 PM EDT LAVENDER TUBE HOLD STAT 09/06/2022 7: 49 PM EDT LIPASE STAT 09/06/2022 7:49 PM EDT URINE HOLD Routine 09/06/2022 7:23 PM EDT LITHIUM LEVEL STAT 09/06/2022 6:55 PM EDT BASIC METABOLIC PANEL STAT 09/06/2022 6:55 PM EDT EKG 12-LEAD STAT 09/06/2022 6:19 PM EDT documented in this encounter Results [...] PM Electronically signed by: Dawn Sanchez MD, [facility] ([phone]), at 10/01/2022 7:46 PM Thank you for letting us participate in the care of this patient. If you are a health care provider and have any questions regarding this report, please contact the number above. For patients who have questions, please contact the health nanny caregiver that requested your imaging first. ?FAISAL Sierra Straw Hat Plunger Operator Electronically Signed Final Report ?? 10/01/2022 07:53 pm Narrative 10/01/2022 7:53 PM EDT Renal ? (Signed Final 10/01/2022 07:53 pm) PATIENT INFO: ID #: ? [id number] ?: ??[birth year] (47 yrs)(F) Name: ? EDYTA ROWE ? Visit Date: 10/01/2022 02:08 pm PERFORMED BY: Attending: ?Laura NÚÑEZ, Dawn Wiseman Resident: ? Jayne NÚÑEZ, [facility] Performed By: ? Monster Bhatia RDMS Referred By: ?SHAKA EPPS Location: ? [place] SERVICE(S) PROVIDED: URETRO - Retroperitoneal Complete - [id number] ? [id number] INDICATIONS: long-standing lithium use and CKD, requested [...] 10/01/2022 07:53 pm) PATIENT INFO: ID #: [id number] : [birth year] (47 yrs)(F) Name: EDYTA ROWE Visit Date: 10/01/2022 02:08 pm PERFORMED BY: Attending: Dawn Sanchez MD Resident: Jayne NÚÑEZ [facility] Performed By: Monster Bhatia RDMS Referred By: SHAKA EPPS Location: [place] SERVICE(S) PROVIDED: URETRO - Retroperitoneal Complete - [id number] INDICATIONS: long-standing lithium use and CKD, requested [...] PM Electronically signed by: Dawn Sanchez MD, [facility] ([phone]), at 10/01/2022 7:46 PM Thank you for letting us participate in the care of this patient. If you are a health care provider and have any questions regarding this report, please contact the number above. For patients who have questions, please contact the health nanny caregiver that requested your imaging first. Dawn Sanchez, E Straw Hat Plunger Operator Electronically Signed Final Report 10/01/2022 07:53 pm Shaka Epps MD IM US GEN ORDERABLE S * Differential, Automated (09/09/2022 4:46 AM EDT) Neutrophil % 69.2 % [facility] Neutrophil Absolute 4.46 1.70 - 6.10 x10(3)/[facility] Lymph % 19.7 % [facility] Lymphocytes Abs 1.3 0.9 - 3.2 x10(3)/[facility] Monocyte % 5.9 % [facility] Monocyte Abs 0.4 0.3 - 0.9 x10(3)/[facility] Eos % 4.5 % [facility] Eosinophils Abs 0.3 0.0 - 0.4 x10(3)/[facility] Basophil % 0.5 % [facility] Baso Absolute 0.0 0.0 - 0.1 x10(3)/[facility] Immature Gran % 0.20 % [facility] Comment: Immature granulocytes(IG's)percentage and absolute count will include metamyelocytes, myelocytes, and promyelocytes. Blood smears from CBCs yielding IG's will be scanned manually for concordance. If this scan disagrees with the automated IG or if promyelocytes are noted, a manual differential will be performed. Immature Gran Absolute 0.01 0.00 - 0.04 x10(3)/[facility] Blood 09/09/2022 4:46 AM EDT 09/09/2022 4:58 AM EDT Narrative Resulting Agency Comment Spec In Lab Shaka Epps MD HEMATOLOGY ORDERABLE S [facility] [place] [address] * (ABNORMAL) Hemogram (09/09/2022 4:46 AM EDT) White Blood Cell 6.4 4.0 - 9.5 x10(3)/mc L [facility] Red Blood Cell 4.19 4.00 - 5.21 x10(6)/mc L [facility] Hemoglobin 10.1(L) 11.7 - 15.5 g/dL [facility] Hematocrit 35.6(L) 35.7 - 45.8 % [facility] Mean Cell Volume 85.0 82.6 - 94.4 fL [facility] Mean Cell Hemoglobin 24.1(L) 27.1 - 32.0 pg [facility] Mean Cell Hemoglobin Concentration 28.4(L) 31.7 - 35.0 g/dL [facility] Platelet 289 145 - 357 x10(3)/mc L [facility] RDW Standard Deviation 54.7(H) 37.0 - 46.0 fL [facility] RDW coefficient of variation 17.7(H) 11.5 - 14.1 % [facility] Mean Platelet Volume 9.3 7.6 - 12.9 fL [facility] NRBC% auto 0.0 % [facility] NRBC Absolute 0.000 0.000 - 0.000 x10(3)/ L [facility] Blood 09/09/2022 4:46 AM EDT 09/09/2022 4:58 AM EDT Narrative Resulting Agency Comment Spec In Lab Shaka Epps MD HEMATOLOGY ORDERABLE S Performing Organization Address [facility]/ZIP Co de Phone Number [facility] [place] [address] * (ABNORMAL) Basic Metabolic Panel (non-fasting) (09/09/2022 4:46 AM EDT) Glucose 102 65 - 199 mg/dL [facility] Comment:Diabetes: >=200 mg/d L plus symptoms Blood Urea Nitrogen 14 8 - 18 mg/dL [facility] Creatinine 1.71(H) 0.70 - 1.20 mg/dL [facility] Sodium 145 135 - 145 mmol/L [facility] Potassium 4.5 3.5 - 5.0 mmol/L [facility] Comment: Please note: ??Patients with WBC >100,000 may have falsely elevated Potassium levels. ??For accurate Potassium quantification in these patients send serum separator tube (gold top) for subsequent determinations. ??Contact the Clinical Chemistry Laboratory if there are any questions. Chloride 115(H) 98 - 107 mmol/L [facility] Carbon Dioxide 22 22 - 31 mmol/L [facility] Anion Gap 8 5 - 15 mmol/L [facility] Calcium 10.3 8.5 - 10.5 mg/dL [facility] Est Glomerular Filtration Rate 37(L) >=60 mL/min/1. 73 m?? [facility] Comment: This patient's estimated GFR [...] and symptoms in addition to eGFR. Blood 09/09/2022 4:46 AM EDT 09/09/2022 4:58 AM EDT Narrative Resulting Agency Comment Spec In Lab Shaka Epps MD CHEMISTRY ORDERABLES [facility] [place] [address] * (ABNORMAL) [place] level (09/09/2022 4:46 AM EDT) [place] 0.50(L) 0.60 - 1.20 mmol/L [facility] Comment:result rechecked-KS Blood 09/09/2022 4:46 AM EDT 09/09/2022 4:58 AM EDT Narrative Resulting Agency Comment Spec In Lab Shaka Epps MD CHEMISTRY ORDERABLES Performing Organization Address City/[facility]/ZIP Co de Phone Number [facility] [place] [address] * Phosphorus (09/09/2022 4:46 AM EDT) Phosphorus 3.6 2.5 - 4.5 mg/dL [facility] Blood 09/09/2022 4:46 AM EDT 09/09/2022 4:58 AM EDT Narrative Resulting Agency Comment Spec In Lab Shaka Epps MD CHEMISTRY ORDERABLES Performing Organization Address [facility] Co de Phone Number [facility] [place] [address] * Magnesium (09/09/2022 4:46 AM EDT) Magnesium 0.95 0.69 - 1.07 mmol/L [facility] Blood 09/09/2022 4:46 AM EDT 09/09/2022 4:58 AM EDT Narrative Resulting Agency Comment Spec In Lab Shaka Epps MD CHEMISTRY ORDERABLES Performing Organization Address City/[facility] Co de Phone Number [facility] [place] [address] * Vitamin D, 25-Hydroxy (09/09/2022 4:46 AM EDT) Vitamin D Total 25 OH 24 21 - 100 ng/mL [facility] Vit D Interp Insufficient [facility] Blood 09/09/2022 4:46 AM EDT 09/09/2022 4:58 AM EDT Narrative Resulting Agency Comment Spec In Lab Roseann Ordonez MD [place] [address] * (ABNORMAL) PTH (09/09/2022 4:46 AM EDT) Parathyroid Hormone 143(H) 15 - 65 pg/mL [facility] Blood 09/09/2022 4:46 AM EDT 09/09/2022 4:58 AM EDT Narrative Resulting Agency Comment Spec In Lab Roseann Ordonez MD [place] [address] * (ABNORMAL) Differential, Automated (09/08/2022 1:55 AM EDT) Pathologist [facility] Neutrophil % 75.3 % [facility] Neutrophil Absolute 7.00(H) 1.70 - 6.10 x10(3)/mc L [facility] Lymph % 16.5 % [facility] Lymphocytes Abs 1.5 0.9 - 3.2 x10(3)/ L [facility] Monocyte % 6.1 % [facility] Monocyte Abs 0.6 0.3 - 0.9 x10(3)/ L [facility] Eos % 1.5 % [facility] Eosinophils Abs 0.1 0.0 - 0.4 x10(3)/mc L [facility] Basophil % 0.4 % [facility] Baso Absolute 0.0 0.0 - 0.1 x10(3)/mc L [facility] Immature Gran % 0.20 % [facility] Comment: Immature granulocytes(IG's)percentage and absolute count will include metamyelocytes, myelocytes, and promyelocytes. Blood smears from CBCs yielding IG's will be scanned manually for concordance. If this scan disagrees with the automated IG or if promyelocytes are noted, a manual differential will be performed. Immature Gran Absolute 0.02 0.00 - 0.04 x10(3)/mc L [facility] Blood 09/08/2022 1:55 AM EDT 09/08/2022 2:01 AM EDT Narrative Resulting Agency Comment Spec In Lab Joaquina Vallejo MD HEMATOLOGY ORDERA BLES [facility] [place] [address] * (ABNORMAL) Hemogram (09/08/2022 1:55 AM EDT) White Blood Cell 9.3 4.0 - 9.5 x10(3)/[facility] Red Blood Cell 4.22 4.00 - 5.21 x10(6)/[facility] Hemoglobin 10.2(L) 11.7 - 15.5 g/dL [facility] Hematocrit 36.4 35.7 - 45.8 % [facility] Mean Cell Volume 86.3 82.6 - 94.4 fL [facility] Mean Cell Hemoglobin 24.2(L) 27.1 - 32.0 pg [facility] Mean Cell Hemoglobin Concentration 28.0(L) 31.7 - 35.0 g/dL [facility] Platelet 303 145 - 357 x10(3)/ L [facility] RDW Standard Deviation 54.6(H) 37.0 - 46.0 fL [facility] RDW coefficient of variation 17.2(H) 11.5 - 14.1 % [facility] Mean Platelet Volume 9.4 7.6 - 12.9 fL [facility] NRBC% auto 0.0 % [facility] NRBC Absolute 0.000 0.000 - 0.000 x10(3)/[facility] Blood 09/08/2022 1:55 AM EDT 09/08/2022 2:01 AM EDT Narrative Resulting Agency Comment Spec In Lab Joaquina Vallejo MD HEMATOLOGY ORDERA BLES [facility] [place] [address] * (ABNORMAL) Basic Metabolic Panel (non-fasting) (09/08/2022 1:55 AM EDT) Glucose 134 65 - 199 mg/dL [facility] Comment:Diabetes: >=200 mg/d L plus symptoms Blood Urea Nitrogen 11 8 - 18 mg/dL [facility] Creatinine 1.57(H) 0.70 - 1.20 mg/dL [facility] Sodium 145 135 - 145 mmol/L [facility] Potassium 4.5 3.5 - 5.0 mmol/L [facility] Comment: Please note: ??Patients with WBC >100,000 may have falsely elevated Potassium levels. ??For accurate Potassium quantification in these patients send serum separator tube (gold top) for subsequent determinations. ??Contact the Clinical Chemistry Laboratory if there are any questions. Chloride 117(H) 98 - 107 mmol/L [facility] Carbon Dioxide 18(L) 22 - 31 mmol/L [facility] Anion Gap 10 5 - 15 mmol/L [facility] Calcium 10.2 8.5 - 10.5 mg/dL [facility] Est Glomerular Filtration Rate 40(L) >=60 mL/min/1. 73 m?? [facility] Comment: This patient's estimated GFR [...] and symptoms in addition to eGFR. Blood 09/08/2022 1:55 AM EDT 09/08/2022 2:01 AM EDT Narrative Resulting Agency Comment Spec In Lab Shaka Epps MD CHEMISTRY ORDERABLES [facility] [place] [address] * [place] level (09/08/2022 1:55 AM EDT) [place] 0.80 0.60 - 1.20 mmol/L [facility] Blood 09/08/2022 1:55 AM EDT 09/08/2022 2:01 AM EDT Narrative Resulting Agency Comment Spec In Lab Shaka Epps MD CHEMISTRY ORDERABLES Performing Organization Address [facility] Co de Phone Number [facility] [place] [address] * Phosphorus (09/08/2022 1:55 AM EDT) Phosphorus 3.1 2.5 - 4.5 mg/dL [facility] Blood 09/08/2022 1:55 AM EDT 09/08/2022 2:01 AM EDT Narrative Resulting Agency Comment Spec In Lab Shaka Epps MD CHEMISTRY ORDERABLES Performing Organization Address [facility] Co de Phone Number [facility] [place] [address] * Magnesium (09/08/2022 1:55 AM EDT) Magnesium 0.99 0.69 - 1.07 mmol/L [facility] Blood 09/08/2022 1:55 AM EDT 09/08/2022 2:01 AM EDT Narrative Resulting Agency Comment Spec In Lab Shaka Epps MD CHEMISTRY ORDERABLES Performing Organization Address [facility] Co de Phone Number [facility] [place] [address] * Phosphorus (09/07/2022 12:34 PM EDT) Phosphorus 2.6 2.5 - 4.5 mg/dL [facility] Blood 09/07/2022 12:3 4 PM EDT 09/07/2022 1:05 PM EDT Narrative Resulting Agency Comment Spec In Lab Joaquina Vallejo MD CHEMISTRY ORDERAB LES Performing Organization Address [facility] Co de Phone Number [facility] [place] [address] * (ABNORMAL) Magnesium (09/07/2022 12:34 PM EDT) Magnesium 1.17(H) 0.69 - 1.07 mmol/L [facility] Blood 09/07/2022 12:3 4 PM EDT 09/07/2022 1:05 PM EDT Narrative Resulting Agency Comment Spec In Lab Joaquina Vallejo MD CHEMISTRY ORDERAB LES Performing Organization Address City/[facility]/ZIP Co de Phone Number [facility] [place] [address] * [place] level (09/07/2022 12:34 PM EDT) [place] 1.10 0.60 - 1.20 mmol/L [facility] Blood 09/07/2022 12:3 4 PM EDT 09/07/2022 1:05 PM EDT Narrative Resulting Agency Comment Spec In Lab Joaquina Vallejo MD CHEMISTRY ORDERAB LES Performing Organization Address [facility] Co de Phone Number [facility] [address] * (ABNORMAL) Basic Metabolic Panel (non-fasting) (09/07/2022 12:34 PM EDT) Glucose 105 65 - 199 mg/dL [facility] Comment:Diabetes: >=200 mg/d L plus symptoms Blood Urea Nitrogen 11 8 - 18 mg/dL [facility] Creatinine 1.61(H) 0.70 - 1.20 mg/dL [facility] Sodium 145 135 - 145 mmol/L [facility] Potassium 4.3 3.5 - 5.0 mmol/L [facility] Comment: Please note: ??Patients with WBC >100,000 may have falsely elevated Potassium levels. ??For accurate Potassium quantification in these patients send serum separator tube (gold top) for subsequent determinations. ??Contact the Clinical Chemistry Laboratory if there are any questions. Chloride 118(H) 98 - 107 mmol/L [facility] Carbon Dioxide 20(L) 22 - 31 mmol/L [facility] Anion Gap 7 5 - 15 mmol/L [facility] Calcium 10.0 8.5 - 10.5 mg/dL [facility] Est Glomerular Filtration Rate 39(L) >=60 mL/min/1. 73 m?? [facility] Comment: This patient's estimated GFR [...] and symptoms in addition to eGFR. Blood 09/07/2022 12:3 4 PM EDT 09/07/2022 1:05 PM EDT Narrative Resulting Agency Comment Spec In Lab Joaquina Vallejo MD CHEMISTRY ORDERAB LES Performing Organization Address City/[facility] Co de Phone Number [facility] [place] [address] * Haptoglobin (09/07/2022 6:09 AM EDT) [facility] Haptoglobin 179 30 - 200 mg/dL [facility] Comment: Haptoglobin concentrations in newborns is low to undetectable; however, adult concentrations are usually attained by 4 months of age. ??No sex-related differences for haptoglobin have been detected. Blood Venous Draw / Unknown 09/07/2022 6:09 AM EDT 09/07/2022 6:24 AM EDT Narrative Resulting Agency Comment Spec In Lab Joaquina Vallejo MD CHEMISTRY ORDERAB LES Performing Organization Address City/[facility]/ZIP Co de Phone Number [facility] [place] [address] * (ABNORMAL) Ferritin (09/07/2022 6:09 AM EDT) [facility] Ferritin 11(L) 15 - 150 ng/mL [facility] Comment: Pediatric reference ranges not verified at [facility], interpret with caution. Reference ranges for females greater than 50 years of age approach values for men, i.e., 30-400 ng/mL. Blood Venous Draw / Unknown 09/07/2022 6:09 AM EDT 09/07/2022 6:24 AM EDT Narrative Resulting Agency Comment Spec In Lab Joaquina Vallejo MD CHEMISTRY ORDERAB LES Performing Organization Address City/[facility]/ZIP Co de Phone Number [facility] [place] [address] * Folate, serum (09/07/2022 6:09 AM EDT) Folate 16.8 4.8 - 24.2 ng/mL [facility] Blood Venous Draw / Unknown 09/07/2022 6:09 AM EDT 09/07/2022 6:24 AM EDT Narrative Resulting Agency Comment Spec In Lab Joaquina Vallejo MD CHEMISTRY ORDERAB LES Performing Organization Address City/[facility] Co de Phone Number [facility] [place] [address] * Vitamin B12 (09/07/2022 6:09 AM EDT) Vitamin B12 613 232 - 1,245 pg/mL [facility] Blood Venous Draw / Unknown 09/07/2022 6:09 AM EDT 09/07/2022 6:24 AM EDT Narrative Resulting Agency Comment Spec In Lab Joaquina Vallejo MD CHEMISTRY ORDERAB LES Performing Organization Address City/[facility]/ZIP Co de Phone Number [facility] [place] [address] * (ABNORMAL) [place] level (09/07/2022 6:09 AM EDT) [place] 1.42(H) 0.60 - 1.20 mmol/L [facility] Blood 09/07/2022 6:09 AM EDT 09/07/2022 6:16 AM EDT Narrative Resulting Agency Comment Spec In Lab Joaquina Vallejo MD CHEMISTRY ORDERAB LES [facility] [place] [address] * EKG 12 Lead (09/07/2022 4:04 AM EDT) Ventricular rate 56 BPM MUSE SYSTEM Atrial Rate 56 BPM MUSE SYSTEM P-R Interval 172 ms MUSE SYSTEM QRS Duration 78 ms MUSE SYSTEM Q-T Interval 424 ms MUSE SYSTEM QTC Calculated (Bezet) 409 ms MUSE SYSTEM Calculated P Beryl 103 degrees MUSE SYSTEM Calculated R Beryl 170 degrees MUSE SYSTEM Calculated T Beryl 134 degrees MUSE SYSTEM INTERPRETATION Suspect arm lead reversal, interpretation assumes no reversal Sinus bradycardia Right axis deviation Nonspecific ST and T wave abnormality Abnormal ECG No previous ECGs available Confirmed by Alyson Beaulieu MD ([id number]) on 09/07/2022 7:44:56 AM MUSE SYSTEM 09/07/2022 4:04 AM EDT 09/07/2022 7:44 AM EDT Joaquina Vallejo MD ECG ORDERABLES Performing Organization Address City/[facility]/ZIP Co de Phone Number MUSE SYSTEM * (ABNORMAL) Reticulocyte Count (09/07/2022 1:55 AM EDT) Pathologist [facility] Reticulocyte % 0.9 0.7 - 2.5 % [facility] Retic Abs # 0.040 0.020 - 0.110 x10(6)/[facility] Immature Retic% 13.1 0.5 - 13.8 % [facility] Reticulated Hgb 26.8(L) 29.8 - 39.4 pg [facility] Blood Venous Draw / Unknown 09/07/2022 1:55 AM EDT 09/07/2022 2:02 AM EDT Narrative Resulting Agency Comment Spec In Lab Joaquina Vallejo MD HEMATOLOGY ORDERA BLES Performing Organization Address City/[facility]/ZIP Co de Phone Number [facility] [place] [address] * (ABNORMAL) Lactate Dehydrogenase (09/07/2022 1:55 AM EDT) Lactate Dehydrogenase 263(H) 110 - 220 unit/L [facility] Blood Venous Draw / Unknown 09/07/2022 1:55 AM EDT 09/07/2022 2:09 AM EDT Narrative Resulting Agency Comment Spec In Lab Joaquina Vallejo MD CHEMISTRY ORDERAB LES Performing Organization Address City/[facility] Co de Phone Number [facility] [place] [address] * (ABNORMAL) Iron and TIBC (09/07/2022 1:55 AM EDT) Pathologist [facility] Iron 25(L) 30 - 150 mcg/dL [facility] TIBC 350 250 - 450 mcg/dL [facility] Iron Saturation 7(L) 20 - 50 % [facility] Blood Venous Draw / Unknown 09/07/2022 1:55 AM EDT 09/07/2022 2:09 AM EDT Narrative Resulting Agency Comment Spec In Lab Joaquina Vallejo MD CHEMISTRY ORDERAB LES Performing Organization Address City/[facility] Co de Phone Number [facility] [place] [address] * (ABNORMAL) Differential, Automated (09/07/2022 1:55 AM EDT) Pathologist [facility] Neutrophil % 81.3 % [facility] Neutrophil Absolute 7.35(H) 1.70 - 6.10 x10(3)/mc L [facility] Lymph % 10.6 % [facility] Lymphocytes Abs 1.0 0.9 - 3.2 x10(3)/mc L [facility] Monocyte % 6.1 % [facility] Monocyte Abs 0.6 0.3 - 0.9 x10(3)/mc L [facility] Eos % 1.5 % [facility] Eosinophils Abs 0.1 0.0 - 0.4 x10(3)/mc L [facility] Basophil % 0.2 % [facility] Baso Absolute 0.0 0.0 - 0.1 x10(3)/mc L [facility] Immature Gran % 0.30 % [facility] Comment: Immature granulocytes(IG's)percentage and absolute count will include metamyelocytes, myelocytes, and promyelocytes. Blood smears from CBCs yielding IG's will be scanned manually for concordance. If this scan disagrees with the automated IG or if promyelocytes are noted, a manual differential will be performed. Immature Gran Absolute 0.03 0.00 - 0.04 x10(3)/ L [facility] Blood 09/07/2022 1:55 AM EDT 09/07/2022 2:02 AM EDT Narrative Resulting Agency Comment Spec In Lab Joaquina Vallejo MD HEMATOLOGY ORDERA BLES [facility] [place] [address] * (ABNORMAL) Hemogram (09/07/2022 1:55 AM EDT) White Blood Cell 9.0 4.0 - 9.5 x10(3)/[facility] Red Blood Cell 3.91(L) 4.00 - 5.21 x10(6)/[facility] Hemoglobin 9.5(L) 11.7 - 15.5 g/dL [facility] Hematocrit 33.3(L) 35.7 - 45.8 % [facility] Mean Cell Volume 85.2 82.6 - 94.4 fL [facility] Mean Cell Hemoglobin 24.3(L) 27.1 - 32.0 pg [facility] Mean Cell Hemoglobin Concentration 28.5(L) 31.7 - 35.0 g/dL [facility] Platelet 277 145 - 357 x10(3)/[facility] RDW Standard Deviation 51.9(H) 37.0 - 46.0 fL [facility] RDW coefficient of variation 16.7(H) 11.5 - 14.1 % [facility] Mean Platelet Volume 8.9 7.6 - 12.9 fL [facility] NRBC% auto 0.0 % [facility] NRBC Absolute 0.000 0.000 - 0.000 x10(3)/ L [facility] Blood 09/07/2022 1:55 AM EDT 09/07/2022 2:02 AM EDT Narrative Resulting Agency Comment Spec In Lab Joaquina Vallejo MD HEMATOLOGY ORDERA BLES [facility] [place] [address] * (ABNORMAL) Comprehensive metabolic panel (non-fasting) (09/07/2022 1:55 AM EDT) Glucose 110 65 - 199 mg/dL [facility] Comment:Diabetes: >=200 mg/d L plus symptoms Blood Urea Nitrogen 14 8 - 18 mg/dL [facility] Creatinine 1.74(H) 0.70 - 1.20 mg/dL [facility] Sodium 145 135 - 145 mmol/L [facility] Potassium 4.3 3.5 - 5.0 mmol/L [facility] Comment: Please note: ??Patients with WBC >100,000 may have falsely elevated Potassium levels. ??For accurate Potassium quantification in these patients send serum separator tube (gold top) for subsequent determinations. ??Contact the Clinical Chemistry Laboratory if there are any questions. Chloride 120(H) 98 - 107 mmol/L [facility] Comment:result rechecked-JSJ Carbon Dioxide 17(L) 22 - 31 mmol/L [facility] Anion Gap 8 5 - 15 mmol/L [facility] Calcium 9.5 8.5 - 10.5 mg/dL [facility] Protein, Total 6.1 6.1 - 8.0 g/dL [facility] Albumin 3.8 3.2 - 5.2 g/dL [facility] Aspartate Aminotransferase 10 0 - 30 unit/L [facility] Alanine Aminotransferase 11 0 - 30 unit/L [facility] Alkaline Phosphatase 136(H) 35 - 105 unit/L [facility] Bilirubin, Total <0.2(L) 0.2 - 1.3 mg/dL [facility] Est Glomerular Filtration Rate 36(L) >=60 mL/min/1. 73 m?? [facility] Comment: This patient's estimated GFR [...] and symptoms in addition to eGFR. Blood 09/07/2022 1:55 AM EDT 09/07/2022 2:02 AM EDT Narrative Resulting Agency Comment Spec In Lab Joaquina Vallejo MD CHEMISTRY ORDERAB LES Performing Organization Address City/[facility]/ZIP Co de Phone Number [facility] [place] [address] * Magnesium (09/07/2022 1:55 AM EDT) Magnesium 0.99 0.69 - 1.07 mmol/L [facility] Blood 09/07/2022 1:55 AM EDT 09/07/2022 2:02 AM EDT Narrative Resulting Agency Comment Spec In Lab Joaquina Vallejo MD CHEMISTRY ORDERAB LES Performing Organization Address City/[facility]/ZIP Co de Phone Number [facility] [place] [address] * Phosphorus (09/07/2022 1:55 AM EDT) Phosphorus 2.5 2.5 - 4.5 mg/dL [facility] Blood 09/07/2022 1:55 AM EDT 09/07/2022 2:02 AM EDT Narrative Resulting Agency Comment Spec In Lab Joaquina Vallejo MD CHEMISTRY ORDERAB LES Performing Organization Address City/[facility]/ZIP Co de Phone Number [facility] [place] [address] * (ABNORMAL) Hepatic Function Panel (09/07/2022 1:55 AM EDT) Protein, Total 6.0(L) 6.1 - 8.0 g/dL [facility] Albumin 3.8 3.2 - 5.2 g/dL [facility] Aspartate Aminotransferase 13 0 - 30 unit/L [facility] Alanine Aminotransferase 15 0 - 30 unit/L [facility] Alkaline Phosphatase 134(H) 35 - 105 unit/L [facility] Bilirubin, Total <0.2(L) 0.2 - 1.3 mg/dL [facility] Bilirubin, Direct 0.1 0.0 - 0.3 mg/dL [facility] Blood 09/07/2022 1:55 AM EDT 09/07/2022 2:01 AM EDT Narrative Resulting Agency Comment Spec In Lab Joaquina Vallejo MD CHEMISTRY ORDERAB LES Performing Organization Address [facility] Co de Phone Number [facility] [place] [address] * (ABNORMAL) [place] level (09/07/2022 1:55 AM EDT) [place] 1.52(Criti robbie) 0.60 - 1.20 mmol/L [facility] Comment: Called by: JAGRUTI, Read back by: Km Hilliard, Date/Time:09/07/22 02:49. Blood 09/07/2022 1:55 AM EDT 09/07/2022 2:01 AM EDT Narrative Resulting Agency Comment Spec In Lab Joaquina Vallejo MD CHEMISTRY ORDERAB LES Performing Organization Address City/[facility]/ZIP Co de Phone Number [facility] [place] [address] * Lipase (09/06/2022 7:49 PM EDT) Lipase 47 0 - 60 unit/L [facility] Blood No Charge / Unknown 09/06/2022 7:49 PM EDT 09/06/2022 8:03 PM EDT Narrative Resulting Agency Comment Spec In Lab Xander Coombs MD CHEMISTRY ORDERABLE S Performing Organization Address City/[facility]/ZIP Co de Phone Number [facility] [place] [address] * (ABNORMAL) Differential, Automated (09/06/2022 7:49 PM EDT) Pathologist [facility] Neutrophil % 76.8 % [facility] Neutrophil Absolute 6.43(H) 1.70 - 6.10 x10(3)/ L [facility] Lymph % 14.2 % [facility] Lymphocytes Abs 1.2 0.9 - 3.2 x10(3)/ L [facility] Monocyte % 6.2 % [facility] Monocyte Abs 0.5 0.3 - 0.9 x10(3)/[facility] Eos % 2.1 % [facility] Eosinophils Abs 0.2 0.0 - 0.4 x10(3)/[facility] Basophil % 0.5 % [facility] Baso Absolute 0.0 0.0 - 0.1 x10(3)/[facility] Immature Gran % 0.20 % [facility] Comment: Immature granulocytes(IG's)percentage and absolute count will include metamyelocytes, myelocytes, and promyelocytes. Blood smears from CBCs yielding IG's will be scanned manually for concordance. If this scan disagrees with the automated IG or if promyelocytes are noted, a manual differential will be performed. Immature Gran Absolute 0.02 0.00 - 0.04 x10(3)/ L [facility] Blood No Charge / Unknown 09/06/2022 7:49 PM EDT 09/06/2022 8:04 PM EDT Narrative Resulting Agency Comment Spec In Lab Iggy Lynch MD HEMATOLOGY ORDERA BLES [facility] [place] [address] * (ABNORMAL) Hemogram (09/06/2022 7:49 PM EDT) Pathologist [facility] White Blood Cell 8.4 4.0 - 9.5 x10(3)/ L [facility] Red Blood Cell 4.07 4.00 - 5.21 x10(6)/[facility] Hemoglobin 9.8(L) 11.7 - 15.5 g/dL [facility] Hematocrit 34.7(L) 35.7 - 45.8 % [facility] Mean Cell Volume 85.3 82.6 - 94.4 fL [facility] Mean Cell Hemoglobin 24.1(L) 27.1 - 32.0 pg [facility] Mean Cell Hemoglobin Concentration 28.2(L) 31.7 - 35.0 g/dL [facility] Platelet 276 145 - 357 x10(3)/mc L [facility] RDW Standard Deviation 51.7(H) 37.0 - 46.0 fL [facility] RDW coefficient of variation 16.5(H) 11.5 - 14.1 % [facility] Mean Platelet Volume 9.3 7.6 - 12.9 fL [facility] NRBC% auto 0.0 % [facility] NRBC Absolute 0.000 0.000 - 0.000 x10(3)/mc L [facility] Blood No Charge / Unknown 09/06/2022 7:49 PM EDT 09/06/2022 8:04 PM EDT Narrative Resulting Agency Comment Spec In Lab Iggy Lynch MD HEMATOLOGY ORDERA BLES Performing Organization Address City/[facility]/ZIP Co de Phone Number [facility] [place] [address] * Blue Tube HOLD (09/06/2022 7:49 PM EDT) Blue Hold Sample in lab. [facility] Blood 09/06/2022 7:49 PM EDT 09/06/2022 8:01 PM EDT Iggy Lynch MD HEMATOLOGY ORDERA BLES [facility] [place] [address] * Lavender Tube HOLD (09/06/2022 7:49 PM EDT) Lavender Hold Sample in lab. [facility] Blood 09/06/2022 7:49 PM EDT 09/06/2022 8:01 PM EDT Iggy Lynch MD HEMATOLOGY ORDERA BLES [facility] [place] [address] * Green Tube HOLD (09/06/2022 7:49 PM EDT) Green Hold Sample in lab. [facility] Blood 09/06/2022 7:49 PM EDT 09/06/2022 8:01 PM EDT Iggy Lynch MD CHEMISTRY ORDERAB LES Performing Organization Address City/[facility]/ZIP Co de Phone Number [facility] [place] [address] * Gold Tube HOLD (09/06/2022 7:49 PM EDT) Gold Hold Sample in lab. [facility] Blood 09/06/2022 7:49 PM EDT 09/06/2022 8:01 PM EDT Iggy Lynch MD CHEMISTRY ORDERAB LES Performing Organization Address [facility]/ZIP Co de Phone Number [facility] [place] [address] * Urine Hold (09/06/2022 7:23 PM EDT) Hold, Urine Sample in lab. [facility] Urine Urine / Unknown 09/06/2022 7 :23 PM EDT 09/06/2022 7:23 PM EDT Xander Coombs MD URINE ORDERABLES Performing Organization Address City/[facility]/ZIP Co de Phone Number [facility] [place] [address] * (ABNORMAL) [place] level (09/06/2022 6:55 PM EDT) [place] 2.02(Criti robbie) 0.60 - 1.20 mmol/L [facility] Comment:CALLED CORTEZ Perez T [id number] JAL Blood 09/06/2022 6:55 PM EDT 09/06/2022 7:24 PM EDT Narrative Resulting Agency Comment Spec In Lab Iggy Lynch MD CHEMISTRY ORDERAB LES [facility] [place] [address] * (ABNORMAL) Basic Metabolic Panel (non-fasting) (09/06/2022 6:55 PM EDT) Glucose 104 65 - 199 mg/dL [facility] Comment:Diabetes: >=200 mg/d L plus symptoms Blood Urea Nitrogen 14 8 - 18 mg/dL [facility] Creatinine 1.86(H) 0.70 - 1.20 mg/dL [facility] Sodium 138 135 - 145 mmol/L [facility] Potassium 4.5 3.5 - 5.0 mmol/L [facility] Comment: Please note: ??Patients with WBC >100,000 may have falsely elevated Potassium levels. ??For accurate Potassium quantification in these patients send serum separator tube (gold top) for subsequent determinations. ??Contact the Clinical Chemistry Laboratory if there are any questions. Chloride 110(H) 98 - 107 mmol/L [facility] Carbon Dioxide 19(L) 22 - 31 mmol/L [facility] Anion Gap 9 5 - 15 mmol/L [facility] Calcium 10.4 8.5 - 10.5 mg/dL [facility] Est Glomerular Filtration Rate 33(L) >=60 mL/min/1. 73 m?? [facility] Comment: This patient's estimated GFR [...] and symptoms in addition to eGFR. Blood 09/06/2022 6:55 PM EDT 09/06/2022 7:24 PM EDT Narrative Resulting Agency Comment Spec In Lab Iggy Lynch MD CHEMISTRY ORDERAB LES Performing Organization Address City/[facility] Co de Phone Number [facility] [place] [address] * EKG 12 Lead (09/06/2022 6:19 PM EDT) Ventricular rate 56 BPM MUSE SYSTEM Atrial Rate 56 BPM MUSE SYSTEM P-R Interval 168 ms MUSE SYSTEM QRS Duration 92 ms MUSE SYSTEM Q-T Interval 424 ms MUSE SYSTEM QTC Calculated (Bezet) 409 ms MUSE SYSTEM Calculated P Beryl 63 degrees MUSE SYSTEM Calculated R Beryl -2 degrees MUSE SYSTEM Calculated T Beryl 36 degrees MUSE SYSTEM INTERPRETATION Sinus bradycardia with marked sinus arrhythmia Minimal voltage criteria for LVH, may be normal variant Nonspecific T wave abnormality Abnormal ECG No previous ECGs available Confirmed by MD Chip, Mukesh ([id number]) on 09/08/2022 12:44:45 PM MUSE SYSTEM 09/06/2022 6:19 PM EDT 09/08/2022 12:44 PM EDT Joaquina Vallejo MD ECG ORDERABLES Performing Organization Address [facility] Co de Phone Number MUSE SYSTEM documented in this encounter Visit Diagnoses Diagnosis [place] intoxication, accidental or unintentional, initial encounter- Primary [place] intoxication, accidental or unintentional, initial encounter Stage 3b chronic kidney disease (CKD) Elevated lithium level Stage 3b chronic kidney disease (CKD) documented in this encounter Admitting Diagnoses Diagnosis [place] intoxication, accidental or unintentional, initial encounter documented in this encounter Administered Medications Inactive Administered Medications - up to 3 most recent administrations Medication Order MAR Action Action Date Dose Rate Site buPROPion XL (Wellbutrin XL) tablet 150 mg 150 mg, Oral, EVERY MORNING, First dose on 09/07/22 at 0700, Until Discontinued, DO NOT CRUSH OR OPEN, Routine Given 09/09/2022 6:19 AM EDT 150 mg Given 09/08/2022 8:11 AM EDT 150 mg Given 09/07/2022 6:39 AM EDT 150 mg famotidine (Pepcid) tablet 20 mg 20 mg, Oral, 2 TIMES DAILY, First dose on Thu09/07/22 at 0015, Until Discontinued, Routine Given 09/09/2022 10:44 AM EDT 20 mg Given 09/08/2022 9:00 PM EDT 20 mg Given 09/08/2022 8:12 AM EDT 20 mg ferrous sulfate EC (FeroSul) tablet 325 mg 325 mg, Oral, DAILY WITH BREAKFAST, First dose on Thu09/08/22 at 0800, Until Discontinued, DO NOT CRUSH OR OPEN. Take with food or water. , Routine Given 09/09/2022 10:44 AM EDT 325 mg Given 09/08/2022 8:12 AM EDT 325 mg heparin (porcine) (5,000 units/1 mL) subcutaneous injection 5,000 Units 5,000 Units, Subcutaneous, EVERY 12 HOURS SCHEDULED (2 times per day), First dose on Thu09/07/22 at 0015, Until Discontinued, Routine Given 09/09/2022 10:44 AM EDT 5,000 Units Abdominal Tissue Given 09/08/2022 8:20 PM EDT 5,000 Units Given 09/08/2022 8:11 AM EDT 5,000 Units lactated ringers infusion 150 mL/hr, Intravenous, CONTINUOUS, Starting on Thu09/07/22 at 0730, Until Thu09/07/22 at 0756 New Bag 09/07/2022 6:52 AM EDT 150 mL/hr 150 mL/hr lactated ringers infusion 150 mL/hr, Intravenous, CONTINUOUS, Starting on Thu09/07/22 at 0845, Until Thu09/08/22 at 1244 Rate/Dose Verify 09/08/2022 3:54 AM EDT 150 mL/hr 150 mL/hr New Bag 09/07/2022 8:49 PM EDT 150 mL/hr 150 mL/hr New Bag 09/07/2022 2:01 PM EDT 150 mL/hr 150 mL/hr lamoTRIgine (LaMICtal) tablet 200 mg 200 mg, Oral, NIGHTLY, First dose on Thu09/07/22 at 0015, Until Discontinued, Routine Given 09/08/2022 8:19 PM E DT 200 mg Given 09/07/2022 8:42 PM EDT 200 mg Given 09/07/2022 12:14 AM EDT 200 mg lamoTRIgine (LaMICtal) tablet 50 mg 50 mg, Oral, EVERY MORNING, First dose on Thu09/07/22 at 0700, Until Discontinued, Routine Given 09/09/2022 6:19 AM EDT 50 mg Given 09/08/2022 8:11 AM EDT 50 mg Given 09/07/2022 6:39 AM EDT 50 mg levothyroxine (Synthroid) tablet 75 mcg 75 mcg, Oral, EVERY MORNING, First dose on Thu09/07/22 at 0700, Until Discontinued, Routine Given 09/09/2022 6:19 AM EDT 75 mcg Given 09/08/2022 8:12 AM EDT 75 mcg Given 09/07/2022 6:39 AM EDT 75 mcg magnesium sulfate 2 g in sterile water 50 mL infusion 2 g, Intravenous, ONCE, 1 dose, On Thu09/07/22 at 0730, Administer over 120 Minutes New Bag 09/07/2022 7:00 AM EDT 2 g 25 mL/hr prochlorperazine (Compazine) (5 mg/mL) injection 10 mg 10 mg, Intravenous, EVERY 6 HOURS PRN, Starting on 09/06/22 at 2324, Until 09/09/22 at 1421, Nausea, Nausea/Vomiting, If multiple antiemetics are ordered, use ondansetron first. If ondansetron ineffective use prochlorperazine. Only give IV if unable to take PO, Routine prochlorperazine (Compazine) tablet 10 mg 10 mg, Oral, EVERY 6 HOURS PRN, Starting on 09/06/22 at 2324, Until 09/09/22 at 1421, Nausea, Nausea/Vomiting, If multiple antiemetics are ordered, use ondansetron first. If ondansetron ineffective use prochlorperazine. PO Preferred. If patient unable to take PO, may give IV if ordered., Routine sodium chloride 0.9 % (flush) (BD PosiFlush Normal Saline 0.9) flush 5 mL 5 mL, Intravenous, 2 TIMES DAILY, First dose on Thu09/07/22 at 0015, Until Discontinued, Routine Given 09/09/2022 10:50 AM EDT 5 mLs Given 09/08/2022 8:20 PM EDT 5 mLs Given 09/07/2022 8:45 PM EDT 5 mLs Le ft Arm sodium chloride 0.9% 1,000 mL IV bolus at 2,000 mL/hr, Intravenous, ONCE, 1 dose, On 09/06/22 at 1805 Restarted 09/06/2022 7:14 PM EDT 200 0 mL/hr New Bag 09/06/2022 7:07 PM EDT 2000 mL/hr sodium chloride 0.9% infusion 150 mL/hr, Intravenous, CONTINUOUS, Starting on 09/06/22 at 2030, Until 09/07/22 at 0630 New Bag 09/07/2022 4:14 AM EDT 150 mL/hr 150 mL/hr New Bag 09/06/2022 9:17 PM EDT 150 mL/hr 150 mL/hr documented in this encounter Active and Recently Administered Medications Times are shown in EDT. Scheduled Medication Order 09/07/2022 09/08/2022 09/09/2022 buPROPion XL (Wellbutrin XL) tablet 150 mg 150 mg, Oral, EVERY MORNING, First dose on 09/07/22 at 0700, Until Discontinued, DO NOT CRUSH OR OPEN, Routine 0639 (Given - Provider: Km Hilliard RN) 0811 (Given - Provider: Ann Frank RN) 0619 (Given - Provider: Mulu Rome, ORALIA) famotidine (Pepcid) tablet 20 mg 20 mg, Oral, 2 TIMES DAILY, First dose on 09/07/22 at 0015, Until Discontinued, Routine 0014 (Given - Provider: Km Hilliard RN)0840 (Given - Provider: Karlee Bolden RN)204 (Given - Provider: Maria Elena Noriega RN) 0812 (Given - Provider: Ann Frank, ORALIA)2100 (Given - Provider: Mulu Rome, ORALIA) 1044 (Given - Provider: Monica Mckee LPN) ferrous sulfate EC (FeroSul) tablet 325 mg 325 mg, Oral, DAILY WITH BREAKFAST, First dose on 09/08/22 at 0800, Until Discontinued, DO NOT CRUSH OR OPEN. Take with food or water. , Routine 0812 (Given - Provider: Ann Frank RN) 1044 (Given - Provider: Monica Mckee LPN) heparin (porcine) (5,000 units/1 mL) subcutaneous injection 5,000 Units 5,000 Units, Subcutaneous, EVERY 12 HOURS SCHEDULED (2 times per day), First dose on 09/07/22 at 0015, Until Discontinued, Routine 0014 (Given - Provider: Km Hilliard RN)0840 (Given - Provider: Karlee Bolden RN)2042 (Given - Provider: Maria Elena Noriega RN) 08 (Given - Provider: Ann Frank RN)2019 (Given - Provider: Mulu Rome, ORALIA) 1044 (Given - Provider: Monica Mckee LPN) lamoTRIgine (LaMICtal) tablet 200 mg 200 mg, Oral, NIGHTLY, First dose on 09/07/22 at 0015, Until Discontinued, Routine 13 (Given - Provider: Km Hilliard RN)2041 (Given - Provider: Maria Elena Noriega RN) 2018 (Given - Provider: Mulu Rome, ORALIA) lamoTRIgine (LaMICtal) tablet 50 mg 50 mg, Oral, EVERY MORNING, First dose on 09/07/22 at 0700, Until Discontinued, Routine 0639 (Given - Provider: Km Hilliard RN) 0811 (Given - Provider: Ann Frank RN) 0619 (Given - Provider: Mulu Rome, ORALIA) levothyroxine (Synthroid) tablet 75 mcg 75 mcg, Oral, EVERY MORNING, First dose on 09/07/22 at 0700, Until Discontinued, Routine 0639 (Given - Provider: Km Hilliard RN) 0812 (Given - Provider: Ann Frank RN) 0619 (Given - Provider: Mulu Rome, ORALIA) magnesium sulfate 2 g in sterile water 50 mL infusion (COMPLETED) 2 g, Intravenous, ONCE, 1 dose, On 09/07/22 at 0730, Administer over 120 Minutes 0700 (New Bag - Provider: Km Hilliard RN)0900 (Stopped - Provider: Karlee Bolden RN) sodium chloride 0.9 % (flush) (BD PosiFlush Normal Saline 0.9) flush 5 mL 5 mL, Intravenous, 2 TIMES DAILY, First dose on 09/07/22 at 0015, Until Discontinued, Routine 0014 (Given - Provider: Km Hilliard RN)0907 (Given - Provider: Iggy Arcos, ORALIA)2044 (Given - Provider: Maria Elena Noriega, RN) 0900 (Not Given - Provider: Ann Frank RN - Reason: See comment - Comment: IV accidentally dislodged this morning)2019 (Given - Provider: Mulu Rome, ORALIA) 1050 (Given - Provider: Monica Mckee LPN) Continuous Medication Order 09/07/2022 09/08/2022 09/09/2022 lactated ringers infusion (CANCELED) 150 mL/hr, Intravenous, CONTINUOUS, Starting on 09/07/22 at 0730, Until 09/07/22 at 0756 0652 (New Bag - Provider: Km Hilliard RN) lactated ringers infusion (CANCELED) 150 mL/hr, Intravenous, CONTINUOUS, Starting on 09/07/22 at 0845, Until 09/08/22 at 1244 0845 (Continued Bag - Provider: Simona House RN)1401 (New Bag - Provider: Iggy Arcos, ORALIA)2048 (New Bag - Provider: Maria Elena Noriega, ORALIA) 0354 (Rate/Dose Verify - Provider: Maria Elena Noriega RN) sodium chloride 0.9% infusion (CANCELED) 150 mL/hr, Intravenous, CONTINUOUS, Starting on 09/06/22 at 2030, Until 09/07/22 at 0630 0414 (New Bag - Provider: Km Hilliard RN)0630 (Stopped - Provider: Km Hilliard RN) PRN Medication Order 09/07/2022 09/08/2022 09/09/2022 acetaminophen (Tylenol) tablet 650 mg 650 mg, Oral, EVERY 6 HOURS PRN, Starting on 09/06/22 at 2324, Until 09/09/22 at 1421, Pain, Fever, Administer for temperature greater than or equal to 38.2 degrees celsius. Maximum daily dose of acetaminophen from all sources not to exceed 4,000 mg. When ordered for pain, acetaminophen should be given even when other ordered pain medications are indicated., Routine clonazePAM (KlonoPIN) tablet 0.5 mg 0.5 mg, Oral, DAILY PRN, Starting on 09/06/22 at 2324, Until 09/09/22 at 1421, Anxiety, DO NOT SPLIT, CRUSH OR OPEN Regular tablets should be swallowed whole with water. Disintegrating tablets (ODTs) should be placed in mouth; may be swallowed with or without water. May also be dissolved in small volume (~30 mL) of water if going to be administered via feeding tube., Routine prochlorperazine (Compazine) (5 mg/mL) injection 10 mg(Linked Group 1) 10 mg, Intravenous, EVERY 6 HOURS PRN, Starting on 09/06/22 at 2324, Until 09/09/22 at 1421, Nausea, Nausea/Vomiting, If multiple antiemetics are ordered, use ondansetron first. If ondansetron ineffective use prochlorperazine. Only give IV if unable to take PO, Routine prochlorperazine (Compazine) tablet 10 mg(Linked Group 1) 10 mg, Oral, EVERY 6 HOURS PRN, Starting on 09/06/22 at 2324, Until 09/09/22 at 1421, Nausea, Nausea/Vomiting, If multiple antiemetics are ordered, use ondansetron first. If ondansetron ineffective use prochlorperazine. PO Preferred. If patient unable to take PO, may give IV if ordered., Routine Linked Groups Order Group 1: prochlorperazine (Compazine) tablet 10 mgJump to med 10 mg, Oral, EVERY 6 HOURS PRN, Starting on 09/06/22 at 2324, Until 09/09/22 at 1421, Nausea, Nausea/Vomiting, If multiple antiemetics are ordered, use ondansetron first. If ondansetron ineffective use prochlorperazine. PO Preferred. If patient unable to take PO, may give IV if ordered., Routine Or prochlorperazine (Compazine) (5 mg/mL) injection 10 mgJump to med 10 mg, Intravenous, EVERY 6 HOURS PRN, Starting on 09/06/22 at 2324, Until 09/09/22 at 1421, Nausea, Nausea/Vomiting, If multiple antiemetics are ordered, use ondansetron first. If ondansetron ineffective use prochlorperazine. Only give IV if unable to take PO, Routine documented in this encounter Care Teams Biology Laboratory Assistant Relationship Specialty Start Date End Date Haylie [place] [address] [place] [address] PCP - General General Internal Medicine 08/04/22 documented as of this encounter
--- OUTSIDE RECORDS SUMMARY | 2024-04-22 00:26 | XMS_ITS | Encounter Summary ---
Author Organization [facility] [place] [address] Care Team Providers Care Relay Worker Name Role Phone Haylie Steward MD Primary Care Provider Encounter Details Date Type Department Care Team (Latest Contact Info) Description 08/04/2022 Travel Social History Tobacco Use Types Packs/Day Years Used Date Smoking Tobacco: Never Smokeless Tobacco: Never Sex and Gender Information Value Date Recorded Sex Assigned at Female 02/25/2023 12:01 PM EDT Gender Identity Female 02/25/2023 12:01 PM EDT Sexual Orientation Straight 02/25/2023 12 :01 PM EDT documented as of this encounter Plan of Treatment Upcoming Encounters Date Type Department Care Team (Latest Contact Info) Description 04/22/2024 9:45 AM EST Scheduled View Only Radiation Oncology at [address] [phone] 04/25/2024 8:30 AM EST Scheduled View Only Radiation Oncology at [address] [phone] 04/26/2024 3:00 PM EST Scheduled View Only Radiation Oncology at [address] [phone] 04/26/2024 3:30 PM EST Office Visit Radiation Oncology at [address] [phone] [facility] [place] [address] 04/28/2024 2:45 PM EST Scheduled View Only Radiation Oncology at [address] [phone] 04/29/2024 3:00 PM EST Scheduled View Only Radiation Oncology at [address] [phone] 05/02/2024 3:45 PM EST Scheduled View Only Radiation Oncology at [address] [phone] 05/03/2024 1:45 PM EST Scheduled View Only Radiation Oncology at [address] [phone] 05/03/2024 2:15 PM EST Office Visit Radiation Oncology at [address] [phone] [facility] [place] [address] 05/05/2024 8:15 AM EST Scheduled View Only Radiation Oncology at [address] [phone] 05/06/2024 12:30 PM EST Scheduled View Only Radiation Oncology at [address] [phone] 05/09/2024 3:00 PM EST Scheduled View Only Radiation Oncology at [address] [phone] 05/10/2024 2:30 PM EST Scheduled View Only Radiation Oncology at [address] [phone] 05/10/2024 3:15 PM EST Office Visit Radiation Oncology at [address] [phone] [facility] [place] [address] 05/11/2024 2:45 PM EST Scheduled View Only Radiation Oncology at [address] [phone] 06/03/2024 3:30 PM EST Appointment Ultrasound at [place] [phone] Mira Hutchison [employer] [facility] [address] 06/23/2024 4:00 PM EST Appointment Mammography/DXA at [address] [facility] [place] [address] 07/12/2024 8:00 AM EDT Laboratory Appointment Lab [address] [place], [place] [phone] 07/12/2024 9:30 AM EDT Office Visit Nephrology Hypertension at [address] Sharmin Jean-Baptiste [facility] [place] [address] 07/13/2024 10:30 AM EDT Laboratory Appointment Lab at [facility] Hematology Oncology [address] [place], [place] [phone] 07/13/2024 11:30 AM EDT Office Visit Hematology [place] [phone] Salena Alvares [facility] [place] [address] 07/13/2024 12:45 PM EDT Appointment Hematology and Oncology at [place] [phone] documented as of this encounter Visit Diagnoses Not on filedocumented in this encounter Care Teams Relay Worker Relationship Specialty Start Date End [place] [address] PCP - General General Internal Medicine 08/04/22 documented as of this encounter
--- OUTSIDE RECORDS SUMMARY | 2024-04-22 00:26 | XMS_ITS | Encounter Summary ---
[place] [address] Care Team Providers Care Motion Picture Commentator Name Role Phone Haylie Steward MD Primary Care Provider + [phone] Reason for Referral * Consultation (Routine) - Closed Specialty Diagnoses / Procedures Referred By Contac t Referred To Contact Urology Diagnoses Urinary incontinence, unspecified type Haylie Steward MD [place] [address] [facility] [place] [address] Referral ID Status Reason Start Date Expiration Date V isits Requested Visits Authorized [id number] Closed Consult, Test & Treat PCP Updated and/or Approved 09/02/2022 09/02/2023 6 6 Encounter Details Date Type Department Care Team (Late st Contact Info) Description 09/02/2022 Transcribe Orders eDH Incoming Referrals [phone] Haylie Steward MD [place] [address] Urinary incontinence, unspecified type Social History Tobacco Use Types [...] EST Scheduled View Only Radiation Oncology at [address] [address] 04/25/2024 8:30 AM EST Scheduled View Only Radiation Oncology at [address] [address] 04/26/2024 3:00 PM EST Scheduled View Only Radiation Oncology at [address] [address] 04/26/2024 3:30 PM EST Office Visit Radiation Oncology at [address] [address] Ofe Fonseca MD [facility] [place] [address] 04/28/2024 2:45 PM EST Scheduled View Only Radiation Oncology at [address] [address] 04/29/2024 3:00 PM EST Scheduled View Only Radiation Oncology at [address] [address] 05/02/2024 3:45 PM EST Scheduled View Only Radiation Oncology at [address] [address] 05/03/2024 1:45 PM EST Scheduled View Only Radiation Oncology at [address] [address] 05/03/2024 2:15 PM EST Office Visit Radiation Oncology at [address] [address] Ofe Fonseca MD [facility] [place] [address] 05/05/2024 8:15 AM EST Scheduled View Only Radiation Oncology at [address] [address] 05/06/2024 12:30 PM EST Scheduled View Only Radiation Oncology at [address] [address] 05/09/2024 3:00 PM EST Scheduled View Only Radiation Oncology at [address] [address] 05/10/2024 2:30 PM EST Scheduled View Only Radiation Oncology at [address] [address] 05/10/2024 3:15 PM EST Office Visit Radiation Oncology at [address] [address] Ofe Fonseca MD [facility] [place] [address] 05/11/2024 2:45 PM EST Scheduled View Only Radiation Oncology at [address] [address] 06/03/2024 3:30 PM EST Appointment Ultrasound at [place] [phone] Mira Hutchison APRN [facility] [place] [address] 06/23/2024 4:00 PM EST Appointment Mammography/[place] [phone] Miryam Feliciano MD [facility] [place] [address] 07/12/2024 8:00 AM EDT Laboratory Appointment Lab [place] [phone] 07/12/2024 9:30 AM EDT Office Visit [place] [address] Sharmin Jean-Baptiste, [facility] [place] [address] 07/13/2024 10:30 AM EDT Laboratory Appointment Lab at [facility] [place] Hematology Oncology [address] [place] [phone] 07/13/2024 11:30 AM EDT Office Visit Hematology [place] [address] Salena Alvares, [facility] [place] [address] 07/13/2024 12:45 PM EDT Appointment Hematology [place] [address] Scheduled Referrals Name Type Priority Associated Diagnoses Orde r Schedule Referral to Urology Outpatient Referral Routine Urinary incontinence, unspecified type Ordered: 09/02/2022 documented as of this encounter Visit Diagnoses Diagnosis Urinary incontinence, unspecified type documented in this encounter Care Teams Motion Picture Commentator Relationship Specialty Start Date End Date [place] [address] PCP - General General Internal Medicine 08/04/22 documented as of this encounter
--- OUTSIDE RECORDS SUMMARY | 2024-04-22 00:26 | XMS_ITS | Encounter Summary ---
Author Organization [facility] [place] [address] Care Team Providers Care Gold Prospector Name Role Phone Unavailable Primary Care Provider Unavailabl e Encounter Details Date Type Department Care Team (Late st Contact Info) Description 12/26/2020 10:10 AM EDT Laboratory Appointment Lab [place] [phone] Social History Tobacco Use Types Packs/Day Years Used Date Smoking Tobacco: Never Assessed Sex and Gender Information Value Date Recorded Sex Assigned at Female 02/25/2023 12:01 PM EDT Gender Identity Female 02/25/2023 12:01 PM EDT Sexual Orientation Straight 02/25/2023 12 :01 PM EDT documented as of this encounter Plan of Treatment Upcoming Encounters Date Type Department Care Team (Latest Contact Info) Description 04/22/2024 9:45 AM EST Scheduled View Only Radiation Oncology at [address] [address] 04/25/2024 8:30 AM EST Scheduled View Only Radiation Oncology at [address] [address] 04/26/2024 3:00 PM EST Scheduled View Only Radiation Oncology at [address] [address] 04/26/2024 3:30 PM EST Office Visit Radiation Oncology at [address] [address] Ofe Fonseca MD [facility] [place] [address] 04/28/2024 2:45 PM EST Scheduled View Only Radiation Oncology at [address] [address] 04/29/2024 3:00 PM EST Scheduled View Only Radiation Oncology at [address] [address] 05/02/2024 3:45 PM EST Scheduled View Only Radiation Oncology at [address] [address] 05/03/2024 1:45 PM EST Scheduled View Only Radiation Oncology at [address] [address] 05/03/2024 2:15 PM EST Office Visit Radiation Oncology at [address] [address] Ofe Fonseca MD [facility] DR [place] [address] 05/05/2024 8:15 AM EST Scheduled View Only Radiation Oncology at [address] [address] 05/06/2024 12:30 PM EST Scheduled View Only Radiation Oncology at [address] [address] 05/09/2024 3:00 PM EST Scheduled View Only Radiation Oncology at [address] [address] 05/10/2024 2:30 PM EST Scheduled View Only Radiation Oncology at [address] [address] 05/10/2024 3:15 PM EST Office Visit Radiation Oncology at [address] [address] Ofe Fonseca MD [facility] [place] [address] 05/11/2024 2:45 PM EST Scheduled View Only Radiation Oncology at [address] [address] 06/03/2024 3:30 PM EST Appointment Ultrasound at [place] [phone] Mira Hutchison BACK SHOE OPERATOR [facility] [place] [address] 06/23/2024 4:00 PM EST Appointment Mammography/DXA at [place] [phone] Miryam Feliciano MD [facility] [place] [address] 07/12/2024 8:00 AM EDT Laboratory Appointment Lab [address] [place], [place] [phone] 07/12/2024 9:30 AM EDT Office Visit Nephrology Hypertension at [place] [phone] Sharmin Jean-Baptiste [facility] [place] [address] 07/13/2024 10:30 AM EDT Laboratory Appointment Lab at [facility] Hematology Oncology [address] [place], [place] [phone] 07/13/2024 11:30 AM EDT Office Visit Hematology [place] [phone] Salena Alvares [facility] [place] [address] 07/13/2024 12:45 PM EDT Appointment Hematology [place] [phone] documented as of this encounter Procedures Procedure Name Priority Date/Time Associated Diagnosis Comments LITHIUM LEVEL Routine 12/26/2020 10:46 AM EDT COMPREHENSIVE METABOLIC PANEL Routine 12/26/2020 10:46 AM EDT documented in this encounter Results * (ABNORMAL) Comprehensive metabolic panel (non-fasting) (12/26/2020 10:46 AM EDT) Glucose 85 65 - 199 mg/dL [facility] Comment:Diabetes: >=200 mg/d L plus symptoms Blood Urea Nitrogen 30(H) 8 - 18 mg/dL [facility] Creatinine 1.37(H) 0.70 - 1.20 mg/dL [facility] Sodium 142 135 - 145 mmol/L [facility] Potassium 4.2 3.5 - 5.0 mmol/L [facility] Comment: Please note: ??Patients with WBC >100,000 may have falsely elevated Potassium levels. ??For accurate Potassium quantification in these patients send serum separator tube (gold top) for subsequent determinations. ??Contact the Clinical Chemistry Laboratory if there are any questions. Chloride 111(H) 98 - 107 mmol/L [facility] Carbon Dioxide 21(L) 22 - 31 mmol/L [facility] Anion Gap 10 5 - 15 mmol/L [facility] Calcium 10.3 8.5 - 10.5 mg/dL [facility] Protein, Total 7.4 6.1 - 8.0 gm/dL [facility] Albumin 4.6 3.2 - 5.2 gm/dL [facility] Aspartate Aminotransferase 17 0 - 30 unit/L [facility] Alanine Aminotransferase 19 0 - 30 unit/L [facility] Alkaline Phosphatase 99 35 - 105 unit/L [facility] Bilirubin, Total 0.2 0.2 - 1.3 mg/dL [facility] Comment:rechecked-ds Est Glomerular Filtration Rate 46(L) >=60 mL/min/1. 73 m?? [facility] Comment: This patient? s estimated glomerular filtration rate (eGFR) is between 46 mL/min/1.73 m2 (patients with less muscle mass) and 53 mL/min/1.73 m2 (patients with more muscle mass) as determined by the CKD-EPI equation. Assessment of eGFR is not appropriate when creatinine concentrations are rapidly changing. For clinical decisions where creatinine clearance will affect therapy, a 24-hour urine creatinine clearance may be advised. Assignment of CKD stage 1 - 5 for patients with an eGFR near the transition point between stages may be based on clinical assessment of muscle mass and symptoms in addition to eGFR. Blood Venous Draw / Unknown 12/26/2020 10:46 AM EDT 12/26/2020 11:06 AM EDT Narrative Resulting Agency Comment Spec In Lab [facility] CHEMISTRY CHUY APONTE Performing Organization Address [facility]/ZIP Co de Phone Number [facility] [place] [address] * (ABNORMAL) Belk level (12/26/2020 10:46 AM EDT) Belk 1.26(H) <=1.20 mmol/L [facility] Comment: Therapeutic concentration range: 0.60-1.20 mmol/L Critical value: greater than 1.50 mmol/L Ref: ??Goldfrank? s Toxicologic Emergencies 6th ed 1998; p. 967 Blood Venous Draw / Unknown 12/26/2020 10:46 AM EDT 12/26/2020 11:06 AM EDT Narrative Resulting Agency Comment Spec In Lab Dr [facility] CHEMISTRY CHUY APONTE Performing Organization Address City/[facility]/ZIP Co de Phone Number [facility] [place] [address] documented in this encounter Visit Diagnoses Not on filedocumented in this encounter
--- OUTSIDE RECORDS SUMMARY | 2024-04-22 00:26 | XMS_ITS | Encounter Summary ---
Author Organization [facility] [place] [address] Care Team Providers Care Production Inspector Name Role Phone Haylie Steward MD Primary Care Provider + [phone] Reason for Visit * Auth/Cert (Routine) Specialty Diagnoses / Procedures Referred By Contac t Referred To Contact Diagnoses Exira intoxication, accidental or unintentional, initial encounter Procedures EMERGENCY IPI Joaquina Vallejo MD [facility] [place] [address] [facility] Referral ID Status Reason Start Date Expiration Date Visits Re quested Visits Authorized [id number] 1 1 Encounter Details Date Type Department Care Team (Latest Contact Info) Description 09/06/2022 8:45 AM EDT Laboratory Appointment Lab [address] [place] [phone] Bipolar 1 disorder Social History Tobacco Use [...] Scheduled View Only Radiation Oncology at [address] [address] 04/25/2024 8:30 AM EST Scheduled View Only Radiation Oncology at [address] [address] 04/26/2024 3:00 PM EST Scheduled View Only Radiation Oncology at [address] [address] 04/26/2024 3:30 PM EST Office Visit Radiation Oncology at [address] [address] Ofe Fonseca MD [facility] [place] [address] 04/28/2024 2:45 PM EST Scheduled View Only Radiation Oncology at [address] [address] 04/29/2024 3:00 PM EST Scheduled View Only Radiation Oncology at [address] [address] 05/02/2024 3:45 PM EST Scheduled View Only Radiation Oncology at [address] [address] 05/03/2024 1:45 PM EST Scheduled View Only Radiation Oncology at [address] [address] 05/03/2024 2:15 PM EST Office Visit Radiation Oncology at [address] [address] Ofe Fonseca MD [facility] [place] [address] 05/05/2024 8:15 AM EST Scheduled View Only Radiation Oncology at [address] [address] 05/06/2024 12:30 PM EST Scheduled View Only Radiation Oncology at [address] [address] 05/09/2024 3:00 PM EST Scheduled View Only Radiation Oncology at [address] [address] 05/10/2024 2:30 PM EST Scheduled View Only Radiation Oncology at [address] [address] 05/10/2024 3:15 PM EST Office Visit Radiation Oncology at [address] [address] Ofe Fonseca MD [facility] [place] [address] 05/11/2024 2:45 PM EST Scheduled View Only Radiation Oncology at [address] [address] 06/03/2024 3:30 PM EST Appointment Ultrasound at [place] [phone] Mira Hutchison APRN [facility] [place] [address] 06/23/2024 4:00 PM EST Appointment Mammography/DXA at [place] [phone] Miryam Feliciano MD [facility] [place] [address] 07/12/2024 8:00 AM EDT Laboratory Appointment Lab [address] [place] [phone] 07/12/2024 9:30 AM EDT Office Visit Neph[place] [address] Sharmin Jean-Baptiste, [facility] [place] [address] 07/13/2024 10:30 AM EDT Laboratory Appointment Lab at [facility] Hematology Oncology [address] [place] [phone] 07/13/2024 11:30 AM EDT Office Visit Hematology [place] [address] Salena Alvares [facility] [place] [address] 07/13/2024 12:45 PM EDT Appointment Hematology [place] [phone] documented as of this encounter Procedures Procedure Name Priority Date/Time Associated Diagnosis Comments TSH Routine 09/06/2022 8:52 AM EDT Bipolar 1 disorder LITHIUM LEVEL Routine 09/06/2022 8:52 AM EDT Bipolar 1 disorder documented in this encounter Results * (ABNORMAL) Exira level (09/06/2022 8:52 AM EDT) Exira 2.16(Criti robbie) 0.60 - 1.20 mmol/L [facility] Comment:Called by: OREN, Read back by: Wilmar Grande, Date/Time:09/06/22 12:59. Blood 09/06/2022 8:52 AM EDT 09/06/2022 9:01 AM EDT Narrative Resulting Agency Comment Spec In Lab Michelet Monge MD CHEMISTRY ORDERABLES [facility] [place] [address] * TSH (09/06/2022 8:52 AM EDT) Thyroid Stimulating Hormone 0.61 0.27 - 4.20 mcIU/mL [facility] Comment: Reference Interval (mcIU/mL): Females: ??First Trimester: 0.23-3.88 ??Second Trimester: 0.22-3.90 ??Third Trimester: 0.44-4.66 Blood 09/06/2022 8:52 AM EDT 09/06/2022 9:01 AM EDT Narrative Resulting Agency Comment Spec In Lab Michelet Monge MD CHEMISTRY ORDERABLES [facility] [place] [place] [address] documented in this encounter Visit Diagnoses Diagnosis Bipolar 1 disorder Bipolar I disorder, most recent episode (or current) unspecified documented in this encounter Care Teams Production Inspector Relationship Specialty Start Date [place] [address] PCP - General General Internal Medicine 08/04/22 documented as of this encounter
--- OUTSIDE RECORDS SUMMARY | 2024-04-22 00:26 | XMS_ITS | Encounter Summary ---
Author Organization [facility] [place] [address] Care Team Providers Care Tire Service Supervisor Name Role Phone Haylie Steward MD Primary Care Provider [phone] Encounter Details Date Type Department Care Team (Latest Contact Info) Description 09/16/2022 Travel Social History Tobacco Use Types Packs/Day [...] Scheduled View Only Radiation Oncology at [address] [address] 04/25/2024 8:30 AM EST Scheduled View Only Radiation Oncology at [address] [address] 04/26/2024 3:00 PM EST Scheduled View Only Radiation Oncology at [address] [address] 04/26/2024 3:30 PM EST Office Visit Radiation Oncology at [address] [address] Ofe Fonseca MD [facility] [place] [address] 04/28/2024 2:45 PM EST Scheduled View Only Radiation Oncology at [address] [address] 04/29/2024 3:00 PM EST Scheduled View Only Radiation Oncology at [address] [phone] 05/02/2024 3:45 PM EST Scheduled View Only Radiation Oncology at [address] [address] 05/03/2024 1:45 PM EST Scheduled View Only Radiation Oncology at [address] [address] 05/03/2024 2:15 PM EST Office Visit Radiation Oncology at [address] [address] Ofe Fonseca MD [facility] [place] [address] 05/05/2024 8:15 AM EST Scheduled View Only Radiation Oncology at [address] [address] 05/06/2024 12:30 PM EST Scheduled View Only Radiation Oncology at [address] [address] 05/09/2024 3:00 PM EST Scheduled View Only Radiation Oncology at [address] [address] 05/10/2024 2:30 PM EST Scheduled View Only Radiation Oncology at [address] [address] 05/10/2024 3:15 PM EST Office Visit Radiation Oncology at [address] [phone] Ofe Fonseca MD [facility] [place] [address] 05/11/2024 2:45 PM EST Scheduled View Only Radiation Oncology at [address] [phone] 06/03/2024 3:30 PM EST [place] [phone] Mira Hutchison, [facility] [place] [address] 06/23/2024 4:00 PM EST Appointment Mammography/[place] [phone] Miryma Feliciano MD [facility] [place] [address] 07/12/2024 8:00 AM EDT Laboratory Appointment Lab [address] [place] [phone] 07/12/2024 9:30 AM EDT Office Visit [place] [phone] Sharmin Jean-Baptiste [facility] [place] [address] 07/13/2024 10:30 AM EDT Laboratory Appointment Lab at [facility] Hematology Oncology [address] [place] [phone] 07/13/2024 11:30 AM EDT Office Visit H[place]ology [place] [address] Salena Alvares APRN [facility] [place] [address] 07/13/2024 12:45 PM EDT Appointment Hematology [place] [phone] documented as of this encounter Visit Diagnoses Not on filedocumented in this encounter Care Teams Tire Service Supervisor Relationship Specialty Start Date [place] [address] PCP - General General Internal Medicine 08/04/22 documented as of this encounter
--- OUTSIDE RECORDS SUMMARY | 2024-04-22 00:26 | XMS_ITS | Encounter Summary ---
Author Organization [facility] [place] [address] Care Team Providers Care Ecology Teacher Name Role Phone Haylie Steward MD Primary Care Provider [phone] Encounter Details Date Type Department Care Team (Latest Contact Info) Description 09/06/2022 Travel Social History Tobacco Use Types Packs/Day [...] Scheduled View Only Radiation Oncology at [address] [address] 04/25/2024 8:30 AM EST Scheduled View Only Radiation Oncology at [address] [address] 04/26/2024 3:00 PM EST Scheduled View Only Radiation Oncology at [address] [address] 04/26/2024 3:30 PM EST Office Visit Radiation Oncology at [address] [address] Ofe Fonseca MD [facility] [place] [address] 04/28/2024 2:45 PM EST Scheduled View Only Radiation Oncology at [address] [address] 04/29/2024 3:00 PM EST Scheduled View Only Radiation Oncology at [address] [address] 05/02/2024 3:45 PM EST Scheduled View Only Radiation Oncology at [address] [address] 05/03/2024 1:45 PM EST Scheduled View Only Radiation Oncology at [address] [address] 05/03/2024 2:15 PM EST Office Visit Radiation Oncology at [address] [address] Ofe Fonseca MD [facility] [place] [address] 05/05/2024 8:15 AM EST Scheduled View Only Radiation Oncology at [address] [address] 05/06/2024 12:30 PM EST Scheduled View Only Radiation Oncology at [address] [address] 05/09/2024 3:00 PM EST Scheduled View Only Radiation Oncology at [address] [address] 05/10/2024 2:30 PM EST Scheduled View Only Radiation Oncology at [address] [address] 05/10/2024 3:15 PM EST Office Visit Radiation Oncology at [address] [phone] Ofe Fonseca MD [facility] [place] [address] 05/11/2024 2:45 PM EST Scheduled View Only Radiation Oncology at [address] [phone] 06/03/2024 3:30 PM EST Appointment [place] [phone] Mira Hutchison, [facility] [place] [address] 06/23/2024 4:00 PM EST Appointment Mammography/[place] [phone] Miryam Feliciano MD [facility] [place] [address] 07/12/2024 8:00 AM EDT Laboratory Appointment Lab [address] [place] [phone] 07/12/2024 9:30 AM EDT Office Visit Nephrology [place] [phone] Sharmin Jean-Baptiste [facility] [place] [address] 07/13/2024 10:30 AM EDT Laboratory Appointment Lab at [facility] [place]ology Oncology [address] [place] [phone] 07/13/2024 11:30 AM EDT Office Visit Hematology [place] [address] Salena Alvares APRN [facility] [place] [address] 07/13/2024 12:45 PM EDT Appointment Hematology [place] [phone] documented as of this encounter Visit Diagnoses Not on filedocumented in this encounter Care Teams Ecology Teacher Relationship Specialty Start Date [place] [address] PCP - General General Internal Medicine 08/04/22 documented as of this encounter
--- OUTSIDE RECORDS SUMMARY | 2024-04-22 00:26 | XMS_ITS | Encounter Summary ---
[place] [address] Care Team Providers Care Nut Chopper Name Role Phone Haylie Steward MD Primary Care Provider + [phone] Reason for Visit * Consultation (Routine) - Closed Specialty Diagnoses / Procedures Referred By Contac t Referred To Contact Urology Diagnoses Urinary incontinence, unspecified type [place] [address] [place] [address] [facility] [place] [address] Referral ID Status Reason Start Date Expiration Date V isits Requested Visits Authorized [id number] Closed Consult, Test & Treat PCP Updated and/or Approved 09/02/2022 09/02/2023 6 6 Encounter Details Date Type Department Care Team (Late st Contact Info) Description 09/16/2022 2:40 PM EDT [place] [address] [facility] [place] [address] Urinary retention; Overflow incontinence Social History Tobacco Use Types Packs/Day Years [...] Sign Reading Time Taken Comments Blood Pressure 155/76 09/16/2022 2:40 PM EDT Pulse 81 09/16/2022 2:40 PM EDT Temperature - - Respiratory Rate - - Oxygen Saturation 99% 09/16/2022 2:40 PM EDT Inhaled Oxygen Concentration - - Weight - - Height - - Body Mass Index - - documented in this encounter Progress Notes * Mira Hutchison, JULIUS - 09/16/2022 2:40 PM EDT Urinary Incontinence New Patient Workup - Female Nataliya Morfin 1975 [id number] Reason for Visit: This is a female 47 y.o. seen at the request of Haylie Steward MD with incontinence times 2.5 weeks. She is wearing a pad and is leaking without warning. No dysuria or hematuria. She never feels that she empties well and does not feel the urge to push. Sometimes however. She will double void within 10-15 mins. Symptoms were at their worst August 16-. They have been recently a bit better. She presented to the ED 10 days ago with elevated Oval levels and was switched to Depakote at that time. She is followed by Nephrology for elevated creatinine. Notes from Haylie Steward MD on file have been received and reviewed. Nocturia: x 4. Nocturnal enuresis: No. Usual Fluid Intake: Type of Fluid Quantity Consumed Unit Coffee occasionally cups per day Tea rare cups per day Coke rare cans per day Juice rare glasses per day Water 8 glasses per day Last UTI: None recently. Bowel Problems: Normal Gyne: G 0 P 0 # 0 Patient Active Problem List Diagnosis Code ??? Stage 3b chronic kidney disease (CKD) N18.32 ??? Hyperparathyroidism E21.3 ??? Anemia D64.9 ??? Oval intoxication, accidental or unintentional, initial encounter T23.121A Past Medical History: Diagnosis Date ??? Bipolar 1 disorder ??? Chronic kidney disease (CKD) stage G3b/A1, moderately decreased glomerular filtration rate (GFR) between 30-44 mL/min/1.73 square meter and albuminuria creatinine ratio less than 30 mg/g ??? OCD (obsessive compulsive disorder) Past Surgical History: Procedure Laterality Date ??? EYE SURGERY tear ducts as a child ??? TOE SURGERY Social: No smoking No alcohol. ??? ferrous sulfate EC (FeroSul) 325 mg (65 mg iron) DR tablet ??? divalproex ER (Depakote ER) 250 mg ER 24 hr tablet ??? Alosetron (Lotronex) 0.5 mg tablet ??? buPROPion XL (Wellbutrin XL) 150 mg XL 24 hr tablet ??? clonazePAM (KlonoPIN) 0.5 mg tablet ??? lamoTRIgine (LaMICtal) 200 mg tablet ??? lamoTRIgine (LaMICtal) 100 mg tablet ??? levothyroxine (Synthroid) 75 mcg tablet Review of Systems: General Health: Good MUSICIAN INSTRUMENTAL - frequent headaches. RS - No cough [...] Kegel effectively. Pelvic floor tenderness bilaterally. PVR: 550 cc measured in the supine position with the bladder scanner shortly after the patient had voided. After second void, PVR 98cc. U/A: negative for RBC, WBC and Nitrates. Impression: 47 year old with elevated PVR. Urinary incontinence likely was overflow incontinence. Likely a pelvic floor dysfunction component, but could also be related to recent lithium toxicity. She feels thatsymptoms are improved greatly since her recent admission. Plan: ?? Behavioral modifications including timed and double voiding, moderation of bladder irritants moderation of bowels. . ?? Discussed Pelvic floor dysfunction and high tone pelvic floor. Discussed relaxation techniques including yoga, meditation, stretching. Discussed Pelvic floor PT. She would like to defer PT for now. ?? Instructed to call if she is having difficulty urinating or if incontinence is getting worse Dustin will recheck a PVR then. ?? Discussed meds for OAB, will defer given the elevated PVR ?? CHANDANA is scheduled in 2 weeks. Will look for results to check updated PVR. ?? Follow up with me in 2 months will coordinate with other appointments. documented in this encounter Plan of Treatment Upcoming Encounters Date Type Department Care Team (Latest Contact Info) Description 04/22/2024 9:45 AM EST Scheduled View Only Radiation Oncology at [address] [phone] 04/25/2024 8:30 AM EST Scheduled View Only Radiation Oncology at [address] [phone] 04/26/2024 3:00 PM EST Scheduled View Only Radiation Oncology at [address] [address] 04/26/2024 3:30 PM EST Office Visit Radiation Oncology at [address] [phone] [facility] [place] [address] 04/28/2024 2:45 PM EST Scheduled View Only Radiation Oncology at [address] [address] 04/29/2024 3:00 PM EST Scheduled View Only Radiation Oncology at [address] [address] 05/02/2024 3:45 PM EST Scheduled View Only Radiation Oncology at [address] [address] 05/03/2024 1:45 PM EST Scheduled View Only Radiation Oncology at [address] [address] 05/03/2024 2:15 PM EST Office Visit Radiation Oncology at [address] [address] [facility] [place] [address] 05/05/2024 8:15 AM EST Scheduled View Only Radiation Oncology at [address] [phone] 05/06/2024 12:30 PM EST Scheduled View Only Radiation Oncology at [address] [address] 05/09/2024 3:00 PM EST Scheduled View Only Radiation Oncology at [address] [address] 05/10/2024 2:30 PM EST Scheduled View Only Radiation Oncology at [address] [address] 05/10/2024 3:15 PM EST Office Visit Radiation Oncology at [address] [address] [facility] [place] [address] 05/11/2024 2:45 PM EST Scheduled View Only Radiation Oncology at [address] [address] 06/03/2024 3:30 PM EST Appointment Ultrasound at [place] [address] [facility] [place] [address] 06/23/2024 4:00 PM EST Appointment Mammography/[place] [phone] [facility] [place] [address] 07/12/2024 8:00 AM EDT Laboratory Appointment Lab [address] [place] [address] 07/12/2024 9:30 AM EDT Office Visit Nephrology Hypertension at [place] [address] [facility] [place] [address] 07/13/2024 10:30 AM EDT Laboratory Appointment Lab at [facility] Hematology Oncology [address] [place], [place] [phone] 07/13/2024 11:30 AM EDT Office Visit Hematology and Oncology at [place] [phone] [facility] [place] [address] 07/13/2024 12:45 PM EDT Appointment Hematology [place] [address] Scheduled Referrals Name Type Priority Associated Diagnoses Orde r Schedule Referral to Urology Outpatient Referral Routine Urinary incontinence, unspecified type Ordered: 09/02/2022 documented as of this encounter Visit Diagnoses Diagnosis Urinary retention Retention of urine, unspecified Overflow incontinence documented in this encounter Care Teams Nut Chopper Relationship Specialty Start Date End [place] [address] PCP - General General Internal Medicine 08/04/22 documented as of this encounter
--- OUTSIDE RECORDS SUMMARY | 2024-04-22 00:26 | XMS_ITS | Encounter Summary ---
Author Organization [facility] [place] [address] Care Team Providers Care Sheet Taker Name Role Phone Haylie Steward MD Primary Care Provider + [phone] Encounter Details Date Type Department Care Team (Late st Contact Info) Description 09/08/2022 Telephone Psychiatry [place] [phone] Shannan Marie, RN PSYCHIATRY Social History Tobacco Use Types Packs/Day Years [...] encounter Miscellaneous Notes * Telephone Encounter - Shannan Marie RN - 09/08/2022 12:51 PM EDT Patient left a voice message on the RN phone line stating that Dr. Grande had tried to reach out to her about her lab results. I am routing this message to Dr. Grande documented in this encounter Plan of Treatment Upcoming Encounters Date Type Department Care Team (Latest Contact Info) Description 04/22/2024 9:45 AM EST Scheduled View Only Radiation Oncology at [address] [address] 04/25/2024 8:30 AM EST Scheduled View Only Radiation Oncology at [address] [phone] 04/26/2024 3:00 PM EST Scheduled View Only Radiation Oncology at [address] [address] 04/26/2024 3:30 PM EST Office Visit Radiation Oncology at [address] [address] Ofe Fonseca MD [facility] DR [facility] [address] 04/28/2024 2:45 PM EST Scheduled View Only Radiation Oncology at [address] [address] 04/29/2024 3:00 PM EST Scheduled View Only Radiation Oncology at [address] [address] 05/02/2024 3:45 PM EST Scheduled View Only Radiation Oncology at [address] [address] 05/03/2024 1:45 PM EST Scheduled View Only Radiation Oncology at [address] [address] 05/03/2024 2:15 PM EST Office Visit Radiation Oncology at [address] [address] Ofe Fonseca MD [facility] [place] [address] 05/05/2024 8:15 AM EST Scheduled View Only Radiation Oncology at [address] [address] 05/06/2024 12:30 PM EST Scheduled View Only Radiation Oncology at [address] [address] 05/09/2024 3:00 PM EST Scheduled View Only Radiation Oncology at [address] [address] 05/10/2024 2:30 PM EST Scheduled View Only Radiation Oncology at [address] [address] 05/10/2024 3:15 PM EST Office Visit Radiation Oncology at [address] [address] Ofe Fonseca MD [facility] [place] [address] 05/11/2024 2:45 PM EST Scheduled View Only Radiation Oncology at [address] [address] 06/03/2024 3:30 PM EST Appointment Ultrasound at [place] [phone] Mira Hutchison APRN [facility] [place] [address] 06/23/2024 4:00 PM EST Appointment Mammography/DXA at [place] [phone] Miryam Feliciano MD [facility] [place] [address] 07/12/2024 8:00 AM EDT Laboratory Appointment Lab [address] [place], [place] [phone] 07/12/2024 9:30 AM EDT Office Visit Nephrology [place] [address] Sharmin Jean-Baptiste, [facility] [place] [address] 07/13/2024 10:30 AM EDT Laboratory Appointment Lab at [facility] Hematology Oncology [address] [place] [phone] 07/13/2024 11:30 AM EDT Office Visit Hematology [place] [address] Salena Alvares, [facility] [place] [address] 07/13/2024 12:45 PM EDT Appointment Hematology [place] [address] documented as of this encounter Visit Diagnoses Not on filedocumented in this encounter Care Teams Sheet Taker Relationship Specialty Start Date End [place] [address] PCP - General General Internal Medicine 08/04/22 documented as of this encounter
--- OUTSIDE RECORDS SUMMARY | 2024-04-22 00:26 | XMS_ITS | Encounter Summary ---
Author Organization [facility] [place] [address] Care Team Providers Care Director Pediatric Name Role Phone Unavailable Primary Care Provider Unavailabl e Encounter Details Date Type Department Care Team (Latest Contact Info) Description 06/25/2022 Travel Social History Tobacco Use Types Packs/Day [...] Scheduled View Only Radiation Oncology at [address] [address] 04/25/2024 8:30 AM EST Scheduled View Only Radiation Oncology at [address] [address] 04/26/2024 3:00 PM EST Scheduled View Only Radiation Oncology at [address] [address] 04/26/2024 3:30 PM EST Office Visit Radiation Oncology at [address] [address] Ofe Fonseca MD [facility] DR [place] [address] 04/28/2024 2:45 PM EST Scheduled View Only Radiation Oncology at [address] [address] 04/29/2024 3:00 PM EST Scheduled View Only Radiation Oncology at [address] [address] 05/02/2024 3:45 PM EST Scheduled View Only Radiation Oncology at [address] [address] 05/03/2024 1:45 PM EST Scheduled View Only Radiation Oncology at [address] [address] 05/03/2024 2:15 PM EST Office Visit Radiation Oncology at [address] [address] Ofe Fonseca MD [facility] [place] [address] 05/05/2024 8:15 AM EST Scheduled View Only Radiation Oncology at [address] [address] 05/06/2024 12:30 PM EST Scheduled View Only Radiation Oncology at [address] [address] 05/09/2024 3:00 PM EST Scheduled View Only Radiation Oncology at [address] [address] 05/10/2024 2:30 PM EST Scheduled View Only Radiation Oncology at [address] [address] 05/10/2024 3:15 PM EST Office Visit Radiation Oncology at [address] [address] Ofe Fonseca MD [facility] [place] [address] 05/11/2024 2:45 PM EST Scheduled View Only Radiation Oncology at [address] [address] 06/03/2024 3:30 PM EST Appointment Ultrasound at [place] [phone] Mira Hutchison [facility] [place] [address] 06/23/2024 4:00 PM EST Appointment Mammography/DXA at [place] [phone] Miryam Feliciano MD [facility] [place] [address] 07/12/2024 8:00 AM EDT Laboratory Appointment Lab [place] [phone] 07/12/2024 9:30 AM EDT Office Visit Nephrology Hypertension at [place] [phone] Sharmin Jean-Baptiste, [facility] [place] [address] 07/13/2024 10:30 AM EDT Laboratory Appointment Lab at [facility] Hematology Oncology [address] [place] [phone] 07/13/2024 11:30 AM EDT Office Visit Hematology [place] [phone] Salena Alvares, [facility] [place] [address] 07/13/2024 12:45 PM EDT Appointment Hematology and Oncology at [place] [phone] documented as of this encounter Visit Diagnoses Not on filedocumented in this encounter
--- OUTSIDE RECORDS SUMMARY | 2024-04-22 00:26 | XMS_ITS | Encounter Summary ---
Author Organization [facility] [place] [address] Care Team Providers Care Business Services Specialist Sales Name Role Phone Unavailable Primary Care Provider Unavailabl e Encounter Details Date Type Department Care Team (Latest Contact Info) Description 06/25/2022 9:10 AM EST Laboratory Appointment Lab [address] [place] [phone] Bipolar affective disorder, remission status unspecified Social History Tobacco Use Types Packs/Day Years [...] Scheduled View Only Radiation Oncology at [address] [address] 04/25/2024 8:30 AM EST Scheduled View Only Radiation Oncology at [address] [address] 04/26/2024 3:00 PM EST Scheduled View Only Radiation Oncology at [address] [address] 04/26/2024 3:30 PM EST Office Visit Radiation Oncology at [address] [phone] Ofe Fonseca MD [facility] [place] [address] 04/28/2024 2:45 PM EST Scheduled View Only Radiation Oncology at [address] [address] 04/29/2024 3:00 PM EST Scheduled View Only Radiation Oncology at [address] [address] 05/02/2024 3:45 PM EST Scheduled View Only Radiation Oncology at [address] [address] 05/03/2024 1:45 PM EST Scheduled View Only Radiation Oncology at [address] [address] 05/03/2024 2:15 PM EST Office Visit Radiation Oncology at [address] [address] Ofe Fonseca MD [facility] [place] [address] 05/05/2024 8:15 AM EST Scheduled View Only Radiation Oncology at [address] [address] 05/06/2024 12:30 PM EST Scheduled View Only Radiation Oncology at [address] [address] 05/09/2024 3:00 PM EST Scheduled View Only Radiation Oncology at [address] [address] 05/10/2024 2:30 PM EST Scheduled View Only Radiation Oncology at [address] [address] 05/10/2024 3:15 PM EST Office Visit Radiation Oncology at [address] [address] Ofe Fonseca MD [facility] [place] [address] 05/11/2024 2:45 PM EST Scheduled View Only Radiation Oncology at [address] [address] 06/03/2024 3:30 PM EST Appointment Ultrasound at [place] [phone] Mira Hutchison VP [employer]GAN[employer]ATIONAL [employer]OP[employer] [facility] [place] [address] 06/23/2024 4:00 PM EST Appointment Mammography/DXA at [place] [phone] Miryam Feliciano MD [facility] [place] [address] 07/12/2024 8:00 AM EDT Laboratory Appointment Lab [address] [place], [place] [phone] 07/12/2024 9:30 AM EDT Office Visit Nephrology Hypertension at [place] [phone] Sharmin Jean-Baptiste [facility] [place] [address] 07/13/2024 10:30 AM EDT Laboratory Appointment Lab at [facility] Hematology Oncology [address] [place] [phone] 07/13/2024 11:30 AM EDT Office Visit H[place]ology [place] [phone] Salena Alvares VP [employer]OPMENT [facility] [place] [address] 07/13/2024 12:45 PM EDT Appointment [place]ology [place] [address] documented as of this encounter Procedures Procedure Name Priority Date/Time Associated Diagnosis Comments HC THYROID STIMULATING HORMONE, SERUM Routine 06/25/2022 9:49 AM EST Bipolar affective disorder, remission status unspecified HC LITHIUM, SERUM Routine 06/25/2022 9:4 9 AM EST Bipolar affective disorder, remission status unspecified HC VENIPUNCTURE Routine 06/25/2022 9:49 AM EST Bipolar affective disorder, remission status unspecified COMPREHENSIVE METABOLIC PANEL Routine 06/25/2022 9:49 AM EST Bipolar affective disorder, remission status unspecified documented in this encounter Results * (ABNORMAL) Broughton level (06/25/2022 9:49 AM EST) Broughton 1.21(H) 0.60 - 1.20 mmol/L [facility] Blood 06/25/2022 9:49 AM EST 06/25/2022 9:55 AM EST Narrative Resulting Agency Comment Spec In Lab Michelet Monge MD CHEMISTRY ORDERABLES Performing Organization Address [facility] Co de Phone Number [facility] [place] [address] * TSH (06/25/2022 9:49 AM EST) Thyroid Stimulating Hormone 4.10 0.27 - 4.20 mcIU/mL [facility] Comment: Reference Interval (mcIU/mL): Females: ??First Trimester: 0.23-3.88 ??Second Trimester: 0.22-3.90 ??Third Trimester: 0.44-4.66 Blood 06/25/2022 9:49 AM EST 06/25/2022 9:55 AM EST Narrative Resulting Agency Comment Spec In Lab Michelet Monge MD CHEMISTRY ORDERABLES [facility] [address] * (ABNORMAL) Comprehensive metabolic panel (non-fasting) (06/25/2022 9:49 AM EST) Glucose 94 65 - 199 mg/dL [facility] Comment:Diabetes: >=200 mg/d L plus symptoms Blood Urea Nitrogen 30(H) 8 - 18 mg/dL [facility] Creatinine 1.51(H) 0.70 - 1.20 mg/dL [facility] Sodium 143 135 - 145 mmol/L [facility] Potassium 4.4 3.5 - 5.0 mmol/L [facility] Comment: Please note: ??Patients with WBC >100,000 may have falsely elevated Potassium levels. ??For accurate Potassium quantification in these patients send serum separator tube (gold top) for subsequent determinations. ??Contact the Clinical Chemistry Laboratory if there are any questions. Chloride 112(H) 98 - 107 mmol/L [facility] Carbon Dioxide 23 22 - 31 mmol/L [facility] Anion Gap 8 5 - 15 mmol/L [facility] Calcium 10.8(H) 8.5 - 10.5 mg/dL [facility] Protein, Total 6.9 6.1 - 8.0 g/dL [facility] Albumin 4.4 3.2 - 5.2 g/dL [facility] Aspartate Aminotransferase 12 0 - 30 unit/L [facility] Alanine Aminotransferase 14 0 - 30 unit/L [facility] Alkaline Phosphatase 110(H) 35 - 105 unit/L [facility] Bilirubin, Total <0.2(L) 0.2 - 1.3 mg/dL [facility] Est Glomerular Filtration Rate 42(L) >=60 mL/min/1. 73 m?? [facility] Comment: This patient's estimated GFR was [...] and symptoms in addition to eGFR. Blood 06/25/2022 9:49 AM EST 06/25/2022 9:55 AM EST Narrative Resulting Agency Comment Spec In Lab Michelet Monge MD CHEMISTRY ORDERABLES [facility] [place] [address] * Lipid Panel (Reflex Direct LDL) (06/25/2022 9:49 AM EST) Cholesterol, Total 202 mg/dL [facility] Comment: Lower Risk: <200 mg/dL Average Risk: 200-239 mg/dL Higher Risk: >zz=095 mg/dL Triglyceride 97 mg/dL [facility] Comment: Average Risk/Lower Risk: <150 mg/dL Borderline High Risk: 150-199 mg/dL High Risk: 200-499 mg/dL Very High Risk: >yo=900 mg/dL HDL Cholesterol 83 mg/dL [facility] Comment: Males: ?? Higher Risk: <40 mg/dL Females: ?? Higher Risk: <50 mg/dL LDL Cholesterol 100 mg/dL [facility] Comment: Lowest Risk: <100 mg/dL Lower Risk: 100-129 mg/dL Borderline High Risk: 130-159 mg/dL High Risk: 160-189 mg/dL Very High Risk: >wd=625 mg/dL Cholesterol/HDL Ratio 2.4 ratio [facility] Lipid Interpretation See Note [facility] Comment: Lipid management should be guided by a patient? s ASCVD risk, goals and preferences. ACC/AHA Guidelines recommend high intensity statin if clinical ASCVD or LDL greater than or equal to 190 mg/dL. http://tinyurl.com/GTM-TDC-Xflpzpubw Adults aged 40-75 with LDL 70-189 mg/dL should have their 10 year ASCVD risk estimated with the ACC/AHA ASCVD risk estimator paperboard boxes http://tools.acc.org/YMMOT-Lqta-Jftcsrumh/ Statin should be discussed if risk greater [...] In Lab Michelet Monge MD CHEMISTRY ORDERABLES [facility] [place] [address] documented in this encounter Visit Diagnoses Diagnosis Bipolar affective disorder, remission status unspecified documented in this encounter
--- OUTSIDE RECORDS SUMMARY | 2024-04-22 00:26 | XMS_ITS | Encounter Summary ---
[place] [address] Care Team Providers Care Screw Supervisor Name Role Phone Haylie Steward MD Primary Care Provider + [phone] Reason for Referral * Consultation (Routine) - Closed Specialty Diagnoses / Procedures Referred By Contac t Referred To Contact Endocrinology Diagnoses Stage 3b chronic kidney disease Hyperparathyroidism Sharmin Jean-Baptiste APRN [facility] [place] [address] [facility] Endocrinology [address] [place] [phone] Referral ID Status Reason Start Date Expiration Date V isits Requested Visits Authorized [id number] Closed Consult, Test & Treat 08/08/2022 08/08/2023 1 1 Reason for Visit * Consultation (Routine) - Closed Specialty Diagnoses / Procedures Referred By Contac t Referred To Contact Nephrology Diagnoses Stage 3 chronic kidney disease, unspecified whether stage 3a or 3b CKD Michelet Monge MD [facility] [place] [address] [facility] Nephrology [address] [place] [phone] Referral ID Status Reason Start Date Expiration Date V isits Requested Visits Authorized [id number] Closed Consult, Test & Treat 07/14/2022 07/14/2023 1 1 Encounter Details Date Type Department Care Team (Latest Contact Info) Description 08/04/2022 1:00 PM EDT Office Visit Nephrology Hypertension at [facility] [place] [phone] Sharmin Jean-Baptiste, JULIUS [facility] [place] [address] Stage 3b chronic kidney disease; Hyperparathyroidism; Stage 3b chronic kidney disease (CKD); Anemia, unspecified type Social History Tobacco Use Types Packs/Day Years Used Date Smoking Tobacco: Never Smokeless Tobacco: Never Tobacco Cessation:Counseling Given: Not Answered Sex and Gender Information Value Date Recorded [...] - Inhaled Oxygen Concentration - - Weight 61.2 kg (135 lb) 08/04/2022 12:53 PM EDT Height 160 cm (5' 3) 08/04/2022 12:53 PM EDT Body Mass Index 23.91 08/04/2022 12:53 PM EDT documented in this encounter Progress Notes * Sharmin Jean-Baptiste, JULIUS - 08/04/2022 1:00 PM EDT Hypertension/Nephrology Consultation Nataliya Landrumblake [id number] ID: [id number] y.o. old female Cseen at the request of Dr. Michelet Monge for evaluation of CKD. Past Medical History: Patient Active Problem List Diagnosis Code ??? Stage 3b chronic kidney disease (CKD) N18.32 ??? Hyperparathyroidism E21.3 ??? Anemia D64.9 History of Present Illness: In January she moved from [place] to [place] to live with her parents and transferred her care locally. She began seeing Dr. Sivakumar Monge in behavioral health for care and management of her bipolar disorder. History of bipolar affective disorder, type I, and has been on lithium since 2004. Patients understanding of her nephrology appointment today is: My doctor was concerned about me staying on lithium. My other doctor in [place] told me my creat was high, years and years ago. HTN: reports white coat hypertension Heart or vascular disease: no Smoking: no Diabetes: no [place]: no NSAIDS: used to take ibuprofen Herbal Supplements: no Autoimmune disease: no UTI: no Stones: no No pregnancies Medications: Outpatient Encounter Medications as of 08/04/2022 Medication Sig Dispense Refill ??? Alosetron (Lotronex) 0.5 mg tablet Take [...] every morning. ??? lithium 300 mg capsule TAKE 1 CAPSULE BY MOUTH IN THE MORNING AND 3 NIGHTLY AT BEDTIM ??? famotidine (Pepcid) 20 mg tablet Take 20 mg by mouth 2 times daily. ??? clonazePAM (KlonoPIN) 0.5 mg tablet TAKE 1 TABLET BY MOUTH ONCE DAILY NEEDED FOR ANXIETY ANDFOR INSOMNIA ??? [DISCONTINUED] Lactobac. rhamnosus GG-inulin ([facility] NeurOp) 10 billion cell -200mg Capsule Take by mouth daily. ??? [DISCONTINUED] Vraylar 1.5 mg capsule TAKE 1 CAPSULE BY MOUTH ONCE DAILY AT BEDTIME FOR BIPOLARDISORDER AND DEPRESSION ??? [DISCONTINUED] omeprazole (PriLOSEC) [address] capsule Take 40 mg by mouth 2 times daily. ??? lurasidone (Latuda) 20 mg Tablet Take 1 tablet by mouth daily. (Patient not taking: Reported on08/04/2022) 30 tablet 2 No facility-administered encounter medications on file as of 08/04/2022. Allergies / ADRs: Allergies Allergen Reactions ??? Nsaids (Non-Steroidal Anti-Inflammatory Drug) All interfere with lithium All interfere with lithium Family History: Father kidney stones Social History: No alcohol. Living with parents. Not currently working. Review of Systems: System Abnormalities Constitutional No fevers, chills, or weight loss. Eye No visual changes, eye pain, or dry eye. ENT Frequent headaches, takes Tylenol on occasion, oral mucosa dryness, nose bleeds. No throat painor trouble swallowing. CV No chest pain leg swelling, snoring, or apnea. Some chest pressure with anxiety. Resp No cough, shortness of breath. No difficulty breathing lying flat. GI No nausea, vomiting, change in bowel habits or abdominal pain. No heart burn or reflux. No change in urine output. No pain urinating or blood in urine. I drink at least 8 glasses of water Skin No rash or itchy skin. No non-healing skin sores. Dry skin. Allergy Endocrine Neurologic No weakness. No numbness or tingling. Fingers turn white with cold. Musculoskeletal No joint pain/swelling. No muscle pain. No leg cramps. Lymph Psych She reports polydipsia and polyuria Y N All other systems reviewed and negative. x Physical Examination: Vitals: 08/04/22 1253 Weight: 61.2 kg (135 lb) Height: 160 cm (5' 3) General: Arrived ambulatory. Alert, comfortable. Declined to have BP checked. HEENT: Sclera white. Mucous membranes moist. No lymphadenopathy. CV: S1 and S2. HR regular. JVP not elevated. Resp: Lungs clear with no crackles or wheezes. Respirations non labored. Abd: Soft. + BS. No bruit. Non tender. : No CVA tenderness. Ext: Warm. No cyanosis. No edema. Skin: No rash. Neuro: Intact. No asterixis. Psych: Mood slightly anxious. Labs: Latest Reference Range & Units 08/04/22 13:58 WBC 4.0 - 9.5 x10(3)/mcL 9.6 (H) RBC 4.00 - 5.21 x10(6)/mcL 4.20 Hemoglobin 11.7 - 15.5 g/dL 9.9 (L) Hematocrit 35.7 - 45.8 % 33.9 (L) MCV 82.6 - 94.4 fL 80.7 (L) MCH 27.1 - 32.0 pg 23.6 (L) MCHC 31.7 - 35.0 g/dL 29.2 (L) RDWSD 37.0 - 46.0 fL 48.0 (H) RDWCV 11.5 - 14.1 % 16.4 (H) Platelets 145 - 357 x10(3)/mcL 316 MPV 7.6 - 12.9 fL 9.1 nRBC % Auto % 0.0 nRBC Abs Auto 0.000 - 0.000 x10(3)/mcL 0.000 Neutr Abs (ANC) 1.70 - 6.10 x10(3)/mcL 6.88 (H) (H): Data is abnormally high (L): Data is abnormally low Latest Reference Range & Units 08/04/22 13:58 Sodium 135 - 145 mmol/L 143 Potassium 3.5 - 5.0 mmol/L 4.2 Chloride 98 - 107 mmol/L 113 (H) CO2 22 - 31 mmol/L 20 (L) Anion Gap 5 - 15 mmol/L 10 BUN 8 - 18 mg/dL 31 (H) Creatinine 0.70 - 1.20 mg/dL 1.37 (H) Estimated GFR >=60 mL/min/1.73 m?? 48 (L) Calcium 8.5 - 10.5 mg/dL 10.2 Phosphorus 2.5 - 4.5 mg/dL 3.3 (H): Data is abnormally high (L): Data is abnormally low Latest Reference Range & Units 08/04/22 13:58 Glucose Lvl 65 - 199 mg/dL 98 Albumin 3.2 - 5.2 g/dL 4.5 Total Prot Elec 6.1 - 8.0 g/dL 6.8 Albumin Elect 3.20 - 5.20 g/dL 4.43 Alpha1-Globulin 0.10 - 0.30 g/dL 0.16 Alpha2-Globulin 0.40 - 0.90 g/dL 0.77 Beta Globulin 0.50 - 1.00 g/dL 0.72 Gamma Globulin 0.50 - 1.30 g/dL 0.73 M1 Band None Detected None Detected Orick Free Light Chain 0.72 - 2.75 mg/dL 2.45 Lambda Free Light Chain 0.57 - 2.15 mg/dL 2.05 Orick Lambda FLC Ratio 0.4000 - 2.5800 1.1951 Latest Reference Range & Units 08/04/22 13:39 U Protein Ran 0 - 12 mg/dL 0 - 12 mg/dL <6 <6 U Albumin % total 38 U Globulin % total 62 U M Band None Detected Latest Reference Range & Units 08/04/22 13:58 25-OH Vit D Total 21 - 100 ng/mL 32 25-OH Vit D Interp Sufficient Latest Reference Range & Units 08/04/22 13:58 PTH 15 - 65 pg/mL 187 (H) (H): Data is abnormally high Latest Reference Range & Units 08/04/22 13:39 Color UA Yellow Yellow Appearance UA Clear Clear Spec Spencer UA 1.005 - 1.030 1.004 (L) pH UA 5.0 - 8.0 7.5 Protein UA Negative mg/dL Negative Glucose UA Negative mg/dL Negative Ketones UA Negative mg/dL Negative Bilirubin UA Negative mg/dL Negative Urobilinogen UA Normal mg/dL Normal Blood UA Negative mg/dL Negative Leukocytes UA Negative mcL Negative Nitrite UA Negative Negative WBC UA 0 - 5 /HPF <1 RBC UA 0 - 4 /HPF <1 (L): Data is abnormally low Latest Reference Range & Units 08/04/22 13:39 Prot/Cre Ratio ratio <0.8 U Protein Ran 0 - 12 mg/dL 0 - 12 mg/dL <6 <6 U Creatinine mg/dL 8 U Albumin % total 38 U Globulin % total 62 U M Band None Detected U PEP Comments See Note A/P: 47 y.o. old female seen at the request of Dr. Michelet Monge for evaluation of CKD. Review of trends in renal function show creatinine ranging 1.37-1.51 since December of 2020. GFR today 48, indicating CKD stage 3b, likely due to buttermaker lithium use. Long-term administration of lithium is associated with chronic interstitial nephrosis that may be partially reduced with use of amiloride. It is uncertain how this would affect serum lithium levels, so close monitoring and management will be necessary if amiloride is started. Will get input from her psychiatrist before starting. The alternative would be continuing lithium and monitoring renal function or finding an alternative. Serologic work-up for secondary pathologies including SPEP, UPEP, and free light chains negative. Urinalysis is normal, though dilute with SG of 1.004 in setting of polydipsia. ??? Anemia - She does have anemia with Hgb of 9.9. Will check iron studies with next appointment. If iron stores are low, will discuss oral iron vs IV iron repletion with pt. If iron stores adequate,will discuss Aranesp administration with patient. KDIGO Hgb goal in CKD is 10.0-11.5g/dL. Ferritin >100ng/dl, TSAT >20% ??? Bone and mineral - PTH 187, difficult to distinguish between lithium induced hyperparathyroidism vs primary hyperparathyroidism vs secondary hyperparathyroidism. She also has a history of hypercalcemia, prohibiting initiation of calcitriol. Will send referral to endocrinology. KDIGO PTH goals in CKD: Stage 3 - PTH 35-70pg/ml Stage 4 - PTH 70-110pg/ml Stage 5 - PTH 150-300pg/ml ??? Acid-base - Mild metabolic acidosis is present with CO2 of 20. Will continue to monitor at thispoint as adding sodium bicarbonate supplement may increase her polyuria. ??? Electrolytes - Potassium and sodium are in range. ??? Nutrition - Normal albumin suggests adequate protein intake. ??? Transplant/access referral - Not indicated. ??? Return to clinic - Will return in approximately 4 months for follow-up. Patient encouraged to reach out with any questions or concerns. >the total time spent [id number] AND total time the provider spent counseling was 45 minutes. Please CC to: Haylie Steward MD @PCPADD@ Addendum: 08/12/22, discussed use of Amiloride with pts psychiatrist Dr. Michelet Monge. Decision was made that pt will start Amiloride 5mg daily and Dr. Monge will follow lithium levels. Patient is aware. documented in this encounter Miscellaneous Notes * Addendum Note - Sharmin Jean-Baptiste APRN - 08/04/2022 1:00 PM EDTAddended by: SHARMIN JEAN-BAPTISTE on: 08/12/2022 11:15 AM Modules accepted: Orders documented in this encounter Plan of Treatment Upcoming Encounters Date Type Department Care Team (Latest Contact Info) Description 04/22/2024 9:45 AM EST Scheduled View Only Radiation Oncology at [address] [phone] 04/25/2024 8:30 AM EST Scheduled View Only Radiation Oncology at [address] [phone] 04/26/2024 3:00 PM EST Scheduled View Only Radiation Oncology at [address] [phone] 04/26/2024 3:30 PM EST Office Visit Radiation Oncology at [address] [phone] Ofe Fonseca MD [facility] RADIATION ONCOLOGY [place] [address] 04/28/2024 2:45 PM EST Scheduled View Only Radiation Oncology at [address] [phone] 04/29/2024 3:00 PM EST Scheduled View Only Radiation Oncology at [address] [phone] 05/02/2024 3:45 PM EST Scheduled View Only Radiation Oncology at [address] [phone] 05/03/2024 1:45 PM EST Scheduled View Only Radiation Oncology at [address] [phone] 05/03/2024 2:15 PM EST Office Visit Radiation Oncology at [address] [phone] Ofe Fonseca MD [facility] [place] [address] 05/05/2024 8:15 AM EST Scheduled View Only Radiation Oncology at [address] [phone] 05/06/2024 12:30 PM EST Scheduled View Only Radiation Oncology at [address] [phone] 05/09/2024 3:00 PM EST Scheduled View Only Radiation Oncology at [address] [phone] 05/10/2024 2:30 PM EST Scheduled View Only Radiation Oncology at [address] [phone] 05/10/2024 3:15 PM EST Office Visit Radiation Oncology at [address] [phone] Ofe Fonseca MD [facility] [place] [address] 05/11/2024 2:45 PM EST Scheduled View Only Radiation Oncology at [address] [phone] 06/03/2024 3:30 PM EST Appointment Ultrasound at [place] [phone] Mira Hutchison [facility] [place] [address] 06/23/2024 4:00 PM EST Appointment Mammography/DXA at [place] [phone] Miryam Feliciano MD [facility] [place] [address] 07/12/2024 8:00 AM EDT Laboratory Appointment Lab [address] [phone] 07/12/2024 9:30 AM EDT Office Visit Nephrology Hypertension at [place] [phone] Sharmin Jean-Baptiste [facility] [place] [address] 07/13/2024 10:30 AM EDT Laboratory Appointment Lab at [facility] Hematology Oncology [address] [place] [phone] 07/13/2024 11:30 AM EDT Office Visit Hematology [place] [phone] Salena Alvares, JULIUS [facility] [place] [address] 07/13/2024 12:45 PM EDT Appointment Hematology [place] [address] Scheduled Referrals Name Type Priority Associated Diagnoses Order Schedule Referral to Endocrinology Outpatient Referral Routine Stage 3b chronic kidney disease Hyperparathyroidism Ordered: 08/08/2022 documented as of this encounter Procedures Procedure Name Priority Date/Time Associated Diagnosis Comments IMMUNOGLOBULIN FREE LIGHT CHAINS, SERUM Routine 08/04/2022 1:58 PM EDT Stage 3b chronic kidney disease HC PARATHYROID HORMONE(PTH INTACT Routine 08/04/2022 1:58 PM EDT Stage 3b chronic kidney disease SCAN, PERIPHERAL BLOOD Routine 1:58 PM EDT HEMOGRAM Routine 08/04/2022 1:58 PM EDT Stage 3b chronic kidney disease DIFFERENTIAL, AUTOMATED Routine 08/05/19 23 1:58 PM EDT Stage 3b chronic kidney disease HC VITAMIN D TOTAL-25 HYDROXY Routine 08/04/2022 1:58 PM EDT Stage 3b chronic kidney disease HC CBC,PLT & AUTO DIFF Routine 1:58 PM EDT Stage 3b chronic kidney disease PROTEIN ELECTROPHORESIS, SERUM Routine 08/04/2022 1:58 PM EDT Stage 3b chronic kidney disease HC PHOSPHORUS, SERUM Routine 08/04/2022 1:58 PM EDT Stage 3b chronic kidney disease ALBUMIN LEVEL Routine 08/04/2022 1:58 PM EDT Stage 3b chronic kidney disease BASIC METABOLIC PANEL Routine 08/04/2022 1:58 PM EDT Stage 3b chronic kidney disease HC URINALYSIS ROUTINE Routine 08/04/2022 1:39 PM EDT Stage 3b chronic kidney disease HC CREATININE - NON BLOOD Routine 08/04/2022 1:39 PM EDT Stage 3b chronic kidney disease PROTEIN ELECTROPHORESIS, URINE, RANDOM Routine 08/04/2022 1:39 PM EDT Stage 3b chronic kidney disease documented in this encounter Results * Scan, Peripheral Blood (08/04/2022 1:58 PM EDT) Plat estimate Normal [facility] RBC Morphology Abnormal [facility] Microcyte 1-5 /HPF [facility] Hypochromia Moderate [facility] Ovalocytes 1-5 /HPF [facility] Blood 08/04/2022 1:58 PM EDT 08/04/2022 2:04 PM EDT Narrative Resulting Agency Comment Spec In Lab Sharmin L Estiven DIRECTOR [employer] ORDERA BLES [facility] [place] [address] * (ABNORMAL) Differential, Automated (08/04/2022 1:58 PM EDT) Neutrophil % 71.9 % [facility] Neutrophil Absolute 6.88(H) 1.70 - 6.10 x10(3)/mc L [facility] Lymph % 18.9 % [facility] Lymphocytes Abs 1.8 0.9 - 3.2 x10(3)/mc L [facility] Monocyte % 6.4 % [facility] Monocyte Abs 0.6 0.3 - 0.9 x10(3)/mc L [facility] Eos % 2.3 % [facility] Eosinophils Abs 0.2 0.0 - 0.4 x10(3)/mc L [facility] Basophil % 0.3 % [facility] Baso Absolute 0.0 0.0 - 0.1 x10(3)/mc L [facility] Immature Gran % 0.20 % [facility] Comment: Immature granulocytes(IG's)percentage and absolute count will include metamyelocytes, myelocytes, and promyelocytes. Blood smears from CBCs yielding IG's will be scanned manually for concordance. If this scan disagrees with the automated IG or if promyelocytes are noted, a manual differential will be performed. Immature Gran Absolute 0.02 0.00 - 0.04 x10(3)/ L [facility] Blood 08/04/2022 1:58 PM EDT 08/04/2022 2:04 PM EDT Narrative Resulting Agency Comment Spec In Lab Sharmin Jean-Baptiste DIRECTOR [employer] ORDERA BLES [facility] [place] [address] * (ABNORMAL) Hemogram (08/04/2022 1:58 PM EDT) White Blood Cell 9.6(H) 4.0 - 9.5 x10(3)/mc L [facility] Red Blood Cell 4.20 4.00 - 5.21 x10(6)/ L [facility] Hemoglobin 9.9(L) 11.7 - 15.5 g/dL [facility] Hematocrit 33.9(L) 35.7 - 45.8 % [facility] Mean Cell Volume 80.7(L) 82.6 - 94.4 fL [facility] Mean Cell Hemoglobin 23.6(L) 27.1 - 32.0 pg [facility] Mean Cell Hemoglobin Concentration 29.2(L) 31.7 - 35.0 g/dL [facility] Platelet 316 145 - 357 x10(3)/mc L [facility] RDW Standard Deviation 48.0(H) 37.0 - 46.0 fL [facility] RDW coefficient of variation 16.4(H) 11.5 - 14.1 % [facility] Mean Platelet Volume 9.1 7.6 - 12.9 fL [facility] NRBC% auto 0.0 % [facility] NRBC Absolute 0.000 0.000 - 0.000 x10(3)/mc L [facility] Blood 08/04/2022 1:58 PM EDT 08/04/2022 2:04 PM EDT Narrative Resulting Agency Comment Spec In Lab Sharmin Jean-Baptiste DIRECTOR [employer] ORDERA BLES Performing Organization Address City/[facility] Co de Phone Number [facility] [place] [address] * Protein Electrophoresis, serum (08/04/2022 1:58 PM EDT) Total Prot Electrophoresis 6.8 6.1 - 8.0 g/dL [facility] Albumin Electrophoresis 4.43 3.20 - 5.20 g/dL [facility] Alpha 1 Globulin 0.16 0.10 - 0.30 g/dL [facility] Alpha 2 Globulin 0.77 0.40 - 0.90 g/dL [facility] Beta Globulin 0.72 0.50 - 1.00 g/dL [facility] Gamma Globulin 0.73 0.50 - 1.30 g/dL [facility] M1 Band None Detected None Detected [facility] Blood 08/04/2022 1:58 PM EDT 08/04/2022 2:04 PM EDT Narrative Resulting Agency Comment Spec In Lab Sharmin Jean-Baptiste DIRECTOR [employer] CHEMISTR[employer] ORDERAB LES Performing Organization Address City/[facility] Co de Phone Number [facility] [place] [address] * Free Light Chains, Serum (08/04/2022 1:58 PM EDT) Orick Free Light Chain 2.45 0.72 - 2.75 mg/dL [facility] Lambda Free Light Chain 2.05 0.57 - 2.15 mg/dL [facility] Orick/Lambda FLC Ratio 1.1951 0.4000 - 2.5800 [facility] Blood 08/04/2022 1:58 PM EDT 08/04/2022 2:04 PM EDT Narrative Resulting Agency Comment Spec In Lab Sharmin L Estiven DIRECTOR [employer] CHEMI[employer] ORDERAB LES Performing Organization Address City/[facility] Co de Phone Number [facility] [place] [address] * Vitamin D, 25-Hydroxy (08/04/2022 1:58 PM EDT) Vitamin D Total 25 OH 32 21 - 100 ng/mL [facility] Vit D Interp Sufficient [facility] Blood 08/04/2022 1:58 PM EDT 08/04/2022 2:04 PM EDT Narrative Resulting Agency Comment Spec In Lab Sharmin L Estiven DIRECTOR [employer] CHEMISTR[employer] ORDERAB LES Performing Organization Address [facility] Co de Phone Number [facility] [place] [address] * (ABNORMAL) PTH (08/04/2022 1:58 PM EDT) Parathyroid Hormone 187(H) 15 - 65 pg/mL [facility] Blood 08/04/2022 1:58 PM EDT 08/04/2022 2:04 PM EDT Narrative Resulting Agency Comment Spec In Lab Sharmin L Estiven DIRECTOR [employer] CHEMI[employer] ORDERAB LES Performing Organization Address City/[facility] Co de Phone Number [facility] [place] [address] * Phosphorus (08/04/2022 1:58 PM EDT) Phosphorus 3.3 2.5 - 4.5 mg/dL [facility] Blood 08/04/2022 1:58 PM EDT 08/04/2022 2:04 PM EDT Narrative Resulting Agency Comment Spec In Lab Sharmin L Estiven DIRECTOR [employer] CHEMISTR[employer] ORDERAB LES Performing Organization Address City/[facility] Co de Phone Number [facility] [place] [address] * (ABNORMAL) Basic Metabolic Panel (non-fasting) (08/04/2022 1:58 PM EDT) Glucose 98 65 - 199 mg/dL [facility] Comment:Diabetes: >=200 mg/d L plus symptoms Blood Urea Nitrogen 31(H) 8 - 18 mg/dL [facility] Creatinine 1.37(H) 0.70 - 1.20 mg/dL [facility] Sodium 143 135 - 145 mmol/L [facility] Potassium 4.2 3.5 - 5.0 mmol/L [facility] Comment: Please note: ??Patients with WBC >100,000 may have falsely elevated Potassium levels. ??For accurate Potassium quantification in these patients send serum separator tube (gold top) for subsequent determinations. ??Contact the Clinical Chemistry Laboratory if there are any questions. Chloride 113(H) 98 - 107 mmol/L [facility] Carbon Dioxide 20(L) 22 - 31 mmol/L [facility] Anion Gap 10 5 - 15 mmol/L [facility] Calcium 10.2 8.5 - 10.5 mg/dL [facility] Est Glomerular Filtration Rate 48(L) >=60 mL/min/1. 73 m?? [facility] Comment: This patient's estimated GFR [...] and symptoms in addition to eGFR. Blood 08/04/2022 1:58 PM EDT 08/04/2022 2:04 PM EDT Narrative Resulting Agency Comment Spec In Lab Sharmin Jean-Baptiste DIRECTOR [employer] ORDERAB LES Performing Organization Address City/[facility]/ZIP Co de Phone Number [facility] [place] [address] * Albumin Level (08/04/2022 1:58 PM EDT) Albumin 4.5 3.2 - 5.2 g/dL [facility] Blood 08/04/2022 1:58 PM EDT 08/04/2022 2:04 PM EDT Narrative Resulting Agency Comment Spec In Lab Sharmin L Estiven DIRECTOR [employer] CHEMI[employer] ORDERAB LES Performing Organization Address City/[facility] Co de Phone Number [facility] [place] [address] * Protein/Creatinine Ratio, urine (08/04/2022 1:39 PM EDT) Creatinine, Urine 8 mg/dL [facility] Protein, Urine <6 0 - 12 mg/dL [facility] Protein / Creatinine Ratio, Urine <0.8 ratio [facility] Urine 08/04/2022 1:39 PM EDT 08/04/2022 3:34 PM EDT Narrative Resulting Agency Comment Spec In Lab Sharmin L Estiven DIRECTOR AUDIENCE MARKETING URINE ORDERABLES Performing Organization Address [facility] de Phone Number [facility] [place] [address] * Protein Electrophoresis, urine, random (08/04/2022 1:39 PM EDT) Protein, Urine <6 0 - 12 mg/dL [facility] U Albumin 38 % total [facility] Globulin, Urine 62 % total [facility] M1 Band, Urine None Detected [facility]PEP Comments See Note [facility] Comment: There is no evidence of clonal free light chains in this patient's urine sample. Urine 08/04/2022 1:39 PM EDT 08/04/2022 3:34 PM EDT Narrative Resulting Agency Comment Spec In Lab Sharmin L Estiven DIRECTOR AUDIENCE MARKETING URINE ORDERABLES [facility] [place] [address] * (ABNORMAL) _Urinalysis with microscopic (08/04/2022 1:39 PM EDT) Glucose, Urine Dipstick Negative Negative mg/dL [facility] Protein, Urine Dipstick Negative Negative mg/dL [facility] Bilirubin, Urine Dipstick Negative Negative mg/dL [facility] Comment: Clinical correlation required for positive Urine Bilirubin results as false positive may occur with some drugs and drug related products. If a false positive is suspected a serum total bilirubin should be considered if clinically indicated. Urobilinogen, Urine Dipstick Normal Normal mg/dL [facility] pH, Urn (dipstick) 7.5 5.0 - 8.0 [facility] Blood, Urine Dipstick Negative Negative mg/dL [facility] Ketone, Urine Dipstick Negative Negative mg/dL [facility] Nitrite, Urine Dipstick Negative Negative [facility] Leukocytes, Urine Dipstick Negative Negative mcL [facility] Appearance, Urine Dipstick Clear Clear [facility] Specific Spencer Urine Automated 1.004(L) 1.005 - 1.030 [facility] Color, Urine Dipstick Yellow Yellow [facility] RBC, Urine <1 0 - 4 /HPF [facility] WBC, Urine <1 0 - 5 /HPF [facility] Urine 08/04/2022 1:39 PM EDT 08/04/2022 3:33 PM EDT Narrative Resulting Agency Comment Spec In Lab Sharmin Jean-Baptiste DIRECTOR AUDIENCE MARKETING URINE ORDERABLES [facility] [place] [address] documented in this encounter Visit Diagnoses Diagnosis Stage 3b chronic kidney disease Hyperparathyroidism Hyperparathyroidism, unspecified Stage 3b chronic kidney disease (CKD) Anemia, unspecified type documented in this encounter Care Teams Screw Supervisor Relationship Specialty Start Date End Date Haylie Steward MD [facility] [place] [address] PCP - General General Internal Medicine 08/04/22 documented as of this encounter
== END 2024-04-22 00:36 ==
LOC: DI 00:16
PROVIDERS: PCP Legal Medicine; Visit Provider Nurse Practitioner Family
DX: R93.429 Abnormal radiologic findings on diagnostic imaging of unspecified kidney (principal)
CPT/HCPCS: 76770

== ENCOUNTER 2024-04-29 01:48 | Outpatient (CLI) | payer MEDICARE, SELFPAY ==
--- OUTSIDE RECORDS SUMMARY | 2024-04-29 01:50 | XMS_ITS | Clinical Summary ---
Author Organization [facility] Address [facility] [place] [address] Care Team Providers Care Program Mgr Name Role Phone Haylie Steward MD Primary Care Provider [phone] Allergies Active Allergy Reactions Criticality Noted Date Comments Ibuprofen Low 08/10/2013 Patient states it affects her bipolar medication [place]. Nsaids (Non-Steroidal Anti-Inflammatory Drug) 03/03/2016 All interfere [...] positive 01/19/2024 Overview (01/19/2024): 01/14/24 bx Cottage: ER+/NJ+/HER2 pending left breast IDC, low grade, and DCIS, low grade 01/14/24 left breast U/S bx Cottage: 1.3 cm, 7:00, 3 FN Bipolar 1 disorder 07/15/2023 [place] intoxication, accide ntal or unintentional, initial encounter [...] Encounters Date Type Department Care Team Description 04/28/2024 Travel 04/25/2024 Travel 04/23/2024 Travel 04/22/2024 4:30 PM EST Ancillary Procedure Radiology Library at [facility] [place] [address] Haylie Steward MD 04/22/2024 Travel 04/20/2024 Travel 04/19/2024 11:00 AM EST Office Visit Radiation Oncology at [address] [phone] Ofe Fonseca MD Malignant neoplasm of lower-inner quadrant of left breast in female, estrogen receptor positive 04/18/2024 Travel 04/15/2024 2:42 PM EST - 04/15/2024 11:59 PM EST Hospital Encounter Hematology [place] [phone] Malignant neoplasm of lower-inner quadrant of left breast in female, estrogen receptor positive Discharge Disposition: Home 04/15/2024 Travel 04/15/2024 Orders Only Hematology [place] [phone] Salena Alvares APRN 04/14/2024 9:20 AM EST Office [place] [address] Mira Hutchison APRN Urinary retention 04/14/2024 Telephone Hematology [place] [address] Haylie Pinzon, master cook Management (Misc questions about AI and [place]) 04/13/2024 Travel 04/13/2024 Telephone Hematology [place] [address] Kimberlee Kennedy RN 04/12/2024 12:15 PM EST Office Visit Radiation Oncology at [address] [phone] Ofe Fonseca MD Malignant neoplasm of lower-inner quadrant of left breast in female, estrogen receptor positive 04/11/2024 9:40 AM EST Office Visit Nephrology [place] [address] Sharmin Jean-Baptiste APRN CKD (chronic kidney disease) stage 2, GFR 60-89 ml/min; Vitamin D deficiency; Stress incontinence, female 04/11/2024 8:30 AM EST Laboratory Appointment Lab [address] [place] [phone] CKD (chronic kidney disease) stage 2, GFR 60-89 ml/min; Vitamin D deficiency 04/11/2024 Travel 04/08/2024 Travel 04/07/2024 3:30 PM EST Office [place] [address] Yoselin Rolle APRN Malignant neoplasm of lower-inner quadrant of left breast in female, estrogen receptor positive 04/07/2024 2:00 PM EST Office Visit Hematology [place] [address] Miryam Feliciano MD Malignant neoplasm of lower-inner quadrant of left breast in female, estrogen receptor positive; Aromatase inhibitor use; Medication management 04/07/2024 Travel 03/22/2024 12:30 PM EST Ancillary Appointment Radiation Oncology at [address] [phone] Ofe Fonseca MD Malignant neoplasm of lower-inner quadrant of left breast in female, estrogen receptor positive 03/22/2024 Notes Only Radiation Oncology at [address] [phone] Anusha Washburn, [place] 03/22/2024 Travel 03/22/2024 Orders Only [place] [address] Ofe Fonseca MD Malignant neoplasm of lower-inner quadrant of left breast in female, estrogen receptor positive 03/20/2024 Travel 03/15/2024 2:55 PM EST Laboratory Appointment Lab [address] [place] [address] Bipolar 1 disorder 03/15/2024 Travel 03/01/2024 Telephone [place] [address] Danelle Davis RN 02/29/2024 2:30 PM EDT - 02/29/2024 3:48 PM EDT Surgery [facility] [place] [phone] Hailey Dawson MD MASTECTOMY PARTIAL (WRVU 10.13) 02/29/2024 2:05 PM EDT Anesthesia Event [place] [phone] Obdulio Herring MD Mancini, Amy L, [facility] 02/29/2024 1:00 PM EDT - 02/29/2024 4:42 PM EDT Hospital Encounter [place] [place] [address] Hailey Dawson MD Discharge Disposition: Home 02/22/2024 9:00 AM EDT Office Visit Radiation Oncology at [address] [phone] Ofe Fonseca MD Malignant neoplasm of lower-inner quadrant of left breast in female, estrogen receptor positive 02/22/2024 Travel 02/15/2024 External [place] [address] 02/15/2024 Travel 02/12/2024 Telephone Hematology [place] [address] Sharmin Farnsworth Other (02/11 - Oncotype submitted) 02/11/2024 Notes Only Hematology and Oncology at [place] [phone] Miryam Feliciano MD 02/05/2024 1:12 PM EDT Anesthesia Event [facility] [place] [phone] Betsy Alcaraz MD 02/05/2024 12:40 PM EDT - 02/05/2024 2:37 PM EDT Surgery [facility] [place] [phone] Hailey Dawson MD MASTECTOMY PARTIAL (WRVU 10.13) 02/05/2024 12:30 PM EDT - 02/05/2024 11:59 PM EDT Hospital Encounter Mammography at [place] [phone] Hailey Dawson MD History of breast cancer Discharge Disposition: Home 02/05/2024 12:00 PM EDT - 02/05/2024 12:29 PM EDT Hospital Encounter Mammography at [place] [phone] Hailey Dawson MD History of breast cancer Discharge Disposition: Home 02/05/2024 11:12 AM EDT - 02/05/2024 4:30 PM EDT Hospital Encounter [facility] [place] [phone] Hailey Dawson MD Discharge Disposition: Home 02/04/2024 Telephone Mammography at [place] [phone] Glendy Tovar, [place] 02/02/2024 Patient Outreach Hematology and Oncology at [place] [phone] Alma Moseley RN 02/01/2024 8:50 AM EDT - 02/01/2024 11:59 PM EDT Hospital Encounter [place] [address] Aleida Sosa MD Abnormal finding on breast imaging Discharge Disposition: Home 02/01/2024 8:49 AM EDT Hospital Encounter [place] [address] Hailey Dawson MD History of breast cancer Discharge Disposition: Home 02/01/2024 8:49 AM EDT Hospital Encounter [place] [address] Aleida Sosa MD Abnormal finding on breast imaging Discharge Disposition: Home 02/01/2024 Travel from Last 3 Months Immunizations Name Administration [...] your doctor or pharmacy? Rarely 02/15/2024 [facility] Utilities Answer Date Recorded In [...] time in the past 12 m [facility], were you homeless or living in [...] Department Care Team (Latest Contact Info) Description 04/29/2024 3:00 PM EST Scheduled View Only Radiation Oncology at [address] [phone] 05/02/2024 3:45 PM EST Scheduled View Only Radiation Oncology at [address] [phone] 05/03/2024 1:45 PM EST Scheduled View Only Radiation Oncology at [address] [phone] 05/03/2024 2:15 PM EST Office Visit Radiation Oncology at [address] [phone] Ofe Fonseca MD [facility] DR RADIATION ONCOLOGY [place] [phone] 05/05/2024 8:15 AM EST Scheduled View Only Radiation Oncology at [address] [address] 05/06/2024 12:30 PM EST Scheduled View Only Radiation Oncology at [address] [phone] 05/09/2024 12:30 PM EST Scheduled View Only Radiation Oncology at [address] [phone] 05/10/2024 2:30 PM EST Scheduled View Only Radiation Oncology at [address] [address] 05/10/2024 3:15 PM EST Office Visit Radiation Oncology at [address] [phone] Ofe Fonseca MD [facility] [place] [address] 05/11/2024 2:30 PM EST Scheduled View Only Radiation Oncology at [address] [phone] 05/11/2024 3:15 PM EST Scheduled View Only Radiation Oncology at [address] [phone] Ofe Fonseca MD [facility] [place] [address] 05/12/2024 2:45 PM EST Scheduled View Only Radiation Oncology at [address] [phone] 06/03/2024 3:30 PM EST Appointment Ultrasound at [address] Mira Hutchison [facility] [place] [address] 06/23/2024 4:00 PM EST Appointment Mammography/DXA at [place] [phone] Miryam Feliciano MD [facility] [place] [address] 07/12/2024 8:00 AM EDT Laboratory Appointment Lab [place] [phone] 07/12/2024 9:30 AM EDT Office Visit Nephrology Hypertension at [place] [phone] Sharmin Jean-Baptiste FILM REPRODUCER [facility] [place] [address] 07/13/2024 10:30 AM EDT Laboratory Appointment Lab at [facility] On[facility] [address] [place] [address] 07/13/2024 11:30 AM EDT Office Visit Hematology [place] [address] Salena Alvares APRN [facility] [place] [address] 07/13/2024 12:45 PM EDT Appointment Hematology [place] [address] Health Maintenance Due Date Last Done Comments CT Colonography 1974 FIT DNA 1974 FIT 1974 Sigmoidoscopy 1974 HIV screen 02/24/1992 Hepatitis C Screening 02/24/1992 Pneumococcal Vaccine: At-Ris k 5-64yrs (1 of 2 - PCV) 1993 HPV test 02/24/2004 PAP Smear 02/24/2004 Breast Cancer Share Decision Needed 2014 Hepatitis B vaccine (0-59 yrs) (2) 06/29/20182018 Covid-19 Vaccine (2 - 2023-2 5 season) 2024 04/12/2021 Influenza (Flu) vaccine (1 o f 1 - Influenza standard series) 01/03/2024 01/24/2020, 01/18/2019, 05/24/2018, Additional history exists Zoster vaccine (1 of 2) 02/24/2024 Breast Cancer screening 01/13/2026 01/14/20 24, 11/10/2022, 11/10/2022 Diabetes Screening (HgbA1C o r Glucose) 04/11/2027 04/11/2024, 01/21/2024, 10/26/2023, Additional history exists Lipid Screening 06/25/2027 06/25/2022 Tetanus/Diphtheria/Pertussis Vaccines (2 - Td or Tdap) 11/20/2027 11/19/2017 Colonoscopy 06/11/2033 06/11/2023, 06/11/2023 Colorectal Cancer Screening 06/11/2033 Sigmoidoscopy (10 year) with FIT yearly 06/11/2033 06/11/2023, 06/11/2023 Procedures Procedure Name Priority Date/Time Associated Diagnosis Comments FILM LIBRARY STORAGE ONLY ULTRASOUND STUDY Routine 04/22/2024 4:29 PM EST DIAGNOSTIC RADIOLOGY SCAN 04/22/2024 12:00 AM EST URINALYSIS MICROSCOPIC EXAM Routine 04/11/2024 9:07 AM [...] 2:07 PM EDT BREAST CANCER Mastectomy Partial (50118) Yes 02/29/2024 2:07 PM EDT BREAST CANCER [...] 02/05/2024 1:12 PM EDT breast cancer Intraop Lorida Lymph Id W/Dye Injection (12102) Yes 02/05/2024 1:12 PM EDT breast cancer Bx/Remv, Lymph Node, Deep Axill (12545) Yes 02/05/2024 1:12 PM EDT breast cancer Mastectomy Partial (84326) Yes 02/05/2024 1:12 PM EDT breast cancer [...] Recently Relevant to Health Maintenance Results * Film Library- Storage Only Ultrasound Study (04/22/2024 4:29 PM EST) Narrative DH RAD - 04/22/2024 4:29 PM EST This exam is auto-finalizing. It's purpose is for storage only. Haylie Steward MD IM FILM LIBRARY ORD ERABLES [place], [place] * Scan Doc: Diagnostic Radiology (04/22/2024 12:00 AM EST) Anatomical Region Laterality Modality Other Narrative 04/22/2024 12:00 AM EST Ordered by an unspecified provider. Scanning Provider MEDIA MGR SCAN EXT O RDR/RSLT * Urinalysis Microscopic Exam (04/11/2024 9:07 AM EST) Bacteria, Urine None None /HPF 10:15 AM [facility] RBC, Urine 0 0 - 4 /HPF 04/11/2024 10:15 AM [facility] WBC, Urine 0 0 - 5 /HPF 04/11/2024 10:15 AM [facility] Squamous Epithelial Cells, Urine 0 0 - 5 /HPF 04/11/2024 10:15 AM [facility] Hyaline Casts, Urine 0 0 - 2 /LPF 04/11/2024 10:15 AM [facility] Urine Non Blood Collection / Unknown 04/11/2024 9:07 AM EST 04/11/2024 9:07 AM EST Sharmin Jean-Baptiste APRN URINE ORDERABLES [facility] [place] [address] * Protein/Creatinine Ratio, urine (04/11/2024 9:07 AM EST) Protein, Urine <4 0 - 12 mg/dL 04/11/2024 10:07 AM EST [facility] Creatinine, Urine 10 mg/dL 04/11/2024 10:07 AM EST [facility] Protein / Creatinine Ratio, Urine <0.4 ratio 04/11/2024 10:07 AM [facility] Urine URINE SPECIMEN / Unknown Non Blood Collection / Unknown 04/11/2024 9:07 AM EST 04/11/2024 9:07 AM EST Sharmin Jean-Baptiste FILM REPRODUCER URINE ORDERABLES [facility] [place] [address] * Urinalysis Dipstick (04/11/2024 9:07 AM EST) Glucose, Urine Dipstick Negative Negative 04/11/2024 10:15 AM [facility] Protein, Urine Dipstick Negative Negative 04/11/2024 10:15 AM [facility] Bilirubin, Urine Dipstick Negative Negative 04/11/2024 10:15 AM [facility] Comment:Clinical correlation required for positive Urine Bilirubin results as false positive may occur with some drugs and drug related products. If a false positive is suspected a serum total bilirubin should be considered if clinically indicated. Urobilinogen, Urine Dipstick Normal Normal, 0.2 mg/dL, 1.0 mg/dL 04/11/2024 10:15 AM [facility] pH, Urine (dipstick) 7.0 5.0 - 8.0 04/11/2024 10:15 AM [facility] Blood, Urine Dipstick Negative Negative 04/11/2024 10:15 AM [facility] Ketone, Urine Dipstick Negative Negative 04/11/2024 10:15 AM [facility] Nitrite, Urine Dipstick Negative Negative 04/11/2024 10:15 AM [facility] Leukocytes, Urine Dipstick Negative Negative 04/11/2024 10:15 AM [facility] Specific [place] Urine Automated 1.006 1.005 - 1.030 04/11/2024 10:15 AM [facility] Appearance, Urine Dipstick Clear Clear 04/11/2024 10:15 AM EST [facility] Color, Urine Dipstick Yellow Yellow, Dark Yellow 04/11/2024 10:15 AM EST [facility] CULTURE ADDED? 04/11/2024 10:15 AM EST [facility] Urine Non Blood Collection / Unknown 04/11/2024 9:07 AM EST 04/11/2024 9:07 AM EST Sharmin Jean-Baptiste FILM REPRODUCER URINE ORDERABLES Performing Organization Address City/[facility]/ZIP Co de Phone Number [facility] [place] [address] * (ABNORMAL) PTH (04/11/2024 9:05 AM EST) Parathyroid Hormone 92(H) 15 - 65 pg/mL 04/11/2024 10:03 AM EST [facility] Blood VENOUS BLOOD SPECIMEN / Unknown Venipuncture / Unknown 04/11/2024 9:05 AM EST 04/11/2024 9:05 AM EST Sharmin Jean-Baptiste APRN CHEMISTRY ORDERAB LES Performing Organization Address [facility]/ZIP Co de Phone Number [facility] [place] [address] * (ABNORMAL) Iron and TIBC (04/11/2024 9:05 AM EST) Iron 73 30 - 150 mcg/dL 04/11/2024 11:11 AM EST [facility] TIBC 381 250 - 450 mcg/dL 04/11/2024 11:11 AM EST [facility] Iron Saturation 19(L) 20 - 50 % 11:11 AM EST [facility] Blood VENOUS BLOOD SPECIMEN / Unknown Venipuncture / Unknown 04/11/2024 9:05 AM EST 04/11/2024 9:05 AM EST Sharmin Jean-Baptiste FILM REPRODUCER CHEMISTRY ORDERAB LES [facility] [place] [address] * Vitamin D, 25-Hydroxy (04/11/2024 9:05 AM EST) Vitamin D Total 25 OH 33 21 - 100 ng/ml 04/11/2024 11:53 AM EST [facility] Vitamin D Total 25 OH Interp Sufficient 04/11/2024 11:53 AM [facility] Blood VENOUS BLOOD SPECIMEN / Unknown Venipuncture / Unknown 04/11/2024 9:05 AM EST 04/11/2024 9:05 AM EST Sharmin Jean-Baptiste FILM REPRODUCER CHEMISTRY ORDERAB LES [facility] [place] [address] * (ABNORMAL) CBC (with Diff) (04/11/2024 9:05 AM EST) Pathologist [facility] White Blood Cell 4.88 4.00 - [...] - 0.10 x10(3)/mc L 04/11/2024 9:37 AM EST [facility] Immature Gran % 0.2 % 9:37 AM EST [facility] Immature Gran Absolute <0.04 0.00 - 0.04 x10(3)/mc L 04/11/2024 9:37 AM EST [facility] Blood VENOUS BLOOD SPECIMEN / Unknown Venipuncture / Unknown 04/11/2024 9:05 AM EST 04/11/2024 9:05 AM EST Sharmin L Estiven FILM REPRODUCER HEMATOLOGY ORDERA BLES Performing Organization Address City/[facility]/ZIP Co de Phone Number [facility] [place] [address] * Phosphorus (04/11/2024 9:05 AM EST) Phosphorus 2.8 2.5 - 4.5 mg/dL 04/11/2024 9:59 AM EST [facility] Blood VENOUS BLOOD SPECIMEN / Unknown Venipuncture / Unknown 04/11/2024 9:05 AM EST 04/11/2024 9:05 AM EST Sharmin L Estiven FILM REPRODUCER CHEMISTRY ORDERAB LES Performing Organization Address City/[facility]/ZIP Co de Phone Number [facility] [place] [address] * Ferritin (04/11/2024 9:05 AM EST) Ferritin 37 6 - 175 ng/ml 04/11/2024 10:05 AM EST [facility] Blood VENOUS BLOOD SPECIMEN / Unknown Venipuncture / Unknown 04/11/2024 9:05 AM EST 04/11/2024 9:05 AM EST Sharmin L Estiven FILM REPRODUCER CHEMISTRY ORDERAB LES [facility] [place] [address] * Albumin Level (04/11/2024 9:05 AM EST) Albumin 4.1 3.2 - 5.2 g/dL 04/11/2024 9:59 AM [facility] Blood VENOUS BLOOD SPECIMEN / Unknown Venipuncture / Unknown 04/11/2024 9:05 AM EST 04/11/2024 9:05 AM EST Sharmin Jean-Baptiste FILM REPRODUCER CHEMISTRY ORDERAB LES [facility] [place] [address] * (ABNORMAL) Basic Metabolic Panel Non-fasting (04/11/2024 [...] 22 - 31 mMol/L 04/11/2024 9:59 AM EST [facility] Anion Gap 14 5 - 15 [...] Fasting Status Yes 04/11/2024 9:59 AM EST [facility] Blood VENOUS BLOOD SPECIMEN / Unknown Venipuncture / Unknown 04/11/2024 9:05 AM EST 04/11/2024 9:05 AM EST Sharmin Jean-Baptiste FILM REPRODUCER CHEMISTRY ORDERAB LES Performing Organization Address City/State/[facility] Co de Phone Number [facility] [place] [address] * CT Rad Onc Chest Interp Only (03/22/2024 1:33 PM EST) WORKSTATION ID [id number] RAD Anatomical Region Laterality Modality Chest Computed [...] who have questions please contact the health intensive care nurse that requested your imaging first. ? Electronically signed by: Obdulio Gilliland MD, [facility] ??([phone]), at 03/22/2024 3:53 PM Narrative 03/22/2024 3:53 PM EST EXAMINATION: CT RAD ONC CHEST INTERP ONLY CLINICAL HISTORY: 49 y/o f w/breast ca, L, IDC, gr 1, ER+NJ+, Her2-, DCIS, s/p lumpectomy & SNB followed [...] f w/breast ca, L, IDC, gr 1, ER+NJ+, Her2-, DCIS,s/p lumpectomy & SNB followed by [...] patients who have questions please contactthe health intensive care nurse that requested your imaging first. Electronically signed by: Obdulio Gilliland MD, [facility]([phone]), at 03/22/2024 3:53 PM Ofe Fonseca MD IMG OUTSIDE INTERPRE TATION ORDERABLES * T3, free (03/15/2024 12:27 PM EST) Free T3 2.3 2.0 - 4.4 pg/mL 03/15/2024 1:18 PM EST [facility] Blood VENOUS BLOOD SPECIMEN / Unknown Venipuncture / Unknown 03/15/2024 12:27 PM EST 03/15/2024 12:27 PM EST Michelet Monge MD CHEMISTRY ORDERABLES Performing Organization Address City/[facility]/ZIP Co de Phone Number [facility] [place] [address] * (ABNORMAL) T3 Total (03/15/2024 12:27 PM EST) T3 Total 73(L) 80 - 200 ng/dL 03/15/2024 1:18 PM EST [facility] Blood VENOUS BLOOD SPECIMEN / Unknown Venipuncture / Unknown 03/15/2024 12:27 PM EST 03/15/2024 12:27 PM EST Michelet Monge MD CHEMISTRY ORDERABLES [facility] [place] [address] * TSH (03/15/2024 12:27 PM EST) Thyroid Stimulating Hormone 1.85 0.27 - 4.20 mcIU/mL 03/15/2024 1:18 PM EST [facility] Comment: Reference Interval (mcIU/mL): ?? Females: ? First Trimester: 0.23-3.88 ? Second Trimester: 0.22-3.90 ? Third Trimester: 0.44-4.66 Blood VENOUS BLOOD SPECIMEN / Unknown Venipuncture / Unknown 03/15/2024 12:27 PM EST 03/15/2024 12:27 PM EST Michelet Monge MD CHEMISTRY ORDERABLES Performing Organization Address City/[facility] Co de Phone Number [facility] [place] [address] * T4, free (03/15/2024 12:27 PM EST) Free T4 1.49 0.93 - 1.70 ng/dL 03/15/2024 1:18 PM EST [facility] Comment: Reference Interval (ng/dL): ?? Females: ? First Trimester: 0.97-1.68 ? Second Trimester: 0.77-1.51 ? Third Trimester: 0.77-1.49 Blood VENOUS BLOOD SPECIMEN / Unknown Venipuncture / Unknown 03/15/2024 12:27 PM EST 03/15/2024 12:27 PM EST Michelet Monge MD CHEMISTRY ORDERABLES Performing Organization Address City/[facility]/ZIP Co de Phone Number [facility] [place] [address] * T4 Total (03/15/2024 12:27 PM EST) T4 Total 8.6 5.3 - 11.6 mcg/dL 03/15/2024 1:18 PM EST [facility] Comment: Reference Interval (mcg/dL): ?? Females: ? First Trimester: 6.3-13.5 ? Second Trimester: 7.1-14.3 ? Third Trimester: 6.9-14.1 Blood VENOUS BLOOD SPECIMEN / Unknown Venipuncture / Unknown 03/15/2024 12:27 PM EST 03/15/2024 12:27 PM EST Michelet Monge MD CHEMISTRY ORDERABLES [facility] [place] [address] * XR Fluoro No Rad <1Hr - OR Use (02/29/2024 3:25 PM EDT) Narrative Dicom, Auditing User - 02/29/2024 3:58 PM EDT This exam is auto-finalizing. No interpretation was done. Hailey Dawson MD IMG FLUORO ORDERABL ES * Mammo Specimen Left (02/29/2024 3:20 PM EDT) Only the most recent of3 resultswithin the time period is included. WORKSTATION ID [id number] 1 DH RAD Anatomical [...] who have questions please contact the health intensive care nurse that requested your imaging first. ? Electronically signed by: Martha Martino MD, [facility] ([phone]), at 02/29/2024 4:06 PM [facility] [address] [place], [place] ??[address] Hailey Dawson MD IMG MAMMO ORDERABLE S * Surgical Pathology (02/29/2024 3:16 PM EDT) Only the most recent of3 resultswithin the time period is included. Case Report Surgical Pathology Report ? Case: [id number] ? Authorizing Provider: ??Hailey Dawson MD ? Collected: ? 02/29/2024 1516 ? [facility]ing Location[facility] ??Received: ?02/29/2024 1538 ? [facility] ? Hospital ? Pathologist: ? Sil Maguire MD ? Specimens: ?? A) - Breast, Left, Left breast partial mastectomy lesion 3 ? B) - Breast, Left, Margin, Lateral Margin of Left Breast Lesion 1 ? C) - Breast, Left, Margin, Posterior Margin of Left Breast Lesion 1 ? 03/15/2024 4:06 PM [facility] Final Diagnosis A. Breast, Left, Partial [...] hyperplasia, negative for malignancy. 03/15/2024 4:06 PM [facility] Additional Studies Task ID IHC/Special Stains Result A2-2 Calponin Positive A5-2 Calponin Positive A10-2 Calponin Positive A13-2 Calponin Positive A14-2 Calponin Positive A15-2 Calponin Positive B3-2 p63 Positive B3-3 Calponin Positive C2-2 CK5 Positive in area of interest C2-3 ER (Clone SP1) Patchy positive in area of interest 03/15/2024 4:06 PM [facility] Disclaimer(s) Formalin-fixed, paraffin-embedded tissue sections are [...] and other diagnostic tests. 03/15/2024 4:06 PM [facility] Clinical Information A. Breast, Left, Left breast partial mastectomy lesion 3 Known malignancy - as specified in Clinical Information BREAST CANCER Left breast partial mastectomy lesion 3 03/15/2024 4:06 PM [facility] Gross Description A. Breast, Left, Left [...] Additional separate fragmented tissue 03/15/2024 4:06 PM [facility] Result Note Routine 03/15/2024 4:06 PM [facility] Tissue LEFT BREAST STRUCTURE / Unknown [...] Lesion 1 Hailey Dawson MD PATHOLOGY/CYTOLOGY ORDERABLES [facility] [place] [address] * Scan Doc: Genetic Study (02/24/2024 12:00 AM EDT) Narrative 02/24/2024 12:00 AM EDT Ordered by an unspecified provider. Scanning Provider MEDIA MGR SCAN EXT O RDR/RSLT * Scan Doc: Surgical Pathology (02/15/2024 1:24 PM EDT) Historical Provider MEDIA MGR SCAN EX T ORDR/RSLT * Mammo Diagnostic Without Cad Left (02/01/2024 10:36 AM EDT) WORKSTATION ID [id number] 1 DH RAD Anatomical Region Laterality Modality [...] who have questions please contact the health intensive care nurse that requested your imaging first. ? [facility] [address] [place], [place] ??[address] Aleida Urban MD IMG MAMM O ORDERABLES * Mammo Magseed Placement Multiple Left (02/01/2024 10:17 AM EDT) WORKSTATION ID [id number] 1 [facility] Anatomical Region Laterality Modality Breast Left Mammography [...] who have questions please contact the health intensive care nurse that requested your imaging first. ? [facility] [place] ??[address] Narrative 02/01/2024 1:27 PM EDT EXAMINATION: MAMMO [...] (02/01/2024 10:17 AM EDT) WORKSTATION ID [id number] 3 DH RAD Anatomical Region Laterality Modality Breast Left Mammography Impressions 02/07/2024 1:26 PM EDT Probably concordant result RECOMMENDATION: Surgical consultation for known left breast cancer and conveyed to the operating surgeon via CardioVIP message. These results were discussed with the [...] who have questions please contact the health intensive care nurse that requested your imaging first. ? [facility] [address] [place], [place] ??[address] Narrative 02/07/2024 1:26 PM EDT EXAMINATION: MAMMO [...] Urban MD IMG MAMM O ORDERABLES * MAMMO SCREENING CAD BILATERAL (CH) (01/14/2024 8:39 AM EDT) PT CLASS O RAD ADMITDTTM [id number] RAD PT RAD INFO [id number]^Steward^ Haylie RAD EXAM DESC MADDSCCH^MG Mammo Digital [...] who have questions please contact the health intensive care nurse that requested your imaging first. ? [address] [place], [place] ??[address] Narrative 01/14/2024 11:24 AM EDT EXAMINATION: MG [...] patients who have questions please contactthe health intensive care nurse that requested your imaging first. [address] [address] Haylie Steward MD PACS IMAGES * COLONOSCOPY (06/11/2023 3:10 PM EST) COLONOSCOPY [facility] Endoscopy Procedure Date: 06/11/2023 3:10 PM ? Patient Name: Nataliya Morfin ? Date of : 1975 ? Age: 48 ? Order #: [id number] ? Instrument Name: [id number] ? Procedure: ? Colonoscopy Indications: ? Chronic diarrhea, Iron deficiency ? anemia, prior normal colo 2014 ? (including non-targeted colon ? biopsies) Providers: ? Jack Page MD, Iggy Mason ? Ольга Bauer, Marce ? Rolly Bermeo MD: ?Haylie Steward MD, Lyssa Bland. ? [place] Medicines: ? Monitored Anesthesia Care Complications: ? [...] the ? physician, the nurse, the ? physical education professor and the debug technician. The ? procedure was verified in [...] care under ? the supervision of a OFFSET PRINTING OPERATOR was ? determined to be medically ? [...] preparation was evaluated ? using the BBPS ([place] Bowel ? Preparation Scale) with scores of: [...] 9:49 AM EST) Cholesterol, Total 202 mg/dL [facility] Comment: Lower Risk: <200 mg/dL Average Risk: 200-239 mg/dL Higher Risk: >aq=143 mg/dL Triglyceride 97 mg/dL [facility] Comment: Average Risk/Lower Risk: <150 mg/dL Borderline High Risk: 150-199 mg/dL High Risk: 200-499 mg/dL Very High Risk: >eu=000 mg/dL HDL Cholesterol 83 mg/dL [facility] Comment: Males: ?? Higher Risk: <40 mg/dL Females: ?? Higher Risk: <50 mg/dL LDL Cholesterol 100 mg/dL [facility] Comment: Lowest Risk: <100 mg/dL Lower Risk: 100-129 mg/dL Borderline High Risk: 130-159 mg/dL High Risk: 160-189 mg/dL Very High Risk: >hy=458 mg/dL Cholesterol/HDL Ratio 2.4 ratio [facility] Lipid Interpretation See Note [facility] Comment: Lipid management should be guided by a patient? s ASCVD risk, goals and preferences. ACC/AHA Guidelines recommend high intensity statin if clinical ASCVD or LDL greater than or equal to 190 mg/dL. http://Wakie.com/EIZ-KPJ-Dvwjckstl Adults aged 40-75 with LDL 70-189 mg/dL should have their 10 year ASCVD risk estimated with the ACC/AHA ASCVD risk auto dealership porter http://tools.acc.org/LTVVT-Khpq-Djfbryncr/ Statin should be discussed if risk greater [...] In Lab Michelet Monge MD CHEMISTRY ORDERABLES [facility] [place] [address] from Last 3 Months or Most Recently Relevant to Health Maintenance Advance Directives * Attempt Cardiopulmonary Resuscitation - Inpatient (Latest Code Status on File) Date Activated Date Inactivated Comments 09/06/2022 11:08 PM 09/09/2022 2:21 PM Question Answer Comments Code Status decision made by: Patient Care Teams Program Mgr Relationship Specialty Start Date End Date Haylie Steward [place] [address] [place] [address] PCP - General General Internal Medicine 08/04/22
--- OUTSIDE RECORDS SUMMARY | 2024-04-29 01:51 | XMS_ITS | Encounter Summary ---
Author Organization [facility] [place] [address] Care Team Providers Care Social Work Associate Name Role Phone Haylie Steward MD Primary Care Provider + [phone] Encounter Details Date Type Department Care Team [...] from your doctor or pharmacy? Rarely 02/15/2024 [facility] Utilities Answer Date Recorded In the [...] were you homeless or living in a mcfp (including now)? No 02/15/2024 DH IPV Inpatient [...] Scheduled View Only Radiation Oncology at [address] [address] 05/02/2024 3:45 PM EST Scheduled View Only Radiation Oncology at [address] [address] 05/03/2024 1:45 PM EST Scheduled View Only Radiation Oncology at [address] [address] 05/03/2024 2:15 PM EST Office Visit Radiation Oncology at [address] [address] Ofe Fonseca MD [facility] [place] [address] 05/05/2024 8:15 AM EST Scheduled View Only Radiation Oncology at [address] [address] 05/06/2024 12:30 PM EST Scheduled View Only Radiation Oncology at [address] [address] 05/09/2024 12:30 PM EST Scheduled View Only Radiation Oncology at [address] [address] 05/10/2024 2:30 PM EST Scheduled View Only Radiation Oncology at [address] [address] 05/10/2024 3:15 PM EST Office Visit Radiation Oncology at [address] [address] Ofe Fonseca MD [facility] [place] [address] 05/11/2024 2:30 PM EST Scheduled View Only Radiation Oncology at [address] [address] 05/11/2024 3:15 PM EST Scheduled View Only Radiation Oncology at [address] [address] Ofe Fonseca MD [facility] [place] [address] 05/12/2024 2:45 PM EST Scheduled View Only Radiation Oncology at [address] [address] 06/03/2024 3:30 PM EST [place] [address] Mira Hutchison APRN [facility] [place] [address] 06/23/2024 4:00 PM EST Appointment Mammography/DXA at [place] [address] Miryam Feliciano MD [facility] [place] [address] 07/12/2024 8:00 AM EDT Laboratory Appointment Lab [address] [address] 07/12/2024 9:30 AM EDT Office Visit Nephrology Hypertension at [place] [address] Sharmin Jean-Baptiste, [facility] [place] [address] 07/13/2024 10:30 AM EDT Laboratory Appointment Lab at [facility] Hematology Oncology [address] [place] [address] 07/13/2024 11:30 AM EDT Office Visit Hematology and Oncology at [place] [address] Salena Alvares, [facility] [place] [address] 07/13/2024 12:45 PM EDT Appointment Hematology and Oncology at [place] [address] documented as of this encounter Visit Diagnoses Not on filedocumented in this encounter Care Teams Social Work Associate Relationship Specialty Start Date End Date Haylie Steward MD [facility] [place] [address] PCP - General General Internal Medicine 08/04/22 documented as of this encounter
--- OUTSIDE RECORDS SUMMARY | 2024-04-29 01:51 | XMS_ITS | Encounter Summary ---
Author Organization Formerly [facility] Address [facility] [place] [address] Care Team Providers Care Seed Yeast Operator Name Role Phone Haylie Steward MD Primary Care Provider + [phone] Reason for Visit * Reason Comments On Treatment Visit Encounter Details Date Type Department Care Team (Late st Contact Info) Description 04/19/2024 11:00 AM EST Office Visit Radiation Oncology at [address] [phone] Ofe Fonseca MD [facility] [place] [address] Malignant neoplasm of lower-inner quadrant of left [...] doctor or pharmacy? Rarely 02/15/2024 [facility] Utilities Answer Date Recorded In the past 12 months has th e [employer], gas, oil, or water company threatened to [...] any time in the past 12 m [facility], were you homeless or living in a custodial (including now)? No 02/15/2024 DH IPV Inpatient [...] DIAGNOSIS: Breast ca, L, IDC, gr 1, ER+IL+, Her2-, DCIS, s/p lumpectomy & SNB followed [...] For details, see electronic film record in [employer]. Changes in Medical Condition: Headache yesterday, took 1000 mg tylenol which lessened it; mild headache today, less than yesterday; h/o headaches in the past which were more frequent & more painful than recent headaches. Tired. Skin w/in irrad'd area ok; asks if residual bruise on upper L breast is expected. Urologist has ordered US of kidneys, to be done @ [facility] 04/22/24. PCP not concerned about cholelithiasis seen [...] Scheduled View Only Radiation Oncology at [address] [phone] 05/02/2024 3:45 PM EST Scheduled View Only Radiation Oncology at [address] [phone] 05/03/2024 1:45 PM EST Scheduled View Only Radiation Oncology at [address] [address] 05/03/2024 2:15 PM EST Office Visit Radiation Oncology at [address] [phone] Ofe Fonseca MD [facility] [place] [address] 05/05/2024 8:15 AM EST Scheduled View Only Radiation Oncology at [address] [address] 05/06/2024 12:30 PM EST Scheduled View Only Radiation Oncology at [address] [address] 05/09/2024 12:30 PM EST Scheduled View Only Radiation Oncology at [address] [address] 05/10/2024 2:30 PM EST Scheduled View Only Radiation Oncology at [address] [phone] 05/10/2024 3:15 PM EST Office Visit Radiation Oncology at [address] [address] Ofe Fonseca MD [facility] [place] [address] 05/11/2024 2:30 PM EST Scheduled View Only Radiation Oncology at [address] [phone] 05/11/2024 3:15 PM EST Scheduled View Only Radiation Oncology at [address] [phone] Ofe Fonseca MD [facility] [place] [address] 05/12/2024 2:45 PM EST Scheduled View Only Radiation Oncology at [address] [phone] 06/03/2024 3:30 PM EST Appointment Ultrasound at [place] [phone] Mira Hutchison SECOND OFFICER [facility] [place] [address] 06/23/2024 4:00 PM EST Appointment Mammography/DXA at [address] Miryam Feliciano MD [facility] [place] [address] 07/12/2024 8:00 AM EDT Laboratory Appointment Lab [address] [phone] 07/12/2024 9:30 AM EDT Office Visit Nephrology Hypertension at [place] [phone] Sharmin Jean-Baptiste [facility] [place] [address] 07/13/2024 10:30 AM EDT Laboratory Appointment Lab at [facility] Hematology Oncology [address] [place], [place] [phone] 07/13/2024 11:30 AM EDT Office Visit Hematology [place] [address] Salena Alvares APRN [facility] [place] [address] 07/13/2024 12:45 PM EDT Appointment Hematology [place] [address] documented as of this encounter Visit Diagnoses Diagnosis Malignant neoplasm of lower-inner quadrant of left breast in female, estrogen receptor positive documented in this encounter Care Teams Seed Yeast Operator Relationship Specialty Start Date [place] [address] PCP - General General Internal Medicine 08/04/22 documented as of this encounter
--- OUTSIDE RECORDS SUMMARY | 2024-04-29 01:51 | XMS_ITS | Encounter Summary ---
Author Organization [facility] [place] [address] Care Team Providers Care Liaison Officer Name Role Phone Haylie Steward MD Primary Care Provider + [phone] Encounter Details Date Type Department Care Team (Late st Contact Info) Description 04/13/2024 Telephone Hematology [place] [phone] Kimberlee Kennedy, RN Social History Tobacco Use [...] from your doctor or pharmacy? Rarely 02/15/2024 [facility] Utilities Answer Date Recorded In the past 12 months has [facility] [employer], gas, oil, or water [employer] threatened to shut off services in your [...] time in the past 12 m [facility], were you homeless or living in [...] shot Please give her a call back [phone] documented in this encounter Plan of Treatment Upcoming Encounters Date Type Department Care Team (Latest Contact Info) Description 04/29/2024 3:00 PM EST Scheduled View Only Radiation Oncology at [address] [phone] 05/02/2024 3:45 PM EST Scheduled View Only Radiation Oncology at [address] [address] 05/03/2024 1:45 PM EST Scheduled View Only Radiation Oncology at [address] [phone] 05/03/2024 2:15 PM EST Office Visit Radiation Oncology at [address] [phone] Ofe Fonseca MD [facility] [place] [address] 05/05/2024 8:15 AM EST Scheduled View Only Radiation Oncology at [address] [phone] 05/06/2024 12:30 PM EST Scheduled View Only Radiation Oncology at [address] [phone] 05/09/2024 12:30 PM EST Scheduled View Only Radiation Oncology at [address] [address] 05/10/2024 2:30 PM EST Scheduled View Only Radiation Oncology at [address] [phone] 05/10/2024 3:15 PM EST Office Visit Radiation Oncology at [address] [phone] Ofe Fonseca MD [facility] [place] [address] 05/11/2024 2:30 PM EST Scheduled View Only Radiation Oncology at [address] [address] 05/11/2024 3:15 PM EST Scheduled View Only Radiation Oncology at [address] [phone] Ofe Fonseca MD [facility] [place] [address] 05/12/2024 2:45 PM EST Scheduled View Only Radiation Oncology at [address] [phone] 06/03/2024 3:30 PM EST Appointment Ultrasound at [place] [phone] Mira Hutchison TETRYL NITRATOR OPERATOR [facility] [place] [place] [address] 06/23/2024 4:00 PM EST Appointment Mammography/DXA at [place] [phone] Miryam Feliciano MD [facility] [place] [address] 07/12/2024 8:00 AM EDT Laboratory Appointment Lab [address] [place], [place] [phone] 07/12/2024 9:30 AM EDT Office Visit Nephrology Hypertension at [place] [phone] Sharmin Jean-Baptiste [facility] [place] [address] 07/13/2024 10:30 AM EDT Laboratory Appointment Lab at [facility] Hematology Oncology [address] [place] [phone] 07/13/2024 11:30 AM EDT Office Visit Hematology [place] [phone] Salena Alvares APRN [facility] [place] [address] 07/13/2024 12:45 PM EDT Appointment Hematology [place] [phone] documented as of this encounter Visit Diagnoses Not on filedocumented in this encounter Care Teams Liaison Officer Relationship Specialty Start Date End [place] [address] PCP - General General Internal Medicine 08/04/22 documented as of this encounter
--- OUTSIDE RECORDS SUMMARY | 2024-04-29 01:51 | XMS_ITS | Encounter Summary ---
Author Organization [facility] [address] Care Team Providers Care Automotive General Manager Name Role Phone Haylie Steward MD Primary Care Provider + [phone] Encounter Details Date Type Department Care Team (Latest Contact Info) Description 04/23/2024 Travel Social History Tobacco Use Types Packs/Day [...] from your doctor or pharmacy? Rarely 02/15/2024 [facility] Utilities Answer Date Recorded In [...] were you homeless or living in a skilled nursing (including now)? No 02/15/2024 DH IPV Inpatient [...] Scheduled View Only Radiation Oncology at [address] [phone] 05/02/2024 3:45 PM EST Scheduled View Only Radiation Oncology at [address] [phone] 05/03/2024 1:45 PM EST Scheduled View Only Radiation Oncology at [address] [address] 05/03/2024 2:15 PM EST Office Visit Radiation Oncology at [address] [phone] Ofe Fonseca MD [facility] [place] [address] 05/05/2024 8:15 AM EST Scheduled View Only Radiation Oncology at [address] [address] 05/06/2024 12:30 PM EST Scheduled View Only Radiation Oncology at [address] [address] 05/09/2024 12:30 PM EST Scheduled View Only Radiation Oncology at [address] [phone] 05/10/2024 2:30 PM EST Scheduled View Only Radiation Oncology at [address] [phone] 05/10/2024 3:15 PM EST Office Visit Radiation Oncology at [address] [phone] Ofe Fonseca MD [facility] [place] [address] 05/11/2024 2:30 PM EST Scheduled View Only Radiation Oncology at [address] [phone] 05/11/2024 3:15 PM EST Scheduled View Only Radiation Oncology at [address] [phone] Ofe Fonseca MD [facility] [address] 05/12/2024 2:45 PM EST Scheduled View Only Radiation Oncology at [address] [address] 06/03/2024 3:30 PM EST [place] [address] Mira Hutchison APRN [facility] [place] [address] 06/23/2024 4:00 PM EST Appointment Mammography/DXA at [place] [address] Miryam Feliciano MD [facility] [place] [place] [address] 07/12/2024 8:00 AM EDT Laboratory Appointment Lab [address] [address] 07/12/2024 9:30 AM EDT Office Visit Nephrology Hypertension at [place] [address] Sharmin Jean-Baptiste, [facility] [place] [address] 07/13/2024 10:30 AM EDT Laboratory Appointment Lab at [facility] Hematology Oncology [address] [place] [address] 07/13/2024 11:30 AM EDT Office Visit Hematology and Oncology at [place] [address] Salena Alvares, [facility] [place] [address] 07/13/2024 12:45 PM EDT Appointment Hematology and Oncology at [place] [address] documented as of this encounter Visit Diagnoses Not on filedocumented in this encounter Care Teams Automotive General Manager Relationship Specialty Start Date End Date Haylie Steward MD [place] [address] PCP - General General Internal Medicine 08/04/22 documented as of this encounter
--- OUTSIDE RECORDS SUMMARY | 2024-04-29 01:51 | XMS_ITS | Encounter Summary ---
Author Organization [facility] [place] [address] Care Team Providers Care Educational Therapy Teacher Name Role Phone Haylie Steward MD Primary Care Provider + [phone] Encounter Details Date Type Department Care Team [...] EST Scheduled View Only Radiation Oncology at [address] [phone] 05/02/2024 3:45 PM EST Scheduled View Only Radiation Oncology at [address] [address] 05/03/2024 1:45 PM EST Scheduled View Only Radiation Oncology at [address] [phone] 05/03/2024 2:15 PM EST Office Visit Radiation Oncology at [address] [phone] Ofe Fonseca MD [facility] DR [place] [address] 05/05/2024 8:15 AM EST Scheduled View Only Radiation Oncology at [address] [phone] 05/06/2024 12:30 PM EST Scheduled View Only Radiation Oncology at [address] [phone] 05/09/2024 12:30 PM EST Scheduled View Only Radiation Oncology at [address] [address] 05/10/2024 2:30 PM EST Scheduled View Only Radiation Oncology at [address] [address] 05/10/2024 3:15 PM EST Office Visit Radiation Oncology at [address] [address] Ofe Fonseca MD [facility] [place] [address] 05/11/2024 2:30 PM EST Scheduled View Only Radiation Oncology at [address] [phone] 05/11/2024 3:15 PM EST Scheduled View Only Radiation Oncology at [address] [phone] Ofe Fonseca MD [facility] [place] [address] 05/12/2024 2:45 PM EST Scheduled View Only Radiation Oncology at [address] [phone] 06/03/2024 3:30 PM EST Appoint[place] [address] Mira Hutchison APRN [facility] [place] [address] 06/23/2024 4:00 PM EST Appointment Mammography/DXA at [place] [address] Miryam Feliciano MD [facility] [place] [address] 07/12/2024 8:00 AM EDT Laboratory Appointment Lab [address] [address] 07/12/2024 9:30 AM EDT Office Visit Nephrology Hypertension at [place] [address] Sharmin Jean-Baptiste, [facility] [place] [address] 07/13/2024 10:30 AM EDT Laboratory Appointment Lab at [facility] [place] [place] Hematology Oncology [address] [place] [address] 07/13/2024 11:30 AM EDT Office Visit Hematology and Oncology at [place] [address] Salena Alvares, [facility] [place] [address] 07/13/2024 12:45 PM EDT Appointment Hematology and Oncology at [place] [address] documented as of this encounter Visit Diagnoses Not on filedocumented in this encounter Care Teams Educational Therapy Teacher Relationship Specialty Start Date End Date Haylie Steward MD [facility] [address] PCP - General General Internal Medicine 08/04/22 documented as of this encounter
--- OUTSIDE RECORDS SUMMARY | 2024-04-29 01:51 | XMS_ITS | Encounter Summary ---
[place] [address] Care Team Providers Care Industrial Hygiene Technician Name Role Phone Haylie Steward MD Primary Care Provider + [phone] Reason for Visit * Treatment/Therapy Plan Authorization (Routine) - Authorized Specialty Diagnoses / Procedures Referred By Contac t Referred To Contact Diagnoses Malignant neoplasm of lower-inner quadrant of left breast in female, estrogen receptor positive Procedures INFUSION Miryam Feliciano MD [facility] [place] [address] [facility] [place] Hem [place] [address] [place] [address] Referral ID Status Reason Start Date Expiration Date V isits Requested Visits Authorized [id number] Authorized 04/14/2024 04/14/2025 99 Encounter Details Date Type Department Care Team (Latest Contact Info) Description 04/15/2024 2:42 PM EST - 04/15/2024 11:59 PM EST Hospital Encounter [place] [address] Malignant neoplasm of lower-inner quadrant [...] from your doctor or pharmacy? Rarely 02/15/2024 [facility] Utilities Answer Date Recorded In [...] any time in the past 12 m [facility] [place], were you homeless or living in a [...] female, estrogen receptor positive who presents to [facility] today for a medication injection of Zoladex. PROTOCOL: [id number] (first time injection) This patient meets criteria [...] Scheduled View Only Radiation Oncology at [address] [address] 05/02/2024 3:45 PM EST Scheduled View Only Radiation Oncology at [address] [address] 05/03/2024 1:45 PM EST Scheduled View Only Radiation Oncology at [address] [address] 05/03/2024 2:15 PM EST Office Visit Radiation Oncology at [address] [address] Ofe Fonseca MD [facility] [place] [address] 05/05/2024 8:15 AM EST Scheduled View Only Radiation Oncology at [address] [address] 05/06/2024 12:30 PM EST Scheduled View Only Radiation Oncology at [address] [address] 05/09/2024 12:30 PM EST Scheduled View Only Radiation Oncology at [address] [address] 05/10/2024 2:30 PM EST Scheduled View Only Radiation Oncology at [address] [address] 05/10/2024 3:15 PM EST Office Visit Radiation Oncology at [address] [address] Ofe Fonseca MD [facility] [place] [address] 05/11/2024 2:30 PM EST Scheduled View Only Radiation Oncology at [address] [address] 05/11/2024 3:15 PM EST Scheduled View Only Radiation Oncology at [address] [address] Ofe Fonseca MD [facility] [place] [address] 05/12/2024 2:45 PM EST Scheduled View Only Radiation Oncology at [address] [address] 06/03/2024 3:30 PM EST [place] [address] Mira Hutchison APRN [facility] [place] [address] 06/23/2024 4:00 PM EST Appointment Mammography/[place] [phone] Miryam Feliciano MD [facility] [place] [place] [address] 07/12/2024 8:00 AM EDT Laboratory Appointment Lab [address] [place], [place] [phone] 07/12/2024 9:30 AM EDT Office Visit [place] [address] Sharmin Jean-Baptiste, [facility] [place] [address] 07/13/2024 10:30 AM EDT Laboratory Appointment Lab at [facility] Hematology Oncology [address] [place], [place] [phone] 07/13/2024 11:30 AM EDT Office Visit Hematology and Oncology at [place] [phone] Salena Alvares, [facility] [place] [address] 07/13/2024 12:45 PM EDT Appointment Hematology and Oncology at [place] [phone] documented as of this encounter Visit Diagnoses [...] mg documented in this encounter Care Teams Industrial Hygiene Technician Relationship Specialty Start Date End Date Haylie Steward MD [facility] [place] [address] PCP - General General Internal Medicine 08/04/22 documented as of this encounter
--- OUTSIDE RECORDS SUMMARY | 2024-04-29 01:51 | XMS_ITS | Encounter Summary ---
Author Organization [facility] [place] [address] Care Team Providers Care Cut Off Sawyer Log Name Role Phone Haylie Steward MD Primary Care Provider + [phone] Encounter Details Date Type Department Care Team [...] from your doctor or pharmacy? Rarely 02/15/2024 [facility] Utilities Answer Date Recorded In the [...] Scheduled View Only Radiation Oncology at [address] [address] 05/02/2024 3:45 PM EST Scheduled View Only Radiation Oncology at [address] [address] 05/03/2024 1:45 PM EST Scheduled View Only Radiation Oncology at [address] [address] 05/03/2024 2:15 PM EST Office Visit Radiation Oncology at [address] [address] Ofe Fonseca MD [facility] [place] [address] 05/05/2024 8:15 AM EST Scheduled View Only Radiation Oncology at [address] [address] 05/06/2024 12:30 PM EST Scheduled View Only Radiation Oncology at [address] [address] 05/09/2024 12:30 PM EST Scheduled View Only Radiation Oncology at [address] [address] 05/10/2024 2:30 PM EST Scheduled View Only Radiation Oncology at [address] [address] 05/10/2024 3:15 PM EST Office Visit Radiation Oncology at [address] [address] Ofe Fonseca MD [facility] [place] [address] 05/11/2024 2:30 PM EST Scheduled View Only Radiation Oncology at [address] [address] 05/11/2024 3:15 PM EST Scheduled View Only Radiation Oncology at [address] [address] Ofe Fonseca MD [facility] [place] [address] 05/12/2024 2:45 PM EST Scheduled View Only Radiation Oncology at [address] [address] 06/03/2024 3:30 PM EST Appointment [place] [address] Mira Hutchison APRN [facility] [place] [address] 06/23/2024 4:00 PM EST Appointment Mammography/DXA at [place] [address] Miryam Feliciano MD [facility] [place] [address] 07/12/2024 8:00 AM EDT Laboratory Appointment Lab [address] [address] 07/12/2024 9:30 AM EDT Office Visit Nephrology Hypertension at [place] [address] Sharmin Jean-Baptiste, [facility] [place] [address] 07/13/2024 10:30 AM EDT Laboratory Appointment Lab at [facility] [place] Oncology [address] [place] [address] 07/13/2024 11:30 AM EDT Office Visit Hematology and Oncology at [place] [address] Salena Alvares, [facility] [place] [address] 07/13/2024 12:45 PM EDT Appointment Hematology and Oncology at [place] [address] documented as of this encounter Visit Diagnoses Not on filedocumented in this encounter Care Teams Cut Off Sawyer Log Relationship Specialty Start Date End Date Haylie Steward MD [facility] [address] PCP - General General Internal Medicine 08/04/22 documented as of this encounter
--- OUTSIDE RECORDS SUMMARY | 2024-04-29 01:51 | XMS_ITS | Encounter Summary ---
Author Organization [facility] [place] [address] Care Team Providers Care Die Machine Operator Name Role Phone Haylie Steward MD Primary Care Provider + [phone] Encounter Details Date Type Department Care Team [...] from your doctor or pharmacy? Rarely 02/15/2024 [facility] Utilities Answer Date Recorded In [...] were you homeless or living in a [place] [facility] [place] facility (including now)? No 02/15/2024 [facility] Inpatient [...] Scheduled View Only Radiation Oncology at [address] [address] 05/02/2024 3:45 PM EST Scheduled View Only Radiation Oncology at [address] [address] 05/03/2024 1:45 PM EST Scheduled View Only Radiation Oncology at [address] [address] 05/03/2024 2:15 PM EST Office Visit Radiation Oncology at [address] [address] Ofe Fonseca MD [facility] [place] [address] 05/05/2024 8:15 AM EST Scheduled View Only Radiation Oncology at [address] [address] 05/06/2024 12:30 PM EST Scheduled View Only Radiation Oncology at [address] [address] 05/09/2024 12:30 PM EST Scheduled View Only Radiation Oncology at [address] [address] 05/10/2024 2:30 PM EST Scheduled View Only Radiation Oncology at [address] [address] 05/10/2024 3:15 PM EST Office Visit Radiation Oncology at [address] [address] Ofe Fonseca MD [facility] [place] [address] 05/11/2024 2:30 PM EST Scheduled View Only Radiation Oncology at [address] [address] 05/11/2024 3:15 PM EST Scheduled View Only Radiation Oncology at [address] [address] Ofe Fonseca MD [facility] [place] [address] 05/12/2024 2:45 PM EST Scheduled View Only Radiation Oncology at [address] [address] 06/03/2024 3:30 PM EST Appointment [place] [address] Mira Hutchison [address]N [facility] [place] [address] 06/23/2024 4:00 PM EST Appointment Mammography/DXA at [place] [address] Miryam Feliciano MD [facility] [place] [address] 07/12/2024 8:00 AM EDT Laboratory Appointment Lab [address] [address] 07/12/2024 9:30 AM EDT Office Visit Nephrology Hypertension at [place] [address] Sharmin Jean-Baptiste, [facility] [place] [address] 07/13/2024 10:30 AM EDT Laboratory Appointment Lab at [facility] Hematology Oncology [address] [place] [address] 07/13/2024 11:30 AM EDT Office Visit Hematology and Oncology at [place] [address] Salena Alvares, [facility] [place] [address] 07/13/2024 12:45 PM EDT Appointment Hematology and Oncology at [place] [address] documented as of this encounter Visit Diagnoses Not on filedocumented in this encounter Care Teams Die Machine Operator Relationship Specialty Start Date End Date Haylie Steward MD [facility] [place] [address] PCP - General General Internal Medicine 08/04/22 documented as of this encounter
--- OUTSIDE RECORDS SUMMARY | 2024-04-29 01:51 | XMS_ITS | Encounter Summary ---
[place] [address] Care Team Providers Care Elevator Constructor Hydraulic Name Role Phone Haylie Steward MD Primary Care Provider + [phone] Reason for Referral * Consultation (Routine) - Closed Specialty Diagnoses / Procedures Referred By Contac t Referred To Contact Urology Diagnoses Stress incontinence, female Sharmin Jean-Baptiste APRN [facility] [place] [address] [facility] [place] [address] Referral ID Status Reason Start Date Expiration Date V isits Requested Visits Authorized [id number] Closed Consult, Test & Treat 04/11/2024 04/11/2025 1 1 Encounter Details Date Type Department Care Team (Latest Contact Info) Description 04/11/2024 9:40 AM EST Office Visit Neph[place] [phone] Sharmin Jean-Baptiste APRN [facility] [place] [address] CKD (chronic kidney disease) stage [...] any time in the past 12 m [facility], were you homeless or living in [...] this encounter Progress Notes * Sharmin Jean-Baptiste, RIVER GUIDE - 04/11/2024 9:40 AM EST Images from the original note were not included. Nephrology/Hypertension Clinic Follow-up Note [id number] ID: 49 y.o.year-old female being seen for [...] just returned from a long weekend in [place]. She shares that her energy level is [...] 60-89 ml/min N18.2 Hyperparathyroidism E21.3 Anemia D64.9 [place] intoxication, accidental or unintentional, initial encounter T56.891A [...] Patient states it affects her bipolar medication [place]. O: Vitals: 04/11/24 0926 BP: 132/79 Pulse: [...] questions or concerns. >the total time spent [id number] AND total time the provider spent counseling was 30 minutes. CC: Haylie Steward MD @[email or web address]@ documented in this encounter Plan of Treatment Upcoming Encounters Date Type Department Care Team (Latest Contact Info) Description 04/29/2024 3:00 PM EST Scheduled View Only Radiation Oncology at [address] [address] 05/02/2024 3:45 PM EST Scheduled View Only Radiation Oncology at [address] [address] 05/03/2024 1:45 PM EST Scheduled View Only Radiation Oncology at [address] [address] 05/03/2024 2:15 PM EST Office Visit Radiation Oncology at [address] [address] Ofe Fonseca MD [facility] [place] [address] 05/05/2024 8:15 AM EST Scheduled View Only Radiation Oncology at [address] [address] 05/06/2024 12:30 PM EST Scheduled View Only Radiation Oncology at [address] [address] 05/09/2024 12:30 PM EST Scheduled View Only Radiation Oncology at [address] [address] 05/10/2024 2:30 PM EST Scheduled View Only Radiation Oncology at [address] [address] 05/10/2024 3:15 PM EST Office Visit Radiation Oncology at [address] [address] Ofe Fonseca MD [facility] [place] [address] 05/11/2024 2:30 PM EST Scheduled View Only Radiation Oncology at [address] [address] 05/11/2024 3:15 PM EST Scheduled View Only Radiation Oncology at [address] [address] Ofe Fonseca MD [facility] [place] [address] 05/12/2024 2:45 PM EST Scheduled View Only Radiation Oncology at [address] [address] 06/03/2024 3:30 PM EST Appointment Ultrasound at [place] [phone] Mira Hutchison APRN [facility] [place] [address] 06/23/2024 4:00 PM EST Appointment Mammography/DXA at [place] [phone] Miryam Feliciano MD [facility] [place] [address] 07/12/2024 8:00 AM EDT Laboratory Appointment Lab [address] [place] [address] 07/12/2024 9:30 AM EDT Office Visit Nephrology Hypertension at [place] [phone] Sharmin Jean-Baptiste APRN [facility] [place] [address] 07/13/2024 10:30 AM EDT Laboratory Appointment Lab at [facility] [place] On[place] [address] [place] [phone] 07/13/2024 11:30 AM EDT Office Visit Hematology [place] [address] Salena Alvares [facility] [place] [address] 07/13/2024 12:45 PM EDT Appointment Hematology [place] [address] Scheduled Referrals Name Type Priority Associated Diagnoses Orde r Schedule Referral to Urology Outpatient Referral Routine Stress incontinence, female Ordered: 04/11/2024 documented as of this encounter Results * Protein/Creatinine Ratio, urine (04/11/2024 9:07 AM EST) Pathologist [facility] Protein, Urine <4 0 - 12 mg/dL 04/11/2024 10:07 AM EST [facility] Creatinine, Urine 10 mg/dL 04/11/2024 10:07 AM EST [facility] Protein / Creatinine Ratio, Urine <0.4 ratio 04/11/2024 10:07 AM EST [facility] Urine URINE SPECIMEN / Unknown Non Blood Collection / Unknown 04/11/2024 9:07 AM EST 04/11/2024 9:07 AM EST Sharmin Jean-Baptiste APRN URINE ORDERABLES [facility] [place] [address] * Vitamin D, 25-Hydroxy (04/11/2024 9:05 AM EST) Vitamin D Total 25 OH 33 21 - 100 ng/ml 04/11/2024 11:53 AM EST [facility] Vitamin D Total 25 OH Interp Sufficient 04/11/2024 11:53 AM EST [facility] Blood VENOUS BLOOD SPECIMEN / Unknown Venipuncture / Unknown 04/11/2024 9:05 AM EST 04/11/2024 9:05 AM EST Sharmingilberto Jean-Baptiste RIVER GUIDE CHEMISTRY ORDERAB LES Performing Organization Address City/[facility]/ZIP Co de Phone Number [facility] [place] [address] * (ABNORMAL) PTH (04/11/2024 9:05 AM EST) Parathyroid Hormone 92(H) 15 - 65 pg/mL 04/11/2024 10:03 AM EST [facility] Blood VENOUS BLOOD SPECIMEN / Unknown Venipuncture / Unknown 04/11/2024 9:05 AM EST 04/11/2024 9:05 AM EST Sharmin Antonia AgueroEstiven RIVER GUIDE CHEMISTRY ORDERAB LES Performing Organization Address [facility] Co de Phone Number [facility] [place] [address] * Phosphorus (04/11/2024 9:05 AM EST) Phosphorus 2.8 2.5 - 4.5 mg/dL 04/11/2024 9:59 AM EST [facility] Blood VENOUS BLOOD SPECIMEN / Unknown Venipuncture / Unknown 04/11/2024 9:05 AM EST 04/11/2024 9:05 AM EST Sharmin L Estiven RIVER GUIDE CHEMISTRY ORDERAB LES Performing Organization Address City/[facility] Co de Phone Number [facility] [place] [address] * (ABNORMAL) Iron and TIBC (04/11/2024 9:05 AM EST) Iron 73 30 - 150 mcg/dL 04/11/2024 11:11 AM [facility] TIBC 381 250 - 450 mcg/dL 04/11/2024 11:11 AM [facility] Iron Saturation 19(L) 20 - 50 % 11:11 AM [facility] Blood VENOUS BLOOD SPECIMEN / Unknown Venipuncture / Unknown 04/11/2024 9:05 AM EST 04/11/2024 9:05 AM EST Sharmingilberto Jean-Baptiste RIVER GUIDE CHEMISTRY ORDERAB LES [facility] [place] [address] * Ferritin (04/11/2024 9:05 AM EST) Ferritin 37 6 - 175 ng/ml 04/11/2024 10:05 AM [facility] Blood VENOUS BLOOD SPECIMEN / Unknown Venipuncture / Unknown 04/11/2024 9:05 AM EST 04/11/2024 9:05 AM EST Sharmingilberto Jean-Baptiste RIVER GUIDE CHEMISTRY ORDERAB LES [facility] [place] [address] * (ABNORMAL) CBC (with Diff) (04/11/2024 9:05 AM EST) White Blood Cell 4.88 4.00 - 9.50 x10(3)/mc L 04/11/2024 9:37 AM [facility] Red Blood Cell 4.47 4.00 - 5.21 x10(6)/mc L 04/11/2024 9:37 AM [facility] Hemoglobin 13.7 11.7 - 15.5 g/dL 04/11/2024 9:37 AM [facility] Hematocrit 43.1 35.7 - 45.8 % 04/11/2024 9:37 AM [facility] Mean Cell Volume 96.4(H) 82.6 - 94.4 fL 04/11/2024 9:37 AM [facility] Mean Cell Hemoglobin 30.6 27.1 - 32.0 pg 04/11/2024 9:37 AM [facility] Mean Cell Hemoglobin Concentration 31.8 31.7 - 35.0 g/dL 04/11/2024 9:37 AM [facility] Platelet 185 145 - 357 x10(3)/mc L 04/11/2024 9:37 AM [facility] Mean Platelet Volume 9.6 7.6 - 12.9 fL 04/11/2024 9:37 AM [facility] RDW Standard Deviation 47.8(H) 37.0 - 46.0 fL 04/11/2024 9:37 AM [facility] RDW coefficient of variation 13.3 11.5 - 14.1 % 04/11/2024 9:37 AM [facility] NRBC% auto 0.0 % 04/11/2024 9:37 AM [facility] NRBC Absolute <0.01 <0.01 x10(3)/mc L 04/11/2024 9:37 AM [facility] Neutrophil % 60.7 % 04/11/2024 9:37 AM [facility] Neutrophil Absolute (ANC) - Automated 2.96 1.70 - 6.10 x10(3)/mc L 04/11/2024 9:37 AM [facility] Lymph % 25.8 % 04/11/2024 9:37 AM [facility] Lymph Absolute 1.26 0.90 - 3.20 x10(3)/mc L 04/11/2024 9:37 AM [facility] Monocyte % 9.0 % 04/11/2024 9:37 AM [facility] Monocyte Absolute 0.44 0.30 - 0.90 x10(3)/mc L 04/11/2024 9:37 AM [facility] Eos % 3.7 % 04/11/2024 9:37 AM [facility] Eos Absolute 0.18 0.00 - 0.40 x10(3)/mc L 04/11/2024 9:37 AM [facility] Basophil % 0.6 % 04/11/2024 9:37 AM [facility] Baso Absolute <0.04 0.00 - 0.10 x10(3)/mc L 04/11/2024 9:37 AM [facility] Immature Gran % 0.2 % 9:37 AM [facility] Immature Gran Absolute <0.04 0.00 - 0.04 x10(3)/mc L 04/11/2024 9:37 AM [facility] Blood VENOUS BLOOD SPECIMEN / Unknown Venipuncture / Unknown 04/11/2024 9:05 AM EST 04/11/2024 9:05 AM EST Sharmin Jean-Baptiste APRN HEMATOLOGY ORDERA BLES [facility] [place] [address] * (ABNORMAL) Basic Metabolic Panel Non-fasting (04/11/2024 9:05 AM EST) Glucose 83 65 - 99 mg/dL 04/11/2024 9:59 AM [facility] Comment: Fasting Glucose Interpretive Criteria: Normal: 65-99 mg/dL ?? Prediabetes: 100-125 mg/dL ?? Consistent with Diabetes Mellitus: > or = 126 mg/dL ?? Classification and Diagnosis of Diabetes: Standards of Care in Diabetes - 2022. Diabetes Care 202; 46:S19. Fasting is defined as no caloric intake for at least 8 hours. Blood Urea Nitrogen 26(H) 8 - 18 mg/dL 04/11/2024 9:59 AM [facility] Creatinine 0.99 0.70 - 1.20 mg/dL 04/11/2024 9:59 AM [facility] Sodium 144 135 - 145 mMol/L 04/11/2024 9:59 AM [facility] Potassium 4.7 3.5 - 5.0 mMol/L 04/11/2024 9:59 AM [facility] Chloride 110(H) 98 - 107 mMol/L 04/11/2024 9:59 AM [facility] Carbon Dioxide 20(L) 22 - 31 mMol/L 04/11/2024 9:59 AM [facility] Anion Gap 14 5 - 15 mMol/L 04/11/2024 9:59 AM [facility] Calcium 10.2 8.5 - 10.5 mg/dL 04/11/2024 9:59 AM [facility] Est Glomerular Filtration Rate - Female 70 mL/min/1. 73 m?? 04/11/2024 9:59 AM [facility] Comment: This patient's estimated GFR was [...] Foundation Fasting Status Yes 04/11/2024 9:59 AM [facility] Blood VENOUS BLOOD SPECIMEN / Unknown Venipuncture / Unknown 04/11/2024 9:05 AM EST 04/11/2024 9:05 AM EST Sharmin Jean-Baptiste RIVER GUIDE CHEMISTRY ORDERAB LES [facility] [place] [address] * Albumin Level (04/11/2024 9:05 AM EST) Albumin 4.1 3.2 - 5.2 g/dL 04/11/2024 9:59 AM EST [facility] Blood VENOUS BLOOD SPECIMEN / Unknown Venipuncture / Unknown 04/11/2024 9:05 AM EST 04/11/2024 9:05 AM EST Sharmin Jean-Baptiste RIVER GUIDE CHEMISTRY ORDERAB LES [facility] [place] [address] documented in this encounter Visit Diagnoses Diagnosis CKD (chronic kidney disease) stage 2, GFR 60-89 ml/min Chronic kidney disease, Stage II (mild) Vitamin D deficiency Unspecified vitamin D deficiency Stress incontinence, female Female stress incontinence documented in this encounter Care Teams Elevator Constructor Hydraulic Relationship Specialty Start Date [place] [address] PCP - General General Internal Medicine 08/04/22 documented as of this encounter
--- OUTSIDE RECORDS SUMMARY | 2024-04-29 01:51 | XMS_ITS | Encounter Summary ---
Author Organization [facility] [place] [address] Care Team Providers Care Lead Java Developer Architect Name Role Phone Haylie Steward MD Primary Care Provider + [phone] Encounter Details Date Type Department Care Team (Latest Contact Info) Description 04/28/2024 Travel Social History Tobacco Use Types Packs/Day [...] from your doctor or pharmacy? Rarely 02/15/2024 [facility] Utilities Answer Date Recorded In the past [...] Scheduled View Only Radiation Oncology at [address] [address] 05/02/2024 3:45 PM EST Scheduled View Only Radiation Oncology at [address] [address] 05/03/2024 1:45 PM EST Scheduled View Only Radiation Oncology at [address] [address] 05/03/2024 2:15 PM EST Office Visit Radiation Oncology at [address] [phone] Ofe Fonseca MD [facility] [place] [address] 05/05/2024 8:15 AM EST Scheduled View Only Radiation Oncology at [address] [address] 05/06/2024 12:30 PM EST Scheduled View Only Radiation Oncology at [address] [address] 05/09/2024 12:30 PM EST Scheduled View Only Radiation Oncology at [address] [address] 05/10/2024 2:30 PM EST Scheduled View Only Radiation Oncology at [address] [address] 05/10/2024 3:15 PM EST Office Visit Radiation Oncology at [address] [phone] Ofe Fonseca MD [facility] [place] [address] 05/11/2024 2:30 PM EST Scheduled View Only Radiation Oncology at [address] [address] 05/11/2024 3:15 PM EST Scheduled View Only Radiation Oncology at [address] [address] Ofe Fonseca MD [facility] [place] [address] 05/12/2024 2:45 PM EST Scheduled View Only Radiation Oncology at [address] [address] 06/03/2024 3:30 PM EST [place] [address] Mira Hutchison APRN [facility] [place] [address] 06/23/2024 4:00 PM EST Appointment Mammography/DXA at [place] [address] Miryam Feliciano MD [facility] [place] [address] 07/12/2024 8:00 AM EDT Laboratory Appointment Lab [address] [address] 07/12/2024 9:30 AM EDT Office Visit Nephrology Hypertension at [place] [address] Sharmin Jean-Baptiste, [facility] [place] [address] 07/13/2024 10:30 AM EDT Laboratory Appointment Lab at [facility] Hematology Oncology [address] [place] [address] 07/13/2024 11:30 AM EDT Office Visit Hematology and Oncology at [place] [address] Salena Alvares, [facility] [place] [address] 07/13/2024 12:45 PM EDT Appointment Hematology and Oncology at [place] [address] documented as of this encounter Visit Diagnoses Not on filedocumented in this encounter Care Teams Lead Java Developer Architect Relationship Specialty Start Date End Date Haylie Steward MD [facility] [address] PCP - General General Internal Medicine 08/04/22 documented as of this encounter
--- OUTSIDE RECORDS SUMMARY | 2024-04-29 01:51 | XMS_ITS | Encounter Summary ---
Author Organization [facility]ly [place] [address] Care Team Providers Care Yard Supervisor Name Role Phone Haylie Steward MD Primary Care Provider + [phone] Encounter Details Date Type Department Care Team (Late st Contact Info) Description 04/07/2024 3:30 PM EST Office [place] [phone] Yoselin Rolle APRN [facility] [place] [address] Malignant neoplasm of lower-inner quadrant of left [...] your doctor or pharmacy? Rarely 02/15/2024 [facility] Utilities Answer Date Recorded In [...] were you homeless or living in a long-term (including now)? No 02/15/2024 [facility] Inpatient [...] this encounter Progress Notes * Yoselin Rolle, CANDY BAR ATTENDANT - 04/07/2024 3:30 PM EST Nataliya Morfin [...] Scheduled View Only Radiation Oncology at [address] [address] 05/02/2024 3:45 PM EST Scheduled View Only Radiation Oncology at [address] [address] 05/03/2024 1:45 PM EST Scheduled View Only Radiation Oncology at [address] [address] 05/03/2024 2:15 PM EST Office Visit Radiation Oncology at [address] [address] Ofe Fonseca MD [facility] [place] [address] 05/05/2024 8:15 AM EST Scheduled View Only Radiation Oncology at [address] [address] 05/06/2024 12:30 PM EST Scheduled View Only Radiation Oncology at [address] [address] 05/09/2024 12:30 PM EST Scheduled View Only Radiation Oncology at [address] [address] 05/10/2024 2:30 PM EST Scheduled View Only Radiation Oncology at [address] [address] 05/10/2024 3:15 PM EST Office Visit Radiation Oncology at [address] [phone] Ofe Fonseca MD [facility] [address] 05/11/2024 2:30 PM EST Scheduled View Only Radiation Oncology at [address] [phone] 05/11/2024 3:15 PM EST Scheduled View Only Radiation Oncology at [address] [phone] Ofe Fonseca MD [facility] [place] [address] 05/12/2024 2:45 PM EST Scheduled View Only Radiation Oncology at [address] [phone] 06/03/2024 3:30 PM EST Appointment Ultrasound at [place] [phone] Mira Hutchison CANDY BAR ATTENDANT [facility] [place] [address] 06/23/2024 4:00 PM EST Appointment Mammography/DXA at [place] [phone] Miryam Feliciano MD [facility] [place] [address] 07/12/2024 8:00 AM EDT Laboratory Appointment Lab [address] [phone] 07/12/2024 9:30 AM EDT Office Visit Nephrology Hypertension at [place] [phone] Sharmin Jean-Baptiste CANDY BAR ATTENDANT [facility] [place] [address] 07/13/2024 10:30 AM EDT Laboratory Appointment Lab at [facility] Hematology Oncology [address] [place], [place] [phone] 07/13/2024 11:30 AM EDT Office Visit Hematology and Oncology at [place] [phone] Salena Alvares APRN [facility] DR [place] [address] 07/13/2024 12:45 PM EDT Appointment Hematology and Oncology at [place] [phone] Scheduled Orders Name Type Priority Associated Diagnoses Orde r Schedule Mammo Diagnostic CAD and Edward Bilateral Imaging Routine Malignant neoplasm of lower-inner quadrant of left breast in female, estrogen receptor positive Expected: 01/18/2025, Expires: 10/11/2025 documented as of this encounter Visit Diagnoses Diagnosis Malignant neoplasm of lower-inner quadrant of left breast in female, estrogen receptor positive documented in this encounter Care Teams Yard Supervisor Relationship Specialty Start Date End [place] [address] PCP - General General Internal Medicine 08/04/22 documented as of this encounter
--- OUTSIDE RECORDS SUMMARY | 2024-04-29 01:51 | XMS_ITS ---
[place] [address] Care Team Providers Care Vending Machine Technician Name Role Phone Haylie Steward MD Primary Care Provider [phone] Active Problems Problem Noted Date Diagnosed Date Malignant neoplasm of lower- inner quadrant of left breast in female, estrogen receptor positive 01/19/2024 Overview (01/19/2024): 01/14/24 bx [place]: ER+/HI+/HER2 pending left breast IDC, low grade, and DCIS, low grade 01/14/24 left breast U/S bx [place]: 1.3 cm, 7:00, 3 FN Bipolar 1 disorder 07/15/2023 [place] intoxication, accide ntal or unintentional, initial encounter [...] 08/10/2013 Current Oncology Plans Goserelin (Zoladex) Injection ([facility] [place], [place], [facility]) 10.8 mg* Plan Start Date:04/15/2024 Plan Provider:Miryam Feliciano MD Linked Problems Malignant neoplasm of lower- inner quadrant of left breast in female, estrogen receptor positive Treatment Medications No medications scheduled. Past Plans No past plan information found. Radiation Treatments * No radiation treatments are documented for this patient in [facility]. Treatments may have been administered in another system.
--- OUTSIDE RECORDS SUMMARY | 2024-04-29 01:51 | XMS_ITS | Encounter Summary ---
Author Organization [facility] [place] [address] Care Team Providers Care Chair Inspector And Leveler Name Role Phone Haylie Steward MD Primary Care Provider [phone] Encounter Details Date Type Department Care Team (Latest Contact Info) Description 04/11/2024 8:30 AM EST Laboratory Appointment Lab [address] [place] [phone] CKD (chronic kidney disease) stage 2, GFR [...] from your doctor or pharmacy? Rarely 02/15/2024 [facility] Utilities Answer Date Recorded In the past 12 months has th e [employer], gas, oil, or water [employer] threatened to shut off services in your [...] EST Scheduled View Only Radiation Oncology at [address] [phone] 05/02/2024 3:45 PM EST Scheduled View Only Radiation Oncology at [address] [phone] 05/03/2024 1:45 PM EST Scheduled View Only Radiation Oncology at [address] [address] 05/03/2024 2:15 PM EST Office Visit Radiation Oncology at [address] [phone] Ofe Fonseca MD [facility] [place] [address] 05/05/2024 8:15 AM EST Scheduled View Only Radiation Oncology at [address] [phone] 05/06/2024 12:30 PM EST Scheduled View Only Radiation Oncology at [address] [phone] 05/09/2024 12:30 PM EST Scheduled View Only Radiation Oncology at [address] [phone] 05/10/2024 2:30 PM EST Scheduled View Only Radiation Oncology at [address] [phone] 05/10/2024 3:15 PM EST Office Visit Radiation Oncology at [address] [phone] Ofe Fonseca MD [facility] [place] [address] 05/11/2024 2:30 PM EST Scheduled View Only Radiation Oncology at [address] [address] 05/11/2024 3:15 PM EST Scheduled View Only Radiation Oncology at [address] [phone] Ofe Fonseca MD [facility] [place] [address] 05/12/2024 2:45 PM EST Scheduled View Only Radiation Oncology at [address] [address] 06/03/2024 3:30 PM EST [place]oint[place] [address] Mira Hutchison SOLE POLISHER [facility] [place] [address] 06/23/2024 4:00 PM EST Appointment Mammography/DXA at [place] [phone] Miryam Feliciano MD [facility] [place] [address] 07/12/2024 8:00 AM EDT Laboratory Appointment Lab [address] [place], [place] [phone] 07/12/2024 9:30 AM EDT Office Visit Nephrology Hypertension at [place] [phone] Sharmin Jean-Baptiste [facility] [place] [address] 07/13/2024 10:30 AM EDT Laboratory Appointment Lab at [facility] Hematology Oncology [address] [place], [place] [phone] 07/13/2024 11:30 AM EDT Office Visit Hematology and Oncology at [place] [phone] Salena Alvares [facility] [place] [address] 07/13/2024 12:45 PM EDT Appointment Hematology [place] [phone] documented as of this encounter [...] EST 04/11/2024 9:07 AM EST Sharmin Jean-Baptiste SOLE POLISHER URINE ORDERABLES Performing Organization Address City/State/[facility] Co de Phone Number [facility] [place] [address] * Urinalysis Dipstick (04/11/2024 9:07 AM EST) [...] 10:15 AM [facility] Specific [place] Urine Automated 1.006 1.005 - 1.030 04/11/2024 10:15 AM [facility] Appearance, Urine Dipstick Clear Clear 04/11/2024 10:15 AM [facility] Color, Urine Dipstick Yellow Yellow, Dark Yellow 04/11/2024 10:15 AM [facility] CULTURE ADDED? 04/11/2024 10:15 AM [facility] Urine Non Blood Collection / Unknown 04/11/2024 9:07 AM EST 04/11/2024 9:07 AM EST Sharmin Jean-Baptiste SOLE POLISHER URINE ORDERABLES [facility] [place] [address] * Protein/Creatinine Ratio, urine (04/11/2024 9:07 AM [...] AM EST 04/11/2024 9:07 AM EST Sharmin L Estiven SOLE POLISHER URINE ORDERABLES [facility] [place] [address] * Albumin Level (04/11/2024 9:05 AM EST) Albumin 4.1 3.2 - 5.2 g/dL 04/11/2024 9:59 AM [facility] Blood VENOUS BLOOD SPECIMEN / Unknown Venipuncture / Unknown 04/11/2024 9:05 AM EST 04/11/2024 9:05 AM EST Sharmin Jean-Baptiste SOLE POLISHER CHEMISTRY ORDERAB LES [facility] [place] [address] * (ABNORMAL) Basic Metabolic Panel Non-fasting (04/11/2024 [...] Foundation Fasting Status Yes 04/11/2024 9:59 AM [facility] Blood VENOUS BLOOD SPECIMEN / Unknown Venipuncture / Unknown 04/11/2024 9:05 AM EST 04/11/2024 9:05 AM EST Sharmin Jean-Baptiste APRN CHEMISTRY ORDERAB LES [facility] [place] [address] * (ABNORMAL) CBC (with Diff) (04/11/2024 9:05 [...] 04/11/2024 9:05 AM EST Sharmin L Estiven SOLE POLISHER HEMATOLOGY ORDERA BLES [facility] [place] [address] * Ferritin (04/11/2024 9:05 AM EST) Ferritin 37 6 - 175 ng/ml 04/11/2024 10:05 AM [facility] Blood VENOUS BLOOD SPECIMEN / Unknown Venipuncture / Unknown 04/11/2024 9:05 AM EST 04/11/2024 9:05 AM EST Sharmin L Estiven SOLE POLISHER CHEMISTRY ORDERAB LES Performing Organization Address City/[facility]/ZIP Co de Phone Number [facility] [place] [address] * (ABNORMAL) Iron and TIBC (04/11/2024 9:05 AM EST) Iron 73 30 - 150 mcg/dL 04/11/2024 11:11 AM EST [facility] TIBC 381 250 - 450 mcg/dL 04/11/2024 11:11 AM EST [facility] Iron Saturation 19(L) 20 - 50 % 11:11 AM EST [facility] Blood VENOUS BLOOD SPECIMEN / Unknown Venipuncture / Unknown 04/11/2024 9:05 AM EST 04/11/2024 9:05 AM EST Sharmin L Estiven SOLE POLISHER CHEMISTRY ORDERAB LES [facility] [place] [address] * Phosphorus (04/11/2024 9:05 AM EST) Phosphorus 2.8 2.5 - 4.5 mg/dL 04/11/2024 9:59 AM EST [facility] Blood VENOUS BLOOD SPECIMEN / Unknown Venipuncture / Unknown 04/11/2024 9:05 AM EST 04/11/2024 9:05 AM EST Sharmin L Estiven SOLE POLISHER CHEMISTRY ORDERAB LES Performing Organization Address City/[facility]/ZIP Co de Phone Number [facility] [place] [address] * (ABNORMAL) PTH (04/11/2024 9:05 AM EST) Parathyroid Hormone 92(H) 15 - 65 pg/mL 04/11/2024 10:03 AM EST [facility] Blood VENOUS BLOOD SPECIMEN / Unknown Venipuncture / Unknown 04/11/2024 9:05 AM EST 04/11/2024 9:05 AM EST Sharmin L Estiven SOLE POLISHER CHEMISTRY ORDERAB LES Performing Organization Address City/[facility]/ZIP Co de Phone Number [facility] [place] [address] * Vitamin D, 25-Hydroxy (04/11/2024 9:05 AM EST) Vitamin D Total 25 OH 33 21 - 100 ng/ml 04/11/2024 11:53 AM EST [facility] Vitamin D Total 25 OH Interp Sufficient 04/11/2024 11:53 AM EST [facility] Blood VENOUS BLOOD SPECIMEN / Unknown Venipuncture / Unknown 04/11/2024 9:05 AM EST 04/11/2024 9:05 AM EST Sharmin Jean-Baptiste SOLE POLISHER CHEMISTRY ORDERAB LES [facility] [place] [address] documented in this encounter Visit Diagnoses Diagnosis CKD (chronic kidney disease) stage 2, GFR 60-89 ml/min Chronic kidney disease, Stage II (mild) Vitamin D deficiency Unspecified vitamin D deficiency documented in this encounter Care Teams Chair Inspector And Leveler Relationship Specialty Start Date End Date Haylie Steward MD [facility] [address] PCP - General General Internal Medicine 08/04/22 documented as of this encounter
--- OUTSIDE RECORDS SUMMARY | 2024-04-29 01:51 | XMS_ITS | Encounter Summary ---
Author Organization [facility] Address [facility] [place] [address] Care Team Providers Care Civil Attorney Name Role Phone Haylie Steward MD Primary Care Provider + [phone] Reason for Visit * Reason Comments Advice Only * Consultation (Routine) - Closed Specialty Diagnoses / Procedures Referred By Contac t Referred To Contact Hematology and Oncology Diagnoses Breast cancer s/p L breast partial mastectomy on 02.05.24 Procedures NEW PATIENT Hailey Dawson MD [facility] [place] [address] Miryam Feliciano MD [facility] [place] [address] Referral ID Status Reason Start Date Expiration Date Visits Re quested Visits Authorized [id number] Closed 03/02/2024 03/02/2025 1 1 Encounter Details Date Type Department Care Team (Late st Contact Info) Description 04/07/2024 2:00 PM EST Office Visit Hematology [place] [address] Miryam Feliciano MD [facility] [place] [address] Malignant neoplasm of lower-inner quadrant of left [...] doctor or pharmacy? Rarely 02/15/2024 [facility] Utilities Answer Date Recorded In [...] any time in the past 12 m [facility], were you homeless or living [...] from the original note were not included. [facility] Patient Name: Nataliya Morfin is a 49 y.o. female from [place], [place] (45 min away). : 1975 Visit Date: 04/07/2024 PCP: Haylie Steward MD Breast surgical oncology: Hailey Dawson MD Radiation oncology: Ofe Fonseca MD Referring provider: Hailey Dawson MD [facility] [place] [address] Reason for visit: Consultation was requested by Dr. Daswon for new diagnosis of breast cancer. Summary: 49 y.o. 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 01/14/2024- diagnostic mammogram and ultrasound ([facility]) Diagnostic mammogram: 15 mm spiculated mass [...] cribiform pattern wo comedonecrosis ER+ >90%, moderate. WA+ >90%, strong. HER2- by FISH with ratio [...] carcinoma of the LEFT breast, ER+ / WA+ / HER2-, Oncotype 12, originally diagnosed 01/14/2024, [...] remain up-to-date with cancer screenings including colorectal, BUSINESS DEVELOPMENT CONSULTANT and skin checks. 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, rare, uncertain significance -Encouraged routine cancer screenings Recommendations/Plan: Schedule OFS, check estradiol/FSH in 2-3 weeks (will try to arrange when she is at [facility]) Proceed with radiation as planned Start letrozole 2 weeks after radiation is complete; assuming adequate ovarian suppression - Rx sent Follow-up: RTC in 12 weeks with labs, MD/COMPLIANCE ENGINEER PRODUCTS, goserelin injection #Medications: Reviewed #Contraception: Not sexually [...] Yes - father and two grandfathers Ashkenazi Christianity heritage None Personal history of known genetic mutation None Social: EtOH - none Smoking - never Lives with parents. 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 Enjoys art, [...] Placement Multiple Left 02/01/2024 Martha Martino MD [facility] RAD MAMMOGRAPHY MAMMO US BIOPSY LEFT Left 01/14/2024 Mammo Us Biopsy Left 01/14/2024 MAMMO US BIOPSY MULTIPLE LEFT Left 02/01/2024 Mammo US Biopsy Multiple Left 02/01/2024 Martha Martino MD [facility] RAD MAMMOGRAPHY PRO BX/REMV, LYMPH NODE, DEEP AXILL Left 02/05/2024 BIOPSY OR EXCISION OF LYMPH NODE(S), OPEN, DEEP AXILLARY NODE(S) (WRVU 6.43) performed by Hailey Dawson MD at [facility] OSC PRO COLONOSCOPY, BIOPSY N/A 06/11/2023 COLONOSCOPY FLEXIBLE, WITH BX (WRVU 3.56) performed by Jack Page MD at [facility] ENDOSCOPY PRO INTRAOP SENTINEL LYMPH ID W/DYE INJECTION Left 02/05/2024 INTRAOPERATIVE ID (MAPPING) SENTINEL LYMPH NODE,INCLUDES INJECTION (WRVU 2.5) performed by Hailey Dawson MD at [facility] OSC PRO MASTECTOMY PARTIAL Left 02/05/2024 MASTECTOMY PARTIAL (WRVU 10.13) performed by Hailey Dawson MD at [facility] OSC PRO MASTECTOMY PARTIAL Left 02/29/2024 MASTECTOMY PARTIAL (WRVU 10.13) performed by Hailey Dawson MD at [facility] OSC PRO UPPER GI ENDOSCOPY, BIOPSY N/A 06/11/2023 EGD WITH BIOPSY (WRVU 2.39) performed by Jack Page MD at [facility] ENDOSCOPY TOE SURGERY Family History: Family History [...] Units Case Report Surgical Pathology Report Case: [id number] Authorizing Provider: Mario Lee MD Collected: 01/14/2024 [...] pattern without comedonecrosis. - Studies for ER, WA, and HER2 have been ordered; results will be issued in an addendum. at 1120 Addendum 2 SPECIAL TEST PERFORMED: Test: Oncotype DX [facility] Case: [id number] Performing Lab: [facility] Performing Lab Case: [id number] Reported by Owen Barbour M.D. Date reported: 02/24/2024 For the full text of the [facility] report(s), please refer to the Chart Review Media tab in the electronic health record (eDH). Addendum electronically signed by Tati Wilkins DO on 03/01/2024 at 1332 Addendum Immunohistochemistry Studies (A1) Estrogen Receptor (ER) immunoreactivity: Positive Cancer cells with immunostaining: >90% Stain intensity: Moderate Progesterone Receptor (WA) immunoreactivity: Positive Cancer cells with immunostaining: >90% Stain intensity: Strong HER2 FISH: separate report to follow Component Indication for Study Specimen Tissue Case/Block ID [id number] A1-6 HER2 FISH Final Report Method Fluorescence [...] Examined (sentinel and non-sentinel) 2 Number of Holly Nodes Examined 2 pTNM CLASSIFICATION (AJCC 8th [...] tissue lesion 1 Clin info-Breast cancer C. Holly Lymph Node, Left Holly Node *Other - as specified in Clinical Information Left Holly Node Gross Description A. Breast, Left, left [...] #2 A4-A5: Bisected slice #3 to include admitting representative mass in block A5 A6-A7: Bisected slice #4 to include admitting representative mass and the site containing the [...] #3 B5-B6: Bisected slice #4 to include admitting representative mass B7-B8: Bisected slice #5 to include admitting representative mass and the site containing the biopsy clip B9: Perpendicular sections of the lateral margin C. Holly Lymph Node, Left Holly Node. C - Labeled/Fixative: Holly lymph node, left, fresh. Quantity/Size: Two, 0.5 x 0.4 x 0.4 cm and 0.7 x 0.4 x 0.3 cm. Tissue Description: Adipose tissue with two, up to 0.7 x 0.4 x 0.3 cm. Sections/Processing: Entirely submitted in 2 cassettes as follows: C1: Smaller bisected candidate lymph node C2: Larger bisected candidate lymph node CAK Result Note Routine Resulting Agency [facility] Specimen Collected: 02/05/24 14:03 Last Resulted: 02/18/24 11:55 Status: Final result Visible to patient: Yes (not seen) Next appt: Today at 02:00 PM in Hematology and Oncology (Miryam Feliciano MD) 0 Result Notes Component Ref Range & Units Case Report Surgical Pathology Report Case: [id number] Authorizing Provider: Hailey Dawosn MD Collected: 02/29/2024 9636 [facility] Received: 02/29/2024 1538 [facility] Pathologist: Sil Maguire MD Specimens: A) [...] fragmented tissue Result Note Routine Resulting Agency [facility] Specimen Collected: 02/29/24 15:16 Last Resulted: 03/15/24 16:06 Breast Imaging: Screening mammogram: Details Reading Physician Reading Date Result Priority Mario Lee MD [phone] 2753 01/14/2024 Routine Narrative & Impression EXAMINATION: [...] who have questions please contact the health small animal caretaker that requested your imaging first. [address] [place] [id number] Component 2 mo ago PT CLASS O ADMITDTTM [id number] PT INFO [id number]^Steward^Haylie EXAM [facility]C [facility]MG Mammo Digital Screening Bilateral.^RIS WORKSTATION ID [id number] Resulting Agency [facility] Exam Ended: 01/14/24 08:39 Last Resulted: 01/14/24 11:24 Details Reading Physician Reading Date Result Priority Mario Lee MD [phone] 2753 01/14/2024 Routine Narrative & Impression EXAMINATION: [...] who have questions please contact the health small animal caretaker that requested your imaging first. Component 2 mo ago PT CLASS O ADMITDTTM [id number] PT INFO [phone]^Jesus^Mario EXAM DESC [facility]^US Breast Limited Left.^RIS WORKSTATION ID [id number] Resulting Agency [facility] Exam Ended: 01/14/24 13:23 Last Resulted: 01/14/24 14:17 Diagnostic mammogram and U/S: MRI breast: Details Reading Physician Reading Date Result Priority Malgorzata De Santiago MD [phone] 2533 01/21/2024 Narrative & Impression EXAMINATION: MRI [...] contrast enhancement curve analysis was performed, using [employer] Software software. COMPARISON STUDIES: Compared and/or correlated with [...] who have questions please contact the health small animal caretaker that requested your imaging first. Electronically signed by: Malgorzata De Santiago [facility] ([phone]), at 01/21/2024 3:42 PM Component 2 mo ago WORKSTATION ID [id number] Resulting Agency [facility] Exam Ended: 01/21/24 11:05 Last Resulted: [...] who have questions please contact the health small animal caretaker that requested your imaging first. Electronically signed by: Aleida Bolanos MD, [facility] ([phone]), at 01/25/2024 2:52 PM Component 2 mo ago WORKSTATION ID [id number] Resulting Agency Rad Exam Ended: 01/25/24 13:45 Last Resulted: 01/25/24 14:52 Annual mammogram: Ordered per surgery Imaging: DEXA scan: Ordered and pending Total time spent: 100 minutes with > 50% spend in discussion of above, [id number] time and coordination of care with the patient today Perla Feliciano MD Medical Oncology [facility] Eating Disorder SpecialistPickle Water Pump Operator, [facility] Office Cancer.[facility] documented in this encounter Plan of Treatment Upcoming Encounters Date Type Department Care Team (Latest Contact Info) Description 04/29/2024 3:00 PM EST Scheduled View Only Radiation Oncology at [address] [address] 05/02/2024 3:45 PM EST Scheduled View Only Radiation Oncology at [address] [address] 05/03/2024 1:45 PM EST Scheduled View Only Radiation Oncology at [address] [address] 05/03/2024 2:15 PM EST Office Visit Radiation Oncology at [address] [address] Ofe Fonseca MD [facility] [place] [address] 05/05/2024 8:15 AM EST Scheduled View Only Radiation Oncology at [address] [address] 05/06/2024 12:30 PM EST Scheduled View Only Radiation Oncology at [address] [address] 05/09/2024 12:30 PM EST Scheduled View Only Radiation Oncology at [address] [address] 05/10/2024 2:30 PM EST Scheduled View Only Radiation Oncology at [address] [address] 05/10/2024 3:15 PM EST Office Visit Radiation Oncology at [address] [address] Ofe Fonseca MD [facility] [place] [address] 05/11/2024 2:30 PM EST Scheduled View Only Radiation Oncology at [address] [address] 05/11/2024 3:15 PM EST Scheduled View Only Radiation Oncology at [address] [address] Ofe Fonseca MD [facility] [place] [address] 05/12/2024 2:45 PM EST Scheduled View Only Radiation Oncology at [address] [address] 06/03/2024 3:30 PM EST [place]oint[place] [address] Mira Hutchison APRN [facility] [place] [address] 06/23/2024 4:00 PM EST Appointment Mammography/[place] [address] Miryam Feliciano MD [facility] [place] [address] 07/12/2024 8:00 AM EDT Laboratory Appointment Lab [address] [address] 07/12/2024 9:30 AM EDT Office Visit Neph[place] [address] Sharmin Jean-Baptiste, [facility] [place] [address] 07/13/2024 10:30 AM EDT Laboratory Appointment Lab [place] [facility] [place] [address] [place] [phone] 07/13/2024 11:30 AM EDT Office Visit Hematology [place] [address] Salena Alvares, [facility] [place] [address] 07/13/2024 12:45 PM EDT Appointment Hematology [place] [address] Scheduled Orders Name Type Priority Associated Diagnoses [...] medications documented in this encounter Care Teams Civil Attorney Relationship Specialty Start Date End [place] [address] PCP - General General Internal Medicine 08/04/22 documented as of this encounter
--- OUTSIDE RECORDS SUMMARY | 2024-04-29 01:51 | XMS_ITS | Encounter Summary ---
[place] [address] Care Team Providers Care Certified Lactation Counselor Name Role Phone Haylie Steward MD Primary Care Provider + [phone] Reason for Visit * Reason Onset Date Comments Medication Management 04/14/2024 Misc quest ions about AI and Goserlin Encounter Details Date Type Department Care Team (Late st Contact Info) Description 04/14/2024 Telephone Hematology [place] [phone] Haylie Pinzon, semiconductor wafers marker Management (Misc questions about AI and Goserlin) [...] your doctor or pharmacy? Rarely 02/15/2024 [facility] Utilities Answer Date Recorded In [...] RN - 04/14/2024 10:53 AM EST Summary: [facility] [place]: Kimberlee Kennedy RN Sent: 04/13/2024 [...] to Nataliya. Reviewed side effect profile from [employer]. Reviewed common side effects with endocrine therapy. Sent UpToDate patient information on Goserelin via [employer] message. All questions answered to patient's apparent satisfaction. documented in this encounter Plan of Treatment Upcoming Encounters Date Type Department Care Team (Latest Contact Info) Description 04/29/2024 3:00 PM EST Scheduled View Only Radiation Oncology at [address] [address] 05/02/2024 3:45 PM EST Scheduled View Only Radiation Oncology at [address] [address] 05/03/2024 1:45 PM EST Scheduled View Only Radiation Oncology at [address] [address] 05/03/2024 2:15 PM EST Office Visit Radiation Oncology at [address] [address] Ofe Fonseca MD [facility] [place] [address] 05/05/2024 8:15 AM EST Scheduled View Only Radiation Oncology at [address] [address] 05/06/2024 12:30 PM EST Scheduled View Only Radiation Oncology at [address] [address] 05/09/2024 12:30 PM EST Scheduled View Only Radiation Oncology at [address] [address] 05/10/2024 2:30 PM EST Scheduled View Only Radiation Oncology at [address] [address] 05/10/2024 3:15 PM EST Office Visit Radiation Oncology at [address] [address] Ofe Fonseca MD [facility] [place] [address] 05/11/2024 2:30 PM EST Scheduled View Only Radiation Oncology at [address] [address] 05/11/2024 3:15 PM EST Scheduled View Only Radiation Oncology at [address] [address] Ofe Fonseca MD [facility] [place] [address] 05/12/2024 2:45 PM EST Scheduled View Only Radiation Oncology at [address] [address] 06/03/2024 3:30 PM EST Appointment Ultrasound at [place] [phone] Mira Hutchison APRN [facility] [place] [address] 06/23/2024 4:00 PM EST Appointment Mammography/DXA at [place] [phone] Miryam Feliciano MD [facility] [place] [address] 07/12/2024 8:00 AM EDT Laboratory Appointment Lab [place] [address] 07/12/2024 9:30 AM EDT Office Visit Nephrology Hypertension at [place] [phone] Sharmin Jean-Baptiste, [facility] [place] [address] 07/13/2024 10:30 AM EDT Laboratory Appointment Lab at [facility] Hematology Oncology [address] [place] [address] 07/13/2024 11:30 AM EDT Office Visit Hematology and Oncology at [place] [phone] Salena Alvares [facility] [place] [address] 07/13/2024 12:45 PM EDT Appointment Hematology [place] [address] documented as of this encounter Visit Diagnoses Not on filedocumented in this encounter Care Teams Certified Lactation Counselor Relationship Specialty Start Date End [place] [address] PCP - General General Internal Medicine 08/04/22 documented as of this encounter
--- OUTSIDE RECORDS SUMMARY | 2024-04-29 01:51 | XMS_ITS | Encounter Summary ---
Author Organization [facility] [place] [address] Care Team Providers Care Dry Cleaning Teacher Name Role Phone Haylie Steward MD Primary Care Provider + [phone] Encounter Details Date Type Department Care Team (Latest Contact Info) Description 04/25/2024 Travel Social History Tobacco Use Types Packs/Day [...] your doctor or pharmacy? Rarely 02/15/2024 [facility] Utilities Answer Date Recorded [...] were you homeless or living in a residential (including now)? No 02/15/2024 [facility] IP[facility] Inpatient [...] Scheduled View Only Radiation Oncology at [address] [address] 05/02/2024 3:45 PM EST Scheduled View Only Radiation Oncology at [address] [address] 05/03/2024 1:45 PM EST Scheduled View Only Radiation Oncology at [address] [address] 05/03/2024 2:15 PM EST Office Visit Radiation Oncology at [address] [address] Ofe Fonseca MD [facility] [place] [address] 05/05/2024 8:15 AM EST Scheduled View Only Radiation Oncology at [address] [address] 05/06/2024 12:30 PM EST Scheduled View Only Radiation Oncology at [address] [address] 05/09/2024 12:30 PM EST Scheduled View Only Radiation Oncology at [address] [address] 05/10/2024 2:30 PM EST Scheduled View Only Radiation Oncology at [address] [address] 05/10/2024 3:15 PM EST Office Visit Radiation Oncology at [address] [address] Ofe Fonseca MD [facility] [place] [address] 05/11/2024 2:30 PM EST Scheduled View Only Radiation Oncology at [address] [address] 05/11/2024 3:15 PM EST Scheduled View Only Radiation Oncology at [address] [address] Ofe Fonseca MD [facility] [address] 05/12/2024 2:45 PM EST Scheduled View Only Radiation Oncology at [address] [address] 06/03/2024 3:30 PM EST [place] [address] Mira Hutchison APRN [facility] [place] [address] 06/23/2024 4:00 PM EST Appointment Mammography/DXA at [place] [address] Miryam Feliciano MD [facility] [place] [address] 07/12/2024 8:00 AM EDT Laboratory Appointment Lab [place] [address] 07/12/2024 9:30 AM EDT Office Visit Nephrology Hypertension at [place] [address] Sharmin Jean-Baptiste, [facility] [place] [address] 07/13/2024 10:30 AM EDT Laboratory Appointment Lab at [facility] [place] Hematology Oncology [address] [place] [address] 07/13/2024 11:30 AM EDT Office Visit Hematology and Oncology at [place] [address] Salena Alvares, [facility] [place] [address] 07/13/2024 12:45 PM EDT Appointment Hematology and Oncology at [place] [address] documented as of this encounter Visit Diagnoses Not on filedocumented in this encounter Care Teams Dry Cleaning Teacher Relationship Specialty Start Date End Date Haylie Steward MD [facility] [place] [address] PCP - General General Internal Medicine 08/04/22 documented as of this encounter
--- OUTSIDE RECORDS SUMMARY | 2024-04-29 01:51 | XMS_ITS | Encounter Summary ---
Author Organization [facility] [place] [address] Care Team Providers Care Housecalls Nurse Name Role Phone Haylie Steward MD Primary Care Provider + [phone] Encounter Details Date Type Department Care Team [...] your doctor or pharmacy? Rarely 02/15/2024 [facility] Utilities Answer Date Recorded In [...] EST Scheduled View Only Radiation Oncology at [address] [address] 05/02/2024 3:45 PM EST Scheduled View Only Radiation Oncology at [address] [address] 05/03/2024 1:45 PM EST Scheduled View Only Radiation Oncology at [address] [address] 05/03/2024 2:15 PM EST Office Visit Radiation Oncology at [address] [address] Ofe Fonseca MD [facility] [place] [address] 05/05/2024 8:15 AM EST Scheduled View Only Radiation Oncology at [address] [address] 05/06/2024 12:30 PM EST Scheduled View Only Radiation Oncology at [address] [address] 05/09/2024 12:30 PM EST Scheduled View Only Radiation Oncology at [address] [address] 05/10/2024 2:30 PM EST Scheduled View Only Radiation Oncology at [address] [address] 05/10/2024 3:15 PM EST Office Visit Radiation Oncology at [address] [address] Ofe Fonseca MD [facility] [place] [address] 05/11/2024 2:30 PM EST Scheduled View Only Radiation Oncology at [address] [address] 05/11/2024 3:15 PM EST Scheduled View Only Radiation Oncology at [address] [address] Ofe Fonseca MD [facility] [place] [address] 05/12/2024 2:45 PM EST Scheduled View Only Radiation Oncology at [address] [address] 06/03/2024 3:30 PM EST Appointment [place] [address] Mira Hutchison APRN [facility] [address] 06/23/2024 4:00 PM EST Appointment Mammography/DXA at [place] [address] Miryam Felicinao MD [facility] [place] [address] 07/12/2024 8:00 AM EDT Laboratory Appointment Lab [place] [address] 07/12/2024 9:30 AM EDT Office Visit Nephrology Hypertension at [place] [address] Sharmin Jean-Baptiste, [facility] [address] 07/13/2024 10:30 AM EDT Laboratory Appointment Lab at [facility] Hematology Oncology [address] [place] [address] 07/13/2024 11:30 AM EDT Office Visit Hematology and Oncology at [place] [address] Salena Alvares, [facility] [place] [address] 07/13/2024 12:45 PM EDT Appointment Hematology and Oncology at [place] [address] documented as of this encounter Visit Diagnoses Not on filedocumented in this encounter Care Teams Housecalls Nurse Relationship Specialty Start Date End Date Haylie Steward MD [facility] [address] PCP - General General Internal Medicine 08/04/22 documented as of this encounter
--- OUTSIDE RECORDS SUMMARY | 2024-04-29 01:51 | XMS_ITS | Encounter Summary ---
Author Organization [facility] [place] [address] Care Team Providers Care Bet Taker Name Role Phone Haylie Steward MD Primary Care Provider + [phone] Encounter Details Date Type Department Care Team [...] doctor or pharmacy? Rarely 02/15/2024 [facility] Utilities Answer Date Recorded In the past [...] Scheduled View Only Radiation Oncology at [address] [address] 05/02/2024 3:45 PM EST Scheduled View Only Radiation Oncology at [address] [address] 05/03/2024 1:45 PM EST Scheduled View Only Radiation Oncology at [address] [address] 05/03/2024 2:15 PM EST Office Visit Radiation Oncology at [address] [address] Ofe Fonseca MD [facility] [place] [address] 05/05/2024 8:15 AM EST Scheduled View Only Radiation Oncology at [address] [address] 05/06/2024 12:30 PM EST Scheduled View Only Radiation Oncology at [address] [address] 05/09/2024 12:30 PM EST Scheduled View Only Radiation Oncology at [address] [address] 05/10/2024 2:30 PM EST Scheduled View Only Radiation Oncology at [address] [address] 05/10/2024 3:15 PM EST Office Visit Radiation Oncology at [address] [address] Ofe Fonseca MD [facility] [place] [address] 05/11/2024 2:30 PM EST Scheduled View Only Radiation Oncology at [address] [address] 05/11/2024 3:15 PM EST Scheduled View Only Radiation Oncology at [address] [address] Ofe Fonseca MD [facility] [place] [address] 05/12/2024 2:45 PM EST Scheduled View Only Radiation Oncology at [address] [address] 06/03/2024 3:30 PM [place] [address] Mira Hutchison APRN [facility] [place] [address] 06/23/2024 4:00 PM EST Appointment Mammography/DXA at [place] [address] Miryam Feliciano MD [facility] [place] [address] 07/12/2024 8:00 AM EDT Laboratory Appointment Lab [address] [address] 07/12/2024 9:30 AM EDT Office Visit Nephrology Hypertension at [place] [address] Sharmin Jean-Baptiste, [facility] [place] [place] [address] 07/13/2024 10:30 AM EDT Laboratory App[place]ment [place] [facility] [address] [place] [address] 07/13/2024 11:30 AM EDT Office Visit Hematology and Oncology at [place] [address] Salena Alvares, [facility] [place] [address] 07/13/2024 12:45 PM EDT Appointment Hematology and Oncology at [place] [address] documented as of this encounter Visit Diagnoses Not on filedocumented in this encounter Care Teams Bet Taker Relationship Specialty Start Date End Date Haylie Steward MD [facility] [address] PCP - General General Internal Medicine 08/04/22 documented as of this encounter
--- OUTSIDE RECORDS SUMMARY | 2024-04-29 01:51 | XMS_ITS | Encounter Summary ---
Author Organization [facility] [place] [address] Care Team Providers Care Author'S Agent Name Role Phone Haylie Steward MD Primary Care Provider [phone] Encounter Details Date Type Department Care Team (Late st Contact Info) Description 04/22/2024 4:30 PM EST Ancillary Procedure Radiology Library at [facility] [place] [phone] Haylie Steward [place] [address] [place] [address] Social History Tobacco Use Types Packs/Day Years [...] doctor or pharmacy? Rarely 02/15/2024 [facility] Utilities Answer Date Recorded In the past 12 months has [employer], gas, oil, or water company threatened [...] time in the past 12 m [facility], were you homeless or living [...] Scheduled View Only Radiation Oncology at [address] [address] 05/02/2024 3:45 PM EST Scheduled View Only Radiation Oncology at [address] [address] 05/03/2024 1:45 PM EST Scheduled View Only Radiation Oncology at [address] [address] 05/03/2024 2:15 PM EST Office Visit Radiation Oncology at [address] [address] Ofe Fonseca MD [facility] [place] [address] 05/05/2024 8:15 AM EST Scheduled View Only Radiation Oncology at [address] [address] 05/06/2024 12:30 PM EST Scheduled View Only Radiation Oncology at [address] [address] 05/09/2024 12:30 PM EST Scheduled View Only Radiation Oncology at [address] [address] 05/10/2024 2:30 PM EST Scheduled View Only Radiation Oncology at [address] [address] 05/10/2024 3:15 PM EST Office Visit Radiation Oncology at [address] [address] Ofe Fonseca MD [facility] [place] [address] 05/11/2024 2:30 PM EST Scheduled View Only Radiation Oncology at [address] [address] 05/11/2024 3:15 PM EST Scheduled View Only Radiation Oncology at [address] [address] Ofe Fonseca MD [facility] [place] [address] 05/12/2024 2:45 PM EST Scheduled View Only Radiation Oncology at [address] [address] 06/03/2024 3:30 PM EST Appointment [place] [phone] Mira Hutchison [facility] [place] [address] 06/23/2024 4:00 PM EST Appointment Mammography/DXA at [place] [phone] Miryam Feliciano MD [facility] [place] [address] 07/12/2024 8:00 AM EDT Laboratory Appointment Lab [address] [place] [address] 07/12/2024 9:30 AM EDT Office Visit Neph[place] [address] Sharmin Jean-Baptiste [facility] [place] [address] 07/13/2024 10:30 AM EDT Laboratory Appointment Lab at [facility] [place] Hematology Oncology [address] [place], [place] [phone] 07/13/2024 11:30 AM EDT Office Visit Hematology and Oncology at [place] [phone] Salena Alvares [facility] [place] [place] [address] 07/13/2024 12:45 PM EDT Appointment Hematology and Oncology at [place] [phone] documented as of this encounter Procedures Procedure Name Priority Date/Time Associated Diagnosis Comments FILM LIBRARY STORAGE ONLY ULTRASOUND STUDY Routine 04/22/2024 4:29 PM EST documented in this encounter Results * Film Library- Storage Only Ultrasound Study (04/22/2024 4:29 PM EST) Narrative RAD - 04/22/2024 4:29 PM EST This exam is auto-finalizing. It's purpose is for storage only. Haylie Steward MD IMG FILM LIBRARY ORD ERABLES [place] documented in this encounter Visit Diagnoses Not on filedocumented in this encounter Care Teams Author'S Agent Relationship Specialty Start Date End Date Hay[place] [address] [place] [address] PCP - General General Internal Medicine 08/04/22 documented as of this encounter
--- OUTSIDE RECORDS SUMMARY | 2024-04-29 01:51 | XMS_ITS | Encounter Summary ---
Author Organization [facility] [place] [address] Care Team Providers Care Correctional Medicine Physician Name Role Phone Haylie Steward MD Primary Care Provider + [phone] Encounter Details Date Type Department Care Team (Late st Contact Info) Description 04/15/2024 Orders Only Hematology [place] [phone] Salena Alvares APRN [facility] [place] [address] Social History Tobacco Use Types Packs/Day Years [...] your doctor or pharmacy? Rarely 02/15/2024 [facility] Utilities Answer Date Recorded In the past 12 months has [employer], gas, oil, or water company threatened [...] any time in the past 12 m [facility], were you homeless or living in a [...] Scheduled View Only Radiation Oncology at [address] [address] 05/02/2024 3:45 PM EST Scheduled View Only Radiation Oncology at [address] [address] 05/03/2024 1:45 PM EST Scheduled View Only Radiation Oncology at [address] [address] 05/03/2024 2:15 PM EST Office Visit Radiation Oncology at [address] [address] Ofe Fonseca MD [facility] [place] [address] 05/05/2024 8:15 AM EST Scheduled View Only Radiation Oncology at [address] [address] 05/06/2024 12:30 PM EST Scheduled View Only Radiation Oncology at [address] [address] 05/09/2024 12:30 PM EST Scheduled View Only Radiation Oncology at [address] [address] 05/10/2024 2:30 PM EST Scheduled View Only Radiation Oncology at [address] [address] 05/10/2024 3:15 PM EST Office Visit Radiation Oncology at [address] [address] Ofe Fonseca MD [facility] [place] [address] 05/11/2024 2:30 PM EST Scheduled View Only Radiation Oncology at [address] [address] 05/11/2024 3:15 PM EST Scheduled View Only Radiation Oncology at [address] [address] Ofe Fonseca MD [facility] RAD[place] [address] 05/12/2024 2:45 PM EST Scheduled View Only Radiation Oncology at [address] [address] 06/03/2024 3:30 PM EST [place] [phone] Mira Hutchison [facility] [address] 06/23/2024 4:00 PM EST Appointment Mammography/DXA at [place] [address] Miryam Feliciano MD [facility] [place] [address] 07/12/2024 8:00 AM EDT Laboratory Appointment Lab [address] [place] [address] 07/12/2024 9:30 AM EDT Office Visit Nephrology Hypertension at [place] [address] Sharmin Jean-Baptiste [facility] [place] [address] 07/13/2024 10:30 AM EDT Laboratory Appointment [place] [facility] [place] On[place] [address] [place] [address] 07/13/2024 11:30 AM EDT Office Visit Hematology and Oncology at [place] [phone] Salena Alvares [facility] [place] [address] 07/13/2024 12:45 PM EDT Appointment Hematology [place] [address] documented as of this encounter Visit Diagnoses Not on filedocumented in this encounter Care Teams Correctional Medicine Physician Relationship Specialty Start Date [place] [address] PCP - General General Internal Medicine 08/04/22 documented as of this encounter
--- OUTSIDE RECORDS SUMMARY | 2024-04-29 01:51 | XMS_ITS | Encounter Summary ---
Author Organization [facility] Address [facility] [place] [address] Care Team Providers Care Aix Architect Name Role Phone Haylie Steward MD Primary Care Provider + [phone] Reason for Visit * Reason Comments On Treatment Visit Encounter Details Date Type Department Care Team (Late st Contact Info) Description 04/12/2024 12:15 PM EST Office Visit Radiation Oncology at [address] [phone] Ofe Fonseca MD [facility] [place] [address] Malignant neoplasm of lower-inner quadrant of left [...] from your doctor or pharmacy? Rarely 02/15/2024 [facility] Utilities Answer Date Recorded In the past 12 months has th e [employer], gas, oil, or water company threatened to [...] any time in the past [address] [facility], were you homeless or living in a [...] DIAGNOSIS: Breast ca, L, IDC, gr 1, ER+TX+, Her2-, DCIS, s/p lumpectomy & SNB followed [...] For details, see electronic film record in [employer]. Changes in Medical Condition: None. Pain?: [...] Nataliya agrees and she asked that her industrial locomotive operator (Mary Jean-Baptiste APRN) be informed about the kidney findings. documented in this encounter Plan of Treatment Upcoming Encounters Date Type Department Care Team (Latest Contact Info) Description 04/29/2024 3:00 PM EST Scheduled View Only Radiation Oncology at [address] [address] 05/02/2024 3:45 PM EST Scheduled View Only Radiation Oncology at [address] [address] 05/03/2024 1:45 PM EST Scheduled View Only Radiation Oncology at [address] [address] 05/03/2024 2:15 PM EST Office Visit Radiation Oncology at [address] [address] Ofe Fonseca MD [facility] [place] [address] 05/05/2024 8:15 AM EST Scheduled View Only Radiation Oncology at [address] [address] 05/06/2024 12:30 PM EST Scheduled View Only Radiation Oncology at [address] [address] 05/09/2024 12:30 PM EST Scheduled View Only Radiation Oncology at [address] [address] 05/10/2024 2:30 PM EST Scheduled View Only Radiation Oncology at [address] [address] 05/10/2024 3:15 PM EST Office Visit Radiation Oncology at [address] [address] Ofe Fonseca MD [facility] [place] [address] 05/11/2024 2:30 PM EST Scheduled View Only Radiation Oncology at [address] [address] 05/11/2024 3:15 PM EST Scheduled View Only Radiation Oncology at [address] [address] Ofe Fonseca MD [facility] RADI[place] [address] 05/12/2024 2:45 PM EST Scheduled View Only Radiation Oncology at [address] [address] 06/03/2024 3:30 PM EST Appointment Ultrasound at [place] [phone] Mira Hutchison [facility] [place] [address] 06/23/2024 4:00 PM EST Appointment Mammography/DXA at [place] [phone] Miryam Feliciano MD [facility] [place] [address] 07/12/2024 8:00 AM EDT Laboratory Appointment Lab [address] [place] [phone] 07/12/2024 9:30 AM EDT Office Visit Nephrology Hypertension at [place] [phone] Sharmin Jean-Baptiste, [facility] [place] [address] 07/13/2024 10:30 AM EDT Laboratory Appointment Lab at [facility] Hematology Oncology [address] [place] [phone] 07/13/2024 11:30 AM EDT Office Visit Hematology [place] [address] Salena Alvares, [facility] [place] [address] 07/13/2024 12:45 PM EDT Appointment Hematology and Oncology at [place] [phone] documented as of this encounter Visit Diagnoses Diagnosis Malignant neoplasm of lower-inner quadrant of left breast in female, estrogen receptor positive documented in this encounter Care Teams Aix Architect Relationship Specialty Start Date End Date Haylie Steward MD [facility] [place] [address] PCP - General General Internal Medicine 08/04/22 documented as of this encounter
--- OUTSIDE RECORDS SUMMARY | 2024-04-29 01:51 | XMS_ITS | Encounter Summary ---
[place] [address] Care Team Providers Care Breaker Up Name Role Phone Haylie Steward MD Primary Care Provider + [phone] Reason for Visit * Consultation (Routine) - Closed Specialty Diagnoses / Procedures Referred By Contac t Referred To Contact Urology Diagnoses Stress incontinence, female Sharmin Jean-Baptiste [facility] [address] [facility] [place] [address] Referral ID Status Reason Start Date Expiration Date V isits Requested Visits Authorized [id number] Closed Consult, Test & Treat 04/11/2024 04/11/2025 1 1 Encounter Details Date Type Department Care Team (Late st Contact Info) Description 04/14/2024 9:20 AM EST [place] [address] [address]ira Rod [facility] [address] Urinary retention Social History Tobacco [...] from your doctor or pharmacy? Rarely 02/15/2024 [facility] Utilities Answer Date Recorded In the [...] any time in the past 12 m [facility], were you homeless or living in a long term (including now)? No 02/15/2024 IPV Inpatient Questions [...] for awhile waiting to hear from a liquid hydrogen plant operator, please be patient with them as they are receiving many calls. [facility] Radiology Ultrasounds: [phone] documented in this encounter Progress Notes * Mira Rod APRN - 04/14/2024 9:20 AM EST Urinary Incontinence New Patient Workup - Female Nataliya Morfin 1975 [id number] Reason for Visit: This is a female [...] the ED 10 days ago with elevated Carnation levels and was switched to Depakote at [...] 60-89 ml/min N18.2 Hyperparathyroidism E21.3 Anemia D64.9 Carnation intoxication, accidental or unintentional, initial encounter T56.891A [...] Placement Multiple Left 02/01/2024 Martha Martino MD [facility] RAD MAMMOGRAPHY MAMMO US BIOPSY LEFT Left 01/14/2024 Mammo Us Biopsy Left 01/14/2024 MAMMO US BIOPSY MULTIPLE LEFT Left 02/01/2024 Mammo US Biopsy Multiple Left 02/01/2024 Martha Martino MD [facility] RAD MAMMOGRAPHY PRO BX/REMV, LYMPH NODE, DEEP AXILL Left 02/05/2024 BIOPSY OR EXCISION OF LYMPH NODE(S), OPEN, DEEP AXILLARY NODE(S) (WRVU 6.43) performed by Hailey Dawson MD at [facility] OSC PRO COLONOSCOPY, BIOPSY N/A 06/11/2023 COLONOSCOPY FLEXIBLE, WITH BX (WRVU 3.56) performed by Jack Page MD at [facility] ENDOSCOPY PRO INTRAOP SENTINEL LYMPH ID W/DYE INJECTION Left 02/05/2024 INTRAOPERATIVE ID (MAPPING) SENTINEL LYMPH NODE,INCLUDES INJECTION (WRVU 2.5) performed by Hailey Dawson MD at [facility] OSC PRO MASTECTOMY PARTIAL Left 02/05/2024 MASTECTOMY PARTIAL (WRVU 10.13) performed by Hailey Dawson MD at [facility] OSC PRO MASTECTOMY PARTIAL Left 02/29/2024 MASTECTOMY PARTIAL (WRVU 10.13) performed by Hailey Dawson MD at [facility] OSC PRO UPPER GI ENDOSCOPY, BIOPSY N/A 06/11/2023 EGD WITH BIOPSY (WRVU 2.39) performed by Jack Page MD at [facility] ENDOSCOPY TOE SURGERY Social: No smoking [...] tablet Review of Systems: General Health: 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 RS - No cough [...] Scheduled View Only Radiation Oncology at [address] [address] 05/02/2024 3:45 PM EST Scheduled View Only Radiation Oncology at [address] [address] 05/03/2024 1:45 PM EST Scheduled View Only Radiation Oncology at [address] [address] 05/03/2024 2:15 PM EST Office Visit Radiation Oncology at [address] [address] Ofe Fonseca MD [facility] [place] [address] 05/05/2024 8:15 AM EST Scheduled View Only Radiation Oncology at [address] [address] 05/06/2024 12:30 PM EST Scheduled View Only Radiation Oncology at [address] [address] 05/09/2024 12:30 PM EST Scheduled View Only Radiation Oncology at [address] [address] 05/10/2024 2:30 PM EST Scheduled View Only Radiation Oncology at [address] [address] 05/10/2024 3:15 PM EST Office Visit Radiation Oncology at [address] [address] Ofe Fonseca MD [facility] [place] [address] 05/11/2024 2:30 PM EST Scheduled View Only Radiation Oncology at [address] [address] 05/11/2024 3:15 PM EST Scheduled View Only Radiation Oncology at [address] [address] Ofe Fonseca MD [facility] [place] [address] 05/12/2024 2:45 PM EST Scheduled View Only Radiation Oncology at [address] [address] 06/03/2024 3:30 PM EST [place] [address] Mira Rod, [facility] [place] [address] 06/23/2024 4:00 PM EST Appointment Mammography/DXA at [place] [phone] Miryam Feliciano MD [facility] [place] [address] 07/12/2024 8:00 AM EDT Laboratory Appointment Lab [address] [place] [phone] 07/12/2024 9:30 AM EDT Office Visit Nephrology Hypertension at [place] [phone] Sharmin Jean-Baptiste, [facility] [place] [address] 07/13/2024 10:30 AM EDT Laboratory Appointment Lab at [facility] Hematology Oncology [address] [place], [place] [phone] 07/13/2024 11:30 AM EDT Office Visit Hematology and Oncology at [place] [phone] Salena Alvares, [facility] [place] [address] 07/13/2024 12:45 PM EDT Appointment Hematology [place] [address] Scheduled Orders Name Type Priority Associated Diagnoses Orde r Schedule US Retroperitoneal Complete Imaging Routine Urinary retention Expected: 04/14/2024, Expires: 10/14/2024 documented as of this encounter Visit Diagnoses Diagnosis Urinary retention Retention of urine, unspecified documented in this encounter Care Teams Breaker Up Relationship Specialty Start Date End Date Haylie Steward MD [facility] [place] [address] PCP - General General Internal Medicine 08/04/22 documented as of this encounter
--- OUTSIDE RECORDS SUMMARY | 2024-04-29 01:51 | XMS_ITS | Encounter Summary ---
Author Organization [facility] [place] [address] Care Team Providers Care Bit Tapper Name Role Phone Haylie Steward MD Primary Care Provider + [phone] Encounter Details Date Type Department Care Team [...] your doctor or pharmacy? Rarely 02/15/2024 [facility] Utilities Answer Date Recorded In [...] Scheduled View Only Radiation Oncology at [address] [address] 05/02/2024 3:45 PM EST Scheduled View Only Radiation Oncology at [address] [address] 05/03/2024 1:45 PM EST Scheduled View Only Radiation Oncology at [address] [address] 05/03/2024 2:15 PM EST Office Visit Radiation Oncology at [address] [address] Ofe Fonseca MD [facility] [place] [address] 05/05/2024 8:15 AM EST Scheduled View Only Radiation Oncology at [address] [address] 05/06/2024 12:30 PM EST Scheduled View Only Radiation Oncology at [address] [address] 05/09/2024 12:30 PM EST Scheduled View Only Radiation Oncology at [address] [address] 05/10/2024 2:30 PM EST Scheduled View Only Radiation Oncology at [address] [address] 05/10/2024 3:15 PM EST Office Visit Radiation Oncology at [address] [address] Ofe Fonseca MD [facility] [place] [address] 05/11/2024 2:30 PM EST Scheduled View Only Radiation Oncology at [address] [address] 05/11/2024 3:15 PM EST Scheduled View Only Radiation Oncology at [address] [address] Ofe Fonseca MD [facility] [place] [address] 05/12/2024 2:45 PM EST Scheduled View Only Radiation Oncology at [address] [address] 06/03/2024 3:30 PM EST Appoint[place] [address] Mira Hutchison APRN [facility] [place] [address] 06/23/2024 4:00 PM EST Appointment Mammography/DXA at [place] [address] Miryam Feliciano MD [facility] [place] [address] 07/12/2024 8:00 AM EDT Laboratory Appointment Lab [address] [address] 07/12/2024 9:30 AM EDT Office Visit Nephrology Hypertension at [place] [address] Sharmin Jean-Baptiste, [facility] [place] [place] [address] 07/13/2024 10:30 AM EDT Laboratory Appointment Lab at [facility] [place] Oncology [address] [place] [address] 07/13/2024 11:30 AM EDT Office Visit Hematology and Oncology at [place] [address] Salena Alvares, [facility] [place] [address] 07/13/2024 12:45 PM EDT Appointment Hematology and Oncology at [place] [address] documented as of this encounter Visit Diagnoses Not on filedocumented in this encounter Care Teams Bit Tapper Relationship Specialty Start Date End Date Haylie Steward MD [facility] [address] PCP - General General Internal Medicine 08/04/22 documented as of this encounter
--- OUTSIDE RECORDS SUMMARY | 2024-04-29 01:51 | XMS_ITS | Encounter Summary ---
Author Organization Formerly [facility] [place] [address] Care Team Providers Care Dishwashing Machine Operator Name Role Phone Haylie Steward MD Primary Care Provider + [phone] Encounter Details Date Type Department Care Team (Latest Contact Info) Description 04/22/2024 Travel Social History Tobacco Use Types Packs/Day [...] from your doctor or pharmacy? Rarely 02/15/2024 [facility] Utilities Answer Date Recorded In the [...] Scheduled View Only Radiation Oncology at [address] [address] 05/02/2024 3:45 PM EST Scheduled View Only Radiation Oncology at [address] [address] 05/03/2024 1:45 PM EST Scheduled View Only Radiation Oncology at [address] [address] 05/03/2024 2:15 PM EST Office Visit Radiation Oncology at [address] [address] Ofe Fonseca MD [facility] [place] [address] 05/05/2024 8:15 AM EST Scheduled View Only Radiation Oncology at [address] [address] 05/06/2024 12:30 PM EST Scheduled View Only Radiation Oncology at [address] [address] 05/09/2024 12:30 PM EST Scheduled View Only Radiation Oncology at [address] [address] 05/10/2024 2:30 PM EST Scheduled View Only Radiation Oncology at [address] [address] 05/10/2024 3:15 PM EST Office Visit Radiation Oncology at [address] [address] Ofe Fonseca MD [facility] [place] [address] 05/11/2024 2:30 PM EST Scheduled View Only Radiation Oncology at [address] [address] 05/11/2024 3:15 PM EST Scheduled View Only Radiation Oncology at [address] [address] Ofe Fonseca MD [facility] [place] [address] 05/12/2024 2:45 PM EST Scheduled View Only Radiation Oncology at [address] [address] 06/03/2024 3:30 PM EST Appointment [place] [address] Mira Hutchison APRN [facility] [place] [address] 06/23/2024 4:00 PM EST Appointment Mammography/DXA at [place] [address] Miryam Feliciano MD [facility] [place] [address] 07/12/2024 8:00 AM EDT Laboratory Appointment Lab [address] [address] 07/12/2024 9:30 AM EDT Office Visit Nephrology Hypertension at [place] [address] Sharmin Jean-Baptiste, [facility] [place] [address] 07/13/2024 10:30 AM EDT Laboratory Appointment Lab at [facility] Hematology Oncology [address] [place] [address] 07/13/2024 11:30 AM EDT Office Visit Hematology and Oncology at [place] [address] Salena Alvares, [facility] [place] [address] 07/13/2024 12:45 PM EDT Appointment Hematology and Oncology at [place] [address] documented as of this encounter Visit Diagnoses Not on filedocumented in this encounter Care Teams Dishwashing Machine Operator Relationship Specialty Start Date End Date Haylie Steward MD [facility] [place] [address] PCP - General General Internal Medicine 08/04/22 documented as of this encounter
--- OUTSIDE RECORDS SUMMARY | 2024-04-29 01:52 | XMS_ITS | Encounter Summary ---
Author Organization [facility] [place] [address] Care Team Providers Care Child Care Attendant School Name Role Phone Haylie Steward MD Primary Care Provider [phone] Reason for Referral * Consultation (Routine) - Closed Specialty Diagnoses / Procedures Referred By Contac t Referred To Contact Radiation Oncology Diagnoses Malignant neoplasm of lower-inner quadrant of left breast in female, estrogen receptor positive Procedures Simulation for Radiation Therapy Planning Ofe Fonseca MD [facility] [place] [address] [facility] Rad Onc Office [address] [place] [phone] Referral ID Status Reason Start Date Expiration Date V isits Requested Visits Authorized [id number] Closed Consult, Test & Treat 03/22/2024 05/03/2024 6 6 Encounter Details Date Type Department Care Team (Late st Contact Info) Description 03/22/2024 Orders [place] [address] Ofe Fonseca MD [facility] [place] [address] Malignant neoplasm of lower-inner quadrant of left [...] your doctor or pharmacy? Rarely 02/15/2024 [facility] Utilities Answer Date Recorded In the [...] in the past 12 m [facility], were you homeless or living in a group home (including now)? No 02/15/2024 DH IPV [...] EST Scheduled View Only Radiation Oncology at [address] [address] 05/02/2024 3:45 PM EST Scheduled View Only Radiation Oncology at [address] [address] 05/03/2024 1:45 PM EST Scheduled View Only Radiation Oncology at [address] [address] 05/03/2024 2:15 PM EST Office Visit Radiation Oncology at [address] [address] Ofe Fonseca MD [facility] [place] [address] 05/05/2024 8:15 AM EST Scheduled View Only Radiation Oncology at [address] [address] 05/06/2024 12:30 PM EST Scheduled View Only Radiation Oncology at [address] [address] 05/09/2024 12:30 PM EST Scheduled View Only Radiation Oncology at [address] [address] 05/10/2024 2:30 PM EST Scheduled View Only Radiation Oncology at [address] [address] 05/10/2024 3:15 PM EST Office Visit Radiation Oncology at [address] [address] Ofe Fonseca MD [facility] [place] [address] 05/11/2024 2:30 PM EST Scheduled View Only Radiation Oncology at [address] [phone] 05/11/2024 3:15 PM EST Scheduled View Only Radiation Oncology at [address] [phone] Ofe Fonseca MD [facility] [place] [address] 05/12/2024 2:45 PM EST Scheduled View Only Radiation Oncology at [address] [phone] 06/03/2024 3:30 PM EST Appointment Ultrasound at [place] [phone] Mira Hutchison [facility] [place] [address] 06/23/2024 4:00 PM EST Appointment Mammography/DXA at [place] [phone] Miryam Feliciano MD [facility] [place] [address] 07/12/2024 8:00 AM EDT Laboratory Appointment Lab [address] [phone] 07/12/2024 9:30 AM EDT Office Visit [place] [address] Sharmin Jean-Baptiste [facility] [place] [address] 07/13/2024 10:30 AM EDT Laboratory Appointment Lab at [place] Hematology Oncology [address] [place], [place] [phone] 07/13/2024 11:30 AM EDT Office Visit H[place]ology [place] [address] Salena Alvares APRN [facility] [place] [address] 07/13/2024 12:45 PM EDT Appointment Hematology [place] [address] Scheduled Orders Name Type Priority Associated Diagnoses Orde r Schedule Simulation for Radiation Therapy Planning Radiation Oncology Routine Malignant neoplasm of lower-inner quadrant of left breast in female, estrogen receptor positive Expected: 03/22/2024, Expires: 09/21/2024 documented as of this encounter Visit Diagnoses Diagnosis Malignant neoplasm of lower-inner quadrant of left breast in female, estrogen receptor positive documented in this encounter Care Teams Child Care Attendant School Relationship Specialty Start [place] [address] PCP - General General Internal Medicine 08/04/22 documented as of this encounter
--- OUTSIDE RECORDS SUMMARY | 2024-04-29 01:52 | XMS_ITS | Encounter Summary ---
Author Organization [facility] [place] [address] Care Team Providers Care Enterprise Architect Manager Name Role Phone Haylie Steward MD Primary Care Provider + [phone] Encounter Details Date Type Department Care Team [...] from your doctor or pharmacy? Rarely 02/15/2024 [facility] Utilities Answer Date Recorded In [...] you homeless or living in a senior care (including now)? No 02/15/2024 DH IPV Inpatient [...] Scheduled View Only Radiation Oncology at [address] [phone] 05/02/2024 3:45 PM EST Scheduled View Only Radiation Oncology at [address] [address] 05/03/2024 1:45 PM EST Scheduled View Only Radiation Oncology at [address] [address] 05/03/2024 2:15 PM EST Office Visit Radiation Oncology at [address] [address] Ofe Fonseca MD [facility] [place] [address] 05/05/2024 8:15 AM EST Scheduled View Only Radiation Oncology at [address] [address] 05/06/2024 12:30 PM EST Scheduled View Only Radiation Oncology at [address] [address] 05/09/2024 12:30 PM EST Scheduled View Only Radiation Oncology at [address] [address] 05/10/2024 2:30 PM EST Scheduled View Only Radiation Oncology at [address] [address] 05/10/2024 3:15 PM EST Office Visit Radiation Oncology at [address] [phone] Ofe Fonseca MD [facility] [place] [address] 05/11/2024 2:30 PM EST Scheduled View Only Radiation Oncology at [address] [address] 05/11/2024 3:15 PM EST Scheduled View Only Radiation Oncology at [address] [phone] Ofe Fonseca MD [facility] [place] [address] 05/12/2024 2:45 PM EST Scheduled View Only Radiation Oncology at [address] [address] 06/03/2024 3:30 PM EST [place]oint[place] [address] Mira Hutchison APRN [facility] [place] [address] 06/23/2024 4:00 PM EST Appointment Mammography/DXA at [place] [address] Miryam Feliciano MD [facility] [place] [place] [address] 07/12/2024 8:00 AM EDT Laboratory Appointment Lab [address] [address] 07/12/2024 9:30 AM EDT Office Visit Nephrology Hypertension at [place] [address] Sharmin Jean-Baptiste, [facility] [place] [address] 07/13/2024 10:30 AM EDT Laboratory Appointment Lab at [facility] Hematology Oncology [address] [place] [address] 07/13/2024 11:30 AM EDT Office Visit Hematology and Oncology at [place] [address] Salena Alvares, [facility] [place] [place] [address] 07/13/2024 12:45 PM EDT Appointment Hematology and Oncology at [place] [address] documented as of this encounter Visit Diagnoses Not on filedocumented in this encounter Care Teams Enterprise Architect Manager Relationship Specialty Start Date End Date Haylie Steward MD [facility] [place] [address] PCP - General General Internal Medicine 08/04/22 documented as of this encounter
--- OUTSIDE RECORDS SUMMARY | 2024-04-29 01:52 | XMS_ITS | Encounter Summary ---
Author Organization [facility] [place] [address] Care Team Providers Care Outdoor Education Teacher Name Role Phone Haylie Steward MD Primary Care Provider + [phone] Encounter Details Date Type Department Care Team [...] from your doctor or pharmacy? Rarely 02/15/2024 [facility] Utilities Answer Date Recorded In [...] Scheduled View Only Radiation Oncology at [address] [address] 05/02/2024 3:45 PM EST Scheduled View Only Radiation Oncology at [address] [address] 05/03/2024 1:45 PM EST Scheduled View Only Radiation Oncology at [address] [address] 05/03/2024 2:15 PM EST Office Visit Radiation Oncology at [address] [address] Ofe Fonseca MD [facility] [place] [address] 05/05/2024 8:15 AM EST Scheduled View Only Radiation Oncology at [address] [address] 05/06/2024 12:30 PM EST Scheduled View Only Radiation Oncology at [address] [address] 05/09/2024 12:30 PM EST Scheduled View Only Radiation Oncology at [address] [address] 05/10/2024 2:30 PM EST Scheduled View Only Radiation Oncology at [address] [address] 05/10/2024 3:15 PM EST Office Visit Radiation Oncology at [address] [address] Ofe Fonseca MD [facility] [place] [address] 05/11/2024 2:30 PM EST Scheduled View Only Radiation Oncology at [address] [address] 05/11/2024 3:15 PM EST Scheduled View Only Radiation Oncology at [address] [address] Ofe Fonseca MD [facility] [place] [address] 05/12/2024 2:45 PM EST Scheduled View Only Radiation Oncology at [address] [address] 06/03/2024 3:30 PM EST Appointment [place] [address] Mira Hutchison APRN [facility] [place] [address] 06/23/2024 4:00 PM EST Appointment Mammography/DXA [place] [address] Miryma Feliciano MD [facility] [place] [address] 07/12/2024 8:00 AM EDT Laboratory Appointment Lab [address] [address] 07/12/2024 9:30 AM EDT Office Visit Nephrology Hypertension [place] [address] Sharmin Jean-Baptiste, [facility] [place] [address] 07/13/2024 10:30 AM EDT Laboratory Appointment Lab at [facility] Hematology Oncology [address] [place] [address] 07/13/2024 11:30 AM EDT Office Visit Hematology and Oncology at [place] [address] Salena Alvares, [facility] [place] [address] 07/13/2024 12:45 PM EDT Appointment Hematology and Oncology at [place] [address] documented as of this encounter Visit Diagnoses Not on filedocumented in this encounter Care Teams Outdoor Education Teacher Relationship Specialty Start Date End Date Haylie Steward MD [facility] [place] [address] PCP - General General Internal Medicine 08/04/22 documented as of this encounter
--- OUTSIDE RECORDS SUMMARY | 2024-04-29 01:52 | XMS_ITS | Encounter Summary ---
Author Organization [facility] [place] [address] Care Team Providers Care Toolroom Machinist Name Role Phone Haylie Steward MD Primary Care Provider [phone] Reason for Referral * Consultation (Routine) - Closed Specialty Diagnoses / Procedures Referred By Contac t Referred To Contact Radiation Oncology Diagnoses Malignant neoplasm of lower-inner quadrant of left breast in female, estrogen receptor positive Procedures Simulation for Radiation Therapy Planning Ofe Fonseca MD [facility] [place] [address] St Rad Onc Office [address] [place] [phone] Referral ID Status Reason Start Date Expiration Date V isits Requested Visits Authorized [id number] Closed Consult, Test & Treat 02/22/2024 02/21/2025 1 1 Reason for Visit * Reason Comments Radiation Consult * Consultation (Routine) - Closed Specialty Diagnoses / Procedures Referred By Contac t Referred To Contact Radiation Oncology Diagnoses Breast cancer Hailey Dawson MD [facility] [address] [employer] Rad Onc Office [address] [place] [phone] Referral ID Status Reason Start Date Expiration Date Visits Re quested Visits Authorized [id number] Closed 01/28/2024 01/27/2025 1 1 Encounter Details Date Type Department Care Team (Late st Contact Info) Description 02/22/2024 9:00 AM EDT Office Visit Radiation Oncology at [address] [phone] Ofe Fonseca MD [facility] [place] [address] Malignant neoplasm of lower-inner quadrant [...] doctor or pharmacy? Rarely 02/15/2024 [facility] Utilities Answer Date Recorded In the past 12 months has th e [employer], gas, oil, or water [employer] threatened to shut off services in your [...] any time in the past 12 m [facility], were you homeless or living in [...] father Barriers to treatment: None identified Referrals/Interventions: asphalt worker visit on day per routine. RADIATION [...] needle bx L breast. Path: IDC, DCIS, ER+MD+, Her2-. Oncotype DX 12. 01/21/24 MRI B [...] Placement Multiple Left 02/01/2024 Martha Martino MD [facility] RAD MAMMOGRAPHY MAMMO US BIOPSY LEFT Left 01/14/2024 Mammo Us Biopsy Left 01/14/2024 MAMMO US BIOPSY MULTIPLE LEFT Left 02/01/2024 Mammo US Biopsy Multiple Left 02/01/2024 Martha Martino MD [facility] RAD MAMMOGRAPHY PRO BX/REMV, LYMPH NODE, DEEP AXILL Left 02/05/2024 BIOPSY OR EXCISION OF LYMPH NODE(S), OPEN, DEEP AXILLARY NODE(S) (WRVU 6.43) performed by Hailey Dawson MD at [facility] OSC PRO COLONOSCOPY, BIOPSY N/A 06/11/2023 COLONOSCOPY FLEXIBLE, WITH BX (WRVU 3.56) performed by Jack Page MD at [facility] ENDOSCOPY PRO INTRAOP SENTINEL LYMPH ID W/DYE INJECTION Left 02/05/2024 INTRAOPERATIVE ID (MAPPING) SENTINEL LYMPH NODE,INCLUDES INJECTION (WRVU 2.5) performed by Hailey Dawson MD at [facility] OSC PRO MASTECTOMY PARTIAL Left 02/05/2024 MASTECTOMY PARTIAL (WRVU 10.13) performed by Hailey Dawson MD at [facility] OSC PRO UPPER GI ENDOSCOPY, BIOPSY N/A 06/11/2023 EGD WITH BIOPSY (WRVU 2.39) performed by Jack Page MD at [facility] ENDOSCOPY TOE SURGERY Your Medications Accurate as [...] A: Breast ca, L, IDC, gr 1, ER+MD+, Her2-, DCIS, s/p lumpectomy & SNB, pT1b [...] breath; tiredness. Acute/immediate side effects usually temporary. Late/portal architect side effects to breast discussed include: Treated breast may shrink, become firmer & sit higher on chest; achiness/stiffness of chest wall on treated side; small risk of adverse effect on heart; rib fracture on treated side; CT after xrt may show scarring w/in small volume of lung on treated side; radiotherapy associated 2nd malignancy. Risk of occurrence of late/mcc sideeffects small. Need for CTsim prior to [...] EST Scheduled View Only Radiation Oncology at [address] [address] 05/02/2024 3:45 PM EST Scheduled View Only Radiation Oncology at [address] [address] 05/03/2024 1:45 PM EST Scheduled View Only Radiation Oncology at [address] [address] 05/03/2024 2:15 PM EST Office Visit Radiation Oncology at [address] [phone] Ofe Fonseca MD [facility] [place] [address] 05/05/2024 8:15 AM EST Scheduled View Only Radiation Oncology at [address] [address] 05/06/2024 12:30 PM EST Scheduled View Only Radiation Oncology at [address] [address] 05/09/2024 12:30 PM EST Scheduled View Only Radiation Oncology at [address] [address] 05/10/2024 2:30 PM EST Scheduled View Only Radiation Oncology at [address] [address] 05/10/2024 3:15 PM EST Office Visit Radiation Oncology at [address] [address] Ofe Fonseca MD [facility] [place] [address] 05/11/2024 2:30 PM EST Scheduled View Only Radiation Oncology at [address] [phone] 05/11/2024 3:15 PM EST Scheduled View Only Radiation Oncology at [address] [phone] Ofe Fonseca MD [facility] [place] [address] 05/12/2024 2:45 PM EST Scheduled View Only Radiation Oncology at [address] [phone] 06/03/2024 3:30 PM EST Appointment Ultrasound at [place] [phone] Mira Hutchison [facility] [place] [address] 06/23/2024 4:00 PM EST Appointment Mammography/DXA at [place] [phone] Miryam Feliciano MD [facility] [place] [address] 07/12/2024 8:00 AM EDT Laboratory Appointment Lab [address] [phone] 07/12/2024 9:30 AM EDT Office Visit Neph[place] [address] Sharmin Jean-Baptiste [facility] [place] [address] 07/13/2024 10:30 AM EDT Laboratory Appointment Lab at [facility] Hematology Oncology [address] [place] [phone] 07/13/2024 11:30 AM EDT Office Visit Hematology [place] [address] Salena Alvares APRN [facility] [place] [address] 07/13/2024 12:45 PM EDT Appointment Hematology [place] [address] Scheduled Orders Name Type Priority Associated Diagnoses Orde r Schedule Simulation for Radiation Therapy Planning Radiation Oncology Routine Malignant neoplasm of lower-inner quadrant of left breast in female, estrogen receptor positive Expected: 04/12/2024, Expires: 10/12/2024 documented as of this encounter Visit Diagnoses Diagnosis Malignant neoplasm of lower-inner quadrant of left breast in female, estrogen receptor positive documented in this encounter Care Teams Toolroom Machinist Relationship Specialty Start Date [place] [address] PCP - General General Internal Medicine 08/04/22 documented as of this encounter
--- OUTSIDE RECORDS SUMMARY | 2024-04-29 01:52 | XMS_ITS | Encounter Summary ---
Author Organization [facility] [place] [address] Care Team Providers Care Accountant Helper Name Role Phone Haylie Steward MD Primary Care Provider + [phone] Encounter Details Date Type Department Care Team (Late st Contact Info) Description 02/15/2024 [place] [address] Social History Tobacco Use Types [...] from your doctor or pharmacy? Rarely 02/15/2024 [facility] Utilities Answer Date Recorded In the past 12 months has e [employer], gas, oil, or water [id number] threatened to shut off services in your [...] EST Scheduled View Only Radiation Oncology at [address] [address] 05/02/2024 3:45 PM EST Scheduled View Only Radiation Oncology at [address] [address] 05/03/2024 1:45 PM EST Scheduled View Only Radiation Oncology at [address] [address] 05/03/2024 2:15 PM EST Office Visit Radiation Oncology at [address] [address] Ofe Fonseca MD [facility] [place] [address] 05/05/2024 8:15 AM EST Scheduled View Only Radiation Oncology at [address] [address] 05/06/2024 12:30 PM EST Scheduled View Only Radiation Oncology at [address] [address] 05/09/2024 12:30 PM EST Scheduled View Only Radiation Oncology at [address] [address] 05/10/2024 2:30 PM EST Scheduled View Only Radiation Oncology at [address] [address] 05/10/2024 3:15 PM EST Office Visit Radiation Oncology at [address] [address] Ofe Fonseca MD [facility] [place] [address] 05/11/2024 2:30 PM EST Scheduled View Only Radiation Oncology at [address] [address] 05/11/2024 3:15 PM EST Scheduled View Only Radiation Oncology at [address] [address] Ofe Fonseca MD [facility] [place] [address] 05/12/2024 2:45 PM EST Scheduled View Only Radiation Oncology at [address] [address] 06/03/2024 3:30 PM EST [place] [address] Mira Hutchison APRN [facility] [place] [address] 06/23/2024 4:00 PM EST Appointment Mammography/DXA at [place] [phone] Miryam Feliciano MD [facility] [place] [address] 07/12/2024 8:00 AM EDT Laboratory Appointment Lab [address] [phone] 07/12/2024 9:30 AM EDT Office Visit Nephrology Hypertension at [place] [phone] Sharmin Jean-Baptiste, [facility] [place] [address] 07/13/2024 10:30 AM EDT Laboratory Appointment Lab [place] [facility] [place] [address] [place], [place] [phone] 07/13/2024 11:30 AM EDT Office Visit Hematology and Oncology at [place] [phone] Salena Alvares, [facility] [place] [address] 07/13/2024 12:45 PM EDT Appointment Hematology and Oncology at [place] [phone] documented as of this encounter Procedures Procedure Name Priority Date/Time Associated Diagnosis Comments SURGICAL PATHOLOGY SCAN Routine 02/15/2024 1:24 PM EDT documented in this encounter Results * Scan Doc: Surgical Pathology (02/15/2024 1:24 PM EDT) Historical Provider MD MEDIA MGR SCAN EX T ORDR/RSLT documented in this encounter Visit Diagnoses Not on filedocumented in this encounter Care Teams Accountant Helper Relationship Specialty Start Date End Date Haylie Steward MD [facility] [place] [address] PCP - General General Internal Medicine 08/04/22 documented as of this encounter
--- OUTSIDE RECORDS SUMMARY | 2024-04-29 01:52 | XMS_ITS | Encounter Summary ---
Author Organization [facility] [place] [address] Care Team Providers Care Training Developer Name Role Phone Haylie Steward MD Primary Care Provider [phone] Reason for Visit * Consultation (Routine) - Closed Specialty Diagnoses / Procedures Referred By Contac t Referred To Contact Radiation Oncology Diagnoses Malignant neoplasm of lower-inner quadrant of left breast in female, estrogen receptor positive Procedures Simulation for Radiation Therapy Planning Ofe Fonseca MD [facility] [place] [address] [facility] Rad Onc Office [address] [place] [phone] Referral ID Status Reason Start Date Expiration Date V isits Requested Visits Authorized [id number] Closed Consult, Test & Treat 02/22/2024 02/21/2025 1 1 Encounter Details Date Type Department Care Team (Latest Contact Info) Description 03/22/2024 12:30 PM EST Ancillary Appointment Radiation Oncology at [address] [address] Ofe Fonseca MD [facility] [place] [address] Malignant neoplasm of lower-inner quadrant of left [...] from your doctor or pharmacy? Rarely 02/15/2024 [facility] Utilities Answer Date Recorded In the [...] any time in the past 12 m [facility], were you homeless or living in [...] your treatment to your nurse or doctor. [facility] Radiation Oncology Our normal business hours are: Thursday - Thursday 8 AM to 5 PM [place], [place], [place] For emergent situations after hours please call for either location and ask for the Radiation Oncologist sanitation associate. documented in this encounter Progress Notes * [...] medication plan made: OTC acetaminophen prn Referrals: MANAGER ADMINISTRATION per routine Answers submitted by the patient [...] Scheduled View Only Radiation Oncology at [address] [address] 05/02/2024 3:45 PM EST Scheduled View Only Radiation Oncology at [address] [address] 05/03/2024 1:45 PM EST Scheduled View Only Radiation Oncology at [address] [address] 05/03/2024 2:15 PM EST Office Visit Radiation Oncology at [address] [address] Ofe Fonseca MD [facility] [place] [address] 05/05/2024 8:15 AM EST Scheduled View Only Radiation Oncology at [address] [address] 05/06/2024 12:30 PM EST Scheduled View Only Radiation Oncology at [address] [address] 05/09/2024 12:30 PM EST Scheduled View Only Radiation Oncology at [address] [address] 05/10/2024 2:30 PM EST Scheduled View Only Radiation Oncology at [address] [address] 05/10/2024 3:15 PM EST Office Visit Radiation Oncology at [address] [address] Ofe Fonseca MD [facility] [place] [address] 05/11/2024 2:30 PM EST Scheduled View Only Radiation Oncology at [address] [address] 05/11/2024 3:15 PM EST Scheduled View Only Radiation Oncology at [address] [address] Ofe Fonseca MD [facility] [place] [address] 05/12/2024 2:45 PM EST Scheduled View Only Radiation Oncology at [address] [address] 06/03/2024 3:30 PM EST [place] [address] Mira Hutchison APRN [facility] [place] [address] 06/23/2024 4:00 PM EST Appointment Mammography/DXA at [place] [phone] Miryam Feliciano MD [facility] [place] [address] 07/12/2024 8:00 AM EDT Laboratory Appointment Lab [address] [place] [phone] 07/12/2024 9:30 AM EDT Office Visit Nephrology Hypertension at [address] Sharmin Jean-Baptiste, [facility] [place] [address] 07/13/2024 10:30 AM EDT Laboratory Appointment [place] [facility] [place] [address] [place], [place] [phone] 07/13/2024 11:30 AM EDT Office Visit Hematology and Oncology at [place] [phone] Salena Alvares, [facility] [place] [address] 07/13/2024 12:45 PM EDT Appointment Hematology and Oncology at [place] [phone] documented as of this encounter Visit Diagnoses Diagnosis Malignant neoplasm of lower-inner quadrant of left breast in female, estrogen receptor positive documented in this encounter Care Teams Training Developer Relationship Specialty Start Date [place] [address] PCP - General General Internal Medicine 08/04/22 documented as of this encounter
--- OUTSIDE RECORDS SUMMARY | 2024-04-29 01:52 | XMS_ITS | Encounter Summary ---
[place] [address] Care Team Providers Care Rubber Trimmer Name Role Phone Haylie Steward MD Primary Care Provider + [phone] Reason for Visit * Reason Onset Date Comments Other 02/12/202402/11 - Oncotype submitted Encounter Details Date Type Department Care Team (Late st Contact Info) Description 02/12/2024 Telephone [place]ematology [place] [phone] Sharmin Farnsworth Other (02/11 - Oncotype submitted) [...] things needed for daily living? No 01/20/2024 [facility] Inpatient Questions Answer Date Recorded [...] Scheduled View Only Radiation Oncology at [address] [address] 05/02/2024 3:45 PM EST Scheduled View Only Radiation Oncology at [address] [address] 05/03/2024 1:45 PM EST Scheduled View Only Radiation Oncology at [address] [address] 05/03/2024 2:15 PM EST Office Visit Radiation Oncology at [address] [address] Ofe Fonseca MD [facility] [place] [address] 05/05/2024 8:15 AM EST Scheduled View Only Radiation Oncology at [address] [address] 05/06/2024 12:30 PM EST Scheduled View Only Radiation Oncology at [address] [address] 05/09/2024 12:30 PM EST Scheduled View Only Radiation Oncology at [address] [address] 05/10/2024 2:30 PM EST Scheduled View Only Radiation Oncology at [address] [address] 05/10/2024 3:15 PM EST Office Visit Radiation Oncology at [address] [address] Ofe Fonseca MD [facility] [place] [address] 05/11/2024 2:30 PM EST Scheduled View Only Radiation Oncology at [address] [address] 05/11/2024 3:15 PM EST Scheduled View Only Radiation Oncology at [address] [address] Ofe Fonseca MD [facility] [place] [address] 05/12/2024 2:45 PM EST Scheduled View Only Radiation Oncology at [address] [address] 06/03/2024 3:30 PM EST Appoint[place] [address] Mira Hutchison KILN MECHANIC [facility] [place] [address] 06/23/2024 4:00 PM EST Appointment Mammography/DXA at [place] [phone] Miryam Feliciano MD [facility] [place] [address] 07/12/2024 8:00 AM EDT Laboratory Appointment Lab [address] [place] [phone] 07/12/2024 9:30 AM EDT Office Visit Nephrology Hypertension at [place] [phone] Sharmin Jean-Baptiste KILN MECHANIC [facility] [address] 07/13/2024 10:30 AM EDT Laboratory Appointment Lab [place] [facility] [place] [address] [place] [phone] 07/13/2024 11:30 AM EDT Office Visit [place]ology [place] [address] Salena Alvares APRN [facility] [place] [address] 07/13/2024 12:45 PM EDT Appointment Hematology [place] [phone] documented as of this encounter Visit Diagnoses Not on filedocumented in this encounter Care Teams Rubber Trimmer Relationship Specialty Start Date [place] [address] PCP - General General Internal Medicine 08/04/22 documented as of this encounter
--- OUTSIDE RECORDS SUMMARY | 2024-04-29 01:52 | XMS_ITS | Encounter Summary ---
Author Organization [facility] [place] [address] Care Team Providers Care Pcb Design Engineer Name Role Phone Haylie Steward MD Primary Care Provider [phone] Encounter Details Date Type Department Care Team (Late st Contact Info) Description 03/22/2024 Notes Only Radiation Oncology at [address] [address] Anusha Washburn, MAIL DISTRIBUTOR OFFICE OF CARE MANAGEMENT Social History Tobacco [...] from your doctor or pharmacy? Rarely 02/15/2024 [facility] Utilities Answer Date Recorded In the past 12 months has [employer], gas, oil, or water [employer] threatened to shut off services in your [...] this encounter Progress Notes * Anusha Washburn, MAIL DISTRIBUTOR - 03/22/2024 1:54 PM EST Reason for Referral: Brief assessment of social and emotional needs. Met with Nataliya after her sim today to introduce myself and role of licensed master social worker to assess/address barriers to getting [...] with transportation. Work/Finances/Insurance: Nataliya has income from [employer]. 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 Will follow to assess/address psychosocial needs. INDIA Clifford, INVENTORY AUDITOR, OSW-C Lab Systems Analyst [facility] documented in this encounter Plan of Treatment Upcoming Encounters Date Type Department Care Team (Latest Contact Info) Description 04/29/2024 3:00 PM EST Scheduled View Only Radiation Oncology at [address] [address] 05/02/2024 3:45 PM EST Scheduled View Only Radiation Oncology at [address] [address] 05/03/2024 1:45 PM EST Scheduled View Only Radiation Oncology at [address] [address] 05/03/2024 2:15 PM EST Office Visit Radiation Oncology at [address] [address] Ofe Fonseca MD [facility] [place] [address] 05/05/2024 8:15 AM EST Scheduled View Only Radiation Oncology at [address] [address] 05/06/2024 12:30 PM EST Scheduled View Only Radiation Oncology at [address] [address] 05/09/2024 12:30 PM EST Scheduled View Only Radiation Oncology at [address] [address] 05/10/2024 2:30 PM EST Scheduled View Only Radiation Oncology at [address] [address] 05/10/2024 3:15 PM EST Office Visit Radiation Oncology at [address] [address] Ofe Fonseca MD [facility] [place] [address] 05/11/2024 2:30 PM EST Scheduled View Only Radiation Oncology at [address] [address] 05/11/2024 3:15 PM EST Scheduled View Only Radiation Oncology at [address] [address] Ofe Fonseca MD [facility] [place] [address] 05/12/2024 2:45 PM EST Scheduled View Only Radiation Oncology at [address] [address] 06/03/2024 3:30 PM EST [place] [phone] Mira Hutchison APRN [facility] [place] [address] 06/23/2024 4:00 PM EST Appointment Mammography/[place] [phone] Miryam Feliciano MD [facility] [place] [address] 07/12/2024 8:00 AM EDT Laboratory Appointment Lab [address] [place] [address] 07/12/2024 9:30 AM EDT Office Visit Nephrology Hypertension at [place] [address] Sharmin Jean-Baptiste, [facility] [place] [address] 07/13/2024 10:30 AM EDT Laboratory Appointment Lab at [facility] Hematology Oncology [address] [place], [place] [phone] 07/13/2024 11:30 AM EDT Office Visit Hematology [place] [address] Salena Alvares [facility] [place] [address] 07/13/2024 12:45 PM EDT Appointment Hematology and Oncology at [place] [phone] documented as of this encounter Visit Diagnoses Not on filedocumented in this encounter Care Teams Pcb Design Engineer Relationship Specialty Start Date End Date Haylie Steward MD [facility] [place] [address] PCP - General General Internal Medicine 08/04/22 documented as of this encounter
--- OUTSIDE RECORDS SUMMARY | 2024-04-29 01:52 | XMS_ITS | Encounter Summary ---
[place] [address] Care Team Providers Care [employer] Distribution Consultant Name Role Phone Haylie Steward MD Primary Care Provider + [phone] Encounter Details Date Type Department Care Team (Latest Contact Info) Description 03/15/2024 2:55 PM EST Laboratory Appointment Lab [address] [address] Bipolar 1 disorder Social History Tobacco Use [...] your doctor or pharmacy? Rarely 02/15/2024 [facility] Utilities Answer Date Recorded In the past 12 months has [employer], [employer], oil, or water [employer] threatened to shut off services in [...] No 02/15/2024 Housing Stability Vital Sign Answer Jevno e Recorded In the last 12 months, was t here a time when you were not able to pay the mortgage or rent on time? Patient declined 02/15/20 24 In the past 12 months, how m any times have you moved where you were living? 0 02/15/2024 At any time in the past 12 m [facility], were you homeless or [...] Scheduled View Only Radiation Oncology at [address] [address] 05/02/2024 3:45 PM EST Scheduled View Only Radiation Oncology at [address] [address] 05/03/2024 1:45 PM EST Scheduled View Only Radiation Oncology at [address] [address] 05/03/2024 2:15 PM EST Office Visit Radiation Oncology at [address] [address] Ofe Fonseca MD [facility] [place] [address] 05/05/2024 8:15 AM EST Scheduled View Only Radiation Oncology at [address] [address] 05/06/2024 12:30 PM EST Scheduled View Only Radiation Oncology at [address] [address] 05/09/2024 12:30 PM EST Scheduled View Only Radiation Oncology at [address] [address] 05/10/2024 2:30 PM EST Scheduled View Only Radiation Oncology at [address] [address] 05/10/2024 3:15 PM EST Office Visit Radiation Oncology at [address] [address] Ofe Fonseca MD [facility] [place] [address] 05/11/2024 2:30 PM EST Scheduled View Only Radiation Oncology at [address] [address] 05/11/2024 3:15 PM EST Scheduled View Only Radiation Oncology at [address] [address] Ofe Fonseca MD [facility] [place] [address] 05/12/2024 2:45 PM EST Scheduled View Only Radiation Oncology at [address] [address] 06/03/2024 3:30 PM EST Appointment [place] [address] Mira Hutchison APRN [facility] [place] [address] 06/23/2024 4:00 PM EST Appointment Mammography/DXA at [place] [phone] Miryam Feliciano MD [facility] [place] [address] 07/12/2024 8:00 AM EDT Laboratory Appointment Lab [address] [place] [phone] 07/12/2024 9:30 AM EDT Office Visit Nephrology [place] [phone] Sharmin Jean-Baptiste, [facility] [place] [address] 07/13/2024 10:30 AM EDT Laboratory Appointment Lab [place] [facility] [place] [address] [place] [phone] 07/13/2024 11:30 AM EDT Office Visit Hematology [place] [phone] Salena Alvares, [facility] [place] [address] 07/13/2024 12:45 PM EDT Appointment Hematology [place] [phone] documented as of this encounter Procedures Procedure [...] - 4.20 mcIU/mL 03/15/2024 1:18 PM EST [facility] Comment: Reference Interval (mcIU/mL): ?? Females: ? First Trimester: 0.23-3.88 ? Second Trimester: 0.22-3.90 ? Third Trimester: 0.44-4.66 Blood VENOUS BLOOD SPECIMEN / Unknown Venipuncture / Unknown 03/15/2024 12:27 PM EST 03/15/2024 12:27 PM EST Michelet Monge MD CHEMISTRY ORDERABLES Performing Organization Address [facility]/ZIP Co de Phone Number [facility] [place] [address] * T4, free (03/15/2024 12:27 PM EST) Free T4 1.49 0.93 - 1.70 ng/dL 03/15/2024 1:18 PM EST [facility] Comment: Reference Interval (ng/dL): ?? Females: ? First Trimester: 0.97-1.68 ? Second Trimester: 0.77-1.51 ? Third Trimester: 0.77-1.49 Blood VENOUS BLOOD SPECIMEN / Unknown Venipuncture / Unknown 03/15/2024 12:27 PM EST 03/15/2024 12:27 PM EST Michelet Monge MD CHEMISTRY ORDERABLES [facility] [place] [address] * T3, free (03/15/2024 12:27 PM EST) Pathologist [facility] Free T3 2.3 2.0 - 4.4 pg/mL 03/15/2024 1:18 PM EST [facility] Blood VENOUS BLOOD SPECIMEN / Unknown Venipuncture / Unknown 03/15/2024 12:27 PM EST 03/15/2024 12:27 PM EST Michelet Monge MD CHEMISTRY ORDERABLES [facility] [place] [address] * T4 Total (03/15/2024 12:27 PM EST) [facility] T4 Total 8.6 5.3 - 11.6 mcg/dL 03/15/2024 1:18 PM EST [facility] Comment: Reference Interval (mcg/dL): ?? Females: ? First Trimester: 6.3-13.5 ? Second Trimester: 7.1-14.3 ? Third Trimester: 6.9-14.1 Blood VENOUS BLOOD SPECIMEN / Unknown Venipuncture / Unknown 03/15/2024 12:27 PM EST 03/15/2024 12:27 PM EST Michelet Monge MD CHEMISTRY ORDERABLES Performing Organization Address City/[facility]/ZIP Co de Phone Number [facility] [place] [address] * (ABNORMAL) T3 Total (03/15/2024 12:27 PM EST) [facility] T3 Total 73(L) 80 - 200 ng/dL 03/15/2024 1:18 PM EST [facility] Blood VENOUS BLOOD SPECIMEN / Unknown Venipuncture / Unknown 03/15/2024 12:27 PM EST 03/15/2024 12:27 PM EST Michelet Monge [place] [address] documented in this encounter Visit Diagnoses Diagnosis Bipolar 1 disorder Bipolar I disorder, most recent episode (or current) unspecified documented in this encounter Care Teams Oracle Distribution Consultant Relationship Specialty Start Date [place] [address] PCP - General General Internal Medicine 08/04/22 documented as of this encounter
--- OUTSIDE RECORDS SUMMARY | 2024-04-29 01:52 | XMS_ITS | Encounter Summary ---
Author Organization [facility] [place] [address] Care Team Providers Care Deaf/Hard Of Hearing Specialist Name Role Phone Haylie Steward MD Primary Care Provider [phone] Encounter Details Date Type Department Care Team (Latest Contact Info) Description 02/05/2024 11:12 AM EDT - 02/05/2024 4:30 PM EDT Hospital Encounter [place] [address] Mignon Dawson MD [facility] [place] [address] Discharge Disposition: Home Social History Tobacco Use [...] shower 24 hours Activity as tolerated Call [phone] with any questions Do not soak incision [...] closest emergency room or call the hospital plating tank operator at [phone] and ask for physician automation and controls instructor covering for your physician. Questions or problems after 5pm or on a weekend: Call the [facility] plating tank operator at and ask for the physician automation and controls instructor covering for your doctor. documented in this [...] was suspicious and biopsy confirmed low grade ER/OR+ IDC , her2 negative. Given breast density, [...] gland cancer SH: non smoker. 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 . [...] Dawson MD - 02/05/2024 1:40 PM EDT [facility] Operative Note Patient Name: Nataliya Morfin : [id number] MR#: [id number] Case Date: 02/05/2024 Surgeon: Surgeons and Role: [...] Dawson MD 02/05/2024 1430 3 : Left [place] Node Tissue [place] Lymph Node SURGICAL PATHOLOGY Mignon Dawson MD [...] sentinel node excision. Procedure Description: Operative Procedure: aNtaliya presented to radiology for seed localization of [...] EST Scheduled View Only Radiation Oncology at [address] [address] 05/02/2024 3:45 PM EST Scheduled View Only Radiation Oncology at [address] [address] 05/03/2024 1:45 PM EST Scheduled View Only Radiation Oncology at [address] [address] 05/03/2024 2:15 PM EST Office Visit Radiation Oncology at [address] [address] Ofe Fonseca MD [facility] [place] [address] 05/05/2024 8:15 AM EST Scheduled View Only Radiation Oncology at [address] [address] 05/06/2024 12:30 PM EST Scheduled View Only Radiation Oncology at [address] [address] 05/09/2024 12:30 PM EST Scheduled View Only Radiation Oncology at [address] [address] 05/10/2024 2:30 PM EST Scheduled View Only Radiation Oncology at [address] [address] 05/10/2024 3:15 PM EST Office Visit Radiation Oncology at [address] [address] Ofe Fonseca MD [facility] [place] [address] 05/11/2024 2:30 PM EST Scheduled View Only Radiation Oncology at [address] [address] 05/11/2024 3:15 PM EST Scheduled View Only Radiation Oncology at [address] [phone] Ofe Fonseca MD [facility] [place] [address] 05/12/2024 2:45 PM EST Scheduled View Only Radiation Oncology at [address] [phone] 06/03/2024 3:30 PM EST Appointment Ultrasound at [place] [phone] Mira Hutchison [employer]SEMBLER [employer] [facility] [place] [address] 06/23/2024 4:00 PM EST Appointment Mammography/DXA at [place] [phone] Miryam Feliciano MD [facility] [place] [place] [address] 07/12/2024 8:00 AM EDT Laboratory Appointment Lab [address] [place], [place] [phone] 07/12/2024 9:30 AM EDT Office Visit Nephrology Hypertension at [place] [phone] Sharmin Jean-Baptiste [facility] [place] [address] 07/13/2024 10:30 AM EDT Laboratory Appointment Lab at [facility] Hematology Oncology [address] [place] [phone] 07/13/2024 11:30 AM EDT Office Visit [place] [address] Salena Alvares APRN [facility] [place] [address] 07/13/2024 12:45 PM EDT Appointment Hematology and Oncology at [place] [phone] documented as of this encounter Procedures Procedure Name Priority Date/Time Associated Diagnosis Comments SURGICAL PATHOLOGY Routine 02/05/2024 2: 03 PM EDT MODIFIER MAGSEED Yes 02/05/2024 1:12 PM EDT breast cancer Intraop [place] Lymph Id W/Dye Injection (21806) Yes 02/05/2024 1:12 PM EDT breast cancer Bx/Remv, Lymph Node, Deep Axill (16723) Yes 02/05/2024 1:12 PM EDT breast cancer Mastectomy Partial (93762) Yes 02/05/2024 1:12 PM EDT breast cancer documented in this encounter Results * Surgical Pathology (02/05/2024 2:03 PM EDT) Case Report Surgical Pathology Report ? Case: [id number] ? Authorizing Provider: ??Mignon aDwson MD ? Collected: ? 02/05/2024 1403 ? Ordering Location: ? [facility] ??Received: ?02/05/2024 1455 ? [facility] ? Hospital ? Pathologist: ? Tati Wilkins, DO ? Specimens: ?? A) - Breast, Left, left partial breast mastectomy ? B) - Breast, Left, left breast tissue lesion 1 ? C) - [place] Lymph Node, Left [place] Node ? 02/18/2024 11:55 AM EDT [facility] Final Diagnosis A. Breast, left. [...] negative for malignancy. (0/2) 02/18/2024 11:55 AM EDT [facility] Synoptic Report INVASIVE CARCINOMA OF [...] (sentinel and non-sentinel): ?2 ? Number of [place] Nodes Examined: ?2 pTNM CLASSIFICATION (AJCC 8th [...] N Suffix: ?(sn) 02/18/2024 11:55 AM EDT [facility] Clinical Information A. Breast, Left, left partial breast mastectomy *Other - as specified in Clinical Information Left partial breast mastectomy Clin info-breast cancer B. Breast, Left, left breast tissue lesion 1 *Other - as specified in Clinical Information left breast tissue lesion 1 Clin info-Breast cancer C. [place] Lymph Node, Left [place] Node *Other - as specified in Clinical Information Left [place] Node 02/18/2024 11:55 AM EDT [facility] Gross Description A. Breast, [...] #2 A4-A5: Bisected slice #3 to include credit resolution representative mass in block A5 A6-A7: Bisected slice #4 to include credit resolution representative mass and the site containing the [...] #3 B5-B6: Bisected slice #4 to include credit resolution representative mass B7-B8: Bisected slice #5 to include credit resolution representative mass and the site containing the biopsy clip B9: Perpendicular sections of the lateral margin C. [place] Lymph Node, Left [place] Node. C - Labeled/Fixative: [place] lymph node, left, fresh. Quantity/Size: Two, 0.5 x 0.4 x 0.4 cm and 0.7 x 0.4 x 0.3 cm. Tissue Description: Adipose tissue with two, up to 0.7 x 0.4 x 0.3 cm. Sections/Processi ng: Entirely submitted in 2 cassettes as follows: C1: Smaller bisected candidate lymph node C2: Larger bisected candidate lymph node CAK 02/18/2024 11:55 AM EDT [facility] Result Note Routine 02/18/2024 11:55 AM EDT [facility] Tissue LEFT BREAST STRUCTURE [...] PM EDT 02/05/2024 3:12 PM EDT Comment:Left [place] Node Mignon Dawson MD PATHOLOGY/CYTOLOGY ORDERABLES [facility] [place] [address] documented in this encounter Visit Diagnoses Not [...] Routine 1340 (Given - Provid er: Mignon aDwson MD - Comment: Bupivacaine 0.5% plain 30 [...] Routine documented in this encounter Care Teams Deaf/Hard Of Hearing Specialist Relationship Specialty Start Date [place] [address] PCP - General General Internal Medicine 08/04/22 documented as of this encounter
--- OUTSIDE RECORDS SUMMARY | 2024-04-29 01:52 | XMS_ITS | Encounter Summary ---
Author Organization [place] [address] Care Team Providers Care Coat Baster Name Role Phone Haylie Steward MD Primary Care Provider + [phone] Encounter Details Date Type Department Care Team [...] Scheduled View Only Radiation Oncology at [address] [address] 05/02/2024 3:45 PM EST Scheduled View Only Radiation Oncology at [address] [address] 05/03/2024 1:45 PM EST Scheduled View Only Radiation Oncology at [address] [address] 05/03/2024 2:15 PM EST Office Visit Radiation Oncology at [address] [address] Ofe Fonseca MD [facility] [place] [address] 05/05/2024 8:15 AM EST Scheduled View Only Radiation Oncology at [address] [address] 05/06/2024 12:30 PM EST Scheduled View Only Radiation Oncology at [address] [address] 05/09/2024 12:30 PM EST Scheduled View Only Radiation Oncology at [address] [phone] 05/10/2024 2:30 PM EST Scheduled View Only Radiation Oncology at [address] [address] 05/10/2024 3:15 PM EST Office Visit Radiation Oncology at [address] [address] Ofe Fonseca MD [facility] [place] [address] 05/11/2024 2:30 PM EST Scheduled View Only Radiation Oncology at [address] [address] 05/11/2024 3:15 PM EST Scheduled View Only Radiation Oncology at [address] [address] Ofe Fonseca MD [facility] [place] [address] 05/12/2024 2:45 PM EST Scheduled View Only Radiation Oncology at [address] [address] 06/03/2024 3:30 PM EST [place] [address] Mira Hutchison APRN [facility] [place] [address] 06/23/2024 4:00 PM EST Appointment Mammography/DXA at [place] [address] Miryam Feliciano MD [facility] [place] [place] [address] 07/12/2024 8:00 AM EDT Laboratory Appointment Lab [place] [address] 07/12/2024 9:30 AM EDT Office Visit Nephrology Hypertension at [place] [address] Sharmin Jean-Baptiste, [facility] [place] [address] 07/13/2024 10:30 AM EDT Laboratory Appointment Lab at [facility] Hematology Oncology [address] [place] [address] 07/13/2024 11:30 AM EDT Office Visit Hematology and Oncology at [place] [address] Salena Alvares, [facility] [place] [address] 07/13/2024 12:45 PM EDT Appointment Hematology and Oncology at [place] [address] documented as of this encounter Visit Diagnoses Not on filedocumented in this encounter Care Teams Coat Baster Relationship Specialty Start Date End Date Haylie Steward MD [facility] [place] [address] PCP - General General Internal Medicine 08/04/22 documented as of this encounter
--- OUTSIDE RECORDS SUMMARY | 2024-04-29 01:52 | XMS_ITS | Encounter Summary ---
Author Organization [facility] [place] [address] Care Team Providers Care Track Grinder Name Role Phone Haylie Steward MD Primary Care Provider + [phone] Encounter Details Date Type Department Care Team (Late st Contact Info) Description 02/04/2024 [place] [phone] Glendy Tovar, RN Social History Tobacco Use [...] EST Scheduled View Only Radiation Oncology at [address] [address] 05/02/2024 3:45 PM EST Scheduled View Only Radiation Oncology at [address] [address] 05/03/2024 1:45 PM EST Scheduled View Only Radiation Oncology at [address] [address] 05/03/2024 2:15 PM EST Office Visit Radiation Oncology at [address] [address] Ofe Fonseca MD [facility] [place] [address] 05/05/2024 8:15 AM EST Scheduled View Only Radiation Oncology at [address] [address] 05/06/2024 12:30 PM EST Scheduled View Only Radiation Oncology at [address] [address] 05/09/2024 12:30 PM EST Scheduled View Only Radiation Oncology at [address] [address] 05/10/2024 2:30 PM EST Scheduled View Only Radiation Oncology at [address] [address] 05/10/2024 3:15 PM EST Office Visit Radiation Oncology at [address] [address] Ofe Fonseca MD [facility] [place] [address] 05/11/2024 2:30 PM EST Scheduled View Only Radiation Oncology at [address] [phone] 05/11/2024 3:15 PM EST Scheduled View Only Radiation Oncology at [address] [phone] Ofe Fonseca MD [facility] [place] [address] 05/12/2024 2:45 PM EST Scheduled View Only Radiation Oncology at [address] [phone] 06/03/2024 3:30 PM EST Appointment Ultrasound at [place] [phone] Mira Hutchison [facility] [place] [address] 06/23/2024 4:00 PM EST Appointment Mammography/DXA at [place] [phone] Miryam Feliciano MD [facility] [place] [address] 07/12/2024 8:00 AM EDT Laboratory Appointment Lab [address] [phone] 07/12/2024 9:30 AM EDT Office Visit Nephrology Hypertension at [place] [phone] Sharmin Jean-Baptiste [facility] [place] [address] 07/13/2024 10:30 AM EDT Laboratory Appointment Lab at [facility] Hematology Oncology [address] [place], [place] [phone] 07/13/2024 11:30 AM EDT Office Visit Hematology [place] [address] Salena Alvares APRN [facility] DR MEDICAL ONCOLOGY [place] [phone] 07/13/2024 12:45 PM EDT Appointment Hematology [place] [address] documented as of this encounter Visit Diagnoses Not on filedocumented in this encounter Care Teams Track Grinder Relationship Specialty Start Date [place] [address] PCP - General General Internal Medicine 08/04/22 documented as of this encounter
--- OUTSIDE RECORDS SUMMARY | 2024-04-29 01:52 | XMS_ITS | Encounter Summary ---
Author Organization [facility] Address [facility] [place] [address] Care Team Providers Care Inventory Control Clerk Name Role Phone Haylie Steward MD Primary Care Provider [phone] Encounter Details Date Type Department Care Team (Latest Contact Info) Description 02/05/2024 12:00 PM EDT - 02/05/2024 12:29 PM EDT Hospital En[place] [address] Mignon Dawson MD [facility] [place] [address] History of breast cancer Discharge Disposition: Home [...] things needed for daily living? No 01/20/2024 [facility] Inpatient Questions [...] Scheduled View Only Radiation Oncology at [address] [address] 05/02/2024 3:45 PM EST Scheduled View Only Radiation Oncology at [address] [address] 05/03/2024 1:45 PM EST Scheduled View Only Radiation Oncology at [address] [phone] 05/03/2024 2:15 PM EST Office Visit Radiation Oncology at [address] [address] Ofe Fonseca MD [facility] [place] [address] 05/05/2024 8:15 AM EST Scheduled View Only Radiation Oncology at [address] [address] 05/06/2024 12:30 PM EST Scheduled View Only Radiation Oncology at [address] [address] 05/09/2024 12:30 PM EST Scheduled View Only Radiation Oncology at [address] [address] 05/10/2024 2:30 PM EST Scheduled View Only Radiation Oncology at [address] [phone] 05/10/2024 3:15 PM EST Office Visit Radiation Oncology at [address] [address] Ofe Fonseca MD [facility] [place] [address] 05/11/2024 2:30 PM EST Scheduled View Only Radiation Oncology at [address] [address] 05/11/2024 3:15 PM EST Scheduled View Only Radiation Oncology at [address] [address] Ofe Fonseca MD [facility] RADIATION ONCOLOGY [place], [place] [address] 05/12/2024 2:45 PM EST Scheduled View Only Radiation Oncology at [address] [phone] 06/03/2024 3:30 PM EST Appointment Ultrasound at [place] [phone] Mira Hutchison [facility] [place] [address] 06/23/2024 4:00 PM EST Appointment Mammography/DXA at [place] [phone] Miryam Feliciano MD [facility] [place] [address] 07/12/2024 8:00 AM EDT Laboratory Appointment Lab [address] [place], [place] [phone] 07/12/2024 9:30 AM EDT Office Visit Nephrology Hypertension at [place] [phone] Sharmin Jean-Baptiste [facility] [place] [address] 07/13/2024 10:30 AM EDT Laboratory Appointment Lab at [facility] Hematology Oncology [address] [place] [phone] 07/13/2024 11:30 AM EDT Office Visit Hematology [place] [phone] Salena Alvares [facility] [place] [address] 07/13/2024 12:45 PM EDT Appointment Hematology [place] [address] documented as of this encounter Procedures Procedure Name Priority Date/Time Associated Diagnosis Comments MAMMO SPECIMEN LEFT Routine 02/05/2024 2 :24 PM EDT History of breast cancer documented in this encounter Results * Mammo Specimen Left (02/05/2024 2:24 PM EDT) WORKSTATION ID [id number] 1 RAD Anatomical Region Laterality Modality Breast [...] have questions please contact the health healthcare network pricing consultant that requested your imaging first. ? Electronically signed by: Aleida Bolanos MD, [facility] ([phone]), at 02/11/2024 11:11 AM [facility] Dr. Bey, DESI ??[id number] Mignon Dawson MD IMG MAMMO ORDERABLE S documented in this encounter Visit Diagnoses Diagnosis History of breast cancer Personal history of malignant neoplasm of breast documented in this encounter Care Teams Inventory Control Clerk Relationship Specialty Start Date [place] [address] PCP - General General Internal Medicine 08/04/22 documented as of this encounter
--- OUTSIDE RECORDS SUMMARY | 2024-04-29 01:52 | XMS_ITS | Encounter Summary ---
Author Organization [facility] [address] Care Team Providers Care Tank Pumper Panelboard Name Role Phone Haylie Steward MD Primary Care Provider + [phone] Encounter Details Date Type Department Care Team (Late st Contact Info) Description 03/01/2024 Telephone [place] [phone] Danelle Davis, RN Social History Tobacco Use [...] doctor or pharmacy? Rarely 02/15/2024 [facility] Utilities Answer Date Recorded In the past 12 months has [facility] [employer], gas, oil, or water [employer] threatened to shut off services in your [...] the past [address] [facility], were you homeless or living in a [...] Scheduled View Only Radiation Oncology at [address] [address] 05/02/2024 3:45 PM EST Scheduled View Only Radiation Oncology at [address] [address] 05/03/2024 1:45 PM EST Scheduled View Only Radiation Oncology at [address] [address] 05/03/2024 2:15 PM EST Office Visit Radiation Oncology at [address] [phone] Ofe Fonseca MD [facility] [place] [address] 05/05/2024 8:15 AM EST Scheduled View Only Radiation Oncology at [address] [address] 05/06/2024 12:30 PM EST Scheduled View Only Radiation Oncology at [address] [address] 05/09/2024 12:30 PM EST Scheduled View Only Radiation Oncology at [address] [phone] 05/10/2024 2:30 PM EST Scheduled View Only Radiation Oncology at [address] [address] 05/10/2024 3:15 PM EST Office Visit Radiation Oncology at [address] [phone] Ofe Fonseca MD [facility] [place] [address] 05/11/2024 2:30 PM EST Scheduled View Only Radiation Oncology at [address] [address] 05/11/2024 3:15 PM EST Scheduled View Only Radiation Oncology at [address] [phone] Ofe Fonseca MD [facility] [place] [address] 05/12/2024 2:45 PM EST Scheduled View Only Radiation Oncology at [address] [phone] 06/03/2024 3:30 PM EST Appointment Ultrasound at [place] [phone] Mira Hutchison PERSONNEL COORDINATOR [facility] [place] [address] 06/23/2024 4:00 PM EST Appointment Mammography/DXA at [place] [phone] Miryam Feliciano MD [facility] [place] [address] 07/12/2024 8:00 AM EDT Laboratory Appointment Lab [address] [place], [place] [phone] 07/12/2024 9:30 AM EDT Office Visit Nephrology Hypertension at [place] [phone] Sharmin Jean-Baptiste [facility] [place] [address] 07/13/2024 10:30 AM EDT Laboratory Appointment Lab at [facility] Hematology Oncology [address] [place] [phone] 07/13/2024 11:30 AM EDT Office Visit Hematology and Oncology at [place] [phone] Salena Alvares PERSONNEL COORDINATOR [facility] [place] [address] 07/13/2024 12:45 PM EDT Appointment Hematology [place] [phone] documented as of this encounter Visit Diagnoses Not on filedocumented in this encounter Care Teams Tank Pumper Panelboard Relationship Specialty Start Date End [place] [address] PCP - General General Internal Medicine 08/04/22 documented as of this encounter
--- OUTSIDE RECORDS SUMMARY | 2024-04-29 01:52 | XMS_ITS | Encounter Summary ---
Author Organization [facility] [place] [address] Care Team Providers Care Weatherization Field Technician Name Role Phone Haylie Steward MD Primary Care Provider + [phone] Encounter Details Date Type Department Care Team [...] from your doctor or pharmacy? Rarely 02/15/2024 [facility] Utilities Answer Date Recorded In [...] EST Scheduled View Only Radiation Oncology at [address] [phone] 05/02/2024 3:45 PM EST Scheduled View Only Radiation Oncology at [address] [phone] 05/03/2024 1:45 PM EST Scheduled View Only Radiation Oncology at [address] [phone] 05/03/2024 2:15 PM EST Office Visit Radiation Oncology at [address] [phone] Ofe Fonseca MD [facility] [place] [place] [address] 05/05/2024 8:15 AM EST Scheduled View Only Radiation Oncology at [address] [phone] 05/06/2024 12:30 PM EST Scheduled View Only Radiation Oncology at [address] [address] 05/09/2024 12:30 PM EST Scheduled View Only Radiation Oncology at [address] [address] 05/10/2024 2:30 PM EST Scheduled View Only Radiation Oncology at [address] [address] 05/10/2024 3:15 PM EST Office Visit Radiation Oncology at [address] [address] Ofe Fonseca MD [facility] [place] [address] 05/11/2024 2:30 PM EST Scheduled View Only Radiation Oncology at [address] [address] 05/11/2024 3:15 PM EST Scheduled View Only Radiation Oncology at [address] [phone] Ofe Fonseca MD [facility] [place] [address] 05/12/2024 2:45 PM EST Scheduled View Only Radiation Oncology at [address] [address] 06/03/2024 3:30 PM EST [place] [address] Miar Hutchison APRN [facility] [place] [address] 06/23/2024 4:00 PM EST Appointment Mammography/DXA at [place] [address] Miryam Feliciano MD [facility] [place] [address] 07/12/2024 8:00 AM EDT Laboratory Appointment Lab [address] [address] 07/12/2024 9:30 AM EDT Office Visit Nephrology Hypertension at [place] [address] Sharmin Jean-Baptiste, [facility] [place] [address] 07/13/2024 10:30 AM EDT Laboratory Appointment Lab at [facility] Hematology Oncology [address] [place] [address] 07/13/2024 11:30 AM EDT Office Visit Hematology and Oncology at [place] [address] Salena Alvares, [facility] [place] [address] 07/13/2024 12:45 PM EDT Appointment Hematology and Oncology at [place] [address] documented as of this encounter Visit Diagnoses Not on filedocumented in this encounter Care Teams Weatherization Field Technician Relationship Specialty Start Date End Date Haylie Steward MD [facility] [place] [address] PCP - General General Internal Medicine 08/04/22 documented as of this encounter
--- OUTSIDE RECORDS SUMMARY | 2024-04-29 01:52 | XMS_ITS | Encounter Summary ---
[place] [address] Care Team Providers Care Transcribing Operators Supervisor Name Role Phone Haylie Steward MD Primary Care Provider [phone] Encounter Details Date Type Department Care Team (Late st Contact Info) Description 02/29/2024 2:05 PM EDT Anesthesia Event [place] [phone] Obdulio Herring MD [facility] [place] [address] Ann Pugh CRNA [facility] [place] [address] Anesthesia Record Procedure Summary Procedure Name Responsible [...] any time in the past 12 m [facility], were you homeless or [...] Procedure Summary Date: 02/29/24 Room / Location: [address] [facility] Anesthesia Start: 1405 Anesthesia Stop: 1556 Procedures: MASTECTOMY PARTIAL (WRVU 10.13) (Left: Breast) MODIFIER , RE-EXCISION MODIFIER MAGSEED (Left: Breast) Diagnosis: (BREAST CANCER) Surgeons: Hailey Dawson MD Responsible Provider: Obdulio Herrnig MD Anesthesia Type: general ASA Status: 2 All Anesthesia Providers: Anesthesiologist: Obdulio Herring MD CUSTOMER ADVISOR SPECIALIST: Ann Pugh CRNA Vitals Value Taken Time BP 142/85 02/29/24 1615 Temp 36 ??C (96.8 ??F) 02/29/24 1553 Pulse 77 02/29/24 1630 Resp 15 02/29/24 1615 SpO2 99 % 02/29/24 1630 Pain Level 4 02/29/24 1630 Patient Location: PACU/[facility] Level of Consciousness: Awake and Alert [...] of left breast in female, estrogen receptor uhrzlayj15/17/2024 ??? Bipolar 1 disorder 07/15/2023 ??? [place] intoxication, accidental or unintentional, initial encounter 09/06/2022 [...] Placement Multiple Left 02/01/2024 Martha Martino MD [facility] RAD MAMMOGRAPHY ??? MAMMO US BIOPSY LEFT Left 01/14/2024 Mammo Us Biopsy Left 01/14/2024 ??? MAMMO US BIOPSY MULTIPLE LEFT Left 02/01/2024 Mammo US Biopsy Multiple Left 02/01/2024 Martha Martino MD [facility] RAD MAMMOGRAPHY ??? PRO BX/REMV, LYMPH NODE, DEEP AXILL Left 02/05/2024 BIOPSY OR EXCISION OF LYMPH NODE(S), OPEN, DEEP AXILLARY NODE(S) (WRVU 6.43) performed by Hailey Dawson MD at [facility] OSC ??? PRO COLONOSCOPY, BIOPSY N/A 06/11/2023 COLONOSCOPY FLEXIBLE, WITH BX (WRVU 3.56) performed by Jack Page MD at [facility] ENDOSCOPY ??? PRO INTRAOP SENTINEL LYMPH ID W/DYE INJECTION Left 02/05/2024 INTRAOPERATIVE ID (MAPPING) SENTINEL LYMPH NODE,INCLUDES INJECTION (WRVU 2.5) performed by Hailey Dawson MD at [facility] O[facility] ??? PRO MASTECTOMY PARTIAL Left 02/05/2024 MASTECTOMY PARTIAL (WRVU 10.13) performed by Hailey Dawson MD at [facility] ??? PRO UPPER GI ENDOSCOPY, BIOPSY N/A 06/11/2023 EGD WITH BIOPSY (WRVU 2.39) performed by Jack Page MD at [facility] ENDOSCOPY ??? TOE SURGERY Social History Tobacco Use ??? Smoking status: Never ??? Smokeless tobacco: Never Substance Use Topics ??? Alcohol use: Not Currently Social History Substance and Sexual Activity Drug Use Never Allergies Allergen Reactions ??? Nsaids (Non-Steroidal Anti-Inflammatory Drug) All interfere with lithium ??? Tolmetin All interfere with lithium ??? Ibuprofen Patient states it affects her bipolar medication [place]. Medications: MAR and/or home medications have been [...] risks discussed with patient. Plan discussed with CUSTOMER ADVISOR SPECIALIST and attending. Anesthesia Screening documented in this encounter Plan of Treatment Upcoming Encounters Date Type Department Care Team (Latest Contact Info) Description 04/29/2024 3:00 PM EST Scheduled View Only Radiation Oncology at [address] [phone] 05/02/2024 3:45 PM EST Scheduled View Only Radiation Oncology at [address] [address] 05/03/2024 1:45 PM EST Scheduled View Only Radiation Oncology at [address] [phone] 05/03/2024 2:15 PM EST Office Visit Radiation Oncology at [address] [phone] Ofe Fonseca MD [facility] [place] [address] 05/05/2024 8:15 AM EST Scheduled View Only Radiation Oncology at [address] [address] 05/06/2024 12:30 PM EST Scheduled View Only Radiation Oncology at [address] [address] 05/09/2024 12:30 PM EST Scheduled View Only Radiation Oncology at [address] [phone] 05/10/2024 2:30 PM EST Scheduled View Only Radiation Oncology at [address] [address] 05/10/2024 3:15 PM EST Office Visit Radiation Oncology at [address] [address] Ofe Fonseca MD [facility] [place] [address] 05/11/2024 2:30 PM EST Scheduled View Only Radiation Oncology at [address] [address] 05/11/2024 3:15 PM EST Scheduled View Only Radiation Oncology at [address] [address] Ofe Fonseca MD [facility] [place] [address] 05/12/2024 2:45 PM EST Scheduled View Only Radiation Oncology at [address] [address] 06/03/2024 3:30 PM EST Appointment Ultrasound at [place] [phone] Mira Hutchison APRN [facility] [place] [address] 06/23/2024 4:00 PM EST Appointment Mammography/[place] [address] Miryam Feliciano MD [facility] [place] [address] 07/12/2024 8:00 AM EDT Laboratory Appointment Lab [address] [phone] 07/12/2024 9:30 AM EDT Office Visit Nephrology [place] [address] Sharmin Jean-Baptiste, [facility] [place] [address] 07/13/2024 10:30 AM EDT Laboratory Appointment Lab at [facility] [place]ematology Oncology [address] [place] [phone] 07/13/2024 11:30 AM EDT Office Visit Hematology [place] [address] Salena Alvares [facility] [place] [address] 07/13/2024 12:45 PM EDT Appointment Hematology [place] [address] documented as of this encounter Visit Diagnoses [...] mg documented in this encounter Care Teams Transcribing Operators Supervisor Relationship Specialty Start Date End Date Haylie [place] [address] [place] [address] PCP - General General Internal Medicine 08/04/22 documented as of this encounter
--- OUTSIDE RECORDS SUMMARY | 2024-04-29 01:52 | XMS_ITS | Encounter Summary ---
Author Organization [facility] [place] [address] Care Team Providers Care Tree Worker Name Role Phone Haylie Steward MD Primary Care Provider [phone] Encounter Details Date Type Department Care Team (Late st Contact Info) Description 02/05/2024 12:40 PM EDT - 02/05/2024 2:37 PM EDT Surgery [facility] [place] [address] Mignon Dawosn MD [facility] GENERAL [place] [address] MASTECTOMY PARTIAL (WRVU 10.13) Social History Tobacco [...] shower 24 hours Activity as tolerated Call [phone] with any questions Do not soak incision [...] closest emergency room or call the hospital electron beam operator at [phone] and ask for physician customer care consultant covering for your physician. Questions or problems after 5pm or on a weekend: Call the [facility] electron beam operator at and ask for the physician customer care consultant covering for your doctor. 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 Given breast density, [...] salivary gland cancer SH: non smoker. 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 [...] Dawson MD - 02/05/2024 1:40 PM EDT [facility] Operative Note Patient Name: Nataliya Morfin : [id number] MR#: [id number] Case Date: 02/05/2024 Surgeon: Surgeons and Role: * Mingon Dawson MD - Primary * Jurgen Bell [...] Dawson MD 02/05/2024 1430 3 : Left Butternut Node Tissue Butternut Lymph Node SURGICAL PATHOLOGY Mignon Dawson MD [...] EST Scheduled View Only Radiation Oncology at [address] [address] 05/02/2024 3:45 PM EST Scheduled View Only Radiation Oncology at [address] [address] 05/03/2024 1:45 PM EST Scheduled View Only Radiation Oncology at [address] [address] 05/03/2024 2:15 PM EST Office Visit Radiation Oncology at [address] [address] Ofe Fonseca MD [facility] [place] [address] 05/05/2024 8:15 AM EST Scheduled View Only Radiation Oncology at [address] [address] 05/06/2024 12:30 PM EST Scheduled View Only Radiation Oncology at [address] [address] 05/09/2024 12:30 PM EST Scheduled View Only Radiation Oncology at [address] [address] 05/10/2024 2:30 PM EST Scheduled View Only Radiation Oncology at [address] [address] 05/10/2024 3:15 PM EST Office Visit Radiation Oncology at [address] [address] Ofe Fonseca MD [facility] RADIATION [place] [address] 05/11/2024 2:30 PM EST Scheduled View Only Radiation Oncology at [address] [address] 05/11/2024 3:15 PM EST Scheduled View Only Radiation Oncology at [address] [phone] Ofe Fonseca MD [facility] [place] [address] 05/12/2024 2:45 PM EST Scheduled View Only Radiation Oncology at [address] [phone] 06/03/2024 3:30 PM EST Appointment Ultrasound at [place] [phone] Mira Hutchison JOWL TRIMMER [facility] [place] [address] 06/23/2024 4:00 PM EST Appointment Mammography/DXA at [place] [phone] Miryam Feliciano MD [facility] [place] [address] 07/12/2024 8:00 AM EDT Laboratory Appointment Lab [address] [place], [place] [phone] 07/12/2024 9:30 AM EDT Office Visit Nephrology Hypertension at [place] [phone] Sharmin Jean-Baptiste [facility] [place] [address] 07/13/2024 10:30 AM EDT Laboratory Appointment Lab at [facility] Hematology Oncology [address] [place] [phone] 07/13/2024 11:30 AM EDT Office Visit Hematology and Oncology at [place] [phone] Salena Alvares APRN [facility] [place] [address] (work) 07/13/2024 12:45 PM EDT Appointment Hematology and Oncology at [place] [phone] documented as of this encounter Procedures Procedure Name Priority Date/Time Associated Diagnosis Comments SURGICAL PATHOLOGY Routine 02/05/2024 2: 03 PM EDT MODIFIER MAGSEED Yes 02/05/2024 1:12 PM EDT breast cancer Intraop Butternut Lymph Id W/Dye Injection (55593) Yes 02/05/2024 1:12 PM EDT breast cancer Bx/Remv, Lymph Node, Deep Axill (40905) Yes 02/05/2024 1:12 PM EDT breast cancer Mastectomy Partial (67065) Yes 02/05/2024 1:12 PM EDT breast cancer documented in this encounter Results * Surgical Pathology (02/05/2024 2:03 PM EDT) Case Report Surgical Pathology Report ? Case: [id number] ? Authorizing Provider: ??Mignon Dawson MD ? Collected: ? 02/05/2024 1403 ? Ordering Location: ? [facility] ??Received: ?02/05/2024 145 ? [facility] ? Hospital ? Pathologist: ? Tati Wilkins, DO ? Specimens: ?? A) - Breast, Left, left partial breast mastectomy ? B) - Breast, Left, left breast tissue lesion 1 ? C) - Butternut Lymph Node, Left Butternut Node ? 02/18/2024 11:55 AM EDT [facility] Final Diagnosis A. Breast, left. partial [...] for malignancy. (0/2) 02/18/2024 11:55 AM EDT [facility] Synoptic Report INVASIVE CARCINOMA [...] (sentinel and non-sentinel): ?2 ? Number of Butternut Nodes Examined: ?2 pTNM CLASSIFICATION (AJCC 8th [...] N Suffix: ?(sn) 02/18/2024 11:55 AM EDT [facility] Clinical Information A. Breast, Left, left partial breast mastectomy *Other - as specified in Clinical Information Left partial breast mastectomy Clin info-breast cancer B. Breast, Left, left breast tissue lesion 1 *Other - as specified in Clinical Information left breast tissue lesion 1 Clin info-Breast cancer C. Butternut Lymph Node, Left Butternut Node *Other - as specified in Clinical Information Left Butternut Node 02/18/2024 11:55 AM T [facility] Gross Description A. Breast, Left, left [...] #2 A4-A5: Bisected slice #3 to include merchandising representative mass in block A5 A6-A7: Bisected slice #4 to include merchandising representative mass and the site containing the [...] #3 B5-B6: Bisected slice #4 to include merchandising representative mass B7-B8: Bisected slice #5 to include merchandising representative mass and the site containing the biopsy clip B9: Perpendicular sections of the lateral margin C. Butternut Lymph Node, Left Butternut Node. C - Labeled/Fixative: Butternut lymph node, left, fresh. Quantity/Size: Two, 0.5 x 0.4 x 0.4 cm and 0.7 x 0.4 x 0.3 cm. Tissue Description: Adipose tissue with two, up to 0.7 x 0.4 x 0.3 cm. Sections/Processi ng: Entirely submitted in 2 cassettes as follows: C1: Smaller bisected candidate lymph node C2: Larger bisected candidate lymph node CAK 02/18/2024 11:55 AM EDT [facility] Result Note Routine 02/18/2024 11:55 AM EDT [facility] Tissue LEFT BREAST STRUCTURE [...] PM EDT 02/05/2024 3:12 PM EDT Comment:Left Butternut Node Mignon Dawson MD PATHOLOGY/CYTOLOGY [place] [address] documented in this encounter Visit Diagnoses Not [...] Routine documented in this encounter Care Teams Tree Worker Relationship Specialty Start Date End Date Haylie Steward MD [facility] [place] [address] PCP - General General Internal Medicine 08/04/22 documented as of this encounter
--- OUTSIDE RECORDS SUMMARY | 2024-04-29 01:52 | XMS_ITS | Encounter Summary ---
Author Organization [facility] [place] [address] Care Team Providers Care Yarn Dry Room Worker Name Role Phone Haylie Steward MD Primary Care Provider [phone] Encounter Details Date Type Department Care Team (Latest Contact Info) Description 02/29/2024 1:00 PM EDT - 02/29/2024 4:42 PM EDT Hospital Encounter [place] [address] Mignon Dawson MD [facility] [place] [address] Discharge Disposition: Home Social History Tobacco Use [...] doctor or pharmacy? Rarely 02/15/2024 [facility] Utilities Answer Date Recorded In the past [...] in the past 12 m [facility], were you homeless or living in a [...] closest emergency room or call the hospital muffle operator at [phone] and ask for physician concrete smoother covering for your physician. Questions or problems after 5pm or on a weekend: Call the [facility] muffle operator at and ask for the physician concrete smoother covering for your doctor. You received 15 mg of Toradol at 2 pm. Your next dose should not be taken before 8 pm today. 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 Given breast density, [...] salivary gland cancer SH: non smoker. 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 . [...] Dawson MD - 02/29/2024 2:27 PM EDT [facility] [place] Patient Name: Nataliya Morfin : [id number] MR#: [id number] Case Date: 02/29/2024 Surgeon: Surgeons and Role: [...] Scheduled View Only Radiation Oncology at [address] [phone] 05/02/2024 3:45 PM EST Scheduled View Only Radiation Oncology at [address] [phone] 05/03/2024 1:45 PM EST Scheduled View Only Radiation Oncology at [address] [address] 05/03/2024 2:15 PM EST Office Visit Radiation Oncology at [address] [address] Ofe Fonseca MD [facility] [place] [address] 05/05/2024 8:15 AM EST Scheduled View Only Radiation Oncology at [address] [phone] 05/06/2024 12:30 PM EST Scheduled View Only Radiation Oncology at [address] [phone] 05/09/2024 12:30 PM EST Scheduled View Only Radiation Oncology at [address] [address] 05/10/2024 2:30 PM EST Scheduled View Only Radiation Oncology at [address] [phone] 05/10/2024 3:15 PM EST Office Visit Radiation Oncology at [address] [phone] Ofe Fonseca MD [facility] [place] [address] 05/11/2024 2:30 PM EST Scheduled View Only Radiation Oncology at [address] [phone] 05/11/2024 3:15 PM EST Scheduled View Only Radiation Oncology at [address] [phone] Ofe Fonseca MD [facility] [place] [address] 05/12/2024 2:45 PM EST Scheduled View Only Radiation Oncology at [address] [phone] 06/03/2024 3:30 PM EST Appointment Ultrasound at [place] [phone] Mira Hutchison APRN [facility] [place] [address] 06/23/2024 4:00 PM EST Appointment Mammography/[place] [phone] Miryam Feliciano MD [facility] [place] [address] 07/12/2024 8:00 AM EDT Laboratory Appointment Lab [address] [phone] 07/12/2024 9:30 AM EDT Office Visit Nephrology [place] [address] Sharmin Jean-Baptiste, [facility] [place] [address] 07/13/2024 10:30 AM EDT Laboratory Appointment Lab at [facility] [place] On[place] [address] [place] [phone] 07/13/2024 11:30 AM EDT Office Visit Hematology [place] [address] Salena Alvares [facility] [place] [address] 07/13/2024 12:45 PM EDT Appointment Hematology [place] [address] documented as of this encounter [...] 2:07 PM EDT BREAST CANCER Mastectomy Partial (22416) Yes 02/29/2024 2:07 PM EDT BREAST CANCER documented in this encounter Results * XR Fluoro No Rad <1Hr - OR Use (02/29/2024 3:25 PM EDT) Narrative Dicom, Auditing User - 02/29/2024 3:58 PM EDT This exam is auto-finalizing. No interpretation was done. Mignon Dawson MD IMG FLUORO ORDERABL ES * Mammo Specimen Left (02/29/2024 3:20 PM EDT) WORKSTATION ID [id number] 1 [facility] Anatomical Region Laterality Modality Breast Left [...] questions please contact the health respiratory care program director that requested your imaging first. ? [facility] [address] [place], [place] ??[address] Mignon Dawson MD IM MAMMO ORDERABLE S * Surgical Pathology (02/29/2024 3:16 PM EDT) Case Report Surgical Pathology Report ? Case: [id number] ? Authorizing Provider: ??Mignon Dawson MD ? Collected: ? 02/29/2024 1516 ? Ordering Location: ? [facility] ??Received: ?02/29/2024 1538 ? [facility] Hospital ? Pathologist: ? Sil Maguire MD ? Specimens: ?? A) - Breast, Left, Left breast partial mastectomy lesion 3 ? B) - Breast, Left, Margin, Lateral Margin of Left Breast Lesion 1 ? C) - Breast, Left, Margin, Posterior Margin of Left Breast Lesion 1 ? 03/15/2024 4:06 PM EST [facility] Final Diagnosis A. Breast, [...] hyperplasia, negative for malignancy. 03/15/2024 4:06 PM [facility] Additional Studies Task ID IHC/Special Stains Result A2-2 Calponin Positive A5-2 Calponin Positive A10-2 Calponin Positive A13-2 Calponin Positive A14-2 Calponin Positive A15-2 Calponin Positive B3-2 p63 Positive B3-3 Calponin Positive C2-2 CK5 Positive in area of interest C2-3 ER (Clone SP1) Patchy positive in area of interest 03/15/2024 4:06 PM [facility] Disclaimer(s) Formalin-fixed, paraffin-embedded tissue sections [...] and other diagnostic tests. 03/15/2024 4:06 PM [facility] Clinical Information A. Breast, Left, Left breast partial mastectomy lesion 3 Known malignancy - as specified in Clinical Information BREAST CANCER Left breast partial mastectomy lesion 3 03/15/2024 4:06 PM [facility] Gross Description A. Breast, Left, [...] Additional separate fragmented tissue 03/15/2024 4:06 PM EST [facility] Result Note Routine 03/15/2024 4:06 PM [facility] Tissue LEFT BREAST STRUCTURE / [...] Lesion 1 Mignon Dawson MD PATHOLOGY/CYTOLOGY ORDERABLES [facility] [place] [address] documented in this encounter Visit Diagnoses Not [...] at 1310, Until Thu02/29/24 at 1848, Maya Solomon.: cabinet override 1315 (Due) documented in this encounter Care Teams Yarn Dry Room Worker Relationship Specialty Start Date End Date Haylie Steward MD [facility] [place] [address] PCP - General General Internal Medicine 08/04/22 documented as of this encounter
--- OUTSIDE RECORDS SUMMARY | 2024-04-29 01:52 | XMS_ITS | Encounter Summary ---
Author Organization [facility] [place] [place] [address] Care Team Providers Care Facility Supervisor Name Role Phone Haylie Steward MD Primary Care Provider + [phone] Encounter Details Date Type Department Care Team (Late st Contact Info) Description 02/11/2024 Notes Only Hematology [place] [address] [facility] [place] [address] Social History Tobacco Use Types Packs/Day Years [...] things needed for daily living? No 01/20/2024 [facility] Inpatient Questions Answer Date [...] 4+ nodes ER [] Negative [x] Positive NM [] Negative [x] Positive HER2 [x] Negative [...] Scheduled View Only Radiation Oncology at [address] [address] 05/02/2024 3:45 PM EST Scheduled View Only Radiation Oncology at [address] [phone] 05/03/2024 1:45 PM EST Scheduled View Only Radiation Oncology at [address] [phone] 05/03/2024 2:15 PM EST Office Visit Radiation Oncology at [address] [phone] [facility] [place] [address] 05/05/2024 8:15 AM EST Scheduled View Only Radiation Oncology at [address] [address] 05/06/2024 12:30 PM EST Scheduled View Only Radiation Oncology at [address] [address] 05/09/2024 12:30 PM EST Scheduled View Only Radiation Oncology at [address] [phone] 05/10/2024 2:30 PM EST Scheduled View Only Radiation Oncology at [address] [phone] 05/10/2024 3:15 PM EST Office Visit Radiation Oncology at [address] [phone] [facility] [place] [address] 05/11/2024 2:30 PM EST Scheduled View Only Radiation Oncology at [address] [phone] 05/11/2024 3:15 PM EST Scheduled View Only Radiation Oncology at [address] [phone] [facility] [place] [address] 05/12/2024 2:45 PM EST Scheduled View Only Radiation Oncology at [address] [phone] 06/03/2024 3:30 PM EST Appointment [place] [phone] [facility] [place] [address] 06/23/2024 4:00 PM EST Appointment Mammography/[place] [address] [facility] [place] [place] [address] 07/12/2024 8:00 AM EDT Laboratory Appointment Lab [address] [address] 07/12/2024 9:30 AM EDT Office Visit Nephrology Hypertension at [place] [phone] Sharmin Jean-Baptiste, [facility] [place] [address] 07/13/2024 10:30 AM EDT Laboratory Appointment Lab at [facility] Hematology Oncology [address] [place], [place] [phone] 07/13/2024 11:30 AM EDT Office Visit Hematology and Oncology at [place] [phone] Salena Alvares, [facility] [place] [address] 07/13/2024 12:45 PM EDT Appointment Hematology and Oncology at [place] [phone] documented as of this encounter Visit Diagnoses Not on filedocumented in this encounter Care Teams Facility Supervisor Relationship Specialty Start Date End Date Haylie Steward MD [facility] [place] [address] PCP - General General Internal Medicine 08/04/22 documented as of this encounter
--- OUTSIDE RECORDS SUMMARY | 2024-04-29 01:52 | XMS_ITS | Encounter Summary ---
[place] [address] Care Team Providers Care Jukebox Routeman Name Role Phone Haylie Steward MD Primary Care Provider + [phone] Encounter Details Date Type Department Care Team (Late st Contact Info) Description 02/05/2024 1:12 PM EDT Anesthesia Event [place] [address] Betsy Alcaraz MD [facility] [place] [address] Anesthesia Record Procedure Summary Procedure Name Responsible [...] by Estelle Danielle RN PIV 02/05/24; 1220; mjge-zzi-vmfwrv catheter system; 20 gauge; Anatomical Landmarks; emk; [...] Procedure Summary Date: 02/05/24 [place] / [place] [facility] [place] [address] [place] [address] OSC Anesthesia Start: 1312 Anesthesia Stop: 151 [...] All Anesthesia Providers: Anesthesiologist: Betsy Alcaraz MD LAB SYSTEMS ANALYST: Nicole Maza CRNA Vitals Value Taken Time BP 158/79 02/05/24 1545 Temp 36 ??C (96.8 ??F) 02/05/24 1505 Pulse 71 02/05/24 1552 Resp 20 02/05/24 1530 SpO2 100 % 02/05/24 1552 Pain Level 7 02/05/24 1547 Vitals shown include unfiled device data. Patient Location: PACU/[facility] Level of Consciousness: Awake and Alert Pain [...] of left breast in female, estrogen receptor pclzulqt42/17/2024 ??? Bipolar 1 disorder 07/15/2023 ??? Topanga intoxication, accidental or unintentional, initial encounter 09/06/2022 [...] Placement Multiple Left 02/01/2024 Martha Martino MD [facility] RAD MAMMOGRAPHY ??? MAMMO US BIOPSY LEFT Left 01/14/2024 Mammo Us Biopsy Left 01/14/2024 ??? PRO COLONOSCOPY, BIOPSY N/A 06/11/2023 COLONOSCOPY FLEXIBLE, WITH BX (WRVU 3.56) performed by Jack Page MD at [facility] ENDOSCOPY ??? PRO UPPER GI ENDOSCOPY, BIOPSY N/A 06/11/2023 EGD WITH BIOPSY (WRVU 2.39) performed by Jack Page MD at [facility] ENDOSCOPY ??? TOE SURGERY Social History [...] Patient states it affects her bipolar medication Topanga. Medications: MAR and/or home medications have been [...] risks discussed with patient. Plan discussed with LAB SYSTEMS ANALYST and attending. Anesthesia Screening documented in this encounter Miscellaneous Notes * Addendum Note - Nicole Maza CRNA - 02/05/2024 4:23 PM EDT Addendum created 02/05/24 1623 by Nicole Maza CRNA Intraprocedure Meds edited documented in this encounter Plan of Treatment Upcoming Encounters Date Type Department Care Team (Latest Contact Info) Description 04/29/2024 3:00 PM EST Scheduled View Only Radiation Oncology at [address] [phone] 05/02/2024 3:45 PM EST Scheduled View Only Radiation Oncology at [address] [phone] 05/03/2024 1:45 PM EST Scheduled View Only Radiation Oncology at [address] [address] 05/03/2024 2:15 PM EST Office Visit Radiation Oncology at [address] [address] Ofe Fonseca MD [facility] [place] [address] 05/05/2024 8:15 AM EST Scheduled View Only Radiation Oncology at [address] [address] 05/06/2024 12:30 PM EST Scheduled View Only Radiation Oncology at [address] [address] 05/09/2024 12:30 PM EST Scheduled View Only Radiation Oncology at [address] [address] 05/10/2024 2:30 PM EST Scheduled View Only Radiation Oncology at [address] [address] 05/10/2024 3:15 PM EST Office Visit Radiation Oncology at [address] [address] Ofe Fonseca MD [facility] [place] [place] [address] 05/11/2024 2:30 PM EST Scheduled View Only Radiation Oncology at [address] [address] 05/11/2024 3:15 PM EST Scheduled View Only Radiation Oncology at [address] [address] Ofe Fonseca MD [facility] [place] [address] 05/12/2024 2:45 PM EST Scheduled View Only Radiation Oncology at [address] [phone] 06/03/2024 3:30 PM EST Appointment Ultrasound at [place] [phone] Mira Hutchison, [facility] [place] [address] 06/23/2024 4:00 PM EST Appointment Mammography/DXA at [place] [phone] Miryam Feliciano MD [facility] [place] [address] 07/12/2024 8:00 AM EDT Laboratory Appointment Lab [address] [place], [place] [phone] 07/12/2024 9:30 AM EDT Office Visit Nephrology Hypertension at [place] [phone] Sharmin Jean-Baptiste, [facility] [place] [address] 07/13/2024 10:30 AM EDT Laboratory Appointment Lab at [facility] Hematology Oncology [address] [phone] 07/13/2024 11:30 AM EDT Office Visit [place]ematology [place] [address] Salena Alvares, [facility] [place] [address] 07/13/2024 12:45 PM EDT Appointment Hematology [place] [address] documented as of this encounter [...] mg documented in this encounter Care Teams Jukebox Routeman Relationship Specialty Start Date End Date Haylie Steward MD [facility] [place] [address] PCP - General General Internal Medicine 08/04/22 documented as of this encounter
--- OUTSIDE RECORDS SUMMARY | 2024-04-29 01:52 | XMS_ITS | Encounter Summary ---
Author Organization [facility] Address [facility] [place] [address] Care Team Providers Care Patrol Judge Name Role Phone Haylie Steward MD Primary Care Provider [phone] Encounter Details Date Type Department Care Team (Latest Contact Info) Description 02/05/2024 12:30 PM EDT - 02/05/2024 11:59 PM EDT Hospital Encounter [place] [address] Mignon Dawson MD [facility] [place] [address] History of breast cancer Discharge Disposition: Home [...] things needed for daily living? No 01/20/2024 [facility] Inpatient Questions Answer Date Recorded [...] Scheduled View Only Radiation Oncology at [address] [phone] 05/02/2024 3:45 PM EST Scheduled View Only Radiation Oncology at [address] [address] 05/03/2024 1:45 PM EST Scheduled View Only Radiation Oncology at [address] [address] 05/03/2024 2:15 PM EST Office Visit Radiation Oncology at [address] [phone] [facility] [place] [address] 05/05/2024 8:15 AM EST Scheduled View Only Radiation Oncology at [address] [address] 05/06/2024 12:30 PM EST Scheduled View Only Radiation Oncology at [address] [address] 05/09/2024 12:30 PM EST Scheduled View Only Radiation Oncology at [address] [address] 05/10/2024 2:30 PM EST Scheduled View Only Radiation Oncology at [address] [address] 05/10/2024 3:15 PM EST Office Visit Radiation Oncology at [address] [phone] [facility] [place] [address] 05/11/2024 2:30 PM EST Scheduled View Only Radiation Oncology at [address] [address] 05/11/2024 3:15 PM EST Scheduled View Only Radiation Oncology at [address] [address] [facility] RADIATION ONCOLOGY [place] [address] 05/12/2024 2:45 PM EST Scheduled View Only Radiation Oncology at [address] [phone] 06/03/2024 3:30 PM EST Appointment Ultrasound at [place] [phone] Mira Hutchison [facility] [address] 06/23/2024 4:00 PM EST Appointment Mammography/DXA at [place] [phone] [facility] [place] [address] 07/12/2024 8:00 AM EDT Laboratory Appointment Lab [address] [place], [place] [phone] 07/12/2024 9:30 AM EDT Office Visit Nephrology Hypertension at [place] [phone] Sharmin Jean-Baptiste [facility] [place] [address] 07/13/2024 10:30 AM EDT Laboratory Appointment Lab at [facility] Hematology Oncology [address] [place] [phone] 07/13/2024 11:30 AM EDT Office Visit Hematology [place] [phone] Salena Alvares [facility] [place] [address] 07/13/2024 12:45 PM EDT Appointment Hematology [place] [address] documented as of this encounter Procedures Procedure [...] who have questions please contact the health child care nurse that requested your imaging first. ? [facility] [address] [place], [place] ??[address] Mignon Dawson MD IMG MAMMO ORDERABLE S documented in this encounter Visit Diagnoses Diagnosis History of breast cancer Personal history of malignant neoplasm of breast documented in this encounter Care Teams Patrol Judge Relationship Specialty Start Date End Date Haylie Steward MD [facility] [address] PCP - General General Internal Medicine 08/04/22 documented as of this encounter
--- OUTSIDE RECORDS SUMMARY | 2024-04-29 01:52 | XMS_ITS | Encounter Summary ---
Author Organization [facility] [place] [address] Care Team Providers Care Institution Librarian Name Role Phone Haylie Steward MD Primary Care Provider [phone] Encounter Details Date Type Department Care Team (Late st Contact Info) Description 02/29/2024 2:30 PM EDT - 02/29/2024 3:48 PM EDT Surgery [place] [address] Mignon Dawson MD [facility] [place] [address] MASTECTOMY PARTIAL (WRVU 10.13) Social History Tobacco [...] from your doctor or pharmacy? Rarely 02/15/2024 [facility] Utilities Answer Date Recorded In [...] closest emergency room or call the hospital tilting saw operator at [phone] and ask for physician stoneworking sander covering for your physician. Questions or problems after 5pm or on a weekend: [facility] tilting saw operator at and ask for the physician stoneworking sander covering for your doctor. You received 15 mg of Toradol at 2 pm. Your next dose should not be taken before 8 pm today. Okay to shower 24 hours Activity as tolerated Call [phone] with any questions Do not soak incision [...] Admit date: (Not on file) Attending Physician: Mingon Dawson MD HPI Nataliya is a 48 [...] was suspicious and biopsy confirmed low grade ER/MS+ IDC , her2 negative. Given breast density, [...] salivary gland cancer SH: non smoker. 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 . [...] Dawson MD - 02/29/2024 2:27 PM EDT [facility] Operative Note Patient Name: Nataliya Morfin : [id number] MR#: [id number] Case Date: 02/29/2024 Surgeon: Surgeons and Role: [...] Scheduled View Only Radiation Oncology at [address] [address] 05/02/2024 3:45 PM EST Scheduled View Only Radiation Oncology at [address] [address] 05/03/2024 1:45 PM EST Scheduled View Only Radiation Oncology at [address] [address] 05/03/2024 2:15 PM EST Office Visit Radiation Oncology at [address] [address] Ofe Fonseca MD [facility] DR [place] [address] 05/05/2024 8:15 AM EST Scheduled View Only Radiation Oncology at [address] [address] 05/06/2024 12:30 PM EST Scheduled View Only Radiation Oncology at [address] [address] 05/09/2024 12:30 PM EST Scheduled View Only Radiation Oncology at [address] [address] 05/10/2024 2:30 PM EST Scheduled View Only Radiation Oncology at [address] [address] 05/10/2024 3:15 PM EST Office Visit Radiation Oncology at [address] [address] Ofe Fonseca MD [facility] [place] [address] 05/11/2024 2:30 PM EST Scheduled View Only Radiation Oncology at [address] [address] 05/11/2024 3:15 PM EST Scheduled View Only Radiation Oncology at [address] [address] Ofe Fonseca MD [facility] [place] [address] 05/12/2024 2:45 PM EST Scheduled View Only Radiation Oncology at [address] [address] 06/03/2024 3:30 PM EST Appointment Ultrasound at [place] [phone] Mira Hutchison APRN [facility] [place] [place] [address] 06/23/2024 4:00 PM EST Appointment Mammography/[place] [phone] Miryam Feliciano MD [facility] [place] [address] 07/12/2024 8:00 AM EDT Laboratory Appointment Lab [address] [phone] 07/12/2024 9:30 AM EDT Office Visit Ne[place] [address] Sharmin Jean-Baptiste, [facility] [place] [address] 07/13/2024 10:30 AM EDT Laboratory Appointment Lab at [facility] Hematology Oncology [address] [place] [phone] 07/13/2024 11:30 AM EDT Office Visit Hematology [place] [phone] Salena Alvares, [facility] [place] [address] 07/13/2024 12:45 PM EDT Appointment Hematology [place] [phone] documented as of this encounter Procedures Procedure [...] 2:07 PM EDT BREAST CANCER Mastectomy Partial (66193) Yes 02/29/2024 2:07 PM EDT BREAST CANCER documented in this encounter Results * XR Fluoro No Rad <1Hr - OR Use (02/29/2024 3:25 PM EDT) Narrative Dicom, Auditing User - 02/29/2024 3:58 PM EDT This exam is auto-finalizing. No interpretation was done. Mignon Dawson MD IMG FLUORO ORDERABL ES * Mammo Specimen Left (02/29/2024 3:20 PM EDT) WORKSTATION ID [id number] 1 [facility] Anatomical Region Laterality Modality Breast Left Mammography [...] have questions please contact the health home health care provider that requested your imaging first. ? Electronically signed by: Martha Martino MD, [facility] ([phone]), at 02/29/2024 4:[address] [facility] [address] [place], [place] ??[address] Mignon LLOYD MAMMO ORDERABLE S * Surgical Pathology (02/29/2024 3:16 PM EDT) Pathologist [facility] Case Report Surgical Pathology Report ? Case: [id number] ? Authorizing Provider: ??Mignon Dawson MD ? Collected: ? 02/29/2024 1516 ? Ordering Location: ? [facility] ??Received: ?02/29/2024 1538 ? [facility] ? Hospital ? Pathologist: ? Sil Maguire MD ? Specimens: ?? A) - Breast, Left, Left breast partial mastectomy lesion 3 ? B) - Breast, Left, Margin, Lateral Margin of Left Breast Lesion 1 ? C) - Breast, Left, Margin, Posterior Margin of Left Breast Lesion 1 ? 03/15/2024 4:06 PM EST [facility] Final Diagnosis A. Breast, Left, [...] hyperplasia, negative for malignancy. 03/15/2024 4:06 PM [facility] Additional Studies Task ID IHC/Special Stains Result A2-2 Calponin Positive A5-2 Calponin Positive A10-2 Calponin Positive A13-2 Calponin Positive A14-2 Calponin Positive A15-2 Calponin Positive B3-2 p63 Positive B3-3 Calponin Positive C2-2 CK5 Positive in area of interest C2-3 ER (Clone SP1) Patchy positive in area of interest 03/15/2024 4:06 PM [facility] Disclaimer(s) Formalin-fixed, paraffin-embedded tissue sections are [...] and other diagnostic tests. 03/15/2024 4:06 PM [facility] Clinical Information A. Breast, Left, Left breast partial mastectomy lesion 3 Known malignancy - as specified in Clinical Information BREAST CANCER Left breast partial mastectomy lesion 3 03/15/2024 4:06 PM [facility] Gross Description A. Breast, Left, Left [...] separate fragmented tissue 03/15/2024 4:06 PM EST [facility] Result Note Routine 03/15/2024 4:06 PM [facility] Tissue LEFT BREAST STRUCTURE [...] Lesion 1 Mignon Dawson MD PATHOLOGY/CYTOLOGY ORDERABLES [facility] [place] [phone] documented in this encounter Visit Diagnoses Not [...] (Due) documented in this encounter Care Teams Institution Librarian Relationship Specialty Start Date End Date Haylie Steward MD [facility] [place] [address] PCP - General General Internal Medicine 08/04/22 documented as of this encounter
--- OUTSIDE RECORDS SUMMARY | 2024-04-29 01:52 | XMS_ITS | Encounter Summary ---
Author Organization [facility] [place] [address] Care Team Providers Care Counter Stitcher Name Role Phone Haylie Steward MD Primary Care Provider + [phone] Encounter Details Date Type Department Care Team [...] from your doctor or pharmacy? Rarely 02/15/2024 [facility] Utilities Answer Date Recorded In the past [...] Scheduled View Only Radiation Oncology at [address] [address] 05/02/2024 3:45 PM EST Scheduled View Only Radiation Oncology at [address] [address] 05/03/2024 1:45 PM EST Scheduled View Only Radiation Oncology at [address] [address] 05/03/2024 2:15 PM EST Office Visit Radiation Oncology at [address] [address] Ofe Fonseca MD [facility] [place] [address] 05/05/2024 8:15 AM EST Scheduled View Only Radiation Oncology at [address] [address] 05/06/2024 12:30 PM EST Scheduled View Only Radiation Oncology at [address] [address] 05/09/2024 12:30 PM EST Scheduled View Only Radiation Oncology at [address] [address] 05/10/2024 2:30 PM EST Scheduled View Only Radiation Oncology at [address] [address] 05/10/2024 3:15 PM EST Office Visit Radiation Oncology at [address] [address] Ofe Fonseca MD [facility] [place] [address] 05/11/2024 2:30 PM EST Scheduled View Only Radiation Oncology at [address] [address] 05/11/2024 3:15 PM EST Scheduled View Only Radiation Oncology at [address] [address] Ofe Fonseca MD [facility] [place] [address] 05/12/2024 2:45 PM EST Scheduled View Only Radiation Oncology at [address] [address] 06/03/2024 3:30 PM EST [place] [address] Mira Hutchison APRN [facility] [place] [address] 06/23/2024 4:00 PM EST Appointment Mammography/DXA at [place] [address] Miryam Feliciano MD [facility] [place] [address] 07/12/2024 8:00 AM EDT Laboratory Appointment Lab [address] [address] 07/12/2024 9:30 AM EDT Office Visit Nephrology Hypertension at [place] [address] Sharmin Jean-Baptiste, [facility] [place] [address] 07/13/2024 10:30 AM EDT Laboratory Appointment Lab at [facility] Hematology Oncology [address] [place] [address] 07/13/2024 11:30 AM EDT Office Visit Hematology and Oncology at [place] [address] Salena Alvares, [facility] [place] [address] 07/13/2024 12:45 PM EDT Appointment Hematology and Oncology at [place] [address] documented as of this encounter Visit Diagnoses Not on filedocumented in this encounter Care Teams Counter Stitcher Relationship Specialty Start Date End Date Haylie Steward MD [facility] [place] [address] PCP - General General Internal Medicine 08/04/22 documented as of this encounter
--- OUTSIDE RECORDS SUMMARY | 2024-04-29 01:53 | XMS_ITS | Encounter Summary ---
Author Organization [facility] [place] [address] Care Team Providers Care Metallography Teacher Name Role Phone Haylie Steward MD Primary Care Provider + [phone] Encounter Details Date Type Department Care Team (Late st Contact Info) Description 01/20/2024 Patient Outreach Hematology and Oncology at [facility] [place] [phone] Alma Moseley, RN Social History Tobacco Use [...] things needed for daily living? No 01/20/2024 [facility] Inpatient Questions Answer Date Recorded Does Anyone [...] Moseley RN - 01/20/2024 1:31 PM EDT [facility] Center Nurse Navigation Patient Care Plan for the Comprehensive Breast Program (CBP) Date of call: 01/19 (01/19 left message) Reason for call: contacted Nataliya Morfin via phone to assess for nurse navigation services, per CBP notification, and to see if she had any questions prior to her surgical oncology consultation at [facility]. Introduced her to the CBP. Nataliya Morfin is a 48 y.o. 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 Nataliya sounds positive and states she has support from family and friends. A friend who is a PA at [facility] will accompany her to her surgical consultaiton. She appears to be coping ok but is anxious to meet with a breast surgeon to determine a treatment plan. Nataliya is followed by Dr. Chente Soto in [place] and meets with him regularly. Nataliya works [...] on 01/24, she may meet with our care team coordinator scheduler. She asked when surgery might happen and [...] oncology consultation. She understands that Marybeth Linton, [place], CCM, our social worker palliative care, and I are available to her for support/concerns. Addressed her questions and encouraged her to contact me with any additional questions or concerns.She has our contact information. FAMILY HISTORY Nataliya met with one of our genetic counselors on 01/04 (Personal history of hyperparathyroidism, high serum calcium, and low urine calcium) and underwent genetic testing. Per her conversation with Gavino Gandhi [facility], on 01/18: Multi-Cancer Panel and Hereditary Hyperparathyroidism Panel showed no pathogenic mutations were detected. Nataliya states she did not understand the significance of a variant of uncertain significance (VUS) detected in two genes. We reviewed that no additional genetic testing was recommended and,per this typewriter assembler's separate communication with Brandie Pickett [facility], no further genetic testing is recommended in [...] Scheduled View Only Radiation Oncology at [address] [address] 05/02/2024 3:45 PM EST Scheduled View Only Radiation Oncology at [address] [address] 05/03/2024 1:45 PM EST Scheduled View Only Radiation Oncology at [address] [address] 05/03/2024 2:15 PM EST Office Visit Radiation Oncology at [address] [address] Ofe Fonseca MD [facility] [place] [address] 05/05/2024 8:15 AM EST Scheduled View Only Radiation Oncology at [address] [address] 05/06/2024 12:30 PM EST Scheduled View Only Radiation Oncology at [address] [address] 05/09/2024 12:30 PM EST Scheduled View Only Radiation Oncology at [address] [address] 05/10/2024 2:30 PM EST Scheduled View Only Radiation Oncology at [address] [address] 05/10/2024 3:15 PM EST Office Visit Radiation Oncology at [address] [address] Ofe Fonseca MD [facility] [place] [address] 05/11/2024 2:30 PM EST Scheduled View Only Radiation Oncology at [address] [address] 05/11/2024 3:15 PM EST Scheduled View Only Radiation Oncology at [address] [address] Ofe Fonseca MD [facility] [place] [address] 05/12/2024 2:45 PM EST Scheduled View Only Radiation Oncology at [address] [address] 06/03/2024 3:30 PM EST [place] [phone] Mira Hutchison DR[employer] [facility] [address] 06/23/2024 4:00 PM EST Appointment Mammography/[place] [address] Miryam Feliciano MD [facility] [place] [address] 07/12/2024 8:00 AM EDT Laboratory Appointment Lab [address] [place] [address] 07/12/2024 9:30 AM EDT Office Visit Ne[place] [address] Sharmin Jean-Baptiste [facility] [place] [address] 07/13/2024 10:30 AM EDT Laboratory Appointment Lab at [facility] Hematology Oncology [address] [place] [address] 07/13/2024 11:30 AM EDT Office Visit Hematology and Oncology at [place] [phone] Salena Alvares [facility] [place] [address] 07/13/2024 12:45 PM EDT Appointment Hematology and Oncology at [address] documented as of this encounter Visit Diagnoses Not on filedocumented in this encounter Care Teams Metallography Teacher Relationship Specialty Start Date End Date [place] [address] PCP - General General Internal Medicine 4/3/23 documented as of this encounter
--- OUTSIDE RECORDS SUMMARY | 2024-04-29 01:53 | XMS_ITS | Encounter Summary ---
[place] [address] Care Team Providers Care Card Checker Name Role Phone Haylie Steward MD Primary Care Provider + [phone] Reason for Referral * Diagnostic Test (Routine) - Closed Specialty Diagnoses / Procedures Referred By Contac t Referred To Contact Radiology Diagnoses Malignant neoplasm of left female breast, unspecified estrogen receptor status, unspecified site of breast Procedures MRI Breast wwo Contrast Hailey Oro MD [facility] [place] [address] [place] [address] Referral ID Status Reason Start Date Expiration Date V isits Requested Visits Authorized [id number] Closed Specialty Service Requested 01/18/2024 07/17/2025 1 1 Encounter Details Date Type Department Care Team (Late st Contact Info) Description 01/18/2024 Orders Only [place] [address] Hailey Dawson MD [facility] [place] [address] Malignant neoplasm of left female [...] Scheduled View Only Radiation Oncology at [address] [phone] 05/02/2024 3:45 PM EST Scheduled View Only Radiation Oncology at [address] [phone] 05/03/2024 1:45 PM EST Scheduled View Only Radiation Oncology at [address] [phone] 05/03/2024 2:15 PM EST Office Visit Radiation Oncology at [address] [phone] Ofe Fonseca MD [facility] [place] [address] 05/05/2024 8:15 AM EST Scheduled View Only Radiation Oncology at [address] [phone] 05/06/2024 12:30 PM EST Scheduled View Only Radiation Oncology at [address] [phone] 05/09/2024 12:30 PM EST Scheduled View Only Radiation Oncology at [address] [phone] 05/10/2024 2:30 PM EST Scheduled View Only Radiation Oncology at [address] [phone] 05/10/2024 3:15 PM EST Office Visit Radiation Oncology at [address] [phone] Ofe Fonseca MD [facility] [address] 05/11/2024 2:30 PM EST Scheduled View Only Radiation Oncology at [address] [address] 05/11/2024 3:15 PM EST Scheduled View Only Radiation Oncology at [address] [phone] Ofe Fonseca MD [facility] [place] [address] 05/12/2024 2:45 PM EST Scheduled View Only Radiation Oncology at [address] [phone] 06/03/2024 3:30 PM EST Appointment Ultrasound at [place] [phone] Mira Hutchison APRN [facility] [address] 06/23/2024 4:00 PM EST Appointment Mammography/[place] [phone] Miryam Feliciano MD [facility] [place] [address] 07/12/2024 8:00 AM EDT Laboratory Appointment Lab [place] [phone] 07/12/2024 9:30 AM EDT Office Visit Nephrology [place] [address] Sharmin Jean-Baptiste, [facility] [place] [address] 07/13/2024 10:30 AM EDT Laboratory Appointment Lab at [facility] Hematology Oncology [address] [place] [phone] 07/13/2024 11:30 AM EDT Office Visit Hematology [place] [phone] Salena Alvares, [facility] [place] [address] 07/13/2024 12:45 PM EDT Appointment Hematology [place] [phone] documented as of this encounter Results * MRI Breast wwo Contrast Bilat (01/21/2024 11:05 AM EDT) WORKSTATION ID Massage [id number] DH RAD Anatomical Region Laterality Modality [...] who have questions please contact the health personal care worker that requested your imaging first. ? Electronically signed by: Malgorzata De Santiago [facility] ([phone]), at 01/21/2024 3:42 PM Narrative 01/21/2024 3:42 [...] contrast enhancement curve analysis was performed, using [employer] software. COMPARISON STUDIES: Compared and/or correlated with [...] chest wall or skin. Hailey Dawson MD [facility] MRI ORDERABLES * (ABNORMAL) Comprehensive metabolic panel Non-fasting (01/21/2024 9:13 AM EDT) Glucose 77 65 - 99 mg/dL 01/21/2024 9:58 AM [facility] Comment: Fasting Glucose Interpretive [...] 8 - 18 mg/dL 01/21/2024 9:58 AM [facility] Creatinine 1.03 0.70 - 1.20 mg/dL 01/21/2024 9:58 AM [facility] Sodium 143 135 - 145 mMol/L 01/21/2024 9:58 AM [facility] Potassium 4.3 3.5 - 5.0 mMol/L 01/21/2024 9:58 AM [facility] Chloride 109(H) 98 - 107 mMol/L 01/21/2024 9:58 AM [facility] Carbon Dioxide 23 22 - 31 mMol/L 01/21/2024 9:58 AM [facility] Anion Gap 11 5 - 15 mMol/L 01/21/2024 9:58 AM [facility] Calcium 10.1 8.5 - 10.5 mg/dL 01/21/2024 9:58 AM [facility] Protein, Total 6.8 6.1 - 8.0 g/dL 01/21/2024 9:58 AM [facility] Albumin 4.1 3.2 - 5.2 g/dL 01/21/2024 9:58 AM [facility] Aspartate Aminotransferase 23 <=30 unit/L 01/21/2024 9:58 AM [facility] Alanine Aminotransferase 25 0 - 30 unit/L 01/21/2024 9:58 AM [facility] Alkaline Phosphatase 82 35 - 105 unit/L 01/21/2024 9:58 AM [facility] Bilirubin, Total 0.2 <=1.3 mg/dL 01/21/2024 9:58 AM [facility] Est Glomerular Filtration Rate - Female 67 mL/min/1. 73 m?? 01/21/2024 9:58 AM [facility] Comment: This patient's estimated [...] Fasting Status Yes 01/21/2024 9:58 AM EDT [facility] Blood VENOUS BLOOD SPECIMEN / Unknown Venipuncture / Unknown 01/21/2024 9:13 AM EDT 01/21/2024 9:13 AM EDT Hailey Dawson MD CHEMISTRY ORDERABLE S [facility] [place] [address] * (ABNORMAL) CBC (with Diff) (01/21/2024 9:13 AM EDT) White Blood Cell 5.97 4.00 - 9.50 x10(3)/mc L 01/21/2024 10:[facility] Red Blood Cell 4.71 4.00 - 5.21 x10(6)/mc L 01/21/2024 10:06 AM [facility] Hemoglobin 14.6 11.7 - 15.5 g/dL 01/21/2024 10:06 AM [facility] Hematocrit 46.2(H) 35.7 - 45.8 % 01/21/2024 10:06 AM [facility] Mean Cell Volume 98.1(H) 82.6 - 94.4 fL 01/21/2024 10:06 AM [facility] Mean Cell Hemoglobin 31.0 27.1 - 32.0 pg 01/21/2024 10:06 AM [facility] Mean Cell Hemoglobin Concentration 31.6(L) 31.7 - 35.0 g/dL 01/21/2024 10:06 AM [facility] Platelet 226 145 - 357 x10(3)/mc L 01/21/2024 10:06 AM [facility] Mean Platelet Volume 9.6 7.6 - 12.9 fL 01/21/2024 10:06 AM [facility] RDW Standard Deviation 47.8(H) 37.0 - 46.0 fL 01/21/2024 10:06 AM [facility] RDW coefficient of variation 13.2 11.5 - 14.1 % 01/21/2024 10:06 AM [facility] NRBC% auto 0.0 % 01/21/2024 10:06 AM [facility] NRBC Absolute <0.01(H) 0.00 - 0.00 x10(3)/mc L 01/21/2024 10:06 AM [facility] Neutrophil % 61.7 % 01/21/2024 10:06 AM [facility] Neutrophil Absolute (ANC) - Automated 3.68 1.70 - 6.10 x10(3)/mc L 01/21/2024 10:06 AM [facility] Lymph % 26.5 % 01/21/2024 10:06 AM [facility] Lymph Absolute 1.58 0.90 - 3.20 x10(3)/mc L 01/21/2024 10:06 AM [facility] Monocyte % 8.5 % 01/21/2024 10:06 AM [facility] Monocyte Absolute 0.51 0.30 - 0.90 x10(3)/mc L 01/21/2024 10:06 AM [facility] Eos % 2.5 % 01/21/2024 10:06 AM [facility] Eos Absolute 0.15 0.00 - 0.40 x10(3)/mc L 01/21/2024 10:06 AM [facility] Basophil % 0.3 % 01/21/2024 10:06 AM [facility] Baso Absolute <0.04 0.00 - 0.10 x10(3)/mc L 01/21/2024 10:06 AM [facility] Immature Gran % 0.5 % 10:06 AM [facility] Immature Gran Absolute <0.04 0.00 - 0.04 x10(3)/mc L 01/21/2024 10:06 AM EDT [facility] Blood VENOUS BLOOD SPECIMEN / Unknown Venipuncture / Unknown 01/21/2024 9:13 AM EDT 01/21/2024 9:13 AM EDT Hailey Dawson MD HEMATOLOGY ORDERABL ES [facility] [place] [address] documented in this encounter Visit Diagnoses Diagnosis Malignant neoplasm of left female breast, unspecified estrogen receptor status, unspecified site of breast Malignant neoplasm of left female breast, unspecified estrogen receptor status, unspecified site of breast documented in this encounter Care Teams Card Checker Relationship Specialty Start Date [place] [address] PCP - General General Internal Medicine 08/04/22 documented as of this encounter
--- OUTSIDE RECORDS SUMMARY | 2024-04-29 01:53 | XMS_ITS | Encounter Summary ---
Author Organization [facility] [place] [address] Care Team Providers Care Cream Buyer Name Role Phone Haylie Steward MD Primary Care Provider + [phone] Encounter Details Date Type Department Care Team (Late st Contact Info) Description 02/02/2024 Patient Outreach Hematology and Oncology at [facility] [place] [phone] Alma Moseley, RN Social History Tobacco Use [...] needed for daily living? No 01/20/2024 [facility] Inpatient Questions Answer Date [...] Moseley RN - 02/02/2024 3:40 PM EDT [facility] Nurse Navigator Call for the Comprehensive Breast Program (CBP) Nataliya Morfin is a 48 y.o. female with ER/WA+/Her-2 negative left breast cancer. She met with Dr. Dawson on 01/24 in surgical oncology consultation. Additional left breast biopsies (2) [place] [facility] Reason for call: Nataliya called Dr. Dawson today regarding her surgical pathology report from her01/31 left breast biopsies. Contacted Nataliya per request of Dr. Dawson and left her a message on her [...] EST Scheduled View Only Radiation Oncology at [address] [phone] 05/02/2024 3:45 PM EST Scheduled View Only Radiation Oncology at [address] [phone] 05/03/2024 1:45 PM EST Scheduled View Only Radiation Oncology at [address] [phone] 05/03/2024 2:15 PM EST Office Visit Radiation Oncology at [address] [phone] Ofe Fonseca MD [facility] [place] [address] 05/05/2024 8:15 AM EST Scheduled View Only Radiation Oncology at [address] [address] 05/06/2024 12:30 PM EST Scheduled View Only Radiation Oncology at [address] [address] 05/09/2024 12:30 PM EST Scheduled View Only Radiation Oncology at [address] [phone] 05/10/2024 2:30 PM EST Scheduled View Only Radiation Oncology at [address] [address] 05/10/2024 3:15 PM EST Office Visit Radiation Oncology at [address] [phone] Ofe Fonseca MD [facility] [place] [address] 05/11/2024 2:30 PM EST Scheduled View Only Radiation Oncology at [address] [address] 05/11/2024 3:15 PM EST Scheduled View Only Radiation Oncology at [address] [phone] Ofe Fonseca MD [facility] [place] [address] 05/12/2024 2:45 PM EST Scheduled View Only Radiation Oncology at [address] [phone] 06/03/2024 3:30 PM EST Appointment [place] [address] Mira Hutchison APRN [facility] [place] [address] 06/23/2024 4:00 PM EST Appointment Mammography/DXA at [place] [phone] Miryam Feliciano MD [facility] [place] [address] 07/12/2024 8:00 AM EDT Laboratory Appointment Lab [address] [address] 07/12/2024 9:30 AM EDT Office Visit Nephrology Hypertension at [place] [address] Sharmin Jean-Baptiste, [facility] [place] [address] 07/13/2024 10:30 AM EDT Laboratory Appointment Lab at [facility] Hematology Oncology [address] [place] [address] 07/13/2024 11:30 AM EDT Office Visit Hematology and Oncology at [place] [address] Salena Alvares, [facility] [place] [address] 07/13/2024 12:45 PM EDT Appointment Hematology and Oncology at [place] [address] documented as of this encounter Visit Diagnoses Not on filedocumented in this encounter Care Teams Cream Buyer Relationship Specialty Start Date End Date Haylie Steward MD [place] [address] PCP - General General Internal Medicine 08/04/22 documented as of this encounter
--- OUTSIDE RECORDS SUMMARY | 2024-04-29 01:53 | XMS_ITS | Encounter Summary ---
Author Organization [facility] [place] [address] Care Team Providers Care Glueline Worker Name Role Phone Haylie Steward MD Primary Care Provider + [phone] Encounter Details Date Type Department Care Team (Latest Contact Info) Description 01/28/2024 8:05 AM EDT Laboratory Appointment Lab [address] [phone] Bipolar 1 disorder Social History Tobacco Use [...] Scheduled View Only Radiation Oncology at [address] [address] 05/02/2024 3:45 PM EST Scheduled View Only Radiation Oncology at [address] [address] 05/03/2024 1:45 PM EST Scheduled View Only Radiation Oncology at [address] [address] 05/03/2024 2:15 PM EST Office Visit Radiation Oncology at [address] [phone] Ofe Fonseca MD [facility] [place] [address] 05/05/2024 8:15 AM EST Scheduled View Only Radiation Oncology at [address] [address] 05/06/2024 12:30 PM EST Scheduled View Only Radiation Oncology at [address] [address] 05/09/2024 12:30 PM EST Scheduled View Only Radiation Oncology at [address] [address] 05/10/2024 2:30 PM EST Scheduled View Only Radiation Oncology at [address] [phone] 05/10/2024 3:15 PM EST Office Visit Radiation Oncology at [address] [address] Ofe Fonseca MD [facility] RAD[place] [address] 05/11/2024 2:30 PM EST Scheduled View Only Radiation Oncology at [address] [phone] 05/11/2024 3:15 PM EST Scheduled View Only Radiation Oncology at [address] [phone] Ofe Fonseca MD [facility] [place] [address] 05/12/2024 2:45 PM EST Scheduled View Only Radiation Oncology at [address] [phone] 06/03/2024 3:30 PM EST Appointment Ultrasound at [address] Mira Hutchison, [facility] [place] [address] 06/23/2024 4:00 PM EST Appointment Mammography/DXA at [place] [phone] Miryam Feliciano MD [facility] [place] [address] 07/12/2024 8:00 AM EDT Laboratory Appointment Lab [address] [phone] 07/12/2024 9:30 AM EDT Office Visit Nephrology Hypertension at [place] [phone] Sharmin Jean-Baptiste [facility] [place] [address] 07/13/2024 10:30 AM EDT Laboratory Appointment Lab at [facility] Hematology Oncology [address] [place] [phone] 07/13/2024 11:30 AM EDT Office Visit Hematology [place] [address] Salena Alvares APRN [facility] DR MEDICAL ONCOLOGY [place] [phone] 07/13/2024 12:45 PM EDT Appointment Hematology [place] [address] documented as of this encounter Procedures Procedure [...] CHEMISTRY ORDERABLES [facility] [place] [address] documented in this encounter Visit Diagnoses Diagnosis Bipolar 1 disorder Bipolar I disorder, most recent episode (or current) unspecified documented in this encounter Care Teams Glueline Worker Relationship Specialty Start Date End Date Haylie Steward MD [facility] [address] PCP - General General Internal Medicine 08/04/22 documented as of this encounter
--- OUTSIDE RECORDS SUMMARY | 2024-04-29 01:53 | XMS_ITS | Encounter Summary ---
Author Organization [facility] [place] [address] Care Team Providers Care Paint Coating Machine Operator Name Role Phone Haylie Steward MD Primary Care Provider + [phone] Reason for Visit * Reason Onset Date Comments Results 01/19/2024 Encounter Details Date Type Department Care Team (Late st Contact Info) Description 01/19/2024 Telephone Hematology [place] [address] Iggy Gandhi V, [facility] Hematology/[place] [address] Results Social History Tobacco Use Types Packs/Day [...] things needed for daily living? No 01/20/2024 [facility] Inpatient Questions Answer Date Recorded Does [...] * Telephone Encounter - Iggy Gandhi V MERGED WITH [facility] - 01/19/2024 4:01 PM EDT This test result was discussed with the patient by phone. A copy of the test results have been scanned in the medical record and sent to Nataliya. A summary of the results is provided below. Please be advised that [place] law requires that all health care workers respect the confidentiality of this information and not pass it along to other health care providers, insurance companies, or individuals without the written permission of the patient. The Familial Cancer Program welcomes any questions about these matters. Our phone number is: [phone]. On 01/05/2024 Nataliya was seen for genetic [...] CDC73, CDH1, CDK4, CDKN1B, CDKN2A (p14ARF), CDKN2A ([id number]), CHEK2, CTNNA1, DICER1, EGFR, EPCAM (Deletion/duplication testing only), FH, FLCN, GNA11, GREM1 (Promoter region deletion/duplication testing only), HOXB13, KIT, LZTR1, MAX, MBD4, MEN1, MET, MITF, MLH1, MSH2, MSH3, MSH6, MUTYH, NF1, NF2, NTHL1, PALB2, PDGFRA, PMS2, POLD1, POLE, POT1, OFDGP7Z, PTCH1, PTEN, RAD51C, RAD51D, RB1, RET, SDHA (sequencing only), SDHAF2, SDHB, SDHC, SDHD, SMAD4, SMARCA4, SMARCB1, SMARCE1, STK11, SUFU, HLCW972, TP53, TRPV6, TSC1, TSC2, and VHL. 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 [...] the genes with no increased cancer risks. [facility] is continually collecting and analyzing their data, [...] as Likely Benign by several labs including [facility], [facility], and [facility]. There are several other labs that also classify this variant as a VUS alongside [facility]. There are no labs reporting a Pathogenic or Likely Pathogenic classification per ClinVar. Based on this evidence, it is unlikely that this CHEK2 variant is related to Nataliya's recent diagnosis of breast cancer. The RB1 variant is currently reported in ClinVar as being classified as a VUS by [facility], [facility], and [facility]. There are no alternative classifications of this variant reported in ClinVar. We will be contacted by the laboratory, in the future, if a reclassification is made and we would then notify Nataliya. It is important that Nataliya's phone number and mailing address stay updated in the [facility] system, in order for us to [...] and/or Pap smears as recommended by Nataliya's clay worker or primary care provider. Colon cancer screening [...] recommended by Nataliya's primary care provider or email campaign manager. documented in this encounter Plan of Treatment Upcoming Encounters Date Type Department Care Team (Latest Contact Info) Description 04/29/2024 3:00 PM EST Scheduled View Only Radiation Oncology at [address] [phone] 05/02/2024 3:45 PM EST Scheduled View Only Radiation Oncology at [address] [address] 05/03/2024 1:45 PM EST Scheduled View Only Radiation Oncology at [address] [address] 05/03/2024 2:15 PM EST Office Visit Radiation Oncology at [address] [phone] Ofe Fonseca MD [facility] [place] [address] 05/05/2024 8:15 AM EST Scheduled View Only Radiation Oncology at [address] [address] 05/06/2024 12:30 PM EST Scheduled View Only Radiation Oncology at [address] [address] 05/09/2024 12:30 PM EST Scheduled View Only Radiation Oncology at [address] [phone] 05/10/2024 2:30 PM EST Scheduled View Only Radiation Oncology at [address] [address] 05/10/2024 3:15 PM EST Office Visit Radiation Oncology at [address] [phone] Ofe Fonseca MD [facility] [place] [address] 05/11/2024 2:30 PM EST Scheduled View Only Radiation Oncology at [address] [address] 05/11/2024 3:15 PM EST Scheduled View Only Radiation Oncology at [address] [phone] Ofe Fonseca MD [facility] [place] [address] 05/12/2024 2:45 PM EST Scheduled View Only Radiation Oncology at [address] [address] 06/03/2024 3:30 PM EST Appointment [place] [phone] Mira Hutchison [facility] [place] [address] 06/23/2024 4:00 PM EST Appointment Mammography/DXA at [place] [address] Miryam Feliciano MD [facility] [place] [address] 07/12/2024 8:00 AM EDT Laboratory Appointment Lab [address] [place] [address] 07/12/2024 9:30 AM EDT Office Visit Nephrology Hypertension at [place] [address] Sharmin Jean-Baptiste [facility] [place] [address] 07/13/2024 10:30 AM EDT Laboratory Appointment Lab at [facility] Hematology Oncology [address] [place] [address] 07/13/2024 11:30 AM EDT Office Visit Hematology and Oncology at [place] [phone] Salena Alvares [facility] [place] [address] 07/13/2024 12:45 PM EDT Appointment [place]ematology [place] [address] documented as of this encounter Visit Diagnoses Not on filedocumented in this encounter Care Teams Paint Coating Machine Operator Relationship Specialty Start Date [place] [address] PCP - General General Internal Medicine 08/04/22 documented as of this encounter
--- OUTSIDE RECORDS SUMMARY | 2024-04-29 01:53 | XMS_ITS | Encounter Summary ---
[place] [address] Care Team Providers Care Trade Show Coordinator Name Role Phone Haylie Steward MD Primary Care Provider + [phone] Reason for Visit * Consultation (Urgent) - Authorized Specialty Diagnoses / Procedures Referred By Contac t Referred To Contact Surgical Oncology / General Surgery Diagnoses Malignant neoplasm of unspecified site of left female breast Date and time per Hailey Knight BREAST, INVASIVE DUCTAL CARCINOMA, LOW GRADE, W/ DCIS Procedures [facility] Haylie Steward [place] [address] [place] [address] Hailey Dawson MD [facility] [place] [address] Referral ID Status Reason Start Date Expiration Date Visits Requested Visits Authorized [id number] Authorized Consult, Test & Treat PCP Updated and/or Approved 01/17/2024 07/16/2024 6 6 Encounter Details Date Type Department Care Team (Late st Contact Info) Description 01/25/2024 7:00 AM EDT Office [place] [address] Hailey Dawosn MD [facility] [place] [address] History of breast cancer; Malignant neoplasm of [...] was suspicious and biopsy confirmed low grade ER/MO+ IDC , her2 negative. Given breast density, [...] salivary gland cancer SH: non smoker. 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 . Past Medical History: [...] Scheduled View Only Radiation Oncology at [address] [address] 05/02/2024 3:45 PM EST Scheduled View Only Radiation Oncology at [address] [address] 05/03/2024 1:45 PM EST Scheduled View Only Radiation Oncology at [address] [address] 05/03/2024 2:15 PM EST Office Visit Radiation Oncology at [address] [address] Ofe Fonseca MD [facility] [place] [address] 05/05/2024 8:15 AM EST Scheduled View Only Radiation Oncology at [address] [address] 05/06/2024 12:30 PM EST Scheduled View Only Radiation Oncology at [address] [address] 05/09/2024 12:30 PM EST Scheduled View Only Radiation Oncology at [address] [address] 05/10/2024 2:30 PM EST Scheduled View Only Radiation Oncology at [address] [address] 05/10/2024 3:15 PM EST Office Visit Radiation Oncology at [address] [address] Ofe Fonseca MD [facility] [place] [address] 05/11/2024 2:30 PM EST Scheduled View Only Radiation Oncology at [address] [address] 05/11/2024 3:15 PM EST Scheduled View Only Radiation Oncology at [address] [address] Ofe Fonseca MD [facility] [place] [address] 05/12/2024 2:45 PM EST Scheduled View Only Radiation Oncology at [address] [address] 06/03/2024 3:30 PM EST [place]ointment [place] [address] Mira Hutchison APRN [facility] [place] [address] 06/23/2024 4:00 PM EST Appointment Mammography/[place] [phone] Miryam Feliciano MD [facility] [place] [address] 07/12/2024 8:00 AM EDT Laboratory Appointment Lab [place] [phone] 07/12/2024 9:30 AM EDT Office Visit Nephrology [place] [address] Sharmin Jean-Baptiste, [facility] [place] [address] 07/13/2024 10:30 AM EDT Laboratory Appointment Lab at [facility] Hematology Oncology [address] [place] [phone] 07/13/2024 11:30 AM EDT Office Visit Hematology [place] [phone] Salena Alvares, [facility] [place] [address] 07/13/2024 12:45 PM EDT Appointment Hematology [place] [phone] documented as of this encounter Results * [...] teacher that requested your imaging first. ? Electronically signed by: Martha Martino MD, [facility] ([phone]), at 02/01/2024 1:27 PM [facility] [address], [place] ??[address] Narrative 02/01/2024 1:27 PM EDT EXAMINATION: MAMMO [...] breast documented in this encounter Care Teams Trade Show Coordinator Relationship Specialty Start Date End Date Haylie Steward MD [facility] [place] [address] PCP - General General Internal Medicine 08/04/22 documented as of this encounter
--- OUTSIDE RECORDS SUMMARY | 2024-04-29 01:53 | XMS_ITS | Encounter Summary ---
Author Organization [facility] [place] [address] Care Team Providers Care Utility Worker Name Role Phone Haylie Steward MD Primary Care Provider + [phone] Encounter Details Date Type Department Care Team [...] Scheduled View Only Radiation Oncology at [address] [address] 05/02/2024 3:45 PM EST Scheduled View Only Radiation Oncology at [address] [address] 05/03/2024 1:45 PM EST Scheduled View Only Radiation Oncology at [address] [address] 05/03/2024 2:15 PM EST Office Visit Radiation Oncology at [address] [address] Ofe Fonseca MD [facility] [address] 05/05/2024 8:15 AM EST Scheduled View Only Radiation Oncology at [address] [address] 05/06/2024 12:30 PM EST Scheduled View Only Radiation Oncology at [address] [address] 05/09/2024 12:30 PM EST Scheduled View Only Radiation Oncology at [address] [address] 05/10/2024 2:30 PM EST Scheduled View Only Radiation Oncology at [address] [address] 05/10/2024 3:15 PM EST Office Visit Radiation Oncology at [address] [address] Ofe Fonseca MD [facility] RADIATION [place] [address] 05/11/2024 2:30 PM EST Scheduled View Only Radiation Oncology at [address] [address] 05/11/2024 3:15 PM EST Scheduled View Only Radiation Oncology at [address] [address] Ofe Fonseca MD [facility] [place] [address] 05/12/2024 2:45 PM EST Scheduled View Only Radiation Oncology at [address] [address] 06/03/2024 3:30 PM EST Appointment [place] [phone] Mira Hutchison, [facility] [place] [address] 06/23/2024 4:00 PM EST Appointment Mammography/[place] [phone] Miryam Feliciano MD [facility] [place] [place] [address] 07/12/2024 8:00 AM EDT Laboratory Appointment Lab [address] [place] [phone] 07/12/2024 9:30 AM EDT Office Visit Nephrology [place] [phone] Sharmin Jean-Baptiste [facility] [place] [address] 07/13/2024 10:30 AM EDT Laboratory Appointment Lab at [facility] Hematology Oncology [address] [place] [address] 07/13/2024 11:30 AM EDT Office Visit Hematology [place] [address] Salena Alvares APRN [facility] [place] [address] 07/13/2024 12:45 PM EDT Appointment Hematology [place] [address] documented as of this encounter Visit Diagnoses Not on filedocumented in this encounter Care Teams Utility Worker Relationship Specialty Start Date [place] [address] PCP - General General Internal Medicine 08/04/22 documented as of this encounter
--- OUTSIDE RECORDS SUMMARY | 2024-04-29 01:53 | XMS_ITS | Encounter Summary ---
Author Organization [facility] [place] [address] Care Team Providers Care Pot Reliner Name Role Phone Haylie Steward MD Primary Care Provider [phone] Encounter Details Date Type Department Care Team (Late st Contact Info) Description 01/28/2024 Orders [place] [address] Mignon Dawson MD [facility] [place] [address] History of breast cancer Social History Tobacco [...] things needed for daily living? No 01/20/2024 [facility] Inpatient Questions Answer Date Recorded Does [...] Scheduled View Only Radiation Oncology at [address] [address] 05/02/2024 3:45 PM EST Scheduled View Only Radiation Oncology at [address] [address] 05/03/2024 1:45 PM EST Scheduled View Only Radiation Oncology at [address] [address] 05/03/2024 2:15 PM EST Office Visit Radiation Oncology at [address] [address] Ofe Fonseca MD [facility] [place] [address] 05/05/2024 8:15 AM EST Scheduled View Only Radiation Oncology at [address] [address] 05/06/2024 12:30 PM EST Scheduled View Only Radiation Oncology at [address] [address] 05/09/2024 12:30 PM EST Scheduled View Only Radiation Oncology at [address] [address] 05/10/2024 2:30 PM EST Scheduled View Only Radiation Oncology at [address] [address] 05/10/2024 3:15 PM EST Office Visit Radiation Oncology at [address] [phone] Ofe Fonseca MD [facility] [place] [address] 05/11/2024 2:30 PM EST Scheduled View Only Radiation Oncology at [address] [address] 05/11/2024 3:15 PM EST Scheduled View Only Radiation Oncology at [address] [address] Ofe Fonseca MD [facility] [address] 05/12/2024 2:45 PM EST Scheduled View Only Radiation Oncology at [address] [phone] 06/03/2024 3:30 PM EST Appointment Ultrasound at [address] Mira Hutchison ASSISTANT GROCERY STORE MANAGER [facility] [place] [address] 06/23/2024 4:00 PM EST Appointment Mammography/DXA at [place] [phone] Miryam Feliciano MD [facility] [place] [address] 07/12/2024 8:00 AM EDT Laboratory Appointment Lab [address] [phone] 07/12/2024 9:30 AM EDT Office Visit Nephrology Hypertension at [place] [phone] Sharmin Jean-Baptiste ASSISTANT GROCERY STORE MANAGER [facility] [place] [address] 07/13/2024 10:30 AM EDT Laboratory Appointment Lab at [facility] Hematology Oncology [address] [place] [phone] 07/13/2024 11:30 AM EDT Office Visit Hematology [place] [address] Salena Alvares APRN [facility] [place] [address] 07/13/2024 12:45 PM EDT Appointment Hematology [place] [address] documented as of this encounter Results * Mammo Specimen Left (02/05/2024 2:53 PM EDT) WORKSTATION ID [id number] [facility] Anatomical Region Laterality Modality Breast Left Mammography [...] have questions please contact the health healthcare customer service that requested your imaging first. ? Electronically signed by: Aleida Bolanos MD, [facility] ([phone]), at 02/05/2024 3:17 PM [facility] [address] [place], [place] ??[address] Mignon Dawson MD IMG MAMMO ORDERABLE S [...] have questions please contact the health healthcare customer service that requested your imaging first. ? Electronically signed by: Aleida Bolanos MD, [facility] ([phone]), at 02/11/2024 11:11 AM [facility] [address] ??[address] Mignon Dawson MD IMG MAMMO ORDERABLE S documented in this encounter Visit Diagnoses Diagnosis History of breast cancer Personal history of malignant neoplasm of breast History of breast cancer Personal history of malignant neoplasm of breast History of breast cancer Personal history of malignant neoplasm of breast documented in this encounter Care Teams Pot Reliner Relationship Specialty Start Date End [place] [address] PCP - General General Internal Medicine 08/04/22 documented as of this encounter
--- OUTSIDE RECORDS SUMMARY | 2024-04-29 01:53 | XMS_ITS | Encounter Summary ---
Author Organization [facility] Address [facility] [place] [address] Care Team Providers Care Veneer Jointer Offbearer Name Role Phone Haylie Steward MD Primary Care Provider + [phone] Encounter Details Date Type Department Care Team (Latest Contact Info) Description 01/25/2024 12:51 PM EDT - 01/25/2024 11:59 PM EDT Hospital Encounter [place] [address] Martha Martino MD [facility] [place] [address] Abnormal finding on breast imaging Discharge Disposition: [...] things needed for daily living? No 01/20/2024 [facility] Inpatient Questions Answer Date Recorded Does [...] Scheduled View Only Radiation Oncology at [address] [address] 05/02/2024 3:45 PM EST Scheduled View Only Radiation Oncology at [address] [address] 05/03/2024 1:45 PM EST Scheduled View Only Radiation Oncology at [address] [address] 05/03/2024 2:15 PM EST Office Visit Radiation Oncology at [address] [address] Ofe Fonseca MD [facility] [place] [address] 05/05/2024 8:15 AM EST Scheduled View Only Radiation Oncology at [address] [address] 05/06/2024 12:30 PM EST Scheduled View Only Radiation Oncology at [address] [address] 05/09/2024 12:30 PM EST Scheduled View Only Radiation Oncology at [address] [address] 05/10/2024 2:30 PM EST Scheduled View Only Radiation Oncology at [address] [address] 05/10/2024 3:15 PM EST Office Visit Radiation Oncology at [address] [address] Ofe Fonseca MD [facility] [place] [place] [address] 05/11/2024 2:30 PM EST Scheduled View Only Radiation Oncology at [address] [address] 05/11/2024 3:15 PM EST Scheduled View Only Radiation Oncology at [address] [address] Ofe Fonseca MD [facility] RADIATION [place] [address] 05/12/2024 2:45 PM EST Scheduled View Only Radiation Oncology at [address] [address] 06/03/2024 3:30 PM EST Appointment Ultrasound at [place] [phone] Mira Hutchison [facility] [place] [address] 06/23/2024 4:00 PM EST Appointment Mammography/DXA at [place] [phone] Miryam Feliciano MD [facility] [place] [address] 07/12/2024 8:00 AM EDT Laboratory Appointment Lab [address] [place], [place] [phone] 07/12/2024 9:30 AM EDT Office Visit Nephrology Hypertension at [place] [phone] Sharmin Jean-Baptiste, [facility] [place] [address] 07/13/2024 10:30 AM EDT Laboratory Appointment Lab at [facility] [place] Oncology [address] [place] [phone] 07/13/2024 11:30 AM EDT Office Visit Hematology and Oncology at [place] [phone] Salena Alvares, [facility] [place] [address] 07/13/2024 12:45 PM EDT Appointment Hematology and Oncology at [place] [phone] documented as of this encounter Procedures Procedure Name Priority Date/Time Associated Diagnosis Comments MAMMO BREAST US LIMITED LEFT Routine 01/25/2024 1:45 PM EDT Abnormal finding on breast imaging documented in this encounter Results * US Breast Limited Left (01/25/2024 1:45 PM EDT) WORKSTATION ID [employer] [id number] [facility] RAD Anatomical Region Laterality Modality Breast Left [...] who have questions please contact the health animal care giver that requested your imaging first. ? Narrative [...] breast documented in this encounter Care Teams Veneer Jointer Offbearer Relationship Specialty Start Date End [place] [address] PCP - General General Internal Medicine 08/04/22 documented as of this encounter
--- OUTSIDE RECORDS SUMMARY | 2024-04-29 01:53 | XMS_ITS | Encounter Summary ---
Author Organization [facility] [place] [address] Care Team Providers Care Talent Acquisition Associate Name Role Phone Haylie Steward MD Primary Care Provider + [phone] Encounter Details Date Type Department Care Team (Late st Contact Info) Description 01/25/2024 Patient Outreach Hematology and Oncology at [facility] [place] [phone] Bob Flower, RN Social History Tobacco Use [...] things needed for daily living? No 01/20/2024 [facility] Inpatient Questions Answer Date Recorded Does [...] Morfin is a 48 y.o. female with ER/SC+/Her-2 negative left breast cancer. 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 She will plans to take a few days off (up to a week) after partial mastectomy. SPECIFIC TEACHIN. Breast Cancer Treatment Handbook (Nellie Royal, 2021) was sent via mail. 2. She understands she will meet with a medical oncologist and a radiation oncologist after surgeryand that [facility] will arrange these appts. as well as a follow up with Dr. Dawson post operatively. 3. Contact phone number for questions or concerns in the immediate post- operative period. 4. Comprehensive Breast Program Binder provided. 5. Post Breast Surgery Exercises handout created by physical therapists at [facility] to begin after partial mastectomy and continue until she is back to her baseline. 6. Breast Cancer Treatment Process care map provided and reviewed. 7. Contact information for the general surgery clinic nurses was given and the doctor construction controller system explained. Twenty minutes was spent in [...] Social work Nataliya has our social work therapist's number and will call her as needed. Currently she reports no financial difficulties and states her insurance is good. BOB FLOWER, RN documented in this encounter Plan of Treatment Upcoming Encounters Date Type Department Care Team (Latest Contact Info) Description 04/29/2024 3:00 PM EST Scheduled View Only Radiation Oncology at [address] [address] 05/02/2024 3:45 PM EST Scheduled View Only Radiation Oncology at [address] [address] 05/03/2024 1:45 PM EST Scheduled View Only Radiation Oncology at [address] [address] 05/03/2024 2:15 PM EST Office Visit Radiation Oncology at [address] [address] Ofe Fonseca MD [facility] [place] [address] 05/05/2024 8:15 AM EST Scheduled View Only Radiation Oncology at [address] [address] 05/06/2024 12:30 PM EST Scheduled View Only Radiation Oncology at [address] [address] 05/09/2024 12:30 PM EST Scheduled View Only Radiation Oncology at [address] [address] 05/10/2024 2:30 PM EST Scheduled View Only Radiation Oncology at [address] [address] 05/10/2024 3:15 PM EST Office Visit Radiation Oncology at [address] [address] Ofe Fonseca MD [facility] [place] [address] 05/11/2024 2:30 PM EST Scheduled View Only Radiation Oncology at [address] [address] 05/11/2024 3:15 PM EST Scheduled View Only Radiation Oncology at [address] [address] Ofe Fonseca MD [facility] [place] [address] 05/12/2024 2:45 PM EST Scheduled View Only Radiation Oncology at [address] [address] 06/03/2024 3:30 PM EST Appointment Ultrasound at [place] [phone] Mira Hutchison APRN [facility] [place] [address] 06/23/2024 4:00 PM EST Appointment Mammography/[place] [phone] Miryam Feliciano MD [facility] [place] [address] 07/12/2024 8:00 AM EDT Laboratory Appointment Lab [place] [phone] 07/12/2024 9:30 AM EDT Office Visit [place] [phone] Sharmin Jean-Baptiste, [facility] [place] [address] 07/13/2024 10:30 AM EDT Laboratory Appointment Lab at [facility] Hematology Oncology [address] [place] [address] 07/13/2024 11:30 AM EDT Office Visit Hematology [place] [address] Salena Alvares, [facility] [place] [address] 07/13/2024 12:45 PM EDT Appointment Hematology and Oncology at [place] [address] documented as of this encounter Visit Diagnoses Not on filedocumented in this encounter Care Teams Talent Acquisition Associate Relationship Specialty Start Date [place] [address] PCP - General General Internal Medicine 08/04/22 documented as of this encounter
--- OUTSIDE RECORDS SUMMARY | 2024-04-29 01:53 | XMS_ITS | Encounter Summary ---
Author Organization [facility] [place] [address] Care Team Providers Care Set Up And Charger Name Role Phone Haylie Steward MD Primary Care Provider + [phone] Encounter Details Date Type Department Care Team (Late st Contact Info) Description 01/26/2024 Patient Outreach Hematology and Oncology at [facility] [place] [phone] Alma Moseley, RN Social History Tobacco Use [...] needed for daily living? No 01/20/2024 [facility] Inpatient Questions Answer Date Recorded Does [...] Moseley RN - 01/26/2024 2:41 PM EDT [facility] Nurse Navigator Call for the Comprehensive Breast Program (CBP) Nataliya Morfin is a 48 y.o. female with ER/CA+/Her-2 negative left breast cancer. She met with [...] Scheduled View Only Radiation Oncology at [address] [address] 05/02/2024 3:45 PM EST Scheduled View Only Radiation Oncology at [address] [address] 05/03/2024 1:45 PM EST Scheduled View Only Radiation Oncology at [address] [address] 05/03/2024 2:15 PM EST Office Visit Radiation Oncology at [address] [address] Ofe Fonseca MD [facility] [place] [address] 05/05/2024 8:15 AM EST Scheduled View Only Radiation Oncology at [address] [address] 05/06/2024 12:30 PM EST Scheduled View Only Radiation Oncology at [address] [address] 05/09/2024 12:30 PM EST Scheduled View Only Radiation Oncology at [address] [address] 05/10/2024 2:30 PM EST Scheduled View Only Radiation Oncology at [address] [address] 05/10/2024 3:15 PM EST Office Visit Radiation Oncology at [address] [address] Ofe Fonseca MD [facility] [place] [address] 05/11/2024 2:30 PM EST Scheduled View Only Radiation Oncology at [address] [address] 05/11/2024 3:15 PM EST Scheduled View Only Radiation Oncology at [address] [address] Ofe Fonseca MD [facility] [place] [address] 05/12/2024 2:45 PM EST Scheduled View Only Radiation Oncology at [address] [address] 06/03/2024 3:30 PM EST [place] [address] Mira Hutchison APRN [facility] [place] [address] 06/23/2024 4:00 PM EST Appointment Mammography/DXA at [place] [phone] Miryam Feliciano MD [facility] [place] [address] 07/12/2024 8:00 AM EDT Laboratory Appointment Lab [address] [address] 07/12/2024 9:30 AM EDT Office Visit Nephrology Hypertension at [place] [address] Sharmin Jean-Baptiste, [facility] [place] [address] 07/13/2024 10:30 AM EDT Laboratory Appointment Lab at [facility] Hematology Oncology [address] [place] [address] 07/13/2024 11:30 AM EDT Office Visit Hematology and Oncology at [place] [address] Salena Alvares, [facility] [place] [address] 07/13/2024 12:45 PM EDT Appointment Hematology and Oncology at [place] [address] documented as of this encounter Visit Diagnoses Not on filedocumented in this encounter Care Teams Set Up And Charger Relationship Specialty Start Date End Date Haylie Steward MD [facility] [place] [address] PCP - General General Internal Medicine 08/04/22 documented as of this encounter
--- OUTSIDE RECORDS SUMMARY | 2024-04-29 01:53 | XMS_ITS | Encounter Summary ---
Author Organization [facility] [place] [address] Care Team Providers Care Freelance Programmer/App Developer Name Role Phone Haylie Steward MD Primary Care Provider + [phone] Encounter Details Date Type Department Care Team (Late st Contact Info) Description 01/14/2024 Interpretation Only [address] [phone] Mario Lee MD [facility] [place] [address] Social History Tobacco Use Types Packs/Day Years [...] Scheduled View Only Radiation Oncology at [address] [phone] 05/02/2024 3:45 PM EST Scheduled View Only Radiation Oncology at [address] [phone] 05/03/2024 1:45 PM EST Scheduled View Only Radiation Oncology at [address] [address] 05/03/2024 2:15 PM EST Office Visit Radiation Oncology at [address] [address] Ofe Fonseca MD [facility] [place] [address] 05/05/2024 8:15 AM EST Scheduled View Only Radiation Oncology at [address] [address] 05/06/2024 12:30 PM EST Scheduled View Only Radiation Oncology at [address] [address] 05/09/2024 12:30 PM EST Scheduled View Only Radiation Oncology at [address] [address] 05/10/2024 2:30 PM EST Scheduled View Only Radiation Oncology at [address] [address] 05/10/2024 3:15 PM EST Office Visit Radiation Oncology at [address] [address] Ofe Fonseca MD [facility] [place] [address] 05/11/2024 2:30 PM EST Scheduled View Only Radiation Oncology at [address] [address] 05/11/2024 3:15 PM EST Scheduled View Only Radiation Oncology at [address] [phone] Ofe Fonseca MD [facility] [place] [address] 05/12/2024 2:45 PM EST Scheduled View Only Radiation Oncology at [address] [phone] 06/03/2024 3:30 PM EST Appointment Ultrasound at [place] [phone] Mira Hutchison [facility] [place] [address] 06/23/2024 4:00 PM EST Appointment Mammography/DXA at [place] [phone] Miryam Feliciano MD [facility] [place] [address] 07/12/2024 8:00 AM EDT Laboratory Appointment Lab [address] [place], [place] [phone] 07/12/2024 9:30 AM EDT Office Visit Nephrology Hypertension at [place] [phone] Sharmin Jean-Baptiste [facility] [place] [address] 07/13/2024 10:30 AM EDT Laboratory Appointment Lab at [facility] [place] Hematology Oncology [address] [place] [phone] 07/13/2024 11:30 AM EDT Office Visit H[place] [phone] Salena Alvares APRN [facility] [place] [address] 07/13/2024 12:45 PM EDT Appointment Hematology [place] [address] documented as of this encounter Procedures Procedure Name Priority Date/Time Associated Diagnosis Comments MAMMO DIAGNOSTIC CAD AND EDWARD RIGHT Routine 01/14/2024 2:13 PM EDT documented in this encounter Results * Mammo Diagnostic Cad and Edward Right (01/14/2024 2:13 PM EDT) PT CLASS O RAD ADMITDTTM [id number] RAD PT RAD INFO [id number]^Shima garcia^Mario RAD EXAM DESC MADDUIRTO^MG Mammo Post Clip [...] questions please contact the health health care coordinator that requested your imaging first. ? Electronically signed by: Mario Lee MD, [facility] ([phone]), at 01/14/2024 2:[address] ??[phone] Narrative 01/14/2024 2:16 PM EDT EXAMINATION: US [...] have questions please contactthe health health care coordinator that requested your imaging first. [address] [place] [address] Mario Lee MD IMG MAMMO ORDERAB LES documented in this encounter Visit Diagnoses Not on filedocumented in this encounter Care Teams Freelance Programmer/App Developer Relationship Specialty Start Date [place] [address] PCP - General General Internal Medicine 08/04/22 documented as of this encounter
--- OUTSIDE RECORDS SUMMARY | 2024-04-29 01:53 | XMS_ITS | Encounter Summary ---
Author Organization [facility] [address] Care Team Providers Care Brusher And Shearer Name Role Phone Haylie Steward MD Primary Care Provider + [phone] Encounter Details Date Type Department Care Team (Late st Contact Info) Description 01/14/2024 Lab [place] [phone] Mario Lee MD [facility] [place] [address] Social History Tobacco Use Types Packs/Day Years [...] Scheduled View Only Radiation Oncology at [address] [phone] 05/02/2024 3:45 PM EST Scheduled View Only Radiation Oncology at [address] [address] 05/03/2024 1:45 PM EST Scheduled View Only Radiation Oncology at [address] [phone] 05/03/2024 2:15 PM EST Office Visit Radiation Oncology at [address] [address] Ofe Fonseca MD [facility] [place] [address] 05/05/2024 8:15 AM EST Scheduled View Only Radiation Oncology at [address] [phone] 05/06/2024 12:30 PM EST Scheduled View Only Radiation Oncology at [address] [phone] 05/09/2024 12:30 PM EST Scheduled View Only Radiation Oncology at [address] [address] 05/10/2024 2:30 PM EST Scheduled View Only Radiation Oncology at [address] [address] 05/10/2024 3:15 PM EST Office Visit Radiation Oncology at [address] [address] Ofe Fonseca MD [facility] [place] [address] 05/11/2024 2:30 PM EST Scheduled View Only Radiation Oncology at [address] [address] 05/11/2024 3:15 PM EST Scheduled View Only Radiation Oncology at [address] [phone] Ofe Fonseca MD [facility] [place] [address] 05/12/2024 2:45 PM EST Scheduled View Only Radiation Oncology at [address] [phone] 06/03/2024 3:30 PM EST Appointment Ultrasound at [place] [phone] Mira Hutchison [employer] [facility] [place] [address] 06/23/2024 4:00 PM EST Appointment Mammography/DXA at [place] [phone] Miryam Feliciano MD [facility] [place] [address] 07/12/2024 8:00 AM EDT Laboratory Appointment Lab [address] [place], [place] [phone] 07/12/2024 9:30 AM EDT Office Visit Nephrology Hypertension at [place] [phone] Sharmin Jean-Baptiste [facility] [place] [address] 07/13/2024 10:30 AM EDT Laboratory Appointment Lab at [facility] [place]ematology Oncology [address] [place] [phone] 07/13/2024 11:30 AM EDT Office Visit Hematology and Oncology at [place] [phone] Salena Alvares APRN [facility] [place] [address] 07/13/2024 12:45 PM EDT Appointment Hematology and Oncology at [place] [phone] documented as of this encounter Procedures Procedure Name Priority Date/Time Associated Diagnosis Comments HER-2 FISH Routine 01/14/2024 1:30 PM EDT SURGICAL PATHOLOGY (REQ ENTRY) Routine 01/14/2024 1:30 PM EDT documented in this encounter Results * HER-2 FISH (01/14/2024 1:30 PM EDT) Indication for Study 01/20/2024 9:11 AM [facility] Specimen Tissue Case/Block ID [id number] 01/20/2024 9:11 AM [facility] HER2 FISH Final Report Method Fluorescence in situ hybridization (FISH) with chromosome 17 centromere (17p11.1-q11.1) probe and a locus specific probe for the HER2 gene locus (17q11.2-q12). 01/20/2024 9:11 AM [facility] HER2/CHRISTOFER FISH Results Negative 01/20/2024 9:11 AM [facility] Total # signals/Total # nuclei counted for HER2 probe 145 01/20/2024 9:11 AM [facility] Total # Signals/Total # Nuclei counted for CEP-17 probe 81 01/20/2024 9:11 AM [facility] HER2 to CEP-17 Ratio (Normal Range <2.0) 1.8 01/20/2024 9:11 AM [facility] Total # Nuclei Counted 40 01/20/2024 9:11 AM [facility] Average # HER2 Signals/Cell 3.6 01/20/2024 9:11 AM [facility] HER2 FISH Interpretation Paraffin-embedded tissue sections were submitted for HER2 (ERBB2) gene amplification analysis by FISH. Direct analysis was performed using the PathVysion Kit. Slide adequacy and signal enumeration were [...] factor receptor 2 testing in breast cancer: [place] Society of Clinical Oncology/College of [place] [employer]ologists clinical practice guideline update. J Clin Oncol. 2013 Mar 04. Omero CURTIS, et al. Human Epidermal Growth Factor Receptor 2 Testing in Breast Cancer: [place] [employer] of Clinical Oncology/College of [place] [employer]ologists Clinical Practice Guideline Focused Update. Arch Pathol Lab Med. 2017September 30/J Clin Oncol. 2017September 30. 01/20/2024 9:11 AM EDT [facility] Sign-out by This result has been reviewed by MARNI CALLAHAN MD, on 01/20/24 at 9:11 AM. 01/20/2024 9:11 AM EDT [facility] Tissue LEFT BREAST STRUCTURE / Unknown 01/14/2024 1:30 PM EDT 01/15/2024 10:24 AM EDT Mario Lee MD MOLECULAR ORDERAB LES [facility] [place] [address] * (ABNORMAL) Surgical Pathology (Req Entry) (01/14/2024 1:30 PM EDT) Case Report Surgical Pathology Report ? Case: [id number] ? Authorizing Provider: ??Mario Lee MD ?? Collected: ? 01/14/2024 1330 ? Ordering Location: ? Laboratory ? Received: ?01/14/2024 1727 ? Pathologist: ? Tati Wilkins, ? Specimen: ?Breast, Left, Left Breast Mass ? 4 1:32 PM EDT [facility] Final Diagnosis Left breast, core needle biopsy: - Invasive ductal carcinoma, low grade (modified SBR score = 5), measuring at least 6 mm. - Lymphovascular invasion absent. 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 - Studies for ER, VT, and HER2 have been ordered; results will be issued in an addendum. 4 1:32 PM EDT [facility] Addendum 2 SPECIAL TEST PERFORMED: Test: Oncotype DX [facility] Case: [id number] Performing Lab: [facility] Performing Lab Case: [id number] Reported by Owen Barbour M.D. Date reported: 02/24/2024 For the full text of the [facility] report(s), please refer to the Chart Review Media tab in the electronic health record (eDH). 4 1:32 PM [facility] Addendum electronically signed by Tati Wilkins DO on 03/01/2024 at 1:32 PM Addendum Immunohistochemistry Studies (A1) Estrogen Receptor (ER) immunoreactivity: Positive Cancer cells with immunostaining: >90% Stain intensity: Moderate Progesterone Receptor (VT) immunoreactivity: Positive Cancer cells with immunostaining: >90% [...] The assays were performed according to the pasta maker's instructions using Anti-ER (SP1) and Anti-VT (16) antibodies. These tests were developed and their performance characteristics determined by [facility]. They may not have been cleared or [...] to perform high complexity clinical laboratory testing. 4 1:32 PM [facility] Addendum electronically signed by Tati Wilkins DO on 01/18/2024 at 10:41 AM Clinical Information Left Breast Mass 1:32 PM [facility] Gross Description A. Breast, Left, [...] ischemic time has been met (<1 hour). 4 1:32 PM EDT [facility] Result Note THIS RESULT REQUIR ES PHYSICIAN/JAZMIN FOLLOW UP(A) 1:32 PM EDT [facility] Tissue LEFT BREAST STRUCTURE / Unknown 01/14/2024 1:30 PM EDT 01/14/2024 5:27 PM EDT Mario Lee MD PATHOLOGY/CYTOLOG Y ORDERABLES Performing Organization Address City/State/[facility] Co de Phone Number [facility] [place] [address] documented in this encounter Visit Diagnoses Not on filedocumented in this encounter Care Teams Brusher And Shearer Relationship Specialty Start Date End Date [place] [address] [place] [address] PCP - General General Internal Medicine 08/04/22 documented as of this encounter
--- OUTSIDE RECORDS SUMMARY | 2024-04-29 01:53 | XMS_ITS | Encounter Summary ---
Author Organization [facility] [place] [address] Care Team Providers Care Toy Assembly Supervisor Name Role Phone Haylie Steward MD Primary Care Provider + [phone] Encounter Details Date Type Department Care Team (Latest Contact Info) Description 02/01/2024 8:49 AM EDT Hospital En[place] [phone] Aleida Sosa MD [facility] [place] [address] Abnormal finding on breast imaging Discharge Disposition: [...] needed for daily living? No 01/20/2024 [facility] Inpatient Questions Answer Date Recorded [...] Scheduled View Only Radiation Oncology at [address] [address] 05/02/2024 3:45 PM EST Scheduled View Only Radiation Oncology at [address] [phone] 05/03/2024 1:45 PM EST Scheduled View Only Radiation Oncology at [address] [address] 05/03/2024 2:15 PM EST Office Visit Radiation Oncology at [address] [address] Ofe Fonseca MD [facility] [place] [address] 05/05/2024 8:15 AM EST Scheduled View Only Radiation Oncology at [address] [address] 05/06/2024 12:30 PM EST Scheduled View Only Radiation Oncology at [address] [address] 05/09/2024 12:30 PM EST Scheduled View Only Radiation Oncology at [address] [address] 05/10/2024 2:30 PM EST Scheduled View Only Radiation Oncology at [address] [address] 05/10/2024 3:15 PM EST Office Visit Radiation Oncology at [address] [address] Ofe Fonseca MD [facility] [place] [address] 05/11/2024 2:30 PM EST Scheduled View Only Radiation Oncology at [address] [address] 05/11/2024 3:15 PM EST Scheduled View Only Radiation Oncology at [address] [phone] Ofe Fonseca MD [facility] [place] [address] 05/12/2024 2:45 PM EST Scheduled View Only Radiation Oncology at [address] [phone] 06/03/2024 3:30 PM EST Appointment [place] [phone] Mira Hutchison APRN [facility] [place] [address] 06/23/2024 4:00 PM EST Appointment Mammography/[place] [address] Miryam Feliciano MD [facility] [place] [address] 07/12/2024 8:00 AM EDT Laboratory Appointment Lab [address] [place] [phone] 07/12/2024 9:30 AM EDT Office Visit Nephrology Hypertension at [place] [phone] Sharmin Jean-Baptiste, [facility] [place] [address] 07/13/2024 10:30 AM EDT Laboratory Appointment Lab at [facility] [place] On[place] [address] [place] [phone] 07/13/2024 11:30 AM EDT Office Visit Hematology [place] [phone] Salena Alvares, [facility] [place] [address] 07/13/2024 12:45 PM EDT Appointment Hematology [place] [phone] documented as of this encounter Procedures Procedure Name Priority Date/Time Associated Diagnosis Comments MAMMO US BIOPSY MULTIPLE LEFT Routine 02/01/2024 10:17 AM EDT Abnormal finding on breast imaging SURGICAL PATHOLOGY Routine 02/01/2024 10 :06 AM EDT Abnormal finding on breast imaging documented in this encounter Results * Mammo US Biopsy Multiple Left (02/01/2024 10:17 AM EDT) WORKSTATION ID Useful at [employer] 3 DH RAD Anatomical Region Laterality Modality Breast Left Mammography Impressions 02/07/2024 1:26 PM EDT Probably concordant result RECOMMENDATION: Surgical consultation for known left breast cancer and conveyed to the operating surgeon via [employer] message. These results were discussed with the [...] who have questions please contact the health resident care technician that requested your imaging first. ? Electronically signed by: Martha Martino MD, [facility] ([phone]), at 02/07/2024 1:26 PM [facility] [place] ??[id number] Narrative 02/07/2024 1:26 PM EDT EXAMINATION: MAMMO [...] Case Report Surgical Pathology Report ? Case: [id number] ? Authorizing Provider: ??Cj Urban, ?Collected: ? 02/01/2024 1006 ? Aleida Rowley MD ? Ordering Location: ? Mammography at [facility] ?Received: ?02/01/2024 1446 ? Pathologist: ? Fely Carter, DO ? Specimens: ?? A) - Breast, Left, LEFT BREAST LESION #2 ? B) - Breast, Left, LEFT BREAST LESION #3 ? 02/04/2024 8:38 AM EDT [facility] Final Diagnosis A. Breast, Left, lesion #2, core needle biopsy: - Benign breast tissue with adenosis, columnar cell change, pseudoangiomatous stromal hyperplasia (PASH), and stromal fibrosis. B. Breast, Left, lesion #3, core needle biopsy: - Benign breast tissue with columnar cell change, pseudoangiomatous stromal hyperplasia (PASH), stromal fibrosis, and cysts. 02/04/2024 8:38 AM [facility] Discussion Deeper levels were examined. 02/04/2024 8:38 AM T [facility] Clinical Information A. Breast, Left, LEFT BREAST LESION #2 Mass Rule out malignancy B. Breast, Left, LEFT BREAST LESION #3 Mass Rule out malignancy 02/04/2024 8:38 AM T [facility] Gross Description A. Breast, Left, LEFT [...] 3 minutes CCP 02/04/2024 8:38 AM EDT [facility] Result Note Routine 02/04/2024 8:38 AM EDT [facility] Tissue LEFT BREAST STRUCTURE / Unknown 02/01/2024 10:06 AM EDT 02/01/2024 2:46 PM EDT Tissue specimen (specimen) LEFT BREAST STRUCTURE / Unknown 02/01/2024 10:10 AM EDT 02/01/2024 2:50 PM EDT Aleida Urban MD PATHOLOG Y/CYTOLOGY ORDERABLES [facility] [place] [phone] documented in this encounter Visit Diagnoses Diagnosis [...] mg documented in this encounter Care Teams Toy Assembly Supervisor Relationship Specialty Start Date End Date Haylie [place] [address] [place] [address] PCP - General General Internal Medicine 08/04/22 documented as of this encounter
--- OUTSIDE RECORDS SUMMARY | 2024-04-29 01:53 | XMS_ITS | Encounter Summary ---
Author Organization [facility] [place] [address] Care Team Providers Care Housekeeper Nanny Name Role Phone Haylie Steward MD Primary Care Provider + [phone] Encounter Details Date Type Department Care Team [...] Scheduled View Only Radiation Oncology at [address] [address] 05/02/2024 3:45 PM EST Scheduled View Only Radiation Oncology at [address] [address] 05/03/2024 1:45 PM EST Scheduled View Only Radiation Oncology at [address] [address] 05/03/2024 2:15 PM EST Office Visit Radiation Oncology at [address] [phone] Ofe Fonseca MD [facility] [place] [address] 05/05/2024 8:15 AM EST Scheduled View Only Radiation Oncology at [address] [address] 05/06/2024 12:30 PM EST Scheduled View Only Radiation Oncology at [address] [address] 05/09/2024 12:30 PM EST Scheduled View Only Radiation Oncology at [address] [address] 05/10/2024 2:30 PM EST Scheduled View Only Radiation Oncology at [address] [address] 05/10/2024 3:15 PM EST Office Visit Radiation Oncology at [address] [phone] Ofe Fonseca MD [facility] [place] [address] 05/11/2024 2:30 PM EST Scheduled View Only Radiation Oncology at [address] [address] 05/11/2024 3:15 PM EST Scheduled View Only Radiation Oncology at [address] [address] Ofe Fonseca MD [facility] [place] [address] 05/12/2024 2:45 PM EST Scheduled View Only Radiation Oncology at [address] [address] 06/03/2024 3:30 PM EST Appointment [place] [phone] Mira Hutchison, [facility] [address] 06/23/2024 4:00 PM EST Appointment Mammography/[place] [phone] Miryam Feliciano MD [facility] [place] [address] 07/12/2024 8:00 AM EDT Laboratory Appointment Lab [address] [place] [phone] 07/12/2024 9:30 AM EDT Office Visit Nephrology [place] [phone] Sharmin Jean-Baptiste [facility] [place] [address] 07/13/2024 10:30 AM EDT Laboratory Appointment Lab at [facility] Hematology Oncology [address] [place] [phone] 07/13/2024 11:30 AM EDT Office Visit Hematology [place] [address] Salena Alvares APRN [facility] [place] [address] 07/13/2024 12:45 PM EDT Appointment Hematology [place] [phone] documented as of this encounter Visit Diagnoses Not on filedocumented in this encounter Care Teams Housekeeper Nanny Relationship Specialty Start Date [place] [address] PCP - General General Internal Medicine 08/04/22 documented as of this encounter
--- OUTSIDE RECORDS SUMMARY | 2024-04-29 01:53 | XMS_ITS | Encounter Summary ---
Author Organization [facility] [place] [address] Care Team Providers Care High School Professional Name Role Phone Haylie Steward MD Primary Care Provider + [phone] Encounter Details Date Type Department Care Team [...] Scheduled View Only Radiation Oncology at [address] [address] 05/02/2024 3:45 PM EST Scheduled View Only Radiation Oncology at [address] [phone] 05/03/2024 1:45 PM EST Scheduled View Only Radiation Oncology at [address] [address] 05/03/2024 2:15 PM EST Office Visit Radiation Oncology at [address] [phone] Ofe Fonseca MD [facility] DR [facility] [place] [address] 05/05/2024 8:15 AM EST Scheduled View Only Radiation Oncology at [address] [phone] 05/06/2024 12:30 PM EST Scheduled View Only Radiation Oncology at [address] [address] 05/09/2024 12:30 PM EST Scheduled View Only Radiation Oncology at [address] [phone] 05/10/2024 2:30 PM EST Scheduled View Only Radiation Oncology at [address] [address] 05/10/2024 3:15 PM EST Office Visit Radiation Oncology at [address] [address] Ofe Fonseca MD [facility] RADIATION [place] [address] 05/11/2024 2:30 PM EST Scheduled View Only Radiation Oncology at [address] [address] 05/11/2024 3:15 PM EST Scheduled View Only Radiation Oncology at [address] [address] Ofe Fonseca MD [facility] [place] [address] 05/12/2024 2:45 PM EST Scheduled View Only Radiation Oncology at [address] [address] 06/03/2024 3:30 PM EST [place] [phone] Mira Hutchison, [facility] [place] [address] 06/23/2024 4:00 PM EST Appointment Mammography/[place] [phone] Miryam Feliciano MD [facility] [place] [place] [address] 07/12/2024 8:00 AM EDT Laboratory Appointment Lab [address] [place] [phone] 07/12/2024 9:30 AM EDT Office Visit Ne[place] [phone] Sharmin Jean-Baptiste [facility] [place] [address] 07/13/2024 10:30 AM EDT Laboratory Appointment Lab at [facility] [place] [address] [place] [phone] 07/13/2024 11:30 AM EDT Office Visit Hematology [place] [address] Salena Alvares APRN [facility] [place] [address] 07/13/2024 12:45 PM EDT Appointment Hematology [place] [phone] documented as of this encounter Visit Diagnoses Not on filedocumented in this encounter Care Teams High School Professional Relationship Specialty Start Date End [place] [address] PCP - General General Internal Medicine 08/04/22 documented as of this encounter
--- OUTSIDE RECORDS SUMMARY | 2024-04-29 01:53 | XMS_ITS | Encounter Summary ---
Author Organization [facility] [place] [address] Care Team Providers Care Motor Man Name Role Phone Haylie Steward MD Primary Care Provider [phone] Encounter Details Date Type Department Care Team (Late st Contact Info) Description 01/18/2024 Notes Only General Surgery at [facility] [place], operated by [facility] [phone] Madison Ng Social History Tobacco Use Types [...] Recorded In the past [address] 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 - Lymphovascular invasion absent. 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 Receptors: ER/DC+ Her 2 - Tumor size: 6mm Scans: [...] ordered Neoadjuvant []Yes []No Pt responded to [facility] message 02.16.24 [facility]'s Perla and Yoselin to 04/07 Per Perla - Pt agrees to this plan documented in this encounter Plan of Treatment Upcoming Encounters Date Type Department Care Team (Latest Contact Info) Description 04/29/2024 3:00 PM EST Scheduled View Only Radiation Oncology at [address] [phone] 05/02/2024 3:45 PM EST Scheduled View Only Radiation Oncology at [address] [address] 05/03/2024 1:45 PM EST Scheduled View Only Radiation Oncology at [address] [address] 05/03/2024 2:15 PM EST Office Visit Radiation Oncology at [address] [address] Ofe Fonseca MD [facility] [place] [address] 05/05/2024 8:15 AM EST Scheduled View Only Radiation Oncology at [address] [address] 05/06/2024 12:30 PM EST Scheduled View Only Radiation Oncology at [address] [address] 05/09/2024 12:30 PM EST Scheduled View Only Radiation Oncology at [address] [address] 05/10/2024 2:30 PM EST Scheduled View Only Radiation Oncology at [address] [address] 05/10/2024 3:15 PM EST Office Visit Radiation Oncology at [address] [address] Ofe Fonseca MD [facility] [place] [address] 05/11/2024 2:30 PM EST Scheduled View Only Radiation Oncology at [address] [address] 05/11/2024 3:15 PM EST Scheduled View Only Radiation Oncology at [address] [address] Ofe Fonseca MD [facility] [place] [address] 05/12/2024 2:45 PM EST Scheduled View Only Radiation Oncology at [address] [address] 06/03/2024 3:30 PM EST [place] [phone] Mira Hutchison APRN [facility] [place] [address] 06/23/2024 4:00 PM EST Appointment Mammography/[place] [phone] Miryam Feliciano MD [facility] [place] [address] 07/12/2024 8:00 AM EDT Laboratory Appointment Lab [address] [place] [address] 07/12/2024 9:30 AM EDT Office Visit Nephrology Hypertension at [place] [phone] Sharmin Jean-Baptiste, [facility] [place] [address] 07/13/2024 10:30 AM EDT Laboratory Appointment Lab at [facility] Hematology Oncology [address] [place] [phone] 07/13/2024 11:30 AM EDT Office Visit Hematology and Oncology at [place] [phone] Salena Alvares, [facility] [place] [address] 07/13/2024 12:45 PM EDT Appointment Hematology and Oncology at [place] [phone] documented as of this encounter Visit Diagnoses Not on filedocumented in this encounter Care Teams Motor Man Relationship Specialty Start Date [place] [address] PCP - General General Internal Medicine 08/04/22 documented as of this encounter
--- OUTSIDE RECORDS SUMMARY | 2024-04-29 01:53 | XMS_ITS | Encounter Summary ---
Author Organization [facility] Address [facility] [place] [address] Care Team Providers Care Suppository Molding Machine Operator Name Role Phone Haylie Steward MD Primary Care Provider + [phone] Encounter Details Date Type Department Care Team (Latest Contact Info) Description 02/01/2024 8:50 AM EDT - 02/01/2024 11:59 PM EDT Hospital Encounter [place] [address] Aleida Sosa MD [facility] [place] [address] Abnormal finding on breast imaging Discharge Disposition: [...] things needed for daily living? No 01/20/2024 [facility] Inpatient Questions Answer Date Recorded [...] Scheduled View Only Radiation Oncology at [address] [phone] 05/02/2024 3:45 PM EST Scheduled View Only Radiation Oncology at [address] [address] 05/03/2024 1:45 PM EST Scheduled View Only Radiation Oncology at [address] [address] 05/03/2024 2:15 PM EST Office Visit Radiation Oncology at [address] [address] Ofe Fonseca MD [facility] [place] [address] 05/05/2024 8:15 AM EST Scheduled View Only Radiation Oncology at [address] [address] 05/06/2024 12:30 PM EST Scheduled View Only Radiation Oncology at [address] [address] 05/09/2024 12:30 PM EST Scheduled View Only Radiation Oncology at [address] [address] 05/10/2024 2:30 PM EST Scheduled View Only Radiation Oncology at [address] [address] 05/10/2024 3:15 PM EST Office Visit Radiation Oncology at [address] [address] Ofe Fonseca MD [facility] [address] [place] [address] 05/11/2024 2:30 PM EST Scheduled View Only Radiation Oncology at [address] [address] 05/11/2024 3:15 PM EST Scheduled View Only Radiation Oncology at [address] [address] Ofe Fonseca MD [facility] [place] [address] 05/12/2024 2:45 PM EST Scheduled View Only Radiation Oncology at [address] [address] 06/03/2024 3:30 PM EST Appointment Ultrasound at [place] [phone] Mira Hutchison [facility] [place] [address] 06/23/2024 4:00 PM EST Appointment Mammography/DXA at [place] [phone] Miryam Feliciano MD [facility] [place] [address] 07/12/2024 8:00 AM EDT Laboratory Appointment Lab [address] [place], [place] [phone] 07/12/2024 9:30 AM EDT Office Visit Nephrology Hypertension at [place] [phone] Sharmin Jean-Baptiste [facility] [place] [address] 07/13/2024 10:30 AM EDT Laboratory Appointment Lab at [facility] [place]ology Oncology [address] [place] [phone] 07/13/2024 11:30 AM EDT Office Visit Hematology [place] [phone] Salena Alvares [facility] [place] [address] 07/13/2024 12:45 PM EDT Appointment Hematology [place] [address] documented as of this encounter Procedures Procedure Name Priority Date/Time Associated Diagnosis Comments MAMMO DIAGNOSTIC WITHOUT CAD LEFT Routine 02/01/2024 10:36 AM EDT Abnormal finding on breast imaging documented in this encounter Results * Mammo Diagnostic Without Cad Left (02/01/2024 10:36 AM EDT) WORKSTATION ID [id number] 1 RAD [...] who have questions please contact the health behavioral health care coordinator that requested your imaging first. ? [facility] DESI Valentino ??[id number] Aleida Urban MD IMG MAMM O ORDERABLES documented in this encounter Visit Diagnoses Diagnosis Abnormal finding on breast imaging Other (abnormal) findings on radiological examination of breast documented in this encounter Care Teams Suppository Molding Machine Operator Relationship Specialty Start Date [place] [address] PCP - General General Internal Medicine 08/04/22 documented as of this encounter
--- OUTSIDE RECORDS SUMMARY | 2024-04-29 01:53 | XMS_ITS | Encounter Summary ---
Author Organization [facility] [place] [address] Care Team Providers Care Furnace Repair Mechanic Name Role Phone Haylie Steward MD Primary Care Provider + [phone] Encounter Details Date Type Department Care Team [...] EST Scheduled View Only Radiation Oncology at [address] [address] 05/02/2024 3:45 PM EST Scheduled View Only Radiation Oncology at [address] [address] 05/03/2024 1:45 PM EST Scheduled View Only Radiation Oncology at [address] [address] 05/03/2024 2:15 PM EST Office Visit Radiation Oncology at [address] [address] Ofe Fonseca MD [facility] DR [place] [address] 05/05/2024 8:15 AM EST Scheduled View Only Radiation Oncology at [address] [address] 05/06/2024 12:30 PM EST Scheduled View Only Radiation Oncology at [address] [address] 05/09/2024 12:30 PM EST Scheduled View Only Radiation Oncology at [address] [address] 05/10/2024 2:30 PM EST Scheduled View Only Radiation Oncology at [address] [address] 05/10/2024 3:15 PM EST Office Visit Radiation Oncology at [address] [address] Ofe Fonseca MD [facility] [place] [address] 05/11/2024 2:30 PM EST Scheduled View Only Radiation Oncology at [address] [address] 05/11/2024 3:15 PM EST Scheduled View Only Radiation Oncology at [address] [address] Ofe Fonseca MD [facility] [place] [address] 05/12/2024 2:45 PM EST Scheduled View Only Radiation Oncology at [address] [address] 06/03/2024 3:30 PM EST [place] [phone] Mira Hutchison, [facility] [place] [address] 06/23/2024 4:00 PM EST Appointment Mammography/[place] [phone] Miryam Feliciano MD [facility] [place] [address] 07/12/2024 8:00 AM EDT Laboratory Appointment Lab [address] [place] [phone] 07/12/2024 9:30 AM EDT Office Visit Neph[place] [phone] Sharmin Jean-Baptiset [facility] [place] [address] 07/13/2024 10:30 AM EDT Laboratory Appointment Lab at [facility] Hematology Oncology [address] [place] [phone] 07/13/2024 11:30 AM EDT Office Visit Hematology [place] [address] Salena Alvares APRN [facility] [place] [address] 07/13/2024 12:45 PM EDT Appointment Hematology [place] [phone] documented as of this encounter Visit Diagnoses Not on filedocumented in this encounter Care Teams Furnace Repair Mechanic Relationship Specialty Start [place] [address] PCP - General General Internal Medicine 08/04/22 documented as of this encounter
--- OUTSIDE RECORDS SUMMARY | 2024-04-29 01:53 | XMS_ITS | Encounter Summary ---
[place] [address] Care Team Providers Care Clerical Support Name Role Phone Haylie Steward MD Primary Care Provider + [phone] Encounter Details Date Type Department Care Team (Latest Contact Info) Description 01/21/2024 9:15 AM EDT Laboratory Appointment Lab [address] [place] [phone] Malignant neoplasm of left female breast, unspecified [...] Scheduled View Only Radiation Oncology at [address] [address] 05/02/2024 3:45 PM EST Scheduled View Only Radiation Oncology at [address] [address] 05/03/2024 1:45 PM EST Scheduled View Only Radiation Oncology at [address] [address] 05/03/2024 2:15 PM EST Office Visit Radiation Oncology at [address] [address] Ofe Fonseca MD [facility] [place] [address] 05/05/2024 8:15 AM EST Scheduled View Only Radiation Oncology at [address] [address] 05/06/2024 12:30 PM EST Scheduled View Only Radiation Oncology at [address] [address] 05/09/2024 12:30 PM EST Scheduled View Only Radiation Oncology at [address] [address] 05/10/2024 2:30 PM EST Scheduled View Only Radiation Oncology at [address] [address] 05/10/2024 3:15 PM EST Office Visit Radiation Oncology at [address] [address] Ofe Fonseca MD [facility] [place] [address] 05/11/2024 2:30 PM EST Scheduled View Only Radiation Oncology at [address] [phone] 05/11/2024 3:15 PM EST Scheduled View Only Radiation Oncology at [address] [phone] Ofe Fonseca MD [facility] [place] [address] 05/12/2024 2:45 PM EST Scheduled View Only Radiation Oncology at [address] [phone] 06/03/2024 3:30 PM EST Appointment Ultrasound at [address]1000 Mira Hutchison [facility] [place] [address] 06/23/2024 4:00 PM EST Appointment Mammography/DXA at [place] [phone] Miryam Feliciano MD [facility] [place] [address] 07/12/2024 8:00 AM EDT Laboratory Appointment Lab [address] [place] [phone] 07/12/2024 9:30 AM EDT Office Visit Nephrology Hypertension at [place] [phone] Sharmin Jean-Baptiste [facility] [place] [address] 07/13/2024 10:30 AM EDT Laboratory Appointment Lab [place] [facility] [place]ology Oncology [address] [place] [address] 07/13/2024 11:30 AM EDT Office Visit Hematology [place] [phone] Salena Alvares APRN [facility] [place] [address] 07/13/2024 12:45 PM EDT Appointment Hematology [place] [phone] documented as of this encounter [...] - 99 mg/dL 01/21/2024 9:58 AM EDT [facility] Comment: Fasting Glucose Interpretive [...] 8 - 18 mg/dL 01/21/2024 9:58 AM T [facility] Creatinine 1.03 0.70 - 1.20 mg/dL 01/21/2024 9:58 AM T [facility] Sodium 143 135 - 145 mMol/L 01/21/2024 9:58 AM [facility] Potassium 4.3 3.5 - 5.0 mMol/L 01/21/2024 9:58 AM [facility] Chloride 109(H) 98 - 107 mMol/L 01/21/2024 9:58 AM [facility] Carbon Dioxide 23 22 - 31 mMol/L 01/21/2024 9:58 AM [facility] Anion Gap 11 5 - 15 mMol/L 01/21/2024 9:58 AM [facility] Calcium 10.1 8.5 - 10.5 mg/dL 01/21/2024 9:58 AM [facility] Protein, Total 6.8 6.1 - 8.0 g/dL 01/21/2024 9:58 AM [facility] Albumin 4.1 3.2 - 5.2 g/dL 01/21/2024 9:58 AM [facility] Aspartate Aminotransferase 23 <=30 unit/L 01/21/2024 9:58 AM [facility] Alanine Aminotransferase 25 0 - 30 unit/L 01/21/2024 9:58 AM [facility] Alkaline Phosphatase 82 35 - 105 unit/L 01/21/2024 9:58 AM [facility] Bilirubin, Total 0.2 <=1.3 mg/dL 01/21/2024 9:58 AM [facility] Est Glomerular Filtration Rate - Female 67 mL/min/1. 73 m?? 01/21/2024 9:58 AM [facility] Comment: This patient's estimated GFR was [...] Fasting Status Yes 01/21/2024 9:58 AM EDT [facility] Blood VENOUS BLOOD SPECIMEN / Unknown Venipuncture / Unknown 01/21/2024 9:13 AM EDT 01/21/2024 9:13 AM EDT Hailey Dawson MD CHEMISTRY ORDERABLE S [facility] [place] [address] * (ABNORMAL) CBC (with Diff) (01/21/2024 9:13 AM EDT) White Blood Cell 5.97 4.00 - 9.50 x10(3)/mc L [facility]2024 [facility] Red Blood Cell 4.71 4.00 - 5.21 x10(6)/mc L 01/21/2024 10:[facility] Hemoglobin 14.6 11.7 - 15.5 g/dL 01/21/2024 10:06 AM [facility] Hematocrit 46.2(H) 35.7 - 45.8 % 01/21/2024 10:06 AM [facility] Mean Cell Volume 98.1(H) 82.6 - 94.4 fL 01/21/2024 10:06 AM [facility] Mean Cell Hemoglobin 31.0 27.1 - 32.0 pg 01/21/2024 10:06 AM [facility] Mean Cell Hemoglobin Concentration 31.6(L) 31.7 - 35.0 g/dL 01/21/2024 10:06 AM [facility] Platelet 226 145 - 357 x10(3)/mc L 01/21/2024 10:06 AM [facility] Mean Platelet Volume 9.6 7.6 - 12.9 fL 01/21/2024 10:06 AM [facility] RDW Standard Deviation 47.8(H) 37.0 - 46.0 fL 01/21/2024 10:06 AM [facility] RDW coefficient of variation 13.2 11.5 - 14.1 % 01/21/2024 10:06 AM [facility] NRBC% auto 0.0 % 01/21/2024 10:06 AM [facility] NRBC Absolute <0.01(H) 0.00 - 0.00 x10(3)/mc L 01/21/2024 10:06 AM [facility] Neutrophil % 61.7 % 01/21/2024 10:06 AM [facility] Neutrophil Absolute (ANC) - Automated 3.68 1.70 - 6.10 x10(3)/mc L 01/21/2024 10:06 AM [facility] Lymph % 26.5 % 01/21/2024 10:06 AM [facility] Lymph Absolute 1.58 0.90 - 3.20 x10(3)/mc L 01/21/2024 10:06 AM [facility] Monocyte % 8.5 % 01/21/2024 10:06 AM [facility] Monocyte Absolute 0.51 0.30 - 0.90 x10(3)/mc L 01/21/2024 10:06 AM [facility] Eos % 2.5 % 01/21/2024 10:06 AM [facility] Eos Absolute 0.15 0.00 - 0.40 x10(3)/mc L 01/21/2024 10:06 AM [facility] Basophil % 0.3 % 01/21/2024 10:06 AM [facility] Baso Absolute <0.04 0.00 - 0.10 x10(3)/mc L 01/21/2024 10:06 AM [facility] Immature Gran % 0.5 % 10:06 AM EDT [facility] Immature Gran Absolute <0.04 0.00 - 0.04 x10(3)/mc L 01/21/2024 10:06 AM EDT [facility] Blood VENOUS BLOOD SPECIMEN / Unknown Venipuncture / Unknown 01/21/2024 9:13 AM EDT 01/21/2024 9:13 AM EDT Hailey Dawson MD HEMATOLOGY ORDERABL ES [facility] [place] [phone] documented in this encounter Visit Diagnoses Diagnosis Malignant neoplasm of left female breast, unspecified estrogen receptor status, unspecified site of breast documented in this encounter Care Teams Clerical Support Relationship Specialty Start Date End Date Haylie Steward MD [place] [address] PCP - General General Internal Medicine 08/04/22 documented as of this encounter
--- OUTSIDE RECORDS SUMMARY | 2024-04-29 01:53 | XMS_ITS | Encounter Summary ---
Author Organization [facility] [place] [address] Care Team Providers Care Director Sales And Trade Marketing Name Role Phone Haylie Steward MD Primary Care Provider + [phone] Encounter Details Date Type Department Care Team (Late st Contact Info) Description 01/14/2024 Interpretation Only [address] [address] Mario Lee MD [facility] [place] [address] Social History Tobacco Use Types Packs/Day Years [...] Scheduled View Only Radiation Oncology at [address] [phone] 05/02/2024 3:45 PM EST Scheduled View Only Radiation Oncology at [address] [address] 05/03/2024 1:45 PM EST Scheduled View Only Radiation Oncology at [address] [address] 05/03/2024 2:15 PM EST Office Visit Radiation Oncology at [address] [address] Ofe Fonseca MD [facility] RAD[place] [address] 05/05/2024 8:15 AM EST Scheduled View Only Radiation Oncology at [address] [address] 05/06/2024 12:30 PM EST Scheduled View Only Radiation Oncology at [address] [address] 05/09/2024 12:30 PM EST Scheduled View Only Radiation Oncology at [address] [address] 05/10/2024 2:30 PM EST Scheduled View Only Radiation Oncology at [address] [address] 05/10/2024 3:15 PM EST Office Visit Radiation Oncology at [address] [address] Ofe Fonseca MD [facility] [place] [address] 05/11/2024 2:30 PM EST Scheduled View Only Radiation Oncology at [address] [address] 05/11/2024 3:15 PM EST Scheduled View Only Radiation Oncology at [address] [phone] Ofe Fonseca MD [facility] [place] [address] 05/12/2024 2:45 PM EST Scheduled View Only Radiation Oncology at [address] [phone] 06/03/2024 3:30 PM EST Appointment Ultrasound at [place] [phone] Mira Hutchison [employer] [facility] [place] [address] 06/23/2024 4:00 PM EST Appointment Mammography/DXA at [place] [phone] Miryam Feliciano MD [facility] [place] [address] 07/12/2024 8:00 AM EDT Laboratory Appointment Lab [address] [place], [place] [phone] 07/12/2024 9:30 AM EDT Office Visit Nephrology Hypertension at [place] [phone] Sharmin Jean-Baptiste [facility] [place] [address] 07/13/2024 10:30 AM EDT Laboratory Appointment Lab at [facility] Hematology Oncology [address] [place] [phone] 07/13/2024 11:30 AM EDT Office Visit Hematology [place] [address] Salena Alvares APRN [facility] [place] [address] 07/13/2024 12:45 PM EDT Appointment Hematology [place] [phone] documented as of this encounter Procedures Procedure Name Priority Date/Time Associated Diagnosis Comments MAMMO US BIOPSY LEFT Routine 01/14/2024 2:12 PM EDT documented in this encounter Results * Mammo Us Biopsy Left (01/14/2024 2:12 PM EDT) PT CLASS O RAD ADMITDTTM [id number] RAD PT RAD INFO [id number]^Shima buenrostroki^Mario RAD EXAM DESC MAUBXL^US Guided Breast Biopsy [...] who have questions please contact the health pediatric care coordinator that requested your imaging first. ? [address] ??[address] Narrative 01/14/2024 2:16 PM EDT EXAMINATION: US [...] patients who have questions please contactthe health pediatric care coordinator that requested your imaging first. [address] [place] [address] Mario Lee MD IMG MAMMO ORDERAB LES documented in this encounter Visit Diagnoses Not on filedocumented in this encounter Care Teams Director Sales And Trade Marketing Relationship Specialty Start Date End [place] [address] PCP - General General Internal Medicine 08/04/22 documented as of this encounter
--- OUTSIDE RECORDS SUMMARY | 2024-04-29 01:53 | XMS_ITS | Encounter Summary ---
Author Organization [facility] [place] [address] Care Team Providers Care Knitting Inspector Name Role Phone Haylie Steward MD Primary Care Provider + [phone] Encounter Details Date Type Department Care Team [...] Scheduled View Only Radiation Oncology at [address] [address] 05/02/2024 3:45 PM EST Scheduled View Only Radiation Oncology at [address] [address] 05/03/2024 1:45 PM EST Scheduled View Only Radiation Oncology at [address] [address] 05/03/2024 2:15 PM EST Office Visit Radiation Oncology at [address] [address] Ofe Fonseca MD [facility] DR [facility] [address] 05/05/2024 8:15 AM EST Scheduled View Only Radiation Oncology at [address] [address] 05/06/2024 12:30 PM EST Scheduled View Only Radiation Oncology at [address] [address] 05/09/2024 12:30 PM EST Scheduled View Only Radiation Oncology at [address] [address] 05/10/2024 2:30 PM EST Scheduled View Only Radiation Oncology at [address] [address] 05/10/2024 3:15 PM EST Office Visit Radiation Oncology at [address] [address] Ofe Fonseca MD [facility] RAD[place] [address] 05/11/2024 2:30 PM EST Scheduled View Only Radiation Oncology at [address] [address] 05/11/2024 3:15 PM EST Scheduled View Only Radiation Oncology at [address] [address] Ofe Fonseca MD [facility] [place] [address] 05/12/2024 2:45 PM EST Scheduled View Only Radiation Oncology at [address] [address] 06/03/2024 3:30 PM EST [place] [phone] Mira Hutchison, [facility] [place] [address] 06/23/2024 4:00 PM EST Appointment Mammography/[place] [phone] Miryam Feliciano MD [facility] [place] [address] 07/12/2024 8:00 AM EDT Laboratory Appointment Lab [address] [place] [phone] 07/12/2024 9:30 AM EDT Office Visit Neph[place] [phone] Sharmin Jean-Baptiste [facility] [place] [address] 07/13/2024 10:30 AM EDT Laboratory Appointment Lab at [facility] [place]ematology Oncology [address] [place] [phone] 07/13/2024 11:30 AM EDT Office Visit Hematology [place] [address] Salena Alvares APRN [facility] [place] [address] 07/13/2024 12:45 PM EDT Appointment Hematology [place] [phone] documented as of this encounter Visit Diagnoses Not on filedocumented in this encounter Care Teams Knitting Inspector Relationship Specialty Start Date [place] [address] PCP - General General Internal Medicine 08/04/22 documented as of this encounter
--- OUTSIDE RECORDS SUMMARY | 2024-04-29 01:53 | XMS_ITS | Encounter Summary ---
Author Organization [facility]ly [facility] [place] [address] Care Team Providers Care Linux Administrator Name Role Phone Haylie Steward MD Primary Care Provider [phone] Encounter Details Date Type Department Care Team (Latest Contact Info) Description 02/01/2024 8:49 AM EDT Hospital En[place] [phone] Hailey Dawson MD [facility] [place] [address] History of breast cancer Discharge Disposition: Home [...] things needed for daily living? No 01/20/2024 [facility] Inpatient Questions Answer Date Recorded Does [...] Scheduled View Only Radiation Oncology at [address] [address] 05/02/2024 3:45 PM EST Scheduled View Only Radiation Oncology at [address] [address] 05/03/2024 1:45 PM EST Scheduled View Only Radiation Oncology at [address] [address] 05/03/2024 2:15 PM EST Office Visit Radiation Oncology at [address] [address] Ofe Fonseca MD [facility] [place] [address] 05/05/2024 8:15 AM EST Scheduled View Only Radiation Oncology at [address] [address] 05/06/2024 12:30 PM EST Scheduled View Only Radiation Oncology at [address] [address] 05/09/2024 12:30 PM EST Scheduled View Only Radiation Oncology at [address] [address] 05/10/2024 2:30 PM EST Scheduled View Only Radiation Oncology at [address] [address] 05/10/2024 3:15 PM EST Office Visit Radiation Oncology at [address] [address] Ofe Fonseca MD [facility] [place] [address] 05/11/2024 2:30 PM EST Scheduled View Only Radiation Oncology at [address] [address] 05/11/2024 3:15 PM EST Scheduled View Only Radiation Oncology at [address] [address] Ofe Fonseca MD [facility] DR [facility] [address] 05/12/2024 2:45 PM EST Scheduled View Only Radiation Oncology at [address] [phone] 06/03/2024 3:30 PM EST Appointment Ultrasound at [place] [phone] Mira Hutchison [facility] [place] [address] 06/23/2024 4:00 PM EST Appointment Mammography/DXA at [place] [phone] Miryam Feliciano MD [facility] [place] [address] 07/12/2024 8:00 AM EDT Laboratory Appointment Lab [address] [place], [place] [phone] 07/12/2024 9:30 AM EDT Office Visit Nephrology Hypertension at [place] [phone] Sharmin Jean-Baptiste [facility] [address] 07/13/2024 10:30 AM EDT Laboratory Appointment Lab at [facility] Hematology Oncology [address] [place], [place] [phone] 07/13/2024 11:30 AM EDT Office Visit Hematology [place] [phone] Salena Alvares [facility] [place] [address] 07/13/2024 12:45 PM EDT Appointment Hematology and Oncology at [place] [phone] documented as of this encounter Procedures Procedure Name Priority Date/Time Associated Diagnosis Comments MAMMO MAGSEED PLACEMENT MULTIPLE LEFT Routine 02/01/2024 10:17 AM EDT History of breast cancer documented in this encounter Results * Mammo Magseed Placement Multiple Left (02/01/2024 10:17 AM EDT) WORKSTATION ID [id number] 1 RAD Anatomical Region Laterality Modality Breast [...] specialist that requested your imaging first. ? Electronically signed by: Martha Martino MD, [facility] ([phone]), at 02/01/2024 1:[address] [facility] [place] [facility] [address] [place] ??[address] Narrative 02/01/2024 1:27 PM EDT EXAMINATION: MAMMO [...] mg documented in this encounter Care Teams Linux Administrator Relationship Specialty Start Date End Date Haylie Steward MD [facility] [place] [address] PCP - General General Internal Medicine 08/04/22 documented as of this encounter
--- OUTSIDE RECORDS SUMMARY | 2024-04-29 01:53 | XMS_ITS | Encounter Summary ---
Author Organization [facility] [place] [address] Care Team Providers Care Veterinary Technician Instructor Name Role Phone Haylie Steward MD Primary Care Provider + [phone] Encounter Details Date Type Department Care Team (Late st Contact Info) Description 01/22/2024 Patient Outreach Hematology and Oncology at [facility] [place] [phone] Alma Moseley, RN Social History Tobacco Use [...] for daily living? No 01/20/2024 [facility] Inpatient Questions Answer Date Recorded Does Anyone [...] Moseley RN - 01/22/2024 2:19 PM EDT [facility] Nurse Navigator Call for the Comprehensive Breast Program (CBP) Nataliya Morfin is a 48 y.o. 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 Surgical consultation is scheduled on 01/24 [...] boss. She understands she may contact this sign writer letterer or painter should she have any questions about the [...] Scheduled View Only Radiation Oncology at [address] [address] 05/02/2024 3:45 PM EST Scheduled View Only Radiation Oncology at [address] [address] 05/03/2024 1:45 PM EST Scheduled View Only Radiation Oncology at [address] [address] 05/03/2024 2:15 PM EST Office Visit Radiation Oncology at [address] [address] Ofe Fonseca MD [facility] [place] [address] 05/05/2024 8:15 AM EST Scheduled View Only Radiation Oncology at [address] [address] 05/06/2024 12:30 PM EST Scheduled View Only Radiation Oncology at [address] [address] 05/09/2024 12:30 PM EST Scheduled View Only Radiation Oncology at [address] [address] 05/10/2024 2:30 PM EST Scheduled View Only Radiation Oncology at [address] [address] 05/10/2024 3:15 PM EST Office Visit Radiation Oncology at [address] [address] Ofe Fonseca MD [facility] [place] [address] 05/11/2024 2:30 PM EST Scheduled View Only Radiation Oncology at [address] [address] 05/11/2024 3:15 PM EST Scheduled View Only Radiation Oncology at [address] [address] Ofe Fonseca MD [facility] [place] [address] 05/12/2024 2:45 PM EST Scheduled View Only Radiation Oncology at [address] [address] 06/03/2024 3:30 PM EST Appointment Ultrasound at [place] [address] Mira Hutchison, [facility] [place] [address] 06/23/2024 4:00 PM EST Appointment Mammography/DXA at [place] [address] Miryam Feliciano MD [facility] [place] [address] 07/12/2024 8:00 AM EDT Laboratory Appointment Lab [address] [place] [address] 07/12/2024 9:30 AM EDT Office Visit Nephrology Hypertension at [place] [address] Sharmin Jean-Baptiste [facility] [place] [address] 07/13/2024 10:30 AM EDT Laboratory Appointment Lab at [facility] [place] Oncology [address] [place] [address] 07/13/2024 11:30 AM EDT Office Visit [place]ematology [place] [phone] Salena Alvares [facility] [place] [address] 07/13/2024 12:45 PM EDT Appointment Hematology [place] [phone] documented as of this encounter Visit Diagnoses Not on filedocumented in this encounter Care Teams Veterinary Technician Instructor Relationship Specialty Start Date [place] [address] PCP - General General Internal Medicine 08/04/22 documented as of this encounter
--- OUTSIDE RECORDS SUMMARY | 2024-04-29 01:53 | XMS_ITS | Encounter Summary ---
Author Organization [facility] [place] [address] Care Team Providers Care Dairy Laboratory Technician Name Role Phone Haylie Steward MD Primary Care Provider + [phone] Encounter Details Date Type Department Care Team [...] Scheduled View Only Radiation Oncology at [address] [address] 05/02/2024 3:45 PM EST Scheduled View Only Radiation Oncology at [address] [address] 05/03/2024 1:45 PM EST Scheduled View Only Radiation Oncology at [address] [address] 05/03/2024 2:15 PM EST Office Visit Radiation Oncology at [address] [address] Ofe Fonseca MD [facility] DR [place] [address] 05/05/2024 8:15 AM EST Scheduled View Only Radiation Oncology at [address] [address] 05/06/2024 12:30 PM EST Scheduled View Only Radiation Oncology at [address] [address] 05/09/2024 12:30 PM EST Scheduled View Only Radiation Oncology at [address] [address] 05/10/2024 2:30 PM EST Scheduled View Only Radiation Oncology at [address] [address] 05/10/2024 3:15 PM EST Office Visit Radiation Oncology at [address] [address] Ofe Fonseca MD [facility] [place] [address] 05/11/2024 2:30 PM EST Scheduled View Only Radiation Oncology at [address] [address] 05/11/2024 3:15 PM EST Scheduled View Only Radiation Oncology at [address] [address] Ofe Fonseca MD [facility] [place] [address] 05/12/2024 2:45 PM EST Scheduled View Only Radiation Oncology at [address] [address] 06/03/2024 3:30 PM EST [place] [phone] Mira Hutchison, [facility] [place] [address] 06/23/2024 4:00 PM EST Appointment Mammography/[place] [phone] Miryam Feliciano MD [facility] [place] [address] 07/12/2024 8:00 AM EDT Laboratory Appointment Lab [address] [place] [phone] 07/12/2024 9:30 AM EDT Office Visit [place] [phone] Sharmin Jean-Baptiste [facility] [place] [address] 07/13/2024 10:30 AM EDT Laboratory Appointment Lab at [facility] [place] Oncology [address] [place] [phone] 07/13/2024 11:30 AM EDT Office Visit H[place]ology [place] [address] Salena Alvares APRN [facility] [place] [address] 07/13/2024 12:45 PM EDT Appointment Hematology [place] [phone] documented as of this encounter Visit Diagnoses Not on filedocumented in this encounter Care Teams Dairy Laboratory Technician Relationship Specialty Start Date [place] [address] PCP - General General Internal Medicine 08/04/22 documented as of this encounter
--- OUTSIDE RECORDS SUMMARY | 2024-04-29 01:53 | XMS_ITS | Encounter Summary ---
[place] [address] Care Team Providers Care Lead Tinner Name Role Phone Haylie Steward MD Primary Care Provider [phone] Reason for Referral * Diagnostic Test (Routine) - Closed Specialty Diagnoses / Procedures Referred By Contac t Referred To Contact Radiology Diagnoses Malignant neoplasm of left female breast, unspecified estrogen receptor status, unspecified site of breast Procedures MRI Breast wwo Contrast Hailey Oro MD [facility] [place] [address] [place] [address] Referral ID Status Reason Start Date Expiration Date V isits Requested Visits Authorized [id number] Closed Specialty Service Requested 01/18/2024 07/17/2025 1 1 Reason for Visit * Diagnostic Test (Routine) - Closed Specialty Diagnoses / Procedures Referred By Contac t Referred To Contact Radiology Diagnoses Malignant neoplasm of left female breast, unspecified estrogen receptor status, unspecified site of breast Procedures MRI Breast wwo Contrast Hailey Oro MD [facility] [place] [address] [place] [address] Referral ID Status Reason Start Date Expiration Date V isits Requested Visits Authorized [id number] Closed Specialty Service Requested 01/18/2024 07/17/2025 1 1 Encounter Details Date Type Department Care Team (Latest Contact Info) Description 01/21/2024 9:42 AM EDT - 01/21/2024 11:59 PM EDT Hospital Encounter MRI at [facility] [place] [address] Hailey Dawson MD [facility] [place] [address] Malignant neoplasm of left female breast, unspecified [...] things needed for daily living? No 01/20/2024 [facility] Inpatient Questions Answer Date Recorded Does [...] Scheduled View Only Radiation Oncology at [address] [address] 05/02/2024 3:45 PM EST Scheduled View Only Radiation Oncology at [address] [address] 05/03/2024 1:45 PM EST Scheduled View Only Radiation Oncology at [address] [address] 05/03/2024 2:15 PM EST Office Visit Radiation Oncology at [address] [address] Ofe Fonseca MD [facility] RAD[place] [address] 05/05/2024 8:15 AM EST Scheduled View Only Radiation Oncology at [address] [address] 05/06/2024 12:30 PM EST Scheduled View Only Radiation Oncology at [address] [address] 05/09/2024 12:30 PM EST Scheduled View Only Radiation Oncology at [address] [address] 05/10/2024 2:30 PM EST Scheduled View Only Radiation Oncology at [address] [address] 05/10/2024 3:15 PM EST Office Visit Radiation Oncology at [address] [address] Ofe Fonseca MD [facility] [place] [address] 05/11/2024 2:30 PM EST Scheduled View Only Radiation Oncology at [address] [address] 05/11/2024 3:15 PM EST Scheduled View Only Radiation Oncology at [address] [address] Ofe Fonseca MD [facility] [place] [address] 05/12/2024 2:45 PM EST Scheduled View Only Radiation Oncology at [address] [address] 06/03/2024 3:30 PM EST Appointment [place] [phone] Mira Hutchison APRN [facility] [place] [address] 06/23/2024 4:00 PM EST Appointment Mammography/[place] [phone] Miryam Feliciano MD [facility] [place] [address] 07/12/2024 8:00 AM EDT Laboratory Appointment Lab [address] [place] [phone] 07/12/2024 9:30 AM EDT Office Visit Nephrology [place] [phone] Sharmin Jean-Baptiste, [facility] [place] [address] 07/13/2024 10:30 AM EDT Laboratory Appointment Lab at [facility] Hematology Oncology [address] [place] [phone] 07/13/2024 11:30 AM EDT Office Visit Hematology [place] [phone] Salena Alvares [facility] [place] [address] 07/13/2024 12:45 PM EDT Appointment Hematology [place] [phone] documented as of this encounter Procedures Procedure [...] have questions please contact the health healthcare administration internship that requested your imaging first. ? Electronically signed by: Malgorzata De Santiago [facility] ([phone]), at 01/21/2024 3:42 PM Narrative 01/21/2024 3:42 [...] contrast enhancement curve analysis was performed, using [employer] software. COMPARISON STUDIES: Compared and/or correlated with [...] chest wall or skin. Hailey Dawson MD G MRI ORDERABLES documented in this encounter Visit [...] mLs documented in this encounter Care Teams Lead Tinner Relationship Specialty Start Date End Date [place] [address] PCP - General General Internal Medicine 08/04/22 documented as of this encounter
--- OUTSIDE RECORDS SUMMARY | 2024-04-29 01:54 | XMS_ITS | Encounter Summary ---
Author Organization [facility] [place] [address] Care Team Providers Care Warranty Coordinator Name Role Phone Haylie Steward MD Primary Care Provider [phone] Encounter Details Date Type Department Care Team [...] Scheduled View Only Radiation Oncology at [address] [phone] 05/02/2024 3:45 PM EST Scheduled View Only Radiation Oncology at [address] [address] 05/03/2024 1:45 PM EST Scheduled View Only Radiation Oncology at [address] [address] 05/03/2024 2:15 PM EST Office Visit Radiation Oncology at [address] [address] Ofe Fonseca MD [facility] [place] [address] 05/05/2024 8:15 AM EST Scheduled View Only Radiation Oncology at [address] [address] 05/06/2024 12:30 PM EST Scheduled View Only Radiation Oncology at [address] [address] 05/09/2024 12:30 PM EST Scheduled View Only Radiation Oncology at [address] [address] 05/10/2024 2:30 PM EST Scheduled View Only Radiation Oncology at [address] [address] 05/10/2024 3:15 PM EST Office Visit Radiation Oncology at [address] [address] Ofe Fosneca MD [facility] [address] 05/11/2024 2:30 PM EST Scheduled View Only Radiation Oncology at [address] [address] 05/11/2024 3:15 PM EST Scheduled View Only Radiation Oncology at [address] [address] Ofe Fonseca MD [facility] [place] [address] 05/12/2024 2:45 PM EST Scheduled View Only Radiation Oncology at [address] [address] 06/03/2024 3:30 PM EST Appointment Ultrasound at [place] [phone] Mira Hutchison [facility] [address] 06/23/2024 4:00 PM EST Appointment Mammography/DXA at [place] [phone] Miryam Feliciano MD [facility] [place] [address] 07/12/2024 8:00 AM EDT Laboratory Appointment Lab [address] [place], [place] [phone] 07/12/2024 9:30 AM EDT Office Visit Nephrology Hypertension at [place] [phone] Sharmin Jean-Baptiste, [facility] [place] [address] 07/13/2024 10:30 AM EDT Laboratory Appointment Lab at [facility] Hematology Oncology [address] [place] [phone] 07/13/2024 11:30 AM EDT Office Visit Hematology [place] [phone] Salena Alvares [facility] [place] [address] 07/13/2024 12:45 PM EDT Appointment Hematology [place] [phone] documented as of this encounter Visit Diagnoses Not on filedocumented in this encounter Care Teams Warranty Coordinator Relationship Specialty Start Date End Date Haylie Steward MD [facility] [place] [address] PCP - General General Internal Medicine 08/04/22 documented as of this encounter
--- OUTSIDE RECORDS SUMMARY | 2024-04-29 01:54 | XMS_ITS | Encounter Summary ---
[place] [address] Care Team Providers Care Supervisor Denture Department Name Role Phone Haylie Steward MD Primary Care Provider [phone] Encounter Details Date Type Department Care Team (Latest Contact Info) Description 07/28/2023 9:45 AM EDT Laboratory Appointment Lab [address] [place] [phone] Stage 3a chronic kidney disease (CKD) Social [...] Scheduled View Only Radiation Oncology at [address] [address] 05/02/2024 3:45 PM EST Scheduled View Only Radiation Oncology at [address] [address] 05/03/2024 1:45 PM EST Scheduled View Only Radiation Oncology at [address] [address] 05/03/2024 2:15 PM EST Office Visit Radiation Oncology at [address] [address] Ofe Fonseca MD [facility] [place] [address] 05/05/2024 8:15 AM EST Scheduled View Only Radiation Oncology at [address] [address] 05/06/2024 12:30 PM EST Scheduled View Only Radiation Oncology at [address] [address] 05/09/2024 12:30 PM EST Scheduled View Only Radiation Oncology at [address] [address] 05/10/2024 2:30 PM EST Scheduled View Only Radiation Oncology at [address] [address] 05/10/2024 3:15 PM EST Office Visit Radiation Oncology at [address] [address] Ofe Fonseca MD [facility] [place] [address] 05/11/2024 2:30 PM EST Scheduled View Only Radiation Oncology at [address] [address] 05/11/2024 3:15 PM EST Scheduled View Only Radiation Oncology at [address] [address] Ofe Fonseca MD [facility] [place] [address] 05/12/2024 2:45 PM EST Scheduled View Only Radiation Oncology at [address] [phone] 06/03/2024 3:30 PM EST Appointment Ultrasound at [place] [phone] Mira Hutchison INDUSTRIAL MAINTENANCE TECHNICIAN [facility] [place] [address] 06/23/2024 4:00 PM EST Appointment Mammography/[place] [phone] Miryam Feliciano MD [facility] [place] [address] 07/12/2024 8:00 AM EDT Laboratory Appointment Lab [address] [place], [place] [phone] 07/12/2024 9:30 AM EDT Office Visit Nephrology Hypertension at [place] [phone] Sharmin Jean-Baptiste [facility] [place] [address] 07/13/2024 10:30 AM EDT Laboratory Appointment Lab at [facility] Hematology Oncology [address] [place] [phone] 07/13/2024 11:30 AM EDT Office Visit Hematology [place] [phone] Salena Alvares [facility] [place] [address] 07/13/2024 12:45 PM EDT Appointment Hematology [place] [address] documented as of this encounter Procedures Procedure [...] EDT) Glucose, Urine Dipstick Negative Negative mg/dL [facility] Protein, Urine Dipstick Negative Negative mg/dL [facility] Bilirubin, Urine Dipstick Negative Negative mg/dL [facility] Comment: Clinical correlation required for positive Urine Bilirubin results as false positive may occur with some drugs and drug related products. If a false positive is suspected a serum total bilirubin should be considered if clinically indicated. Urobilinogen, Urine Dipstick Normal Normal mg/dL [facility] pH, Urn (dipstick) 6.5 5.0 - 8.0 [facility] Blood, Urine Dipstick Negative Negative mg/dL [facility] Ketone, Urine Dipstick Negative Negative mg/dL [facility] Nitrite, Urine Dipstick Negative Negative [facility] Leukocytes, Urine Dipstick Negative Negative [facility] Appearance, Urine Dipstick Clear Clear [facility] Specific [place]in Urine Automated 1.005 1.005 - 1.030 [facility] Color, Urine Dipstick Yellow Yellow [facility] RBC, Urine 0 0 - 4 /HPF [facility] WBC, Urine 0 0 - 5 /HPF [facility] Squamous Epithelial Cells Raw Data, Urine 1 <=4 /HPF [facility] Urine 07/28/2023 9:48 AM EDT 07/28/2023 10:01 AM EDT Narrative Resulting Agency Comment Spec In Lab Sharmin Jean-Baptiste INDUSTRIAL MAINTENANCE TECHNICIAN URINE ORDERABLES [facility] [place] [address] * Protein/Creatinine Ratio, urine (07/28/2023 9:48 AM EDT) Creatinine, Urine 9 mg/dL [facility] Protein, Urine <6 0 - 12 mg/dL [facility] Protein / Creatinine Ratio, Urine <0.7 ratio [facility] Urine 07/28/2023 9:48 AM EDT 07/28/2023 10:01 AM EDT Narrative Resulting Agency Comment Spec In Lab Sharmin Jean-Baptiste INDUSTRIAL MAINTENANCE TECHNICIAN URINE ORDERABLES [facility] [place] [address] * Differential, Automated (07/28/2023 9:47 AM EDT) Neutrophil % 61.5 % [facility] Neutrophil Absolute 3.60 1.70 - 6.10 x10(3)/[facility] Lymph % 27.4 % [facility] Lymphocytes Abs 1.6 0.9 - 3.2 x10(3)/[facility] Monocyte % 8.2 % [facility] Monocyte Abs 0.5 0.3 - 0.9 x10(3)/[facility] Eos % 2.1 % [facility] Eosinophils Abs 0.1 0.0 - 0.4 x10(3)/[facility] Basophil % 0.3 % [facility] Baso Absolute 0.0 0.0 - 0.1 x10(3)/[facility] Immature Gran % 0.50 % [facility] Comment: Immature granulocytes(IG's)percentage and absolute count will include metamyelocytes, myelocytes, and promyelocytes. Blood smears from CBCs yielding IG's will be scanned manually for concordance. If this scan disagrees with the automated IG or if promyelocytes are noted, a manual differential will be performed. Immature Gran Absolute 0.03 0.00 - 0.04 x10(3)/[facility] Blood 07/28/2023 9:47 AM EDT 07/28/2023 10:06 AM EDT Narrative Resulting Agency Comment Spec In Lab Sharmin Jean-Baptiste INDUSTRIAL MAINTENANCE TECHNICIAN HEMATOLOGY ORDERA BLES [facility] [place] [address] * (ABNORMAL) Hemogram (07/28/2023 9:47 AM EDT) White Blood Cell 5.8 4.0 - 9.5 x10(3)/mc L [facility] Red Blood Cell 4.74 4.00 - 5.21 x10(6)/mc L [facility] Hemoglobin 14.2 11.7 - 15.5 g/dL [facility] Hematocrit 45.2 35.7 - 45.8 % [facility] Mean Cell Volume 95.4(H) 82.6 - 94.4 fL [facility] Mean Cell Hemoglobin 30.0 27.1 - 32.0 pg [facility] Mean Cell Hemoglobin Concentration 31.4(L) 31.7 - 35.0 g/dL [facility] Platelet 210 145 - 357 x10(3)/mc L [facility] RDW Standard Deviation 56.6(H) 37.0 - 46.0 fL [facility] RDW coefficient of variation 15.9(H) 11.5 - 14.1 % [facility] Mean Platelet Volume 9.8 7.6 - 12.9 fL [facility] NRBC% auto 0.0 % [facility] NRBC Absolute 0.000 0.000 - 0.000 x10(3)/mc L [facility] Blood 07/28/2023 9:47 AM EDT 07/28/2023 10:06 AM EDT Narrative Resulting Agency Comment Spec In Lab Sharmin Jean-Baptiste INDUSTRIAL MAINTENANCE TECHNICIAN HEMATOLOGY ORDERA BLES [facility] [place] [address] * Albumin Level (07/28/2023 9:47 AM EDT) Albumin 4.3 3.2 - 5.2 g/dL [facility] Blood 07/28/2023 9:47 AM EDT 07/28/2023 10:06 AM EDT Narrative Resulting Agency Comment Spec In Lab Sharmin Jean-Baptiste INDUSTRIAL MAINTENANCE TECHNICIAN CHEMISTRY ORDERAB LES [facility] [place] [address] * (ABNORMAL) Basic Metabolic Panel (non-fasting) (07/28/2023 9:47 AM EDT) Glucose 72 65 - 199 mg/dL [facility] Comment:Diabetes: >=200 mg/d L plus symptoms Blood Urea Nitrogen 31(H) 8 - 18 mg/dL [facility] Creatinine 1.06 0.70 - 1.20 mg/dL [facility] Sodium 141 135 - 145 mmol/L [facility] Potassium 4.5 3.5 - 5.0 mmol/L [facility] Comment: Please note: ??Patients with WBC >100,000 may have falsely elevated Potassium levels. ??For accurate Potassium quantification in these patients send serum separator tube (gold top) for subsequent determinations. ??Contact the Clinical Chemistry Laboratory if there are any questions. Chloride 108(H) 98 - 107 mmol/L [facility] Carbon Dioxide 25 22 - 31 mmol/L [facility] Anion Gap 8 5 - 15 mmol/L [facility] Calcium 9.9 8.5 - 10.5 mg/dL [facility] Est Glomerular Filtration Rate 64 >=60 mL/min/1. 73 m?? [facility] Comment: This patient's estimated GFR [...] Agency Comment Spec In Lab Sharmingilberto Jean-Baptiste INDUSTRIAL MAINTENANCE TECHNICIAN CHEMISTRY ORDERAB LES Performing Organization Address City/[facility]/ZIP Co de Phone Number [facility] [place] [address] * Ferritin (07/28/2023 9:47 AM EDT) Ferritin 36 6 - 175 ng/mL [facility] Comment: Please note that as of 04/08/2023, the reference intervals for Ferritin have been updated. Blood 07/28/2023 9:47 AM EDT 07/28/2023 10:06 AM EDT Narrative Resulting Agency Comment Spec In Lab Sharmingilberto Jean-Baptiste INDUSTRIAL MAINTENANCE TECHNICIAN CHEMISTRY ORDERAB LES Performing Organization Address [facility] Co de Phone Number [facility] [place] [address] * Iron and TIBC (07/28/2023 9:47 AM EDT) Iron 94 30 - 150 mcg/dL [facility] TIBC 363 250 - 450 mcg/dL [facility] Iron Saturation 26 20 - 50 % [facility] Blood 07/28/2023 9:47 AM EDT 07/28/2023 10:06 AM EDT Narrative Resulting Agency Comment Spec In Lab Sharmingilberto Jean-Baptiste INDUSTRIAL MAINTENANCE TECHNICIAN CHEMISTRY ORDERAB LES Performing Organization Address City/[facility]/ZIP Co de Phone Number [facility] [place] [address] * Phosphorus (07/28/2023 9:47 AM EDT) Phosphorus 3.5 2.5 - 4.5 mg/dL [facility] Blood 07/28/2023 9:47 AM EDT 07/28/2023 10:06 AM EDT Narrative Resulting Agency Comment Spec In Lab Sharmin Jean-Baptiste INDUSTRIAL MAINTENANCE TECHNICIAN CHEMISTRY ORDERAB LES Performing Organization Address City/[facility]/ZIP Co de Phone Number [facility] [place] [address] * (ABNORMAL) PTH (07/28/2023 9:47 AM EDT) Parathyroid Hormone 121(H) 15 - 65 pg/mL [facility] Blood 07/28/2023 9:47 AM EDT 07/28/2023 10:06 AM EDT Narrative Resulting Agency Comment Spec In Lab Sharmingilberto Jean-Baptiste INDUSTRIAL MAINTENANCE TECHNICIAN CHEMISTRY ORDERAB LES Performing Organization Address [facility] Co de Phone Number [facility] [place] [address] * Vitamin D, 25-Hydroxy (07/28/2023 9:47 AM EDT) Vitamin D Total 25 OH 41 21 - 100 ng/mL [facility] Vit D Interp Sufficient [facility] Blood 07/28/2023 9:47 AM EDT 07/28/2023 10:06 AM EDT Narrative Resulting Agency Comment Spec In Lab Sharmin Jean-Baptiste INDUSTRIAL MAINTENANCE TECHNICIAN CHEMISTRY ORDERAB LES Performing Organization Address City/[facility] Co de Phone Number [facility] [place] [address] documented in this encounter Visit Diagnoses Diagnosis Stage 3a chronic kidney disease (CKD) documented in this encounter Care Teams Supervisor Denture Department Relationship Specialty Start Date End Date Haylie [place] [address] [place] [address] PCP - General General Internal Medicine 08/04/22 documented as of this encounter
--- OUTSIDE RECORDS SUMMARY | 2024-04-29 01:54 | XMS_ITS | Encounter Summary ---
Author Organization [facility] [place] [address] Care Team Providers Care Polytechnic Registrar Name Role Phone Haylie Steward MD Primary Care Provider [phone] Encounter Details Date Type Department Care Team [...] Scheduled View Only Radiation Oncology at [address] [address] 05/02/2024 3:45 PM EST Scheduled View Only Radiation Oncology at [address] [address] 05/03/2024 1:45 PM EST Scheduled View Only Radiation Oncology at [address] [address] 05/03/2024 2:15 PM EST Office Visit Radiation Oncology at [address] [address] Ofe Fonseca MD [facility] [place] [address] 05/05/2024 8:15 AM EST Scheduled View Only Radiation Oncology at [address] [address] 05/06/2024 12:30 PM EST Scheduled View Only Radiation Oncology at [address] [address] 05/09/2024 12:30 PM EST Scheduled View Only Radiation Oncology at [address] [address] 05/10/2024 2:30 PM EST Scheduled View Only Radiation Oncology at [address] [address] 05/10/2024 3:15 PM EST Office Visit Radiation Oncology at [address] [address] Ofe Fonseca MD [facility] [place] [address] 05/11/2024 2:30 PM EST Scheduled View Only Radiation Oncology at [address] [address] 05/11/2024 3:15 PM EST Scheduled View Only Radiation Oncology at [address] [address] Ofe Fonseca MD [facility] [place] [address] 05/12/2024 2:45 PM EST Scheduled View Only Radiation Oncology at [address] [address] 06/03/2024 3:30 PM EST Appointment Ultrasound at [place] [phone] Mira Hutchison [facility] [place] [address] 06/23/2024 4:00 PM EST Appointment Mammography/DXA at [place] [phone] Miryam Feliciano MD [facility] [place] [address] 07/12/2024 8:00 AM EDT Laboratory Appointment Lab [address] [place], [place] [phone] 07/12/2024 9:30 AM EDT Office Visit Nephrology Hypertension at [place] [phone] Sharmin Jean-Baptiste, [facility] [place] [address] 07/13/2024 10:30 AM EDT Laboratory Appointment Lab [place] [facility] [place] [address] [place] [phone] 07/13/2024 11:30 AM EDT Office Visit Hematology [place] [phone] Salena Alvares [facility] [place] [address] 07/13/2024 12:45 PM EDT Appointment Hematology [place] [phone] documented as of this encounter Visit Diagnoses Not on filedocumented in this encounter Care Teams Polytechnic Registrar Relationship Specialty Start Date End Date Haylie Steward MD [facility] [place] [address] PCP - General General Internal Medicine 08/04/22 documented as of this encounter
--- OUTSIDE RECORDS SUMMARY | 2024-04-29 01:54 | XMS_ITS | Encounter Summary ---
Author Organization [facility] [place] [address] Care Team Providers Care Process Control Tech Name Role Phone Haylie Steward MD Primary Care Provider [phone] Encounter Details Date Type Department Care Team [...] Scheduled View Only Radiation Oncology at [address] [address] 05/02/2024 3:45 PM EST Scheduled View Only Radiation Oncology at [address] [address] 05/03/2024 1:45 PM EST Scheduled View Only Radiation Oncology at [address] [address] 05/03/2024 2:15 PM EST Office Visit Radiation Oncology at [address] [address] Ofe Fonseca MD [facility] [place] [address] 05/05/2024 8:15 AM EST Scheduled View Only Radiation Oncology at [address] [address] 05/06/2024 12:30 PM EST Scheduled View Only Radiation Oncology at [address] [address] 05/09/2024 12:30 PM EST Scheduled View Only Radiation Oncology at [address] [address] 05/10/2024 2:30 PM EST Scheduled View Only Radiation Oncology at [address] [address] 05/10/2024 3:15 PM EST Office Visit Radiation Oncology at [address] [address] Ofe Fonseca MD [facility] [place] [address] 05/11/2024 2:30 PM EST Scheduled View Only Radiation Oncology at [address] [address] 05/11/2024 3:15 PM EST Scheduled View Only Radiation Oncology at [address] [address] Ofe Fonseca MD [facility] [place] [address] 05/12/2024 2:45 PM EST Scheduled View Only Radiation Oncology at [address] [address] 06/03/2024 3:30 PM EST Appointment Ultrasound at [place] [phone] Mira Hutchison [facility] [place] [address] 06/23/2024 4:00 PM EST Appointment Mammography/DXA at [place] [phone] Miryam Feliciano MD [facility] [place] [address] 07/12/2024 8:00 AM EDT Laboratory Appointment Lab [address] [place], [place] [phone] 07/12/2024 9:30 AM EDT Office Visit Nephrology Hypertension at [place] [phone] Sharmin Jean-Baptiste, [facility] [place] [address] 07/13/2024 10:30 AM EDT Laboratory Appointment Lab at [facility] Hematology Oncology [address] [place] [phone] 07/13/2024 11:30 AM EDT Office Visit Hematology [place] [phone] Salena Alvares [facility] [place] [address] 07/13/2024 12:45 PM EDT Appointment Hematology [place] [phone] documented as of this encounter Visit Diagnoses Not on filedocumented in this encounter Care Teams Process Control Tech Relationship Specialty Start Date End Date Haylie Steward MD [facility] [address] PCP - General General Internal Medicine 08/04/22 documented as of this encounter
--- OUTSIDE RECORDS SUMMARY | 2024-04-29 01:54 | XMS_ITS | Encounter Summary ---
Author Organization [facility] [place] [address] Care Team Providers Care Crown Presser Name Role Phone Haylie Steward MD Primary Care Provider [phone] Encounter Details Date Type Department Care Team [...] Scheduled View Only Radiation Oncology at [address] [phone] 05/02/2024 3:45 PM EST Scheduled View Only Radiation Oncology at [address] [address] 05/03/2024 1:45 PM EST Scheduled View Only Radiation Oncology at [address] [address] 05/03/2024 2:15 PM EST Office Visit Radiation Oncology at [address] [address] Ofe Fonseca MD [facility] RADI[place] [address] 05/05/2024 8:15 AM EST Scheduled View Only Radiation Oncology at [address] [address] 05/06/2024 12:30 PM EST Scheduled View Only Radiation Oncology at [address] [address] 05/09/2024 12:30 PM EST Scheduled View Only Radiation Oncology at [address] [address] 05/10/2024 2:30 PM EST Scheduled View Only Radiation Oncology at [address] [address] 05/10/2024 3:15 PM EST Office Visit Radiation Oncology at [address] [address] Ofe Fonseca MD [facility] [place] [address] 05/11/2024 2:30 PM EST Scheduled View Only Radiation Oncology at [address] [address] 05/11/2024 3:15 PM EST Scheduled View Only Radiation Oncology at [address] [address] Ofe Fonseca MD [facility] [place] [address] 05/12/2024 2:45 PM EST Scheduled View Only Radiation Oncology at [address] [address] 06/03/2024 3:30 PM EST Appointment Ultrasound at [place] [phone] Mira Hutchison [facility] [place] [address] 06/23/2024 4:00 PM EST Appointment Mammography/DXA at [place] [phone] Miryam Feliciano MD [facility] [place] [place] [address] 07/12/2024 8:00 AM EDT Laboratory Appointment Lab [address] [place], [place] [phone] 07/12/2024 9:30 AM EDT Office Visit Nephrology Hypertension at [place] [phone] Sharmin Jean-Baptiste, [facility] [place] [address] 07/13/2024 10:30 AM EDT Laboratory Appointment Lab at [facility] Hematology Oncology [address] [place] [phone] 07/13/2024 11:30 AM EDT Office Visit Hematology [place] [phone] Salena Alvares [facility] [place] [address] 07/13/2024 12:45 PM EDT Appointment Hematology [place] [phone] documented as of this encounter Visit Diagnoses Not on filedocumented in this encounter Care Teams Crown Presser Relationship Specialty Start Date End Date Haylie Steward MD [facility] [address] PCP - General General Internal Medicine 08/04/22 documented as of this encounter
--- OUTSIDE RECORDS SUMMARY | 2024-04-29 01:54 | XMS_ITS | Encounter Summary ---
Author Organization [facility] [place] [address] Care Team Providers Care Information Director Name Role Phone Haylie Steward MD Primary Care Provider [phone] Encounter Details Date Type Department Care Team [...] Scheduled View Only Radiation Oncology at [address] [address] 05/02/2024 3:45 PM EST Scheduled View Only Radiation Oncology at [address] [address] 05/03/2024 1:45 PM EST Scheduled View Only Radiation Oncology at [address] [address] 05/03/2024 2:15 PM EST Office Visit Radiation Oncology at [address] [address] Ofe Fonseca MD [facility] [place] [address] 05/05/2024 8:15 AM EST Scheduled View Only Radiation Oncology at [address] [address] 05/06/2024 12:30 PM EST Scheduled View Only Radiation Oncology at [address] [address] 05/09/2024 12:30 PM EST Scheduled View Only Radiation Oncology at [address] [address] 05/10/2024 2:30 PM EST Scheduled View Only Radiation Oncology at [address] [address] 05/10/2024 3:15 PM EST Office Visit Radiation Oncology at [address] [address] Ofe Fonseca MD [facility] RADI[place] [address] 05/11/2024 2:30 PM EST Scheduled View Only Radiation Oncology at [address] [address] 05/11/2024 3:15 PM EST Scheduled View Only Radiation Oncology at [address] [address] Oef Fonseca MD [facility] [place] [address] 05/12/2024 2:45 PM EST Scheduled View Only Radiation Oncology at [address] [address] 06/03/2024 3:30 PM EST Appointment Ultrasound at [place] [phone] Mira Hutchison [facility] [place] [address] 06/23/2024 4:00 PM EST Appointment Mammography/DXA at [place] [phone] Miryam Feliciano MD [facility] [place] [address] 07/12/2024 8:00 AM EDT Laboratory Appointment Lab [address] [place], [place] [phone] 07/12/2024 9:30 AM EDT Office Visit Nephrology Hypertension at [place] [phone] Sharmin Jean-Baptiste, [facility] [place] [address] 07/13/2024 10:30 AM EDT Laboratory Appointment Lab at [facility] Hematology Oncology [address] [place] [phone] 07/13/2024 11:30 AM EDT Office Visit Hematology [place] [phone] Salena Alvares [facility] [place] [address] 07/13/2024 12:45 PM EDT Appointment Hematology [place] [phone] documented as of this encounter Visit Diagnoses Not on filedocumented in this encounter Care Teams Information Director Relationship Specialty Start Date End Date Haylie Steward MD [place] [address] PCP - General General Internal Medicine 08/04/22 documented as of this encounter
--- OUTSIDE RECORDS SUMMARY | 2024-04-29 01:54 | XMS_ITS | Encounter Summary ---
Author Organization [facility] [place] [address] Care Team Providers Care Railroad Crane Operator Name Role Phone Haylie Steward MD Primary Care Provider [phone] Encounter Details Date Type Department Care Team [...] Scheduled View Only Radiation Oncology at [address] [address] 05/02/2024 3:45 PM EST Scheduled View Only Radiation Oncology at [address] [address] 05/03/2024 1:45 PM EST Scheduled View Only Radiation Oncology at [address] [address] 05/03/2024 2:15 PM EST Office Visit Radiation Oncology at [address] [address] Ofe Fonseca MD [facility] [place] [address] 05/05/2024 8:15 AM EST Scheduled View Only Radiation Oncology at [address] [address] 05/06/2024 12:30 PM EST Scheduled View Only Radiation Oncology at [address] [address] 05/09/2024 12:30 PM EST Scheduled View Only Radiation Oncology at [address] [address] 05/10/2024 2:30 PM EST Scheduled View Only Radiation Oncology at [address] [address] 05/10/2024 3:15 PM EST Office Visit Radiation Oncology at [address] [address] Ofe Fonseca MD [facility] [place] [address] 05/11/2024 2:30 PM EST Scheduled View Only Radiation Oncology at [address] [address] 05/11/2024 3:15 PM EST Scheduled View Only Radiation Oncology at [address] [address] Ofe Fonseca MD [facility] [place] [address] 05/12/2024 2:45 PM EST Scheduled View Only Radiation Oncology at [address] [address] 06/03/2024 3:30 PM EST Appointment Ultrasound at [place] [phone] Mira Hutchison [facility] [place] [address] 06/23/2024 4:00 PM EST Appointment Mammography/DXA at [place] [phone] Miryam Feliciano MD [facility] [place] [address] 07/12/2024 8:00 AM EDT Laboratory Appointment Lab [address] [place], [place] [phone] 07/12/2024 9:30 AM EDT Office Visit Nephrology Hypertension at [place] [phone] Sharmin Jean-Baptiste, [facility] [place] [address] 07/13/2024 10:30 AM EDT Laboratory Appointment Lab at [facility] Hematology Oncology [address] [place] [phone] 07/13/2024 11:30 AM EDT Office Visit Hematology [place] [phone] Salena Alvares [facility] [place] [place] [address] 07/13/2024 12:45 PM EDT Appointment Hematology [place] [phone] documented as of this encounter Visit Diagnoses Not on filedocumented in this encounter Care Teams Railroad Crane Operator Relationship Specialty Start Date End Date Haylie Steward MD [facility] [place] [address] PCP - General General Internal Medicine 08/04/22 documented as of this encounter
--- OUTSIDE RECORDS SUMMARY | 2024-04-29 01:54 | XMS_ITS | Encounter Summary ---
Author Organization [facility] [place] [address] Care Team Providers Care Kitchen Cleaner Name Role Phone Haylie Steward MD Primary Care Provider [phone] Encounter Details Date Type Department Care Team (Late st Contact Info) Description 12/31/2023 Orders Only Hematology [place] [address] [address] [facility] [place] [address] Hyperparathyroidism Social History Tobacco Use Types Packs/Day [...] Scheduled View Only Radiation Oncology at [address] [address] 05/02/2024 3:45 PM EST Scheduled View Only Radiation Oncology at [address] [address] 05/03/2024 1:45 PM EST Scheduled View Only Radiation Oncology at [address] [address] 05/03/2024 2:15 PM EST Office Visit Radiation Oncology at [address] [address] Ofe Fonseca MD [facility] [place] [address] 05/05/2024 8:15 AM EST Scheduled View Only Radiation Oncology at [address] [address] 05/06/2024 12:30 PM EST Scheduled View Only Radiation Oncology at [address] [address] 05/09/2024 12:30 PM EST Scheduled View Only Radiation Oncology at [address] [address] 05/10/2024 2:30 PM EST Scheduled View Only Radiation Oncology at [address] [address] 05/10/2024 3:15 PM EST Office Visit Radiation Oncology at [address] [address] Ofe Fonseca MD [facility] [place] [address] 05/11/2024 2:30 PM EST Scheduled View Only Radiation Oncology at [address] [address] 05/11/2024 3:15 PM EST Scheduled View Only Radiation Oncology at [address] [phone] Ofe Fonseca MD [facility] [place] [address] 05/12/2024 2:45 PM EST Scheduled View Only Radiation Oncology at [address] [phone] 06/03/2024 3:30 PM EST Appointment Ultrasound at [place] [phone] Mira Hutchison [facility] [place] [address] 06/23/2024 4:00 PM EST Appointment Mammography/DXA at [place] [phone] Miryam Feliciano MD [facility] [place] [address] 07/12/2024 8:00 AM EDT Laboratory Appointment Lab [address] [place], [place] [phone] 07/12/2024 9:30 AM EDT Office Visit Nephrology Hypertension at [place] [phone] Sharmin Jean-Baptiste [facility] [place] [address] 07/13/2024 10:30 AM EDT Laboratory Appointment Lab at [facility] Hematology Oncology [address] [place] [phone] 07/13/2024 11:30 AM EDT Office Visit Hematology [place] [address] Salena Alvares APRN [facility] [place] [address] 07/13/2024 12:45 PM EDT Appointment Hematology [place] [phone] documented as of this encounter Visit Diagnoses Diagnosis Hyperparathyroidism Hyperparathyroidism, unspecified documented in this encounter Care Teams Kitchen Cleaner Relationship Specialty Start Date [place] [address] PCP - General General Internal Medicine 08/04/22 documented as of this encounter
--- OUTSIDE RECORDS SUMMARY | 2024-04-29 01:54 | XMS_ITS | Encounter Summary ---
[place] [address] Care Team Providers Care Leather Goods Ii Assembler Name Role Phone Haylie Steward MD Primary Care Provider + [phone] Reason for Visit * Reason Comments Genetic Evaluation * Consultation (Priority 1) - Closed Specialty Diagnoses / Procedures Referred By Mirlande burroughs Referred To Contact Hematology and Oncology Diagnoses Hyperparathyroidism Hypocalciuria Angela Heredia MD [facility] [place] [address] [facility] [address] [place] [address] Referral ID Status Reason Start Date Expiration Date V isits Requested Visits Authorized [id number] Closed Consult, Test & Treat 07/16/2023 07/15/2024 1 1 Encounter Details Date Type Department Care Team (Late st Contact Info) Description 01/05/2024 10:00 AM EDT Office Visit H[place] [phone] Brandie Pickett, [facility] DR [place] [address] Hyperparathyroidism; Hypocalciuria; Family history of [...] of bipolar disorder and was previously on [place] starting from 2003 until September 2022, when [...] Initially thought that hyperparathyroidism was caused by 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 [place] use can be associated with 4 gland [...] history of hyperparathyroidism. Maternal ethnic background is [place]an, [place]uvian, and [place]onian. Paternal ethnic background is [place]ian, [place], and [place]. There is no known Ashkenazi Jew ancestry. Genetic risk assessment Based on Nataliya's [...] gene alteration. Nataliya opted for testing with [facility]'s Multi-Cancer Panel and Hereditary Hyperparathyroidism Panel,a next generation sequencing panel that simultaneously analyzes 74 genes, including FHH genes, BRCA1, and BRCA2, that contribute to increased risk for hyperparathyroidism and/or cancer. Nataliya was consented. Her blood sample was drawn and sent to [facility]. We reviewed [facility]'s billing policy. [facility] offers a patient assistance program (PAP) to help reduce the cost of testing. Once the insurance claim is settled, a career representative from [facility] will reach out to Nataliya to discuss [...] Scheduled View Only Radiation Oncology at [address] [address] 05/02/2024 3:45 PM EST Scheduled View Only Radiation Oncology at [address] [phone] 05/03/2024 1:45 PM EST Scheduled View Only Radiation Oncology at [address] [address] 05/03/2024 2:15 PM EST Office Visit Radiation Oncology at [address] [address] Ofe Fonseca MD [facility] [place] [address] 05/05/2024 8:15 AM EST Scheduled View Only Radiation Oncology at [address] [address] 05/06/2024 12:30 PM EST Scheduled View Only Radiation Oncology at [address] [address] 05/09/2024 12:30 PM EST Scheduled View Only Radiation Oncology at [address] [address] 05/10/2024 2:30 PM EST Scheduled View Only Radiation Oncology at [address] [address] 05/10/2024 3:15 PM EST Office Visit Radiation Oncology at [address] [address] Ofe Fonseca MD [facility] [place] [address] 05/11/2024 2:30 PM EST Scheduled View Only Radiation Oncology at [address] [phone] 05/11/2024 3:15 PM EST Scheduled View Only Radiation Oncology at [address] [phone] Ofe Fonseca MD [facility] [place] [address] 05/12/2024 2:45 PM EST Scheduled View Only Radiation Oncology at [address] [phone] 06/03/2024 3:30 PM EST Appointment Ultrasound at [address] Mira Hutchison ENTRY LEVEL CIVIL ENGINEER [facility] [place] [address] 06/23/2024 4:00 PM EST Appointment Mammography/DXA at [place] [phone] Miryam Feliciano MD [facility] [place] [address] 07/12/2024 8:00 AM EDT Laboratory Appointment Lab [address] [phone] 07/12/2024 9:30 AM EDT Office Visit Nephrology Hypertension at [place] [phone] Sharmin Jean-Baptiste [facility] [place] [address] 07/13/2024 10:30 AM EDT Laboratory Appointment Lab at [facility] Hematology Oncology [address] [place] [phone] 07/13/2024 11:30 AM EDT Office Visit Hematology [place] [address] Salena Alvares APRN [facility] [place] [address] 07/13/2024 12:45 PM EDT Appointment H[place]ology [place] [address] Scheduled Referrals Name Type Priority Associated Diagnoses Orde r Schedule Referral to Genetics Outpatient Referral Routine Hyperparathyroidism Hypocalciuria Ordered: 07/16/2023 documented as of this encounter Visit Diagnoses Diagnosis Hyperparathyroidism Hyperparathyroidism, unspecified Hypocalciuria Hypocalcemia Family history of malignant neoplasm of prostate Family history of pancreatic cancer Family history of malignant neoplasm of gastrointestinal tract documented in this encounter Care Teams Leather Goods Ii Assembler Relationship Specialty Start Date End [place] [address] PCP - General General Internal Medicine 08/04/22 documented as of this encounter
--- OUTSIDE RECORDS SUMMARY | 2024-04-29 01:54 | XMS_ITS | Encounter Summary ---
[place] [address] Care Team Providers Care Master Certified Rv Technician Name Role Phone Haylie Steward MD Primary Care Provider [phone] Encounter Details Date Type Department Care Team (Latest Contact Info) Description 01/05/2024 10:44 AM EDT - 01/05/2024 11:59 PM EDT Hospital Encounter Hematology [place] [address] Hyperparathyroidism Discharge Disposition: Home Social History Tobacco Use Types Packs/Day Years Used Date Smoking Tobacco: Never Smokeless Tobacco: Never Alcohol Use Standard Drinks/Week Comments Not Currently 0 (1 standard drink = 0.6 oz pur e alcohol) [facility] Inpatient Questions Answer Date Recorded Does Anyone [...] Scheduled View Only Radiation Oncology at [address] [address] 05/02/2024 3:45 PM EST Scheduled View Only Radiation Oncology at [address] [address] 05/03/2024 1:45 PM EST Scheduled View Only Radiation Oncology at [address] [address] 05/03/2024 2:15 PM EST Office Visit Radiation Oncology at [address] [address] Ofe Fonseca MD [facility] [place] [address] 05/05/2024 8:15 AM EST Scheduled View Only Radiation Oncology at [address] [address] 05/06/2024 12:30 PM EST Scheduled View Only Radiation Oncology at [address] [address] 05/09/2024 12:30 PM EST Scheduled View Only Radiation Oncology at [address] [address] 05/10/2024 2:30 PM EST Scheduled View Only Radiation Oncology at [address] [address] 05/10/2024 3:15 PM EST Office Visit Radiation Oncology at [address] [address] Ofe Fonseca MD [facility] [address] 05/11/2024 2:30 PM EST Scheduled View Only Radiation Oncology at [address] [address] 05/11/2024 3:15 PM EST Scheduled View Only Radiation Oncology at [address] [address] Ofe Fonseca MD [facility] [address] 05/12/2024 2:45 PM EST Scheduled View Only Radiation Oncology at [address] [address] 06/03/2024 3:30 PM EST [place] [phone] Mira Hutchison APRN [facility] [place] [address] 06/23/2024 4:00 PM EST Appointment Mammography/[place] [phone] Miryam Feliciano MD [facility] [place] [address] 07/12/2024 8:00 AM EDT Laboratory Appointment Lab [place] [address] 07/12/2024 9:30 AM EDT Office Visit Nephrology Hypertension at [place] [phone] Sharmin Jean-aBptiste, [facility] [place] [address] 07/13/2024 10:30 AM EDT Laboratory Appointment Lab at [facility] Hematology Oncology [address] [place] [address] 07/13/2024 11:30 AM EDT Office Visit Hematology and Oncology at [place] [phone] Salena Alvares, [facility] [place] [address] 07/13/2024 12:45 PM EDT Appointment Hematology and Oncology at [place] [phone] documented as of this encounter Visit Diagnoses Diagnosis Hyperparathyroidism Hyperparathyroidism, unspecified documented in this encounter Care Teams Master Certified Rv Technician Relationship Specialty Start Date [place] [address] PCP - General General Internal Medicine 08/04/22 documented as of this encounter
--- OUTSIDE RECORDS SUMMARY | 2024-04-29 01:54 | XMS_ITS | Encounter Summary ---
Author Organization [facility] [place] [address] Care Team Providers Care Air Defense Artillery Officer Name Role Phone Haylie Steward MD Primary Care Provider [phone] Encounter Details Date Type Department Care Team [...] Scheduled View Only Radiation Oncology at [address] [phone] 05/02/2024 3:45 PM EST Scheduled View Only Radiation Oncology at [address] [address] 05/03/2024 1:45 PM EST Scheduled View Only Radiation Oncology at [address] [address] 05/03/2024 2:15 PM EST Office Visit Radiation Oncology at [address] [address] Ofe Fonseca MD [facility] [place] [address] 05/05/2024 8:15 AM EST Scheduled View Only Radiation Oncology at [address] [address] 05/06/2024 12:30 PM EST Scheduled View Only Radiation Oncology at [address] [address] 05/09/2024 12:30 PM EST Scheduled View Only Radiation Oncology at [address] [address] 05/10/2024 2:30 PM EST Scheduled View Only Radiation Oncology at [address] [address] 05/10/2024 3:15 PM EST Office Visit Radiation Oncology at [address] [address] Ofe Fonseca MD [facility] [place] [address] 05/11/2024 2:30 PM EST Scheduled View Only Radiation Oncology at [address] [address] 05/11/2024 3:15 PM EST Scheduled View Only Radiation Oncology at [address] [address] Ofe Fonseca MD [facility] [place] [address] 05/12/2024 2:45 PM EST Scheduled View Only Radiation Oncology at [address] [address] 06/03/2024 3:30 PM EST Appointment Ultrasound at [place] [phone] Mira Hutchison [facility] [place] [address] 06/23/2024 4:00 PM EST Appointment Mammography/DXA at [place] [phone] Miryam Feliciano MD [facility] [place] [address] 07/12/2024 8:00 AM EDT Laboratory Appointment Lab [address] [place], [place] [phone] 07/12/2024 9:30 AM EDT Office Visit Nephrology Hypertension at [place] [phone] Sharmin Jean-Baptiste, [facility] [place] [address] 07/13/2024 10:30 AM EDT Laboratory Appointment Lab at [facility] Hematology Oncology [address] [place] [phone] 07/13/2024 11:30 AM EDT Office Visit [place] [phone] Salena Alvares [facility] [place] [address] 07/13/2024 12:45 PM EDT Appointment H[place]ology [place] [phone] documented as of this encounter Visit Diagnoses Not on filedocumented in this encounter Care Teams Air Defense Artillery Officer Relationship Specialty Start Date End Date Haylie Steward [place] [address] PCP - General General Internal Medicine 08/04/22 documented as of this encounter
--- OUTSIDE RECORDS SUMMARY | 2024-04-29 01:54 | XMS_ITS | Encounter Summary ---
Author Organization [facility] [place] [address] Care Team Providers Care Valve Steamer Name Role Phone Haylie Steward MD Primary Care Provider [phone] Encounter Details Date Type Department Care Team [...] Scheduled View Only Radiation Oncology at [address] [address] 05/02/2024 3:45 PM EST Scheduled View Only Radiation Oncology at [address] [address] 05/03/2024 1:45 PM EST Scheduled View Only Radiation Oncology at [address] [address] 05/03/2024 2:15 PM EST Office Visit Radiation Oncology at [address] [address] Ofe Fonseca MD [facility] RADIATION [place] [address] 05/05/2024 8:15 AM EST Scheduled View Only Radiation Oncology at [address] [address] 05/06/2024 12:30 PM EST Scheduled View Only Radiation Oncology at [address] [address] 05/09/2024 12:30 PM EST Scheduled View Only Radiation Oncology at [address] [address] 05/10/2024 2:30 PM EST Scheduled View Only Radiation Oncology at [address] [address] 05/10/2024 3:15 PM EST Office Visit Radiation Oncology at [address] [address] Ofe Fonseca MD [facility] [place] [address] 05/11/2024 2:30 PM EST Scheduled View Only Radiation Oncology at [address] [address] 05/11/2024 3:15 PM EST Scheduled View Only Radiation Oncology at [address] [address] Ofe Fonseca MD [facility] [place] [address] 05/12/2024 2:45 PM EST Scheduled View Only Radiation Oncology at [address] [address] 06/03/2024 3:30 PM EST Appointment Ultrasound at [place] [phone] Mira Hutchison [facility] [place] [address] 06/23/2024 4:00 PM EST Appointment Mammography/DXA at [place] [phone] Miryam Feliciano MD [facility] [place] [address] 07/12/2024 8:00 AM EDT Laboratory Appointment Lab [address] [place], [place] [phone] 07/12/2024 9:30 AM EDT Office Visit Nephrology Hypertension at [place] [phone] Sharmin Jean-Baptiste, [facility] [place] [address] 07/13/2024 10:30 AM EDT Laboratory Appointment Lab at [facility] Hematology Oncology [address] [place] [phone] 07/13/2024 11:30 AM EDT Office Visit Hematology [place] [address] Salena Alvares [facility] [place] [address] 07/13/2024 12:45 PM EDT Appointment Hematology [place] [phone] documented as of this encounter Visit Diagnoses Not on filedocumented in this encounter Care Teams Valve Steamer Relationship Specialty Start Date End Date Haylie Steward MD [facility] [place] [address] PCP - General General Internal Medicine 08/04/22 documented as of this encounter
--- OUTSIDE RECORDS SUMMARY | 2024-04-29 01:54 | XMS_ITS | Encounter Summary ---
[place] [address] Care Team Providers Care Return To Service Inspector Name Role Phone Haylie Steward MD Primary Care Provider [phone] Encounter Details Date Type Department Care Team (Latest Contact Info) Description 07/09/2023 7:55 AM EST Laboratory Appointment Lab [address] [place] [phone] Hypercalcemia; Hypothyroidism, acquired; Stage 3b chronic kidney [...] Scheduled View Only Radiation Oncology at [address] [phone] 05/02/2024 3:45 PM EST Scheduled View Only Radiation Oncology at [address] [address] 05/03/2024 1:45 PM EST Scheduled View Only Radiation Oncology at [address] [address] 05/03/2024 2:15 PM EST Office Visit Radiation Oncology at [address] [address] Ofe Fonseca MD [facility] RADI[place] [address] 05/05/2024 8:15 AM EST Scheduled View Only Radiation Oncology at [address] [address] 05/06/2024 12:30 PM EST Scheduled View Only Radiation Oncology at [address] [address] 05/09/2024 12:30 PM EST Scheduled View Only Radiation Oncology at [address] [address] 05/10/2024 2:30 PM EST Scheduled View Only Radiation Oncology at [address] [address] 05/10/2024 3:15 PM EST Office Visit Radiation Oncology at [address] [address] Ofe Fonseca MD [facility] [place] [address] 05/11/2024 2:30 PM EST Scheduled View Only Radiation Oncology at [address] [address] 05/11/2024 3:15 PM EST Scheduled View Only Radiation Oncology at [address] [address] Ofe Fonseca MD [facility] [place] [address] 05/12/2024 2:45 PM EST Scheduled View Only Radiation Oncology at [address] [address] 06/03/2024 3:30 PM EST Appointment Ultrasound at [place] [phone] Mira Hutchison [facility] [place] [address] 06/23/2024 4:00 PM EST Appointment Mammography/DXA at [place] [phone] Miryam Feliciano MD [facility] [place] [address] 07/12/2024 8:00 AM EDT Laboratory Appointment Lab [address] [place], [place] [phone] 07/12/2024 9:30 AM EDT Office Visit Nephrology Hypertension at [place] [phone] Sharmin Jean-Baptiste [facility] [place] [address] 07/13/2024 10:30 AM EDT Laboratory Appointment Lab at [facility] Hematology Oncology [address] [place] [phone] 07/13/2024 11:30 AM EDT Office Visit Hematology [place] [phone] Salena Alvares [facility] [place] [address] 07/13/2024 12:45 PM EDT Appointment Hematology [place] [address] documented as of this encounter Procedures Procedure [...] Alanine Aminotransferase 22 0 - 30 unit/L [facility] Blood 07/09/2023 8:12 AM EST 07/09/2023 8:16 AM EST Narrative Resulting Agency Comment Spec In Lab Michelet Monge MD CHEMISTRY ORDERABLES Performing Organization Address City/[facility]/ZIP Co de Phone Number [facility] [place] [address] * Aspartate Aminotransferase (07/09/2023 8:12 AM EST) Aspartate Aminotransferase 22 0 - 30 unit/L [facility] Blood 07/09/2023 8:12 AM EST 07/09/2023 8:16 AM EST Narrative Resulting Agency Comment Spec In Lab Michelet Monge MD CHEMISTRY ORDERABLES Performing Organization Address City/[facility]/ZIP Co de Phone Number [facility] [place] [address] * Alkaline Phosphatase (07/09/2023 8:12 AM EST) Alkaline Phosphatase 78 35 - 105 unit/L [facility] Blood 07/09/2023 8:12 AM EST 07/09/2023 8:16 AM EST Narrative Resulting Agency Comment Spec In Lab Michelet Monge MD CHEMISTRY ORDERABLES Performing Organization Address [facility] Co de Phone Number [facility] [place] [address] * (ABNORMAL) Cystatin C (07/09/2023 8:12 AM EST) Pathologist [facility] Cystatin C (SEPTEMBER) 1.23(H) 0.63 - 1.03 mg/L [facility] Comment: Test Performed by: [place] [address] Electrical Instrument Technician: Owen Zurita M.D. Ph.D.; CLIA# [id number] Cystatin C Egfr (SEPTEMBER) 58(L) >60 mL/min/BS A [facility] Comment: Estimated GFR calculated using [...] with the new assay. Test Performed by: [place] [address] Electrical Instrument Technician: Owen Zurita M.D. Ph.D.; CLIA# [id number] Blood 07/09/2023 8:12 AM EST 07/09/2023 12:53 PM EST Narrative Resulting Agency Comment Spec In Lab Angela Heredia MD LAB SEND OUT ORDERAB LES Performing Organization Address [facility] Co de Phone Number [facility] [place] [address] * TSH Mcintosh (07/09/2023 8:12 AM EST) Thyroid Stimulating Hormone 1.91 0.27 - 4.20 mcIU/mL [facility] Comment: Reference Interval (mcIU/mL): Females: ??First Trimester: 0.23-3.88 ??Second Trimester: 0.22-3.90 ??Third Trimester: 0.44-4.66 Blood 07/09/2023 8:12 AM EST 07/09/2023 8:16 AM EST Narrative Resulting Agency Comment Spec In Lab Angela Heredia MD CHEMISTRY ORDERABLES Performing Organization Address City/[facility]/ZIP Co de Phone Number [facility] [place] [address] * Calcium, Ionized, Serum (07/09/2023 8:12 AM EST) Ionized Calcium 1.32 1.15 - 1.33 mmol/L [facility] Comment: Note: Total bilirubin higher than 20 mg/dL may lead to falsely low ionized calcium. This test has not been cleared by the [place] FDA. Performance characteristics of this test were determined by [facility] in accordance with CLIA requirements. This laboratory is qualified under CLIA to perform high-complexity testing. Blood 07/09/2023 8:12 AM EST 07/09/2023 8:16 AM EST Narrative Resulting Agency Comment Spec In Lab Angela Heredia MD CHEMISTRY ORDERABLES Performing Organization Address City/[facility]/ZIP Co de Phone Number [facility] [place] [address] documented in this encounter Visit Diagnoses Diagnosis Hypercalcemia Hypothyroidism, acquired Unspecified hypothyroidism Stage 3b chronic kidney disease Bipolar 1 disorder Bipolar I disorder, most recent episode (or current) unspecified documented in this encounter Care Teams Return To Service Inspector Relationship Specialty Start Date [place] [address] PCP - General General Internal Medicine 08/04/22 documented as of this encounter
--- OUTSIDE RECORDS SUMMARY | 2024-04-29 01:54 | XMS_ITS | Encounter Summary ---
[place] [address] Care Team Providers Care Economics Faculty Member Name Role Phone Haylie Steward MD Primary Care Provider [phone] Encounter Details Date Type Department Care Team (Latest Contact Info) Description 10/26/2023 8:05 AM EDT Laboratory Appointment Lab [address] [place] [phone] CKD (chronic kidney disease) stage 2, GFR [...] Scheduled View Only Radiation Oncology at [address] [phone] 05/02/2024 3:45 PM EST Scheduled View Only Radiation Oncology at [address] [phone] 05/03/2024 1:45 PM EST Scheduled View Only Radiation Oncology at [address] [phone] 05/03/2024 2:15 PM EST Office Visit Radiation Oncology at [address] [phone] Ofe Fonseca MD [facility] [place] [address] 05/05/2024 8:15 AM EST Scheduled View Only Radiation Oncology at [address] [phone] 05/06/2024 12:30 PM EST Scheduled View Only Radiation Oncology at [address] [phone] 05/09/2024 12:30 PM EST Scheduled View Only Radiation Oncology at [address] [phone] 05/10/2024 2:30 PM EST Scheduled View Only Radiation Oncology at [address] [phone] 05/10/2024 3:15 PM EST Office Visit Radiation Oncology at [address] [phone] Ofe Fonseca MD [facility] [place] [address] 05/11/2024 2:30 PM EST Scheduled View Only Radiation Oncology at [address] [phone] 05/11/2024 3:15 PM EST Scheduled View Only Radiation Oncology at [address] [phone] Ofe Fonseca MD [facility] [place] [address] 05/12/2024 2:45 PM EST Scheduled View Only Radiation Oncology at [address] [phone] 06/03/2024 3:30 PM EST Appointment Ultrasound at [place] [phone] Mira Hutchison, [facility] [place] [address] 06/23/2024 4:00 PM EST Appointment Mammography/DXA at [place] [phone] Miryam Feliciano MD [facility] [place] [address] 07/12/2024 8:00 AM EDT Laboratory Appointment Lab [address] [place], [place] [phone] 07/12/2024 9:30 AM EDT Office Visit Nephrology Hypertension at [place] [phone] Sharmin Jean-Baptiste [facility] [place] [address] 07/13/2024 10:30 AM EDT Laboratory Appointment Lab at [facility] Hematology Oncology [address] [place] [phone] 07/13/2024 11:30 AM EDT Office Visit Hematology [place] [phone] ABSTRACTOR [facility] [place] [address] 07/13/2024 12:45 PM EDT Appointment Hematology [place] [phone] documented as of this encounter [...] 9:38 AM EDT) Creatinine, Urine 13 mg/dL [facility] Protein, Urine <6 0 - 12 mg/dL [facility] Protein / Creatinine Ratio, Urine <0.5 ratio [facility] Urine 10/26/2023 9:38 AM EDT 10/26/2023 9:47 AM EDT Narrative Resulting Agency Comment Spec In Lab Sharmin Jean-Baptiste APRN URINE ORDERABLES [facility] [place] [address] * _Urinalysis with microscopic (10/26/2023 9:38 AM EDT) Glucose, Urine Dipstick Negative Negative mg/dL [facility] Protein, Urine Dipstick Negative Negative mg/dL [facility] Bilirubin, Urine Dipstick Negative Negative mg/dL [facility] Comment: Clinical correlation required for positive Urine Bilirubin results as false positive may occur with some drugs and drug related products. If a false positive is suspected a serum total bilirubin should be considered if clinically indicated. Urobilinogen, Urine Dipstick Normal Normal mg/dL [facility] pH, Urn (dipstick) 6.5 5.0 - 8.0 [facility] Blood, Urine Dipstick Negative Negative mg/dL [facility] Ketone, Urine Dipstick Negative Negative mg/dL [facility] Nitrite, Urine Dipstick Negative Negative [facility] Leukocytes, Urine Dipstick Negative Negative [facility] Appearance, Urine Dipstick Clear Clear [facility] Specific [place] Urine Automated 1.006 1.005 - 1.030 [facility] Color, Urine Dipstick Yellow Yellow [facility] RBC, Urine 0 0 - 4 /HPF [facility] WBC, Urine 0 0 - 5 /HPF [facility] Squamous Epithelial Cells Raw Data, Urine 1 <=4 /HPF [facility] Urine 10/26/2023 9:38 AM EDT 10/26/2023 9:47 AM EDT Narrative Resulting Agency Comment Spec In Lab Sharmin Jean-Baptiste COURT ABSTRACTOR URINE ORDERABLES [facility] [place] [id number] * Differential, Automated (10/26/2023 8:27 AM EDT) Neutrophil % 58.3 % [facility] Neutrophil Absolute 2.94 1.70 - 6.10 x10(3)/[facility] Lymph % 29.0 % [facility] Lymphocytes Abs 1.5 0.9 - 3.2 x10(3)/[facility] Monocyte % 8.7 % [facility] Monocyte Abs 0.4 0.3 - 0.9 x10(3)/[facility] Eos % 3.4 % [facility] Eosinophils Abs 0.2 0.0 - 0.4 x10(3)/[facility] Basophil % 0.4 % [facility] Baso Absolute 0.0 0.0 - 0.1 x10(3)/[facility] Immature Gran % 0.20 % [facility] Comment: Immature granulocytes(IG's)percentage and absolute count will include metamyelocytes, myelocytes, and promyelocytes. Blood smears from CBCs yielding IG's will be scanned manually for concordance. If this scan disagrees with the automated IG or if promyelocytes are noted, a manual differential will be performed. Immature Gran Absolute 0.01 0.00 - 0.04 x10(3)/[facility] Blood 10/26/2023 8:27 AM EDT 10/26/2023 8:33 AM EDT Narrative Resulting Agency Comment Spec In Lab Sharmin Jean-Baptiste COURT ABSTRACTOR HEMATOLOGY ORDERA BLES [facility] [place] [place] [address] * (ABNORMAL) Hemogram (10/26/2023 8:27 AM EDT) White Blood Cell 5.0 4.0 - 9.5 x10(3)/[facility] Red Blood Cell 4.77 4.00 - 5.21 x10(6)/[facility] Hemoglobin 14.9 11.7 - 15.5 g/dL [facility] Hematocrit 46.4(H) 35.7 - 45.8 % [facility] Mean Cell Volume 97.3(H) 82.6 - 94.4 fL [facility] Mean Cell Hemoglobin 31.2 27.1 - 32.0 pg [facility] Mean Cell Hemoglobin Concentration 32.1 31.7 - 35.0 g/dL [facility] Platelet 187 145 - 357 x10(3)/[facility] RDW Standard Deviation 47.1(H) 37.0 - 46.0 fL [facility] RDW coefficient of variation 13.2 11.5 - 14.1 % [facility] Mean Platelet Volume 9.5 7.6 - 12.9 fL [facility] NRBC% auto 0.0 % [facility] NRBC Absolute 0.000 0.000 - 0.000 x10(3)/mc L [facility] Blood 10/26/2023 8:27 AM EDT 10/26/2023 8:33 AM EDT Narrative Resulting Agency Comment Spec In Lab Sharmin Jean-Baptiste COURT ABSTRACTOR HEMATOLOGY ORDERA BLES Performing Organization Address [facility] Co de Phone Number [facility] [place] [address] * Valproic Acid Level, Total (10/26/2023 8:27 AM EDT) Valproic Acid 80 mg/L [facility] Comment: Therapeutic Range: Anticonvulsant Therapy: ??50-100 mg/L Manic Episodes Associated with Bipolar Disorder: ??50-125 mg/L Blood 10/26/2023 8:27 AM EDT 10/26/2023 8:33 AM EDT Narrative Resulting Agency Comment Spec In Lab Michelet Monge MD CHEMISTRY ORDERABLES Performing Organization Address [facility] Co de Phone Number [facility] [place] [address] * TSH (10/26/2023 8:27 AM EDT) Thyroid Stimulating Hormone 1.89 0.27 - 4.20 mcIU/mL [facility] Comment: Reference Interval (mcIU/mL): Females: ??First Trimester: 0.23-3.88 ??Second Trimester: 0.22-3.90 ??Third Trimester: 0.44-4.66 Blood 10/26/2023 8:27 AM EDT 10/26/2023 8:33 AM EDT Narrative Resulting Agency Comment Spec In Lab Michelet Monge MD CHEMISTRY ORDERABLES Performing Organization Address [facility] Co de Phone Number [facility] [place] [address] * Ferritin (10/26/2023 8:27 AM EDT) Ferritin 45 6 - 175 ng/mL [facility] Comment: Please note that as of 04/08/2023, the reference intervals for Ferritin have been updated. Blood 10/26/2023 8:27 AM EDT 10/26/2023 8:33 AM EDT Narrative Resulting Agency Comment Spec In Lab Sharmin L Est[address] ABSTRACTOR CHEMISTRY ORDERAB LES Performing Organization Address [facility] Co de Phone Number [facility] [place] [address] * Iron and TIBC (10/26/2023 8:27 AM EDT) Iron 89 30 - 150 mcg/dL [facility] TIBC 323 250 - 450 mcg/dL [facility] Iron Saturation 28 20 - 50 % [facility] Blood 10/26/2023 8:27 AM EDT 10/26/2023 8:33 AM EDT Narrative Resulting Agency Comment Spec In Lab Sharmin L Est[address] ABSTRACTOR CHEMISTRY ORDERAB LES Performing Organization Address [facility] Co de Phone Number [facility] [place] [address] * Phosphorus (10/26/2023 8:27 AM EDT) Phosphorus 3.2 2.5 - 4.5 mg/dL [facility] Blood 10/26/2023 8:27 AM EDT 10/26/2023 8:33 AM EDT Narrative Resulting Agency Comment Spec In Lab Sharmin L Est[address] ABSTRACTOR CHEMISTRY ORDERAB LES Performing Organization Address [facility] Co de Phone Number [facility] [place] [address] * Vitamin D, 25-Hydroxy (10/26/2023 8:27 AM EDT) Vitamin D Total 25 OH 33 21 - 100 ng/mL [facility] Vit D Interp Sufficient [facility] Blood 10/26/2023 8:27 AM EDT 10/26/2023 8:33 AM EDT Narrative Resulting Agency Comment Spec In Lab Sharmin Jean-Baptiste COURT ABSTRACTOR CHEMISTRY ORDERAB LES Performing Organization Address City/[facility]/ZIP Co de Phone Number [facility] [place] [place] [address] * (ABNORMAL) PTH (10/26/2023 8:27 AM EDT) Parathyroid Hormone 103(H) 15 - 65 pg/mL [facility] Blood 10/26/2023 8:27 AM EDT 10/26/2023 8:33 AM EDT Narrative Resulting Agency Comment Spec In Lab Sharmin Jean-Baptiste COURT ABSTRACTOR CHEMISTRY ORDERAB LES Performing Organization Address City/[facility]/ZIP Co de Phone Number [facility] [place] [address] * (ABNORMAL) Basic Metabolic Panel (non-fasting) (10/26/2023 8:27 AM EDT) Glucose 72 65 - 199 mg/dL [facility] Comment:Diabetes: >=200 mg/d L plus symptoms Blood Urea Nitrogen 32(H) 8 - 18 mg/dL [facility] Creatinine 1.05 0.70 - 1.20 mg/dL [facility] Sodium 139 135 - 145 mmol/L [facility] Potassium 4.3 3.5 - 5.0 mmol/L [facility] Comment: Please note: ??Patients with WBC >100,000 may have falsely elevated Potassium levels. ??For accurate Potassium quantification in these patients send serum separator tube (gold top) for subsequent determinations. ??Contact the Clinical Chemistry Laboratory if there are any questions. Chloride 108(H) 98 - 107 mmol/L [facility] Carbon Dioxide 22 22 - 31 mmol/L [facility] Anion Gap 9 5 - 15 mmol/L [facility] Calcium 10.3 8.5 - 10.5 mg/dL [facility] Est Glomerular Filtration Rate 65 >=60 mL/min/1. 73 m?? [facility] Comment: This patient's estimated [...] Comment Spec In Lab Sharmin L Estiven [address] ABSTRACTOR CHEMISTRY ORDERAB LES Performing Organization Address [facility]/ZIP Co de Phone Number [facility] [place] [address] * Albumin Level (10/26/2023 8:27 AM EDT) Albumin 3.9 3.2 - 5.2 g/dL [facility] Blood 10/26/2023 8:27 AM EDT 10/26/2023 8:33 AM EDT Narrative Resulting Agency Comment Spec In Lab Sharmin L [address] ABSTRACTOR CHEMISTRY ORDERAB LES Performing Organization Address City/[facility]/ZIP Co de Phone Number [facility] [place] [place] [address] documented in this encounter Visit Diagnoses Diagnosis CKD (chronic kidney disease) stage 2, GFR 60-89 ml/min Chronic kidney disease, Stage II (mild) Hyperparathyroidism Hyperparathyroidism, unspecified Bipolar 1 disorder Bipolar I disorder, most recent episode (or current) unspecified documented in this encounter Care Teams Economics Faculty Member Relationship Specialty Start Date [place] [address] PCP - General General Internal Medicine 08/04/22 documented as of this encounter
--- OUTSIDE RECORDS SUMMARY | 2024-04-29 01:54 | XMS_ITS | Encounter Summary ---
Author Organization [facility] [place] [address] Care Team Providers Care Chemical Production Machine Operator Name Role Phone Haylie Steward MD Primary Care Provider [phone] Encounter Details Date Type Department Care Team (Late st Contact Info) Description 01/14/2024 Interpretation Only [address] [phone] Mario Lee MD [facility] [place] [address] Social History Tobacco Use Types Packs/Day Years [...] EST Scheduled View Only Radiation Oncology at [address] [phone] 05/02/2024 3:45 PM EST Scheduled View Only Radiation Oncology at [address] [phone] 05/03/2024 1:45 PM EST Scheduled View Only Radiation Oncology at [address] [phone] 05/03/2024 2:15 PM EST Office Visit Radiation Oncology at [address] [phone] Ofe Fonseca MD [facility] [place] [address] 05/05/2024 8:15 AM EST Scheduled View Only Radiation Oncology at [address] [phone] 05/06/2024 12:30 PM EST Scheduled View Only Radiation Oncology at [address] [phone] 05/09/2024 12:30 PM EST Scheduled View Only Radiation Oncology at [address] [phone] 05/10/2024 2:30 PM EST Scheduled View Only Radiation Oncology at [address] [phone] 05/10/2024 3:15 PM EST Office Visit Radiation Oncology at [address] [phone] Ofe Fosneca MD [facility] [place] [address] 05/11/2024 2:30 PM EST Scheduled View Only Radiation Oncology at [address] [phone] 05/11/2024 3:15 PM EST Scheduled View Only Radiation Oncology at [address] [phone] Ofe Fonseca MD [facility] [place] [address] 05/12/2024 2:45 PM EST Scheduled View Only Radiation Oncology at [address] [phone] 06/03/2024 3:30 PM EST Appointment Ultrasound at [place] [phone] Mira Hutchison ENTRY LEVEL CHEMIST [facility] [place] [address] 06/23/2024 4:00 PM EST Appointment Mammography/DXA at [place] [phone] Miryam Feliciano MD [facility] [place] [address] 07/12/2024 8:00 AM EDT Laboratory Appointment Lab [address] [place], [place] [phone] 07/12/2024 9:30 AM EDT Office Visit Nephrology Hypertension at [place] [phone] Sharmin Jean-Baptiste [facility] [place] [address] 07/13/2024 10:30 AM EDT Laboratory Appointment Lab at [facility] Hematology Oncology [address] [place] [phone] 07/13/2024 11:30 AM EDT Office Visit Hematology [place] [phone] Salena Alvares APRN [facility] [place] [address] 07/13/2024 12:45 PM EDT Appointment Hematology and Oncology at [place] [phone] documented as of this encounter Procedures Procedure Name Priority Date/Time Associated Diagnosis Comments MAMMO BREAST US LIMITED LEFT Routine 01/14/2024 1:23 PM EDT documented in this encounter Results * US Breast Limited Left (01/14/2024 1:23 PM EDT) PT CLASS O RAD ADMITDTTM [id number] RAD PT RAD INFO [id number]^Viadanielleme nski^Mario RAD EXAM DESC MAUBRL^US Breast Limited [...] have questions please contact the health care transition manager that requested your imaging first. ? Narrative 01/14/2024 2:17 PM EDT EXAMINATION: US [...] patients who have questions please contactthe health care transition manager that requested your imaging first. Mario Lee MD IMG MAMMO ORDERAB LES documented in this encounter Visit Diagnoses Not on filedocumented in this encounter Care Teams Chemical Production Machine Operator Relationship Specialty Start Date End Date Haylie Steward MD [facility] [place] [address] PCP - General General Internal Medicine 08/04/22 documented as of this encounter
--- OUTSIDE RECORDS SUMMARY | 2024-04-29 01:54 | XMS_ITS | Encounter Summary ---
Author Organization [facility] [place] [address] Care Team Providers Care Patient Registration Representative Name Role Phone Haylie Steward MD Primary Care Provider + [phone] Encounter Details Date Type Department Care Team (Latest Contact Info) Description 07/28/2023 11:00 AM EDT Office Visit Ne[place] [address] Sharmin Jean-Baptiste APRN [facility] [place] [address] Stage 3a chronic kidney disease (CKD); CKD (chronic kidney disease) stage 2, GFR 60-89 ml/min; Hyperparathyroidism; White coat syndrome without diagnosis of hypertension Social History Tobacco Use Types Packs/Day Years Used Date Smoking Tobacco: Never Smokeless Tobacco: Never Alcohol Use Standard Drinks/Week Comments Not Currently 0 (1 standard drink = 0.6 oz pur e alcohol) [facility] Inpatient Questions Answer Date Recorded [...] were not included. Nephrology/Hypertension Clinic Follow-up Note [id number] ID: 48 y.o.year-old female being seen for [...] disease (CKD) N18.31 Hyperparathyroidism E21.3 Anemia D64.9 Slayden intoxication, accidental or unintentional, initial encounter T56.891A [...] Patient states it affects her bipolar medication Slayden. O: Vitals: 07/28/23 1053 BP: 138/56 BP [...] Negative mcL Appearance UA Clear Clear Spec [place] UA 1.005 1.005 - 1.030 Color UA [...] questions or concerns. >the total time spent [id number] AND total time the provider spent counseling was 30 minutes. CC: Haylie Steward MD @[email or web address]@ documented in this encounter Plan of Treatment Upcoming Encounters Date Type Department Care Team (Latest Contact Info) Description 04/29/2024 3:00 PM EST Scheduled View Only Radiation Oncology at [address] [address] 05/02/2024 3:45 PM EST Scheduled View Only Radiation Oncology at [address] [address] 05/03/2024 1:45 PM EST Scheduled View Only Radiation Oncology at [address] [address] 05/03/2024 2:15 PM EST Office Visit Radiation Oncology at [address] [address] Ofe Fonseca MD [facility] [place] [address] 05/05/2024 8:15 AM EST Scheduled View Only Radiation Oncology at [address] [address] 05/06/2024 12:30 PM EST Scheduled View Only Radiation Oncology at [address] [address] 05/09/2024 12:30 PM EST Scheduled View Only Radiation Oncology at [address] [address] 05/10/2024 2:30 PM EST Scheduled View Only Radiation Oncology at [address] [address] 05/10/2024 3:15 PM EST Office Visit Radiation Oncology at [address] [address] Ofe Fonseca MD [facility] [place] [address] 05/11/2024 2:30 PM EST Scheduled View Only Radiation Oncology at [address] [address] 05/11/2024 3:15 PM EST Scheduled View Only Radiation Oncology at [address] [address] Ofe Fonseca MD [facility] [place] [address] 05/12/2024 2:45 PM EST Scheduled View Only Radiation Oncology at [address] [address] 06/03/2024 3:30 PM EST [place] [address] Mira Hutchison APRN [facility] [place] [address] 06/23/2024 4:00 PM EST Appointment Mammography/[place] [phone] Miryam Feliciano MD [facility] [place] [address] 07/12/2024 8:00 AM EDT Laboratory Appointment Lab [address] [place] [phone] 07/12/2024 9:30 AM EDT Office Visit [place] [phone] Sharmin Jean-Baptiste, [facility] [place] [address] 07/13/2024 10:30 AM EDT Laboratory Appointment Lab at [facility] Hematology Oncology [address] [place] [phone] 07/13/2024 11:30 AM EDT Office Visit H[place]ology [place] [phone] Salena Alvares, [facility] [place] [address] 07/13/2024 12:45 PM EDT Appointment Hematology [place] [phone] documented as of this encounter Results * Protein/Creatinine Ratio, urine (07/28/2023 9:48 AM EDT) Creatinine, Urine 9 mg/dL [facility] Protein, Urine <6 0 - 12 mg/dL [facility] Protein / Creatinine Ratio, Urine <0.7 ratio [facility] Urine 07/28/2023 9:48 AM EDT 07/28/2023 10:01 AM EDT Narrative Resulting Agency Comment Spec In Lab Sharmin Jean-Baptiste [employer]ESS[employer] WORKER URINE ORDERABLES Performing Organization Address City/[facility] Co de Phone Number [facility] [place] [address] * _Urinalysis with microscopic (07/28/2023 9:48 AM EDT) Glucose, Urine Dipstick Negative Negative mg/dL [facility] Protein, Urine Dipstick Negative Negative mg/dL [facility] Bilirubin, Urine Dipstick Negative Negative mg/dL [facility] Comment: Clinical correlation required for positive Urine Bilirubin results as false positive may occur with some drugs and drug related products. If a false positive is suspected a serum total bilirubin should be considered if clinically indicated. Urobilinogen, Urine Dipstick Normal Normal mg/dL [facility] pH, Urn (dipstick) 6.5 5.0 - 8.0 [facility] Blood, Urine Dipstick Negative Negative mg/dL [facility] Ketone, Urine Dipstick Negative Negative mg/dL [facility] Nitrite, Urine Dipstick Negative Negative [facility] Leukocytes, Urine Dipstick Negative Negative [facility] Appearance, Urine Dipstick Clear Clear [facility] Specific [place] Urine Automated 1.005 1.005 - 1.030 [facility] Color, Urine Dipstick Yellow Yellow [facility] RBC, Urine 0 0 - 4 /HPF [facility] WBC, Urine 0 0 - 5 /HPF [facility] Squamous Epithelial Cells Raw Data, Urine 1 <=4 /HPF [facility] Urine 07/28/2023 9:48 AM EDT 07/28/2023 10:01 AM EDT Narrative Resulting Agency Comment Spec In Lab Sharmin Jean-Baptiste [employer] WORKER URINE ORDERABLES Performing Organization Address City/[facility]/ZIP Co de Phone Number [facility] [place] [address] * Vitamin D, 25-Hydroxy (07/28/2023 9:47 AM EDT) Vitamin D Total 25 OH 41 21 - 100 ng/mL [facility] Vit D Interp Sufficient [facility] Blood 07/28/2023 9:47 AM EDT 07/28/2023 10:06 AM EDT Narrative Resulting Agency Comment Spec In Lab Sharmingilberto Jean-Baptiste [employer]ESSING WORKER CHEMISTRY ORDERAB LES Performing Organization Address City/[facility]/ZIP Co de Phone Number [facility] [place] [address] * (ABNORMAL) PTH (07/28/2023 9:47 AM EDT) Parathyroid Hormone 121(H) 15 - 65 pg/mL [facility] Blood 07/28/2023 9:47 AM EDT 07/28/2023 10:06 AM EDT Narrative Resulting Agency Comment Spec In Lab Sharmingilberto Jean-Baptiste P[employer]ESSING WORKER CHEMISTRY ORDERAB LES Performing Organization Address City/[facility]/ZIP Co de Phone Number [facility] [place] [address] * Phosphorus (07/28/2023 9:47 AM EDT) Phosphorus 3.5 2.5 - 4.5 mg/dL [facility] Blood 07/28/2023 9:47 AM EDT 07/28/2023 10:06 AM EDT Narrative Resulting Agency Comment Spec In Lab Sharmingilberto Jean-Baptiste P[employer] DRESSING WORKER CHEMISTRY ORDERAB LES Performing Organization Address City/[facility]/ZIP Co de Phone Number [facility] [place] [address] * Iron and TIBC (07/28/2023 9:47 AM EDT) Pathologist [facility] Iron 94 30 - 150 mcg/dL [facility] TIBC 363 250 - 450 mcg/dL [facility] Iron Saturation 26 20 - 50 % [facility] Blood 07/28/2023 9:47 AM EDT 07/28/2023 10:06 AM EDT Narrative Resulting Agency Comment Spec In Lab Sharmin Jean-Baptiste P[employer] DRESSING WORKER CHEMISTRY ORDERAB LES Performing Organization Address [facility] Co de Phone Number [facility] [place] [address] * Ferritin (07/28/2023 9:47 AM EDT) [facility] Ferritin 36 6 - 175 ng/mL [facility] Comment: Please note that as of 04/08/2023, the reference intervals for Ferritin have been updated. Blood 07/28/2023 9:47 AM EDT 07/28/2023 10:06 AM EDT Narrative Resulting Agency Comment Spec In Lab Sharmin Jean-Baptiste P[employer]ESSING WORKER CHEMISTRY ORDERAB LES Performing Organization Address [facility] Co de Phone Number [facility] [place] [address] * (ABNORMAL) Basic Metabolic Panel (non-fasting) (07/28/2023 9:47 AM EDT) [facility] Glucose 72 65 - 199 mg/dL [facility] Comment:Diabetes: >=200 mg/d L plus symptoms Blood Urea Nitrogen 31(H) 8 - 18 mg/dL [facility] Creatinine 1.06 0.70 - 1.20 mg/dL [facility] Sodium 141 135 - 145 mmol/L [facility] Potassium 4.5 3.5 - 5.0 mmol/L [facility] Comment: Please note: ??Patients with WBC >100,000 may have falsely elevated Potassium levels. ??For accurate Potassium quantification in these patients send serum separator tube (gold top) for subsequent determinations. ??Contact the Clinical Chemistry Laboratory if there are any questions. Chloride 108(H) 98 - 107 mmol/L [facility] Carbon Dioxide 25 22 - 31 mmol/L [facility] Anion Gap 8 5 - 15 mmol/L [facility] Calcium 9.9 8.5 - 10.5 mg/dL [facility] Est Glomerular Filtration Rate 64 >=60 mL/min/1. 73 m?? [facility] Comment: This patient's estimated [...] Comment Spec In Lab Sharmin L Estiven P[employer]ESSING WORKER CHEMISTRY ORDERAB LES Performing Organization Address [facility]/ZIP Co de Phone Number [facility] [place] [address] * Albumin Level (07/28/2023 9:47 AM EDT) Albumin 4.3 3.2 - 5.2 g/dL [facility] Blood 07/28/2023 9:47 AM EDT 07/28/2023 10:06 AM EDT Narrative Resulting Agency Comment Spec In Lab Sharmin L Estiven POUL[employer] DRESSING WORKER CHEMISTRY ORDERAB LES Performing Organization Address [facility]/ZIP Co de Phone Number [facility] [place] [address] documented in this encounter Visit Diagnoses Diagnosis Stage 3a chronic kidney disease (CKD) CKD (chronic kidney disease) stage 2, GFR 60-89 ml/min Chronic kidney disease, Stage II (mild) Hyperparathyroidism Hyperparathyroidism, unspecified White coat syndrome without diagnosis of hypertension Elevated blood pressure reading without diagnosis of hypertension documented in this encounter Care Teams Patient Registration Representative Relationship Specialty Start Date [place] [address] PCP - General General Internal Medicine 08/04/22 documented as of this encounter
--- OUTSIDE RECORDS SUMMARY | 2024-04-29 01:54 | XMS_ITS | Encounter Summary ---
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 Rolly Cook MD [facility] DR [place]STRO[place] [address] [facility] [place] [place] [address] [place] [address] Referral ID Status Reason Start Date Expiration Date V isits Requested Visits Authorized [id number] Closed Consult, Test & Treat 06/29/2023 06/28/2024 1 1 Encounter Details Date Type Department Care Team (Late st Contact Info) Description 07/21/2023 10:20 AM EDT Office Visit Obstetrics [place] [phone] Madison Garcia MD [facility] DR OBSTETRICS AND [place] [address] Perimenopausal; Uterine leiomyoma, unspecified location [...] Hypothyroidism PSH Eye surgery Toe surgery 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 (Established patient total visit time: 67004 - 20min, 00146 - 30 min, 17303 - 40 min; New patient total visit times: 51842 - 30 min, 58960 - 45 min, 87006 - 60 min) Madison Garcia MD Obstetrics and Gynecology 07/21/2023 documented in this encounter Plan of Treatment Upcoming Encounters Date Type Department Care Team (Latest Contact Info) Description 04/29/2024 3:00 PM EST Scheduled View Only Radiation Oncology at [address] [address] 05/02/2024 3:45 PM EST Scheduled View Only Radiation Oncology at [address] [address] 05/03/2024 1:45 PM EST Scheduled View Only Radiation Oncology at [address] [address] 05/03/2024 2:15 PM EST Office Visit Radiation Oncology at [address] [address] Ofe Fonseca MD [facility] [place] [address] 05/05/2024 8:15 AM EST Scheduled View Only Radiation Oncology at [address] [address] 05/06/2024 12:30 PM EST Scheduled View Only Radiation Oncology at [address] [address] 05/09/2024 12:30 PM EST Scheduled View Only Radiation Oncology at [address] [address] 05/10/2024 2:30 PM EST Scheduled View Only Radiation Oncology at [address] [phone] 05/10/2024 3:15 PM EST Office Visit Radiation Oncology at [address] [address] Ofe Fonseac MD [facility] RADIATION [place] [address] 05/11/2024 2:30 PM EST Scheduled View Only Radiation Oncology at [address] [address] 05/11/2024 3:15 PM EST Scheduled View Only Radiation Oncology at [address] [address] Ofe Fonseca MD [facility] [place] [address] 05/12/2024 2:45 PM EST Scheduled View Only Radiation Oncology at [address] [phone] 06/03/2024 3:30 PM EST Appointment Ultrasound at [place] [phone] Mira Hutchison, [facility] [place] [address] 06/23/2024 4:00 PM EST Appointment Mammography/DXA at [place] [phone] Miryam Feliciano MD [facility] [place] [address] 07/12/2024 8:00 AM EDT Laboratory Appointment Lab [address] [place], [place] [phone] 07/12/2024 9:30 AM EDT Office Visit Nephrology Hypertension at [place] [phone] Sharmin Jean-Baptiste [facility] [place] [address] 07/13/2024 10:30 AM EDT Laboratory Appointment Lab at [facility] Hematology Oncology [address] [place], [place] [phone] 07/13/2024 11:30 AM EDT Office Visit Hematology [place] [address] Salena Alvares [facility] [place] [address] 07/13/2024 12:45 PM EDT Appointment Hematology and Oncology at [place] [phone] Scheduled Referrals Name Type Priority Associated Diagnoses Order Schedule Referral to Gynecologic Oncology Outpatient Referral Routine Fibroid Ordered: 06/29/2023 documented as of this encounter Visit Diagnoses Diagnosis Perimenopausal Symptomatic menopausal or female climacteric states Uterine leiomyoma, unspecified location documented in this encounter Care Teams Career Development Specialist Relationship Specialty Start Date [place] [address] PCP - General General Internal Medicine 08/04/22 documented as of this encounter
--- OUTSIDE RECORDS SUMMARY | 2024-04-29 01:54 | XMS_ITS | Encounter Summary ---
[place] [address] Care Team Providers Care Table Lever Operator Name Role Phone Haylie Steward MD Primary Care Provider + [phone] Reason for Referral * Consultation (Priority 1) - Closed Specialty Diagnoses / Procedures Referred By Contac t Referred To Contact Hematology and Oncology Diagnoses Hyperparathyroidism Hypocalciuria Angela Heredia MD [facility] [place] [address] [facility] [address] [place] [address] Referral ID Status Reason Start Date Expiration Date V isits Requested Visits Authorized [id number] Closed Consult, Test & Treat 07/16/2023 07/15/2024 1 1 Encounter Details Date Type Department Care Team (Late st Contact Info) Description 07/16/2023 Orders [place] [phone] Angela Heredia MD [facility] [place] [address] Hyperparathyroidism; Hypocalciuria Social History Tobacco Use Types Packs/Day Years Used Date Smoking Tobacco: Never Smokeless Tobacco: Never Alcohol Use Standard Drinks/Week Comments Not Currently 0 (1 standard drink = 0.6 oz pur e alcohol) [facility] Inpatient Questions Answer Date Recorded [...] Scheduled View Only Radiation Oncology at [address] [address] 05/02/2024 3:45 PM EST Scheduled View Only Radiation Oncology at [address] [address] 05/03/2024 1:45 PM EST Scheduled View Only Radiation Oncology at [address] [address] 05/03/2024 2:15 PM EST Office Visit Radiation Oncology at [address] [address] Ofe Fonseca MD [facility] [place] [address] 05/05/2024 8:15 AM EST Scheduled View Only Radiation Oncology at [address] [address] 05/06/2024 12:30 PM EST Scheduled View Only Radiation Oncology at [address] [address] 05/09/2024 12:30 PM EST Scheduled View Only Radiation Oncology at [address] [address] 05/10/2024 2:30 PM EST Scheduled View Only Radiation Oncology at [address] [phone] 05/10/2024 3:15 PM EST Office Visit Radiation Oncology at [address] [address] Ofe Fonseca MD [facility] [place] [address] 05/11/2024 2:30 PM EST Scheduled View Only Radiation Oncology at [address] [address] 05/11/2024 3:15 PM EST Scheduled View Only Radiation Oncology at [address] [address] Ofe Fonseca MD [facility] [place] [address] 05/12/2024 2:45 PM EST Scheduled View Only Radiation Oncology at [address] [address] 06/03/2024 3:30 PM EST Appointment Ultrasound at [place] [phone] Mira Hutchison APRN [facility] [place] [address] 06/23/2024 4:00 PM EST Appointment Mammography/[place] [phone] Miryam Feliciano MD [facility] [place] [address] 07/12/2024 8:00 AM EDT Laboratory Appointment Lab [place] [phone] 07/12/2024 9:30 AM EDT Office Visit Neph[place] [address] Sharmin Jean-Baptiste, [facility] [place] [address] 07/13/2024 10:30 AM EDT Laboratory Appointment Lab at [facility] Hematology Oncology [address] [place] [address] 07/13/2024 11:30 AM EDT Office Visit Hematology and Oncology at [place] [address] Salena Alvares, [facility] [place] [address] 07/13/2024 12:45 PM EDT Appointment Hematology and Oncology at [place] [address] Scheduled Referrals Name Type Priority Associated Diagnoses Orde r Schedule Referral to Genetics Outpatient Referral Routine Hyperparathyroidism Hypocalciuria Ordered: 07/16/2023 documented as of this encounter Visit Diagnoses Diagnosis Hyperparathyroidism Hyperparathyroidism, unspecified Hypocalciuria Hypocalcemia documented in this encounter Care Teams Table Lever Operator Relationship Specialty Start Date End Date Haylie [place] [address] PCP - General General Internal Medicine 08/04/22 documented as of this encounter
--- OUTSIDE RECORDS SUMMARY | 2024-04-29 01:54 | XMS_ITS | Encounter Summary ---
Author Organization [facility] [place] [address] Care Team Providers Care Transport Specialist Name Role Phone Haylie Steward MD Primary Care Provider [phone] Encounter Details Date Type Department Care Team (Late st Contact Info) Description 01/14/2024 Interpretation Only [address] [phone] Haylie Steward [place] [address] [place] [address] Social History Tobacco Use Types Packs/Day Years [...] Scheduled View Only Radiation Oncology at [address] [address] 05/02/2024 3:45 PM EST Scheduled View Only Radiation Oncology at [address] [address] 05/03/2024 1:45 PM EST Scheduled View Only Radiation Oncology at [address] [phone] 05/03/2024 2:15 PM EST Office Visit Radiation Oncology at [address] [address] [facility] RADIATION [place] [address] 05/05/2024 8:15 AM EST Scheduled View Only Radiation Oncology at [address] [address] 05/06/2024 12:30 PM EST Scheduled View Only Radiation Oncology at [address] [address] 05/09/2024 12:30 PM EST Scheduled View Only Radiation Oncology at [address] [phone] 05/10/2024 2:30 PM EST Scheduled View Only Radiation Oncology at [address] [address] 05/10/2024 3:15 PM EST Office Visit Radiation Oncology at [address] [address] [facility] [place] [address] 05/11/2024 2:30 PM EST Scheduled View Only Radiation Oncology at [address] [address] 05/11/2024 3:15 PM EST Scheduled View Only Radiation Oncology at [address] [phone] [facility] [place] [address] 05/12/2024 2:45 PM EST Scheduled View Only Radiation Oncology at [address] [phone] 06/03/2024 3:30 PM EST Appointment Ultrasound at [place] [phone] Mira Hutchison SAW REPAIRER [facility] [place] [address] 06/23/2024 4:00 PM EST Appointment Mammography/DXA at [place] [phone] [facility] [place] [address] 07/12/2024 8:00 AM EDT Laboratory Appointment Lab [address] [place], [place] [phone] 07/12/2024 9:30 AM EDT Office Visit Nephrology Hypertension at [place] [phone] Sharmin Jean-Baptiste [facility] [address] 07/13/2024 10:30 AM EDT Laboratory Appointment Lab at [facility] Hematology Oncology [address] [place] [phone] 07/13/2024 11:30 AM EDT Office Visit Hematology and Oncology at [place] [phone] [facility] [place] [address] 07/13/2024 12:45 PM EDT Appointment Hematology [place] [address] documented as of this encounter Procedures Procedure Name Priority Date/Time Associated Diagnosis Comments MAMMO SCREENING CAD BILATERAL (CH) Routine 01/14/2024 8:39 AM EDT documented in this encounter Results * MAMMO SCREENING CAD BILATERAL (CH) (01/14/2024 8:39 AM EDT) PT CLASS O RAD ADMITDTTM [id number] RAD PT RAD MD INFO [id number]^Steward^ Haylie RAD EXAM DESC MADDSCCH^MG Mammo Digital [...] who have questions please contact the health women's health care nurse practitioner that requested your imaging first. ? [address] ??[address] Narrative 01/14/2024 11:24 AM EDT EXAMINATION: MG [...] patients who have questions please contactthe health women's health care nurse practitioner that requested [place] [address] Haylie Steward MD PACS IMAGES documented in this encounter Visit Diagnoses Not on filedocumented in this encounter Care Teams Transport Specialist Relationship Specialty Start Date End Date Haylie Steward MD [facility] [place] [address] PCP - General General Internal Medicine 08/04/22 documented as of this encounter
--- OUTSIDE RECORDS SUMMARY | 2024-04-29 01:54 | XMS_ITS | Encounter Summary ---
Author Organization [place] [address] Care Team Providers Care Fast Food Manager Name Role Phone Haylie Steward MD Primary Care Provider + [phone] Encounter Details Date Type Department Care Team (Latest Contact Info) Description 08/24/2023 2:30 PM EDT TH Visit (TeleHealth) [place] [address] Rolly Cook MD [facility] [place] [address] Irritable bowel syndrome with both constipation and [...] Toe Surgery; Eye surgery; Upper GiEndoscopy, Biopsy (63107) (N/A, 06/11/2023); and Colonoscopy, Biopsy (96302) (N/A, 06/11/2023). Family History: family history includes [...] 08/23/2023 4:11 PM Q-GI [facility] Healthy Day Score 2 Work Absenteeism 0 Work Presenteeism 0.01 Laboratory studies, imaging, and procedures (in summary of my review of prior records): Fecal elastase was normal Stool O&P was negative MRI Enterography wwo Contrast Order: [id number] Status: Final result Visible to patient: Yes (seen) Next appt: Today at 02:30 PM in Gastroenterology (Rolly Cook MD) Dx: Irritable bowel syndrome with both co... 0 Result Notes 1 Follow-up Encounter Details Reading Physician Reading Date Result Priority Wenceslao Barksdale MD [phone] 2922 06/26/2023 Rober Del Rosario MD [phone] 06/26/2023 Narrative & Impression EXAMINATION: MRI [...] larger compared to ultrasounds from 2022. Consider AURIST consultation. 3. Numerous bilateral renal cysts consistent with history of lithium usage. HIGH-RESOLUTION ESOPHAGEAL MANOMETRY PROCEDURE NOTE Patient: Nataliya Morfin Address: [address] [address] : 1975 Date of service: 06/22/2023 Indication: [...] relaxation pressure: 0 mmHg (normal <12 mmHg) Signals Collector/Analyst swallow: Impressions based on Independence Classification v4.0: No evidence of a clinically [...] for re-evaluation. The patient was located in [place] at the time of their visit. TIME SPENT WITH PATIENT Time spent reviewing records prior to this encounter on day of appointment: 5 minutes Time spent during encounter with patient including counselin minutes Time spent documenting encounter after office visit: 2 minutes Rolly Cook [place] [facility] [place] [address] documented in this encounter Plan of Treatment Upcoming Encounters Date Type Department Care Team (Latest Contact Info) Description 04/29/2024 3:00 PM EST Scheduled View Only Radiation Oncology at [address] [phone] 05/02/2024 3:45 PM EST Scheduled View Only Radiation Oncology at [address] [phone] 05/03/2024 1:45 PM EST Scheduled View Only Radiation Oncology at [address] [phone] 05/03/2024 2:15 PM EST Office Visit Radiation Oncology at [address] [phone] Ofe Fonseca MD [facility] [place] [address] 05/05/2024 8:15 AM EST Scheduled View Only Radiation Oncology at [address] [address] 05/06/2024 12:30 PM EST Scheduled View Only Radiation Oncology at [address] [phone] 05/09/2024 12:30 PM EST Scheduled View Only Radiation Oncology at [address] [address] 05/10/2024 2:30 PM EST Scheduled View Only Radiation Oncology at [address] [address] 05/10/2024 3:15 PM EST Office Visit Radiation Oncology at [address] [address] Ofe Fonseca MD [facility] [place] [address] 05/11/2024 2:30 PM EST Scheduled View Only Radiation Oncology at [address] [address] 05/11/2024 3:15 PM EST Scheduled View Only Radiation Oncology at [address] [phone] Ofe Fonseca MD [facility] [place] [address] 05/12/2024 2:45 PM EST Scheduled View Only Radiation Oncology at [address] [address] 06/03/2024 3:30 PM EST Appointment [place] [address] Mira Hutchison APRN [facility] [place] [address] 06/23/2024 4:00 PM EST Appointment Mammography/DXA at [place] [phone] Miryam Feliciano MD [facility] [place] [address] 07/12/2024 8:00 AM EDT Laboratory Appointment Lab [address], [place] [address] 07/12/2024 9:30 AM EDT Office Visit Nephrology Hypertension at [place] [address] Sharmin Jean-Baptiste, [facility] [place] [address] 07/13/2024 10:30 AM EDT Laboratory Appointment Lab at [facility] Hematology Oncology [address] [place], [place] [phone] 07/13/2024 11:30 AM EDT Office Visit Hematology and Oncology at [place] [address] Salena Alvares, [facility] [place] [address] 07/13/2024 12:45 PM EDT Appointment Hematology and Oncology at [place] [phone] documented as of this encounter Visit Diagnoses Diagnosis Irritable bowel syndrome with both constipation and diarrhea documented in this encounter Care Teams Fast Food Manager Relationship Specialty Start Date [place] [address] PCP - General General Internal Medicine 08/04/22 documented as of this encounter
--- OUTSIDE RECORDS SUMMARY | 2024-04-29 01:54 | XMS_ITS | Encounter Summary ---
Author Organization [facility] [place] [address] Care Team Providers Care Clinical Research Management Associate Name Role Phone Haylie Steward MD Primary Care Provider + [phone] Encounter Details Date Type Department Care Team (Late st Contact Info) Description 01/14/2024 Interpretation Only [address] [phone] Mario Lee MD [facility] [place] [address] Social History Tobacco Use Types Packs/Day Years [...] Scheduled View Only Radiation Oncology at [address] [address] 05/02/2024 3:45 PM EST Scheduled View Only Radiation Oncology at [address] [address] 05/03/2024 1:45 PM EST Scheduled View Only Radiation Oncology at [address] [address] 05/03/2024 2:15 PM EST Office Visit Radiation Oncology at [address] [phone] Ofe Fonseca MD [facility] RADIATION [place] [address] 05/05/2024 8:15 AM EST Scheduled View Only Radiation Oncology at [address] [address] 05/06/2024 12:30 PM EST Scheduled View Only Radiation Oncology at [address] [address] 05/09/2024 12:30 PM EST Scheduled View Only Radiation Oncology at [address] [address] 05/10/2024 2:30 PM EST Scheduled View Only Radiation Oncology at [address] [address] 05/10/2024 3:15 PM EST Office Visit Radiation Oncology at [address] [address] Ofe Fonseca MD [facility] [place] [address] 05/11/2024 2:30 PM EST Scheduled View Only Radiation Oncology at [address] [address] 05/11/2024 3:15 PM EST Scheduled View Only Radiation Oncology at [address] [phone] Ofe Fonseca MD [facility] [place] [address] 05/12/2024 2:45 PM EST Scheduled View Only Radiation Oncology at [address] [phone] 06/03/2024 3:30 PM EST Appointment Ultrasound at [place] [phone] Mira Hutchison ROUTING MACHINE OPERATOR [facility] [place] [address] 06/23/2024 4:00 PM EST Appointment Mammography/DXA at [place] [phone] Miryam Feliciano MD [facility] [place] [address] 07/12/2024 8:00 AM EDT Laboratory Appointment Lab [address] [place], [place] [phone] 07/12/2024 9:30 AM EDT Office Visit Nephrology Hypertension at [place] [phone] Sharmin Jean-Baptiste [facility] [place] [address] 07/13/2024 10:30 AM EDT Laboratory Appointment Lab at [facility] Hematology Oncology [address] [place] [phone] 07/13/2024 11:30 AM EDT Office Visit Hematology [place] [phone] Salena Alvares APRN [facility] [place] [address] 07/13/2024 12:45 PM EDT Appointment Hematology and Oncology at [place] [phone] documented as of this encounter Procedures Procedure Name Priority Date/Time Associated Diagnosis Comments MAMMO DIAGNOSTIC CAD AND JOAN LEFT (CH) Routine 01/14/2024 1:46 PM EDT documented in this encounter Results * MAMMO DIAGNOSTIC CAD AND JOAN LEFT (CH) (01/14/2024 1:46 PM EDT) PT CLASS O RAD ADMITDTTM [id number] RAD PT RAD INFO [id number]^Shima buenrostroki^Mario RAD EXAM DESC MADDUILTOCH^MG Mammo Diagnostic Left [...] please contact the health home health care coordinator that requested your imaging first. ? [address] [place], [place] ??[address] Narrative 01/14/2024 2:14 PM EDT EXAMINATION: MG [...] who have questions please contactthe health home health care coordinator that [place] [address] Mario Lee MD PACS IMAGES documented in this encounter Visit Diagnoses Not on filedocumented in this encounter Care Teams Clinical Research Management Associate Relationship Specialty Start Date End [place] [address] PCP - General General Internal Medicine 08/04/22 documented as of this encounter
--- OUTSIDE RECORDS SUMMARY | 2024-04-29 01:54 | XMS_ITS | Encounter Summary ---
Author Organization [facility] [place] [address] Care Team Providers Care Traveling Inventory Associate Name Role Phone Haylie Steward MD Primary Care Provider [phone] Encounter Details Date Type Department Care Team [...] Scheduled View Only Radiation Oncology at [address] [address] 05/02/2024 3:45 PM EST Scheduled View Only Radiation Oncology at [address] [address] 05/03/2024 1:45 PM EST Scheduled View Only Radiation Oncology at [address] [address] 05/03/2024 2:15 PM EST Office Visit Radiation Oncology at [address] [phone] Ofe Fonseca MD [facility] [place] [address] 05/05/2024 8:15 AM EST Scheduled View Only Radiation Oncology at [address] [address] 05/06/2024 12:30 PM EST Scheduled View Only Radiation Oncology at [address] [address] 05/09/2024 12:30 PM EST Scheduled View Only Radiation Oncology at [address] [address] 05/10/2024 2:30 PM EST Scheduled View Only Radiation Oncology at [address] [address] 05/10/2024 3:15 PM EST Office Visit Radiation Oncology at [address] [phone] Ofe Fonseca MD [facility] [place] [address] 05/11/2024 2:30 PM EST Scheduled View Only Radiation Oncology at [address] [address] 05/11/2024 3:15 PM EST Scheduled View Only Radiation Oncology at [address] [address] Ofe Fonseca MD [facility] [place] [address] 05/12/2024 2:45 PM EST Scheduled View Only Radiation Oncology at [address] [phone] 06/03/2024 3:30 PM EST Appointment Ultrasound at [place] [phone] [facility] [place] [address] 06/23/2024 4:00 PM EST Appointment Mammography/DXA at [place] [phone] Miryam Feliciano MD [facility] [place] [address] 07/12/2024 8:00 AM EDT Laboratory Appointment Lab [address] [place], [place] [phone] 07/12/2024 9:30 AM EDT Office Visit Nephrology Hypertension at [place] [phone] Sharmin Jean-Baptiste, [facility] [place] [address] 07/13/2024 10:30 AM EDT Laboratory Appointment Lab at [facility] Hematology Oncology [address] [place] [phone] 07/13/2024 11:30 AM EDT Office Visit Hematology [place] [phone] [facility] [place] [address] 07/13/2024 12:45 PM EDT Appointment Hematology [place] [phone] documented as of this encounter Visit Diagnoses Not on filedocumented in this encounter Care Teams Traveling Inventory Associate Relationship Specialty Start Date End Date Haylie Steward MD [facility] [place] [address] PCP - General General Internal Medicine 08/04/22 documented as of this encounter
--- OUTSIDE RECORDS SUMMARY | 2024-04-29 01:54 | XMS_ITS | Encounter Summary ---
Author [place] [address] Care Team Providers Care Assistant Service Manager Name Role Phone Haylie Steward MD Primary Care Provider + [phone] Encounter Details Date Type Department Care Team (Latest Contact Info) Description 10/27/2023 11:30 AM EDT Office Visit [place] [phone] Sharmin Jean-Baptiste APRN [facility] [place] [address] CKD (chronic kidney disease) stage 2, GFR 60-89 ml/min; Hyperparathyroidism Social History Tobacco Use Types Packs/Day Years Used Date Smoking Tobacco: Never Smokeless Tobacco: Never Alcohol Use Standard Drinks/Week Comments Not Currently 0 (1 standard drink = 0.6 oz pur e alcohol) [facility] Inpatient Questions Answer Date Recorded [...] this encounter Progress Notes * Sharmin Jean-Baptiste, FINANCIAL SALES ASSISTANT - 10/27/2023 11:30 AM EDT Images from the original note were not included. Nephrology/Hypertension Clinic Follow-up Note [id number] ID: 48 y.o.year-old female being seen for [...] 60-89 ml/min N18.2 Hyperparathyroidism E21.3 Anemia D64.9 [place] intoxication, accidental or unintentional, initial encounter T56.891A [...] Patient states it affects her bipolar medication [place]. O: Vitals: 10/27/23 1148 BP: 125/63 Pulse: [...] Negative mcL Appearance UA Clear Clear Spec [place] UA 1.006 1.005 - 1.030 Color UA [...] questions or concerns. >the total time spent [id number] AND total time the provider spent counseling was 30 minutes. CC: Haylie Steward MD @[email or web address]@ documented in this encounter Plan of Treatment Upcoming Encounters Date Type Department Care Team (Latest Contact Info) Description 04/29/2024 3:00 PM EST Scheduled View Only Radiation Oncology at [address] [address] 05/02/2024 3:45 PM EST Scheduled View Only Radiation Oncology at [address] [address] 05/03/2024 1:45 PM EST Scheduled View Only Radiation Oncology at [address] [address] 05/03/2024 2:15 PM EST Office Visit Radiation Oncology at [address] [address] Ofe Fonseca MD [facility] [place] [address] 05/05/2024 8:15 AM EST Scheduled View Only Radiation Oncology at [address] [address] 05/06/2024 12:30 PM EST Scheduled View Only Radiation Oncology at [address] [address] 05/09/2024 12:30 PM EST Scheduled View Only Radiation Oncology at [address] [address] 05/10/2024 2:30 PM EST Scheduled View Only Radiation Oncology at [address] [address] 05/10/2024 3:15 PM EST Office Visit Radiation Oncology at [address] [address] Ofe Fonseca MD [facility] [place] [address] 05/11/2024 2:30 PM EST Scheduled View Only Radiation Oncology at [address] [address] 05/11/2024 3:15 PM EST Scheduled View Only Radiation Oncology at [address] [address] Ofe Fonseca MD [facility] [place] [address] 05/12/2024 2:45 PM EST Scheduled View Only Radiation Oncology at [address] [address] 06/03/2024 3:30 PM EST [place] [phone] Mira Hutchison APRN [facility] [place] [address] 06/23/2024 4:00 PM EST Appointment Mammography/[place] [phone] Miryam eFliciano MD [facility] [place] [address] 07/12/2024 8:00 AM EDT Laboratory Appointment Lab [address] [place] [address] 07/12/2024 9:30 AM EDT Office Visit [place] [address] Sharmin Jean-Baptiste [facility] [place] [address] 07/13/2024 10:30 AM EDT Laboratory Appointment Lab at [facility] Hematology Oncology [address] [place] [phone] 07/13/2024 11:30 AM EDT Office Visit [place] [address] Salena Alvares [facility] [place] [address] 07/13/2024 12:45 PM EDT Appointment [place] [phone] documented as of this encounter Results * Protein/Creatinine Ratio, urine (10/26/2023 9:38 AM EDT) Creatinine, Urine 13 mg/dL [facility] Protein, Urine <6 0 - 12 mg/dL [facility] Protein / Creatinine Ratio, Urine <0.5 ratio [facility] Urine 10/26/2023 9:38 AM EDT 10/26/2023 9:47 AM EDT Narrative Resulting Agency Comment Spec In Lab Sharmin Jean-Baptiste APRN URINE ORDERABLES [facility] [place] [address] * _Urinalysis with microscopic (10/26/2023 9:38 AM EDT) Glucose, Urine Dipstick Negative Negative mg/dL [facility] Protein, Urine Dipstick Negative Negative mg/dL [facility] Bilirubin, Urine Dipstick Negative Negative mg/dL [facility] Comment: Clinical correlation required for positive Urine Bilirubin results as false positive may occur with some drugs and drug related products. If a false positive is suspected a serum total bilirubin should be considered if clinically indicated. Urobilinogen, Urine Dipstick Normal Normal mg/dL [facility] pH, Urn (dipstick) 6.5 5.0 - 8.0 [facility] Blood, Urine Dipstick Negative Negative mg/dL [facility] Ketone, Urine Dipstick Negative Negative mg/dL [facility] Nitrite, Urine Dipstick Negative Negative [facility] Leukocytes, Urine Dipstick Negative Negative [facility] Appearance, Urine Dipstick Clear Clear [facility] Specific [place] Urine Automated 1.006 1.005 - 1.030 [facility] Color, Urine Dipstick Yellow Yellow [facility] RBC, Urine 0 0 - 4 /HPF [facility] WBC, Urine 0 0 - 5 /HPF [facility] Squamous Epithelial Cells Raw Data, Urine 1 <=4 /HPF [facility] Urine 10/26/2023 9:38 AM EDT 10/26/2023 9:47 AM EDT Narrative Resulting Agency Comment Spec In Lab Shramin Jean-Baptiste APRN URINE ORDERABLES [facility] [place] [address] * Ferritin (10/26/2023 8:27 AM EDT) Ferritin 45 6 - 175 ng/mL [facility] Comment: Please note that as of 04/08/2023, the reference intervals for Ferritin have been updated. Blood 10/26/2023 8:27 AM EDT 10/26/2023 8:33 AM EDT Narrative Resulting Agency Comment Spec In Lab Sharmin Jean-Baptiste FINANCIAL SALES ASSISTANT CHEMISTRY ORDERAB LES Performing Organization Address City/[facility]/ZIP Co de Phone Number [facility] [place] [address] * Iron and TIBC (10/26/2023 8:27 AM EDT) Iron 89 30 - 150 mcg/dL [facility] TIBC 323 250 - 450 mcg/dL [facility] Iron Saturation 28 20 - 50 % [facility] Blood 10/26/2023 8:27 AM EDT 10/26/2023 8:33 AM EDT Narrative Resulting Agency Comment Spec In Lab Sharmingilberto Jean-Baptiste FINANCIAL SALES ASSISTANT CHEMISTRY ORDERAB LES Performing Organization Address [facility] Co de Phone Number [facility] [place] [address] * Phosphorus (10/26/2023 8:27 AM EDT) Phosphorus 3.2 2.5 - 4.5 mg/dL [facility] Blood 10/26/2023 8:27 AM EDT 10/26/2023 8:33 AM EDT Narrative Resulting Agency Comment Spec In Lab Sharmin Jean-Baptiste FINANCIAL SALES ASSISTANT CHEMISTRY ORDERAB LES Performing Organization Address City/[facility]/ZIP Co de Phone Number [facility] [place] [address] * Vitamin D, 25-Hydroxy (10/26/2023 8:27 AM EDT) Vitamin D Total 25 OH 33 21 - 100 ng/mL [facility] Vit D Interp Sufficient [facility] Blood 10/26/2023 8:27 AM EDT 10/26/2023 8:33 AM EDT Narrative Resulting Agency Comment Spec In Lab Sharmin Jean-Baptiste FINANCIAL SALES ASSISTANT CHEMISTRY ORDERAB LES Performing Organization Address City/[facility]/ZIP Co de Phone Number [facility] [place] [address] * (ABNORMAL) PTH (10/26/2023 8:27 AM EDT) Parathyroid Hormone 103(H) 15 - 65 pg/mL [facility] Blood 10/26/2023 8:27 AM EDT 10/26/2023 8:33 AM EDT Narrative Resulting Agency Comment Spec In Lab Sharmin Jean-Baptiste FINANCIAL SALES ASSISTANT CHEMISTRY ORDERAB LES Performing Organization Address City/[facility] Co de Phone Number [facility] [place] [address] * (ABNORMAL) Basic Metabolic Panel (non-fasting) (10/26/2023 8:27 AM EDT) Glucose 72 65 - 199 mg/dL [facility] Comment:Diabetes: >=200 mg/d L plus symptoms Blood Urea Nitrogen 32(H) 8 - 18 mg/dL [facility] Creatinine 1.05 0.70 - 1.20 mg/dL [facility] Sodium 139 135 - 145 mmol/L [facility] Potassium 4.3 3.5 - 5.0 mmol/L [facility] Comment: Please note: ??Patients with WBC >100,000 may have falsely elevated Potassium levels. ??For accurate Potassium quantification in these patients send serum separator tube (gold top) for subsequent determinations. ??Contact the Clinical Chemistry Laboratory if there are any questions. Chloride 108(H) 98 - 107 mmol/L [facility] Carbon Dioxide 22 22 - 31 mmol/L [facility] Anion Gap 9 5 - 15 mmol/L [facility] Calcium 10.3 8.5 - 10.5 mg/dL [facility] Est Glomerular Filtration Rate 65 >=60 mL/min/1. 73 m?? [facility] Comment: This patient's estimated [...] Agency Comment Spec In Lab Sharmin Jean-Baptiste FINANCIAL SALES ASSISTANT CHEMISTRY ORDERAB LES Performing Organization Address City/[facility]/ZIP Co de Phone Number [facility] [place] [address] * Albumin Level (10/26/2023 8:27 AM EDT) Albumin 3.9 3.2 - 5.2 g/dL [facility] Blood 10/26/2023 8:27 AM EDT 10/26/2023 8:33 AM EDT Narrative Resulting Agency Comment Spec In Lab Sharmin Jean-Baptiste FINANCIAL SALES ASSISTANT CHEMISTRY ORDERAB LES [facility] [place] [address] documented in this encounter Visit Diagnoses Diagnosis CKD (chronic kidney disease) stage 2, GFR 60-89 ml/min Chronic kidney disease, Stage II (mild) Hyperparathyroidism Hyperparathyroidism, unspecified documented in this encounter Care Teams Assistant Service Manager Relationship Specialty Start Date [place] [address] PCP - General General Internal Medicine 08/04/22 documented as of this encounter
--- OUTSIDE RECORDS SUMMARY | 2024-04-29 01:55 | XMS_ITS | Encounter Summary ---
[facility] Organization [facility] [place] [address] Care Team Providers Care Second Hand Name Role Phone Haylie Steward MD Primary Care Provider + [phone] Encounter Details Date Type Department Care Team (Late st Contact Info) Description 05/30/2023 Telephone [place] [phone] Penny Rosales Social History Tobacco Use Types [...] - 05/30/2023 11:51 AM EST Nataliya Morfin [id number] Diagnosis/Indication: DARRIUS; diarrhea Please review patient chart [...] Endoscopy & Colonoscopy before? Yes: Date 01/22/14 [facility] If yes, did you have any [...] procedure? No You must have a responsible alliance party who will drive you to your procedure, stay on campus for the entire duration of your procedure, and drive you home from your procedure. Who will likely be your log truck driver for the procedure? Please Verify the height [...] Scheduled View Only Radiation Oncology at [address] [address] 05/02/2024 3:45 PM EST Scheduled View Only Radiation Oncology at [address] [address] 05/03/2024 1:45 PM EST Scheduled View Only Radiation Oncology at [address] [address] 05/03/2024 2:15 PM EST Office Visit Radiation Oncology at [address] [address] Ofe Fonseca MD [facility] [place] [address] 05/05/2024 8:15 AM EST Scheduled View Only Radiation Oncology at [address] [address] 05/06/2024 12:30 PM EST Scheduled View Only Radiation Oncology at [address] [address] 05/09/2024 12:30 PM EST Scheduled View Only Radiation Oncology at [address] [address] 05/10/2024 2:30 PM EST Scheduled View Only Radiation Oncology at [address] [address] 05/10/2024 3:15 PM EST Office Visit Radiation Oncology at [address] [address] Ofe Fonseca MD [facility] [place] [address] 05/11/2024 2:30 PM EST Scheduled View Only Radiation Oncology at [address] [address] 05/11/2024 3:15 PM EST Scheduled View Only Radiation Oncology at [address] [address] Ofe Fonseca MD [facility] [place] [address] 05/12/2024 2:45 PM EST Scheduled View Only Radiation Oncology at [address] [phone] 06/03/2024 3:30 PM EST Appointment Ultrasound at [place] [phone] Mira Hutchison APRN [facility] [place] [address] 06/23/2024 4:00 PM EST Appointment Mammography/[place] [address] Miryam Feliciano MD [facility] [place] [address] 07/12/2024 8:00 AM EDT Laboratory Appointment Lab [address] [phone] 07/12/2024 9:30 AM EDT Office Visit Nephrology [place] [address] Sharmin Jean-Baptiste, [facility] [place] [address] 07/13/2024 10:30 AM EDT Laboratory Appointment Lab at [facility] Hematology Oncology [address] [place] [phone] 07/13/2024 11:30 AM EDT Office Visit Hematology [place] [address] Salena Alvares, [facility] [place] [address] 07/13/2024 12:45 PM EDT Appointment Hematology [place] [address] documented as of this encounter Visit Diagnoses Not on filedocumented in this encounter Care Teams Second Hand Relationship Specialty Start Date [place] [address] PCP - General General Internal Medicine 08/04/22 documented as of this encounter
--- OUTSIDE RECORDS SUMMARY | 2024-04-29 01:55 | XMS_ITS | Encounter Summary ---
[place] [address] Care Team Providers Care Tubular Products Fabricator Name Role Phone Haylie Steward MD Primary Care Provider [phone] Encounter Details Date Type Department Care Team (Late st Contact Info) Description 06/17/2023 1:25 PM EST Laboratory Appointment Lab [address] [place] [phone] Social History Tobacco Use Types Packs/Day Years [...] Scheduled View Only Radiation Oncology at [address] [address] 05/02/2024 3:45 PM EST Scheduled View Only Radiation Oncology at [address] [address] 05/03/2024 1:45 PM EST Scheduled View Only Radiation Oncology at [address] [address] 05/03/2024 2:15 PM EST Office Visit Radiation Oncology at [address] [address] Ofe Fonseca MD [facility] [place] [address] 05/05/2024 8:15 AM EST Scheduled View Only Radiation Oncology at [address] [address] 05/06/2024 12:30 PM EST Scheduled View Only Radiation Oncology at [address] [address] 05/09/2024 12:30 PM EST Scheduled View Only Radiation Oncology at [address] [address] 05/10/2024 2:30 PM EST Scheduled View Only Radiation Oncology at [address] [address] 05/10/2024 3:15 PM EST Office Visit Radiation Oncology at [address] [address] Ofe Fonseca MD [facility] [place] [address] 05/11/2024 2:30 PM EST Scheduled View Only Radiation Oncology at [address] [address] 05/11/2024 3:15 PM EST Scheduled View Only Radiation Oncology at [address] [address] Ofe Fonseca MD [facility] [place] [address] 05/12/2024 2:45 PM EST Scheduled View Only Radiation Oncology at [address] [phone] 06/03/2024 3:30 PM EST [place] [phone] Mira Hutchison [facility] [address] 06/23/2024 4:00 PM EST Appointment Mammography/[place] [phone] Miryam Feliciano MD [facility] [place] [address] 07/12/2024 8:00 AM EDT Laboratory Appointment Lab [address] [place] [phone] 07/12/2024 9:30 AM EDT Office Visit [place] [phone] Sharmin Jean-Baptiste [facility] [place] [address] 07/13/2024 10:30 AM EDT Laboratory Appointment Lab at [facility] Hematology Oncology [address] [place] [phone] 07/13/2024 11:30 AM EDT Office Visit [place]ology [place] [phone] Salena Alvares [facility] [place] [address] 07/13/2024 12:45 PM EDT Appointment Hematology [place] [address] documented as of this encounter Visit Diagnoses Not on filedocumented in this encounter Care Teams Tubular Products Fabricator Relationship Specialty Start Date [place] [address] PCP - General General Internal Medicine 08/04/22 documented as of this encounter
--- OUTSIDE RECORDS SUMMARY | 2024-04-29 01:55 | XMS_ITS | Encounter Summary ---
Author Organization [facility] [place] [address] Care Team Providers Care Paratransit Operator Name Role Phone Haylie Steward MD Primary Care Provider + [phone] Encounter Details Date Type Department Care Team (Late st Contact Info) Description 06/18/2023 Telephone [place] [phone] Geoffrey Crews RN Social History Tobacco Use Types Packs/Day Years Used Date Smoking Tobacco: Never Smokeless Tobacco: Never Alcohol Use Standard Drinks/Week Comments Not Currently 0 (1 standard drink = 0.6 oz pur e alcohol) [facility] [...] Cook MD Wilson, Tammy-Lynn A, RN; P [facility] Gastro Motility Nurse Caller: Unspecified (Yesterday, 3:00 [...] Scheduled View Only Radiation Oncology at [address] [address] 05/02/2024 3:45 PM EST Scheduled View Only Radiation Oncology at [address] [address] 05/03/2024 1:45 PM EST Scheduled View Only Radiation Oncology at [address] [address] 05/03/2024 2:15 PM EST Office Visit Radiation Oncology at [address] [address] Ofe Fonseca MD [facility] [place] [address] 05/05/2024 8:15 AM EST Scheduled View Only Radiation Oncology at [address] [address] 05/06/2024 12:30 PM EST Scheduled View Only Radiation Oncology at [address] [address] 05/09/2024 12:30 PM EST Scheduled View Only Radiation Oncology at [address] [address] 05/10/2024 2:30 PM EST Scheduled View Only Radiation Oncology at [address] [address] 05/10/2024 3:15 PM EST Office Visit Radiation Oncology at [address] [address] Ofe Fonseca MD [facility] [place] [address] 05/11/2024 2:30 PM EST Scheduled View Only Radiation Oncology at [address] [address] 05/11/2024 3:15 PM EST Scheduled View Only Radiation Oncology at [address] [address] Ofe Fonseca MD [facility] [place] [address] 05/12/2024 2:45 PM EST Scheduled View Only Radiation Oncology at [address] [address] 06/03/2024 3:30 PM EST Appointment [place] [phone] Mira Hutchison APRN [facility] [place] [address] 06/23/2024 4:00 PM EST Appointment Mammography/[place] [phone] Miryam Feliciano MD [facility] [place] [address] 07/12/2024 8:00 AM EDT Laboratory Appointment Lab [address] [phone] 07/12/2024 9:30 AM EDT Office Visit [place] [phone] Sharmin Jean-Baptiste, [facility] [place] [address] 07/13/2024 10:30 AM EDT Laboratory Appointment Lab at [facility] Hematology Oncology [address] [place], [place] [phone] 07/13/2024 11:30 AM EDT Office Visit Hematology and Oncology at [place] [phone] Salena Alvares [facility] [place] [address] 07/13/2024 12:45 PM EDT Appointment Hematology and Oncology at [place] [phone] documented as of this encounter Visit Diagnoses Not on filedocumented in this encounter Additional Health Concerns Infection Onset Date Last Indicated Resolved Time Rule Out C. difficile 06/18/2023 06/18/20232023 2:04 PM EST documented as of this encounter Care Teams Paratransit Operator Relationship Specialty Start Date End [place] [address] PCP - General General Internal Medicine 08/04/22 documented as of this encounter
--- OUTSIDE RECORDS SUMMARY | 2024-04-29 01:55 | XMS_ITS | Encounter Summary ---
[place] [address] Care Team Providers Care Technical Communicator Name Role Phone Haylie Steward MD Primary Care Provider [phone] Encounter Details Date Type Department Care Team (Latest Contact Info) Description 06/26/2023 7:10 AM EST Laboratory Appointment Lab [address]L [place] [phone] Bipolar 1 disorder Social History Tobacco Use [...] Scheduled View Only Radiation Oncology at [address] [phone] 05/02/2024 3:45 PM EST Scheduled View Only Radiation Oncology at [address] [address] 05/03/2024 1:45 PM EST Scheduled View Only Radiation Oncology at [address] [address] 05/03/2024 2:15 PM EST Office Visit Radiation Oncology at [address] [address] Ofe Fonseca MD [facility] [place] [address] 05/05/2024 8:15 AM EST Scheduled View Only Radiation Oncology at [address] [address] 05/06/2024 12:30 PM EST Scheduled View Only Radiation Oncology at [address] [address] 05/09/2024 12:30 PM EST Scheduled View Only Radiation Oncology at [address] [address] 05/10/2024 2:30 PM EST Scheduled View Only Radiation Oncology at [address] [address] 05/10/2024 3:15 PM EST Office Visit Radiation Oncology at [address] [address] Ofe Fonseca MD [facility] RADIATION [place] [address] 05/11/2024 2:30 PM EST Scheduled View Only Radiation Oncology at [address] [address] 05/11/2024 3:15 PM EST Scheduled View Only Radiation Oncology at [address] [address] Ofe Fonseca MD [facility] [place] [address] 05/12/2024 2:45 PM EST Scheduled View Only Radiation Oncology at [address] [phone] 06/03/2024 3:30 PM EST Appointment Ultrasound at [place] [phone] Mira Hutchison [facility] [place] [address] 06/23/2024 4:00 PM EST Appointment Mammography/DXA at [place] [phone] Miryam Feliciano MD [facility] [place] [address] 07/12/2024 8:00 AM EDT Laboratory Appointment Lab [address] [place], [place] [phone] 07/12/2024 9:30 AM EDT Office Visit Nephrology Hypertension at [place] [phone] Sharmin Jean-Baptiste [facility] [place] [address] 07/13/2024 10:30 AM EDT Laboratory Appointment Lab at [facility] Hematology Oncology [address] [place] [phone] 07/13/2024 11:30 AM EDT Office Visit Hematology [place] [phone] Salena Alvares [facility] [place] [address] 07/13/2024 12:45 PM EDT Appointment Hematology [place] [address] documented as of this encounter Procedures Procedure Name Priority Date/Time Associated Diagnosis Comments VALPROIC ACID LEVEL, TOTAL Routine 06/26/2023 7:19 AM EST Bipolar 1 disorder documented in this encounter Results * Valproic Acid Level, Total (06/26/2023 7:19 AM EST) Valproic Acid 37 mg/L [facility] Comment: Therapeutic Range: Anticonvulsant Therapy: ??50-100 mg/L Manic Episodes Associated with Bipolar Disorder: ??50-125 mg/L Blood 06/26/2023 7:19 AM EST 06/26/2023 7:26 AM EST Narrative Resulting Agency Comment Spec In Lab Michelet Monge MD CHEMISTRY ORDERABLES Performing Organization Address City/State/[facility] Co de Phone Number [facility] [place] [address] documented in this encounter Visit Diagnoses Diagnosis Bipolar 1 disorder Bipolar I disorder, most recent episode (or current) unspecified documented in this encounter Care Teams Technical Communicator Relationship Specialty Start Date End Date [place] [address] PCP - General General Internal Medicine 08/04/22 documented as of this encounter
--- OUTSIDE RECORDS SUMMARY | 2024-04-29 01:55 | XMS_ITS | Encounter Summary ---
[place] [address] Care Team Providers Care Donor Specialist Name Role Phone Haylie Steward MD Primary Care Provider + [phone] Reason for Referral * Consultation (Routine) - Closed Specialty Diagnoses / Procedures Referred By Contac t Referred To Contact Obstetrics and Gynecology Diagnoses Fibroid RECREATION COORDINATOR Rolly Cook MD [facility] [place] [address] [facility] [employer] [address] [place] [address] Referral ID Status Reason Start Date Expiration Date V isits Requested Visits Authorized [id number] Closed Consult, Test & Treat 06/29/2023 06/28/2024 1 1 Encounter Details Date Type Department Care Team (Late st Contact Info) Description 06/29/2023 Telephone [place] [phone] Rolly Cook MD [facility] [place] [address] Social History Tobacco Use Types Packs/Day Years Used Date Smoking Tobacco: Never Smokeless Tobacco: Never Alcohol Use Standard Drinks/Week Comments Not Currently 0 (1 standard drink = 0.6 oz pur e alcohol) [facility] Inpatient Questions Answer Date Recorded [...] MD, FRCPC Section of Gastroenterology and Hepatology [facility] [place] [address] V: [phone] F: [phone] documented in this encounter Plan of Treatment Upcoming Encounters Date Type Department Care Team (Latest Contact Info) Description 04/29/2024 3:00 PM EST Scheduled View Only Radiation Oncology at [address] [address] 05/02/2024 3:45 PM EST Scheduled View Only Radiation Oncology at [address] [address] 05/03/2024 1:45 PM EST Scheduled View Only Radiation Oncology at [address] [address] 05/03/2024 2:15 PM EST Office Visit Radiation Oncology at [address] [address] Ofe Fonseca MD [facility] [place] [address] 05/05/2024 8:15 AM EST Scheduled View Only Radiation Oncology at [address] [address] 05/06/2024 12:30 PM EST Scheduled View Only Radiation Oncology at [address] [address] 05/09/2024 12:30 PM EST Scheduled View Only Radiation Oncology at [address] [address] 05/10/2024 2:30 PM EST Scheduled View Only Radiation Oncology at [address] [address] 05/10/2024 3:15 PM EST Office Visit Radiation Oncology at [address] [address] Ofe Fonseca MD [facility] [place] [address] 05/11/2024 2:30 PM EST Scheduled View Only Radiation Oncology at [address] [address] 05/11/2024 3:15 PM EST Scheduled View Only Radiation Oncology at [address] [address] Ofe Fonseca MD [facility] [place] [address] 05/12/2024 2:45 PM EST Scheduled View Only Radiation Oncology at [address] [address] 06/03/2024 3:30 PM EST [place] [address] Mira Hutchison APRN [facility] [place] [address] 06/23/2024 4:00 PM EST Appointment Mammography/DXA at [place] [phone] Miryam Feliciano MD [facility] DR MEDICAL [place] [address] 07/12/2024 8:00 AM EDT Laboratory Appointment Lab [place] [address] 07/12/2024 9:30 AM EDT Office Visit Nephrology Hypertension at [place] [address] Sharmin Jean-Baptiste, [facility] [place] [address] 07/13/2024 10:30 AM EDT Laboratory Appointment Lab at [facility] Hematology Oncology [address] [place], [place] [phone] 07/13/2024 11:30 AM EDT Office Visit Hematology and Oncology at [place] [phone] Salena Alvares, [facility] DR MEDICAL [place] [address] 07/13/2024 12:45 PM EDT Appointment Hematology and Oncology at [place] [phone] Scheduled Referrals Name Type Priority Associated Diagnoses Order Schedule Referral to Gynecologic Oncology Outpatient Referral Routine Fibroid Ordered: 06/29/2023 documented as of this encounter Visit Diagnoses Diagnosis Fibroid Leiomyoma of uterus, unspecified documented in this encounter Care Teams Donor Specialist Relationship Specialty Start Date [place] [address] PCP - General General Internal Medicine 08/04/22 documented as of this encounter
--- OUTSIDE RECORDS SUMMARY | 2024-04-29 01:55 | XMS_ITS | Encounter Summary ---
Author Organization [facility] [place] [address] Care Team Providers Care Glass Glazier Name Role Phone Haylie Steward MD Primary Care Provider [phone] Encounter Details Date Type Department Care Team [...] Scheduled View Only Radiation Oncology at [address] [address] 05/02/2024 3:45 PM EST Scheduled View Only Radiation Oncology at [address] [address] 05/03/2024 1:45 PM EST Scheduled View Only Radiation Oncology at [address] [address] 05/03/2024 2:15 PM EST Office Visit Radiation Oncology at [address] [phone] Ofe Fonseca MD [facility] [place] [address] 05/05/2024 8:15 AM EST Scheduled View Only Radiation Oncology at [address] [address] 05/06/2024 12:30 PM EST Scheduled View Only Radiation Oncology at [address] [address] 05/09/2024 12:30 PM EST Scheduled View Only Radiation Oncology at [address] [address] 05/10/2024 2:30 PM EST Scheduled View Only Radiation Oncology at [address] [address] 05/10/2024 3:15 PM EST Office Visit Radiation Oncology at [address] [address] Ofe Fonseca MD [facility] [address] 05/11/2024 2:30 PM EST Scheduled View Only Radiation Oncology at [address] [address] 05/11/2024 3:15 PM EST Scheduled View Only Radiation Oncology at [address] [address] Ofe Fonseca MD [facility] [place] [address] 05/12/2024 2:45 PM EST Scheduled View Only Radiation Oncology at [address] [address] 06/03/2024 3:30 PM EST Appointment Ultrasound at [place] [phone] Mira Hutchison [facility] [place] [address] 06/23/2024 4:00 PM EST Appointment Mammography/DXA at [place] [phone] Miryam Feliciano MD [facility] [place] [address] 07/12/2024 8:00 AM EDT Laboratory Appointment Lab [address] [place], [place] [phone] 07/12/2024 9:30 AM EDT Office Visit Nephrology Hypertension at [place] [phone] Sharmin Jean-Baptiste, [facility] [place] [address] 07/13/2024 10:30 AM EDT Laboratory Appointment Lab at [facility] Hematology Oncology [address] [place] [phone] 07/13/2024 11:30 AM EDT Office Visit H[place]ology [place] [phone] Salena Alvares [facility] [place] [address] 07/13/2024 12:45 PM EDT Appointment Hematology [place] [phone] documented as of this encounter Visit Diagnoses Not on filedocumented in this encounter Care Teams Glass Glazier Relationship Specialty Start Date End Date Haylie Steward MD [facility] [address] PCP - General General Internal Medicine 08/04/22 documented as of this encounter
--- OUTSIDE RECORDS SUMMARY | 2024-04-29 01:55 | XMS_ITS | Encounter Summary ---
Author Organization [facility] [place] [address] Care Team Providers Care Supervisor Ordnance Truck Installation Name Role Phone Haylie Steward MD Primary Care Provider [phone] Encounter Details Date Type Department Care Team [...] Scheduled View Only Radiation Oncology at [address] [address] 05/02/2024 3:45 PM EST Scheduled View Only Radiation Oncology at [address] [address] 05/03/2024 1:45 PM EST Scheduled View Only Radiation Oncology at [address] [address] 05/03/2024 2:15 PM EST Office Visit Radiation Oncology at [address] [address] Ofe Fonseca MD [facility] [place] [address] 05/05/2024 8:15 AM EST Scheduled View Only Radiation Oncology at [address] [address] 05/06/2024 12:30 PM EST Scheduled View Only Radiation Oncology at [address] [address] 05/09/2024 12:30 PM EST Scheduled View Only Radiation Oncology at [address] [address] 05/10/2024 2:30 PM EST Scheduled View Only Radiation Oncology at [address] [address] 05/10/2024 3:15 PM EST Office Visit Radiation Oncology at [address] [address] Ofe Fonseca MD [facility] RADIATION [place] [address] 05/11/2024 2:30 PM EST Scheduled View Only Radiation Oncology at [address] [address] 05/11/2024 3:15 PM EST Scheduled View Only Radiation Oncology at [address] [address] Ofe Fonseca MD [facility] [place] [address] 05/12/2024 2:45 PM EST Scheduled View Only Radiation Oncology at [address] [address] 06/03/2024 3:30 PM EST Appointment Ultrasound at [place] [phone] Mira Hutchison [facility] [place] [address] 06/23/2024 4:00 PM EST Appointment Mammography/DXA at [place] [phone] Miryam Feliciano MD [facility] [place] [address] 07/12/2024 8:00 AM EDT Laboratory Appointment Lab [address] [place], [place] [phone] 07/12/2024 9:30 AM EDT Office Visit Nephrology Hypertension at [place] [phone] Sharmin Jean-Baptiste, [facility] [place] [address] 07/13/2024 10:30 AM EDT Laboratory Appointment Lab at [facility] Hematology Oncology [address] [place] [phone] 07/13/2024 11:30 AM EDT Office Visit Hematology [place] [phone] Salena Alvares [facility] [place] [address] 07/13/2024 12:45 PM EDT Appointment Hematology [place] [phone] documented as of this encounter Visit Diagnoses Not on filedocumented in this encounter Care Teams Supervisor Ordnance Truck Installation Relationship Specialty Start Date End Date Haylie Steward MD [place] [address] PCP - General General Internal Medicine 08/04/22 documented as of this encounter
--- OUTSIDE RECORDS SUMMARY | 2024-04-29 01:55 | XMS_ITS | Encounter Summary ---
Author Organization [facility] [place] [address] Care Team Providers Care Senior Marketing Analyst Name Role Phone Haylie Steward MD Primary Care Provider [phone] Encounter Details Date Type Department Care Team [...] Scheduled View Only Radiation Oncology at [address] [address] 05/02/2024 3:45 PM EST Scheduled View Only Radiation Oncology at [address] [address] 05/03/2024 1:45 PM EST Scheduled View Only Radiation Oncology at [address] [address] 05/03/2024 2:15 PM EST Office Visit Radiation Oncology at [address] [address] Ofe Fonseca MD [facility] [place] [address] 05/05/2024 8:15 AM EST Scheduled View Only Radiation Oncology at [address] [address] 05/06/2024 12:30 PM EST Scheduled View Only Radiation Oncology at [address] [address] 05/09/2024 12:30 PM EST Scheduled View Only Radiation Oncology at [address] [address] 05/10/2024 2:30 PM EST Scheduled View Only Radiation Oncology at [address] [address] 05/10/2024 3:15 PM EST Office Visit Radiation Oncology at [address] [address] Ofe Fonseca MD [facility] [place] [address] 05/11/2024 2:30 PM EST Scheduled View Only Radiation Oncology at [address] [address] 05/11/2024 3:15 PM EST Scheduled View Only Radiation Oncology at [address] [address] Ofe Fonseca MD [facility] [place] [address] 05/12/2024 2:45 PM EST Scheduled View Only Radiation Oncology at [address] [address] 06/03/2024 3:30 PM EST Appointment Ultrasound at [place] [phone] Mira Hutchison [facility] [place] [address] 06/23/2024 4:00 PM EST Appointment Mammography/DXA at [place] [phone] Miryam Feliciano MD [facility] [place] [address] 07/12/2024 8:00 AM EDT Laboratory Appointment Lab [address] [place], [place] [phone] 07/12/2024 9:30 AM EDT Office Visit Nephrology Hypertension at [place] [phone] Sharmin Jean-Baptiste, [facility] [place] [address] 07/13/2024 10:30 AM EDT Laboratory Appointment Lab at [facility] [place]ology Oncology [address] [place] [phone] 07/13/2024 11:30 AM EDT Office Visit Hematology [place] [phone] Salena Alvares [facility] [place] [address] 07/13/2024 12:45 PM EDT Appointment Hematology [place] [phone] documented as of this encounter Visit Diagnoses Not on filedocumented in this encounter Care Teams Senior Marketing Analyst Relationship Specialty Start Date End Date Haylie Steward MD [facility] [address] PCP - General General Internal Medicine 08/04/22 documented as of this encounter
--- OUTSIDE RECORDS SUMMARY | 2024-04-29 01:55 | XMS_ITS | Encounter Summary ---
Author Organization [facility] [address] Care Team Providers Care Strategic Solutions Consultant Name Role Phone Haylie Steward MD Primary Care Provider [phone] Encounter Details Date Type Department Care Team [...] EST Scheduled View Only Radiation Oncology at [address] [address] 05/02/2024 3:45 PM EST Scheduled View Only Radiation Oncology at [address] [address] 05/03/2024 1:45 PM EST Scheduled View Only Radiation Oncology at [address] [address] 05/03/2024 2:15 PM EST Office Visit Radiation Oncology at [address] [address] Ofe Fonseca MD [facility] [place] [address] 05/05/2024 8:15 AM EST Scheduled View Only Radiation Oncology at [address] [address] 05/06/2024 12:30 PM EST Scheduled View Only Radiation Oncology at [address] [address] 05/09/2024 12:30 PM EST Scheduled View Only Radiation Oncology at [address] [address] 05/10/2024 2:30 PM EST Scheduled View Only Radiation Oncology at [address] [address] 05/10/2024 3:15 PM EST Office Visit Radiation Oncology at [address] [address] Ofe Fonseca MD [facility] [place] [address] 05/11/2024 2:30 PM EST Scheduled View Only Radiation Oncology at [address] [address] 05/11/2024 3:15 PM EST Scheduled View Only Radiation Oncology at [address] [address] Ofe Fonseca MD [facility] [place] [address] 05/12/2024 2:45 PM EST Scheduled View Only Radiation Oncology at [address] [address] 06/03/2024 3:30 PM EST Appointment Ultrasound at [place] [phone] Mira Hutchison [facility] [place] [address] 06/23/2024 4:00 PM EST Appointment Mammography/DXA at [place] [phone] Miryam Feliciano MD [facility] [place] [address] 07/12/2024 8:00 AM EDT Laboratory Appointment Lab [address] [place], [place] [phone] 07/12/2024 9:30 AM EDT Office Visit Nephrology Hypertension at [place] [phone] Sharmin Jean-Baptiste, [facility] [place] [address] 07/13/2024 10:30 AM EDT Laboratory Appointment Lab at [facility] [place] [place] Hematology Oncology [address] [place] [phone] 07/13/2024 11:30 AM EDT Office Visit Hematology [place] [phone] Salena Alvares [facility] [place] [address] 07/13/2024 12:45 PM EDT Appointment Hematology [place] [phone] documented as of this encounter Visit Diagnoses Not on filedocumented in this encounter Care Teams Strategic Solutions Consultant Relationship Specialty Start Date End Date Haylie Steward MD [facility] [place] [address] PCP - General General Internal Medicine 08/04/22 documented as of this encounter
--- OUTSIDE RECORDS SUMMARY | 2024-04-29 01:55 | XMS_ITS | Encounter Summary ---
Author Organization [facility] [place] [address] Care Team Providers Care Inspector Process Name Role Phone Haylie Steward MD Primary Care Provider [phone] Encounter Details Date Type Department Care Team (Late st Contact Info) Description 06/21/2023 9:08 AM EST - 06/21/2023 11:59 PM EST Hospital Encounter [facility] [address] [place] [phone] Angela Heredia MD [facility] [place] [address] Discharge Disposition: Home Social History Tobacco Use [...] Scheduled View Only Radiation Oncology at [address] [phone] 05/02/2024 3:45 PM EST Scheduled View Only Radiation Oncology at [address] [phone] 05/03/2024 1:45 PM EST Scheduled View Only Radiation Oncology at [address] [phone] 05/03/2024 2:15 PM EST Office Visit Radiation Oncology at [address] [phone] Ofe Fonseca MD [facility] [place] [address] 05/05/2024 8:15 AM EST Scheduled View Only Radiation Oncology at [address] [address] 05/06/2024 12:30 PM EST Scheduled View Only Radiation Oncology at [address] [address] 05/09/2024 12:30 PM EST Scheduled View Only Radiation Oncology at [address] [address] 05/10/2024 2:30 PM EST Scheduled View Only Radiation Oncology at [address] [address] 05/10/2024 3:15 PM EST Office Visit Radiation Oncology at [address] [phone] Ofe Fonseca MD [facility] [place] [address] 05/11/2024 2:30 PM EST Scheduled View Only Radiation Oncology at [address] [phone] 05/11/2024 3:15 PM EST Scheduled View Only Radiation Oncology at [address] [phone] Ofe Fonseca MD [facility] [place] [address] 05/12/2024 2:45 PM EST Scheduled View Only Radiation Oncology at [address] [address] 06/03/2024 3:30 PM EST Appointment [place] [address] Mira Hutchison APRN [facility] [place] [address] 06/23/2024 4:00 PM EST Appointment Mammography/[place] [phone] Miryam Feliciano MD [facility] [place] [address] 07/12/2024 8:00 AM EDT Laboratory Appointment Lab [address] [place] [phone] 07/12/2024 9:30 AM EDT Office Visit Nephrology [place] [phone] Sharmin Jean-Baptiste, [facility] [place] [address] 07/13/2024 10:30 AM EDT Laboratory Appointment Lab [place] [facility] [place] On[place] [address] [place] [phone] 07/13/2024 11:30 AM EDT Office Visit Hematology [place] [phone] Salena Alvares, [facility] [place] [address] 07/13/2024 12:45 PM EDT Appointment Hematology [place] [phone] documented as of this encounter Procedures Procedure Name Priority Date/Time Associated Diagnosis Comments U24 HRS AND VOLUME Routine 06/21/2023 7: 14 AM EST CALCIUM, URINE, 24 HOUR Routine 06/21/2023 7:14 AM EST documented in this encounter Results * U24 Hrs and Volume (06/21/2023 7:14 AM EST) [facility] Hours Collected 24 hour(s) [facility] Total Volume 5,678 mL [facility] Urine 06/21/2023 7:14 AM EST 06/21/2023 11:51 AM EST Narrative Resulting Agency Comment Spec In Lab Angela Heredia MD CHEMISTRY ORDERABLES Performing Organization Address [facility] Co de Phone Number [place] [address] * Calcium, urine, 24 hour (06/21/2023 7:14 AM EST) Ca Concentration, U24 1.4 mg/dL [facility] Calcium, 24 Hour Urine 79.5 50.0 - 300.0 mg/24hr [facility] Comment:Reference Range: 50. 0-300.0 mg/24 hour based on diet. Urine 06/21/2023 7:14 AM EST 06/21/2023 11:51 AM EST Narrative Resulting Agency Comment Spec In Lab Angela Heredia MD URINE ORDERABLES Performing Organization Address City/[facility] Co de Phone Number [place] [address] documented in this encounter Visit Diagnoses Not on filedocumented in this encounter Care Teams Inspector Process Relationship Specialty Start Date End Date Haylie Steward MD [facility] [place] [address] PCP - General General Internal Medicine 08/04/22 documented as of this encounter
--- OUTSIDE RECORDS SUMMARY | 2024-04-29 01:55 | XMS_ITS | Encounter Summary ---
Author Organization [facility] [place] [address] Care Team Providers Care Installment Loan Collector Name Role Phone Haylie Steward MD Primary Care Provider + [phone] Encounter Details Date Type Department Care Team (Late st Contact Info) Description 07/07/2023 1:00 PM EST Office [place] [phone] Angela Heredia MD [facility] [place] [address] Stage 3b chronic kidney disease; Hypothyroidism, acquired; [...] from the original note were not included. [facility] Endocrinology Clinic Follow up visit: Reason for visit: hyperparathyroidism History: Edyta Morfin is a 48 y.o. woman with a history of bipolar disorder diagnosed in 2003, CKD3, OCD, here for follow up of hyperparathyroidism. Last visit with me in 02/2023. She has a history of bipolardisorder and was previously on [place] starting from 2003 until September 2022, when [...] Data is abnormally low Dawn Sanchez MD [phone] 205410/01/2022 Narrative & Impression Renal (Signed Final 10/01/2022 07:53 pm) PATIENT INFO: ID #: [id number] : [birth year] (47 yrs)(F) Name: EDYTA MORFIN Visit Date: 10/01/2022 02:08 pm PERFORMED BY: Attending: Dawn Sanchez MD Resident: Jayne NÚÑEZ [facility] Performed By: Monster Bhatia RDMS Referred By: SHAKA EPPS Location: [place] SERVICE(S) PROVIDED: URETRO - Retroperitoneal Complete - [id number] INDICATIONS: long-standing lithium use and CKD, requested [...] Initially thought that hyperparathyroidism was caused by prison use of lithium, as lithium is known to be associated with hyperparathyroidism. [place] use can be associated with4 gland hyperplasia [...] orders and on documentation. Angela Heredia MD [employer] F[employer] Assistant Department Headleadite man Endocrinology Section [facility] documented in this encounter Plan of Treatment Upcoming Encounters Date Type Department Care Team (Latest Contact Info) Description 04/29/2024 3:00 PM EST Scheduled View Only Radiation Oncology at [address] [phone] 05/02/2024 3:45 PM EST Scheduled View Only Radiation Oncology at [address] [phone] 05/03/2024 1:45 PM EST Scheduled View Only Radiation Oncology at [address] [phone] 05/03/2024 2:15 PM EST Office Visit Radiation Oncology at [address] [phone] Ofe Fonseca MD [facility] [place] [address] 05/05/2024 8:15 AM EST Scheduled View Only Radiation Oncology at [address] [phone] 05/06/2024 12:30 PM EST Scheduled View Only Radiation Oncology at [address] [phone] 05/09/2024 12:30 PM EST Scheduled View Only Radiation Oncology at [address] [phone] 05/10/2024 2:30 PM EST Scheduled View Only Radiation Oncology at [address] [phone] 05/10/2024 3:15 PM EST Office Visit Radiation Oncology at [address] [phone] Ofe Fonseca MD [facility] [place] [address] 05/11/2024 2:30 PM EST Scheduled View Only Radiation Oncology at [address] [phone] 05/11/2024 3:15 PM EST Scheduled View Only Radiation Oncology at [address] [phone] Ofe Fonseca MD [facility] RADIATION [place] [address] 05/12/2024 2:45 PM EST Scheduled View Only Radiation Oncology at [address] [phone] 06/03/2024 3:30 PM EST Appointment Ultrasound at [place] [phone] Mira Hutchison [facility] [place] [address] 06/23/2024 4:00 PM EST Appointment Mammography/DXA at [place] [phone] Miryam Feliciano MD [facility] [place] [address] 07/12/2024 8:00 AM EDT Laboratory Appointment Lab [address] [place], [place] [phone] 07/12/2024 9:30 AM EDT Office Visit Nephrology Hypertension at [place] [phone] Sharmin Jean-Baptiste, [facility] [place] [address] 07/13/2024 10:30 AM EDT Laboratory Appointment Lab at [facility] Hematology Oncology [address] [place], [place] [phone] 07/13/2024 11:30 AM EDT Office Visit Hematology [place] [phone] Salena Alvares [facility] [place] [address] 07/13/2024 12:45 PM EDT Appointment Hematology and Oncology at [place] [phone] documented as of this encounter Results * Calcium, Ionized, Serum (07/09/2023 8:12 AM EST) Ionized Calcium 1.32 1.15 - 1.33 mmol/L [facility] Comment: Note: Total bilirubin higher than 20 mg/dL may lead to falsely low ionized calcium. This test has not been cleared by the [place] FDA. Performance characteristics of this test were determined by [facility] in accordance with CLIA requirements. This laboratory is qualified under CLIA to perform high-complexity testing. Blood 07/09/2023 8:12 AM EST 07/09/2023 8:16 AM EST Narrative Resulting Agency Comment Spec In Lab Angela Heredia MD CHEMISTRY ORDERABLES Performing Organization Address City/[facility]/ZIP Co de Phone Number [facility] [place] [address] * TSH [place] (07/09/2023 8:12 AM EST) Thyroid Stimulating Hormone 1.91 0.27 - 4.20 mcIU/mL [facility] Comment: Reference Interval (mcIU/mL): Females: ??First Trimester: 0.23-3.88 ??Second Trimester: 0.22-3.90 ??Third Trimester: 0.44-4.66 Blood 07/09/2023 8:12 AM EST 07/09/2023 8:16 AM EST Narrative Resulting Agency Comment Spec In Lab Angela Heredia MD CHEMISTRY ORDERABLES Performing Organization Address City/[facility] Co de Phone Number [facility] [place] [address] * (ABNORMAL) Cystatin C (07/09/2023 8:12 AM EST) Cystatin C (SEPTEMBER) 1.23(H) 0.63 - 1.03 mg/L [facility] Comment: Test Performed by: [address] [address] New Order Clerk: Owen Zurita M.D. Ph.D.; CLIA# [id number] Cystatin C Egfr (SEPTEMBER) 58(L) >60 mL/min/BS A [facility] Comment: Estimated GFR calculated using the [...] with the new assay. Test Performed by: [facility] [place] [address] New Order Clerk: Owen Zurita M.D. Ph.D.; CLIA# [id number] Blood 07/09/2023 8:12 AM EST 07/09/2023 12:53 PM EST Narrative Resulting Agency Comment Spec In Lab Angela Heredia MD LAB SEND OUT ORDERAB LES [facility] [place] [address] documented in this encounter Visit Diagnoses Diagnosis Stage 3b chronic kidney disease Hypothyroidism, acquired Unspecified hypothyroidism Hypercalcemia Hyperparathyroidism Hyperparathyroidism, unspecified documented in this encounter Care Teams Installment Loan Collector Relationship Specialty Start Date End Date [place] [address] [place] [address] PCP - General General Internal Medicine 08/04/22 documented as of this encounter
--- OUTSIDE RECORDS SUMMARY | 2024-04-29 01:55 | XMS_ITS | Encounter Summary ---
[place] [address] Care Team Providers Care Gas Pipe Layer Name Role Phone Haylie Steward MD Primary Care Provider [phone] Encounter Details Date Type Department Care Team (Latest Contact Info) Description 06/08/2023 11:25 AM EST Laboratory Appointment Lab [address] [place] [phone] Primary hyperparathyroidism ; Hyperparathyroidism ; Anemia in [...] Scheduled View Only Radiation Oncology at [address] [phone] 05/02/2024 3:45 PM EST Scheduled View Only Radiation Oncology at [address] [phone] 05/03/2024 1:45 PM EST Scheduled View Only Radiation Oncology at [address] [phone] 05/03/2024 2:15 PM EST Office Visit Radiation Oncology at [address] [phone] Ofe Fonseca MD [facility] RADIATION [place] [address] 05/05/2024 8:15 AM EST Scheduled View Only Radiation Oncology at [address] [phone] 05/06/2024 12:30 PM EST Scheduled View Only Radiation Oncology at [address] [phone] 05/09/2024 12:30 PM EST Scheduled View Only Radiation Oncology at [address] [phone] 05/10/2024 2:30 PM EST Scheduled View Only Radiation Oncology at [address] [phone] 05/10/2024 3:15 PM EST Office Visit Radiation Oncology at [address] [phone] Ofe Fonseca MD [facility] RAD[place] [address] 05/11/2024 2:30 PM EST Scheduled View Only Radiation Oncology at [address] [address] 05/11/2024 3:15 PM EST Scheduled View Only Radiation Oncology at [address] [phone] Ofe Fonseca MD [facility] [place] [address] 05/12/2024 2:45 PM EST Scheduled View Only Radiation Oncology at [address] [phone] 06/03/2024 3:30 PM EST Appointment Ultrasound at [place] [phone] Mira Hutchison, [facility] [place] [address] 06/23/2024 4:00 PM EST Appointment Mammography/DXA at [place] [phone] Miryam Feliciano MD [facility] [place] [address] 07/12/2024 8:00 AM EDT Laboratory Appointment Lab [address] [place], [place] [phone] 07/12/2024 9:30 AM EDT Office Visit Nephrology Hypertension at [place] [phone] Sharmin Jean-Baptiste [facility] [place] [address] 07/13/2024 10:30 AM EDT Laboratory Appointment Lab at [facility] Hematology Oncology [address] [place] [phone] 07/13/2024 11:30 AM EDT Office Visit Hematology [place] [phone] Salena Alvares [employer]AM[employer] OPERATOR [facility] [place] [address] 07/13/2024 12:45 PM EDT Appointment Hematology [place] [address] documented as of this encounter Procedures Procedure [...] 11:22 AM EST) Creatinine, Urine 24 mg/dL [facility] Protein, Urine <6 0 - 12 mg/dL [facility] Protein / Creatinine Ratio, Urine <0.2 ratio [facility] Urine 06/08/2023 11:2 2 AM EST 06/08/2023 11:37 AM EST Narrative Resulting Agency Comment Spec In Lab Horace Rogers MD URINE ORDERABLES [facility] [place] [address] * (ABNORMAL) Basic Metabolic Panel (non-fasting) (06/08/2023 11:04 AM EST) Glucose 81 65 - 199 mg/dL [facility] Comment:Diabetes: >=200 mg/d L plus symptoms Blood Urea Nitrogen 20(H) 8 - 18 mg/dL [facility] Creatinine 1.36(H) 0.70 - 1.20 mg/dL [facility] Sodium 141 135 - 145 mmol/L [facility] Potassium 4.5 3.5 - 5.0 mmol/L [facility] Comment: Please note: ??Patients with WBC >100,000 may have falsely elevated Potassium levels. ??For accurate Potassium quantification in these patients send serum separator tube (gold top) for subsequent determinations. ??Contact the Clinical Chemistry Laboratory if there are any questions. Chloride 107 98 - 107 mmol/L [facility] Carbon Dioxide 21(L) 22 - 31 mmol/L [facility] Anion Gap 13 5 - 15 mmol/L [facility] Calcium 10.1 8.5 - 10.5 mg/dL [facility] Est Glomerular Filtration Rate 48(L) >=60 mL/min/1. 73 m?? [facility] Comment: This patient's estimated GFR was [...] In Lab Horace Rogers MD CHEMISTRY ORDERABLES [facility] [place] [address] * Ferritin (06/08/2023 11:04 AM EST) Ferritin 44 6 - 175 ng/mL [facility] Comment: Please note that as of 04/08/2023, the reference intervals for Ferritin have been updated. Blood 06/08/2023 11:0 4 AM EST 06/08/2023 11:19 AM EST Narrative Resulting Agency Comment Spec In Lab Horace Rogers MD CHEMISTRY ORDERABLES [facility] [place] [address] * Iron and TIBC (06/08/2023 11:04 AM EST) Iron 117 30 - 150 mcg/dL [facility] TIBC Not Calculated 250 - 450 mcg/dL [facility] Iron Saturation Not Calculated 20 - 50 % [facility] Blood 06/08/2023 11:0 4 AM EST 06/08/2023 11:19 AM EST Narrative Resulting Agency Comment Spec In Lab Horace Rogers MD CHEMISTRY ORDERABLES Performing Organization Address City/[facility] Co de Phone Number [facility] [place] [address] * Albumin Level (06/08/2023 11:04 AM EST) Albumin 4.4 3.2 - 5.2 g/dL [facility] Blood 06/08/2023 11:0 4 AM EST 06/08/2023 11:19 AM EST Narrative Resulting Agency Comment Spec In Lab Horace Rogers MD CHEMISTRY ORDERABLES Performing Organization Address City/[facility] Co de Phone Number [facility] [place] [address] * Phosphorus (06/08/2023 11:04 AM EST) Phosphorus 3.2 2.5 - 4.5 mg/dL [facility] Blood 06/08/2023 11:0 4 AM EST 06/08/2023 11:19 AM EST Narrative Resulting Agency Comment Spec In Lab Horace Rogers MD CHEMISTRY ORDERABLES Performing Organization Address City/[facility]/ZIP Co de Phone Number [facility] [place] [address] * (ABNORMAL) PTH (06/08/2023 11:04 AM EST) Parathyroid Hormone 138(H) 15 - 65 pg/mL [facility] Blood 06/08/2023 11:0 4 AM EST 06/08/2023 11:20 AM EST Narrative Resulting Agency Comment Spec In Lab Angela Heredia MD CHEMISTRY ORDERABLES Performing Organization Address [facility] Co de Phone Number [facility] [place] [address] * Vitamin D, 25-Hydroxy (06/08/2023 11:04 AM EST) Vitamin D Total 25 OH 41 21 - 100 ng/mL [facility] Vit D Interp Sufficient [facility] Blood 06/08/2023 11:0 4 AM EST 06/08/2023 11:19 AM EST Narrative Resulting Agency Comment Spec In Lab Angela Heredia MD CHEMISTRY ORDERABLES Performing Organization Address City/[facility] Co de Phone Number [facility] [place] [address] documented in this encounter Visit Diagnoses Diagnosis Primary hyperparathyroidism Hyperparathyroidism Hyperparathyroidism, unspecified Anemia in stage 3a chronic kidney disease Stage 3a chronic kidney disease documented in this encounter Care Teams Gas Pipe Layer Relationship Specialty Start Date End Date Haylie Steward MD [place] [address] PCP - General General Internal Medicine 08/04/22 documented as of this encounter
--- OUTSIDE RECORDS SUMMARY | 2024-04-29 01:55 | XMS_ITS | Encounter Summary ---
[place] [address] Care Team Providers Care Apprentice Funeral Director Name Role Phone Haylie Steward MD Primary Care Provider [phone] Reason for Referral * Diagnostic Test (Routine) - Closed Specialty Diagnoses / Procedures Referred By Contac t Referred To Contact Radiology Diagnoses Irritable bowel syndrome with both constipation and diarrhea Procedures MRI Enterography wwo Contrast Rolly Cook MD [facility] [place] [address] [place] [address] Referral ID Status Reason Start Date Expiration Date V isits Requested Visits Authorized [id number] Closed Specialty Service Requested 06/15/2023 12/13/2024 1 1 Reason for Visit * Diagnostic Test (Routine) - Closed Specialty Diagnoses / Procedures Referred By Contac t Referred To Contact Radiology Diagnoses Irritable bowel syndrome with both constipation and diarrhea Procedures MRI Enterography wwo Contrast Rolly Cook MD [facility] [address] [place] [address] Referral ID Status Reason Start Date Expiration Date V isits Requested Visits Authorized [id number] Closed Specialty Service Requested 06/15/2023 12/13/2024 1 1 Encounter Details Date Type Department Care Team (Latest Contact Info) Description 06/25/2023 2:58 PM EST - 06/25/2023 11:59 PM EST Hospital Encounter MRI at [facility] [place] [address] Rolly Cook MD [facility] [address] Irritable bowel syndrome with both constipation and diarrhea Discharge Disposition: Home Social History Tobacco Use Types Packs/Day Years Used Date Smoking Tobacco: Never Smokeless Tobacco: Never Alcohol Use Standard Drinks/Week Comments Not Currently 0 (1 standard drink = 0.6 oz pur e alcohol) [facility] Inpatient Questions Answer Date Recorded [...] Scheduled View Only Radiation Oncology at [address] [phone] 05/02/2024 3:45 PM EST Scheduled View Only Radiation Oncology at [address] [address] 05/03/2024 1:45 PM EST Scheduled View Only Radiation Oncology at [address] [address] 05/03/2024 2:15 PM EST Office Visit Radiation Oncology at [address] [phone] Ofe Fonseca MD [facility] [place] [address] 05/05/2024 8:15 AM EST Scheduled View Only Radiation Oncology at [address] [address] 05/06/2024 12:30 PM EST Scheduled View Only Radiation Oncology at [address] [address] 05/09/2024 12:30 PM EST Scheduled View Only Radiation Oncology at [address] [address] 05/10/2024 2:30 PM EST Scheduled View Only Radiation Oncology at [address] [address] 05/10/2024 3:15 PM EST Office Visit Radiation Oncology at [address] [phone] Ofe Fonseca MD [facility] [place] [address] 05/11/2024 2:30 PM EST Scheduled View Only Radiation Oncology at [address] [address] 05/11/2024 3:15 PM EST Scheduled View Only Radiation Oncology at [address] [phone] Ofe Fonseca MD [facility] [place] [address] 05/12/2024 2:45 PM EST Scheduled View Only Radiation Oncology at [address] [phone] 06/03/2024 3:30 PM EST Appointment Ultrasound at [place] [phone] Mira Hutchison GRILL PREP COOK [facility] [place] [address] 06/23/2024 4:00 PM EST Appointment Mammography/DXA at [place] [phone] Miryam Feliciano MD [facility] [address] 07/12/2024 8:00 AM EDT Laboratory Appointment Lab [place] [phone] 07/12/2024 9:30 AM EDT Office Visit [place] [phone] Sharmin Jean-Baptiste APRN [facility] [place] [address] 07/13/2024 10:30 AM EDT Laboratory Appointment Lab at [facility] Hematology Oncology [address] [place] [phone] 07/13/2024 11:30 AM EDT Office Visit [place] [phone] Salena Alvares, [facility] [place] [address] 07/13/2024 12:45 PM EDT Appointment [place] [phone] documented as of this encounter Procedures Procedure [...] larger compared to ultrasounds from 2022. Consider ASSISTANT PRINTER FLOOR COVERING consultation. 3. ??Numerous bilateral renal cysts consistent [...] have questions please contact the health career technical education teacher that requested your imaging first. ? Narrative [...] slightly larger comparedto ultrasounds from 2022. Consider ASSISTANT PRINTER FLOOR COVERING consultation. 3. Numerous bilateral renal cysts consistent [...] patients who have questions please contactthe health career technical education teacher that requested your imaging first. Rolly Cook [...] Deltoid documented in this encounter Care Teams Apprentice Funeral Director Relationship Specialty Start Date [place] [address] PCP - General General Internal Medicine 08/04/22 documented as of this encounter
--- OUTSIDE RECORDS SUMMARY | 2024-04-29 01:55 | XMS_ITS | Encounter Summary ---
[place] [address] Care Team Providers Care Web Services Architect Name Role Phone Haylie Steward MD Primary Care Provider [phone] Encounter Details Date Type Department Care Team (Late st Contact Info) Description 06/11/2023 3:25 PM EST Anesthesia Event [place] [phone] Giselle Wall MD [facility] [place] [address] Fernandez Martino CRNA [facility] [place] [address] Anesthesia Record Procedure Summary Procedure Name Responsible [...] Type Details Placement Removal PIV 06/11/23; 1408; gjff-erz-oisjdo catheter system; 22 gauge; metacarpal vein (top [...] Procedure Summary Date: 06/11/23 Room / Location: [facility] ENDO 2 / [facility] Anesthesia Start: 1525 Anesthesia Stop: 1616 Procedures: EGD WITH BIOPSY (WRVU 2.39) (Trunk) COLONOSCOPY FLEXIBLE, WITH BX (WRVU 3.56) (Abdomen) Diagnosis: Iron deficiency anemia, unspecified iron deficiency anemia type (DARRIUS; diarrhea) Surgeons: Jack Page MD Responsible Provider: Giselle Wall MD Anesthesia Type: MAC ASA Status: 2 All Anesthesia Providers: Anesthesiologist: Giselle Wall MD SIXTH GRADE TEACHER: Fernandez Martino CRNA Vitals Value Taken Time BP 121/76 06/11/23 1630 Temp Pulse 64 06/11/23 1615 Resp 18 06/11/23 1615 SpO2 100 % 06/11/23 1631 Pain Level 0 06/11/23 1615 Vitals shown include unfiled device data. Patient Location: PACU/[facility] Level of Consciousness: Awake and [...] Active Problem List Diagnosis Date Noted ??? [place] intoxication, accidental or unintentional, initial encounter [...] Patient states it affects her bipolar medication [place]. Medications: MAR and/or home medications have [...] treated with OTC meds Denies smoking, asthma, [place], stroke, liver diease, DM Plan propofol sedation Region - Other Informed Consent: Anesthetic plan and risks discussed with patient. Plan discussed with SIXTH GRADE TEACHER. Anesthesia Screening documented in this encounter Plan of Treatment Upcoming Encounters Date Type Department Care Team (Latest Contact Info) Description 04/29/2024 3:00 PM EST Scheduled View Only Radiation Oncology at [address] [phone] 05/02/2024 3:45 PM EST Scheduled View Only Radiation Oncology at [address] [phone] 05/03/2024 1:45 PM EST Scheduled View Only Radiation Oncology at [address] [address] 05/03/2024 2:15 PM EST Office Visit Radiation Oncology at [address] [phone] Ofe Fonseca MD [facility] RAD[place] [address] 05/05/2024 8:15 AM EST Scheduled View Only Radiation Oncology at [address] [phone] 05/06/2024 12:30 PM EST Scheduled View Only Radiation Oncology at [address] [address] 05/09/2024 12:30 PM EST Scheduled View Only Radiation Oncology at [address] [phone] 05/10/2024 2:30 PM EST Scheduled View Only Radiation Oncology at [address] [address] 05/10/2024 3:15 PM EST Office Visit Radiation Oncology at [address] [phone] Ofe Fonseca MD [facility] RADIATION [place]COL[place] [address] 05/11/2024 2:30 PM EST Scheduled View Only Radiation Oncology at [address] [address] 05/11/2024 3:15 PM EST Scheduled View Only Radiation Oncology at [address] [phone] Ofe Fonseca MD [facility] [place] [address] 05/12/2024 2:45 PM EST Scheduled View Only Radiation Oncology at [address] [phone] 06/03/2024 3:30 PM EST Appointment Ultrasound at [place] [phone] Mira Hutchison COMPUTER APPLICATIONS INSTRUCTOR [facility] [address] 06/23/2024 4:00 PM EST Appointment Mammography/DXA at [place] [phone] Miryam Feliciano MD [facility] [place] [address] 07/12/2024 8:00 AM EDT Laboratory Appointment Lab [address] [place], [place] [phone] 07/12/2024 9:30 AM EDT Office Visit Nephrology Hypertension at [place] [phone] Sharmin Jean-Baptiste [facility] [place] [address] 07/13/2024 10:30 AM EDT Laboratory Appointment Lab at [facility] Hematology Oncology [address] [place] [phone] 07/13/2024 11:30 AM EDT Office Visit Hematology [place] [phone] Salena Alvares COMPUTER APPLICATIONS INSTRUCTOR [facility] [place] [address] 07/13/2024 12:45 PM EDT Appointment Hematology and Oncology at [facility] [place] [address] documented as of this encounter Visit Diagnoses Not on filedocumented in this encounter Administered Medications Inactive Administered Medications - up to 3 most recent administrations Medication Order MAR Action Action Date Dose Rate Site dexmedeTOMIDine (Precedex) (4 mcg/mL) bolus injection (Anesthsia) Intravenous, PRN, Starting on Yaneth 06/11/23 at 1531, [...] hr documented in this encounter Care Teams Web Services Architect Relationship Specialty Start Date End Date Haylie Steward MD [place] [address] PCP - General General Internal Medicine 08/04/22 documented as of this encounter
--- OUTSIDE RECORDS SUMMARY | 2024-04-29 01:55 | XMS_ITS | Encounter Summary ---
Author Organization [facility] [place] [address] Care Team Providers Care Computing Services Director Name Role Phone Haylie Steward MD Primary Care Provider [phone] Encounter Details Date Type Department Care Team [...] Scheduled View Only Radiation Oncology at [address] [phone] 05/02/2024 3:45 PM EST Scheduled View Only Radiation Oncology at [address] [address] 05/03/2024 1:45 PM EST Scheduled View Only Radiation Oncology at [address] [address] 05/03/2024 2:15 PM EST Office Visit Radiation Oncology at [address] [phone] Ofe Fonseca MD [facility] [place] [address] 05/05/2024 8:15 AM EST Scheduled View Only Radiation Oncology at [address] [address] 05/06/2024 12:30 PM EST Scheduled View Only Radiation Oncology at [address] [address] 05/09/2024 12:30 PM EST Scheduled View Only Radiation Oncology at [address] [address] 05/10/2024 2:30 PM EST Scheduled View Only Radiation Oncology at [address] [address] 05/10/2024 3:15 PM EST Office Visit Radiation Oncology at [address] [phone] Ofe Fonseca MD [facility] [place] [address] 05/11/2024 2:30 PM EST Scheduled View Only Radiation Oncology at [address] [address] 05/11/2024 3:15 PM EST Scheduled View Only Radiation Oncology at [address] [phone] Ofe Fonseca MD [facility] [place] [address] 05/12/2024 2:45 PM EST Scheduled View Only Radiation Oncology at [address] [phone] 06/03/2024 3:30 PM EST Appointment Ultrasound at [place] [phone] Mira Hutchison [facility] [place] [address] 06/23/2024 4:00 PM EST Appointment Mammography/DXA at [place] [phone] Miryam Feliciano MD [facility] [place] [address] 07/12/2024 8:00 AM EDT Laboratory Appointment Lab [address] [place], [place] [phone] 07/12/2024 9:30 AM EDT Office Visit Nephrology Hypertension at [place] [phone] Sharmin Jean-Baptiste, [facility] [place] [address] 07/13/2024 10:30 AM EDT Laboratory Appointment Lab at [facility] Hematology Oncology [address] [place] [phone] 07/13/2024 11:30 AM EDT Office Visit Hematology [place] [phone] Salena Alvares [facility] [place] [address] 07/13/2024 12:45 PM EDT Appointment Hematology [place] [phone] documented as of this encounter Visit Diagnoses Not on filedocumented in this encounter Care Teams Computing Services Director Relationship Specialty Start Date End Date Haylie Steward MD [facility] [place] [address] PCP - General General Internal Medicine 08/04/22 documented as of this encounter
--- OUTSIDE RECORDS SUMMARY | 2024-04-29 01:55 | XMS_ITS | Encounter Summary ---
Author Organization [facility] [place] [address] Care Team Providers Care Senior Risk Analyst Name Role Phone Haylie Steward MD Primary Care Provider [phone] Encounter Details Date Type Department Care Team (Late st Contact Info) Description 06/05/2023 Telephone [place] [phone] Kamila Noriega RN Social History Tobacco Use Types Packs/Day Years Used Date Smoking Tobacco: Never Smokeless Tobacco: Never Alcohol Use Standard Drinks/Week Comments Not Currently 0 (1 standard drink = 0.6 oz pur e alcohol) [facility] Inpatient Questions Answer Date Recorded [...] 2:54 PM EST Copied from [facility] #[id number]. Topic: Specialty Dept CRMs - Generic Call [...] Scheduled View Only Radiation Oncology at [address] [address] 05/02/2024 3:45 PM EST Scheduled View Only Radiation Oncology at [address] [address] 05/03/2024 1:45 PM EST Scheduled View Only Radiation Oncology at [address] [address] 05/03/2024 2:15 PM EST Office Visit Radiation Oncology at [address] [phone] Ofe Fonseca MD [facility] [place] [address] 05/05/2024 8:15 AM EST Scheduled View Only Radiation Oncology at [address] [phone] 05/06/2024 12:30 PM EST Scheduled View Only Radiation Oncology at [address] [address] 05/09/2024 12:30 PM EST Scheduled View Only Radiation Oncology at [address] [phone] 05/10/2024 2:30 PM EST Scheduled View Only Radiation Oncology at [address] [address] 05/10/2024 3:15 PM EST Office Visit Radiation Oncology at [address] [phone] Ofe Fonseca MD [facility] [place] [address] 05/11/2024 2:30 PM EST Scheduled View Only Radiation Oncology at [address] [address] 05/11/2024 3:15 PM EST Scheduled View Only Radiation Oncology at [address] [phone] Ofe Fonseca MD [facility] [place] [address] 05/12/2024 2:45 PM EST Scheduled View Only Radiation Oncology at [address] [phone] 06/03/2024 3:30 PM EST Appointment Ultrasound at [address]1000 Mira Hutchison STRATEGIC PLANNING MANAGER [facility] [place] [address] 06/23/2024 4:00 PM EST Appointment Mammography/DXA at [place] [phone] Miryam Feliciano MD [facility] [place] [address] 07/12/2024 8:00 AM EDT Laboratory Appointment Lab [address] [phone] 07/12/2024 9:30 AM EDT Office Visit Nephrology Hypertension at [place] [phone] Sharmin Jean-Baptiste APRN [facility] [place] [address] 07/13/2024 10:30 AM EDT Laboratory Appointment Lab at [facility] Hematology Oncology [address] [place] [phone] 07/13/2024 11:30 AM EDT Office Visit Hematology [place] [phone] Salena Alvares APRN [facility] [place] [address] 07/13/2024 12:45 PM EDT Appointment Hematology [place] [phone] documented as of this encounter Visit Diagnoses Not on filedocumented in this encounter Additional Health Concerns Infection Onset Date Last Indicated Resolved Time Rule Out C. difficile 06/18/2023 06/18/20232023 2:04 PM EST documented as of this encounter Care Teams Senior Risk Analyst Relationship Specialty Start Date End [place] [address] PCP - General General Internal Medicine 08/04/22 documented as of this encounter
--- OUTSIDE RECORDS SUMMARY | 2024-04-29 01:55 | XMS_ITS | Encounter Summary ---
Author Organization [facility] [place] [address] Care Team Providers Care Supervisor Of Communications Name Role Phone Haylie Steward MD Primary Care Provider [phone] Encounter Details Date Type Department Care Team [...] EST Scheduled View Only Radiation Oncology at [address] [phone] 05/02/2024 3:45 PM EST Scheduled View Only Radiation Oncology at [address] [phone] 05/03/2024 1:45 PM EST Scheduled View Only Radiation Oncology at [address] [phone] 05/03/2024 2:15 PM EST Office Visit Radiation Oncology at [address] [phone] Ofe Fonseca MD [facility] RADIATION [place] [address] 05/05/2024 8:15 AM EST Scheduled View Only Radiation Oncology at [address] [phone] 05/06/2024 12:30 PM EST Scheduled View Only Radiation Oncology at [address] [address] 05/09/2024 12:30 PM EST Scheduled View Only Radiation Oncology at [address] [phone] 05/10/2024 2:30 PM EST Scheduled View Only Radiation Oncology at [address] [phone] 05/10/2024 3:15 PM EST Office Visit Radiation Oncology at [address] [phone] Ofe Fonseca MD [facility] [place] [address] 05/11/2024 2:30 PM EST Scheduled View Only Radiation Oncology at [address] [phone] 05/11/2024 3:15 PM EST Scheduled View Only Radiation Oncology at [address] [phone] Ofe Fonseca MD [facility] [place] [address] 05/12/2024 2:45 PM EST Scheduled View Only Radiation Oncology at [address] [phone] 06/03/2024 3:30 PM EST Appointment Ultrasound at [place] [phone] Mira Hutchison [facility] [place] [address] 06/23/2024 4:00 PM EST Appointment Mammography/DXA at [place] [phone] Miryam Feliciano MD [facility] [place] [address] 07/12/2024 8:00 AM EDT Laboratory Appointment Lab [address] [place], [place] [phone] 07/12/2024 9:30 AM EDT Office Visit Nephrology Hypertension at [place] [phone] Sharmin Jean-Baptiste, [facility] [place] [address] 07/13/2024 10:30 AM EDT Laboratory Appointment Lab at [facility] [place] On[place] [address] [place] [phone] 07/13/2024 11:30 AM EDT Office Visit Hematology [place] [phone] Salena Alvares [facility] [place] [address] 07/13/2024 12:45 PM EDT Appointment Hematology [place] [phone] documented as of this encounter Visit Diagnoses Not on filedocumented in this encounter Care Teams Supervisor Of Communications Relationship Specialty Start Date End Date Haylie Steward MD [facility] [place] [address] PCP - General General Internal Medicine 08/04/22 documented as of this encounter
--- OUTSIDE RECORDS SUMMARY | 2024-04-29 01:55 | XMS_ITS | Encounter Summary ---
[place] [address] Care Team Providers Care Order Entry Technician Name Role Phone Haylie Steward MD Primary Care Provider [phone] Encounter Details Date Type Department Care Team (Latest Contact Info) Description 07/06/2023 7:50 AM EST Laboratory Appointment Lab 3L [place] [phone] Bipolar 1 disorder Social History Tobacco Use [...] EST Scheduled View Only Radiation Oncology at [address] [phone] 05/02/2024 3:45 PM EST Scheduled View Only Radiation Oncology at [address] [address] 05/03/2024 1:45 PM EST Scheduled View Only Radiation Oncology at [address] [phone] 05/03/2024 2:15 PM EST Office Visit Radiation Oncology at [address] [address] Ofe Fonseca MD [facility] [place] [address] 05/05/2024 8:15 AM EST Scheduled View Only Radiation Oncology at [address] [address] 05/06/2024 12:30 PM EST Scheduled View Only Radiation Oncology at [address] [address] 05/09/2024 12:30 PM EST Scheduled View Only Radiation Oncology at [address] [address] 05/10/2024 2:30 PM EST Scheduled View Only Radiation Oncology at [address] [address] 05/10/2024 3:15 PM EST Office Visit Radiation Oncology at [address] [address] Ofe Fonseca MD [facility] RAD[place] [address] 05/11/2024 2:30 PM EST Scheduled View Only Radiation Oncology at [address] [address] 05/11/2024 3:15 PM EST Scheduled View Only Radiation Oncology at [address] [address] Ofe Fonseca MD [facility] [place] [address] 05/12/2024 2:45 PM EST Scheduled View Only Radiation Oncology at [address] [phone] 06/03/2024 3:30 PM EST Appointment Ultrasound at [place] [phone] Mira Hutchison [facility] [place] [address] 06/23/2024 4:00 PM EST Appointment Mammography/DXA at [place] [phone] Miryam Feliciano MD [facility] [place] [address] 07/12/2024 8:00 AM EDT Laboratory Appointment Lab [address] [place], [place] [phone] 07/12/2024 9:30 AM EDT Office Visit Nephrology Hypertension at [place] [phone] Sharmin Jean-Baptiste [facility] [place] [address] 07/13/2024 10:30 AM EDT Laboratory Appointment Lab at [facility] Hematology Oncology [address] [place] [phone] 07/13/2024 11:30 AM EDT Office Visit [place] [phone] Salena Alvares [facility] DR [place] [address] 07/13/2024 12:45 PM EDT Appointment Hematology [place] [address] documented as of this encounter Procedures Procedure Name Priority Date/Time Associated Diagnosis Comments VALPROIC ACID LEVEL, TOTAL Routine 07/06/2023 8:03 AM EST Bipolar 1 disorder documented in this encounter Results * Valproic Acid Level, Total (07/06/2023 8:03 AM EST) Valproic Acid 90 mg/L [facility] Comment: Therapeutic Range: Anticonvulsant Therapy: ??50-100 mg/L Manic Episodes Associated with Bipolar Disorder: ??50-125 mg/L Blood 07/06/2023 8:03 AM EST 07/06/2023 8:23 AM EST Narrative Resulting Agency Comment Spec In Lab Michelet Monge MD CHEMISTRY ORDERABLES Performing Organization Address City/State/[facility] Co de Phone Number [facility] [place] [address] documented in this encounter Visit Diagnoses Diagnosis Bipolar 1 disorder Bipolar I disorder, most recent episode (or current) unspecified documented in this encounter Care Teams Order Entry Technician Relationship Specialty Start Date [place] [address] PCP - General General Internal Medicine 08/04/22 documented as of this encounter
--- OUTSIDE RECORDS SUMMARY | 2024-04-29 01:55 | XMS_ITS | Encounter Summary ---
[place] [address] Care Team Providers Care University Controller Name Role Phone Haylie Steward MD Primary Care Provider + [phone] Encounter Details Date Type Department Care Team (Late st Contact Info) Description 06/17/2023 Telephone [place] [phone] Dahiana Johnston, RN Social History Tobacco Use Types Packs/Day Years Used Date Smoking Tobacco: Never Smokeless Tobacco: Never Alcohol Use Standard Drinks/Week Comments Not Currently 0 (1 standard drink = 0.6 oz pur e alcohol) [facility] Inpatient Questions Answer [...] - 06/17/2023 9:08 AM EST Copied from [facility] #[id number]. Topic: Specialty Dept CRMs - Generic Call [...] the answer to her question in a [employer] aeropl[employer] message. documented in this encounter Plan of Treatment Upcoming Encounters Date Type Department Care Team (Latest Contact Info) Description 04/29/2024 3:00 PM EST Scheduled View Only Radiation Oncology at [address] [address] 05/02/2024 3:45 PM EST Scheduled View Only Radiation Oncology at [address] [address] 05/03/2024 1:45 PM EST Scheduled View Only Radiation Oncology at [address] [address] 05/03/2024 2:15 PM EST Office Visit Radiation Oncology at [address] [address] Ofe Fonseca MD [facility] [place] [address] 05/05/2024 8:15 AM EST Scheduled View Only Radiation Oncology at [address] [address] 05/06/2024 12:30 PM EST Scheduled View Only Radiation Oncology at [address] [phone] 05/09/2024 12:30 PM EST Scheduled View Only Radiation Oncology at [address] [address] 05/10/2024 2:30 PM EST Scheduled View Only Radiation Oncology at [address] [address] 05/10/2024 3:15 PM EST Office Visit Radiation Oncology at [address] [phone] Ofe Fonseca MD [facility] [place] [address] 05/11/2024 2:30 PM EST Scheduled View Only Radiation Oncology at [address] [address] 05/11/2024 3:15 PM EST Scheduled View Only Radiation Oncology at [address] [address] Ofe Fonseca MD [facility] [place] [address] 05/12/2024 2:45 PM EST Scheduled View Only Radiation Oncology at [address] [address] 06/03/2024 3:30 PM EST [place] [phone] Mira Hutchison APRN [facility] [place] [address] 06/23/2024 4:00 PM EST Appointment Mammography/[place] [phone] Miryam Feliciano MD [facility] [place] [address] 07/12/2024 8:00 AM EDT Laboratory Appointment Lab [address] [address] 07/12/2024 9:30 AM EDT Office Visit [place] [address] Sharmin Jean-Baptiste, [facility] [place] [address] 07/13/2024 10:30 AM EDT Laboratory Appointment Lab at [facility] Hematology Oncology [address] [place] [phone] 07/13/2024 11:30 AM EDT Office Visit Hematology [place] [phone] Salena Alvares, [facility] [place] [address] 07/13/2024 12:45 PM EDT Appointment Hematology [place] [address] documented as of this encounter Visit Diagnoses Not on filedocumented in this encounter Additional Health Concerns Infection Onset Date Last Indicated Resolved Time Rule Out C. difficile 06/18/2023 06/18/20232023 2:04 PM EST documented as of this encounter Care Teams University Controller Relationship Specialty Start Date [place] [address] PCP - General General Internal Medicine 08/04/22 documented as of this encounter
--- OUTSIDE RECORDS SUMMARY | 2024-04-29 01:55 | XMS_ITS | Encounter Summary ---
Author Organization [facility] [place] [address] Care Team Providers Care Sea Kayaking Guide Name Role Phone Haylie Steward MD Primary Care Provider [phone] Encounter Details Date Type Department Care Team [...] Scheduled View Only Radiation Oncology at [address] [address] 05/02/2024 3:45 PM EST Scheduled View Only Radiation Oncology at [address] [address] 05/03/2024 1:45 PM EST Scheduled View Only Radiation Oncology at [address] [address] 05/03/2024 2:15 PM EST Office Visit Radiation Oncology at [address] [phone] Ofe Fonseca MD [facility] [place] [address] 05/05/2024 8:15 AM EST Scheduled View Only Radiation Oncology at [address] [address] 05/06/2024 12:30 PM EST Scheduled View Only Radiation Oncology at [address] [address] 05/09/2024 12:30 PM EST Scheduled View Only Radiation Oncology at [address] [address] 05/10/2024 2:30 PM EST Scheduled View Only Radiation Oncology at [address] [address] 05/10/2024 3:15 PM EST Office Visit Radiation Oncology at [address] [address] Ofe Fonseca MD [facility] RADIATION [place] [address] 05/11/2024 2:30 PM EST Scheduled View Only Radiation Oncology at [address] [address] 05/11/2024 3:15 PM EST Scheduled View Only Radiation Oncology at [address] [address] Ofe Fonseca MD [facility] [place] [address] 05/12/2024 2:45 PM EST Scheduled View Only Radiation Oncology at [address] [address] 06/03/2024 3:30 PM EST Appointment Ultrasound at [place] [phone] Mira Hutchison [facility] [place] [address] 06/23/2024 4:00 PM EST Appointment Mammography/DXA at [place] [phone] Miryam Feliciano MD [facility] [place] [address] 07/12/2024 8:00 AM EDT Laboratory Appointment Lab [address] [place], [place] [phone] 07/12/2024 9:30 AM EDT Office Visit Nephrology Hypertension at [place] [phone] Sharmin Jean-Baptiste, [facility] [place] [address] 07/13/2024 10:30 AM EDT Laboratory Appointment Lab at [facility] Hematology Oncology [address] [place] [phone] 07/13/2024 11:30 AM EDT Office Visit Hematology [place] [phone] Salena Alvares [facility] [place] [address] 07/13/2024 12:45 PM EDT Appointment Hematology [place] [phone] documented as of this encounter Visit Diagnoses Not on filedocumented in this encounter Care Teams Sea Kayaking Guide Relationship Specialty Start Date End Date Haylie Steward MD [facility] [place] [address] PCP - General General Internal Medicine 08/04/22 documented as of this encounter
--- OUTSIDE RECORDS SUMMARY | 2024-04-29 01:55 | XMS_ITS | Encounter Summary ---
Author Organization [facility] Address [facility] [place] [address] Care Team Providers Care Sawdust Drier Name Role Phone Haylie Steward MD Primary Care Provider + [phone] Encounter Details Date Type Department Care Team (Late st Contact Info) Description 06/11/2023 2:15 PM EST - 06/11/2023 3:15 PM EST Surgery [place] [address] Jack Page MD [facility] [place] [address] EGD WITH BIOPSY (WRVU 2.39) Social History Tobacco Use Types Packs/Day Years Used Date Smoking Tobacco: Never Smokeless Tobacco: Never Alcohol Use Standard Drinks/Week Comments Not Currently 0 (1 standard drink = 0.6 oz pur e alcohol) [facility] Inpatient Questions Answer Date [...] the day after the test, use an egvd-gau-viiwqmx spray or lozenges to numbyour throat. Warm [...] occurs, please contact your doctor. Please call [phone] before 8pm Mon-Fri with problems, questions, or concerns. If you call after 8pm or on weekends, call the Hospital at [phone] and ask for the Agriculture Mechanic operation specialist and the center machine set up operator will contact that person for you. When should you call for help? Call 518 anytime you think you may need emergency [...] more? You can view health information on [employer], your personal patient account. Log in or sign up today. Content Version: 12.2 ?? [id number] [employer]. Care instructions adapted under license by [facility]. If you have questions about a medical condition or this instruction, always ask your healthcare professional. [employer] disclaims any warranty or liability for your [...] disease (CKD) N18.31 Hyperparathyroidism E21.3 Anemia D64.9 Minorca intoxication, accidental or unintentional, initial encounter T56.891A [...] EST Scheduled View Only Radiation Oncology at [address] [address] 05/02/2024 3:45 PM EST Scheduled View Only Radiation Oncology at [address] [address] 05/03/2024 1:45 PM EST Scheduled View Only Radiation Oncology at [address] [address] 05/03/2024 2:15 PM EST Office Visit Radiation Oncology at [address] [address] Ofe Fonseca MD [facility] [place] [address] 05/05/2024 8:15 AM EST Scheduled View Only Radiation Oncology at [address] [address] 05/06/2024 12:30 PM EST Scheduled View Only Radiation Oncology at [address] [address] 05/09/2024 12:30 PM EST Scheduled View Only Radiation Oncology at [address] [address] 05/10/2024 2:30 PM EST Scheduled View Only Radiation Oncology at [address] [address] 05/10/2024 3:15 PM EST Office Visit Radiation Oncology at [address] [address] Ofe Fonseca MD [facility] [address] 05/11/2024 2:30 PM EST Scheduled View Only Radiation Oncology at [address] [address] 05/11/2024 3:15 PM EST Scheduled View Only Radiation Oncology at [address] [address] Ofe Fonseca MD [facility] [address] [place] [address] 05/12/2024 2:45 PM EST Scheduled View Only Radiation Oncology at [address] [address] 06/03/2024 3:30 PM EST Appointment Ultrasound at [address]1000 Mira Hutchison, [facility] [place] [address] 06/23/2024 4:00 PM EST Appointment Mammography/DXA at [place] [phone] Miryam Feliciano MD [facility] [place] [place] [address] 07/12/2024 8:00 AM EDT Laboratory Appointment Lab [address] [place] [address] 07/12/2024 9:30 AM EDT Office Visit Nephrology Hypertension at [place] [address] Sharmin Jean-Baptiste, [facility] [place] [address] 07/13/2024 10:30 AM EDT Laboratory Appointment Lab at [facility] Hematology Oncology [address] [place], [place] [phone] 07/13/2024 11:30 AM EDT Office Visit Hematology and Oncology at [place] [phone] Salena Alvares [facility] [place] [address] 07/13/2024 12:45 PM EDT Appointment Hematology and Oncology at [place] [phone] documented as of this encounter Procedures Procedure Name Priority Date/Time Associated Diagnosis Comments SPECIMEN TO PATHOLOGY Routine 06/11/2023 4:05 PM EST SPECIMEN TO PATHOLOGY Routine 06/11/2023 3:51 PM EST SPECIMEN TO PATHOLOGY Routine 06/11/2023 3:51 PM EST SURGICAL PATHOLOGY REPORT Routine 06/11/2023 3:45 PM EST Colonoscopy, Biopsy ([id number]) 06/11/2023 3:27 PM EST Iron deficiency anemia, unspecified iron deficiency anemia type Upper Gi Endoscopy, Biopsy ([id number]) 06/11/2023 3:27 PM EST Iron deficiency anemia, unspecified iron deficiency anemia type UPPER GI ENDOSCOPY Routine 06/11/2023 3: 11 PM EST COLONOSCOPY Routine 06/11/2023 3:10 PM EST documented in this encounter Results * Specimen to Pathology (06/11/2023 4:05 PM EST) AP Specimen 06/11/2023 4:05 PM EST 06/11/2023 4:05 PM EST Narrative [facility] - 06/11/2023 4:05 PM EST Specimen requisition ordered. ??Separate Pathology report to follow Jack Page MD PATHOLOGY/CYTOLOGY O RDERABLES Performing Organization Address [facility] [place] [address] * Specimen to Pathology (06/11/2023 3:51 PM EST) AP Specimen 06/11/2023 3:51 PM EST 06/11/2023 3:51 PM EST Narrative [facility] - 06/11/2023 3:51 PM EST Specimen requisition ordered. ??Separate Pathology report to follow Iggy Bauer MD PATHOLOGY/CYTOLOGY ORDERABLES Performing Organization Address [facility]/[place] [address] * Specimen to Pathology (06/11/2023 3:51 PM EST) AP Specimen 06/11/2023 3:51 PM EST 06/11/2023 3:51 PM EST Narrative [facility] - 06/11/2023 3:51 PM EST Specimen requisition ordered. ??Separate Pathology report to follow Iggy Bauer MD PATHOLOGY/CYTOLOGY ORDERABLES [facility] [place] [address] * Surgical Pathology Report (06/11/2023 3:45 PM EST) Final Diagnosis [id number] ? Location: 4T; EA06; A The signing [...] Sil Verified: ??06/17/2023 14:46 ??Pathologist Performed at: ??-[facility] Dept. of Pathology, [place] [address] Towel Sorter: Eileen Singleton MD, FCAP, ??CLIA Certificate: [id number] SPECIMEN(S) SUBMITTED A - duodenum biopsies. ??R/O [...] 0.4 to 0.7 cm. Tissue Description: Soft, uriz-pink tissues. Sections/Processi ng: Submitted in toto ??in 2 cassettes labeled B1-B2. C - Labeled/Fixative: Nontargeted colon biopsies, formalin. Quantity/Size: Multiple, ranging from 0.3 to 0.5 cm. Tissue Description: Soft, ruiz-pink tissues. Sections/Processi ng: Submitted in toto ??in 2 cassettes labeled C1-C2. ??sdy 06/17/2023 2:[address] [facility] GI Biopsy 06/11/2023 3:45 PM EST 06/11/2023 3:45 PM EST GI Biopsy 06/11/2023 3:45 PM EST 06/11/2023 3:45 PM EST GI Biopsy 06/11/2023 3:45 PM EST 06/11/2023 3:45 PM EST Iggy Bauer MD PATHOLOGY/CYTOLOGY ORDERABLES Performing Organization Address [facility]/State/[facility] Co de Phone Number [facility] [place] [phone] [place] [address] [place] [address] * UPPER GI ENDOSCOPY (06/11/2023 3:11 PM EST) UPPER GI ENDOSCOPY [facility] Endoscopy Procedure Date: 06/11/2023 3:11 PM ? Patient Name: Nataliya Morfin ? Date of : 1975 ? Age: 48 ? Order #: [id number] ? Instrument Name: [id number]- [id number] ? Procedure: ? Upper GI endoscopy Indications: ? Iron deficiency anemia Providers: ? Jack Page MD, Iggy Mason ? Marce Bauer Elizabeth R. ? Rolly Gurrola MD: ?Haylie Steward MD [...] the ? physician, the nurse, the ? hydrologic engineer and the hvac installation technician. The ? procedure was verified in [...] care under ? the supervision of a STORE HOST was ? determined to be medically ? [...] * COLONOSCOPY (06/11/2023 3:10 PM EST) COLONOSCOPY [facility] Endoscopy Procedure Date: 06/11/2023 3:10 PM ? Patient Name: Nataliya Landrumblake ? N: [id number] ? Date of : 1975 ? Age: 48 ? Order #: [id number] ? Instrument Name: [id number] ? Procedure: ? Colonoscopy Indications: ? Chronic diarrhea, Iron deficiency ? anemia, prior normal colo 2014 ? (including non-targeted colon ? biopsies) Providers: ? Jack Page MD, Iggy Mason ? Ольга Bauer Becky ? Rolly Bermeo Referring : ?Haylie Steward MD, Lyssa Tolliver ? [place] Medicines: ? Monitored Anesthesia Care Complications: ? [...] the ? physician, the nurse, the ? hydrologic engineer and the hvac installation technician. The ? procedure was verified in [...] care under ? the supervision of a STORE HOST was ? determined to be medically ? [...] preparation was evaluated ? using the BBPS ([place] Bowel ? Preparation Scale) with scores of: [...] CRNA) documented in this encounter Care Teams Sawdust Drier Relationship Specialty Start Date End Date Haylie Steward MD [facility] [place] [address] PCP - General General Internal Medicine 08/04/22 documented as of this encounter
--- OUTSIDE RECORDS SUMMARY | 2024-04-29 01:55 | XMS_ITS | Encounter Summary ---
Author Organization [facility] [place] [address] Care Team Providers Care Director Operating Name Role Phone Haylie Steward MD Primary Care Provider [phone] Encounter Details Date Type Department Care Team (Latest Contact Info) Description 06/18/2023 12:44 PM EST - 06/18/2023 11:59 PM EST Hospital [place] [phone] Irritable bowel syndrome with both constipation and diarrhea Discharge Disposition: Home Social History Tobacco Use Types Packs/Day Years Used Date Smoking Tobacco: Never Smokeless Tobacco: Never Alcohol Use Standard Drinks/Week Comments Not Currently 0 (1 standard drink = 0.6 oz pur e alcohol) [facility] Inpatient Questions Answer Date Recorded Does [...] Scheduled View Only Radiation Oncology at [address] [address] 05/02/2024 3:45 PM EST Scheduled View Only Radiation Oncology at [address] [address] 05/03/2024 1:45 PM EST Scheduled View Only Radiation Oncology at [address] [address] 05/03/2024 2:15 PM EST Office Visit Radiation Oncology at [address] [address] [facility] [place] [address] 05/05/2024 8:15 AM EST Scheduled View Only Radiation Oncology at [address] [address] 05/06/2024 12:30 PM EST Scheduled View Only Radiation Oncology at [address] [address] 05/09/2024 12:30 PM EST Scheduled View Only Radiation Oncology at [address] [address] 05/10/2024 2:30 PM EST Scheduled View Only Radiation Oncology at [address] [address] 05/10/2024 3:15 PM EST Office Visit Radiation Oncology at [address] [address] [facility] [place] [address] 05/11/2024 2:30 PM EST Scheduled View Only Radiation Oncology at [address] [address] 05/11/2024 3:15 PM EST Scheduled View Only Radiation Oncology at [address] [address] [facility] [place] [address] 05/12/2024 2:45 PM EST Scheduled View Only Radiation Oncology at [address] [address] 06/03/2024 3:30 PM EST [place] [phone] [facility] [place] [address] 06/23/2024 4:00 PM EST Appointment Mammography/[place] [address] [facility] [place] [address] 07/12/2024 8:00 AM EDT Laboratory Appointment Lab [place] [address] 07/12/2024 9:30 AM EDT Office Visit [place] [phone] Sharmin Jean-Baptiste, [facility] [place] [address] 07/13/2024 10:30 AM EDT Laboratory Appointment Lab at [facility] Hematology Oncology [address] [place] [address] 07/13/2024 11:30 AM EDT Office Visit Hematology [place] [address] Salena Alvares, [facility] [place] [address] 07/13/2024 12:45 PM EDT Appointment Hematology [place] [address] documented as of this encounter Procedures Procedure Name Priority Date/Time Associated Diagnosis Comments GIARDIA/CRYPTOSPOR IDIUM ANTIGENS ([facility]/CGP/APD/NLH) Routine 06/18/2023 7:58 AM EST Irritable bowel syndrome with both constipation and diarrhea ELASTASE, STOOL Routine 06/18/2023 7:58 AM EST Irritable bowel syndrome with both constipation and diarrhea documented in this encounter Results * Elastase, Stool (06/18/2023 7:58 AM EST) Elastase Stool (QST) 485 mcg/g [facility] Comment: Adult and Pediatric Reference Ranges for ??Pancreatic Elastase-1: ? Normal: ?>200 mcg/g Moderate Pancreatic ?Insufficiency: ?? 100-200 mcg/g ??Severe Pancreatic ?Insufficiency: ?<100 mcg/g Elastase-1 (E-1) assay results are expressed in mcg/g, which represent mcg E1/g feces. It is not necessary to interrupt enzyme substitution therapy. Test performed by [facility] ?[address], ?[place] [address] ? Cargoman: Annemarie Coon MD,PHD,DEANN Test Reported by [facility], [facility], [address] [place] [address] Arnulfo Sarah M.D., Ph.D., Director of Laboratories , [facility] [id number] Stool 06/18/2023 7:58 AM EST 06/18/2023 2:33 PM EST Narrative Resulting Agency Comment Spec In Lab Rolly Cook MD LAB SEND OUT ORDERAB LES [facility] [place] [address] * Giardia/Cryptosporidium Antigens ([facility]/CGP/APD/NLH) (06/18/2023 7:58 AM EST) Giardia Antigen Negative Negative [facility] Comment:Examination for othe r intestinal parasites requires foreign travel history. Cryptosporidium Antigen Negative Negative [facility] Stool 06/18/2023 7:58 AM EST 06/18/2023 1:09 PM EST Narrative Resulting Agency Comment Spec In Lab Rolly Cook MD MICROBIOLOGY - GENER AL ORDERABLES [facility] [place] [address] documented in this encounter Visit Diagnoses Diagnosis Irritable bowel syndrome with both constipation and diarrhea documented in this encounter Additional Health Concerns Infection Onset Date Last Indicated Resolved Time Rule Out C. difficile 06/18/2023 06/18/20232023 2:04 PM EST documented as of this encounter Care Teams Director Operating Relationship Specialty Start Date End Date Haylie Steward MD [facility] [address] PCP - General General Internal Medicine 08/04/22 documented as of this encounter
--- OUTSIDE RECORDS SUMMARY | 2024-04-29 01:55 | XMS_ITS | Encounter Summary ---
Author Organization [facility] [place] [address] Care Team Providers Care Chandelier Maker Name Role Phone Haylie Steward MD Primary Care Provider + [phone] Encounter Details Date Type Department Care Team (Late st Contact Info) Description 06/10/2023 Telephone [place] [phone] Dahiana Johnston, RN Social History Tobacco Use Types Packs/Day Years Used Date Smoking Tobacco: Never Smokeless Tobacco: Never Alcohol Use Standard Drinks/Week Comments Not Currently 0 (1 standard drink = 0.6 oz pur e alcohol) [facility] Inpatient Questions Answer Date [...] 06/10/2023 8:16 AM EST Copied from CRM #[id number]. Topic: Specialty Dept CRMs - Orders >> Jun 08, 2023 11:58 AM Rosemarie Rapp wrote: Orders Request Specialist: Relationship (if other than patient-full name): self Type of Request: [x] Send orders Type/Name of Order: Labs If Labs and Imaging list name of specific test(s): 24 hour urine Date of Lab/Imaging/Testing Appt: Thursday morning 06/14/23 Date of Provider Appt: Angelina Heredai MD Appt Type with Provider: FUV Patient Requesting to Have Orders Sent to Facility Outside of [facility]: Yes If Yes, Name of Facility:[facility] Address: [address] [place] [address] Phone #: Fax #: [phone] Orders for 24 hr urine Ca & Creatinine have been faxed to [facility] with OK transmission report. Pt made aware via portal message. documented in this encounter Plan of Treatment Upcoming Encounters Date Type Department Care Team (Latest Contact Info) Description 04/29/2024 3:00 PM EST Scheduled View Only Radiation Oncology at [address] [address] 05/02/2024 3:45 PM EST Scheduled View Only Radiation Oncology at [address] [address] 05/03/2024 1:45 PM EST Scheduled View Only Radiation Oncology at [address] [address] 05/03/2024 2:15 PM EST Office Visit Radiation Oncology at [address] [address] Ofe Fonseca MD [facility] [place] [address] 05/05/2024 8:15 AM EST Scheduled View Only Radiation Oncology at [address] [address] 05/06/2024 12:30 PM EST Scheduled View Only Radiation Oncology at [address] [address] 05/09/2024 12:30 PM EST Scheduled View Only Radiation Oncology at [address] [address] 05/10/2024 2:30 PM EST Scheduled View Only Radiation Oncology at [address] [address] 05/10/2024 3:15 PM EST Office Visit Radiation Oncology at [address] [address] Ofe Fonseca MD [facility] [address] [place] [address] 05/11/2024 2:30 PM EST Scheduled View Only Radiation Oncology at [address] [address] 05/11/2024 3:15 PM EST Scheduled View Only Radiation Oncology at [address] [address] Ofe Fonseca MD [facility] [address] [place] [address] 05/12/2024 2:45 PM EST Scheduled View Only Radiation Oncology at [address] [address] 06/03/2024 3:30 PM EST Appoint[place] [phone] Mira Hutchison APRN [facility] [place] [address] 06/23/2024 4:00 PM EST Appointment Mammography/[place] [phone] Miryam Feliciano MD [facility] [address] [place] [address] 07/12/2024 8:00 AM EDT Laboratory Appointment Lab [address] [place] [address] 07/12/2024 9:30 AM EDT Office Visit Nephrology Hypertension at [place] [phone] Sharmin Jean-Baptiste, [facility] [place] [address] 07/13/2024 10:30 AM EDT Laboratory Appointment Lab at [facility] Hematology Oncology [address] [place], [place] [phone] 07/13/2024 11:30 AM EDT Office Visit Hematology and Oncology at [place] [phone] Salena Alvares, [facility] [place] [address] 07/13/2024 12:45 PM EDT Appointment Hematology and Oncology at [place] [address] documented as of this encounter Visit Diagnoses Not on filedocumented in this encounter Care Teams Chandelier Maker Relationship Specialty Start Date End Date Haylie Steward [place] [address] PCP - General General Internal Medicine 08/04/22 documented as of this encounter
--- OUTSIDE RECORDS SUMMARY | 2024-04-29 01:55 | XMS_ITS | Encounter Summary ---
Author Organization [facility] Address [facility] [place] [address] Care Team Providers Care Sheep Rancher Name Role Phone Haylie Steward MD Primary Care Provider [phone] Encounter Details Date Type Department Care Team (Latest Contact Info) Description 06/11/2023 1:19 PM EST - 06/11/2023 5:34 PM EST Hospital Encounter [place] [address] Jack Page MD [facility] [place] [address] Discharge Disposition: Home Social History Tobacco Use Types Packs/Day Years Used Date Smoking Tobacco: Never Smokeless Tobacco: Never Alcohol Use Standard Drinks/Week Comments Not Currently 0 (1 standard drink = 0.6 oz pur e alcohol) [facility] Inpatient Questions Answer Date Recorded [...] the day after the test, use an xacf-jqx-dbtloyk spray or lozenges to numbyour throat. Warm [...] occurs, please contact your doctor. Please call [phone] before 8pm Mon-Fri with problems, questions, or concerns. If you call after 8pm or on weekends, call the Hospital at [phone] and ask for the Surety Bond Agent digital production artist and the equipment operator intermodal yard will contact that person for you. When should you call for help? Call [phone] anytime you think you may need emergency [...] more? You can view health information on [employer] your personal patient account. Log in or sign up today. Content Version: 12.2 ?? 3007-0861 [employer]. Care instructions adapted under license by [facility]. If you have questions about a medical condition or this instruction, always ask your healthcare professional. [employer] disclaims any warranty or liability for your [...] disease (CKD) N18.31 Hyperparathyroidism E21.3 Anemia D64.9 [place] intoxication, accidental or unintentional, initial encounter T56.891A [...] Scheduled View Only Radiation Oncology at [address] [address] 05/02/2024 3:45 PM EST Scheduled View Only Radiation Oncology at [address] [address] 05/03/2024 1:45 PM EST Scheduled View Only Radiation Oncology at [address] [address] 05/03/2024 2:15 PM EST Office Visit Radiation Oncology at [address] [address] Ofe Fonseca MD [facility] [place] [address] 05/05/2024 8:15 AM EST Scheduled View Only Radiation Oncology at [address] [address] 05/06/2024 12:30 PM EST Scheduled View Only Radiation Oncology at [address] [address] 05/09/2024 12:30 PM EST Scheduled View Only Radiation Oncology at [address] [address] 05/10/2024 2:30 PM EST Scheduled View Only Radiation Oncology at [address] [address] 05/10/2024 3:15 PM EST Office Visit Radiation Oncology at [address] [address] Ofe Fonseca MD [facility] [place] [address] 05/11/2024 2:30 PM EST Scheduled View Only Radiation Oncology at [address] [address] 05/11/2024 3:15 PM EST Scheduled View Only Radiation Oncology at [address] [address] Ofe Fonseca MD [facility] [place] [address] 05/12/2024 2:45 PM EST Scheduled View Only Radiation Oncology at [address] [address] 06/03/2024 3:30 PM EST Appointment Ultrasound at [place] [address] Mira Hutchison, [facility] [address] 06/23/2024 4:00 PM EST Appointment Mammography/DXA at [place] [phone] Miryam Feliciano MD [facility] [place] [address] 07/12/2024 8:00 AM EDT Laboratory Appointment Lab [address] [place] [address] 07/12/2024 9:30 AM EDT Office Visit [place] [address] Sharmin Jean-Baptiste [facility] [place] [address] 07/13/2024 10:30 AM EDT Laboratory Appointment Lab at [facility] Hematology Oncology [address] [place], [place] [phone] 07/13/2024 11:30 AM EDT Office Visit Hematology and Oncology at [place] [phone] Salena Avlares [facility] [place] [address] 07/13/2024 12:45 PM EDT Appointment Hematology and Oncology at [place] [phone] documented as of this encounter Procedures Procedure Name Priority Date/Time Associated Diagnosis Comments SPECIMEN TO PATHOLOGY Routine 06/11/2023 4:05 PM EST SPECIMEN TO PATHOLOGY Routine 06/11/2023 3:51 PM EST SPECIMEN TO PATHOLOGY Routine 06/11/2023 3:51 PM EST SURGICAL PATHOLOGY REPORT Routine 06/11/2023 3:45 PM EST Colonoscopy, Biopsy ([id number]) 06/11/2023 3:27 PM EST Iron deficiency anemia, unspecified iron deficiency anemia type Upper Gi Endoscopy, Biopsy ([id number]) 06/11/2023 3:27 PM EST Iron deficiency anemia, unspecified iron deficiency anemia type UPPER GI ENDOSCOPY Routine 06/11/2023 3: 11 PM EST COLONOSCOPY Routine 06/11/2023 3:10 PM EST documented in this encounter Results * Specimen to Pathology (06/11/2023 4:05 PM EST) AP Specimen 06/11/2023 4:05 PM EST 06/11/2023 4:05 PM EST Narrative [facility] - 06/11/2023 4:05 PM EST Specimen requisition ordered. ??Separate Pathology report to follow Jack Page MD PATHOLOGY/CYTOLOGY O RDERABLES Performing Organization Address [facility] Co de Phone Number [facility] [place] [address] * Specimen to Pathology (06/11/2023 3:51 PM EST) AP Specimen 06/11/2023 3:51 PM EST 06/11/2023 3:51 PM EST Narrative [facility] - 06/11/2023 3:51 PM EST Specimen requisition ordered. ??Separate Pathology report to follow Iggy Bauer MD PATHOLOGY/CYTOLOGY ORDERABLES Performing Organization Address [facility]/ZIP Co de Phone Number [facility] [place] [address] * Specimen to Pathology (06/11/2023 3:51 PM EST) AP Specimen 06/11/2023 3:51 PM EST 06/11/2023 3:51 PM EST Narrative [facility] - 06/11/2023 3:51 PM EST Specimen requisition ordered. ??Separate Pathology report to follow Iggy Bauer MD PATHOLOGY/CYTOLOGY ORDERABLES [facility] [place] [address] * Surgical Pathology Report (06/11/2023 3:45 PM EST) Final Diagnosis [id number] ? Location: 4T; EA06; A The signing [...] Sil Verified: ??06/17/2023 14:46 ??Pathologist Performed at: ??-[facility] Dept. of Pathology, [place] [address] Boiler Service Technician: Eileen Singleton MD, FCAP, ??CLIA Certificate: [id number] SPECIMEN(S) SUBMITTED A - duodenum biopsies. ??R/O [...] labeled C1-C2. ??sdy 06/17/2023 2:46 PM EST [facility] GI Biopsy 06/11/2023 3:45 PM EST 06/11/2023 3:45 PM EST GI Biopsy 06/11/2023 3:45 PM EST 06/11/2023 3:45 PM EST GI Biopsy 06/11/2023 3:45 PM EST 06/11/2023 3:45 PM EST Iggy Bauer MD PATHOLOGY/CYTOLOGY ORDERABLES Performing Organization Address City/State/[facility] Co de Phone Number [facility] [place] [phone] [facility] [place] [place] [address] * UPPER GI ENDOSCOPY (06/11/2023 3:11 PM EST) UPPER GI ENDOSCOPY [facility] Endoscopy Procedure Date: 06/11/2023 3:11 PM ? Patient Name: Nataliya Morfin ? Date of : 1975 ? Age: 48 ? Order #: [id number] ? Instrument Name: [id number]- [id number] ? Procedure: ? Upper GI endoscopy Indications: [...] the ? physician, the nurse, the ? land classifier and the control technician. The ? procedure was verified in [...] care under ? the supervision of a MANAGER OF ADMINISTRATION was ? determined to be medically ? [...] COLONOSCOPY (06/11/2023 3:10 PM EST) COLONOSCOPY [facility] Endoscopy Procedure Date: 06/11/2023 3:10 PM ? Patient Name: Nataliya Morfin ? N: [id number] ? Date of : 1975 ? Age: 48 ? Order #: [id number] ? Instrument Name: [id number]- [id number] ? Procedure: ? Colonoscopy Indications: ? Chronic diarrhea, Iron deficiency ? anemia, prior normal colo 2014 ? (including non-targeted colon ? biopsies) Providers: ? Jack Page MD, Iggy Mason ? Ольга Bauer Becky ? Rolly Bermeo Referring : ?Haylie Steward MD, Lyssa Tolliver ? Rollins Medicines: ? Monitored Anesthesia Care Complications: ? [...] the ? physician, the nurse, the ? land classifier and the control technician. The ? procedure was verified in [...] care under ? the supervision of a MANAGER OF ADMINISTRATION was ? determined to be medically ? [...] preparation was evaluated ? using the BBPS ([place] Bowel ? Preparation Scale) with scores of: [...] CRNA) documented in this encounter Care Teams Sheep Rancher Relationship Specialty Start Date [place] [address] PCP - General General Internal Medicine 08/04/22 documented as of this encounter
--- OUTSIDE RECORDS SUMMARY | 2024-04-29 01:55 | XMS_ITS | Encounter Summary ---
[place] [address] Care Team Providers Care Physical Plant Employee Name Role Phone Haylie Steward MD Primary Care Provider + [phone] Reason for Visit * Diagnostic Test (Routine) - Closed Specialty Diagnoses / Procedures Referred By Contac t Referred To Contact Gastroenterology Diagnoses Dysphagia, unspecified type HREM - dysphagia Procedures High Resolution Esophageal Manometry PRG UNLISTED DIAGNOSTIC GASTROENTEROLOGY PROCEDURE PRG ESOPHAGEAL MOTILITY STUDY PRG GERD TST W NASAL IMPEDENCE ELECTROD Rolly Cook MD [facility] [place] [address] [facility] [place] 4[address] [place] [address] Referral ID Status Reason Start Date Expiration Date V isits Requested Visits Authorized [id number] Closed Test Only 06/15/2023 06/14/2024 1 1 Encounter Details Date Type Department Care Team (Latest Contact Info) Description 06/22/2023 9:00 AM EST Procedure visit [place] [address] Dysphagia, unspecified type Social History Tobacco Use Types Packs/Day Years Used Date Smoking Tobacco: Never Smokeless Tobacco: Never Alcohol Use Standard Drinks/Week Comments Not Currently 0 (1 standard drink = 0.6 oz pur e alcohol) [facility] Inpatient Questions Answer Date Recorded Does Anyone [...] MANOMETRY PROCEDURE NOTE Patient: Nataliya Morfin Address: [address] [address] : 1975 Date of service: 06/22/2023 Indication: [...] relaxation pressure: 0 mmHg (normal <12 mmHg) Bus Trolley And Taxi Instructor swallow: Impressions based on [place] Classification v4.0: No evidence of a clinically significant disorder of peristalsis or EGJ outflow obstruction. *These findings assume that mechanical obstruction has been ruled out. Rolly Cook MD, FRCPC Section of Gastroenterology and Hepatology [facility] [place] [address] V: [phone] F: [phone] CC/EC: [place] [address] documented in this encounter Plan of Treatment Upcoming Encounters Date Type Department Care Team (Latest Contact Info) Description 04/29/2024 3:00 PM EST Scheduled View Only Radiation Oncology at [address] [phone] 05/02/2024 3:45 PM EST Scheduled View Only Radiation Oncology at [address] [address] 05/03/2024 1:45 PM EST Scheduled View Only Radiation Oncology at [address] [address] 05/03/2024 2:15 PM EST Office Visit Radiation Oncology at [address] [address] Ofe Fonseca MD [facility] [place] [address] 05/05/2024 8:15 AM EST Scheduled View Only Radiation Oncology at [address] [address] 05/06/2024 12:30 PM EST Scheduled View Only Radiation Oncology at [address] [address] 05/09/2024 12:30 PM EST Scheduled View Only Radiation Oncology at [address] [address] 05/10/2024 2:30 PM EST Scheduled View Only Radiation Oncology at [address] [address] 05/10/2024 3:15 PM EST Office Visit Radiation Oncology at [address] [address] Ofe Fonseca MD [facility] [place] [address] 05/11/2024 2:30 PM EST Scheduled View Only Radiation Oncology at [address] [address] 05/11/2024 3:15 PM EST Scheduled View Only Radiation Oncology at [address] [address] Ofe Fonseca MD [facility] [place] [address] 05/12/2024 2:45 PM EST Scheduled View Only Radiation Oncology at [address] [phone] 06/03/2024 3:30 PM EST Appointment Ultrasound at [place] [phone] Mira Hutchison [facility] [place] [address] 06/23/2024 4:00 PM EST Appointment Mammography/DXA at [place] [phone] Miryam Feliciano MD [facility] [place] [address] 07/12/2024 8:00 AM EDT Laboratory Appointment Lab [address] [place], [place] [phone] 07/12/2024 9:30 AM EDT Office Visit Nephrology Hypertension at [place] [phone] Sharmin Jean-Baptiste [facility] [place] [address] 07/13/2024 10:30 AM EDT Laboratory Appointment Lab at [facility] Hematology Oncology [address] [place] [phone] 07/13/2024 11:30 AM EDT Office Visit Hematology [place] [address] Salena Alvares [facility] [place] [address] 07/13/2024 12:45 PM EDT Appointment Hematology [place] [address] documented as of this encounter Visit Diagnoses Diagnosis Dysphagia, unspecified type documented in this encounter Care Teams Physical Plant Employee Relationship Specialty Start Date [place] [address] PCP - General General Internal Medicine 08/04/22 documented as of this encounter
--- OUTSIDE RECORDS SUMMARY | 2024-04-29 01:55 | XMS_ITS | Encounter Summary ---
[place] [address] Care Team Providers Care Senior Account Manager Name Role Phone Haylie Steward MD Primary Care Provider [phone] Reason for Referral * Diagnostic Test (Routine) - Closed Specialty Diagnoses / Procedures Referred By Mirlande burroughs Referred To Contact Radiology Diagnoses Irritable bowel syndrome with both constipation and diarrhea Procedures MRI Enterography wwo Contrast Rolly Cook MD [facility] [address] [place] [address] Referral ID Status Reason Start Date Expiration Date V isits Requested Visits Authorized [id number] Closed Specialty Service Requested 06/15/2023 12/13/2024 1 1 * Diagnostic Test (Routine) - Closed Specialty Diagnoses / Procedures Referred By Mirlande burroughs Referred To Contact Gastroenterology Diagnoses Dysphagia, unspecified type HREM - dysphagia Procedures High Resolution Esophageal Manometry PRG UNLISTED DIAGNOSTIC GASTROENTEROLOGY PROCEDURE PRG ESOPHAGEAL MOTILITY STUDY PRG GERD TST W NASAL IMPEDENCE ELECTROD Rolly Cook MD [facility] [place] [address] [facility] [place] [address] [place] [address] Referral ID Status Reason Start Date Expiration Date V isits Requested Visits Authorized [id number] Closed Test Only 06/15/2023 06/14/2024 1 1 Encounter Details Date Type Department Care Team (Latest Contact Info) Description 06/15/2023 3:00 PM EST TH Visit (TeleHealth) [place] [address] oRlly Cook MD [facility] [place] [address] Dysphagia, unspecified type; Irritable bowel syndrome with [...] ANU Pierson RN + ORALIA Armenta, PhD [facility] What are functional bowel [...] what is the impact? 15-20% of general [place] population has IBS or FD or both IBS is the 2nd most common cause for lost work days (after common cold) in [place] IBS is estimated to cost the [place] economy 30 billion dollars per year These [...] with immediate onset of symptoms after infection); technician terminal and repeater symptoms are expected in most patients however [...] - this approach benefits most patients OTC (njbn-zpe-rgbyhaj) medications can be used for ongoing bothersome symptoms as listed below Your doctor (PCP or [facility] Gastroenterology provider or Gastroenterology provider) may decide [...] include All-Bran psyllium buds, Metamucil, bulk psyllium ([employer] stores and [employer] stores) Specifically we recommend starting Metamucil at [...] but convincing medical evidence is still lacking Mxoy-zfv-fxpvooa supplements are not typically evaluated by FDA [...] on IBS Headspace (anxiety/stress/mindfulness) Calm (anxiety/stress/mindfulness) CBT-I success coach (insomnia/sleep problems) Curable (chronic pain) There [...] the likelihood that stressors will cause flares [facility] ABCT.org ContextualScience.org Gut-directed hypnotherapy for IBS is also supported by research - you may find a provider at IBShyosis.Ad [facility] OT Medications for Functional Gut Disorders Diarrhea [...] a stool softener that is safe for technician terminal and repeater usage (no risk of dependency) andthe dosage [...] for misuse/misinterpretation of this information Patient Resources [place] [employer] https://www.gastro.org/practice-guidance/bm-fsbedqz-gydgzy/ topic/gqhmieaga-otbnz-xfikxvej-ibs Badgut.org https://badgut.org/information-centre/v-d-xdwhntavy-topics/ibs/ AboutIBS.org https://www.aboutibs.org/ Uptodate.com https://www.Population Genetics TechnologiesdaWebStudiyo Productions.Ad Summos/contents/rnimduarv-ntbve-rvpfblir-owndrl-alp-ofjirw documented in this encounter Progress Notes * [...] She was seen by Lyssa Euceda with [facility] gastroenterology December 29, 2022 Chronically altered bowel [...] Toe Surgery; Eye surgery; Upper GiEndoscopy, Biopsy (68487) (N/A, 06/11/2023); and Colonoscopy, Biopsy (16075) (N/A, 06/11/2023). Family History: family history includes [...] my review of prior records): Collected: 06/11/23 7493 Result status: Final Resulting lab: PROVATION Value: [facility] Endoscopy Procedure Date: 06/11/2023 3:11 PM Patient Name: Nataliay Morfin Date of : 1975 Age: 48 Order #: [id number] Instrument Name: [id number]- [id number] Procedure: Upper GI endoscopy Indications: Iron deficiency [...] procedure by the physician, the nurse, the drug and alcohol treatment specialist and the maintenance service technician. The procedure was verified in the pre-procedure area in the endoscopy suite. - Pre-procedure physical examination revealed no contraindications to sedation. - ASA Grade Assessment: III - A patient with severe systemic disease. - After reviewing the risks and benefits, the patient was deemed in satisfactory condition to undergo the procedure. - Monitored anesthesia care under the supervision of a TELEMETRY TECH was determined to be medically necessary for [...] Result status: Corrected Resulting lab: PROVATION Value: [facility] Endoscopy Procedure Date: 06/11/2023 3:10 PM Patient Name: Nataliya Morfin Date of : 1975 Age: 48 Order #: [id number] Instrument Name: [id number]- [id number] Procedure: Colonoscopy Indications: Chronic diarrhea, Iron deficiency [...] procedure by the physician, the nurse, the drug and alcohol treatment specialist and the maintenance service technician. The procedure was verified in the pre-procedure area in the endoscopy suite. - Pre-procedure physical examination revealed no contraindications to sedation. - ASA Grade Assessment: III - A patient with severe systemic disease. - After reviewing the risks and benefits, the patient was deemed in satisfactory condition to undergo the procedure. - Monitored anesthesia care under the supervision of a TELEMETRY TECH was determined to be medically necessary for [...] bowel preparation was evaluated using the BBPS ([place] Bowel Preparation Scale) with scores of: Right [...] discussed the collaborative care model of the [facility] GI motility program. The patient should continue [...] testing completed The patient was located in [place] at the time of their visit. TIME SPENT WITH PATIENT Time spent reviewing records prior to this encounter on day of appointment: 5 minutes Time spent during encounter with patient including counselin minutes Time spent documenting encounter after office visit: 5 minutes [place]olly [place] [address] documented in this encounter Plan of Treatment Upcoming Encounters Date Type Department Care Team (Latest Contact Info) Description 04/29/2024 3:00 PM EST Scheduled View Only Radiation Oncology at [address] [address] 05/02/2024 3:45 PM EST Scheduled View Only Radiation Oncology at [address] [address] 05/03/2024 1:45 PM EST Scheduled View Only Radiation Oncology at [address] [address] 05/03/2024 2:15 PM EST Office Visit Radiation Oncology at [address] [address] Ofe Fonseca MD [facility] [place] [address] 05/05/2024 8:15 AM EST Scheduled View Only Radiation Oncology at [address] [address] 05/06/2024 12:30 PM EST Scheduled View Only Radiation Oncology at [address] [address] 05/09/2024 12:30 PM EST Scheduled View Only Radiation Oncology at [address] [address] 05/10/2024 2:30 PM EST Scheduled View Only Radiation Oncology at [address] [address] 05/10/2024 3:15 PM EST Office Visit Radiation Oncology at [address] [address] Ofe Fonseca MD [facility] [place] [address] 05/11/2024 2:30 PM EST Scheduled View Only Radiation Oncology at [address] [address] 05/11/2024 3:15 PM EST Scheduled View Only Radiation Oncology at [address] [address] Ofe Fonseca MD [facility] [place] [address] 05/12/2024 2:45 PM EST Scheduled View Only Radiation Oncology at [address] [address] 06/03/2024 3:30 PM EST [place] [address] Mira Hutchison HYDRAULIC MINER [facility] [place] [address] 06/23/2024 4:00 PM EST Appointment Mammography/DXA at [place] [phone] Miryam Feliciano MD [facility] [place] [address] 07/12/2024 8:00 AM EDT Laboratory Appointment Lab [address] [place] [phone] 07/12/2024 9:30 AM EDT Office Visit Nephrology Hypertension at [place] [phone] Sharmin Jean-Baptiste HYDRAULIC MINER [facility] [place] [address] 07/13/2024 10:30 AM EDT Laboratory Appointment Lab at [facility] Hematology Oncology [address] [place] [phone] 07/13/2024 11:30 AM EDT Office Visit Hematology [place] [address] Salena Alvares APRN [facility] DR MEDICAL ONCOLOGY [place] [phone] 07/13/2024 12:45 PM EDT Appointment Hematology [place] [address] Scheduled Orders Name Type Priority [...] larger compared to ultrasounds from 2022. Consider FILLING STATION LABORER consultation. 3. ??Numerous bilateral renal cysts consistent [...] have questions please contact the health director of primary care that requested your imaging first. ? Narrative [...] slightly larger comparedto ultrasounds from 2022. Consider FILLING STATION LABORER consultation. 3. Numerous bilateral renal cysts consistent [...] who have questions please contactthe health director of primary care that requested your imaging first. Rolly Cook MD [facility] [place] ORDERABLES * Elastase, Stool (06/18/2023 7:58 AM EST) Elastase Stool (QST) 485 mcg/g [facility] Comment: Adult and Pediatric Reference Ranges for ??Pancreatic Elastase-1: ? Normal: ?>200 mcg/g Moderate Pancreatic ?Insufficiency: ?? 100-200 mcg/g ??Severe Pancreatic ?Insufficiency: ?<100 mcg/g Elastase-1 (E-1) assay results are expressed in mcg/g, which represent mcg E1/g feces. It is not necessary to interrupt enzyme substitution therapy. Test performed by [employer] [facility] ?[id number], ?[place] [address] ? Public Relations Studies Director: Annemarie Coon MD,PHD,DEANN Test Reported by Ludivina Montero, [employer] [facility], [address] [place], [place] Arnulfo Sarah M.D., Ph.D., Director of Laboratories , [facility] [id number] Stool 06/18/2023 7:58 AM EST 06/18/2023 2:33 PM EST Narrative Resulting Agency Comment Spec In Lab Rolly Cook MD LAB SEND OUT ORDERAB LES Performing Organization Address City/[facility]/ZIP Co de Phone Number [facility] [place] [address] * Giardia/Cryptosporidium Antigens ([facility]/CGP/APD/NLH) (06/18/2023 7:58 AM EST) Giardia Antigen Negative Negative [facility] Comment:Examination for othe r intestinal parasites requires foreign travel history. Cryptosporidium Antigen Negative Negative [facility] Stool 06/18/2023 7:58 AM EST 06/18/2023 1:09 PM EST Narrative Resulting Agency Comment Spec In Lab Rolly Cook MD MICROBIOLOGY - GENER AL ORDERABLES Performing Organization Address [facility] Co de Phone Number [facility] [place] [address] documented in this encounter Visit Diagnoses Diagnosis Dysphagia, unspecified type Irritable bowel syndrome with both constipation and diarrhea Irritable bowel syndrome with both constipation and diarrhea documented in this encounter Care Teams Senior Account Manager Relationship Specialty Start Date End Date Haylie Steward MD [facility] [place] [address] PCP - General General Internal Medicine 08/04/22 documented as of this encounter
--- OUTSIDE RECORDS SUMMARY | 2024-04-29 01:55 | XMS_ITS | Encounter Summary ---
Author Organization [facility] [place] [address] Care Team Providers Care Paper Making Machine Operator Name Role Phone Haylie Steward MD Primary Care Provider [phone] Encounter Details Date Type Department Care Team [...] Scheduled View Only Radiation Oncology at [address] [address] 05/02/2024 3:45 PM EST Scheduled View Only Radiation Oncology at [address] [address] 05/03/2024 1:45 PM EST Scheduled View Only Radiation Oncology at [address] [address] 05/03/2024 2:15 PM EST Office Visit Radiation Oncology at [address] [address] Ofe Fonseca MD [facility] [place] [address] 05/05/2024 8:15 AM EST Scheduled View Only Radiation Oncology at [address] [address] 05/06/2024 12:30 PM EST Scheduled View Only Radiation Oncology at [address] [address] 05/09/2024 12:30 PM EST Scheduled View Only Radiation Oncology at [address] [address] 05/10/2024 2:30 PM EST Scheduled View Only Radiation Oncology at [address] [address] 05/10/2024 3:15 PM EST Office Visit Radiation Oncology at [address] [address] Ofe Fonseca MD [facility] [place] [address] 05/11/2024 2:30 PM EST Scheduled View Only Radiation Oncology at [address] [address] 05/11/2024 3:15 PM EST Scheduled View Only Radiation Oncology at [address] [address] Ofe Fonseca MD [facility] [place] [address] 05/12/2024 2:45 PM EST Scheduled View Only Radiation Oncology at [address] [address] 06/03/2024 3:30 PM EST Appointment Ultrasound at [place] [phone] Mira Hutchison [facility] [place] [address] 06/23/2024 4:00 PM EST Appointment Mammography/DXA at [place] [phone] Miryam Feliciano MD [facility] [place] [address] 07/12/2024 8:00 AM EDT Laboratory Appointment Lab [address] [place], [place] [phone] 07/12/2024 9:30 AM EDT Office Visit Nephrology Hypertension at [place] [phone] Sharmin Jean-Baptiste, [facility] [place] [address] 07/13/2024 10:30 AM EDT Laboratory Appointment Lab at [facility] Hematology Oncology [address] [place] [phone] 07/13/2024 11:30 AM EDT Office Visit Hematology [place] [address] Salena Alvares [facility] [place] [address] 07/13/2024 12:45 PM EDT Appointment Hematology [place] [address] documented as of this encounter Visit Diagnoses Not on filedocumented in this encounter Care Teams Paper Making Machine Operator Relationship Specialty Start Date End Date Haylie Steward MD [facility] [place] [address] PCP - General General Internal Medicine 08/04/22 documented as of this encounter
--- OUTSIDE RECORDS SUMMARY | 2024-04-29 01:56 | XMS_ITS | Encounter Summary ---
[place] [address] Care Team Providers Care Certified Nurse Operating Room Name Role Phone Haylie Steward MD Primary Care Provider [phone] Reason for Visit * Consultation (Routine) - Closed Specialty Diagnoses / Procedures Referred By Contac t Referred To Contact Endocrinology Diagnoses Disorder of parathyroid gland, unspecified [place] [address] [place] [address] [facility] [address] [place] [address] Referral ID Status Reason Start Date Expiration Date Visits Re quested Visits Authorized [id number] Closed 02/05/2023 02/05/2024 1 1 Encounter Details Date Type Department Care Team (Late st Contact Info) Description 02/12/2023 9:00 AM EDT Office Visit [place] [phone] Victoriano Heredia MD [facility] [place] [address] Primary hyperparathyroidism; Hypercalcemia Social History Tobacco Use Types Packs/Day Years Used Date Smoking Tobacco: Never Smokeless Tobacco: Never Alcohol Use Standard Drinks/Week Comments Not Currently 0 (1 standard drink = 0.6 oz pur e alcohol) [facility] Inpatient Questions Answer Date [...] from the original note were not included. [facility] Endocrinology Clinic New Patient Chief complaint: hyperparathyroidism History: Edyta Morfin is a 47 y.o. female with significant PMH of bipolar disorder diagnosed in 2003, CKD3, OCD, here for evaluation of hyperparathyroidism. She was on Scofield starting from 2003 until September 2022. Diagnosed: [...] Data is abnormally high Dawn Sanchez MD [phone] 205410/01/2022 Narrative & Impression Renal (Signed Final 10/01/2022 07:53 pm) PATIENT INFO: ID #: [id number] : [id number] (47 yrs)(F) Name: EDYTA MORFIN Visit Date: 10/01/2022 02:08 pm PERFORMED BY: Attending: Dawn Sanchez MD Resident: Jayne NÚÑEZ, [facility] Performed By: Monster Bhatia RDMS Referred By: SHAKA EPPS Location: [place] SERVICE(S) PROVIDED: URETRO - Retroperitoneal Complete - [id number] INDICATIONS: long-standing lithium use and CKD, requested [...] PM Electronically signed by: Dawn Sanchez MD, [facility] ([phone]), at 10/01/2022 7:46 PM Assessment and Plan: 47 year old woman with mild intermittent hypercalcemia and hyperparathyroidism Hypercalcemia/hyperparathyroidism: May be caused by nursing home use of lithium. Scofield is known to be associated with hyperparathyroidism, [...] hesitate to contact me. Victoriano Heredia MD Radiology Special Procedure Techaccounting manager Endocrinology Section [facility] documented in this encounter Plan of Treatment Upcoming Encounters Date Type Department Care Team (Latest Contact Info) Description 04/29/2024 3:00 PM EST Scheduled View Only Radiation Oncology at [address] [address] 05/02/2024 3:45 PM EST Scheduled View Only Radiation Oncology at [address] [address] 05/03/2024 1:45 PM EST Scheduled View Only Radiation Oncology at [address] [address] 05/03/2024 2:15 PM EST Office Visit Radiation Oncology at [address] [address] Ofe Fonseca MD [facility] [place] [address] 05/05/2024 8:15 AM EST Scheduled View Only Radiation Oncology at [address] [address] 05/06/2024 12:30 PM EST Scheduled View Only Radiation Oncology at [address] [address] 05/09/2024 12:30 PM EST Scheduled View Only Radiation Oncology at [address] [address] 05/10/2024 2:30 PM EST Scheduled View Only Radiation Oncology at [address] [address] 05/10/2024 3:15 PM EST Office Visit Radiation Oncology at [address] [phone] Ofe Fonseca MD [facility] [place] [address] 05/11/2024 2:30 PM EST Scheduled View Only Radiation Oncology at [address] [address] 05/11/2024 3:15 PM EST Scheduled View Only Radiation Oncology at [address] [phone] Ofe Fonseca MD [facility] [place] [address] 05/12/2024 2:45 PM EST Scheduled View Only Radiation Oncology at [address] [phone] 06/03/2024 3:30 PM EST Appointment Ultrasound at [place] [phone] Mira Hutchison PRODUCT SAFETY COMPLIANCE LEADER [facility] [place] [address] 06/23/2024 4:00 PM EST Appointment Mammography/DXA at [place] [phone] Miryam Feliciano MD [facility] [place] [address] 07/12/2024 8:00 AM EDT Laboratory Appointment Lab [address] [phone] 07/12/2024 9:30 AM EDT Office Visit Nephrology Hypertension at [place] [phone] Sharmin Jean-Baptiste APRN [facility] [place] [address] 07/13/2024 10:30 AM EDT Laboratory Appointment Lab at [facility] Hematology Oncology [address] [place] [phone] 07/13/2024 11:30 AM EDT Office Visit Hematology [place] [address] Salena Alvares APRN [facility] DR MEDICAL ONCOLOGY [place] [phone] 07/13/2024 12:45 PM EDT Appointment Hematology [place] [phone] documented as of this encounter [...] BMD measurements and plots are available in ESimphatic under the imaging tab. Paper copies will be sent to providers without [employer] access. If you have received this report without the data sheet and do not have access to ESimphatic, please contact Radiology Guest Relations Receptionist at [phone] Thursday thru Thursday 8am-4pm. ? Bone Density Report ? Name: ?Edyta Morfin Age: ? 47 Sex: ? Female Ethnicity: ? White Date of : 1975 Referring Provider: VICTORIANO HEREDIA Study: Bone densitometry was performed. Model: Joome (S/N 442063T) [employer] version 13.6.1.3 Exam Date: February 18, 2023 Accession number: [id number] Bone Density: Region ? BMD ?T-score ??Z-score [...] who have questions please contact the health respite care provider that requested your imaging first. ? Electronically signed by: Brandee Nguyen MD, [facility] ([phone]), at 02/19/2023 9:33 AM Narrative 02/19/2023 9:33 AM EDT EXAMINATION: DXA CENTRAL SPINE, HIP, AND/OR WHOLE BODY (GENERIC) CLINICAL HISTORY: 47 years Female hyperparathyroidism, evaluate for osteoporosis - please image forearm as well (as entered by ordering provider in the order requisition) TECHNIQUE: Scans were acquired at the lumbar spine, distal left forearm and left hip using the HoloTaptera Horizon A system. COMPARISON: None FINDINGS: Femoral [...] distal left forearmand left hip using the HoloTaptera Horizon A system. COMPARISON: None FINDINGS: Femoral [...] copies will be sent to providers without [employer] access.If you have received this report without the data sheet and do not haveaccess to ESimph[employer], please contact Radiology Guest Relations Receptionist at [phone] Thursday thrrid 8am-4pm. Bone Density Report Name: Edyta Morfin Age: 47 Sex: Female Ethnicity: White Date of : 1975 Referring Provider: VICTORIANO HEREDIA Study: Bone densitometry was performed. Model: Joome (S/N 504119F) [employer] version 13.6.1.3 Exam Date: February 18, 2023 Accession number: [id number] Bone Density: Region BMD T-score Z-score AP [...] patients who have questions please contactthe health respite care provider that requested your imaging first. Electronically signed by: Brandee Nguyen MD, [facility]([phone]), at 02/19/2023 9:33 AM Victoriano Heredia MD IMG DEXA ORDERABLES documented in this encounter Visit Diagnoses Diagnosis Primary hyperparathyroidism Hypercalcemia Primary hyperparathyroidism documented in this encounter Care Teams Certified Nurse Operating Room Relationship Specialty Start Date End Date Haylie Steward MD [place] [address] PCP - General General Internal Medicine 08/04/22 documented as of this encounter
--- OUTSIDE RECORDS SUMMARY | 2024-04-29 01:56 | XMS_ITS | Encounter Summary ---
[facility] Organization [facility] [place] [address] Care Team Providers Care Cad Programmer Name Role Phone Haylie Steward MD Primary Care Provider + [phone] Encounter Details Date Type Department Care Team (Latest Contact Info) Description 03/18/2023 2:40 PM EST - 03/18/2023 11:59 PM [facility] [place] [address] Ronaldo Andrews APRN [facility] [place] [address] Abnormal uterine bleeding (AUB); Perimenopausal Discharge Disposition: Home Social History Tobacco Use Types Packs/Day Years Used Date Smoking Tobacco: Never Smokeless Tobacco: Never Alcohol Use Standard Drinks/Week Comments Not Currently 0 (1 standard drink = 0.6 oz pur e alcohol) [facility] Inpatient Questions Answer Date Recorded Does Anyone [...] Scheduled View Only Radiation Oncology at [address] [address] 05/02/2024 3:45 PM EST Scheduled View Only Radiation Oncology at [address] [address] 05/03/2024 1:45 PM EST Scheduled View Only Radiation Oncology at [address] [address] 05/03/2024 2:15 PM EST Office Visit Radiation Oncology at [address] [address] Ofe Fonseca MD [facility] [place] [address] 05/05/2024 8:15 AM EST Scheduled View Only Radiation Oncology at [address] [address] 05/06/2024 12:30 PM EST Scheduled View Only Radiation Oncology at [address] [address] 05/09/2024 12:30 PM EST Scheduled View Only Radiation Oncology at [address] [address] 05/10/2024 2:30 PM EST Scheduled View Only Radiation Oncology at [address] [phone] 05/10/2024 3:15 PM EST Office Visit Radiation Oncology at [address] [address] Ofe Fonseca MD [facility] [place] [address] 05/11/2024 2:30 PM EST Scheduled View Only Radiation Oncology at [address] [address] 05/11/2024 3:15 PM EST Scheduled View Only Radiation Oncology at [address] [address] Ofe Fonseca MD [facility] [place] [address] 05/12/2024 2:45 PM EST Scheduled View Only Radiation Oncology at [address] [address] 06/03/2024 3:30 PM EST [place] [address] Mira Hutchison APRN [facility] [place] [address] 06/23/2024 4:00 PM EST Appointment Mammography/[place] [phone] Miryam Feliciano MD [facility] [place] [address] 07/12/2024 8:00 AM EDT Laboratory Appointment Lab [address] [phone] 07/12/2024 9:30 AM EDT Office Visit [place] [phone] Sharmin Jean-Baptiste, [facility] [place] [address] 07/13/2024 10:30 AM EDT Laboratory Appointment Lab at [facility] On[facility] [address] [place] [phone] 07/13/2024 11:30 AM EDT Office Visit [place] [phone] Salena Alvares, [facility] [place] [address] 07/13/2024 12:45 PM EDT Appointment Hematology [place] [phone] documented as of this encounter Procedures Procedure [...] Dawn Sanchez MD at 03/18/2023 5:36 PM Electronically signed by: Dawn Sanchez MD, [facility] ([phone]), at 03/18/2023 5:36 PM Thank you for letting us participate in the care of this patient. If you are a health care provider and have any questions regarding this report, please contact the number above. For patients who have questions, please contact the health medicare sales executive that requested your imaging first. ? Dawn Sanchez, E Business Taxes Specialist Electronically Signed Final Report ?? 03/18/2023 05:43 pm Narrative 03/18/2023 5:43 PM EST Gynecological Report ?(Signed Final 03/18/2023 05:43 pm) PATIENT INFO: ID #: ? [id number] ?: ??[birth year] (48 yrs)(F) Name: ? EDYTA MORFIN ? Visit Date: 03/18/2023 03:10 pm PERFORMED BY: Attending: ?Laura NÚÑEZ, Dawn Wiseman Resident: ? Kalpesh NÚÑEZ, Saw Performed By: ? Betzy Miranda RDMS Referred By: ?RONALDO ANDREWS Location: ? [place] SERVICE(S) PROVIDED: UPEL - Pelvis Complete - [id number] ?[id number] INDICATIONS: NEEDS FEMALE TECH. AUB - likely [...] 03/18/2023 05:43 pm) PATIENT INFO: ID #: [id number] : [birth year] (48 yrs)(F) Name: EDYTA MORFIN Visit Date: 03/18/2023 03:10 pm PERFORMED BY: Attending: Dawn Sanchez MD Resident: Saw Posey MD Performed By: Betzy Miranda RDMS Referred By: RONALDO ANDREWS Location: [place] SERVICE(S) PROVIDED: UPEL - Pelvis Complete - [id number] INDICATIONS: NEEDS FEMALE TECH. AUB - likely [...] Dawn Sanchez MD at 03/18/2023 5:36 PM Electronically signed by: Dawn Sanchez MD, [facility] ([phone]), at 03/18/2023 5:36 PM Thank you for letting us participate in the care of this patient. If you are a health care provider and have any questions regarding this report, please contact the number above. For patients who have questions, please contact the health medicare sales executive that requested your imaging first. Dawn Sanchez, E Business Taxes Specialist Electronically Signed Final Report 03/18/2023 05:43 pm Ronaldo Andrews APRN IMG US PELVIC ORDERABLES documented in this encounter Visit Diagnoses Diagnosis Abnormal uterine bleeding (AUB) Perimenopausal Symptomatic menopausal or female climacteric states documented in this encounter Care Teams Cad Programmer Relationship Specialty Start Date [place] [address] PCP - General General Internal Medicine 08/04/22 documented as of this encounter
--- OUTSIDE RECORDS SUMMARY | 2024-04-29 01:56 | XMS_ITS | Encounter Summary ---
[place] [address] Care Team Providers Care Web Content Developer Name Role Phone Haylie Steward MD Primary Care Provider + [phone] Reason for Visit * Consultation (Routine) - Closed Specialty Diagnoses / Procedures Referred By Contcele t Referred To Contact Obstetrics and Gynecology Diagnoses Menometrorrhagia Haylie [place] [address] [place] [address] [facility] [employer] Python Developer [address] [place] [address] Referral ID Status Reason Start Date Expiration Date V isits Requested Visits Authorized [id number] Closed Consult, Test & Treat PCP Updated and/or Approved 01/07/2023 01/07/2024 12 12 Encounter Details Date Type Department Care Team (Latest Contact Info) Description 02/25/2023 1:00 PM EDT TH Visit (TeleHealth) Obstetrics [place] [phone] Claudia Andrews APRN [facility] OBSTETRICS [place] [address] Abnormal uterine bleeding (AUB); Perimenopausal [...] of patient- TeleVisit is taking place in MD__ ME__[place]__X MA__ If not on myD, working on signing up for my Confirmed has completed any pre-visit questionnaires If has not received required previsit questionnaires, send via [facility] _X__Reviewed medications, allergies, pharmacy, pain/depression, education _X__Documented height/weight/LMP Other information or concerns: SERVANDO Scales * Claudia Andrews APRN - 02/25/2023 1:00 PM EDT Division of Obstetrics and Gynecology [facility] ELECTRICIAN CONSTRUCTOR SUPERVISOR TeleHealth Encounter I provided care to the [...] Patient Active Problem List Diagnosis Date Noted Boron intoxication, accidental or unintentional, initial encounter 09/06/2022 [...] Patient states it affects her bipolar medication Boron. ROS: See HPI, all others negative. Objective: [...] Scheduled View Only Radiation Oncology at [address] [address] 05/02/2024 3:45 PM EST Scheduled View Only Radiation Oncology at [address] [phone] 05/03/2024 1:45 PM EST Scheduled View Only Radiation Oncology at [address] [address] 05/03/2024 2:15 PM EST Office Visit Radiation Oncology at [address] [address] Ofe Fonseca MD [facility] [place] [address] 05/05/2024 8:15 AM EST Scheduled View Only Radiation Oncology at [address] [address] 05/06/2024 12:30 PM EST Scheduled View Only Radiation Oncology at [address] [address] 05/09/2024 12:30 PM EST Scheduled View Only Radiation Oncology at [address] [address] 05/10/2024 2:30 PM EST Scheduled View Only Radiation Oncology at [address] [address] 05/10/2024 3:15 PM EST Office Visit Radiation Oncology at [address] [address] Ofe Fonseca MD [facility] RADIATION [place] [address] 05/11/2024 2:30 PM EST Scheduled View Only Radiation Oncology at [address] [address] 05/11/2024 3:15 PM EST Scheduled View Only Radiation Oncology at [address] [address] Ofe Fonseca MD [facility] [place] [address] 05/12/2024 2:45 PM EST Scheduled View Only Radiation Oncology at [address] [address] 06/03/2024 3:30 PM EST Appointment Ultrasound at [place] [phone] Mira Hutchison [facility] [place] [address] 06/23/2024 4:00 PM EST Appointment Mammography/DXA at [place] [phone] Miryam Feliciano MD [facility] [place] [address] 07/12/2024 8:00 AM EDT Laboratory Appointment Lab [address] [place], [place] [phone] 07/12/2024 9:30 AM EDT Office Visit Nephrology Hypertension at [place] [phone] Sharmin Jean-Baptiste [facility] [place] [address] 07/13/2024 10:30 AM EDT Laboratory Appointment Lab at [facility] Hematology Oncology [address] [place] [phone] 07/13/2024 11:30 AM EDT Office Visit Hematology [place] [phone] Salena Alvares [facility] [place] [address] 07/13/2024 12:45 PM EDT Appointment Hematology [place] [address] documented as of this encounter Visit Diagnoses Diagnosis Abnormal uterine bleeding (AUB) Perimenopausal Symptomatic menopausal or female climacteric states documented in this encounter Care Teams Web Content Developer Relationship Specialty Start Date [place] [address] PCP - General General Internal Medicine 08/04/22 documented as of this encounter
--- OUTSIDE RECORDS SUMMARY | 2024-04-29 01:56 | XMS_ITS | Encounter Summary ---
[place] [address] Care Team Providers Care Necktie Turner Name Role Phone Haylie Steward MD Primary Care Provider [phone] Encounter Details Date Type Department Care Team (Latest Contact Info) Description 04/23/2023 9:00 AM EST Laboratory Appointment Lab [address] [place] [phone] Stage 3b chronic kidney disease (CKD) Social [...] Scheduled View Only Radiation Oncology at [address] [address] 05/02/2024 3:45 PM EST Scheduled View Only Radiation Oncology at [address] [address] 05/03/2024 1:45 PM EST Scheduled View Only Radiation Oncology at [address] [address] 05/03/2024 2:15 PM EST Office Visit Radiation Oncology at [address] [address] Ofe Fonseca MD [facility] [place] [address] 05/05/2024 8:15 AM EST Scheduled View Only Radiation Oncology at [address] [address] 05/06/2024 12:30 PM EST Scheduled View Only Radiation Oncology at [address] [address] 05/09/2024 12:30 PM EST Scheduled View Only Radiation Oncology at [address] [address] 05/10/2024 2:30 PM EST Scheduled View Only Radiation Oncology at [address] [address] 05/10/2024 3:15 PM EST Office Visit Radiation Oncology at [address] [address] Ofe Fonseca MD [facility] [place] [address] 05/11/2024 2:30 PM EST Scheduled View Only Radiation Oncology at [address] [address] 05/11/2024 3:15 PM EST Scheduled View Only Radiation Oncology at [address] [address] Ofe Fonseca MD [facility] [place] [address] 05/12/2024 2:45 PM EST Scheduled View Only Radiation Oncology at [address] [address] 06/03/2024 3:30 PM EST Appointment Ultrasound at [place] [phone] Mira Hutchison SWIMMING POOL ATTENDANT [facility] [place] [address] 06/23/2024 4:00 PM EST Appointment Mammography/DXA at [place] [phone] Miryam Feliciano MD [facility] [place] [address] 07/12/2024 8:00 AM EDT Laboratory Appointment Lab [address] [place], [place] [phone] 07/12/2024 9:30 AM EDT Office Visit Nephrology Hypertension at [place] [phone] Shamrin Jean-Baptiste [facility] [place] [address] 07/13/2024 10:30 AM EDT Laboratory Appointment Lab at [facility] Hematology Oncology [address] [place], [place] [phone] 07/13/2024 11:30 AM EDT Office Visit Hematology [place] [phone] Salena Alvares [facility] [place] [address] 07/13/2024 12:45 PM EDT Appointment Hematology [place] [address] documented as of this encounter Procedures Procedure [...] EST) Glucose, Urine Dipstick Negative Negative mg/dL [facility] Protein, Urine Dipstick Negative Negative mg/dL [facility] Bilirubin, Urine Dipstick Negative Negative mg/dL [facility] Comment: Clinical correlation required for positive Urine Bilirubin results as false positive may occur with some drugs and drug related products. If a false positive is suspected a serum total bilirubin should be considered if clinically indicated. Urobilinogen, Urine Dipstick Normal Normal mg/dL [facility] pH, Urn (dipstick) 6.5 5.0 - 8.0 [facility] Blood, Urine Dipstick Trace(A) Negative mg/dL [facility] Ketone, Urine Dipstick Negative Negative mg/dL [facility] Nitrite, Urine Dipstick Negative Negative [facility] Leukocytes, Urine Dipstick Negative Negative mcL [facility] Appearance, Urine Dipstick Clear Clear [facility] Specific [place] Urine Automated 1.005 1.005 - 1.030 [facility] Color, Urine Dipstick Yellow Yellow [facility] RBC, Urine 0 0 - 4 /HPF [facility] WBC, Urine 0 0 - 5 /HPF [facility] Squamous Epithelial Cells Raw Data, Urine 1 <=4 /HPF [facility] Urine 04/23/2023 9:26 AM EST 04/23/2023 9:32 AM EST Narrative Resulting Agency Comment Spec In Lab Sharmin L Estiven SWIMMING POOL ATTENDANT URINE ORDERABLES Performing Organization Address City/[facility] Co de Phone Number [facility] [place] [address] * Protein/Creatinine Ratio, urine (04/23/2023 9:26 AM EST) Creatinine, Urine 12 mg/dL [facility] Protein, Urine <6 0 - 12 mg/dL [facility] Protein / Creatinine Ratio, Urine <0.5 ratio [facility] Urine 04/23/2023 9:26 AM EST 04/23/2023 9:32 AM EST Narrative Resulting Agency Comment Spec In Lab Sharmin L Estiven SWIMMING POOL ATTENDANT URINE ORDERABLES Performing Organization Address City/[facility]/[place] [address] * Differential, Automated (04/23/2023 8:52 AM EST) Pathologist [facility] Neutrophil % 58.7 % [facility] Neutrophil Absolute 3.06 1.70 - 6.10 x10(3)/[facility] Lymph % 28.7 % [facility] Lymphocytes Abs 1.5 0.9 - 3.2 x10(3)/[facility] Monocyte % 8.1 % [facility] Monocyte Abs 0.4 0.3 - 0.9 x10(3)/[facility] Eos % 3.7 % [facility] Eosinophils Abs 0.2 0.0 - 0.4 x10(3)/[facility] Basophil % 0.6 % [facility] Baso Absolute 0.0 0.0 - 0.1 x10(3)/[facility] Immature Gran % 0.20 % [facility] Comment: Immature granulocytes(IG's)percentage and absolute count will include metamyelocytes, myelocytes, and promyelocytes. Blood smears from CBCs yielding IG's will be scanned manually for concordance. If this scan disagrees with the automated IG or if promyelocytes are noted, a manual differential will be performed. Immature Gran Absolute 0.01 0.00 - 0.04 x10(3)/[facility] Blood 04/23/2023 8:52 AM EST 04/23/2023 9:00 AM EST Narrative Resulting Agency Comment Spec In Lab Sharmin Jean-Baptiste SWIMMING POOL ATTENDANT [place] [address] * (ABNORMAL) Hemogram (04/23/2023 8:52 AM EST) [facility] White Blood Cell 5.2 4.0 - 9.5 x10(3)/[facility] LAB[facility]ATORY Red Blood Cell 4.63 4.00 - 5.21 x10(6)/[facility] Hemoglobin 13.8 11.7 - 15.5 g/dL [facility] Hematocrit 43.8 35.7 - 45.8 % [facility] Mean Cell Volume 94.6(H) 82.6 - 94.4 fL [facility] Mean Cell Hemoglobin 29.8 27.1 - 32.0 pg [facility] Mean Cell Hemoglobin Concentration 31.5(L) 31.7 - 35.0 g/dL [facility] Platelet 249 145 - 357 x10(3)/mc L [facility] RDW Standard Deviation 48.6(H) 37.0 - 46.0 fL [facility] RDW coefficient of variation 13.8 11.5 - 14.1 % [facility] Mean Platelet Volume 9.2 7.6 - 12.9 fL [facility] NRBC% auto 0.0 % [facility] NRBC Absolute 0.000 0.000 - 0.000 x10(3)/mc L [facility] Blood 04/23/2023 8:52 AM EST 04/23/2023 9:00 AM EST Narrative Resulting Agency Comment Spec In Lab Sharmin L Estiven SWIMMING POOL ATTENDANT HEMATOLOGY ORDERA BLES [facility] [place] [address] * Albumin Level (04/23/2023 8:52 AM EST) Albumin 4.3 3.2 - 5.2 g/dL [facility] Blood 04/23/2023 8:52 AM EST 04/23/2023 9:00 AM EST Narrative Resulting Agency Comment Spec In Lab Sharmin L Estiven SWIMMING POOL ATTENDANT CHEMISTRY ORDERAB LES [facility] [place] [address] * (ABNORMAL) Basic Metabolic Panel (non-fasting) (04/23/2023 8:52 AM EST) Glucose 77 65 - 199 mg/dL [facility] Comment:Diabetes: >=200 mg/d L plus symptoms Blood Urea Nitrogen 26(H) 8 - 18 mg/dL [facility] Creatinine 1.17 0.70 - 1.20 mg/dL [facility] Sodium 142 135 - 145 mmol/L [facility] Potassium 4.5 3.5 - 5.0 mmol/L [facility] Comment: Please note: ??Patients with WBC >100,000 may have falsely elevated Potassium levels. ??For accurate Potassium quantification in these patients send serum separator tube (gold top) for subsequent determinations. ??Contact the Clinical Chemistry Laboratory if there are any questions. Chloride 108(H) 98 - 107 mmol/L [facility] Carbon Dioxide 26 22 - 31 mmol/L [facility] Anion Gap 8 5 - 15 mmol/L [facility] Calcium 10.1 8.5 - 10.5 mg/dL [facility] Est Glomerular Filtration Rate 57(L) >=60 mL/min/1. 73 m?? [facility] Comment: This patient's estimated GFR was [...] Agency Comment Spec In Lab Sharmin Jean-Baptiste SWIMMING POOL ATTENDANT CHEMISTRY ORDERAB LES [facility] [place] [address] * Ferritin (04/23/2023 8:52 AM EST) Ferritin 18 6 - 175 ng/mL [facility] Comment: Please note that as of 04/08/2023, the reference intervals for Ferritin have been updated. Blood 04/23/2023 8:52 AM EST 04/23/2023 9:00 AM EST Narrative Resulting Agency Comment Spec In Lab Sharmin L Estiven SWIMMING POOL ATTENDANT CHEMISTRY ORDERAB LES Performing Organization Address City/[facility]/ZIP Co de Phone Number [facility] [place] [address] * (ABNORMAL) Iron and TIBC (04/23/2023 8:52 AM EST) Iron 71 30 - 150 mcg/dL [facility] TIBC 397 250 - 450 mcg/dL [facility] Iron Saturation 18(L) 20 - 50 % [facility] Blood 04/23/2023 8:52 AM EST 04/23/2023 9:00 AM EST Narrative Resulting Agency Comment Spec In Lab Sharmin L Estiven SWIMMING POOL ATTENDANT CHEMISTRY ORDERAB LES Performing Organization Address [facility] Co de Phone Number [facility] [place] [address] * Phosphorus (04/23/2023 8:52 AM EST) Phosphorus 2.9 2.5 - 4.5 mg/dL [facility] Blood 04/23/2023 8:52 AM EST 04/23/2023 9:00 AM EST Narrative Resulting Agency Comment Spec In Lab Sharmin L Estiven SWIMMING POOL ATTENDANT CHEMISTRY ORDERAB LES Performing Organization Address City/[facility] Co de Phone Number [facility] [address] * (ABNORMAL) PTH (04/23/2023 8:52 AM EST) Parathyroid Hormone 94(H) 15 - 65 pg/mL [facility] Blood 04/23/2023 8:52 AM EST 04/23/2023 9:00 AM EST Narrative Resulting Agency Comment Spec In Lab Sharmin L Estiven SWIMMING POOL ATTENDANT CHEMISTRY ORDERAB LES Performing Organization Address City/[facility]/ZIP Co de Phone Number [facility] [place] [address] * Vitamin D, 25-Hydroxy (04/23/2023 8:52 AM EST) Vitamin D Total 25 OH 31 21 - 100 ng/mL [facility] Vit D Interp Sufficient [facility] Blood 04/23/2023 8:52 AM EST 04/23/2023 9:00 AM EST Narrative Resulting Agency Comment Spec In Lab Sharmin Jean-Baptiste SWIMMING POOL ATTENDANT CHEMISTRY ORDERAB LES Performing Organization Address City/State/[facility] Co de Phone Number [facility] [address] documented in this encounter Visit Diagnoses Diagnosis Stage 3b chronic kidney disease (CKD) documented in this encounter Care Teams Necktie Turner Relationship Specialty Start Date End Date Haylie Steward MD [facility] [place] [address] PCP - General General Internal Medicine 08/04/22 documented as of this encounter
--- OUTSIDE RECORDS SUMMARY | 2024-04-29 01:56 | XMS_ITS | Encounter Summary ---
Author Organization [facility] [place] [address] Care Team Providers Care Entertainment Reporter Name Role Phone Haylie Steward MD Primary Care Provider [phone] Encounter Details Date Type Department Care Team (Late st Contact Info) Description 03/18/2023 Telephone Obstetrics [place] [phone] Apoorva Gruber Social History Tobacco Use Types [...] Scheduled View Only Radiation Oncology at [address] [address] 05/02/2024 3:45 PM EST Scheduled View Only Radiation Oncology at [address] [phone] 05/03/2024 1:45 PM EST Scheduled View Only Radiation Oncology at [address] [phone] 05/03/2024 2:15 PM EST Office Visit Radiation Oncology at [address] [address] Ofe Fonseca MD [facility] [place] [address] 05/05/2024 8:15 AM EST Scheduled View Only Radiation Oncology at [address] [phone] 05/06/2024 12:30 PM EST Scheduled View Only Radiation Oncology at [address] [phone] 05/09/2024 12:30 PM EST Scheduled View Only Radiation Oncology at [address] [address] 05/10/2024 2:30 PM EST Scheduled View Only Radiation Oncology at [address] [address] 05/10/2024 3:15 PM EST Office Visit Radiation Oncology at [address] [address] Ofe Fonseca MD [facility] [place] [address] 05/11/2024 2:30 PM EST Scheduled View Only Radiation Oncology at [address] [address] 05/11/2024 3:15 PM EST Scheduled View Only Radiation Oncology at [address] [address] Ofe Fonseca MD [facility] [place] [address] 05/12/2024 2:45 PM EST Scheduled View Only Radiation Oncology at [address] [phone] 06/03/2024 3:30 PM EST Appointment Ultrasound at [place] [phone] Mira Hutchison, [facility] [place] [address] 06/23/2024 4:00 PM EST Appointment Mammography/DXA at [place] [phone] Miryam Feliciano MD [facility] [place] [address] 07/12/2024 8:00 AM EDT Laboratory Appointment Lab [address] [place], [place] [phone] 07/12/2024 9:30 AM EDT Office Visit Nephrology Hypertension at [place] [phone] Sharmin Jean-Baptiste [facility] [address] 07/13/2024 10:30 AM EDT Laboratory Appointment Lab at [facility] [place]ematology Oncology [address] [place] [phone] 07/13/2024 11:30 AM EDT Office Visit Hematology [place] [phone] Salena Alvares, [facility] [place] [place] [address] 07/13/2024 12:45 PM EDT Appointment Hematology [place] [address] documented as of this encounter Visit Diagnoses Not on filedocumented in this encounter Care Teams Entertainment Reporter Relationship Specialty Start Date End [place] [address] PCP - General General Internal Medicine 08/04/22 documented as of this encounter
--- OUTSIDE RECORDS SUMMARY | 2024-04-29 01:56 | XMS_ITS | Encounter Summary ---
Author Organization [facility] [place] [address] Care Team Providers Care Full Fashioned Garment Knitter Name Role Phone Haylie Steward MD Primary Care Provider [phone] Encounter Details Date Type Department Care Team [...] Scheduled View Only Radiation Oncology at [address] [address] 05/02/2024 3:45 PM EST Scheduled View Only Radiation Oncology at [address] [address] 05/03/2024 1:45 PM EST Scheduled View Only Radiation Oncology at [address] [phone] 05/03/2024 2:15 PM EST Office Visit Radiation Oncology at [address] [address] Ofe Fonseca MD [facility] RADI[place] [address] 05/05/2024 8:15 AM EST Scheduled View Only Radiation Oncology at [address] [address] 05/06/2024 12:30 PM EST Scheduled View Only Radiation Oncology at [address] [address] 05/09/2024 12:30 PM EST Scheduled View Only Radiation Oncology at [address] [address] 05/10/2024 2:30 PM EST Scheduled View Only Radiation Oncology at [address] [address] 05/10/2024 3:15 PM EST Office Visit Radiation Oncology at [address] [address] Ofe Fonseca MD [facility] [place] [address] 05/11/2024 2:30 PM EST Scheduled View Only Radiation Oncology at [address] [address] 05/11/2024 3:15 PM EST Scheduled View Only Radiation Oncology at [address] [address] Ofe Fonseca MD [facility] [place] [address] 05/12/2024 2:45 PM EST Scheduled View Only Radiation Oncology at [address] [address] 06/03/2024 3:30 PM EST Appointment Ultrasound at [place] [phone] Mira Hutchison [facility] [place] [address] 06/23/2024 4:00 PM EST Appointment Mammography/DXA at [place] [phone] Miryam Feliciano MD [facility] [place] [address] 07/12/2024 8:00 AM EDT Laboratory Appointment Lab [address] [place], [place] [phone] 07/12/2024 9:30 AM EDT Office Visit Nephrology Hypertension at [place] [phone] Sharmin Jean-Baptiste, [facility] [address] 07/13/2024 10:30 AM EDT Laboratory Appointment Lab at [facility] [place]ematology Oncology [address] [place] [phone] 07/13/2024 11:30 AM EDT Office Visit [place] [phone] Salena Alvares [facility] [place] [address] 07/13/2024 12:45 PM EDT Appointment [place]ology [place] [phone] documented as of this encounter Visit Diagnoses Not on filedocumented in this encounter Care Teams Full Fashioned Garment Knitter Relationship Specialty Start Date End Date Haylie Steward MD [facility] [address] PCP - General General Internal Medicine 08/04/22 documented as of this encounter
--- OUTSIDE RECORDS SUMMARY | 2024-04-29 01:56 | XMS_ITS | Encounter Summary ---
Author Organization [facility] [place] [address] Care Team Providers Care Recreational Facilities Motel Manager Name Role Phone Haylie Steward MD Primary Care Provider [phone] Encounter Details Date Type Department Care Team (Latest Contact Info) Description 02/18/2023 1:00 PM EDT Ancillary Procedure Radiology DXA at [facility] at [facility] [address] [place] [phone] Victoriano Heredia MD [facility] [place] [address] Primary hyperparathyroidism Social History Tobacco Use Types [...] Scheduled View Only Radiation Oncology at [address] [address] 05/02/2024 3:45 PM EST Scheduled View Only Radiation Oncology at [address] [address] 05/03/2024 1:45 PM EST Scheduled View Only Radiation Oncology at [address] [address] 05/03/2024 2:15 PM EST Office Visit Radiation Oncology at [address] [address] Ofe Fonseca MD [facility] RADIATION [place] [address] 05/05/2024 8:15 AM EST Scheduled View Only Radiation Oncology at [address] [address] 05/06/2024 12:30 PM EST Scheduled View Only Radiation Oncology at [address] [phone] 05/09/2024 12:30 PM EST Scheduled View Only Radiation Oncology at [address] [address] 05/10/2024 2:30 PM EST Scheduled View Only Radiation Oncology at [address] [address] 05/10/2024 3:15 PM EST Office Visit Radiation Oncology at [address] [address] Ofe Fonseca MD [facility] [place] [place] [address] 05/11/2024 2:30 PM EST Scheduled View Only Radiation Oncology at [address] [address] 05/11/2024 3:15 PM EST Scheduled View Only Radiation Oncology at [address] [phone] Ofe Fonseca MD [facility] [place] [address] 05/12/2024 2:45 PM EST Scheduled View Only Radiation Oncology at [address] [phone] 06/03/2024 3:30 PM EST Appointment Ultrasound at [place] [phone] Mira Hutchison [facility] [place] [address] 06/23/2024 4:00 PM EST Appointment Mammography/DXA at [place] [phone] Miryam Feliciano MD [facility] [place] [address] 07/12/2024 8:00 AM EDT Laboratory Appointment Lab [address] [place] [address] 07/12/2024 9:30 AM EDT Office Visit Nephrology Hypertension at [place] [phone] Sharmin Jean-Baptiste [facility] [place] [address] 07/13/2024 10:30 AM EDT Laboratory Appointment Lab at [facility] [place] [address] [place] [phone] 07/13/2024 11:30 AM EDT Office Visit Hematology and Oncology at [place] [phone] Salena Alvares TEST SPECIALIST [facility] MEDICAL ONCOLOGY [place] [phone] 07/13/2024 12:45 PM EDT Appointment Hematology and Oncology at [facility] [place] [place] [address] documented as of this encounter Procedures Procedure [...] BMD measurements and plots are available in [employer] under the imaging tab. Paper copies will be sent to providers without [employer] access. If you have received this report without the data sheet and do not have access to [employer], please contact Radiology Infusion Nurse at [phone] Thursday thru Thursday 8am-4pm. ? Bone Density Report ? Name: ?ShelbieNataliya Age: ? 47 Sex: ? Female Ethnicity: ? White Date of : 1975 Referring Provider: VICTORIANO HEREDIA Study: Bone densitometry was performed. Model: Besstech (S/N [id number]) SW version 13.6.1.3 Exam Date: February 18, 2023 Accession number: [id number] Bone Density: Region ? BMD ?T-score ??Z-score [...] ? Electronically signed by: Brandee Nguyen MD, [facility] ([phone]), at 02/19/2023 9:33 AM Narrative 02/19/2023 9:33 [...] copies will be sent to providers without [employer] access.If you have received this report without the data sheet and do not haveaccess to [employer], please contact Radiology Infusion Nurse at [phone] Thursday thruFriday 8am-4pm. Bone Density Report Name: Nataliya Morfin Age: 47 Sex: Female Ethnicity: White Date of : 1975 Referring Provider: VICTORIANO HEREDIA Study: Bone densitometry was performed. Model: Besstech (S/N [id number]) [employer] version 13.6.1.3 Exam Date: February 18, 2023 Accession number: [id number] Bone Density: Region BMD T-score Z-score AP [...] care specialist that requested your imaging first. Victoriano Heredia MD IMG DEXA ORDERABLES documented in this encounter Visit Diagnoses Diagnosis Primary hyperparathyroidism documented in this encounter Care Teams Recreational Facilities Motel Manager Relationship Specialty Start Date [place] [address] PCP - General General Internal Medicine 08/04/22 documented as of this encounter
--- OUTSIDE RECORDS SUMMARY | 2024-04-29 01:56 | XMS_ITS | Encounter Summary ---
Author Organization [facility] [place] [address] Care Team Providers Care Pickler Helper Name Role Phone Haylie Steward MD Primary Care Provider + [phone] Encounter Details Date Type Department Care Team (Latest Contact Info) Description 04/23/2023 10:30 AM EST Office Visit Nephrology [place] [phone] Sharmin Jean-Baptiste APRN [facility] [place] [address] Stage 3b chronic kidney disease (CKD); Stage 3a chronic kidney disease (CKD); Hyperparathyroidism; Anemia, unspecified type Social History Tobacco Use Types Packs/Day Years Used Date Smoking Tobacco: Never Smokeless Tobacco: Never Alcohol Use Standard Drinks/Week Comments Not Currently 0 (1 standard drink = 0.6 oz pur e alcohol) [facility] Inpatient Questions Answer Date Recorded [...] this encounter Progress Notes * Sharmin Jean-Baptiste, DYE STAND LOADER - 04/23/2023 10:30 AM EST Nephrology/Hypertension Clinic Follow-up Note [id number] ID: 48 y.o.year-old female being seen for [...] disease (CKD) N18.32 Hyperparathyroidism E21.3 Anemia D64.9 [employer] intoxication, accidental or unintentional, initial encounter T56.891A [...] Patient states it affects her bipolar medication [employer]. O: There were no vitals filed for [...] questions or concerns. >the total time spent [id number] AND total time the provider spent counseling was 30 minutes. CC: Haylie Steward MD @[email or web address]@ documented in this encounter Plan of Treatment Upcoming Encounters Date Type Department Care Team (Latest Contact Info) Description 04/29/2024 3:00 PM EST Scheduled View Only Radiation Oncology at [address] [address] 05/02/2024 3:45 PM EST Scheduled View Only Radiation Oncology at [address] [address] 05/03/2024 1:45 PM EST Scheduled View Only Radiation Oncology at [address] [phone] 05/03/2024 2:15 PM EST Office Visit Radiation Oncology at [address] [phone] Ofe Fonseca MD [facility] [place] [address] 05/05/2024 8:15 AM EST Scheduled View Only Radiation Oncology at [address] [address] 05/06/2024 12:30 PM EST Scheduled View Only Radiation Oncology at [address] [address] 05/09/2024 12:30 PM EST Scheduled View Only Radiation Oncology at [address] [address] 05/10/2024 2:30 PM EST Scheduled View Only Radiation Oncology at [address] [address] 05/10/2024 3:15 PM EST Office Visit Radiation Oncology at [address] [address] Ofe Fonseca MD [facility] [place] [address] 05/11/2024 2:30 PM EST Scheduled View Only Radiation Oncology at [address] [address] 05/11/2024 3:15 PM EST Scheduled View Only Radiation Oncology at [address] [address] Ofe Fonseca MD [facility] [place] [address] 05/12/2024 2:45 PM EST Scheduled View Only Radiation Oncology at [address] [address] 06/03/2024 3:30 PM EST Appointment [place] [phone] Mira Hutchison APRN [facility] [place] [address] 06/23/2024 4:00 PM EST Appointment Mammography/[place] [phone] Miryam Feliciano MD [facility] [place] [address] 07/12/2024 8:00 AM EDT Laboratory Appointment Lab [address] [address] 07/12/2024 9:30 AM EDT Office Visit Nephrology [place] [phone] Sharmin Jean-Baptiste DYE STAND LOADER [facility] [place] [address] 07/13/2024 10:30 AM EDT Laboratory Appointment Lab at [facility] Hematology Oncology [address] [place] [phone] 07/13/2024 11:30 AM EDT Office Visit Hematology [place] [phone] Salena Alvares [facility] [place] [address] 07/13/2024 12:45 PM EDT Appointment Hematology [place] [phone] documented as of this encounter Results * Protein/Creatinine Ratio, urine (04/23/2023 9:26 AM EST) Creatinine, Urine 12 mg/dL [facility] Protein, Urine <6 0 - 12 mg/dL [facility] Protein / Creatinine Ratio, Urine <0.5 ratio [facility] Urine 04/23/2023 9:26 AM EST 04/23/2023 9:32 AM EST Narrative Resulting Agency Comment Spec In Lab Sharmin Jean-Baptiste APRN URINE ORDERABLES [facility] [place] [address] * (ABNORMAL) _Urinalysis with microscopic (04/23/2023 9:26 AM EST) Glucose, Urine Dipstick Negative Negative mg/dL [facility] Protein, Urine Dipstick Negative Negative mg/dL [facility] Bilirubin, Urine Dipstick Negative Negative mg/dL [facility] Comment: Clinical correlation required for positive Urine Bilirubin results as false positive may occur with some drugs and drug related products. If a false positive is suspected a serum total bilirubin should be considered if clinically indicated. Urobilinogen, Urine Dipstick Normal Normal mg/dL [facility] pH, Urn (dipstick) 6.5 5.0 - 8.0 [facility] Blood, Urine Dipstick Trace(A) Negative mg/dL [facility] Ketone, Urine Dipstick Negative Negative mg/dL [facility] Nitrite, Urine Dipstick Negative Negative [facility] Leukocytes, Urine Dipstick Negative Negative mcL [facility] Appearance, Urine Dipstick Clear Clear [facility] Specific [employer] Urine Automated 1.005 1.005 - 1.030 [facility] Color, Urine Dipstick Yellow Yellow [facility] RBC, Urine 0 0 - 4 /HPF [facility] WBC, Urine 0 0 - 5 /HPF [facility] Squamous Epithelial Cells Raw Data, Urine 1 <=4 /HPF [facility] Urine 04/23/2023 9:26 AM EST 04/23/2023 9:32 AM EST Narrative Resulting Agency Comment Spec In Lab Sharmin L Estiven DYE STAND LOADER URINE ORDERABLES Performing Organization Address [facility] Co de Phone Number [facility] [place] [address] * Vitamin D, 25-Hydroxy (04/23/2023 8:52 AM EST) Vitamin D Total 25 OH 31 21 - 100 ng/mL [facility] Vit D Interp Sufficient [facility] Blood 04/23/2023 8:52 AM EST 04/23/2023 9:00 AM EST Narrative Resulting Agency Comment Spec In Lab Sharmin L Estiven DYE STAND LOADER CHEMISTRY ORDERAB LES Performing Organization Address City/[facility] Co de Phone Number [facility] [place] [address] * (ABNORMAL) PTH (04/23/2023 8:52 AM EST) Parathyroid Hormone 94(H) 15 - 65 pg/mL [facility] Blood 04/23/2023 8:52 AM EST 04/23/2023 9:00 AM EST Narrative Resulting Agency Comment Spec In Lab Sharmin L Estiven DYE STAND LOADER CHEMISTRY ORDERAB LES Performing Organization Address City/[facility]/ZIP Co de Phone Number [facility] [place] [address] * Phosphorus (04/23/2023 8:52 AM EST) Phosphorus 2.9 2.5 - 4.5 mg/dL [facility] Blood 04/23/2023 8:52 AM EST 04/23/2023 9:00 AM EST Narrative Resulting Agency Comment Spec In Lab Sharmin L Estiven DYE STAND LOADER CHEMISTRY ORDERAB LES Performing Organization Address [facility] Co de Phone Number [facility] [place] [address] * (ABNORMAL) Iron and TIBC (04/23/2023 8:52 AM EST) Iron 71 30 - 150 mcg/dL [facility] TIBC 397 250 - 450 mcg/dL [facility] Iron Saturation 18(L) 20 - 50 % [facility] Blood 04/23/2023 8:52 AM EST 04/23/2023 9:00 AM EST Narrative Resulting Agency Comment Spec In Lab Sharmin L Estiven DYE STAND LOADER CHEMISTRY ORDERAB LES Performing Organization Address City/[facility] Co de Phone Number [facility] [place] [address] * Ferritin (04/23/2023 8:52 AM EST) Ferritin 18 6 - 175 ng/mL [facility] Comment: Please note that as of 04/08/2023, the reference intervals for Ferritin have been updated. Blood 04/23/2023 8:52 AM EST 04/23/2023 9:00 AM EST Narrative Resulting Agency Comment Spec In Lab Sharmin Jean-Baptiste DYE STAND LOADER CHEMISTRY ORDERAB LES [facility] [place] [address] * (ABNORMAL) Basic Metabolic Panel (non-fasting) (04/23/2023 8:52 AM EST) Glucose 77 65 - 199 mg/dL [facility] Comment:Diabetes: >=200 mg/d L plus symptoms Blood Urea Nitrogen 26(H) 8 - 18 mg/dL [facility] Creatinine 1.17 0.70 - 1.20 mg/dL [facility] Sodium 142 135 - 145 mmol/L [facility] Potassium 4.5 3.5 - 5.0 mmol/L [facility] Comment: Please note: ??Patients with WBC >100,000 may have falsely elevated Potassium levels. ??For accurate Potassium quantification in these patients send serum separator tube (gold top) for subsequent determinations. ??Contact the Clinical Chemistry Laboratory if there are any questions. Chloride 108(H) 98 - 107 mmol/L [facility] Carbon Dioxide 26 22 - 31 mmol/L [facility] Anion Gap 8 5 - 15 mmol/L [facility] Calcium 10.1 8.5 - 10.5 mg/dL [facility] Est Glomerular Filtration Rate 57(L) >=60 mL/min/1. 73 m?? [facility] Comment: This patient's estimated GFR was [...] Comment Spec In Lab Sharmin L Estiven DYE STAND LOADER CHEMISTRY ORDERAB LES Performing Organization Address City/[facility]/ZIP Co de Phone Number [facility] [place] [address] * Albumin Level (04/23/2023 8:52 AM EST) Albumin 4.3 3.2 - 5.2 g/dL [facility] Blood 04/23/2023 8:52 AM EST 04/23/2023 9:00 AM EST Narrative Resulting Agency Comment Spec In Lab Sharmin L Estiven DYE STAND LOADER CHEMISTRY ORDERAB LES Performing Organization Address [facility] Co de Phone Number [facility] [place] [address] documented in this encounter Visit Diagnoses Diagnosis Stage 3b chronic kidney disease (CKD) Stage 3a chronic kidney disease (CKD) Hyperparathyroidism Hyperparathyroidism, unspecified Anemia, unspecified type documented in this encounter Care Teams Pickler Helper Relationship Specialty Start Date End Date Haylie Steward MD [facility] [address] PCP - General General Internal Medicine 08/04/22 documented as of this encounter
--- OUTSIDE RECORDS SUMMARY | 2024-04-29 01:56 | XMS_ITS | Encounter Summary ---
[place] [address] Care Team Providers Care Vascular Specialists Name Role Phone Haylie Steward MD Primary Care Provider [phone] Encounter Details Date Type Department Care Team (Latest Contact Info) Description 02/12/2023 7:15 AM EDT Laboratory Appointment Lab [address] [place] [phone] Bipolar 1 disorder Social History Tobacco Use [...] Scheduled View Only Radiation Oncology at [address] [phone] 05/02/2024 3:45 PM EST Scheduled View Only Radiation Oncology at [address] [address] 05/03/2024 1:45 PM EST Scheduled View Only Radiation Oncology at [address] [address] 05/03/2024 2:15 PM EST Office Visit Radiation Oncology at [address] [address] Ofe Fonseca MD [facility] [place] [address] 05/05/2024 8:15 AM EST Scheduled View Only Radiation Oncology at [address] [address] 05/06/2024 12:30 PM EST Scheduled View Only Radiation Oncology at [address] [address] 05/09/2024 12:30 PM EST Scheduled View Only Radiation Oncology at [address] [address] 05/10/2024 2:30 PM EST Scheduled View Only Radiation Oncology at [address] [address] 05/10/2024 3:15 PM EST Office Visit Radiation Oncology at [address] [address] Ofe Fonseca MD [facility] [place] [address] 05/11/2024 2:30 PM EST Scheduled View Only Radiation Oncology at [address] [address] 05/11/2024 3:15 PM EST Scheduled View Only Radiation Oncology at [address] [address] Ofe Fonseca MD [facility] [place] [place] [address] 05/12/2024 2:45 PM EST Scheduled View Only Radiation Oncology at [address] [phone] 06/03/2024 3:30 PM EST Appointment Ultrasound at [place] [phone] Mira Hutchison MOLDING MACHINE TENDER [facility] [place] [address] 06/23/2024 4:00 PM EST Appointment Mammography/DXA at [place] [phone] Miryam Feliciano MD [facility] [place] [address] 07/12/2024 8:00 AM EDT Laboratory Appointment Lab [address] [place], [place] [phone] 07/12/2024 9:30 AM EDT Office Visit Nephrology Hypertension at [place] [phone] Sharmin Jean-Baptiste [facility] [place] [address] 07/13/2024 10:30 AM EDT Laboratory Appointment Lab at [facility] Hematology Oncology [address] [place] [phone] 07/13/2024 11:30 AM EDT Office Visit Hematology [place] [phone] Salena Alvares [facility] [place] [address] 07/13/2024 12:45 PM EDT Appointment Hematology [place] [address] documented as of this encounter Procedures Procedure [...] EDT) Glucose 85 65 - 199 mg/dL [facility] Comment:Diabetes: >=200 mg/d L plus symptoms Blood Urea Nitrogen 31(H) 8 - 18 mg/dL [facility] Creatinine 1.16 0.70 - 1.20 mg/dL [facility] Sodium 142 135 - 145 mmol/L [facility] Potassium 4.1 3.5 - 5.0 mmol/L [facility] Comment: Please note: ??Patients with WBC >100,000 may have falsely elevated Potassium levels. ??For accurate Potassium quantification in these patients send serum separator tube (gold top) for subsequent determinations. ??Contact the Clinical Chemistry Laboratory if there are any questions. Chloride 113(H) 98 - 107 mmol/L [facility] Carbon Dioxide 18(L) 22 - 31 mmol/L [facility] Anion Gap 11 5 - 15 mmol/L [facility] Calcium 9.9 8.5 - 10.5 mg/dL [facility] Protein, Total 6.7 6.1 - 8.0 g/dL [facility] Albumin 3.9 3.2 - 5.2 g/dL [facility] Aspartate Aminotransferase 11 0 - 30 unit/L [facility] Alanine Aminotransferase 12 0 - 30 unit/L [facility] Alkaline Phosphatase 89 35 - 105 unit/L [facility] Bilirubin, Total <0.2(L) 0.2 - 1.3 mg/dL [facility] Est Glomerular Filtration Rate 58(L) >=60 mL/min/1. 73 m?? [facility] Comment: This patient's estimated GFR [...] Monge MD CHEMISTRY ORDERABLES Performing Organization Address [facility] Co de Phone Number [facility] [place] [address] * TSH (02/12/2023 7:41 AM EDT) Thyroid Stimulating Hormone 1.68 0.27 - 4.20 mcIU/mL [facility] Comment: Reference Interval (mcIU/mL): Females: ??First Trimester: 0.23-3.88 ??Second Trimester: 0.22-3.90 ??Third Trimester: 0.44-4.66 Blood 02/12/2023 7:41 AM EDT 02/12/2023 8:00 AM EDT Narrative Resulting Agency Comment Spec In Lab Michelet Monge MD CHEMISTRY ORDERABLES Performing Organization Address [facility] Co de Phone Number [facility] [place] [address] * Valproic Acid Level, Total (02/12/2023 7:41 AM EDT) Valproic Acid 52 mg/L [facility] Comment: Therapeutic Range: Anticonvulsant Therapy: ??50-100 mg/L Manic Episodes Associated with Bipolar Disorder: ??50-125 mg/L Blood 02/12/2023 7:41 AM EDT 02/12/2023 8:00 AM EDT Narrative Resulting Agency Comment Spec In Lab Michelet Monge MD CHEMISTRY ORDERABLES [facility] [place] [address] documented in this encounter Visit Diagnoses Diagnosis Bipolar 1 disorder Bipolar I disorder, most recent episode (or current) unspecified documented in this encounter Care Teams Vascular Specialists Relationship Specialty Start Date [place] [address] PCP - General General Internal Medicine 08/04/22 documented as of this encounter
--- OUTSIDE RECORDS SUMMARY | 2024-04-29 01:56 | XMS_ITS | Encounter Summary ---
Author Organization [place] [address] Care Team Providers Care Fine Grade Operator Name Role Phone Haylie Steward MD Primary Care Provider [phone] Encounter Details Date Type Department Care Team [...] Scheduled View Only Radiation Oncology at [address] [address] 05/02/2024 3:45 PM EST Scheduled View Only Radiation Oncology at [address] [address] 05/03/2024 1:45 PM EST Scheduled View Only Radiation Oncology at [address] [address] 05/03/2024 2:15 PM EST Office Visit Radiation Oncology at [address] [address] Ofe Fonseca MD [facility] RADIATION [place] [address] 05/05/2024 8:15 AM EST Scheduled View Only Radiation Oncology at [address] [address] 05/06/2024 12:30 PM EST Scheduled View Only Radiation Oncology at [address] [address] 05/09/2024 12:30 PM EST Scheduled View Only Radiation Oncology at [address] [address] 05/10/2024 2:30 PM EST Scheduled View Only Radiation Oncology at [address] [address] 05/10/2024 3:15 PM EST Office Visit Radiation Oncology at [address] [address] Ofe Fonseca MD [facility] [place] [address] 05/11/2024 2:30 PM EST Scheduled View Only Radiation Oncology at [address] [address] 05/11/2024 3:15 PM EST Scheduled View Only Radiation Oncology at [address] [address] Ofe Fonseca MD [facility] [place] [address] 05/12/2024 2:45 PM EST Scheduled View Only Radiation Oncology at [address] [address] 06/03/2024 3:30 PM EST Appointment Ultrasound at [place] [phone] Mira Hutchison [facility] [place] [address] 06/23/2024 4:00 PM EST Appointment Mammography/DXA at [place] [phone] Miraym Feliciano MD [facility] [place] [address] 07/12/2024 8:00 AM EDT Laboratory Appointment Lab [address] [place], [place] [phone] 07/12/2024 9:30 AM EDT Office Visit Nephrology Hypertension at [place] [phone] Sharmin Jean-Baptiste, [facility] [place] [address] 07/13/2024 10:30 AM EDT Laboratory Appointment Lab at [facility] Hematology Oncology [address] [place] [phone] 07/13/2024 11:30 AM EDT Office Visit [place] [phone] Salena Alvares [facility] [place] [address] 07/13/2024 12:45 PM EDT Appointment [place] [phone] documented as of this encounter Visit Diagnoses Not on filedocumented in this encounter Care Teams Fine Grade Operator Relationship Specialty Start Date End Date Haylie Steward MD [facility] [address] PCP - General General Internal Medicine 08/04/22 documented as of this encounter
--- OUTSIDE RECORDS SUMMARY | 2024-04-29 01:56 | XMS_ITS | Encounter Summary ---
Author Organization [facility] [place] [address] Care Team Providers Care Chiseler Head Name Role Phone Haylie Steward MD Primary Care Provider + [phone] Encounter Details Date Type Department Care Team (Late st Contact Info) Description 02/17/2023 Telephone [place] [phone] Kamila Noriega, RN Social History Tobacco Use Types Packs/Day Years Used Date Smoking Tobacco: Never Smokeless Tobacco: Never Alcohol Use Standard Drinks/Week Comments Not Currently 0 (1 standard drink = 0.6 oz pur e alcohol) [facility] Inpatient Questions Answer Date Recorded [...] 02/17/2023 1:34 PM EDT Copied from CRM #[id number]. Topic: Specialty Dept CRMs - Test Results [...] on 02.13.23, and dropped it off at [facility] on 02.14.23. Patient would like to discuss results, and would also like to know if blood work is needed, per a message she received on [facility]. documented in this encounter Plan of Treatment Upcoming Encounters Date Type Department Care Team (Latest Contact Info) Description 04/29/2024 3:00 PM EST Scheduled View Only Radiation Oncology at [address] [address] 05/02/2024 3:45 PM EST Scheduled View Only Radiation Oncology at [address] [address] 05/03/2024 1:45 PM EST Scheduled View Only Radiation Oncology at [address] [address] 05/03/2024 2:15 PM EST Office Visit Radiation Oncology at [address] [address] Ofe Fonseca MD [facility] [place] [address] 05/05/2024 8:15 AM EST Scheduled View Only Radiation Oncology at [address] [address] 05/06/2024 12:30 PM EST Scheduled View Only Radiation Oncology at [address] [address] 05/09/2024 12:30 PM EST Scheduled View Only Radiation Oncology at [address] [address] 05/10/2024 2:30 PM EST Scheduled View Only Radiation Oncology at [address] [address] 05/10/2024 3:15 PM EST Office Visit Radiation Oncology at [address] [address] Ofe Fonseca MD [facility] [place] [address] 05/11/2024 2:30 PM EST Scheduled View Only Radiation Oncology at [address] [address] 05/11/2024 3:15 PM EST Scheduled View Only Radiation Oncology at [address] [address] Ofe Fonseca MD [facility] [place] [address] 05/12/2024 2:45 PM EST Scheduled View Only Radiation Oncology at [address] [address] 06/03/2024 3:30 PM EST Appointment Ultrasound at [place] [phone] Mira Hutchison [facility] [place] [address] 06/23/2024 4:00 PM EST Appointment Mammography/DXA at [place] [phone] Miryam Feliciano MD [facility] [place] [address] 07/12/2024 8:00 AM EDT Laboratory Appointment Lab [address] [place], [place] [phone] 07/12/2024 9:30 AM EDT Office Visit Nephrology Hypertension at [place] [phone] Sharmin Jean-Baptiste, [facility] [place] [address] 07/13/2024 10:30 AM EDT Laboratory Appointment Lab at [facility] Hematology Oncology [address] [place] [phone] 07/13/2024 11:30 AM EDT Office Visit Hematology [place] [phone] Salena Alvares, [facility] [place] [address] 07/13/2024 12:45 PM EDT Appointment Hematology and Oncology at [place] [phone] documented as of this encounter Visit Diagnoses Not on filedocumented in this encounter Care Teams Chiseler Head Relationship Specialty Start Date End Date Haylie Steward MD [facility] [place] [address] PCP - General General Internal Medicine 08/04/22 documented as of this encounter
--- OUTSIDE RECORDS SUMMARY | 2024-04-29 01:56 | XMS_ITS | Encounter Summary ---
Author Organization [facility] [place] [address] Care Team Providers Care High School Chemistry Teacher Name Role Phone Haylie Steward MD Primary Care Provider [phone] Encounter Details Date Type Department Care Team (Late st Contact Info) Description 04/20/2023 Telephone [place] [phone] Mira Reyes Social History Tobacco Use Types Packs/Day Years Used Date Smoking Tobacco: Never Smokeless Tobacco: Never Alcohol Use Standard Drinks/Week Comments Not Currently 0 (1 standard drink = 0.6 oz pur e alcohol) [facility] Inpatient Questions Answer Date Recorded [...] Only Radiation Oncology at [address] [phone] 05/02/2024 3:45 PM EST Scheduled View Only Radiation Oncology at [address] [address] 05/03/2024 1:45 PM EST Scheduled View Only Radiation Oncology at [address] [address] 05/03/2024 2:15 PM EST Office Visit Radiation Oncology at [address] [address] Ofe Fonseca MD [facility] RADI[place] [address] 05/05/2024 8:15 AM EST Scheduled View Only Radiation Oncology at [address] [address] 05/06/2024 12:30 PM EST Scheduled View Only Radiation Oncology at [address] [address] 05/09/2024 12:30 PM EST Scheduled View Only Radiation Oncology at [address] [address] 05/10/2024 2:30 PM EST Scheduled View Only Radiation Oncology at [address] [address] 05/10/2024 3:15 PM EST Office Visit Radiation Oncology at [address] [address] Ofe Fonseca MD [facility] DR [place] [address] 05/11/2024 2:30 PM EST Scheduled View Only Radiation Oncology at [address] [address] 05/11/2024 3:15 PM EST Scheduled View Only Radiation Oncology at [address] [address] Ofe Fonseca MD [facility] [place] [place] [address] 05/12/2024 2:45 PM EST Scheduled View Only Radiation Oncology at [address] [phone] 06/03/2024 3:30 PM EST Appointment Ultrasound at [place] [phone] Mira Hutchison, [facility] [place] [address] 06/23/2024 4:00 PM EST Appointment Mammography/DXA at [place] [phone] Miryam Feliciano MD [facility] [place] [address] 07/12/2024 8:00 AM EDT Laboratory Appointment Lab [address] [facility] [place] [phone] 07/12/2024 9:30 AM EDT Office Visit Nephrology Hypertension at [place] [phone] Sharmin Jean-Baptiste, [facility] [place] [address] 07/13/2024 10:30 AM EDT Laboratory Appointment Lab at [facility] Hematology Oncology [address] [place] [phone] 07/13/2024 11:30 AM EDT Office Visit H[place]ology [place] [phone] Salena Alvares, [facility] [place] [address] 07/13/2024 12:45 PM EDT Appointment Hematology and Oncology at [place] [phone] documented as of this encounter Visit Diagnoses Not on filedocumented in this encounter Care Teams High School Chemistry Teacher Relationship Specialty Start Date [place] [address] PCP - General General Internal Medicine 08/04/22 documented as of this encounter
--- OUTSIDE RECORDS SUMMARY | 2024-04-29 01:56 | XMS_ITS | Encounter Summary ---
Author Organization [facility] [place] [address] Care Team Providers Care Call Centre Supervisor Name Role Phone Haylie Steward MD Primary Care Provider [phone] Encounter Details Date Type Department Care Team [...] Scheduled View Only Radiation Oncology at [address] [phone] 05/02/2024 3:45 PM EST Scheduled View Only Radiation Oncology at [address] [address] 05/03/2024 1:45 PM EST Scheduled View Only Radiation Oncology at [address] [address] 05/03/2024 2:15 PM EST Office Visit Radiation Oncology at [address] [address] Ofe Fonseca MD [facility] RADIATION [place] [address] 05/05/2024 8:15 AM EST Scheduled View Only Radiation Oncology at [address] [address] 05/06/2024 12:30 PM EST Scheduled View Only Radiation Oncology at [address] [address] 05/09/2024 12:30 PM EST Scheduled View Only Radiation Oncology at [address] [address] 05/10/2024 2:30 PM EST Scheduled View Only Radiation Oncology at [address] [address] 05/10/2024 3:15 PM EST Office Visit Radiation Oncology at [address] [address] Ofe Fonseca MD [facility] [place] [address] 05/11/2024 2:30 PM EST Scheduled View Only Radiation Oncology at [address] [address] 05/11/2024 3:15 PM EST Scheduled View Only Radiation Oncology at [address] [address] Ofe Fonseca MD [facility] [place] [address] 05/12/2024 2:45 PM EST Scheduled View Only Radiation Oncology at [address] [address] 06/03/2024 3:30 PM EST Appointment Ultrasound at [place] [phone] Mira Hutchison [facility] [place] [address] 06/23/2024 4:00 PM EST Appointment Mammography/DXA at [place] [phone] Miryam Feliciano MD [facility] [place] [address] 07/12/2024 8:00 AM EDT Laboratory Appointment Lab [address] [place], [place] [phone] 07/12/2024 9:30 AM EDT Office Visit Nephrology Hypertension at [place] [phone] Sharmin Jean-Baptiste, [facility] [place] [address] 07/13/2024 10:30 AM EDT Laboratory Appointment Lab at [facility] [place] Oncology [address] [place] [phone] 07/13/2024 11:30 AM EDT Office Visit [place]ology [place] [phone] Salena Alvares [facility] [place] [address] 07/13/2024 12:45 PM EDT Appointment [place]ematology [place] [phone] documented as of this encounter Visit Diagnoses Not on filedocumented in this encounter Care Teams Call Centre Supervisor Relationship Specialty Start Date End Date Haylie Steward MD [facility] [place] [address] PCP - General General Internal Medicine 08/04/22 documented as of this encounter
--- OUTSIDE RECORDS SUMMARY | 2024-04-29 01:56 | XMS_ITS | Encounter Summary ---
Author Organization [facility] [place] [address] Care Team Providers Care Diesel Retrofit Installer Name Role Phone Haylie Steward MD Primary Care Provider [phone] Reason for Visit * Reason Comments Follow-up Encounter Details Date Type Department Care Team (Late st Contact Info) Description 03/19/2023 8:00 AM EST Office Visit Obstetrics [place] [address] Maryjane Morton V, [facility] OBSTETR[facility] [place] [address] Abnormal uterine bleeding (AUB) Social History Tobacco Use Types Packs/Day Years Used Date Smoking Tobacco: Never Smokeless Tobacco: Never Alcohol Use Standard Drinks/Week Comments Not Currently 0 (1 standard drink = 0.6 oz pur e alcohol) [facility] Inpatient Questions Answer Date Recorded [...] encounter Progress Notes * Maryjane Morton V, CLOUD INFRASTRUCTURE ARCHITECT - 03/19/2023 8:00 AM EST CC: ANGELA [...] Scheduled View Only Radiation Oncology at [address] [address] 05/02/2024 3:45 PM EST Scheduled View Only Radiation Oncology at [address] [address] 05/03/2024 1:45 PM EST Scheduled View Only Radiation Oncology at [address] [address] 05/03/2024 2:15 PM EST Office Visit Radiation Oncology at [address] [address] Ofe Fonseca MD [facility] RADI[place] [address] 05/05/2024 8:15 AM EST Scheduled View Only Radiation Oncology at [address] [address] 05/06/2024 12:30 PM EST Scheduled View Only Radiation Oncology at [address] [address] 05/09/2024 12:30 PM EST Scheduled View Only Radiation Oncology at [address] [address] 05/10/2024 2:30 PM EST Scheduled View Only Radiation Oncology at [address] [address] 05/10/2024 3:15 PM EST Office Visit Radiation Oncology at [address] [address] Ofe Fonseca MD [facility] DR RADI[place] [address] 05/11/2024 2:30 PM EST Scheduled View Only Radiation Oncology at [address] [address] 05/11/2024 3:15 PM EST Scheduled View Only Radiation Oncology at [address] [address] Ofe Fonseca MD [facility] DR RADI[place] [address] 05/12/2024 2:45 PM EST Scheduled View Only Radiation Oncology at [address] [address] 06/03/2024 3:30 PM EST [place] [phone] Mira Hutchison APRN [facility] [place] [address] 06/23/2024 4:00 PM EST Appointment Mammography/[place] [phone] Miryam Feliciano MD [facility] MEDICAL [place] [address] 07/12/2024 8:00 AM EDT Laboratory Appointment Lab [facility] [address] 07/12/2024 9:30 AM EDT Office Visit [place] [phone] Sharmin Jean-Baptiste, [facility] [place] [address] 07/13/2024 10:30 AM EDT Laboratory Appointment Lab at [facility] Hematology Oncology [address] [place], [place] [phone] 07/13/2024 11:30 AM EDT Office Visit Hematology and Oncology at [place] [phone] Salena Alvares, [facility] [place] [address] 07/13/2024 12:45 PM EDT Appointment Hematology and Oncology at [place] [phone] documented as of this encounter Visit Diagnoses Diagnosis Abnormal uterine bleeding (AUB) documented in this encounter Care Teams Diesel Retrofit Installer Relationship Specialty Start Date [place] [address] PCP - General General Internal Medicine 08/04/22 documented as of this encounter
--- OUTSIDE RECORDS SUMMARY | 2024-04-29 01:56 | XMS_ITS | Encounter Summary ---
Author Organization [facility] [place] [address] Care Team Providers Care Offbearer Sewer Pipe Name Role Phone Haylie Steward MD Primary Care Provider + [phone] Encounter Details Date Type Department Care Team (Late st Contact Info) Description 02/14/2023 10:52 AM EDT - 02/14/2023 11:59 PM EDT Hospital Encounter [facility] Lab [address] [place] [phone] Angela Heredia MD [facility] [place] [address] Discharge Disposition: Home Social History Tobacco Use [...] Scheduled View Only Radiation Oncology at [address] [phone] 05/02/2024 3:45 PM EST Scheduled View Only Radiation Oncology at [address] [phone] 05/03/2024 1:45 PM EST Scheduled View Only Radiation Oncology at [address] [phone] 05/03/2024 2:15 PM EST Office Visit Radiation Oncology at [address] [address] Ofe Fonseca MD [facility] [place] [address] 05/05/2024 8:15 AM EST Scheduled View Only Radiation Oncology at [address] [address] 05/06/2024 12:30 PM EST Scheduled View Only Radiation Oncology at [address] [phone] 05/09/2024 12:30 PM EST Scheduled View Only Radiation Oncology at [address] [address] 05/10/2024 2:30 PM EST Scheduled View Only Radiation Oncology at [address] [address] 05/10/2024 3:15 PM EST Office Visit Radiation Oncology at [address] [phone] Ofe Fonseca MD [facility] [place] [address] 05/11/2024 2:30 PM EST Scheduled View Only Radiation Oncology at [address] [address] 05/11/2024 3:15 PM EST Scheduled View Only Radiation Oncology at [address] [address] Ofe Fonseca MD [facility] [place] [address] 05/12/2024 2:45 PM EST Scheduled View Only Radiation Oncology at [address] [address] 06/03/2024 3:30 PM EST Appointment [place] [address] Mira Hutchison APRN [facility] [place] [address] 06/23/2024 4:00 PM EST Appointment Mammography/DXA at [place] [phone] Miryam Feliciano MD [facility] [place] [address] 07/12/2024 8:00 AM EDT Laboratory Appointment Lab [address] [place], [place] [phone] 07/12/2024 9:30 AM EDT Office Visit Nephrology Hypertension at [place] [phone] Sharmin Jean-Baptiste, [facility] [place] [address] 07/13/2024 10:30 AM EDT Laboratory Appointment Lab at [facility] Hematology Oncology [address] [place], [place] [phone] 07/13/2024 11:30 AM EDT Office Visit Hematology and Oncology at [place] [phone] Salena Alvares, [facility] [place] [address] 07/13/2024 12:45 PM EDT Appointment Hematology [place] [phone] documented as of this encounter Procedures Procedure [...] Collected 24 hour(s) [facility] Total Volume 3,800 mL [facility] Urine 02/13/2023 6:46 AM EDT 02/14/2023 5:54 PM EDT Narrative Resulting Agency Comment Spec In Lab Angela Heredia MD CHEMISTRY ORDERABLES Performing Organization Address City/[facility]/ZIP Co de Phone Number [facility] [place] [address] * Calcium, urine, 24 hour (02/13/2023 6:46 AM EDT) Ca Concentration, U24 1.4 mg/dL [facility] Calcium, 24 Hour Urine 53.2 50.0 - 300.0 mg/24hr [facility] Comment:Reference Range: 50. 0-300.0 mg/24 hour based on diet. Urine 02/13/2023 6:46 AM EDT 02/14/2023 5:54 PM EDT Narrative Resulting Agency Comment Spec In Lab Angela Heredia MD URINE ORDERABLES Performing Organization Address City/[facility]/ZIP Co de Phone Number [facility] [place] [address] * U24 Hrs and Volume (02/13/2023 6:46 AM EDT) Hours Collected 24 hour(s) [facility] Total Volume 3,800 mL [facility] Urine 02/13/2023 6:46 AM EDT 02/14/2023 5:54 PM EDT Narrative Resulting Agency Comment Spec In Lab Angela Heredia MD CHEMISTRY ORDERABLES Performing Organization Address City/[facility]/ZIP Co de Phone Number [facility] [place] [address] * (ABNORMAL) Creatinine, urine, 24 hour (02/13/2023 6:46 AM EDT) Cre Concentration, U24 10 mg/dL [facility] Creatinine, 24 Hour Urine 0.38(L) 0.70 - 1.60 g/24hr [facility] Urine 02/13/2023 6:46 AM EDT 02/14/2023 5:54 PM EDT Narrative Resulting Agency Comment Spec In Lab Angela Heredia MD URINE ORDERABLES [facility] [place] [address] documented in this encounter Visit Diagnoses Not on filedocumented in this encounter Care Teams Offbearer Sewer Pipe Relationship Specialty Start Date End Date Haylie Steward MD [facility] [place] [address] PCP - General General Internal Medicine 08/04/22 documented as of this encounter
--- OUTSIDE RECORDS SUMMARY | 2024-04-29 01:56 | XMS_ITS | Encounter Summary ---
Author [facility] [place] [address] Care Team Providers Care Auricular Acupuncturist Name Role Phone Haylie Steward MD Primary Care Provider [phone] Encounter Details Date Type Department Care Team (Late st Contact Info) Description 02/24/2023 Telephone Obstetrics [place] [phone] Apoorva Gruber Social History Tobacco Use Types [...] Scheduled View Only Radiation Oncology at [address] [address] 05/02/2024 3:45 PM EST Scheduled View Only Radiation Oncology at [address] [address] 05/03/2024 1:45 PM EST Scheduled View Only Radiation Oncology at [address] [phone] 05/03/2024 2:15 PM EST Office Visit Radiation Oncology at [address] [phone] Ofe Fonseca MD [facility] [place] [address] 05/05/2024 8:15 AM EST Scheduled View Only Radiation Oncology at [address] [address] 05/06/2024 12:30 PM EST Scheduled View Only Radiation Oncology at [address] [phone] 05/09/2024 12:30 PM EST Scheduled View Only Radiation Oncology at [address] [address] 05/10/2024 2:30 PM EST Scheduled View Only Radiation Oncology at [address] [address] 05/10/2024 3:15 PM EST Office Visit Radiation Oncology at [address] [address] Ofe Fonseca MD [facility] [place] [address] 05/11/2024 2:30 PM EST Scheduled View Only Radiation Oncology at [address] [address] 05/11/2024 3:15 PM EST Scheduled View Only Radiation Oncology at [address] [phone] Ofe Fonseca MD [facility] [address] 05/12/2024 2:45 PM EST Scheduled View Only Radiation Oncology at [address] [phone] 06/03/2024 3:30 PM EST Appointment Ultrasound at [place] [phone] Mira Hutchison, [facility] [place] [address] 06/23/2024 4:00 PM EST Appointment Mammography/DXA at [place] [phone] Miryam Feliciano MD [facility] [place] [address] 07/12/2024 8:00 AM EDT Laboratory Appointment Lab [address] [place], [place] [phone] 07/12/2024 9:30 AM EDT Office Visit Nephrology Hypertension at [place] [phone] Sharmin Jean-Baptiste [facility] [place] [address] 07/13/2024 10:30 AM EDT Laboratory Appointment Lab at [facility] Hematology Oncology [address] [place] [phone] 07/13/2024 11:30 AM EDT Office Visit Hematology [place] [phone] Salena Alvares, [facility] [place] [address] 07/13/2024 12:45 PM EDT Appointment Hematology [place] [address] documented as of this encounter Visit Diagnoses Not on filedocumented in this encounter Care Teams Auricular Acupuncturist Relationship Specialty Start Date [place] [address] PCP - General General Internal Medicine 08/04/22 documented as of this encounter
--- OUTSIDE RECORDS SUMMARY | 2024-04-29 01:56 | XMS_ITS | Encounter Summary ---
[place] [address] Care Team Providers Care Steward/Stewardess Second Class Name Role Phone Haylie Steward MD Primary Care Provider + [phone] Reason for Referral * Consultation (Routine) - Closed Specialty Diagnoses / Procedures Referred By Contac t Referred To Contact Obstetrics and Gynecology Diagnoses Menometrorrhagia Haylie Steward MD [facility] [place] [address] [facility] [employer] [address] [place] [address] Referral ID Status Reason Start Date Expiration Date V isits Requested Visits Authorized [id number] Closed Consult, Test & Treat PCP Updated and/or Approved 01/07/2023 01/07/2024 12 12 Encounter Details Date Type Department Care Team (Late st Contact Info) Description 01/07/2023 Transcribe Orders eDH Incoming Referrals [phone] Haylie Steward MD [facility] [place] [address] Menometrorrhagia Social History Tobacco Use Types Packs/Day Years Used Date Smoking Tobacco: Never Smokeless Tobacco: Never Alcohol Use Standard Drinks/Week Comments Not Currently 0 (1 standard drink = 0.6 oz pur e alcohol) [facility] Inpatient Questions Answer Date Recorded Does Anyone [...] Scheduled View Only Radiation Oncology at [address] [phone] 05/02/2024 3:45 PM EST Scheduled View Only Radiation Oncology at [address] [phone] 05/03/2024 1:45 PM EST Scheduled View Only Radiation Oncology at [address] [phone] 05/03/2024 2:15 PM EST Office Visit Radiation Oncology at [address] [phone] Ofe Fonseca MD [facility] [place] [address] 05/05/2024 8:15 AM EST Scheduled View Only Radiation Oncology at [address] [address] 05/06/2024 12:30 PM EST Scheduled View Only Radiation Oncology at [address] [address] 05/09/2024 12:30 PM EST Scheduled View Only Radiation Oncology at [address] [address] 05/10/2024 2:30 PM EST Scheduled View Only Radiation Oncology at [address] [phone] 05/10/2024 3:15 PM EST Office Visit Radiation Oncology at [address] [phone] Ofe Fonseca MD [facility] [place] [address] 05/11/2024 2:30 PM EST Scheduled View Only Radiation Oncology at [address] [phone] 05/11/2024 3:15 PM EST Scheduled View Only Radiation Oncology at [address] [address] Ofe Fonseca MD [facility] [place] [address] 05/12/2024 2:45 PM EST Scheduled View Only Radiation Oncology at [address] [address] 06/03/2024 3:30 PM EST [place] [phone] Mira Hutchison APRN [facility] [place] [address] 06/23/2024 4:00 PM EST Appointment Mammography/[place] [phone] Miryam Feliciano MD [facility] [place] [address] 07/12/2024 8:00 AM EDT Laboratory Appointment Lab [address] [phone] 07/12/2024 9:30 AM EDT Office Visit [place] [phone] Sharmin Jean-Baptiste, [facility] [place] [address] 07/13/2024 10:30 AM EDT Laboratory Appointment Lab at [facility] Hematology Oncology [address] [place], [place] [phone] 07/13/2024 11:30 AM EDT Office Visit Hematology and Oncology at [place] [phone] Salena Alvares, [facility] [place] [address] 07/13/2024 12:45 PM EDT Appointment Hematology and Oncology at [place] [phone] Scheduled Referrals Name Type Priority Associated Diagnoses Orde r Schedule Referral to Ob-Lead Front End Developer Outpatient Referral Routine Menometrorrhagia Ordered: 01/07/2023 documented as of this encounter Visit Diagnoses Diagnosis Menometrorrhagia Excessive or frequent menstruation documented in this encounter Care Teams Steward/Stewardess Second Class Relationship Specialty Start Date [place] [address] PCP - General General Internal Medicine 08/04/22 documented as of this encounter
--- OUTSIDE RECORDS SUMMARY | 2024-04-29 01:56 | XMS_ITS | Encounter Summary ---
[place] [address] Care Team Providers Care Photographic Equipment Assembler Name Role Phone Haylie Steward MD Primary Care Provider [phone] Encounter Details Date Type Department Care Team (Latest Contact Info) Description 01/06/2023 7:30 AM EDT Laboratory Appointment Lab [address]L [place] [phone] Stage 3b chronic kidney disease (CKD) Social [...] Scheduled View Only Radiation Oncology at [address] [address] 05/02/2024 3:45 PM EST Scheduled View Only Radiation Oncology at [address] [address] 05/03/2024 1:45 PM EST Scheduled View Only Radiation Oncology at [address] [address] 05/03/2024 2:15 PM EST Office Visit Radiation Oncology at [address] [address] Ofe Fonseca MD [facility] [place] [address] 05/05/2024 8:15 AM EST Scheduled View Only Radiation Oncology at [address] [phone] 05/06/2024 12:30 PM EST Scheduled View Only Radiation Oncology at [address] [address] 05/09/2024 12:30 PM EST Scheduled View Only Radiation Oncology at [address] [address] 05/10/2024 2:30 PM EST Scheduled View Only Radiation Oncology at [address] [address] 05/10/2024 3:15 PM EST Office Visit Radiation Oncology at [address] [address] Ofe Fonseac MD [facility] [place] [address] 05/11/2024 2:30 PM EST Scheduled View Only Radiation Oncology at [address] [address] 05/11/2024 3:15 PM EST Scheduled View Only Radiation Oncology at [address] [address] Ofe Fonseca MD [facility] [place] [address] 05/12/2024 2:45 PM EST Scheduled View Only Radiation Oncology at [address] [address] 06/03/2024 3:30 PM EST Appointment Ultrasound at [place] [phone] Mira Hutchison SENIOR TALENT ACQUISITION SPECIALIST [facility] [place] [address] 06/23/2024 4:00 PM EST Appointment Mammography/[place] [address] Miryam Feliciano MD [facility] [place] [address] 07/12/2024 8:00 AM EDT Laboratory Appointment Lab [address] [place], [place] [phone] 07/12/2024 9:30 AM EDT Office Visit Nephrology Hypertension at [place] [phone] Sharmin Jean-Baptiste [facility] [place] [address] 07/13/2024 10:30 AM EDT Laboratory Appointment Lab at [facility] Hematology Oncology [address] [place] [phone] 07/13/2024 11:30 AM EDT Office Visit Hematology [place] [address] Salena Alvares [facility] [place] [address] 07/13/2024 12:45 PM EDT Appointment Hematology [place] [address] documented as of this encounter Procedures Procedure [...] EDT) Glucose, Urine Dipstick Negative Negative mg/dL [facility] Protein, Urine Dipstick Negative Negative mg/dL [facility] Bilirubin, Urine Dipstick Negative Negative mg/dL [facility] Comment: Clinical correlation required for positive Urine Bilirubin results as false positive may occur with some drugs and drug related products. If a false positive is suspected a serum total bilirubin should be considered if clinically indicated. Urobilinogen, Urine Dipstick Normal Normal mg/dL [facility] pH, Urn (dipstick) 7.0 5.0 - 8.0 [facility] Blood, Urine Dipstick Negative Negative mg/dL [facility] Ketone, Urine Dipstick Negative Negative mg/dL [facility] Nitrite, Urine Dipstick Negative Negative [facility] Leukocytes, Urine Dipstick Negative Negative mcL [facility] Appearance, Urine Dipstick Clear Clear [facility] Specific [place] Urine Automated 1.005 1.005 - 1.030 [facility] Color, Urine Dipstick Yellow Yellow [facility] RBC, Urine 0 0 - 4 /HPF [facility] WBC, Urine 0 0 - 5 /HPF [facility] Urine 01/06/2023 7:53 AM EDT 01/06/2023 8:07 AM EDT Narrative Resulting Agency Comment Spec In Lab Sharmin L Estiven SENIOR TALENT ACQUISITION SPECIALIST URINE ORDERABLES Performing Organization Address [facility] Co de Phone Number [facility] [place] [address] * Protein/Creatinine Ratio, urine (01/06/2023 7:53 AM EDT) Creatinine, Urine 15 mg/dL [facility] Protein, Urine <6 0 - 12 mg/dL [facility] Protein / Creatinine Ratio, Urine <0.4 ratio [facility] Urine 01/06/2023 7:53 AM EDT 01/06/2023 8:07 AM EDT Narrative Resulting Agency Comment Spec In Lab Sharmin L Estiven SENIOR TALENT ACQUISITION SPECIALIST URINE ORDERABLES Performing Organization Address City/[facility]/ZIP Co de Phone Number [facility] [place] [address] * Differential, Automated (01/06/2023 7:47 AM EDT) Pathologist [facility] Neutrophil % 58.1 % [facility] Neutrophil Absolute 2.75 1.70 - 6.10 x10(3)/[facility] Lymph % 28.5 % [facility] Lymphocytes Abs 1.4 0.9 - 3.2 x10(3)/[facility] Monocyte % 10.1 % [facility] Monocyte Abs 0.5 0.3 - 0.9 x10(3)/[facility] Eos % 2.5 % [facility] Eosinophils Abs 0.1 0.0 - 0.4 x10(3)/[facility] Basophil % 0.6 % [facility] Baso Absolute 0.0 0.0 - 0.1 x10(3)/[facility] Immature Gran % 0.20 % [facility] Comment: Immature granulocytes(IG's)percentage and absolute count will include metamyelocytes, myelocytes, and promyelocytes. Blood smears from CBCs yielding IG's will be scanned manually for concordance. If this scan disagrees with the automated IG or if promyelocytes are noted, a manual differential will be performed. Immature Gran Absolute 0.01 0.00 - 0.04 x10(3)/[facility] Blood 01/06/2023 7:47 AM EDT 01/06/2023 7:53 AM EDT Narrative Resulting Agency Comment Spec In Lab Sharmin Jean-Baptiste SENIOR TALENT ACQUISITION SPECIALIST [place] [address] * (ABNORMAL) Hemogram (01/06/2023 7:47 AM EDT) Pathologist [facility] White Blood Cell 4.7 4.0 - 9.5 x10(3)/[facility] Red Blood Cell 4.85 4.00 - 5.21 x10(6)/[facility] Hemoglobin 14.0 11.7 - 15.5 g/dL [facility] Hematocrit 44.6 35.7 - 45.8 % [facility] Mean Cell Volume 92.0 82.6 - 94.4 fL [facility] Mean Cell Hemoglobin 28.9 27.1 - 32.0 pg [facility] Mean Cell Hemoglobin Concentration 31.4(L) 31.7 - 35.0 g/dL [facility] Platelet 273 145 - 357 x10(3)/mc L [facility] RDW Standard Deviation 51.5(H) 37.0 - 46.0 fL [facility] RDW coefficient of variation 15.3(H) 11.5 - 14.1 % [facility] Mean Platelet Volume 9.2 7.6 - 12.9 fL [facility] NRBC% auto 0.0 % [facility] NRBC Absolute 0.000 0.000 - 0.000 x10(3)/mc L [facility] Blood 01/06/2023 7:47 AM EDT 01/06/2023 7:53 AM EDT Narrative Resulting Agency Comment Spec In Lab Sharmin L Estiven SENIOR TALENT ACQUISITION SPECIALIST HEMATOLOGY ORDERA BLES Performing Organization Address City/[facility]/ZIP Co de Phone Number [facility] [place] [address] * Albumin Level (01/06/2023 7:47 AM EDT) Albumin 4.1 3.2 - 5.2 g/dL [facility] Blood 01/06/2023 7:47 AM EDT 01/06/2023 7:53 AM EDT Narrative Resulting Agency Comment Spec In Lab Sharmin L Estiven SENIOR TALENT ACQUISITION SPECIALIST CHEMISTRY ORDERAB LES Performing Organization Address City/[facility]/ZIP Co de Phone Number [facility] [place] [address] * (ABNORMAL) Basic Metabolic Panel (non-fasting) (01/06/2023 7:47 AM EDT) Glucose 85 65 - 199 mg/dL [facility] Comment:Diabetes: >=200 mg/d L plus symptoms Blood Urea Nitrogen 18 8 - 18 mg/dL [facility] Creatinine 1.28(H) 0.70 - 1.20 mg/dL [facility] Sodium 141 135 - 145 mmol/L [facility] Potassium 4.6 3.5 - 5.0 mmol/L [facility] Comment: Please note: ??Patients with WBC >100,000 may have falsely elevated Potassium levels. ??For accurate Potassium quantification in these patients send serum separator tube (gold top) for subsequent determinations. ??Contact the Clinical Chemistry Laboratory if there are any questions. Chloride 108(H) 98 - 107 mmol/L [facility] Carbon Dioxide 25 22 - 31 mmol/L [facility] Anion Gap 8 5 - 15 mmol/L [facility] Calcium 10.2 8.5 - 10.5 mg/dL [facility] Est Glomerular Filtration Rate 52(L) >=60 mL/min/1. 73 m?? [facility] Comment: This patient's estimated GFR was [...] Agency Comment Spec In Lab Sharmin Jean-Baptiste SENIOR TALENT ACQUISITION SPECIALIST CHEMISTRY ORDERAB LES [facility] [place] [address] * Ferritin (01/06/2023 7:47 AM EDT) Ferritin 38 15 - 150 ng/mL [facility] Comment: Pediatric reference ranges not verified at [facility], interpret with caution. Reference ranges for females greater than 50 years of age approach values for men, i.e., 30-400 ng/mL. Blood 01/06/2023 7:47 AM EDT 01/06/2023 7:53 AM EDT Narrative Resulting Agency Comment Spec In Lab Sharmin L Estiven SENIOR TALENT ACQUISITION SPECIALIST CHEMISTRY ORDERAB LES Performing Organization Address City/[facility] Co de Phone Number [facility] [place] [address] * Iron and TIBC (01/06/2023 7:47 AM EDT) Iron 95 30 - 150 mcg/dL [facility] TIBC 347 250 - 450 mcg/dL [facility] Iron Saturation 27 20 - 50 % [facility] Blood 01/06/2023 7:47 AM EDT 01/06/2023 7:53 AM EDT Narrative Resulting Agency Comment Spec In Lab Sharmin L Estiven SENIOR TALENT ACQUISITION SPECIALIST CHEMISTRY ORDERAB LES Performing Organization Address [facility] Co de Phone Number [facility] [place] [address] * Phosphorus (01/06/2023 7:47 AM EDT) Phosphorus 2.5 2.5 - 4.5 mg/dL [facility] Blood 01/06/2023 7:47 AM EDT 01/06/2023 7:53 AM EDT Narrative Resulting Agency Comment Spec In Lab Sharmin L Estiven SENIOR TALENT ACQUISITION SPECIALIST CHEMISTRY ORDERAB LES Performing Organization Address [facility] Co de Phone Number [facility] [place] [address] * (ABNORMAL) PTH (01/06/2023 7:47 AM EDT) Parathyroid Hormone 109(H) 15 - 65 pg/mL [facility] Blood 01/06/2023 7:47 AM EDT 01/06/2023 7:53 AM EDT Narrative Resulting Agency Comment Spec In Lab Sharmin L Estiven SENIOR TALENT ACQUISITION SPECIALIST CHEMISTRY ORDERAB LES Performing Organization Address City/[facility]/ZIP Co de Phone Number [facility] [place] [address] * Vitamin D, 25-Hydroxy (01/06/2023 7:47 AM EDT) Vitamin D Total 25 OH 36 21 - 100 ng/mL [facility] Vit D Interp Sufficient [facility] Blood 01/06/2023 7:47 AM EDT 01/06/2023 7:53 AM EDT Narrative Resulting Agency Comment Spec In Lab Sharmin Agueroersoll SENIOR TALENT ACQUISITION SPECIALIST CHEMISTRY ORDERAB LES Performing Organization Address [facility] Co de Phone Number [facility] [place] [address] documented in this encounter Visit Diagnoses Diagnosis Stage 3b chronic kidney disease (CKD) documented in this encounter Care Teams Photographic Equipment Assembler Relationship Specialty Start Date End Date Haylie Steward MD [facility] [address] PCP - General General Internal Medicine 08/04/22 documented as of this encounter
--- OUTSIDE RECORDS SUMMARY | 2024-04-29 01:56 | XMS_ITS | Encounter Summary ---
Author Organization [facility] [address] Care Team Providers Care Airborne Missions Systems Name Role Phone Haylie Steward MD Primary Care Provider [phone] Encounter Details Date Type Department Care Team [...] Scheduled View Only Radiation Oncology at [address] [phone] 05/02/2024 3:45 PM EST Scheduled View Only Radiation Oncology at [address] [address] 05/03/2024 1:45 PM EST Scheduled View Only Radiation Oncology at [address] [address] 05/03/2024 2:15 PM EST Office Visit Radiation Oncology at [address] [phone] Ofe Fonseca MD [facility] [place] [address] 05/05/2024 8:15 AM EST Scheduled View Only Radiation Oncology at [address] [address] 05/06/2024 12:30 PM EST Scheduled View Only Radiation Oncology at [address] [address] 05/09/2024 12:30 PM EST Scheduled View Only Radiation Oncology at [address] [address] 05/10/2024 2:30 PM EST Scheduled View Only Radiation Oncology at [address] [phone] 05/10/2024 3:15 PM EST Office Visit Radiation Oncology at [address] [address] Ofe Fonseca MD [facility] [place] [address] 05/11/2024 2:30 PM EST Scheduled View Only Radiation Oncology at [address] [address] 05/11/2024 3:15 PM EST Scheduled View Only Radiation Oncology at [address] [address] Ofe Fonseca MD [facility] [place] [address] 05/12/2024 2:45 PM EST Scheduled View Only Radiation Oncology at [address] [address] 06/03/2024 3:30 PM EST Appointment Ultrasound at [place] [phone] Mira Hutchison [facility] [address] 06/23/2024 4:00 PM EST Appointment Mammography/DXA at [place] [phone] Miryam Feliciano MD [facility] [place] [address] 07/12/2024 8:00 AM EDT Laboratory Appointment Lab [address] [place], [place] [phone] 07/12/2024 9:30 AM EDT Office Visit Nephrology Hypertension at [place] [phone] Sharmin Jean-Baptiste, [facility] [place] [address] 07/13/2024 10:30 AM EDT Laboratory Appointment Lab at [facility] Hematology Oncology [address] [place] [phone] 07/13/2024 11:30 AM EDT Office Visit Hematology [place] [phone] Salena Alvares [facility] [place] [address] 07/13/2024 12:45 PM EDT Appointment Hematology [place] [phone] documented as of this encounter Visit Diagnoses Not on filedocumented in this encounter Care Teams Airborne Missions Systems Relationship Specialty Start Date End Date Haylie Steward MD [facility] [place] [address] PCP - General General Internal Medicine 08/04/22 documented as of this encounter
--- OUTSIDE RECORDS SUMMARY | 2024-04-29 01:56 | XMS_ITS | Encounter Summary ---
Author Organization [facility] [place] [address] Care Team Providers Care Front Desk Officer Name Role Phone Haylie Steward MD Primary Care Provider [phone] Encounter Details Date Type Department Care Team (Late st Contact Info) Description 02/20/2023 Orders [place] [phone] Victoriano Heredia MD [facility] [place] [address] Primary hyperparathyroidism Social History Tobacco Use Types [...] Scheduled View Only Radiation Oncology at [address] [address] 05/02/2024 3:45 PM EST Scheduled View Only Radiation Oncology at [address] [address] 05/03/2024 1:45 PM EST Scheduled View Only Radiation Oncology at [address] [address] 05/03/2024 2:15 PM EST Office Visit Radiation Oncology at [address] [address] Ofe Fonseca MD [facility] [place] [address] 05/05/2024 8:15 AM EST Scheduled View Only Radiation Oncology at [address] [address] 05/06/2024 12:30 PM EST Scheduled View Only Radiation Oncology at [address] [address] 05/09/2024 12:30 PM EST Scheduled View Only Radiation Oncology at [address] [address] 05/10/2024 2:30 PM EST Scheduled View Only Radiation Oncology at [address] [phone] 05/10/2024 3:15 PM EST Office Visit Radiation Oncology at [address] [address] Ofe Fonseca MD [facility] [place] [address] 05/11/2024 2:30 PM EST Scheduled View Only Radiation Oncology at [address] [phone] 05/11/2024 3:15 PM EST Scheduled View Only Radiation Oncology at [address] [phone] Ofe Fonseca MD [facility] [place] [address] 05/12/2024 2:45 PM EST Scheduled View Only Radiation Oncology at [address] [phone] 06/03/2024 3:30 PM EST Appointment Ultrasound at [place] [phone] Mira Hutchison, [facility] [place] [address] 06/23/2024 4:00 PM EST Appointment Mammography/DXA at [place] [phone] Miryam Feliciano MD [facility] [place] [address] 07/12/2024 8:00 AM EDT Laboratory Appointment Lab [place] [phone] 07/12/2024 9:30 AM EDT Office Visit [place] [phone] Sharmin Jean-Baptiste, [facility] [address] 07/13/2024 10:30 AM EDT Laboratory Appointment Lab at [facility] Hematology Oncology [address] [place] [phone] 07/13/2024 11:30 AM EDT Office Visit [place] [address] Salena Alvares APRN [facility] [place] [address] 07/13/2024 12:45 PM EDT Appointment H[place]ology [place] [address] documented as of this encounter Results * Vitamin D, 25-Hydroxy (06/08/2023 11:04 AM EST) Vitamin D Total 25 OH 41 21 - 100 ng/mL [facility] Vit D Interp Sufficient [facility] Blood 06/08/2023 11:0 4 AM EST 06/08/2023 11:19 AM EST Narrative Resulting Agency Comment Spec In Lab Victoriano Heredia MD CHEMISTRY ORDERABLES [facility] [place] [address] * (ABNORMAL) PTH (06/08/2023 11:04 AM EST) Parathyroid Hormone 138(H) 15 - 65 pg/mL [facility] Blood 06/08/2023 11:0 4 AM EST 06/08/2023 11:20 AM EST Narrative Resulting Agency Comment Spec In Lab Victoriano Heredia MD CHEMISTRY ORDERABLES [facility] [place] [address] documented in this encounter Visit Diagnoses Diagnosis Primary hyperparathyroidism documented in this encounter Care Teams Front Desk Officer Relationship Specialty Start Date [place] [address] PCP - General General Internal Medicine 08/04/22 documented as of this encounter
--- OUTSIDE RECORDS SUMMARY | 2024-04-29 01:56 | XMS_ITS | Encounter Summary ---
Author Organization [facility] [place] [address] Care Team Providers Care Trailhead Construction Worker Name Role Phone Haylie Steward MD Primary Care Provider [phone] Encounter Details Date Type Department Care Team [...] Scheduled View Only Radiation Oncology at [address] [phone] 05/02/2024 3:45 PM EST Scheduled View Only Radiation Oncology at [address] [phone] 05/03/2024 1:45 PM EST Scheduled View Only Radiation Oncology at [address] [phone] 05/03/2024 2:15 PM EST Office Visit Radiation Oncology at [address] [phone] Ofe Fonseca MD [facility] [place] [address] 05/05/2024 8:15 AM EST Scheduled View Only Radiation Oncology at [address] [address] 05/06/2024 12:30 PM EST Scheduled View Only Radiation Oncology at [address] [address] 05/09/2024 12:30 PM EST Scheduled View Only Radiation Oncology at [address] [address] 05/10/2024 2:30 PM EST Scheduled View Only Radiation Oncology at [address] [address] 05/10/2024 3:15 PM EST Office Visit Radiation Oncology at [address] [address] Ofe Fonseca MD [facility] [place] [address] 05/11/2024 2:30 PM EST Scheduled View Only Radiation Oncology at [address] [phone] 05/11/2024 3:15 PM EST Scheduled View Only Radiation Oncology at [address] [phone] Ofe Fonseca MD [facility] [place] [address] 05/12/2024 2:45 PM EST Scheduled View Only Radiation Oncology at [address] [phone] 06/03/2024 3:30 PM EST Appointment Ultrasound at [place] [phone] Mira Hutchison [facility] [place] [address] 06/23/2024 4:00 PM EST Appointment Mammography/DXA at [place] [phone] Miryam Feliciano MD [facility] [place] [address] 07/12/2024 8:00 AM EDT Laboratory Appointment Lab [address] [place], [place] [phone] 07/12/2024 9:30 AM EDT Office Visit Nephrology Hypertension at [place] [phone] Sharmin Jean-Baptiste, [facility] [place] [address] 07/13/2024 10:30 AM EDT Laboratory Appointment Lab at [facility] [place]ematology Oncology [address] [place] [phone] 07/13/2024 11:30 AM EDT Office Visit Hematology [place] [phone] Salena Alvares [facility] [place] [address] 07/13/2024 12:45 PM EDT Appointment Hematology [place] [phone] documented as of this encounter Visit Diagnoses Not on filedocumented in this encounter Care Teams Trailhead Construction Worker Relationship Specialty Start Date End Date Haylie Steward MD [facility] [place] [address] PCP - General General Internal Medicine 08/04/22 documented as of this encounter
--- OUTSIDE RECORDS SUMMARY | 2024-04-29 01:56 | XMS_ITS | Encounter Summary ---
[place] [address] Care Team Providers Care Fitter'S Assistant Name Role Phone Haylie Steward MD Primary Care Provider + [phone] Encounter Details Date Type Department Care Team (Latest Contact Info) Description 04/03/2023 3:00 PM EST Clinical Support Obstetrics [place] [phone] Abnormal uterine bleeding (AUB) Social History Tobacco Use Types Packs/Day Years Used Date Smoking Tobacco: Never Smokeless Tobacco: Never Alcohol Use Standard Drinks/Week Comments Not Currently 0 (1 standard drink = 0.6 oz pur e alcohol) [facility] Inpatient Questions Answer Date Recorded [...] questions regarding her earlier appointment with Dr. Mratini. Nataliya would like to discuss the possibility [...] Scheduled View Only Radiation Oncology at [address] [phone] 05/02/2024 3:45 PM EST Scheduled View Only Radiation Oncology at [address] [phone] 05/03/2024 1:45 PM EST Scheduled View Only Radiation Oncology at [address] [address] 05/03/2024 2:15 PM EST Office Visit Radiation Oncology at [address] [phone] Ofe Fonseca MD [facility] [place] [address] 05/05/2024 8:15 AM EST Scheduled View Only Radiation Oncology at [address] [phone] 05/06/2024 12:30 PM EST Scheduled View Only Radiation Oncology at [address] [phone] 05/09/2024 12:30 PM EST Scheduled View Only Radiation Oncology at [address] [address] 05/10/2024 2:30 PM EST Scheduled View Only Radiation Oncology at [address] [address] 05/10/2024 3:15 PM EST Office Visit Radiation Oncology at [address] [phone] Ofe Fonseca MD [facility] [place] [address] 05/11/2024 2:30 PM EST Scheduled View Only Radiation Oncology at [address] [address] 05/11/2024 3:15 PM EST Scheduled View Only Radiation Oncology at [address] [phone] Ofe Fonseca MD [facility] [place] [address] 05/12/2024 2:45 PM EST Scheduled View Only Radiation Oncology at [address] [phone] 06/03/2024 3:30 PM EST Appointment [place] [phone] Mira Hutchison CHECKOUT OPERATOR [facility] [place] [address] 06/23/2024 4:00 PM EST Appointment Mammography/DXA at [place] [phone] Miryam Feliciano MD [facility] [place] [address] 07/12/2024 8:00 AM EDT Laboratory Appointment Lab [place] [phone] 07/12/2024 9:30 AM EDT Office Visit Nephrology Hypertension at [place] [phone] Sharmin Jean-Baptiste APRN [facility] [place] [address] 07/13/2024 10:30 AM EDT Laboratory Appointment Lab at [facility] Hematology Oncology [address] [place] [phone] 07/13/2024 11:30 AM EDT Office Visit Hematology [place] [phone] Salena Alvares APRN [facility] [place] [address] 07/13/2024 12:45 PM EDT Appointment Hematology [place] [phone] documented as of this encounter Visit Diagnoses Diagnosis Abnormal uterine bleeding (AUB) documented in this encounter Care Teams Fitter'S Assistant Relationship Specialty Start Date End [place] [address] PCP - General General Internal Medicine 08/04/22 documented as of this encounter
--- OUTSIDE RECORDS SUMMARY | 2024-04-29 01:56 | XMS_ITS | Encounter Summary ---
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 Denny, attending radio technician, with whom the plan was formulated. Vini [...] Scheduled View Only Radiation Oncology at [address] [phone] 05/02/2024 3:45 PM EST Scheduled View Only Radiation Oncology at [address] [phone] 05/03/2024 1:45 PM EST Scheduled View Only Radiation Oncology at [address] [phone] 05/03/2024 2:15 PM EST Office Visit Radiation Oncology at [address] [phone] Ofe Fonseca MD [facility] [place] [address] 05/05/2024 8:15 AM EST Scheduled View Only Radiation Oncology at [address] [phone] 05/06/2024 12:30 PM EST Scheduled View Only Radiation Oncology at [address] [phone] 05/09/2024 12:30 PM EST Scheduled View Only Radiation Oncology at [address] [address] 05/10/2024 2:30 PM EST Scheduled View Only Radiation Oncology at [address] [phone] 05/10/2024 3:15 PM EST Office Visit Radiation Oncology at [address] [phone] Ofe Fonseca MD [facility] [place] [address] 05/11/2024 2:30 PM EST Scheduled View Only Radiation Oncology at [address] [phone] 05/11/2024 3:15 PM EST Scheduled View Only Radiation Oncology at [address] [phone] Ofe Fonseca MD [facility] [place] [address] 05/12/2024 2:45 PM EST Scheduled View Only Radiation Oncology at [address] [phone] 06/03/2024 3:30 PM EST Appointment Ultrasound at [address] Mira Hutchison INFERTILITY NURSE [facility] [place] [address] 06/23/2024 4:00 PM EST Appointment Mammography/DXA at [place] [phone] Miryam Feliciano MD [facility] [place] [address] 07/12/2024 8:00 AM EDT Laboratory Appointment Lab [address] [phone] 07/12/2024 9:30 AM EDT Office Visit Nephrology Hypertension at [place] [phone] Sharmin Jean-Baptiste APRN [facility] [place] [address] 07/13/2024 10:30 AM EDT Laboratory Appointment Lab at [facility] Hematology Oncology [address] [place] [phone] 07/13/2024 11:30 AM EDT Office Visit Hematology [place] [phone] Salena Alvares APRN [facility] [place] [address] 07/13/2024 12:45 PM EDT Appointment Hematology [place] [phone] documented as of this encounter Visit Diagnoses Diagnosis Abnormal uterine bleeding (AUB) Perimenopausal Symptomatic menopausal or female climacteric states Stage 3b chronic kidney disease (CKD) Obsessive-compulsive disorder, unspecified type documented in this encounter Care Teams Buckle Coverer Relationship Specialty Start Date [place] [address] PCP - General General Internal Medicine 08/04/22 documented as of this encounter
--- OUTSIDE RECORDS SUMMARY | 2024-04-29 01:57 | XMS_ITS | Encounter Summary ---
Author Organization [facility]ly [facility] [place] [address] Care Team Providers Care Dispatcher Electric Power Name Role Phone Haylie Steward MD Primary Care Provider + [phone] Encounter Details Date Type Department Care Team (Late st Contact Info) Description 12/15/2022 Orders Only [place] [phone] Betina Varma, [facility] [place] [address] Social History Tobacco Use Types Packs/Day Years Used Date Smoking Tobacco: Never Smokeless Tobacco: Never Alcohol Use Standard Drinks/Week Comments Not Currently 0 (1 standard drink = 0.6 oz pur e alcohol) [facility] Inpatient Questions Answer Date Recorded [...] Scheduled View Only Radiation Oncology at [address] [phone] 05/02/2024 3:45 PM EST Scheduled View Only Radiation Oncology at [address] [phone] 05/03/2024 1:45 PM EST Scheduled View Only Radiation Oncology at [address] [phone] 05/03/2024 2:15 PM EST Office Visit Radiation Oncology at [address] [phone] Ofe Fonseca MD [facility] [place] [address] 05/05/2024 8:15 AM EST Scheduled View Only Radiation Oncology at [address] [phone] 05/06/2024 12:30 PM EST Scheduled View Only Radiation Oncology at [address] [phone] 05/09/2024 12:30 PM EST Scheduled View Only Radiation Oncology at [address] [phone] 05/10/2024 2:30 PM EST Scheduled View Only Radiation Oncology at [address] [phone] 05/10/2024 3:15 PM EST Office Visit Radiation Oncology at [address] [phone] Ofe Fonseca MD [facility] [place] [address] 05/11/2024 2:30 PM EST Scheduled View Only Radiation Oncology at [address] [phone] 05/11/2024 3:15 PM EST Scheduled View Only Radiation Oncology at [address] [phone] Ofe Fonseca MD [facility] [place] [address] 05/12/2024 2:45 PM EST Scheduled View Only Radiation Oncology at [address] [phone] 06/03/2024 3:30 PM EST Appointment Ultrasound at [place] [phone] Mira Hutchison [facility] [place] [address] 06/23/2024 4:00 PM EST Appointment Mammography/DXA at [place] [phone] Miryam Feliciano MD [facility] [place] [address] 07/12/2024 8:00 AM EDT Laboratory Appointment Lab [address] [place], [place] [phone] 07/12/2024 9:30 AM EDT Office Visit Nephrology Hypertension at [place] [phone] Sharmin Jean-Baptiste [facility] [place] [address] 07/13/2024 10:30 AM EDT Laboratory Appointment Lab at [facility] Hematology Oncology [address] [place] [phone] 07/13/2024 11:30 AM EDT Office Visit Hematology and Oncology at [place] [phone] Salena Alvares APRN [facility] [place] [address] 07/13/2024 12:45 PM EDT Appointment Hematology [place] [phone] documented as of this encounter Procedures Procedure Name Priority Date/Time Associated Diagnosis Comments VARICELLA ZOSTER ANTIBODY, IGG Routine 12/15/2022 4:56 PM EDT documented in this encounter Results * Varicella zoster Antibody, IgG (12/15/2022 4:56 PM EDT) Varicella Zoster Antibody IgG Positive Positive [facility] Comment: A positive result for this assay is considered to be an indicator of positive immune status. Blood Venous Draw / Unknown 12/15/2022 4:56 PM EDT 12/16/2022 7:18 AM EDT Narrative Resulting Agency Comment Spec In Lab Betina Varma [facility] ORDERABLE S [facility] [place] [address] documented in this encounter Visit Diagnoses Not on filedocumented in this encounter Care Teams Dispatcher Electric Power Relationship Specialty Start Date [place] [address] PCP - General General Internal Medicine 08/04/22 documented as of this encounter
--- OUTSIDE RECORDS SUMMARY | 2024-04-29 01:57 | XMS_ITS | Encounter Summary ---
Author Organization [facility] [place] [address] Care Team Providers Care Service Person Name Role Phone Haylie Steward MD Primary Care Provider [phone] Encounter Details Date Type Department Care Team (Late st Contact Info) Description 11/10/2022 Interpretation Only [address] [phone] Haylie Steward [place] [address] [place] [address] Social History Tobacco Use Types Packs/Day Years [...] Scheduled View Only Radiation Oncology at [address] [phone] 05/02/2024 3:45 PM EST Scheduled View Only Radiation Oncology at [address] [phone] 05/03/2024 1:45 PM EST Scheduled View Only Radiation Oncology at [address] [phone] 05/03/2024 2:15 PM EST Office Visit Radiation Oncology at [address] [phone] Ofe Fonseca MD [facility] RADIATION [place] [address] 05/05/2024 8:15 AM EST Scheduled View Only Radiation Oncology at [address] [address] 05/06/2024 12:30 PM EST Scheduled View Only Radiation Oncology at [address] [phone] 05/09/2024 12:30 PM EST Scheduled View Only Radiation Oncology at [address] [phone] 05/10/2024 2:30 PM EST Scheduled View Only Radiation Oncology at [address] [phone] 05/10/2024 3:15 PM EST Office Visit Radiation Oncology at [address] [phone] Ofe Fonseca MD [facility] [place] [address] 05/11/2024 2:30 PM EST Scheduled View Only Radiation Oncology at [address] [phone] 05/11/2024 3:15 PM EST Scheduled View Only Radiation Oncology at [address] [phone] Ofe Fonseca MD [facility] [place] [address] 05/12/2024 2:45 PM EST Scheduled View Only Radiation Oncology at [address] [phone] 06/03/2024 3:30 PM EST Appointment Ultrasound at [place] [phone] iMra Hutchison [facility] [place] [address] 06/23/2024 4:00 PM EST Appointment Mammography/DXA at [place] [phone] Miryam Feliciano MD [facility] [place] [place] [address] 07/12/2024 8:00 AM EDT Laboratory Appointment Lab [address] [place], [place] [phone] 07/12/2024 9:30 AM EDT Office Visit Nephrology Hypertension at [place] [phone] Sharmin Jean-Baptiste [facility] [place] [address] 07/13/2024 10:30 AM EDT Laboratory Appointment Lab at [facility] Hematology Oncology [address] [place] [phone] 07/13/2024 11:30 AM EDT Office Visit Hematology and Oncology at [place] [phone] Salena Alvares APRN [facility] [place] [address] 07/13/2024 12:45 PM EDT Appointment Hematology [place] [phone] documented as of this encounter Procedures Procedure Name Priority Date/Time Associated Diagnosis Comments MAMMO SCREENING CAD AND EDWARD BILATERAL Routine 11/10/2022 1:35 PM EDT documented in this encounter Results * Mammo Screening Cad and Edward Bilateral (11/10/2022 1:35 PM EDT) PT CLASS O DH RAD ADMITDTTM DH RAD PT RAD INFO [id number]^STEWARD^ HAYLIE DH RAD EXAM DESC MADDSCTO^BREAST SCREEN TOMOSYNTHESIS BI^RIS [...] questions please contact the health respiratory care specialist that requested your imaging first. Thank you for letting us participate in the care of this patient. ??If you are a health care provider and have any questions regarding this report, please contact the number below. ??For patients who have questions please contact the health respiratory care specialist that requested your imaging first. [...] patients who have questions please contactthe health respiratory care specialist that requested your imaging first. Thank you for letting us participate in the care of this patient. If youare a health care provider and have any questions regarding this report,please contact the number below. For patients who have questions please contactthe health respiratory care specialist that requested your imaging first. Haylie Steward MD IMG MAMMO ORDERABLES documented in this encounter Visit Diagnoses Not on filedocumented in this encounter Care Teams Service Person Relationship Specialty Start Date End Date Haylie Steward MD [facility] [address] PCP - General General Internal Medicine 08/04/22 documented as of this encounter
--- OUTSIDE RECORDS SUMMARY | 2024-04-29 01:57 | XMS_ITS | Encounter Summary ---
Author Organization [facility] [place] [address] Care Team Providers Care Airline Reservationist Name Role Phone Haylie Steward MD Primary Care Provider + [phone] Encounter Details Date Type Department Care Team (Latest Contact Info) Description 10/01/2022 1:20 PM EDT - 10/01/2022 11:59 PM EDT Hospital En[place] [address] [place] [address] Stage 3b chronic kidney disease (CKD) Discharge Disposition: Home Social History Tobacco Use Types Packs/Day Years Used Date Smoking Tobacco: Never Smokeless Tobacco: Never Alcohol Use Standard Drinks/Week Comments Not Currently 0 (1 standard drink = 0.6 oz pur e alcohol) [facility] Inpatient Questions Answer Date [...] Scheduled View Only Radiation Oncology at [address] [phone] 05/02/2024 3:45 PM EST Scheduled View Only Radiation Oncology at [address] [phone] 05/03/2024 1:45 PM EST Scheduled View Only Radiation Oncology at [address] [phone] 05/03/2024 2:15 PM EST Office Visit Radiation Oncology at [address] [phone] fOe Fonseca MD [facility] [place] [address] 05/05/2024 8:15 AM EST Scheduled View Only Radiation Oncology at [address] [address] 05/06/2024 12:30 PM EST Scheduled View Only Radiation Oncology at [address] [address] 05/09/2024 12:30 PM EST Scheduled View Only Radiation Oncology at [address] [phone] 05/10/2024 2:30 PM EST Scheduled View Only Radiation Oncology at [address] [address] 05/10/2024 3:15 PM EST Office Visit Radiation Oncology at [address] [phone] Ofe Fonseca MD [facility] [place] [address] 05/11/2024 2:30 PM EST Scheduled View Only Radiation Oncology at [address] [address] 05/11/2024 3:15 PM EST Scheduled View Only Radiation Oncology at [address] [address] Ofe Fonseca MD [facility] [address] 05/12/2024 2:45 PM EST Scheduled View Only Radiation Oncology at [address] [phone] 06/03/2024 3:30 PM EST [place] [address] Mira Hutchison APRN [facility] [place] [address] 06/23/2024 4:00 PM EST Appointment Mammography/DXA at [place] [phone] Miryam Feliciano MD [facility] [place] [address] 07/12/2024 8:00 AM EDT Laboratory Appointment Lab [address] [place], [place] [phone] 07/12/2024 9:30 AM EDT Office Visit Nephrology Hypertension at [place] [phone] Sharmin Jean-Baptiste, [facility] [place] [address] 07/13/2024 10:30 AM EDT Laboratory Appointment Lab at [facility] Hematology Oncology [address] [place], [place] [phone] 07/13/2024 11:30 AM EDT Office Visit Hematology and Oncology at [place] [phone] Salena Alvares, [facility] [place] [address] 07/13/2024 12:45 PM EDT Appointment Hematology [place] [phone] documented as of this encounter [...] Dawn Sanchez MD at 10/01/2022 7:46 PM Thank you for letting us participate in the care of this patient. If you are a health care provider and have any questions regarding this report, please contact the number above. For patients who have questions, please contact the health child care center administrator that requested your imaging first. ?Dawn Sanchez [facility] Synthetic Staple Extruder Electronically Signed Final Report ?? 10/01/2022 07:53 pm Narrative 10/01/2022 7:53 PM EDT Renal ? (Signed Final 10/01/2022 07:53 pm) PATIENT INFO: ID #: ? [id number] ?: ??[birth year] (47 yrs)(F) Name: ? NATALIYA MORFIN ? Visit Date: 10/01/2022 02:08 pm PERFORMED BY: Attending: ?Laura NÚÑEZ, Dawn Wiseman Resident: ? Jayne NÚÑEZ, Nato Performed By: ? Monster Bhatia RDMS Referred By: ?SHAKA HOOVER Location: ? [place] SERVICE(S) PROVIDED: URETRO - Retroperitoneal Complete - [id number] ? [id number] INDICATIONS: long-standing lithium use and CKD, requested [...] 10/01/2022 07:53 pm) PATIENT INFO: ID #: [id number] : [id number] (47 yrs)(F) Name: NATALIYA MORFIN Visit Date: 10/01/2022 02:08 pm PERFORMED BY: Attending: Dawn Sanchez MD Resident: Nato Godoy MD Performed By: Monster Bhatia RDMS Referred By: SHAKA HOOVER Location: [place] SERVICE(S) PROVIDED: URETRO - Retroperitoneal Complete - [id number] INDICATIONS: long-standing lithium use and CKD, requested [...] Dawn Sanchez MD at 10/01/2022 7:46 PM Thank you for letting us participate in the care of this patient. If you are a health care provider and have any questions regarding this report, please contact the number above. For patients who have questions, please contact the health child care center administrator that requested your imaging first. Dawn Sanchez, [facility] Synthetic Staple Extruder Electronically Signed Final Report 10/01/2022 07:53 pm Shaka Hoover MD IMG US GEN ORDERABLE S documented in this encounter Visit Diagnoses Diagnosis Stage 3b chronic kidney disease (CKD) documented in this encounter Care Teams Airline Reservationist Relationship Specialty Start Date End Date Haylie Steward MD [facility] [place] [address] PCP - General General Internal Medicine 08/04/22 documented as of this encounter
--- OUTSIDE RECORDS SUMMARY | 2024-04-29 01:57 | XMS_ITS | Encounter Summary ---
Author Organization [facility] [place] [address] Care Team Providers Care Brick Wheeler Name Role Phone Haylie Steward MD Primary Care Provider + [phone] Encounter Details Date Type Department Care Team (Latest Contact Info) Description 10/01/2022 2:30 PM EDT Office Visit Ne[place] [phone] Sharmin Jean-Baptiste APRN [facility] [place] [address] Stage 3b chronic kidney disease (CKD) Social [...] encounter Progress Notes * Sharmin Jean-Baptiste, EXTENSION SPECIALIST - 10/01/2022 2:30 PM EDT Nephrology/Hypertension Clinic Follow-up Note [id number] ID: 47 y.o.year-old female for follow up of CKD. Past Medical History: Patient Active Problem List Diagnosis Code Stage 3b chronic kidney disease (CKD) N18.32 Hyperparathyroidism E21.3 Anemia D64.9 Wrenshall intoxication, accidental or unintentional, initial encounter T56.891A [...] Patient states it affects her bipolar medication Wrenshall. Interim history - Patient was last seen [...] Negative mcL Appearance UA Clear Clear Spec [place] UA 1.006 1.005 - 1.030 Color UA [...] stopped. Recent renal ultrasound results consistent with buttermaker lithium use. Risk factors for worsening renal function reviewed. Discussed importance of good blood pressure control, adequate hydration, and avoidance of NSAIDs.No clinical indication for SHUTDOWN COORDINATOR. HTN -BP adequately controlled. No history of [...] questions or concerns. >the total time spent [id number] AND total time the provider spent counseling was 30 minutes. CC: Haylie Steward MD @[email or web address]@ documented in this encounter Plan of Treatment Upcoming Encounters Date Type Department Care Team (Latest Contact Info) Description 04/29/2024 3:00 PM EST Scheduled View Only Radiation Oncology at [address] [phone] 05/02/2024 3:45 PM EST Scheduled View Only Radiation Oncology at [address] [phone] 05/03/2024 1:45 PM EST Scheduled View Only Radiation Oncology at [address] [phone] 05/03/2024 2:15 PM EST Office Visit Radiation Oncology at [address] [address] Ofe Fonseca MD [facility] [place] [address] 05/05/2024 8:15 AM EST Scheduled View Only Radiation Oncology at [address] [address] 05/06/2024 12:30 PM EST Scheduled View Only Radiation Oncology at [address] [phone] 05/09/2024 12:30 PM EST Scheduled View Only Radiation Oncology at [address] [address] 05/10/2024 2:30 PM EST Scheduled View Only Radiation Oncology at [address] [phone] 05/10/2024 3:15 PM EST Office Visit Radiation Oncology at [address] [address] Ofe Fonseca MD [facility] [place] [address] 05/11/2024 2:30 PM EST Scheduled View Only Radiation Oncology at [address] [address] 05/11/2024 3:15 PM EST Scheduled View Only Radiation Oncology at [address] [address] Ofe Fonseca MD [facility] [place] [address] 05/12/2024 2:45 PM EST Scheduled View Only Radiation Oncology at [address] [address] 06/03/2024 3:30 PM EST Appointment Ultrasound at [address] Mira Hutchison, [facility] [place] [address] 06/23/2024 4:00 PM EST Appointment Mammography/DXA at [place] [phone] Miryam Feliciano MD [facility] [place] [place] [address] 07/12/2024 8:00 AM EDT Laboratory Appointment Lab [address] [place] [address] 07/12/2024 9:30 AM EDT Office Visit [place] [address] Sharmin Jean-Baptiste [facility] [place] [address] 07/13/2024 10:30 AM EDT Laboratory Appointment Lab at [facility] Hematology Oncology [address] [place], [place] [phone] 07/13/2024 11:30 AM EDT Office Visit Hematology and Oncology at [place] [phone] Salena Alvares [facility] [place] [address] 07/13/2024 12:45 PM EDT Appointment Hematology and Oncology at [place] [phone] documented as of this encounter Procedures Procedure [...] 3:06 PM EDT) Neutrophil % 67.1 % [facility] Neutrophil Absolute 4.65 1.70 - 6.10 x10(3)/[facility] LABORATORY Lymph % 24.2 % [facility] Lymphocytes Abs 1.7 0.9 - 3.2 x10(3)/[facility] LABORATORY Monocyte % 6.3 % [facility] Monocyte Abs 0.4 0.3 - 0.9 x10(3)/[facility] LABORATORY Eos % 1.9 % [facility] Eosinophils Abs 0.1 0.0 - 0.4 x10(3)/[facility] LABORATORY Basophil % 0.4 % [facility] ITAL LAB[facility]AT[facility] Baso Absolute 0.0 0.0 - 0.1 x10(3)/[facility] LABORATORY Immature Gran % 0.10 % [facility] Comment: Immature granulocytes(IG's)percentage and absolute count will include metamyelocytes, myelocytes, and promyelocytes. Blood smears from CBCs yielding IG's will be scanned manually for concordance. If this scan disagrees with the automated IG or if promyelocytes are noted, a manual differential will be performed. Immature Gran Absolute 0.01 0.00 - 0.04 x10(3)/[facility] LABORATORY Blood 10/01/2022 3:06 PM EDT 10/01/2022 3:19 PM EDT Narrative Resulting Agency Comment Spec In Lab Sharmin Jean-Baptiste EXTENSION SPECIALIST HEMATOLOGY ORDERA BLES [facility] [place] [address] * (ABNORMAL) Hemogram (10/01/2022 3:06 PM EDT) White Blood Cell 6.9 4.0 - 9.5 x10(3)/ L [facility] Red Blood Cell 4.63 4.00 - 5.21 x10(6)/[facility] LABORATORY Hemoglobin 11.5(L) 11.7 - 15.5 g/dL [facility] Hematocrit 38.4 35.7 - 45.8 % [facility] Mean Cell Volume 82.9 82.6 - 94.4 fL [facility] Mean Cell Hemoglobin 24.8(L) 27.1 - 32.0 pg [facility] Mean Cell Hemoglobin Concentration 29.9(L) 31.7 - 35.0 g/dL [facility] Platelet 287 145 - 357 x10(3)/ L [facility] RDW Standard Deviation 53.2(H) 37.0 - 46.0 fL [facility] RDW coefficient of variation 17.6(H) 11.5 - 14.1 % [facility] Mean Platelet Volume 9.9 7.6 - 12.9 fL [facility] NRBC% auto 0.0 % [facility] LAB[facility]AT[facility] NRBC Absolute 0.000 0.000 - 0.000 x10(3)/mc L [facility] Blood 10/01/2022 3:06 PM EDT 10/01/2022 3:19 PM EDT Narrative Resulting Agency Comment Spec In Lab Sharmin L Estiven EXTENSION SPECIALIST HEMATOLOGY ORDERA BLES Performing Organization Address City/[facility]/ZIP Co de Phone Number [facility] [place] [address] * Vitamin D, 25-Hydroxy (10/01/2022 3:06 PM EDT) Vitamin D Total 25 OH 36 21 - 100 ng/mL [facility] Vit D Interp Sufficient [facility] Blood 10/01/2022 3:06 PM EDT 10/01/2022 3:19 PM EDT Narrative Resulting Agency Comment Spec In Lab Sharmin L Estiven EXTENSION SPECIALIST CHEMISTRY ORDERAB LES Performing Organization Address City/[facility]/ZIP Co de Phone Number [facility] [place] [address] * (ABNORMAL) PTH (10/01/2022 3:06 PM EDT) Parathyroid Hormone 125(H) 15 - 65 pg/mL [facility] Blood 10/01/2022 3:06 PM EDT 10/01/2022 3:19 PM EDT Narrative Resulting Agency Comment Spec In Lab Sharmin L Estiven EXTENSION SPECIALIST CHEMISTRY ORDERAB LES Performing Organization Address City/[facility]/ZIP Co de Phone Number [facility] [place] [address] * Phosphorus (10/01/2022 3:06 PM EDT) Phosphorus 4.0 2.5 - 4.5 mg/dL [facility] Blood 10/01/2022 3:06 PM EDT 10/01/2022 3:19 PM EDT Narrative Resulting Agency Comment Spec In Lab Sharmin Jean-Baptiste EXTENSION SPECIALIST CHEMISTRY ORDERAB LES [facility] [place] [address] * (ABNORMAL) Iron and TIBC (10/01/2022 3:06 PM EDT) [facility] Signature Iron 27(L) 30 - 150 mcg/dL [facility] TIBC 429 250 - 450 mcg/dL [facility] Iron Saturation 6(L) 20 - 50 % [facility] Blood 10/01/2022 3:06 PM EDT 10/01/2022 3:19 PM EDT Narrative Resulting Agency Comment Spec In Lab Sharmingilberto Jean-Baptiste EXTENSION SPECIALIST CHEMISTRY ORDERAB LES Performing Organization Address City/[facility]/ZIP Co de Phone Number [facility] [place] [address] * (ABNORMAL) Ferritin (10/01/2022 3:06 PM EDT) [facility] Ferritin 12(L) 15 - 150 ng/mL [facility] Comment: Pediatric reference ranges not verified at [facility], interpret with caution. Reference ranges for females greater than 50 years of age approach values for men, i.e., 30-400 ng/mL. Blood 10/01/2022 3:06 PM EDT 10/01/2022 3:19 PM EDT Narrative Resulting Agency Comment Spec In Lab Sharmingilberto Jean-Baptiste EXTENSION SPECIALIST CHEMISTRY ORDERAB LES Performing Organization Address City/[facility]/ZIP Co de Phone Number [facility] [place] [address] * (ABNORMAL) Basic Metabolic Panel (non-fasting) (10/01/2022 3:06 PM EDT) Glucose 75 65 - 199 mg/dL [facility] Comment:Diabetes: >=200 mg/d L plus symptoms Blood Urea Nitrogen 34(H) 8 - 18 mg/dL [facility] Creatinine 1.14 0.70 - 1.20 mg/dL [facility] Sodium 148(H) 135 - 145 mmol/L [facility] Potassium 4.5 3.5 - 5.0 mmol/L [facility] Comment: Please note: ??Patients with WBC >100,000 may have falsely elevated Potassium levels. ??For accurate Potassium quantification in these patients send serum separator tube (gold top) for subsequent determinations. ??Contact the Clinical Chemistry Laboratory if there are any questions. Chloride 113(H) 98 - 107 mmol/L [facility] Carbon Dioxide 19(L) 22 - 31 mmol/L [facility] Anion Gap 16(H) 5 - 15 mmol/L [facility] Calcium 10.5 8.5 - 10.5 mg/dL [facility] Est Glomerular Filtration Rate 59(L) >=60 mL/min/1. 73 m?? [facility] Comment: This patient's estimated GFR was [...] Comment Spec In Lab Sharmin Jean-Baptiste EXTENSION SPECIALIST CHEMISTRY ORDERAB LES [facility] [place] [address] * Albumin Level (10/01/2022 3:06 PM EDT) Albumin 4.4 3.2 - 5.2 g/dL [facility] Blood 10/01/2022 3:06 PM EDT 10/01/2022 3:19 PM EDT Narrative Resulting Agency Comment Spec In Lab Sharmin Jean-Baptiste EXTENSION SPECIALIST CHEMISTRY ORDERAB LES Performing Organization Address City/[facility] Co de Phone Number [facility] [place] [address] * Protein/Creatinine Ratio, urine (10/01/2022 2:30 PM EDT) Creatinine, Urine 10 mg/dL [facility] Protein, Urine <6 0 - 12 mg/dL [facility] Protein / Creatinine Ratio, Urine <0.6 ratio [facility] Urine 10/01/2022 2:30 PM EDT 10/01/2022 3:47 PM EDT Narrative Resulting Agency Comment Spec In Lab Sharmin Jean-Baptiste EXTENSION SPECIALIST URINE ORDERABLES Performing Organization Address [facility] Co de Phone Number [facility] [place] [address] * _Urinalysis with microscopic (10/01/2022 2:30 PM EDT) Glucose, Urine Dipstick Negative Negative mg/dL [facility] Protein, Urine Dipstick Negative Negative mg/dL [facility] Bilirubin, Urine Dipstick Negative Negative mg/dL [facility] Comment: Clinical correlation required for positive Urine Bilirubin results as false positive may occur with some drugs and drug related products. If a false positive is suspected a serum total bilirubin should be considered if clinically indicated. Urobilinogen, Urine Dipstick Normal Normal mg/dL [facility] pH, Urn (dipstick) 7.0 5.0 - 8.0 [facility] Blood, Urine Dipstick Negative Negative mg/dL [facility] Ketone, Urine Dipstick Negative Negative mg/dL [facility] Nitrite, Urine Dipstick Negative Negative [facility] Leukocytes, Urine Dipstick Negative Negative mcL [facility] Appearance, Urine Dipstick Clear Clear [facility] Specific [place] Urine Automated 1.006 1.005 - 1.030 [facility] Color, Urine Dipstick Yellow Yellow [facility] RBC, Urine 1 0 - 4 /HPF [facility] WBC, Urine 1 0 - 5 /HPF [facility] Squamous Epithelial Cells Raw Data, Urine 1 <=4 /HPF [facility] Urine 10/01/2022 2:30 PM EDT 10/01/2022 3:47 PM EDT Narrative Resulting Agency Comment Spec In Lab Sharmin Jean-Baptiste EXTENSION SPECIALIST URINE ORDERABLES [facility] [place] [address] documented in this encounter Visit Diagnoses Diagnosis Stage 3b chronic kidney disease (CKD) documented in this encounter Care Teams Brick Wheeler Relationship Specialty Start Date End Date Haylie Steward MD [facility] [place] [address] PCP - General General Internal Medicine 08/04/22 documented as of this encounter
--- OUTSIDE RECORDS SUMMARY | 2024-04-29 01:57 | XMS_ITS | Encounter Summary ---
[place] [address] Care Team Providers Care Leak Operator Paraffin Plant Name Role Phone Haylie Steward MD Primary Care Provider [phone] Encounter Details Date Type Department Care Team (Latest Contact Info) Description 09/26/2022 8:55 AM EDT Laboratory Appointment Lab [address] [place] [id number] Bipolar 1 disorder Social History Tobacco Use [...] Scheduled View Only Radiation Oncology at [address] [phone] 05/02/2024 3:45 PM EST Scheduled View Only Radiation Oncology at [address] [address] 05/03/2024 1:45 PM EST Scheduled View Only Radiation Oncology at [address] [address] 05/03/2024 2:15 PM EST Office Visit Radiation Oncology at [address] [address] Ofe Fonseca MD [facility] [place] [place] [address] 05/05/2024 8:15 AM EST Scheduled View Only Radiation Oncology at [address] [address] 05/06/2024 12:30 PM EST Scheduled View Only Radiation Oncology at [address] [address] 05/09/2024 12:30 PM EST Scheduled View Only Radiation Oncology at [address] [address] 05/10/2024 2:30 PM EST Scheduled View Only Radiation Oncology at [address] [address] 05/10/2024 3:15 PM EST Office Visit Radiation Oncology at [address] [address] Ofe Fonseca MD [facility] [place] [address] 05/11/2024 2:30 PM EST Scheduled View Only Radiation Oncology at [address] [address] 05/11/2024 3:15 PM EST Scheduled View Only Radiation Oncology at [address] [phone] Ofe Fonseca MD [facility] [place] [address] 05/12/2024 2:45 PM EST Scheduled View Only Radiation Oncology at [address] [phone] 06/03/2024 3:30 PM EST Appointment Ultrasound at [place] [phone] Mira Hutchison GROUP COUNSELOR [facility] [address] 06/23/2024 4:00 PM EST Appointment Mammography/DXA at [place] [phone] Miryam Feliciano MD [facility] [place] [address] 07/12/2024 8:00 AM EDT Laboratory Appointment Lab [address] [place], [place] [phone] 07/12/2024 9:30 AM EDT Office Visit Nephrology Hypertension at [place] [phone] Sharmin Jean-Baptiste [facility] [place] [address] 07/13/2024 10:30 AM EDT Laboratory Appointment Lab at [facility] Hematology Oncology [address] [place] [phone] 07/13/2024 11:30 AM EDT Office Visit Hematology [place] [address] Salena Alvares [facility] [place] [address] 07/13/2024 12:45 PM EDT Appointment Hematology [place] [address] documented as of this encounter Procedures Procedure Name Priority Date/Time Associated Diagnosis Comments LAMOTRIGINE LVL Routine 09/26/2022 8:44 AM EDT Bipolar 1 disorder VALPROIC ACID LEVEL, TOTAL Routine 09/26/2022 8:44 AM EDT Bipolar 1 disorder HEPATIC FUNCTION PANEL Routine 09/26/2022 8:44 AM EDT Bipolar 1 disorder documented in this encounter Results * Lamotrigine Lvl (09/26/2022 8:44 AM EDT) Lamotrigine Lvl (SEPTEMBER) 5.8 3.0 - 15.0 mcg/mL [facility] Comment: ADDITIONAL INFORMATION This test was developed and its performance characteristics determined by [facility] in a manner consistent with CLIA requirements. This test has not been cleared or approved by the U.S. Food and Drug Administration. Test Performed by: [facility] - [place] [id number] Call Circuit Worker: Owen Zurita M.D. Ph.D.; CLIA# [id number] Blood 09/26/2022 8:44 AM EDT 09/26/2022 1:45 PM EDT Narrative Resulting Agency Comment Spec In Lab Michelet Monge MD LAB SEND OUT ORDERAB LES [facility] [place] [address] * Valproic Acid Level, Total (09/26/2022 8:44 AM EDT) Valproic Acid 62 mg/L [facility] Comment: Therapeutic Range: Anticonvulsant Therapy: ??50-100 mg/L Manic Episodes Associated with Bipolar Disorder: ??50-125 mg/L Blood 09/26/2022 8:44 AM EDT 09/26/2022 8:49 AM EDT Narrative Resulting Agency Comment Spec In Lab Michelet Monge MD CHEMISTRY ORDERABLES Performing Organization Address [facility] Co de Phone Number [facility] [place] [address] * (ABNORMAL) Hepatic Function Panel (09/26/2022 8:44 AM EDT) Protein, Total 6.8 6.1 - 8.0 g/dL [facility] Albumin 4.2 3.2 - 5.2 g/dL [facility] Aspartate Aminotransferase 12 0 - 30 unit/L [facility] Alanine Aminotransferase 13 0 - 30 unit/L [facility] Alkaline Phosphatase 99 35 - 105 unit/L [facility] Bilirubin, Total <0.2(L) 0.2 - 1.3 mg/dL [facility] Bilirubin, Direct <0.1 0.0 - 0.3 mg/dL [facility] Blood 09/26/2022 8:44 AM EDT 09/26/2022 8:49 AM EDT Narrative Resulting Agency Comment Spec In Lab Michelet Monge MD CHEMISTRY ORDERABLES Performing Organization Address City/[facility] Co de Phone Number [facility] [place] [address] documented in this encounter Visit Diagnoses Diagnosis Bipolar 1 disorder Bipolar I disorder, most recent episode (or current) unspecified documented in this encounter Care Teams Leak Operator Paraffin Plant Relationship Specialty Start Date End Date [place] [address] [place] [address] PCP - General General Internal Medicine 08/04/22 documented as of this encounter
--- OUTSIDE RECORDS SUMMARY | 2024-04-29 01:57 | XMS_ITS | Encounter Summary ---
Author Organization Formerly [facility] [place] [address] Care Team Providers Care Guard Museum Name Role Phone Haylie Steward MD Primary Care Provider + [phone] Encounter Details Date Type Department Care Team (Late st Contact Info) Description 12/15/2022 Orders Only [place] [phone] Betina Varma, OIL AND GAS FIELD TECHNICIAN [facility] [place] [address] Social History Tobacco Use Types Packs/Day Years Used Date Smoking Tobacco: Never Smokeless Tobacco: Never Alcohol Use Standard Drinks/Week Comments Not Currently 0 (1 standard drink = 0.6 oz pur e alcohol) [facility] Inpatient Questions Answer Date Recorded [...] Scheduled View Only Radiation Oncology at [address] [address] 05/02/2024 3:45 PM EST Scheduled View Only Radiation Oncology at [address] [address] 05/03/2024 1:45 PM EST Scheduled View Only Radiation Oncology at [address] [address] 05/03/2024 2:15 PM EST Office Visit Radiation Oncology at [address] [address] Ofe Fonseca MD [facility] [place] [address] 05/05/2024 8:15 AM EST Scheduled View Only Radiation Oncology at [address] [address] 05/06/2024 12:30 PM EST Scheduled View Only Radiation Oncology at [address] [address] 05/09/2024 12:30 PM EST Scheduled View Only Radiation Oncology at [address] [address] 05/10/2024 2:30 PM EST Scheduled View Only Radiation Oncology at [address] [address] 05/10/2024 3:15 PM EST Office Visit Radiation Oncology at [address] [address] Ofe Fonseca MD [facility] [place] [address] 05/11/2024 2:30 PM EST Scheduled View Only Radiation Oncology at [address] [address] 05/11/2024 3:15 PM EST Scheduled View Only Radiation Oncology at [address] [phone] Ofe Fonseca MD [facility] DR [place] [address] 05/12/2024 2:45 PM EST Scheduled View Only Radiation Oncology at [address] [phone] 06/03/2024 3:30 PM EST Appointment Ultrasound at [place] [phone] Mira Hutchison OIL AND GAS FIELD TECHNICIAN [facility] [place] [address] 06/23/2024 4:00 PM EST Appointment Mammography/DXA at [place] [phone] Miryam Feliciano MD [facility] DR [place] [address] 07/12/2024 8:00 AM EDT Laboratory Appointment Lab [address] [place], [place] [phone] 07/12/2024 9:30 AM EDT Office Visit Nephrology Hypertension at [place] [phone] Sharmin Jean-Baptiste [facility] [place] [address] 07/13/2024 10:30 AM EDT Laboratory Appointment Lab at [facility] [place] On[place] [address] [place] [phone] 07/13/2024 11:30 AM EDT Office Visit Hematology and Oncology at [place] [phone] Salena Alvares APRN [facility] DR [place] [address] 07/13/2024 12:45 PM EDT Appointment Hematology [place] [address] documented as of this encounter Procedures Procedure Name Priority Date/Time Associated Diagnosis Comments RUBELLA ANTIBODY, IGG Routine 12/15/2022 4:56 PM EDT documented in this encounter Results * Rubella Antibody, IgG (12/15/2022 4:56 PM EDT) Rubella Antibody IgG Positive Positive [facility] Comment: Please note: ??A positive result for this assay indicates that antibody levels are >or= 10.0 IU/mL and is considered to be an indicator of positive immune status. Blood Venous Draw / Unknown 12/15/2022 4:56 PM EDT 12/15/2022 5:20 PM EDT Narrative Resulting Agency Comment Spec In Lab Betina Varma OIL AND GAS FIELD TECHNICIAN CHEMISTRY ORDERABLES [facility] [place] [address] documented in this encounter Visit Diagnoses Not on filedocumented in this encounter Care Teams Guard Museum Relationship Specialty Start Date End Date Haylie Steward MD [facility] [place] [address] PCP - General General Internal Medicine 08/04/22 documented as of this encounter
--- OUTSIDE RECORDS SUMMARY | 2024-04-29 01:57 | XMS_ITS | Encounter Summary ---
[place] [address] Care Team Providers Care Manager Internet Name Role Phone Haylie Steward MD Primary Care Provider + [phone] Reason for Referral * Consultation (Urgent) - Closed Specialty Diagnoses / Procedures Referred By Contac t Referred To Contact Gastroenterology Diagnoses Irritable bowel syndrome, unspecified type Haylie Steward MD [facility] [place] [address] [facility] [place] [address] Referral ID Status Reason Start Date Expiration Date V isits Requested Visits Authorized [id number] Closed Consult, Test & Treat PCP Updated and/or Approved 12/17/2022 12/18/2023 12 12 Encounter Details Date Type Department Care Team (Late st Contact Info) Description 12/18/2022 Transcribe Orders eDH Incoming Referrals [phone] Haylie Steward MD [facility] [place] [address] Irritable bowel syndrome, unspecified type Social History Tobacco Use Types Packs/Day Years Used Date Smoking Tobacco: Never Smokeless Tobacco: Never Alcohol Use Standard Drinks/Week Comments Not Currently 0 (1 standard drink = 0.6 oz pur e alcohol) [facility] Inpatient Questions Answer Date Recorded Does [...] Scheduled View Only Radiation Oncology at [address] [address] 05/02/2024 3:45 PM EST Scheduled View Only Radiation Oncology at [address] [address] 05/03/2024 1:45 PM EST Scheduled View Only Radiation Oncology at [address] [address] 05/03/2024 2:15 PM EST Office Visit Radiation Oncology at [address] [address] Ofe Fonseca MD [facility] [place] [address] 05/05/2024 8:15 AM EST Scheduled View Only Radiation Oncology at [address] [address] 05/06/2024 12:30 PM EST Scheduled View Only Radiation Oncology at [address] [address] 05/09/2024 12:30 PM EST Scheduled View Only Radiation Oncology at [address] [address] 05/10/2024 2:30 PM EST Scheduled View Only Radiation Oncology at [address] [address] 05/10/2024 3:15 PM EST Office Visit Radiation Oncology at [address] [address] Ofe Fonseca MD [facility] [place] [address] 05/11/2024 2:30 PM EST Scheduled View Only Radiation Oncology at [address] [address] 05/11/2024 3:15 PM EST Scheduled View Only Radiation Oncology at [address] [address] Ofe Fonseca MD [facility] [place] [address] 05/12/2024 2:45 PM EST Scheduled View Only Radiation Oncology at [address] [address] 06/03/2024 3:30 PM EST [place] [phone] Mira Hutchison APRN [facility] [place] [address] 06/23/2024 4:00 PM EST Appointment Mammography/[place] [phone] Miryam Feliciano MD [facility] [place] [address] 07/12/2024 8:00 AM EDT Laboratory Appointment Lab [place] [phone] 07/12/2024 9:30 AM EDT Office Visit [place] [phone] Sharmin Jean-Baptiste, [facility] [place] [address] 07/13/2024 10:30 AM EDT Laboratory Appointment Lab at [facility] [place] Oncology [address] [place], [place] [phone] 07/13/2024 11:30 AM EDT Office Visit Hematology and Oncology at [place] [phone] Salena Alvares, [facility] [place] [address] 07/13/2024 12:45 PM EDT Appointment Hematology and Oncology at [place] [phone] Scheduled Referrals Name Type Priority Associated Diagnoses Order Schedule Referral to Gastroenterology Outpatient Referral Urgent Irritable bowel syndrome, unspecified type Ordered: 12/18/2022 documented as of this encounter Visit Diagnoses Diagnosis Irritable bowel syndrome, unspecified type documented in this encounter Care Teams Manager Internet Relationship Specialty Start Date [place] [address] PCP - General General Internal Medicine 08/04/22 documented as of this encounter
--- OUTSIDE RECORDS SUMMARY | 2024-04-29 01:57 | XMS_ITS | Encounter Summary ---
Author Organization [facility] [address] Care Team Providers Care Power Generation Engineer Name Role Phone Haylie Steward MD Primary Care Provider [phone] Encounter Details Date Type Department Care Team [...] Scheduled View Only Radiation Oncology at [address] [address] 05/02/2024 3:45 PM EST Scheduled View Only Radiation Oncology at [address] [address] 05/03/2024 1:45 PM EST Scheduled View Only Radiation Oncology at [address] [address] 05/03/2024 2:15 PM EST Office Visit Radiation Oncology at [address] [address] Ofe Fonseca MD [facility] [place] [address] 05/05/2024 8:15 AM EST Scheduled View Only Radiation Oncology at [address] [address] 05/06/2024 12:30 PM EST Scheduled View Only Radiation Oncology at [address] [address] 05/09/2024 12:30 PM EST Scheduled View Only Radiation Oncology at [address] [address] 05/10/2024 2:30 PM EST Scheduled View Only Radiation Oncology at [address] [address] 05/10/2024 3:15 PM EST Office Visit Radiation Oncology at [address] [address] Ofe Fonseca MD [facility] [place] [address] 05/11/2024 2:30 PM EST Scheduled View Only Radiation Oncology at [address] [address] 05/11/2024 3:15 PM EST Scheduled View Only Radiation Oncology at [address] [address] Ofe Fonseca MD [facility] [place] [address] 05/12/2024 2:45 PM EST Scheduled View Only Radiation Oncology at [address] [address] 06/03/2024 3:30 PM EST Appointment Ultrasound at [place] [phone] Mira Hutchison [facility] [place] [address] 06/23/2024 4:00 PM EST Appointment Mammography/DXA at [place] [phone] Miryam Feliciano MD [facility] [place] [address] 07/12/2024 8:00 AM EDT Laboratory Appointment Lab [address] [place], [place] [phone] 07/12/2024 9:30 AM EDT Office Visit Nephrology Hypertension at [place] [phone] Sharmin Jean-Baptiste, [facility] [place] [address] 07/13/2024 10:30 AM EDT Laboratory Appointment Lab at [facility] Hematology Oncology [address] [place] [phone] 07/13/2024 11:30 AM EDT Office Visit Hematology [place] [phone] Salena Alvares [facility] [place] [address] 07/13/2024 12:45 PM EDT Appointment Hematology [place] [phone] documented as of this encounter Visit Diagnoses Not on filedocumented in this encounter Care Teams Power Generation Engineer Relationship Specialty Start Date End Date Haylie Steward MD [facility] [place] [address] PCP - General General Internal Medicine 08/04/22 documented as of this encounter
--- OUTSIDE RECORDS SUMMARY | 2024-04-29 01:57 | XMS_ITS | Encounter Summary ---
Author Organization Formerly [facility] [place] [address] Care Team Providers Care Automatic Tire Tester Name Role Phone Haylie Steward MD Primary Care Provider + [phone] Encounter Details Date Type Department Care Team (Late st Contact Info) Description 12/15/2022 Orders Only [place] [phone] Betina Varma, PERSONNEL RESEARCH SCIENTIST [facility] [place] [address] Social History Tobacco Use Types Packs/Day Years Used Date Smoking Tobacco: Never Smokeless Tobacco: Never Alcohol Use Standard Drinks/Week Comments Not Currently 0 (1 standard drink = 0.6 oz pur e alcohol) [facility] Inpatient Questions Answer Date Recorded Does [...] Scheduled View Only Radiation Oncology at [address] [address] 05/02/2024 3:45 PM EST Scheduled View Only Radiation Oncology at [address] [address] 05/03/2024 1:45 PM EST Scheduled View Only Radiation Oncology at [address] [address] 05/03/2024 2:15 PM EST Office Visit Radiation Oncology at [address] [address] Ofe Fonseca MD [facility] [place] [address] 05/05/2024 8:15 AM EST Scheduled View Only Radiation Oncology at [address] [address] 05/06/2024 12:30 PM EST Scheduled View Only Radiation Oncology at [address] [address] 05/09/2024 12:30 PM EST Scheduled View Only Radiation Oncology at [address] [address] 05/10/2024 2:30 PM EST Scheduled View Only Radiation Oncology at [address] [address] 05/10/2024 3:15 PM EST Office Visit Radiation Oncology at [address] [address] Ofe Fonseca MD [facility] [place] [address] 05/11/2024 2:30 PM EST Scheduled View Only Radiation Oncology at [address] [address] 05/11/2024 3:15 PM EST Scheduled View Only Radiation Oncology at [address] [phone] Ofe Fonseca MD [facility] [place] [address] 05/12/2024 2:45 PM EST Scheduled View Only Radiation Oncology at [address] [phone] 06/03/2024 3:30 PM EST Appointment Ultrasound at [place] [phone] Mira Hutchison PERSONNEL RESEARCH SCIENTIST [facility] [address] 06/23/2024 4:00 PM EST Appointment Mammography/DXA at [place] [phone] Miryam Feliciano MD [facility] [place] [address] 07/12/2024 8:00 AM EDT Laboratory Appointment Lab [address] [place], [place] [phone] 07/12/2024 9:30 AM EDT Office Visit Nephrology Hypertension at [place] [phone] Sharmin Jean-Baptiste [facility] [place] [address] 07/13/2024 10:30 AM EDT Laboratory Appointment Lab at [facility] [place] Hematology Oncology [address] [place] [phone] 07/13/2024 11:30 AM EDT Office Visit Hematology and Oncology at [place] [phone] Salena Alvares APRN [facility] [place] [address] 07/13/2024 12:45 PM EDT Appointment Hematology [place] [address] documented as of this encounter Procedures Procedure Name Priority Date/Time Associated Diagnosis Comments MUMPS ANTIBODY, IGG Routine 12/15/2022 4 :56 PM EDT documented in this encounter Results * Mumps Antibody, IgG (12/15/2022 4:56 PM EDT) Mumps Antibody IgG Positive Positive [facility] Comment: A positive result for this assay is considered to be an indicator of positive immune status. Blood Venous Draw / Unknown 12/15/2022 4:56 PM EDT 12/16/2022 7:18 AM EDT Narrative Resulting Agency Comment Spec In Lab Betina Varma PERSONNEL RESEARCH SCIENTIST IMMUNOLOGY ORDERABLE S [facility] [place] [address] documented in this encounter Visit Diagnoses Not on filedocumented in this encounter Care Teams Automatic Tire Tester Relationship Specialty Start Date End Date Haylie Steward MD [facility] [place] [address] PCP - General General Internal Medicine 08/04/22 documented as of this encounter
--- OUTSIDE RECORDS SUMMARY | 2024-04-29 01:57 | XMS_ITS | Encounter Summary ---
Author Organization [facility] [place] [address] Care Team Providers Care Environmental Emergencies Assistant Name Role Phone Haylie Steward MD Primary Care Provider + [phone] Reason for Visit * Consultation (Urgent) - Closed Specialty Diagnoses / Procedures Referred By Contac t Referred To Contact Gastroenterology Diagnoses Irritable bowel syndrome, unspecified type Haylie Steward [place] [address] [place] [address] [facility] [place] [address] Referral ID Status Reason Start Date Expiration Date V isits Requested Visits Authorized [id number] Closed Consult, Test & Treat PCP Updated and/or Approved 12/17/2022 12/18/2023 12 12 Encounter Details Date Type Department Care Team (Latest Contact Info) Description 12/29/2022 8:05 AM EDT TH Visit (TeleHealth) [place] [phone] Lyssa Euceda, RN HOME HEALTH [facility] [place] [address] Iron deficiency anemia, unspecified iron [...] of this encounter Progress Notes * Ok Lyssa Edwina, RN HOME HEALTH - 12/29/2022 8:05 AM EDT Gastroenterology Rapid Access Clinic (telemedicine) Chief Complaint: Nataliya Morfin is a 47 y.o. patient referred for consultation by Dr. Steward for [place] 1 stools while on Lotronex. History of Present Illness: 47 y.o. female with longstanding IBS concerned about [place] 1 stools while taking lotronex, and Iron [...] well. She tells me she will have [place] one stool, then a regular stool, does have to bear down No thin caliper stools Last colonoscopy in [place] in 2019 geri No family history of colon cancer. No personal history of polyps. No known family hx of leaf sucker operator malignancy. Has some symptoms of hb and reflux. She is taking pepcid as needed which works well for her. No dysphagia Aooetite is normal No unintentional weight loss Other than slightly harder stools she feels well. Has some cramps prior to [place] 1 stools. Relevant prior GI evaluation Colonoscopy [...] disease (CKD) N18.32 Hyperparathyroidism E21.3 Anemia D64.9 Yolo intoxication, accidental or unintentional, initial encounter T56.891A [...] earlier this spring she developed more frequent [place] 1 stools. She does have an FLOR which has not been investigated from spencer standpoint yet. Symptoms seem to coincide with medication changes. Given she is having [place] 1 stools would hold further lotronex dosing. Discussed stopping lotronex. Continue iron-ordered as twice daily dosing per nephrology. Will order colo/endo for evaluation of FLOR. Her last scope was a few years ago. Has never had an endoscopy. Plan: -[place]/endo to evaluate flor -Stop lotronex -Continue PO Iron, ok to take colace -Ensure adequate hydration -Remain active -High fiber diet. Please schedule with Motility or [facility] team after scopes are completed. This patient, if needed, will be scheduled for the next available clinic visit with a provider within the Gastroenterology Department at [facility]. If testing is being performed the follow-up will be after these results are reviewed. Patient should continue to seek help from their primary care team while waiting for any relevant testing and results. They have not been assigned a gastroenterology provider as of this triage visit. Lyssa Euceda APRN [facility] [place] [address] documented in this encounter Plan of Treatment Upcoming Encounters Date Type Department Care Team (Latest Contact Info) Description 04/29/2024 3:00 PM EST Scheduled View Only Radiation Oncology at [address] [address] 05/02/2024 3:45 PM EST Scheduled View Only Radiation Oncology at [address] [address] 05/03/2024 1:45 PM EST Scheduled View Only Radiation Oncology at [address] [address] 05/03/2024 2:15 PM EST Office Visit Radiation Oncology at [address] [address] Ofe Fonseca MD [facility] [place] [address] 05/05/2024 8:15 AM EST Scheduled View Only Radiation Oncology at [address] [address] 05/06/2024 12:30 PM EST Scheduled View Only Radiation Oncology at [address] [address] 05/09/2024 12:30 PM EST Scheduled View Only Radiation Oncology at [address] [address] 05/10/2024 2:30 PM EST Scheduled View Only Radiation Oncology at [address] [address] 05/10/2024 3:15 PM EST Office Visit Radiation Oncology at [address] [address] Ofe Fonseca MD [facility] [place] [address] 05/11/2024 2:30 PM EST Scheduled View Only Radiation Oncology at [address] [address] 05/11/2024 3:15 PM EST Scheduled View Only Radiation Oncology at [address] [address] Ofe Fonseca MD [facility] [place] [address] 05/12/2024 2:45 PM EST Scheduled View Only Radiation Oncology at [address] [address] 06/03/2024 3:30 PM EST Appointment [place] [phone] Mira Hutchison APRN [facility] [place] [address] 06/23/2024 4:00 PM EST Appointment Mammography/[place] [phone] Miryam Feliciano MD [facility] [place] [address] 07/12/2024 8:00 AM EDT Laboratory Appointment Lab [address] [address] 07/12/2024 9:30 AM EDT Office Visit Nephrology Hypertension at [place] [phone] Sharmin Jean-Baptiste, [facility] [place] [address] 07/13/2024 10:30 AM EDT Laboratory Appointment Lab at [facility] [place] Oncology [address] [place] [address] 07/13/2024 11:30 AM EDT Office Visit Hematology and Oncology at [place] [phone] Salena Alvares, [facility] [place] [address] 07/13/2024 12:45 PM EDT Appointment Hematology and Oncology at [place] [phone] Scheduled Orders Name Type Priority Associated Diagnoses Orde r Schedule ENDOSCOPY CASE REQUEST: EGD, UPPER GI ENDOSCOPY (WRVU 2.09), COLONOSCOPY, DIAGNOSTIC (WRVU 3.26) Procedures Routine Iron deficiency anemia, unspecified iron deficiency anemia type Ordered: 12/29/2022 documented as of this encounter Visit Diagnoses Diagnosis Iron deficiency anemia, unspecified iron deficiency anemia type documented in this encounter Care Teams Environmental Emergencies Assistant Relationship Specialty Start Date End Date [place] [address] PCP - General General Internal Medicine 08/04/22 documented as of this encounter
--- OUTSIDE RECORDS SUMMARY | 2024-04-29 01:57 | XMS_ITS | Encounter Summary ---
Author Organization [facility] [place] [address] Care Team Providers Care Learning Support Services Director Name Role Phone Haylie Steward MD Primary Care Provider [phone] Encounter Details Date Type Department Care Team (Late st Contact Info) Description 11/10/2022 Interpretation Only [address] [address] Haylie Steward MD [address] [place] [address] Social History Tobacco Use Types Packs/Day Years [...] Scheduled View Only Radiation Oncology at [address] [address] 05/02/2024 3:45 PM EST Scheduled View Only Radiation Oncology at [address] [address] 05/03/2024 1:45 PM EST Scheduled View Only Radiation Oncology at [address] [address] 05/03/2024 2:15 PM EST Office Visit Radiation Oncology at [address] [address] Ofe Fonseca MD [facility] RADI[place] [address] 05/05/2024 8:15 AM EST Scheduled View Only Radiation Oncology at [address] [address] 05/06/2024 12:30 PM EST Scheduled View Only Radiation Oncology at [address] [address] 05/09/2024 12:30 PM EST Scheduled View Only Radiation Oncology at [address] [address] 05/10/2024 2:30 PM EST Scheduled View Only Radiation Oncology at [address] [address] 05/10/2024 3:15 PM EST Office Visit Radiation Oncology at [address] [address] Ofe Fonseca MD [facility] [place] [address] 05/11/2024 2:30 PM EST Scheduled View Only Radiation Oncology at [address] [address] 05/11/2024 3:15 PM EST Scheduled View Only Radiation Oncology at [address] [phone] Ofe Fonseca MD [facility] DR RADIATION [place] [address] 05/12/2024 2:45 PM EST Scheduled View Only Radiation Oncology at [address] [phone] 06/03/2024 3:30 PM EST Appointment Ultrasound at [place] [phone] Mira Hutchison [employer] [facility] [place] [address] 06/23/2024 4:00 PM EST Appointment Mammography/DXA at [place] [phone] Miryam Feliciano MD [facility] DR MEDICAL [place] [address] 07/12/2024 8:00 AM EDT Laboratory Appointment Lab [address] [place], [place] [phone] 07/12/2024 9:30 AM EDT Office Visit Nephrology Hypertension at [place] [phone] Sharmin Jean-Baptiste [facility] [place] [address] 07/13/2024 10:30 AM EDT Laboratory Appointment Lab at [facility] Hematology Oncology [address] [place] [phone] 07/13/2024 11:30 AM EDT Office Visit Hematology and Oncology at [place] [phone] Salena Alvares APRN [facility] MEDICAL [place] [address] 07/13/2024 12:45 PM EDT Appointment Hematology [place] [phone] documented as of this encounter Procedures Procedure Name Priority Date/Time Associated Diagnosis Comments MAMMO SCREENING CAD BILATERAL Routine 11/10/2022 1:35 PM EDT documented in this encounter Results * Mammo Screening Cad Bilateral (11/10/2022 1:35 PM EDT) PT CLASS O DH RAD ADMITDTTM DH RAD PT DH RAD MD INFO [phone]^WI ATT^HAYLIE DH RAD EXAM DESC MADDSC^SCREEN MAMMO BL INCLUDES [...] questions please contact the health health care law specialist that requested your imaging first. ? [...] have questions please contactthe health health care law specialist that requested your imaging first. Haylie Steward MD IMG MAMMO ORDERABLES documented in this encounter Visit Diagnoses Not on filedocumented in this encounter Care Teams Learning Support Services Director Relationship Specialty Start Date End Date Haylie Steward MD [facility] [place] [address] PCP - General General Internal Medicine 08/04/22 documented as of this encounter
--- OUTSIDE RECORDS SUMMARY | 2024-04-29 01:57 | XMS_ITS | Encounter Summary ---
Author Organization [facility] [place] [address] Care Team Providers Care Finance Controller Name Role Phone Haylie Steward MD Primary Care Provider [phone] Encounter Details Date Type Department Care Team [...] Scheduled View Only Radiation Oncology at [address] [address] 05/02/2024 3:45 PM EST Scheduled View Only Radiation Oncology at [address] [address] 05/03/2024 1:45 PM EST Scheduled View Only Radiation Oncology at [address] [address] 05/03/2024 2:15 PM EST Office Visit Radiation Oncology at [address] [address] Ofe Fonseca MD [facility] [place] [address] 05/05/2024 8:15 AM EST Scheduled View Only Radiation Oncology at [address] [address] 05/06/2024 12:30 PM EST Scheduled View Only Radiation Oncology at [address] [address] 05/09/2024 12:30 PM EST Scheduled View Only Radiation Oncology at [address] [address] 05/10/2024 2:30 PM EST Scheduled View Only Radiation Oncology at [address] [address] 05/10/2024 3:15 PM EST Office Visit Radiation Oncology at [address] [address] Ofe Fonseca MD [facility] [place] [address] 05/11/2024 2:30 PM EST Scheduled View Only Radiation Oncology at [address] [address] 05/11/2024 3:15 PM EST Scheduled View Only Radiation Oncology at [address] [address] Ofe Fonseca MD [facility] RADIATION [place] [address] 05/12/2024 2:45 PM EST Scheduled View Only Radiation Oncology at [address] [address] 06/03/2024 3:30 PM EST Appointment Ultrasound at [place] [phone] Mira Hutchison [facility] [place] [address] 06/23/2024 4:00 PM EST Appointment Mammography/DXA at [place] [phone] Miryam Feliciano MD [facility] [place] [address] 07/12/2024 8:00 AM EDT Laboratory Appointment Lab [address] [place], [place] [phone] 07/12/2024 9:30 AM EDT Office Visit Nephrology Hypertension at [place] [phone] Sharmin Jean-Baptiste, [facility] [place] [address] 07/13/2024 10:30 AM EDT Laboratory Appointment Lab at [facility] Hematology Oncology [address] [place] [phone] 07/13/2024 11:30 AM EDT Office Visit [place] [phone] Salena Alvares [facility] [place] [address] 07/13/2024 12:45 PM EDT Appointment [place]ology [place] [phone] documented as of this encounter Visit Diagnoses Not on filedocumented in this encounter Care Teams Finance Controller Relationship Specialty Start Date End Date Haylie Steward MD [facility] [place] [address] PCP - General General Internal Medicine 08/04/22 documented as of this encounter
--- OUTSIDE RECORDS SUMMARY | 2024-04-29 01:57 | XMS_ITS | Encounter Summary ---
Author Organization [facility] [place] [address] Care Team Providers Care Institutional Cook Name Role Phone Haylie Steward MD Primary Care Provider [phone] Encounter Details Date Type Department Care Team [...] Scheduled View Only Radiation Oncology at [address] [address] 05/02/2024 3:45 PM EST Scheduled View Only Radiation Oncology at [address] [address] 05/03/2024 1:45 PM EST Scheduled View Only Radiation Oncology at [address] [address] 05/03/2024 2:15 PM EST Office Visit Radiation Oncology at [address] [address] Ofe Fonseca MD [facility] [place] [address] 05/05/2024 8:15 AM EST Scheduled View Only Radiation Oncology at [address] [address] 05/06/2024 12:30 PM EST Scheduled View Only Radiation Oncology at [address] [address] 05/09/2024 12:30 PM EST Scheduled View Only Radiation Oncology at [address] [address] 05/10/2024 2:30 PM EST Scheduled View Only Radiation Oncology at [address] [address] 05/10/2024 3:15 PM EST Office Visit Radiation Oncology at [address] [address] Ofe Fonseca MD [facility] [place] [address] 05/11/2024 2:30 PM EST Scheduled View Only Radiation Oncology at [address] [address] 05/11/2024 3:15 PM EST Scheduled View Only Radiation Oncology at [address] [address] Ofe Fonseca MD [facility] [place] [address] 05/12/2024 2:45 PM EST Scheduled View Only Radiation Oncology at [address] [address] 06/03/2024 3:30 PM EST Appointment Ultrasound at [place] [phone] Mira Hutchison [facility] [place] [address] 06/23/2024 4:00 PM EST Appointment Mammography/DXA at [place] [phone] Miryam Feliciano MD [facility] [place] [address] 07/12/2024 8:00 AM EDT Laboratory Appointment Lab [address] [place], [place] [phone] 07/12/2024 9:30 AM EDT Office Visit Nephrology Hypertension at [place] [phone] Sharmin Jean-Baptiste, [facility] [place] [address] 07/13/2024 10:30 AM EDT Laboratory Appointment Lab at [facility] Hematology Oncology [address] [place] [phone] 07/13/2024 11:30 AM EDT Office Visit Hematology [place] [phone] Salena Alvares [facility] [place] [address] 07/13/2024 12:45 PM EDT Appointment Hematology [place] [phone] documented as of this encounter Visit Diagnoses Not on filedocumented in this encounter Care Teams Institutional Cook Relationship Specialty Start Date End Date Haylie Steward MD [facility] [place] [address] PCP - General General Internal Medicine 08/04/22 documented as of this encounter
--- OUTSIDE RECORDS SUMMARY | 2024-04-29 01:57 | XMS_ITS | Encounter Summary ---
Author Organization [facility] [place] [address] Care Team Providers Care Exercise Physiologist Name Role Phone Haylie Steward MD Primary Care Provider [phone] Reason for Visit * Reason Onset Date Comments Medication Refill 12/05/2022 Encounter Details Date Type Department Care Team (Late st Contact Info) Description 12/05/2022 Refill Neph[place] [address] Sharmin Jean-Baptiste, [facility] [place] [address] Social History Tobacco Use Types Packs/Day Years Used Date Smoking Tobacco: Never Smokeless Tobacco: Never Alcohol Use Standard Drinks/Week Comments Not Currently 0 (1 standard drink = 0.6 oz pur e alcohol) [facility] Inpatient Questions Answer Date Recorded Does [...] Scheduled View Only Radiation Oncology at [address] [address] 05/02/2024 3:45 PM EST Scheduled View Only Radiation Oncology at [address] [address] 05/03/2024 1:45 PM EST Scheduled View Only Radiation Oncology at [address] [address] 05/03/2024 2:15 PM EST Office Visit Radiation Oncology at [address] [address] Ofe Fonseca MD [facility] RADI[place] [address] 05/05/2024 8:15 AM EST Scheduled View Only Radiation Oncology at [address] [address] 05/06/2024 12:30 PM EST Scheduled View Only Radiation Oncology at [address] [address] 05/09/2024 12:30 PM EST Scheduled View Only Radiation Oncology at [address] [address] 05/10/2024 2:30 PM EST Scheduled View Only Radiation Oncology at [address] [address] 05/10/2024 3:15 PM EST Office Visit Radiation Oncology at [address] [address] Ofe Fonseca MD [facility] [place] [address] 05/11/2024 2:30 PM EST Scheduled View Only Radiation Oncology at [address] [address] 05/11/2024 3:15 PM EST Scheduled View Only Radiation Oncology at [address] [phone] Ofe Fonseca MD [facility] [place] [address] 05/12/2024 2:45 PM EST Scheduled View Only Radiation Oncology at [address] [phone] 06/03/2024 3:30 PM EST Appointment Ultrasound at [place] [phone] Mira Hutchison VP [employer] [facility] [place] [address] 06/23/2024 4:00 PM EST Appointment Mammography/DXA at [place] [phone] Miryam Feliciano MD [facility] [address] 07/12/2024 8:00 AM EDT Laboratory Appointment Lab [address] [place] [address] 07/12/2024 9:30 AM EDT Office Visit Nephrology Hypertension at [place] [phone] Sharmin Jean-Baptiste [facility] [place] [address] 07/13/2024 10:30 AM EDT Laboratory Appointment Lab at [facility] Hematology Oncology [address] [place] [phone] 07/13/2024 11:30 AM EDT Office Visit Hematology and Oncology at [place] [phone] Salena Alvares [employer] [facility] [place] [address] 07/13/2024 12:45 PM EDT Appointment Hematology [place] [address] documented as of this encounter Visit Diagnoses Not on filedocumented in this encounter Care Teams Exercise Physiologist Relationship Specialty Start Date [place] [address] PCP - General General Internal Medicine 08/04/22 documented as of this encounter
--- OUTSIDE RECORDS SUMMARY | 2024-04-29 01:57 | XMS_ITS | Encounter Summary ---
Author Organization [facility] [place] [address] Care Team Providers Care Integrated Logistics Operations Manager Name Role Phone Haylie Steward MD Primary Care Provider [phone] Encounter Details Date Type Department Care Team (Late st Contact Info) Description 11/21/2022 Telephone Nephrology [place] [phone] Lashae Ryan Social History Tobacco Use Types Packs/Day Years Used Date Smoking Tobacco: Never Smokeless Tobacco: Never Alcohol Use Standard Drinks/Week Comments Not Currently 0 (1 standard drink = 0.6 oz pur e alcohol) [facility] Inpatient Questions Answer [...] Scheduled View Only Radiation Oncology at [address] [address] 05/02/2024 3:45 PM EST Scheduled View Only Radiation Oncology at [address] [address] 05/03/2024 1:45 PM EST Scheduled View Only Radiation Oncology at [address] [address] 05/03/2024 2:15 PM EST Office Visit Radiation Oncology at [address] [address] Ofe Fonseca MD [facility] [place] [address] 05/05/2024 8:15 AM EST Scheduled View Only Radiation Oncology at [address] [address] 05/06/2024 12:30 PM EST Scheduled View Only Radiation Oncology at [address] [address] 05/09/2024 12:30 PM EST Scheduled View Only Radiation Oncology at [address] [address] 05/10/2024 2:30 PM EST Scheduled View Only Radiation Oncology at [address] [address] 05/10/2024 3:15 PM EST Office Visit Radiation Oncology at [address] [address] Ofe Fonseca MD [facility] [place] [address] 05/11/2024 2:30 PM EST Scheduled View Only Radiation Oncology at [address] [address] 05/11/2024 3:15 PM EST Scheduled View Only Radiation Oncology at [address] [address] Ofe Fonseca MD [facility] [place] [address] 05/12/2024 2:45 PM EST Scheduled View Only Radiation Oncology at [address] [address] 06/03/2024 3:30 PM EST Appointment Ultrasound at [place] [phone] Mira Hutchison, [facility] [place] [address] 06/23/2024 4:00 PM EST Appointment Mammography/DXA at [place] [phone] Miryam Feliciano MD [facility] [place] [address] 07/12/2024 8:00 AM EDT Laboratory Appointment Lab [address] [place], [place] [phone] 07/12/2024 9:30 AM EDT Office Visit Nephrology Hypertension at [place] [phone] Sharmin Jean-Baptiste, [facility] [address] 07/13/2024 10:30 AM EDT Laboratory Appointment Lab at [facility] [place] On[place] [address] [place] [phone] 07/13/2024 11:30 AM EDT Office Visit Hematology [place] [address] Salena Alvares, [facility] [place] [address] 07/13/2024 12:45 PM EDT Appointment Hematology [place] [address] documented as of this encounter Visit Diagnoses Not on filedocumented in this encounter Care Teams Integrated Logistics Operations Manager Relationship Specialty Start Date [place] [address] PCP - General General Internal Medicine 08/04/22 documented as of this encounter
--- OUTSIDE RECORDS SUMMARY | 2024-04-29 01:57 | XMS_ITS | Encounter Summary ---
Author Organization [facility] [place] [address] Care Team Providers Care Mobile Designer Name Role Phone Haylie Steward MD Primary Care Provider [phone] Encounter Details Date Type Department Care Team (Late st Contact Info) Description 09/17/2022 [place] [phone] Ольга Bazzi RN Social History Tobacco Use [...] bladder irritants, and decreasing stress. Copied from [facility] #[id number]. Topic: Specialty Dept CRMs - Generic Call [...] Scheduled View Only Radiation Oncology at [address] [address] 05/02/2024 3:45 PM EST Scheduled View Only Radiation Oncology at [address] [address] 05/03/2024 1:45 PM EST Scheduled View Only Radiation Oncology at [address] [address] 05/03/2024 2:15 PM EST Office Visit Radiation Oncology at [address] [address] Ofe Fonseca MD [facility] [place] [address] 05/05/2024 8:15 AM EST Scheduled View Only Radiation Oncology at [address] [address] 05/06/2024 12:30 PM EST Scheduled View Only Radiation Oncology at [address] [address] 05/09/2024 12:30 PM EST Scheduled View Only Radiation Oncology at [address] [address] 05/10/2024 2:30 PM EST Scheduled View Only Radiation Oncology at [address] [address] 05/10/2024 3:15 PM EST Office Visit Radiation Oncology at [address] [address] Ofe Fonseca MD [facility] [place] [address] 05/11/2024 2:30 PM EST Scheduled View Only Radiation Oncology at [address] [address] 05/11/2024 3:15 PM EST Scheduled View Only Radiation Oncology at [address] [address] Ofe Fonseca MD [facility] [place] [address] 05/12/2024 2:45 PM EST Scheduled View Only Radiation Oncology at [address] [address] 06/03/2024 3:30 PM EST [place] [phone] Mira Hutchison APRN [facility] [place] [address] 06/23/2024 4:00 PM EST Appointment Mammography/[place] [phone] Miryam Feliciano MD [facility] [place] [address] 07/12/2024 8:00 AM EDT Laboratory Appointment Lab [address] [phone] 07/12/2024 9:30 AM EDT Office Visit Nephrology Hypertension at [place] [address] Sharmin Jean-Baptiste, [facility] [place] [address] 07/13/2024 10:30 AM EDT Laboratory Appointment Lab at [facility] Hematology Oncology [address] [place], [place] [phone] 07/13/2024 11:30 AM EDT Office Visit Hematology and Oncology at [place] [phone] Salena Alvares, [facility] [place] [address] 07/13/2024 12:45 PM EDT Appointment Hematology and Oncology at [place] [phone] documented as of this encounter Visit Diagnoses Not on filedocumented in this encounter Care Teams Mobile Designer Relationship Specialty Start Date [place] [address] PCP - General General Internal Medicine 08/04/22 documented as of this encounter
--- OUTSIDE RECORDS SUMMARY | 2024-04-29 01:57 | XMS_ITS | Encounter Summary ---
Author Organization [facility] [place] [address] Care Team Providers Care Latin Dance Instructor Name Role Phone Haylie Steward MD Primary Care Provider [phone] Encounter Details Date Type Department Care Team [...] Scheduled View Only Radiation Oncology at [address] [address] 05/02/2024 3:45 PM EST Scheduled View Only Radiation Oncology at [address] [address] 05/03/2024 1:45 PM EST Scheduled View Only Radiation Oncology at [address] [address] 05/03/2024 2:15 PM EST Office Visit Radiation Oncology at [address] [address] Ofe Fonseca MD [facility] [place] [address] 05/05/2024 8:15 AM EST Scheduled View Only Radiation Oncology at [address] [address] 05/06/2024 12:30 PM EST Scheduled View Only Radiation Oncology at [address] [address] 05/09/2024 12:30 PM EST Scheduled View Only Radiation Oncology at [address] [address] 05/10/2024 2:30 PM EST Scheduled View Only Radiation Oncology at [address] [address] 05/10/2024 3:15 PM EST Office Visit Radiation Oncology at [address] [address] Ofe Fonseca MD [facility] [place] [address] 05/11/2024 2:30 PM EST Scheduled View Only Radiation Oncology at [address] [address] 05/11/2024 3:15 PM EST Scheduled View Only Radiation Oncology at [address] [address] Ofe Fonseca MD [facility] RADIATION [place] [address] 05/12/2024 2:45 PM EST Scheduled View Only Radiation Oncology at [address] [address] 06/03/2024 3:30 PM EST Appointment Ultrasound at [place] [phone] Mira Hutchison [facility] [place] [address] 06/23/2024 4:00 PM EST Appointment Mammography/DXA at [place] [phone] Miryam Feliciano MD [facility] [place] [address] 07/12/2024 8:00 AM EDT Laboratory Appointment Lab [address] [place], [place] [phone] 07/12/2024 9:30 AM EDT Office Visit Nephrology Hypertension at [place] [phone] Sharmin Jean-Baptiste, [facility] [place] [address] 07/13/2024 10:30 AM EDT Laboratory Appointment Lab at [facility] Hematology Oncology [address] [place] [phone] 07/13/2024 11:30 AM EDT Office Visit Hematology [place] [phone] Salena Alvares [facility] [place] [address] 07/13/2024 12:45 PM EDT Appointment Hematology [place] [phone] documented as of this encounter Visit Diagnoses Not on filedocumented in this encounter Care Teams Latin Dance Instructor Relationship Specialty Start Date End Date Haylie Steward MD [facility] [place] [address] PCP - General General Internal Medicine 08/04/22 documented as of this encounter
--- OUTSIDE RECORDS SUMMARY | 2024-04-29 01:57 | XMS_ITS | Encounter Summary ---
Author Organization [facility] [place] [address] Care Team Providers Care Manager Party Name Role Phone Haylie Steward MD Primary Care Provider + [phone] Encounter Details Date Type Department Care Team (Latest Contact Info) Description 01/06/2023 9:00 AM EDT Office Visit Neph[place] [phone] Sharmin Jean-Baptiste APRN [facility] [place] [address] Stage 3b chronic kidney disease (CKD); Hyperparathyroidism; Anemia in stage 3a chronic kidney disease; Stage 3a chronic kidney disease Social History Tobacco Use Types Packs/Day Years Used Date Smoking Tobacco: Never Smokeless Tobacco: Never Alcohol Use Standard Drinks/Week Comments Not Currently 0 (1 standard drink = 0.6 oz pur e alcohol) [facility] Inpatient Questions Answer Date Recorded [...] 9:00 AM EDT Nephrology/Hypertension Clinic Follow-up Note [id number] ID: 47 y.o.year-old female being seen for follow up of CKD Stage 3 with history of lithium use. Past Medical History: Patient Active Problem List Diagnosis Code Stage 3b chronic kidney disease (CKD) N18.32 Hyperparathyroidism E21.3 Anemia D64.9 [place] intoxication, accidental or unintentional, initial encounter T56.891A [...] Patient states it affects her bipolar medication [place]. Interim history - Patient was last seen by nephrology on 10/01/22, when at that time her GFR was 59. No hospitalizations, surgeries, or new diagnoses since last visit. S: Having some issues with constipation. Was told to hold alosteron and developed diarrhea yesterday. Has been taking FeSO4 tabs twice daily. Otherwise feeling well. O: Vitals: 01/06/23 0900 BP: 124/80 BP Location ([facility]): Right arm Patient Position: Sitting BP Cuff [...] Negative mcL Appearance UA Clear Clear Spec [place] UA 1.005 1.005 - 1.030 Color UA [...] avoidance of NSAIDs. No clinical indication for EMAIL [employer] SPECIALIST. HTN - BP appears to be adequately [...] Scheduled View Only Radiation Oncology at [address] [address] 05/02/2024 3:45 PM EST Scheduled View Only Radiation Oncology at [address] [phone] 05/03/2024 1:45 PM EST Scheduled View Only Radiation Oncology at [address] [address] 05/03/2024 2:15 PM EST Office Visit Radiation Oncology at [address] [phone] Ofe Fonseca MD [facility] [place] [address] 05/05/2024 8:15 AM EST Scheduled View Only Radiation Oncology at [address] [phone] 05/06/2024 12:30 PM EST Scheduled View Only Radiation Oncology at [address] [address] 05/09/2024 12:30 PM EST Scheduled View Only Radiation Oncology at [address] [address] 05/10/2024 2:30 PM EST Scheduled View Only Radiation Oncology at [address] [address] 05/10/2024 3:15 PM EST Office Visit Radiation Oncology at [address] [address] Ofe Fonseca MD [facility] DR [place] [address] 05/11/2024 2:30 PM EST Scheduled View Only Radiation Oncology at [address] [address] 05/11/2024 3:15 PM EST Scheduled View Only Radiation Oncology at [address] [address] Ofe Fonseca MD [facility] [place] [address] 05/12/2024 2:45 PM EST Scheduled View Only Radiation Oncology at [address] [phone] 06/03/2024 3:30 PM EST Appointment Ultrasound at [place] [phone] Mira Hutchison, [facility] [place] [address] 06/23/2024 4:00 PM EST Appointment Mammography/DXA at [place] [phone] Miryam Feliciano MD [facility] [address] 07/12/2024 8:00 AM EDT Laboratory Appointment Lab [address] [place], [place] [phone] 07/12/2024 9:30 AM EDT Office Visit Nephrology Hypertension at [place] [phone] Sharmin Jean-Baptiste, [facility] [place] [address] 07/13/2024 10:30 AM EDT Laboratory Appointment Lab at [facility] Hematology Oncology [address] [place] [phone] 07/13/2024 11:30 AM EDT Office Visit Hematology [place] [address] Salena Alvares, [facility] [place] [address] 07/13/2024 12:45 PM EDT Appointment Hematology and Oncology at [place] [phone] documented as of this encounter Results * [...] Rogers MD URINE ORDERABLES Performing Organization Address City/[facility]/ZIP Co de Phone Number [facility] [place] [address] * Phosphorus (06/08/2023 11:04 AM EST) Phosphorus 3.2 2.5 - 4.5 mg/dL [facility] Blood 06/08/2023 11:0 4 AM EST 06/08/2023 11:19 AM EST Narrative Resulting Agency Comment Spec In Lab Horace Rogers MD CHEMISTRY ORDERABLES Performing Organization Address City/[facility] Co de Phone Number [facility] [place] [address] * Albumin Level (06/08/2023 11:04 AM EST) Albumin 4.4 3.2 - 5.2 g/dL [facility] Blood 06/08/2023 11:0 4 AM EST 06/08/2023 11:19 AM EST Narrative Resulting Agency Comment Spec In Lab Horace Rogers MD CHEMISTRY ORDERABLES Performing Organization Address City/[facility] Co de Phone Number [facility] [place] [address] * Iron and TIBC (06/08/2023 11:04 AM EST) Iron 117 30 - 150 mcg/dL [facility] TIBC Not Calculated 250 - 450 mcg/dL [facility] Iron Saturation Not Calculated 20 - 50 % [facility] Blood 06/08/2023 11:0 4 AM EST 06/08/2023 11:19 AM EST Narrative Resulting Agency Comment Spec In Lab Horace Rogers MD CHEMISTRY ORDERABLES Performing Organization Address [facility] Co de Phone Number [facility] [address] * Ferritin (06/08/2023 11:04 AM EST) Ferritin 44 6 - 175 ng/mL [facility] Comment: Please note that as of 04/08/2023, the reference intervals for Ferritin have been updated. Blood 06/08/2023 11:0 4 AM EST 06/08/2023 11:19 AM EST Narrative Resulting Agency Comment Spec In Lab Horace Rogers MD CHEMISTRY ORDERABLES Performing Organization Address [facility] Co de Phone Number [facility] [address] * (ABNORMAL) Basic Metabolic Panel (non-fasting) (06/08/2023 11:04 AM EST) Glucose 81 65 - 199 mg/dL [facility] Comment:Diabetes: >=200 mg/d L plus symptoms Blood Urea Nitrogen 20(H) 8 - 18 mg/dL [facility] Creatinine 1.36(H) 0.70 - 1.20 mg/dL [facility] Sodium 141 135 - 145 [...] questions. Chloride 107 98 - 107 mmol/L [facility] Carbon Dioxide 21(L) 22 - 31 mmol/L [facility] Anion Gap 13 5 - 15 mmol/L [facility] Calcium 10.1 8.5 - 10.5 mg/dL [facility] Est Glomerular Filtration Rate 48(L) [...] Rogers MD CHEMISTRY ORDERABLES Performing Organization Address [facility]/ZIP Co de Phone Number [facility] [address] * Protein/Creatinine Ratio, urine (01/06/2023 7:53 AM EDT) Creatinine, Urine 15 mg/dL [facility] Protein, Urine <6 0 - 12 mg/dL [facility] Protein / Creatinine Ratio, Urine <0.4 ratio [facility] Urine 01/06/2023 7:53 AM EDT 01/06/2023 8:07 AM EDT Narrative Resulting Agency Comment Spec In Lab Sharmin Jean-Baptiste APRN URINE ORDERABLES Performing Organization Address City/[facility]/ZIP Co de Phone Number [facility] [place] [address] * _Urinalysis with microscopic (01/06/2023 7:53 AM [...] Clear Clear [facility] Specific [place] Urine Automated 1.005 1.005 - 1.030 [facility] Color, Urine Dipstick Yellow Yellow [facility] RBC, Urine 0 0 - 4 /HPF [facility] WBC, Urine 0 0 - 5 /HPF [facility] Urine 01/06/2023 7:53 AM EDT 01/06/2023 8:07 AM EDT Narrative Resulting Agency Comment Spec In Lab Sharmin Jean-Baptiste INTRAN[employer] SPECIALIST URINE ORDERABLES Performing Organization Address City/[facility]/ZIP Co de Phone Number [facility] [place] [address] * Vitamin D, 25-Hydroxy (01/06/2023 7:47 AM EDT) Vitamin D Total 25 OH 36 21 - 100 ng/mL [facility] Vit D Interp Sufficient [facility] Blood 01/06/2023 7:47 AM EDT 01/06/2023 7:53 AM EDT Narrative Resulting Agency Comment Spec In Lab Sharmin Jean-Baptiste INTRANET SPECIALIST CHEMISTRY ORDERAB LES Performing Organization Address City/[facility]/ZIP Co de Phone Number [facility] [address] * (ABNORMAL) PTH (01/06/2023 7:47 AM EDT) Parathyroid Hormone 109(H) 15 - 65 pg/mL [facility] Blood 01/06/2023 7:47 AM EDT 01/06/2023 7:53 AM EDT Narrative Resulting Agency Comment Spec In Lab Sharmin L Estiven INTRANET SPECIALIST CHEMISTRY ORDERAB LES Performing Organization Address City/[facility] Co de Phone Number [facility] [address] * Phosphorus (01/06/2023 7:47 AM EDT) Phosphorus 2.5 2.5 - 4.5 mg/dL [facility] Blood 01/06/2023 7:47 AM EDT 01/06/2023 7:53 AM EDT Narrative Resulting Agency Comment Spec In Lab Sharmin L Estiven INTRANET SPECIALIST CHEMISTRY ORDERAB LES Performing Organization Address [facility] Co de Phone Number [facility] [place] [address] * Iron and TIBC (01/06/2023 7:47 AM EDT) Iron 95 30 - 150 mcg/dL [facility] TIBC 347 250 - 450 mcg/dL [facility] Iron Saturation 27 20 - 50 % [facility] Blood 01/06/2023 7:47 AM EDT 01/06/2023 7:53 AM EDT Narrative Resulting Agency Comment Spec In Lab Sharmin L Estiven INTRANET SPECIALIST CHEMISTRY ORDERAB LES Performing Organization Address [facility] Co de Phone Number [facility] [address] * Ferritin (01/06/2023 7:47 AM EDT) Ferritin 38 15 - 150 ng/mL [facility] Comment: Pediatric reference ranges not verified at [facility], interpret with caution. Reference ranges for females greater than 50 years of age approach values for men, i.e., 30-400 ng/mL. Blood 01/06/2023 7:47 AM EDT 01/06/2023 7:53 AM EDT Narrative Resulting Agency Comment Spec In Lab Sharmin L Estiven INTRANET SPECIALIST CHEMISTRY ORDERAB LES Performing Organization Address [facility]/ZIP Co de Phone Number [facility] [place] [address] * (ABNORMAL) Basic Metabolic Panel (non-fasting) (01/06/2023 [...] Agency Comment Spec In Lab Sharmin Jean-Baptiste INTRANET SPECIALIST CHEMISTRY ORDERAB LES Performing Organization Address City/[facility]/ZIP Co de Phone Number [facility] [place] [address] * Albumin Level (01/06/2023 7:47 AM EDT) Albumin 4.1 3.2 - 5.2 g/dL [facility] Blood 01/06/2023 7:47 AM EDT 01/06/2023 7:53 AM EDT Narrative Resulting Agency Comment Spec In Lab Sharmin Jean-Baptiste INTRANET SPECIALIST CHEMISTRY ORDERAB LES [facility] [address] documented in this encounter Visit Diagnoses Diagnosis Stage 3b chronic kidney disease (CKD) Hyperparathyroidism Hyperparathyroidism, unspecified Anemia in stage 3a chronic kidney disease Stage 3a chronic kidney disease documented in this encounter Care Teams Manager Party Relationship Specialty Start Date End Date Haylie Steward MD [facility] [place] [address] PCP - General General Internal Medicine 08/04/22 documented as of this encounter
--- OUTSIDE RECORDS SUMMARY | 2024-04-29 01:57 | XMS_ITS | Encounter Summary ---
Author Organization [facility] [place] [address] Care Team Providers Care Manager Beverage Name Role Phone Haylie Steward MD Primary Care Provider + [phone] Encounter Details Date Type Department Care Team (Late st Contact Info) Description 12/15/2022 Orders Only [place] [phone] Betina Varma, WATER TRUCK DRIVER [facility] [place] [address] Social History Tobacco Use Types Packs/Day Years [...] Scheduled View Only Radiation Oncology at [address] [phone] 05/02/2024 3:45 PM EST Scheduled View Only Radiation Oncology at [address] [phone] 05/03/2024 1:45 PM EST Scheduled View Only Radiation Oncology at [address] [phone] 05/03/2024 2:15 PM EST Office Visit Radiation Oncology at [address] [phone] Ofe Fonseca MD [facility] [place] [address] 05/05/2024 8:15 AM EST Scheduled View Only Radiation Oncology at [address] [phone] 05/06/2024 12:30 PM EST Scheduled View Only Radiation Oncology at [address] [phone] 05/09/2024 12:30 PM EST Scheduled View Only Radiation Oncology at [address] [phone] 05/10/2024 2:30 PM EST Scheduled View Only Radiation Oncology at [address] [phone] 05/10/2024 3:15 PM EST Office Visit Radiation Oncology at [address] [phone] Ofe Fonseca MD [facility] [place] [address] 05/11/2024 2:30 PM EST Scheduled View Only Radiation Oncology at [address] [phone] 05/11/2024 3:15 PM EST Scheduled View Only Radiation Oncology at [address] [phone] Ofe Fonseca MD [facility] [place] [address] 05/12/2024 2:45 PM EST Scheduled View Only Radiation Oncology at [address] [phone] 06/03/2024 3:30 PM EST Appointment Ultrasound at [place] [phone] Mira Hutchison [employer] TRUCK DRIVER [facility] [place] [address] 06/23/2024 4:00 PM EST Appointment Mammography/DXA at [place] [phone] Miryam Feliciano MD [facility] [place] [address] 07/12/2024 8:00 AM EDT Laboratory Appointment Lab [address] [place], [place] [phone] 07/12/2024 9:30 AM EDT Office Visit Nephrology Hypertension at [place] [phone] Sharmin Jean-Baptiste [facility] [place] [address] 07/13/2024 10:30 AM EDT Laboratory Appointment Lab at [facility] Hematology Oncology [address] [place] [phone] 07/13/2024 11:30 AM EDT Office Visit Hematology and Oncology at [place] [phone] Salena Alvares APRN [facility] [place] [address] (work) 07/13/2024 12:45 PM EDT Appointment Hematology [place] [address] documented as of this encounter Procedures Procedure Name Priority Date/Time Associated Diagnosis Comments QUANTIFERON-TB GOLD Routine 12/15/2022 4 :56 PM EDT documented in this encounter Results * QuantiFERON-TB Gold (12/15/2022 4:56 PM EDT) Quantiferon Nil 0.000 IU/mL [facility] QFT TB Ag1-Nil 0.018 IU/mL [facility] QFT TB Ag2-Nil 0.009 IU/mL [facility] Quantiferon Mitogen-Nil 10.000 IU/mL [facility] Quantiferon-TB Gold Negative Negative [facility] Quantiferon Tb Interp M. tuberculosis infection [...] affect immune function, or other immunological factors. [facility] Blood Venous Draw / Unknown 12/15/2022 4:56 PM EDT 12/16/2022 2:08 PM EDT Narrative Resulting Agency Comment Spec In Lab Betina Varma WATER TRUCK DRIVER CHEMISTRY ORDERABLES [facility] [place] [address] documented in this encounter Visit Diagnoses Not on filedocumented in this encounter Care Teams Manager Beverage Relationship Specialty Start Date End Date Haylie Steward MD [place] [address] PCP - General General Internal Medicine 08/04/22 documented as of this encounter
--- OUTSIDE RECORDS SUMMARY | 2024-04-29 01:57 | XMS_ITS | Encounter Summary ---
[place] [address] Care Team Providers Care Sustainability Director Name Role Phone Haylie Steward MD Primary Care Provider + [phone] Reason for Visit * Consultation (Routine) - Closed Specialty Diagnoses / Procedures Referred By Contac t Referred To Contact Urology Diagnoses Urinary incontinence, unspecified type [place] [address] [place] [address] [facility] [place] [address] Referral ID Status Reason Start Date Expiration Date V isits Requested Visits Authorized [id number] Closed Consult, Test & Treat PCP Updated and/or Approved 09/02/2022 09/02/2023 6 6 Encounter Details Date Type Department Care Team (Late st Contact Info) Description 09/16/2022 2:40 PM EDT Office [place] [phone] Mira Hutchison APRN [facility] [place] [address] Urinary retention; Overflow incontinence Social [...] Patient Workup - Female Nataliya Morfin 1975 [id number] Reason for Visit: This is a female 47 y.o. seen at the request of Haylie tSeward MD with incontinence times 2.5 weeks. She [...] the ED 10 days ago with elevated [place] levels and was switched to Depakote at [...] ??? Hyperparathyroidism E21.3 ??? Anemia D64.9 ??? [place] intoxication, accidental or unintentional, initial encounter M04.210M Past Medical History: Diagnosis Date ??? Bipolar [...] tablet Review of Systems: General Health: Good RN DISCHARGE - frequent headaches. RS - No cough [...] Scheduled View Only Radiation Oncology at [address] [phone] 05/02/2024 3:45 PM EST Scheduled View Only Radiation Oncology at [address] [phone] 05/03/2024 1:45 PM EST Scheduled View Only Radiation Oncology at [address] [phone] 05/03/2024 2:15 PM EST Office Visit Radiation Oncology at [address] [phone] Ofe Fonseca MD [facility] [place] [place] [address] 05/05/2024 8:15 AM EST Scheduled View Only Radiation Oncology at [address] [phone] 05/06/2024 12:30 PM EST Scheduled View Only Radiation Oncology at [address] [phone] 05/09/2024 12:30 PM EST Scheduled View Only Radiation Oncology at [address] [phone] 05/10/2024 2:30 PM EST Scheduled View Only Radiation Oncology at [address] [phone] 05/10/2024 3:15 PM EST Office Visit Radiation Oncology at [address] [phone] Ofe Fonseca MD [facility] [place] [address] 05/11/2024 2:30 PM EST Scheduled View Only Radiation Oncology at [address] [phone] 05/11/2024 3:15 PM EST Scheduled View Only Radiation Oncology at [address] [phone] Ofe Fonseca MD [facility] [place] [address] 05/12/2024 2:45 PM EST Scheduled View Only Radiation Oncology at [address] [phone] 06/03/2024 3:30 PM EST Appointment [place] [phone] Mira Hutchison APRN [facility] [place] [address] 06/23/2024 4:00 PM EST Appointment Mammography/[place] [phone] Miryam Feliciano MD [facility] [place] [address] 07/12/2024 8:00 AM EDT Laboratory Appointment Lab [place] [address] 07/12/2024 9:30 AM EDT Office Visit [place] [phone] Sharmin Jean-Baptiste, [facility] [place] [address] 07/13/2024 10:30 AM EDT Laboratory Appointment Lab at [facility] Hematology Oncology [address] [place], [place] [phone] 07/13/2024 11:30 AM EDT Office Visit Hematology [place] [phone] Salena Alvares, [facility] [place] [address] 07/13/2024 12:45 PM EDT Appointment Hematology and Oncology at [place] [phone] Scheduled Referrals Name Type Priority Associated Diagnoses Orde r Schedule Referral to Urology Outpatient Referral Routine Urinary incontinence, unspecified type Ordered: 09/02/2022 documented as of this encounter Visit Diagnoses Diagnosis Urinary retention Retention of urine, unspecified Overflow incontinence documented in this encounter Care Teams Sustainability Director Relationship Specialty Start Date End [place] [address] PCP - General General Internal Medicine 08/04/22 documented as of this encounter
--- OUTSIDE RECORDS SUMMARY | 2024-04-29 01:57 | XMS_ITS | Encounter Summary ---
Author Organization Formerly [facility] [place] [address] Care Team Providers Care Quenching Machine Operator Name Role Phone Haylie Steward MD Primary Care Provider + [phone] Encounter Details Date Type Department Care Team (Late st Contact Info) Description 12/15/2022 Orders [place] [phone] Betina Varma, DIRECTOR INDEPENDENT [facility] [place] [address] Social History Tobacco Use Types Packs/Day Years [...] Scheduled View Only Radiation Oncology at [address] [phone] 05/02/2024 3:45 PM EST Scheduled View Only Radiation Oncology at [address] [phone] 05/03/2024 1:45 PM EST Scheduled View Only Radiation Oncology at [address] [phone] 05/03/2024 2:15 PM EST Office Visit Radiation Oncology at [address] [phone] Ofe Fonseca MD [facility] [place] [address] 05/05/2024 8:15 AM EST Scheduled View Only Radiation Oncology at [address] [phone] 05/06/2024 12:30 PM EST Scheduled View Only Radiation Oncology at [address] [address] 05/09/2024 12:30 PM EST Scheduled View Only Radiation Oncology at [address] [address] 05/10/2024 2:30 PM EST Scheduled View Only Radiation Oncology at [address] [address] 05/10/2024 3:15 PM EST Office Visit Radiation Oncology at [address] [phone] Ofe Fonseca MD [facility] RADIATION [place] [address] 05/11/2024 2:30 PM EST Scheduled View Only Radiation Oncology at [address] [phone] 05/11/2024 3:15 PM EST Scheduled View Only Radiation Oncology at [address] [phone] Ofe Fonseca MD [facility] DR [place] [address] 05/12/2024 2:45 PM EST Scheduled View Only Radiation Oncology at [address] [phone] 06/03/2024 3:30 PM EST Appointment Ultrasound at [place] [phone] Mira Hutchison DIRECTOR INDEPENDENT [facility] [place] [place] [address] 06/23/2024 4:00 PM EST Appointment Mammography/DXA at [place] [phone] Miryam Feliciano MD [facility] [place] [address] 07/12/2024 8:00 AM EDT Laboratory Appointment Lab [address] [place], [place] [phone] 07/12/2024 9:30 AM EDT Office Visit Nephrology Hypertension at [place] [phone] Sharmin Jean-Baptiste [facility] [place] [address] 07/13/2024 10:30 AM EDT Laboratory Appointment Lab at [facility] Hematology Oncology [address] [place] [phone] 07/13/2024 11:30 AM EDT Office Visit Hematology and Oncology at [place] [phone] Salena Alvares APRN [facility] [place] [address] 07/13/2024 12:45 PM EDT Appointment Hematology [place] [address] documented as of this encounter Procedures Procedure Name Priority Date/Time Associated Diagnosis Comments MEASLES (RUBEOLA) ANTIBODY, IGG Routine 12/15/2022 4:56 PM EDT documented in this encounter Results * Measles (Rubeola) Antibody, IgG (12/15/2022 4:56 PM EDT) Rubeola Antibody IgG Positive Positive [facility] Comment: A positive result for this assay is considered to be an indicator of positive immune status. Blood Venous Draw / Unknown 12/15/2022 4:56 PM EDT 12/16/2022 7:18 AM EDT Narrative Resulting Agency Comment Spec In Lab Betina Varma DIRECTOR INDEPENDENT IMMUNOLOGY ORDERABLE S Performing Organization Address City/State/[facility] Co de Phone Number [facility] [place] [address] documented in this encounter Visit Diagnoses Not on filedocumented in this encounter Care Teams Quenching Machine Operator Relationship Specialty Start Date End Date Haylie Steward MD [facility] [place] [address] PCP - General General Internal Medicine 08/04/22 documented as of this encounter
--- OUTSIDE RECORDS SUMMARY | 2024-04-29 01:57 | XMS_ITS | Encounter Summary ---
Author Organization Formerly [facility] [place] [address] Care Team Providers Care Associate Director Regulatory Affairs Name Role Phone Haylie Steward MD Primary Care Provider + [phone] Encounter Details Date Type Department Care Team (Late st Contact Info) Description 09/17/2022 [place] [phone] Ольга Bazzi RN Social History Tobacco Use Types Packs/Day Years Used Date Smoking Tobacco: Never Smokeless Tobacco: Never Alcohol Use Standard Drinks/Week Comments Not Currently 0 (1 standard drink = 0.6 oz pur e alcohol) FORMERLY [facility], [facility] Inpatient Questions Answer Date Recorded Does Anyone [...] a return call as needed. Copied from [facility] #[id number]. Topic: Specialty Dept CRMs - Generic Call [...] Scheduled View Only Radiation Oncology at [address] [phone] 05/02/2024 3:45 PM EST Scheduled View Only Radiation Oncology at [address] [phone] 05/03/2024 1:45 PM EST Scheduled View Only Radiation Oncology at [address] [phone] 05/03/2024 2:15 PM EST Office Visit Radiation Oncology at [address] [phone] Ofe Fonseca MD [facility] [place] [address] 05/05/2024 8:15 AM EST Scheduled View Only Radiation Oncology at [address] [phone] 05/06/2024 12:30 PM EST Scheduled View Only Radiation Oncology at [address] [address] 05/09/2024 12:30 PM EST Scheduled View Only Radiation Oncology at [address] [phone] 05/10/2024 2:30 PM EST Scheduled View Only Radiation Oncology at [address] [address] 05/10/2024 3:15 PM EST Office Visit Radiation Oncology at [address] [phone] Ofe Fonseca MD [facility] [place] [address] 05/11/2024 2:30 PM EST Scheduled View Only Radiation Oncology at [address] [phone] 05/11/2024 3:15 PM EST Scheduled View Only Radiation Oncology at [address] [phone] Ofe Fonseca MD [facility] [place] [address] 05/12/2024 2:45 PM EST Scheduled View Only Radiation Oncology at [address] [phone] 06/03/2024 3:30 PM EST Appointment Ultrasound at [address] Mira Hutchison [facility] [place] [address] 06/23/2024 4:00 PM EST Appointment Mammography/DXA at [place] [phone] Miryam Feliciano MD [facility] [address] 07/12/2024 8:00 AM EDT Laboratory Appointment Lab [address] [place] [phone] 07/12/2024 9:30 AM EDT Office Visit Nephrology Hypertension at [place] [phone] Sharmin Jean-Baptiste APRN [facility] [place] [address] 07/13/2024 10:30 AM EDT Laboratory Appointment Lab at [facility] [place] Oncology [address] [place], [place] [phone] 07/13/2024 11:30 AM EDT Office Visit Hematology and Oncology at [place] [phone] Salena Alvares, [facility] [place] [place] [address] 07/13/2024 12:45 PM EDT Appointment Hematology and Oncology at [place] [phone] documented as of this encounter Visit Diagnoses Not on filedocumented in this encounter Care Teams Associate Director Regulatory Affairs Relationship Specialty Start Date [place] [address] PCP - General General Internal Medicine 08/04/22 documented as of this encounter
--- OUTSIDE RECORDS SUMMARY | 2024-04-29 01:58 | XMS_ITS | Encounter Summary ---
Author Organization [facility] [place] [address] Care Team Providers Care Supervisor Pyrotechnic Loading Name Role Phone Haylie Steward MD Primary Care Provider + [phone] Reason for Visit * Reason Comments Abnormal Labs * Auth/Cert (Routine) Specialty Diagnoses / Procedures Referred By Contac t Referred To Contact Diagnoses Nassau intoxication, accidental or unintentional, initial encounter Procedures EMERGENCY IPI Joaquina Vallejo MD [facility] GENERAL [place] [address] [facility] Referral ID Status Reason Start Date Expiration Date Visits Re quested Visits Authorized [id number] 1 1 Encounter Details Date Type Department Care Team (Late st Contact Info) Description 09/06/2022 5:05 PM EDT - 09/09/2022 12:21 PM EDT Hospital Encounter Medical Specialites Unit Level 1 [place] [id number] Iggy Lynch MD [facility] [place] [address] Joaquina Vallejo MD [facility] [place] [address] Gaby Ramesh MD [facility] [place] [address] [place] [address] Nassau intoxication, accidental or unintentional, initial encounter (Primary [...] Edyta Rowe Patient Age: 47 y.o. Language: New Zealander Race: White Ethnicity: Not nor Admit date: [...] please contact your inpatient physician through the [facility] Graphics Production Specialist . Issues afterhours and on weekends will be handled by the Hospitalist staff on-call. Discharge Diagnoses (Hospital Problems) and Secondary Diagnoses (Chronic Problems): Active Hospital Problems Diagnosis ??? Nassau intoxication, accidental or unintentional, initial encounter Resolved [...] 2.16. ?? She recently moved to the [facility] from [place] and is living with her parents. She used to get all her care in [place]. She has been on lithium for many years and has been stable. Since moving to the [facility], she established with a sheet metal duct installer helper for her CKD related to chronic lithium usage. Her baseline creatinine is around 1.45.The sheet metal duct installer helper recommended she start amiloride after a visit [...] saw an outpatient psychiatrist, Dr. Michelet Monge ([facility]) who ordered a lithium level which [...] was started on aggressive IV fluid hydration. Nassau was discontinued. Electrolyte panel including kidney function [...] is followed by Dr. Michelet Monge with [facility]. She has been stable on her [...] a call by next week please call [phone] and ask about the status of your appointment Follow-up Appointments Future Appointments Date Time Provider Department Center 11/05/2022 9:00 AM Michelet Monge MD [facility] Your Inpatient Medical Team at [facility] Name(s) of your inpatient provider(s): Shaka Epps MD For questions regarding issues relating to your hospitalization on the Hospital Medicine Service, please contact your inpatient physician through the [facility] Graphics Production Specialist [phone]. Issues after hours and on weekends will be handled by the Hospitalist staff on-call. Your Primary Care Provider Haylie Steward MD [phone] General Instructions None Future Appointments and Orders Future Appointments and Orders Future Appointments Provider Department Dept Phone 11/05/2022 9:00 AM Michelet Monge MD [facility] [phone] Future Orders Complete By Expires US Retroperitoneal Complete [[id number] Custom] 09/09/2022 (Approximate) 03/11/2023 Process Instructions: This exam includes imaging of both kidneys, ureters & bladder. Scheduling Instructions: Questions: Where will study be performed?: [facility] Radiology Portable exam?: Ultrasound scheduling priority: [...] a call by next week please call [phone] and ask about the status of your appointment Follow-up Appointments Future Appointments Date Time Provider Department Center 11/05/2022 9:00 AM Michelet Monge MD [facility] Your Inpatient Medical Team at [facility] Name(s) of your inpatient provider(s): Shaka Epps MD For questions regarding issues relating to your hospitalization on the Hospital Medicine Service, please contact your inpatient physician through the [facility] Graphics Production Specialist [phone]. Issues after hours and on weekends will be handled by the Hospitalist staff on-call. Your Primary Care Provider Haylie Steward MD [phone] documented in this encounter Medications at Time [...] Discharge diagnosis Active Hospital Problems Diagnosis ??? Nassau intoxication, accidental or unintentional, initial encounter Resolved Hospital Problems No resolved problems to display. Secondary Issues Active Non-Hospital Problems Diagnosis ??? Stage 3b chronic kidney disease (CKD) ??? Hyperparathyroidism ??? Anemia I have personally seen and examined the patient and they are ready for discharge. I spent >30 minutes (Day of Discharge Code 13226) involved in the final examination of the [...] AM EDT Hypertension-Nephrology Inpatient Follow-up Edyta Rowe [id number] 1975 ID: 47 y.o. old female seen [...] Bipolar I on chronic lithium since 2003 Nassau toxicity, resolving Hx Hypercalcemia Hyperparathyroidism (2/2 lithium [...] able. This case was discussed with staff sheet metal duct installer helper Dr. Ordonez and the patient's primary team. Please contact me at phone: [phone] or pager: [phone] with any questions. Hal Patel MD Nephrology [...] 2 days Active Hospital Problems Diagnosis ??? Nassau intoxication, accidental or unintentional, initial encounter Resolved [...] bit encephalopathic, although seems almost back tobaseline. Nassau level normalized. Psychiatry recommending ongoing hold of lithium, will attempt to speak to Edyta's outpatient psychiatrist on 09/09 regarding ongoing plan for lithium. Also will discuss/consult nephrology given the timing of amiloride initiation and resultant supratherapeutic lithium level. No longer needs step down status, okay to discontinue telemetry. Plan: # Acute Nassau toxicity #Sinus pauses/bradycardia (resolved) #OLY on CKD stage 3b - sinus pauses/bradycardia are likely due to lithium toxicity further exacerbated by ongoing diarrhea, nausea, and vomiting. Possible component of hypovolemia from amilioride if adverse GI side effects from med Monitor for these GI symptoms when Nassau levels normalize. If these persist despite normal [...] #OCD -Followed by Dr. Michelet Monge with [facility]. She has been stable on her dose of lithium for years. -HOLD lithium in setting of toxicity; further plan pending -psychiatry consultation -Continue Wellbutrin -Continue Lamictal #Hypothyroidism -Continue home levothyroxine DVT PPX: heparin SQ BID Anticipated Disposition: home when medically ready. Lives with parents. Goals of Care: Team Pager( Coverage 24/11): #[phone] PCP: Haylie Steward MD [phone] Attestation: IPI Certification I certify that I am a D-H credentialed attending provider with admitting privileges and that the patient meets or has met medical necessity to require an inpatient IPI level of care meeting a minimumof two midnights or is on the [facility] inpatient only procedure list (status C) due [...] pain. Slight BUE tremor noted during venipuncture. manhole stripper in place, sinus krista 50's currently. Pending results from AM Nassau level. Continue to closely monitor. PLAN MOVING FORWARD: Monitor Nassau level & cardiac observation Discharge assistance needed [...] occasional pauses, pt asymptomatic and MD aware. Nassau level at 1200 check came back in normal range at 1.10. Pt independent in room. Voiding QS CYU in bathroom. +BM this shift. Towards end of shift pt HR sustaining in 50s-70s. BUE tremors decreasing in severity over the day. Bed in low/locked position, call christopher within reach, nonskid footwear on when OOB, safety maintained this shift. PLAN MOVING FORWARD: Nassau lvl monitoring, telemetry monitoring, DC planning INDIVIDUALIZED [...] 1 day Active Hospital Problems Diagnosis ??? Nassau intoxication, accidental or unintentional, initial encounter Resolved [...] 1 1/2 weeks ago. Plan: # Acute Nassau toxicity #Sinus pauses #OLY on CKD stage 3b -Likely 2/2 to lithium toxicity further exacerbated by ongoing diarrhea, nausea, and vomiting. Possible component of hypovolemia from amilioride if adverse GI side effects from med Monitor for these GI symptoms when Nassau levels normalize. If these persist despite normal lithium levels, will likely need more of a workup -Cardiac monitoring. Cardiology curbsided earlier and no acute management changes with the pauses noted earlier in the morning. If pauses worsen to >4 seconds, will re-discuss with them. Anticipate this will resolve with reversal of lithium toxicity. -Check BMP q4 hrs and Nassau q 4 hrs for first 24 hrs [...] #OCD -Followed by Dr. Michelet Monge with [facility]. She has been stable on her [...] Goals of Care: Team Pager(MD Coverage 24/11): #[phone] PCP: Haylie Steward MD [phone] Attestation: IPI Certification I certify that I am a D-H credentialed attending provider with admitting privileges and that the patient meets or has met medical necessity to require an inpatient IPI level of care meeting a minimumof two midnights or is on the [facility] inpatient only procedure list (status C) due [...] Vallejo MD - 09/06/2022 11:09 PM EDT [facility] Adult Inpatient Medicine Admission History and Physical Patient Name: Edyta Rowe Date of : 1975 Age/Gender 47 y.o. female PCP Haylie Steward MD [phone] ER Provider [place] Date of Admission 09/06/2022 [...] of 2.16. She recently moved to the [facility] from [place] and is living with her parents. She used to get all her care in [place]. She has been on lithium for many years and has been stable. Since moving to the [facility], she established with a sheet metal duct installer helper for her CKD related to chronic lithium usage. Her baseline creatinine is around 1.45.The sheet metal duct installer helper recommended she start amiloride after a visit [...] saw an outpatient psychiatrist, Dr. Michelet Monge ([facility]) who ordered a lithium level which [...] working Lives with parents Moved here from [place] Older sister and younger brother No significant [...] dehydration with the associated diarrhea and vomiting. #Nassau Toxicity with symptoms of diarrhea, vomiting, 2 [...] OCD: Followed by Dr. Michelet Monge with [facility]. She has been stable on her [...] Signed Joaquina Vallejo MD 09/07/2022 7:26 AM [facility] Medicine 2300 IPI Certification I certify that I am a D-H credentialed attending provider with admitting privileges and that the patient meets or has met medical necessity to require an inpatient IPI level of care meeting a minimumof two midnights or is on the [facility] inpatient only procedure list (status C) due [...] of 09/06/22 2200 Sat September 06, [id number] Nassau Lvl(!!): 2.02 Reviewed. Minimal improvement from early [...] her parents in a 2 story home [facility] reports no difficuly climbing stairs. Current Functional Ability: Independent DME used at home: none DME Needed at Discharge: Patient is insured through: Primary Insurance: [employer] PL[employer] MANAGED MEDICAID Payor: [employer]GED MEDICAID / Plan: [employer] / Product Type: *No Product type* / Secondary Insurance: N/A Prescription Coverage: Yes This plan was formulated with input from patien and team. All are in agreement with plan. [place] [facility] [phone] * Plan of Care - Mulu Rome [...] ??? Hyperparathyroidism E21.3 ??? Anemia D64.9 ??? Nassau intoxication, accidental or unintentional, initial encounter T56.937U Past Medical/Surgical History: Past Medical History: Diagnosis [...] as well. Diagnoses (chronic, acute, include progression/severity): Nassau toxicity likely 2/2 diarrhea Plan/Recommendations: - Please [...] this assessment. Recommendations were communicated to primary produce team lead. Jessica Domínguez MD 09/08/2022 Coding [...] [] Minimal - [] Minimal [] Straightforward 24834 [] Low [] Low [] Low [] Low 67978 [] Moderate [x] Moderate [] Moderate [] Moderate 42118 [x] High [] High [x] High [x] High 44310 Final Coding Determination: High Associated attestation - [...] amiloride. Dylan Medina MD Psychiatry Consultation Pager: [phone] * Consult Note - Hal Patel MD - 09/08/2022 3:00 PM EDT Hypertension-Nephrology Consultation Edyta Rowe [id number] 1975 ID: Edyta Rowe is 47 y.o. yo female requiring inpatient consultation for Nassau Toxicity at the request of Dr. Epps. [...] working Lives with parents Moved here from [place] Older sister and younger brother No significant [...] at that time to help ameliorate symptoms. Nassau is primarily renally cleared and it's clearance [...] Bipolar I on chronic lithium since 2003 Nassau toxicity, resolving Hx Hypercalcemia Hyperparathyroidism (2/2 lithium [...] effects. This case was discussed with staff sheet metal duct installer helper Dr. Ordonez and the patient's primary team. Please contact me at phone: [phone] or pager: [phone] with any questions. Hal Patel MD Nephrology [...] surrogate would be surrogate decision maker per [place] surrogate decision making law. (Only good for 180 days) mother Wyatt Any patient receiving care in [place] must abide by [place] law. The hierarchy for surrogate decision making [...] (i) The agent with financial power of commercial attorney or a conservator appointed in accordance with [...] her parents in a 2 story home [facility] reports no difficuly climbing stairs. Resource / Environmental Concerns: Resource/Environmental Concerns: none Current DME: none Home Address confirmed as: [address] [place] [address] [address] [place] [address] Social & Family Supports: All names listed [...] Specific Information: NA Health/Prescription Coverage: Primary Insurance: [employer] MANAGED MEDICAID Payor: [employer] MANAGED MEDICAID / Plan: [employer] / Product Type: *No Product type* / Secondary Insurance: N/A ; Prescription Coverage: Yes [facility] [address] [place] [id number] [place] Status: Patient is a : No Primary Care Provider confirmed: Haylie Steward MD [phone] Patient/Caregiver Goals of Treatment: Retrun home to [...] with transition of care planning. [place] [facility] [phone] * Consult Note - Josh Garcia [facility] - 09/07/2022 12:29 AM EDT TelePharmacy Home [...] Scheduled View Only Radiation Oncology at [address] [address] 05/02/2024 3:45 PM EST Scheduled View Only Radiation Oncology at [address] [address] 05/03/2024 1:45 PM EST Scheduled View Only Radiation Oncology at [address] [address] 05/03/2024 2:15 PM EST Office Visit Radiation Oncology at [address] [address] Ofe Fonseca MD [facility] [place] [address] 05/05/2024 8:15 AM EST Scheduled View Only Radiation Oncology at [address] [address] 05/06/2024 12:30 PM EST Scheduled View Only Radiation Oncology at [address] [address] 05/09/2024 12:30 PM EST Scheduled View Only Radiation Oncology at [address] [phone] 05/10/2024 2:30 PM EST Scheduled View Only Radiation Oncology at [address] [address] 05/10/2024 3:15 PM EST Office Visit Radiation Oncology at [address] [address] Ofe Fonseca MD [facility] [place] [address] 05/11/2024 2:30 PM EST Scheduled View Only Radiation Oncology at [address] [address] 05/11/2024 3:15 PM EST Scheduled View Only Radiation Oncology at [address] [address] Ofe Fonseca MD [facility] [place] [address] 05/12/2024 2:45 PM EST Scheduled View Only Radiation Oncology at [address] [address] 06/03/2024 3:30 PM EST [place] [phone] Mira Hutchison [facility] [place] [address] 06/23/2024 4:00 PM EST Appointment Mammography/DXA at [place] [phone] Miryam Feliciano MD [facility] [place] [address] 07/12/2024 8:00 AM EDT Laboratory Appointment Lab [address] [place], [place] [phone] 07/12/2024 9:30 AM EDT Office Visit Nephrology Hypertension at [place] [phone] Sharmin Jean-Baptiste [facility] [place] [address] 07/13/2024 10:30 AM EDT Laboratory Appointment Lab at [facility] Hematology Oncology [address] [place], [place] [phone] 07/13/2024 11:30 AM EDT Office Visit Hematology and Oncology at [place] [phone] Salena Alvares [facility] [place] [address] 07/13/2024 12:45 PM EDT Appointment Hematology [place] [address] documented as of this encounter [...] EKG 12-LEAD STAT 09/07/2022 4:04 AM EDT Nassau intoxication, accidental or unintentional, initial encounter HEMOGRAM [...] signed by: Dawn Sanchez MD, [facility] ([phone]), at 10/01/2022 7:46 PM Thank you for letting us participate in the care of this patient. If you are a health care provider and have any questions regarding this report, please contact the number above. For patients who have questions, please contact the health pharmacy customer care specialist that requested your imaging first. ?Dawn Sanchez, [facility] Furnace Combustion Analyst Electronically Signed Final Report ?? 10/01/2022 07:53 pm Narrative 10/01/2022 7:53 PM EDT Renal ? (Signed Final 10/01/2022 07:53 pm) PATIENT INFO: ID #: ? [id number] ?: ??[birth year] (47 yrs)(F) Name: ? EDYTA ROWE ? Visit Date: 10/01/2022 02:08 pm PERFORMED BY: Attending: ?Laura NÚÑEZ, Dawn Wiseman Resident: ? Jayne NÚÑEZ, [facility] Performed By: ? Monster Bhatia RDMS Referred By: ?SHAKA EPPS Location: ? [place] SERVICE(S) PROVIDED: URETRO - Retroperitoneal Complete - [id number] ? [id number] INDICATIONS: long-standing lithium use and CKD, requested [...] 10/01/2022 07:53 pm) PATIENT INFO: ID #: [id number] : [birth year] (47 yrs)(F) Name: EDYTA ROWE Visit Date: 10/01/2022 02:08 pm PERFORMED BY: Attending: Dawn Sanchez MD Resident: Jayne NÚÑEZ, [facility] Performed By: Monster Bhatia RDMS Referred By: SHAKA EPPS Location: [place] SERVICE(S) PROVIDED: URETRO - Retroperitoneal Complete - [id number] INDICATIONS: long-standing lithium use and CKD, requested [...] signed by: Dawn Sanchez MD, [facility] ([phone]), at 10/01/2022 7:46 PM Thank you for letting us participate in the care of this patient. If you are a health care provider and have any questions regarding this report, please contact the number above. For patients who have questions, please contact the health pharmacy customer care specialist that requested your imaging first. Dawn Sanchez E Furnace Combustion Analyst Electronically Signed Final Report 10/01/2022 07:53 pm Shaka Epps MD IMG GEN ORDERABLE S * Differential, Automated (09/09/2022 4:46 AM EDT) Neutrophil % 69.2 % [facility] Neutrophil Absolute 4.46 1.70 - 6.10 x10(3)/[facility] LABORATORY Lymph % 19.7 % [facility] Lymphocytes Abs 1.3 0.9 - 3.2 x10(3)/[facility] LABORATORY Monocyte % 5.9 % [facility] ITAL LABORATORY Monocyte Abs 0.4 0.3 - 0.9 x10(3)/[facility] LABORATORY Eos % 4.5 % [facility] Eosinophils Abs 0.3 0.0 - 0.4 x10(3)/[facility] LABORATORY Basophil % 0.5 % [facility] Baso Absolute 0.0 0.0 - 0.1 x10(3)/[facility] LABORATORY Immature Gran % 0.20 % [facility] Comment: Immature granulocytes(IG's)percentage and absolute count will include metamyelocytes, myelocytes, and promyelocytes. Blood smears from CBCs yielding IG's will be scanned manually for concordance. If this scan disagrees with the automated IG or if promyelocytes are noted, a manual differential will be performed. Immature Gran Absolute 0.01 0.00 - 0.04 x10(3)/[facility] LABORATORY Blood 09/09/2022 4:46 AM EDT 09/09/2022 4:58 AM EDT Narrative Resulting Agency Comment Spec In Lab Shaka Epps MD HEMATOLOGY ORDERABLE S [facility] [place] [address] * (ABNORMAL) Hemogram (09/09/2022 4:46 AM EDT) White Blood Cell 6.4 4.0 - 9.5 x10(3)/mc L [facility] Red Blood Cell 4.19 4.00 - 5.21 x10(6)/mc L [facility] Hemoglobin 10.1(L) 11.7 - 15.5 g/dL [facility] Hematocrit 35.6(L) 35.7 - 45.8 % [facility] Mean Cell Volume 85.0 82.6 - 94.4 fL [facility] Mean Cell Hemoglobin 24.1(L) 27.1 - 32.0 pg [facility] Mean Cell Hemoglobin Concentration 28.4(L) 31.7 - 35.0 g/dL [facility] Platelet 289 145 - 357 x10(3)/mc L [facility] RDW Standard Deviation 54.7(H) 37.0 - 46.0 fL [facility] RDW coefficient of variation 17.7(H) 11.5 - 14.1 % [facility] Mean Platelet Volume 9.3 7.6 - 12.9 fL [facility] HOSPITAL [facility] NRBC% auto 0.0 % [facility] ITAL LABORATORY NRBC Absolute 0.000 0.000 - 0.000 x10(3)/ L [facility] Blood 09/09/2022 4:46 AM EDT 09/09/2022 4:58 AM EDT Narrative Resulting Agency Comment Spec In Lab Shaka Epps MD HEMATOLOGY ORDERABLE S [facility] [place] [address] * (ABNORMAL) Basic Metabolic Panel (non-fasting) (09/09/2022 4:46 AM EDT) Glucose 102 65 - 199 mg/dL [facility] Comment:Diabetes: >=200 mg/d L plus symptoms Blood Urea Nitrogen 14 8 - 18 mg/dL [facility] Creatinine 1.71(H) 0.70 - 1.20 mg/dL [facility] Sodium 145 135 - 145 mmol/L [facility] Potassium 4.5 3.5 - 5.0 mmol/L [facility] Comment: Please note: ??Patients with WBC >100,000 may have falsely elevated Potassium levels. ??For accurate Potassium quantification in these patients send serum separator tube (gold top) for subsequent determinations. ??Contact the Clinical Chemistry Laboratory if there are any questions. Chloride 115(H) 98 - 107 mmol/L [facility] Carbon Dioxide 22 22 - 31 mmol/L [facility] Anion Gap 8 5 - 15 mmol/L [facility] Calcium 10.3 8.5 - 10.5 mg/dL [facility] Est Glomerular Filtration Rate 37(L) >=60 mL/min/1. 73 m?? [facility] Comment: This patient's estimated GFR was [...] Epps MD CHEMISTRY ORDERABLES Performing Organization Address [facility] [place] Co de Phone Number [facility] [place] [address] * (ABNORMAL) [place] level (09/09/2022 4:46 AM EDT) [place] 0.50(L) 0.60 - 1.20 mmol/L [facility] Comment:result rechecked-KS Blood 09/09/2022 4:46 AM EDT 09/09/2022 4:58 AM EDT Narrative Resulting Agency Comment Spec In Lab Shaka Epps MD CHEMISTRY ORDERABLES Performing Organization Address City/[facility] Co de Phone Number [facility] [place] [address] * Phosphorus (09/09/2022 4:46 AM EDT) Phosphorus 3.6 2.5 - 4.5 mg/dL [facility] Blood 09/09/2022 4:46 AM EDT 09/09/2022 4:58 AM EDT Narrative Resulting Agency Comment Spec In Lab Shaka Epps MD CHEMISTRY ORDERABLES Performing Organization Address City/[facility] Co de Phone Number [facility] [place] [address] * Magnesium (09/09/2022 4:46 AM EDT) Magnesium 0.95 0.69 - 1.07 mmol/L [facility] Blood 09/09/2022 4:46 AM EDT 09/09/2022 4:58 AM EDT Narrative Resulting Agency Comment Spec In Lab Shaka Epps MD CHEMISTRY ORDERABLES Performing Organization Address [facility] Co de Phone Number [facility] [place] [address] * Vitamin D, 25-Hydroxy (09/09/2022 4:46 AM EDT) Vitamin D Total 25 OH 24 21 - 100 ng/mL [facility] Vit D Interp Insufficient [facility] Blood 09/09/2022 4:46 AM EDT 09/09/2022 4:58 AM EDT Narrative Resulting Agency Comment Spec In Lab Roseann Ordonez MD CHEMISTRY ORDERABLES Performing Organization Address City/[facility] Co de Phone Number [facility] [place] [address] * (ABNORMAL) PTH (09/09/2022 4:46 AM EDT) Parathyroid Hormone 143(H) 15 - 65 pg/mL [facility] Blood 09/09/2022 4:46 AM EDT 09/09/2022 4:58 AM EDT Narrative Resulting Agency Comment Spec In Lab Roseann Ordonez MD CHEMISTRY ORDERABLES Performing Organization Address City/[facility]/[place] [address] * (ABNORMAL) Differential, Automated (09/08/2022 1:55 AM EDT) Neutrophil % 75.3 % [facility] Neutrophil Absolute 7.00(H) 1.70 - 6.10 x10(3)/[facility] Lymph % 16.5 % [facility] Lymphocytes Abs 1.5 0.9 - 3.2 x10(3)/[facility] Monocyte % 6.1 % [facility] Monocyte Abs 0.6 0.3 - 0.9 x10(3)/[facility] Eos % 1.5 % [facility] Eosinophils Abs 0.1 0.0 - 0.4 x10(3)/[facility] Basophil % 0.4 % [facility] Baso Absolute 0.0 0.0 - 0.1 x10(3)/[facility] Immature Gran % 0.20 % [facility] Comment: Immature granulocytes(IG's)percentage and absolute count will include metamyelocytes, myelocytes, and promyelocytes. Blood smears from CBCs yielding IG's will be scanned manually for concordance. If this scan disagrees with the automated IG or if promyelocytes are noted, a manual differential will be performed. Immature Gran Absolute 0.02 0.00 - 0.04 x10(3)/[facility] Blood 09/08/2022 1:55 AM EDT 09/08/2022 2:01 AM EDT Narrative Resulting Agency Comment Spec In Lab Joaquina Vallejo MD HEMATOLOGY ORDERA BLES Performing Organization Address City/[facility]/[place] [address] * (ABNORMAL) Hemogram (09/08/2022 1:55 AM EDT) White Blood Cell 9.3 4.0 - 9.5 x10(3)/[facility] LAB[facility] Red Blood Cell 4.22 4.00 - 5.21 x10(6)/mc L [facility] Hemoglobin 10.2(L) 11.7 - 15.5 g/dL [facility] Hematocrit 36.4 35.7 - 45.8 % [facility] Mean Cell Volume 86.3 82.6 - 94.4 fL [facility] Mean Cell Hemoglobin 24.2(L) 27.1 - 32.0 pg [facility] Mean Cell Hemoglobin Concentration 28.0(L) 31.7 - 35.0 g/dL [facility] Platelet 303 145 - 357 x10(3)/mc L [facility] RDW Standard Deviation 54.6(H) 37.0 - 46.0 fL [facility] RDW coefficient of variation 17.2(H) 11.5 - 14.1 % [facility] Mean Platelet Volume 9.4 7.6 - 12.9 fL [facility] NRBC% auto 0.0 % [facility] LAB[facility] NRBC Absolute 0.000 0.000 - 0.000 x10(3)/mc L [facility] Blood 09/08/2022 1:55 AM EDT 09/08/2022 2:01 AM EDT Narrative Resulting Agency Comment Spec In Lab Joaquina Vallejo MD HEMATOLOGY ORDERA BLES [facility] [place] [address] * (ABNORMAL) Basic Metabolic Panel (non-fasting) (09/08/2022 1:55 AM EDT) Glucose 134 65 - 199 mg/dL [facility] Comment:Diabetes: >=200 mg/d L plus symptoms Blood Urea Nitrogen 11 8 - 18 mg/dL [facility] Creatinine 1.57(H) 0.70 - 1.20 mg/dL [facility] Sodium 145 135 - 145 mmol/L [facility] Potassium 4.5 3.5 - 5.0 mmol/L [facility] Comment: Please note: ??Patients with WBC >100,000 may have falsely elevated Potassium levels. ??For accurate Potassium quantification in these patients send serum separator tube (gold top) for subsequent determinations. ??Contact the Clinical Chemistry Laboratory if there are any questions. Chloride 117(H) 98 - 107 mmol/L [facility] Carbon Dioxide 18(L) 22 - 31 mmol/L [facility] Anion Gap 10 5 - 15 mmol/L [facility] Calcium 10.2 8.5 - 10.5 mg/dL [facility] Est Glomerular Filtration Rate 40(L) >=60 mL/min/1. 73 m?? [facility] Comment: This patient's estimated GFR was [...] In Lab Shaka Epps MD CHEMISTRY ORDERABLES [facility] [place] [address] * [place] level (09/08/2022 1:55 AM EDT) [place] 0.80 0.60 - 1.20 mmol/L [facility] Blood 09/08/2022 1:55 AM EDT 09/08/2022 2:01 AM EDT Narrative Resulting Agency Comment Spec In Lab Shaka Epps MD CHEMISTRY ORDERABLES Performing Organization Address City/[facility]/ZIP Co de Phone Number [facility] [place] [address] * Phosphorus (09/08/2022 1:55 AM EDT) Phosphorus 3.1 2.5 - 4.5 mg/dL [facility] Blood 09/08/2022 1:55 AM EDT 09/08/2022 2:01 AM EDT Narrative Resulting Agency Comment Spec In Lab Shaka Epps MD CHEMISTRY ORDERABLES Performing Organization Address City/[facility] Co de Phone Number [facility] [place] [address] * Magnesium (09/08/2022 1:55 AM EDT) Magnesium 0.99 0.69 - 1.07 mmol/L [facility] Blood 09/08/2022 1:55 AM EDT 09/08/2022 2:01 AM EDT Narrative Resulting Agency Comment Spec In Lab Shaka Epps MD CHEMISTRY ORDERABLES Performing Organization Address [facility] Co de Phone Number [facility] [place] [address] * Phosphorus (09/07/2022 12:34 PM EDT) Phosphorus 2.6 2.5 - 4.5 mg/dL [facility] Blood 09/07/2022 12:3 4 PM EDT 09/07/2022 1:05 PM EDT Narrative Resulting Agency Comment Spec In Lab Joaquina Vallejo MD CHEMISTRY ORDERAB LES Performing Organization Address [facility] Co de Phone Number [facility] [place] [address] * (ABNORMAL) Magnesium (09/07/2022 12:34 PM EDT) Magnesium 1.17(H) 0.69 - 1.07 mmol/L [facility] Blood 09/07/2022 12:3 4 PM EDT 09/07/2022 1:05 PM EDT Narrative Resulting Agency Comment Spec In Lab Joaquina Vallejo MD CHEMISTRY ORDERAB LES Performing Organization Address [facility] Co de Phone Number [facility] [place] [address] * [place] level (09/07/2022 12:34 PM EDT) [place] 1.10 0.60 - 1.20 mmol/L [facility] Blood 09/07/2022 12:3 4 PM EDT 09/07/2022 1:05 PM EDT Narrative Resulting Agency Comment Spec In Lab Joaquina Vallejo MD CHEMISTRY ORDERAB LES Performing Organization Address City/State/[facility] Co de Phone Number [facility] [place] [address] * (ABNORMAL) Basic Metabolic Panel (non-fasting) (09/07/2022 12:34 PM EDT) Glucose 105 65 - 199 mg/dL [facility] Comment:Diabetes: >=200 mg/d L plus symptoms Blood Urea Nitrogen 11 8 - 18 mg/dL [facility] Creatinine 1.61(H) 0.70 - 1.20 mg/dL [facility] Sodium 145 135 - 145 mmol/L [facility] Potassium 4.3 3.5 - 5.0 mmol/L [facility] Comment: Please note: ??Patients with WBC >100,000 may have falsely elevated Potassium levels. ??For accurate Potassium quantification in these patients send serum separator tube (gold top) for subsequent determinations. ??Contact the Clinical Chemistry Laboratory if there are any questions. Chloride 118(H) 98 - 107 mmol/L [facility] Carbon Dioxide 20(L) 22 - 31 mmol/L [facility] Anion Gap 7 5 - 15 mmol/L [facility] Calcium 10.0 8.5 - 10.5 mg/dL [facility] Est Glomerular Filtration Rate 39(L) >=60 mL/min/1. 73 m?? [facility] Comment: This patient's estimated GFR was [...] MD CHEMISTRY ORDERAB LES Performing Organization Address City/[facility]/ZIP Co de Phone Number [facility] [place] [address] * Haptoglobin (09/07/2022 6:09 AM EDT) [facility] Haptoglobin 179 30 - 200 mg/dL [facility] Comment: Haptoglobin concentrations in newborns is low to undetectable; however, adult concentrations are usually attained by 4 months of age. ??No sex-related differences for haptoglobin have been detected. Blood Venous Draw / Unknown 09/07/2022 6:09 AM EDT 09/07/2022 6:24 AM EDT Narrative Resulting Agency Comment Spec In Lab Joaquina Vallejo MD CHEMISTRY ORDERAB LES Performing Organization Address [facility] Co de Phone Number [facility] [place] [address] * (ABNORMAL) Ferritin (09/07/2022 6:09 AM EDT) [facility] Ferritin 11(L) 15 - 150 ng/mL [facility] Comment: Pediatric reference ranges not verified at [facility], interpret with caution. Reference ranges for females greater than 50 years of age approach values for men, i.e., 30-400 ng/mL. Blood Venous Draw / Unknown 09/07/2022 6:09 AM EDT 09/07/2022 6:24 AM EDT Narrative Resulting Agency Comment Spec In Lab Joaquina Vallejo MD CHEMISTRY ORDERAB LES [facility] [place] [address] * Folate, serum (09/07/2022 6:09 AM EDT) [facility] Folate 16.8 4.8 - 24.2 ng/mL [facility] Blood Venous Draw / Unknown 09/07/2022 6:09 AM EDT 09/07/2022 6:24 AM EDT Narrative Resulting Agency Comment Spec In Lab Joaquina Vallejo MD CHEMISTRY ORDERAB LES Performing Organization Address [facility] Co de Phone Number [facility] [place] [address] * Vitamin B12 (09/07/2022 6:09 AM EDT) Pathologist [facility] Vitamin B12 613 232 - 1,245 pg/mL [facility] Blood Venous Draw / Unknown 09/07/2022 6:09 AM EDT 09/07/2022 6:24 AM EDT Narrative Resulting Agency Comment Spec In Lab Joaquina Vallejo MD CHEMISTRY ORDERAB LES Performing Organization Address [facility] Co de Phone Number [facility] [place] [address] * (ABNORMAL) [place] level (09/07/2022 6:09 AM EDT) Pathologist [facility] [place] 1.42(H) 0.60 - 1.20 mmol/L [facility] Blood 09/07/2022 6:09 AM EDT 09/07/2022 6:16 AM EDT Narrative Resulting Agency Comment Spec In Lab Joaqiuna Vallejo MD CHEMISTRY ORDERAB LES Performing Organization Address [facility] Co de Phone Number [facility] [place] [address] * EKG 12 Lead (09/07/2022 4:04 AM EDT) Ventricular rate 56 BPM MUSE SYSTEM Atrial Rate 56 BPM MUSE SYSTEM P-R Interval 172 ms MUSE SYSTEM QRS Duration 78 ms MUSE SYSTEM Q-T Interval 424 ms MUSE SYSTEM QTC Calculated (Bezet) 409 ms MUSE SYSTEM Calculated P [place] 103 degrees MUSE SYSTEM Calculated R [place] 170 degrees MUSE SYSTEM Calculated T [place] 134 degrees MUSE SYSTEM INTERPRETATION Suspect arm lead reversal, interpretation assumes no reversal Sinus bradycardia Right axis deviation Nonspecific ST and T wave abnormality Abnormal ECG No previous ECGs available Confirmed by Alyson Beaulieu MD ([id number]) on 09/07/2022 7:44:56 AM MUSE SYSTEM 09/07/2022 4:04 AM EDT 09/07/2022 7:44 AM EDT Joaquina Vallejo MD ECG ORDERABLES Performing Organization Address City/[facility]/ZIP Co de Phone Number MUSE SYSTEM * (ABNORMAL) Reticulocyte Count (09/07/2022 1:55 AM EDT) Reticulocyte % 0.9 0.7 - 2.5 % [facility] Retic Abs # 0.040 0.020 - 0.110 x10(6)/mcL [facility] Immature Retic% 13.1 0.5 - 13.8 % [facility] Reticulated Hgb 26.8(L) 29.8 - 39.4 pg [facility] Blood Venous Draw / Unknown 09/07/2022 1:55 AM EDT 09/07/2022 2:02 AM EDT Narrative Resulting Agency Comment Spec In Lab Joaquina Vallejo MD HEMATOLOGY ORDERA BLES Performing Organization Address [facility] Co de Phone Number [facility] [place] [address] * (ABNORMAL) Lactate Dehydrogenase (09/07/2022 1:55 AM EDT) Lactate Dehydrogenase 263(H) 110 - 220 unit/L [facility] Blood Venous Draw / Unknown 09/07/2022 1:55 AM EDT 09/07/2022 2:09 AM EDT Narrative Resulting Agency Comment Spec In Lab Joaquina Vallejo MD CHEMISTRY ORDERAB LES Performing Organization Address [facility] Co de Phone Number [facility] [place] [address] * (ABNORMAL) Iron and TIBC (09/07/2022 1:55 AM EDT) Iron 25(L) 30 - 150 mcg/dL [facility] TIBC 350 250 - 450 mcg/dL [facility] Iron Saturation 7(L) 20 - 50 % [facility] Blood Venous Draw / Unknown 09/07/2022 1:55 AM EDT 09/07/2022 2:09 AM EDT Narrative Resulting Agency Comment Spec In Lab Joaquina Vallejo MD CHEMISTRY ORDERAB LES [facility] [place] [address] * (ABNORMAL) Differential, Automated (09/07/2022 1:55 AM EDT) [facility] Neutrophil % 81.3 % [facility] Neutrophil Absolute 7.35(H) 1.70 - 6.10 x10(3)/mc L [facility] Lymph % 10.6 % [facility] Lymphocytes Abs 1.0 0.9 - 3.2 x10(3)/mc L [facility] Monocyte % 6.1 % [facility] Monocyte Abs 0.6 0.3 - 0.9 x10(3)/mc L [facility] Eos % 1.5 % [facility] Eosinophils Abs 0.1 0.0 - 0.4 x10(3)/mc L [facility] Basophil % 0.2 % [facility] Baso Absolute 0.0 0.0 - 0.1 x10(3)/mc L [facility] Immature Gran % 0.30 % [facility] Comment: Immature granulocytes(IG's)percentage and absolute count will include metamyelocytes, myelocytes, and promyelocytes. Blood smears from CBCs yielding IG's will be scanned manually for concordance. If this scan disagrees with the automated IG or if promyelocytes are noted, a manual differential will be performed. Immature Gran Absolute 0.03 0.00 - 0.04 x10(3)/mc L [facility] Blood 09/07/2022 1:55 AM EDT 09/07/2022 2:02 AM EDT Narrative Resulting Agency Comment Spec In Lab Joaquina Vallejo MD HEMATOLOGY ORDERA BLES [facility] [place] [address] * (ABNORMAL) Hemogram (09/07/2022 1:55 AM EDT) White Blood Cell 9.0 4.0 - 9.5 x10(3)/[facility] Red Blood Cell 3.91(L) 4.00 - 5.21 x10(6)/ L [facility] Hemoglobin 9.5(L) 11.7 - 15.5 g/dL [facility] Hematocrit 33.3(L) 35.7 - 45.8 % [facility] Mean Cell Volume 85.2 82.6 - 94.4 fL [facility] Mean Cell Hemoglobin 24.3(L) 27.1 - 32.0 pg [facility] Mean Cell Hemoglobin Concentration 28.5(L) 31.7 - 35.0 g/dL [facility] Platelet 277 145 - 357 x10(3)/mc L [facility] RDW Standard Deviation 51.9(H) 37.0 - 46.0 fL [facility] RDW coefficient of variation 16.7(H) 11.5 - 14.1 % [facility] Mean Platelet Volume 8.9 7.6 - 12.9 fL [facility] NRBC% auto 0.0 % [facility] NRBC Absolute 0.000 0.000 - 0.000 x10(3)/[facility] Blood 09/07/2022 1:55 AM EDT 09/07/2022 2:02 AM EDT Narrative Resulting Agency Comment Spec In Lab Joaquina Vallejo MD HEMATOLOGY ORDERA BLES [facility] [place] [address] * (ABNORMAL) Comprehensive metabolic panel (non-fasting) (09/07/2022 1:55 AM EDT) Glucose 110 65 - 199 mg/dL [facility] Comment:Diabetes: >=200 mg/d L plus symptoms Blood Urea Nitrogen 14 8 - 18 mg/dL [facility] Creatinine 1.74(H) 0.70 - 1.20 mg/dL [facility] Sodium 145 135 - 145 mmol/L [facility] Potassium 4.3 3.5 - 5.0 mmol/L [facility] Comment: Please note: ??Patients with WBC >100,000 may have falsely elevated Potassium levels. ??For accurate Potassium quantification in these patients send serum separator tube (gold top) for subsequent determinations. ??Contact the Clinical Chemistry Laboratory if there are any questions. Chloride 120(H) 98 - 107 mmol/L [facility] Comment:result rechecked-[facility] Carbon Dioxide 17(L) 22 - 31 mmol/L [facility] Anion Gap 8 5 - 15 mmol/L [facility] Calcium 9.5 8.5 - 10.5 mg/dL [facility] Protein, Total 6.1 6.1 - 8.0 g/dL [facility] Albumin 3.8 3.2 - 5.2 g/dL [facility] Aspartate Aminotransferase 10 0 - 30 unit/L [facility] Alanine Aminotransferase 11 0 - 30 unit/L [facility] Alkaline Phosphatase 136(H) 35 - 105 unit/L [facility] Bilirubin, Total <0.2(L) 0.2 - 1.3 mg/dL [facility] Est Glomerular Filtration Rate 36(L) >=60 mL/min/1. 73 m?? [facility] Comment: This patient's estimated GFR was [...] Resulting Agency Comment Spec In Lab Joaquina L Vallejo MD CHEMISTRY ORDERAB LES Performing Organization Address City/[facility] Co de Phone Number [facility] [place] [address] * Magnesium (09/07/2022 1:55 AM EDT) Magnesium 0.99 0.69 - 1.07 mmol/L [facility] Blood 09/07/2022 1:55 AM EDT 09/07/2022 2:02 AM EDT Narrative Resulting Agency Comment Spec In Lab Joaquina Vallejo MD CHEMISTRY ORDERAB LES Performing Organization Address [facility] Co de Phone Number [facility] [place] [address] * Phosphorus (09/07/2022 1:55 AM EDT) Phosphorus 2.5 2.5 - 4.5 mg/dL [facility] Blood 09/07/2022 1:55 AM EDT 09/07/2022 2:02 AM EDT Narrative Resulting Agency Comment Spec In Lab Joaquina Vallejo MD CHEMISTRY ORDERAB LES Performing Organization Address [facility] Co de Phone Number [facility] [place] [address] * (ABNORMAL) Hepatic Function Panel (09/07/2022 1:55 AM EDT) Protein, Total 6.0(L) 6.1 - 8.0 g/dL [facility] Albumin 3.8 3.2 - 5.2 g/dL [facility] Aspartate Aminotransferase 13 0 - 30 unit/L [facility] Alanine Aminotransferase 15 0 - 30 unit/L [facility] Alkaline Phosphatase 134(H) 35 - 105 unit/L [facility] Bilirubin, Total <0.2(L) 0.2 - 1.3 mg/dL [facility] Bilirubin, Direct 0.1 0.0 - 0.3 mg/dL [facility] Blood 09/07/2022 1:55 AM EDT 09/07/2022 2:01 AM EDT Narrative Resulting Agency Comment Spec In Lab Joaquina Vallejo MD CHEMISTRY ORDERAB LES Performing Organization Address City/[facility] Co de Phone Number [facility] [place] [address] * (ABNORMAL) [place] level (09/07/2022 1:55 AM EDT) [place] 1.52(Criti robbie) 0.60 - 1.20 mmol/L [facility] Comment: Called by: JAGRUTI, Read back by: Km Hilliard, Date/Time:09/07/22 02:49. Blood 09/07/2022 1:55 AM EDT 09/07/2022 2:01 AM EDT Narrative Resulting Agency Comment Spec In Lab Joaquina Vallejo MD CHEMISTRY ORDERAB LES Performing Organization Address [facility] Co de Phone Number [facility] [place] [address] * Lipase (09/06/2022 7:49 PM EDT) Pathologist [facility] Lipase 47 0 - 60 unit/L [facility] Blood No Charge / Unknown 09/06/2022 7:49 PM EDT 09/06/2022 8:03 PM EDT Narrative Resulting Agency Comment Spec In Lab Xander Coombs MD CHEMISTRY ORDERABLE S Performing Organization Address [facility] Co de Phone Number [facility] [place] [address] * (ABNORMAL) Differential, Automated (09/06/2022 7:49 PM EDT) Neutrophil % 76.8 % [facility] Neutrophil Absolute 6.43(H) 1.70 - 6.10 x10(3)/ L [facility] Lymph % 14.2 % [facility] Lymphocytes Abs 1.2 0.9 - 3.2 x10(3)/mc L [facility] Monocyte % 6.2 % [facility] Monocyte Abs 0.5 0.3 - 0.9 x10(3)/mc L [facility] Eos % 2.1 % [facility] Eosinophils Abs 0.2 0.0 - 0.4 x10(3)/[facility] Basophil % 0.5 % [facility] ITAL LABORATORY Baso Absolute 0.0 0.0 - 0.1 x10(3)/ L [facility] Immature Gran % 0.20 % [facility] Comment: Immature granulocytes(IG's)percentage and absolute count will include metamyelocytes, myelocytes, and promyelocytes. Blood smears from CBCs yielding IG's will be scanned manually for concordance. If this scan disagrees with the automated IG or if promyelocytes are noted, a manual differential will be performed. Immature Gran Absolute 0.02 0.00 - 0.04 x10(3)/[facility] Blood No Charge / Unknown 09/06/2022 7:49 PM EDT 09/06/2022 8:04 PM EDT Narrative Resulting Agency Comment Spec In Lab Iggy Lynch MD HEMATOLOGY ORDERA BLES [facility] [place] [address] * (ABNORMAL) Hemogram (09/06/2022 7:49 PM EDT) White Blood Cell 8.4 4.0 - 9.5 x10(3)/ L [facility] Red Blood Cell 4.07 4.00 - 5.21 x10(6)/[facility] Hemoglobin 9.8(L) 11.7 - 15.5 g/dL [facility] Hematocrit 34.7(L) 35.7 - 45.8 % [facility] Mean Cell Volume 85.3 82.6 - 94.4 fL [facility] Mean Cell Hemoglobin 24.1(L) 27.1 - 32.0 pg [facility] Mean Cell Hemoglobin Concentration 28.2(L) 31.7 - 35.0 g/dL [facility] Platelet 276 145 - 357 x10(3)/ L [facility] RDW Standard Deviation 51.7(H) 37.0 - 46.0 fL [facility] RDW coefficient of variation 16.5(H) 11.5 - 14.1 % [facility] Mean Platelet Volume 9.3 7.6 - 12.9 fL [facility] NRBC% auto 0.0 % [facility] NRBC Absolute 0.000 0.000 - 0.000 x10(3)/mc L [facility] Blood No Charge / Unknown 09/06/2022 7:49 PM EDT 09/06/2022 8:04 PM EDT Narrative Resulting Agency Comment Spec In Lab Iggy Lynch MD HEMATOLOGY ORDERA BLES Performing Organization Address City/[facility]/ZIP Co de Phone Number [facility] [place] [address] * Blue Tube HOLD (09/06/2022 7:49 PM EDT) Blue Hold Sample in lab. [facility] Blood 09/06/2022 7:49 PM EDT 09/06/2022 8:01 PM EDT Iggy Lynch MD HEMATOLOGY ORDERA BLES Performing Organization Address City/[facility]/ZIP Co de Phone Number [facility] [place] [address] * Lavender Tube HOLD (09/06/2022 7:49 PM EDT) Lavender Hold Sample in lab. [facility] Blood 09/06/2022 7:49 PM EDT 09/06/2022 8:01 PM EDT Iggy Lynch MD HEMATOLOGY ORDERA BLES Performing Organization Address City/[facility]/ZIP Co de Phone Number [facility] [place] [address] * Green Tube HOLD (09/06/2022 7:49 PM EDT) Green Hold Sample in lab. [facility] Blood 09/06/2022 7:49 PM EDT 09/06/2022 8:01 PM EDT Iggy Lynch MD CHEMISTRY ORDERAB LES [facility] [address] * Gold Tube HOLD (09/06/2022 7:49 PM EDT) Gold Hold Sample in lab. [facility] Blood 09/06/2022 7:49 PM EDT 09/06/2022 8:01 PM EDT Iggy Lynch MD CHEMISTRY ORDERAB LES Performing Organization Address City/[facility]/ZIP Co de Phone Number [facility] [place] [address] * Urine Hold (09/06/2022 7:23 PM EDT) Hold, Urine Sample in lab. [facility] Urine Urine / Unknown 09/06/2022 7 :23 PM EDT 09/06/2022 7:23 PM EDT Xander Coombs MD URINE ORDERABLES Performing Organization Address [facility]/ZIP Co de Phone Number [facility] [place] [address] * (ABNORMAL) [place] level (09/06/2022 6:55 PM EDT) [place] 2.02(Criti robbie) 0.60 - 1.20 mmol/L [facility] Comment:CALLED CORTEZ BRADYUN A T [id number] JAL Blood 09/06/2022 6:55 PM EDT 09/06/2022 7:24 PM EDT Narrative Resulting Agency Comment Spec In Lab Iggy Lynch MD CHEMISTRY ORDERAB LES Performing Organization Address City/[facility]/ZIP Co de Phone Number [facility] [place] [address] * (ABNORMAL) Basic Metabolic Panel (non-fasting) (09/06/2022 6:55 PM EDT) Glucose 104 65 - 199 mg/dL [facility] Comment:Diabetes: >=200 mg/d L plus symptoms Blood Urea Nitrogen 14 8 - 18 mg/dL [facility] Creatinine 1.86(H) 0.70 - 1.20 mg/dL [facility] Sodium 138 135 - 145 mmol/L [facility] Potassium 4.5 3.5 - 5.0 mmol/L [facility] Comment: Please note: ??Patients with WBC >100,000 may have falsely elevated Potassium levels. ??For accurate Potassium quantification in these patients send serum separator tube (gold top) for subsequent determinations. ??Contact the Clinical Chemistry Laboratory if there are any questions. Chloride 110(H) 98 - 107 mmol/L [facility] Carbon Dioxide 19(L) 22 - 31 mmol/L [facility] Anion Gap 9 5 - 15 mmol/L [facility] Calcium 10.4 8.5 - 10.5 mg/dL [facility] Est Glomerular Filtration Rate 33(L) >=60 mL/min/1. 73 m?? [facility] Comment: This patient's estimated GFR was [...] Lab Iggy Lynch MD CHEMISTRY ORDERAB LES [facility] [place] [address] * EKG 12 Lead (09/06/2022 6:19 PM EDT) Ventricular rate 56 BPM MUSE SYSTEM Atrial Rate 56 BPM MUSE SYSTEM P-R Interval 168 ms MUSE SYSTEM QRS Duration 92 ms MUSE SYSTEM Q-T Interval 424 ms MUSE SYSTEM QTC Calculated (Bezet) 409 ms MUSE SYSTEM Calculated P [place] 63 degrees MUSE SYSTEM Calculated R [place] -2 degrees MUSE SYSTEM Calculated T [place] 36 degrees MUSE SYSTEM INTERPRETATION Sinus bradycardia with marked sinus arrhythmia Minimal voltage criteria for LVH, may be normal variant Nonspecific T wave abnormality Abnormal ECG No previous ECGs available Confirmed by MD Chip, Mukesh ([id number]) on 09/08/2022 12:44:45 PM MUSE SYSTEM 09/06/2022 6:19 PM EDT 09/08/2022 12:44 PM EDT Joaquina Vallejo MD ECG ORDERABLES MUSE SYSTEM documented in this encounter Visit Diagnoses Diagnosis [place] intoxication, accidental or unintentional, initial encounter- Primary [place] intoxication, accidental or unintentional, initial encounter Stage 3b chronic kidney disease (CKD) Elevated lithium level Stage 3b chronic kidney disease (CKD) documented in this encounter Admitting Diagnoses Diagnosis [place] intoxication, accidental or unintentional, initial encounter documented [...] on 09/07/22 at 0015, Until Discontinued, Routine Given 09/09/2022 [...] on 09/07/22 at 0015, Until Discontinued, Routine Given 09/09/2022 [...] on 09/07/22 at 0015, Until Discontinued, Routine Given 09/08/2022 [...] 09/07/22 at 0730, Administer over 120 Minutes New [...] Intravenous, 2 TIMES DAILY, First dose on [place] 09/07/22 at 0015, Until Discontinued, Routine Given 09/09/2022 [...] 0811 (Given - Provider: Ann Frank RN) 06 (Given - Provider: Mulu Rome, [place]) famotidine (Pepcid) tablet 20 mg 20 mg, Oral, 2 TIMES DAILY, First dose on 09/07/22 at 0015, Until Discontinued, Routine 0014 (Given - Provider: Km Hilliard RN)0840 (Given - Provider: Karlee Bolden RN)2041 (Given - Provider: Maria Elena Noriega, [place]ALIA) 08 (Given - Provider: Ann Frank RN)2099 (Given - Provider: Mulu Rome, [place]) 1044 (Given - Provider: Monica Mckee LPN) ferrous sulfate EC (FeroSul) tablet 325 mg 325 mg, Oral, DAILY WITH BREAKFAST, First dose on 09/08/22 at 0800, Until Discontinued, DO NOT CRUSH OR OPEN. Take with food or water. , Routine 08 (Given - Provider: Ann Frank RN) 1044 (Given - Provider: Monica Mckee LPN) heparin (porcine) (5,000 units/1 mL) subcutaneous injection 5,000 Units 5,000 Units, Subcutaneous, EVERY 12 HOURS SCHEDULED (2 times per day), First dose on 09/07/22 at 0015, Until Discontinued, Routine 0014 (Given - Provider: Km Hilliard RN)0840 (Given - Provider: Karlee Bolden RN)2042 (Given - Provider: Maria Elena Noriega RN) 0811 (Given - Provider: Ann Frank RN)2019 (Given - Provider: Mulu Rome, [place]) 1043 (Given - Provider: Monica Mckee LPN) lamoTRIgine [...] 0812 (Given - Provider: Ann Frank RN) 06 (Given - Provider: Mulu Rome RN) magnesium sulfate 2 g in sterile water 50 mL infusion (COMPLETED) 2 g, Intravenous, ONCE, 1 dose, On 09/07/22 at 0730, Administer over 120 Minutes 0700 (New Bag - Provider: Km Hilliard RN)09 (Stopped - Provider: Karlee Bolden RN) sodium chloride 0.9 % (flush) (BD PosiFlush Normal Saline 0.9) flush 5 mL 5 mL, Intravenous, 2 TIMES DAILY, First dose on 09/07/22 at 0015, Until Discontinued, Routine 13 (Given - Provider: Km Hilliard RN)09 (Given - Provider: Iggy Arcos RN)2044 (Given - Provider: Maria Elena Noriega RN) 0900 (Not Given - Provider: Ann Frank RN - Reason: See comment - Comment: IV accidentally dislodged this morning)2019 (Given - Provider: Mulu Rome, [place]) 1050 (Given - Provider: Monica Mceke LPN) Continuous Medication Order 09/07/2022 09/08/2022 09/09/2022 lactated ringers infusion (CANCELED) 150 mL/hr, Intravenous, CONTINUOUS, Starting on 09/07/22 at 0730, Until 09/07/22 at 0756 0652 (New Bag - Provider: Km Hilliard RN) lactated ringers infusion (CANCELED) 150 mL/hr, Intravenous, CONTINUOUS, Starting on 09/07/22 at 0845, Until 09/08/22 at 1244 0845 (Continued Bag - Provider: Simona House, [place])1401 (New Bag - Provider: Iggy Arcos RN)2049 (New Bag - Provider: Maria Elena oNriega, [place]) 0354 (Rate/Dose Verify - Provider: Maria Elena Noriega RN) sodium chloride 0.9% infusion (CANCELED) 150 mL/hr, Intravenous, CONTINUOUS, Starting on 09/06/22 at 2030, Until 09/07/22 at 0630 0414 (New Bag - Provider: Km Hilliard, [place]AL[place])0630 (Stopped - Provider: Km Hilliard RN) PRN Medication Order 09/07/2022 09/08/2022 09/09/2022 acetaminophen (Tylenol) tablet 650 mg 650 mg, Oral, EVERY 6 HOURS PRN, Starting on 09/06/22 at 2324, Until Tu09/09/22 at 1421, Pain, Fever, Administer for temperature [...] Routine documented in this encounter Care Teams Supervisor Pyrotechnic Loading Relationship Specialty Start Date End Date Haylie Steward MD [facility] [address] PCP - General General Internal Medicine 08/04/22 documented as of this encounter
--- OUTSIDE RECORDS SUMMARY | 2024-04-29 01:58 | XMS_ITS | Encounter Summary ---
Author Organization [place] [address] Care Team Providers Care Basic Sciences Dean Name Role Phone Haylie Steward MD Primary Care Provider [phone] Encounter Details Date Type Department Care Team [...] Scheduled View Only Radiation Oncology at [address] [phone] 05/02/2024 3:45 PM EST Scheduled View Only Radiation Oncology at [address] [phone] 05/03/2024 1:45 PM EST Scheduled View Only Radiation Oncology at [address] [phone] 05/03/2024 2:15 PM EST Office Visit Radiation Oncology at [address] [phone] Ofe Fonseca MD [facility] RADI[place] [address] 05/05/2024 8:15 AM EST Scheduled View Only Radiation Oncology at [address] [phone] 05/06/2024 12:30 PM EST Scheduled View Only Radiation Oncology at [address] [phone] 05/09/2024 12:30 PM EST Scheduled View Only Radiation Oncology at [address] [phone] 05/10/2024 2:30 PM EST Scheduled View Only Radiation Oncology at [address] [phone] 05/10/2024 3:15 PM EST Office Visit Radiation Oncology at [address] [phone] Ofe Fonseca MD [facility] [place] [address] 05/11/2024 2:30 PM EST Scheduled View Only Radiation Oncology at [address] [phone] 05/11/2024 3:15 PM EST Scheduled View Only Radiation Oncology at [address] [phone] Ofe Fonseca MD [facility] [place] [address] 05/12/2024 2:45 PM EST Scheduled View Only Radiation Oncology at [address] [phone] 06/03/2024 3:30 PM EST Appointment Ultrasound at [place] [phone] Mira Hutchison [facility] [place] [address] 06/23/2024 4:00 PM EST Appointment Mammography/DXA at [place] [phone] Miryam Feliciano MD [facility] [place] [address] 07/12/2024 8:00 AM EDT Laboratory Appointment Lab [address] [place], [place] [phone] 07/12/2024 9:30 AM EDT Office Visit Nephrology Hypertension at [place] [phone] Sharmin Jean-Baptiste, [facility] [place] [address] 07/13/2024 10:30 AM EDT Laboratory Appointment Lab at [facility] Hematology Oncology [address] [place] [phone] 07/13/2024 11:30 AM EDT Office Visit Hematology [place] [phone] Salena Alvares [facility] [place] [address] 07/13/2024 12:45 PM EDT Appointment Hematology [place] [phone] documented as of this encounter Visit Diagnoses Not on filedocumented in this encounter Care Teams Basic Sciences Dean Relationship Specialty Start Date End Date Haylie Steward MD [facility] [address] PCP - General General Internal Medicine 08/04/22 documented as of this encounter
--- OUTSIDE RECORDS SUMMARY | 2024-04-29 01:58 | XMS_ITS | Encounter Summary ---
Author Organization [facility] [place] [address] Care Team Providers Care Customer Assistance Representative Name Role Phone Haylie Steward MD Primary Care Provider [phone] Encounter Details Date Type Department Care Team (Late st Contact Info) Description 09/08/2022 Telephone Psychiatry [place] [phone] Shannan Marie, RN PSYCHIATRY Social History Tobacco Use Types Packs/Day Years Used Date Smoking Tobacco: Never Smokeless Tobacco: Never Alcohol Use Standard Drinks/Week Comments Not Currently 0 (1 standard drink = 0.6 oz pur e alcohol) [facility] Inpatient Questions [...] Scheduled View Only Radiation Oncology at [address] [phone] 05/02/2024 3:45 PM EST Scheduled View Only Radiation Oncology at [address] [phone] 05/03/2024 1:45 PM EST Scheduled View Only Radiation Oncology at [address] [phone] 05/03/2024 2:15 PM EST Office Visit Radiation Oncology at [address] [phone] Ofe Fonseca MD [facility] [place] [address] 05/05/2024 8:15 AM EST Scheduled View Only Radiation Oncology at [address] [phone] 05/06/2024 12:30 PM EST Scheduled View Only Radiation Oncology at [address] [phone] 05/09/2024 12:30 PM EST Scheduled View Only Radiation Oncology at [address] [phone] 05/10/2024 2:30 PM EST Scheduled View Only Radiation Oncology at [address] [phone] 05/10/2024 3:15 PM EST Office Visit Radiation Oncology at [address] [phone] Ofe Fonseca MD [facility] [place] [address] 05/11/2024 2:30 PM EST Scheduled View Only Radiation Oncology at [address] [phone] 05/11/2024 3:15 PM EST Scheduled View Only Radiation Oncology at [address] [phone] Ofe Fonseca MD [facility] [place] [address] 05/12/2024 2:45 PM EST Scheduled View Only Radiation Oncology at [address] [phone] 06/03/2024 3:30 PM EST Appointment Ultrasound at [place] [phone] Mira Hutchison SETTLEMENT CLERK [facility] [place] [address] 06/23/2024 4:00 PM EST Appointment Mammography/DXA at [place] [phone] Miryam Feliciano MD [facility] [place] [place] [address] 07/12/2024 8:00 AM EDT Laboratory Appointment Lab [address] [place] [phone] 07/12/2024 9:30 AM EDT Office Visit Ne[place] [phone] Sharmin Jean-Baptiste [facility] [place] [address] 07/13/2024 10:30 AM EDT Laboratory Appointment Lab at [facility] Hematology Oncology [address] [place] [phone] 07/13/2024 11:30 AM EDT Office Visit Hematology [place] [address] Salena Alvares APRN [facility] [place] [address] 07/13/2024 12:45 PM EDT Appointment Hematology [place] [address] documented as of this encounter Visit Diagnoses Not on filedocumented in this encounter Care Teams Customer Assistance Representative Relationship Specialty Start Date [place] [address] PCP - General General Internal Medicine 08/04/22 documented as of this encounter
--- OUTSIDE RECORDS SUMMARY | 2024-04-29 01:58 | XMS_ITS | Encounter Summary ---
Author Organization [facility] [place] [address] Care Team Providers Care Market Risk Manager Name Role Phone Haylie Steward MD Primary Care Provider + [phone] Encounter Details Date Type Department Care Team (Late st Contact Info) Description 09/06/2022 [place] [phone] Wilmar Grande MD [facility] [place] [address] Social History Tobacco Use Types Packs/Day Years [...] call the hospital. I informed the oncall vice president of talent management about the situation. Wilmar Grande MD PGY3 documented in this encounter Plan of Treatment Upcoming Encounters Date Type Department Care Team (Latest Contact Info) Description 04/29/2024 3:00 PM EST Scheduled View Only Radiation Oncology at [address] [phone] 05/02/2024 3:45 PM EST Scheduled View Only Radiation Oncology at [address] [phone] 05/03/2024 1:45 PM EST Scheduled View Only Radiation Oncology at [address] [phone] 05/03/2024 2:15 PM EST Office Visit Radiation Oncology at [address] [phone] Ofe Fonseca MD [facility] DR RADIATION [place] [address] 05/05/2024 8:15 AM EST Scheduled View Only Radiation Oncology at [address] [phone] 05/06/2024 12:30 PM EST Scheduled View Only Radiation Oncology at [address] [phone] 05/09/2024 12:30 PM EST Scheduled View Only Radiation Oncology at [address] [phone] 05/10/2024 2:30 PM EST Scheduled View Only Radiation Oncology at [address] [phone] 05/10/2024 3:15 PM EST Office Visit Radiation Oncology at [address] [phone] Ofe Fonseca MD [facility] DR RADIATION [place] [address] 05/11/2024 2:30 PM EST Scheduled View Only Radiation Oncology at [address] [phone] 05/11/2024 3:15 PM EST Scheduled View Only Radiation Oncology at [address] [phone] Ofe Fonseca MD [facility] [address] RADIATION [place] [address] 05/12/2024 2:45 PM EST Scheduled View Only Radiation Oncology at [address] [phone] 06/03/2024 3:30 PM EST Appointment Ultrasound at [address] Mira Hutchison BOAT LOADER [facility] [place] [address] 06/23/2024 4:00 PM EST Appointment Mammography/DXA at [place] [phone] Miryam Feliciano MD [facility] MEDICAL [place] [address] 07/12/2024 8:00 AM EDT Laboratory Appointment Lab [address] [phone] 07/12/2024 9:30 AM EDT Office Visit Nephrology Hypertension at [place] [phone] Sharmin Jean-Baptiste BOAT LOADER [facility] [place] [address] 07/13/2024 10:30 AM EDT Laboratory Appointment Lab at [facility] Hematology Oncology [address] [place] [phone] 07/13/2024 11:30 AM EDT Office Visit Hematology [place] [address] Salena Alvares APRN [facility] DR MEDICAL [place] [address] 07/13/2024 12:45 PM EDT Appointment Hematology [place] [phone] documented as of this encounter Visit Diagnoses Not on filedocumented in this encounter Care Teams Market Risk Manager Relationship Specialty Start Date End [place] [address] PCP - General General Internal Medicine 08/04/22 documented as of this encounter
--- OUTSIDE RECORDS SUMMARY | 2024-04-29 01:58 | XMS_ITS | Encounter Summary ---
Author Organization [facility] [place] [address] Care Team Providers Care Accident Report Clerk Name Role Phone Haylie Steward MD [...] Scheduled View Only Radiation Oncology at [address] [phone] 05/02/2024 3:45 PM EST Scheduled View Only Radiation Oncology at [address] [phone] 05/03/2024 1:45 PM EST Scheduled View Only Radiation Oncology at [address] [phone] 05/03/2024 2:15 PM EST Office Visit Radiation Oncology at [address] [phone] Ofe Fonseca MD [facility] [place] [address] 05/05/2024 8:15 AM EST Scheduled View Only Radiation Oncology at [address] [phone] 05/06/2024 12:30 PM EST Scheduled View Only Radiation Oncology at [address] [phone] 05/09/2024 12:30 PM EST Scheduled View Only Radiation Oncology at [address] [phone] 05/10/2024 2:30 PM EST Scheduled View Only Radiation Oncology at [address] [phone] 05/10/2024 3:15 PM EST Office Visit Radiation Oncology at [address] [phone] Ofe Fonseca MD [facility] [place] [address] 05/11/2024 2:30 PM EST Scheduled View Only Radiation Oncology at [address] [phone] 05/11/2024 3:15 PM EST Scheduled View Only Radiation Oncology at [address] [phone] Ofe Fonseca MD [facility] [place] [address] 05/12/2024 2:45 PM EST Scheduled View Only Radiation Oncology at [address] [phone] 06/03/2024 3:30 PM EST Appoint[place] [phone] Mira Hutchison APRN [facility] [place] [address] 06/23/2024 4:00 PM EST Appointment Mammography/DXA at [place] [address] Miryam Feliciano MD [facility] [place] [address] 07/12/2024 8:00 AM EDT Laboratory Appointment Lab [place] [address] 07/12/2024 9:30 AM EDT Office Visit Nephrology Hypertension at [place] [address] Sharmin Jean-Baptiste, [facility] [place] [address] 07/13/2024 10:30 AM EDT Laboratory Appointment Lab at [facility] Hematology Oncology [address] [place] [address] 07/13/2024 11:30 AM EDT Office Visit Hematology and Oncology at [place] [address] Salena Alvares, [facility] [place] [address] 07/13/2024 12:45 PM EDT Appointment Hematology and Oncology at [place] [address] documented as of this encounter Visit Diagnoses Not on filedocumented in this encounter Care Teams Accident Report Clerk Relationship Specialty Start Date End Date Haylie Steward MD [facility] [address] PCP - General General Internal Medicine 08/04/22 documented as of this encounter
--- OUTSIDE RECORDS SUMMARY | 2024-04-29 01:58 | XMS_ITS | Encounter Summary ---
[place] [address] Care Team Providers Care Power Plant Electrician Name Role Phone Haylie Steward MD Primary Care Provider + [phone] Reason for Referral * Consultation (Routine) - Closed Specialty Diagnoses / Procedures Referred By Contac t Referred To Contact Endocrinology Diagnoses Stage 3b chronic kidney disease Hyperparathyroidism Sharmin Jean-Bpatiste APRN [facility] [place] [address] [facility] [address] [place] [phone] Referral ID Status Reason Start Date Expiration Date V isits Requested Visits Authorized [id number] Closed Consult, Test & Treat 08/08/2022 08/08/2023 1 1 Reason for Visit * Consultation (Routine) - Closed Specialty Diagnoses / Procedures Referred By Contac t Referred To Contact Nephrology Diagnoses Stage 3 chronic kidney disease, unspecified whether stage 3a or 3b CKD Michelet Monge MD [facility] [place] [address] [facility] [address] [place] [phone] Referral ID Status Reason Start Date Expiration Date V isits Requested Visits Authorized [id number] Closed Consult, Test & Treat 07/14/2022 07/14/2023 1 1 Encounter Details Date Type Department Care Team (Latest Contact Info) Description 08/04/2022 1:00 PM EDT Office Visit Nephrology Hypertension [place] [place] [phone] Sharmin Jean-Baptiste, JULI[facility] [place] [place] [address] Stage 3b chronic kidney disease; Hyperparathyroidism; Stage [...] 1:00 PM EDT Hypertension/Nephrology Consultation Nataliya Landrumblake [id number] 1975 ID: [id number] y.o. old female Cseen at the request of Dr. Michelet Monge for evaluation of CKD. Past Medical History: Patient Active Problem List Diagnosis Code ??? Stage 3b chronic kidney disease (CKD) N18.32 ??? Hyperparathyroidism E21.3 ??? Anemia D64.9 History of Present Illness: In January she moved from [place] to [place] to live with her parents and transferred her care locally. She began seeing Dr. Sivakumar Monge in behavioral health for care and management of her bipolar disorder. History of bipolar affective disorder, type I, and has been on lithium since 2004. Patients understanding of her nephrology appointment today is: My doctor was concerned about me staying on lithium. My other doctor in [place] told me my creat was high, years [...] ANDFOR INSOMNIA ??? [DISCONTINUED] Lactobac. 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 Long-term administration of lithium is [...] questions or concerns. >the total time spent [id number] AND total time the provider spent counseling [...] Scheduled View Only Radiation Oncology at [address] [phone] 05/02/2024 3:45 PM EST Scheduled View Only Radiation Oncology at [address] [phone] 05/03/2024 1:45 PM EST Scheduled View Only Radiation Oncology at [address] [phone] 05/03/2024 2:15 PM EST Office Visit Radiation Oncology at [address] [phone] Ofe Fonseca MD [facility] [place] [address] 05/05/2024 8:15 AM EST Scheduled View Only Radiation Oncology at [address] [phone] 05/06/2024 12:30 PM EST Scheduled View Only Radiation Oncology at [address] [phone] 05/09/2024 12:30 PM EST Scheduled View Only Radiation Oncology at [address] [phone] 05/10/2024 2:30 PM EST Scheduled View Only Radiation Oncology at [address] [phone] 05/10/2024 3:15 PM EST Office Visit Radiation Oncology at [address] [phone] Ofe Fonseca MD [facility] RADIATION [place] [address] 05/11/2024 2:30 PM EST Scheduled View Only Radiation Oncology at [address] [phone] 05/11/2024 3:15 PM EST Scheduled View Only Radiation Oncology at [address] [phone] Ofe Fonseca MD [facility] [place] [address] 05/12/2024 2:45 PM EST Scheduled View Only Radiation Oncology at [address] [phone] 06/03/2024 3:30 PM EST Appointment Ultrasound at [place] [phone] Mira Hutchison [facility] [place] [address] 06/23/2024 4:00 PM EST Appointment Mammography/DXA at [place] [phone] Miryam Feliciano MD [facility] [place] [address] 07/12/2024 8:00 AM EDT Laboratory Appointment Lab [address] [place], [place] [phone] 07/12/2024 9:30 AM EDT Office Visit Nephrology Hypertension at [place] [phone] Sharmin Jean-Baptiste [facility] [place] [address] 07/13/2024 10:30 AM EDT Laboratory Appointment Lab at [facility] [place] [place] Hematology Oncology [address] [place] [phone] 07/13/2024 11:30 AM EDT Office Visit H[place] [address] Salena Alvares [facility] [place] [address] 07/13/2024 12:45 PM EDT Appointment [place] [address] Scheduled Referrals Name Type Priority Associated Diagnoses [...] chronic kidney disease DIFFERENTIAL, AUTOMATED Routine 08/05/19 1:58 PM EDT Stage 3b chronic kidney [...] (08/04/2022 1:58 PM EDT) Plat estimate Normal [facility] RBC Morphology Abnormal [facility] Microcyte 1-5 /HPF [facility] Hypochromia Moderate [facility] Ovalocytes 1-5 /HPF [facility] Blood 08/04/2022 1:58 PM EDT 08/04/2022 2:04 PM EDT Narrative Resulting Agency Comment Spec In Lab Sharmin Mckenzieoll SENIOR ENGINEER HEMATOLOGY ORDERA BLES [facility] [place] [address] * (ABNORMAL) Differential, Automated (08/04/2022 1:58 PM EDT) Neutrophil % 71.9 % [facility] Neutrophil Absolute 6.88(H) 1.70 - 6.10 x10(3)/mc L [facility] Lymph % 18.9 % [facility] Lymphocytes Abs 1.8 0.9 - 3.2 x10(3)/mc L [facility] Monocyte % 6.4 % [facility] Monocyte Abs 0.6 0.3 - 0.9 x10(3)/mc L [facility] Eos % 2.3 % [facility] Eosinophils Abs 0.2 0.0 - 0.4 x10(3)/mc L [facility] Basophil % 0.3 % [facility] Baso Absolute 0.0 0.0 [...] x10(3)/ L [facility] Blood 08/04/2022 1:58 PM EDT 08/04/2022 2:04 PM EDT Narrative Resulting Agency Comment Spec In Lab Sharmin Jean-Baptiste SENIOR ENGINEER HEMATOLOGY ORDERA BLES [facility] [place] [address] * (ABNORMAL) Hemogram (08/04/2022 1:58 PM EDT) White Blood Cell 9.6(H) 4.0 - 9.5 x10(3)/[facility] LABORAT[facility] Red Blood Cell 4.20 4.00 - 5.21 x10(6)/[facility] LAB[facility] Hemoglobin 9.9(L) 11.7 - 15.5 g/dL [facility] Hematocrit 33.9(L) 35.7 - 45.8 % [facility] Mean Cell Volume 80.7(L) 82.6 - 94.4 fL [facility] Mean Cell Hemoglobin 23.6(L) 27.1 - 32.0 pg [facility] Mean Cell Hemoglobin Concentration 29.2(L) 31.7 - 35.0 g/dL [facility] Platelet 316 145 - 357 x10(3)/[facility] LABORATORY RDW Standard Deviation 48.0(H) 37.0 - 46.0 fL [facility] RDW coefficient of variation 16.4(H) 11.5 - 14.1 % [facility] Mean Platelet Volume 9.1 7.6 - 12.9 fL [facility] NRBC% auto 0.0 % [facility] NRBC Absolute 0.000 0.000 - 0.000 x10(3)/[facility] Blood 08/04/2022 1:58 PM EDT 08/04/2022 2:04 PM EDT Narrative Resulting Agency Comment Spec In Lab Sharmin Jean-Baptiste SENIOR ENGINEER HEMATOLOGY ORDERA BLES Performing Organization Address City/[facility]/ZIP Co de Phone Number [facility] [place] [address] * Protein Electrophoresis, serum (08/04/2022 1:58 PM EDT) Pathologist [facility] Total Prot Electrophoresis 6.8 6.1 - 8.0 g/dL [facility] Albumin Electrophoresis 4.43 3.20 - 5.20 g/dL [facility] Alpha 1 Globulin 0.16 0.10 - 0.30 g/dL [facility] Alpha 2 Globulin 0.77 0.40 - 0.90 g/dL [facility] Beta Globulin 0.72 0.50 - 1.00 g/dL [facility] Gamma Globulin 0.73 0.50 - 1.30 g/dL [facility] M1 Band None Detected None Detected [facility] Blood 08/04/2022 1:58 PM EDT 08/04/2022 2:04 PM EDT Narrative Resulting Agency Comment Spec In Lab Sharmin Jean-Baptiste SENIOR ENGINEER CHEMISTRY ORDERAB LES Performing Organization Address [facility]/ZIP Co de Phone Number [facility] [place] [address] * Free Light Chains, Serum (08/04/2022 1:58 PM EDT) [facility] [place] Free Light Chain 2.45 0.72 - 2.75 mg/dL [facility] Lambda Free Light Chain 2.05 0.57 - 2.15 mg/dL [facility] [place]/Lambda FLC Ratio 1.1951 0.4000 - 2.5800 [facility] Blood 08/04/2022 1:58 PM EDT 08/04/2022 2:04 PM EDT Narrative Resulting Agency Comment Spec In Lab Sharmin Jean-Baptiste SENIOR ENGINEER CHEMISTRY ORDERAB LES Performing Organization Address City/[facility]/ZIP Co de Phone Number [facility] [place] [address] * Vitamin D, 25-Hydroxy (08/04/2022 1:58 PM EDT) Vitamin D Total 25 OH 32 21 - 100 ng/mL [facility] Vit D Interp Sufficient [facility] Blood 08/04/2022 1:58 PM EDT 08/04/2022 2:04 PM EDT Narrative Resulting Agency Comment Spec In Lab Sharmingilberto Jean-Baptiste SENIOR ENGINEER CHEMISTRY ORDERAB LES Performing Organization Address City/[facility] Co de Phone Number [facility] [place] [address] * (ABNORMAL) PTH (08/04/2022 1:58 PM EDT) Parathyroid Hormone 187(H) 15 - 65 pg/mL [facility] Blood 08/04/2022 1:58 PM EDT 08/04/2022 2:04 PM EDT Narrative Resulting Agency Comment Spec In Lab Sharmin L Estiven SENIOR ENGINEER CHEMISTRY ORDERAB LES Performing Organization Address [facility] Co de Phone Number [facility] [place] [address] * Phosphorus (08/04/2022 1:58 PM EDT) Phosphorus 3.3 2.5 - 4.5 mg/dL [facility] Blood 08/04/2022 1:58 PM EDT 08/04/2022 2:04 PM EDT Narrative Resulting Agency Comment Spec In Lab Sharmingilberto Jean-Baptiste SENIOR ENGINEER CHEMISTRY ORDERAB LES Performing Organization Address [facility] Co de Phone Number [facility] [place] [address] * (ABNORMAL) Basic Metabolic Panel (non-fasting) (08/04/2022 1:58 PM EDT) Glucose 98 65 - 199 mg/dL [facility] Comment:Diabetes: >=200 mg/d L plus symptoms Blood Urea Nitrogen 31(H) 8 - 18 mg/dL [facility] Creatinine 1.37(H) 0.70 - 1.20 mg/dL [facility] Sodium 143 135 - 145 mmol/L [facility] Potassium 4.2 3.5 - 5.0 mmol/L [facility] Comment: Please note: ??Patients with WBC >100,000 may have falsely elevated Potassium levels. ??For accurate Potassium quantification in these patients send serum separator tube (gold top) for subsequent determinations. ??Contact the Clinical Chemistry Laboratory if there are any questions. Chloride 113(H) 98 - 107 mmol/L [facility] Carbon Dioxide 20(L) 22 - 31 mmol/L [facility] Anion Gap 10 5 - 15 mmol/L [facility] Calcium 10.2 8.5 - 10.5 mg/dL [facility] Est Glomerular Filtration Rate 48(L) >=60 mL/min/1. 73 m?? [facility] [...] Spec In Lab Sharmin L Estiven SENIOR ENGINEER CHEMISTRY ORDERAB LES [facility] [address] * Albumin Level (08/04/2022 1:58 PM EDT) Albumin 4.5 3.2 - 5.2 g/dL [facility] Blood 08/04/2022 1:58 PM EDT 08/04/2022 2:04 PM EDT Narrative Resulting Agency Comment Spec In Lab Sharmin L Estiven SENIOR ENGINEER CHEMISTRY ORDERAB LES Performing Organization Address [facility] Co de Phone Number [facility] [place] [address] * Protein/Creatinine Ratio, urine (08/04/2022 1:39 PM EDT) Creatinine, Urine 8 mg/dL [facility] Protein, Urine <6 0 - 12 mg/dL [facility] Protein / Creatinine Ratio, Urine <0.8 ratio [facility] Urine 08/04/2022 1:39 PM EDT 08/04/2022 3:34 PM EDT Narrative Resulting Agency Comment Spec In Lab Sharmin Jean-Baptiste SENIOR ENGINEER URINE ORDERABLES Performing Organization Address [facility] de Phone Number [facility] [place] [address] * Protein Electrophoresis, urine, random (08/04/2022 1:39 PM EDT) Protein, Urine <6 0 - 12 mg/dL [facility] U Albumin 38 % total [facility] Globulin, Urine 62 % total [facility] M1 Band, Urine None Detected [facility] UPEP Comments See Note [facility] Comment: There is no evidence of clonal free light chains in this patient's urine sample. Urine 08/04/2022 1:39 PM EDT 08/04/2022 3:34 PM EDT Narrative Resulting Agency Comment Spec In Lab Sharmin Jean-Baptiste SENIOR ENGINEER URINE ORDERABLES Performing Organization Address [facility] Co de Phone Number [facility] [place] [address] * (ABNORMAL) _Urinalysis with microscopic (08/04/2022 1:39 PM EDT) Glucose, Urine Dipstick Negative Negative mg/dL [facility] Protein, Urine Dipstick Negative Negative mg/dL [facility] Bilirubin, Urine Dipstick Negative Negative mg/dL [facility] Comment: Clinical correlation required for positive Urine Bilirubin results as false positive may occur with some drugs and drug related products. If a false positive is suspected a serum total bilirubin should be considered if clinically indicated. Urobilinogen, Urine Dipstick Normal Normal mg/dL [facility] pH, Urn (dipstick) 7.5 5.0 - 8.0 [facility] Blood, Urine Dipstick Negative Negative mg/dL [facility] Ketone, Urine Dipstick Negative Negative mg/dL [facility] Nitrite, Urine Dipstick Negative Negative [facility] Leukocytes, Urine Dipstick Negative Negative mcL [facility] Appearance, Urine Dipstick Clear Clear [facility] Specific [place] Urine Automated 1.004(L) 1.005 - 1.030 [facility] Color, Urine Dipstick Yellow Yellow [facility] RBC, Urine <1 0 - 4 /HPF [facility] WBC, Urine <1 0 - 5 /HPF [facility] Urine 08/04/2022 1:39 PM EDT 08/04/2022 3:33 PM EDT Narrative Resulting Agency Comment Spec In Lab Sharmin Jean-Baptiste SENIOR ENGINEER URINE ORDERABLES [facility] [place] [address] documented in this encounter Visit Diagnoses Diagnosis Stage 3b chronic kidney disease Hyperparathyroidism Hyperparathyroidism, unspecified Stage 3b chronic kidney disease (CKD) Anemia, unspecified type documented in this encounter Care Teams Power Plant Electrician Relationship Specialty Start Date End [place] [address] [place] [address] PCP - General General Internal Medicine 08/04/22 documented as of this encounter
--- OUTSIDE RECORDS SUMMARY | 2024-04-29 01:58 | XMS_ITS | Encounter Summary ---
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 [place] [address] Referral ID Status Reason Start Date Expiration Date V isits Requested Visits Authorized [id number] Closed Consult, Test & Treat PCP Updated and/or Approved 09/02/2022 09/02/2023 6 6 Encounter Details Date Type Department Care Team (Late st Contact Info) Description 09/02/2022 Transcribe Orders eDH Incoming Referrals [phone] Haylie Steward MD [facility] [place] [address] Urinary incontinence, unspecified type Social [...] Scheduled View Only Radiation Oncology at [address] [phone] 05/02/2024 3:45 PM EST Scheduled View Only Radiation Oncology at [address] [phone] 05/03/2024 1:45 PM EST Scheduled View Only Radiation Oncology at [address] [phone] 05/03/2024 2:15 PM EST Office Visit Radiation Oncology at [address] [phone] Ofe Fonseca MD [facility] [place] [address] 05/05/2024 8:15 AM EST Scheduled View Only Radiation Oncology at [address] [phone] 05/06/2024 12:30 PM EST Scheduled View Only Radiation Oncology at [address] [address] 05/09/2024 12:30 PM EST Scheduled View Only Radiation Oncology at [address] [phone] 05/10/2024 2:30 PM EST Scheduled View Only Radiation Oncology at [address] [phone] 05/10/2024 3:15 PM EST Office Visit Radiation Oncology at [address] [phone] Ofe Fonseca MD [facility] [place] [address] 05/11/2024 2:30 PM EST Scheduled View Only Radiation Oncology at [address] [phone] 05/11/2024 3:15 PM EST Scheduled View Only Radiation Oncology at [address] [phone] Ofe Fonseca MD [facility] [place] [address] 05/12/2024 2:45 PM EST Scheduled View Only Radiation Oncology at [address] [phone] 06/03/2024 3:30 PM EST [place]oint[place] [phone] Mira Hutchison, [facility] [place] [address] 06/23/2024 4:00 PM EST Appointment Mammography/[place] [phone] Miryam Feliciano MD [facility] [place] [address] 07/12/2024 8:00 AM EDT Laboratory Appointment Lab [address] [place] [phone] 07/12/2024 9:30 AM EDT Office Visit Ne[place] [phone] Sharmin Jean-Baptiste, [facility] [place] [address] 07/13/2024 10:30 AM EDT Laboratory Appointment Lab at [facility] [place] On[place] [address] [place] [phone] 07/13/2024 11:30 AM EDT Office Visit Hematology [place] [address] Salena Alvares APRN [facility] [place] [address] 07/13/2024 12:45 PM EDT Appointment Hematology [place] [address] Scheduled Referrals Name Type Priority Associated Diagnoses Orde r Schedule Referral to Urology Outpatient Referral Routine Urinary incontinence, unspecified type Ordered: 09/02/2022 documented as of this encounter Visit Diagnoses Diagnosis Urinary incontinence, unspecified type documented in this encounter Care Teams Filtration Plant Operator Relationship Specialty Start Date [place] [address] PCP - General General Internal Medicine 08/04/22 documented as of this encounter
--- OUTSIDE RECORDS SUMMARY | 2024-04-29 01:58 | XMS_ITS | Encounter Summary ---
Author Organization [facility] [place] [address] Care Team Providers Care Conference Translator Name Role Phone Haylie Steward MD Primary Care Provider + [phone] Reason for Visit * Auth/Cert (Routine) Specialty Diagnoses / Procedures Referred By Contac t Referred To Contact Diagnoses [place] intoxication, accidental or unintentional, initial encounter Procedures EMERGENCY IPI Joaquina Vallejo MD [facility] GENERAL [place] [address] [facility] Referral ID Status Reason Start Date Expiration Date Visits Re quested Visits Authorized [id number] 1 1 Encounter Details Date Type Department Care Team (Latest Contact Info) Description 09/06/2022 8:45 AM EDT Laboratory Appointment Lab [address] [place] [phone] Bipolar 1 disorder Social History Tobacco Use [...] Scheduled View Only Radiation Oncology at [address] [phone] 05/02/2024 3:45 PM EST Scheduled View Only Radiation Oncology at [address] [phone] 05/03/2024 1:45 PM EST Scheduled View Only Radiation Oncology at [address] [phone] 05/03/2024 2:15 PM EST Office Visit Radiation Oncology at [address] [phone] Ofe Fonseca MD [facility] [place] [address] 05/05/2024 8:15 AM EST Scheduled View Only Radiation Oncology at [address] [phone] 05/06/2024 12:30 PM EST Scheduled View Only Radiation Oncology at [address] [phone] 05/09/2024 12:30 PM EST Scheduled View Only Radiation Oncology at [address] [phone] 05/10/2024 2:30 PM EST Scheduled View Only Radiation Oncology at [address] [phone] 05/10/2024 3:15 PM EST Office Visit Radiation Oncology at [address] [phone] Ofe Fonseca MD [facility] DR [place] [address] 05/11/2024 2:30 PM EST Scheduled View Only Radiation Oncology at [address] [phone] 05/11/2024 3:15 PM EST Scheduled View Only Radiation Oncology at [address] [phone] Ofe Fonseca MD [facility] [place] [address] 05/12/2024 2:45 PM EST Scheduled View Only Radiation Oncology at [address] [phone] 06/03/2024 3:30 PM EST Appointment Ultrasound at [place] [phone] Mira Hutchison [employer] [place] [address] 06/23/2024 4:00 PM EST Appointment Mammography/DXA at [place] [phone] Miryam Feliciano MD [facility] [place] [address] 07/12/2024 8:00 AM EDT Laboratory Appointment Lab [address] [place] [phone] 07/12/2024 9:30 AM EDT Office Visit [place] [phone] Sharmin Jean-Baptiste [facility] [place] [address] 07/13/2024 10:30 AM EDT Laboratory Appointment Lab at [facility] Hematology Oncology [address] [place] [phone] 07/13/2024 11:30 AM EDT Office Visit Hematology [place] [phone] Salena Alvares APRN [facility] DR MEDICAL ONCOLOGY [place] [phone] 07/13/2024 12:45 PM EDT Appointment Hematology [place] [phone] documented as of this encounter Procedures Procedure Name Priority Date/Time Associated Diagnosis Comments TSH Routine 09/06/2022 8:52 AM EDT Bipolar 1 disorder LITHIUM LEVEL Routine 09/06/2022 8:52 AM EDT Bipolar 1 disorder documented in this encounter Results * (ABNORMAL) Red Wing level (09/06/2022 8:52 AM EDT) Red Wing 2.16(Criti robbie) 0.60 - 1.20 mmol/L [facility] Comment:Called by: OREN, Read back by: Wilmar Grande, Date/Time:09/06/22 12:59. Blood 09/06/2022 8:52 AM EDT 09/06/2022 9:01 AM EDT Narrative Resulting Agency Comment Spec In Lab Michelet Monge MD CHEMISTRY ORDERABLES [facility] [place] [address] * TSH (09/06/2022 8:52 AM EDT) Thyroid Stimulating Hormone 0.61 0.27 - 4.20 mcIU/mL [facility] Comment: Reference Interval (mcIU/mL): Females: ??First Trimester: 0.23-3.88 ??Second Trimester: 0.22-3.90 ??Third Trimester: 0.44-4.66 Blood 09/06/2022 8:52 AM EDT 09/06/2022 9:01 AM EDT Narrative Resulting Agency Comment Spec In Lab Michelet Monge MD CHEMISTRY ORDERABLES [facility] [address] documented in this encounter Visit Diagnoses Diagnosis Bipolar 1 disorder Bipolar I disorder, most recent episode (or current) unspecified documented in this encounter Care Teams Conference Translator Relationship Specialty Start Date End Date [place] [address] PCP - General General Internal Medicine 08/04/22 documented as of this encounter
--- OUTSIDE RECORDS SUMMARY | 2024-04-29 01:58 | XMS_ITS | Encounter Summary ---
Author Organization [facility] [place] [address] Care Team Providers Care Wood Boatbuilder Name Role Phone Unavailable Primary Care Provider [...] Scheduled View Only Radiation Oncology at [address] [phone] 05/02/2024 3:45 PM EST Scheduled View Only Radiation Oncology at [address] [phone] 05/03/2024 1:45 PM EST Scheduled View Only Radiation Oncology at [address] [phone] 05/03/2024 2:15 PM EST Office Visit Radiation Oncology at [address] [phone] Ofe Fonseca MD [facility] [place] [address] 05/05/2024 8:15 AM EST Scheduled View Only Radiation Oncology at [address] [phone] 05/06/2024 12:30 PM EST Scheduled View Only Radiation Oncology at [address] [phone] 05/09/2024 12:30 PM EST Scheduled View Only Radiation Oncology at [address] [phone] 05/10/2024 2:30 PM EST Scheduled View Only Radiation Oncology at [address] [phone] 05/10/2024 3:15 PM EST Office Visit Radiation Oncology at [address] [phone] Ofe Fonseca MD [facility] [place] [address] 05/11/2024 2:30 PM EST Scheduled View Only Radiation Oncology at [address] [phone] 05/11/2024 3:15 PM EST Scheduled View Only Radiation Oncology at [address] [phone] Ofe Fonseca MD [facility] [place] [address] 05/12/2024 2:45 PM EST Scheduled View Only Radiation Oncology at [address] [phone] 06/03/2024 3:30 PM EST Appoint[place] [phone] Mira Hutchison APRN [facility] [address] 06/23/2024 4:00 PM EST Appointment Mammography/[place] [address] Miryam Feliciano MD [facility] [place] [place] [address] 07/12/2024 8:00 AM EDT Laboratory Appointment Lab [place] [phone] 07/12/2024 9:30 AM EDT Office Visit Ne[place] [phone] Sharmin Jean-Baptiste, [facility] [place] [address] 07/13/2024 10:30 AM EDT Laboratory Appointment Lab at [facility] Hematology Oncology [address] [place] [phone] 07/13/2024 11:30 AM EDT Office Visit Hematology [place] [address] Salena Alvares, [facility] [place] [address] 07/13/2024 12:45 PM EDT Appointment Hematology [place] [phone] documented as of this encounter Visit Diagnoses Not on filedocumented in this encounter
--- OUTSIDE RECORDS SUMMARY | 2024-04-29 01:58 | XMS_ITS | Encounter Summary ---
Author Organization [facility] [place] [address] Care Team Providers Care Mold Changer Name Role Phone Unavailable Primary Care Provider Unavailabl e Encounter Details Date Type Department Care Team (Late st Contact Info) Description 12/26/2020 10:10 AM EDT Laboratory Appointment Lab [address] [place] [phone] Social History Tobacco Use Types Packs/Day Years [...] Scheduled View Only Radiation Oncology at [address] [phone] 05/02/2024 3:45 PM EST Scheduled View Only Radiation Oncology at [address] [phone] 05/03/2024 1:45 PM EST Scheduled View Only Radiation Oncology at [address] [phone] 05/03/2024 2:15 PM EST Office Visit Radiation Oncology at [address] [phone] Ofe Fonseca MD [facility] [place] [address] 05/05/2024 8:15 AM EST Scheduled View Only Radiation Oncology at [address] [phone] 05/06/2024 12:30 PM EST Scheduled View Only Radiation Oncology at [address] [phone] 05/09/2024 12:30 PM EST Scheduled View Only Radiation Oncology at [address] [phone] 05/10/2024 2:30 PM EST Scheduled View Only Radiation Oncology at [address] [phone] 05/10/2024 3:15 PM EST Office Visit Radiation Oncology at [address] [phone] Ofe Fonseca MD [facility] [place] [address] 05/11/2024 2:30 PM EST Scheduled View Only Radiation Oncology at [address] [phone] 05/11/2024 3:15 PM EST Scheduled View Only Radiation Oncology at [address] [phone] Ofe Fonseca MD [facility] [place] [address] 05/12/2024 2:45 PM EST Scheduled View Only Radiation Oncology at [address] [phone] 06/03/2024 3:30 PM EST [place] [address] Mira Hutchison APRN [facility] [place] [address] 06/23/2024 4:00 PM EST Appointment Mammography/DXA at [place] [phone] Miryam Feliciano MD [facility] [place] [address] 07/12/2024 8:00 AM EDT Laboratory Appointment Lab [address] [place] [phone] 07/12/2024 9:30 AM EDT Office Visit Nephrology Hypertension at [place] [phone] Sharmin Jean-Baptiste, [facility] [place] [address] 07/13/2024 10:30 AM EDT Laboratory Appointment Lab at [facility] [place] Oncology [address] [place] [phone] 07/13/2024 11:30 AM EDT Office Visit Hematology [place] [phone] Salena Alvares, [facility] [place] [address] 07/13/2024 12:45 PM EDT Appointment Hematology [place] [phone] documented as of this encounter Procedures Procedure Name Priority Date/Time Associated Diagnosis Comments LITHIUM LEVEL Routine 12/26/2020 10:46 AM EDT COMPREHENSIVE METABOLIC PANEL Routine 12/26/2020 10:46 AM EDT documented in this encounter Results * (ABNORMAL) Comprehensive metabolic panel (non-fasting) (12/26/2020 10:46 AM EDT) Glucose 85 65 - 199 mg/dL [facility] Comment:Diabetes: >=200 mg/d L plus symptoms Blood Urea Nitrogen 30(H) 8 - 18 mg/dL [facility] Creatinine 1.37(H) 0.70 - 1.20 mg/dL [facility] Sodium 142 135 - 145 mmol/L [facility] Potassium 4.2 3.5 - 5.0 mmol/L [facility] Comment: Please note: ??Patients with WBC >100,000 may have falsely elevated Potassium levels. ??For accurate Potassium quantification in these patients send serum separator tube (gold top) for subsequent determinations. ??Contact the Clinical Chemistry Laboratory if there are any questions. Chloride 111(H) 98 - 107 mmol/L [facility] Carbon Dioxide 21(L) 22 - 31 mmol/L [facility] Anion Gap 10 5 - 15 mmol/L [facility] Calcium 10.3 8.5 - 10.5 mg/dL [facility] Protein, Total 7.4 6.1 - 8.0 gm/dL [facility] Albumin 4.6 3.2 - 5.2 gm/dL [facility] Aspartate Aminotransferase 17 0 - 30 unit/L [facility] Alanine Aminotransferase 19 0 - 30 unit/L [facility] Alkaline Phosphatase 99 35 - 105 unit/L [facility] Bilirubin, Total 0.2 0.2 - 1.3 mg/dL [facility] Comment:rechecked-ds Est Glomerular Filtration Rate 46(L) >=60 mL/min/1. 73 m?? [facility] Comment: This patient? s estimated glomerular [...] Laboratory CHEMISTRY CHUY APONTE Performing Organization Address [facility] Co de Phone Number [facility] [place] [address] * (ABNORMAL) Roff level (12/26/2020 10:46 AM EDT) Roff 1.26(H) <=1.20 mmol/L [facility] Comment: Therapeutic concentration range: 0.60-1.20 mmol/L Critical value: greater than 1.50 mmol/L Ref: ??Goldfrank? s Toxicologic Emergencies 6th ed 1998; p. 967 Blood Venous Draw / Unknown 12/26/2020 10:46 AM EDT 12/26/2020 11:06 AM EDT Narrative Resulting Agency Comment Spec In Lab Dr [facility] CHEMISTRY CHUY APONTE Performing Organization Address [facility] Co de Phone Number [facility] [place] [address] documented in this encounter Visit Diagnoses Not on filedocumented in this encounter
--- OUTSIDE RECORDS SUMMARY | 2024-04-29 01:58 | XMS_ITS | Encounter Summary ---
[facility] [place] [address] Care Team Providers Care Desk Interviewer Name Role Phone Unavailable Primary Care Provider Unavailabl e Encounter Details Date Type Department Care Team (Latest Contact Info) Description 06/25/2022 9:10 AM EST Laboratory Appointment Lab [address] [place] [phone] Bipolar affective disorder, remission status unspecified Social [...] Scheduled View Only Radiation Oncology at [address] [phone] 05/02/2024 3:45 PM EST Scheduled View Only Radiation Oncology at [address] [phone] 05/03/2024 1:45 PM EST Scheduled View Only Radiation Oncology at [address] [phone] 05/03/2024 2:15 PM EST Office Visit Radiation Oncology at [address] [phone] Ofe Fonseca MD [facility] [place] [address] 05/05/2024 8:15 AM EST Scheduled View Only Radiation Oncology at [address] [phone] 05/06/2024 12:30 PM EST Scheduled View Only Radiation Oncology at [address] [phone] 05/09/2024 12:30 PM EST Scheduled View Only Radiation Oncology at [address] [phone] 05/10/2024 2:30 PM EST Scheduled View Only Radiation Oncology at [address] [phone] 05/10/2024 3:15 PM EST Office Visit Radiation Oncology at [address] [phone] Ofe Fonseca MD [facility] [place] [address] 05/11/2024 2:30 PM EST Scheduled View Only Radiation Oncology at [address] [phone] 05/11/2024 3:15 PM EST Scheduled View Only Radiation Oncology at [address] [phone] Ofe Fonseca MD [facility] [place] [address] 05/12/2024 2:45 PM EST Scheduled View Only Radiation Oncology at [address] [phone] 06/03/2024 3:30 PM EST Appointment [place] [address] Mira Hutchison APRN [facility] [place] [address] 06/23/2024 4:00 PM EST Appointment Mammography/DXA at [place] [phone] Miryam Feliciano MD [facility] [place] [place] [address] 07/12/2024 8:00 AM EDT Laboratory Appointment Lab [address] [place] [phone] 07/12/2024 9:30 AM EDT Office Visit Nephrology [place] [phone] Sharmin Jean-Baptsite, [facility] [place] [address] 07/13/2024 10:30 AM EDT Laboratory Appointment Lab at [facility] Hematology Oncology [address] [place] [phone] 07/13/2024 11:30 AM EDT Office Visit Hematology [place] [phone] Salena Alvares, [facility] [place] [address] 07/13/2024 12:45 PM EDT Appointment Hematology [place] [phone] documented as of this encounter Procedures Procedure [...] documented in this encounter Results * (ABNORMAL) Haynes level (06/25/2022 9:49 AM EST) Haynes 1.21(H) 0.60 - 1.20 mmol/L [facility] Blood 06/25/2022 9:49 AM EST 06/25/2022 9:55 AM EST Narrative Resulting Agency Comment Spec In Lab Michelet Monge MD CHEMISTRY ORDERABLES Performing Organization Address [facility] Co de Phone Number [facility] [place] [address] * TSH (06/25/2022 9:49 AM EST) Pathologist [facility] [place] Thyroid Stimulating Hormone 4.10 0.27 - 4.20 mcIU/mL [facility] Comment: Reference Interval (mcIU/mL): Females: ??First Trimester: 0.23-3.88 ??Second Trimester: 0.22-3.90 ??Third Trimester: 0.44-4.66 Blood 06/25/2022 9:49 AM EST 06/25/2022 9:55 AM EST Narrative Resulting Agency Comment Spec In Lab Michelet Monge MD CHEMISTRY ORDERABLES Performing Organization Address [facility] Co de Phone Number [facility] [place] [address] * (ABNORMAL) Comprehensive metabolic panel (non-fasting) (06/25/2022 9:49 AM EST) Glucose 94 65 - 199 mg/dL [facility] Comment:Diabetes: >=200 mg/d L plus symptoms Blood Urea Nitrogen 30(H) 8 - 18 mg/dL [facility] Creatinine 1.51(H) 0.70 - 1.20 mg/dL [facility] Sodium 143 135 - 145 mmol/L [facility] Potassium 4.4 3.5 - 5.0 mmol/L [facility] Comment: Please note: ??Patients with WBC >100,000 may have falsely elevated Potassium levels. ??For accurate Potassium quantification in these patients send serum separator tube (gold top) for subsequent determinations. ??Contact the Clinical Chemistry Laboratory if there are any questions. Chloride 112(H) 98 - 107 mmol/L [facility] Carbon Dioxide 23 22 - 31 mmol/L [facility] Anion Gap 8 5 - 15 mmol/L [facility] Calcium 10.8(H) 8.5 - 10.5 mg/dL [facility] Protein, Total 6.9 6.1 - 8.0 g/dL [facility] Albumin 4.4 3.2 - 5.2 g/dL [facility] Aspartate Aminotransferase 12 0 - 30 unit/L [facility] Alanine Aminotransferase 14 0 - 30 unit/L [facility] Alkaline Phosphatase 110(H) 35 - 105 unit/L [facility] Bilirubin, Total <0.2(L) 0.2 - 1.3 mg/dL [facility] Est Glomerular Filtration Rate 42(L) >=60 mL/min/1. 73 m?? [facility] Comment: This patient's estimated GFR [...] In Lab Michelet Monge MD CHEMISTRY ORDERABLES [facility] [place] [address] * Lipid Panel (Reflex Direct LDL) (06/25/2022 9:49 AM EST) Cholesterol, Total 202 mg/dL [facility] Comment: Lower Risk: <200 mg/dL Average Risk: 200-239 mg/dL Higher Risk: >cj=436 mg/dL Triglyceride 97 mg/dL [facility] Comment: Average Risk/Lower Risk: <150 mg/dL Borderline High Risk: 150-199 mg/dL High Risk: 200-499 mg/dL Very High Risk: >uy=560 mg/dL HDL Cholesterol 83 mg/dL [facility] Comment: Males: ?? Higher Risk: <40 mg/dL Females: ?? Higher Risk: <50 mg/dL LDL Cholesterol 100 mg/dL [facility] Comment: Lowest Risk: <100 mg/dL Lower Risk: 100-129 mg/dL Borderline High Risk: 130-159 mg/dL High Risk: 160-189 mg/dL Very High Risk: >fe=297 mg/dL Cholesterol/HDL Ratio 2.4 ratio [facility] Lipid Interpretation See Note [facility] Comment: Lipid management should be guided by a patient? s ASCVD risk, goals and preferences. ACC/AHA Guidelines recommend high intensity statin if clinical ASCVD or LDL greater than or equal to 190 mg/dL. http://Fareye.com/ENA-RTN-Ntjebehho Adults aged 40-75 with LDL 70-189 mg/dL should have their 10 year ASCVD risk estimated with the ACC/AHA ASCVD risk building estimator http://tools.acc.org/GDLCM-Empj-Bdmtwxlmj/ Statin should be discussed if risk greater [...] In Lab Michelet Monge MD [place] [address] documented in this encounter Visit Diagnoses Diagnosis Bipolar affective disorder, remission status unspecified documented in this encounter
[2024-04-29 22:40] LABS: Estradiol 13 pg/mL (See Note)
[2024-04-29 22:43] LABS: FSH 2.5 mIU/mL (See Note)
== END 2024-04-29 01:49 | disposition home or self-care (01) ==
LOC: LBO 01:48
PROVIDERS: PCP Legal Medicine; Visit Provider Student in an Organized Health Care Education/Training Program
DX: C50.312 Malignant neoplasm of lower-inner quadrant of left female breast (principal); Z17.0 Estrogen receptor positive status [ER+]
CPT/HCPCS: 36415; 82670; 83001